=== PATIENT | male | born 1940 | race Caucasian/White ===

== ENCOUNTER 2016-07-09 14:40 | Inpatient (IN) | payer OTHER ==
[~2016-07-09] VITALS: Ht 170.2 cm; Wt 130.0 kg
[~2016-07-09 14:40] MED LIST: ALL300 PO; APR50 PO; ASPI81TA28 PO; CHOL2000 PO; CLX/20 PO; CRG3125 PO; LPT10 PO; NRV/5 PO; PANT20TA PO; SYN50 PO
[2016-07-09] MEDS ORDERED: ASPIRIN 81 MG CHEW PO STA (15:17)
[2016-07-09] MEDS ORDERED: SODIUM CHLORIDE 0.9% 1000ML 1,000 ML IV STA (15:17)
[2016-07-09] MEDS ORDERED: ALBUT/IPRATROP 3MG/0.5MG NEB 3 ML VIAL INH STA (15:17)
--- NOTE | 2016-07-09 15:20 | EMERGENCY ROOM VISIT NOTE ---
History Report prepared by Nelaibdarion: Shelly Aguiar Under the Supervision of: Dr. Dat Curiel D.O. First contact with patient: 15:07 Chief Complaint: COUGH Stated Complaint: COLD, COUGH, CHEST/BACK PAIN, SOB Nursing Triage Summary: Pt presents with nasal congestion, prod cough of yellow sputum, sob, chills, lower back pain. Sx began last Fri. History of Present Illness The patient is a 76 year old male who presents to the Emergency Room with complaints of a worsening cough for the past 5 days. He reports he began experiencing cold symptoms with nasal congestion, chills and a productive cough , but now he is experiencing shortness of breath with the cough and lower back pain. He reports he can normally walk without difficulty, but no he gets short of breath "just walking to the door". The patient admits to a history of pneumonia and reports he received a flu shot this year and the pneumococcal vaccine. He denies any history of GA's. He denies any increased swelling in his legs. His primary care physician is Dr. Stout at [facility]. He states he tried to get an appointment with Dr. Stout today, but could not get in anywhere due to the clinics being busy after the holidays. 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 A total of ten systems were reviewed and were otherwise negative. Past Medical & Surgical Medical Problems: (1) Anemia, unspecified (2) ASCVD (arteriosclerotic cardiovascular disease) (3) BPH without obstruction/lower urinary tract symptoms (4) Carpal tunnel syndrome (5) Diastolic heart failure (6) GERD (gastroesophageal reflux disease) (7) Gout (8) Hypertension (9) Insomnia (10) LEFT BB BLOCK NEC (11) Major depression (12) Obstructive sleep apnea on CPAP (13) Osteoarthrosis (14) Restless leg syndrome (15) SOB (shortness of breath) Surgical Problems: (1) H/O cataract removal with insertion of prosthetic lens (2) H/O sinus surgery (3) History of bilateral knee arthroplasty (4) History of total right hip arthroplasty (5) Hx of cholecystectomy Family History Hypertension Social History Smoking Status: Never Smoker Drug Use: none Marital Status: Housing Status: lives with family Occupation Status: retired Current/Historical Medications Scheduled Allopurinol (Allopurinol), 300 MG PO DAILY Amlodipine Besylate (Amlodipine Besylate), 5 MG PO DAILY Aspirin (Aspirin Ec), 81 MG PO DAILY Atorvastatin (Atorvastatin Calcium), 5 MG PO DAILY Carvedilol (Carvedilol), 3.125 MG PO BID Cholecalciferol (Vitamin D3), 2,000 INTER.UNIT PO DAILY Citalopram (Citalopram Hydrobromide), 20 MG PO DAILY Hydralazine Hcl (Apresoline), 25 MG PO BID Levothyroxine Sodium (Synthroid), 50 MCG PO DAILY Scheduled PRN Meloxicam (Mobic), 15 MG PO DAILY PRN for Pain Allergies Coded Allergies: No Known Allergies (Verified , 07/09/16) Physical Exam Vital Signs Date Time Temp Pulse Resp B/P Pulse Ox O2 Delivery O2 Flow Rate FiO2 07/09/16 18:28 65 22 167/90 91 Room Air 07/09/16 17:55 85 07/09/16 16:40 66 07/09/16 16:12 95 Room Air 07/09/16 15:59 97 07/09/16 14:50 96 Room Air 07/09/16 14:50 37.0 77 24 183/91 96 Room Air Physical Exam GENERAL: Awake, alert, well-appearing, in no acute distress HENT: Normocephalic, atraumatic. Oropharynx unremarkable. Nasal crusting. EYES: Normal conjunctiva. Sclera non-icteric. NECK: Supple. No nuchal rigidity. FROM. No JVD. RESPIRATORY: No respiratory distress. Lung sounds diminished throughout, no rails or rhonchi. CARDIAC: Regular rate, normal rhythm. Extremities warm and well perfused. Pulses equal. ABDOMEN: Soft, non-distended. No tenderness to palpation. No rebound or guarding. No masses. RECTAL: Deferred. MUSCULOSKELETAL: Chest examination reveals no tenderness. The back is symmetrical on inspection without obvious abnormality. There is no CVA tenderness to palpation. No joint edema. LOWER EXTREMITIES: Calves are equal size bilaterally and non-tender. +1 pitting edema. No discoloration. NEURO: Normal sensorium. No sensory or motor deficits noted. SKIN: No rash or jaundice noted. Medical Decision & Procedures ER Provider Diagnostic Interpretation: This X-Ray was reviewed and interpreted by myself and the radiologist. CHEST 2 VIEWS ROUTINE IMPRESSION: Chronic change. No acute process. Electronically signed by: Amadeo Manzo M.D. 07/09/2016 5:05 PM Laboratory Results 07/09/16 15:45 Red Blood Count 4.24, Mean Corpuscular Volume 92.0, Mean Corpuscular Hemoglobin 32.3, Mean Corpuscular Hemoglobin Concent 35.1, Mean Platelet Volume 11.3, Neutrophils (%) (Auto) 70.7, Lymphocytes (%) (Auto) 15.9, Monocytes (%) (Auto) 8.6, Eosinophils (%) (Auto) 4.1, Basophils (%) (Auto) 0.6, Neutrophils # (Auto) 5.04, Lymphocytes # (Auto) 1.13, Monocytes # (Auto) 0.61, Eosinophils # (Auto) 0.29, Basophils # (Auto) 0.04 07/09/16 15:45 Test 07/09/16 15:45 07/09/16 15:59 07/09/16 17:40 White Blood Count 7.12 K/uL (4.8-10.8) Red Blood Count 4.24 M/uL (4.7-6.1) Hemoglobin 13.7 g/dL (14.0-18.0) Hematocrit 39.0 % (42-52) Mean Corpuscular Volume 92.0 fL (80-100) Mean Corpuscular Hemoglobin 32.3 pg (25-34) Mean Corpuscular Hemoglobin Concent 35.1 g/dl (32-36) Platelet Count 146 K/uL (130-400) Mean Platelet Volume 11.3 fL (7.4-10.4) Neutrophils (%) (Auto) 70.7 % Lymphocytes (%) (Auto) 15.9 % Monocytes (%) (Auto) 8.6 % Eosinophils (%) (Auto) 4.1 % Basophils (%) (Auto) 0.6 % Neutrophils # (Auto) 5.04 K/uL (1.4-6.5) Lymphocytes # (Auto) 1.13 K/uL (1.2-3.4) Monocytes # (Auto) 0.61 K/uL (0.11-0.59) Eosinophils # (Auto) 0.29 K/uL (0-0.5) Basophils # (Auto) 0.04 K/uL (0-0.2) RDW Standard Deviation 47.8 fL (36.4-46.3) RDW Coefficient of Variation 14.1 % (11.5-14.5) Immature Granulocyte % (Auto) 0.1 % Immature Granulocyte # (Auto) 0.01 K/uL (0.00-0.02) Anion Gap 9.0 mmol/L (3-11) Est Creatinine Clear Calc Drug Dose 81.7 ml/min Estimated GFR () 84.4 Estimated GFR (Non- 72.8 BUN/Creatinine Ratio 16.7 (10-20) Calcium Level 7.4 mg/dl (8.5-10.1) Total Bilirubin 0.6 mg/dl (0.2-1) Aspartate Amino Transf (AST/SGOT) 20 U/L (15-37) Alanine Aminotransferase (ALT/SGPT) 23 U/L (12-78) Alkaline Phosphatase 63 U/L (45-117) Total Protein 6.4 gm/dl (6.4-8.2) Albumin 3.5 gm/dl (3.4-5.0) Globulin 2.9 gm/dl (2.5-4.0) Albumin/Globulin Ratio 1.2 (0.9-2) Bedside Troponin I 0.020 ng/ml (0-0.045) FG-Zrm-Q-Type Natriuretic Peptide 487 pg/ml (0-1800) Urine Color YELLOW Urine Appearance CLEAR (CLEAR) Urine pH 5.5 (4.5-7.5) Urine Specific [place] 1.023 (1.000-1.030) Urine Protein TRACE (NEG) Urine Glucose (UA) NEG (NEG) Urine Ketones NEG (NEG) Urine Occult Blood NEG (NEG) Urine Nitrite NEG (NEG) Urine Bilirubin NEG (NEG) Urine Urobilinogen NEG (NEG) Urine Leukocyte Esterase NEG (NEG) Urine WBC (Auto) 1-5 /hpf (0-5) Urine RBC (Auto) 0-4 /hpf (0-4) Urine Hyaline Casts (Auto) 1-5 /lpf (0-5) Urine Epithelial Cells (Auto) 20-30 /lpf (0-5) Urine Bacteria (Auto) NEG (NEG) Laboratory results reviewed by me Medications Administered Medications (Trade) Dose Ordered Sig/Nini Route Start Time Stop Time Status Last Admin Dose Admin Albuterol/ Ipratropium (Duoneb) 3 ml NOW STAT INH 07/09/16 15:17 07/09/16 15:20 DC 07/09/16 16:24 3 ML Aspirin 81 mg 81 mg NOW STAT PO 07/09/16 15:17 07/09/16 15:20 DC 07/09/16 16:24 81 MG Sodium Chloride (Nss 1000ml) 1,000 ml @ 150 mls/hr Q6H40M STAT IV 07/09/16 15:17 07/09/16 19:34 DC 07/09/16 15:17 150 MLS/HR ECG Indication: SOB/dyspnea Rate (beats per minute): 66 Rhythm: sinus rhythm Findings: 1st degree AV block, LBBB, other (negative scarbossa criteria, otherwise no acute findings) Comparison ECG Date: no prior available ED Course 1510: The patient was evaluated in room B4. A complete history and physical exam was performed. 1517: NSS 1000 ml @ 150 mls/hr IV, Aspirin 81 mg PO, DuoNeb 3 ml INH. 1655: I reevaluated the patient. He is currently in X-Ray. I will try back later. 1718: I reevaluated the patient. He is feeling a little better and his Oxygen saturation is looking good. Nursing will have him do an ambulation trial shortly. 1750: Nursing informed me the patient was able to ambulate about 10 feet with assistance. 1825: I discussed the patients case with Doreen Lozano PA-C, [facility] Hospitalist. The patient will be further evaluated. Medical Decision Prior records/ancillary studies reviewed. Triage Nursing notes reviewed. Additional history obtained from the family. The patient's history was concerning for respiratory difficulties. Differential diagnosis: Etiologies such as infections, reactive airway disease, pneumonia, pneumothorax , COPD, CHF, cardiac ischemia, pulmonary embolism, musculoskeletal, gastrointestinal, as well as others were entertained. MDM: 76-year-old male comes here with 2 day complaint of progressively worsening dyspnea. He states he's had URI symptoms with nasal congestion and cough that is nonproductive to yellow mucus. The shortness of breath also comes when he lays down and try to get some sleep. He has been unable to get much sleep the last 2 days. He presents to the emergency department with normoxia at rest. However has hypoxia down to less than 86% with minimal movement. Feels better after a neb. Chest x-ray is unrevealing for pneumonia lab work is significant for mild elevation in natruretic peptide and troponin. Cannot rule out CHF or ACS. Discussed with hospitalist for admission. The patient's presentation and history is c/w the impression provided. A partial list of DDx that has been considered is listed above. By the evaluation outlined above other emergent etiologies such as those listed in the differential, as well as others, were deemed relatively unlikely. The patient has been informed about today's findings. All questions were answered to satisfaction and understanding. They are pleased with the care provided. Patient education and return instructions were discussed as per my usual and the patient was discharged in stable condition as agreed upon by the patient. The patient was referred for close follow-up and informed that they will need to call to schedule appointment during the next business hours. The chart was completed utilizing a scribe and [employer] Speech voice recognition software. Utilizing these services results in errors at time as they are imperfect. Grammatical errors, random word insertions, pronoun errors, and incomplete sentences are an occasional consequence of this system due to software limitations, ambient noise, and hardware issues. Any formal questions or concerns about the content, text, or information contained within the body of this dictation should be directly addressed to the physician for clarification. Consults Time Called: 1819 Consulting Physician: [facility]-C, [facility] Returned Call: 1824 I discussed the patients case with [facility]en [facility]-C, [facility]. The patient will be further evaluated. Impression Primary Impression: Respiratory failure with hypoxia Additional Impressions: Bronchitis, probable CHF, probable ACS Scribe Attestation The scribe's documentation has been prepared under my direction and personally reviewed by me in its entirety. I confirm that the note above accurately reflects all work, treatment, procedures, and medical decision making performed by me. Departure Information Dispostion Being Evaluated By Hospitalist Referrals No Doctor, Assigned (PCP) Patient Instructions A Signature Page, My [facility]
[2016-07-09 16:16] LABS: BASO % 0.6 %; BASO ABS # 0.04 K/uL (0-0.2); COMPLETE YES; EOS % 4.1 %; IG% 0.1 %; LYMPH % 15.9 %; LYMPH ABS # 1.13 K/uL (1.2-3.4); MEAN CORPUSCULAR HEMOGLOBIN 32.3 pg (25-34); MEAN CORPUSCULAR HGB CONC 35.1 g/dl (32-36); MEAN PLATELET VOLUME 11.3 fL (7.4-10.4); MONO % 8.6 %; NEUT % 70.7 %; PLATELET COUNT 146 K/uL (130-400); RED BLOOD COUNT 4.24 M/uL (4.7-6.1); WHITE BLOOD COUNT 7.12 K/uL (4.8-10.8)
[2016-07-09 16:19] LABS: POINT OF CARE TROPONIN I 0.02 ng/ml (0-0.045)
[2016-07-09 16:35] LABS: BUN/CREATININE RATIO 16.7 (10-20); CALCIUM 7.4 mg/dl (8.5-10.1)
[2016-07-09 16:38] LABS: ALB/GLOB RATIO 1.2 (0.9-2)
--- NOTE | 2016-07-09 17:07 | DIAGNOSTIC IMAGING REPORT ---
CHEST 2 VIEWS ROUTINE CLINICAL HISTORY: EVALUATE RESPIRATORY DISTRESS. DYSPNEA dyspnea COMPARISON STUDY: 02/04/2016 FINDINGS: Mild stable cardia megaly. Stable tortuosity thoracic aorta. Diaphragms smooth. Lungs are clear. IMPRESSION: Chronic change. No acute process. Electronically signed by: Amadeo Manzo M.D. 07/09/2016 5:05 PM
[2016-07-09] MEDS ORDERED: APR25 PO (17:23)
[2016-07-09 18:15] LABS: URINE APPEARANCE CLEAR (CLEAR); URINE BILIRUBIN NEG (NEG); URINE COLOR YELLOW; URINE EPITHELIAL CELL AUTO 20-30 /lpf (0-5); URINE NITRITE NEG (NEG); URINE PH 5.5 (4.5-7.5); URINE SPECIFIC GRAVITY 1.023 (1.000-1.030); UROBILINOGEN NEG (NEG)
[2016-07-09 18:17] LABS: MANUAL MICROSCOPIC REQUIRED? NO; REVIEW REQ? NO
[2016-07-09] MEDS ORDERED: MELOXICAM 7.5 MG TAB PO PRN (19:00)
[2016-07-09] MEDS ORDERED: OPTIRAY 320 IV PRN (19:00)
[2016-07-09] MEDS ORDERED: NITROGLYCERIN 0.4 MG SL PER TAB CHARGE SL PRN (19:00)
[2016-07-09] MEDS ORDERED: ONDANSETRON INJ 2 MG/ML 2 ML VIAL IV PRN (19:00)
[2016-07-09] MEDS ORDERED: ACETAMINOPHEN 325 MG TAB PO PRN (19:00)
[2016-07-09] MEDS ORDERED: MELO15TA4 PO (19:02)
--- NOTE | 2016-07-09 19:27 | History and Physical ---
History & Physical Date & Time of Service: Jul 09, 2016 at 19:04 Chief Complaint: Cold, Cough, Chest/Back Pain, Sob Primary Care Physician: Musa Stout M.D. History of Present Illness Source: patient This is a 76 y/o male with PMHx of CKD stage 3, Diastolic CHF, NAHEED on CPAP HS, Hypothyroidism, HTN, Dyslipidemia and other problems as outlined below who presents to the ED c/o worsening SOB x 1 day. Pt reports that yesterday he developed SOB that is aggravated with exertion. At baseline he is able to ambulate far distances with no SOB however today he was only able to take 10 steps without stopping to catch his breath. Sxs are assoc with body aches, 4 days of a cough that is productive of thick yellow sputum and nasal congestion. He has been taking an OTC "cold medicine" that has not been offering any relief. Pt has no history of sick contacts. He got his flu shot this year and has no history of tobacco use. No PMHx of asthma or COPD. Pt denies fever/chills , diaphoresis, chest pain, palpitations, wheezing, abd pain, N/V, bowel or bladder issues, LE edema, calf pain, lightheadedness/dizziness. In the ED, pt is hypoxic to 85% on room air with ambulation to bathroom. He is afebrile with no leukocytosis. K+ 3.0. Ca 7.4. BNP WNL. Trop 0.020. CXR negative for acute process. EKG 1* AV block with LAD and LBBB. Pt appears stable and will be admitted for further evaluation and treatment. Past Medical/Surgical History Medical Problems: (1) Anemia, unspecified Status: Chronic (2) ASCVD (arteriosclerotic cardiovascular disease) Status: Chronic (3) BPH without obstruction/lower urinary tract symptoms Status: Chronic (4) Carpal tunnel syndrome Status: Chronic (5) Diastolic heart failure Status: Chronic (6) GERD (gastroesophageal reflux disease) Status: Chronic (7) Gout Status: Chronic (8) Hypertension Status: Chronic (9) Insomnia Status: Chronic (10) LEFT BB BLOCK NEC Status: Chronic (11) Major depression Status: Chronic (12) Obstructive sleep apnea on CPAP Status: Chronic (13) Osteoarthrosis Status: Chronic (14) Restless leg syndrome Status: Chronic Surgical Problems: (1) H/O cataract removal with insertion of prosthetic lens Status: Resolved (2) H/O sinus surgery Status: Resolved (3) History of bilateral knee arthroplasty Status: Resolved (4) History of total right hip arthroplasty Status: Resolved (5) Hx of cholecystectomy Status: Resolved Family History Hypertension Social History Smoking Status: Never Smoker Alcohol Use: none Drug Use: none Marital Status: Housing status: lives with family Occupational Status: retired Immunizations History of Influenza Vaccine: Yes Influenza Vaccine Date: Apr 06, 2012 History of Tetanus Vaccine?: Unknown Tetanus Immunization Date: Jul 10, 2004 History of Pneumococcal: Yes Pneumococcal Date: Jul 10, 2007 History of Hepatitis B Vaccine: Unknown Multi-Drug Resistant Organisms History of MDRO: No Allergies Coded Allergies: No Known Allergies (Verified , 07/09/16) Home Medications Scheduled Allopurinol (Allopurinol), 300 MG PO DAILY Amlodipine Besylate (Amlodipine Besylate), 5 MG PO DAILY Aspirin (Aspirin Ec), 81 MG PO DAILY Atorvastatin (Atorvastatin Calcium), 5 MG PO DAILY Carvedilol (Carvedilol), 3.125 MG PO BID Cholecalciferol (Vitamin D3), 2,000 INTER.UNIT PO DAILY Citalopram (Citalopram Hydrobromide), 20 MG PO DAILY Hydralazine Hcl (Apresoline), 25 MG PO BID Levothyroxine Sodium (Synthroid), 50 MCG PO DAILY Scheduled PRN Meloxicam (Mobic), 15 MG PO DAILY PRN for Pain Review of Systems Constitutional: + fatigue, + problem reported (body aches), No chills, No fever , No sweats, No weakness Eyes: No worsening of vision ENT: + nasal symptoms, No sore throat Respiratory: + cough, + dyspnea on exertion, + shortness of breath, + sputum, No dyspnea at rest, No wheezing Cardiovascular: No chest pain, No claudication, No edema, No palpitations Abdomen: No constipation, No diarrhea, No nausea, No pain, No vomiting Musculoskeletal: No calf pain, No swelling Genitourinary - Male: No dysuria Neurologic: No weakness Psychiatric: No depression symptoms Endocrine: + fatigue Hematologic / Lymphatic: No abnormal bleeding/bruising Integumentary: No new/changing skin lesions Physical Exam Vital Signs Date Time Temp Pulse Resp B/P Pulse Ox O2 Delivery O2 Flow Rate FiO2 07/09/16 18:28 65 22 167/90 91 Room Air 07/09/16 17:55 85 07/09/16 16:40 66 07/09/16 16:12 95 Room Air 07/09/16 15:59 97 07/09/16 14:50 96 Room Air 07/09/16 14:50 37.0 77 24 183/91 96 Room Air General Appearance: WD/WN, no apparent distress, + obese, + pertinent finding ( Pt is sitting in bed in NAD) Head: normocephalic, atraumatic Eyes: normal inspection ENT: hearing grossly normal Neck: supple Respiratory/Chest: chest non-tender, lungs clear, normal breath sounds, no respiratory distress, + pertinent finding (no wheezing or crackles noted ) Cardiovascular: regular rate, rhythm, no murmur Abdomen/GI: normal bowel sounds, non tender, soft Back: normal inspection Extremities/Musculoskelatal: normal inspection, no calf tenderness, + swelling (1+ edema to bilat LE) Neurologic/Psych: alert, normal mood/affect, oriented x 3 Skin: normal color, warm/dry Diagnostics Laboratory Results Results Past 24 Hours Test 07/09/16 15:45 07/09/16 15:59 07/09/16 17:40 Range/Units White Blood Count 7.12 4.8-10.8 K/uL Red Blood Count 4.24 4.7-6.1 M/uL Hemoglobin 13.7 14.0-18.0 g/dL Hematocrit 39.0 42-52 % Mean Corpuscular Volume 92.0 80-100 fL Mean Corpuscular Hemoglobin 32.3 25-34 pg Mean Corpuscular Hemoglobin Concent 35.1 32-36 g/dl Platelet Count 146 130-400 K/uL Mean Platelet Volume 11.3 7.4-10.4 fL Neutrophils (%) (Auto) 70.7 % Lymphocytes (%) (Auto) 15.9 % Monocytes (%) (Auto) 8.6 % Eosinophils (%) (Auto) 4.1 % Basophils (%) (Auto) 0.6 % Neutrophils # (Auto) 5.04 1.4-6.5 K/uL Lymphocytes # (Auto) 1.13 1.2-3.4 K/uL Monocytes # (Auto) 0.61 0.11-0.59 K/uL Eosinophils # (Auto) 0.29 0-0.5 K/uL Basophils # (Auto) 0.04 0-0.2 K/uL RDW Standard Deviation 47.8 36.4-46.3 fL RDW Coefficient of Variation 14.1 11.5-14.5 % Immature Granulocyte % (Auto) 0.1 % Immature Granulocyte # (Auto) 0.01 0.00-0.02 K/uL Sodium Level 145 136-145 mmol/L Potassium Level 3.0 3.5-5.1 mmol/L Chloride Level 107 98-107 mmol/L Carbon Dioxide Level 29 21-32 mmol/L Anion Gap 9.0 3-11 mmol/L Blood Urea Nitrogen 17 7-18 mg/dl Creatinine 1.00 0.60-1.40 mg/dl Est Creatinine Clear Calc Drug Dose 81.7 ml/min Estimated GFR () 84.4 Estimated GFR (Non- 72.8 BUN/Creatinine Ratio 16.7 10-20 Random Glucose 107 70-99 mg/dl Calcium Level 7.4 8.5-10.1 mg/dl Total Bilirubin 0.6 0.2-1 mg/dl Aspartate Amino Transf (AST/SGOT) 20 15-37 U/L Alanine Aminotransferase (ALT/SGPT) 23 12-78 U/L Alkaline Phosphatase 63 45-117 U/L Total Protein 6.4 6.4-8.2 gm/dl Albumin 3.5 3.4-5.0 gm/dl Globulin 2.9 2.5-4.0 gm/dl Albumin/Globulin Ratio 1.2 0.9-2 Bedside Troponin I 0.020 0-0.045 ng/ml EI-Rwz-[id number]-Type Natriuretic Peptide 487 0-1800 pg/ml Urine Color YELLOW Urine Appearance CLEAR CLEAR Urine pH 5.5 4.5-7.5 Urine Specific [place] 1.023 1.000-1.030 Urine Protein TRACE NEG Urine Glucose (UA) NEG NEG Urine Ketones NEG NEG Urine Occult Blood NEG NEG Urine Nitrite NEG NEG Urine Bilirubin NEG NEG Urine Urobilinogen NEG NEG Urine Leukocyte Esterase NEG NEG Urine WBC (Auto) 1-5 0-5 /hpf Urine RBC (Auto) 0-4 0-4 /hpf Urine Hyaline Casts (Auto) 1-5 0-5 /lpf Urine Epithelial Cells (Auto) 20-30 0-5 /lpf Urine Bacteria (Auto) NEG NEG Diagnostic Radiology CXR IMPRESSION: Chronic change. No acute process. EKG EKG: Sinus rhythm with 1* AV block, LAD and LBBB; when compared with EKG from PVCs are no longer present Impression Assessment and Plan WORSENING SOB SECONDARY TO POSSIBLE BRONCHITIS; R/O PE pt presents with body aches, prod cough and worsening SOB -admit to telemetry -hypoxic with exertion on room air; pt is afebrile with no leukocytosis -CXR negative for acute process -obtain CT chest to r/o PE -Initial trop negative; cont to monitor with serial [place] -BNP WNL; obtain echo to evaluate CHF -check flu PCR -start doxy and duonebs -supplemental O2 if needed -monitor HYPOKALEMIA -K+ 3.0; replete -continue to monitor daily HYPOCALCEMIA -Ca+ 7.4 -check vitamin D level -cont vitamin D supplementation -monitor daily CKD STAGE 3 -creatinine is at baseline around 1.0 -continue to monitor with daily prp and avoid nephrotoxic agents when able DIASTOLIC CHF -mild LE edema; BNP WNL -echo 2012 EF 55-60% with mild LVH, mild MR and grade 1 diastolic dysfunction; repeat echo -cont hydralazine and BB -low sodium diet -monitor I&Os and daily weights NAHEED on CPAP -initial setup of CPAP HYPOTHYROIDISM -cont levothyroxine DEPRESSION -stable -cont Celexa HTN -BP stable -cont carvedilol, Norvasc and hydralazine -monitor DYSLIPIDEMIA -cont statin DVT PROPHYLAXIS -subq heparin CODE STATUS -FULL CODE status per discussion with patient upon admission DISPO -Pt seen in collaboration with Dr. Jeffery. Please see his addendum for further details. Thanks! Agree with above H and P. Briefly 76M presents with cough going on for few days and today felt sob on exertion and dizzy and came to ER. in Er was hypoxic in room air. Currently resting comfortably and hemodynamically stable. No chest pain or sob.Afebrile. p/e Ge alert and awake. Moaning CVS s 1 and s2 heard regular no murmurs' Rs cta b/l no wheezing no crackles abd benign ext no edema a/p sob bronchitis? will to ct chest to rule out PE empirically start on abx, nebs NAHEED on cpap VTE Prophylaxis VTE Risk Assessment Done? Y/N: Yes Risk Level: Moderate
[2016-07-09] MEDS ORDERED: POTASSIUM CHLORIDE 10 MEQ TABCR PO SCH (20:00)
[2016-07-09 20:20] VITALS: BP 214/97; PULSE 70; TEMP 37; O2SAT 97; Ht 170.2 cm; Wt 130.0 kg
[2016-07-09] MEDS: ALBUT/IPRATROP 3MG/0.5MG NEB 3 ML VIAL INH SCH (20:30)
--- NOTE | 2016-07-09 22:16 | DIAGNOSTIC IMAGING REPORT ---
CT ANGIOGRAPHY OF THE CHEST, PULMONARY EMBOLUS PROTOCOL CLINICAL HISTORY: Chest pain, shortness of breath and cough. COMPARISON STUDY: Chest CT August 17, 2014. TECHNIQUE: Following IV administration of 119 mL of [id number]-[id number], helical axial images of the chest were obtained utilizing the 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 protocol. Maximal intensity projections and sagittal and coronal reformats were viewed on an independent 3D workstation. IV contrast was administered without complication. CT DOSE: 744.41 mGy.cm FINDINGS: No pulmonary emboli are identified. There is no evidence of thoracic aortic dissection. The heart is moderately enlarged. There is moderate coronary artery calcification. There is no pericardial effusion. No pneumothorax or pleural effusion is present. No enlarged thoracic lymph nodes are present. There are several tree-in-bud nodules within the right upper lobe and a few small ill-defined nodules within the right lower lobe shown on axial image 117 of 296. The central airways are patent. The bony thorax and upper abdomen are unremarkable. The gallbladder is surgically absent. IMPRESSION: 1. No pulmonary emboli identified. 2. Minimal tree-in-bud nodules within the right upper lobe and a few small ill-defined nodules within the right lower lobe. The findings suggest a mild infectious process such as bronchiolitis. A follow-up chest CT in 6 months to ensure resolution is recommended. 3. Moderate cardiomegaly and moderate coronary artery calcification. Electronically signed by: Kyler Lim M.D. 07/09/2016 10:14 PM
[2016-07-09 22:26] LABS: INFLUENZA A PCR Neg for Influ A (NEG); INFLUENZA B PCR Neg for Influ B (NEG)
[2016-07-09] MEDS: DOXYCYCLINE HYCLATE 100 MG CAP PO SCH (22:53)
[2016-07-09] MEDS: POTASSIUM CHLR 10 MEQ / WTR 10 MEQ in PREMIXED WATER 100 ML IV SCH (22:54)
[2016-07-09] MEDS: CARVEDILOL 3.125 MG TAB PO SCH (22:54)
[2016-07-09 23:06] LABS: PROTHROMBIN TIME (PATIENT) 10.5 SECONDS (9.0-12.0)
[2016-07-09 23:08] VITALS: PULSE 84; O2SAT 95
[2016-07-10] VITALS (12 sets, daily range): BP systolic 167–211; BP diastolic 81–101; PULSE 66–94; TEMP 36.4–36.9; O2SAT 92–96
[2016-07-10] MEDS: HEPARIN SOD 5000 UNIT/0.5 ML CARP SQ SCH ×4 (00:22→22:11)
[2016-07-10] MEDS: POTASSIUM CHLR 10 MEQ / WTR 10 MEQ in PREMIXED WATER 100 ML IV SCH ×2 (00:22→01:29)
[2016-07-10 04:15] LABS: HEMATOCRIT 38.2 % (42-52); MEAN CELL VOLUME 90.7 fL (80-100); MEAN CORPUSCULAR HEMOGLOBIN 31.8 pg (25-34); MEAN CORPUSCULAR HGB CONC 35.1 g/dl (32-36); MEAN PLATELET VOLUME 10.7 fL (7.4-10.4); PLATELET COUNT 141 K/uL (130-400); RED BLOOD COUNT 4.21 M/uL (4.7-6.1); WHITE BLOOD COUNT 9.52 K/uL (4.8-10.8)
[2016-07-10 04:33] LABS: BLOOD UREA NITROGEN 12 mg/dl (7-18); BUN/CREATININE RATIO 12.5 (10-20); CALCIUM 7.3 mg/dl (8.5-10.1); CARBON DIOXIDE 29 mmol/L (21-32); CHLORIDE 106 mmol/L (98-107); GLUCOSE 100 mg/dl (70-99); POTASSIUM 3.3 mmol/L (3.5-5.1); SODIUM 145 mmol/L (136-145)
[2016-07-10] MEDS: LEVOTHYROXINE 50 MCG TAB PO SCH (05:54)
[2016-07-10] MEDS ORDERED: POTASSIUM CHLORIDE 20 MEQ TABCR PO STA (07:29)
[2016-07-10] MEDS: DOXYCYCLINE HYCLATE 100 MG CAP PO SCH ×2 (07:34→19:50)
[2016-07-10] MEDS: CHOLECALCIFEROL 1000 INTER.UNIT TAB PO SCH (07:35)
[2016-07-10] MEDS: CITALOPRAM 20 MG TAB PO SCH (07:36)
[2016-07-10] MEDS: ALLOPURINOL 300 MG TAB PO SCH (07:36)
[2016-07-10] MEDS: ASPIRIN 81 MG ECTAB PO SCH (07:36)
[2016-07-10] MEDS: AMLODIPINE BESYLATE 5 MG TAB PO SCH (07:37)
[2016-07-10] MEDS: ATORVASTATIN 10 MG TAB PO SCH (07:40)
[2016-07-10] MEDS: ALBUT/IPRATROP 3MG/0.5MG NEB 3 ML VIAL INH SCH ×4 (07:43→21:27)
[2016-07-10] MEDS: CEFTRIAXONE SOD INJ 1 GM in DEXTROSE 5% ADD-VANTAGE 50ML 50 ML IV SCH (08:15)
[2016-07-10] MEDS: CARVEDILOL 3.125 MG TAB PO SCH ×2 (08:15→19:50)
[2016-07-10] MEDS ORDERED: HydrALAZINE HCL 20 MG/ML VIAL IV. PRN (11:00)
--- NOTE | 2016-07-10 19:54 | Progress Note ---
Internal Med Progress Note Date of Service: Jul 10, 2016. Provider Documentation: SUBJECTIVE: sob improving has some dry cough afebrile no chest pain no nausea OBJECTIVE: Vital Signs-as noted below Exam: General-alert and oriented x 3 ENT-normal hearing Neck-no neck masses Lungs-cta b/l no wheezing or crackles Heart-s1 and s2 heard regular rate and rhythm, no murmurs Abdomen-soft bowel sounds present non tender no distension Extremities-no edema no erythema Neuro-alert and awake moves extremities Lab data as noted below. ASSESSMENT & PLAN: WORSENING SOB SECONDARY TO POSSIBLE BRONCHITIS; R/O PE CTA chest no PE but shows bronchiolitis on rocephin and doxycyline will add low dose steroids nebs close monitor HYPOKALEMIA replaced HYPOCALCEMIA -Ca+ 7.4 vitamin D 25. adequate continue vitamin d supplementation will start on calcium supplements CKD STAGE 3 -creatinine is at baseline around 1.0 will monitor DIASTOLIC CHF -mild LE edema; BNP WNL echo 2012 EF 55-60% with mild LVH, mild MR and grade 1 diastolic dysfunction; will follow repeat echo will cont hydralazine and BB low sodium diet will monitor I&Os and daily weights NAHEED on CPAP initial setup of CPAP HYPOTHYROIDISM on levothyroxine DEPRESSION stable on Celexa HTN will continue home meds iv hydralazine prn DYSLIPIDEMIA on statin DVT PROPHYLAXIS subq heparin CODE STATUS FULL CODE DISPO to be determined Vital Signs: Date Time Temp Pulse Resp B/P Pulse Ox O2 Delivery O2 Flow Rate FiO2 07/10/16 16:16 77 16 95 Room Air 07/10/16 15:43 36.8 81 20 171/93 92 Room Air 07/10/16 15:40 Room Air 07/10/16 12:00 Room Air 07/10/16 11:51 36.5 66 18 167/81 95 Room Air 07/10/16 11:14 72 16 95 Room Air 07/10/16 08:42 67 20 174/94 95 Room Air 73 180/89 07/10/16 08:00 Room Air 07/10/16 07:47 36.9 73 18 194/101 94 Room Air 07/10/16 07:43 70 16 96 Room Air 07/10/16 04:58 36.7 68 18 196/94 93 2.0 195/92 07/10/16 04:00 Room Air 07/10/16 00:29 36.7 70 20 174/86 93 Room Air 07/10/16 00:00 Room Air 07/09/16 23:08 84 18 95 Room Air 07/09/16 20:20 37.0 70 20 214/97 97 Room Air Lab Results: Results Past 24 Hours Test 07/09/16 20:40 07/09/16 21:45 07/09/16 22:07 07/09/16 22:38 Range/Units Influenza Type A (RT-PCR) Neg for Influ A NEG Influenza Type B (RT-PCR) Neg for Influ B NEG Creatine Kinase MB Ratio 0-3.0 Creatine Kinase MB 1.2 0.5-3.6 ng/ml Troponin I 0.029 0-0.045 ng/ml Prothrombin Time 10.5 9.0-12.0 SECONDS Prothromb Time International Ratio 1.0 0.9-1.1 Activated Partial Thromboplast Time 26.2 21.0-31.0 SECONDS Partial Thromboplastin Ratio 1.0 Test 07/10/16 03:45 07/10/16 04:07 Range/Units Creatine Kinase MB Ratio 0-3.0 White Blood Count 9.52 4.8-10.8 K/uL Red Blood Count 4.21 4.7-6.1 M/uL Hemoglobin 13.4 14.0-18.0 g/dL Hematocrit 38.2 42-52 % Mean Corpuscular Volume 90.7 80-100 fL Mean Corpuscular Hemoglobin 31.8 25-34 pg Mean Corpuscular Hemoglobin Concent 35.1 32-36 g/dl RDW Standard Deviation 46.5 36.4-46.3 fL RDW Coefficient of Variation 14.0 11.5-14.5 % Platelet Count 141 130-400 K/uL Mean Platelet Volume 10.7 7.4-10.4 fL Sodium Level 145 136-145 mmol/L Potassium Level 3.3 3.5-5.1 mmol/L Chloride Level 106 98-107 mmol/L Carbon Dioxide Level 29 21-32 mmol/L Anion Gap 10.0 3-11 mmol/L Blood Urea Nitrogen 12 7-18 mg/dl Creatinine 1.00 0.60-1.40 mg/dl Est Creatinine Clear Calc Drug Dose 81.8 ml/min Estimated GFR () 84.4 Estimated GFR (Non- 72.8 BUN/Creatinine Ratio 12.5 10-20 Random Glucose 100 70-99 mg/dl Calcium Level 7.3 8.5-10.1 mg/dl Creatine Kinase MB 1.1 0.5-3.6 ng/ml Troponin I 0.026 0-0.045 ng/ml 25-Hydroxy Vitamin D Total 24.9 30-100 ng/ml
[2016-07-10] MEDS: METHYLPREDNISOLONE IV 20 MG in SYRINGE 0 ML IV SCH (22:10)
[2016-07-11] VITALS (14 sets, daily range): BP systolic 125–205; BP diastolic 74–105; PULSE 76–99; TEMP 36.6–37.2; O2SAT 91–94
[2016-07-11] MEDS ORDERED: LORAZEPAM INJ 0.5 MG in SYRINGE 0.25 ML IV STA (00:13)
[2016-07-11] MEDS ORDERED: AMLODIPINE BESYLATE 5 MG TAB PO ONE (00:15)
[2016-07-11] MEDS: LEVOTHYROXINE 50 MCG TAB PO SCH (06:02)
[2016-07-11] MEDS: HEPARIN SOD 5000 UNIT/0.5 ML CARP SQ SCH ×3 (06:03→21:59)
[2016-07-11] MEDS: ALBUT/IPRATROP 3MG/0.5MG NEB 3 ML VIAL INH SCH ×2 (07:52→11:37)
[2016-07-11] MEDS: CEFTRIAXONE SOD INJ 1 GM in DEXTROSE 5% ADD-VANTAGE 50ML 50 ML IV SCH (08:00)
[2016-07-11] MEDS: DOXYCYCLINE HYCLATE 100 MG CAP PO SCH ×2 (08:01→20:41)
[2016-07-11] MEDS: ALLOPURINOL 300 MG TAB PO SCH (08:01)
[2016-07-11] MEDS: AMLODIPINE BESYLATE 5 MG TAB PO SCH (08:01)
[2016-07-11] MEDS: ASPIRIN 81 MG ECTAB PO SCH (08:01)
[2016-07-11] MEDS: ATORVASTATIN 10 MG TAB PO SCH (08:02)
[2016-07-11] MEDS: CITALOPRAM 20 MG TAB PO SCH (08:02)
[2016-07-11] MEDS: CHOLECALCIFEROL 1000 INTER.UNIT TAB PO SCH (08:03)
[2016-07-11] MEDS: CARVEDILOL 3.125 MG TAB PO SCH (08:03)
[2016-07-11] MEDS: METHYLPREDNISOLONE IV 20 MG in SYRINGE 0 ML IV SCH ×2 (08:13→20:42)
--- NOTE | 2016-07-11 15:05 | ECHOCARDIOGRAM REPORT ---
*NOTICE TO RECEIVING LIBERTARIAN AGENCY This information is strictly Confidential and protected under [place] law. [place] law prohibits you from making any further disclosure of this information unless further disclosure is expressly permitted by the written consent of the person to whom it pertains or is authorized by law. A general authorization for the release of medical or other information is not sufficient for this purpose. Hospital accepts no responsibility if the information is made available to any other person, INCLUDING THE PATIENT. Interpretation Summary * Name: LLOYD CURTIS Study Date: 07/11/2016 01:01 PM BP: 155/90 mmHg * Patient Location: [facility]\S\[id number]\S\2 HR: 91 * : 1940 (M/d/yyy) Gender: Male Height: 67 in * Age: 76 yrs Ethnicity: GA Weight: 283 lb * Ordering Physician: Doreen Eubanks * Referring Physician: Self, Referred * Performed By: Lauren Hernandez RDCS * * Reason For Study: SOB * BSA: 2.3 m2 * History: SOB * -- Conclusions -- * Normal LV chamber size with mild concentric LVH. * Low normal LV systolic function, EF 50-55%. * Septal motion is consistent with conduction abnormality, otherwise, no segmental left ventricular wall motion abnormalities are noted. * Grade I diastolic dysfunction. * No significant valvular pathology. * Mild left atrial enlargement. Procedure Details * A contrast injection of Definity was performed to improve assessment of LV function. * Contrast was injected into an intravenous site in the left arm. * One vial of Definity ultrasound contrast was diluted in normal saline to a total volume of 10 ml. A total of '2' ml of solution was administered during imaging. * Lot # [id number] of Definity utilized for procedure. * Expiration date 1 DEC 21. * The attending nurse who injected the contrast agent was CHRISTINA CATES RN. Left Ventricle * The left ventricle is normal in size. * There is mild concentric left ventricular hypertrophy. * Ejection Fraction = 50-55%. * Left ventricular systolic function is low normal. * No segmental left ventricular wall motion abnormalities are noted. * Septal motion is consistent with conduction abnormality. Right Ventricle * The right ventricle is not well visualized. * The right ventricular systolic function is normal as assessed by tricuspid annular plane systolic excursion (TAPSE) (normal >1.5 cm). Atria * The left atrium is mildly dilated. * Right atrium not well visualized. * There is no evidence of atrial septal defect, but resolution does not allow assessment for a patent foramen ovale. Mitral Valve * The mitral valve is normal in structure and function. Tricuspid Valve * The tricuspid valve is not well visualized. * There is no tricuspid stenosis. * No tricuspid regurgitation. Aortic Valve * The aortic valve is not well visualized. * No hemodynamically significant valvular aortic stenosis. * There is no significant aortic regurgitation. Pulmonic Valve * The pulmonary valve is not well seen, but the Doppler examination is normal without significant regurgitation or stenosis. Great Vessels * The aortic root is normal size. Pericardium/Pleural * There is no pericardial effusion. Left Ventricular Diastolic Function * Grade I diastolic dysfunction, (abnormal relaxation pattern). MMode 2D Measurements and Calculations Ao root diam 3.4 cm Ao root area 9.0 cm\S\2 LA dimension 4.9 cm LA/Ao 1.4 LVAd ap4 42.8 cm\S\2 LVLd ap4 9.8 cm EDV(MOD-sp4) 149.8 ml EDV(sp4-el) 158.8 ml LVAs ap4 27.2 cm\S\2 LVLs ap4 8.6 cm ESV(MOD-sp4) 70.8 ml ESV(sp4-el) 73.2 ml EF(MOD-sp4) 52.8 % EF(sp4-el) 53.9 % LVAd ap2 40.6 cm\S\2 LVLd ap2 9.8 cm EDV(MOD-sp2) 131.2 ml EDV(sp2-el) 142.6 ml LVAs ap2 23.7 cm\S\2 LVLs ap2 8.0 cm ESV(MOD-sp2) 56.3 ml ESV(sp2-el) 59.2 ml EF(MOD-sp2) 57.1 % EF(sp2-el) 58.5 % LVLd %diff 0 % EDV(MOD-bp) 142.7 ml LVLs %diff -6.64 % ESV(MOD-bp) 62.8 ml EF(MOD-bp) 56.0 % SV(MOD-sp4) 79.1 ml SI(MOD-sp4) 33.7 ml/m\S\2 SV(MOD-sp2) 74.9 ml SI(MOD-sp2) 32.0 ml/m\S\2 SV(MOD-bp) 79.9 ml SI(MOD-bp) 34.1 ml/m\S\2 SV(sp4-el) 85.7 ml SI(sp4-el) 36.6 ml/m\S\2 SV(sp2-el) 83.3 ml SI(sp2-el) 35.6 ml/m\S\2 Doppler Measurements and Calculations Ao V2 max 150.7 cm/sec Ao max PG 9.1 mmHg Ao max PG (full) 2.7 mmHg LV V1 max PG 6.4 mmHg LV V1 max 126.7 cm/sec
[2016-07-11] MEDS: IPRATROPIUM BROMIDE/ALBUTEROL respimat INH INH SCH ×2 (17:20→20:41)
--- NOTE | 2016-07-11 19:11 | Progress Note ---
Internal Med Progress Note Date of Service: Jul 11, 2016. Provider Documentation: SUBJECTIVE: sob much improved no chest pain has some dry cough afebrile resting comfortably OBJECTIVE: Vital Signs-as noted below Exam: General-alert and oriented x 3 ENT-normal hearing Neck-no neck masses Lungs-cta b/l no wheezing or crackles Heart-s1 and s2 heard regular rate and rhythm, no murmurs Abdomen-soft bowel sounds present non tender no distension Extremities-no edema no erythema Neuro-alert and awake moves extremities Lab data as noted below. ASSESSMENT & PLAN: WORSENING SOB SECONDARY TO POSSIBLE BRONCHITIS; R/O PE CTA chest no PE but shows bronchiolitis on Rocephin and doxycycline on low dose steroids improving HYPOKALEMIA replaced HYPOCALCEMIA -Ca+ 7.4 vitamin D 25. adequate continue vitamin d supplementation will start on calcium supplements CKD STAGE 3 -creatinine is at baseline around 1.0 will monitor DIASTOLIC CHF -mild LE edema; BNP WNL echo 2012 EF 55-60% with mild LVH, mild MR and grade 1 diastolic dysfunction; will follow repeat echo will cont hydralazine and BB low sodium diet echo unremarkable will monitor I&Os and daily weights NAHEED on CPAP initial setup of CPAP HYPOTHYROIDISM on levothyroxine DEPRESSION stable on Celexa HTN will continue home meds increased coreg to 6.25mg bid iv hydralazine prn DYSLIPIDEMIA on statin DVT PROPHYLAXIS subq heparin CODE STATUS FULL CODE DISPO ambulate in [address] possible d/c in am if stable Vital Signs: Date Time Temp Pulse Resp B/P Pulse Ox O2 Delivery O2 Flow Rate FiO2 07/11/16 16:00 37.2 79 18 174/82 93 Room Air 07/11/16 14:48 76 167/85 07/11/16 12:00 36.7 91 22 125/80 93 Room Air 155/90 07/11/16 12:00 Room Air 07/11/16 11:37 95 14 92 Room Air 07/11/16 08:21 20 177/105 07/11/16 08:07 99 14 91 Room Air 07/11/16 08:00 Room Air 07/11/16 08:00 36.6 96 20 158/104 91 Room Air 07/11/16 04:40 159/74 07/11/16 04:00 Room Air 07/11/16 03:02 36.8 95 21 171/88 91 Nasal Cannula 2.0 07/11/16 02:26 89 177/75 07/11/16 00:09 82 205/97 07/11/16 00:00 Room Air 07/10/16 23:32 36.9 79 23 197/91 92 Room Air 07/10/16 21:29 94 16 93 Room Air 07/10/16 20:00 Room Air 07/10/16 19:35 36.4 74 18 211/83 93 Room Air 208/86
[2016-07-11] MEDS: CARVEDILOL 6.25 MG TAB PO SCH (20:11)
[2016-07-11] MEDS ORDERED: LORAZEPAM INJ 0.5 MG in SYRINGE 0.75 ML IV SCH (20:15)
[2016-07-11] MEDS: CALCIUM CARBONATE 500 MG CHEWABLE PO SCH (20:41)
[2016-07-12] VITALS (8 sets, daily range): BP systolic 164–179; BP diastolic 61–93; PULSE 69–77; TEMP 36.4–37.1; O2SAT 90–95
[2016-07-12] MEDS: HydrALAZINE HCL 20 MG/ML VIAL IV. PRN ×2 (05:57→11:40)
[2016-07-12] MEDS: HEPARIN SOD 5000 UNIT/0.5 ML CARP SQ SCH (05:58)
[2016-07-12] MEDS: LEVOTHYROXINE 50 MCG TAB PO SCH (05:58)
[2016-07-12 07:42] LABS: MEAN CELL VOLUME 91.3 fL (80-100); MEAN CORPUSCULAR HEMOGLOBIN 31.6 pg (25-34); MEAN CORPUSCULAR HGB CONC 34.6 g/dl (32-36); MEAN PLATELET VOLUME 11.9 fL (7.4-10.4); PLATELET COUNT 186 K/uL (130-400); RED BLOOD COUNT 4.49 M/uL (4.7-6.1)
[2016-07-12] MEDS: IPRATROPIUM BROMIDE/ALBUTEROL respimat INH INH SCH ×2 (08:57→13:17)
[2016-07-12] MEDS: CHOLECALCIFEROL 1000 INTER.UNIT TAB PO SCH (08:58)
[2016-07-12] MEDS: DOXYCYCLINE HYCLATE 100 MG CAP PO SCH (08:58)
[2016-07-12] MEDS: CARVEDILOL 6.25 MG TAB PO SCH (08:58)
[2016-07-12] MEDS: ASPIRIN 81 MG ECTAB PO SCH (08:59)
[2016-07-12] MEDS: AMLODIPINE BESYLATE 5 MG TAB PO SCH (08:59)
[2016-07-12] MEDS: ATORVASTATIN 10 MG TAB PO SCH (08:59)
[2016-07-12] MEDS: CALCIUM CARBONATE 500 MG CHEWABLE PO SCH (08:59)
[2016-07-12] MEDS: CITALOPRAM 20 MG TAB PO SCH (08:59)
[2016-07-12] MEDS: ALLOPURINOL 300 MG TAB PO SCH (08:59)
[2016-07-12] MEDS: METHYLPREDNISOLONE IV 20 MG in SYRINGE 0 ML IV SCH (09:00)
[2016-07-12] MEDS: CEFTRIAXONE SOD INJ 1 GM in DEXTROSE 5% ADD-VANTAGE 50ML 50 ML IV SCH (09:00)
[2016-07-12] MEDS ORDERED: AMLO-114 PO (13:45)
[2016-07-12] MEDS ORDERED: PRED10TA PO (13:45)
[2016-07-12] MEDS ORDERED: DXY100 PO (13:45)
[2016-07-12] MEDS ORDERED: IPRA1AER2 INH (13:45)
[2016-07-12] MEDS ORDERED: TUMS PO (13:45)
[2016-07-12] MEDS ORDERED: HYDR-4717 PO (13:45)
[2016-07-12] MEDS ORDERED: CEFU1TAB36 PO (13:45)
[2016-07-12] MEDS ORDERED: CRG625 PO (13:45)
--- NOTE | 2016-07-12 13:51 | Discharge Instructions ---
Discharge Instructions Admission Reason for Admission: SOB Discharge Discharge Diagnosis / Problem: bronchiolitis. Discharge Goals Goal(s): Decrease discomfort, Improve function Activity Recommendations Activity Limitations: resume your previous activity . Instructions / Follow-Up Instructions / Follow-Up FOLLOWUP WITH FAMILY DOCTOR Musa Hussein M.D. ON Jul AT 12:50PM. CLOSE FOLLOWUP OF BLOOD PRESSURE WITH FAMILY DOCTOR. BLOOD PRESSURE MEDICATIONS AT DISCHARGE: AMLODIPINE (NORVASC) 10MG ONCE DAILY HYDRALAZINE 50MG THREE TIMES DAILY COREG 6.25MG TWICE DAILY. REPEAT CT SCAN OF CHEST IN 6 MONTHS WITH FAMILY DOCTOR FOR RESOLUTION OF : Minimal tree-in-bud nodules within the right upper lobe and a few small ill-defined nodules within the right lower lobe. FOLLOW CALCIUM LEVELS ( LOW CALCIUM) IN 1-2 MONTHS WITH FAMILY DOCTOR. Current Hospital Diet Patient's current hospital diet: Low Sodium Diet (2gm Na) Discharge Diet Recommended Diet: AHA Diet (Heart Healthy) Pending Studies Studies pending at discharge: no Medical Emergencies . Who to Call and When: Medical Emergencies: If at any time you feel your situation is an emergency, please call 911 immediately. . Non-Emergent Contact Non-Emergency issues call your: Primary Care Provider . . "Provider Documentation" section prepared by Abimael Jeffery. VTE Core Measure Inpt VTE Proph given/why not?: Unfractionated heparin SQ
--- NOTE | 2016-07-12 19:23 | Progress Note ---
Internal Med Progress Note Date of Service: Jul 12, 2016. Provider Documentation: SUBJECTIVE: sob much improved denies chest pain afebrile cough improved want to go home OBJECTIVE: Vital Signs-as noted below Exam: General-alert and oriented x 3 ENT-normal hearing Neck-no neck masses Lungs-cta b/l no wheezing or crackles Heart-s1 and s2 heard regular rate and rhythm, no murmurs Abdomen-soft bowel sounds present non tender no distension Extremities-no edema no erythema Neuro-alert and awake moves extremities Lab data as noted below. ASSESSMENT & PLAN: WORSENING SOB SECONDARY TO POSSIBLE BRONCHITIS; R/O PE CTA chest no PE but shows bronchiolitis on Rocephin and doxycycline on low dose steroids improved d/jong on doxycycline, cefuroxime, Combivent, steroid taper HYPOKALEMIA replaced HYPOCALCEMIA -Ca+ 7.4 vitamin D 25. adequate continue vitamin d supplementation started on calcium supplements f/u with pcp. CKD STAGE 3 -creatinine is at baseline around 1.0 will monitor DIASTOLIC CHF -mild LE edema; BNP WNL echo 2012 EF 55-60% with mild LVH, mild MR and grade 1 diastolic dysfunction; will follow repeat echo will cont hydralazine and BB low sodium diet echo unremarkable will monitor I&Os and daily weights stable NAHEED on CPAP initial setup of CPAP HYPOTHYROIDISM on levothyroxine DEPRESSION stable on Celexa HTN will continue home meds increased coreg to 6.25mg bid and increased amlodipine to 10mg daily on hydralazine 50mg tid close followup with pcp DYSLIPIDEMIA on statin discharged home Vital Signs: Date Time Temp Pulse Resp B/P Pulse Ox O2 Delivery O2 Flow Rate FiO2 07/12/16 14:01 36.7 69 18 95 Room Air 07/12/16 13:18 36.7 69 18 177/87 95 Room Air 07/12/16 12:00 93 Room Air 07/12/16 08:07 93 Room Air 07/12/16 07:28 36.4 72 19 173/93 93 Room Air 07/12/16 06:27 168/72 07/12/16 05:20 36.9 77 16 179/72 94 Room Air 07/12/16 04:00 Room Air 07/12/16 00:23 37.1 76 16 164/61 90 Room Air 07/12/16 00:00 Room Air 07/11/16 20:02 37.0 92 18 178/82 94 Room Air 07/11/16 20:00 93 Room Air 07/11/16 19:47 37.0 92 18 94 Room Air Lab Results: Results Past 24 Hours Test 07/12/16 07:15 Range/Units White Blood Count 14.80 4.8-10.8 K/uL Red Blood Count 4.49 4.7-6.1 M/uL Hemoglobin 14.2 14.0-18.0 g/dL Hematocrit 41.0 42-52 % Mean Corpuscular Volume 91.3 80-100 fL Mean Corpuscular Hemoglobin 31.6 25-34 pg Mean Corpuscular Hemoglobin Concent 34.6 32-36 g/dl RDW Standard Deviation 46.2 36.4-46.3 fL RDW Coefficient of Variation 13.8 11.5-14.5 % Platelet Count 186 130-400 K/uL Mean Platelet Volume 11.9 7.4-10.4 fL
--- NOTE | 2016-07-12 19:31 | Discharge Summary ---
Discharge Summary Admission Date: Jul 09, 2016 at 18:56 Discharge Date: Jul 12, 2016 Discharge Disposition: Home Principal Diagnosis: SOB BRONCHIOLITIS Secondary Diagnoses/Problems: (1) Anemia, unspecified Status: Chronic (2) ASCVD (arteriosclerotic cardiovascular disease) Status: Chronic (3) BPH without obstruction/lower urinary tract symptoms Status: Chronic (4) Carpal tunnel syndrome Status: Chronic (5) Diastolic heart failure Status: Chronic (6) GERD (gastroesophageal reflux disease) Status: Chronic (7) Gout Status: Chronic (8) Hypertension Status: Chronic (9) Insomnia Status: Chronic (10) LEFT BB BLOCK NEC Status: Chronic (11) Major depression Status: Chronic (12) Obstructive sleep apnea on CPAP Status: Chronic (13) Osteoarthrosis Status: Chronic (14) Restless leg syndrome Status: Chronic Procedures: CTA CHEST: 1. No pulmonary emboli identified. 2. Minimal tree-in-bud nodules within the right upper lobe and a few small ill-defined nodules within the right lower lobe. The findings suggest a mild infectious process such as bronchiolitis. A follow-up chest CT in 6 months to ensure resolution is recommended. 3. Moderate cardiomegaly and moderate coronary artery calcification. ECHO: Normal LV chamber size with mild concentric LVH. * Low normal LV systolic function, EF 50-55%. * Septal motion is consistent with conduction abnormality, otherwise, no segmental left ventricular wall motion abnormalities are noted. * Grade I diastolic dysfunction. * No significant valvular pathology. * Mild left atrial enlargement. Medication Reconciliation New Medications: Amlodipine (Norvasc) 10 Mg Tab 10 MG PO DAILY, #30 TAB 2 Refills Cefuroxime Axetil (Cefuroxime Axetil) 500 Mg Tab 1 TAB PO BID for 7 Days, #14 TAB Hydralazine Hcl (Apresoline) 50 Mg Tab 50 MG PO TID for 30 Days, #90 TAB 2 Refills Prednisone (Prednisone) 10 Mg Tab 20 MG PO UD, #6 TAB PREDNISONE 20MG PO DAILY X 2 DAYS THEN PREDNSIONE 10MG PO DAILY X 2 DAYS AND STOP Calcium Carbonate (Tums) 500 Mg Chew 500 MG PO BID, #60 2 Refills Carvedilol (Carvedilol) 6.25 Mg Tab 6.25 MG PO BID, #60 TAB 2 Refills Doxycycline Hyclate (Doxycycline Hyclate) 100 Mg Cap 100 MG PO BID for 7 Days, #14 CAP Ipratropium-Albuterol (Combivent Respimat) 1 Aer Aer 1 PUFFS INH QID, #1 2 Refills Continued Medications: Allopurinol (Allopurinol) 300 Mg Tab 300 MG PO DAILY Aspirin (Aspirin Ec) 81 Mg Tab 81 MG PO DAILY Atorvastatin (Atorvastatin Calcium) 10 Mg Tab 5 MG PO DAILY Cholecalciferol (Vitamin D3) 2,000 Unit Cap 2000 INTER.UNIT PO DAILY Citalopram (Citalopram Hydrobromide) 20 Mg Tab 20 MG PO DAILY Levothyroxine Sodium (Synthroid) 50 Mcg Tab 50 MCG PO DAILY Meloxicam (Mobic) 15 Mg Tab 15 MG PO DAILY PRN for Pain, TAB Discontinued Medications: Amlodipine Besylate (Amlodipine Besylate) 5 Mg Tab 5 MG PO DAILY Carvedilol (Carvedilol) 3.125 Mg Tab 3.125 MG PO BID Hydralazine Hcl (Apresoline) 25 Mg Tab 25 MG PO BID, TAB Admission Information HPI (per Admitting provider): This is a 76 y/o male with PMHx of CKD stage 3, Diastolic CHF, NAHEED on CPAP HS, Hypothyroidism, HTN, Dyslipidemia and other problems as outlined below who presents to the ED c/o worsening SOB x 1 day. Pt reports that yesterday he developed SOB that is aggravated with exertion. At baseline he is able to ambulate far distances with no SOB however today he was only able to take 10 steps without stopping to catch his breath. Sxs are assoc with body aches, 4 days of a cough that is productive of thick yellow sputum and nasal congestion. He has been taking an OTC "cold medicine" that has not been offering any relief. Pt has no history of sick contacts. He got his flu shot this year and has no history of tobacco use. No PMHx of asthma or COPD. Pt denies fever/chills , diaphoresis, chest pain, palpitations, wheezing, abd pain, N/V, bowel or bladder issues, LE edema, calf pain, lightheadedness/dizziness. In the ED, pt is hypoxic to 85% on room air with ambulation to bathroom. He is afebrile with no leukocytosis. K+ 3.0. Ca 7.4. BNP WNL. Trop 0.020. CXR negative for acute process. EKG 1* AV block with LAD and LBBB. Pt appears stable and will be admitted for further evaluation and treatment. Physical Exam (per Admitting): General Appearance: WD/WN, no apparent distress, + obese, + pertinent finding (Pt is sitting in bed in NAD) Head: normocephalic, atraumatic Eyes: normal inspection ENT: hearing grossly normal Neck: supple Respiratory/Chest: chest non-tender, lungs clear, normal breath sounds, no respiratory distress, + pertinent finding (no wheezing or crackles noted ) Cardiovascular: regular rate, rhythm, no murmur Abdomen/GI: normal bowel sounds, non tender, soft Back: normal inspection Extremities/Musculoskelatal: normal inspection, no calf tenderness, + swelling (1+ edema to bilat LE) Neurologic/Psych: alert, normal mood/affect, oriented x 3 Skin: normal color, warm/dry Physical Exam (per Admitting): General Appearance: WD/WN, no apparent distress, + obese, + pertinent finding ( Pt is sitting in bed in NAD) Head: normocephalic, atraumatic Eyes: normal inspection ENT: hearing grossly normal Neck: supple Respiratory/Chest: chest non-tender, lungs clear, normal breath sounds, no respiratory distress, + pertinent finding (no wheezing or crackles noted ) Cardiovascular: regular rate, rhythm, no murmur Abdomen/GI: normal bowel sounds, non tender, soft Back: normal inspection Extremities/Musculoskelatal: normal inspection, no calf tenderness, + swelling (1+ edema to bilat LE) Neurologic/Psych: alert, normal mood/affect, oriented x 3 Skin: normal color, warm/dry Hospital Course WORSENING SOB SECONDARY TO POSSIBLE BRONCHITIS; R/O PE CTA chest no PE but shows bronchiolitis on Rocephin and doxycycline on low dose steroids improved d/jong on doxycycline, cefuroxime, Combivent, steroid taper HYPOKALEMIA replaced HYPOCALCEMIA -Ca+ 7.4 vitamin D 25. adequate continue vitamin d supplementation started on calcium supplements f/u with pcp. CKD STAGE 3 -creatinine is at baseline around 1.0 will monitor DIASTOLIC CHF -mild LE edema; BNP WNL echo 2013 EF 55-60% with mild LVH, mild MR and grade 1 diastolic dysfunction; will follow repeat echo will cont hydralazine and BB low sodium diet echo unremarkable will monitor I&Os and daily weights stable NAHEED on CPAP initial setup of CPAP HYPOTHYROIDISM on levothyroxine DEPRESSION stable on Celexa HTN will continue home meds increased coreg to 6.25mg bid and increased amlodipine to 10mg daily on hydralazine 50mg tid close followup with pcp DYSLIPIDEMIA on statin discharged home Total time spent on discharge = 35MINUTES This includes examination of the patient, discharge planning, medication reconciliation, and communication with other providers. Discharge Instructions Please take this sheet to every appointment for the next month Discharge Instructions Admission Reason for Admission: SOB Discharge Discharge Diagnosis / Problem: bronchiolitis. Discharge Goals Goal(s): Decrease discomfort, Improve function Activity Recommendations Activity Limitations: resume your previous activity . Instructions / Follow-Up Instructions / Follow-Up FOLLOWUP WITH FAMILY DOCTOR Musa Hussein M.D. ON Jul AT 12:50PM. CLOSE FOLLOWUP OF BLOOD PRESSURE WITH FAMILY DOCTOR. BLOOD PRESSURE MEDICATIONS AT DISCHARGE: AMLODIPINE (NORVASC) 10MG ONCE DAILY HYDRALAZINE 50MG THREE TIMES DAILY COREG 6.25MG TWICE DAILY. REPEAT CT SCAN OF CHEST IN 6 MONTHS WITH FAMILY DOCTOR FOR RESOLUTION OF : Minimal tree-in-bud nodules within the right upper lobe and a few small ill-defined nodules within the right lower lobe. FOLLOW CALCIUM LEVELS ( LOW CALCIUM) IN 1-2 MONTHS WITH FAMILY DOCTOR. Current Hospital Diet Patient's current hospital diet: Low Sodium Diet (2gm Na) Discharge Diet Recommended Diet: AHA Diet (Heart Healthy) Pending Studies Studies pending at discharge: no Medical Emergencies . Who to Call and When: Medical Emergencies: If at any time you feel your situation is an emergency, please call 911 immediately. . Non-Emergent Contact Non-Emergency issues call your: Primary Care Provider . . "Provider Documentation" section prepared by Abimael Jeffery. VTE Core Measure Inpt VTE Proph given/why not?: Unfractionated heparin SQ
== END 2016-07-12 14:40 | disposition home or self-care (01) | DRG 202 ==
LOC: ENRESERVTM → ENRESERVDT → C.EDB 14:42 → C.MED 18:56
PROVIDERS: ADMIT Internal Medicine; ATTEND Internal Medicine
DX: J21.9 Acute bronchiolitis, unspecified (principal); I50.32 Chronic diastolic (congestive) heart failure; D64.9 Anemia, unspecified; I25.10 Atherosclerotic heart disease of native coronary artery without angina pectoris; K21.9 Gastro-esophageal reflux disease without esophagitis; G47.33 Obstructive sleep apnea (adult) (pediatric); N18.3 Chronic kidney disease, stage 3 (moderate); E03.9 Hypothyroidism, unspecified; E78.5 Hyperlipidemia, unspecified; N40.0 Benign prostatic hyperplasia without lower urinary tract symptoms; M10.9 Gout, unspecified; G47.00 Insomnia, unspecified; Z79.82 Long term (current) use of aspirin; I12.9 Hypertensive chronic kidney disease with stage 1 through stage 4 chronic kidney disease, or unspecified chronic kidney disease; E87.6 Hypokalemia; E83.51 Hypocalcemia; M19.90 Unspecified osteoarthritis, unspecified site

== ENCOUNTER → 2016-11-11 | Outpatient (CLI) | payer OTHER ==
[~2016-11-11] MED LIST changes: +AMLO-114 PO; -APR50 PO; -CRG3125 PO; +CRG625 PO; +DXY100 PO; +HYDR-4717 PO; +IPRA1AER2 INH; +MELO15TA4 PO; -NRV/5 PO; -PANT20TA PO; +PRED10TA PO; +TUMS PO
--- NOTE | 2016-11-11 11:07 | DIAGNOSTIC IMAGING REPORT ---
CHEST CT WITHOUT CONTRAST CT DOSE: 694.07 mGycm HISTORY: Pulmonary nodules. Follow-up. TECHNIQUE: Multiaxial CT images of the chest were performed without contrast. COMPARISON: Chest CTA 07/09/2016. FINDINGS: The central airways are patent. Stable 5 mm nodule within the left lung apex on image 45. Mild emphysema. Small patchy airspace opacity within the periphery the right upper lobe which is slightly progressed. This is partially secured by the motion artifact. This appears to represent coalescing of the prior nodular densities at this location. No new pulmonary nodules identified. No suspicious lytic or blastic osseous lesions. No mediastinal or hilar lymphadenopathy. Stable 11 mm hypodense focus within the spleen. The unenhanced liver is unremarkable. Cholecystectomy. Normal adrenal glands. No pleural or pericardial effusions. The heart is normal in size. IMPRESSION: 1. Small patchy airspace opacity at the location of the previously identified tree-in-bud nodular densities. This favors slight progression of the inflammatory/infectious change. An additional [address] follow up is recommended to ensure resolution. 2. Stable 5 mm indeterminate pulmonary nodule within the left lung apex. Electronically signed by: Ang Hurley M.D. 11/11/2016 11:06 AM Dictated Date/Time: 11/11/2016 11:00 AM
== END | disposition home or self-care (01) ==
LOC: C.CTS 10:25
PROVIDERS: ATTEND Family Medicine
DX: R91.8 Other nonspecific abnormal finding of lung field (principal); R91.1 Solitary pulmonary nodule

== ENCOUNTER 2017-06-17 16:49 | Emergency (ER) | payer OTHER ==
[~2017-06-17] VITALS: Ht 170.2 cm; Wt 125.0 kg
[~2017-06-17 16:49] MED LIST changes: -PRED10TA PO
[2017-06-17 16:56] VITALS: TEMP 36.9; Ht 170.2 cm; Wt 125.0 kg
[2017-06-17 17:25] LABS: BASO % 0.4 %; BASO ABS # 0.02 K/uL (0-0.2); COMPLETE YES; EOS % 4.3 %; HEMATOCRIT 37.7 % (42-52); IG% 0.2 %; LYMPH % 17.5 %; LYMPH ABS # 0.98 K/uL (1.2-3.4); MEAN CELL VOLUME 94.3 fL (80-100); MEAN CORPUSCULAR HEMOGLOBIN 32.5 pg (25-34); MEAN CORPUSCULAR HGB CONC 34.5 g/dl (32-36); MEAN PLATELET VOLUME 11.1 fL (7.4-10.4); MONO % 8.7 %; NEUT % 68.9 %; PLATELET COUNT 138 K/uL (130-400); WHITE BLOOD COUNT 5.61 K/uL (4.8-10.8)
[2017-06-17 17:42] LABS: BUN/CREATININE RATIO 13.1 (10-20); CALCIUM 7.6 mg/dl (8.5-10.1); CREATININE 1.32 mg/dl (0.60-1.40); POTASSIUM 3.7 mmol/L (3.5-5.1)
[2017-06-17 17:45] LABS: ALB/GLOB RATIO 1.3 (0.9-2)
--- NOTE | 2017-06-17 17:50 | EMERGENCY ROOM VISIT NOTE ---
History First contact with patient: 17:00 Chief Complaint: ABDOMINAL PAIN Stated Complaint: ABD PAIN FOR MONTH-SENT BY DR De Jesus Triage Summary: pt repors low abdominal pain X 1 month to PCP on Fri and was started on medication for increased swelling on legs . but pain in abdomen cont pt reports pain with urination and decreased urination X 2 weeks and constipation last BM 1 wk ago denies NV History of Present Illness The patient is a 77 year old male who presents to the Emergency Room with complaints of lower abdominal pain Past Medical/Surgical History Medical Problems: (1) Anemia, unspecified (2) ASCVD (arteriosclerotic cardiovascular disease) (3) BPH without obstruction/lower urinary tract symptoms (4) Carpal tunnel syndrome (5) Diastolic heart failure (6) GERD (gastroesophageal reflux disease) (7) Gout (8) Hypertension (9) Insomnia (10) LEFT BB BLOCK NEC (11) Major depression (12) Obstructive sleep apnea on CPAP (13) Osteoarthrosis (14) Restless leg syndrome (15) SOB (shortness of breath) Surgical Problems: (1) H/O cataract removal with insertion of prosthetic lens (2) H/O sinus surgery (3) History of bilateral knee arthroplasty (4) History of total right hip arthroplasty (5) Hx of cholecystectomy Family History Hypertension Social History Smoking Status: Never Smoker Drug Use: none Marital Status: Housing Status: lives with family Occupation Status: retired Current/Historical Medications Scheduled Allopurinol (Allopurinol), 300 MG PO DAILY Amlodipine (Norvasc), 10 MG PO DAILY Aspirin (Aspirin Ec), 81 MG PO DAILY Atorvastatin (Atorvastatin Calcium), 5 MG PO DAILY Calcium Carbonate (Tums), 500 MG PO BID Carvedilol (Carvedilol), 6.25 MG PO BID Cholecalciferol (Vitamin D3), 2,000 INTER.UNIT PO DAILY Citalopram (Citalopram Hydrobromide), 20 MG PO DAILY Hydralazine Hcl (Apresoline), 50 MG PO TID Ipratropium-Albuterol (Combivent Respimat), 1 PUFFS INH QID Levothyroxine Sodium (Synthroid), 50 MCG PO DAILY Scheduled PRN Meloxicam (Mobic), 15 MG PO DAILY PRN for Pain Physical Exam Vital Signs Date Time Temp Pulse Resp B/P (MAP) Pulse Ox O2 Delivery O2 Flow Rate FiO2 12/12/17 18:28 62 20 171/87 94 Room Air 06/17/17 17:28 67 06/17/17 16:56 36.9 74 20 176/79 94 Room Air Medical Decision & Procedures Laboratory Results 06/17/17 17:12 Red Blood Count 4.00, Mean Corpuscular Volume 94.3, Mean Corpuscular Hemoglobin 32.5, Mean Corpuscular Hemoglobin Concent 34.5, Mean Platelet Volume 11.1, Neutrophils (%) (Auto) 68.9, Lymphocytes (%) (Auto) 17.5, Monocytes (%) (Auto) 8.7, Eosinophils (%) (Auto) 4.3, Basophils (%) (Auto) 0.4, Neutrophils # (Auto) 3.87, Lymphocytes # (Auto) 0.98, Monocytes # (Auto) 0.49, Eosinophils # (Auto) 0.24, Basophils # (Auto) 0.02 06/17/17 17:12 Test 06/17/17 00:00 06/17/17 17:12 Urine Color YELLOW Urine Appearance CLEAR (CLEAR) Urine pH 8.5 (4.5-7.5) Urine Specific [place] 1.024 (1.000-1.030) Urine Protein 1+ (NEG) Urine Glucose (UA) NEG (NEG) Urine Ketones NEG (NEG) Urine Occult Blood NEG (NEG) Urine Nitrite NEG (NEG) Urine Bilirubin NEG (NEG) Urine Urobilinogen NEG (NEG) Urine Leukocyte Esterase TRACE (NEG) Urine WBC (Auto) 1-5 /hpf (0-5) Urine RBC (Auto) 0-4 /hpf (0-4) Urine Hyaline Casts (Auto) 1-5 /lpf (0-5) Urine Epithelial Cells (Auto) 20-30 /lpf (0-5) Urine Bacteria (Auto) NEG (NEG) White Blood Count 5.61 K/uL (4.8-10.8) Red Blood Count 4.00 M/uL (4.7-6.1) Hemoglobin 13.0 g/dL (14.0-18.0) Hematocrit 37.7 % (42-52) Mean Corpuscular Volume 94.3 fL (80-100) Mean Corpuscular Hemoglobin 32.5 pg (25-34) Mean Corpuscular Hemoglobin Concent 34.5 g/dl (32-36) Platelet Count 138 K/uL (130-400) Mean Platelet Volume 11.1 fL (7.4-10.4) Neutrophils (%) (Auto) 68.9 % Lymphocytes (%) (Auto) 17.5 % Monocytes (%) (Auto) 8.7 % Eosinophils (%) (Auto) 4.3 % Basophils (%) (Auto) 0.4 % Neutrophils # (Auto) 3.87 K/uL (1.4-6.5) Lymphocytes # (Auto) 0.98 K/uL (1.2-3.4) Monocytes # (Auto) 0.49 K/uL (0.11-0.59) Eosinophils # (Auto) 0.24 K/uL (0-0.5) Basophils # (Auto) 0.02 K/uL (0-0.2) RDW Standard Deviation 46.9 fL (36.4-46.3) RDW Coefficient of Variation 13.6 % (11.5-14.5) Immature Granulocyte % (Auto) 0.2 % Immature Granulocyte # (Auto) 0.01 K/uL (0.00-0.02) Anion Gap 5.0 mmol/L (3-11) Est Creatinine Clear Calc Drug Dose 59.4 ml/min Estimated GFR () 59.9 Estimated GFR (Non- 51.7 BUN/Creatinine Ratio 13.1 (10-20) Calcium Level 7.6 mg/dl (8.5-10.1) Total Bilirubin 0.7 mg/dl (0.2-1) Aspartate Amino Transf (AST/SGOT) 28 U/L (15-37) Alanine Aminotransferase (ALT/SGPT) 31 U/L (12-78) Alkaline Phosphatase 64 U/L (45-117) Total Protein 6.3 gm/dl (6.4-8.2) Albumin 3.5 gm/dl (3.4-5.0) Globulin 2.8 gm/dl (2.5-4.0) Albumin/Globulin Ratio 1.3 (0.9-2) Blood Pressure Screening Patient's blood pressure: Elevated blood pressure Blood pressure disposition: Referred to PCP Need to follow up for elevated BP in 1-2 days with PCP Impression Primary Impression: Constipation Additional Impressions: Abdominal pain, left lower quadrant Hypertension Departure Information Dispostion Home / Self-Care Condition GOOD Prescriptions Docusate Sodium (DOCUSATE SODIUM) 100 Mg Cap 1 CAP PO DAILY for 30 Days, #30 CAP Prov: Tano Trujillo MD 06/17/17 Referrals Musa Stout M.D. (PCP) Patient Instructions My [facility] Additional Instructions ABDOMINAL PAIN INSTRUCTIONS: Start docusate sodium (stool softener) 100mg PO daily for constipation. Discuss starting a medication for benign prostatic hypertrophy symptoms with your PCP. Acetaminophen(Tylenol) may be used for fever or pain. Use 1000mg every eight hours as needed. Avoid using more than 3000mg in a 24 hour period. This is available over the counter. Read all the package inserts or medication information paperwork provided. If you have any questions or concerns call your primary provider, pharmacist or the ER for assistance. Rest and drink plenty of fluids as tolerated. Slow sips of water or sports drinks are recommended instead of large amounts all at once. Continue current medications. Return to the ER immediately for worsening or persistent abdominal pain, vomiting, fevers, chest pains, difficulty breathing, black or bloody stools, worsening of your condition, or as needed. Follow up with your primary physician in 1-2 days for a recheck of your current condition. Resident Tracking Resident Involvement: Resident Care Provided Care Provided: Adult ED Problem Qualifiers Primary Impression: Constipation Constipation type: unspecified constipation type Qualified Codes: K59.00 - Constipation, unspecified
[2017-06-17] MEDS ORDERED: OPTIRAY 320 IV PRN (18:00)
--- NOTE | 2017-06-17 18:30 | DIAGNOSTIC IMAGING REPORT ---
CT OF THE ABDOMEN AND PELVIS WITH CONTRAST CLINICAL HISTORY: Left lower quadrant abdominal pain. Evaluate for diverticulitis. COMPARISON STUDY: CT of the abdomen and pelvis February 04, 2016. TECHNIQUE: Following IV administration of 115 mL of Optiray-320, axial images of the abdomen and pelvis were obtained from the lung bases to the proximal femurs. Images were reviewed in the axial, sagittal, and coronal planes. IV contrast was administered without complication. A dose lowering technique was utilized adhering to the principles of ALARA. CT DOSE: 1622.61 mGy.cm FINDINGS: The liver, adrenal glands, kidneys and pancreas are unremarkable. A hypodense splenic lesion is unchanged since CT of July 16, 2014. This is benign given stability. There is no biliary ductal dilatation status post cholecystectomy. There is no peripancreatic infiltration. No hydronephrosis is present. There is no pneumatosis, free air or portal venous gas. There is no evidence for acute appendicitis. There is hyperdense material within the appendix. Images of the pelvis are degraded by streak artifact from a right hip arthroplasty. There is a moderate amount of stool within the colon and rectum. No pneumatosis, free air or portal venous gas is present. Mild infiltration adjacent to the bladder is unchanged. The prostate is moderately enlarged. No suspicious osseous lesion is present. No lymphadenopathy is present. There is no ascites. IMPRESSION: 1. No acute process within the abdomen or pelvis. 2. Moderate amount of stool within the colon and rectum. No evidence for a bowel obstruction. 3. Moderate enlargement of the prostate. 4. Mild infiltration adjacent to the bladder. This is unchanged from earlier studies and of questionable significance although could be correlated with urinalysis to exclude cystitis. Electronically signed by: Kyler Lim M.D. 06/17/2017 6:29 PM Dictated Date/Time: 06/17/2017 6:19 PM
[2017-06-17 18:41] LABS: URINE APPEARANCE CLEAR (CLEAR); URINE BILIRUBIN NEG (NEG); URINE COLOR YELLOW; URINE EPITHELIAL CELL AUTO 20-30 /lpf (0-5); URINE NITRITE NEG (NEG); URINE PH 8.5 (4.5-7.5); URINE SPECIFIC GRAVITY 1.024 (1.000-1.030); UROBILINOGEN NEG (NEG); ZZUR CULT IF INDIC CLEAN CATCH NO
[2017-06-17 18:46] LABS: MANUAL MICROSCOPIC REQUIRED? NO; REVIEW REQ? NO
--- NOTE | 2017-06-17 18:46 | DIAGNOSTIC IMAGING REPORT ---
CHEST ONE VIEW PORTABLE CLINICAL HISTORY: Increased leg edema. COMPARISON STUDY: Chest CT November 11, 2016. FINDINGS: Lung volumes are normal. No pneumothorax or pleural effusion is present. Mild elevation of the right hemidiaphragm is unchanged. Moderate cardiomegaly is unchanged. There is no consolidation to suggest pneumonia. There is no evidence for pulmonary edema. IMPRESSION: 1. No acute cardiopulmonary findings. 2. Stable moderate cardiomegaly without evidence of pulmonary edema. Electronically signed by: Kyler Lim M.D. 06/17/2017 6:45 PM Dictated Date/Time: 06/17/2017 6:43 PM
[2017-06-17 18:47] LABS: SULFASALICYLIC ACID POS (NEG)
[2017-06-17] MEDS ORDERED: MILK AND MOLASSES ENEMA PR STA (19:04)
[2017-06-17] MEDS ORDERED: SOAP SUDS ENEMA PR STA (19:24)
--- NOTE | 2017-06-17 20:07 | DIAGNOSTIC IMAGING REPORT ---
SCROTAL ULTRASOUND CLINICAL HISTORY: Left testicular pain. Possible epididymitis. COMPARISON STUDY: None. TECHNIQUE: Grayscale and color and duplex Doppler sonography of the scrotum was performed. FINDINGS: The right testis measures 4.1 x 2.3 x 2.2 cm and the left measures 2.9 x 2.1 x 2.6 cm. A few echogenic foci within the right testis may reflect calcification. There is no suspicious testicular mass. There is no evidence for testicular torsion. There are small bilateral varicoceles. There is no evidence for epididymitis. IMPRESSION: 1. No evidence of testicular torsion. 2. No evidence for epididymitis. 3. Small bilateral varicoceles. Electronically signed by: Kyler Lim M.D. 06/17/2017 8:06 PM Dictated Date/Time: 06/17/2017 8:05 PM
--- NOTE | 2017-06-17 20:36 | EMERGENCY ROOM VISIT NOTE ---
History Report prepared by Eduarda: Jasmin Greene Under the Supervision of: Dr. Shakir Love M.D. First contact with patient: 17:00 Chief Complaint: ABDOMINAL PAIN Stated Complaint: ABD PAIN FOR MONTH-SENT BY DR De Jesus Triage Summary: pt repors low abdominal pain X 1 month to PCP on Fri and was started on medication for increased swelling on legs . but pain in abdomen cont pt reports pain with urination and decreased urination X 2 weeks and constipation last BM 1 wk ago denies NV History of Present Illness The patient is a 77 year old male who presents to the Emergency Room with complaints of lower left abdominal pain beginning about a month ago. The patient states that his pain was intermittent until two weeks ago and it then became constant. The patient describes his pain as "cramping" and states it feels like he needs to have a bowel movement. He states his pain is not relieved after he passes a bowel movement. The patient also reports left testicular pain that is worse with urinating. He notes urinary burning and a difficulty starting urinating. The patient states he has had constipation beginning two weeks ago. He reports decreased bowel movement output and states his stool has been occasionally liquid. No melena or hematochezia. He denies any medication changes, fever, or vomiting. The patient has a history of a cholecystectomy . Source of History: patient Onset: a month ago Position: abdomen (LLQ) Quality: cramping Timing: intermittent Associated Symptoms: + abdominal pain, + diarrhea, + urinary symptoms, No fevers, No vomiting Review of Systems See HPI for pertinent positives & negatives. A total of 10 systems reviewed and were otherwise negative. Past Medical & Surgical Medical Problems: (1) Anemia, unspecified (2) ASCVD (arteriosclerotic cardiovascular disease) (3) BPH without obstruction/lower urinary tract symptoms (4) Carpal tunnel syndrome (5) Diastolic heart failure (6) GERD (gastroesophageal reflux disease) (7) Gout (8) Hypertension (9) Insomnia (10) LEFT BB BLOCK NEC (11) Major depression (12) Obstructive sleep apnea on CPAP (13) Osteoarthrosis (14) Restless leg syndrome (15) SOB (shortness of breath) Surgical Problems: (1) H/O cataract removal with insertion of prosthetic lens (2) H/O sinus surgery (3) History of bilateral knee arthroplasty (4) History of total right hip arthroplasty (5) Hx of cholecystectomy Family History Hypertension Social History Smoking Status: Never Smoker Drug Use: none Marital Status: Housing Status: lives with family Occupation Status: retired Current/Historical Medications Scheduled Allopurinol (Allopurinol), 300 MG PO DAILY Amlodipine (Norvasc), 10 MG PO DAILY Aspirin (Aspirin Ec), 81 MG PO DAILY Atorvastatin (Atorvastatin Calcium), 5 MG PO DAILY Calcium Carbonate (Tums), 500 MG PO BID Carvedilol (Carvedilol), 6.25 MG PO BID Cholecalciferol (Vitamin D3), 2,000 INTER.UNIT PO DAILY Citalopram (Citalopram Hydrobromide), 20 MG PO DAILY Hydralazine Hcl (Apresoline), 50 MG PO TID Ipratropium-Albuterol (Combivent Respimat), 1 PUFFS INH QID Levothyroxine Sodium (Synthroid), 50 MCG PO DAILY Scheduled PRN Meloxicam (Mobic), 15 MG PO DAILY PRN for Pain Allergies Coded Allergies: No Known Allergies (Verified , 06/17/17) Physical Exam Vital Signs Date Time Temp Pulse Resp B/P (MAP) Pulse Ox O2 Delivery O2 Flow Rate FiO2 06/17/17 18:28 62 20 171/87 94 Room Air 06/17/17 17:28 67 06/17/17 16:56 36.9 74 20 176/79 94 Room Air Physical Exam Constitutional: Vital signs reviewed. Eyes: Pupils are equal round reactive to light. Conjunctiva are noninjected. ENT: Pharynx is clear without erythema or exudate. Mucous membranes are moist. Neck supple without meningeal signs. Respiratory: Clear to auscultation bilaterally. Breath sounds are equal bilaterally. Cardiovascular: Regular rate and rhythm. No rubs or gallops. GI: Tenderness is left lower quadrant and suprapubic region. Soft, nondistended. Bowel sounds are present. : No significant swelling or redness to testicles. Mild tenderness to palpation. Musculoskeletal: No peripheral edema. No lower extremity tenderness. Integumentary: No cyanosis. Neurological: The patient is awake and alert. No focal deficits. Psychiatric: Normal affect. Medical Decision & Procedures ER Provider Diagnostic Interpretation: Radiology results as stated below per my review and the radiologist's interpretation: CT OF THE ABDOMEN AND PELVIS WITH CONTRAST FINDINGS: The liver, adrenal glands, kidneys and pancreas are unremarkable. A hypodense splenic lesion is unchanged since CT of July 16, 2014. This is benign given stability. There is no biliary ductal dilatation status post cholecystectomy. There is no peripancreatic infiltration. No hydronephrosis is present. There is no pneumatosis, free air or portal venous gas. There is no evidence for acute appendicitis. There is hyperdense material within the appendix. Images of the pelvis are degraded by streak artifact from a right hip arthroplasty. There is a moderate amount of stool within the colon and rectum. No pneumatosis, free air or portal venous gas is present. Mild infiltration adjacent to the bladder is unchanged. The prostate is moderately enlarged. No suspicious osseous lesion is present. No lymphadenopathy is present. There is no ascites. IMPRESSION: 1. No acute process within the abdomen or pelvis. 2. Moderate amount of stool within the colon and rectum. No evidence for a bowel obstruction. 3. Moderate enlargement of the prostate. 4. Mild infiltration adjacent to the bladder. This is unchanged from earlier studies and of questionable significance although could be correlated with urinalysis to exclude cystitis. Electronically signed by: Kyler Lim M.D. CHEST ONE VIEW PORTABLE FINDINGS: Lung volumes are normal. No pneumothorax or pleural effusion is present. Mild elevation of the right hemidiaphragm is unchanged. Moderate cardiomegaly is unchanged. There is no consolidation to suggest pneumonia. There is no evidence for pulmonary edema. IMPRESSION: 1. No acute cardiopulmonary findings. 2. Stable moderate cardiomegaly without evidence of pulmonary edema. Electronically signed by: Kyler Lim M.D. SCROTAL ULTRASOUND FINDINGS: The right testis measures 4.1 x 2.3 x 2.2 cm and the left measures 2.9 x 2.1 x 2.6 cm. A few echogenic foci within the right testis may reflect calcification. There is no suspicious testicular mass. There is no evidence for testicular torsion. There are small bilateral varicoceles. There is no evidence for epididymitis. IMPRESSION: 1. No evidence of testicular torsion. 2. No evidence for epididymitis. 3. Small bilateral varicoceles. Electronically signed by: Kyler Lim M.D. Laboratory Results 06/17/17 17:12 Red Blood Count 4.00, Mean Corpuscular Volume 94.3, Mean Corpuscular Hemoglobin 32.5, Mean Corpuscular Hemoglobin Concent 34.5, Mean Platelet Volume 11.1, Neutrophils (%) (Auto) 68.9, Lymphocytes (%) (Auto) 17.5, Monocytes (%) (Auto) 8.7, Eosinophils (%) (Auto) 4.3, Basophils (%) (Auto) 0.4, Neutrophils # (Auto) 3.87, Lymphocytes # (Auto) 0.98, Monocytes # (Auto) 0.49, Eosinophils # (Auto) 0.24, Basophils # (Auto) 0.02 06/17/17 17:12 Test 06/17/17 00:00 06/17/17 17:12 Urine Color YELLOW Urine Appearance CLEAR (CLEAR) Urine pH 8.5 (4.5-7.5) Urine Specific [place] 1.024 (1.000-1.030) Urine Protein 1+ (NEG) Urine Glucose (UA) NEG (NEG) Urine Ketones NEG (NEG) Urine Occult Blood NEG (NEG) Urine Nitrite NEG (NEG) Urine Bilirubin NEG (NEG) Urine Urobilinogen NEG (NEG) Urine Leukocyte Esterase TRACE (NEG) Urine WBC (Auto) 1-5 /hpf (0-5) Urine RBC (Auto) 0-4 /hpf (0-4) Urine Hyaline Casts (Auto) 1-5 /lpf (0-5) Urine Epithelial Cells (Auto) 20-30 /lpf (0-5) Urine Bacteria (Auto) NEG (NEG) White Blood Count 5.61 K/uL (4.8-10.8) Red Blood Count 4.00 M/uL (4.7-6.1) Hemoglobin 13.0 g/dL (14.0-18.0) Hematocrit 37.7 % (42-52) Mean Corpuscular Volume 94.3 fL (80-100) Mean Corpuscular Hemoglobin 32.5 pg (25-34) Mean Corpuscular Hemoglobin Concent 34.5 g/dl (32-36) Platelet Count 138 K/uL (130-400) Mean Platelet Volume 11.1 fL (7.4-10.4) Neutrophils (%) (Auto) 68.9 % Lymphocytes (%) (Auto) 17.5 % Monocytes (%) (Auto) 8.7 % Eosinophils (%) (Auto) 4.3 % Basophils (%) (Auto) 0.4 % Neutrophils # (Auto) 3.87 K/uL (1.4-6.5) Lymphocytes # (Auto) 0.98 K/uL (1.2-3.4) Monocytes # (Auto) 0.49 K/uL (0.11-0.59) Eosinophils # (Auto) 0.24 K/uL (0-0.5) Basophils # (Auto) 0.02 K/uL (0-0.2) RDW Standard Deviation 46.9 fL (36.4-46.3) RDW Coefficient of Variation 13.6 % (11.5-14.5) Immature Granulocyte % (Auto) 0.2 % Immature Granulocyte # (Auto) 0.01 K/uL (0.00-0.02) Anion Gap 5.0 mmol/L (3-11) Est Creatinine Clear Calc Drug Dose 59.4 ml/min Estimated GFR () 59.9 Estimated GFR (Non- 51.7 BUN/Creatinine Ratio 13.1 (10-20) Calcium Level 7.6 mg/dl (8.5-10.1) Total Bilirubin 0.7 mg/dl (0.2-1) Aspartate Amino Transf (AST/SGOT) 28 U/L (15-37) Alanine Aminotransferase (ALT/SGPT) 31 U/L (12-78) Alkaline Phosphatase 64 U/L (45-117) Total Protein 6.3 gm/dl (6.4-8.2) Albumin 3.5 gm/dl (3.4-5.0) Globulin 2.8 gm/dl (2.5-4.0) Albumin/Globulin Ratio 1.3 (0.9-2) ED Course 174: The patient was evaluated in room B4B. A complete history and physical exam was performed. 1903: Resident ordered Milk and Molasses Enema [address] 1923: Resident ordered soap suds enema [address] 2033: Upon reevaluation, the patient appeared to have improvement of his symptoms. I discussed tonight's findings with him. He verbalized agreement of the treatment plan. The patient was discharged home. Medical Decision This is a 77-year-old male presents with lower abdominal pain. Differential diagnosis includes diverticulitis, abscess, perforation, kidney stone, hernia, UTI, fecal impaction. I did perform a limited focused review of portions of the patient's old chart on the electronic medical record. The patient has had no recent pertinent visits to this hospital. I did evaluate the patient as noted above. IV access was established. I did order and personally review the patient's urinalysis as described above. I did order and review the patient's blood work as noted in the electronic medical record. His white blood cell count is not elevated. I did order a CT of the abdomen and pelvis. I did review the images myself as well as the radiology report as described above. This does not show any acute abnormality. An ultrasound of the scrotum was obtained which was unremarkable. The patient was given an enema and will follow up with his doctor. Resident Physician Supervision Note: I did evaluate and examine this patient myself. I did guide management for the patient. I agree with the resident's Dr. Trujillo assessment as discussed. Please see the resident's dictation for further details. Medication Reconcilliation Current Medication List: was personally reviewed by me Blood Pressure Screening Patient's blood pressure: Elevated blood pressure Blood pressure disposition: Referred to PCP Impression Primary Impression: Abdominal pain, left lower quadrant Additional Impression: Constipation Scribe Attestation The scribe's documentation has been prepared under my direct and personally reviewed by me in its entirety. I confirm that the note above accurately reflects all work, treatment, procedures, and medical decision making performed by me. Departure Information Dispostion Home / Self-Care Referrals Musa Stout M.D. (PCP) Forms Call Back Authorization, HOME CARE DOCUMENTATION FORM, IMPORTANT VISIT INFORMATION Patient Instructions My [facility] Problem Qualifiers Additional Impression: Constipation Constipation type: unspecified constipation type Qualified Codes: K59.00 - Constipation, unspecified
[2017-06-17] MEDS ORDERED: DOCU100C31 PO (20:44)
[2017-06-17 21:14] VITALS: BP 189/102; PULSE 77; O2SAT 96
== END 2017-06-17 21:16 | disposition home or self-care (01) ==
LOC: C.EDB 16:50
DX: R10.32 Left lower quadrant pain (principal); K59.00 Constipation, unspecified; I10 Essential (primary) hypertension; M10.9 Gout, unspecified; Z96.1 Presence of intraocular lens; Z90.49 Acquired absence of other specified parts of digestive tract; Z96.653 Presence of artificial knee joint, bilateral; Z96.641 Presence of right artificial hip joint; Z98.49 Cataract extraction status, unspecified eye; Z82.49 Family history of ischemic heart disease and other diseases of the circulatory system; Z79.82 Long term (current) use of aspirin; Z79.899 Other long term (current) drug therapy

== ENCOUNTER 2017-09-22 15:16 | Observation (INO) | payer OTHER ==
[~2017-09-22] VITALS: Ht 170.2 cm; Wt 123.2 kg
[~2017-09-22 15:16] MED LIST changes: -DXY100 PO; +MELO-84 PO; -MELO15TA4 PO
[2017-09-22] MEDS ORDERED: ASPIRIN 81 MG CHEW PO STA (15:36)
--- NOTE | 2017-09-22 15:58 | DIAGNOSTIC IMAGING REPORT ---
CHEST ONE VIEW PORTABLE CLINICAL HISTORY: Atypical chest pain COMPARISON STUDY: 06/17/2017 FINDINGS: The heart remains enlarged. There is aortic tortuosity/ectasia. There is mild central vascular prominence without evidence of overt failure. There is no focal pulmonary consolidation. There are no pleural effusions.[ IMPRESSION: Stable cardiomegaly. No evidence of focal pulmonary consolidation Electronically signed by: Jason Ghosh M.D. 09/22/2017 3:56 PM Dictated Date/Time: 09/22/2017 3:55 PM
[2017-09-22 16:09] LABS: PTT PATIENT 23.1 SECONDS (21.0-31.0)
[2017-09-22 16:13] LABS: BASO % 0.5 %; BASO ABS # 0.03 K/uL (0-0.2); EOS % 4.1 %; EOS ABS # 0.25 K/uL (0-0.5); HEMATOCRIT 38.4 % (42-52); IG# 0.01 K/uL (0.00-0.02); LYMPH % 16.5 %; LYMPH ABS # 1.01 K/uL (1.2-3.4); MEAN CELL VOLUME 92.8 fL (80-100); MEAN CORPUSCULAR HEMOGLOBIN 31.4 pg (25-34); MEAN CORPUSCULAR HGB CONC 33.9 g/dl (32-36); MEAN PLATELET VOLUME 11.9 fL (7.4-10.4); MONO % 8.5 %; MONO ABS # 0.52 K/uL (0.11-0.59); NEUT % 70.2 %; NEUT ABS # 4.29 K/uL (1.4-6.5); PLATELET COUNT 140 K/uL (130-400); RED CELL DISTRIBUTION WIDTH SD 47.4 fL (36.4-46.3); WHITE BLOOD COUNT 6.11 K/uL (4.8-10.8)
[2017-09-22 16:33] LABS: ALBUMIN 3.6 gm/dl (3.4-5.0); ALT/SGPT 25 U/L (12-78); BLOOD UREA NITROGEN 20 mg/dl (7-18); CALCIUM 7.8 mg/dl (8.5-10.1); CARBON DIOXIDE 30 mmol/L (21-32); CREATININE 1.23 mg/dl (0.60-1.40); GLUCOSE 117 mg/dl (70-99); LIPASE 197 U/L (73-393); POTASSIUM 3.5 mmol/L (3.5-5.1); SODIUM 142 mmol/L (136-145)
[2017-09-22] MEDS ORDERED: CARV3.122 PO (16:37)
[2017-09-22] MEDS ORDERED: APR25 PO (16:37)
[2017-09-22] MEDS ORDERED: AMLO-110 PO (16:37)
[2017-09-22 16:39] LABS: ALKALINE PHOSPHATASE 60 U/L (45-117); AST/SGOT 23 U/L (15-37); CKMB 1.1 ng/ml (0.5-3.6); TOTAL PROTEIN 6.5 gm/dl (6.4-8.2)
--- NOTE | 2017-09-22 17:27 | EMERGENCY ROOM VISIT NOTE ---
History Report prepared by Eduarda: Diogo Quiroz Under the Supervision of: Dr. William Paniagua M.D. First contact with patient: 15:28 Chief Complaint: CHEST PAIN Stated Complaint: TIGHTNESS IN CHEST History of Present Illness The patient is a 77 year old male who presents to the Emergency Room with complaints of worsening chest pain for the past week which is worsened with exertion and improved with resting. The patient additionally notes that he has been short of breath for the past 2-3 weeks which is worse with exertion and has gotten much worse for the past 24 hours. The patient notes that he has been more fatigued recently, and he has been having more leg swelling than usual. He denies any history of heart problems, lung problems, or blood clots. The patient was seen by his heart doctor, and he states that he was told to come to the ED for evaluation. He reports that he takes a baby aspirin daily. Pt denies LOC, headache, fevers, chills, diaphoresis, visual changes, neck pain, nausea, vomiting, abdominal pain, back pain, melena, hematochezia, urinary symptoms, numbness, weakness, lymphadenopathy, rash, or other complaints. Source of History: patient Onset: a week ago Position: chest Timing: worsening Modifying Factors (Worsening): exertion Modifying Factors (Relieving): rest Associated Symptoms: + SOB, + fatigue Note: Associated symptoms: Leg swelling Review of Systems See HPI for pertinent positives and negatives. A total of ten systems were reviewed and were otherwise negative. Past Medical & Surgical Medical Problems: (1) Anemia, unspecified (2) ASCVD (arteriosclerotic cardiovascular disease) (3) BPH without obstruction/lower urinary tract symptoms (4) Carpal tunnel syndrome (5) Chest pain (6) Diastolic heart failure (7) GERD (gastroesophageal reflux disease) (8) Gout (9) Hypertension (10) Insomnia (11) LEFT BB BLOCK NEC (12) Major depression (13) Obstructive sleep apnea on CPAP (14) Osteoarthrosis (15) Restless leg syndrome (16) SOB (shortness of breath) Surgical Problems: (1) H/O cataract removal with insertion of prosthetic lens (2) H/O sinus surgery (3) History of bilateral knee arthroplasty (4) History of total right hip arthroplasty (5) Hx of cholecystectomy Family History Hypertension Social History Smoking Status: Never Smoker Drug Use: none Marital Status: Housing Status: lives with family Occupation Status: retired Current/Historical Medications Scheduled Allopurinol (Allopurinol), 300 MG PO DAILY Amlodipine (Norvasc), 5 MG PO DAILY Aspirin (Aspirin Ec), 81 MG PO DAILY Atorvastatin (Lipitor), 10 MG PO DAILY Calcium Carbonate (Tums), 2 TAB PO DAILY Carvedilol (Coreg), 6.25 MG PO BID Cholecalciferol (Vitamin D3), 2,000 INTER.UNIT PO DAILY Citalopram (Citalopram Hydrobromide), 20 MG PO DAILY Hydralazine HCl (Hydralazine HCl), 1 TAB PO TID Levothyroxine Sodium (Synthroid), 50 MCG PO DAILY Magnesium Oxide (Mg Supplement (Magnesium Oxide), 400 MG PO BID Terazosin (Hytrin), 1 CAP PO HS Scheduled PRN Ranitidine (Zantac), 150 MG PO DAILY PRN for Heartburn Tramadol (Ultram), 50 MG PO Q6 PRN for Pain Allergies Coded Allergies: No Known Allergies (Verified , 09/22/17) Physical Exam Vital Signs Date Time Temp Pulse Resp B/P (MAP) Pulse Ox O2 Delivery O2 Flow Rate FiO2 09/22/17 17:41 61 23 173/80 94 Room Air 09/22/17 16:23 71 09/22/17 15:42 95 Room Air 09/22/17 15:42 77 168/80 95 Room Air 09/22/17 15:42 95 Room Air 09/22/17 15:23 36.8 58 22 162/71 95 Room Air Physical Exam GENERAL: Awake, alert, tired-appearing, in no distress HENT: Normocephalic, atraumatic. Oropharynx unremarkable. EYES: Normal conjunctiva. Sclera non-icteric. NECK: Supple. No nuchal rigidity. FROM. No masses. RESPIRATORY: Clear to auscultation. No wheezes. No rales. Normal respiratory effort. CARDIAC: Normal rate. Normal rhythm. No murmurs. No rubs. Extremities warm and well perfused. Pulses equal. No JVD. GI: Soft, non-distended. No tenderness to palpation. No rebound or guarding. No masses. RECTAL: Deferred. MUSCULOSKELETAL: Atraumatic. Chest examination reveals no tenderness. The back is symmetrical on inspection without obvious abnormality. There is no CVA tenderness to palpation. No joint edema. LOWER EXTREMITIES: 2+ lower extremity edema. Calves are equal size bilaterally and non-tender. No discoloration. NEURO: Normal sensorium. No sensory or motor deficits noted. SKIN: No rash or jaundice noted. Medical Decision & Procedures ER Provider Diagnostic Interpretation: Radiology results as stated below per my review and radiologist interpretation: CHEST ONE VIEW PORTABLE CLINICAL HISTORY: Atypical chest pain COMPARISON STUDY: 06/17/2017 FINDINGS: The heart remains enlarged. There is aortic tortuosity/ectasia. There is mild central vascular prominence without evidence of overt failure. There is no focal pulmonary consolidation. There are no pleural effusions.[ IMPRESSION: Stable cardiomegaly. No evidence of focal pulmonary consolidation Electronically signed by: Jason Ghosh M.D. 09/22/2017 3:56 PM Dictated Date/Time: 09/22/2017 3:55 PM Laboratory Results 09/22/17 15:44 Red Blood Count 4.14, Mean Corpuscular Volume 92.8, Mean Corpuscular Hemoglobin 31.4, Mean Corpuscular Hemoglobin Concent 33.9, Mean Platelet Volume 11.9, Neutrophils (%) (Auto) 70.2, Lymphocytes (%) (Auto) 16.5, Monocytes (%) (Auto) 8.5, Eosinophils (%) (Auto) 4.1, Basophils (%) (Auto) 0.5, Neutrophils # (Auto) 4.29, Lymphocytes # (Auto) 1.01, Monocytes # (Auto) 0.52, Eosinophils # (Auto) 0.25, Basophils # (Auto) 0.03 09/22/17 15:44 Test 09/22/17 15:44 White Blood Count 6.11 K/uL (4.8-10.8) Red Blood Count 4.14 M/uL (4.7-6.1) Hemoglobin 13.0 g/dL (14.0-18.0) Hematocrit 38.4 % (42-52) Mean Corpuscular Volume 92.8 fL (80-100) Mean Corpuscular Hemoglobin 31.4 pg (25-34) Mean Corpuscular Hemoglobin Concent 33.9 g/dl (32-36) Platelet Count 140 K/uL (130-400) Mean Platelet Volume 11.9 fL (7.4-10.4) Neutrophils (%) (Auto) 70.2 % Lymphocytes (%) (Auto) 16.5 % Monocytes (%) (Auto) 8.5 % Eosinophils (%) (Auto) 4.1 % Basophils (%) (Auto) 0.5 % Neutrophils # (Auto) 4.29 K/uL (1.4-6.5) Lymphocytes # (Auto) 1.01 K/uL (1.2-3.4) Monocytes # (Auto) 0.52 K/uL (0.11-0.59) Eosinophils # (Auto) 0.25 K/uL (0-0.5) Basophils # (Auto) 0.03 K/uL (0-0.2) RDW Standard Deviation 47.4 fL (36.4-46.3) RDW Coefficient of Variation 14.0 % (11.5-14.5) Immature Granulocyte % (Auto) 0.2 % Immature Granulocyte # (Auto) 0.01 K/uL (0.00-0.02) Prothrombin Time 10.0 SECONDS (9.0-12.0) Prothromb Time International Ratio 1.0 (0.9-1.1) Activated Partial Thromboplast Time 23.1 SECONDS (21.0-31.0) Partial Thromboplastin Ratio 0.9 Anion Gap 6.0 mmol/L (3-11) Est Creatinine Clear Calc Drug Dose 61.9 ml/min Estimated GFR () 65.2 Estimated GFR (Non- 56.3 BUN/Creatinine Ratio 16.3 (10-20) Calcium Level 7.8 mg/dl (8.5-10.1) Total Bilirubin 0.7 mg/dl (0.2-1) Direct Bilirubin 0.2 mg/dl (0-0.2) Aspartate Amino Transf (AST/SGOT) 23 U/L (15-37) Alanine Aminotransferase (ALT/SGPT) 25 U/L (12-78) Alkaline Phosphatase 60 U/L (45-117) Total Creatine Kinase 137 U/L (39-308) Creatine Kinase MB 1.1 ng/ml (0.5-3.6) Creatine Kinase MB Ratio 0.8 (0-3.0) Pro-B-Type Natriuretic Peptide 305 pg/ml (0-1800) Total Protein 6.5 gm/dl (6.4-8.2) Albumin 3.6 gm/dl (3.4-5.0) Lipase 197 U/L (73-393) Laboratory results reviewed by me Medications Administered Medications (Trade) Dose Ordered Sig/Nini Route Start Time Stop Time Status Last Admin Dose Admin Aspirin (Aspirin Chew) 243 mg NOW STAT PO 09/22/17 15:36 09/22/17 15:40 DC 09/22/17 15:45 243 MG ECG Per My Interpretation Indication: chest pain Rate (beats per minute): 75 Rhythm: sinus rhythm Findings: 1st degree AV block, LBBB, PVC, left axis deviation Comparison ECG Date: 07/11/16 Change: LBBB is old. ED Course 1528: The patient was evaluated in room C12. A complete history and physical exam was performed. 1536: Aspirin 243 mg PO 1715: I reevaluated the patient, and she was stable. 1729: I reassessed her, and she was still stable. 1731: Discussed the patient's case with Shannon Baca. The patient will be evaluated for further treatment and disposition. Medical Decision Prior records/ancillary studies reviewed. Triage Nursing notes reviewed and agree them. Additional history obtained from the family. The patient's history was concerning for chest pain. Differential diagnosis: Etiologies such as cardiac ischemia, aortic dissection, pulmonary embolism, pneumonia, pneumothorax, musculoskeletal, infections, pericarditis, myocarditis , esophageal rupture, gastrointestinal, as well as others were entertained. Physical examination: As above. ER treatment provided: Oral aspirin On reassessment the patient felt better. Diagnostic interpretation by me: The electrocardiogram was negative for pathologic change. The labs revealed an unremarkable CBC and chemistry panel. Cardiac markers negative. Imaging studies: Chest x-ray as above Patient has been having exertional shortness of breath and chest discomfort. He was referred by his primary physician for further management. His initial workup is negative but further testing will be necessary. Consultation: A consultation was placed with the hospitalist. The case was discussed and diagnostics were reviewed. The patient was evaluated in the ER for further treatment. Medication Reconcilliation Current Medication List: was personally reviewed by me Blood Pressure Screening Patient's blood pressure: Elevated blood pressure Monitored by the hospitalist Consults Time Called: 1725 Consulting Physician: Shannon Baca Returned Call: [phone] Discussed the patient's case with Shannon STERLING [facility] Hospitalist. The patient will be evaluated for further treatment and disposition. Impression Primary Impression: Left sided chest pain Additional Impression: SOB (shortness of breath) Scribe Attestation The scribe's documentation has been prepared under my direction and personally reviewed by me in its entirety. I confirm that the note above accurately reflects all work, treatment, procedures, and medical decision making performed by me. Departure Information Dispostion Being Evaluated By Hospitalist Referrals Musa Stout M.D. (PCP) Patient Instructions My [facility] Problem Qualifiers
[2017-09-22] MEDS ORDERED: NITROGLYCERIN 0.4 MG SL PER TAB CHARGE SL PRN (17:45)
--- NOTE | 2017-09-22 18:06 | History and Physical ---
History & Physical Date & Time of Service: Sep 22, 2017 at 18:02 Chief Complaint: Tightness In Chest Primary Care Physician: Musa Stout M.D. History of Present Illness Source: patient, family, clinic records, hospital records 77 yo Male with PMH Anemia, HTN, Dyslipidemia, CKD stage 3, NAHEED, Morbid obesity , Diastolic heart failure present to the ER with chest tightness associated with SOB. Pt was at PCP office today and was sent to the ER for eval of the chest tightness. Pt said that for the last few weeks he has been having SOB on exertion. He said that SOB has been getting worst lately. Pt said that he also develops left side chest tightness with exertion. He said that he also has pain in the right side of his arm whenever he has the chest tightness. He said that symptoms improve with rest. He also complaint of swelling in his LE. Currently patient denies any chest tightness. Denies any diaphoresis, dizziness, fever, nausea, numbness and weakness. Past Medical/Surgical History Medical Problems: (1) Abdominal pain, left lower quadrant (2) Anemia, unspecified (3) ASCVD (arteriosclerotic cardiovascular disease) (4) Bleeding from varicose vein (5) BPH without obstruction/lower urinary tract symptoms (6) Carpal tunnel syndrome (7) Chest pain (8) Constipation (9) Diastolic heart failure (10) GERD (gastroesophageal reflux disease) (11) Gout (12) Hypertension (13) Insomnia (14) LEFT BB BLOCK NEC (15) Major depression (16) Obstructive sleep apnea on CPAP (17) Osteoarthrosis (18) Restless leg syndrome Surgical Problems: (1) H/O cataract removal with insertion of prosthetic lens (2) H/O sinus surgery (3) History of bilateral knee arthroplasty (4) History of total right hip arthroplasty (5) Hx of cholecystectomy Family History Hypertension Social History Smoking Status: Never Smoker Drug Use: none Marital Status: Housing status: lives with family Occupational Status: retired Immunizations History of Influenza Vaccine: Yes Influenza Vaccine Date: Apr 06, 2012 History of Tetanus Vaccine?: Unknown Tetanus Immunization Date: Jul 10, 2004 History of Pneumococcal: Yes Pneumococcal Date: Jul 10, 2007 History of Hepatitis B Vaccine: Unknown Allergies Coded Allergies: No Known Allergies (Verified , 09/22/17) Home Medications Scheduled Allopurinol (Allopurinol), 300 MG PO DAILY Amlodipine (Norvasc), 5 MG PO DAILY Aspirin (Aspirin Ec), 81 MG PO DAILY Atorvastatin (Lipitor), 10 MG PO DAILY Calcium Carbonate (Tums), 2 TAB PO DAILY Carvedilol (Coreg), 6.25 MG PO BID Cholecalciferol (Vitamin D3), 2,000 INTER.UNIT PO DAILY Citalopram (Citalopram Hydrobromide), 20 MG PO DAILY Hydralazine HCl (Hydralazine HCl), 1 TAB PO TID Levothyroxine Sodium (Synthroid), 50 MCG PO DAILY Magnesium Oxide (Mg Supplement (Magnesium Oxide), 400 MG PO BID Terazosin (Hytrin), 1 CAP PO HS Scheduled PRN Ranitidine (Zantac), 150 MG PO DAILY PRN for Heartburn Tramadol (Ultram), 50 MG PO Q6 PRN for Pain Review of Systems Constitutional: + fatigue, No fever, No chills Eyes: No eye pain, No diplopia ENT: No nasal symptoms, No sore throat Respiratory: + dyspnea on exertion, No cough, No wheezing Cardiovascular: + edema, + problem reported (Chest tightness), No claudication Abdomen: No nausea, No vomiting, No diarrhea Genitourinary - Male: No hematuria, No dysuria Neurologic: No paralysis, No numbness/tingling Psychiatric: No substance abuse Endocrine: + fatigue, No excessive thirst Hematologic / Lymphatic: No clotting problems, No night sweats Integumentary: No rash, No itch Physical Exam Vital Signs Date Time Temp Pulse Resp B/P (MAP) Pulse Ox O2 Delivery O2 Flow Rate FiO2 09/22/17 17:41 61 23 173/80 94 Room Air 09/22/17 16:23 71 09/22/17 15:42 95 Room Air 09/22/17 15:42 77 168/80 95 Room Air 09/22/17 15:42 95 Room Air 09/22/17 15:23 36.8 58 22 162/71 95 Room Air General Appearance: WD/WN, no apparent distress Head: normocephalic, atraumatic Eyes: PERRL, EOMI ENT: hearing grossly normal Neck: supple, no JVD, no carotid bruits Respiratory/Chest: chest non-tender, normal breath sounds, no respiratory distress, no accessory muscle use Cardiovascular: regular rate, rhythm, no murmur Abdomen/GI: normal bowel sounds, non tender Back: no CVA tenderness Extremities/Musculoskelatal: no calf tenderness, + pertinent finding (+1 Edema L>R) Neurologic/Psych: no motor/sensory deficits, alert, normal mood/affect Skin: warm/dry, no rash Diagnostics Laboratory Results Results Past 24 Hours Test 09/22/17 15:44 Range/Units White Blood Count 6.11 4.8-10.8 K/uL Red Blood Count 4.14 4.7-6.1 M/uL Hemoglobin 13.0 14.0-18.0 g/dL Hematocrit 38.4 42-52 % Mean Corpuscular Volume 92.8 80-100 fL Mean Corpuscular Hemoglobin 31.4 25-34 pg Mean Corpuscular Hemoglobin Concent 33.9 32-36 g/dl Platelet Count 140 130-400 K/uL Mean Platelet Volume 11.9 7.4-10.4 fL Neutrophils (%) (Auto) 70.2 % Lymphocytes (%) (Auto) 16.5 % Monocytes (%) (Auto) 8.5 % Eosinophils (%) (Auto) 4.1 % Basophils (%) (Auto) 0.5 % Neutrophils # (Auto) 4.29 1.4-6.5 K/uL Lymphocytes # (Auto) 1.01 1.2-3.4 K/uL Monocytes # (Auto) 0.52 0.11-0.59 K/uL Eosinophils # (Auto) 0.25 0-0.5 K/uL Basophils # (Auto) 0.03 0-0.2 K/uL RDW Standard Deviation 47.4 36.4-46.3 fL RDW Coefficient of Variation 14.0 11.5-14.5 % Immature Granulocyte % (Auto) 0.2 % Immature Granulocyte # (Auto) 0.01 0.00-0.02 K/uL Prothrombin Time 10.0 9.0-12.0 SECONDS Prothromb Time International Ratio 1.0 0.9-1.1 Activated Partial Thromboplast Time 23.1 21.0-31.0 SECONDS Partial Thromboplastin Ratio 0.9 Sodium Level 142 136-145 mmol/L Potassium Level 3.5 3.5-5.1 mmol/L Chloride Level 106 98-107 mmol/L Carbon Dioxide Level 30 21-32 mmol/L Anion Gap 6.0 3-11 mmol/L Blood Urea Nitrogen 20 7-18 mg/dl Creatinine 1.23 0.60-1.40 mg/dl Est Creatinine Clear Calc Drug Dose 61.9 ml/min Estimated GFR () 65.2 Estimated GFR (Non- 56.3 BUN/Creatinine Ratio 16.3 10-20 Random Glucose 117 70-99 mg/dl Calcium Level 7.8 8.5-10.1 mg/dl Total Bilirubin 0.7 0.2-1 mg/dl Direct Bilirubin 0.2 0-0.2 mg/dl Aspartate Amino Transf (AST/SGOT) 23 15-37 U/L Alanine Aminotransferase (ALT/SGPT) 25 12-78 U/L Alkaline Phosphatase 60 45-117 U/L Total Creatine Kinase 137 39-308 U/L Creatine Kinase MB 1.1 0.5-3.6 ng/ml Creatine Kinase MB Ratio 0.8 0-3.0 Troponin I < 0.015 0-0.045 ng/ml Pro-B-Type Natriuretic Peptide 305 0-1800 pg/ml Total Protein 6.5 6.4-8.2 gm/dl Albumin 3.6 3.4-5.0 gm/dl Lipase 197 73-393 U/L Diagnostic Radiology [~ rep ct add3]] CHEST ONE VIEW PORTABLE CLINICAL HISTORY: Atypical chest pain COMPARISON STUDY: 06/17/2017 FINDINGS: The heart remains enlarged. There is aortic tortuosity/ectasia. There is mild central vascular prominence without evidence of overt failure. There is no focal pulmonary consolidation. There are no pleural effusions.[ IMPRESSION: Stable cardiomegaly. No evidence of focal pulmonary consolidation Electronically signed by: Jason Ghosh M.D. 09/22/2017 3:56 PM Dictated Date/Time: 09/22/2017 3:55 PM Impression Assessment and Plan Chest tightness and SOB on exertion Need to R/o ACS Last cardiac cath 05/2010 with moderate nonobstructive CAD CXR showed Stable cardiomegaly. No evidence of focal pulmonary consolidation 1st set Troponin negative BNP wnl EKG showed no ischemic changes Will get 2 more set of troponin and check EKG in am Received Nitro subl and aspirin in the ER Cardiology consult Will get resting echo Will continue aspirin, statin and carvedilol Will make NPO except med after Midnight for possible dobutamine stress test Continue monitor in tele Last ECHO 11/20 The examination is limited quality but adequate for evaluation of the referral indication. The LV wall thickness is mildly increased (concentric). The qualitative LV ejection fraction is 50-54% (normal). The right ventricular systolic function is normal as assessed by tricuspid annular plane systolic excursion (TAPSE) (normal >1.7 cm). The left atrium is normal sized (< 35 ml/m^2). The right atrial size is normal. Mild mitral regurgitation is present. There is trace tricuspid regurgitation. HTN BP elevated Possible situational due to hospital setting On Amlodipine and Carvedilol and terazosin Monitor BP Hypothyroidism Continue levothyroxine 50mg Dyslipidemia Continue Statin Check lipid panel in am CKD stage 3 Creatine on admission 1.2 Stable Gout continue Allopurinol Chronic diastolic heart failure ProBNP WNL CXR showed no pulmonary edema Clinically stable ECHO in am NAHEED Continue CPAP HS DVT px On heparin subq CODE STATUS FULL CODE Resuscitation Status VTE Prophylaxis Will order VTE Prophylaxis: Yes
[2017-09-22] MEDS ORDERED: IV FLUIDS COMPLETED PRN (19:00)
[2017-09-22] MEDS ORDERED: CALC500C3 PO (19:16)
[2017-09-22] MEDS ORDERED: TRAM-10 PO (19:16)
[2017-09-22] MEDS ORDERED: TERA5CAP PO (19:16)
[2017-09-22] MEDS ORDERED: MAGN1TAB19 PO (19:16)
[2017-09-22] MEDS ORDERED: APR50 PO (19:16)
[2017-09-22] MEDS ORDERED: RANI150T85 PO (19:16)
[2017-09-22 20:11] VITALS: BP 214/83; PULSE 72; TEMP 37.3; O2SAT 92
[2017-09-22 20:30] VITALS: BP 172/93; PULSE 76
[2017-09-22 21:33] VITALS: BP 177/86; PULSE 73; TEMP 37.2
[2017-09-22] MEDS: CARVEDILOL 6.25 MG TAB PO SCH (21:34)
[2017-09-22] MEDS: HEPARIN SOD 5000 UNIT/0.5 ML CARP SQ SCH (21:38)
[2017-09-22 22:12] VITALS: BP 177/86; PULSE 73; TEMP 37.2; O2SAT 92; Ht 170.2 cm; Wt 123.2 kg
[2017-09-23] VITALS (11 sets, daily range): BP systolic 142–202; BP diastolic 60–97; PULSE 55–76; TEMP 36.6–37.1; O2SAT 92–95
[2017-09-23 03:43] LABS: HEMATOCRIT 36.1 % (42-52); HEMOGLOBIN 12.7 g/dL (14.0-18.0); MEAN CELL VOLUME 92.8 fL (80-100); MEAN CORPUSCULAR HEMOGLOBIN 32.6 pg (25-34); MEAN CORPUSCULAR HGB CONC 35.2 g/dl (32-36); MEAN PLATELET VOLUME 11.3 fL (7.4-10.4); PLATELET COUNT 133 K/uL (130-400); RED CELL DISTRIBUTION WIDTH CV 13.9 % (11.5-14.5); WHITE BLOOD COUNT 5.34 K/uL (4.8-10.8)
[2017-09-23 04:06] LABS: CALCIUM 7.5 mg/dl (8.5-10.1); CREATININE 1.25 mg/dl (0.60-1.40); POTASSIUM 3.4 mmol/L (3.5-5.1)
[2017-09-23] MEDS: LEVOTHYROXINE 50 MCG TAB PO SCH (06:23)
[2017-09-23] MEDS: HEPARIN SOD 5000 UNIT/0.5 ML CARP SQ SCH ×3 (06:29→20:32)
[2017-09-23] MEDS: CARVEDILOL 6.25 MG TAB PO SCH ×2 (08:01→20:28)
[2017-09-23] MEDS: ATORVASTATIN 10 MG TAB PO SCH (08:02)
[2017-09-23] MEDS: ASPIRIN 81 MG ECTAB PO SCH (08:02)
[2017-09-23] MEDS: AMLODIPINE BESYLATE 5 MG TAB PO SCH (08:03)
[2017-09-23] MEDS: ALLOPURINOL 300 MG TAB PO SCH (08:03)
[2017-09-23] MEDS: CITALOPRAM 20 MG TAB PO SCH (08:03)
[2017-09-23] MEDS: PANTOprazole SOD 40 MG TAB PO SCH (08:04)
[2017-09-23] MEDS ORDERED: POTASSIUM CHLORIDE 10 MEQ TABCR PO STA (11:01)
--- NOTE | 2017-09-23 11:08 | Cardiology Consultation ---
Cardiology Consultation Date of Consultation: Sep 23, 2017 Requesting Physician: Dr. June Jones, reason for consultation: Chest pain Attending Vise Hand: Dr. Neal Barlow History of Present Illness Patient is a 77 year old male seen for evaluation of chest discomfort. Patient describes abdominal pain beginning yesterday in the early afternoon after consuming a meal. The pain slowly radiate up into his substernal region associated with shortness of breath. Discomfort lasted more than 1 hour he came to the emergency department for further evaluation. Long-standing history of heartburn treated with both Tagamet and more recently proton pump inhibitor. Notes exertional dyspnea as well as at times exertional chest tightness. Complex cardiovascular history listed below. Daughter present at bedside. Currently the patient is asymptomatic. Denies orthopnea, PND, or palpitations. Telemetry demonstrate sinus rhythm with left bundle branch block. Occasional PVCs noted. Most recent ischemic evaluation includes cardiac catheterization performed 2011 which demonstrated mild nonobstructive coronary disease. Patient offers no other complaints at this time. Past Medical/Surgical History Problem List: Medical Problems: (1) Anemia, unspecified (2) ASCVD (arteriosclerotic cardiovascular disease) (3) BPH without obstruction/lower urinary tract symptoms (4) Carpal tunnel syndrome (5) Chest pain (6) Diastolic heart failure (7) GERD (gastroesophageal reflux disease) (8) Gout (9) Hypertension (10) Insomnia (11) LEFT BB BLOCK NEC (12) Major depression (13) Obstructive sleep apnea on CPAP (14) Osteoarthrosis (15) Restless leg syndrome (16) SOB (shortness of breath) Surgical Problems: (1) H/O cataract removal with insertion of prosthetic lens (2) H/O sinus surgery (3) History of bilateral knee arthroplasty (4) History of total right hip arthroplasty (5) Hx of cholecystectomy (6) cardiac catheterization 2011 demonstrating mild nonobstructive CAD Family History Hypertension Patient with 1 child. Lifelong non-smoker. Denies alcohol use. Social History Smoking Status: Never Smoker Drug Use: none Marital Status: Housing Status: lives with family Occupation: retired Review Of Systems Pertinent positives noted per HPI, otherwise: General: The patient denies weight change, night sweats, fever, chills. Head: The patient denies headache and prior head trauma. Cardiovascular: The patient denies chest pain or chest discomfort, dyspnea on exertion, palpitations, PND, orthopnea, edema, spontaneous shortness of breath, syncope and near syncope. Pulmonary: The patient denies cough, wheeze, pleurisy, hemoptysis, sputum, and excessive snoring. Gastrointestinal: The patient denies nausea, vomiting, diarrhea, constipation, bloating, hematemesis, hematochezia, and abdominal pain. Skin: The patient denies diaphoresis and rash. Musculoskeletal: The patient denies joint pain, joint swelling, myalgia, back pain, neck pain and prior injuries. Neurological: The patient denies prior stroke and seizures Allergies Coded Allergies: No Known Allergies (Verified , 09/22/17) Medications Reported Home Medications Medications Dose Route/Sig Max Daily Dose Days Date Category Dose Instructions Ultram (Tramadol HCl) 50 Mg Tab 50 Mg PO Q6 PRN 09/22/17 Reported Tums (Calcium Carbonate) 500 Mg Chew 2 Tab PO DAILY 09/22/17 Reported Magnesium Oxide (Magnesium Oxide (Mg Supplement) 400 Mg Tab 400 Mg PO BID 09/22/17 Reported Zantac (Ranitidine HCl) 150 Mg Tab 150 Mg PO DAILY PRN 09/22/17 Reported 30 to 60 minutes before eating food or drinking beverages that cause heartburn Hytrin (Terazosin HCl) 5 Mg Cap 1 Cap PO HS 09/22/17 Reported Hydralazine HCl 50 Mg Tab 1 Tab PO TID 09/22/17 Reported Coreg (Carvedilol) 3.125 Mg Tab 6.25 Mg PO BID 09/22/17 Reported Norvasc (Amlodipine Besylate) 5 Mg Tab 5 Mg PO DAILY 09/22/17 Reported Aspirin Ec (Aspirin) 81 Mg Tab 81 Mg PO DAILY 02/04/16 Reported Vitamin D3 (Cholecalciferol) 2,000 Unit Cap 2,000 Inter.unit PO DAILY 02/04/16 Reported Allopurinol 300 Mg Tab 300 Mg PO DAILY 02/04/16 Reported Lipitor (Atorvastatin Calcium) 10 Mg Tab 10 Mg PO DAILY 02/04/16 Reported Synthroid (Levothyroxine Sodium) 50 Mcg Tab 50 Mcg PO DAILY 07/16/14 Reported Citalopram Hydrobromide (Citalopram) 20 Mg Tab 20 Mg PO DAILY 10/27/13 Reported Physical Exam Vital Signs (Last 8hrs): Last 8 Hrs Date Time Temp Pulse Resp B/P (MAP) Pulse Ox O2 Delivery O2 Flow Rate FiO2 09/23/17 08:00 Room Air 09/23/17 07:24 36.6 55 16 158/72 (100) 95 BiPAP 09/23/17 04:09 37.0 60 20 152/81 (104) 94 Room Air 09/23/17 04:00 Room Air 09/23/17 03:53 64 94 21 General Appearance: Alert and Oriented x3. NAD, obese. Head: Normocephalic Atraumatic. Eyes: PERRLA, EOMI, conjunctiva and sclera clear Neck: Supple. No carotid bruits noted. No JVD. No HJD. Respiratory: Breath sounds clear to auscultation bilaterally. No w/r/r. Cardiovascular: Reg rate and rhythm. S1 and S2 noted. No murmurs, rubs, gallops. PMI non displace. Abdomen: Normal bowel sounds, soft nontender. no abdominal bruits. Extremities: No edema, no clubbing or cyanosis. distal pulses 2/4 bilaterally. Neuro: No focal deficits. Psychiatric: Normal affect. Data Last 24 Hours Test 09/22/17 15:44 09/22/17 21:47 09/23/17 03:32 White Blood Count 6.11 K/uL 5.34 K/uL Red Blood Count 4.14 M/uL 3.89 M/uL Hemoglobin 13.0 g/dL 12.7 g/dL Hematocrit 38.4 % 36.1 % Mean Corpuscular Volume 92.8 fL 92.8 fL Mean Corpuscular Hemoglobin 31.4 pg 32.6 pg Mean Corpuscular Hemoglobin Concent 33.9 g/dl 35.2 g/dl Platelet Count 140 K/uL 133 K/uL Mean Platelet Volume 11.9 fL 11.3 fL Neutrophils (%) (Auto) 70.2 % Lymphocytes (%) (Auto) 16.5 % Monocytes (%) (Auto) 8.5 % Eosinophils (%) (Auto) 4.1 % Basophils (%) (Auto) 0.5 % Neutrophils # (Auto) 4.29 K/uL Lymphocytes # (Auto) 1.01 K/uL Monocytes # (Auto) 0.52 K/uL Eosinophils # (Auto) 0.25 K/uL Basophils # (Auto) 0.03 K/uL RDW Standard Deviation 47.4 fL 47.0 fL RDW Coefficient of Variation 14.0 % 13.9 % Immature Granulocyte % (Auto) 0.2 % Immature Granulocyte # (Auto) 0.01 K/uL Prothrombin Time 10.0 SECONDS Prothromb Time International Ratio 1.0 Activated Partial Thromboplast Time 23.1 SECONDS Partial Thromboplastin Ratio 0.9 Sodium Level 142 mmol/L 142 mmol/L Potassium Level 3.5 mmol/L 3.4 mmol/L Chloride Level 106 mmol/L 105 mmol/L Carbon Dioxide Level 30 mmol/L 31 mmol/L Anion Gap 6.0 mmol/L 6.0 mmol/L Blood Urea Nitrogen 20 mg/dl 19 mg/dl Creatinine 1.23 mg/dl 1.25 mg/dl Est Creatinine Clear Calc Drug Dose 61.9 ml/min 30.1 ml/min Estimated GFR () 65.2 64.0 Estimated GFR (Non- 56.3 55.2 BUN/Creatinine Ratio 16.3 15.6 Random Glucose 117 mg/dl 87 mg/dl Calcium Level 7.8 mg/dl 7.5 mg/dl Total Bilirubin 0.7 mg/dl Direct Bilirubin 0.2 mg/dl Aspartate Amino Transf (AST/SGOT) 23 U/L Alanine Aminotransferase (ALT/SGPT) 25 U/L Alkaline Phosphatase 60 U/L Total Creatine Kinase 137 U/L Creatine Kinase MB 1.1 ng/ml Creatine Kinase MB Ratio 0.8 Troponin I < 0.015 ng/ml 0.022 ng/ml 0.025 ng/ml Pro-B-Type Natriuretic Peptide 305 pg/ml Total Protein 6.5 gm/dl Albumin 3.6 gm/dl Lipase 197 U/L Triglycerides Level 82 mg/dl Cholesterol Level 94 mg/dl HDL Cholesterol 57 mg/dl LDL Cholesterol, Calculated 21 mg/dl VLDL Cholesterol, Calculated 16 mg/dl Cholesterol/HDL Ratio 1.6 Thyroid Stimulating Hormone (TSH) 3.770 uIu/ml Imaging: Chest x-ray demonstrates cardiomegaly without congestion EKG: Sinus rhythm with left bundle branch block Telemetry reviewed: Sinus rhythm, left bundle branch block, occasional PVCs Assessment & Plan Final impression: 1. 77-year-old patient presents for atypical epigastric and chest discomfort. Patient also reports exertional shortness of breath and chest tightness which is concerning for exertional angina. Initial evaluation regarding ACS is unremarkable thus far with negative troponin x3. Resting 2D transthoracic echo pending. 2. Nonobstructive coronary disease per cardiac catheterization 2009 3. Chronic left bundle branch block 4. HTN - uncontrolled 5. Frequent asymptomatic PVC's 6. GERD Plan / Recommendations: Lexiscan nuclear stress testing will be performed for further risk stratification and evaluation of chest discomfort. Resting 2D transthoracic echo will be performed today. Patient may resume his normal diet. No caffeine for 24 hours. Continue current medications. Further recommendations pending review of echocardiogram and Lexiscan nuclear stress testing. Will continue to monitor telemetry during hospitalization. I will not titrate antihypertensive medication today. Continue to follow blood pressure closely. Thank you for allowing me to participate in the care of your patient.
--- NOTE | 2017-09-23 12:53 | Progress Note ---
Internal Med Progress Note Date of Service: Sep 23, 2017. Provider Documentation: SUBJECTIVE: The patient was seen and examined Denies any more Chest pain and or tightness Denies any other symptoms OBJECTIVE: Vital Signs-as noted below Exam: General-No distress at rest Eyes-normal ENT-normal Neck-supple Lungs-decreased breath sound bilaterally Heart-Regular,no murmur appreciated Abdomen-Benign,no masses,bowel sound present Extremities-Trace edema bilaterally Neuro-AAOx3 Lab data as noted below. Last ECHO 11/20 The examination is limited quality but adequate for evaluation of the referral indication. The LV wall thickness is mildly increased (concentric). The qualitative LV ejection fraction is 50-54% (normal). The right ventricular systolic function is normal as assessed by tricuspid annular plane systolic excursion (TAPSE) (normal >1.7 cm). The left atrium is normal sized (< 35 ml/m^2). The right atrial size is normal. Mild mitral regurgitation is present. There is trace tricuspid regurgitation. ASSESSMENT & PLAN: Chest tightness and SOB on exertion Last cardiac cath 05/2010 with moderate nonobstructive CAD CXR showed Stable cardiomegaly. No evidence of focal pulmonary consolidation Serial Troponins negative for any ACS EKG showed no ischemic changes Received Nitro subl and aspirin in the ER Cardiology consult-appreciate input Will continue aspirin, statin and carvedilol ECHO -pending Lexiscan Scan tomorrow HTN BP elevated Possible situational due to hospital setting On Amlodipine and Carvedilol and terazosin Monitor BP Hypothyroidism Continue levothyroxine 50mg Dyslipidemia Continue Statin Check lipid panel in am CKD stage 3 Creatine on admission 1.2 Stable Gout continue Allopurinol Chronic diastolic heart failure ProBNP WNL CXR showed no pulmonary edema Clinically stable ECHO to evaluate further management NAHEED Continue CPAP HS DVT px On heparin subq CODE STATUS FULL CODE Vital Signs: Date Time Temp Pulse Resp B/P (MAP) Pulse Ox O2 Delivery O2 Flow Rate FiO2 09/23/17 12:00 Room Air 09/23/17 11:05 37.0 65 16 150/78 (102) 95 Room Air 09/23/17 08:00 Room Air 09/23/17 07:24 36.6 55 16 158/72 (100) 95 BiPAP 09/23/17 04:09 37.0 60 20 152/81 (104) 94 Room Air 09/23/17 04:00 Room Air 09/23/17 03:53 64 94 21 09/23/17 00:00 37.1 62 20 150/60 (90) 93 Room Air 09/23/17 00:00 Room Air 09/22/17 22:12 37.2 73 24 177/86 92 Room Air 09/22/17 21:33 37.2 73 177/86 (116) 09/22/17 20:30 76 172/93 (119) 09/22/17 20:11 37.3 72 24 214/83 (126) 92 Room Air 09/22/17 19:36 75 18 177/93 95 Room Air 09/22/17 17:41 61 23 173/80 94 Room Air 09/22/17 16:23 71 09/22/17 15:42 95 Room Air 09/22/17 15:42 77 168/80 95 Room Air 09/22/17 15:42 95 Room Air 09/22/17 15:23 36.8 58 22 162/71 95 Room Air Lab Results: Results Past 24 Hours Test 09/22/17 15:44 09/22/17 21:47 09/23/17 03:32 Range/Units White Blood Count 6.11 5.34 4.8-10.8 K/uL Red Blood Count 4.14 3.89 4.7-6.1 M/uL Hemoglobin 13.0 12.7 14.0-18.0 g/dL Hematocrit 38.4 36.1 42-52 % Mean Corpuscular Volume 92.8 92.8 80-100 fL Mean Corpuscular Hemoglobin 31.4 32.6 25-34 pg Mean Corpuscular Hemoglobin Concent 33.9 35.2 32-36 g/dl Platelet Count 140 133 130-400 K/uL Mean Platelet Volume 11.9 11.3 7.4-10.4 fL Neutrophils (%) (Auto) 70.2 % Lymphocytes (%) (Auto) 16.5 % Monocytes (%) (Auto) 8.5 % Eosinophils (%) (Auto) 4.1 % Basophils (%) (Auto) 0.5 % Neutrophils # (Auto) 4.29 1.4-6.5 K/uL Lymphocytes # (Auto) 1.01 1.2-3.4 K/uL Monocytes # (Auto) 0.52 0.11-0.59 K/uL Eosinophils # (Auto) 0.25 0-0.5 K/uL Basophils # (Auto) 0.03 0-0.2 K/uL RDW Standard Deviation 47.4 47.0 36.4-46.3 fL RDW Coefficient of Variation 14.0 13.9 11.5-14.5 % Immature Granulocyte % (Auto) 0.2 % Immature Granulocyte # (Auto) 0.01 0.00-0.02 K/uL Prothrombin Time 10.0 9.0-12.0 SECONDS Prothromb Time International Ratio 1.0 0.9-1.1 Activated Partial Thromboplast Time 23.1 21.0-31.0 SECONDS Partial Thromboplastin Ratio 0.9 Sodium Level 142 142 136-145 mmol/L Potassium Level 3.5 3.4 3.5-5.1 mmol/L Chloride Level 106 105 98-107 mmol/L Carbon Dioxide Level 30 31 21-32 mmol/L Anion Gap 6.0 6.0 3-11 mmol/L Blood Urea Nitrogen 20 19 7-18 mg/dl Creatinine 1.23 1.25 0.60-1.40 mg/dl Est Creatinine Clear Calc Drug Dose 61.9 30.1 ml/min Estimated GFR () 65.2 64.0 Estimated GFR (Non- 56.3 55.2 BUN/Creatinine Ratio 16.3 15.6 10-20 Random Glucose 117 87 70-99 mg/dl Calcium Level 7.8 7.5 8.5-10.1 mg/dl Total Bilirubin 0.7 0.2-1 mg/dl Direct Bilirubin 0.2 0-0.2 mg/dl Aspartate Amino Transf (AST/SGOT) 23 15-37 U/L Alanine Aminotransferase (ALT/SGPT) 25 12-78 U/L Alkaline Phosphatase 60 45-117 U/L Total Creatine Kinase 137 39-308 U/L Creatine Kinase MB 1.1 0.5-3.6 ng/ml Creatine Kinase MB Ratio 0.8 0-3.0 Troponin I < 0.015 0.022 0.025 0-0.045 ng/ml Pro-B-Type Natriuretic Peptide 305 0-1800 pg/ml Total Protein 6.5 6.4-8.2 gm/dl Albumin 3.6 3.4-5.0 gm/dl Lipase 197 73-393 U/L Triglycerides Level 82 0-150 mg/dl Cholesterol Level 94 0-200 mg/dl HDL Cholesterol 57 mg/dl LDL Cholesterol, Calculated 21 mg/dl VLDL Cholesterol, Calculated 16 mg/dl Cholesterol/HDL Ratio 1.6 Thyroid Stimulating Hormone (TSH) 3.770 0.300-4.500 uIu/ml
[2017-09-24 03:51] VITALS: BP 151/65; PULSE 62; TEMP 36.6; O2SAT 94
[2017-09-24] MEDS: LEVOTHYROXINE 50 MCG TAB PO SCH (06:03)
[2017-09-24] MEDS: HEPARIN SOD 5000 UNIT/0.5 ML CARP SQ SCH ×2 (06:05→14:14)
[2017-09-24 07:01] VITALS: BP 179/87; PULSE 67; TEMP 36.9; O2SAT 94
[2017-09-24 07:33] LABS: HEMATOCRIT 36.7 % (42-52); HEMOGLOBIN 12.7 g/dL (14.0-18.0); MEAN CELL VOLUME 92.2 fL (80-100); MEAN CORPUSCULAR HEMOGLOBIN 31.9 pg (25-34); MEAN CORPUSCULAR HGB CONC 34.6 g/dl (32-36); MEAN PLATELET VOLUME 11.4 fL (7.4-10.4); PLATELET COUNT 133 K/uL (130-400); RED CELL DISTRIBUTION WIDTH CV 13.7 % (11.5-14.5); RED CELL DISTRIBUTION WIDTH SD 46.1 fL (36.4-46.3); WHITE BLOOD COUNT 5.51 K/uL (4.8-10.8)
[2017-09-24 08:06] LABS: CALCIUM 7.7 mg/dl (8.5-10.1); CREATININE 1.22 mg/dl (0.60-1.40); POTASSIUM 3.5 mmol/L (3.5-5.1)
[2017-09-24] MEDS: ASPIRIN 81 MG ECTAB PO SCH (09:56)
[2017-09-24] MEDS: ALLOPURINOL 300 MG TAB PO SCH (09:56)
[2017-09-24] MEDS: CARVEDILOL 6.25 MG TAB PO SCH (09:56)
[2017-09-24] MEDS: AMLODIPINE BESYLATE 5 MG TAB PO SCH (09:56)
[2017-09-24] MEDS: CITALOPRAM 20 MG TAB PO SCH (09:56)
[2017-09-24] MEDS: ATORVASTATIN 10 MG TAB PO SCH (09:56)
[2017-09-24] MEDS: PANTOprazole SOD 40 MG TAB PO SCH (09:56)
[2017-09-24 11:02] VITALS: BP 171/71; PULSE 75; TEMP 36.7; O2SAT 93
[2017-09-24] MEDS ORDERED: REGADENOSON 0.4 MG/5 ML SYR ONE (12:14)
[2017-09-24 15:12] VITALS: BP 145/80; PULSE 78; TEMP 36.8; O2SAT 94
[2017-09-24] MEDS ORDERED: PERFLUTREN LIPID MICROSPHERE (DEFINITY) IV ONE (15:40)
--- NOTE | 2017-09-24 15:51 | Progress Note ---
Internal Med Progress Note Date of Service: Sep 24, 2017. Provider Documentation: SUBJECTIVE: The patient was seen and examined Denies any more Chest pain and or tightness Denies any other symptoms Lexiscan is negative for any Ischemia OBJECTIVE: Vital Signs-as noted below Exam: General-No distress at rest Eyes-normal ENT-normal Neck-supple Lungs-decreased breath sound bilaterally Heart-Regular,no murmur appreciated Abdomen-Benign,no masses,bowel sound present Extremities-Trace edema bilaterally Neuro-AAOx3 Lab data as noted below. Last ECHO 11/20 The examination is limited quality but adequate for evaluation of the referral indication. The LV wall thickness is mildly increased (concentric). The qualitative LV ejection fraction is 50-54% (normal). The right ventricular systolic function is normal as assessed by tricuspid annular plane systolic excursion (TAPSE) (normal >1.7 cm). The left atrium is normal sized (< 35 ml/m^2). The right atrial size is normal. Mild mitral regurgitation is present. There is trace tricuspid regurgitation. ASSESSMENT & PLAN: Chest tightness and SOB on exertion Last cardiac cath 05/2010 with moderate nonobstructive CAD CXR showed Stable cardiomegaly. No evidence of focal pulmonary consolidation Serial Troponins negative for any ACS EKG showed no ischemic changes Received Nitro subl and aspirin in the ER Cardiology consult-appreciate input Will continue aspirin, statin and carvedilol ECHO -pending Lexiscan Scan tomorrow-Negative Will discharge home today HTN BP elevated Possible situational due to hospital setting On Amlodipine and Carvedilol and terazosin Monitor BP-controlled Hypothyroidism Continue levothyroxine 50mg Dyslipidemia Continue Statin Check lipid panel in am CKD stage 3 Creatine on admission 1.2 Normalized Gout continue Allopurinol Chronic diastolic heart failure ProBNP WNL CXR showed no pulmonary edema Clinically stable Has had a Lexiscan stress test today which is negative for any Ischemia NAHEED Continue CPAP HS DVT px On heparin subq CODE STATUS FULL CODE Discharge home today Vital Signs: Date Time Temp Pulse Resp B/P (MAP) Pulse Ox O2 Delivery O2 Flow Rate FiO2 09/24/17 15:12 36.8 78 18 145/80 (101) 94 09/24/17 12:00 Room Air 09/24/17 11:02 36.7 75 18 171/71 (104) 93 Room Air 09/24/17 08:00 Room Air 09/24/17 07:01 36.9 67 18 179/87 (117) 94 Room Air 09/24/17 04:00 CPAP 09/24/17 03:51 36.6 62 16 151/65 (93) 94 BiPAP 09/24/17 00:00 CPAP 09/23/17 23:29 37.0 68 14 145/70 (95) 94 BiPAP 09/23/17 21:57 76 95 21 09/23/17 21:34 154/68 (96) 09/23/17 20:26 67 196/97 (130) 09/23/17 20:00 Room Air 09/23/17 19:29 36.7 61 16 202/96 (131) 94 Room Air 09/23/17 16:00 Room Air Lab Results: Results Past 24 Hours Test 09/24/17 07:24 Range/Units White Blood Count 5.51 4.8-10.8 K/uL Red Blood Count 3.98 4.7-6.1 M/uL Hemoglobin 12.7 14.0-18.0 g/dL Hematocrit 36.7 42-52 % Mean Corpuscular Volume 92.2 80-100 fL Mean Corpuscular Hemoglobin 31.9 25-34 pg Mean Corpuscular Hemoglobin Concent 34.6 32-36 g/dl RDW Standard Deviation 46.1 36.4-46.3 fL RDW Coefficient of Variation 13.7 11.5-14.5 % Platelet Count 133 130-400 K/uL Mean Platelet Volume 11.4 7.4-10.4 fL Sodium Level 140 136-145 mmol/L Potassium Level 3.5 3.5-5.1 mmol/L Chloride Level 106 98-107 mmol/L Carbon Dioxide Level 28 21-32 mmol/L Anion Gap 6.0 3-11 mmol/L Blood Urea Nitrogen 21 7-18 mg/dl Creatinine 1.22 0.60-1.40 mg/dl Est Creatinine Clear Calc Drug Dose 63.8 ml/min Estimated GFR () 65.9 Estimated GFR (Non- 56.8 BUN/Creatinine Ratio 17.3 10-20 Random Glucose 96 70-99 mg/dl Calcium Level 7.7 8.5-10.1 mg/dl Magnesium Level 2.0 1.8-2.4 mg/dl
--- NOTE | 2017-09-24 16:13 | Discharge Instructions ---
Discharge Instructions Date of Service Sep 24, 2017. Admission Reason for Admission: Chest Pain Discharge Discharge Diagnosis / Problem: Chest pain,Negative Lexiscan stress test Discharge Goals Goal(s): Prevent Disease Progression Activity Recommendations Activity Limitations: resume your previous activity . Instructions / Follow-Up Instructions / Follow-Up Dr Stout on 10/01/17 at 1:05 PM Current Hospital Diet Patient's current hospital diet: AHA Diet (Heart Healthy), Low Sodium Diet (2gm Na) Discharge Diet Recommended Diet: AHA Diet (Heart Healthy), Low Sodium Diet (2gm Na) Pending Studies Studies pending at discharge: no Laboratory Results Lipid Panel Test 09/23/17 03:32 Range/Units Triglycerides Level 82 0-150 mg/dl Cholesterol Level 94 0-200 mg/dl HDL Cholesterol 57 mg/dl Cholesterol/HDL Ratio 1.6 LDL Cholesterol, Calculated 21 mg/dl Medical Emergencies . Who to Call and When: Medical Emergencies: If at any time you feel your situation is an emergency, please call 911 immediately. . Non-Emergent Contact Non-Emergency issues call your: Primary Care Provider . Past History Medical & Surgical History: (1) Left sided chest pain (2) Restless leg syndrome (3) Obstructive sleep apnea on CPAP (4) Major depression (5) Hypertension (6) Diastolic heart failure (7) Gout (8) Osteoarthrosis (9) Carpal tunnel syndrome (10) ASCVD (arteriosclerotic cardiovascular disease) (11) Anemia, unspecified (12) LEFT BB BLOCK NEC (13) GERD (gastroesophageal reflux disease) (14) Hx of cholecystectomy (15) History of bilateral knee arthroplasty (16) H/O sinus surgery (17) H/O cataract removal with insertion of prosthetic lens (18) History of total right hip arthroplasty . "Provider Documentation" section prepared by Erick Parker. .
[2017-09-24 16:23] VITALS: BP 145/80; PULSE 78; TEMP 36.8; O2SAT 94
--- NOTE | 2017-09-24 16:25 | MYOCARDIAL PERFUSION SCAN ---
RESTING ECG: Sinus rhythm with left bundle branch block, occasional PVCs. STRESS ECG: Sinus rhythm, left bundle branch block, frequent PVCs. STRESS ECG CONCLUSION: Nondiagnostic for inducible ischemia due to underlying left bundle branch block. The patient underwent stress test according to a Lexiscan protocol for 3 minutes 17 seconds. Resting heart rate of 67 beats per minute which vania to maximum heart rate of 85 beats per minute. This value represents 59% of the maximal, age predicted heart rate. The resting blood pressure was 178/77 which vania to a maximum blood pressure of 178/77. The recovery blood pressure was 146/70. SYMPTOMS DURING TESTING: Abdominal discomfort, nausea, chest tightness. All symptoms relieved prior to leaving the stress suite. CONCLUSION: Lexiscan ECG nondiagnostic for inducible ischemia due to underlying left bundle branch block. TECHNIQUE: For the stress portion of the study, 32.6 mCi of Technetium 99 m Cardiolite IV was injected at 1305 pm on 09/24/2017. Thirty minutes following the injection, imaging of the heart was performed in multiple projection. For the rest portion of the study, 11.1 mCi of Technetium 99 m Cardiolite was injected IV at 1130 am. One hour following the injection, imaging of the heart was performed in the same projections. RAW DATA: No extraneous uptake of isotopic tracer visualized. RIGHT VENTRICLE: Not well visualized. RESTING STUDY: Small defect of mild intensity involving the base lateral wall, otherwise normal perfusion. STRESS IMAGES: Normal perfusion. GATED STUDY: Left ventricular size is normal at rest. Left ventricular wall motion appears normal; however, limited quality due to underlying conduction abnormality and frequent PVCs. The calculated ejection fraction is 49%, however, qualitatively the ejection fraction appears to be 50-55%. TID was not calculated. CONCLUSION: Lexiscan nuclear stress test negative for inducible ischemia. Limited quality gated SPECT imaging demonstrates normal wall motion with borderline diminished LV function quantitatively however qualitatively the LV systolic function appears normal.
--- NOTE | 2017-09-24 17:41 | ECHOCARDIOGRAM REPORT ---
*NOTICE TO RECEIVING DEMOCRAT AGENCY This information is strictly Confidential and protected under [place] law. [place] law prohibits you from making any further disclosure of this information unless further disclosure is expressly permitted by the written consent of the person to whom it pertains or is authorized by law. A general authorization for the release of medical or other information is not sufficient for this purpose. Hospital accepts no responsibility if the information is made available to any other person, INCLUDING THE PATIENT. Interpretation Summary * Name: LLOYD CURTIS Study Date: 09/24/2017 03:06 PM BP: 158/72 mmHg * Patient Location: [facility]\S\N275\S\2 HR: 55 * : 1940 (M/d/yy) Gender: Male Height: 67 in * Age: 77 yrs Ethnicity: [place] Weight: 261 lb * Ordering Physician: June Jones * Referring Physician: Self, Referred * Performed By: Sylvie Pan RDCS * * Reason For Study: Chest Pain * BSA: 2.3 m2 * The study was technically adequate. * Compared to prior study, there is no significant change. * -- Conclusions -- * Left ventricular systolic function is normal. * Ejection Fraction = 60-65%. * There is mild concentric left ventricular hypertrophy. * Pulse wave TDI of the anterior and posterior mitral annulas demonstrates abnormal LV relaxation * The left atrium is moderately dilated. * No significant valvular pathology. Procedure Details * A contrast injection of Definity was performed to improve assessment of LV function. * Contrast was injected into an intravenous site in the left arm. * One vial of Definity ultrasound contrast was diluted in normal saline to a total volume of 10 ml. A total of '1' ml of solution was administered during imaging. * Lot # [id number] of Definity utilized for procedure. * Expiration date . * The attending nurse who injected the contrast agent was Karla Tay RN. * A complete two-dimensional transthoracic echocardiogram was performed (2D, M-mode, Doppler and color flow Doppler). Left Ventricle * The left ventricle is normal in size. * There is no thrombus. * There is mild concentric left ventricular hypertrophy. * Ejection Fraction = 60-65%. * Left ventricular systolic function is normal. * Septal motion is consistent with conduction abnormality. Right Ventricle * The right ventricle is borderline dilated. * The right ventricular systolic function is normal as assessed by tricuspid annular plane systolic excursion (TAPSE) (normal >1.5 cm). Atria * The left atrium is moderately dilated. * Right atrial size is normal. * There is no evidence of atrial septal defect, but resolution does not allow assessment for a patent foramen ovale. Mitral Valve * The mitral valve is normal. * There is no mitral valve stenosis. * Significant mitral regurgitation is absent. Tricuspid Valve * The tricuspid valve is normal. * There is no tricuspid stenosis. * There is trace tricuspid regurgitation. Aortic Valve * The aortic valve is trileaflet. * Aortic stenosis is absent. * There is no significant aortic regurgitation. Pulmonic Valve * The pulmonary valve is not well seen, but the Doppler examination is normal without significant regurgitation or stenosis. Great Vessels * The aortic root is normal size. Pericardium/Pleural * There is no pericardial effusion. Great Vessels * Normal inferior vena cava diameter and respiratory variation suggests normal central venous pressure. Left Ventricular Diastolic Function * Pulse wave TDI of the anterior and posterior mitral annulas demonstrates abnormal LV relaxation MMode 2D Measurements and Calculations IVSd 1.4 cm IVSs 1.7 cm LVIDd 5.3 cm LVIDs 3.3 cm LVPWd 1.4 cm LVPWs 2.2 cm IVS/LVPW 1.0 FS 37.2 % EDV(Teich) 137.1 ml ESV(Teich) 45.6 ml EF(Teich) 66.7 % EDV(cubed) 151.4 ml ESV(cubed) 37.4 ml EF(cubed) 75.3 % % IVS thick 19.6 % % LVPW thick 54.1 % LV mass(C)d 331.9 grams LV mass(C)dI 146.6 grams/m\S\2 LV mass(C)s 287.5 grams LV mass(C)sI 127.0 grams/m\S\2 SV(Teich) 91.5 ml SI(Teich) 40.4 ml/m\S\2 SV(cubed) 114.0 ml SI(cubed) 50.3 ml/m\S\2 Ao root diam 3.2 cm Ao root area 7.9 cm\S\2 ACS 2.1 cm LA dimension 5.0 cm LA/Ao 1.6 LVAd ap4 30.7 cm\S\2 LVLd ap4 9.0 cm EDV(MOD-sp4) 90.4 ml EDV(sp4-el) 89.2 ml LVAs ap4 19.5 cm\S\2 LVLs ap4 8.2 cm ESV(MOD-sp4) 41.2 ml ESV(sp4-el) 39.4 ml EF(MOD-sp4) 54.4 % EF(sp4-el) 55.8 % LVAd ap2 37.3 cm\S\2 LVLd ap2 10.1 cm EDV(MOD-sp2) 113.5 ml EDV(sp2-el) 116.8 ml LVAs ap2 19.4 cm\S\2 LVLs ap2 7.7 cm ESV(MOD-sp2) 45.5 ml ESV(sp2-el) 41.7 ml EF(MOD-sp2) 59.9 % EF(sp2-el) 64.3 % LVLd %diff 11.3 % EDV(MOD-bp) 106.5 ml LVLs %diff -6.74 % ESV(MOD-bp) 44.1 ml EF(MOD-bp) 58.6 % SV(MOD-sp4) 49.2 ml SI(MOD-sp4) 21.7 ml/m\S\2 SV(MOD-sp2) 68.0 ml SI(MOD-sp2) 30.1 ml/m\S\2 SV(MOD-bp) 62.3 ml SI(MOD-bp) 27.5 ml/m\S\2 SV(sp4-el) 49.8 ml SI(sp4-el) 22.0 ml/m\S\2 SV(sp2-el) 75.1 ml SI(sp2-el) 33.1 ml/m\S\2 Doppler Measurements and Calculations MV E max juan 86.3 cm/sec MV A max juan 96.7 cm/sec MV E/A 0.89 MV dec time 0.17 sec Ao V2 max 162.5 cm/sec Ao max PG 10.6 mmHg Ao max PG (full) 7.1 mmHg LV V1 max PG 3.5 mmHg LV V1 max 93.5 cm/sec PA V2 max 124.2 cm/sec PA max PG 6.2 mmHg TR max juan 227.4 cm/sec
--- NOTE | 2017-09-24 18:09 | Discharge Summary ---
Discharge Summary Date of Service Sep 24, 2017. Discharge Summary Admission Date: Sep 22, 2017 at 17:43 Discharge Date: Sep 24, 2017 Discharge Disposition: Home Principal Diagnosis: Chest pain,Negative Lexiscan stress test Secondary Diagnoses/Problems: Please see H&P and Hospital Progress note Consultations: Cardiology Medication Reconciliation Continued Medications: Allopurinol (Allopurinol) 300 Mg Tab 300 MG PO DAILY Amlodipine (Norvasc) 5 Mg Tab 5 MG PO DAILY, TAB Aspirin (Aspirin Ec) 81 Mg Tab 81 MG PO DAILY Atorvastatin (Lipitor) 10 Mg Tab 10 MG PO DAILY Calcium Carbonate (Tums) 500 Mg Chew 2 TAB PO DAILY, BTL Carvedilol (Coreg) 3.125 Mg Tab 6.25 MG PO BID, TAB Cholecalciferol (Vitamin D3) 2,000 Unit Cap 2000 INTER.UNIT PO DAILY Citalopram (Citalopram Hydrobromide) 20 Mg Tab 20 MG PO DAILY Hydralazine HCl (Hydralazine HCl) 50 Mg Tab 1 TAB PO TID Levothyroxine Sodium (Synthroid) 50 Mcg Tab 50 MCG PO DAILY Magnesium Oxide (Mg Supplement (Magnesium Oxide) 400 Mg Tab 400 MG PO BID, TAB Ranitidine (Zantac) 150 Mg Tab 150 MG PO DAILY PRN for Heartburn, TAB 30 to 60 minutes before eating food or drinking beverages that cause heartburn Terazosin (Hytrin) 5 Mg Cap 1 CAP PO HS, CAP 5 Refills Tramadol (Ultram) 50 Mg Tab 50 MG PO Q6 PRN for Pain, TAB Admission Information HPI (per Admitting provider): 77 yo Male with PMH Anemia, HTN, Dyslipidemia, CKD stage 3, NAHEED, Morbid obesity , Diastolic heart failure present to the ER with chest tightness associated with SOB. Pt was at PCP office today and was sent to the ER for eval of the chest tightness. Pt said that for the last few weeks he has been having SOB on exertion. He said that SOB has been getting worst lately. Pt said that he also develops left side chest tightness with exertion. He said that he also has pain in the right side of his arm whenever he has the chest tightness. He said that symptoms improve with rest. He also complaint of swelling in his LE. Currently patient denies any chest tightness. Denies any diaphoresis, dizziness, fever, nausea, numbness and weakness. Past Medical/Surgical History Medical Problems: (1) Abdominal pain, left lower quadrant (2) Anemia, unspecified (3) ASCVD (arteriosclerotic cardiovascular disease) (4) Bleeding from varicose vein (5) BPH without obstruction/lower urinary tract symptoms (6) Carpal tunnel syndrome (7) Chest pain (8) Constipation (9) Diastolic heart failure (10) GERD (gastroesophageal reflux disease) (11) Gout (12) Hypertension (13) Insomnia (14) LEFT BB BLOCK NEC (15) Major depression (16) Obstructive sleep apnea on CPAP (17) Osteoarthrosis (18) Restless leg syndrome Surgical Problems: (1) H/O cataract removal with insertion of prosthetic lens (2) H/O sinus surgery (3) History of bilateral knee arthroplasty (4) History of total right hip arthroplasty (5) Hx of cholecystectomy Family History Hypertension Social History Smoking Status: Never Smoker Drug Use: none Marital Status: Housing status: lives with family Occupational Status: retired Immunizations History of Influenza Vaccine: Yes Influenza Vaccine Date: Apr 06, 2012 History of Tetanus Vaccine?: Unknown Tetanus Immunization Date: Jul 10, 2004 History of Pneumococcal: Yes Pneumococcal Date: Jul 10, 2007 History of Hepatitis B Vaccine: Unknown Allergies Coded Allergies: No Known Allergies (Verified , 09/22/17) Home Medications Scheduled Allopurinol (Allopurinol), 300 MG PO DAILY Amlodipine (Norvasc), 5 MG PO DAILY Aspirin (Aspirin Ec), 81 MG PO DAILY Atorvastatin (Lipitor), 10 MG PO DAILY Calcium Carbonate (Tums), 2 TAB PO DAILY Carvedilol (Coreg), 6.25 MG PO BID Cholecalciferol (Vitamin D3), 2,000 INTER.UNIT PO DAILY Citalopram (Citalopram Hydrobromide), 20 MG PO DAILY Hydralazine HCl (Hydralazine HCl), 1 TAB PO TID Levothyroxine Sodium (Synthroid), 50 MCG PO DAILY Magnesium Oxide (Mg Supplement (Magnesium Oxide), 400 MG PO BID Terazosin (Hytrin), 1 CAP PO HS Scheduled PRN Ranitidine (Zantac), 150 MG PO DAILY PRN for Heartburn Tramadol (Ultram), 50 MG PO Q6 PRN for Pain Review of Systems Constitutional: + fatigue, No fever, No chills Eyes: No eye pain, No diplopia ENT: No nasal symptoms, No sore throat Respiratory: + dyspnea on exertion, No cough, No wheezing Cardiovascular: + edema, + problem reported (Chest tightness), No claudication Abdomen: No nausea, No vomiting, No diarrhea Genitourinary - Male: No hematuria, No dysuria Neurologic: No paralysis, No numbness/tingling Psychiatric: No substance abuse Endocrine: + fatigue, No excessive thirst Hematologic / Lymphatic: No clotting problems, No night sweats Integumentary: No rash, No itch Physical Exam Vital Signs Date Time Temp Pulse Resp B/P (MAP) Pulse Ox O2 Delivery O2 Flow Rate FiO2 09/22/17 17:41 61 23 173/80 94 Room Air 09/22/17 16:23 71 09/22/17 15:42 95 Room Air 09/22/17 15:42 77 168/80 95 Room Air 09/22/17 15:42 95 Room Air 09/22/17 15:23 36.8 58 22 162/71 95 Room Air General Appearance: WD/WN, no apparent distress Head: normocephalic, atraumatic Eyes: PERRL, EOMI ENT: hearing grossly normal Neck: supple, no JVD, no carotid bruits Respiratory/Chest: chest non-tender, normal breath sounds, no respiratory distress, no accessory muscle use Cardiovascular: regular rate, rhythm, no murmur Abdomen/GI: normal bowel sounds, non tender Back: no CVA tenderness Extremities/Musculoskelatal: no calf tenderness, + pertinent finding (+1 Edema L>R) Neurologic/Psych: no motor/sensory deficits, alert, normal mood/affect Skin: warm/dry, no rash Diagnostics Laboratory Results Results Past 24 Hours Test 09/22/17 15:44 Range/Units White Blood Count 6.11 4.8-10.8 K/uL Red Blood Count 4.14 4.7-6.1 M/uL Hemoglobin 13.0 14.0-18.0 g/dL Hematocrit 38.4 42-52 % Mean Corpuscular Volume 92.8 80-100 fL Mean Corpuscular Hemoglobin 31.4 25-34 pg Mean Corpuscular Hemoglobin Concent 33.9 32-36 g/dl Platelet Count 140 130-400 K/uL Mean Platelet Volume 11.9 7.4-10.4 fL Neutrophils (%) (Auto) 70.2 % Lymphocytes (%) (Auto) 16.5 % Monocytes (%) (Auto) 8.5 % Eosinophils (%) (Auto) 4.1 % Basophils (%) (Auto) 0.5 % Neutrophils # (Auto) 4.29 1.4-6.5 K/uL Lymphocytes # (Auto) 1.01 1.2-3.4 K/uL Monocytes # (Auto) 0.52 0.11-0.59 K/uL Eosinophils # (Auto) 0.25 0-0.5 K/uL Basophils # (Auto) 0.03 0-0.2 K/uL RDW Standard Deviation 47.4 36.4-46.3 fL RDW Coefficient of Variation 14.0 11.5-14.5 % Immature Granulocyte % (Auto) 0.2 % Immature Granulocyte # (Auto) 0.01 0.00-0.02 K/uL Prothrombin Time 10.0 9.0-12.0 SECONDS Prothromb Time International Ratio 1.0 0.9-1.1 Activated Partial Thromboplast Time 23.1 21.0-31.0 SECONDS Partial Thromboplastin Ratio 0.9 Sodium Level 142 136-145 mmol/L Potassium Level 3.5 3.5-5.1 mmol/L Chloride Level 106 98-107 mmol/L Carbon Dioxide Level 30 21-32 mmol/L Anion Gap 6.0 3-11 mmol/L Blood Urea Nitrogen 20 7-18 mg/dl Creatinine 1.23 0.60-1.40 mg/dl Est Creatinine Clear Calc Drug Dose 61.9 ml/min Estimated GFR () 65.2 Estimated GFR (Non- 56.3 BUN/Creatinine Ratio 16.3 10-20 Random Glucose 117 70-99 mg/dl Calcium Level 7.8 8.5-10.1 mg/dl Total Bilirubin 0.7 0.2-1 mg/dl Direct Bilirubin 0.2 0-0.2 mg/dl Aspartate Amino Transf (AST/SGOT) 23 15-37 U/L Alanine Aminotransferase (ALT/SGPT) 25 12-78 U/L Alkaline Phosphatase 60 45-117 U/L Total Creatine Kinase 137 39-308 U/L Creatine Kinase MB 1.1 0.5-3.6 ng/ml Creatine Kinase MB Ratio 0.8 0-3.0 Troponin I < 0.015 0-0.045 ng/ml Pro-B-Type Natriuretic Peptide 305 0-1800 pg/ml Total Protein 6.5 6.4-8.2 gm/dl Albumin 3.6 3.4-5.0 gm/dl Lipase 197 73-393 U/L Diagnostic Radiology ] CHEST ONE VIEW PORTABLE CLINICAL HISTORY: Atypical chest pain COMPARISON STUDY: 06/17/2017 FINDINGS: The heart remains enlarged. There is aortic tortuosity/ectasia. There is mild central vascular prominence without evidence of overt failure. There is no focal pulmonary consolidation. There are no pleural effusions.[ IMPRESSION: Stable cardiomegaly. No evidence of focal pulmonary consolidation Electronically signed by: Jason Ghosh M.D. 09/22/2017 3:56 PM Dictated Date/Time: 09/22/2017 3:55 PM Impression Assessment and Plan Chest tightness and SOB on exertion Need to R/o ACS Last cardiac cath 05/2010 with moderate nonobstructive CAD CXR showed Stable cardiomegaly. No evidence of focal pulmonary consolidation 1st set Troponin negative BNP wnl EKG showed no ischemic changes Will get 2 more set of troponin and check EKG in am Received Nitro subl and aspirin in the ER Cardiology consult Will get resting echo Will continue aspirin, statin and carvedilol Will make NPO except med after Midnight for possible dobutamine stress test Continue monitor in tele Last ECHO 11/20 The examination is limited quality but adequate for evaluation of the referral indication. The LV wall thickness is mildly increased (concentric). The qualitative LV ejection fraction is 50-54% (normal). The right ventricular systolic function is normal as assessed by tricuspid annular plane systolic excursion (TAPSE) (normal >1.7 cm). The left atrium is normal sized (< 35 ml/m^2). The right atrial size is normal. Mild mitral regurgitation is present. There is trace tricuspid regurgitation. HTN BP elevated Possible situational due to hospital setting On Amlodipine and Carvedilol and terazosin Monitor BP Hypothyroidism Continue levothyroxine 50mg Dyslipidemia Continue Statin Check lipid panel in am CKD stage 3 Creatine on admission 1.2 Stable Gout continue Allopurinol Chronic diastolic heart failure ProBNP WNL CXR showed no pulmonary edema Clinically stable ECHO in am NAHEED Continue CPAP HS DVT px On heparin subq CODE STATUS FULL CODE Resuscitation Status VTE Prophylaxis Will order VTE Prophylaxis: Yes <Electronically signed by June Jones M.D.> Signed: 09/24/17 0126 Physical Exam (per Admitting): General Appearance: WD/WN, no apparent distress Head: normocephalic, atraumatic Eyes: PERRL, EOMI ENT: hearing grossly normal Neck: supple, no JVD, no carotid bruits Respiratory/Chest: chest non-tender, normal breath sounds, no respiratory distress, no accessory muscle use Cardiovascular: regular rate, rhythm, no murmur Abdomen/GI: normal bowel sounds, non tender Back: no CVA tenderness Extremities/Musculoskelatal: no calf tenderness, + pertinent finding (+1 Edema L>R) Neurologic/Psych: no motor/sensory deficits, alert, normal mood/affect Skin: warm/dry, no rash Hospital Course Chest tightness and SOB on exertion Last cardiac cath 05/2010 with moderate nonobstructive CAD CXR showed Stable cardiomegaly. No evidence of focal pulmonary consolidation Serial Troponins negative for any ACS EKG showed no ischemic changes Received Nitro subl and aspirin in the ER Cardiology consult-appreciate input Will continue aspirin, statin and carvedilol ECHO -pending Lexiscan Scan tomorrow-Negative Will discharge home today HTN BP elevated Possible situational due to hospital setting On Amlodipine and Carvedilol and terazosin Monitor BP-controlled Hypothyroidism Continue levothyroxine 50mg Dyslipidemia Continue Statin Check lipid panel in am CKD stage 3 Creatine on admission 1.2 Normalized Gout continue Allopurinol Chronic diastolic heart failure ProBNP WNL CXR showed no pulmonary edema Clinically stable Has had a Lexiscan stress test today which is negative for any Ischemia NAHEED Continue CPAP HS DVT px On heparin subq CODE STATUS FULL CODE Discharge home today Total time spent on discharge = 35 minutes This includes examination of the patient, discharge planning, medication reconciliation, and communication with other providers. Discharge Instructions Date of Service Sep 24, 2017. Admission Reason for Admission: Chest Pain Discharge Discharge Diagnosis / Problem: Chest pain,Negative Lexiscan stress test Discharge Goals Goal(s): Prevent Disease Progression Activity Recommendations Activity Limitations: resume your previous activity . Instructions / Follow-Up Instructions / Follow-Up Dr Stout on 10/01/17 at 1:05 PM Current Hospital Diet Patient's current hospital diet: AHA Diet (Heart Healthy), Low Sodium Diet (2gm Na) Discharge Diet Recommended Diet: AHA Diet (Heart Healthy), Low Sodium Diet (2gm Na) Pending Studies Studies pending at discharge: no Laboratory Results Lipid Panel Test 09/23/17 03:32 Range/Units Triglycerides Level 82 0-150 mg/dl Cholesterol Level 94 0-200 mg/dl HDL Cholesterol 57 mg/dl Cholesterol/HDL Ratio 1.6 LDL Cholesterol, Calculated 21 mg/dl Medical Emergencies . Who to Call and When: Medical Emergencies: If at any time you feel your situation is an emergency, please call 911 immediately. . Non-Emergent Contact Non-Emergency issues call your: Primary Care Provider . Past History Medical & Surgical History: (1) Left sided chest pain (2) Restless leg syndrome (3) Obstructive sleep apnea on CPAP (4) Major depression (5) Hypertension (6) Diastolic heart failure (7) Gout (8) Osteoarthrosis (9) Carpal tunnel syndrome (10) ASCVD (arteriosclerotic cardiovascular disease) (11) Anemia, unspecified (12) LEFT BB BLOCK NEC (13) GERD (gastroesophageal reflux disease) (14) Hx of cholecystectomy (15) History of bilateral knee arthroplasty (16) H/O sinus surgery (17) H/O cataract removal with insertion of prosthetic lens (18) History of total right hip arthroplasty . "Provider Documentation" section prepared by Erick Parker. . <Electronically signed by Erick Parker M.D.> Signed: 09/24/17 [id number] Additional Copies To Musa Stout M.D.
== END 2017-09-24 16:40 | disposition home or self-care (01) ==
LOC: C.EDB 15:17 → C.MED 17:43 → ENRESERV 18:28
PROVIDERS: ADMIT Internal Medicine; ATTEND Internal Medicine
DX: R07.9 Chest pain, unspecified (principal); D64.9 Anemia, unspecified; I12.9 Hypertensive chronic kidney disease with stage 1 through stage 4 chronic kidney disease, or unspecified chronic kidney disease; E78.5 Hyperlipidemia, unspecified; N18.3 Chronic kidney disease, stage 3 (moderate); G47.33 Obstructive sleep apnea (adult) (pediatric); I50.30 Unspecified diastolic (congestive) heart failure; I25.10 Atherosclerotic heart disease of native coronary artery without angina pectoris; K21.9 Gastro-esophageal reflux disease without esophagitis; N40.1 Benign prostatic hyperplasia with lower urinary tract symptoms; M19.90 Unspecified osteoarthritis, unspecified site; E66.01 Morbid (severe) obesity due to excess calories; Z79.82 Long term (current) use of aspirin; Z79.899 Other long term (current) drug therapy; Z98.49 Cataract extraction status, unspecified eye; Z90.49 Acquired absence of other specified parts of digestive tract; Z96.653 Presence of artificial knee joint, bilateral; Z96.641 Presence of right artificial hip joint; Z98.890 Other specified postprocedural states; Z82.49 Family history of ischemic heart disease and other diseases of the circulatory system

== ENCOUNTER 2018-10-14 06:06 | Inpatient (IN) ==
--- NOTE | 2018-09-25 11:30 | Anesthesiology Consultation ---
Date of Service September 25, 2018 Assessment & Plan (1) Encounter for pre-operative examination: Chart Review Chart Review: Acceptable Risk for Surgery and Patient seen in Pre Admission Testing Teaching & Discussion Instructed NPO after midnight before surgery, except medications with 15 cc of water. Medication instructions provided according to the PAT guidelines. History Surgery Operation Date: 10/14/18 07:15 Proposed Procedures p Left Total Hip Arthroplasty - Kvng Tamayo MD Operation Date: 10/14/18 12:45 Proposed Procedures p Left Total Hip Replacement - Kvng Tamayo MD Height/Weight Height: 5 ft 8 in Weight: 121.1 kg Allergies Allergy/AdvReac Type Severity Reaction Status Date / Time No Known Allergies Allergy Verified 09/18/18 13:27 Medications Home Medications Medication Instructions Recorded Confirmed Last Taken allopurinol 300 mg PO QAM 04/30/18 09/18/18 05/06/18 aspirin [Aspir-81] 81 mg PO QAM 04/30/18 09/18/18 05/06/18 atorvastatin 5 mg PO HS 04/30/18 09/18/18 07/27/18 cholecalciferol (vitamin D3) 2,000 unit PO QAM 04/30/18 09/18/18 05/06/18 [Vitamin D3] citalopram [Celexa] 20 mg PO QAM 04/30/18 09/18/18 05/06/18 hydralazine 50 mg PO TID 04/30/18 09/18/18 07/28/18 08:00 levothyroxine 100 mcg PO QAM 04/30/18 09/18/18 05/06/18 magnesium oxide 400 mg PO BID 04/30/18 09/18/18 07/28/18 omeprazole 40 mg PO HS 04/30/18 09/18/18 05/06/18 terazosin 5 mg PO HS 04/30/18 09/18/18 07/27/18 amlodipine 5 mg PO QAM 09/18/18 09/18/18 Unknown carvedilol 3.125 mg PO BID 09/18/18 09/18/18 Unknown lisinopril 20 mg PO QAM 09/18/18 09/18/18 Unknown potassium chloride 20 meq PO QAM 09/18/18 09/18/18 Unknown Past Medical History Medical History CKD (chronic kidney disease), stage III (Chronic) Pneumonia (Acute) Hospitalized Jun 2018 after failing OP treatment. SVT in setting of hypokalemia noted during that admission. Admitted again to [facility] 07/28-07/30/18 for pneumonia with hypoxia. No arrhythmia noted. Lungs CTA B/L on exam at PAT 09/25. 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 Nonobstructive atherosclerosis of coronary artery By 05/2010 catheterization Past Family History Family History Father Heart disease Mother Diabetes Hypertension Brother Family hx of colon cancer Past Surgical History Surgical History H/O cataract removal with insertion of prosthetic lens H/O sinus surgery History of bilateral knee arthroplasty History of cataract surgery RT/LEFT History of colonoscopy History of esophagogastroduodenoscopy (EGD) History of tooth extraction History of total right hip arthroplasty Hx of cholecystectomy Past Anesthesia History No Hx of Anesthesia Complications and No Family Hx of Anesthesia Complications History of PONV No Motion Sickness Screening History of Motion Sickness: No Social History Smoking Status: Never smoker Do You Dip or Chew Tobacco: No Hx Alcohol Use: No Hx Substance Use: No substance use type: does not use Exercise / Class Metabolic Activity III < 4 Walking/Shop/Light housework (Denies CP or SOB with stairs but is limited in activity by hip pain. Daughter says she "keeps him moving") Review of Systems Pt denies any recent chest pain, shortness of breath, palpitations, cough, fever or URI. Physical Exam Vital Signs BP: 164/74 (pt follows with cardio and PCP for HTN) P: 65bpm SPO2: 94% RA T: 98.2 F R: 16 Constitutional Euvolemic. ENMT Mouth: + dentures (full upper) and + edentulous Thyromental Distance: < 3.5 Finger Breadths (3? Difficult to assess due to thick neck) Mallampati Class: III Neck + short neck, + thick neck and + limited neck extension Respiratory normal respiratory effort Auscultation: lungs clear to auscultation bilaterally; no crackles, no rhonchi and no wheezes Cardiovascular Rate/Rhythm: regular rate and regular rhythm Heart Sounds: no murmur Vessels: no carotid bruit Testing Electrocardiogram Date: 07/29/18 Findings: + NSR @ (60bpm with 1st degree AV block) Premature atrial complexes. Left axis deviation. Left bundle branch block. Chest X-Ray Date: 09/25/18 1. No acute cardiopulmonary findings. 2. Moderate cardiomegaly. No evidence for pulmonary edema. Echocardiogram Date: 09/22/17 EF: 60-65% LV systolic function is normal. There is mild concentric left ventricular hypertrophy. Pulse wave TDI of the anterior and posterior mitral annulas demonstrates abno rmal LV relaxation. The left atrium is moderately dilated. No significant valvular pathology. Stress Test Date: 09/22/17 Type: nuclear Resting EF: 49% Lexiscan nuclear stress is negative for inducible ischemia. Limited quality gated SPECT imaging demonstrates normal wall motion with borderline diminished LV function qualitatively however qualitatively the LV systolic function appears normal. Laboratory Results 09/25/18 11:39 09/25/18 11:39 Blood Type B Negative 09/25/18 11:39 Antibody Screen NEGATIVE 09/25/18 11:39 PT 10.3 Seconds (9.0-12.0) 09/25/18 11:39 INR 1.0 (0.9-1.1) 09/25/18 11:39 APTT 23.1 Seconds (21.0-31.0) 09/25/18 11:39
--- NOTE | 2018-09-25 11:33 | PAT Medication Instructions ---
Medication Instructions Date of Service September 25, 2018 Home Medications allopurinol 300 mg PO QAM aspirin [Aspir-81] 81 mg PO QAM atorvastatin 5 mg PO HS cholecalciferol (vitamin D3) 2,000 unit PO QAM citalopram [Celexa] 20 mg PO QAM hydralazine 50 mg PO TID levothyroxine 100 mcg PO QAM magnesium oxide 400 mg PO BID omeprazole 40 mg PO HS terazosin 5 mg PO HS amlodipine 5 mg PO QAM carvedilol 3.125 mg PO BID lisinopril 20 mg PO QAM potassium chloride 20 meq PO QAM DO NOT take the morning of surgery allopurinol 300 mg PO QAM cholecalciferol (vitamin D3) 2,000 unit PO QAM magnesium oxide 400 mg PO BID lisinopril 20 mg PO QAM potassium chloride 20 meq PO QAM Take morning of surgery With a small sip of water, OTHERWISE NOTHING TO EAT OR DRINK AFTER MIDNIGHT: aspirin [Aspir-81] 81 mg PO QAM citalopram [Celexa] 20 mg PO QAM hydralazine 50 mg PO TID levothyroxine 100 mcg PO QAM amlodipine 5 mg PO QAM carvedilol 3.125 mg PO BID Take evening before surgery atorvastatin 5 mg PO HS hydralazine 50 mg PO TID magnesium oxide 400 mg PO BID omeprazole 40 mg PO HS terazosin 5 mg PO HS carvedilol 3.125 mg PO BID Other Notes If you have any questions please call us at [phone] or [phone] or [phone] or [phone]
[2018-09-25 12:18] LABS: Basophils # (auto) 0.03 K/uL (0-0.2); Basophils % (auto) 0.4 %; Eosinophils % (auto) 4.3 %; Hematocrit (blood only) 38.6 % (42-52); Hemoglobin 13.2 g/dL (14.0-18.0); Immature Granulocytes # (auto) 0.01 K/uL (0.00-0.02); Immature Granulocytes % (auto) 0.1 %; Lymphocytes % (auto) 15.7 %; Mean Corpuscular Hgb Conc 34.2 g/dL (32-36); Mean Corpuscular Volume 93.9 fL (80-100); Mean Platelet Volume 11.6 fL (7.4-10.4); Monocytes # (auto) 0.52 K/uL (0.11-0.59); Monocytes % (auto) 7.4 %; Neutrophils # (auto) 5.03 K/uL (1.4-6.5); Neutrophils % (auto) 72.1 %; Platelet Count 144 K/uL (130-400); RDW Coefficient of Variation 14.4 % (11.5-14.5); RDW Standard Deviation 49.2 fL (36.4-46.3); Red Blood Count 4.11 M/uL (4.7-6.1); White Blood Count 6.99 K/uL (4.8-10.8)
[2018-09-25 12:28] LABS: Blood Urea Nitrogen 21 mg/dl (7-18); C Reactive Protein < 0.29 mg/dl (0-0.29); Calcium 8.3 mg/dl (8.5-10.1); Carbon Dioxide 30 mmol/L (21-32); Chloride 108 mmol/L (98-107); Creatinine Clr Calc Pharmacy 80.3 ml/min; Est GFR (African American) 87.4; Est GFR (Non-African American) 75.4; Glucose 97 mg/dl (70-99); Potassium 3.9 mmol/L (3.5-5.1); Sodium 144 mmol/L (136-145)
[2018-09-25 12:33] LABS: Partial Thromboplastin Ratio 0.9; Partial Thromboplastin Time 23.1 Seconds (21.0-31.0); Prothrombin Time 10.3 Seconds (9.0-12.0)
--- NOTE | 2018-09-25 13:01 | XRay Report ---
XR chest Pre-admission PA/Lat CLINICAL HISTORY: Preoperative evaluation. COMPARISON STUDY: Chest radiograph July 30, 2018. Chest CT May 06, 2018. FINDINGS: Lung volumes are at the lower limits of normal. There is no consolidation or evidence for p ulmonary edema. Moderate cardiomegaly is noted. Mediastinal contours are otherwise normal. IMPRESSION: 1. No acute cardiopulmonary findings. 2. Moderate cardiomegaly. No evidence for pulmonary edema. Electronically signed by: Kyler Lim M.D. 09/25/2018 12:59 PM
--- NOTE | 2018-10-10 10:23 | History and Physical Report ---
DATE OF ADMISSION: 10/14/2018 CHIEF COMPLAINT: Left hip pain. HISTORY OF PRESENT ILLNESS: A 78-year-old gentleman from [place], who presents for surgical treatment of his left hip. He has got a long history of joint problems and had his right hip replaced by Dr. Boo in the past and bilateral knee replacements done at [facility]. He has about a year history of increasing left hip pain and discomfort. He has been through extensive conservative treatment including shots which provided him temporary relief. He has resorted to using a cane to get around. He describes mostly groin pain, some buttock pain, some thigh pain. He is having difficulty maintaining independent lifestyle due to his decreased ambulatory ability. He would like to proceed with surgical treatment. Of note, the patient does have a history of both knee replacements with multiple complications to his right knee. Apparently, he had an infection and had 5 operations. He is now clear this infection and has not had a surgery in the past 10 years and doing okay from that side. PAST MEDICAL HISTORY: 1. Hypertension. 2. Sleep apnea with CPAP machine. 3. Hypothyroidism. 4. Gastroesophageal reflux disease. 5. Obesity, BMI of 41. 6. BPH. PAST SURGICAL HISTORY: Previous surgeries include: 1. Cholecystectomy. 2. Multiple operations on both knees, right one complicated by infection. 3. Right hip replacement done by Dr. Boo. ALLERGIES: None. CURRENT MEDICINES: Include: 1. Omeprazole. 2. Synthroid. 3. Allopurinol. 4. Hydralazine 5. Amlodipine. 6. Citalopram. 7. Carvedilol. 8. Aspirin. SOCIAL HISTORY: A 78-year-old male. He is . Three children. Does not drink. FAMILY HISTORY: Significant for diabetes. REVIEW OF SYSTEMS: Negative for diabetes. Denies any chest pain or shortness of breath. No history of DVT or PE. Does have a history of infection in the past, but has been cleared for 10 years. PHYSICAL EXAMINATION: GENERAL: Reveals a pleasant 78-year-old male. Looks to be in reasonably good health. HEENT: Benign. NECK: Supple. No lymphadenopathy. LUNGS: Clear to auscultation. HEART: Regular rate and rhythm. ABDOMEN: Soft, nontender, nondistended. EXTREMITIES: Grossly neurovascularly intact except as follows: Examination of left hip reveals the patient walks with the use of a cane. He does limp significant on this side. Leg lengths appear pretty equal. He has pain with any type of hip motion. He can internally rotate, neutral at best. Negative straight leg raise. He is neurologically intact. X-RAYS: X-rays of the left hip were reviewed. Shows advanced left hip DJD. He has got complete loss of the superior joint space. He has got some calcification of his femoral artery. He has got some cystic change on both sides of the joint. ASSESSMENT: A 78-year-old gentleman with a history of multiple joint replacements in the past with his right knee surgery complicated by infection, but free of infection now. He has now become debilitated by his left hip arthritis. He would like to have this fixed. PLAN: We will take him to the operating room and do a left total hip replacement. The risks and benefits of this procedure were explained to the patient include but not limited to DVT, PE, , infection, neurological injury, vascular injury, bleeding problem, pain, limited range of motion, stiffness, failure to relieve the symptoms, dislocation, leg length inequality, nerve palsy, need for blood transfusion, etc. The patient understands and desires to proceed. Informed consent was obtained. We were concerned about this history of infection in the past. I got sed rate and C-reactive protein, which were both normal, which make it unlikely, he has got any residual infection. We did talk to him about taking his carvedilol the morning of surgery and make sure he brings his CPAP machine to the hospital. He is planning to be discharged to home likely with [facility] home health program.
[~2018-10-14 06:06] MED LIST changes: +ACETAMINOPHEN 500 MG TAB PO SCH; -ALL300 PO; -AMLO-114 PO; -ASPI81TA28 PO; +CEFAZOLIN 3000MG 65 ML IV SCH; -CHOL2000 PO; -CLX/20 PO; -CRG625 PO; +FAMOTIDINE 20 MG TAB PO SCH; +GABAPENTIN 300 MG PO SCH; -HYDR-4717 PO; -IPRA1AER2 INH; -LPT10 PO; +LR 500ML BOLUS, THEN 15ML/HR IV SCH; +LR 60ML/HR IV SCH; -MELO-84 PO; +METOCLOPRAMIDE HCL 10 MG TABLET PO SCH; -SYN50 PO; +TRANEXAMIC ACID 1,000 MG **IV Pre-op IV SCH; -TUMS PO
[2018-10-14] MEDS ORDERED: BUPIVACAINE 0.5 % 5 MG/1 ML PF 10ML VIAL ONE (06:30)
[2018-10-14] MEDS ORDERED: BUPIVACAINE/EPINEPHRINE 0.5% MPF 1:200,000 30 ML VIAL ONE (06:51)
[2018-10-14] MEDS ORDERED: BACITRACIN INJ 50,000 UNIT VIAL ONE (06:52)
--- NOTE | 2018-10-14 06:54 | History & Physical Bridge Note ---
Date of Service October 14, 2018 History & Physical Bridge Note I have examined the patient, reviewed the History & Physical and in the interval since the performance of the History & Physical I have noted the following changes of clinical significance: no changes noted
[2018-10-14] MEDS ORDERED: LIDOCAINE HCL 2% 2 ML VIAL/AMP(20MG/ML) INFIL ONE (06:55)
[2018-10-14] MEDS ORDERED: PROPOFOL IV EMULSION 10 MG/ML 20 ML VIAL IV ONE (06:55)
[2018-10-14] MEDS ORDERED: ONDANSETRON INJ 2 MG/ML 2 ML VIAL ONE (06:55)
[2018-10-14] MEDS ORDERED: DEXAMETHASONE SOD INJ 4 MG/ML VIAL ONE (06:55)
[2018-10-14] MEDS ORDERED: fentaNYL citrate 100 MCG/2 ML VIAL ONE (06:56)
[2018-10-14] MEDS ORDERED: MIDAZOLAM HCL 1 MG/ML 2ML VIAL ONE ×2 (06:56→07:49)
[2018-10-14] MEDS ORDERED: MoRPHine SULFATE PF 1 MG/ML 10 ML AMP/VIAL ONE (06:57)
[2018-10-14] MEDS ORDERED: ePHEDrine sulfate 50 MG/ML AMP IV PRN ×2 (08:05→09:28)
[2018-10-14] MEDS ORDERED: ATROPINE SULFATE 0.1 MG/ML 10ML SYR IV PRN (08:05)
--- NOTE | 2018-10-14 08:46 | Post Operative Brief Note ---
Immediate Post Op Note v1 Date of Surgery October 14, 2018 Pre & Post Diagnosis Operation Date: 10/14/18 07:15 Pre-Op Diagnosis: Left Hip Degenerative Joint Disease Post-Op Diagnosis: Left Hip Degenerative Joint Disease Operation Date: 10/14/18 12:45 <No data on this case meets the specified criteria> Procedure Operation Date: 10/14/18 07:15 Actual Procedures p Left Total Hip Arthroplasty(Left) - Kvng Tamayo MD Operation Date: 10/14/18 12:45 <No data on this case meets the specified criteria> Surgeon Kvng Tamayo MD [employer] Program Manager Alex, PAC Estimated Blood Loss 400 Findings Consistent with Post-Op Diagnosis Fluids 800 cc Specimens Left Femoral Head Drains Fowler Catheter (16fr fowler placed by Amanda Johnson PA-C, without difficulty; fowler demonstrates clear yellow urine. Output measured and recorded by anesthesia.) Anesthesia Type Spinal MAC Complications none Disposition Accompanied Patient To Recovery: Yes Disposition: Recovery Room
--- NOTE | 2018-10-14 09:13 | XRay Report ---
XR hip 1V LT w pelvis HISTORY: 78 years-old Male IN PACU - A/P PELVIS and LATERAL HIP left hip total joint arthroplasty. History of degenerative joint disease COMPARISON: Pelvis and hip radiographs 03/27/2015 TECHNIQUE: Portable AP view the pelvis with crosstable lateral view of the left hip FINDINGS: Left hip total joint arthroplasty demonstrates satisfactory alignment. There is no acute fracture or retained foreign body identified. Expected postsurgical soft tissue swelling and deep tissue air with skin suhas. Right hip total joint arthroplasty redemonstrated. Peripheral arterial calcifications noted. IMPRESSION: Left hip total joint arthroplasty demonstrates satisfactory alignment. The above report was generated using voice recognition software. It may contain grammatical, syntax o r spelling errors. Electronically signed by: Dyllan Mortensen M.D. 10/14/2018 9:12 AM
[2018-10-14] MEDS ORDERED: NALOXONE HCL 0.08 MG in SYRINGE 1.8 ML IV PRN (09:28)
[2018-10-14] MEDS ORDERED: ONDANSETRON INJ 2 MG/ML 2 ML VIAL IV PRN (09:28)
[2018-10-14] MEDS ORDERED: NALOXONE HCL 1 MG in SODIUM CHLORIDE 0.9% 1000ML 1,000 ML IV PRN (09:28)
[2018-10-14] MEDS ORDERED: NALBUPHINE HCL INJ 10 MG/ML AMP IV PRN (09:28)
[2018-10-14] MEDS ORDERED: DiphenhydrAMINE HCL 50 MG/ML VIAL IV PRN (09:28)
[2018-10-14] MEDS ORDERED: NALOXONE HCL 0.4 MG/1 ML VIAL/CARP IV PRN (09:28)
[2018-10-14] MEDS ORDERED: MoRPHine SULFATE PF 1 MG/ML 10 ML AMP/VIAL INT SPINAL ONE (09:28)
[2018-10-14] MEDS ORDERED: LACTATED RINGER'S 500 ML IV PRN (09:28)
[2018-10-14] MEDS ORDERED: SODIUM CHLORIDE 0.9% 1000ML 1,000 ML IV SCH (09:30)
[2018-10-14] MEDS ORDERED: DC INTRASPINAL MORPHINE SCH (09:30)
[2018-10-14] MEDS ORDERED: NO NARCOTICS OR SEDATIVES SCH (09:30)
--- NOTE | 2018-10-14 09:30 | Anesthesiology Progress Note ---
Date of Service October 14, 2018 Anesthesia Post Procedure Vital Signs Vital Signs: Temp Pulse Pulse Pulse Resp BP BP 10/14/18 09:06 59 L 16 103/39 L 10/14/18 09:05 73 22 10/14/18 09:01 61 18 102/50 L 10/14/18 09:00 59 L 18 10/14/18 08:56 65 14 90/42 L 10/14/18 08:55 68 13 10/14/18 08:51 67 14 96/44 L 10/14/18 08:50 66 14 10/14/18 08:48 37.2 C 66 60 14 101/46 L 101/46 L 10/14/18 06:51 36.9 C 72 20 157/89 H Pulse Ox 10/14/18 09:06 97 10/14/18 09:05 100 10/14/18 09:01 100 10/14/18 09:00 100 10/14/18 08:56 93 10/14/18 08:55 98 10/14/18 08:51 98 10/14/18 08:50 98 10/14/18 08:48 100 10/14/18 06:51 94 Pain Intensity Left Hip: Pain Intensity: 0 Notes Mental Status: alert / awake / arousable Patient Amnestic to Procedure: Yes Nausea / Vomiting: adequately controlled Pain: adequately controlled Airway Patency, RR, SpO2: stable & adequate BP & HR: stable & adequate Hydration State: stable & adequate Neuraxial Anesthesia: was administered and sensory block is resolving Anesthetic Complications: no major complications apparent
[2018-10-14] MEDS ORDERED: BISACODYL 10 MG SUPP PR PRN (09:49)
[2018-10-14] MEDS ORDERED: MAGNESIUM HYDROXIDE SUSP 30 ML UDC PO PRN (09:49)
[2018-10-14] MEDS ORDERED: METOCLOPRAMIDE HCL INJ 5 MG/ML 2 ML VIAL IV PRN (09:49)
[2018-10-14] MEDS ORDERED: ALUMINUM/MAGNESIUM SUSP 30 ML UDC PO PRN (09:49)
[2018-10-14] MEDS ORDERED: TAMSULOSIN HCL 0.4 MG CAP PO PRN (09:49)
--- NOTE | 2018-10-14 10:02 | Operative Report ---
DATE OF OPERATION: 10/14/2018 SURGEON: Kvng Tamayo MD BASTING PULLER: MIRANDA Mead PREOPERATIVE DIAGNOSIS: Left hip degenerative joint disease. POSTOPERATIVE DIAGNOSIS: Left hip degenerative joint disease. PROCEDURE PERFORMED: Left uncemented ceramic on highly cross-linked polyethylene total hip arthroplasty. COMPLICATIONS: None. ESTIMATED BLOOD LOSS: 400 mL. FLUID REPLACEMENT: 800 mL crystalloid fluid replacement. ANESTHESIA: Spinal. DRAINS: None. SPECIMENS: Left femoral head sent for pathology. OPERATIVE INDICATIONS: The patient is a 78-year-old gentleman who has had a long history of joint problems. He has undergone bilateral knee replacements as well as right hip replacement in the past. He did have a complication of infection from his right knee and this has been cleared off for the past 9 years. We did do an infectious workup which was negative. He continued to be bothered by left hip pain and discomfort. X-rays show advanced left hip DJD. He elected to proceed with surgical treatment. Of note, the patient did have a leg length discrepancy from his previous hip replacement as the hip is subsided some and the left leg was actually a bit longer than the right by at least a centimeter. He was fully aware we were not going to shorten this likely, although we would try if possible. Stability is most important issue. OPERATIVE FINDINGS: Operative findings revealed advanced left hip DJD. He had grade 4 [id number] disease of the femoral head and acetabulum. Moderate size medial osteophyte. Moderate size joint effusion. OPERATIVE IMPLANTS: Operative implants consisted of: 1. A Biomet G7 size 56 mm acetabular shell. 2. An apex hole eliminator. 3. 6.5 cancellous acetabular screws, 1 at 35 mm in length and 1 at 30 mm in length. 4. Highly cross-linked polyethylene liner with 56 mm outer diameter and 36 mm inner diameter. 5. A DePuy Corail size 13 KLA femoral stem. 6. A +5/36 mm ceramic articular ball. OPERATIVE PROCEDURE: The patient was taken to the operating room, identified and placed on the operating table in supine position. All contact areas were appropriately padded. IV antibiotics were provided by anesthesia team. A spinal anesthetic had been implemented in the holding area. Briceno catheter was placed in sterile fashion. The patient was then placed in the right lateral decubitus position. An axillary roll was placed. [facility] hip positioner was used for positioning. The left hip and leg were then prepped and draped in usual sterile fashion. A posterolateral approach to the left hip was then performed through a curvilinear incision centered at the greater trochanter. Sharp dissection was carried through subcutaneous tissues down to the level of the IT band and gluteal fascia. The IT band and gluteal fascia were then incised longitudinally in line with the skin incision. The underlying greater trochanteric bursa was excised. The piriformis and external rotators were tagged and taken off the posterior aspect of the hip joint capsule. A posterior capsulotomy was then performed leaving a large flap for later repair. Hip was internally rotated and dislocated. Femoral neck osteotomy cut was made with the final cut about 10 mm above the lesser trochanter. Femoral head was removed and sent for pathology. The femur was retracted anteriorly. Attention was then drawn to the acetabulum. The acetabulum labrum was excised. The pulvinar fat was excised. Sequential reaming of the acetabulum was then performed beginning with a size 47 and progressing up to 55. A 56 mm Biomet G7 acetabular shell was then placed in about 40 degrees of lateral opening and 20 degrees of anteversion. It was fixed with two 6.5 cancellous acetabular screws. A trial liner was placed. Attention was then drawn to the femur. The proximal femur was entered with a cookie cutter followed by canal finder. I then broached beginning with a size 8 and progressing up to a 13. We got excellent fit at 13. We had good rotational stability. The calcar reamer was used to smoothen off the calcar. I then trialed the hip. With the +5 articular ball, the hip was fully stable in full extension and external rotation and flexion to 90 degrees and internal rotation to over 60 degrees. Soft tissue tension was a little bit lax, but I really did more lengthen him, if anything shortened him a little bit, so we elected to use these implants, although the soft tissue laxity was a little bit loose. His hip seemed extremely stable. We elected to place these implants. All trial implants were removed. An apex hole eliminator was placed. A highly cross-linked polyethylene liner was placed. A Corail size 13 KLA femoral stem was impacted in position. A +5/36 mm articular ball was placed. Hip was located and once again found to be stable. Attention was then drawn toward closing. The wound was irrigated with copious amounts of pulsatile lavage solution. I did inject with 60 mL of 0.5% Marcaine with epinephrine. The posterior capsule and external rotators were then repaired through drill holes in the posterior trochanter with #2 Ti-Cron suture. The IT band and gluteal fascia were then closed in #1 PDS suture in running fashion. The subcutaneous tissue was then closed in 2 layers, the deep layer #1 Vicryl suture and the subcutaneous tissues with 2-0 Dexon suture in buried interrupted fashion. Skin was closed with skin suhas. Leg was then cleaned, dried and a sterile dressing of Xeroform, 4 x 4s, ABD pad and foam tape was applied. The patient was then transferred to the recovery room in stable condition. The patient tolerated the procedure well with no complications. All needle and sponge counts were correct at the end of the operation. I attest to the content of the Intraoperative Record and any orders documented therein. Any exception s are noted below.
[2018-10-14] MEDS: SODIUM CHLORIDE 0.9% 1000ML 1,000 ML IV SCH ×3 (11:07→22:32)
[2018-10-14] MEDS: DOCUSATE SODIUM 100 MG CAP PO SCH ×2 (11:09→21:39)
[2018-10-14] MEDS: ASPIRIN 81 MG ECTAB PO SCH ×2 (11:13→21:39)
[2018-10-14] MEDS: POTASSIUM CHLORIDE 20 MEQ TABCR PO SCH (11:13)
[2018-10-14] MEDS: MAGNESIUM OXIDE 400 MG TAB PO SCH ×2 (11:14→21:40)
[2018-10-14] MEDS: CHOLECALCIFEROL 1,000 UNITS TAB PO SCH (11:14)
[2018-10-14] MEDS: MULTIVITAMIN TAB PO SCH (11:14)
[2018-10-14] MEDS: ALLOPURINOL 300 MG TAB PO SCH (11:15)
[2018-10-14] MEDS: KETOROLAC TROMETHAMINE 15 MG/ML VIAL IV SCH ×2 (13:56→17:56)
[2018-10-14] MEDS: ACETAMINOPHEN 500 MG TAB PO SCH ×2 (13:57→21:41)
[2018-10-14] MEDS: HydrALAZINE TAB 50 MG TAB PO SCH ×2 (14:00→21:39)
[2018-10-14] MEDS: CEFAZOLIN 2000MG 2,000 MG/15 ML SYR IV SCH ×2 (14:29→22:27)
[2018-10-14] MEDS ORDERED: TRANEXAMIC ACID 1,000 MG in 0.9 % SODIUM CHLORIDE 100 ML IV SCH (15:00)
[2018-10-14] MEDS: ASCORBIC ACID 500 MG TAB PO SCH (17:56)
[2018-10-14] MEDS: FERROUS GLUCONATE 324 MG TAB PO SCH (17:59)
[2018-10-14] MEDS: CARVEDILOL 3.125 MG TAB PO SCH (21:39)
[2018-10-14] MEDS: TERAZOSIN HCL 5 MG CAP PO SCH (21:39)
[2018-10-14] MEDS: ATORVASTATIN 10 MG TAB PO SCH (21:40)
[2018-10-14] MEDS: SENNA 8.6 MG TAB PO SCH (21:40)
[2018-10-14] MEDS: PANTOprazole 40 MG TAB PO SCH (21:40)
[2018-10-15] MEDS: KETOROLAC TROMETHAMINE 15 MG/ML VIAL IV SCH ×3 (00:41→12:57)
[2018-10-15] MEDS ORDERED: NALOXONE HCL 0.4 MG/1 ML VIAL/CARP IV PRN (03:29)
[2018-10-15] MEDS ORDERED: HYDROmorphone INJ 0.5 MG/0.5 ML SYR IV PRN (03:29)
[2018-10-15] MEDS ORDERED: ONDANSETRON INJ 2 MG/ML 2 ML VIAL IV PRN (03:29)
[2018-10-15] MEDS: ACETAMINOPHEN 500 MG TAB PO SCH ×3 (05:47→21:41)
[2018-10-15] MEDS: SODIUM CHLORIDE 0.9% 1000ML 1,000 ML IV SCH (05:50)
[2018-10-15] MEDS: LEVOTHYROXINE SODIUM 100 MCG TABLET PO SCH (05:53)
[2018-10-15 06:19] LABS: Basophils # (auto) 0.01 K/uL (0-0.2); Basophils % (auto) 0.1 %; Eosinophils % (auto) 2.2 %; Hematocrit (blood only) 33.1 % (42-52); Hemoglobin 10.9 g/dL (14.0-18.0); Immature Granulocytes # (auto) 0.02 K/uL (0.00-0.02); Immature Granulocytes % (auto) 0.2 %; Lymphocytes # (auto) 0.68 K/uL (1.2-3.4); Lymphocytes % (auto) 7.5 %; Mean Corpuscular Hgb Conc 32.9 g/dL (32-36); Mean Corpuscular Volume 95.4 fL (80-100); Mean Platelet Volume 11.6 fL (7.4-10.4); Monocytes # (auto) 0.71 K/uL (0.11-0.59); Monocytes % (auto) 7.9 %; Neutrophils # (auto) 7.39 K/uL (1.4-6.5); Neutrophils % (auto) 82.1 %; Platelet Count 129 K/uL (130-400); RDW Coefficient of Variation 14.6 % (11.5-14.5); RDW Standard Deviation 50.5 fL (36.4-46.3); Red Blood Count 3.47 M/uL (4.7-6.1); White Blood Count 9.01 K/uL (4.8-10.8)
[2018-10-15 07:01] LABS: BUN Creatinine Ratio 19.2 (10-20); Calcium 6.8 mg/dl (8.5-10.1); Creatinine Clr Calc Pharmacy 47.9 ml/min; Est GFR (African American) 46.8; Est GFR (Non-African American) 40.4; Potassium 4.4 mmol/L (3.5-5.1)
--- NOTE | 2018-10-15 07:23 | Orthopedic Progress Note ---
Date of Service October 15, 2018 Assessment & Plan (1) Status post total hip replacement, left: He was seen and examined by Dr. Tamayo today. PT/OT wbat, total hip precautions dvt prophylaxis with teds, scds, aspirin discharge planning for tomorrow pain is controlled. Subjective POD #1 from Left TELLY Pain is controlled. No chest pain or shortness of breath. Some dizziness yesterday when he stood up but this is resolved. Physical Exam Vital Signs (Past 24 Hours): Last Vital Signs Temp 36.8 C 10/15/18 02:45 Pulse 64 10/15/18 02:45 Resp 18 10/15/18 03:30 BP 125/68 10/15/18 02:45 Pulse Ox 97 10/15/18 03:30 Musculoskeletal: alert and oriented. NAD Sitting on the side of his bed. Hip located. Moving toes appropriately. NVI
--- NOTE | 2018-10-15 08:40 | Anesthesiology Progress Note ---
Date of Service October 15, 2018 Anesthesia Post Procedure Vital Signs Vital Signs: Temp Pulse Pulse Pulse Resp BP BP 10/15/18 07:41 37.2 C 69 18 114/69 10/15/18 03:30 18 10/15/18 02:45 36.8 C 64 18 125/68 10/15/18 01:40 20 10/15/18 00:45 18 10/14/18 23:45 20 10/14/18 22:52 37.0 C 57 L 20 134/76 10/14/18 22:50 16 10/14/18 21:20 63 20 113/68 10/14/18 20:45 16 10/14/18 19:45 18 10/14/18 19:23 37.2 C 64 19 101/53 L 10/14/18 18:45 18 10/14/18 17:45 20 10/14/18 16:45 18 10/14/18 16:17 36.8 C 63 20 111/57 L 10/14/18 15:26 16 10/14/18 14:47 18 10/14/18 13:45 18 10/14/18 13:42 18 10/14/18 12:45 64 16 102/64 10/14/18 11:40 16 10/14/18 11:39 69 16 109/59 L 10/14/18 10:45 36.4 C L 63 14 117/65 10/14/18 10:10 63 18 113/68 10/14/18 09:45 36.5 C 62 16 115/63 10/14/18 09:36 36.9 C 10/14/18 09:31 63 16 108/54 L 10/14/18 09:30 69 16 10/14/18 09:25 80 14 111/57 L 10/14/18 09:20 61 14 107/60 10/14/18 09:15 68 16 109/55 L 10/14/18 09:10 67 14 113/51 L 10/14/18 09:08 72 14 108/56 L 10/14/18 09:07 81 14 10/14/18 09:06 59 L 16 103/39 L 10/14/18 09:05 73 22 10/14/18 09:01 61 18 102/50 L 10/14/18 09:00 59 L 18 10/14/18 08:56 65 14 90/42 L 10/14/18 08:55 68 13 10/14/18 08:51 67 14 96/44 L 10/14/18 08:50 66 14 10/14/18 08:48 37.2 C 66 60 14 101/46 L 101/46 L Pulse Ox 10/15/18 07:41 94 10/15/18 03:30 97 10/15/18 02:45 95 10/15/18 01:40 96 10/15/18 00:45 95 10/14/18 23:45 95 10/14/18 22:52 95 10/14/18 22:50 95 10/14/18 21:20 97 10/14/18 20:45 96 10/14/18 19:45 97 10/14/18 19:23 95 10/14/18 18:45 95 10/14/18 17:45 95 10/14/18 16:45 96 10/14/18 16:17 98 10/14/18 15:26 94 10/14/18 14:47 94 10/14/18 13:45 97 10/14/18 13:42 95 10/14/18 12:45 98 10/14/18 11:40 97 10/14/18 11:39 95 10/14/18 10:45 95 10/14/18 10:10 95 10/14/18 09:45 98 10/14/18 09:36 97 10/14/18 09:31 97 10/14/18 09:30 99 10/14/18 09:25 94 10/14/18 09:20 97 10/14/18 09:15 98 10/14/18 09:10 97 10/14/18 09:08 97 10/14/18 09:07 97 10/14/18 09:06 97 10/14/18 09:05 100 10/14/18 09:01 100 10/14/18 09:00 100 10/14/18 08:56 93 10/14/18 08:55 98 10/14/18 08:51 98 10/14/18 08:50 98 10/14/18 08:48 100 Pain Intensity Left Hip: Pain Intensity: 0 Notes Mental Status: alert / awake / arousable and participated in evaluation Patient Amnestic to Procedure: Yes Nausea / Vomiting: adequately controlled Pain: adequately controlled Airway Patency, RR, SpO2: stable & adequate BP & HR: stable & adequate Hydration State: stable & adequate Neuraxial Anesthesia: was administered and sensory block resolved Anesthetic Complications: no major complications apparent and Pt Satisfied with anesthetic care
[2018-10-15] MEDS: FERROUS GLUCONATE 324 MG TAB PO SCH ×2 (09:25→18:20)
[2018-10-15] MEDS: ASCORBIC ACID 500 MG TAB PO SCH ×2 (09:25→18:21)
[2018-10-15] MEDS: ASPIRIN 81 MG ECTAB PO SCH ×2 (09:26→20:48)
[2018-10-15] MEDS: DOCUSATE SODIUM 100 MG CAP PO SCH ×2 (09:26→20:45)
[2018-10-15] MEDS: MAGNESIUM OXIDE 400 MG TAB PO SCH ×2 (09:27→20:48)
[2018-10-15] MEDS: POTASSIUM CHLORIDE 20 MEQ TABCR PO SCH (09:27)
[2018-10-15] MEDS: CHOLECALCIFEROL 1,000 UNITS TAB PO SCH (09:28)
[2018-10-15] MEDS: CARVEDILOL 3.125 MG TAB PO SCH ×2 (09:32→20:48)
[2018-10-15] MEDS: HydrALAZINE TAB 50 MG TAB PO SCH ×3 (09:33→20:45)
[2018-10-15] MEDS: LISINOPRIL 20 MG TAB PO SCH (09:33)
[2018-10-15] MEDS: AMLODIPINE BESYLATE 5 MG TAB PO SCH (09:33)
[2018-10-15] MEDS: CITALOPRAM 20 MG TAB PO SCH (10:39)
[2018-10-15] MEDS: ALLOPURINOL 300 MG TAB PO SCH (10:39)
[2018-10-15] MEDS: MULTIVITAMIN TAB PO SCH (10:39)
[2018-10-15] MEDS: ATORVASTATIN 10 MG TAB PO SCH (20:46)
[2018-10-15] MEDS: SENNA 8.6 MG TAB PO SCH (20:47)
[2018-10-15] MEDS: PANTOprazole 40 MG TAB PO SCH (20:49)
[2018-10-15] MEDS: TERAZOSIN HCL 5 MG CAP PO SCH (20:49)
[2018-10-15] MEDS: TRAMADOL HCL 50 MG TABLET PO PRN (21:41)
[2018-10-16] MEDS: LEVOTHYROXINE SODIUM 100 MCG TABLET PO SCH (05:51)
[2018-10-16] MEDS: ACETAMINOPHEN 500 MG TAB PO SCH ×2 (05:51→13:58)
[2018-10-16 06:50] LABS: Calcium 7.5 mg/dl (8.5-10.1); Creatinine Clr Calc Pharmacy 50.4 ml/min; Est GFR (African American) 49.7; Est GFR (Non-African American) 42.9; Potassium 4.3 mmol/L (3.5-5.1)
--- NOTE | 2018-10-16 07:45 | Progress Note ---
DATE: 10/16/2018 SUBJECTIVE: A 78-year-old gentleman postop day 2 from a left hip replacement. He is doing pretty well. Pain is controlled. No chest pain or shortness of breath. Not feeling dizzy or lightheaded. OBJECTIVE: VITAL SIGNS: Temperature 37.1. Vital signs stable. GENERAL: Physical examination shows a pleasant, elderly male. He is sitting up in his bedside chair and looks comfortable. EXTREMITIES: Examination of the left hip reveals the leg lengths to be equal. Dressing is clean, dry and intact. Thigh is soft and supple. His hip is located. He is neurologically intact. LABORATORY DATA: Electrolytes, creatinine improved at 1.53. ASSESSMENT: A 78-year-old gentleman postop day 2 from a left hip replacement, doing pretty well. Pain is controlled. Creatinine was a bit elevated, but seems to be coming down. Otherwise, he is medically stable. PLAN: 1. DVT prophylaxis including thigh-high TEDs, SCDs, and aspirin twice a day. 2. PT/OT. Weight bear as tolerated. Left total hip protocol. 3. Pain control, doing well with current pain regimen. 4. Elevated creatinine. Creatinine stable and improving. Likely due to temporary volume depletion. 5. Disposition: Plan to discharge to home with some home health later today.
[2018-10-16] MEDS: CITALOPRAM 20 MG TAB PO SCH (09:18)
[2018-10-16] MEDS: ASCORBIC ACID 500 MG TAB PO SCH (09:18)
[2018-10-16] MEDS: DOCUSATE SODIUM 100 MG CAP PO SCH (09:19)
[2018-10-16] MEDS: POTASSIUM CHLORIDE 20 MEQ TABCR PO SCH (09:19)
[2018-10-16] MEDS: ASPIRIN 81 MG ECTAB PO SCH (09:19)
[2018-10-16] MEDS: MAGNESIUM OXIDE 400 MG TAB PO SCH (09:19)
[2018-10-16] MEDS: MULTIVITAMIN TAB PO SCH (09:20)
[2018-10-16] MEDS: ALLOPURINOL 300 MG TAB PO SCH (09:20)
[2018-10-16] MEDS: CHOLECALCIFEROL 1,000 UNITS TAB PO SCH (09:20)
[2018-10-16] MEDS: HydrALAZINE TAB 50 MG TAB PO SCH ×2 (09:22→14:00)
[2018-10-16] MEDS: CARVEDILOL 3.125 MG TAB PO SCH (09:22)
[2018-10-16] MEDS: LISINOPRIL 20 MG TAB PO SCH (09:23)
[2018-10-16] MEDS: AMLODIPINE BESYLATE 5 MG TAB PO SCH (09:23)
[2018-10-16] MEDS: TRAMADOL HCL 50 MG TABLET PO PRN (09:27)
[2018-10-16] MEDS: FERROUS GLUCONATE 324 MG TAB PO SCH (09:27)
--- NOTE | 2018-10-21 14:51 | Discharge Summary ---
ADMITTING PHYSICIAN AND SURGEON: Dr. Kvng Tamayo. ADMITTING DIAGNOSIS: Left hip degenerative joint disease. SURGERY PERFORMED: Left total hip arthroplasty. SECONDARY DIAGNOSES: Hypertension, sleep apnea, hypothyroidism, gastroesophageal reflux disease, obesity, BPH. CONSULTS: None obtained. HISTORY AND PHYSICAL EXAMINATION: Well documented in the patient's chart. HOSPITAL COURSE: The patient was admitted on 10/13/2018 underwent total hip arthroplasty, tolerated the procedure well. There were no complications. He was transferred to the PACU postoperatively and later to the orthopedic for further care. He was given Ancef for antibiotic prophylaxis, CARLOS stockings, SCDs and aspirin for DVT prophylaxis. Hemoglobin, hematocrit and vital signs were monitored during his hospital stay and remained stable. He did not require any blood transfusions. There were no complications. By postoperative day 2, he was tolerating a regular diet, pain was controlled with oral pain medicine. He was participating in physical therapy. On postop day 2, he was discharged home, set up with home health services, given printed discharge instructions including new prescriptions for strength Tylenol, aspirin and tramadol. Continue his home medications with the exception of his home dose of aspirin which was changed. Continue physical therapy, weightbearing as tolerated, CARLOS stockings, total hip precautions. Followup in approximately 2 weeks postoperatively or sooner if there are any problems or concerns.
== END 2018-10-16 14:51 | disposition home health service (06) | DRG 470 ==
LOC: ASU 06:06 → 3E 08:48

== ENCOUNTER 2019-05-22 13:21 | Inpatient (IN) ==
[2019-05-22] MEDS ORDERED: ONDANSETRON INJ 2 MG/ML 2 ML VIAL IV STA (14:03)
[2019-05-22 14:11] LABS: Basophils # (auto) 0.01 K/uL (0-0.2); Basophils % (auto) 0.1 %; Eosinophils # (auto) 0.05 K/uL (0-0.5); Eosinophils % (auto) 0.5 %; Hemoglobin 12.9 g/dL (14.0-18.0); Immature Granulocytes # (auto) 0.01 K/uL (0.00-0.02); Immature Granulocytes % (auto) 0.1 %; Lymphocytes # (auto) 0.83 K/uL (1.2-3.4); Lymphocytes % (auto) 8.7 %; Mean Corpuscular Hemoglobin 31.6 pg (25-34); Mean Corpuscular Hgb Conc 33.9 g/dL (32-36); Mean Corpuscular Volume 93.1 fL (80-100); Monocytes # (auto) 0.67 K/uL (0.11-0.59); Monocytes % (auto) 7.1 %; Neutrophils # (auto) 7.93 K/uL (1.4-6.5); Neutrophils % (auto) 83.5 %; Platelet Count 132 K/uL (130-400); RDW Coefficient of Variation 14.4 % (11.5-14.5); RDW Standard Deviation 49.1 fL (36.4-46.3); Red Blood Count 4.08 M/uL (4.7-6.1)
[2019-05-22] MEDS ORDERED: MoRPHine SULFATE 4 MG/ML 1 ML CARP\\VIAL ONE (14:22)
[2019-05-22] MEDS ORDERED: MoRPHine SULFATE 4 MG/ML 1 ML CARP\\VIAL IV STA (14:24)
[2019-05-22 14:29] LABS: Albumin Level 3.7 gm/dl (3.4-5.0); BUN Creatinine Ratio 13.9 (10-20); Calcium 8.1 mg/dl (8.5-10.1); Creatinine Clr Calc Pharmacy 55.4 ml/min; Potassium 3.2 mmol/L (3.5-5.1)
[2019-05-22 14:32] LABS: Albumin Globulin Ratio 1.2 (0.9-2); Bilirubin,Total 1.7 mg/dl (0.2-1); Total Protein 6.7 gm/dl (6.4-8.2)
[2019-05-22] MEDS ORDERED: SODIUM CHLORIDE 0.9% 1000ML 1,000 ML IV STA (14:55)
--- NOTE | 2019-05-22 15:30 | CT Scan Report ---
ABDOMEN AND PELVIS CT WITHOUT CONTRAST CT DOSE: 1616.90 mGy.cm HISTORY: Acute generalized abdominal pain with fever diffuse abd pain, fever TECHNIQUE: Multiaxial CT images of the abdomen and pelvis were performed without contrast. A dose lo wering technique was utilized adhering to the principles of ALARA. COMPARISON STUDY: CT abdomen and pelvis 02/14/2019 FINDINGS: Mild right hemidiaphragmatic elevation with subsegmental bibasilar opacities suggestive of atelectasi s. There is no pneumatosis or pneumoperitoneum. Imaged inferior cardiac chambers are mildly enlarged. Coronary arterial calcifications are noted. Trace pericardial effusion. Cholecystectomy. Limited evaluation of the solid abdominal organs without the use of IV contrast. Une nhanced liver is unremarkable. Unchanged 1.2 cm hypodense lesion of the spleen, image 25 series 2. Mi ld generalized pancreatic atrophy. No biliary ductal dilation. Adrenal glands are unremarkable. Mild nonspecific bilateral perinephric stranding. Hyperdense 1.4 cm lesion of the superior pole left kidne y suggests a probable proteinaceous or hemorrhagic cyst. No renal or ureteral calculi or obstructive uropathy. Limited evaluation of the urinary bladder secondary to streak artifact from bilateral hip a rthroplasties. Calcifications of the dependent urinary bladder measure up to 1.2 cm. Mild urinary cristine dder wall thickening with partial distention. Perivesicular stranding is noted with a small left late ral urinary bladder diverticulum. Calcified plaque of the abdominal aorta without aneurysm. Nonspecif ic prominent para-aortic and iliac chain lymph nodes measure up to approximately 8 mm. Small hiatal hernia. Mild wall thickening of the distal esophagus. There is no small bowel obstructio n. Appendix is dilated and fluid-filled, 1.2 cm with a 6 mm appendicolith. There is trace air within the appendiceal lumen with moderate periappendiceal inflammatory stranding and trace adjacent free fl uid. No drainable fluid collection. Diastases recti. Mild generalized body wall edema. Degenerative c hanges of the spine, pelvis and hips. IMPRESSION: 1. Findings compatible with acute uncomplicated appendicitis with appendicolith. No evidence of perfo ration or drainable fluid collection. 2. No bowel obstruction. 3. Urinary bladder calculi. 4. Evidence of chronic bladder outlet obstruction. 5. Cholecystectomy. 6. Additional findings as above. Electronically signed by: Dyllan Mortensen M.D. 05/22/2019 3:28 PM
[2019-05-22] MEDS ORDERED: cefOXitin 2,000 MG/60 ML BAG IV STA (16:00)
--- NOTE | 2019-05-22 17:23 | History & Physical Report ---
Date of Service May 22, 2019 Assessment & Plan (1) Acute appendicitis, uncomplicated: CT scan shows inflammation around appendix c/w acute appendicitis. Unusual in his age group and we discussed possible finding of mass or tumor mimicking appendicitis. Reviewed laparoscopic appendectomy with risks of bleeding, infection, conversion to open, need for larger procedure, postop ileus/ abscess, negative appy. Expected hospital stay and recovery discussed. He is interested with proceeding and consent was signed today. For OR today. Present on Admission?: Yes (2) Obstructive sleep apnea on CPAP: will ask medicine to see and manage other medical issues (3) Hypertension: (4) Diastolic heart failure: History of Present Illness Chief Complaint: abdominal pain Primary Care Provider: Musa Stout MD 79 yr old man with history of abdominal pain frequently over the past few years with most diagnoses c/w pancreatitis presents with 1 day of lower abdominal pain which feels different than prior episodes. Pain is in both lower quadrants, moderate severity, associated with anorexia, nausea. No emesis. Thought he might be constipated but bowels are working now. Does not radiate to back, worse with pressure against it, better if lays still. He has had an appendicolith in the appendix on prior CT scans but never had inflammation surrounding the appendix before [facility]. Only prior abdominal operation is lap cholecystectomy. He has a history of known heart disease with paroxysmal SVT, history of CHF but not requiring hospitalizations for this. No prior [place]. Followed by Amadeo Gomez at [facility] and last stress/ evaluation was in January / Feb 2019 and family states it looked fine. Family states he has multiple myeloma (not on treatment currently) but that all family members are not aware of this diagnosis. Allergies Allergy/AdvReac Type Severity Reaction Status Date / Time No Known Allergies Allergy Verified 05/22/19 14:03 Home Medications Home Medications Medication Instructions Recorded Confirmed Type allopurinol 300 mg PO QAM 04/30/18 05/22/19 History atorvastatin 5 mg PO HS 04/30/18 05/22/19 History cholecalciferol (vitamin D3) 2,000 unit PO QAM 04/30/18 05/22/19 History [Vitamin D3] citalopram [Celexa] 20 mg PO QAM 04/30/18 05/22/19 History hydralazine 50 mg PO TID 04/30/18 05/22/19 History levothyroxine 100 mcg PO QAM 04/30/18 05/22/19 History magnesium oxide 400 mg PO BID 04/30/18 05/22/19 History omeprazole 40 mg PO HS 04/30/18 05/22/19 History terazosin 5 mg PO HS 04/30/18 05/22/19 History amlodipine 5 mg PO QAM 09/18/18 05/22/19 History carvedilol 3.125 mg PO BID 09/18/18 05/22/19 History lisinopril 20 mg PO QAM 09/18/18 05/22/19 History potassium chloride 20 meq PO QAM 09/18/18 05/22/19 History Past Med/Surg History Medical History Acute respiratory failure with hypoxia (Acute) 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) Carpal tunnel syndrome (Chronic) CKD (chronic kidney disease), stage III (Chronic) Diastolic heart failure (Chronic) GERD (gastroesophageal reflux disease) (Chronic) Gout (Chronic) History of cardiac arrhythmia (Resolved) History of paroxysmal supraventricular tachycardia (Resolved) Hyperlipidemia Hypertension (Chronic) Insomnia (Chronic) LBBB (left bundle branch block) (Chronic) Morbid (severe) obesity due to excess calories Neuralgia ON SIDE OF FACE Nonobstructive atherosclerosis of coronary artery By 05/2010 catheterization Obstructive sleep apnea on CPAP (Chronic) Pneumonia (Acute) Pneumonia (Acute) Hospitalized May/Jun 2018 after failing OP treatment. SVT in setting of hypokalemia noted during that admission. Admitted again to [facility] 07/28-07/30/18 for pneumonia with hypoxia. No arrhythmia noted. Lungs CTA B/L on exam at PAT 09/25. Prolonged QT interval (Chronic) Restless leg syndrome (Chronic) Surgical History H/O cataract removal with insertion of prosthetic lens H/O knee surgery H/O sinus surgery History of bilateral knee arthroplasty History of cataract surgery RT/LEFT History of colonoscopy History of esophagogastroduodenoscopy (EGD) History of hip surgery History of tooth extraction History of total right hip arthroplasty Hx of cholecystectomy Status post total hip replacement, left Family History Father Heart disease Mother Diabetes Hypertension Brother Family hx of colon cancer Social History Preferred Language: Ecuadorean Communication Ability: Effective [employer]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 [employer] Required: No Beliefs That Will Affect Care: None marital status: Current Living Situation: Spouse Feels Safe at Home: Yes Smoking Status: Never smoker Second Hand Exposure: No ; Hx Alcohol Use: No Hx Substance Use: No Review of Systems Constitutional: no fever and no chills Eyes: no problem reported Respiratory: + problem reported has sleep apnea for which he uses cpap Cardiovascular: Additional Comments: history of chf but well compensated now Gastrointestinal: as per Subjective / HPI Neurologic: no problem reported Psychiatric: no problem reported Physical Exam Constitutional: WD/WN, vitals as above + obese Eyes: + anicteric sclerae Respiratory: normal respiratory effort, lungs clear to auscultation Cardiovascular: Rate/Rhythm: regular rhythm Heart Sounds: normal S1 and normal S2 Vessels: no JVD Gastrointestinal (Abdomen): Inspection/Auscultation: abdomen normal to inspection; abdomen not distended Percussion/Palpation: + abdomen tender (bilateral lower quadrants) and abdomen soft; no guarding pos for diastasis recti Neurologic: moves all extremities; no focal motor deficits Psychiatric: A+Ox3, euthymic affect Results & Data Vital Signs (Past 12 Hours) Vital Signs Temp Pulse Pulse Resp BP BP Pulse Ox 05/22/19 17:01 71 39 H 96 05/22/19 17:00 76 20 129/63 96 05/22/19 16:31 82 22 95 05/22/19 16:30 80 19 126/70 95 05/22/19 16:01 82 19 96 05/22/19 16:00 81 29 H 156/71 H 97 05/22/19 15:39 86 30 H 167/83 H 88 L 05/22/19 15:38 83 29 H 05/22/19 14:31 67 29 H 98 05/22/19 14:30 70 30 H 133/75 98 05/22/19 14:24 64 17 138/71 98 05/22/19 14:16 66 29 H 134/69 89 L 05/22/19 14:01 68 22 134/69 93 05/22/19 14:00 75 21 95 05/22/19 13:56 69 20 05/22/19 13:32 37.7 C H 70 20 145/77 H 94 Laboratory Results WBC count normal Diagnostic Findings CT abd/ pelvis: FINDINGS: Mild right hemidiaphragmatic elevation with subsegmental bibasilar opacities suggestive of atelectasis. There is no pneumatosis or pneumoperitoneum. Imaged inferior cardiac chambers are mildly enlarged. Coronary arterial calcifications are noted. Trace pericardial effusion. Cholecystectomy. Limited evaluation of the solid abdominal organs without the use of IV contrast. Unenhanced liver is unremarkable. Unchanged 1.2 cm hypodense lesion of the spleen, image 25 series 2. Mild generalized pancreatic atrophy. No biliary ductal dilation. Adrenal glands are unremarkable. Mild nonspecific bilateral perinephric stranding. Hyperdense 1.4 cm lesion of the superior pole left kidney suggests a probable proteinaceous or hemorrhagic cyst. No renal or ureteral calculi or obstructive uropathy. Limited evaluation of the urinary bladder secondary to streak artifact from bilateral hip arthroplasties. Calcifications of the dependent urinary bladder measure up to 1.2 cm. Mild urinary bladder wall thickening with partial distention. Perivesicular stranding is noted with a small left lateral urinary bladder diverticulum. Calcified plaque of the abdominal aorta without aneurysm. Nonspecific prominent para- aortic and iliac chain lymph nodes measure up to approximately 8 mm. Small hiatal hernia. Mild wall thickening of the distal esophagus. There is no small bowel obstruction. Appendix is dilated and fluid-filled, 1.2 cm with a 6 mm appendicolith. There is trace air within the appendiceal lumen with moderate periappendiceal inflammatory stranding and trace adjacent free fluid. No drainable fluid collection. Diastases recti. Mild generalized body wall edema. Degenerative changes of the spine, pelvis and hips. IMPRESSION: 1. Findings compatible with acute uncomplicated appendicitis with appendicolith. No evidence of perforation or drainable fluid collection. 2. No bowel obstruction. 3. Urinary bladder calculi. 4. Evidence of chronic bladder outlet obstruction. 5. Cholecystectomy. 6. Additional findings as above.
[2019-05-22] MEDS ORDERED: PROPOFOL IV EMULSION 10 MG/ML 20 ML VIAL IV ONE (17:53)
[2019-05-22] MEDS ORDERED: ONDANSETRON INJ 2 MG/ML 2 ML VIAL ONE (17:53)
[2019-05-22] MEDS ORDERED: fentaNYL citrate 100 MCG/2 ML VIAL ONE ×2 (17:53→21:48)
[2019-05-22] MEDS ORDERED: CISATRACURIUM BESYLATE IV SOLN 2 MG/ML 10 ML VIAL IV ONE (17:53)
[2019-05-22] MEDS ORDERED: LIDOCAINE HCL 2% 2 ML VIAL/AMP(20MG/ML) INFIL ONE (17:53)
--- NOTE | 2019-05-22 18:22 | Anesthesiology Consultation ---
Date of Service May 22, 2019 Assessment & Plan Chart Review Chart Review: Acceptable Risk for Surgery and Patient NOT seen in Pre Admission Testing Consults Requested none ASA [id number] Proposed Anesthesia Anesthesia Type: General Anesthesia Line Insertion: Arterial line Risk / Benefits Reviewed With: PT / POA / Parent / Guardian, Accepts Plan and Informed Consent Obtained History Surgery Operation Date: 05/22/19 19:00 Proposed Procedures p Laparoscopic Appendectomy - Doris Sanabria MD Height/Weight Height: 5 ft 7 in Weight: 120 kg Allergies Allergy/AdvReac Type Severity Reaction Status Date / Time No Known Allergies Allergy Verified 05/22/19 14:03 Medications Home Medications Medication Instructions Recorded Confirmed Last Taken allopurinol 300 mg PO QAM 04/30/18 05/22/19 10/13/18 06:30 atorvastatin 5 mg PO HS 04/30/18 05/22/19 10/13/18 06:30 cholecalciferol (vitamin D3) 2,000 unit PO QAM 04/30/18 05/22/19 10/12/18 17:00 [Vitamin D3] citalopram [Celexa] 20 mg PO QAM 04/30/18 05/22/19 10/14/18 05:00 hydralazine 50 mg PO TID 04/30/18 05/22/19 10/14/18 05:00 levothyroxine 100 mcg PO QAM 04/30/18 05/22/19 10/14/18 05:00 magnesium oxide 400 mg PO BID 04/30/18 05/22/19 10/13/18 17:00 omeprazole 40 mg PO HS 04/30/18 05/22/19 10/13/18 21:00 terazosin 5 mg PO HS 04/30/18 05/22/19 10/13/18 21:00 amlodipine 5 mg PO QAM 09/18/18 05/22/19 10/14/18 05:00 carvedilol 3.125 mg PO BID 09/18/18 05/22/19 10/14/18 05:00 lisinopril 20 mg PO QAM 09/18/18 05/22/19 10/14/18 05:00 potassium chloride 20 meq PO QAM 09/18/18 05/22/19 10/13/18 21:00 Active Medications Generic Name Dose Route Start Last Admin Trade Name Freq PRN Reason Stop Dose Admin Sodium Chloride 1,000 mls @ 125 mls/hr 05/22/19 14:55 05/22/19 15:39 Nss 1000ml IV 05/22/19 22:54 125 mls/hr .Q8H STA Administration NPO Date Last Intake of Fluids: 05/22/19 Time Last Intake of Fluids: 11:30 Date Last Intake of Solids: 05/22/19 Time Last Intake of Solids: 11:30 Past Medical History Medical History Acute respiratory failure with hypoxia (Acute) 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) Carpal tunnel syndrome (Chronic) CKD (chronic kidney disease), stage III (Chronic) Diastolic heart failure (Chronic) GERD (gastroesophageal reflux disease) (Chronic) Gout (Chronic) History of cardiac arrhythmia (Resolved) History of paroxysmal supraventricular tachycardia (Resolved) Hyperlipidemia Hypertension (Chronic) Insomnia (Chronic) LBBB (left bundle branch block) (Chronic) Morbid (severe) obesity due to excess calories Neuralgia ON SIDE OF FACE Nonobstructive atherosclerosis of coronary artery By 05/2010 catheterization Obstructive sleep apnea on CPAP (Chronic) Pneumonia (Acute) Pneumonia (Acute) Hospitalized May/Jun 2018 after failing OP treatment. SVT in setting of hypokalemia noted during that admission. Admitted again to [facility] 07/28-07/30/18 for pneumonia with hypoxia. No arrhythmia noted. Lungs CTA B/L on exam at PAT 09/25. Prolonged QT interval (Chronic) Restless leg syndrome (Chronic) Exercise / Class Metabolic Activity III < 4 Walking/Shop/Light housework Past Family History Family History Father Heart disease Mother Diabetes Hypertension Brother Family hx of colon cancer Past Surgical History Surgical History H/O cataract removal with insertion of prosthetic lens H/O knee surgery H/O sinus surgery History of bilateral knee arthroplasty History of cataract surgery RT/LEFT History of colonoscopy History of esophagogastroduodenoscopy (EGD) History of hip surgery History of tooth extraction History of total right hip arthroplasty Hx of cholecystectomy Status post total hip replacement, left Past Anesthesia History No Hx of Anesthesia Complications and No Family Hx of Anesthesia Complications History of PONV No Hx of PONV and No Hx of Motion Sickness Social History Smoking Status: Never smoker Hx Alcohol Use: No Hx Substance Use: No substance use type: does not use Physical Exam Vital Signs Last Vital Signs Temp 37.7 C H 05/22/19 13:32 Pulse 71 05/22/19 17:01 Resp 39 H 05/22/19 17:01 BP 129/63 05/22/19 17:00 Pulse Ox 96 05/22/19 17:01 Constitutional + morbidly obese ENMT Mouth: + edentulous Thyromental Distance: > or= 3.5 Finger Breadths Mallampati Class: II Neck normal visual inspection, trachea midline and + facial hair; neck extension not limited Respiratory Auscultation: lungs clear to auscultation bilaterally and + diminished lung sounds pt. splints when taking a deep breath Cardiovascular Rate/Rhythm: regular rate and regular rhythm Heart Sounds: no murmur Vessels: no carotid bruit Musculoskeletal Spine: normal cervical ROM Extremities: + extremities abnormal to inspection (LE 2-3 + pitting edema) Neurologic moves all extremities Motor/Sensory: no sensory deficit Psychiatric Orientation: alert and oriented x 3 Testing Laboratory Results 05/22/19 14:00 05/22/19 14:00 troponin-0.041 Electrocardiogram Date: 05/22/19 Findings: + LBBB SR at 67 w/ 1st degree AV block;PVC's;LAD;LBBB Echocardiogram Date: 01/29/19 EF: 55 LV Function: RV function NL RWMA: + none Other Findings: + atrial enlargement (moderately enlarged LA) and + LVH (moderate) Valvular Disease: + no significant valvular disease Stress Test Date: 09/26/17 Type: nuclear Findings: + WNL and + pertinent finding (no inducible ischemia); no ischemia Cardiac Catheterization Date: 05/12/10 Findings: + RCA (mid 40-50%), + LMA (LMT NL;LAD multiple 30-40% lesions;D1-50% prox.;D2-30% ostial) and + LCX (LI's); no valve disease Intervention: + none
--- NOTE | 2019-05-22 19:12 | XRay Report ---
XR chest 1V portable HISTORY: 79 years-old Male chf acute shortness of breath with congestive heart failure COMPARISON: Chest radiograph 09/25/2018, CT abdomen and pelvis 05/22/2019 TECHNIQUE: Portable AP view of the chest FINDINGS: Moderate cardiomegaly. Unchanged right hemidiaphragmatic elevation. There is no pneumothorax or large pleural effusion. Minimal subsegmental bibasilar opacities are noted along with mild pulmonary vascu lar congestion. No overt pulmonary edema. Degenerative changes of the shoulders and spine. IMPRESSION: 1. Cardiomegaly with mild pulmonary vascular congestion. 2. Mild bibasilar atelectasis. 3. Unchanged right hemidiaphragmatic elevation. The above report was generated using voice recognition software. It may contain grammatical, syntax o r spelling errors. Electronically signed by: Dyllan Mortensen M.D. 05/22/2019 7:10 PM
[2019-05-22] MEDS ORDERED: BUPIVACAINE 0.5 % 5 MG/1 ML MPF 30ML VIAL ONE (19:22)
[2019-05-22] MEDS ORDERED: fentaNYL citrate 100 MCG/2 ML VIAL IV PRN (20:16)
[2019-05-22] MEDS ORDERED: ePHEDrine sulfate 50 MG/ML AMP IV PRN (20:16)
[2019-05-22] MEDS ORDERED: ATROPINE SULFATE 0.1 MG/ML 10ML SYR IV PRN (20:16)
[2019-05-22] MEDS ORDERED: ePHEDrine sulfate 50 MG/ML SYR ONE (20:17)
[2019-05-22] MEDS ORDERED: ETOMIDATE 2 MG/ML 20 ML VIAL IV ONE (20:17)
--- NOTE | 2019-05-22 20:41 | Emergency Department Note ---
Entered by Bernadette Cabral acting as a scribe for ED Provider Note CHIEF COMPLAINT: Lower Abdominal Pain HISTORY OF PRESENT ILLNESS: The patient is a 79 year old male who presents to the Emergency Room with complaints of bilateral lower abdominal pain beginning yesterday. He notes his pain radiates into his back. He rates his pain as a 9/10 in severity. He states he has never had anything like this before. Pt denies history of kidney stones, LOC, headache, fevers, chills, diaphoresis, visual changes, neck pain, chest pain, breathing difficulties, nausea, vomiting, melena, hematochezia, urinary symptoms, numbness, weakness, lymphadenopathy, rash, or other complaints. His PCP is Dr. Ramos, Family Medicine. REVIEW OF SYSTEMS: See HPI for pertinent positives and negatives. A total of ten systems were reviewed and were otherwise negative. PMHx/PSHx: Acute respiratory failure with hypoxia Pneumonia History of cardiac arrhythmia CKD (stage III) HTN Prolonged QT interval LBBB BPH ASCVD GERD SOCIAL HISTORY: Patient lives at home. PHYSICAL EXAM: GENERAL: Awake, alert, well-appearing, in no distress HENT: Normocephalic, atraumatic. Oropharynx unremarkable. EYES: PERRL. Normal conjunctiva. Sclera non-icteric. NECK: Inspection normal. Non-tender. Supple. No nuchal rigidity. FROM. No masses. RESPIRATORY: Clear to auscultation. No wheezes. No rales. Normal respiratory effort. CARDIAC: Normal rate. Normal rhythm. No murmurs. No rubs. Extremities warm and well perfused. Pulses equal. No JVD. GI: Soft, non-distended. Diffuse abdominal tenderness. Rebound and guarding. No masses. RECTAL: Deferred. MUSCULOSKELETAL: Atraumatic. Chest examination reveals no tenderness. The back is symmetrical on inspection without obvious abnormality. There is no CVA tenderness to palpation. No joint edema. LOWER EXTREMITIES: Calves are equal size bilaterally and non-tender. 1+ BLE edema. No discoloration. NEURO: Normal sensorium. No sensory or motor deficits noted. SKIN: No rash or jaundice noted. EMERGENCY DEPARTMENT COURSE: 1449: Past medical records reviewed. The patient was evaluated in room C11, and a complete history and physical examination were performed. 1605: I checked on the patient at this time. He is feeling better. Dr. Sanabria, General Surgery was paged. She is in the OR but will see the patient afterwards. MEDICAL DECISION MAKING: Triage Nursing notes reviewed and agree them. Additional history obtained from family. The patient's history was concerning for abdominal pain. Differential diagnosis: Etiologies such as appendicitis, diverticulitis, PUD, biliary pathology, UTI, pancreatitis, obstruction, mesenteric ischemia, aortic pathology, infections, inflammatory bowel disease, renal colic, as well as others were entertained. Physical examination findings: As above. ER treatment provided: IV morphine IV Zofran Normal saline hydration On reassessment patient felt marginally better. IV Dilaudid On reassessment the patient felt better. IV Mefoxin Diagnostics interpreted by me: ECG: No acute ischemia The labs revealed a mild anemia on CBC. Chemistry panel revealed some mild hypokalemia. Imaging studies: CT scan of the abdomen pelvis was performed and revealed acute appendicitis. Patient will need acute surgical management. Consultation: A consultation was placed with the general surgeon on-call Dr. Sanabria. The patient was evaluated in the ER for further treatment. IMPRESSION: Acute uncomplicated appendicitis Peritonitis PLAN: Being Evaluated by Surgeon The scribe's documentation has been prepared under my direction and personally reviewed by me in its entirety. I confirm that the note above accurately reflects all work, treatment, procedures, and medical decision making performed by me. Impression & Plan Acute appendicitis, uncomplicated, Peritonitis Past Med/Surg History Medical History Acute respiratory failure with hypoxia (Acute) 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) Carpal tunnel syndrome (Chronic) CKD (chronic kidney disease), stage III (Chronic) Diastolic heart failure (Chronic) GERD (gastroesophageal reflux disease) (Chronic) Gout (Chronic) History of cardiac arrhythmia (Resolved) History of paroxysmal supraventricular tachycardia (Resolved) Hyperlipidemia Hypertension (Chronic) Insomnia (Chronic) LBBB (left bundle branch block) (Chronic) Morbid (severe) obesity due to excess calories Neuralgia ON SIDE OF FACE Nonobstructive atherosclerosis of coronary artery By 05/2010 catheterization Obstructive sleep apnea on CPAP (Chronic) Pneumonia (Acute) Pneumonia (Acute) Hospitalized May/Jun 2018 after failing OP treatment. SVT in setting of hypokalemia noted during that admission. Admitted again to [facility] 07/28-07/30/18 for pneumonia with hypoxia. No arrhythmia noted. Lungs CTA B/L on exam at PAT 09/25. Prolonged QT interval (Chronic) Restless leg syndrome (Chronic) Surgical History H/O cataract removal with insertion of prosthetic lens H/O knee surgery H/O sinus surgery History of bilateral knee arthroplasty History of cataract surgery RT/LEFT History of colonoscopy History of esophagogastroduodenoscopy (EGD) History of hip surgery History of tooth extraction History of total right hip arthroplasty Hx of cholecystectomy Status post total hip replacement, left Family History Father Heart disease Mother Diabetes Hypertension Brother Family hx of colon cancer Social History Preferred Language: Hebrew Communication Ability: Effective Stores Assistant Required: No Beliefs That Will Affect Care: None marital status: Current Living Situation: Spouse Feels Safe at Home: Yes Smoking Status: Never smoker Second Hand Exposure: No ; Hx Alcohol Use: No Hx Substance Use: No Results & Data Vital Signs Vital Signs - 24 hr 05/22/19 13:32 05/22/19 13:56 05/22/19 14:00 Temperature 37.7 C H Temperature Source Oral Pulse Rate 70 69 75 Pulse Rate [Apical] Pulse Rate from SpO2 Sensor 68 Pulse Rhythm Regular Pulse Rhythm [Apical] Respiratory Rate 20 20 21 Respiratory Effort / Characteristics Non-Labored Spontaneous Respiratory Depth Normal Respiratory Pattern Regular Blood Pressure 145/77 H Blood Pressure [Right Arm] Blood Pressure Mean 99 Blood Pressure Mean [Right Arm] Blood Pressure Position Sitting Blood Pressure Position [Right Arm] Pulse Oximetry 94 95 Oxygen Delivery Method Room Air Oxygen Flow Rate Sepsis Recent Fever Within 48 Hours No Sepsis New/Unexplained Change in Mental Status No Sepsis Action Taken by Nursing No Action Required 05/22/19 14:01 05/22/19 14:16 05/22/19 14:24 Temperature Temperature Source Pulse Rate 68 64 Pulse Rate [Apical] 66 Pulse Rate from SpO2 Sensor 69 63 Pulse Rhythm Pulse Rhythm [Apical] Regular Respiratory Rate 22 29 H 17 Respiratory Effort / Characteristics Moaning Respiratory Depth Respiratory Pattern Blood Pressure 134/69 138/71 Blood Pressure [Right Arm] 134/69 Blood Pressure Mean 101 94 Blood Pressure Mean [Right Arm] 90 Blood Pressure Position Blood Pressure Position [Right Arm] Lying Pulse Oximetry 93 89 L 98 Oxygen Delivery Method Room Air Oxygen Flow Rate Sepsis Recent Fever Within 48 Hours Sepsis New/Unexplained Change in Mental Status Sepsis Action Taken by Nursing 05/22/19 14:30 05/22/19 14:31 05/22/19 15:38 Temperature Temperature Source Pulse Rate 70 67 83 Pulse Rate [Apical] Pulse Rate from SpO2 Sensor 72 67 Pulse Rhythm Pulse Rhythm [Apical] Respiratory Rate 30 H 29 H 29 H Respiratory Effort / Characteristics Respiratory Depth Respiratory Pattern Blood Pressure 133/75 Blood Pressure [Right Arm] Blood Pressure Mean 102 Blood Pressure Mean [Right Arm] Blood Pressure Position Blood Pressure Position [Right Arm] Pulse Oximetry 98 98 Oxygen Delivery Method Oxygen Flow Rate Sepsis Recent Fever Within 48 Hours Sepsis New/Unexplained Change in Mental Status Sepsis Action Taken by Nursing 05/22/19 15:39 05/22/19 16:00 05/22/19 16:01 Temperature Temperature Source Pulse Rate 86 81 82 Pulse Rate [Apical] Pulse Rate from SpO2 Sensor 88 77 76 Pulse Rhythm Pulse Rhythm [Apical] Respiratory Rate 30 H 29 H 19 Respiratory Effort / Characteristics Respiratory Depth Respiratory Pattern Blood Pressure 167/83 H 156/71 H Blood Pressure [Right Arm] Blood Pressure Mean 112 88 Blood Pressure Mean [Right Arm] Blood Pressure Position Blood Pressure Position [Right Arm] Pulse Oximetry 88 L 97 96 Oxygen Delivery Method Oxygen Flow Rate Sepsis Recent Fever Within 48 Hours Sepsis New/Unexplained Change in Mental Status Sepsis Action Taken by Nursing 05/22/19 16:30 05/22/19 16:31 05/22/19 17:00 Temperature Temperature Source Pulse Rate 80 82 76 Pulse Rate [Apical] Pulse Rate from SpO2 Sensor 77 75 75 Pulse Rhythm Pulse Rhythm [Apical] Respiratory Rate 19 22 20 Respiratory Effort / Characteristics Respiratory Depth Respiratory Pattern Blood Pressure 126/70 129/63 Blood Pressure [Right Arm] Blood Pressure Mean 93 102 Blood Pressure Mean [Right Arm] Blood Pressure Position Blood Pressure Position [Right Arm] Pulse Oximetry 95 95 96 Oxygen Delivery Method Nasal Cannula Oxygen Flow Rate 2 Sepsis Recent Fever Within 48 Hours Sepsis New/Unexplained Change in Mental Status Sepsis Action Taken by Nursing 05/22/19 17:01 05/22/19 17:30 05/22/19 17:31 Temperature Temperature Source Pulse Rate 71 73 75 Pulse Rate [Apical] Pulse Rate from SpO2 Sensor 73 74 74 Pulse Rhythm Pulse Rhythm [Apical] Respiratory Rate 39 H 22 20 Respiratory Effort / Characteristics Respiratory Depth Respiratory Pattern Blood Pressure 141/67 H Blood Pressure [Right Arm] Blood Pressure Mean 96 Blood Pressure Mean [Right Arm] Blood Pressure Position Blood Pressure Position [Right Arm] Pulse Oximetry 96 97 96 Oxygen Delivery Method Oxygen Flow Rate Sepsis Recent Fever Within 48 Hours Sepsis New/Unexplained Change in Mental Status Sepsis Action Taken by Nursing 05/22/19 18:00 05/22/19 18:01 05/22/19 18:30 Temperature Temperature Source Pulse Rate 79 78 77 Pulse Rate [Apical] Pulse Rate from SpO2 Sensor 79 79 78 Pulse Rhythm Pulse Rhythm [Apical] Respiratory Rate 19 18 22 Respiratory Effort / Characteristics Respiratory Depth Respiratory Pattern Blood Pressure 147/73 H 139/65 Blood Pressure [Right Arm] Blood Pressure Mean 89 91 Blood Pressure Mean [Right Arm] Blood Pressure Position Blood Pressure Position [Right Arm] Pulse Oximetry 96 96 96 Oxygen Delivery Method Oxygen Flow Rate Sepsis Recent Fever Within 48 Hours Sepsis New/Unexplained Change in Mental Status Sepsis Action Taken by Nursing 05/22/19 18:31 05/22/19 19:00 05/22/19 19:01 Temperature Temperature Source Pulse Rate 80 88 86 Pulse Rate [Apical] Pulse Rate from SpO2 Sensor 79 89 83 Pulse Rhythm Pulse Rhythm [Apical] Respiratory Rate 17 23 22 Respiratory Effort / Characteristics Respiratory Depth Respiratory Pattern Blood Pressure 143/81 H Blood Pressure [Right Arm] Blood Pressure Mean 110 Blood Pressure Mean [Right Arm] Blood Pressure Position Blood Pressure Position [Right Arm] Pulse Oximetry 96 95 96 Oxygen Delivery Method Oxygen Flow Rate Sepsis Recent Fever Within 48 Hours Sepsis New/Unexplained Change in Mental Status Sepsis Action Taken by [facility] Medications Current Medication List: was personally reviewed by me Laboratory Data Attestation: I reviewed the patient's lab results. Result diagrams: 05/22/19 14:00 05/22/19 14:00 Lab Results 05/22/19 05/22/19 05/22/19 Range/Units 14:00 14:00 14:00 WBC 9.50 (4.8-10.8) K/uL RBC 4.08 L (4.7-6.1) M/uL Hgb 12.9 L (14.0-18.0) g/dL Hct 38.0 L (42-52) % MCV 93.1 (80-100) fL MCH 31.6 (25-34) pg MCHC 33.9 (32-36) g/dL RDW Std Deviation 49.1 H (36.4-46.3) fL RDW Coeff of [place] 14.4 (11.5-14.5) % Plt Count 132 (130-400) K/uL MPV 12.0 H (7.4-10.4) fL Immature Gran % (Auto) 0.1 % Neut % (Auto) 83.5 % Lymph % (Auto) 8.7 % [place] % (Auto) 7.1 % Eos % (Auto) 0.5 % Baso % (Auto) 0.1 % Immature Gran # (Auto) 0.01 (0.00-0.02) K/uL Neut # (Auto) 7.93 H (1.4-6.5) K/uL Lymph # (Auto) 0.83 L (1.2-3.4) K/uL [place] # (Auto) 0.67 H (0.11-0.59) K/uL Eos # (Auto) 0.05 (0-0.5) K/uL Baso # (Auto) 0.01 (0-0.2) K/uL Sodium 140 (136-145) mmol/L Potassium 3.2 L (3.5-5.1) mmol/L Chloride 106 (98-107) mmol/L Carbon Dioxide 28 (21-32) mmol/L Anion Gap 6.0 (3-11) BUN 19 H (7-18) mg/dl Creatinine 1.34 (0.6-1.4) mg/dl Est Cr Clr Drug Dosing 55.4 ml/min Est GFR ( Amer) 58.0 Est GFR (Non-Af Amer) 50.0 BUN/Creatinine Ratio 13.9 (10-20) Glucose 114 H (70-99) mg/dl Calcium 8.1 L (8.5-10.1) mg/dl Total Bilirubin 1.7 H (0.2-1) mg/dl AST 15 (15-37) U/L ALT 16 (12-78) U/L Alkaline Phosphatase 60 (45-117) U/L Troponin I 0.041 (0-0.045) ng/ml Total Protein 6.7 (6.4-8.2) gm/dl Albumin 3.7 (3.4-5.0) gm/dl Globulin 3.0 (2.5-4.0) gm/dl Albumin/Globulin Ratio 1.2 (0.9-2) Lipase 113 (73-393) U/L Administered Medications Sodium Chloride (Nss 1000ml) 1,000 mls @ 125 mls/hr IV .Q8H STA Stop: 05/22/19 22:54 Last Admin: 05/22/19 15:39 Dose: 125 mls/hr Documented by: [id number] Discontinued Medications Cefoxitin Sodium (Mefoxin) 2,000 mg in 60 mls @ 100 mls/hr IV NOW STA Stop: 05/22/19 16:35 Last Infusion: 05/22/19 17:07 Dose: 0 mls/hr Documented by: [id number] Admin: 05/22/19 16:16 Dose: 100 mls/hr Documented by: [id number] Morphine Sulfate (Morphine Sulfate) Confirm Administered Dose 4 mg .ROUTE .STK- MED ONE Stop: 05/22/19 14:23 Last Admin: 05/22/19 14:25 Dose: Not Given Documented by: [id number] Morphine Sulfate (Morphine Sulfate) 4 mg IV NOW STA Stop: 05/22/19 14:25 Last Admin: 05/22/19 14:25 Dose: 4 mg Documented by: [id number] Ondansetron HCl (Zofran) 4 mg IV NOW STA Stop: 05/22/19 14:04 Last Admin: 05/22/19 14:07 Dose: 4 mg Documented by: [id number] Imaging Data Radiologist's Impression: Radiology results as stated below per my review and the radiologist's interpretation: ABDOMEN AND PELVIS CT WITHOUT CONTRAST CT DOSE: 1616.90 mGy.cm HISTORY: Acute generalized abdominal pain with fever diffuse abd pain, fever TECHNIQUE: Multiaxial CT images of the abdomen and pelvis were performed without contrast. A dose lowering technique was utilized adhering to the principles of ALARA. COMPARISON STUDY: CT abdomen and pelvis 02/14/2019 FINDINGS: Mild right hemidiaphragmatic elevation with subsegmental bibasilar opacities suggestive of atelectasis. There is no pneumatosis or pneumoperitoneum. Imaged inferior cardiac chambers are mildly enlarged. Coronary arterial calcifications are noted. Trace pericardial effusion. Cholecystectomy. Limited evaluation of the solid abdominal organs without the use of IV contrast. Unenhanced liver is unremarkable. Unchanged 1.2 cm hypodense lesion of the spleen, image 25 series 2. Mild generalized pancreatic atrophy. No biliary ductal dilation. Adrenal glands are unremarkable. Mild nonspecific bilateral perinephric stranding. Hyperdense 1.4 cm lesion of the superior pole left kidney suggests a probable proteinaceous or hemorrhagic cyst. No renal or ureteral calculi or obstructive uropathy. Limited evaluation of the urinary bladder secondary to streak artifact from bilateral hip arthroplasties. Calcifications of the dependent urinary bladder measure up to 1.2 cm. Mild urinary bladder wall thickening with partial distention. Perivesicular stranding is noted with a small left lateral urinary bladder diverticulum. Calcified pl aque of the abdominal aorta without aneurysm. Nonspecific prominent para-aortic and iliac chain lymph nodes measure up to approximately 8 mm. Small hiatal hernia. Mild wall thickening of the distal esophagus. There is no small bowel obstruction. Appendix is dilated and fluid-filled, 1.2 cm with a 6 mm appendicolith. There is trace air within the appendiceal lumen with moderate periappendiceal inflammatory stranding and trace adjacent free fluid. No drainable fluid collection. Diastases recti. Mild generalized body wall edema. Degenerative changes of the spine, pelvis and hips. IMPRESSION: 1. Findings compatible with acute uncomplicated appendicitis with appendicolith. No evidence of perforation or drainable fluid collection. 2. No bowel obstruction. 3. Urinary bladder calculi. 4. Evidence of chronic bladder outlet obstruction. 5. Cholecystectomy. 6. Additional findings as above. Electronically signed by: Dyllan Mortensen M.D. 05/22/2019 3:28 PM ECG Data Attestation: I personally reviewed and interpreted this ECG as follows: Indication: + abdominal pain Rate (beats per minute): 67 Rhythm: sinus rhythm ECG Intervals/blocks: + First degree AV block, + Left bundle branch block and + Normal QT ECG [place]: + Left axis deviation ECG ST segments: no ST elevation ECG Findings: + PVCs and + Other (premature supraventricular complexes) Blood Pressure Blood Pressure Findings: Elevated blood pressure Additional Comments: being evaluated by surgeon Discharge Plan Visit Data *Final* Discharge Date/Time: 05/22/19 19:25 Chief Complaint: Abdominal Pain Stated Complaint: BAD STOMACH PAIN ED Provider: William Paniagua Discharge Problem: Acute appendicitis, uncomplicated, Peritonitis Patient Disposition: Still a Patient Discharge Instructions Interventions: ED Discharge Assessment Last Done: 11/16/19 19:25 The scribe's documentation has been prepared under my direction and personally reviewed by me in its entirety. I confirm that the note above accurately reflects all work, treatment, procedures, and medical decision making performed by me.
[2019-05-22] MEDS ORDERED: FUROSEMIDE 10 MG/ML 10 ML VIAL IV ONE (20:42)
[2019-05-22] MEDS ORDERED: HYDROmorphone INJ 2 MG/ML SYR/VIAL ONE (21:12)
[2019-05-22] MEDS ORDERED: SODIUM CHLORIDE 0.9% INJ 10 ML VIAL ONE (21:14)
[2019-05-22] MEDS ORDERED: GLYCOPYRROLATE 0.2 MG/ML VIAL ONE (21:37)
[2019-05-22] MEDS ORDERED: ROCURONIUM BROMIDE 10 MG/ML 5 ML VIAL ONE (22:15)
--- NOTE | 2019-05-22 22:44 | Operative Report ---
Post Operative Report Pre & Post Diagnosis Operation Date: 05/22/19 19:00 Pre-Op Diagnosis: BAD STOMACH PAIN Post-Op Diagnosis: Acute perforated appendicitis vs mass I identified the patient and participated in the time-out.: Yes Procedure Operation Date: 05/22/19 19:00 Actual Procedures p Laparoscopic Appendectomy converted to open ileocecectomy- Doris Sanabria MD Surgeon Doris Sanabria MD Finished Cloth Checker none Estimated Blood Loss 20 Findings See Below Specimens perforated appendix vs mass right lower quadrant, pus throughout abdomen, friable bowel Description of Procedure see operative note I attest to the content of the Intraoperative Record and any orders documented therein. Any exceptions are noted below.
--- NOTE | 2019-05-22 22:53 | Anesthesiology Progress Note ---
Date of Service May 22, 2019 Anesthesia Post Procedure Vital Signs Vital Signs: Temp Pulse Pulse Resp BP BP Pulse Ox 05/22/19 19:01 86 22 96 05/22/19 19:00 88 23 143/81 H 95 05/22/19 18:31 80 17 96 05/22/19 18:30 77 22 139/65 96 05/22/19 18:01 78 18 96 05/22/19 18:00 79 19 147/73 H 96 05/22/19 17:31 75 20 96 05/22/19 17:30 73 22 141/67 H 97 05/22/19 17:01 71 39 H 96 05/22/19 17:00 76 20 129/63 96 05/22/19 16:31 82 22 95 05/22/19 16:30 80 19 126/70 95 05/22/19 16:01 82 19 96 05/22/19 16:00 81 29 H 156/71 H 97 05/22/19 15:39 86 30 H 167/83 H 88 L 05/22/19 15:38 83 29 H 05/22/19 14:31 67 29 H 98 05/22/19 14:30 70 30 H 133/75 98 05/22/19 14:24 64 17 138/71 98 05/22/19 14:16 66 29 H 134/69 89 L 05/22/19 14:01 68 22 134/69 93 05/22/19 14:00 75 21 95 05/22/19 13:56 69 20 05/22/19 13:32 37.7 C H 70 20 145/77 H 94 Pain Intensity Bilateral Lower Abdomen: Pain Intensity: 4 Transfer of Care Handoff Completed per policy Notes Mental Status: see notes below (Intubated and sedated) Patient Amnestic to Procedure: Yes Nausea / Vomiting: adequately controlled Pain: adequately controlled Airway Patency, RR, SpO2: see Notes below (Ventilated) BP & HR: stable & adequate Hydration State: stable & adequate Anesthetic Complications: no major complications apparent and Pt Satisfied with anesthetic care
[2019-05-22] MEDS ORDERED: PROPOFOL IV EMULSION 10 MG/ML 100 ML VIAL IV ONE (23:26)
[2019-05-22] MEDS ORDERED: MoRPHine SULFATE 2 MG/ML CARP IV PRN (23:28)
[2019-05-22] MEDS ORDERED: ONDANSETRON INJ 2 MG/ML 2 ML VIAL IV PRN (23:28)
[2019-05-22] MEDS ORDERED: PIPERACILL/TAZOBAC CONSULT ACTIVE PRN (23:28)
--- NOTE | 2019-05-22 23:31 | Critical Care Consultation ---
Date of Consultation May 22, 2019 Assessment & Plan (1) Admitted to intensive care unit: Reason Critically Ill: 79-year-old male status post open appendectomy with perioperative hypoxemia with concerns for pulmonary edema requiring close postoperative management. NEURO - * CAM ICU: Unable to assess currently secondary to level of sedation. * Sedation: Propofol drip * Pain: Fentanyl as needed * h/o Depression: * Hold home Rx at this time. * Restart when clinical picture improves. CARDIAC/VASCULAR - * h/o CAD, HTN, HLD, Non-occlusive CAD, Prolonged QT: * Hold on home Rx currently in the immediate postoperative setting. * Will restart as tolerated. * EKG: SR w/ 1' AV block @ 67bpm. PVCs. LBBB - unchanged. QTc 486ms. * Monitor on telemetry. RESPIRATORY - * Acute hypoxic respiratory failure: * Requiring supplemental O2 prior to procedure. * Remains intubated s/p extensive abdominal procedure. Likely able to extubate tomorrow pending status throughout the night. * Vent settings: 16/450/5/35% * Likely multifactorial including slight pulmonary edema, poor inspiratory effort w/ splinting, NAHEED, etc. * ABG for titration of ventilator settings. GI/NUTRITION - * Appendicitis w/ perforation and peritonitis: * Source control s/p appendectomy --> open ileocecectomy. * Concerns w/ purulent material throughout the abdominal cavity and friable bowel tissue. * Initially received IV Mefoxin preop --> agree w/ broadening to Zosyn w/ surgical findings. * Abdominal incision remains open per report. * Will defer to surgery for further intervention. * Prophylaxis: Famotidine RENAL/LYTES - * CKDIII. * Hypokalemia: * Will replace. * IVF: LR@100mL/hr - * h/o BPH: * Briceno in place - Strict I&Os. ENDO - * No h/o DM. * BSGs per unit protocol. ISS --> gtt per unit policy. * Hypothyroidism: * Hold on PO Levothyroxine for now until we see how he does throughout the night. * Consider starting IV at conversion ration of dose pending PO status s/p extubation. * Gout: * Monitor closely for s/s of gouty arthropathy flare. * Continue Allopurinol when PO status changes. HEME - * Stable H&H s/p surgical intervention. 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 * Unremarkable PET scan and bone marrow biopsies. * No current treatment at this time. ID - * Acute appendicitis w/ spillage into the abdominal cavity. * Agree with broadening abx to Zosyn w/ surgical findings. * Monitor closely for s/s of progression to sepsis syndrome. LINES/IV ACCESS - * PIVs x3 * Endurance catheter to the RIGHT forearm. * RIGHT Radial A-line. Not functioning upon arrival. Unable to salvage. Will d/c. * ET Tube * Briceno DVT PROPHYLAXIS - * Hold on chemoprophylaxis in the immediate postoperative patient. * SCDs I have personally spent 65 minutes of critical care time in the direct management of this patient. This is a life/limb threatening event. This includes time spent evaluating patient, direct bedside care, chart review, placing orders, interpretation of diagnostic studies, discussion with consultants, patient, and family members, as well as other required patient management activities. This time is exclusive of all separately billable procedures, and teaching time and separate from and in addition to any other critical care service time. Thank you for allowing us to participate in the care of this patient. Please refer to my attending physician's documentation for any further recommendations. (2) Acute appendicitis with generalized peritonitis: (3) Acute respiratory failure with hypoxia: (4) Diastolic heart failure: (5) GERD (gastroesophageal reflux disease): (6) Gout: (7) Hypertension: (8) History of paroxysmal supraventricular tachycardia: (9) LBBB (left bundle branch block): (10) Major depression: (11) Obstructive sleep apnea on CPAP: (12) CKD (chronic kidney disease), stage III: History of Present Illness Attending Physician: Doris Sanabria MD History of Present Illness Patient is a 79-year-old male with a significant past medical history of nonobstructive coronary artery disease, hypertension, hyperlipidemia, chronic left bundle branch block, paroxysmal supraventricular tachyarrhythmia, obstructive sleep apnea, CKD 3, and recent diagnosis of multiple myeloma who initially presented to the emergency department with complaints of intense lower abdominal pain. Patient was found to have acute appendicitis requiring emergent surgical intervention. Patient was taken to the OR suite and initially underwent laparoscopic approach, however there was moderate amounts of purulent material in the abdomen with concerns of perforation of the appendix. Patient was converted to an open procedure. Patient's intraoperative course was otherwise uneventful. There was noted concerns for pulmonary edema prior to surgical intervention. The patient remained intubated postoperatively and was subsequently transferred to the ICU for continued management. Allergies Allergy/AdvReac Type Severity Reaction Status Date / Time No Known Allergies Allergy Verified 05/22/19 14:03 Home Medications Home Medications Medication Instructions Recorded Confirmed Type allopurinol 300 mg PO QAM 04/30/18 05/22/19 History atorvastatin 5 mg PO HS 04/30/18 05/22/19 History cholecalciferol (vitamin D3) 2,000 unit PO QAM 04/30/18 05/22/19 History [Vitamin D3] citalopram [Celexa] 20 mg PO QAM 04/30/18 05/22/19 History hydralazine 50 mg PO TID 04/30/18 05/22/19 History magnesium oxide 400 mg PO BID 04/30/18 05/22/19 History omeprazole 40 mg PO HS 04/30/18 05/22/19 History terazosin 5 mg PO HS 04/30/18 05/22/19 History amlodipine 10 mg PO QAM 09/18/18 05/22/19 History carvedilol 3.125 mg PO BID 09/18/18 05/22/19 History lisinopril 20 mg PO QAM 09/18/18 05/22/19 History potassium chloride 20 meq PO QAM 09/18/18 05/22/19 History levothyroxine 112 mcg PO DAILY 05/22/19 05/22/19 History Patient History Medical History Acute respiratory failure with hypoxia (Acute) 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) Carpal tunnel syndrome (Chronic) CKD (chronic kidney disease), stage III (Chronic) Diastolic heart failure (Chronic) GERD (gastroesophageal reflux disease) (Chronic) Gout (Chronic) History of cardiac arrhythmia (Resolved) History of paroxysmal supraventricular tachycardia (Resolved) Hyperlipidemia Hypertension (Chronic) Insomnia (Chronic) LBBB (left bundle branch block) (Chronic) Morbid (severe) obesity due to excess calories Neuralgia ON SIDE OF FACE Nonobstructive atherosclerosis of coronary artery By 05/2010 catheterization Obstructive sleep apnea on CPAP (Chronic) Pneumonia (Acute) Pneumonia (Acute) Hospitalized Jun 2018 after failing OP treatment. SVT in setting of hypokalemia noted during that admission. Admitted again to [facility] 07/28-07/30/18 for pneumonia with hypoxia. No arrhythmia noted. Lungs CTA B/L on exam at [facility] 09/25. Prolonged QT interval (Chronic) Restless leg syndrome (Chronic) Surgical History H/O cataract removal with insertion of prosthetic lens H/O knee surgery H/O sinus surgery History of bilateral knee arthroplasty History of cataract surgery RT/LEFT History of colonoscopy History of esophagogastroduodenoscopy (EGD) History of hip surgery History of tooth extraction History of total right hip arthroplasty Hx of cholecystectomy Status post total hip replacement, left Family History Father Heart disease Mother Diabetes Hypertension Brother Family hx of colon cancer Social History Preferred Language: [place] Communication Ability: Impaired 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 GENERAL - 79-year-old male appearing his stated age who is in no acute distress. Intubated and sedated. SKIN - Postoperative incision site clean, dry, and intact. HEAD - NC/AT. EYES - PERRL with EOMI bilaterally. EARS - No deformities of external structures noted on gross examination bilaterally. NOSE - Midline and without cyanosis. MOUTH/OROPHARYNX - Without perioral cyanosis. ET Tube in place. NECK - Supple to palpation. LUNGS - Chest wall symmetric without accessory muscle use, intercostals retractions, or central cyanosis. Normal vesicular breath sounds CTA B/L. No wheezes, rales, or rhonchi appreciated. CARDIAC - RRR with S1/S2. No murmur, rubs, or gallops appreciated. ABDOMEN - Abdominal contour obese without pulsations or visible masses. Surgical incision site clean, dry, and intact. BS hypoactive all four quadrants. EXTREMITIES - No clubbing or peripheral cyanosis. No pretibial edema present. +3/5 radial and dorsalis pedis pulses palpated throughout. NEUROLOGIC - No focal neurological deficits. Unable to fully assess secondary to mental status. Results & Data Vital Signs (Past 12 Hours) Vital Signs Temp Pulse Pulse Resp BP BP Pulse Ox 05/22/19 22:55 95 H 14 110/51 L 95 05/22/19 22:46 38.2 C H 71 14 129/67 98 05/22/19 19:01 86 22 96 05/22/19 19:00 88 23 143/81 H 95 05/22/19 18:31 80 17 96 05/22/19 18:30 77 22 139/65 96 05/22/19 18:01 78 18 96 05/22/19 18:00 79 19 147/73 H 96 05/22/19 17:31 75 20 96 05/22/19 17:30 73 22 141/67 H 97 05/22/19 17:01 71 39 H 96 05/22/19 17:00 76 20 129/63 96 05/22/19 16:31 82 22 95 05/22/19 16:30 80 19 126/70 95 05/22/19 16:01 82 19 96 05/22/19 16:00 81 29 H 156/71 H 97 05/22/19 15:39 86 30 H 167/83 H 88 L 05/22/19 15:38 83 29 H 05/22/19 14:31 67 29 H 98 05/22/19 14:30 70 30 H 133/75 98 05/22/19 14:24 64 17 138/71 98 05/22/19 14:16 66 29 H 134/69 89 L 05/22/19 14:01 68 22 134/69 93 05/22/19 14:00 75 21 95 05/22/19 13:56 69 20 05/22/19 13:32 37.7 C H 70 20 145/77 H 94 Coding Level of Care Code Critical Care 1st 30-74 mins Diagnoses Admitted to intensive care unit Z78.9 Acute appendicitis with generalized peritonitis K35.20 Acute respiratory failure with hypoxia J96.01 Diastolic heart failure I50.30 GERD (gastroesophageal reflux disease) K21.9 Gout M10.9 Hypertension I10 History of paroxysmal supraventricular tachycardia Z86.79 LBBB (left bundle branch block) I44.7 Major depression F32.9 Obstructive sleep apnea on CPAP G47.33; Z99.89 CKD (chronic kidney disease), stage III N18.3 Time Spent (min) 65
[2019-05-22] MEDS ORDERED: MoRPHine SULFATE 4 MG/ML 1 ML CARP\\VIAL IV PRN (23:32)
[2019-05-22] MEDS ORDERED: METOPROLOL TARTRATE 1 MG/ML VIAL IV PRN (23:33)
[2019-05-22] MEDS ORDERED: ICU PROTOCOL FOR HYPERGLYCEMIA PRN (23:39)
[2019-05-23] MEDS ORDERED: PIPERACILLIN/TAZOBACTAM 4.5 GM in DEXTROSE 5% 100 ML IV SCH
[2019-05-23 00:33] LABS: Basophils # (auto) 0.01 K/uL (0-0.2); Basophils % (auto) 0.1 %; Hematocrit (blood only) 34.9 % (42-52); Hemoglobin 11.9 g/dL (14.0-18.0); Immature Granulocytes # (auto) 0.04 K/uL (0.00-0.02); Immature Granulocytes % (auto) 0.4 %; Lymphocytes # (auto) 0.73 K/uL (1.2-3.4); Lymphocytes % (auto) 7.7 %; Mean Corpuscular Hemoglobin 31.7 pg (25-34); Mean Corpuscular Hgb Conc 34.1 g/dL (32-36); Mean Corpuscular Volume 93.1 fL (80-100); Mean Platelet Volume 11.8 fL (7.4-10.4); Monocytes # (auto) 0.57 K/uL (0.11-0.59); Neutrophils # (auto) 8.13 K/uL (1.4-6.5); Neutrophils % (auto) 85.8 %; Platelet Count 114 K/uL (130-400); RDW Coefficient of Variation 14.5 % (11.5-14.5); RDW Standard Deviation 49.3 fL (36.4-46.3); Red Blood Count 3.75 M/uL (4.7-6.1); White Blood Count 9.48 K/uL (4.8-10.8)
[2019-05-23 00:50] LABS: BUN Creatinine Ratio 12.5 (10-20); Calcium 7.2 mg/dl (8.5-10.1); Creatinine Clr Calc Pharmacy 50.6 ml/min; Magnesium 1.6 mg/dl (1.8-2.4); Potassium 3.1 mmol/L (3.5-5.1)
[2019-05-23 00:55] LABS: Phosphorus 4.2 mg/dl (2.5-4.9)
[2019-05-23] MEDS: LACTATED RINGER'S 1,000 ML IV SCH ×3 (01:37→17:24)
--- NOTE | 2019-05-23 01:41 | Procedure Note ---
Procedure Note Date of Service May 23, 2019 Procedure: Food Service Supervisor Indwelling Peripherally Inserted IV Catheter Placement Attending: Dr. Lemus APC: Paco Maher PA-C Indication: Need for IV Access, Poor Vascular Access Anesthesia: None A time-out was completed verifying correct patient, procedure, site, positioning, and implant(s) or special equipment if applicable. Utilizing bedside ultrasound, vascularity of the RIGHT upper extremity was assessed. Vessel size was noted for appropriate catheter selection and skin was marked with gentle pressure. Patients RIGHT upper extremity was prepped and draped in the usual sterile fashion utilizing chlorhexidine. Ultrasound guidance was used to aid needle placement. A 22 g Endurance Catheter was introduced into the RIGHT forearm vein under direct ultrasound guidance. Guide wire was easily deployed without resistance. Catheter was threaded over the guide wire without resistance and the entire apparatus was removed intact. Good venous blood return was noted in the catheter. The IV catheter was easily flushed with sterile saline flush. Sterile clave was attached to the end of the catheter and good blood return was again noted. Tourniquet was released. StatLock device and sterile dressing were applied. The patient tolerated the procedure well. Blood Loss: Minimal Complications: None Procedural Ultrasound Guidance: Procedure Date: 05/23/2019 Indication: Poor Vascular Access Attending: Dr. Lemus APC: Paco Maher PA-C Artery/Veins Identified: YES Access confirmed in Vein with ultrasound: YES Complications: NONE Patient tolerated procedure: WELL Coding
--- NOTE | 2019-05-23 02:38 | History and Physical Report ---
DATE OF ADMISSION: 05/22/2019 CHIEF COMPLAINT: Appendicitis and peritonitis, status post appendectomy. HISTORY OF PRESENT ILLNESS: This is a 79-year-old male with past medical history significant for hyperlipidemia, hypothyroidism, gout, obstructive sleep apnea, diastolic heart failure, hypertension, obesity, GERD, BPH, generalized osteoarthritis, restless legs syndrome, monoclonal paraproteinemia, major depression, presented with severe abdominal pain, of one day duration and was taken to OR for appendicitis. In the OR, he was found to have acute perforated appendicitis versus mass. Initially started with laparoscopic appendectomy, converted to open ileocecectomy. There was pus throughout the abdomen and friable bowel. The patient was intubated and continued to be intubated and transferred to the ICU. He is hemodynamically stable currently. He is getting antibiotic Zosyn. Could not get any history of present as patient is intubated currently. As per the surgical notes and ER notes, the patient presented with bilateral lower abdominal pain starting yesterday. He has history of pancreatitis in the past. In the ER, CAT scan showed inflammation of the appendix and had a temp spike and and white count was okay and patient was taken to the OR and initially started with laparoscopic appendectomy and converted to open ileocecectomy. ALLERGIES: No known drug allergies. PAST MEDICAL HISTORY: As mentioned above. PAST SURGICAL HISTORY: Arthrocentesis, arthroplasty, total right knee replacement, total left knee replacement, colonoscopies, EGDs, exploration of maxillary sinus, lumbosacral epidural shot, cataract surgery bilateral, cholecystectomy, total knee revision, femur and tibia performed in 2010, bilateral hip replacements. MEDICATIONS: The patient is on Ativan 0.5 mg prior to PET scan, lisinopril 20 mg p.o. daily, levothyroxine 112 mcg daily, omeprazole 40 mg p.o. daily, Coreg 3.125 mg p.o. b.i.d., potassium chloride 20 mEq p.o. daily, allopurinol 300 mg p.o. daily, Lipitor 5 mg p.o. daily, Celexa 20 mg p.o. daily, hydralazine 50 mg p.o. t.i.d., Hytrin 5 mg p.o. at bedtime, amlodipine 10 mg p.o. daily, calcium carbonate 500 mg 2 tablets daily, magnesium oxide 400 mg p.o. b.i.d., vitamin D 2000 units p.o. daily, aspirin 81 mg p.o. daily. FAMILY HISTORY: Significant for brother had colon cancer at age of 70 and another brother had colon cancer. Brother has diabetes. Mother has diabetes. Father has [place]. Mother has hypertension. Brother has hypertension. SOCIAL HISTORY: . No smoking, no alcohol, no drugs. REVIEW OF SYSTEMS: Currently unobtainable as patient is intubated and sedated. GENERAL: The patient is intubated and sedated. VITAL SIGNS: Temperature T-max 38.2, pulse 95, respiratory rate 14, blood pressure 110/51, oxygen 95% on mechanical vent. HEENT: No pallor, no icterus. NECK: No JVD, no neck masses, no carotid bruits. CARDIOVASCULAR: S1, S2 heard. No murmurs. RESPIRATORY SYSTEM: Normal AP diameter. No accessory muscle use. No obvious wheezing or crackles. ABDOMEN: Status post open ileocecectomy. Dressing seen. No drainage seen. No absent bowel sounds. CENTRAL NERVOUS SYSTEM: Intubated and sedated. EXTREMITIES: Trace pedal edema seen. LABORATORY DATA: WBC 9.5, hemoglobin 12.9, hematocrit 38, platelets 132. Sodium 140, potassium 3.2, chloride 106, bicarbonate 28, BUN 19, creatinine 1.3, serum glucose 114, calcium 8.1, total bilirubin 1.7, AST 15, ALT 16, alkaline phosphatase 60, troponin I of 0.04, lipase 113. IMAGING DATA: CT of the abdomen and pelvis shows findings compatible with uncomplicated appendicitis with appendicolith. No evidence of perforation or drainable fluid collection. No bowel obstruction, no evidence of chronic bladder outlet obstruction, upper bladder calculi. Chest x-ray, cardiomegaly with mild pulmonary vascular congestion, mild bibasilar atelectasis, unchanged hemidiaphragmatic elevation. EKG: Sinus rhythm with first-degree AV block with PVCs with a rate of 67, left axis deviation, left bundle branch block. ASSESSMENT AND PLAN: This is a 79-year-old male who presents with abdominal pain of 1-day duration, found to have acute appendicitis on CAT scan. 1. Acute appendicitis, possible peritonitis, started with laparoscopic appendectomy which was converted to open ileocecectomy, found to have pus throughout abdomen and friable bowel. Questionable mass in right lower quadrant, currently intubated, on IV Zosyn. Will Follow up with the pathology. On IV LR@100 mL per hour. Vent management as per critical care. Continue monitoring in the ICU. 2. History of diastolic congestive heart failure, not on diuretics at home, on Coreg and lisinopril which are on hold. Monitor for any volume overload. 3. Hypertension, on lisinopril, Coreg, hydralazine, Hytrin, and amlodipine, which are on hold. Placed on IV Lopressor p.r.n. Monitor the blood pressure. 4. Gastroesophageal reflux disease, on Prilosec at home, we will place on IV Pepcid. 5. Gout, on allopurinol, which is on hold. Restart when able to. 6. Hyperlipidemia, on Lipitor 5 mg, which is on hold. Will restart when able to. 7. History of depression, on Celexa, which is on hold for now. 8. History of obstructive sleep apnea, currently intubated. 9. Recent diagnosis of monoclonal paraproteinemia. s/p Bone marrow biopsy. Recent PET scan unremarkable. Hematology/oncology currently observing. 10. Deep venous thrombosis prophylaxis, sequential compression devices for now. 11. Disposition, closely monitor in ICU. MTDD
[2019-05-23] MEDS: PROPOFOL 1,000 MG/100 ML VIAL IV PRN ×2 (03:13→06:46)
[2019-05-23] MEDS: PIPERACILLIN/TAZOBACTAM 4.5 GM in DEXTROSE 5% 100 ML IV SCH ×3 (06:03→22:50)
[2019-05-23] MEDS: POTASSIUM CHLORIDE / WTR 10 MEQ/100 ML PLCT IV SCH ×4 (06:04→10:11)
[2019-05-23 06:23] LABS: Albumin Level 2.6 gm/dl (3.4-5.0); BUN Creatinine Ratio 14.1 (10-20); Bilirubin Direct 0.6 mg/dl (0-0.2); Creatinine Clr Calc Pharmacy 50.6 ml/min; Est GFR (African American) 51.8; Est GFR (Non-African American) 44.7; Magnesium 1.6 mg/dl (1.8-2.4); Potassium 3.2 mmol/L (3.5-5.1)
[2019-05-23 06:29] LABS: Hematocrit (blood only) 33.5 % (42-52); Hemoglobin 11.3 g/dL (14.0-18.0); Mean Corpuscular Hemoglobin 31.8 pg (25-34); Mean Corpuscular Hgb Conc 33.7 g/dL (32-36); Mean Corpuscular Volume 94.4 fL (80-100); Mean Platelet Volume 12.1 fL (7.4-10.4); Platelet Count 100 K/uL (130-400); RDW Coefficient of Variation 14.7 % (11.5-14.5); RDW Standard Deviation 50.5 fL (36.4-46.3); Red Blood Count 3.55 M/uL (4.7-6.1); White Blood Count 8.02 K/uL (4.8-10.8)
[2019-05-23 06:30] LABS: Basophils # (auto) 0.01 K/uL (0-0.2); Basophils % (auto) 0.1 %; Dohle Bodies 1+; Echinocytes 1+; Immature Granulocytes # (auto) 0.02 K/uL (0.00-0.02); Immature Granulocytes % (auto) 0.2 %; Lymphocytes # (auto) 0.67 K/uL (1.2-3.4); Lymphocytes % (auto) 8.4 %; Monocytes # (auto) 0.63 K/uL (0.11-0.59); Monocytes % (auto) 7.9 %; Neutrophils # (auto) 6.69 K/uL (1.4-6.5); Neutrophils % (auto) 83.4 %; Ovalocytes 1+; Platelet Estimate Decreased (Normal)
[2019-05-23 06:34] LABS: Bilirubin,Total 1.3 mg/dl (0.2-1); Phosphorus 4.3 mg/dl (2.5-4.9); Total Protein 5.1 gm/dl (6.4-8.2); Troponin I 0.027 ng/ml (0-0.045)
[2019-05-23] MEDS ORDERED: ALBUMIN 25% 50 ML IV ONE (06:35)
[2019-05-23] MEDS ORDERED: LACTATED RINGER'S 500 ML IV ONE (06:35)
[2019-05-23] MEDS ORDERED: MAGNESIUM SULFATE / D5W 1 GM/100 ML BAG IV ONE (06:35)
--- NOTE | 2019-05-23 06:50 | XRay Report ---
XR chest 1V portable HISTORY: 79 years-old Male post tube acute respiratory distress COMPARISON: Chest radiograph 05/22/2019 TECHNIQUE: Portable supine AP view of the chest FINDINGS: Endotracheal tube terminates 3.8 cm superior to the heber. Moderate enlargement of the cardiac silho uette. Unchanged mediastinal widening with unchanged right hemidiaphragmatic elevation. No pneumothor ax, large pleural effusion or overt pulmonary edema. Perivascular congestion. Bibasilar opacities sug gest atelectasis. IMPRESSION: Endotracheal tube terminates 3.8 cm superior to the heber. The above report was generated using voice recognition software. It may contain grammatical, syntax o r spelling errors. Electronically signed by: Dyllan Mortensen M.D. 05/23/2019 6:48 AM
--- NOTE | 2019-05-23 07:31 | Hospitalist Progress Note ---
Date of Service May 23, 2019 Assessment & Plan (1) Acute appendicitis with generalized peritonitis: ASSESSMENT AND PLAN: This is a 79-year-old male who presents with abdominal pain of 1-day duration, found to have acute appendicitis on CAT scan. 1. Acute appendicitis, possible peritonitis, started with laparoscopic appendectomy which was converted to open ileocecectomy, found to have pus throughout abdomen and friable bowel. Questionable mass in right lower quadrant, currently intubated, on IV Zosyn. Will Follow up with the pathology. On IV LR@100 mL per hour. Vent management as per critical care. Continue monitoring in the ICU. 2. VDRF/History of diastolic congestive heart failure, not on diuretics at home, on Coreg and lisinopril which are on hold. Monitor for any volume overload. 3. Hypertension, on lisinopril, Coreg, hydralazine, Hytrin, and amlodipine, which are on hold. Placed on IV Lopressor p.r.n. Monitor the blood pressure. 4. Gastroesophageal reflux disease, on Prilosec at home, we will place on IV Pepcid. 5. Gout, on allopurinol, which is on hold. Restart when able to. 6. Hyperlipidemia, on Lipitor 5 mg, which is on hold. Will restart when able to. 7. History of depression, on Celexa, which is on hold for now. 8. History of obstructive sleep apnea, currently intubated. 9. Recent diagnosis of monoclonal paraproteinemia. s/p Bone marrow biopsy. Recent PET scan unremarkable. Hematology/oncology currently observing. 10. Deep venous thrombosis prophylaxis, sequential compression devices for now. 11. Disposition, On vent closely monitor in ICU. Labs Checked ROS-Offers no OS Physical Exam Gen-Vented NAD, febrile, Briceno in place, GT Head-Anicteric Sclera Neck-Supple, No JVD, No Thyromegaly, No Masses, No LAD, No Bruits Lungs-Clear to Auscultation Bilaterally, No Rales, No Rhonchi, No Wheezing, No Crepitus Chest-No S4, +S1, +S2, No S3, No Murmurs, No Rubs, No Gallops, No Ectopy Abdomen-Soft, Bowel Sounds hypo, Tender, Non Distended, Dressing in place, Abd still open, No Hepatomegaly, No Splenomegaly Musculoskeletal-NA Extremities-No Cyanosis, No Clubbing, No Edema, +SCDs Nuero Non Focal Psych-Sedated on Vent Results & Data Vital Signs (Past 12 Hours) Vital Signs Temp Pulse Pulse Resp BP BP BP 05/23/19 06:00 60 117/60 05/23/19 05:00 57 L 131/65 05/23/19 04:00 55 L 139/59 L 05/23/19 03:50 55 L 16 05/23/19 03:30 52 L 05/23/19 03:01 54 L 137/63 05/23/19 03:00 54 L 05/23/19 02:56 53 L 122/72 05/23/19 02:40 53 L 139/64 05/23/19 02:35 53 L 133/65 05/23/19 02:31 53 L 135/60 05/23/19 02:30 53 L 05/23/19 02:20 53 L 132/62 05/23/19 02:15 53 L 131/64 05/23/19 02:10 55 L 131/65 05/23/19 02:05 55 L 127/59 L 05/23/19 02:00 53 L 54 L 20 129/63 132/62 05/23/19 01:55 54 L 130/62 05/23/19 01:50 55 L 131/59 L 05/23/19 01:30 57 L 05/23/19 01:10 55 L 125/58 L 05/23/19 01:05 56 L 121/59 L 05/23/19 01:00 56 L 118/60 05/23/19 00:55 57 L 118/62 05/23/19 00:50 59 L 121/55 L 05/23/19 00:45 57 L 120/59 L 05/23/19 00:40 55 L 131/59 L 05/23/19 00:35 59 L 126/56 L 05/23/19 00:30 58 L 114/56 L 05/23/19 00:25 61 124/57 L 05/23/19 00:22 72 16 05/23/19 00:20 59 L 124/58 L 05/23/19 00:15 60 127/59 L 05/23/19 00:10 63 120/65 05/23/19 00:05 67 124/61 05/23/19 00:00 37.8 C H 61 20 127/59 L 122/37 L 05/22/19 23:55 72 16 05/22/19 23:18 37.8 C H 72 143/68 H 05/22/19 22:55 95 H 14 110/51 L 05/22/19 22:46 38.2 C H 71 14 129/67 Pulse Ox 05/23/19 06:00 96 05/23/19 05:00 96 05/23/19 04:00 96 05/23/19 03:50 96 05/23/19 03:30 96 05/23/19 03:01 96 05/23/19 03:00 05/23/19 02:56 96 05/23/19 02:40 96 05/23/19 02:35 96 05/23/19 02:31 97 05/23/19 02:30 05/23/19 02:20 96 05/23/19 02:15 96 05/23/19 02:10 96 05/23/19 02:05 96 05/23/19 02:00 96 05/23/19 01:55 96 05/23/19 01:50 96 05/23/19 01:30 95 05/23/19 01:10 95 05/23/19 01:05 95 05/23/19 01:00 95 05/23/19 00:55 96 05/23/19 00:50 94 05/23/19 00:45 95 05/23/19 00:40 95 05/23/19 00:35 94 05/23/19 00:30 94 05/23/19 00:25 94 05/23/19 00:22 94 05/23/19 00:20 93 05/23/19 00:15 93 05/23/19 00:10 92 05/23/19 00:05 92 05/23/19 00:00 99 05/22/19 23:55 92 05/22/19 23:18 93 05/22/19 22:55 95 05/22/19 22:46 98
--- NOTE | 2019-05-23 07:56 | Critical Care Progress Note ---
Date of Service May 23, 2019 Assessment & Plan (1) Admitted to intensive care unit: Reason Critically Ill: 79-year-old male status post open appendectomy with perioperative hypoxemia with concerns for pulmonary edema requiring close postoperative management. 24-hour events: Patient remains sedated and on mechanical ventilator due to having an open abdomen. He is off pressors and hemodynamic is stable. Urine output is improving with IV fluids. Cultures remain negative today. NEURO - CAM ICU: Unable to assess currently secondary to level of sedation. Sedation: Propofol drip Pain: Fentanyl drip and IV pushes as needed h/o Depression: Hold home Rx at this time. Restart when clinical picture improves. CARDIAC/VASCULAR - h/o CAD, HTN, HLD, Non-occlusive CAD, Prolonged QT. Last echocardiogram showed LVH with a small loculated anterior pericardial effusion Hold on home Rx currently in the immediate postoperative setting. Will restart as tolerated. EKG: SR w/ 1' AV block @ 67bpm. PVCs. LBBB - unchanged. QTc 486ms. Monitor on telemetry. Hemodynamic stable. Lactate not checked but will hold off given his hemodynamic stability RESPIRATORY - Acute hypoxic respiratory failure: Requiring supplemental O2 prior to procedure. Remains intubated s/p extensive abdominal procedure. Await surgical evaluation to see if the patient needs additional washout procedures performed today and to clarify status of whether or not his abdomen is open. If the abdomen is closed and there are no plans for immediate return to the OR, consideration for SBT and extubation would be appropriate Vent settings: 16/450/5/35% with ABG 7.3/40 5/90. Increased rate 18 and follow Likely multifactorial including slight pulmonary edema, poor inspiratory effort w/ splinting, NAHEED, etc. GI/NUTRITION - Appendicitis w/ perforation and peritonitis: Source control s/p appendectomy --> open ileocecectomy. Await cultures and path Concerns w/ purulent material throughout the abdominal cavity and friable bowel tissue. Day #2 Zosyn. Taper based on culture data and clinical response Abdominal incision remains open per report. Will defer to surgery for further intervention. Prophylaxis: Famotidine RENAL/LYTES - CKDIII. Creatinine slightly bumped today. Suspect prerenal. Continue to follow judicious volume resuscitation Hypokalemia: Will replace. IVF: LR@100mL/hr - h/o BPH: Briceno in place - Strict I&Os. ENDO - No h/o DM. BSGs per unit protocol. ISS --> gtt per unit policy. Hypothyroidism: Hold on PO Levothyroxine for now until we see how he does throughout the night. Consider starting IV at conversion ration of dose pending PO status s/p extubation. Gout: Monitor closely for s/s of gouty arthropathy flare. Continue Allopurinol when PO status changes. HEME - Stable H&H s/p surgical intervention. 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 Unremarkable PET scan and bone marrow biopsies. No current treatment at this time. ID - Day #2 Zosyn for peritonitis. Await cultures. If hemodynamic instability presents low threshold for checking lactate. LINES/IV ACCESS - PIVs x3 Endurance catheter to the RIGHT forearm. RIGHT Radial A-line. Not functioning upon arrival. Unable to salvage. Will d/c. ET Tube Briceno DVT PROPHYLAXIS - Hold on chemoprophylaxis in the immediate postoperative patient. SCDs Patient remains critically ill with significant possibility of clinical deterioration. Will follow closely in the ICU for now. Daughter was updated at the bedside. Discussed with ICU nurse at bedside. (2) Acute appendicitis with generalized peritonitis: (3) Acute respiratory failure with hypoxia: Review of Systems Review of Systems: Unobtainable due to endotracheal tube Physical Exam Constitutional: Intubated and sedated Eyes: PERRL, conjunctivae normal, anicteric sclerae ENMT: Nasogastric tube in place Neck: trachea midline, no thyromegaly Respiratory: Coarse breath sounds bilaterally. No wheezing. Cardiovascular: RRR, no murmur, no edema Gastrointestinal (Abdomen): Midline incision dressed. Clean dry and intact. Bowel sounds are diminished throughout. Skin: no rashes, warm and dry Neurologic: Intubated and sedated Results & Data Vital Signs (Past 12 Hours) Vital Signs Temp Pulse Pulse Resp BP BP BP 05/23/19 06:00 60 117/60 05/23/19 05:00 57 L 131/65 05/23/19 04:00 55 L 139/59 L 05/23/19 03:50 55 L 16 05/23/19 03:30 52 L 05/23/19 03:01 54 L 137/63 05/23/19 03:00 54 L 05/23/19 02:56 53 L 122/72 05/23/19 02:40 53 L 139/64 05/23/19 02:35 53 L 133/65 05/23/19 02:31 53 L 135/60 05/23/19 02:30 53 L 05/23/19 02:20 53 L 132/62 05/23/19 02:15 53 L 131/64 05/23/19 02:10 55 L 131/65 05/23/19 02:05 55 L 127/59 L 05/23/19 02:00 53 L 54 L 20 129/63 132/62 05/23/19 01:55 54 L 130/62 05/23/19 01:50 55 L 131/59 L 05/23/19 01:30 57 L 05/23/19 01:10 55 L 125/58 L 05/23/19 01:05 56 L 121/59 L 05/23/19 01:00 56 L 118/60 05/23/19 00:55 57 L 118/62 05/23/19 00:50 59 L 121/55 L 05/23/19 00:45 57 L 120/59 L 05/23/19 00:40 55 L 131/59 L 05/23/19 00:35 59 L 126/56 L 05/23/19 00:30 58 L 114/56 L 05/23/19 00:25 61 124/57 L 05/23/19 00:22 72 16 05/23/19 00:20 59 L 124/58 L 05/23/19 00:15 60 127/59 L 05/23/19 00:10 63 120/65 05/23/19 00:05 67 124/61 05/23/19 00:00 37.8 C H 61 20 127/59 L 122/37 L 05/22/19 23:55 72 16 05/22/19 23:18 37.8 C H 72 143/68 H 05/22/19 22:55 95 H 14 110/51 L 05/22/19 22:46 38.2 C H 71 14 129/67 Pulse Ox 05/23/19 06:00 96 05/23/19 05:00 96 05/23/19 04:00 96 05/23/19 03:50 96 05/23/19 03:30 96 05/23/19 03:01 96 05/23/19 03:00 05/23/19 02:56 96 05/23/19 02:40 96 05/23/19 02:35 96 05/23/19 02:31 97 05/23/19 02:30 05/23/19 02:20 96 05/23/19 02:15 96 05/23/19 02:10 96 05/23/19 02:05 96 05/23/19 02:00 96 05/23/19 01:55 96 05/23/19 01:50 96 05/23/19 01:30 95 05/23/19 01:10 95 05/23/19 01:05 95 05/23/19 01:00 95 05/23/19 00:55 96 05/23/19 00:50 94 05/23/19 00:45 95 05/23/19 00:40 95 05/23/19 00:35 94 05/23/19 00:30 94 05/23/19 00:25 94 05/23/19 00:22 94 05/23/19 00:20 93 05/23/19 00:15 93 05/23/19 00:10 92 05/23/19 00:05 92 05/23/19 00:00 99 05/22/19 23:55 92 05/22/19 23:18 93 05/22/19 22:55 95 05/22/19 22:46 98 Laboratory Results 05/23/19 05:50 05/23/19 05:50 Microbiology 05/22/19 20:30 Peritoneal Fluid Gram Stain - Final rare GPC's Diagnostic Findings Chest x-ray from today independently reviewed. Endotracheal tube appears to be in good position. Lung volumes are low with basilar atelectasis and vascular crowding. No focal airspace opacities identified Coding Level of Care Code 55364 Subseq Hosp Care Lvl 3 Diagnoses Admitted to intensive care unit Z78.9 Acute appendicitis with generalized peritonitis K35.20 Acute respiratory failure with hypoxia J96.01
[2019-05-23] MEDS ORDERED: CALCIUM GLUCONATE 10% 10 ML VIAL IV STA (07:59)
[2019-05-23] MEDS ORDERED: fentaNYL DRIP 1,250 MCG/250 ML BAG IV SCH (08:00)
[2019-05-23] MEDS ORDERED: CALCIUM GLUCONATE 10% 2,000 MG in SODIUM CHLORIDE 0.9% 50 ML IV ONE (08:30)
--- NOTE | 2019-05-23 09:50 | Operative Report ---
DATE OF OPERATION: 05/22/2019 PREOPERATIVE DIAGNOSIS: Acute appendicitis. POSTOPERATIVE DIAGNOSES: Perforated appendicitis versus perforated mass in cecum. OPERATIVE PROCEDURE: Laparoscopic appendectomy, converted to open ileocecectomy. SURGEON: Doris Sanabria MD. SCHOOL INSPECTOR: None. ANESTHESIA: General endotracheal anesthesia, ASA 4E. ESTIMATED BLOOD LOSS: 20 mL. IV FLUIDS: 1500 mL. SPECIMENS: Terminal ileum, cecum, appendix. INDICATIONS: Mr. Dolan is a 79-year-old man who presented with lower abdominal pain. His imaging was suggestive of acute appendicitis. He was counseled regarding laparoscopic appendectomy. He consented to proceed. DESCRIPTION OF PROCEDURE: The patient received Mefoxin preoperatively. After the induction of general endotracheal anesthesia, he underwent placement of sequential compression devices and a Briceon catheter. He had an arterial line placed given his comorbidities. His abdomen was sterilely prepped and draped. He was positioned with his left arm tucked. He was put into Trendelenburg. A supraumbilical incision was made and a Veress needle was placed into the peritoneal cavity on the first pass. This was tested with the saline drop test. Pneumoperitoneum was established with initial pressure of 2 mmHg being taken up to 15 mmHg. A 12 mm trocar was placed. Two additional trocars were placed under direct vision, a 5 in the left lower quadrant and a 5 in the midline pubic area. There was pus located in the pelvis. Initial inspection revealed significant pus and fibrinous exudate encompassing the entire right side of the abdomen and bilateral lower pelvic areas. There appeared to be a mass around the area of the appendix. The terminal ileum was kind of peeled away from this and necrotic type tissue with evidence of free flowing pus and perforation was noted. At this point, decision was made to convert, trocars were removed. A midline incision was made and carried down into the abdominal cavity. The cecum was then mobilized medially starting at the white line of Toldt. This was carried up to the proximal right colon and the terminal ileum attachments were mobilized. The cecum was divided with a firing of the IRMA 45 stapler. The terminal ileum was divided with a firing of the IRMA 45 stapler. The mesentery was taken both with the LigaSure and ties on larger vessels. The specimen was then sent off the field. The bowel was noted to lie up into the right upper quadrant easily. Initially stay sutures were placed from the small bowel to the right colon. Enterotomies were created and the staple line passed. In the course of doing so, the small bowel was noted to be somewhat friable and the staple had actually punctured about 2 inches more proximal. Thus, an additional 4 inches of small bowel was resected. The anastomosis was again reattempted, this time stay sutures were not used so that the bowel could lie more freely in the right upper quadrant. The IRMA 60 was fired creating a new enterotomy and the enterotomy defect itself was closed with a TA 60 stapler. The anastomotic line was noted to be bleeding. This was oversewn in portions with silk sutures. The mesenteric defect was closed with interrupted silk stitches. The abdomen was irrigated with multiple liters of saline. The omentum was placed over the right sided anastomosis, after it had been checked for leak by dunking it under saline. The NG was then checked into correct position. Again, the abdomen was irrigated and suctioned clear. After the counts were correct, the fascia was closed with a running #1 PDS suture. The skin was loosely closed with suhas and the inferior portion left open over gauze. He was taken intubated and to the intensive care unit, but was stable at the time of leaving the operating room. I attest to the content of the Intraoperative Record and any orders documented therein. Any exception s are noted below.
[2019-05-23] MEDS: LEVOTHYROXINE SODIUM 56 MCG in SYRINGE 0 ML IV SCH (10:22)
[2019-05-23] MEDS: FAMOTIDINE 20 MG in SYRINGE 3 ML IV SCH ×2 (10:22→20:23)
--- NOTE | 2019-05-23 12:58 | Surgery Progress Note ---
Date of Service May 23, 2019 Assessment & Plan (1) Acute appendicitis with generalized peritonitis: s/p open ileocectomy. Pus was throughout abdomen/ friable bowel. Would expect ileus and delayed return of bowel function. Keep npo/ ng tube today. Continue antibiotics. Culture was done on the peritoneal pus - await results. Present on Admission?: Yes (2) Acute respiratory failure with hypoxia: extubated. on bipap as per ICU team (3) CKD (chronic kidney disease), stage III: (4) Diastolic heart failure: Subjective Extubated earlier today. On bipap. No flatus/ bowel movement. Pain controlled. Physical Exam Respiratory: shallow breaths, on bipap machine Cardiovascular: Rate/Rhythm: regular rate and regular rhythm Gastrointestinal (Abdomen): Inspection/Auscultation: + abdomen distended (mild) Percussion/Palpation: abdomen soft quiet bowel tones, incision clean, packing changed at inferior aspect Psychiatric: Orientation: alert Results & Data Vital Signs (Past 12 Hours) Vital Signs Pulse Pulse Resp BP BP Pulse Ox 05/23/19 10:37 69 24 97 05/23/19 10:00 59 L 126/71 95 05/23/19 09:30 57 L 130/62 95 05/23/19 09:00 58 L 130/61 96 05/23/19 08:30 58 L 124/61 95 05/23/19 08:00 58 L 136/62 96 05/23/19 07:45 59 L 18 95 05/23/19 07:30 58 L 96 05/23/19 07:00 59 L 136/63 96 05/23/19 06:47 59 L 129/62 95 05/23/19 06:45 58 L 94 05/23/19 06:00 60 117/60 96 05/23/19 05:00 57 L 131/65 96 05/23/19 04:00 55 L 139/59 L 96 05/23/19 03:50 55 L 16 96 05/23/19 03:30 52 L 96 05/23/19 03:01 54 L 137/63 96 05/23/19 03:00 54 L 05/23/19 02:56 53 L 122/72 96 05/23/19 02:40 53 L 139/64 96 05/23/19 02:35 53 L 133/65 96 05/23/19 02:31 53 L 135/60 97 05/23/19 02:30 53 L 05/23/19 02:20 53 L 132/62 96 05/23/19 02:15 53 L 131/64 96 05/23/19 02:10 55 L 131/65 96 05/23/19 02:05 55 L 127/59 L 96 05/23/19 02:00 53 L 54 L 20 129/63 132/62 96 05/23/19 01:55 54 L 130/62 96 05/23/19 01:50 55 L 131/59 L 96 05/23/19 01:30 57 L 95 05/23/19 01:10 55 L 125/58 L 95 05/23/19 01:05 56 L 121/59 L 95 05/23/19 01:00 56 L 118/60 95 05/23/19 00:55 57 L 118/62 [address] normal BUn/Cr mildly elevated
[2019-05-23] MEDS: fentaNYL citrate 100 MCG/2 ML VIAL IV PRN ×2 (13:38→20:21)
[2019-05-23] MEDS ORDERED: METOPROLOL TARTRATE 1 MG/ML VIAL IV PRN (17:26)
[2019-05-23] MEDS: ACETAMINOPHEN 1,000 MG/100 ML VIAL IV PRN (18:33)
[2019-05-24] MEDS: LACTATED RINGER'S 1,000 ML IV SCH (02:29)
[2019-05-24 03:46] LABS: Hematocrit (blood only) 33.8 % (42-52); Hemoglobin 11.5 g/dL (14.0-18.0); Mean Corpuscular Hemoglobin 31.7 pg (25-34); Mean Corpuscular Volume 93.1 fL (80-100); RDW Coefficient of Variation 14.8 % (11.5-14.5); RDW Standard Deviation 50.8 fL (36.4-46.3); Red Blood Count 3.63 M/uL (4.7-6.1); White Blood Count 8.84 K/uL (4.8-10.8)
[2019-05-24 04:11] LABS: Albumin Level 2.6 gm/dl (3.4-5.0); BUN Creatinine Ratio 15.2 (10-20); Bilirubin Direct 0.4 mg/dl (0-0.2); Calcium 7.6 mg/dl (8.5-10.1); Creatinine Clr Calc Pharmacy 46.5 ml/min; Est GFR (African American) 46.8; Est GFR (Non-African American) 40.4; Magnesium 2.1 mg/dl (1.8-2.4); Potassium 3.6 mmol/L (3.5-5.1)
[2019-05-24 04:14] LABS: Bilirubin,Total 1.1 mg/dl (0.2-1); Phosphorus 3.5 mg/dl (2.5-4.9); Total Protein 5.5 gm/dl (6.4-8.2)
[2019-05-24 04:51] LABS: Basophils # (auto) 0.01 K/uL (0-0.2); Basophils % (auto) 0.1 %; Eosinophils # (auto) 0.07 K/uL (0-0.5); Eosinophils % (auto) 0.8 %; Immature Granulocytes # (auto) 0.02 K/uL (0.00-0.02); Immature Granulocytes % (auto) 0.2 %; Lymphocytes # (auto) 0.67 K/uL (1.2-3.4); Lymphocytes % (auto) 7.6 %; Mean Platelet Volume 11.7 fL (7.4-10.4); Monocytes # (auto) 0.75 K/uL (0.11-0.59); Monocytes % (auto) 8.5 %; Neutrophils # (auto) 7.32 K/uL (1.4-6.5); Neutrophils % (auto) 82.8 %; Platelet Count 87 K/uL (130-400); Platelet Estimate Decreased (Normal)
[2019-05-24] MEDS: PIPERACILLIN/TAZOBACTAM 4.5 GM in DEXTROSE 5% 100 ML IV SCH (06:21)
--- NOTE | 2019-05-24 06:28 | Hospitalist Progress Note ---
Date of Service May 24, 2019 Assessment & Plan (1) Acute appendicitis with generalized peritonitis: ASSESSMENT AND PLAN: This is a 79-year-old male who presents with abdominal pain of 1-day duration, found to have acute appendicitis on CAT scan. 1. Acute appendicitis/peritonitis, started with laparoscopic appendectomy which was converted to open ileocecectomy, found to have pus throughout abdomen and friable bowel. Mass in right lower quadrant, currently on BIPAP, on IV Zosyn. Will Follow up with the pathology. Continue monitoring in the ICU. 2. s/p VDRF on BIPAP now/History of diastolic congestive heart failure, not on diuretics at home, on Coreg and lisinopril which are on hold. Monitor for any volume overload. 3. Hypertension, on lisinopril, Coreg, hydralazine, Hytrin, and amlodipine, which are on hold. Placed on IV Lopressor p.r.n. Monitor the blood pressure. 4. Gastroesophageal reflux disease, on Prilosec at home, we will place on IV Pepcid. 5. Gout, on allopurinol, which is on hold. Restart when able to. 6. Hyperlipidemia, on Lipitor 5 mg, which is on hold. Will restart when able to. 7. History of depression, on Celexa, which is on hold for now. 8. History of obstructive sleep apnea, currently intubated. 9. Recent diagnosis of monoclonal paraproteinemia. s/p Bone marrow biopsy. Recent PET scan unremarkable. Hematology/oncology currently observing. 10. Deep venous thrombosis prophylaxis, sequential compression devices for now. 11. Disposition, Off vent closely monitor in ICU. Labs Checked, Diet per GS ROS-No Headache, No Visual Changes, No Nausea, No Vomiting, No Fever, No Chills, No Neck Pain or Stiffness, No Chest Pain, No Palpitations, No SOB, No FARAH, No Cough, No Sputum, No Wheezing, No Abdominal Pain, No Diarrhea, No Hematemesis, No Hemoptysis, No Unexpected Weight Loss, No Flank pain, No Melena, No Hematochezia, No Frequency, No Urgency, No Burning, No Hematuria, No Rashes, No Diaphoresis. Appetite is Normal Physical Exam Gen-AAO x 3, NAD, Afebrile, on BIPAP, Thirsty and hungry Head-NCAT, EOMI, PERRLA, Anicteric Sclera, No Posterior Pharyngeal Erythema Neck-Supple, No JVD, No Thyromegaly, No Masses, No LAD, No Bruits Lungs-Clear to Auscultation Bilaterally, No Rales, No Rhonchi, No Wheezing, No Crepitus Chest-No S4, +S1, +S2, No S3, No Murmurs, No Rubs, No Gallops, No Ectopy Abdomen-Soft, Bowel Sounds Present, Tender, Non Distended, No Hepatomegaly, No Splenomegaly, No Palpable Masses, No Rebound, No Rigidity, Open and dressed Musculoskeletal-Full Range of Motion Bilaterally, No CVAT Extremities-No Cyanosis, No Clubbing, No Edema Nuero-Cranial Nerves II-XII grossly intact, Motor WNL, DTRs WNL, Strength WNL, Non Focal Psych-Normal Mood Results & Data Vital Signs (Past 12 Hours) Vital Signs Pulse Resp BP Pulse Ox 05/24/19 05:00 68 23 161/111 H 100 05/24/19 04:30 70 17 151/81 H 100 05/24/19 04:00 67 18 149/87 H 99 05/24/19 03:30 66 19 148/80 H 100 05/24/19 03:00 62 17 154/75 H 100 05/24/19 02:30 62 17 149/73 H 99 05/24/19 02:00 64 17 149/70 H 99 05/24/19 01:30 67 19 148/78 H 99 05/24/19 01:00 67 19 149/78 H 99 05/24/19 00:30 63 16 149/82 H 99 05/24/19 00:00 75 19 154/84 H 99 05/23/19 23:30 66 18 139/73 99 05/23/19 23:00 67 17 158/73 H 100 05/23/19 22:30 65 17 142/69 H 97 05/23/19 22:00 67 20 142/76 H 97 05/23/19 21:30 65 19 143/67 H 97 05/23/19 21:19 66 25 H 96 05/23/19 21:00 71 20 145/82 H 97 05/23/19 20:30 70 29 H 139/68 96 05/23/19 20:00 71 30 H 142/74 H 95 05/23/19 19:30 69 14 149/75 H 95 05/23/19 19:00 69 23 170/77 H 96
--- NOTE | 2019-05-24 06:53 | XRay Report ---
XR chest 1V portable CLINICAL HISTORY: f/u dyspnea COMPARISON STUDY: 05/23/2019 FINDINGS: Interval extubation. Mild stable primary megaly. Chronic elevation right hemidiaphragm. Lungs otherwise appear clear. Platelike atelectasis right base. IMPRESSION: Interval extubation. Minimal atelectasis right base. The above report was generated using voice recognition software. It may contain grammatical, syntax or spelling errors. Electronically signed by: Amadeo Manzo M.D. 05/24/2019 6:52 AM
[2019-05-24] MEDS: FAMOTIDINE 20 MG in SYRINGE 3 ML IV SCH ×2 (08:11→21:29)
[2019-05-24] MEDS: fentaNYL citrate 100 MCG/2 ML VIAL IV PRN ×2 (08:20→16:22)
[2019-05-24] MEDS: LEVOTHYROXINE SODIUM 56 MCG in SYRINGE 0 ML IV SCH (08:29)
[2019-05-24 10:25] LABS: iSTAT Arterial Blood Gas HCO3 25 meg/L (19-24); iSTAT Arterial Blood Gas pCO2 43 mmHg (35-46); iSTAT Arterial Blood Gas pH 7.37 (7.35-7.45); iSTAT Arterial Blood Gas pO2 67 mmHg (80-95); iSTAT Carbon Dioxide 27 mEq/l (24-31); iSTAT FiO2 30 %; iSTAT Site Art Line
[2019-05-24 10:25] LABS: iSTAT Allen Test Pass; iSTAT Arterial Blood Gas HCO3 26 meg/L (19-24); iSTAT Arterial Blood Gas pCO2 46 mmHg (35-46); iSTAT Arterial Blood Gas pH 7.36 (7.35-7.45); iSTAT Arterial Blood Gas pO2 75 mmHg (80-95); iSTAT Carbon Dioxide 27 mEq/l (24-31); iSTAT FiO2 40 %; iSTAT Site R Radial
[2019-05-24] MEDS: NORMOSOL-R 1,000 ML IV SCH (11:28)
--- NOTE | 2019-05-24 11:48 | Surgery Progress Note ---
Date of Service pt is stable, pt has no significant abdominal pain, no nausea, no vomiting, not pass flatus yet. May 24, 2019 Assessment & Plan (1) Acute appendicitis with generalized peritonitis: s/p open ileocectomy. Pus was throughout abdomen/ friable bowel. Would expect ileus and delayed return of bowel function. Keep npo/ ng tube today. Continue antibiotics. Culture was done on the peritoneal pus - await results. 05/24/2019, 11:55am, Dr. Healy doing better, waiting pass gas. OOB peritoneal fluid culture- E.Coli, Klebsiella pneumoniae, G- Bacilli consult ID, add on flagyl, continue treatment, will F/U , (2) Acute respiratory failure with hypoxia: extubated. on bipap as per ICU team (3) CKD (chronic kidney disease), stage III: (4) Diastolic heart failure: Review of Systems Respiratory: + problem reported has sleep apnea for which he uses cpap Cardiovascular: Additional Comments: history of chf but well compensated now Gastrointestinal: as per Subjective / HPI Physical Exam Constitutional: WD/WN, vitals as above well developed and well nourished Neck: trachea midline, no thyromegaly Respiratory: normal respiratory effort, lungs clear to auscultation normal respiratory effort Cardiovascular: RRR, no murmur, no edema Rate/Rhythm: regular rate and regular rhythm Gastrointestinal (Abdomen): Percussion/Palpation: abdomen soft no distend, mild tenderness at incision site, BS - Musculoskeletal: no cyanosis or clubbing, extremities motor strength 5/5 Skin: no rashes, warm and dry Neurologic: patellar DTR's 2+ bilat, sensation intact Psychiatric: Orientation: alert and oriented x 3 Results & Data Vital Signs (Past 12 Hours) Vital Signs Temp Pulse Resp BP Pulse Ox 05/24/19 09:30 65 19 150/78 H 96 05/24/19 09:00 65 13 158/77 H 97 05/24/19 08:30 69 15 156/88 H 97 05/24/19 08:00 37.8 C H 66 4 L 168/82 H 98 05/24/19 07:30 65 7 L 165/74 H 98 05/24/19 07:00 69 13 162/77 H 98 05/24/19 05:00 68 23 161/111 H 100 05/24/19 04:30 70 17 151/81 H 100 05/24/19 04:00 67 18 149/87 H 99 05/24/19 03:30 66 19 148/80 H 100 05/24/19 03:00 62 17 154/75 H 100 05/24/19 02:30 62 17 149/73 H 99 05/24/19 02:00 64 17 149/70 H 99 05/24/19 01:30 67 19 148/78 H 99 05/24/19 01:00 67 19 149/78 H 99 05/24/19 00:30 63 16 149/82 H 99 05/24/19 00:00 75 19 154/84 H 99 Laboratory Results Abnormal lab results 05/23/19 05/23/19 05/23/19 Range/Units 00:07 07:34 12:33 RBC (4.7-6.1) M/uL Hgb (14.0-18.0) g/dL Hct (42-52) % RDW Std Deviation (36.4-46.3) fL RDW Coeff of [place] (11.5-14.5) % Plt Count (130-400) K/uL MPV (7.4-10.4) fL Neut # (Auto) (1.4-6.5) K/uL Lymph # (Auto) (1.2-3.4) K/uL [place] # (Auto) (0.11-0.59) K/uL Platelet Estimate (Normal) POC pO2 67 L 75 L (80-95) mmHg POC HCO3 25 H 26 H (19-24) zac/L BUN (7-18) mg/dl Creatinine (0.6-1.4) mg/dl Glucose (70-99) mg/dl POC Glucose 125 H (70-99) Calcium (8.5-10.1) mg/dl Total Bilirubin (0.2-1) mg/dl Direct Bilirubin (0-0.2) mg/dl Total Protein (6.4-8.2) gm/dl Albumin (3.4-5.0) gm/dl 05/24/19 05/24/19 Range/Units 03:35 03:35 RBC 3.63 L (4.7-6.1) M/uL Hgb 11.5 L (14.0-18.0) g/dL Hct 33.8 L (42-52) % RDW Std Deviation 50.8 H (36.4-46.3) fL RDW Coeff of [place] 14.8 H (11.5-14.5) % Plt Count 87 L (130-400) K/uL MPV 11.7 H (7.4-10.4) fL Neut # (Auto) 7.32 H (1.4-6.5) K/uL Lymph # (Auto) 0.67 L (1.2-3.4) K/uL [place] # (Auto) 0.75 H (0.11-0.59) K/uL Platelet Estimate Decreased L (Normal) POC pO2 (80-95) mmHg POC HCO3 (19-24) zac/L BUN 24 H (7-18) mg/dl Creatinine 1.60 H (0.6-1.4) mg/dl Glucose 102 H (70-99) mg/dl POC Glucose (70-99) Calcium 7.6 L (8.5-10.1) mg/dl Total Bilirubin 1.1 H (0.2-1) mg/dl Direct Bilirubin 0.4 H (0-0.2) mg/dl Total Protein 5.5 L (6.4-8.2) gm/dl Albumin 2.6 L (3.4-5.0) gm/dl
[2019-05-24] MEDS: HydrALAZINE HCL 20 MG/ML VIAL IV PRN ×2 (12:22→18:19)
[2019-05-24] MEDS: metroNIDAZOLE 500 MG/100 ML BAG IV SCH ×2 (12:54→19:28)
[2019-05-24] MEDS: HEPARIN SOD 5,000 UNIT/0.5 ML VIAL SQ SCH ×2 (13:45→21:30)
--- NOTE | 2019-05-24 13:58 | Infectious Disease Consult ---
Date of Consultation May 24, 2019 Assessment & Plan (1) Acute appendicitis with generalized peritonitis: Patient with perforated appendix, questionable cecal mass with subsequent diffuse peritonitis with cultures growing E. coli, Klebsiella,. Gram-negative bacilli. Pending final culture results, current combination of ceftriaxone and metronidazole should provide adequate coverage. Likely will need in the range of 5-7 more days of IV antibiotics depending on clinical response. Will follow. (2) Escherichia coli infection: (3) Klebsiella infection: History of Present Illness Reason for Consultation: Status post ileocecectomy Attending Physician: Doris Sanabria MD History of Present Illness 79-year-old male with history of hypertension, hyperlipidemia, coronary artery disease, stage III chronic kidney disease, obstructive sleep apnea, recently diagnosed with multiple myeloma, and intermittent bouts of abdominal pain over the past several years consistent with pancreatitis. He was admitted to the hospital 05/23 with several days of progressively worsening lower quadrant abdominal pain. He was found to have evidence of acute appendicitis, and initially underwent laparoscopic surgery but converted to open appendectomy after finding evidence of perforation with generalized peritonitis. He deve loped hypoxemia postoperatively requiring intubation, but now successfully extubated with stable respiratory status. Operative cultures have grown E. coli, Klebsiella, and third gram-negative bacilli. Currently being treated with ceftriaxone and metronidazole. Did reasonably comfortable, expected postoperative abdominal pain. Currently afebrile and hemodynamically stable. Allergies Allergy/AdvReac Type Severity Reaction Status Date / Time No Known Allergies Allergy Verified 05/22/19 14:03 Home Medications Home Medications Medication Instructions Recorded Confirmed Type allopurinol 300 mg PO QAM 04/30/18 05/22/19 History atorvastatin 5 mg PO HS 04/30/18 05/22/19 History cholecalciferol (vitamin D3) 2,000 unit PO QAM 04/30/18 05/22/19 History [Vitamin D3] citalopram [Celexa] 20 mg PO QAM 04/30/18 05/22/19 History hydralazine 50 mg PO TID 04/30/18 05/22/19 History magnesium oxide 400 mg PO BID 04/30/18 05/22/19 History omeprazole 40 mg PO HS 04/30/18 05/22/19 History terazosin 5 mg PO HS 04/30/18 05/22/19 History amlodipine 10 mg PO QAM 09/18/18 05/22/19 History carvedilol 3.125 mg PO BID 09/18/18 05/22/19 History lisinopril 20 mg PO QAM 09/18/18 05/22/19 History potassium chloride 20 meq PO QAM 09/18/18 05/22/19 History levothyroxine 112 mcg PO DAILY 05/22/19 05/22/19 History Patient History Medical History Acute respiratory failure with hypoxia (Acute) 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) Carpal tunnel syndrome (Chronic) CKD (chronic kidney disease), stage III (Chronic) Diastolic heart failure (Chronic) GERD (gastroesophageal reflux disease) (Chronic) Gout (Chronic) History of cardiac arrhythmia (Resolved) History of paroxysmal supraventricular tachycardia (Resolved) Hyperlipidemia Hypertension (Chronic) Insomnia (Chronic) LBBB (left bundle branch block) (Chronic) Morbid (severe) obesity due to excess calories 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 SVT in setting of hypokalemia noted during that admission. Admitted again to [facility] 07/28-07/30/18 for pneumonia with hypoxia. No arrhythmia noted. Lungs CTA B/L on exam at PAT 09/25. Prolonged QT interval (Chronic) Restless leg syndrome (Chronic) Surgical History H/O cataract removal with insertion of prosthetic lens H/O knee surgery H/O sinus surgery History of bilateral knee arthroplasty History of cataract surgery RT/LEFT History of colonoscopy History of esophagogastroduodenoscopy (EGD) History of hip surgery History of tooth extraction History of total right hip arthroplasty Hx of cholecystectomy Status post total hip replacement, left Family History Father Heart disease Mother Diabetes Hypertension Brother Family hx of colon cancer Social History Preferred Language: Maltese Communication Ability: Effective Line Up Worker Required: No Beliefs That Will Affect Care: None marital status: Current Living Situation: Spouse Other Information That Helps Us Care for You: No Feels Safe at Home: Yes Safety Concerns: Feels Safe At This Time Smoking Status: Never smoker Do You Dip or Chew Tobacco: No ; Second Hand Exposure: No ; Tobacco Cessation Education Requested by Patient: No Hx Alcohol Use: No Hx Substance Use: No Review of Systems Review of Systems: All systems reviewed & are unremarkable except as noted in HPI & below Physical Exam Constitutional: WD/WN, vitals as above comfortable; no acute distress Eyes: PERRL, conjunctivae normal, anicteric sclerae ENMT: external ear and nose normal, oropharynx normal Neck: trachea midline, no thyromegaly neck nontender Respiratory: normal respiratory effort, lungs clear to auscultation no labored breathing and does not use accessory muscles Cardiovascular: Rate/Rhythm: regular rate and regular rhythm Heart Sounds: normal S1 and normal S2; no gallop, no murmur and no cardiac rub Vessels: normal peripheral pulses; no JVD Gastrointestinal (Abdomen): Inspection/Auscultation: + abdomen distended and + abdominal surgical incision (There is intact); + abnormal bowel sounds (No bowel sounds present) Percussion/Palpation: + abdomen tender (Mild diffuse without rebound or guarding); no hepatosplenomegaly Musculoskeletal: no cyanosis or clubbing, extremities motor strength 5/5 Spine: thoracic spine normal to inspection and lumbar spine normal to inspe ction; no cervical spinal tenderness Skin: no rashes, warm and dry normal turgor and + wound (Wound dressing intact) Neurologic: patellar DTR's 2+ bilat, sensation intact no focal motor deficits Psychiatric: A+Ox3, euthymic affect Orientation: cooperative Lymphatic: no cervical or axillary lymphadenopathy no inguinal lymphadenopathy Results & Data Vital Signs (Past 12 Hours) Vital Signs Temp Pulse Resp BP Pulse Ox 05/24/19 09:30 65 19 150/78 H 96 05/24/19 09:00 65 13 158/77 H 97 05/24/19 08:30 69 15 156/88 H 97 05/24/19 08:00 37.8 C H 66 4 L 168/82 H 98 05/24/19 07:30 65 7 L 165/74 H 98 05/24/19 07:00 69 13 162/77 H 98 05/24/19 05:00 68 23 161/111 H 100 05/24/19 04:30 70 17 151/81 H 100 05/24/19 04:00 67 18 149/87 H 99 05/24/19 03:30 66 19 148/80 H 100 05/24/19 03:00 62 17 154/75 H 100 05/24/19 02:30 62 17 149/73 H 99 05/24/19 02:00 64 17 149/70 H 99 Laboratory Results Short CBC 05/24/19 Range/Units 03:35 WBC 8.84 (4.8-10.8) K/uL Hgb 11.5 L (14.0-18.0) g/dL Hct 33.8 L (42-52) % Plt Count 87 L (130-400) K/uL BMP 05/24/19 03:35 Sodium 142 Potassium 3.6 Chloride 107 Carbon Dioxide 28 BUN 24 H Creatinine 1.60 H Glucose 102 H Calcium 7.6 L Liver Function 05/24/19 Range/Units 03:35 Total Bilirubin 1.1 H (0.2-1) mg/dl Direct Bilirubin 0.4 H (0-0.2) mg/dl AST 32 (15-37) U/L ALT 20 (12-78) U/L Alkaline Phosphatase 50 (45-117) U/L Albumin 2.6 L (3.4-5.0) gm/dl Diagnostic Findings Spec: [id number] Collected: 05/22/19 Received: 05/22/[address]: Doris Sanabria MD Source: Peritoneal Fluid OV Order: Ordered: Aer/Daniela Cult/Sm Procedure Result Verified Site Gram Stain Final 05/23/19 Gram Stain Result Many Polys Rare Gram Positive Cocci No Epithelial Cells Aero/Daniela Cult Preliminary 05/24/19 Organism 1 Escherichia coli Quantity Few Sens Sensitivities to Follow Organism 2 Klebsiella pneumoniae Quantity Few Sens Sensitivities to Follow Organism 3 Gram negative bacilli Quantity Few Sens Sensitivities to Follow E coli Kleb pneum RX M.I.C. RX M.I.C. --- --------- --- --------- Amikacin S <=16 S <=16 Ampicillin S <=8 Amp/Sul S <=8/4 S <=8/4 Cefazolin S <=8 I 16 Cefepime S <=4 S <=4 Cefotaxime S <=2 S <=2 Cefoxitin S <=8 S <=8 Ceftriaxone S <=1 S <=1 Cefuroxime S <=4 S 8 Ciprofloxacin S <=1 S <=1 Ertapenem S <=1 S <=1 Gentamicin S <=4 S <=4 Imipenem S <=1 S <=1 Levofloxacin S <=2 S <=2 Tobramycin S <=4 S <=4 Trimeth/Sulfa S <=2/38 S <=2/38 Pip/Tazo S <=16 S <=16 S = SENSITIVE I = INTERMEDIATE R = RESISTANT Name: LLOYD CURTIS : 1940 PAGE 1 Printed: 05/24/19 [id number] END OF REPORT ABDOMEN AND PELVIS CT WITHOUT CONTRAST CT DOSE: 1616.90 mGy.cm HISTORY: Acute generalized abdominal pain with fever diffuse abd pain, fever TECHNIQUE: Multiaxial CT images of the abdomen and pelvis were performed without contrast. A dose lowering technique was utilized adhering to the principles of ALARA. COMPARISON STUDY: CT abdomen and pelvis 02/14/2019 FINDINGS: Mild right hemidiaphragmatic elevation with subsegmental bibasilar opacities suggestive of atelectasis. There is no pneumatosis or pneumoperitoneum. Imaged inferior cardiac chambers are mildly enlarged. Coronary arterial calcifications are noted. Trace pericardial effusion. Cholecystectomy. Limited evaluation of the solid abdominal organs without the use of IV contrast. Unenhanced liver is unremarkable. Unchanged 1.2 cm hypodense lesion of the spleen, image 25 series 2. Mild generalized pancreatic atrophy. No biliary ductal dilation. Adrenal glands are unremarkable. Mild nonspecific bilateral perinephric stranding. Hyperdense 1.4 cm lesion of the superior pole left kidney suggests a probable proteinaceous or hemorrhagic cyst. No renal or ureteral calculi or obstructive uropathy. Limited evaluation of the urinary bladder secondary to streak artifact from bilateral hip arthroplasties. Calcifications of the dependent urinary bladder measure up to 1.2 cm. Mild urinary bladder wall thickening with partial distention. Perivesicular stranding is noted with a small left lateral urinary bladder diverticulum. Calcified tima que of the abdominal aorta without aneurysm. Nonspecific prominent para-aortic and iliac chain lymph nodes measure up to approximately 8 mm. Small hiatal hernia. Mild wall thickening of the distal esophagus. There is no small bowel obstruction. Appendix is dilated and fluid-filled, 1.2 cm with a 6 mm appendicolith. There is trace air within the appendiceal lumen with moderate periappendiceal inflammatory stranding and trace adjacent free fluid. No drainable fluid collection. Diastases recti. Mild generalized body wall edema. Degenerative changes of the spine, pelvis and hips. IMPRESSION: 1. Findings compatible with acute uncomplicated appendicitis with appendicolith. No evidence of perforation or drainable fluid collection. 2. No bowel obstruction. 3. Urinary bladder calculi. 4. Evidence of chronic bladder outlet obstruction. 5. Cholecystectomy. 6. Additional findings as above. Electronically signed by: Dyllan Mortensen M.D. 05/22/2019 3:28 PM PG Care Time/CCT Total # of Minutes Spent Total Time Spent with Patient: Total time spent is greater than 50% in coordination of care (as documented) at patient's floor/unit and/or counseling patient:
[2019-05-24] MEDS ORDERED: cefTRIAXone SODIUM 2,000 MG in DEXTROSE 5% 50 ML IV SCH (14:00)
--- NOTE | 2019-05-24 16:20 | Critical Care Progress Note ---
Date of Service May 24, 2019 Assessment & Plan (1) Acute appendicitis with generalized peritonitis: 79-year-old male was admitted on May 23, 2019 for a perforated appy now s/p open appendectomy and perioperative hypoxemia. Admitted to ICU post-op. E LEARNING SPECIALIST: CAM-ICU negative. Minimal fentanyl and IV Tylenol use. PMH Depression, holding home celexa while NPO. Pulm: Acute hypoxic respiratory failure likely secondary to pulm edema, poor inspiratory effort, PMH NAHEED (uses CPAP at home). Intubated post-surgery, 17Nov extubated, and presently on oxymask. CVS: PMH HTN, HLD, non-occlusive CAD, prolonged QTc (501), pSVT, LBBB, diastolic CHF. January 2019 TTE noted EF 55-59%, small anterior loculated pericardial effusion, moderate concentric LVH. Holding home Lisinopril, coreg, hydralazine, hytrin, amlodipine, atorvastatin (all while NPO). On IV Lopressor prn. ID: Afebrile. WBC 8. 17Nov Zosyn stopped, presently on Levaquin + ceftriaxone + flagyl. 16Nov peritoneal fluid cultures positive for E coli + Klebsiella + G(-) bacilli. 16Nov UCx no growth. ID consulted, noted ceftriaxone and flagyl x 5-7 more days (i.e. stop around 24Nov). Endo: No known DM. BSGs per unit protocol. On ISS. PMH hypothyroidism, holding home levothyroxine. PMH gout, no present evidence of flair, will likely add back allopurinol when taking PO. Renal/Lytes: - PMH CKD stage III, baseline Cr perhaps 1.2. Some acute rise to Cr 1.6, suspect pre-renal. Is on normosol. - Hypokalemia: Lowest K 3.1, replaced/resolved. Home KCl held while NPO. - Hypocalcemia: Lowest Ca 7.0. - PMH BPH and admit CT a/p suggestive of chronic bladder outlet obstruction. Held home terazosin. Briceno cath in place. GI: Presently NPO except ice chips. Presented with perforated appy and peritonitis. 16Nov s/p lap appy converted to open ileocecectomy (POD#2). Presently open abdomen. See surgery notes. Has NGT for ileus, presently clamped. On IV famotidine for GI prophy (and PMH GERD at home on Prilosec). PSH cholecystectomy. Heme: Lowest Hb 11.3 post-op. Thrombocytopenia with lowest platelets 87. PMH recent diagnosis of multiple myeloma (monoclonal paraproteinemia) per daughter, with unremarkable PET scan and bone marrow biopsies, and no active treatment for this. DVT prophy: On heparin and SCDs. Skin: No acute issues. Lines: PIVs x3. 17Nov endurance catheter to the RIGHT forearm. ET Tube. Briceno catheter. Code status: Full code. PT/OT: See notes. Disposition: Admitted to ICU. Critically ill. 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 Cormier was resident physician during care of patient. I separately evaluated patient for miller portions of the history and the exam. I was present during the critical portion of medical decision making, and I discussed the case with the resident. I generally agree with the findings and plan. Patient continuing to improve. Changed antibiotics based on initial sensitivities. Of note patient remains febrile. Clamp NG today, encourage ambulation, PT OT consult out of bed to chair and frequent spirometry. Adding chemical prophylaxis, H&H stable, incision bandages clean without shadowing. Holding p.o. medications giving medications IV at this point. Patient remains critically ill after her diffuse peritonitis secondary to fermín endicitis rupture and concern for sepsis, met SIRS criteria with respiratory rate greater than 20 and temperature greater than 38 on May 22, the obvious source was the peritonitis. I have personally spent 40 minutes of critical care time in the direct management of this patient. This is a life/limb threatening event. This includes time spent evaluating patient, direct bedside care, chart review, placing orders, interpretation of diagnostic studies, discussion with consultants, patient, and/or family members regarding treatment decisions, as well as other required patient management activities. This time is exclusive of all separately billable procedures, and teaching time and separate from and in addition to any other critical care service time. Subjective Met with the patient and family at bedside this afternoon. Presently says that he is overall okay but still has some abdominal discomfort. No noted flatus. Denies pain elsewhere or any other acute concerns. Family would like to know if he can have ice chips. Review of Systems Review of Systems: Per HPI as above. Physical Exam Physical Exam: General Appearance: Awake, alert & oriented, comfortable in general, NAD. CV: +S1S2 RRR, no murmur. Pulm: Clear to auscultation throughout. Abdomen: No appreciable bowel sounds. Soft, appropriately tender to palpation. Midline surgical incision has overlying c/d/i dressing. Extremities: Trace bilateral LE edema. No calf tenderness. Moving all extremities naturally and easily. Neuro: No gross neuro deficits. Results & Data Vital Signs (Past 12 Hours) Vital Signs Temp Pulse Resp BP Pulse Ox 05/24/19 14:00 80 18 153/95 H 95 05/24/19 13:30 80 20 155/77 H 96 05/24/19 13:00 103 H 20 156/97 H 96 05/24/19 12:30 104 H 20 154/92 H 94 05/24/19 12:14 66 27 H 172/95 H 97 05/24/19 12:00 72 15 182/102 H 97 05/24/19 11:30 66 16 152/86 H 97 05/24/19 11:00 68 16 166/92 H 98 05/24/19 10:30 67 22 162/82 H 96 05/24/19 10:00 65 17 150/83 H 96 05/24/19 09:30 65 19 150/78 H 96 05/24/19 09:00 65 13 158/77 H 97 05/24/19 08:30 69 15 156/88 H 97 05/24/19 08:00 37.8 C H 66 4 L 168/82 H 98 05/24/19 07:30 65 7 L 165/74 H 98 05/24/19 07:00 69 13 162/77 H 98 05/24/19 05:00 68 23 161/111 H 100 05/24/19 04:30 70 17 151/81 H 100 Laboratory Results 05/24/19 05/24/19 05/24/19 Range/Units 11:27 06:18 03:35 WBC (4.8-10.8) K/uL RBC (4.7-6.1) M/uL Hgb (14.0-18.0) g/dL Hct (42-52) % MCV (80-100) fL MCH (25-34) pg MCHC (32-36) g/dL RDW Std Deviation (36.4-46.3) fL RDW Coeff of [place] (11.5-14.5) % Plt Count (130-400) K/uL MPV (7.4-10.4) fL Immature Gran % (Auto) % Neut % (Auto) % Lymph % (Auto) % [place] % (Auto) % Eos % (Auto) % Baso % (Auto) % Immature Gran # (Auto) (0.00-0.02) K/uL Neut # (Auto) (1.4-6.5) K/uL Lymph # (Auto) (1.2-3.4) K/uL [place] # (Auto) (0.11-0.59) K/uL Eos # (Auto) (0-0.5) K/uL Baso # (Auto) (0-0.2) K/uL Platelet Estimate (Normal) Sample Site POC pH (7.35-7.45) POC pCO2 (35-46) mmHg POC pO2 (80-95) mmHg POC HCO3 (19-24) zac/L POC Total CO2 (24-31) mEq/l POC Base Excess (-9-1.8) zac/L POC ABG O2 Sat (90-95) % Aristeo Test O2 Delivery Device POC O2 Rate POC FiO2 % Tidal Volume PEEP Sodium 142 (136-145) mmol/L Potassium 3.6 (3.5-5.1) mmol/L Chloride 107 (98-107) mmol/L Carbon Dioxide 28 (21-32) mmol/L Anion Gap 7.0 (3-11) BUN 24 H (7-18) mg/dl Creatinine 1.60 H (0.6-1.4) mg/dl Est Cr Clr Drug Dosing 46.5 ml/min Est GFR ( Amer) 46.8 Est GFR (Non-Af Amer) 40.4 BUN/Creatinine Ratio 15.2 (10-20) Glucose 102 H (70-99) mg/dl POC Glucose 91 90 (70-99) Calcium 7.6 L (8.5-10.1) mg/dl Phosphorus 3.5 (2.5-4.9) mg/dl Magnesium 2.1 (1.8-2.4) mg/dl Total Bilirubin 1.1 H (0.2-1) mg/dl Direct Bilirubin 0.4 H (0-0.2) mg/dl AST 32 (15-37) U/L ALT 20 (12-78) U/L Alkaline Phosphatase 50 (45-117) U/L Total Protein 5.5 L (6.4-8.2) gm/dl Albumin 2.6 L (3.4-5.0) gm/dl 05/24/19 05/23/19 05/23/19 Range/Units 03:35 07:34 00:07 WBC 8.84 (4.8-10.8) K/uL RBC 3.63 L (4.7-6.1) M/uL Hgb 11.5 L (14.0-18.0) g/dL Hct 33.8 L (42-52) % MCV 93.1 (80-100) fL MCH 31.7 (25-34) pg MCHC 34.0 (32-36) g/dL RDW Std Deviation 50.8 H (36.4-46.3) fL RDW Coeff of [place] 14.8 H (11.5-14.5) % Plt Count 87 L (130-400) K/uL MPV 11.7 H (7.4-10.4) fL Immature Gran % (Auto) 0.2 % Neut % (Auto) 82.8 % Lymph % (Auto) 7.6 % [place] % (Auto) 8.5 % Eos % (Auto) 0.8 % Baso % (Auto) 0.1 % Immature Gran # (Auto) 0.02 (0.00-0.02) K/uL Neut # (Auto) 7.32 H (1.4-6.5) K/uL Lymph # (Auto) 0.67 L (1.2-3.4) K/uL [place] # (Auto) 0.75 H (0.11-0.59) K/uL Eos # (Auto) 0.07 (0-0.5) K/uL Baso # (Auto) 0.01 (0-0.2) K/uL Platelet Estimate Decreased L (Normal) Sample Site R Radial Art Line POC pH 7.36 7.37 (7.35-7.45) POC pCO2 46 43 (35-46) mmHg POC pO2 75 L 67 L (80-95) mmHg POC HCO3 26 H 25 H (19-24) zac/L POC Total CO2 27 27 (24-31) mEq/l POC Base Excess 1.0 0.0 (-9-1.8) zac/L POC ABG O2 Sat 94.0 92.0 (90-95) % Aristeo Test Pass NA O2 Delivery Device Ventilator Ventilator POC O2 Rate 16 16 POC FiO2 40 30 % Tidal Volume 450 450 PEEP 6 6 Sodium (136-145) mmol/L Potassium (3.5-5.1) mmol/L Chloride (98-107) mmol/L Carbon Dioxide (21-32) mmol/L Anion Gap (3-11) BUN (7-18) mg/dl Creatinine (0.6-1.4) mg/dl Est Cr Clr Drug Dosing ml/min Est GFR ( Amer) Est GFR (Non-Af Amer) BUN/Creatinine Ratio (10-20) Glucose (70-99) mg/dl POC Glucose (70-99) Calcium (8.5-10.1) mg/dl Phosphorus (2.5-4.9) mg/dl Magnesium (1.8-2.4) mg/dl Total Bilirubin (0.2-1) mg/dl Direct Bilirubin (0-0.2) mg/dl AST (15-37) U/L ALT (12-78) U/L Alkaline Phosphatase (45-117) U/L Total Protein (6.4-8.2) gm/dl Albumin (3.4-5.0) gm/dl Medications Administered Current Inpatient Medications Fentanyl Citrate (Fentanyl Citrate) 25 mcg IV Q2H PRN PRN Reason: Moderate Pain (4,5,6) Stop: 06/05/19 23:38 Last Admin: 05/24/19 08:20 Dose: 25 mcg Documented by: Heparin Sodium (Porcine) (Heparin Sodium (Porcine)) 5,000 units SQ Q8 [facility] Stop: 06/23/19 13:59 Last Admin: 05/24/19 13:45 Dose: 5,000 units Documented by: Hydralazine HCl (Hydralazine Hcl) 10 mg IV Q6H PRN PRN Reason: Hypertension Stop: 06/22/19 19:17 Last Admin: 05/24/19 12:22 Dose: 10 mg Documented by: Levothyroxine Sodium 56 mcg/ (Syringe) 2.8 mls @ 2 mls/min IV DAILY@0900 [facility] Stop: 06/22/19 08:59 Last Admin: 05/24/19 08:29 Dose: 2 mls/min Documented by: Famotidine 20 mg/ Syringe 5 mls @ 2.5 mls/min IV Q12H [facility] Stop: 06/22/19 08:59 Last Admin: 05/24/19 08:11 Dose: 2.5 mls/min Documented by: Acetaminophen (Ofirmev) 1,000 mg in 100 mls @ 400 mls/hr IV Q8H PRN PRN Reason: Fever/Mild Pain (Pain 1,2,3) Stop: 05/25/19 23:38 Last Infusion: 05/23/19 19:08 Dose: Infused Documented by: Parenteral Electrolytes (Normosol-R) 1,000 mls @ 70 mls/hr IV .[id number] [facility] Stop: 06/23/19 09:44 Last Admin: 05/24/19 11:28 Dose: 70 mls/hr Documented by: Ceftriaxone Sodium 2,000 mg/ (Dextrose) 70 mls @ 140 mls/hr IV Q24H [facility] Stop: 06/05/19 23:59 Last Infusion: 05/24/19 15:39 Dose: Infused Documented by: Metronidazole (Flagyl) 500 mg in 100 mls @ 100 mls/hr IV Q8H [facility] Stop: 05/26/19 11:44 Last Infusion: 05/24/19 13:58 Dose: Infused Documented by: Metoprolol Tartrate (Lopressor) 5 mg IV Q4 PRN PRN Reason: Tachycardia Stop: 06/22/19 00:00 Miscellaneous (Icu Protocol For Hyperglycemia) 1 ea N/A PRN PRN; Protocol PRN Reason: Hyperglycemia Protocol Stop: 05/24/19 23:38 Ondansetron HCl (Zofran) 4 mg IV Q4H PRN PRN Reason: Nausea And Vomiting Stop: 06/21/19 23:27 Resident Activity Tracking Resident Involvement: Resident Care Provided Care Provided: Adult Hospital Medicine (ICU care)
[2019-05-24] MEDS: ACETAMINOPHEN 1,000 MG/100 ML VIAL IV PRN (19:27)
[2019-05-25] MEDS: NORMOSOL-R 1,000 ML IV SCH ×2 (01:28→18:16)
[2019-05-25] MEDS: HydrALAZINE HCL 20 MG/ML VIAL IV PRN (01:28)
[2019-05-25] MEDS: metroNIDAZOLE 500 MG/100 ML BAG IV SCH (04:23)
[2019-05-25] MEDS: ACETAMINOPHEN 1,000 MG/100 ML VIAL IV PRN (04:30)
[2019-05-25 05:10] LABS: Basophils # (auto) 0.02 K/uL (0-0.2); Basophils % (auto) 0.2 %; Eosinophils # (auto) 0.07 K/uL (0-0.5); Eosinophils % (auto) 0.6 %; Hematocrit (blood only) 35.8 % (42-52); Immature Granulocytes # (auto) 0.02 K/uL (0.00-0.02); Immature Granulocytes % (auto) 0.2 %; Lymphocytes # (auto) 0.73 K/uL (1.2-3.4); Lymphocytes % (auto) 6.5 %; Mean Corpuscular Hemoglobin 31.7 pg (25-34); Mean Corpuscular Hgb Conc 33.5 g/dL (32-36); Mean Corpuscular Volume 94.5 fL (80-100); Mean Platelet Volume 11.7 fL (7.4-10.4); Monocytes % (auto) 6.2 %; Neutrophils % (auto) 86.3 %; Platelet Count 115 K/uL (130-400); RDW Coefficient of Variation 14.6 % (11.5-14.5); RDW Standard Deviation 50.3 fL (36.4-46.3); Red Blood Count 3.79 M/uL (4.7-6.1); White Blood Count 11.24 K/uL (4.8-10.8)
[2019-05-25 05:38] LABS: Albumin Level 2.4 gm/dl (3.4-5.0); BUN Creatinine Ratio 17.7 (10-20); Bilirubin Direct 0.4 mg/dl (0-0.2); Calcium 7.5 mg/dl (8.5-10.1); Creatinine Clr Calc Pharmacy 53.2 ml/min; Est GFR (Non-African American) 47.5; Magnesium 2.3 mg/dl (1.8-2.4); Potassium 3.6 mmol/L (3.5-5.1)
[2019-05-25 05:41] LABS: Bilirubin,Total 0.8 mg/dl (0.2-1); Phosphorus 2.9 mg/dl (2.5-4.9); Total Protein 5.6 gm/dl (6.4-8.2)
[2019-05-25] MEDS: HEPARIN SOD 5,000 UNIT/0.5 ML VIAL SQ SCH ×3 (06:19→21:08)
--- NOTE | 2019-05-25 06:45 | Hospitalist Progress Note ---
Date of Service May 25, 2019 Assessment & Plan (1) Acute appendicitis with generalized peritonitis: ASSESSMENT AND PLAN: This is a 79-year-old male who presents with abdominal pain of 1-day duration, found to have acute appendicitis on CAT scan. 1. Acute appendicitis/peritonitis, started with laparoscopic appendectomy which was converted to open ileocecectomy, found to have pus throughout abdomen and friable bowel. Mass in right lower quadrant, currently on BIPAP, on IV Zosyn. Will Follow up with the pathology. Continue monitoring in the ICU. 2. s/p VDRF on BIPAP now/History of diastolic congestive heart failure, not on diuretics at home, on Coreg and lisinopril which are on hold. Monitor for any volume overload. 3. Hypertension, on lisinopril, Coreg, hydralazine, Hytrin, and amlodipine, which are on hold. Placed on IV Lopressor p.r.n. Monitor the blood pressure. 4. Gastroesophageal reflux disease, on Prilosec at home, we will place on IV Pepcid. 5. Gout, on allopurinol, which is on hold. Restart when able to. 6. Hyperlipidemia, on Lipitor 5 mg, which is on hold. Will restart when able to. 7. History of depression, on Celexa, which is on hold for now. 8. History of obstructive sleep apnea, currently intubated. 9. Recent diagnosis of monoclonal paraproteinemia. s/p Bone marrow biopsy. Recent PET scan unremarkable. Hematology/oncology currently observing. 10. Deep venous thrombosis prophylaxis, sequential compression devices for now. 11. Disposition, Off vent closely monitor in ICU. Labs Checked, Diet per GS ROS-No Headache, No Visual Changes, No Nausea, No Vomiting, No Fever, No Chills, No Neck Pain or Stiffness, No Chest Pain, No Palpitations, No SOB, No FARAH, No Cough, No Sputum, No Wheezing, No Abdominal Pain, No Diarrhea, No Hematemesis, No Hemoptysis, No Unexpected Weight Loss, No Flank pain, No Melena, No Hematochezia, No Frequency, No Urgency, No Burning, No Hematuria, No Rashes, No Diaphoresis. Appetite is Rosa No Flatus Physical Exam Gen-AAO x 3, NAD, Afebrile, on O2 Mask, Feeling better each day Head-NCAT, EOMI, PERRLA, Anicteric Sclera, No Posterior Pharyngeal Erythema Neck-Supple, No JVD, No Thyromegaly, No Masses, No LAD, No Bruits Lungs-Clear to Auscultation Bilaterally, No Rales, No Rhonchi, No Wheezing, No Crepitus Chest-No S4, +S1, +S2, No S3, No Murmurs, No Rubs, No Gallops, No Ectopy Abdomen-Soft, Bowel Sounds Present, Tender, Non Distended, No Hepatomegaly, No Splenomegaly, No Palpable Masses, No Rebound, No Rigidity, Open and dressed Musculoskeletal-Full Range of Motion Bilaterally, No CVAT Extremities-No Cyanosis, No Clubbing, No Edema Nuero-Cranial Nerves II-XII grossly intact, Motor WNL, DTRs WNL, Strength WNL, Non Focal Psych-Normal Mood Results & Data Vital Signs (Past 12 Hours) Vital Signs Pulse Resp BP Pulse Ox 05/25/19 04:00 58 L 18 160/78 H 91 05/25/19 03:00 69 22 161/74 H 90 05/25/19 02:00 66 20 160/80 H 91 05/25/19 01:00 65 22 162/82 H 89 L 05/25/19 00:00 71 23 137/78 92 05/24/19 23:00 73 22 149/73 H 93 05/24/19 22:00 78 22 158/75 H 97 05/24/19 21:00 77 19 137/69 94 05/24/19 20:00 102 H 24 146/80 H 94 05/24/19 19:52 110 H 22 152/78 H 94 05/24/19 19:51 110 H 152/78 H 05/24/19 19:00 108 H 23 162/101 H 94
--- NOTE | 2019-05-25 06:47 | XRay Report ---
XR chest 1V portable HISTORY: 79 years-old Male f/u . Study in a patient with shortness of breath COMPARISON: Chest radiograph 05/24/2019 TECHNIQUE: Portable AP view of the chest FINDINGS: Cardiac silhouette is enlarged, unchanged. Stable right hemidiaphragmatic elevation. Right greater le ft bibasilar linear opacities. No pneumothorax, large pleural effusion or overt pulmonary edema. Dege nerative changes of the shoulders and spine. Enteric tube distal tip overlies the proximal gastric shahab dy. IMPRESSION: 1. Cardiomegaly without overt pulmonary edema. 2. Unchanged right hemidiaphragmatic elevation with right greater than left bibasilar opacities sugge stive of atelectasis. 3. Unchanged positioning of the enteric tube. The above report was generated using voice recognition software. It may contain grammatical, syntax o r spelling errors. Electronically signed by: Dyllan Mortensen M.D. 05/25/2019 6:46 AM
[2019-05-25] MEDS: FAMOTIDINE 20 MG in SYRINGE 3 ML IV SCH ×2 (07:31→20:51)
[2019-05-25] MEDS ORDERED: ACETAMINOPHEN 325 MG TAB PO PRN (09:10)
[2019-05-25] MEDS ORDERED: OXYCODONE HCL IR 5 MG TAB (IMMEDIATE RELEASE) PO PRN ×2 (09:10)
[2019-05-25] MEDS ORDERED: cefOXitin 2,000 MG in DEXTROSE 5% 50 ML IV SCH (09:15)
--- NOTE | 2019-05-25 09:53 | Infectious Disease Progress Nt ---
Date of Service May 25, 2019 Assessment & Plan (1) Acute appendicitis with generalized peritonitis: Patient with perforated appendix, questionable cecal mass with subsequent diffuse peritonitis with cultures growing E. coli, Klebsiella, and Citrobacter. Given resistance of Citrobacter to ceftriaxone, will change patient to ertapenem 1 g daily. We will continue to follow. (2) Escherichia coli infection: (3) Klebsiella infection: Subjective Patient seen in follow-up for perforated appendix with generalized peritonitis. Complaining of some abdominal pain today, minimally worse than yesterday evening. Otherwise appears comfortable, hemodynamically stable overnight, remains afebrile. No other new complaints. Third gram-negative isolate identified as Citrobacter, resistant to ceftriaxone. Review of Systems Review of Systems: All systems reviewed & are unremarkable except as noted in HPI & below Physical Exam Constitutional: WD/WN, vitals as above comfortable; no acute distress Eyes: PERRL, conjunctivae normal, anicteric sclerae ENMT: external ear and nose normal, oropharynx normal Neck: trachea midline, no thyromegaly neck nontender Respiratory: normal respiratory effort, lungs clear to auscultation no labored breathing and does not use accessory muscles Cardiovascular: Rate/Rhythm: regular rate and regular rhythm Heart Sounds: normal S1 and normal S2; no gallop, no murmur and no cardiac rub Vessels: normal peripheral pulses; no JVD Gastrointestinal (Abdomen): Inspection/Auscultation: + abdomen distended and + abdominal surgical incision (There is intact); + abnormal bowel sounds (No bowel sounds present) Percussion/Palpation: + abdomen tender (Mild diffuse without rebound or guarding); no hepatosplenomegaly Musculoskeletal: no cyanosis or clubbing, extremities motor strength 5/5 Spine: thoracic spine normal to inspection and lumbar spine normal to inspection; no cervical spinal tenderness Skin: no rashes, warm and dry normal turgor and + wound (Wound dressing intact) Neurologic: patellar DTR's 2+ bilat, sensation intact no focal motor deficits Psychiatric: A+Ox3, euthymic affect Orientation: cooperative Lymphatic: no cervical or axillary lymphadenopathy no inguinal lymphadenopathy Results & Data Vital Signs (Past 12 Hours) Vital Signs Pulse Resp BP Pulse Ox 05/25/19 04:00 58 L 18 160/78 H 91 05/25/19 03:00 69 22 161/74 H 90 05/25/19 02:00 66 20 160/80 H 91 05/25/19 01:00 65 22 162/82 H 89 L 05/25/19 00:00 71 23 137/78 92 05/24/19 23:00 73 22 149/73 H 93 05/24/19 22:00 78 22 158/75 H 97 Laboratory Results Short CBC 05/25/19 Range/Units 04:38 WBC 11.24 H (4.8-10.8) K/uL Hgb 12.0 L (14.0-18.0) g/dL Hct 35.8 L (42-52) % Plt Count 115 L (130-400) K/uL BMP 05/25/19 04:38 Sodium 141 Potassium 3.6 Chloride 107 Carbon Dioxide 27 BUN 25 H Creatinine 1.40 Glucose 93 Calcium 7.5 L Liver Function 05/25/19 Range/Units 04:38 Total Bilirubin 0.8 (0.2-1) mg/dl Direct Bilirubin 0.4 H (0-0.2) mg/dl AST 17 (15-37) U/L ALT 17 (12-78) U/L Alkaline Phosphatase 55 (45-117) U/L Albumin 2.4 L (3.4-5.0) gm/dl Diagnostic Findings Microbiology 05/22/19 20:30 Peritoneal Fluid Gram Stain - Final 05/22/19 20:30 Peritoneal Fluid Aerobic and Anaerobic Culture - Preliminary Escherichia coli Klebsiella pneumoniae Citrobacter amalonaticus 05/22/19 20:30 Urine,Indwelling Cath Urine Culture - Final No growth - less than 1,000 colonies/mL. PG Care Time/CCT Total # of Minutes Spent Total Time Spent with Patient: Total time spent is greater than 50% in coordination of care (as documented) at patient's floor/unit and/or counseling patient:
[2019-05-25] MEDS ORDERED: POTASSIUM PHOSPHATE 18 MMOL in SODIUM CHLORIDE 0.9% 500 ML IV ONE (10:00)
[2019-05-25] MEDS: carvediloL 3.125 MG TAB PO SCH ×2 (10:02→20:49)
[2019-05-25] MEDS: AMLODIPINE BESYLATE 5 MG TAB PO SCH (10:02)
[2019-05-25] MEDS: LEVOTHYROXINE SODIUM 56 MCG in SYRINGE 0 ML IV SCH (10:02)
[2019-05-25] MEDS: FLUCONAZOLE 200 MG/5 ML UDP PO SCH (10:06)
--- NOTE | 2019-05-25 11:03 | Billing Data ---
Coding Level of Care Code Critical Care 1st 30-74 mins
--- NOTE | 2019-05-25 11:04 | Billing Data ---
Coding Level of Care Code 04244 Initial Inpt Care Lvl 3
[2019-05-25] MEDS ORDERED: MoRPHine SULFATE 2 MG/ML CARP IV PRN ×2 (11:30)
[2019-05-25] MEDS ORDERED: MoRPHine SULFATE 4 MG/ML 1 ML CARP\\VIAL IV PRN (11:30)
--- NOTE | 2019-05-25 11:30 | Critical Care Progress Note ---
Date of Service May 25, 2019 Assessment & Plan (1) Acute appendicitis with generalized peritonitis: 79-year-old male was admitted on May 23, 2019 for a perforated appy now s/p open appendectomy and perioperative hypoxemia. Admitted to ICU post-op. LAST TRIMMER: CAM-ICU negative. Stopped fentanyl prn. Pain control via Tylenol then oxycodone (though concern for prior addiction) all prn. PMH Depression, had been holding home celexa while NPO. Pulm: Acute hypoxic respiratory failure likely secondary to pulm edema, poor inspiratory effort, PMH NAHEED (uses CPAP at home). Intubated post-surgery, 17Nov extubated, and presently on NC oxygen. CVS: PMH HTN, HLD, non-occlusive CAD, prolonged QTc (501), pSVT, LBBB, diastolic CHF. January 2019 TTE noted EF 55-59%, small anterior loculated pericardial effusion, moderate concentric LVH. - Restarting home coreg and amlodipine. Holding home Lisinopril, hydralazine, terazosin, atorvastatin for now. Has IV Lopressor prn. - Ordered serial EKG to monitor QTc, particularly given med changes. ID: Borderline febrile. WBC 11. 17Nov initial abx started. 16Nov peritoneal fluid cultures positive for E coli + Klebsiella + Citrobacter (poly-resistant). 16Nov UCx no growth final. ID consulted, on 19Nov changed to ertapenem. - Concerned that patient was febrile > 24 hours after starting Zosyn. Will look for fungal source via fungal culture and fungitell 1-3 testing. 19Nov start empiric diflucan (though need to watch QTc). Also checking BCx. Endo: No known DM. BSGs per unit protocol. On ISS. PMH hypothyroidism, holding home levothyroxine. PMH gout, no present evidence of flair, will likely add back allopurinol when taking PO. Renal/Lytes: - PMH CKD stage III, baseline Cr perhaps 1.2. Some acute rise to Cr 1.6 (now improved to 1.4), suspect pre-renal. Is on normosol, but decreased maintenance rate to 50 mL/hr. - Hypokalemia: Lowest K 3.1, replaced/resolved. Home KCl held while NPO. - Hypocalcemia: Lowest Ca 7.0. - PMH BPH and admit CT a/p suggestive of chronic bladder outlet obstruction. H eld home terazosin. D/c fowler cath. GI: Presently NPO except chips and meds. Presented with perforated appy and peritonitis. 16Nov s/p lap appy converted to open ileocecectomy. Presently open abdomen. See surgery notes. Has NGT for ileus, presently clamped. On IV famotidine for GI prophy (and PMH GERD at home on Prilosec). PSH cholecystectomy. Heme: Lowest Hb 11.3 post-op. Thrombocytopenia with lowest platelets 87. PMH recent diagnosis of multiple myeloma (monoclonal paraproteinemia) per daughter, with unremarkable PET scan and bone marrow biopsies, and no active treatment for this. DVT prophy: On heparin and SCDs. Skin: No acute issues. Lines: PIVs x3. 17Nov endurance catheter to the RIGHT forearm. Fowler catheter (d/c planned). NGT. Code status: Full code. PT/OT: See notes. Goal for OOB to chair at least TID. Disposition: Stable for transfer out of ICU to telemetry. 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 Cormier was resident physician during care of patient. I separately evaluated patient for miller portions of the history and the exam. I was present during the critical portion of medical decision making, and I discussed the case with the resident. I generally agree with the findings and plan. Patient was discussed on multidisciplinary rounds, patient continuing to improve. Changed antibiotics to ertapenem. Convert to oral medications, patient is mobilizing and working with PT stable for downgrade out of ICU. Subjective Spoke with patient this morning on rounds. Awake, alert, and states overall he has no discomfort including in his abdomen. Says no flatus yet. Overall has no acute concerns. Review of Systems Review of Systems: Per HPI as above. Physical Exam Physical Exam: General Appearance: Awake, alert & oriented, comfortable in general, NAD. CV: +S1S2 RRR, no murmur. (Some PVCs on monitor). Pulm: Clear to auscultation throughout. Abdomen: Positive bowel sounds. Soft, non-tender to palpation around the dressing. Midline surgical incision has overlying c/d/i dressing. Extremities: Trace bilateral LE edema. No calf tenderness. Moving all extremities naturally and easily. Neuro: No gross neuro deficits. Results & Data Vital Signs (Past 12 Hours) Vital Signs Pulse Resp BP Pulse Ox 05/25/19 04:00 58 L 18 160/78 H 91 05/25/19 03:00 69 22 161/74 H 90 05/25/19 02:00 66 20 160/80 H 91 05/25/19 01:00 65 22 162/82 H 89 L 05/25/19 00:00 71 23 137/78 92 Laboratory Results 05/25/19 05/25/19 05/25/19 Range/Units 09:43 04:38 04:38 WBC 11.24 H (4.8-10.8) K/uL RBC 3.79 L (4.7-6.1) M/uL Hgb 12.0 L (14.0-18.0) g/dL Hct 35.8 L (42-52) % MCV 94.5 (80-100) fL MCH 31.7 (25-34) pg MCHC 33.5 (32-36) g/dL RDW Std Deviation 50.3 H (36.4-46.3) fL RDW Coeff of [place] 14.6 H (11.5-14.5) % Plt Count 115 L (130-400) K/uL MPV 11.7 H (7.4-10.4) fL Immature Gran % (Auto) 0.2 % Neut % (Auto) 86.3 % Lymph % (Auto) 6.5 % [place] % (Auto) 6.2 % Eos % (Auto) 0.6 % Baso % (Auto) 0.2 % Immature Gran # (Auto) 0.02 (0.00-0.02) K/uL Neut # (Auto) 9.70 H (1.4-6.5) K/uL Lymph # (Auto) 0.73 L (1.2-3.4) K/uL [place] # (Auto) 0.70 H (0.11-0.59) K/uL Eos # (Auto) 0.07 (0-0.5) K/uL Baso # (Auto) 0.02 (0-0.2) K/uL Sodium 141 (136-145) mmol/L Potassium 3.6 (3.5-5.1) mmol/L Chloride 107 (98-107) mmol/L Carbon Dioxide 27 (21-32) mmol/L Anion Gap 7.0 (3-11) BUN 25 H (7-18) mg/dl Creatinine 1.40 (0.6-1.4) mg/dl Est Cr Clr Drug Dosing 53.2 ml/min Est GFR ( Amer) 55.0 Est GFR (Non-Af Amer) 47.5 BUN/Creatinine Ratio 17.7 (10-20) Glucose 93 (70-99) mg/dl POC Glucose (70-99) Calcium 7.5 L (8.5-10.1) mg/dl Phosphorus 2.9 (2.5-4.9) mg/dl Magnesium 2.3 (1.8-2.4) mg/dl Total Bilirubin 0.8 (0.2-1) mg/dl Direct Bilirubin 0.4 H (0-0.2) mg/dl AST 17 (15-37) U/L ALT 17 (12-78) U/L Alkaline Phosphatase 55 (45-117) U/L Total Protein 5.6 L (6.4-8.2) gm/dl Albumin 2.4 L (3.4-5.0) gm/dl Beta-(1,3)-D-Glucan Pending B-(1,3)-D-Glucan Intrp Pending 05/24/19 05/24/19 05/24/19 Range/Units 23:42 19:23 11:27 WBC (4.8-10.8) K/uL RBC (4.7-6.1) M/uL Hgb (14.0-18.0) g/dL Hct (42-52) % MCV (80-100) fL MCH (25-34) pg MCHC (32-36) g/dL RDW Std Deviation (36.4-46.3) fL RDW Coeff of [place] (11.5-14.5) % Plt Count (130-400) K/uL MPV (7.4-10.4) fL Immature Gran % (Auto) % Neut % (Auto) % Lymph % (Auto) % [place] % (Auto) % Eos % (Auto) % Baso % (Auto) % Immature Gran # (Auto) (0.00-0.02) K/uL Neut # (Auto) (1.4-6.5) K/uL Lymph # (Auto) (1.2-3.4) K/uL [place] # (Auto) (0.11-0.59) K/uL Eos # (Auto) (0-0.5) K/uL Baso # (Auto) (0-0.2) K/uL Sodium (136-145) mmol/L Potassium (3.5-5.1) mmol/L Chloride (98-107) mmol/L Carbon Dioxide (21-32) mmol/L Anion Gap (3-11) BUN (7-18) mg/dl Creatinine (0.6-1.4) mg/dl Est Cr Clr Drug Dosing ml/min Est GFR ( Amer) Est GFR (Non-Af Amer) BUN/Creatinine Ratio (10-20) Glucose (70-99) mg/dl POC Glucose 87 86 91 (70-99) Calcium (8.5-10.1) mg/dl Phosphorus (2.5-4.9) mg/dl Magnesium (1.8-2.4) mg/dl Total Bilirubin (0.2-1) mg/dl Direct Bilirubin (0-0.2) mg/dl AST (15-37) U/L ALT (12-78) U/L Alkaline Phosphatase (45-117) U/L Total Protein (6.4-8.2) gm/dl Albumin (3.4-5.0) gm/dl Beta-(1,3)-D-Glucan B-(1,3)-D-Glucan Intrp Medications Administered Current Inpatient Medications Acetaminophen (Tylenol) 650 mg PO Q4H PRN PRN Reason: Fever/Mild Pain (Pain 1,2,3) Stop: 06/24/19 09:09 Amlodipine Besylate (Norvasc) 10 mg PO QAM [facility] Stop: 06/24/19 09:29 Last Admin: 05/25/19 10:02 Dose: 10 mg Documented by: Carvedilol (Coreg) 3.125 mg PO BID [facility] Stop: 06/24/19 09:29 Last Admin: 05/25/19 10:02 Dose: 3.125 mg Documented by: Fluconazole (Diflucan) 200 mg PO QAM [facility] Stop: 06/04/19 09:29 Last Admin: 05/25/19 10:06 Dose: 200 mg Documented by: Heparin Sodium (Porcine) (Heparin Sodium (Porcine)) 5,000 units SQ Q8 [facility] Stop: 06/23/19 13:59 Last Admin: 05/25/19 06:19 Dose: 5,000 units Documented by: Hydralazine HCl (Hydralazine Hcl) 10 mg IV Q6H PRN PRN Reason: Hypertension Stop: 06/22/19 19:17 Last Admin: 05/25/19 01:28 Dose: 10 mg Documented by: Levothyroxine Sodium 56 mcg/ (Syringe) 2.8 mls @ 2 mls/min IV DAILY@0900 [facility] Stop: 06/22/19 08:59 Last Admin: 05/25/19 10:02 Dose: 2 mls/min Documented by: Famotidine 20 mg/ Syringe 5 mls @ 2.5 mls/min IV Q12H [facility] Stop: 06/22/19 08:59 Last Admin: 05/25/19 07:31 Dose: 2.5 mls/min Documented by: Parenteral Electrolytes (Normosol-R) 1,000 mls @ 50 mls/hr IV .Q20H [facility] Stop: 06/23/19 09:44 Last Infusion: 05/25/19 09:52 Dose: 50 mls/hr Documented by: Potassium Phosphate 18 mmol/ (Sodium Chloride) 506 mls @ 88 mls/hr IV ONE ONE Stop: 05/25/19 15:44 Last Admin: 05/25/19 10:02 Dose: 88 mls/hr Documented by: Ertapenem 1,000 mg/ Sodium (Chloride) 60 mls @ 100 mls/hr IV Q24H [facility]; Protocol Stop: 06/04/19 09:59 Metoprolol Tartrate (Lopressor) 5 mg IV Q4 PRN PRN Reason: Tachycardia Stop: 06/22/19 00:00 Last Admin: 05/24/19 19:51 Dose: 5 mg Documented by: Ondansetron HCl (Zofran) 4 mg IV Q4H PRN PRN Reason: Nausea And Vomiting Stop: 06/21/19 23:27 Last Admin: 05/25/19 10:31 Dose: 4 mg Documented by: Oxycodone HCl (Roxicodone Immediate Rel) 5 mg PO Q6H PRN PRN Reason: Moderate Pain (4,5,6) Stop: 06/08/19 09:09 Oxycodone HCl (Roxicodone Immediate Rel) 10 mg PO Q6H PRN PRN Reason: Severe Pain (7,8,9,10) Stop: 06/08/19 09:09 Resident Activity Tracking Resident Involvement: Resident Care Provided Care Provided: Adult Hospital Medicine (ICU)
[2019-05-25] MEDS: ERTAPENEM SODIUM 1,000 MG in SODIUM CHLORIDE 0.9% 50 ML IV SCH (11:34)
--- NOTE | 2019-05-25 13:15 | Surgery Progress Note ---
Date of Service May 25, 2019 Assessment & Plan (1) Acute appendicitis with generalized peritonitis: POD # 2 s/p open ileocectomy. Pus was throughout abdomen/ friable bowel. Would expect ileus and delayed return of bowel function. -Afebrile vital signs stable other than hypertensive -Mild leukocytosis of 11,000 today -Abdomen distended NG tube has been clamped since yesterday morning 9 AM -Persistent nausea, no vomiting -Peritoneal fluid culture showing E. coli, Klebsiella pneumoniae, Citrobacter and Bacteroides. Citrobacter resistant to ceftriaxone. Antibiotics switched to ertapenem. Infectious disease following Plan: Patient will be transferred to PCU Continue n.p.o. may have meds with small sip of water and few ice chips with mouth swabs NG tube to low intermittent suction given persistent abdominal distention and persistent nausea. Likely in the setting of postoperative ileus due to amount of purulent peritonitis intraoperatively. He also had ileocecectomy and small bowel resection so will be slow with NG tube removal until there is good return of bowel function. Continue IV fluids We will start IV morphine as needed for pain Continue oral meds per medicine Continue IV ertapenem, appreciate infectious disease recommendations Continue IV Zofran as needed Continue subcu heparin and SCDs for DVT prophylaxis Out of bed to chair and continue PT/OT Repeat a.m. labs including CBC and BMP Dr. Healy has seen and examined patient agrees with above Subjective no abdominal pain feeling nauseated today but no vomiting no flatus or bowel movement still feels bloated Physical Exam Constitutional: + morbidly obese; no acute distress Gastrointestinal (Abdomen): Inspection/Auscultation: + abdomen distended; + abnormal bowel sounds Percussion/Palpation: + abdomen tender (generalized tenderness) and abdomen soft; no guarding and abdomen not rigid Skin: no rashes, warm and dry + incision (Covered with dressing, dry spotting inferior) Psychiatric: Orientation: alert Results & Data Vital Signs (Past 12 Hours) Vital Signs Pulse Resp BP Pulse Ox 05/25/19 12:00 68 21 192/97 H 94 05/25/19 11:34 59 L 20 192/103 H 93 05/25/19 11:09 64 18 190/87 H 94 05/25/19 11:00 75 21 203/95 H 93 05/25/19 10:41 72 13 194/114 H 94 05/25/19 10:01 77 6 L 197/118 H 88 L 05/25/19 09:00 71 3 L 171/103 H 95 05/25/19 08:00 63 2 L 175/78 H 94 05/25/19 07:00 58 L 0 L 160/79 H 94 05/25/19 04:00 58 L 18 160/78 H 91 05/25/19 03:00 69 22 161/74 H 90 05/25/19 02:00 66 20 160/80 H 91 Laboratory Results 05/25/19 05/25/19 05/25/19 Range/Units 09:43 04:38 04:38 WBC 11.24 H (4.8-10.8) K/uL RBC 3.79 L (4.7-6.1) M/uL Hgb 12.0 L (14.0-18.0) g/dL Hct 35.8 L (42-52) % MCV 94.5 (80-100) fL MCH 31.7 (25-34) pg MCHC 33.5 (32-36) g/dL RDW Std Deviation 50.3 H (36.4-46.3) fL RDW Coeff of Nunu 14.6 H (11.5-14.5) % Plt Count 115 L (130-400) K/uL MPV 11.7 H (7.4-10.4) fL Immature Gran % (Auto) 0.2 % Neut % (Auto) 86.3 % Lymph % (Auto) 6.5 % [place] % (Auto) 6.2 % Eos % (Auto) 0.6 % Baso % (Auto) 0.2 % Immature Gran # (Auto) 0.02 (0.00-0.02) K/uL Neut # (Auto) 9.70 H (1.4-6.5) K/uL Lymph # (Auto) 0.73 L (1.2-3.4) K/uL Sum[place] # (Auto) 0.70 H (0.11-0.59) K/uL Eos # (Auto) 0.07 (0-0.5) K/uL Baso # (Auto) 0.02 (0-0.2) K/uL Sodium 141 (136-145) mmol/L Potassium 3.6 (3.5-5.1) mmol/L Chloride 107 (98-107) mmol/L Carbon Dioxide 27 (21-32) mmol/L Anion Gap 7.0 (3-11) BUN 25 H (7-18) mg/dl Creatinine 1.40 (0.6-1.4) mg/dl Est Cr Clr Drug Dosing 53.2 ml/min Est GFR ( Amer) 55.0 Est GFR (Non-Af Amer) 47.5 BUN/Creatinine Ratio 17.7 (10-20) Glucose 93 (70-99) mg/dl POC Glucose (70-99) Calcium 7.5 L (8.5-10.1) mg/dl Phosphorus 2.9 (2.5-4.9) mg/dl Magnesium 2.3 (1.8-2.4) mg/dl Total Bilirubin 0.8 (0.2-1) mg/dl Direct Bilirubin 0.4 H (0-0.2) mg/dl AST 17 (15-37) U/L ALT 17 (12-78) U/L Alkaline Phosphatase 55 (45-117) U/L Total Protein 5.6 L (6.4-8.2) gm/dl Albumin 2.4 L (3.4-5.0) gm/dl Beta-(1,3)-D-Glucan Pending B-(1,3)-D-Glucan Intrp Pending 05/24/19 05/24/19 Range/Units 23:42 19:23 WBC (4.8-10.8) K/uL RBC (4.7-6.1) M/uL Hgb (14.0-18.0) g/dL Hct (42-52) % MCV (80-100) fL MCH (25-34) pg MCHC (32-36) g/dL RDW Std Deviation (36.4-46.3) fL RDW Coeff of Nunu (11.5-14.5) % Plt Count (130-400) K/uL MPV (7.4-10.4) fL Immature Gran % (Auto) % Neut % (Auto) % Lymph % (Auto) % [place] % (Auto) % Eos % (Auto) % Baso % (Auto) % Immature Gran # (Auto) (0.00-0.02) K/uL Neut # (Auto) (1.4-6.5) K/uL Lymph # (Auto) (1.2-3.4) K/uL [place] # (Auto) (0.11-0.59) K/uL Eos # (Auto) (0-0.5) K/uL Baso # (Auto) (0-0.2) K/uL Sodium (136-145) mmol/L Potassium (3.5-5.1) mmol/L Chloride (98-107) mmol/L Carbon Dioxide (21-32) mmol/L Anion Gap (3-11) BUN (7-18) mg/dl Creatinine (0.6-1.4) mg/dl Est Cr Clr Drug Dosing ml/min Est GFR ( Amer) Est GFR (Non-Af Amer) BUN/Creatinine Ratio (10-20) Glucose (70-99) mg/dl POC Glucose 87 86 (70-99) Calcium (8.5-10.1) mg/dl Phosphorus (2.5-4.9) mg/dl Magnesium (1.8-2.4) mg/dl Total Bilirubin (0.2-1) mg/dl Direct Bilirubin (0-0.2) mg/dl AST (15-37) U/L ALT (12-78) U/L Alkaline Phosphatase (45-117) U/L Total Protein (6.4-8.2) gm/dl Albumin (3.4-5.0) gm/dl Beta-(1,3)-D-Glucan B-(1,3)-D-Glucan Intrp Microbiology 05/25/19 09:43 Fungal Smear - Final Blood 05/22/19 20:30 Gram Stain - Final Peritoneal Fluid Aerobic and Anaerobic Culture - Preliminary Escherichia coli Klebsiella pneumoniae Citrobacter amalonaticus Bacteroides fragilis group Diagnostic Findings XR chest 1V portable HISTORY: 79 years-old Male f/u . Study in a patient with shortness of breath COMPARISON: Chest radiograph 05/24/2019 TECHNIQUE: Portable AP view of the chest FINDINGS: Cardiac silhouette is enlarged, unchanged. Stable right hemidiaphragmatic elevation. Right greater left bibasilar linear opacities. No pneumothorax, large pleural effusion or overt pulmonary edema. Degenerative changes of the shoulders and spine. Enteric tube distal tip overlies the proximal gastric body. IMPRESSION: 1. Cardiomegaly without overt pulmonary edema. 2. Unchanged right hemidiaphragmatic elevation with right greater than left bibasilar opacities suggestive of atelectasis. 3. Unchanged positioning of the enteric tube.
[2019-05-25] MEDS: CITALOPRAM 20 MG TAB PO SCH (14:22)
[2019-05-25] MEDS: ONDANSETRON HCL 8 MG in DEXTROSE 5% 50 ML IV PRN (16:04)
[2019-05-25 16:58] LABS: BUN Creatinine Ratio 19.4 (10-20); Calcium 7.6 mg/dl (8.5-10.1); Est GFR (Non-African American) 50.9; Potassium 3.9 mmol/L (3.5-5.1)
[2019-05-25] MEDS: ATORVASTATIN 10 MG TAB PO SCH (20:50)
[2019-05-25] MEDS: TERAZOSIN HCL 5 MG CAP PO SCH (20:51)
[2019-05-26] MEDS: LEVOTHYROXINE SODIUM 112 MCG TABLET PO SCH (06:11)
[2019-05-26] MEDS: HEPARIN SOD 5,000 UNIT/0.5 ML VIAL SQ SCH ×3 (06:11→20:14)
[2019-05-26 06:49] LABS: Basophils # (auto) 0.03 K/uL (0-0.2); Basophils % (auto) 0.3 %; Eosinophils # (auto) 0.25 K/uL (0-0.5); Eosinophils % (auto) 2.5 %; Hematocrit (blood only) 32.9 % (42-52); Hemoglobin 10.9 g/dL (14.0-18.0); Immature Granulocytes # (auto) 0.04 K/uL (0.00-0.02); Immature Granulocytes % (auto) 0.4 %; Lymphocytes # (auto) 0.95 K/uL (1.2-3.4); Lymphocytes % (auto) 9.5 %; Mean Corpuscular Hemoglobin 31.1 pg (25-34); Mean Corpuscular Hgb Conc 33.1 g/dL (32-36); Mean Platelet Volume 12.1 fL (7.4-10.4); Monocytes # (auto) 0.94 K/uL (0.11-0.59); Monocytes % (auto) 9.4 %; Neutrophils # (auto) 7.83 K/uL (1.4-6.5); Neutrophils % (auto) 77.9 %; Platelet Count 148 K/uL (130-400); RDW Coefficient of Variation 14.4 % (11.5-14.5); RDW Standard Deviation 49.6 fL (36.4-46.3); White Blood Count 10.04 K/uL (4.8-10.8)
[2019-05-26 07:22] LABS: BUN Creatinine Ratio 19.1 (10-20); Calcium 7.5 mg/dl (8.5-10.1); Creatinine Clr Calc Pharmacy 57.4 ml/min; Est GFR (Non-African American) 50.9; Potassium 3.5 mmol/L (3.5-5.1)
[2019-05-26] MEDS: CITALOPRAM 20 MG TAB PO SCH (08:19)
[2019-05-26] MEDS: carvediloL 3.125 MG TAB PO SCH ×2 (08:19→20:17)
[2019-05-26] MEDS: CHOLECALCIFEROL 1,000 UNITS TAB PO SCH (08:19)
[2019-05-26] MEDS: FLUCONAZOLE 200 MG/5 ML UDP PO SCH (08:19)
[2019-05-26] MEDS: AMLODIPINE BESYLATE 5 MG TAB PO SCH (08:19)
[2019-05-26] MEDS: ALLOPURINOL 300 MG TAB PO SCH (08:19)
[2019-05-26] MEDS: FAMOTIDINE 20 MG in SYRINGE 3 ML IV SCH ×2 (08:20→20:17)
[2019-05-26] MEDS ORDERED: CITALOPRAM 20 MG TAB PO SCH (09:00)
--- NOTE | 2019-05-26 09:11 | Hospitalist Progress Note ---
Date of Service May 26, 2019 Assessment & Plan (1) Acute appendicitis with generalized peritonitis: ASSESSMENT AND PLAN: This is a 79-year-old male who presents with abdominal pain of 1-day duration, found to have acute appendicitis on CAT scan. 1. Acute appendicitis/peritonitis, started with laparoscopic appendectomy which was converted to open ileocecectomy, found to have pus throughout abdomen and friable bowel. - POD#3 - Peritoneal fluid culture (05/22/2019) + for E. coli, Klebsiella pneumoniae, Citrobacter amalonaticus and Bacteroides fragilis group (Citrobacter resistant to ceftriaxone) - ID consulted,switched from IV Zosyn to Ertapenem - Pathology A. CECUM AND TERMINAL ILEUM, ILEOCECECTOMY: - EXUDATIVE ACUTE APPENDICITIS WITH PERFORATION - BENIGN COLONIC AND ILEAL MUCOSA WITH SUPERFICIAL SEROSITIS - NEGATIVE FOR MALIGNANCY B. SMALL BOWEL, RESECTION: - BENIGN SMALL BOWEL MUCOSA WITH SUPERFICIAL SEROSITIS - SMALL FRAGMENT OF UNREMARKABLE COLONIC MUCOSA - NEGATIVE FOR MALIGNANCY 2. History of diastolic congestive heart failure, not on diuretics at home, - continue Coreg, lisinopril on hold for now, plan to resume upon discharge - Monitor for any volume overload 3. Hypertension - resumed coreg, amlodipine, terazosin - holding lisinopril - hydralazine prn - IV Lopressor p.r.n. - will cont. to monitor the blood pressure 4. Gastroesophageal reflux disease -on Prilosec at home, we will place on IV Pepcid. 5. Gout - cont. home allopurinol 6. Hyperlipidemia - cont. home atorvastatin 7. History of depression - cont. home Celexa 8. History of obstructive sleep apnea, cpap at night 9. Hypothyroidism - cont. home levothyroxine 10. Recent diagnosis of monoclonal paraproteinemia. s/p Bone marrow biopsy. - Recent PET scan unremarkable. - Hematology/oncology currently observing. DVT prophylaxis: heparin subq and SCDs Disposition: downgraded from ICU, likely SNF after d/c from hospital Subjective No acute events overnight. Patient is an elderly obese male, lying in bed in no acute distress NG tube placed and supplemental oxygen provided. Patient denies any fevers, chills, chest pain, shortness of breath, only very mild abdominal pain, says it is much better now after surgery. Patient is n.p.o., passing flatus. Supplemental O2 provided, patient speaks in full sentences, no dyspnea. Review of Systems Review of Systems: All systems reviewed & are unremarkable except as noted in HPI & below Constitutional: no fever and no chills Respiratory: no cough, no dyspnea and no pain on inspiration Cardiovascular: no chest pain, no palpitations and no edema Gastrointestinal: + abdominal pain (Only very mild, which is expected post surg.); no nausea and no vomiting Physical Exam Physical Exam: Elderly obese male, lying in bed, in no acute distress, NG tube placed, supplemental O2 via nasal cannula Constitutional: well developed and well nourished; no acute distress Eyes: PERRL, conjunctivae normal, anicteric sclerae EOM intact bilaterally ENMT: external ear and nose normal, oropharynx normal Neck: normal visual inspection Supple Respiratory: normal respiratory effort, lungs clear to auscultation Auscultation: no wheezes Cardiovascular: RRR, no murmur, no edema Heart Sounds: no gallop Vessels: normal peripheral pulses; no JVD Chest (Breasts): Chest: normal inspection of chest Gastrointestinal (Abdomen): Inspection/Auscultation: abdomen normal to inspection and normal bowel sounds; abdomen not distended Percussion/Palpation: + abdomen tender (Only very mild tenderness to palpation) and abdomen soft; no guarding and abdomen not rigid Except for dressings placed over incision/suhas Musculoskeletal: Head/Neck/Chest: normocephalic, head atraumatic and neck supple Extremities: extremities normal to inspection Moves all 4 extremities spontaneously Skin: no rashes, warm and dry Neurologic: PERRL, EOMI, accommodation nl, no face palsy, no dysarthria moves all extremities Psychiatric: A+Ox3, euthymic affect Genitourinary: Briceno catheter placed, drains yellow urine Lymphatic: no lymphedema Results & Data Vital Signs (Past 12 Hours) Vital Signs Temp Pulse Pulse Resp BP Pulse Ox 05/26/19 07:53 36.6 C 60 19 138/74 96 05/26/19 04:30 37.1 C 60 20 142/69 H 97 05/26/19 00:00 63 05/25/19 23:44 36.9 C 68 20 156/72 H 90 Laboratory Results 05/26/19 05/26/19 05/25/19 Range/Units 05:50 05:50 16:14 WBC 10.04 (4.8-10.8) K/uL RBC 3.50 L (4.7-6.1) M/uL Hgb 10.9 L (14.0-18.0) g/dL Hct 32.9 L (42-52) % MCV 94.0 (80-100) fL MCH 31.1 (25-34) pg MCHC 33.1 (32-36) g/dL RDW Std Deviation 49.6 H (36.4-46.3) fL RDW Coeff of Nunu 14.4 (11.5-14.5) % Plt Count 148 (130-400) K/uL MPV 12.1 H (7.4-10.4) fL Immature Gran % (Auto) 0.4 % Neut % (Auto) 77.9 % Lymph % (Auto) 9.5 % Barry % (Auto) 9.4 % Eos % (Auto) 2.5 % Baso % (Auto) 0.3 % Immature Gran # (Auto) 0.04 H (0.00-0.02) K/uL Neut # (Auto) 7.83 H (1.4-6.5) K/uL Lymph # (Auto) 0.95 L (1.2-3.4) K/uL Barry # (Auto) 0.94 H (0.11-0.59) K/uL Eos # (Auto) 0.25 (0-0.5) K/uL Baso # (Auto) 0.03 (0-0.2) K/uL Sodium 144 143 (136-145) mmol/L Potassium 3.5 3.9 Chloride 109 H 108 H (98-107) mmol/L Carbon Dioxide 27 28 (21-32) mmol/L Anion Gap 7.0 7.0 (3-11) BUN 25 H 26 H (7-18) mg/dl Creatinine 1.32 1.32 (0.6-1.4) mg/dl Est Cr Clr Drug Dosing 57.4 58.0 ml/min Est GFR ( Amer) 59.0 59.0 Est GFR (Non-Af Amer) 50.9 50.9 BUN/Creatinine Ratio 19.1 19.4 (10-20) Glucose 82 96 (70-99) mg/dl Calcium 7.5 L 7.6 L (8.5-10.1) mg/dl Ionized Calcium (1.12-1.32) mmol/L Magnesium (1.8-2.4) mg/dl Beta-(1,3)-D-Glucan B-(1,3)-D-Glucan Intrp 05/25/19 05/25/19 05/25/19 Range/Units 16:14 16:14 09:43 WBC (4.8-10.8) K/uL RBC (4.7-6.1) M/uL Hgb (14.0-18.0) g/dL Hct (42-52) % MCV (80-100) fL MCH (25-34) pg MCHC (32-36) g/dL RDW Std Deviation (36.4-46.3) fL RDW Coeff of Nunu (11.5-14.5) % Plt Count (130-400) K/uL MPV (7.4-10.4) fL Immature Gran % (Auto) % Neut % (Auto) % Lymph % (Auto) % Barry % (Auto) % Eos % (Auto) % Baso % (Auto) % Immature Gran # (Auto) (0.00-0.02) K/uL Neut # (Auto) (1.4-6.5) K/uL Lymph # (Auto) (1.2-3.4) K/uL Barry # (Auto) (0.11-0.59) K/uL Eos # (Auto) (0-0.5) K/uL Baso # (Auto) (0-0.2) K/uL Sodium (136-145) mmol/L Potassium Cancelled Chloride (98-107) mmol/L Carbon Dioxide (21-32) mmol/L Anion Gap (3-11) BUN (7-18) mg/dl Creatinine (0.6-1.4) mg/dl Est Cr Clr Drug Dosing ml/min Est GFR ( Amer) Est GFR (Non-Af Amer) BUN/Creatinine Ratio (10-20) Glucose (70-99) mg/dl Calcium (8.5-10.1) mg/dl Ionized Calcium 0.95 L (1.12-1.32) mmol/L Magnesium 2.3 (1.8-2.4) mg/dl Beta-(1,3)-D-Glucan Pending B-(1,3)-D-Glucan Intrp Pending Medications Administered Current Inpatient Medications Acetaminophen (Tylenol) 650 mg PO Q4H PRN PRN Reason: Fever/Mild Pain (Pain 1,2,3) Stop: 06/24/19 09:09 [facility]: 06/25/19 08:59 Last Admin: 05/26/19 08:19 Dose: 300 mg Documented by: Amlodipine Besylate (Norvasc) [facility] Stop: 06/24/19 09:29 Last Admin: 05/26/19 08:19 Dose: 10 mg Documented by: Atorvastatin Calcium (Lipitor) 5 mg PO [facility] Stop: 06/24/19 20:59 Last Admin: 05/25/19 20:50 Dose: 5 mg Documented by: Carvedilol (Coreg) 3.125 mg PO BID [facility] Stop: 06/24/19 09:29 Last Admin: 05/26/19 08:19 Dose: 3.125 mg Documented by: Citalopram [facility]bromide (Celexa) [facility] Stop: 06/24/19 13:59 Last Admin: 05/26/19 08:19 Dose: 20 mg Documented by: Fluconazole (Diflucan) 200 mg PO [facility] Stop: 06/04/19 09:29 Last Admin: 05/26/19 08:19 Dose: 200 mg Documented by: Heparin Sodium (Porcine) (Heparin Sodium (Porcine)) 5,000 units SQ Q8 [facility] Stop: 06/23/19 13:59 Last Admin: 05/26/19 06:11 Dose: 5,000 units Documented by: Hydralazine HCl (Hydralazine Hcl) 10 mg IV Q6H PRN PRN Reason: Hypertension Stop: 06/22/19 19:17 Last Admin: 05/25/19 01:28 Dose: 10 mg Documented by: Famotidine 20 mg/ Syringe 5 mls @ 2.5 mls/min IV Q12H [facility] Stop: 06/22/19 08:59 Last Admin: 05/26/19 08:20 Dose: 2.5 mls/min Documented by: Parenteral Electrolytes (Normosol-R) 1,000 mls @ 50 mls/hr IV .Q20H [facility] Stop: 06/23/19 09:44 Last Admin: 05/25/19 18:16 Dose: 50 mls/hr Documented by: Ertapenem 1,000 mg/ Sodium (Chloride) 60 mls @ 100 mls/hr IV Q24H [facility]; Protocol Stop: 06/04/19 09:59 Last Infusion: 05/25/19 12:15 Dose: Infused Documented by: Ondansetron HCl 8 mg/ Dextrose 54 mls @ 200 mls/hr IV Q4H PRN PRN Reason: Nausea And Vomiting Stop: 06/24/19 15:10 Last Infusion: 05/25/19 16:30 Dose: Infused Documented by: Levothyroxine S[facility] ([facility]throid) [facility] Stop: 06/25/19 06:29 Last Admin: 05/26/19 06:11 Dose: 112 mcg Documented by: Metoprolol Tartrate (Lopressor) 5 mg IV Q4 PRN PRN Reason: Tachycardia Stop: 06/22/19 00:00 Last Admin: 05/24/19 19:51 Dose: 5 mg Documented by: Morphine Sulfate (Morphine Sulfate) 1 mg IV Q2H PRN PRN Reason: Mild Pain Stop: 06/08/19 11:29 Morphine Sulfate (Morphine Sulfate) 2 mg IV Q2H PRN PRN Reason: Moderate Pain Stop: 06/08/19 11:29 Morphine Sulfate (Morphine Sulfate) 4 mg IV Q2H PRN PRN Reason: Severe Pain Stop: 06/08/19 11:29 Oxycodone HCl (Roxicodone Immediate Rel) 5 mg PO Q6H PRN PRN Reason: Moderate Pain (4,5,6) Stop: 06/08/19 09:09 Oxycodone HCl (Roxicodone Immediate Rel) 10 mg PO Q6H PRN PRN Reason: Severe Pain (7,8,9,10) Stop: 06/08/19 09:09 Terazosin HCl (Hytrin) 5 mg PO HS [facility] Stop: 06/24/19 20:59 Last Admin: 05/25/19 20:51 Dose: 5 mg Documented by: Vitamin D (Vitamin D3) 2,[facility] Stop: 06/25/19 08:59 Last Admin: 05/26/19 08:19 Dose: 2,000 units Documented by:
[2019-05-26] MEDS: ERTAPENEM SODIUM 1,000 MG in SODIUM CHLORIDE 0.9% 50 ML IV SCH (10:01)
--- NOTE | 2019-05-26 11:01 | Surgery Progress Note ---
Date of Service May 26, 2019 Assessment & Plan (1) Acute appendicitis with generalized peritonitis: POD # 3 s/p open ileocectomy. Pus was throughout abdomen/ friable bowel. Would expect ileus and delayed return of bowel function. -Afebrile vital signs stable, afebrile, HTN improved today -Leukocytosis resolved -Abdomen less distended today, soft - NGT with 650 cc output in last 24 hours, 150 cc last shift - Nausea improved - passing flatus -Peritoneal fluid culture showing E. coli, Klebsiella pneumoniae, Citrobacter and Bacteroides. Citrobacter resistant to ceftriaxone. Antibiotics switched to ertapenem. Infectious disease following Plan: Continue n.p.o. may have meds with small sip of water and few ice chips with mouth swabs NG tube to low intermittent suction, hopefully can remove tomorrow if continues to pass flatus Continue IV fluids Consider discontinue Briceno will chris with hospitalist team Continue IV morphine , PO Percocet as needed for pain Continue oral meds per medicine Continue IV ertapenem, appreciate infectious disease recommendations Continue IV Zofran as needed Continue subcu heparin and SCDs for DVT prophylaxis Out of bed to chair and continue PT/OT Repeat a.m. labs including CBC and BMP Dr. Healy was present during my examination and agrees with above Subjective feeling okay today minimal abdominal pain nausea much improved today, no vomiting passed small amount of flatus this morning, no bowel movement still has Briceno catheter would like to get up and move today, believe PT is coming to work with him today Physical Exam Constitutional: WD/WN, vitals as above + obese; no acute distress Respiratory: no respiratory distress and no labored breathing Gastrointestinal (Abdomen): Inspection/Auscultation: abdomen normal to inspection and + abdomen distended (mild distention); + abnormal bowel sounds Percussion/Palpation: abdomen soft; abdomen nontender, no guarding and abdomen not rigid Skin: no rashes, warm and dry + incision (suhas intact) Small opening of inferior aspect of wound with packing present, serous drainage, no induration or erythema Psychiatric: A+Ox3, euthymic affect Results & Data Vital Signs (Past 12 Hours) Vital Signs Temp Pulse Pulse Resp BP Pulse Ox 05/26/19 07:53 36.6 C 60 19 138/74 96 05/26/19 04:30 37.1 C 60 20 142/69 H 97 05/26/19 00:00 63 05/25/19 23:44 36.9 C 68 20 156/72 H 90
--- NOTE | 2019-05-26 12:38 | Billing Data ---
Coding Level of Care Code 73674 Subseq Hosp Care Lvl 3
--- NOTE | 2019-05-26 13:02 | Infectious Disease Progress Nt ---
Date of Service May 26, 2019 Assessment & Plan (1) Acute appendicitis with generalized peritonitis: Patient with perforated appendix, questionable cecal mass with subsequent diffuse peritonitis with cultures growing E. coli, Klebsiella, and Citrobacter. Given resistance of Citrobacter to ceftriaxone, will change patient to ertapenem 1 g daily. We will continue to follow. (2) Escherichia coli infection: (3) Klebsiella infection: Review of Systems Review of Systems: All systems reviewed & are unremarkable except as noted in HPI & below Physical Exam Constitutional: WD/WN, vitals as above comfortable; no acute distress Eyes: PERRL, conjunctivae normal, anicteric sclerae ENMT: external ear and nose normal, oropharynx normal Neck: trachea midline, no thyromegaly neck nontender Respiratory: normal respiratory effort, lungs clear to auscultation no labored breathing and does not use accessory muscles Cardiovascular: Rate/Rhythm: regular rate and regular rhythm Heart Sounds: normal S1 and normal S2; no gallop, no murmur and no cardiac rub Vessels: normal peripheral pulses; no JVD Gastrointestinal (Abdomen): Inspection/Auscultation: + abdomen distended and + abdominal surgical incision (There is intact); + abnormal bowel sounds (No bowel sounds present) Percussion/Palpation: + abdomen tender (Mild diffuse without rebound or guarding); no hepatosplenomegaly Musculoskeletal: no cyanosis or clubbing, extremities motor strength 5/5 Spine: thoracic spine normal to inspection and lumbar spine normal to inspection; no cervical spinal tenderness Skin: no rashes, warm and dry normal turgor and + wound (Wound dressing intact) Neurologic: patellar DTR's 2+ bilat, sensation intact no focal motor deficits Psychiatric: A+Ox3, euthymic affect Orientation: cooperative Lymphatic: no cervical or axillary lymphadenopathy no inguinal lymphadenopathy Results & Data Vital Signs (Past 12 Hours) Vital Signs Temp Pulse Resp BP Pulse Ox 05/26/19 11:40 36.6 C 64 18 166/66 H 95 05/26/19 07:53 36.6 C 60 19 138/74 96 05/26/19 04:30 37.1 C 60 20 142/69 H 97 PG Care Time/CCT Total # of Minutes Spent Total Time Spent with Patient: Total time spent is greater than 50% in coordination of care (as documented) at patient's floor/unit and/or counseling patient:
--- NOTE | 2019-05-26 13:08 | Infectious Disease Progress Nt ---
Date of Service May 26, 2019 Assessment & Plan (1) Acute appendicitis with generalized peritonitis: Patient with perforated appendix, with subsequent diffuse peritonitis status post open with cultures growing E. coli, Klebsiella, and Citrobacter. Given resistance of Citrobacter to ceftriaxone, marr to ertapenem 1 g daily. Likely will require a few more days of IV therapy. We will continue to follow. (2) Escherichia coli infection: (3) Klebsiella infection: Subjective Patient seen in follow-up for perforated appendix with peritonitis. Feeling much better today, much less abdominal pain, no nausea. Remains afebrile. Tolerating ertapenem without apparent difficulty. Review of Systems Review of Systems: All systems reviewed & are unremarkable except as noted in HPI & below Physical Exam Constitutional: WD/WN, vitals as above comfortable; no acute distress Eyes: PERRL, conjunctivae normal, anicteric sclerae ENMT: external ear and nose normal, oropharynx normal Neck: trachea midline, no thyromegaly neck nontender Respiratory: normal respiratory effort, lungs clear to auscultation normal percussion; does not use accessory muscles Cardiovascular: Rate/Rhythm: regular rate and regular rhythm Heart Sounds: normal S1 and normal S2; no gallop, no murmur and no cardiac rub Vessels: normal peripheral pulses; no JVD Gastrointestinal (Abdomen): Inspection/Auscultation: abdomen normal to inspection and + hyperactive bowel sounds Percussion/Palpation: abdomen nontender, no hepatosplenomegaly and no abdominal mass Musculoskeletal: no cyanosis or clubbing, extremities motor strength 5/5 Spine: thoracic spine normal to inspection and lumbar spine normal to inspection; no cervical spinal tenderness Skin: no rashes, warm and dry normal turgor and + wound (Appears to be healing appropriately); no lesions Neurologic: patellar DTR's 2+ bilat, sensation intact no focal motor deficits Psychiatric: A+Ox3, euthymic affect Orientation: cooperative Lymphatic: no cervical or axillary lymphadenopathy no inguinal lymphadenopathy Results & Data Vital Signs (Past 12 Hours) Vital Signs Temp Pulse Resp BP Pulse Ox 05/26/19 11:40 36.6 C 64 18 166/66 H 95 05/26/19 07:53 36.6 C 60 19 138/74 96 05/26/19 04:30 37.1 C 60 20 142/69 H 97 Laboratory Results Short CBC 05/26/19 Range/Units 05:50 WBC 10.04 (4.8-10.8) K/uL Hgb 10.9 L (14.0-18.0) g/dL Hct 32.9 L (42-52) % Plt Count 148 (130-400) K/uL BMP 05/25/19 05/25/19 05/26/19 16:14 16:14 05:50 Sodium 143 144 Potassium Cancelled 3.9 3.5 Chloride 108 H 109 H Carbon Dioxide 28 27 BUN 26 H 25 H Creatinine 1.32 1.32 Glucose 96 82 Calcium 7.6 L 7.5 L Diagnostic Findings Microbiology 05/25/19 09:43 Blood Aerobic Blood Culture - Preliminary No growth in Aerobic bottle after 24 hours. 05/25/19 09:43 Blood Anaerobic Blood Culture - Preliminary No growth in Anaerobic bottle after 24 hours. 05/25/19 09:45 Blood Aerobic Blood Culture - Preliminary No growth in Aerobic bottle after 24 hours. 05/25/19 09:45 Blood Anaerobic Blood Culture - Preliminary No growth in Anaerobic bottle after 24 hours. 05/25/19 09:43 Blood Fungal Smear - Final 05/22/19 20:30 Peritoneal Fluid Gram Stain - Final 05/22/19 20:30 Peritoneal Fluid Aerobic and Anaerobic Culture - Preliminary Escherichia coli Klebsiella pneumoniae Citrobacter amalonaticus Bacteroides fragilis group 05/22/19 20:30 Urine,Indwelling Cath Urine Culture - Final No growth - less than 1,000 colonies/mL. PG Care Time/CCT Total # of Minutes Spent Total Time Spent with Patient: Total time spent is greater than 50% in coordination of care (as documented) at patient's floor/unit and/or counseling patient:
[2019-05-26] MEDS: NORMOSOL-R 1,000 ML IV SCH (15:24)
[2019-05-26] MEDS: ATORVASTATIN 10 MG TAB PO SCH (20:17)
[2019-05-26] MEDS: TERAZOSIN HCL 5 MG CAP PO SCH (20:17)
[2019-05-27 05:46] LABS: Basophils # (auto) 0.02 K/uL (0-0.2); Basophils % (auto) 0.2 %; Eosinophils # (auto) 0.35 K/uL (0-0.5); Hematocrit (blood only) 33.3 % (42-52); Hemoglobin 11.2 g/dL (14.0-18.0); Immature Granulocytes # (auto) 0.02 K/uL (0.00-0.02); Immature Granulocytes % (auto) 0.2 %; Lymphocytes # (auto) 0.94 K/uL (1.2-3.4); Lymphocytes % (auto) 10.8 %; Mean Corpuscular Hemoglobin 31.7 pg (25-34); Mean Corpuscular Hgb Conc 33.6 g/dL (32-36); Mean Corpuscular Volume 94.3 fL (80-100); Mean Platelet Volume 11.7 fL (7.4-10.4); Monocytes # (auto) 0.94 K/uL (0.11-0.59); Monocytes % (auto) 10.8 %; Neutrophils # (auto) 6.43 K/uL (1.4-6.5); Platelet Count 150 K/uL (130-400); RDW Coefficient of Variation 14.1 % (11.5-14.5); RDW Standard Deviation 48.7 fL (36.4-46.3); Red Blood Count 3.53 M/uL (4.7-6.1)
[2019-05-27] MEDS: HEPARIN SOD 5,000 UNIT/0.5 ML VIAL SQ SCH ×3 (05:50→21:06)
[2019-05-27] MEDS: LEVOTHYROXINE SODIUM 112 MCG TABLET PO SCH (05:50)
[2019-05-27 06:21] LABS: BUN Creatinine Ratio 23.8 (10-20); Calcium 7.4 mg/dl (8.5-10.1); Creatinine Clr Calc Pharmacy 66.5 ml/min; Est GFR (African American) 71.3; Est GFR (Non-African American) 61.5; Potassium 3.6 mmol/L (3.5-5.1)
[2019-05-27] MEDS: ALLOPURINOL 300 MG TAB PO SCH (08:09)
[2019-05-27] MEDS: CHOLECALCIFEROL 1,000 UNITS TAB PO SCH (08:09)
[2019-05-27] MEDS: AMLODIPINE BESYLATE 5 MG TAB PO SCH (08:09)
[2019-05-27] MEDS: FAMOTIDINE 20 MG in SYRINGE 3 ML IV SCH (08:09)
[2019-05-27] MEDS: CITALOPRAM 20 MG TAB PO SCH (08:10)
[2019-05-27] MEDS: FLUCONAZOLE 200 MG/5 ML UDP PO SCH (08:11)
[2019-05-27] MEDS: carvediloL 3.125 MG TAB PO SCH ×2 (08:11→21:06)
[2019-05-27] MEDS ORDERED: BISACODYL 10 MG SUPP PR STA (09:16)
--- NOTE | 2019-05-27 09:45 | Surgery Progress Note ---
Date of Service May 27, 2019 Assessment & Plan (1) Acute appendicitis with generalized peritonitis: POD # 4 s/p open ileocectomy. Pus was throughout abdomen/ friable bowel. Would expect ileus and delayed return of bowel function. -Afebrile vital signs stable, afebrile, HTN improved today -Leukocytosis resolved -Abdomen less distended today, soft - passing flatus -Peritoneal fluid culture showing E. coli, Klebsiella pneumoniae, Citrobacter and Bacteroides. Citrobacter resistant to ceftriaxone. Antibiotics switched to ertapenem. Infectious disease following Plan: Clear liquids, advised pt to take slowly Continue IV fluids , change to 1/2 NS + 20 kcl @ 50 mls/hr Discontinue Briceno Dulcolax suppository Continue IV morphine , PO Percocet as needed for pain Continue oral meds per medicine Continue IV ertapenem, appreciate infectious disease recommendations Continue IV Zofran as needed Continue subcu heparin and SCDs for DVT prophylaxis Out of bed to chair and continue PT/OT Repeat a.m. labs including CBC and BMP Dr. Healy was present during my examination and agrees with above Subjective sitting up in chair at bedside when entering room states he is feeling pretty good today some mild abdominal pain but not severe no nausea or vomiting Nursing staff states NGT removed accidentally last night. Has not had any nausea , vomiting, or pain since NGT removed. passing flatus, no bowel movement PT got patient to chair yesterday has not ambulated Physical Exam Constitutional: WD/WN, vitals as above + obese; no acute distress Respiratory: no respiratory distress and no labored breathing Gastrointestinal (Abdomen): Inspection/Auscultation: abdomen normal to inspection and + abdomen distended (very mild); + abnormal bowel sounds Percussion/Palpation: abdomen soft; abdomen nontender, no guarding and abdomen not rigid Skin: no rashes, warm and dry + incision (Covered with dry dressing) Psychiatric: A+Ox3, euthymic affect Results & Data Vital Signs (Past 12 Hours) Vital Signs Temp Pulse Pulse Pulse Resp BP Pulse Ox 05/27/19 07:14 36.8 C 60 20 178/76 H 95 05/27/19 03:50 37.5 C 54 L 18 178/82 H 91 05/27/19 00:52 37.2 C 58 L 21 142/64 H 90 05/27/19 00:00 73 Laboratory Results 05/27/19 05/27/19 Range/Units 05:27 05:27 WBC 8.70 (4.8-10.8) K/uL RBC 3.53 L (4.7-6.1) M/uL Hgb 11.2 L (14.0-18.0) g/dL Hct 33.3 L (42-52) % MCV 94.3 (80-100) fL MCH 31.7 (25-34) pg MCHC 33.6 (32-36) g/dL RDW Std Deviation 48.7 H (36.4-46.3) fL RDW Coeff of [place] 14.1 (11.5-14.5) % Plt Count 150 (130-400) K/uL MPV 11.7 H (7.4-10.4) fL Immature Gran % (Auto) 0.2 % Neut % (Auto) 74.0 % Lymph % (Auto) 10.8 % [place] % (Auto) 10.8 % Eos % (Auto) 4.0 % Baso % (Auto) 0.2 % Immature Gran # (Auto) 0.02 (0.00-0.02) K/uL Neut # (Auto) 6.43 (1.4-6.5) K/uL Lymph # (Auto) 0.94 L (1.2-3.4) K/uL [place] # (Auto) 0.94 H (0.11-0.59) K/uL Eos # (Auto) 0.35 (0-0.5) K/uL Baso # (Auto) 0.02 (0-0.2) K/uL Sodium 144 (136-145) mmol/L Potassium 3.6 (3.5-5.1) mmol/L Chloride 108 H (98-107) mmol/L Carbon Dioxide 28 (21-32) mmol/L Anion Gap 8.0 (3-11) BUN 27 H (7-18) mg/dl Creatinine 1.13 (0.6-1.4) mg/dl Est Cr Clr Drug Dosing 66.5 ml/min Est GFR ( Amer) 71.3 Est GFR (Non-Af Amer) 61.5 BUN/Creatinine Ratio 23.8 H (10-20) Glucose 71 (70-99) mg/dl Calcium 7.4 L (8.5-10.1) mg/dl Diagnostic Findings FINAL DIAGNOSIS A. CECUM AND TERMINAL ILEUM, ILEOCECECTOMY: - EXUDATIVE ACUTE APPENDICITIS WITH PERFORATION - BENIGN COLONIC AND ILEAL MUCOSA WITH SUPERFICIAL SEROSITIS - NEGATIVE FOR MALIGNANCY B. SMALL BOWEL, RESECTION: - BENIGN SMALL BOWEL MUCOSA WITH SUPERFICIAL SEROSITIS - SMALL FRAGMENT OF UNREMARKABLE COLONIC MUCOSA - NEGATIVE FOR MALIGNANCY
[2019-05-27] MEDS: SODIUM CHLOR 0.45% + 20MEQ KCL 20 MEQ/1,000 ML BAG IV SCH (10:16)
[2019-05-27] MEDS: NORMOSOL-R 1,000 ML IV SCH (10:16)
[2019-05-27] MEDS: ERTAPENEM SODIUM 1,000 MG in SODIUM CHLORIDE 0.9% 50 ML IV SCH (10:17)
[2019-05-27 12:40] LABS: Appearance Urine Clear (Clear); Bilirubin Urine Negative (Negative); Blood Urine 3+ (Negative); Color Urine Orange; Epithelial Cell Urine Auto >30 /lpf (0-5); Glucose Urine UA Negative (Negative); Ketones Urine Trace (Negative); Leukocyte Esterase Urine Trace (Negative); Nitrite Urine Negative (Negative); Protein Urine 2+ (Negative); RBC Urine Automated >30 /hpf (0-4); Urobilinogen Urine Negative (Negative)
[2019-05-27 13:21] LABS: Bacteria Urine Automated 1+ (Negative)
--- NOTE | 2019-05-27 18:40 | Hospitalist Progress Note ---
Date of Service May 27, 2019 Assessment & Plan (1) Acute appendicitis with generalized peritonitis: ASSESSMENT AND PLAN: This is a 79-year-old male who presents with abdominal pain of 1-day duration, found to have acute appendicitis on CAT scan. 1. Acute appendicitis/peritonitis, started with laparoscopic appendectomy which was converted to open ileocecectomy, found to have pus throughout abdomen and friable bowel. - POD#4 - Peritoneal fluid culture (05/22/2019) + for E. coli, Klebsiella pneumoniae, Citrobacter amalonaticus and Bacteroides fragilis group (Citrobacter resistant to ceftriaxone) - ID consulted,switched from IV Zosyn to Ertapenem - Pathology A. CECUM AND TERMINAL ILEUM, ILEOCECECTOMY: - EXUDATIVE ACUTE APPENDICITIS WITH PERFORATION - BENIGN COLONIC AND ILEAL MUCOSA WITH SUPERFICIAL SEROSITIS - NEGATIVE FOR MALIGNANCY B. SMALL BOWEL, RESECTION: - BENIGN SMALL BOWEL MUCOSA WITH SUPERFICIAL SEROSITIS - SMALL FRAGMENT OF UNREMARKABLE COLONIC MUCOSA - NEGATIVE FOR MALIGNANCY -Started on clear liquid diet today (05/27), per surgery -Passing flatus, no BM yet, started on dulcolax suppository 2. History of diastolic congestive heart failure, not on diuretics at home, - continue Coreg, lisinopril on hold for now, plan to resume upon discharge - Monitor for any volume overload 3. Hypertension - resumed coreg, amlodipine, terazosin - holding lisinopril - hydralazine prn - IV Lopressor p.r.n. - will cont. to monitor the blood pressure 4. Gastroesophageal reflux disease -on Prilosec at home, we will place on IV Pepcid. 5. Gout - cont. home allopurinol 6. Hyperlipidemia - cont. home atorvastatin 7. History of depression - cont. home Celexa 8. History of obstructive sleep apnea, CPAP at night 9. Hypothyroidism - cont. home levothyroxine 10. Recent diagnosis of monoclonal paraproteinemia. s/p Bone marrow biopsy. - Recent PET scan unremarkable. - Hematology/oncology currently observing. DVT prophylaxis: heparin subq and SCDs Disposition: downgraded from ICU, likely SNF after d/c from hospital Subjective No acute events overnight. Patient is an elderly obese male, lying in bed in no acute distress. Patient denies any fevers, chills, chest pain, shortness of alisson ath, only very mild abdominal pain, says it is much better now after surgery. Supplemental O2 provided, patient speaks in full sentences, no dyspnea. Review of Systems Review of Systems: All systems reviewed & are unremarkable except as noted in HPI & below Constitutional: no fever and no chills Respiratory: no cough, no chest congestion, no dyspnea and no pain on inspiration Cardiovascular: no chest pain, no palpitations and no edema Gastrointestinal: + abdominal pain (Only very mild, which is expected post surg.); no nausea and no vomiting Physical Exam Constitutional: well developed and well nourished; no acute distress Eyes: PERRL, conjunctivae normal, anicteric sclerae EOM intact bilaterally ENMT: external ear and nose normal, oropharynx normal Neck: normal visual inspection Respiratory: normal respiratory effort, lungs clear to auscultation Auscultation: no wheezes Cardiovascular: RRR, no murmur, no edema Heart Sounds: no gallop Vessels: normal peripheral pulses; no JVD Chest (Breasts): Chest: normal inspection of chest Gastrointestinal (Abdomen): Inspection/Auscultation: abdomen normal to inspection and normal bowel sounds; abdomen not distended Percussion/Palpation: + abdomen tender (Only very mild tenderness to palpation) and abdomen soft; no guarding and abdomen not rigid Musculoskeletal: Head/Neck/Chest: normocephalic, head atraumatic and neck supple Extremities: extremities normal to inspection Skin: no rashes, warm and dry Neurologic: PERRL, EOMI, accommodation nl, no face palsy, no dysarthria moves all extremities Psychiatric: A+Ox3, euthymic affect Lymphatic: no lymphedema Results & Data Vital Signs (Past 12 Hours) Vital Signs Temp Pulse Resp BP Pulse Ox 05/27/19 15:01 36.6 C 65 18 167/75 H 90 05/27/19 11:42 36.7 C 65 20 184/66 H 95 05/27/19 07:14 36.8 C 60 20 178/76 H 95 Laboratory Results 05/27/19 05/27/19 05/27/19 Range/Units 12:08 05:27 05:27 WBC 8.70 (4.8-10.8) K/uL RBC 3.53 L (4.7-6.1) M/uL Hgb 11.2 L (14.0-18.0) g/dL Hct 33.3 L (42-52) % MCV 94.3 (80-100) fL MCH 31.7 (25-34) pg MCHC 33.6 (32-36) g/dL RDW Std Deviation 48.7 H (36.4-46.3) fL RDW Coeff of [place] 14.1 (11.5-14.5) % Plt Count 150 (130-400) K/uL MPV 11.7 H (7.4-10.4) fL Immature Gran % (Auto) 0.2 % Neut % (Auto) 74.0 % Lymph % (Auto) 10.8 % [place] % (Auto) 10.8 % Eos % (Auto) 4.0 % Baso % (Auto) 0.2 % Immature Gran # (Auto) 0.02 (0.00-0.02) K/uL Neut # (Auto) 6.43 (1.4-6.5) K/uL Lymph # (Auto) 0.94 L (1.2-3.4) K/uL [place] # (Auto) 0.94 H (0.11-0.59) K/uL Eos # (Auto) 0.35 (0-0.5) K/uL Baso # (Auto) 0.02 (0-0.2) K/uL Sodium 144 (136-145) mmol/L Potassium 3.6 (3.5-5.1) mmol/L Chloride 108 H (98-107) mmol/L Carbon Dioxide 28 (21-32) mmol/L Anion Gap 8.0 (3-11) BUN 27 H (7-18) mg/dl Creatinine 1.13 (0.6-1.4) mg/dl Est Cr Clr Drug Dosing 66.5 ml/min Est GFR ( Amer) 71.3 Est GFR (Non-Af Amer) 61.5 BUN/Creatinine Ratio 23.8 H (10-20) Glucose 71 (70-99) mg/dl Calcium 7.4 L (8.5-10.1) mg/dl Urine Color [place] Urine Appearance Clear (Clear) Urine pH 5.0 (4.5-7.5) Ur Specific [place] 1.030 (1.000-1.030) Urine Protein 2+ H (Negative) Urine Glucose (UA) Negative (Negative) Urine Ketones Trace H (Negative) Urine Blood 3+ H (Negative) Urine Nitrite Negative (Negative) Urine Bilirubin Negative (Negative) Urine Urobilinogen Negative (Negative) Ur Leukocyte Esterase Trace H (Negative) Urine WBC (Auto) 10-30 H (0-5) /hpf Urine RBC (Auto) >30 H (0-4) /hpf U Hyaline Cast (Auto) 1-5 (0-5) /lpf U Epithel Cells (Auto) >30 H (0-5) /lpf Urine Bacteria (Auto) 1+ H (Negative) Ur Renal Epithelial Cell Not Reportable Medications Administered Current Inpatient Medications Acetaminophen (Tylenol) 650 mg PO Q4H PRN PRN Reason: Fever/Mild Pain (Pain 1,2,3) Stop: 06/24/19 09:09 Last Admin: 05/27/19 13:53 Dose: 650 mg Documented by: Allopurinol (Zyloprim) 300 mg PO [facility] Stop: 06/25/19 08:59 Last Admin: 05/27/19 08:09 Dose: 300 mg Documented by: Amlodipine Besylate (Norvasc) 10 mg PO [facility] Stop: 06/24/19 09:29 Last Admin: 05/27/19 08:09 Dose: 10 mg Documented by: Atorvastatin Calcium (Lipitor) 5 mg PO [facility] Stop: 06/24/19 20:59 Last Admin: 05/26/19 20:17 Dose: Not Given Documented by: Carvedilol (Coreg) 3.125 mg PO BID [facility] Stop: 06/24/19 09:29 Last Admin: 05/27/19 08:11 Dose: 3.125 mg Documented by: Citalopram Hydrobromide (Celexa) 20 mg PO [facility] Stop: 06/24/19 13:59 Last Admin: 05/27/19 08:10 Dose: 20 mg Documented by: Famotidine (Pepcid) 20 mg PO BID [facility] Stop: 06/26/19 20:59 Fluconazole (Diflucan) 200 mg PO [facility] Stop: 06/04/19 09:29 Last Admin: 05/27/19 08:11 Dose: 200 mg Documented by: Heparin Sodium (Porcine) (Heparin Sodium (Porcine)) 5,000 units SQ Q8 [facility] Stop: 06/23/19 13:59 Last Admin: 05/27/19 13:54 Dose: 5,000 units Documented by: Hydralazine HCl (Hydralazine Hcl) 10 mg IV Q6H PRN PRN Reason: Hypertension Stop: 06/22/19 19:17 Last Admin: 05/25/19 01:28 Dose: 10 mg Documented by: Ertapenem 1,000 mg/ Sodium (Chloride) 60 mls @ 100 mls/hr IV Q24H [facility]; Protocol Stop: 06/04/19 09:59 Last Infusion: 05/27/19 10:54 Dose: Infused Documented by: Ondansetron HCl 8 mg/ Dextrose 54 mls @ 200 mls/hr IV Q4H PRN PRN Reason: Nausea And Vomiting Stop: 06/24/19 15:10 Last Infusion: 05/25/19 16:30 Dose: Infused Documented by: Potassium Chloride/Sodium Chloride (1/2 Nss + 20meq Kcl 1000ml) 20 meq in 1,000 mls @ 50 mls/hr IV .Q20H [facility] Stop: 06/26/19 09:29 Last Admin: 05/27/19 10:16 Dose: 50 mls/hr Documented by: Levothyroxine Sodium (Synthroid) 112 mcg PO DAILYBB [facility] Stop: 06/25/19 06:29 Last Admin: 05/27/19 05:50 Dose: 112 mcg Documented by: Metoprolol Tartrate (Lopressor) 5 mg IV Q4 PRN PRN Reason: Tachycardia Stop: 06/22/19 00:00 Last Admin: 05/24/19 19:51 Dose: 5 mg Documented by: Morphine Sulfate (Morphine Sulfate) 1 mg IV Q2H PRN PRN Reason: Mild Pain Stop: 06/08/19 11:29 Morphine Sulfate (Morphine Sulfate) 2 mg IV Q2H PRN PRN Reason: Moderate Pain Stop: 06/08/19 11:29 Last Admin: 05/26/19 23:59 Dose: 2 mg Documented by: Morphine Sulfate (Morphine Sulfate) 4 mg IV Q2H PRN PRN Reason: Severe Pain Stop: 06/08/19 11:29 Oxycodone HCl (Roxicodone Immediate Rel) 5 mg PO Q6H PRN PRN Reason: Moderate Pain (4,5,6) Stop: 06/08/19 09:09 Last Admin: 05/27/19 13:54 Dose: 5 mg Documented by: Oxycodone HCl (Roxicodone Immediate Rel) 10 mg PO Q6H PRN PRN Reason: Severe Pain (7,8,9,10) Stop: 06/08/19 09:09 Terazosin HCl (Hytrin) 5 mg PO [facility] Stop: 06/24/19 20:59 Last Admin: 05/26/19 20:17 Dose: Not Given Documented by: Vitamin D (Vitamin D3) 2,000 units PO [facility] Stop: 06/25/19 08:59 Last Admin: 05/27/19 08:09 Dose: 2,000 units Documented by:
[2019-05-27 18:41] LABS: Fungitell (1-3)-B-D-Glucan <31 pg/mL
[2019-05-27] MEDS: FAMOTIDINE 20 MG TAB PO SCH (21:05)
[2019-05-27] MEDS: TERAZOSIN HCL 5 MG CAP PO SCH (21:06)
[2019-05-27] MEDS: ATORVASTATIN 10 MG TAB PO SCH (21:06)
[2019-05-28] MEDS: ONDANSETRON HCL 8 MG in DEXTROSE 5% 50 ML IV PRN ×2 (04:42→12:15)
[2019-05-28 05:44] LABS: Basophils # (auto) 0.02 K/uL (0-0.2); Basophils % (auto) 0.2 %; Eosinophils % (auto) 3.7 %; Hematocrit (blood only) 31.8 % (42-52); Hemoglobin 10.8 g/dL (14.0-18.0); Immature Granulocytes # (auto) 0.04 K/uL (0.00-0.02); Immature Granulocytes % (auto) 0.5 %; Lymphocytes # (auto) 0.72 K/uL (1.2-3.4); Lymphocytes % (auto) 8.8 %; Mean Corpuscular Hemoglobin 31.7 pg (25-34); Mean Corpuscular Volume 93.3 fL (80-100); Mean Platelet Volume 11.3 fL (7.4-10.4); Monocytes # (auto) 0.93 K/uL (0.11-0.59); Monocytes % (auto) 11.4 %; Neutrophils # (auto) 6.14 K/uL (1.4-6.5); Neutrophils % (auto) 75.4 %; Platelet Count 166 K/uL (130-400); RDW Standard Deviation 47.7 fL (36.4-46.3); Red Blood Count 3.41 M/uL (4.7-6.1); White Blood Count 8.15 K/uL (4.8-10.8)
[2019-05-28 06:21] LABS: BUN Creatinine Ratio 19.4 (10-20); Calcium 7.6 mg/dl (8.5-10.1); Creatinine Clr Calc Pharmacy 68.3 ml/min; Est GFR (Non-African American) 62.1; Potassium 3.4 mmol/L (3.5-5.1)
[2019-05-28] MEDS: SODIUM CHLOR 0.45% + 20MEQ KCL 20 MEQ/1,000 ML BAG IV SCH (06:23)
[2019-05-28] MEDS: HEPARIN SOD 5,000 UNIT/0.5 ML VIAL SQ SCH ×3 (06:24→21:15)
[2019-05-28] MEDS: LEVOTHYROXINE SODIUM 112 MCG TABLET PO SCH (06:24)
[2019-05-28] MEDS: ALLOPURINOL 300 MG TAB PO SCH (08:12)
[2019-05-28] MEDS: FLUCONAZOLE 200 MG/5 ML UDP PO SCH (08:12)
[2019-05-28] MEDS: CHOLECALCIFEROL 1,000 UNITS TAB PO SCH (08:12)
[2019-05-28] MEDS: CITALOPRAM 20 MG TAB PO SCH (08:12)
[2019-05-28] MEDS: carvediloL 3.125 MG TAB PO SCH ×2 (08:13→21:17)
[2019-05-28] MEDS: AMLODIPINE BESYLATE 5 MG TAB PO SCH (08:13)
[2019-05-28] MEDS: FAMOTIDINE 20 MG TAB PO SCH ×2 (08:13→21:16)
--- NOTE | 2019-05-28 09:45 | Hospitalist Progress Note ---
Date of Service May 28, 2019 Assessment & Plan (1) Acute appendicitis with generalized peritonitis: ASSESSMENT AND PLAN: This is a 79-year-old male who presents with abdominal pain of 1-day duration, found to have acute appendicitis on CAT scan. 1. Acute appendicitis/peritonitis, started with laparoscopic appendectomy which was converted to open ileocecectomy, found to have pus throughout abdomen and friable bowel. - POD#5 - Peritoneal fluid culture (05/22/2019) + for E. coli, Klebsiella pneumoniae, Citrobacter amalonaticus and Bacteroides fragilis group (Citrobacter resistant to ceftriaxone) - ID consulted,switched from IV Zosyn to Ertapenem - Pathology A. CECUM AND TERMINAL ILEUM, ILEOCECECTOMY: - EXUDATIVE ACUTE APPENDICITIS WITH PERFORATION - BENIGN COLONIC AND ILEAL MUCOSA WITH SUPERFICIAL SEROSITIS - NEGATIVE FOR MALIGNANCY B. SMALL BOWEL, RESECTION: - BENIGN SMALL BOWEL MUCOSA WITH SUPERFICIAL SEROSITIS - SMALL FRAGMENT OF UNREMARKABLE COLONIC MUCOSA - NEGATIVE FOR MALIGNANCY -Started on clear liquid diet today (05/27), per surgery no advancing to full l iquid -Had BM yesterday and this AM, dulcolax suppository prn 2. History of diastolic congestive heart failure, not on diuretics at home, - continue Coreg, lisinopril on hold for now, plan to resume upon discharge - Monitor for any volume overload 3. Hypertension - resumed coreg, amlodipine, terazosin - holding lisinopril - hydralazine prn - IV Lopressor p.r.n. - will cont. to monitor the blood pressure 4. Gastroesophageal reflux disease -on Prilosec at home, we will place on IV Pepcid. 5. Gout - cont. home allopurinol 6. Hyperlipidemia - cont. home atorvastatin 7. History of depression - cont. home Celexa 8. History of obstructive sleep apnea, CPAP at night 9. Hypothyroidism - cont. home levothyroxine 10. Recent diagnosis of monoclonal paraproteinemia. s/p Bone marrow biopsy. - Recent PET scan unremarkable. - Hematology/oncology currently observing. DVT prophylaxis: heparin subq and SCDs Disposition: downgraded from ICU, likely SNF after d/c from hospital Subjective No acute events overnight. Patient is an elderly obese male, lying in bed in no acute distress. Patient denies any fevers, chills, chest pain, shortness of breath, only very mild abdominal pain. Patient had bowel movement yesterday and this morning. He is tolerating p.o. intake, he is going to try to eat ice cream today. [id number] at the bedside, updated on current status. Review of Systems Review of Systems: All systems reviewed & are unremarkable except as noted in HPI & below Constitutional: no fever, no chills and no fatigue Respiratory: no cough, no dyspnea and no pain on inspiration Cardiovascular: no chest pain, no palpitations and no edema Gastrointestinal: + abdominal pain (Only very mild, which is expected post surg.); no nausea and no vomiting Physical Exam Physical Exam: Elderly obese male sitting up in the bed, in no acute distress, appears comfortable Constitutional: well developed and well nourished; no acute distress Eyes: PERRL, conjunctivae normal, anicteric sclerae EOM intact bilaterally ENMT: external ear and nose normal, oropharynx normal Neck: normal visual inspection Respiratory: normal respiratory effort, lungs clear to auscultation Auscultation: no wheezes Cardiovascular: RRR, no murmur, no edema Heart Sounds: no gallop Ves sels: normal peripheral pulses; no JVD Chest (Breasts): Chest: normal inspection of chest Gastrointestinal (Abdomen): Inspection/Auscultation: normal bowel sounds; abdomen not distended Percussion/Palpation: + abdomen tender (Only very mild tenderness to palpation) and abdomen soft; no guarding and abdomen not rigid + post. surg.midline incision with suhas and wound packing Musculoskeletal: Head/Neck/Chest: normocephalic, head atraumatic and neck supple Extremities: extremities normal to inspection Skin: no rashes, warm and dry Neurologic: PERRL, EOMI, accommodation nl, no face palsy, no dysarthria moves all extremities Psychiatric: A+Ox3, euthymic affect Lymphatic: no lymphedema Results & Data Vital Signs (Past 12 Hours) Vital Signs Temp Pulse Resp BP Pulse Ox 05/28/19 07:13 37.0 C 66 20 143/70 H 95 05/28/19 03:51 37.3 C 67 18 165/82 H 95 05/27/19 23:39 37.4 C 66 20 162/76 H 90 Laboratory Results 05/28/19 05/28/19 05/27/19 Range/Units 05:26 05:26 12:08 WBC 8.15 (4.8-10.8) K/uL RBC 3.41 L (4.7-6.1) M/uL Hgb 10.8 L (14.0-18.0) g/dL Hct 31.8 L (42-52) % MCV 93.3 (80-100) fL MCH 31.7 (25-34) pg MCHC 34.0 (32-36) g/dL RDW Std Deviation 47.7 H (36.4-46.3) fL RDW Coeff of Nunu 14.0 (11.5-14.5) % Plt Count 166 (130-400) K/uL MPV 11.3 H (7.4-10.4) fL Immature Gran % (Auto) 0.5 % Neut % (Auto) 75.4 % Lymph % (Auto) 8.8 % Lamb % (Auto) 11.4 % Eos % (Auto) 3.7 % Baso % (Auto) 0.2 % Immature Gran # (Auto) 0.04 H (0.00-0.02) K/uL Neut # (Auto) 6.14 (1.4-6.5) K/uL Lymph # (Auto) 0.72 L (1.2-3.4) K/uL Lamb # (Auto) 0.93 H (0.11-0.59) K/uL Eos # (Auto) 0.30 (0-0.5) K/uL Baso # (Auto) 0.02 (0-0.2) K/uL Sodium 140 (136-145) mmol/L Potassium 3.4 L (3.5-5.1) mmol/L Chloride 105 (98-107) mmol/L Carbon Dioxide 30 (21-32) mmol/L Anion Gap 5.0 (3-11) BUN 22 H (7-18) mg/dl Creatinine 1.12 (0.6-1.4) mg/dl Est Cr Clr Drug Dosing 68.3 ml/min Est GFR ( Amer) 72.0 Est GFR (Non-Af Amer) 62.1 BUN/Creatinine Ratio 19.4 (10-20) Glucose 103 H (70-99) mg/dl Calcium 7.6 L (8.5-10.1) mg/dl Urine Color Amo Urine Appearance Clear (Clear) Urine pH 5.0 (4.5-7.5) Ur Specific [place] 1.030 (1.000-1.030) Urine Protein 2+ H (Negative) Urine Glucose (UA) Negative (Negative) Urine Ketones Trace H (Negative) Urine Blood 3+ H (Negative) Urine Nitrite Negative (Negative) Urine Bilirubin Negative (Negative) Urine Urobilinogen Negative (Negative) Ur Leukocyte Esterase Trace H (Negative) Urine WBC (Auto) 10-30 H (0-5) /hpf Urine RBC (Auto) >30 H (0-4) /hpf U Hyaline Cast (Auto) 1-5 (0-5) /lpf U Epithel Cells (Auto) >30 H (0-5) /lpf Urine Bacteria (Auto) 1+ H (Negative) Ur Renal Epithelial Cell Not Reportable Beta-(1,3)-D-Glucan pg/mL B-(1,3)-D-Glucan Intrp 05/25/19 Range/Units 09:43 WBC (4.8-10.8) K/uL RBC (4.7-6.1) M/uL Hgb (14.0-18.0) g/dL Hct (42-52) % MCV (80-100) fL MCH (25-34) pg MCHC (32-36) g/dL RDW Std Deviation (36.4-46.3) fL RDW Coeff of Nunu (11.5-14.5) % Plt Count (130-400) K/uL MPV (7.4-10.4) fL Immature Gran % (Auto) % Neut % (Auto) % Lymph % (Auto) % Lamb % (Auto) % Eos % (Auto) % Baso % (Auto) % Immature Gran # (Auto) (0.00-0.02) K/uL Neut # (Auto) (1.4-6.5) K/uL Lymph # (Auto) (1.2-3.4) K/uL Lamb # (Auto) (0.11-0.59) K/uL Eos # (Auto) (0-0.5) K/uL Baso # (Auto) (0-0.2) K/uL Sodium (136-145) mmol/L Potassium (3.5-5.1) mmol/L Chloride (98-107) mmol/L Carbon Dioxide (21-32) mmol/L Anion Gap (3-11) BUN (7-18) mg/dl Creatinine (0.6-1.4) mg/dl Est Cr Clr Drug Dosing ml/min Est GFR ( Amer) Est GFR (Non-Af Amer) BUN/Creatinine Ratio (10-20) Glucose (70-99) mg/dl Calcium (8.5-10.1) mg/dl Urine Color Urine Appearance (Clear) Urine pH (4.5-7.5) Ur Specific [place] (1.000-1.030) Urine Protein (Negative) Urine Glucose (UA) (Negative) Urine Ketones (Negative) Urine Blood (Negative) Urine Nitrite (Negative) Urine Bilirubin (Negative) Urine Urobilinogen (Negative) Ur Leukocyte Esterase (Negative) Urine WBC (Auto) (0-5) /hpf Urine RBC (Auto) (0-4) /hpf U Hyaline Cast (Auto) (0-5) /lpf U Epithel Cells (Auto) (0-5) /lpf Urine Bacteria (Auto) (Negative) Ur Renal Epithelial Cell Beta-(1,3)-D-Glucan <31 pg/mL B-(1,3)-D-Glucan Intrp NEGATIVE Medications Administered Current Inpatient Medications Acetaminophen (Tylenol) 650 mg PO Q4H PRN PRN Reason: Fever/Mild Pain (Pain 1,2,3) Stop: 06/24/19 09:09 Last Admin: 05/27/19 13:53 Dose: 650 mg Documented by: [facility] Stop: 06/25/19 08:59 Last Admin: 05/28/19 08:12 Dose: 300 mg Documented by: Amlodipine Besylate (Norvasc) 10 mg PO QAM [facility] Stop: 06/24/19 09:29 Last Admin: 05/28/19 08:13 Dose: 10 mg Documented by: Atorvastatin Calcium (Lipitor) 5 mg PO [facility] Stop: 06/24/19 20:59 Last Admin: 05/27/19 21:06 Dose: 5 mg Documented by: Carvedilol (Coreg) 3.125 mg PO BID [facility] Stop: 06/24/19 09:29 Last Admin: 05/28/19 08:13 Dose: 3.125 mg Documented by: Citalopram Hydrobromide (Celexa) 20 mg PO QAM [facility] Stop: 06/24/19 13:59 Last Admin: 05/28/19 08:12 Dose: 20 mg Documented by: Famotidine (Pepcid) 20 mg PO BID [facility] Stop: 06/26/19 20:59 Last Admin: 05/28/19 08:13 Dose: 20 mg Documented by: Fluconazole (Diflucan) 200 mg PO QAM [facility] Stop: 06/04/19 09:29 Last Admin: 05/28/19 08:12 Dose: 200 mg Documented by: Heparin Sodium (Porcine) (Heparin Sodium (Porcine)) 5,000 units SQ Q8 [facility] Stop: 06/23/19 13:59 Last Admin: 05/28/19 06:24 Dose: 5,000 units Documented by: Hydralazine HCl (Hydralazine Hcl) 10 mg IV Q6H PRN PRN Reason: Hypertension Stop: 06/22/19 19:17 Last Admin: 05/25/19 01:28 Dose: 10 mg Documented by: Ertapenem 1,000 mg/ Sodium (Chloride) 60 mls @ 100 mls/hr IV Q24H [facility]; Protocol Stop: 06/04/19 09:59 Last Infusion: 05/27/19 10:54 Dose: Infused Documented by: Ondansetron HCl 8 mg/ Dextrose 54 mls @ 200 mls/hr IV Q4H PRN PRN Reason: Nausea And Vomiting Stop: 06/24/19 15:10 Last Infusion: 05/28/19 05:00 Dose: Infused Documented by: Potassium Chloride/Sodium Chloride (1/2 Nss + 20meq Kcl 1000ml) 20 meq in 1,000 mls @ 50 mls/hr IV .Q20H [facility] Stop: 06/26/19 09:29 Last Admin: 05/28/19 06:23 Dose: 50 mls/hr Documented by: Levothyroxine Sodium (Synthroid) 112 mcg PO DAILYBB [facility] Stop: 06/25/19 06:29 Last Admin: 05/28/19 06:24 Dose: 112 mcg Documented by: Metoprolol Tartrate (Lopressor) 5 mg IV Q4 PRN PRN Reason: Tachycardia Stop: 06/22/19 00:00 Last Admin: 05/24/19 19:51 Dose: 5 mg Documented by: Morphine Sulfate (Morphine Sulfate) 1 mg IV Q2H PRN PRN Reason: Mild Pain Stop: 06/08/19 11:29 Morphine Sulfate (Morphine Sulfate) 2 mg IV Q2H PRN PRN Reason: Moderate Pain Stop: 06/08/19 11:29 Last Admin: 05/26/19 23:59 Dose: 2 mg Documented by: Morphine Sulfate (Morphine Sulfate) 4 mg IV Q2H PRN PRN Reason: Severe Pain Stop: 06/08/19 11:29 Oxycodone HCl (Roxicodone Immediate Rel) 5 mg PO Q6H PRN PRN Reason: Moderate Pain (4,5,6) Stop: 06/08/19 09:09 Last Admin: 05/27/19 13:54 Dose: 5 mg Documented by: Oxycodone HCl (Roxicodone Immediate Rel) 10 mg PO Q6H PRN PRN Reason: Severe Pain (7,8,9,10) Stop: 06/08/19 09:09 Terazosin HCl (Hytrin) 5 mg PO [facility] Stop: 06/24/19 20:59 Last Admin: 05/27/19 21:06 Dose: 5 mg Documented by: Vitamin D (Vitamin D3) [facility] Stop: 06/25/19 08:59 Last Admin: 05/28/19 08:12 Dose: 2,000 units Documented by:
[2019-05-28] MEDS: ERTAPENEM SODIUM 1,000 MG in SODIUM CHLORIDE 0.9% 50 ML IV SCH (10:13)
[2019-05-28] MEDS ORDERED: POTASSIUM CHLORIDE 20 MEQ TABCR PO ONE (12:00)
--- NOTE | 2019-05-28 13:00 | Surgery Progress Note ---
Date of Service May 28, 2019 Assessment & Plan (1) Acute appendicitis with generalized peritonitis: POD # 5 s/p open ileocectomy. Pus was throughout abdomen/ friable bowel. Would expect ileus and delayed return of bowel function. -Afebrile vital signs stable, afebrile, HTN improved today - Leukocytosis resolved -Abdomen less distended today, soft - passing flatus and now positive bowel movement -Peritoneal fluid culture showing E. coli, Klebsiella pneumoniae, Citrobacter and Bacteroides. Citrobacter resistant to ceftriaxone. Antibiotics switched to ertapenem. Infectious disease following Hypokalemia of 3.4 today Plan: advance to full liquids, advised pt to take slowly Continue IV fluids , change to 1/2 NS + 20 kcl @ 50 mls/hr 40 meq of PO Potassium Continue PO Percocet and Tylenol as needed for pain Continue oral meds per medicine Continue IV ertapenem, appreciate infectious disease recommendations Continue IV Zofran as needed Continue subcu heparin and SCDs for DVT prophylaxis Out of bed to chair and continue PT/OT Pathology reviewed with patient and daughter in law Dr. Healy was present during my examination and agrees with above Subjective feeling tired today having some midsternal discomfort (feels burning like I am going to vomit) no nausea minimal abdominal pain passed flatus and bowel movement this morning (liquid) Physical Exam Constitutional: WD/WN, vitals as above + obese; no acute distress Respiratory: normal respiratory effort; no respiratory distress and no labored breathing Gastrointestinal (Abdomen): Inspection/Auscultation: abdomen normal to inspection; abdomen not distended and + abnormal bowel sounds Percussion/Palpation: abdomen soft; abdomen nontender, no guarding and abdomen not rigid Skin: no rashes, warm and dry + incision (midline incision with suhas present wound with packing present) Psychiatric: Orientation: alert and oriented x 3 sleepy Results & Data Vital Signs (Past 12 Hours) Vital Signs Temp Pulse Pulse Resp BP Pulse Ox 05/28/19 11:05 37.1 C 65 18 163/68 H 94 05/28/19 08:00 71 05/28/19 07:13 37.0 C 66 20 143/70 H 95 05/28/19 03:51 37.3 C 67 18 165/82 H 95 Laboratory Results 05/28/19 05/28/19 05/28/19 Range/Units 05:26 05:26 05:26 WBC 8.15 (4.8-10.8) K/uL RBC 3.41 L (4.7-6.1) M/uL Hgb 10.8 L (14.0-18.0) g/dL Hct 31.8 L (42-52) % MCV 93.3 (80-100) fL MCH 31.7 (25-34) pg MCHC 34.0 (32-36) g/dL RDW Std Deviation 47.7 H (36.4-46.3) fL RDW Coeff of Nunu 14.0 (11.5-14.5) % Plt Count 166 (130-400) K/uL MPV 11.3 H (7.4-10.4) fL Immature Gran % (Auto) 0.5 % Neut % (Auto) 75.4 % Lymph % (Auto) 8.8 % [place] % (Auto) 11.4 % Eos % (Auto) 3.7 % Baso % (Auto) 0.2 % Immature Gran # (Auto) 0.04 H (0.00-0.02) K/uL Neut # (Auto) 6.14 (1.4-6.5) K/uL Lymph # (Auto) 0.72 L (1.2-3.4) K/uL Blanco # (Auto) 0.93 H (0.11-0.59) K/uL Eos # (Auto) 0.30 (0-0.5) K/uL Baso # (Auto) 0.02 (0-0.2) K/uL Sodium 140 (136-145) mmol/L Potassium 3.4 L (3.5-5.1) mmol/L Chloride 105 (98-107) mmol/L Carbon Dioxide 30 (21-32) mmol/L Anion Gap 5.0 (3-11) BUN 22 H (7-18) mg/dl Creatinine 1.12 (0.6-1.4) mg/dl Est Cr Clr Drug Dosing 68.3 ml/min Est GFR ( Amer) 72.0 Est GFR (Non-Af Amer) 62.1 BUN/Creatinine Ratio 19.4 (10-20) Glucose 103 H (70-99) mg/dl Calcium 7.6 L (8.5-10.1) mg/dl Magnesium 2.1 (1.8-2.4) mg/dl Urine WBC (Auto) (0-5) /hpf Urine RBC (Auto) (0-4) /hpf U Hyaline Cast (Auto) (0-5) /lpf U Epithel Cells (Auto) (0-5) /lpf Urine Bacteria (Auto) (Negative) Ur Renal Epithelial Cell Beta-(1,3)-D-Glucan pg/mL B-(1,3)-D-Glucan Intrp 05/27/19 05/25/19 Range/Units 12:08 09:43 WBC (4.8-10.8) K/uL RBC (4.7-6.1) M/uL Hgb (14.0-18.0) g/dL Hct (42-52) % MCV (80-100) fL MCH (25-34) pg MCHC (32-36) g/dL RDW Std Deviation (36.4-46.3) fL RDW Coeff of Nunu (11.5-14.5) % Plt Count (130-400) K/uL MPV (7.4-10.4) fL Immature Gran % (Auto) % Neut % (Auto) % Lymph % (Auto) % Blanco % (Auto) % Eos % (Auto) % Baso % (Auto) % Immature Gran # (Auto) (0.00-0.02) K/uL Neut # (Auto) (1.4-6.5) K/uL Lymph # (Auto) (1.2-3.4) K/uL Blanco # (Auto) (0.11-0.59) K/uL Eos # (Auto) (0-0.5) K/uL Baso # (Auto) (0-0.2) K/uL Sodium (136-145) mmol/L Potassium (3.5-5.1) mmol/L Chloride (98-107) mmol/L Carbon Dioxide (21-32) mmol/L Anion Gap (3-11) BUN (7-18) mg/dl Creatinine (0.6-1.4) mg/dl Est Cr Clr Drug Dosing ml/min Est GFR ( Amer) Est GFR (Non-Af Amer) BUN/Creatinine Ratio (10-20) Glucose (70-99) mg/dl Calcium (8.5-10.1) mg/dl Magnesium (1.8-2.4) mg/dl Urine WBC (Auto) 10-30 H (0-5) /hpf Urine RBC (Auto) >30 H (0-4) /hpf U Hyaline Cast (Auto) 1-5 (0-5) /lpf U Epithel Cells (Auto) >30 H (0-5) /lpf Urine Bacteria (Auto) 1+ H (Negative) Ur Renal Epithelial Cell Not Reportable Beta-(1,3)-D-Glucan <31 pg/mL B-(1,3)-D-Glucan Intrp NEGATIVE
--- NOTE | 2019-05-28 18:05 | Infectious Disease Progress Nt ---
Date of Service May 28, 2019 Assessment & Plan (1) Acute appendicitis with generalized peritonitis: Patient with perforated appendix, with subsequent diffuse peritonitis status post open with cultures growing E. coli, Klebsiella, and Citrobacter. Given resistance of Citrobacter to ceftriaxone, changed to ertapenem 1 g daily. Likely will require a few more days of IV therapy. We will continue to follow. (2) Escherichia coli infection: (3) Klebsiella infection: Subjective Patient seen in follow-up for perforated appendix with peritonitis. With burning type abdominal pain, currently 3 out of 10 in intensity. Otherwise remains afebrile and hemodynamically stable. Tolerating ertapenem without apparent difficulty. Review of Systems Review of Systems: All systems reviewed & are unremarkable except as noted in HPI & below Physical Exam Constitutional: WD/WN, vitals as above comfortable; no acute distress Eyes: PERRL, conjunctivae normal, anicteric sclerae ENMT: external ear and nose normal, oropharynx normal Neck: trachea midline, no thyromegaly neck nontender Respiratory: normal respiratory effort, lungs clear to auscultation normal percussion; does not use accessory muscles Cardiovascular: Rate/Rhythm: regular rate and regular rhythm Heart Sounds: normal S1 and normal S2; no gallop, no murmur and no cardiac rub Vessels: normal peripheral pulses; no JVD Gastrointestinal (Abdomen): Inspection/Auscultation: abdomen normal to inspection and + hyperactive bowel sounds Percussion/Palpation: abdomen nontender, no hepatosplenomegaly and no abdominal mass Musculoskeletal: no cyanosis or clubbing, extremities motor strength 5/5 Sp ine: thoracic spine normal to inspection and lumbar spine normal to inspection; no cervical spinal tenderness Skin: no rashes, warm and dry normal turgor and + wound (Appears to be healing appropriately); no lesions Neurologic: patellar DTR's 2+ bilat, sensation intact no focal motor deficits Psychiatric: A+Ox3, euthymic affect Orientation: cooperative Lymphatic: no cervical or axillary lymphadenopathy no inguinal lymphadenopathy Results & Data Vital Signs (Past 12 Hours) Vital Signs Temp Pulse Pulse Resp BP Pulse Ox 05/28/19 15:29 36.9 C 54 L 18 133/65 92 05/28/19 11:05 37.1 C 65 18 163/68 H 94 05/28/19 08:00 71 05/28/19 07:13 37.0 C 66 20 143/70 H 95 Laboratory Results Short CBC 05/28/19 Range/Units 05:26 WBC 8.15 (4.8-10.8) K/uL Hgb 10.8 L (14.0-18.0) g/dL Hct 31.8 L (42-52) % Plt Count 166 (130-400) K/uL BMP 05/28/19 05:26 Sodium 140 Potassium 3.4 L Chloride 105 Carbon Dioxide 30 BUN 22 H Creatinine 1.12 Glucose 103 H Calcium 7.6 L Diagnostic Findings Microbiology 05/27/19 12:08 Urine,Straight Cath Urine Culture - Preliminary No growth - Less than 1,000 colonies/mL, Final report to follow. 05/25/19 09:43 Blood Aerobic Blood Culture - Preliminary No growth in Aerobic bottle after 48 hours. 05/25/19 09:43 Blood Anaerobic Blood Culture - Preliminary No growth in Anaerobic bottle after 48 hours. 05/25/19 09:45 Blood Aerobic Blood Culture - Preliminary No growth in Aerobic bottle after 48 hours. 05/25/19 09:45 Blood Anaerobic Blood Culture - Preliminary No growth in Anaerobic bottle after 48 hours. 05/22/19 20:30 Peritoneal Fluid Gram Stain - Final 05/22/19 20:30 Peritoneal Fluid Aerobic and Anaerobic Culture - Final Escherichia coli Klebsiella pneumoniae Citrobacter amalonaticus Bacteroides fragilis group 05/25/19 09:43 Blood Fungal Smear - Final 05/22/19 20:30 Urine,Indwelling Cath Urine Culture - Final No growth - less than 1,000 colonies/mL. PG Care Time/CCT Total # of Minutes Spent Total Time Spent with Patient: Total time spent is greater than 50% in coor dination of care (as documented) at patient's floor/unit and/or counseling patient:
[2019-05-28] MEDS: TERAZOSIN HCL 5 MG CAP PO SCH (21:16)
[2019-05-28] MEDS: ATORVASTATIN 10 MG TAB PO SCH (21:17)
[2019-05-29] MEDS: SODIUM CHLOR 0.45% + 20MEQ KCL 20 MEQ/1,000 ML BAG IV SCH ×2 (01:22→21:20)
[2019-05-29] MEDS: HEPARIN SOD 5,000 UNIT/0.5 ML VIAL SQ SCH ×3 (05:34→21:16)
[2019-05-29] MEDS: LEVOTHYROXINE SODIUM 112 MCG TABLET PO SCH (05:34)
[2019-05-29] MEDS: ALLOPURINOL 300 MG TAB PO SCH (07:46)
[2019-05-29] MEDS: AMLODIPINE BESYLATE 5 MG TAB PO SCH (07:46)
[2019-05-29] MEDS: CHOLECALCIFEROL 1,000 UNITS TAB PO SCH (07:47)
[2019-05-29] MEDS: FAMOTIDINE 20 MG TAB PO SCH ×2 (07:47→21:18)
[2019-05-29] MEDS: carvediloL 3.125 MG TAB PO SCH ×2 (07:47→21:18)
[2019-05-29] MEDS: CITALOPRAM 20 MG TAB PO SCH (07:48)
--- NOTE | 2019-05-29 09:17 | Surgery Progress Note ---
Date of Service May 29, 2019 Assessment & Plan (1) Acute appendicitis with generalized peritonitis: making progress advance diet OOB wound looks good Subjective doing well with diet passing flatus and small BMs Review of Systems Constitutional: no fever and no chills Respiratory: no cough and no dyspnea Cardiovascular: no chest pain Gastrointestinal: no abdominal pain, no nausea and no vomiting Genitourinary: no dysuria Physical Exam Constitutional: well developed and well nourished Neck: trachea midline Respiratory: normal respiratory effort, lungs clear to auscultation Cardiovascular: RRR, no murmur, no edema Gastrointestinal (Abdomen): Inspection/Auscultation: abdomen normal to inspection and normal bowel sounds; abdomen not distended Percussion/Palpation: abdomen nontender wound clean and dry; small opening granulating well Musculoskeletal: Head/Neck/Chest: normocephalic and head atraumatic Skin: no rashes, warm and dry Results & Data Vital Signs (Past 12 Hours) Vital Signs Temp Pulse Pulse Resp BP Pulse Ox 05/29/19 08:03 37.0 C 66 18 148/69 H 99 05/29/19 03:43 37.1 C 60 18 149/67 H 97 05/29/19 00:00 66 05/28/19 23:17 37.2 C 68 19 137/69 92
[2019-05-29] MEDS: ERTAPENEM SODIUM 1,000 MG in SODIUM CHLORIDE 0.9% 50 ML IV SCH (09:36)
--- NOTE | 2019-05-29 12:54 | Hospitalist Progress Note ---
Date of Service May 29, 2019 Assessment & Plan (1) Acute appendicitis with generalized peritonitis: ASSESSMENT AND PLAN: This is a 79-year-old male who presents with abdominal pain of 1-day duration, found to have acute appendicitis on CAT scan. 1. Acute appendicitis/peritonitis, started with laparoscopic appendectomy which was converted to open ileocecectomy, found to have pus throughout abdomen and friable bowel. - POD#6 - Peritoneal fluid culture (05/22/2019) + for E. coli, Klebsiella pneumoniae, Citrobacter amalonaticus and Bacteroides fragilis group (Citrobacter resistant to ceftriaxone) - ID consulted,switched from IV Zosyn to Ertapenem (per last ID note, 05/28, pt will require several more days of IV Abx) - Pathology A. CECUM AND TERMINAL ILEUM, ILEOCECECTOMY: - EXUDATIVE ACUTE APPENDICITIS WITH PERFORATION - BENIGN COLONIC AND ILEAL MUCOSA WITH SUPERFICIAL SEROSITIS - NEGATIVE FOR MALIGNANCY B. SMALL BOWEL, RESECTION: - BENIGN SMALL BOWEL MUCOSA WITH SUPERFICIAL SEROSITIS - SMALL FRAGMENT OF UNREMARKABLE COLONIC MUCOSA - NEGATIVE FOR MALIGNANCY -Started on clear liquid diet (05/27), per surgery and continues to advance, so far tolerating well -having BMs, dulcolax suppository prn 2. History of diastolic congestive heart failure, not on diuretics at home, - continue Coreg, lisinopril on hold for now, plan to resume upon discharge - Monitor for any volume overload 3. Hypertension - resumed coreg, amlodipine, terazosin - holding lisinopril - hydralazine prn - IV Lopressor p.r.n. - will cont. to monitor the blood pressure 4. Gastroesophageal reflux disease -on Prilosec at home, we will place on IV Pepcid. 5. Gout - cont. home allopurinol 6. Hyperlipidemia - cont. home atorvastatin 7. History of depression - cont. home Celexa 8. History of obstructive sleep apnea, CPAP at night 9. Hypothyroidism - cont. home levothyroxine 10. Recent diagnosis of monoclonal paraproteinemia. s/p Bone marrow biopsy. - Recent PET scan unremarkable. - Hematology/oncology currently observing. DVT prophylaxis: heparin subq and SCDs Disposition: likely SNF after d/c from hospital Subjective No acute events overnight. Patient is sitting in the chair, comfortable and in no acute distress. Advancing diet, having bowel movements. No fevers, chills, chest pain, shortness of breath, nausea, vomiting, mild abdominal pain. Review of Systems Review of Systems: All systems reviewed & are unremarkable except as noted in HPI & below Constitutional: no fever and no chills Respiratory: no cough and no dyspnea Cardiovascular: no chest pain, no palpitations and no edema Gastrointestinal: + abdominal pain; no nausea and no vomiting Physical Exam Constitutional: well developed and well nourished; no acute distress Eyes: PERRL, conjunctivae normal, anicteric sclerae EOM intact bilaterally ENMT: external ear and nose normal, oropharynx normal Neck: normal visual inspection Respiratory: normal respiratory effort, lungs clear to auscultation Auscultation: no wheezes Cardiovascular: RRR, no murmur, no edema Heart Sounds: no gallop Vessels: normal peripheral pulses; no JVD Chest (Breasts): Chest: normal inspection of chest Gastrointestinal (Abdomen): Inspection/Auscultation: normal bowel sounds; abdomen not distended Percussion/Palpation: + abdomen tender (Only very mild tenderness to palpation) and abdomen soft; no guarding and abdomen not rigid obese Musculoskeletal: Head/Neck/Chest: normocephalic, head atraumatic and neck supple Extremities: extremities normal to inspection Skin: no rashes, warm and dry Neurologic: PERRL, EOMI, accommodation nl, no face palsy, no dysarthria moves all extremities Psychiatric: A+Ox3, euthymic affect Lymphatic: no lymphedema Results & Data Vital Signs (Past 12 Hours) Vital Signs Temp Pulse Resp BP Pulse Ox 05/29/19 11:36 36.5 C 62 16 149/74 H 99 05/29/19 08:03 37.0 C 66 18 148/69 H 99 05/29/19 03:43 37.1 C 60 18 149/67 H 97 Laboratory Results 05/29/19 Range/Units 13:03 Sodium 140 (136-145) mmol/L Potassium 4.2 D (3.5-5.1) mmol/L Chloride 106 (98-107) mmol/L Carbon Dioxide 30 (21-32) mmol/L Anion Gap 4.0 (3-11) BUN 15 (7-18) mg/dl Creatinine 1.10 (0.6-1.4) mg/dl Est Cr Clr Drug Dosing 69.7 ml/min Est GFR ( Amer) 73.6 Est GFR (Non-Af Amer) 63.5 BUN/Creatinine Ratio 13.2 (10-20) Glucose 120 H (70-99) mg/dl Calcium 7.8 L (8.5-10.1) mg/dl Medications Administered Current Inpatient Medications Acetaminophen (Tylenol) 650 mg PO Q4H PRN PRN Reason: Fever/Mild Pain (Pain 1,2,3) Stop: 06/24/19 09:09 Last Admin: 05/27/19 13:53 Dose: 650 mg Documented by: [facility] ([facility]oprim) [facility] [place] Stop: 06/25/19 08:59 Last Admin: 05/29/19 07:46 Dose: 300 mg Documented by: Amlodipine Besylate (Norvasc) 10 mg PO QAM [facility] Stop: 06/24/19 09:29 Last Admin: 05/29/19 07:46 Dose: 10 mg Documented by: Atorvastatin Calcium (Lipitor) 5 mg PO [facility] Stop: 06/24/19 20:59 Last Admin: 05/28/19 21:17 Dose: 5 mg Documented by: Carvedilol (Coreg) 3.125 mg PO BID [facility] Stop: 06/24/19 09:29 Last Admin: 05/29/19 07:47 Dose: 3.125 mg Documented by: Citalopram Hydrobromide (Celexa) 20 mg PO QAM [facility] Stop: 06/24/19 13:59 Last Admin: 05/29/19 07:48 Dose: 20 mg Documented by: Famotidine (Pepcid) 20 mg PO BID [facility] Stop: 06/26/19 20:59 Last Admin: 05/29/19 07:47 Dose: 20 mg Documented by: Heparin Sodium (Porcine) (Heparin Sodium (Porcine)) 5,000 units SQ Q8 [facility] Stop: 06/23/19 13:59 Last Admin: 05/29/19 05:34 Dose: 5,000 units Documented by: Hydralazine HCl (Hydralazine Hcl) 10 mg IV Q6H PRN PRN Reason: Hypertension Stop: 06/22/19 19:17 Last Admin: 05/25/19 01:28 Dose: 10 mg Documented by: Ertapenem 1,000 mg/ Sodium (Chloride) 60 mls @ 100 mls/hr IV Q24H [facility]; Protocol Stop: 06/04/19 09:59 Last Infusion: 05/29/19 10:10 Dose: Infused Documented by: Ondansetron HCl 8 mg/ Dextrose 54 mls @ 200 mls/hr IV Q4H PRN PRN Reason: Nausea And Vomiting Stop: 06/24/19 15:10 Last Infusion: 05/28/19 12:56 Dose: Infused Documented by: Potassium Chloride/Sodium Chloride (1/2 Nss + 20meq Kcl 1000ml) 20 meq in 1,000 mls @ 50 mls/hr IV .Q20H [facility] Stop: 06/26/19 09:29 Last Admin: 05/29/19 01:22 Dose: 50 mls/hr Documented by: Levothyroxine Sodium (Synthroid) [facility] Stop: 06/25/19 06:29 Last Admin: 05/29/19 05:34 Dose: 112 mcg Documented by: Metoprolol Tartrate (Lopressor) 5 mg IV Q4 PRN PRN Reason: Tachycardia Stop: 06/22/19 00:00 Last Admin: 05/24/19 19:51 Dose: 5 mg Documented by: Morphine Sulfate (Morphine Sulfate) 1 mg IV Q2H PRN PRN Reason: Mild Pain Stop: 06/08/19 11:29 Morphine Sulfate (Morphine Sulfate) 2 mg IV Q2H PRN PRN Reason: Moderate Pain Stop: 06/08/19 11:29 Last Admin: 05/26/19 23:59 Dose: 2 mg Documented by: Morphine Sulfate (Morphine Sulfate) 4 mg IV Q2H PRN PRN Reason: Severe Pain Stop: 06/08/19 11:29 Oxycodone HCl (Roxicodone Immediate Rel) 5 mg PO Q6H PRN PRN Reason: Moderate Pain (4,5,6) Stop: 06/08/19 09:09 Last Admin: 05/27/19 13:54 Dose: 5 mg Documented by: Oxycodone HCl (Roxicodone Immediate Rel) 10 mg PO Q6H PRN PRN Reason: Severe Pain (7,8,9,10) Stop: 06/08/19 09:09 Last Admin: 05/28/19 10:12 Dose: 10 mg Documented by: Terazosin HCl (Hytrin) 5 mg PO [facility] Stop: 06/24/19 20:59 Last Admin: 05/28/19 21:16 Dose: 5 mg Documented by: Vitamin D (Vitamin D3) 2,000 units PO [facility] Stop: 06/25/19 08:59 Last Admin: 05/29/19 07:47 Dose: 2,000 units Documented by:
[2019-05-29 13:35] LABS: BUN Creatinine Ratio 13.2 (10-20); Calcium 7.8 mg/dl (8.5-10.1); Creatinine Clr Calc Pharmacy 69.7 ml/min; Est GFR (African American) 73.6; Est GFR (Non-African American) 63.5; Potassium 4.2 mmol/L (3.5-5.1)
[2019-05-29] MEDS: ATORVASTATIN 10 MG TAB PO SCH (21:17)
[2019-05-29] MEDS: TERAZOSIN HCL 5 MG CAP PO SCH (21:17)
[2019-05-29] MEDS: LISINOPRIL 10 MG TAB PO SCH (21:20)
[2019-05-30] MEDS: HEPARIN SOD 5,000 UNIT/0.5 ML VIAL SQ SCH ×3 (06:06→21:11)
[2019-05-30] MEDS: LEVOTHYROXINE SODIUM 112 MCG TABLET PO SCH (06:06)
[2019-05-30 06:51] LABS: Hematocrit (blood only) 34.8 % (42-52); Hemoglobin 11.6 g/dL (14.0-18.0); Mean Corpuscular Hemoglobin 31.3 pg (25-34); Mean Corpuscular Hgb Conc 33.3 g/dL (32-36); Mean Corpuscular Volume 93.8 fL (80-100); Mean Platelet Volume 11.8 fL (7.4-10.4); Platelet Count 226 K/uL (130-400); RDW Coefficient of Variation 13.9 % (11.5-14.5); RDW Standard Deviation 47.6 fL (36.4-46.3); Red Blood Count 3.71 M/uL (4.7-6.1); White Blood Count 9.17 K/uL (4.8-10.8)
[2019-05-30] MEDS: FAMOTIDINE 20 MG TAB PO SCH ×2 (07:49→21:11)
[2019-05-30] MEDS: CHOLECALCIFEROL 1,000 UNITS TAB PO SCH (07:49)
[2019-05-30] MEDS: CITALOPRAM 20 MG TAB PO SCH (07:50)
[2019-05-30] MEDS: AMLODIPINE BESYLATE 5 MG TAB PO SCH (07:50)
[2019-05-30] MEDS: LISINOPRIL 10 MG TAB PO SCH (07:50)
[2019-05-30] MEDS: carvediloL 3.125 MG TAB PO SCH ×2 (07:51→21:09)
[2019-05-30] MEDS: ALLOPURINOL 300 MG TAB PO SCH (07:51)
--- NOTE | 2019-05-30 08:32 | Hospitalist Progress Note ---
Date of Service May 30, 2019 Assessment & Plan (1) Acute appendicitis with generalized peritonitis: ASSESSMENT AND PLAN: This is a 79-year-old male who presents with abdominal pain of 1-day duration, found to have acute appendicitis on CAT scan. 1. Acute appendicitis/peritonitis, started with laparoscopic appendectomy which was converted to open ileocecectomy, found to have pus throughout abdomen and friable bowel. - POD#6 - Peritoneal fluid culture (05/22/2019) + for E. coli, Klebsiella pneumoniae, Citrobacter amalonaticus and Bacteroides fragilis group (Citrobacter resistant to ceftriaxone) - ID consulted,switched from IV Zosyn to Ertapenem (per last ID note, 05/28, pt will require several more days of IV Abx) - Pathology A. CECUM AND TERMINAL ILEUM, ILEOCECECTOMY: - EXUDATIVE ACUTE APPENDICITIS WITH PERFORATION - BENIGN COLONIC AND ILEAL MUCOSA WITH SUPERFICIAL SEROSITIS - NEGATIVE FOR MALIGNANCY B. SMALL BOWEL, RESECTION: - BENIGN SMALL BOWEL MUCOSA WITH SUPERFICIAL SEROSITIS - SMALL FRAGMENT OF UNREMARKABLE COLONIC MUCOSA - NEGATIVE FOR MALIGNANCY -Started on clear liquid diet (05/27), per surgery and continues to advance, so far tolerating well -having BMs, dulcolax suppository prn 2. History of diastolic congestive heart failure, not on diuretics at home, - continue Coreg, lisinopril on hold for now, plan to resume upon discharge - Monitor for any volume overload 3. Hypertension - resumed coreg, amlodipine, terazosin -Blood pressure now more elevated -Resumed lisinopril at half home dose yesterday, will resume full dose tomorrow morning - hydralazine prn, resume home hydralazine - IV Lopressor p.r.n. - will cont. to monitor the blood pressure 4. Gastroesophageal reflux disease -on Prilosec at home, we will place on IV Pepcid. 5. Gout - cont. home allopurinol 6. Hyperlipidemia - cont. home atorvastatin 7. History of depression - cont. home Celexa 8. History of obstructive sleep apnea, CPAP at night 9. Hypothyroidism - cont. home levothyroxine 10. Recent diagnosis of monoclonal paraproteinemia. s/p Bone marrow biopsy. - Recent PET scan unremarkable. - Hematology/oncology currently observing. DVT prophylaxis: heparin subq and SCDs Disposition: likely SNF after d/c from hospital Subjective No acute events overnight. Patient is laying in bed, comfortable and in no acute distress. Advancing diet, having bowel movements. No fevers, chills, chest pain, shortness of breath, nausea, vomiting, mild abdominal pain. Clinically improving, will downgrade to [facility]. Review of Systems Review of Systems: All systems reviewed & are unremarkable except as noted in HPI & below Constitutional: no fever, no chills and no body aches Respiratory: no cough, no dyspnea and no pain on inspiration Cardiovascular: no chest pain, no dyspnea on exertion, no palpitations and no edema Gastrointestinal: + abdominal pain (mild); no nausea and no vomiting Physical Exam Constitutional: well developed and well nourished; no acute distress Eyes: PERRL, conjunctivae normal, anicteric sclerae EOM intact bilaterally ENMT: external ear and nose normal, oropharynx normal Neck: normal visual inspection Respiratory: normal respiratory effort, lungs clear to auscultation Auscultation: no wheezes Cardiovascular: RRR, no murmur, no edema Heart Sounds: no gallop Vessels: normal peripheral pulses; no JVD Chest (Breasts): Chest: normal inspection of chest Gastrointestinal (Abdomen): Inspection/Auscultation: normal bowel sounds; abdomen not distended Percussion/Palpation: + abdomen tender (Only very mild tenderness to palpation) and abdomen soft; no guarding and abdomen not rigid Musculoskeletal: Head/Neck/Chest: normocephalic, head atraumatic and neck supple Extremities: extremities normal to inspection Skin: no rashes, warm and dry Neurologic: PERRL, EOMI, accommodation nl, no face palsy, no dysarthria moves all extremities Psychiatric: A+Ox3, euthymic affect Lymphatic: no lymphedema Results & Data Vital Signs (Past 12 Hours) Vital Signs Temp Pulse Resp BP Pulse Ox 05/30/19 07:01 37.2 C 66 18 156/71 H 98 05/30/19 02:50 37.3 C 72 19 158/87 H 95 05/29/19 23:30 37.6 C H 71 18 130/66 93 Laboratory Results 05/30/19 05/29/19 Range/Units 06:24 13:03 WBC 9.17 (4.8-10.8) K/uL RBC 3.71 L (4.7-6.1) M/uL Hgb 11.6 L (14.0-18.0) g/dL Hct 34.8 L (42-52) % MCV 93.8 (80-100) fL MCH 31.3 (25-34) pg MCHC 33.3 (32-36) g/dL RDW Std Deviation 47.6 H (36.4-46.3) fL RDW Coeff of [place] 13.9 (11.5-14.5) % Plt Count 226 (130-400) K/uL MPV 11.8 H (7.4-10.4) fL Sodium 140 (136-145) mmol/L Potassium 4.2 D (3.5-5.1) mmol/L Chloride 106 (98-107) mmol/L Carbon Dioxide 30 (21-32) mmol/L Anion Gap 4.0 (3-11) BUN 15 (7-18) mg/dl Creatinine 1.10 (0.6-1.4) mg/dl Est Cr Clr Drug Dosing 69.7 ml/min Est GFR ( Amer) 73.6 Est GFR (Non-Af Amer) 63.5 BUN/Creatinine Ratio 13.2 (10-20) Glucose 120 H (70-99) mg/dl Calcium 7.8 L (8.5-10.1) mg/dl Medications Administered Current Inpatient Medications Acetaminophen (Tylenol) 650 mg PO Q4H PRN PRN Reason: Fever/Mild Pain (Pain 1,2,3) Stop: 06/24/19 09:09 Last Admin: 05/27/19 13:53 Dose: 650 mg Documented by: [facility]opurin[facility] (Zyloprim) [facility] [place] Stop: 06/25/19 08:59 Last Admin: 05/30/19 07:51 Dose: 300 mg Documented by: Amlodipine Besylate (Norvasc) 10 mg PO QAM [facility] Stop: 06/24/19 09:29 Last Admin: 05/30/19 07:50 Dose: 10 mg Documented by: Atorvastatin Calcium (Lipitor) 5 mg PO [facility] Stop: 06/24/19 20:59 Last Admin: 05/29/19 21:17 Dose: 5 mg Documented by: Carvedilol (Coreg) 3.125 mg PO BID [facility] Stop: 06/24/19 09:29 Last Admin: 05/30/19 07:51 Dose: 3.125 mg Documented by: Citalopram Hydrobromide (Celexa) 20 mg PO QAM [facility] Stop: 06/24/19 13:59 Last Admin: 05/30/19 07:50 Dose: 20 mg Documented by: Famotidine (Pepcid) 20 mg PO BID [facility] Stop: 06/26/19 20:59 Last Admin: 05/30/19 07:49 Dose: 20 mg Documented by: Heparin Sodium (Porcine) (Heparin Sodium (Porcine)) 5,000 units SQ Q8 [facility] Stop: 06/23/19 13:59 Last Admin: 05/30/19 06:06 Dose: 5,000 units Documented by: Hydralazine HCl (Hydralazine Hcl) 10 mg IV Q6H PRN PRN Reason: Hypertension Stop: 06/22/19 19:17 Last Admin: 05/25/19 01:28 Dose: 10 mg Documented by: Ertapenem 1,000 mg/ Sodium (Chloride) 60 mls @ 100 mls/hr IV Q24H [facility]; Protocol Stop: 06/04/19 09:59 Last Infusion: 05/29/19 10:10 Dose: Infused Documented by: Ondansetron HCl 8 mg/ Dextrose 54 mls @ 200 mls/hr IV Q4H PRN PRN Reason: Nausea And Vomiting Stop: 06/24/19 15:10 Last Infusion: 05/28/19 12:56 Dose: Infused Documented by: Potassium Chloride/Sodium Chloride (1/2 Nss + 20meq Kcl 1000ml) 20 meq in 1,000 mls @ 50 mls/hr IV .Q20H [facility] Stop: 06/26/19 09:29 Last Admin: 05/29/19 21:20 Dose: 50 mls/hr Documented by: Levothyroxine Sodium (Synthroid) 112 mcg PO DAILYBB [facility] Stop: 06/25/19 06:29 Last Admin: 05/30/19 06:06 Dose: 112 mcg Documented by: Lisinopril (Zestril) 10 mg PO QAM [facility] Stop: 06/28/19 19:59 Last Admin: 05/30/19 07:50 Dose: 10 mg Documented by: Metoprolol Tartrate (Lopressor) 5 mg IV Q4 PRN PRN Reason: Tachycardia Stop: 06/22/19 00:00 Last Admin: 05/24/19 19:51 Dose: 5 mg Documented by: Morphine Sulfate (Morphine Sulfate) 1 mg IV Q2H PRN PRN Reason: Mild Pain Stop: 06/08/19 11:29 Morphine Sulfate (Morphine Sulfate) 2 mg IV Q2H PRN PRN Reason: Moderate Pain Stop: 06/08/19 11:29 Last Admin: 05/26/19 23:59 Dose: 2 mg Documented by: Morphine Sulfate (Morphine Sulfate) 4 mg IV Q2H PRN PRN Reason: Severe Pain Stop: 06/08/19 11:29 Oxycodone HCl (Roxicodone Immediate Rel) 5 mg PO Q6H PRN PRN Reason: Moderate Pain (4,5,6) Stop: 06/08/19 09:09 Last Admin: 05/27/19 13:54 Dose: 5 mg Documented by: Oxycodone HCl (Roxicodone Immediate Rel) 10 mg PO Q6H PRN PRN Reason: Severe Pain (7,8,9,10) Stop: 06/08/19 09:09 Last Admin: 05/28/19 10:12 Dose: 10 mg Documented by: Terazosin HCl (Hytrin) 5 mg PO [facility] Stop: 06/24/19 20:59 Last Admin: 05/29/19 21:17 Dose: 5 mg Documented by: Vitamin D (Vitamin D3) 2,000 units [facility] [place] Stop: 06/25/19 08:59 Last Admin: 05/30/19 07:49 Dose: 2,000 units Documented by:
[2019-05-30] MEDS: ERTAPENEM SODIUM 1,000 MG in SODIUM CHLORIDE 0.9% 50 ML IV SCH (09:15)
--- NOTE | 2019-05-30 10:12 | Surgery Progress Note ---
Date of Service May 30, 2019 Assessment & Plan (1) Acute appendicitis with generalized peritonitis: good progress consider discharge early this week con't IV abx Subjective making progress activity improving doing well with diet Review of Systems Constitutional: no fever and no chills Respiratory: no dyspnea Cardiovascular: no chest pain Gastrointestinal: no abdominal pain, no nausea and no vomiting Genitourinary: no dysuria Musculoskeletal: no back pain Physical Exam Constitutional: well developed and well nourished Neck: trachea midline Respiratory: normal respiratory effort, lungs clear to auscultation Cardiovascular: RRR, no murmur, no edema Gastrointestinal (Abdomen): Inspection/Auscultation: normal bowel sounds; abdomen not distended Percussion/Palpation: abdomen nontender and no guarding Musculoskeletal: Head/Neck/Chest: normocephalic and head atraumatic Skin: no rashes, warm and dry Results & Data Vital Signs (Past 12 Hours) Vital Signs Temp Pulse Resp BP Pulse Ox 05/30/19 07:01 37.2 C 66 18 156/71 H 98 05/30/19 02:50 37.3 C 72 19 158/87 H 95 05/29/19 23:30 37.6 C H 71 18 130/66 93
[2019-05-30] MEDS ORDERED: Nursing to Pharmacy Communication ONE (11:14)
[2019-05-30] MEDS: HydrALAZINE HCL 20 MG/ML VIAL IV PRN (15:35)
[2019-05-30] MEDS: HydrALAZINE TAB 50 MG TAB PO SCH (21:09)
[2019-05-30] MEDS: TERAZOSIN HCL 5 MG CAP PO SCH (21:10)
[2019-05-30] MEDS: ATORVASTATIN 10 MG TAB PO SCH (21:10)
[2019-05-31] MEDS: LEVOTHYROXINE SODIUM 112 MCG TABLET PO SCH (05:19)
[2019-05-31] MEDS: HEPARIN SOD 5,000 UNIT/0.5 ML VIAL SQ SCH ×3 (05:19→21:05)
[2019-05-31] MEDS: carvediloL 3.125 MG TAB PO SCH ×2 (09:29→21:02)
[2019-05-31] MEDS: HydrALAZINE TAB 50 MG TAB PO SCH ×3 (09:29→21:02)
[2019-05-31] MEDS: LISINOPRIL 20 MG TAB PO SCH (09:29)
[2019-05-31] MEDS: CHOLECALCIFEROL 1,000 UNITS TAB PO SCH (09:30)
[2019-05-31] MEDS: CITALOPRAM 20 MG TAB PO SCH (09:30)
[2019-05-31] MEDS: ALLOPURINOL 300 MG TAB PO SCH (09:30)
[2019-05-31] MEDS: AMLODIPINE BESYLATE 5 MG TAB PO SCH (09:30)
[2019-05-31] MEDS: FAMOTIDINE 20 MG TAB PO SCH ×2 (11:02→21:08)
[2019-05-31] MEDS: ERTAPENEM SODIUM 1,000 MG in SODIUM CHLORIDE 0.9% 50 ML IV SCH (11:02)
--- NOTE | 2019-05-31 12:06 | Hospitalist Progress Note ---
Date of Service May 31, 2019 Assessment & Plan (1) Acute appendicitis with generalized peritonitis: ASSESSMENT AND PLAN: This is a 79-year-old male who presents with abdominal pain of 1-day duration, found to have acute appendicitis on CAT scan. 1. Acute appendicitis/peritonitis, started with laparoscopic appendectomy which was converted to open ileocecectomy, found to have pus throughout abdomen and friable bowel. - POD#6 - Peritoneal fluid culture (05/22/2019) + for E. coli, Klebsiella pneumoniae, Citrobacter amalonaticus and Bacteroides fragilis group (Citrobacter resistant to ceftriaxone) - ID consulted,switched from IV Zosyn to Ertapenem (per last ID note, 05/28, pt will require several more days of IV Abx, discussed with Dr. Stock this AM, pt will not need any IV Abx on discharge) - Pathology A. CECUM AND TERMINAL ILEUM, ILEOCECECTOMY: - EXUDATIVE ACUTE APPENDICITIS WITH PERFORATION - BENIGN COLONIC AND ILEAL MUCOSA WITH SUPERFICIAL SEROSITIS - NEGATIVE FOR MALIGNANCY B. SMALL BOWEL, RESECTION: - BENIGN SMALL BOWEL MUCOSA WITH SUPERFICIAL SEROSITIS - SMALL FRAGMENT OF UNREMARKABLE COLONIC MUCOSA - NEGATIVE FOR MALIGNANCY -Started on clear liquid diet (05/27), per surgery and continues to advance, so far tolerating well -having BMs, dulcolax suppository prn 2. History of diastolic congestive heart failure, not on diuretics at home, - continue Coreg, lisinopril (resumed) - Monitor for any volume overload 3. Hypertension -More hypertensive, his home medications were all resumed, now BP well controlled - resumed coreg, amlodipine, terazosin -Blood pressure now more elevated -Resumed lisinopril at half home dose yesterday, resumed full dose this morning -resumed home hydralazine - IV Lopressor p.r.n. - will cont. to monitor the blood pressure 4. Gastroesophageal reflux disease -on Prilosec at home, we will place on IV Pepcid. 5. Gout - cont. home allopurinol 6. Hyperlipidemia - cont. home atorvastatin 7. History of depression - cont. home Celexa 8. History of obstructive sleep apnea, CPAP at night 9. Hypothyroidism - cont. home levothyroxine 10. Recent diagnosis of monoclonal paraproteinemia. s/p Bone marrow biopsy. - Recent PET scan unremarkable. - Hematology/oncology currently observing. DVT prophylaxis: heparin subq and SCDs Disposition: likely SNF after d/c from hospital Subjective No acute events overnight. Patient is sitting up in chair, comfortable and in no acute distress. Good po intake, having bowel movements. No fevers, chills, chest pain, shortness of breath, nausea, vomiting, no abdominal pain. Daughter at the bedside. Hypertensive, rest of his BP meds restarted (lisinopril, and hydralazine), now controlled Review of Systems Review of Systems: All systems reviewed & are unremarkable except as noted in HPI & below Constitutional: no fever, no chills and no fatigue Respiratory: no cough, no dyspnea and no pain on inspiration Cardiovascular: no chest pain, no dyspnea on exertion, no palpitations and no edema Gastrointestinal: no abdominal pain, no early satiety, no nausea and no vomiting Physical Exam Constitutional: well developed and well nourished; no acute distress Eyes: PERRL, conjunctivae normal, anicteric sclerae EOM intact bilaterally ENMT: external ear and nose normal, oropharynx normal Neck: normal visual inspection Respiratory: normal respiratory effort, lungs clear to auscultation Auscultation: no wheezes Cardiovascular: RRR, no murmur, no edema Heart Sounds: no gallop Vessels: normal peripheral pulses; no JVD Chest (Breasts): Chest: normal inspection of chest Gastrointestinal (Abdomen): Inspection/Auscultation: normal bowel sounds; abdomen not distended Percussion/Palpation: + abdomen tender (Only very mild tenderness to palpation) and abdomen soft; no guarding and abdomen not rigid Musculoskeletal: Head/Neck/Chest: normocephalic, head atraumatic and neck supple Extremities: extremities normal to inspection Skin: no rashes, warm and dry Neurologic: PERRL, EOMI, accommodation nl, no face palsy, no dysarthria moves all extremities Psychiatric: A+Ox3, euthymic affect Lymphatic: no lymphedema Results & Data Vital Signs (Past 12 Hours) Vital Signs Temp Pulse Resp BP Pulse Ox 05/31/19 07:50 94 05/31/19 07:25 36.8 C 72 16 148/60 H 97 Medications Administered Current Inpatient Medications Acetaminophen (Tylenol) 650 mg PO Q4H PRN PRN Reason: Fever/Mild Pain (Pain 1,2,3) Stop: 06/24/19 09:09 Last Admin: 05/27/19 13:53 Dose: 650 mg Documented by: Allopurinol (Zyloprim) 300 mg PO QAM [facility] Stop: 06/25/19 08:59 Last Admin: 05/31/19 09:30 Dose: 300 mg Documented by: Amlodipine Besylate (Norvasc) 10 mg PO QAM [facility] Stop: 06/24/19 09:29 Last Admin: 05/31/19 09:30 Dose: 10 mg Documented by: Atorvastatin Calcium (Lipitor) 5 mg PO HS [facility] Stop: 06/24/19 20:59 Last Admin: 05/30/19 21:10 Dose: 5 mg Documented by: Carvedilol (Coreg) 3.125 mg PO BID [facility] Stop: 06/24/19 09:29 Last Admin: 05/31/19 09:29 Dose: 3.125 mg Documented by: Citalopram Hydrobromide (Celexa) 20 mg PO QAM [facility] Stop: 06/24/19 13:59 Last Admin: 05/31/19 09:30 Dose: 20 mg Documented by: Famotidine (Pepcid) 20 mg PO BID [facility] Stop: 06/26/19 20:59 Last Admin: 05/31/19 11:02 Dose: 20 mg Documented by: Heparin Sodium (Porcine) (Heparin Sodium (Porcine)) 5,000 units SQ Q8 [facility] Stop: 06/23/19 13:59 Last Admin: 05/31/19 05:19 Dose: 5,000 units Documented by: Hydralazine HCl (Hydralazine Hcl) 10 mg IV Q6H PRN PRN Reason: Hypertension Stop: 06/22/19 19:17 Last Admin: 05/30/19 15:35 Dose: 10 mg Documented by: Hydralazine HCl (Apresoline) 50 mg PO TID [facility] Stop: 06/29/19 20:59 Last Admin: 05/31/19 09:29 Dose: 50 mg Documented by: Ertapenem 1,000 mg/ Sodium (Chloride) 60 mls @ 100 mls/hr IV Q24H [facility]; Protocol Stop: 06/04/19 09:59 Last Infusion: 05/31/19 12:05 Dose: Infused Documented by: Ondansetron HCl 8 mg/ Dextrose 54 mls @ 200 mls/hr IV Q4H PRN PRN Reason: Nausea And Vomiting Stop: 06/24/19 15:10 Last Infusion: 05/28/19 12:56 Dose: Infused Documented by: Levothyroxine Sodium (Synthroid) [facility] Stop: 06/25/19 06:29 Last Admin: 05/31/19 05:19 Dose: 112 mcg Documented by: [facility]) [facility] Stop: 06/30/19 08:59 Last Admin: 05/31/19 09:29 Dose: 20 mg Documented by: Metoprolol Tartrate (Lopressor) 5 mg IV Q4 PRN PRN Reason: Tachycardia Stop: 06/22/19 00:00 Last Admin: 05/24/19 19:51 Dose: 5 mg Documented by: Morphine Sulfate (Morphine Sulfate) 1 mg IV Q2H PRN PRN Reason: Mild Pain Stop: 06/08/19 11:29 Morphine Sulfate (Morphine Sulfate) 2 mg IV Q2H PRN PRN Reason: Moderate Pain Stop: 06/08/19 11:29 Last Admin: 05/26/19 23:59 Dose: 2 mg Documented by: Morphine Sulfate (Morphine Sulfate) 4 mg IV Q2H PRN PRN Reason: Severe Pain Stop: 06/08/19 11:29 Oxycodone HCl (Roxicodone Immediate Rel) 5 mg PO Q6H PRN PRN Reason: Moderate Pain (4,5,6) Stop: 06/08/19 09:09 Last Admin: 05/27/19 13:54 Dose: 5 mg Documented by: Oxycodone HCl (Roxicodone Immediate Rel) 10 mg PO Q6H PRN PRN Reason: Severe Pain (7,8,9,10) Stop: 06/08/19 09:09 Last Admin: 05/28/19 10:12 Dose: 10 mg Documented by: Terazosin HCl (Hytrin) 5 mg PO [facility] Stop: 06/24/19 20:59 Last Admin: 05/30/19 21:10 Dose: 5 mg Documented by: Vitamin D (Vitamin D3) [facility] Stop: 06/25/19 08:59 Last Admin: 05/31/19 09:30 Dose: 2,000 units Documented by:
--- NOTE | 2019-05-31 14:20 | Infectious Disease Progress Nt ---
Date of Service May 31, 2019 Assessment & Plan (1) Acute appendicitis with generalized peritonitis: Patient with perforated appendix, with subsequent diffuse peritonitis status post open with cultures growing E. coli, Klebsiella, and Citrobacter. Appears to be improving with ertapenem, has had 7 days of therapy since surgery with "source control" and this is likely received adequate course of antibiotics. Will discuss with all involved. Will continue to follow. (2) Escherichia coli infection: (3) Klebsiella infection: Subjective Patient seen in follow-up for perforated appendix with peritonitis. Appears comfortable, feeling better, offers no new complaints today. Remains afebrile. Review of Systems Review of Systems: All systems reviewed & are unremarkable except as noted in HPI & below Physical Exam Constitutional: WD/WN, vitals as above comfortable; no acute distress Eyes: PERRL, conjunctivae normal, anicteric sclerae ENMT: external ear and nose normal, oropharynx normal Neck: trachea midline, no thyromegaly neck nontender Respiratory: normal respiratory effort, lungs clear to auscultation normal percussion; does not use accessory muscles Cardiovascular: Rate/Rhythm: regular rate and regular rhythm Heart Sounds: normal S1 and normal S2; no gallop, no murmur and no cardiac rub Vessels: normal peripheral pulses; no JVD Gastrointestinal (Abdomen): Inspection/Auscultation: abdomen normal to inspection and normal bowel sounds Percussion/Palpation: abdomen nontender, no hepatosplenomegaly and no abdominal mass Musculoskeletal: no cyanosis or clubbing, extremities motor strength 5/5 Spine: thoracic spine normal to inspection and lumbar spine normal to inspection; no cervical spinal tenderness Skin: no rashes, warm and dry normal turgor and + wound (Appears to be healing appropriately); no lesions Neurologic: patellar DTR's 2+ bilat, sensation intact no focal motor deficits Psychiatric: A+Ox3, euthymic affect Orientation: cooperative Lymphatic: no cervical or axillary lymphadenopathy no inguinal lymphadenopathy Results & Data Vital Signs (Past 12 Hours) Vital Signs Temp Pulse Resp BP BP Pulse Ox 05/31/19 12:05 36.8 C 78 16 128/64 91 05/31/19 07:50 94 05/31/19 07:25 36.8 C 72 16 148/60 H 97 Laboratory Results Laboratory Results - last 48 hr 05/30/19 06:24 WBC 9.17 RBC 3.71 L Hgb 11.6 L Hct 34.8 L MCV 93.8 MCH 31.3 MCHC 33.3 RDW Std Deviation 47.6 H RDW Coeff of Nunu 13.9 Plt Count 226 MPV 11.8 H Diagnostic Findings Microbiology 05/25/19 09:43 Blood Aerobic Blood Culture - Final No growth in Aerobic bottle after 5 days. 05/25/19 09:43 Blood Anaerobic Blood Culture - Final No growth in Anaerobic bottle after 5 days. 05/25/19 09:45 Blood Aerobic Blood Culture - Final No growth in Aerobic bottle after 5 days. 05/25/19 09:45 Blood Anaerobic Blood Culture - Final No growth in Anaerobic bottle after 5 days. 05/25/19 09:43 Blood Fungal Smear - Final 05/25/19 09:43 Blood Fungal Culture - Preliminary No yeast or fungus isolated - Report 1, Additional Report to Follow. 05/27/19 12:08 Urine,Straight Cath Urine Culture - Final No growth - less than 1,000 colonies/mL. 05/22/19 20:30 Peritoneal Fluid Gram Stain - Final 05/22/19 20:30 Peritoneal Fluid Aerobic and Anaerobic Culture - Final Escherichia coli Klebsiella pneumoniae Citrobacter amalonaticus Bacteroides fragilis group 05/22/19 20:30 Urine,Indwelling Cath Urine Culture - Final No growth - less than 1,000 colonies/mL. PG Care Time/CCT Total # of Minutes Spent Total Time Spent with Patient: Total time spent is greater than 50% in coordination of care (as documented) at patient's floor/unit and/or counseling patient:
--- NOTE | 2019-05-31 15:02 | Surgery Progress Note ---
Date of Service May 31, 2019 Assessment & Plan (1) Acute appendicitis with generalized peritonitis: Postoperative day #8 status post appendectomy for perforated appendicitis Doing well Awaiting placement and can discharge when that has been arranged Subjective Postoperative day #8 status post appendectomy for perforated appendicitis Feeling well Denies nausea and vomiting and tolerating regular diet Bowels are moving Having very little pain Physical Exam Gastrointestinal (Abdomen): Inspection/Auscultation: + abdominal surgical incision (Clean, dry and intact); abdomen not distended Percussion/Palpation: abdomen soft; abdomen nontender Results & Data Vital Signs (Past 12 Hours) Vital Signs Temp Pulse Resp BP BP Pulse Ox 05/31/19 12:05 36.8 C 78 16 128/64 91 05/31/19 07:50 94 05/31/19 07:25 36.8 C 72 16 148/60 H 97
--- NOTE | 2019-05-31 20:19 | Ultrasound Report ---
ULTRASOUND BILATERAL LOWER EXTREMITY VENOUS CLINICAL HISTORY: Lower extremity edema. COMPARISON STUDY: Bilateral lower extremity venous ultrasound dated 12/03/2013. TECHNIQUE: Real-time, grayscale, and color Doppler sonography of the deep veins of the right and left lower extremity was performed from the inguinal crease to the calf. Compression and augmentation wer e utilized. FINDINGS: There is no sonographic evidence of deep venous thrombosis identified in the right or left lower extremity. The common femoral, superficial femoral, and popliteal veins are patent and normally compressible bilaterally. The greater saphenous vein and the profunda femoris vein at the junction w ith the common femoral vein are clear in both legs. The visualized calf veins are patent bilaterally. Soft tissue edema is present in the calves. IMPRESSION: There is no sonographic evidence of deep venous thrombosis identified in the right or lef t lower extremity. Electronically signed by: Shahram Hastings M.D. 05/31/2019 8:18 PM
[2019-05-31] MEDS: TERAZOSIN HCL 5 MG CAP PO SCH (21:03)
[2019-05-31] MEDS: ATORVASTATIN 10 MG TAB PO SCH (21:03)
[2019-06-01] MEDS: HEPARIN SOD 5,000 UNIT/0.5 ML VIAL SQ SCH ×3 (06:00→21:14)
[2019-06-01] MEDS: LEVOTHYROXINE SODIUM 112 MCG TABLET PO SCH (06:00)
[2019-06-01] MEDS: LISINOPRIL 20 MG TAB PO SCH (08:46)
[2019-06-01] MEDS: CHOLECALCIFEROL 1,000 UNITS TAB PO SCH (08:46)
[2019-06-01] MEDS: carvediloL 3.125 MG TAB PO SCH ×2 (08:46→20:32)
[2019-06-01] MEDS: FAMOTIDINE 20 MG TAB PO SCH ×2 (08:46→20:32)
[2019-06-01] MEDS: HydrALAZINE TAB 50 MG TAB PO SCH ×3 (08:46→20:32)
[2019-06-01] MEDS: AMLODIPINE BESYLATE 5 MG TAB PO SCH (08:47)
[2019-06-01] MEDS: CITALOPRAM 20 MG TAB PO SCH (08:47)
[2019-06-01] MEDS: ALLOPURINOL 300 MG TAB PO SCH (08:47)
[2019-06-01 08:56] LABS: BUN Creatinine Ratio 7.5 (10-20); Calcium 8.1 mg/dl (8.5-10.1); Creatinine Clr Calc Pharmacy 62.4 ml/min; Potassium 3.6 mmol/L (3.5-5.1)
[2019-06-01] MEDS: ERTAPENEM SODIUM 1,000 MG in SODIUM CHLORIDE 0.9% 50 ML IV SCH (09:58)
--- NOTE | 2019-06-01 15:17 | Hospitalist Progress Note ---
Date of Service June 01, 2019 Assessment & Plan (1) Acute appendicitis with generalized peritonitis: ASSESSMENT AND PLAN: This is a 79-year-old male who presents with abdominal pain of 1-day duration, found to have acute appendicitis on CAT scan. 1. Acute appendicitis/peritonitis, started with laparoscopic appendectomy which was converted to open ileocecectomy, found to have pus throughout abdomen and friable bowel. - POD#8 - Peritoneal fluid culture (05/22/2019) + for E. coli, Klebsiella pneumoniae, Citrobacter amalonaticus and Bacteroides fragilis group (Citrobacter resistant to ceftriaxone) - ID consulted,switched from IV Zosyn to Ertapenem (per ID, Dr. Stock, pt will no t need any IV Abx on discharge) - Pathology A. CECUM AND TERMINAL ILEUM, ILEOCECECTOMY: - EXUDATIVE ACUTE APPENDICITIS WITH PERFORATION - BENIGN COLONIC AND ILEAL MUCOSA WITH SUPERFICIAL SEROSITIS - NEGATIVE FOR MALIGNANCY B. SMALL BOWEL, RESECTION: - BENIGN SMALL BOWEL MUCOSA WITH SUPERFICIAL SEROSITIS - SMALL FRAGMENT OF UNREMARKABLE COLONIC MUCOSA - NEGATIVE FOR MALIGNANCY -Started on clear liquid diet (05/27), now on a regular diet, and tolerating well -having BMs, dulcolax suppository prn 2. History of diastolic congestive heart failure, not on diuretics at home - continue Coreg, lisinopril (resumed) - Monitor for any volume overload 3. Hypertension -More hypertensive, his home medications were all resumed, now BP well controlled - resumed coreg, amlodipine, terazosin -Blood pressure now more elevated, resumed his home lisinopril and hydralazine as well - IV Lopressor p.r.n. - will cont. to monitor the blood pressure 4. Gastroesophageal reflux disease -on Prilosec at home, we will place on IV Pepcid. 5. Gout - cont. home allopurinol 6. Hyperlipidemia - cont. home atorvastatin 7. History of depression - cont. home Celexa 8. History of obstructive sleep apnea, CPAP at night 9. Hypothyroidism - cont. home levothyroxine 10. Recent diagnosis of monoclonal paraproteinemia. s/p Bone marrow biopsy. - Recent PET scan unremarkable. - Hematology/oncology currently observing. DVT prophylaxis: heparin subq and SCDs Disposition: likely SNF after d/c from hospital Subjective No acute events overnight, patient is sitting in the chair, comfortable. Denies any chest pain, palpitations, shortness of breath, fevers, chills, abdominal pain, nausea, vomiting. He has good p.o. intake and has BMs. Review of Systems Review of Systems: All systems reviewed & are unremarkable except as noted in HPI & below Constitutional: no fever, no chills and no fatigue Respiratory: no cough and no dyspnea Cardiovascular: no chest pain, no dyspnea on exertion and no palpitations Gastrointestinal: no abdominal pain, no nausea and no vomiting Physical Exam Constitutional: well developed and well nourished; no acute distress Eyes: PERRL, conjunctivae normal, anicteric sclerae EOM intact bilaterally ENMT: external ear and nose normal, oropharynx normal Neck: normal visual inspection Respiratory: normal respiratory effort, lungs clear to auscultation Auscultation: no wheezes Cardiovascular: RRR, no murmur, no edema Heart Sounds: no gallop Vessels: normal peripheral pulses; no JVD Chest (Breasts): Chest: normal inspection of chest Gastrointestinal (Abdomen): Inspection/Auscultation: normal bowel sounds; abdomen not distended Percussion/Palpation: + abdomen tender (Only very mild tenderness to palpation) and abdomen soft; no guarding and abdomen not rigid Musculoskeletal: Head/Neck/Chest: normocephalic, head atraumatic and neck supple Extremities: extremities normal to inspection Mild bilateral lower extremity edema Skin: no rashes, warm and dry Neurologic: PERRL, EOMI, accommodation nl, no face palsy, no dysarthria moves all extremities Psychiatric: A+Ox3, euthymic affect Lymphatic: + lymphedema (Mild bilateral lower extremity edema) Results & Data Vital Signs (Past 12 Hours) Vital Signs Temp Pulse Resp BP Pulse Ox 06/01/19 07:20 36.9 C 69 17 155/71 H 96 Laboratory Results 06/01/19 Range/Units 07:59 Sodium 140 (136-145) mmol/L Potassium 3.6 (3.5-5.1) mmol/L Chloride 105 (98-107) mmol/L Carbon Dioxide 28 (21-32) mmol/L Anion Gap 7.0 (3-11) BUN 9 (7-18) mg/dl Creatinine 1.22 (0.6-1.4) mg/dl Est Cr Clr Drug Dosing 62.4 ml/min Est GFR ( Amer) 65.0 Est GFR (Non-Af Amer) 56.0 BUN/Creatinine Ratio 7.5 L (10-20) Glucose 102 H (70-99) mg/dl Calcium 8.1 L (8.5-10.1) mg/dl Medications Administered Current Inpatient Medications Acetaminophen (Tylenol) 650 mg PO Q4H PRN PRN Reason: Fever/Mild Pain (Pain 1,2,3) Stop: 06/24/19 09:09 Last Admin: 05/27/19 13:53 Dose: 650 mg Documented by: [facility] ([facility]) [facility] Stop: 06/25/19 08:59 Last Admin: 06/01/19 08:47 Dose: 300 mg Documented by: Amlodipine Besylate (Norvasc) 10 mg PO QAM [facility] Stop: 06/24/19 09:29 Last Admin: 06/01/19 08:47 Dose: 10 mg Documented by: Atorvastatin Calcium (Lipitor) 5 mg PO HS [facility] Stop: 06/24/19 20:59 Last Admin: 05/31/19 21:03 Dose: 5 mg Documented by: Carvedilol (Coreg) 3.125 mg PO BID [facility] Stop: 06/24/19 09:29 Last Admin: 06/01/19 08:46 Dose: 3.125 mg Documented by: Citalopram Hydrobromide (Celexa) 20 mg PO QAM [facility] Stop: 06/24/19 13:59 Last Admin: 06/01/19 08:47 Dose: 20 mg Documented by: Famotidine (Pepcid) 20 mg PO BID [facility] Stop: 06/26/19 20:59 Last Admin: 06/01/19 08:46 Dose: 20 mg Documented by: Heparin Sodium (Porcine) (Heparin Sodium (Porcine)) 5,000 units SQ Q8 [facility] Stop: 06/23/19 13:59 Last Admin: 06/01/19 13:07 Dose: 5,000 units Documented by: Hydralazine HCl (Hydralazine Hcl) 10 mg IV Q6H PRN PRN Reason: Hypertension Stop: 06/22/19 19:17 Last Admin: 05/30/19 15:35 Dose: 10 mg Documented by: Hydralazine HCl (Apresoline) 50 mg PO TID [facility] Stop: 06/29/19 20:59 Last Admin: 06/01/19 13:08 Dose: 50 mg Documented by: Ertapenem 1,000 mg/ Sodium (Chloride) 60 mls @ 100 mls/hr IV Q24H [facility]; Protocol Stop: 06/04/19 09:59 Last Infusion: 06/01/19 10:34 Dose: Infused Documented by: Ondansetron HCl 8 mg/ Dextrose 54 mls @ 200 mls/hr IV Q4H PRN PRN Reason: Nausea And Vomiting Stop: 06/24/19 15:10 Last Infusion: 05/28/19 12:56 Dose: Infused Documented by: Levothyroxine Sodium (Synthroid) [facility] Stop: 06/25/19 06:29 Last Admin: 06/01/19 06:00 Dose: 112 mcg Documented by: Lisinopril (Zestril) [facility] Stop: 06/30/19 08:59 Last Admin: 06/01/19 08:46 Dose: 20 mg Documented by: Metoprolol Tartrate (Lopressor) 5 mg IV Q4 PRN PRN Reason: Tachycardia Stop: 06/22/19 00:00 Last Admin: 05/24/19 19:51 Dose: 5 mg Documented by: Morphine Sulfate (Morphine Sulfate) 1 mg IV Q2H PRN PRN Reason: Mild Pain Stop: 06/08/19 11:29 Morphine Sulfate (Morphine Sulfate) 2 mg IV Q2H PRN PRN Reason: Moderate Pain Stop: 06/08/19 11:29 Last Admin: 05/26/19 23:59 Dose: 2 mg Documented by: Morphine Sulfate (Morphine Sulfate) 4 mg IV Q2H PRN PRN Reason: Severe Pain Stop: 06/08/19 11:29 Oxycodone HCl (Roxicodone Immediate Rel) 5 mg PO Q6H PRN PRN Reason: Moderate Pain (4,5,6) Stop: 06/08/19 09:09 Last Admin: 05/27/19 13:54 Dose: 5 mg Documented by: Oxycodone HCl (Roxicodone Immediate Rel) 10 mg PO Q6H PRN PRN Reason: Severe Pain (7,8,9,10) Stop: 06/08/19 09:09 Last Admin: 05/28/19 10:12 Dose: 10 mg Documented by: Terazosin HCl (Hytrin) 5 mg PO [facility] Stop: 06/24/19 20:59 Last Admin: 05/31/19 21:03 Dose: 5 mg Documented by: Vitamin D (Vitamin D3) 2,000 units PO [facility] Stop: 06/25/19 08:59 Last Admin: 06/01/19 08:46 Dose: 2,000 units Documented by:
--- NOTE | 2019-06-01 16:02 | Surgery Progress Note ---
Date of Service June 01, 2019 Assessment & Plan (1) Acute appendicitis with generalized peritonitis: Postoperative day 9 status post appendectomy for ruptured appendicitis Doing well Plan for discharge tomorrow with home health care and a hospital bed Can call the office tomorrow for an appointment early next week with Dr. Coronado Deepika can be removed by home nursing on Friday Subjective Postoperative day #9 status post appendectomy for ruptured appendicitis Feels very well Tolerating regular diet Moving bowels No redness or drainage around the incision Appreciate complex case manager help Patient has decided to go home with a hospital bed and home nursing care Physical Exam Gastrointestinal (Abdomen): Inspection/Auscultation: + abdominal surgical incision (Clean, dry and intact); abdomen not distended Percussion/Palpation: abdomen soft; abdomen nontender Results & Data Vital Signs (Past 12 Hours) Vital Signs Temp Pulse Resp BP BP Pulse Ox 06/01/19 15:32 37 C 73 16 135/55 L 91 06/01/19 07:20 36.9 C 69 17 155/71 H 96
[2019-06-01] MEDS: TERAZOSIN HCL 5 MG CAP PO SCH (20:32)
[2019-06-01] MEDS: ATORVASTATIN 10 MG TAB PO SCH (20:32)
[2019-06-02] MEDS: HEPARIN SOD 5,000 UNIT/0.5 ML VIAL SQ SCH (05:20)
[2019-06-02] MEDS: LEVOTHYROXINE SODIUM 112 MCG TABLET PO SCH (05:20)
--- NOTE | 2019-06-02 06:19 | Surgery Progress Note ---
Date of Service June 02, 2019 Assessment & Plan (1) Acute appendicitis with generalized peritonitis: Postoperative day #12 status post appendectomy Doing well Hospital bed arranged at home for today Home nursing arranged Can discharge to home Follow-up next week for staple removal Discussed postoperative activity restrictions Subjective Postoperative day #12 status post appendectomy for ruptured appendicitis Doing well Tolerating diet Not having any pain Passing bowels Physical Exam Gastrointestinal (Abdomen): Inspection/Auscultation: normal bowel sounds and + abdominal surgical incision (Clean, dry and intact); abdomen not distended Percussion/Palpation: abdomen soft; abdomen nontender Results & Data Vital Signs (Past 12 Hours) Vital Signs Temp Pulse Pulse Resp BP Pulse Ox 06/01/19 23:17 37.2 C 74 16 143/67 H 93 06/01/19 20:28 85 161/61 H 97
[2019-06-02 07:05] VITALS: TEMP 98.6; O2SAT 91
[2019-06-02] MEDS: ALLOPURINOL 300 MG TAB PO SCH (07:36)
[2019-06-02] MEDS: carvediloL 3.125 MG TAB PO SCH (07:36)
[2019-06-02] MEDS: AMLODIPINE BESYLATE 5 MG TAB PO SCH (07:36)
[2019-06-02] MEDS: CITALOPRAM 20 MG TAB PO SCH (07:37)
[2019-06-02] MEDS: HydrALAZINE TAB 50 MG TAB PO SCH (07:37)
[2019-06-02] MEDS: CHOLECALCIFEROL 1,000 UNITS TAB PO SCH (07:37)
[2019-06-02] MEDS: LISINOPRIL 20 MG TAB PO SCH (07:37)
[2019-06-02] MEDS: FAMOTIDINE 20 MG TAB PO SCH (07:37)
[2019-06-02] MEDS: ERTAPENEM SODIUM 1,000 MG in SODIUM CHLORIDE 0.9% 50 ML IV SCH (09:02)
[2019-06-02 09:56] VITALS: BP 155/71; PULSE 85
== END 2019-06-02 11:02 | disposition home health service (06) | DRG 329 ==
LOC: ED 13:21 → ASU 19:25 → 1E 21:04 → 2S 05-25 11:38 → 3W 05-30 12:58

== ENCOUNTER 2019-07-11 11:33 | Observation (INO) ==
--- NOTE | 2019-07-11 12:22 | Emergency Department Note ---
History of Present Illness General Chief complaint: Referred by Doctor Stated complaint: CHECK FOR BLOOD CLOT Time Seen by Provider: 07/11/19 11:56 Source: patient and family Mode of arrival: ambulatory Limitations: no limitations History of Present Illness Maximum Pain Intensity: 5 This 79-year-old white male presents with his daughter, for evaluation of shortness of breath. Symptoms have been ongoing for about a week, and are worse with exertion. Patient was seen by his PCP Dr. Stout, yesterday, and had a chest x-ray and lab work obtained. His chest x-ray was reportedly abnormal in the lower lobes, suggesting pneumonia. He was started on Levaquin at that time. Patient states he has had 2 doses. Blood work results were not available yesterday. Patient states he was called this morning and told that his troponin and his d-dimer were abnormal. Because of this, he was sent to the ED for further evaluation. Patient denies any chest pain. No recent travel. He denies any pain in his legs. He has had no cold type symptoms for the last several days. No cough. No fevers or chills. No history of blood clots. He also complains of some left-sided flank pain that has been present for the last 2 or 3 days. It is more annoying and aggravating than anything. 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 He has been doing well since recovering from that surgery. No other treatment. No other complaints. Home Medications Home Medications Medication Instructions Recorded Confirmed Type allopurinol 300 mg PO QAM 04/30/18 07/11/19 History atorvastatin 5 mg PO HS 04/30/18 07/11/19 History cholecalciferol (vitamin D3) 2,000 unit PO QPM 04/30/18 07/11/19 History [Vitamin D3] citalopram [Celexa] 20 mg PO QAM 04/30/18 07/11/19 History hydralazine 50 mg PO TID 04/30/18 07/11/19 History magnesium oxide 400 mg PO QPM 04/30/18 07/11/19 History omeprazole 40 mg PO HS 04/30/18 07/11/19 History terazosin 5 mg PO HS 04/30/18 07/11/19 History carvedilol 3.125 mg PO BID 09/18/18 07/11/19 History levothyroxine 112 mcg PO DAILY 05/22/19 07/11/19 History amlodipine 10 mg PO DAILY 07/11/19 07/11/19 History Allergies Allergy/AdvReac Type Severity Reaction Status Date / Time No Known Allergies Allergy Verified 07/11/19 13:10 Past Med/Surg History Medical History Acute respiratory failure with hypoxia (Acute) 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) Carpal tunnel syndrome (Chronic) CKD (chronic kidney disease), stage III (Chronic) Diastolic heart failure (Chronic) GERD (gastroesophageal reflux disease) (Chronic) Gout (Chronic) History of cardiac arrhythmia (Resolved) History of paroxysmal supraventricular tachycardia (Resolved) Hyperlipidemia Hypertension (Chronic) Insomnia (Chronic) LBBB (left bundle branch block) (Chronic) Monoclonal paraproteinemia Morbid (severe) obesity due to excess calories 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 SVT in setting of hypokalemia noted during that admission. Admitted again to [facility] 07/28-07/30/18 for pneumonia with hypoxia. No arrhythmia noted. Lungs CTA B/L on exam at PAT 09/25. Prolonged QT interval (Chronic) Restless leg syndrome (Chronic) Sepsis Surgical History H/O cataract removal with insertion of prosthetic lens H/O knee surgery H/O sinus surgery History of appendectomy History of bilateral knee arthroplasty History of cataract surgery RT/LEFT History of colonoscopy History of esophagogastroduodenoscopy (EGD) History of hip surgery History of tooth extraction History of total right hip arthroplasty Hx of cholecystectomy Status post total hip replacement, left Family History Father Heart disease Mother Diabetes Hypertension Brother Family hx of colon cancer Social History Preferred Language: Senegalese Communication Ability: Effective Branch Manager Required: No Beliefs That Will Affect Care: None marital status: Current Living Situation: Spouse Feels Safe at Home: Yes Smoking Status: Never smoker Second Hand Exposure: No ; Hx Alcohol Use: No Hx Substance Use: No Review of Systems A total of 10 systems reviewed and were otherwise negative Physical Exam Vital Signs Vital Signs - 24 hr 07/11/19 11:43 07/11/19 12:07 07/11/19 12:08 Temperature 36.5 C Temperature Source Oral Pulse Rate 65 Pulse Rate [Right Finger] 80 Respiratory Rate 20 22 Respiratory Effort / Characteristics Non-Labored Spontaneous Respiratory Depth Normal Respiratory Pattern Regular Blood Pressure 154/74 H Blood Pressure [Right Arm] 155/74 H Blood Pressure Mean 100 Blood Pressure Mean [Right Arm] 101 Pulse Oximetry 95 94 Oxygen Delivery Method Room Air Room Air Room Air Sepsis Recent Fever Within 48 Hours No Sepsis New/Unexplained Change in Mental Status No Sepsis Action Taken by Nursing No Action Required 07/11/19 12:36 Temperature Temperature Source Pulse Rate Pulse Rate [Right Finger] 65 Respiratory Rate 22 Respiratory Effort / Characteristics Respiratory Depth Normal Respiratory Pattern Blood Pressure Blood Pressure [Right Arm] 146/77 H Blood Pressure Mean Blood Pressure Mean [Right Arm] 100 Pulse Oximetry 93 Oxygen Delivery Method Room Air Sepsis Recent Fever Within 48 Hours Sepsis New/Unexplained Change in Mental Status Sepsis Action Taken by Nursing General: Well-developed, well-nourished, elderly white male, in no acute distress. Sitting on the bed. Alert and oriented. Appears mildly ill. Skin: Warm and dry with fair turgor. No rashes or lesions. No ecchymosis or erythema. The patient is not diaphoretic. No abrasions. HEENT: Normocephalic atraumatic. Eyes PERRLA, EOMI. No conjunctiva or scleral injection. Ears TMs intact bilaterally with good light reflexes. No erythema o r bulging. No hemotympanum. Canals are patent. Nares patent bilaterally without turbinate enlargement. No significant drainage. No epistaxis. Oropharynx without erythema or exudate. Uvula midline, oral mucosa moist. No lesions present. Heart: Heart RRR. No MGR. Peripheral pulses are 2+. Lungs: Lungs are clear to auscultation. Diminished breath sounds on the left base. No crackles rhonchi or wheezing. Fair air movement. The patient is able to take a deep breath. Abdomen: Abdomen was inspected, auscultated, and palpated. Obese. Bowel sounds present x 4. Soft, nontender to palpation. No hepato-splenomegaly. No masses noted. No rebound. Mild left CVA tenderness. Musculoskeletal: Gross motor function of the upper and lower extremities is intact and unremarkable. No discomfort with palpation over the anterior chest wall. Neurologic: Gross sensation is intact across the upper and lower extremities by soft touch. Course Administered Medications Discontinued Medications Allopurinol (Zyloprim) 300 mg PO QAM [facility]INCENT Stop: 08/11/19 08:59 Last Admin: 07/13/19 08:17 Dose: 300 mg Documented by: [id number] Admin: 07/12/19 08:46 Dose: 300 mg Documented by: [id number] Amlodipine Besylate (Norvasc) 10 mg PO DAILY VINCENT Stop: 08/11/19 08:59 Last Admin: 07/13/19 08:17 Dose: 10 mg Documented by: [id number] Admin: 07/12/19 08:45 Dose: 10 mg Documented by: [id number] Atorvastatin Calcium (Lipitor) 5 mg PO HS VINCENT Stop: 08/10/19 20:59 Last Admin: 07/12/19 20:18 Dose: 5 mg Documented by: [id number] Admin: 07/11/19 20:21 Dose: 5 mg Documented by: [id number] Carvedilol (Coreg) 3.125 mg PO BID VINCENT Stop: 08/10/19 20:59 Last Admin: 07/13/19 08:16 Dose: 3.125 mg Documented by: [id number] Admin: 07/12/19 20:17 Dose: 3.125 mg Documented by: [id number] Admin: 07/12/19 08:46 Dose: 3.125 mg Documented by: [id number] Admin: 07/11/19 20:23 Dose: 3.125 mg Documented by: [id number] Citalopram Hydrobromide (Celexa) 20 mg PO QAM VINCENT Stop: 08/11/19 08:59 Last Admin: 07/13/19 08:16 Dose: 20 mg Documented by: [id number] Admin: 07/12/19 08:46 Dose: 20 mg Documented by: [id number] Hydralazine HCl (Apresoline) 50 mg PO TID VINCENT Stop: 08/10/19 20:59 Last Admin: 07/13/19 13:40 Dose: 50 mg Documented by: [id number] Admin: 07/13/19 08:16 Dose: 50 mg Documented by: [id number] Admin: 07/12/19 20:17 Dose: 50 mg Documented by: [id number] Admin: 07/12/19 14:16 Dose: 50 mg Documented by: [id number] Admin: 07/12/19 08:46 Dose: 50 mg Documented by: [id number] Admin: 07/11/19 20:20 Dose: 50 mg Documented by: [id number] Magnesium Sulfate/Dextrose (Magnesium Sulfate / D5w) 1 gm in 100 mls @ 100 mls/hr IV ONE ONE Stop: 07/12/19 06:46 Last Infusion: 07/12/19 07:38 Dose: 0 mls/hr Documented by: [id number] Admin: 07/12/19 06:25 Dose: 100 mls/hr Documented by: [id number] Ioversol (Optiray 320 125ml) 119 ml IV ONCE PRN PRN Reason: Interaction Checking Stop: 07/15/19 13:47 Last Admin: 07/11/19 13:49 Dose: 119 ml Documented by: [id number] Levothyroxine Sodium (Synthroid) 112 mcg PO DAILYBB [facility] Stop: 08/11/19 06:29 Last Admin: 07/13/19 05:45 Dose: 112 mcg Documented by: [id number] Admin: 07/12/19 05:06 Dose: 112 mcg Documented by: [id number] Lisinopril (Zestril) 20 mg PO QAM VINCENT Stop: 08/11/19 08:59 Last Admin: 07/13/19 08:17 Dose: 20 mg Documented by: [id number] Admin: 07/12/19 08:46 Dose: 20 mg Documented by: [id number] Magnesium Oxide (Mag-Ox) 400 mg PO QPM VINCENT Stop: 08/10/19 20:59 Last Admin: 07/12/19 20:19 Dose: 400 mg Documented by: [id number] Admin: 07/11/19 20:23 Dose: 400 mg Documented by: [id number] Pantoprazole Sodium (Protonix) 40 mg PO HS VINCENT Stop: 08/10/19 20:59 Last Admin: 07/12/19 20:19 Dose: 40 mg Documented by: [id number] Admin: 07/11/19 20:22 Dose: 40 mg Documented by: [id number] Potassium Chloride (Klor-Con M20) 20 meq PO NOW STA Stop: 07/11/19 15:48 Last Admin: 07/11/19 16:31 Dose: 20 meq Documented by: [id number] Potassium Chloride (Klor-Con M20) 20 meq PO QPM [facility]ENT Stop: 08/10/19 20:59 Last Admin: 07/12/19 20:18 Dose: 20 meq Documented by: [id number] Admin: 07/11/19 20:23 Dose: 20 meq Documented by: [id number] Potassium Chloride (Klor-Con M20) 60 meq PO NOW STA Stop: 07/12/19 05:48 Last Admin: 07/12/19 06:21 Dose: 60 meq Documented by: [id number] Terazosin HCl (Hytrin) 5 mg PO HS VINCENT Stop: 08/10/19 20:59 Last Admin: 07/12/19 20:19 Dose: 5 mg Documented by: [id number] Admin: 07/11/19 20:22 Dose: 5 mg Documented by: [id number] Vitamin D (Vitamin D3) 2,000 units PO QPM VINCENT Stop: 08/10/19 20:59 Last Admin: 07/12/19 20:19 Dose: 2,000 units Documented by: [id number] Admin: 07/11/19 20:22 Dose: 2,000 units Documented by: [id number] Medical Decision Making Differential Diagnosis Pneumonia, PE, COPD exacerbation, pulmonary effusion, bronchitis Medical Records Attestation: I reviewed the patient's medical records. Home Medications Current Medication List: was personally reviewed by me Laboratory Data Attestation: I reviewed the patient's lab results. CBC, INR, chemistry panel, CK/CK-MB, troponin, and lipase were obtained. CBC shows mild anemia with H&H of 10.6 and 32.3. No elevation in white count. Normal platelets. INR normal at 1.1. Essentially normal chemistry panel with no significant abnormalities. Normal CK and CK-MB. Normal troponin at less than 0.015. Normal lipase at 114. Albumin low at 2.9. Result diagrams: 07/12/19 07:14 07/13/19 11:12 Lab Results 07/11/19 07/11/19 07/11/19 Range/Units 12:10 12:10 12:10 WBC 5.82 (4.8-10.8) K/uL RBC 3.44 L (4.7-6.1) M/uL Hgb 10.6 L (14.0-18.0) g/dL Hct 32.3 L (42-52) % MCV 93.9 (80-100) fL MCH 30.8 (25-34) pg MCHC 32.8 (32-36) g/dL RDW Std Deviation 52.1 H (36.4-46.3) fL RDW Coeff of [place] 15.2 H (11.5-14.5) % Plt Count 200 (130-400) K/uL MPV 11.5 H (7.4-10.4) fL Immature Gran % (Auto) 0.2 % Neut % (Auto) 73.8 % Lymph % (Auto) 15.6 % Petroleum % (Auto) 6.0 % Eos % (Auto) 4.1 % Baso % (Auto) 0.3 % Immature Gran # (Auto) 0.01 (0.00-0.02) K/uL Neut # (Auto) 4.29 (1.4-6.5) K/uL Lymph # (Auto) 0.91 L (1.2-3.4) K/uL Petroleum # (Auto) 0.35 (0.11-0.59) K/uL Eos # (Auto) 0.24 (0-0.5) K/uL Baso # (Auto) 0.02 (0-0.2) K/uL PT 11.0 (9.0-12.0) Seconds INR 1.1 (0.9-1.1) Sodium 142 (136-145) mmol/L Potassium 3.4 L (3.5-5.1) mmol/L Chloride 109 H (98-107) mmol/L Carbon Dioxide 28 (21-32) mmol/L Anion Gap 5.0 (3-11) BUN 14 (7-18) mg/dl Creatinine 1.33 (0.6-1.4) mg/dl Est Cr Clr Drug Dosing 53.5 ml/min Est GFR ( Amer) 58.5 Est GFR (Non-Af Amer) 50.5 BUN/Creatinine Ratio 10.8 (10-20) Glucose 117 H (70-99) mg/dl Calcium 7.9 L (8.5-10.1) mg/dl Total Bilirubin 0.6 (0.2-1) mg/dl Direct Bilirubin 0.2 (0-0.2) mg/dl AST 10 L (15-37) U/L ALT 13 (12-78) U/L Alkaline Phosphatase 63 (45-117) U/L Total Creatine Kinase 52 (39-308) U/L CK-MB (CK-2) 1.4 (0.5-3.6) ng/ml CK/CKMB % Calc 2.7 (0-3.0) Troponin I < 0.015 (0-0.045) ng/ml Total Protein 6.1 L (6.4-8.2) gm/dl Albumin 2.9 L (3.4-5.0) gm/dl Globulin 3.2 (2.5-4.0) gm/dl Albumin/Globulin Ratio 0.9 (0.9-2) Lipase 114 (73-393) U/L Imaging Data Radiologist's Impression: CT imaging of the chest with IV contrast was obtained to rule out PE. This was reviewed by me and read by radiology. Study is negative for 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. Moderately large left pleural effusion. Consolidative and/or atelectatic change left base. Moderate mediastinal adenopathy. ECG Data Attestation: I personally reviewed and interpreted this ECG as follows: Additional Comments: EKG obtained today was reviewed with Dr. Hadley. Sinus rhythm with a rate of 67. 1st degree A-V block and left bundle branch block. When compared with ECG from MAY-2019 no significant change Blood Pressure Blood Pressure Findings: Elevated blood pressure MDM Narrative Patient was evaluated today in room A12. Patient was placed on a monitor and remained so during his time in the ED. IV was established. Labs were obtained. EKG was obtained. It is unchanged from May 2019. Renal function is adequate, and CT scan imaging of the chest with IV contrast was obtained to rule out PE. This was negative for emboli. Large pleural effusion was noted. Consolidative changes were also present in the left base. Patient did maintain adequate oxygen saturation on room air. However, because of the large pulmonary effusion and his physical exam findings, recommendation was made for admission. He and his daughter are in agreement. [facility]. Please see that dictation for final management. Patient remained stable while in the ED. Patient was seen in conjunction with Dr. Hadley, who also evaluated the patient and concurred with today's diagnosis and treatment plan. Impression & Plan Pleural effusion, Shortness of breath Discharge Plan Visit Data *Final* Discharge Date/Time: 07/11/19 16:53 Chief Complaint: Referred by Doctor Stated Complaint: CHECK FOR BLOOD CLOT ED Provider: Martinez Hadley ED Midlevel Provider: Meet Lopez Discharge Problem: Pleural effusion, Shortness of breath Patient Disposition: Admitted As Inpatient Discharge Instructions Interventions: ED Discharge Assessment Last Done: 07/11/19 16:53
[2019-07-11 12:33] LABS: Basophils # (auto) 0.02 K/uL (0-0.2); Basophils % (auto) 0.3 %; Eosinophils # (auto) 0.24 K/uL (0-0.5); Eosinophils % (auto) 4.1 %; Hematocrit (blood only) 32.3 % (42-52); Hemoglobin 10.6 g/dL (14.0-18.0); Immature Granulocytes # (auto) 0.01 K/uL (0.00-0.02); Immature Granulocytes % (auto) 0.2 %; Lymphocytes # (auto) 0.91 K/uL (1.2-3.4); Lymphocytes % (auto) 15.6 %; Mean Corpuscular Hemoglobin 30.8 pg (25-34); Mean Corpuscular Hgb Conc 32.8 g/dL (32-36); Mean Corpuscular Volume 93.9 fL (80-100); Mean Platelet Volume 11.5 fL (7.4-10.4); Monocytes # (auto) 0.35 K/uL (0.11-0.59); Neutrophils # (auto) 4.29 K/uL (1.4-6.5); Neutrophils % (auto) 73.8 %; Platelet Count 200 K/uL (130-400); RDW Coefficient of Variation 15.2 % (11.5-14.5); RDW Standard Deviation 52.1 fL (36.4-46.3); Red Blood Count 3.44 M/uL (4.7-6.1); White Blood Count 5.82 K/uL (4.8-10.8)
[2019-07-11 12:43] LABS: Alanine Aminotransferase 13 U/L (12-78); Albumin Level 2.9 gm/dl (3.4-5.0); Aspartate Aminotransferase 10 U/L (15-37); BUN Creatinine Ratio 10.8 (10-20); Bilirubin Direct 0.2 mg/dl (0-0.2); Blood Urea Nitrogen 14 mg/dl (7-18); Calcium 7.9 mg/dl (8.5-10.1); Carbon Dioxide 28 mmol/L (21-32); Chloride 109 mmol/L (98-107); Creatinine Clr Calc Pharmacy 53.5 ml/min; Est GFR (African American) 58.5; Est GFR (Non-African American) 50.5; Glucose 117 mg/dl (70-99); INR 1.1 (0.9-1.1); Potassium 3.4 mmol/L (3.5-5.1); Sodium 142 mmol/L (136-145)
[2019-07-11 12:48] LABS: Albumin Globulin Ratio 0.9 (0.9-2); Alkaline Phosphatase 63 U/L (45-117); Bilirubin,Total 0.6 mg/dl (0.2-1); Creatine Kinase 52 U/L (39-308); Creatine Kinase MB 1.4 ng/ml (0.5-3.6); Globulin 3.2 gm/dl (2.5-4.0); Total Protein 6.1 gm/dl (6.4-8.2); Troponin I < 0.015 ng/ml (0-0.045)
--- NOTE | 2019-07-11 13:14 | Electrocardiogram Report ---
Test Reason : Blood Pressure : / mmHG Vent. Rate : 067 BPM Atrial Rate : 067 BPM P-R Int : 250 ms QRS Dur : 148 ms QT Int : 476 ms P-R-T Axes : 000 -20 108 degrees QTc Int : 502 ms Sinus rhythm with 1st degree A-V block Left bundle branch block Abnormal ECG When compared with ECG of 25-MAY-2019 10:35, No significant change Confirmed by Kvng Cain ([id number]) on 07/11/2019 1:13:53 PM Referred By: Musa Stout Confirmed By:Kvng Cain
[2019-07-11] MEDS ORDERED: OPTIRAY 320 125ml IV PRN (13:48)
--- NOTE | 2019-07-11 14:20 | CT Scan Report ---
CT angio chest PE protocol CT DOSE: 815.72 mGy.cm HISTORY: Chest pain. Dyspnea. r/o PE, abnormal Dimer and CXR TECHNIQUE: Multiaxial CT images of the chest were performed following the intravenous administration of contrast to evaluate the pulmonary arteries. Maximal intensity projection images were also obtaine d. A dose lowering technique was utilized adhering to the principles of ALARA. COMPARISON STUDY: 05/06/2018 FINDINGS: The pulmonary vasculature enhances appropriately. No significant filling defects within the pulmonary arterial structures. Moderate mediastinal and hilar adenopathy similar as compared to the prior study. Interval development or other significant left pleural effusion. Partial atelectasis left lower lobe. IMPRESSION: 1. Study is negative for 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. 2. Moderately large left pleural effusion. 3. Consolidative and/or atelectatic change left base. 4. Moderate mediastinal adenopathy unchanged ACT 112: Negative or not required by law. The above report was generated using voice recognition software. It may contain grammatical, syntax or spelling errors. Electronically signed by: Amadeo Manzo M.D. 07/11/2019 2:18 PM
--- NOTE | 2019-07-11 14:21 | Emergency Department Note ---
ED Visit Note This is a 79-year-old male who presents to the ED with a chief complaint of left low back pain as well as some shortness of breath. The patient had some outpatient studies that revealed an elevated d-dimer and elevated troponin, per the PA. The patient does have some diminished breath sounds on left. I did review the CT scan. I have personally seen and evaluated the patient with the physician multimedia production assistant. I agree with the diagnostic/management decisions and have personally been involved in these decisions and agree with the diagnosis. .
[2019-07-11] MEDS ORDERED: POTASSIUM CHLORIDE 20 MEQ TABCR PO STA (15:47)
--- NOTE | 2019-07-11 15:50 | History & Physical Report ---
Date of Service July 11, 2019 Assessment & Plan (1) Shortness of breath: (2) Pleural effusion: Pt is 79 y/o F with PMH HTN, HLD, diastolic heart failure, hypothyroidism, gout, obesity, NAHEED, GERD, BPH, RLS, depression, CKD III, monoclonal paraproteinemia presented with C/O SOB x1 week, worse with exertion. Patient was seen at PCPs office yesterday for symptoms and had elevated high- sensitivity troponin T at 46 (0-22 range), and elevated d-dimer at 7.6 (<0.5 range) In ER afebrile, P: 6 5, RR: 20, BP: 154/74, 95% on room air No leukocytosis, negative troponin. No cough CTA CHEST: Study is negative for 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. Moderately large left pleural effusion. Consolidative and/or atelectatic change left base. Moderate mediastinal adenopathy unchanged -Supplemental oxygen if patient would require -Thoracic surgery consulted. Pt and pt's daughters preference. Spoke with Dr Jeffries and reports will follow tomorrow and likely thoracentesis -Will hold on antibiotics as pt without cough, leukocytosis or fever (3) Left flank pain: Also reported intermittent LUQ, left flank pain this week. Intermittent dysuria x 1 week R/O UTI, pyelonephritis, kidney stones, mass, pancreatitis -Lipase pending -UA pending -pending CT abd/pelvis (pt had IV contrast earlier today) (4) Monoclonal paraproteinemia: Patient following with Dr. Dodge. Current work-up. Had bone marrow biopsy. PET scan 04/2019: No metabolic active osteolytic lesion Currently following (5) Hypertension: -Continue amlodipine, hydralazine, carvedilol, lisinopril (6) Diastolic heart failure: H/O Echo 01/2019: EF: 55-59%, small anterior loculated pericardial effusion with no change since 12/18/18 -Continue carvedilol, lisinopril (7) Hyperlipidemia: -Continue atorvastatin (8) CKD (chronic kidney disease), stage III: Cr: 1.3. Baseline 1.3-1.4 -Monitor renal functions -Avoid nephrotoxic agents when possible (9) Anemia, unspecified: Hgb: 10.6. Baseline Hgb ~12 -Monitor H&H (10) GERD (gastroesophageal reflux disease): -Continue PPI (11) Gout: -Continue allopurinol (12) Hypothyroidism: -Continue levothyroxine (13) Obstructive sleep apnea on CPAP: -CPAP at bedtime (14) Major depression: -Continue citalopram (15) BPH (benign prostatic hyperplasia): -Continue terazosin DVT Prophylaxis -SCDs for now as probable procedure Full Code as per discussion with pt Follows with Dr Stout for routine care Pt was seen and care coordinated with Dr Jones. See addendum History of Present Illness Chief Complaint: SOB Primary Care Provider: Musa Stout MD Pt is 79 y/o F with PMH HTN, HLD, diastolic heart failure, hypothyroidism, gout, obesity, NAHEED, GERD, BPH, RLS, depression, CKD III, monoclonal paraproteinemia presented to ER with complaint of shortness of breath x1 week. Patient states for past week has been short of breath with exertion and reports some slight shortness of breath at rest. Patient also complains of intermittent left upper quadrant, left flank and left back pain for the last couple of days which she describes as a "agitated" sensation without any aggravating or alleviating factors. Denies chest pain, cough, fever, chills. Patient denies any injuries. He reports intermittent dysuria over the past week. Denies hematuria, urinary frequency, urinary retention. Patient was seen at PCPs office yesterday for symptoms and had elevated high-sensitivity troponin T at 46 (0-22 range), and elevated d-dimer at 7.6 (<0.5 range) and was referred to ER today. He was started on Levaquin for suspected pneumonia. Patient reports has taken 2 doses. Patient with recent hospital admission in 05/2019 for ruptured appendicitis, purulent peritonitis, bowel resection. Patient states his been doing well since that time however he did have some weight loss during that admission reports is been trying to maintain that weight loss. Denies night sweats. Denies fever/chills, N/V/D/C, CUELLAR, dizziness, syncope, vision changes, neck pain, palpitations, hemoptysis, sore throat, choking, otalgia, rhinorrhea, other abdominal pain, paresthesias, weakness, extremity weakness, extremity edema, rashes. Allergies Allergy/AdvReac Type Severity Reaction Status Date / Time No Known Allergies Allergy Verified 07/11/19 13:10 Home Medications Home Medications Medication Instructions Recorded Confirmed Type allopurinol 300 mg PO QAM 04/30/18 07/11/19 History atorvastatin 5 mg PO HS 04/30/18 07/11/19 History cholecalciferol (vitamin D3) 2,000 unit PO QPM 04/30/18 07/11/19 History [Vitamin D3] citalopram [Celexa] 20 mg PO QAM 04/30/18 07/11/19 History hydralazine 50 mg PO TID 04/30/18 07/11/19 History magnesium oxide 400 mg PO QPM 04/30/18 07/11/19 History omeprazole 40 mg PO HS 04/30/18 07/11/19 History terazosin 5 mg PO HS 04/30/18 07/11/19 History carvedilol 3.125 mg PO BID 09/18/18 07/11/19 History lisinopril 20 mg PO QAM 09/18/18 07/11/19 History potassium chloride 20 meq PO QPM 09/18/18 07/11/19 History levothyroxine 112 mcg PO DAILY 05/22/19 07/11/19 History amlodipine 10 mg PO DAILY 07/11/19 07/11/19 History Past Med/Surg History Medical History (Updated 07/11/19 @ 16:44 by Mulu Garcia PA-C) Acute respiratory failure with hypoxia (Acute) 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) Carpal tunnel syndrome (Chronic) CKD (chronic kidney disease), stage III (Chronic) Diastolic heart failure (Chronic) GERD (gastroesophageal reflux disease) (Chronic) Gout (Chronic) History of cardiac arrhythmia (Resolved) History of paroxysmal supraventricular tachycardia (Resolved) Hyperlipidemia Hypertension (Chronic) Insomnia (Chronic) LBBB (left bundle branch block) (Chronic) Monoclonal paraproteinemia Morbid (severe) obesity due to excess calories 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 SVT in setting of hypokalemia noted during that admission. Admitted again to [facility] 07/28-07/30/18 for pneumonia with hypoxia. No arrhythmia noted. Lungs CTA B/L on exam at [facility] 09/25. Prolonged QT interval (Chronic) Restless leg syndrome (Chronic) Sepsis Surgical History H/O cataract removal with insertion of prosthetic lens H/O knee surgery H/O sinus surgery History of appendectomy History of bilateral knee arthroplasty History of cataract surgery RT/LEFT History of colonoscopy History of esophagogastroduodenoscopy (EGD) History of hip surgery History of tooth extraction History of total right hip arthroplasty Hx of cholecystectomy Status post total hip replacement, left Family History Father Heart disease Mother Diabetes Hypertension Brother Family hx of colon cancer Social History Preferred Language: Belarusian Communication Ability: Effective 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 Beliefs That Will Affect Care: None marital status: Current Living Situation: Spouse Other Information That Helps Us Care for You: No Feels Safe at Home: Yes Safety Concerns: Feels Safe At This Time Smoking Status: Never smoker Do You Dip or Chew Tobacco: No ; Second Hand Exposure: No ; Tobacco Cessation Education Requested by Patient: No Hx Alcohol Use: No Hx Substance Use: No Review of Systems Review of Systems: All systems reviewed & are unremarkable except as noted in HPI & below Physical Exam Physical Exam: General: no distress, obese Head: normocephalic, atraumatic Eyes: PERRL, EOM's intact, conjunctiva non-injected, anicteric ENT: normal inspection external ears, nose, mucous membranes moist Neck: supple, trachea midline, non-tender Lungs: no respiratory distress, 93% on room air, +diminished breath sounds mid to lower left lung foster, otherwise no wheezing/rhonchi/rales CV: RRR, no murmur, no pretibial edema Abd: normal BS, soft, +mild tenderness to palpation LUQ without rebound or guarding Back: +tenderness to left flank and CVA Ext: no cyanosis, no calf tenderness Neuro: A&O x 3, no focal deficits noted, normal affect Skin: warm, dry Results & Data Vital Signs (Past 12 Hours) Vital Signs Temp Pulse Pulse Resp BP BP Pulse Ox 07/11/19 15:20 72 26 H 95 07/11/19 15:11 78 22 07/11/19 15:00 67 25 H 175/94 H 95 07/11/19 14:50 73 29 H 93 07/11/19 14:40 69 28 H 92 07/11/19 14:30 76 26 H 166/68 H 92 07/11/19 14:25 76 24 158/79 H 92 07/11/19 14:24 71 36 H 158/79 H 92 07/11/19 14:20 71 28 H 92 07/11/19 14:10 70 24 93 07/11/19 14:00 67 27 H 152/71 H 94 07/11/19 13:50 78 19 07/11/19 13:30 66 24 151/87 H 91 07/11/19 13:20 60 25 H 90 07/11/19 13:10 63 24 93 07/11/19 13:00 59 L 21 152/81 H 91 07/11/19 12:50 64 22 93 07/11/19 12:40 64 18 94 07/11/19 12:36 65 65 25 H 146/77 H 146/77 H 93 07/11/19 12:30 64 23 144/89 H 93 07/11/19 12:20 60 94 07/11/19 12:10 71 17 94 07/11/19 12:08 80 80 22 155/74 H 93 07/11/19 12:04 67 17 155/74 H 94 07/11/19 11:43 36.5 C 65 20 154/74 H 95 Laboratory Results Short CBC 07/11/19 Range/Units 12:10 WBC 5.82 (4.8-10.8) K/uL Hgb 10.6 L (14.0-18.0) g/dL Hct 32.3 L (42-52) % Plt Count 200 (130-400) K/uL BMP 07/11/19 12:10 Sodium 142 Potassium 3.4 L Chloride 109 H Carbon Dioxide 28 BUN 14 Creatinine 1.33 Glucose 117 H Calcium 7.9 L Cardiac Enzymes 07/11/19 Range/Units 12:10 Total Creatine Kinase 52 (39-308) U/L CK-MB (CK-2) 1.4 (0.5-3.6) ng/ml Troponin I < 0.015 (0-0.045) ng/ml Liver Function 07/11/19 Range/Units 12:10 Total Bilirubin 0.6 (0.2-1) mg/dl Direct Bilirubin 0.2 (0-0.2) mg/dl AST 10 L (15-37) U/L ALT 13 (12-78) U/L Alkaline Phosphatase 63 (45-117) U/L Albumin 2.9 L (3.4-5.0) gm/dl Diagnostic Findings CTA CHEST: IMPRESSION: 1. Study is negative for 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. 2. Moderately large left pleural effusion. 3. Consolidative and/or atelectatic change left base. 4. Moderate mediastinal adenopathy unchanged ECG Rate (beats per minute): 67 Rhythm: sinus rhythm Findings: + 1st degree AV block and + LBBB Code Status & VTE Plan VTE Prophylaxis Plan VTE Prophylaxis will be ordered: Yes Supervising Physician Co-Signing Physician Notes Pt was seen and examined. Agreed with Mulu ALICIA exam, assessment and plan. 79 y/o F with PMH HTN, HLD, diastolic heart failure, hypothyroidism, gout, obesity, NAHEED, GERD, BPH, RLS, depression, CKD III, monoclonal paraproteinemia presented to ER with complaint of shortness of breath. Pt said that he has been having SOB with minimal exertion. CTA chest done in the ER showed moderately large left pleural effusion. CT abd/pelvis done since pt was complaint of intermittent left upper quadrant, left flank and left back pain. CT abd/pelvis showed Large left pleural effusion that appears to be creating inferior displacement of the left diaphragm and anterior displacement of the spleen; nonobstructive bowel pattern. Discussed with family about thoracentesis for the pleural effusion. Daughter would like dr. Jeffries to perform it. Thoracic surgery consulted for the moderate large left pleural effusion. Dr. Jeffries was notified. Will hold on abx for now since pt is afebrile and no leukocytosis. Continue monitor closely. MD Robert
[2019-07-11 16:06] LABS: Lipase 114 U/L (73-393)
[2019-07-11 17:04] LABS: Appearance Urine Clear (Clear); Bilirubin Urine Negative (Negative); Blood Urine Negative (Negative); Color Urine Yellow; Glucose Urine UA Negative (Negative); Ketones Urine Negative (Negative); Leukocyte Esterase Urine Negative (Negative); Nitrite Urine Negative (Negative); Protein Urine Negative (Negative); Specific Gravity Urine 1.039 (1.000-1.030); Urobilinogen Urine Negative (Negative)
--- NOTE | 2019-07-11 17:18 | CT Scan Report ---
CT abd pelvis wo con CT DOSE: 1567.35 mGy.cm HISTORY: Flank pain left flank pain TECHNIQUE: Multiaxial CT images of the abdomen and pelvis were performed without contrast. A dose lo wering technique was utilized adhering to the principles of ALARA. COMPARISON STUDY: 05/22/2019 FINDINGS: Interval development of a left pleural effusion with partial left lower lobe atelectatic ch martin. This has been described previously. It is depressing the left hemidiaphragm with secondary disp lacement of the spleen and left kidney in an anterior fashion. Small pericardial effusion. Prior chol ecystectomy. Kidneys enhance uniformly and are negative for hydronephrosis. Vague hyperdensity within the central spleen possibly secondary to a complex cyst versus hemangioma. Nonobstructive bowel pattern. There are findings of a midline lower abdominal incision. Several small adhesions appear to be present but there are no obstructive characteristics. Bladder is midline. There is a small left lateral bladder diverticulum. Postoperative changes consist ent with bilateral hip arthroplasties. IMPRESSION: 1. Large left pleural effusion with associated left lower lobe atelectatic change. 2. This effusion appears to be creating inferior displacement of the left diaphragm and anterior disp lacement of the spleen. 3. Trace pleural fluid right lung base. 4. Partial atelectasis left lower lobe. 5. Small pericardial effusion. 6. Nonobstructive bowel pattern. 7. Postoperative changes including bilateral total hip arthroplasties. 8. Small left lateral bladder diverticulum. ACT 112: Negative or not required by law. The above report was generated using voice recognition software. It may contain grammatical, syntax or spelling errors. Electronically signed by: Amadeo Manzo M.D. 07/11/2019 5:16 PM
[2019-07-11] MEDS ORDERED: ACETAMINOPHEN 325 MG TAB PO PRN (17:22)
[2019-07-11] MEDS: HydrALAZINE TAB 50 MG TAB PO SCH (20:20)
[2019-07-11] MEDS: ATORVASTATIN 10 MG TAB PO SCH (20:21)
[2019-07-11] MEDS: CHOLECALCIFEROL 1,000 UNITS TAB PO SCH (20:22)
[2019-07-11] MEDS: TERAZOSIN HCL 5 MG CAP PO SCH (20:22)
[2019-07-11] MEDS: PANTOprazole 40 MG TAB PO SCH (20:22)
[2019-07-11] MEDS: POTASSIUM CHLORIDE 20 MEQ TABCR PO SCH (20:23)
[2019-07-11] MEDS: MAGNESIUM OXIDE 400 MG TAB PO SCH (20:23)
[2019-07-11] MEDS: carvediloL 3.125 MG TAB PO SCH (20:23)
[2019-07-12] MEDS: LEVOTHYROXINE SODIUM 112 MCG TABLET PO SCH (05:06)
[2019-07-12] MEDS ORDERED: POTASSIUM CHLORIDE 20 MEQ TABCR PO STA (05:47)
[2019-07-12] MEDS ORDERED: MAGNESIUM SULFATE / D5W 1 GM/100 ML BAG IV ONE (05:47)
[2019-07-12 07:34] LABS: Hematocrit (blood only) 31.8 % (42-52); Hemoglobin 10.5 g/dL (14.0-18.0); Mean Corpuscular Hemoglobin 31.1 pg (25-34); Mean Corpuscular Volume 94.1 fL (80-100); Platelet Count 195 K/uL (130-400); RDW Standard Deviation 51.3 fL (36.4-46.3); Red Blood Count 3.38 M/uL (4.7-6.1); White Blood Count 5.61 K/uL (4.8-10.8)
[2019-07-12 08:13] LABS: BUN Creatinine Ratio 8.3 (10-20); Calcium 8.5 mg/dl (8.5-10.1); Creatinine Clr Calc Pharmacy 50.8 ml/min; Est GFR (African American) 54.1; Est GFR (Non-African American) 46.6; Magnesium 2.3 mg/dl (1.8-2.4); Potassium 4.1 mmol/L (3.5-5.1)
--- NOTE | 2019-07-12 08:41 | Surgery Consultation ---
Date of Consultation July 12, 2019 Assessment & Plan (1) Pleural effusion: Mr. Dolan has multiple medical issues which could contribute to his left pleural effusion. First and foremost is diastolic dysfunction, especially in conjunction with his renal insufficiency, can lead to a transudate of pleural effusion. In addition, his history of this monoclonal paraproteinemia could also play a role. I would perform a thoracentesis this morning and we will of course send all the appropriate studies. We had a long discussion about this and is agreeable. Present on Admission?: Yes History of Present Illness Attending Physician: Bere Bernard, DO History of Present Illness This very nice 79-year-old male with multiple medical issues including obesity, gout, obstructive sleep apnea, hypothyroidism, diastolic dysfunction, chronic renal insufficiency, GERD, hypertension, hyperlipidemia, and interestingly enough, a monoclonal paraproteinemia. Patient noted for the last week he has been short of breath. He is a heavy man being almost 80 years of age he has not been very active but states he can climb a flight of stairs without difficulty and walks at home. He also mows his grass. Patient states over the last week he has become more short of breath with exertion. He denies fevers. He said no productive cough. He denies hemoptysis. He denies any weight loss. The patient states this morning he slept well with his CPAP which he has been using for years. He he has no unusual pains. He has had no real edema of his lower extremities except for some chronic left lower edema he has had in the past. One concern is he is had some mild left flank pain with some intermittent dysuria for the last week. I was asked to comment on this large left pleural effusion which was noted on x-ray in CT scan which were performed in the ER yesterday. He had no evidence of pulmonary emboli. Allergies Allergy/AdvReac Type Severity Reaction Status Date / Time No Known Allergies Allergy Verified 07/11/19 13:10 Home Medications Home Medications Medication Instructions Recorded Confirmed Type allopurinol 300 mg PO QAM 04/30/18 07/11/19 History atorvastatin 5 mg PO HS 04/30/18 07/11/19 History cholecalciferol (vitamin D3) 2,000 unit PO QPM 04/30/18 07/11/19 History [Vitamin D3] citalopram [Celexa] 20 mg PO QAM 04/30/18 07/11/19 History hydralazine 50 mg PO TID 04/30/18 07/11/19 History magnesium oxide 400 mg PO QPM 04/30/18 07/11/19 History omeprazole 40 mg PO HS 04/30/18 07/11/19 History terazosin 5 mg PO HS 04/30/18 07/11/19 History carvedilol 3.125 mg PO BID 09/18/18 07/11/19 History lisinopril 20 mg PO QAM 09/18/18 07/11/19 History potassium chloride 20 meq PO QPM 09/18/18 07/11/19 History levothyroxine 112 mcg PO DAILY 05/22/19 07/11/19 History amlodipine 10 mg PO DAILY 07/11/19 07/11/19 History Patient History Medical History (Updated 07/11/19 @ 16:44 by Mulu Garcia PA-C) Acute respiratory failure with hypoxia (Acute) 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) Carpal tunnel syndrome (Chronic) CKD (chronic kidney disease), stage III (Chronic) Diastolic heart failure (Chronic) GERD (gastroesophageal reflux disease) (Chronic) Gout (Chronic) History of cardiac arrhythmia (Resolved) History of paroxysmal supraventricular tachycardia (Resolved) Hyperlipidemia Hypertension (Chronic) Insomnia (Chronic) LBBB (left bundle branch block) (Chronic) Monoclonal paraproteinemia Morbid (severe) obesity due to excess calories 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 SVT in setting of hypokalemia noted during that admission. Admitted again to [facility] 07/28-07/30/18 for pneumonia with hypoxia. No arrhythmia noted. Lungs CTA B/L on exam at [facility] 09/25. Prolonged QT interval (Chronic) Restless leg syndrome (Chronic) Sepsis Surgical History H/O cataract removal with insertion of prosthetic lens H/O knee surgery H/O sinus surgery History of appendectomy History of bilateral knee arthroplasty History of cataract surgery RT/LEFT History of colonoscopy History of esophagogastroduodenoscopy (EGD) History of hip surgery History of tooth extraction History of total right hip arthroplasty Hx of cholecystectomy Status post total hip replacement, left Family History Father Heart disease Mother Diabetes Hypertension Brother Family hx of colon cancer Social History Preferred Language: Cambodian Communication Ability: Effective 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 Dolan denies weight loss except for that for which he noted after surgery 2 months ago. He was admitted 2 months ago for rupture appendix which was treated surgically without difficulty. He did have a peritonitis had a bowel resection but is done quite well. This was performed by Dr. Amadeo Kerns. He denies pharyngeal symptoms. He has had no fevers no chills. He denies any GI symptoms such as nausea vomiting or diarrhea. He denies any joint swelling. He does have some dysuria for the past week. He denies any visual auditory changes. He has had chronic left lower extremity mild edema. The rest of his review of systems was unremarkable. Physical Exam Physical Exam: This is a heavy elderly male who is awake alert oriented and conversive. Extraocular meds are intact. Sclera anicteric. He has no nasolabial flattening. He is edentulous with an upper denture plate but I detect no oral mucosal lesions. His neck is thick but supple he has no carotid bruits. I take no supraclavicular cervical lymphadenopathy. He has no tracheal deviation no neck vein distention. He has decreased breath sounds in his left lung field which are rather marked relative to his right. He has a regular rate and rhythm his heart. His abdomen is obese but soft well-healed lower abdominal incision. He has good femoral pulses. I have difficulty palpating peripheral pulses in his pedal areas but he has good perfusion to his feet which are warm. He has no joint effusions. He has trace edema of the left lower pretibial area. Neurologically is completely intact. He is awake alert oriented with no focal deficits. Results & Data Vital Signs (Past 12 Hours) Vital Signs Temp Pulse Pulse Resp BP BP Pulse Ox 07/12/19 07:49 36.7 C 58 L 17 169/84 H 90 07/12/19 04:53 58 L 16 97 07/12/19 04:09 36.6 C 67 18 141/75 H 94 07/12/19 00:54 65 07/12/19 00:41 63 14 96 07/12/19 00:04 37.2 C 56 L 18 160/73 H 92 07/11/19 21:00 80 18 94 PG Care Time/CCT Total # of Minutes Spent Total Time Spent with Patient: Total time spent is greater than 50% in coordination of care (as documented) at patient's floor/unit and/or counseling patient:
--- NOTE | 2019-07-12 08:44 | XRay Report ---
XR chest 1V portable HISTORY: Status post thoracentesis COMPARISON: Chest CTA 07/11/2019. FINDINGS: A small left pleural effusion has significantly decreased in size status post thoracentesis . No pneumothorax. Left basilar densities are noted. The right lung is clear. The heart is mildly enl arged. There are low lung volumes. No evidence for pulmonary edema. IMPRESSION: Significant decrease in size in the small left pleural effusion status post thoracentesis. No pneumot horax. ACT 112: Negative or not required by law. Electronically signed by: Ang Hurley M.D. 07/12/2019 8:43 AM
[2019-07-12] MEDS: AMLODIPINE BESYLATE 5 MG TAB PO SCH (08:45)
[2019-07-12] MEDS: CITALOPRAM 20 MG TAB PO SCH (08:46)
[2019-07-12] MEDS: carvediloL 3.125 MG TAB PO SCH ×2 (08:46→20:17)
[2019-07-12] MEDS: lisinopriL 20 MG TAB PO SCH (08:46)
[2019-07-12] MEDS: HydrALAZINE TAB 50 MG TAB PO SCH ×3 (08:46→20:17)
[2019-07-12] MEDS: allopurinoL 300 MG TAB PO SCH (08:46)
--- NOTE | 2019-07-12 08:48 | Procedure Note ---
Procedure Note Date of Service July 12, 2019 Note Procedure: With the patient in the upright position his left chest was prepped and draped in usual sterile fashion after an ultrasound of been used to antonio a good window into the left pleural cavity. 25-gauge needle and Xylocaine were used Skin subcutaneous tissues a large bore needle use anesthetize underlying muscle and pleura. Guidewire was inserted the needle needle removed after we aspirated serous fluid. Triple-lumen catheter slid over the guidewire guidewire removed. 2000 cc of a serous rust colored fluid was drained. He had some mild reexpansion coughing. His chest x-ray showed full expansion of his lung after the procedure. He tolerated very well. After the catheter was removed and antimicrobial dressing was placed. Appropriate studies were sent. Coding
[2019-07-12 09:11] LABS: Glucose Pleural Fluid 96 mg/dl
[2019-07-12 09:19] LABS: Amylase Pleural Fluid 28 U/L; LDH Pleural Fluid 153 U/L; Total Protein Pleural Fluid 3.7 g/dl
[2019-07-12 10:02] LABS: Appearance Pleural Fluid CLOUDY; Basophils, Fluid 0 %; Color Pleural Fluid AMBER; Eosinophils, Fluid 0 %; Lymphocytes, Fluid 61 %; Mono,Macrophage,Mesothelial 27 %; Neutrophils, Fluid 12 %; RBC Pleural Fluid (A) 11000 /uL; Source Pleural Fluid LEFT LUNG; WBC Pleural Fluid (A) 1532 /uL
--- NOTE | 2019-07-12 19:13 | Hospitalist Progress Note ---
Date of Service July 12, 2019 Assessment & Plan (1) Shortness of breath: resolved after thoracentesis yesterday. Doing well and not requiring supplemental oxygen. (2) Pleural effusion: s/p 2L off yesterday. Pleural fluid studies are pending but no apparent infection. Pt is asymptomatic. Per thoracics. (3) Left flank pain: resolved after treatment of effusion. (4) Hypertension: -Continue amlodipine, hydralazine, carvedilol, lisinopril per home regimen (5) CKD (chronic kidney disease), stage III: Cr: 1.3. Baseline 1.3-1.4 -Monitor renal functions -Avoid nephrotoxic agents when possible, although notably contrast was given yesterday. (6) Anemia, unspecified: likely related to recent prolonged hospitalization and post op state. Expect to recover in the next few weeks. (7) Hypothyroidism: -Continue levothyroxine per home regimen (8) Obstructive sleep apnea on CPAP: -CPAP at bedtime (9) DVT prophylaxis: SCD Full Dispo-to home in am DO [facility] Hospitalist Subjective Pt doing well Denies pain improvement in SOB and L flank pain has resolved. No supplemental oxygen needed. Review of Systems Review of Systems: All systems reviewed & are unremarkable except as noted in HPI & below Physical Exam Physical Exam: General: no distress, WNWD Head: normocephalic, atraumatic Eyes: conjunctivae non-injected, anicteric ENT: mucous membranes moist Neck: supple, trachea midline, non-tender Lungs: clear to auscultation bilaterally, no wheezing or rhonchi CV: RRR, no murmur Abd: normal BS, soft, +mild tenderness to palpation LUQ without rebound or guarding Back: +tenderness to left flank and CVA Ext: no cyanosis, no calf tenderness Neuro: A&O x 3, no focal deficits noted, normal affect Skin: warm, dry Results & Data Vital Signs (Past 12 Hours) Vital Signs Temp Pulse Pulse Resp BP BP Pulse Ox 07/12/19 16:00 59 L 07/12/19 15:56 36.5 C 65 18 143/67 H 95 07/12/19 14:15 67 18 130/66 95 07/12/19 12:15 94 07/12/19 11:39 36.8 C 64 18 145/72 H 91 07/12/19 08:47 65 07/12/19 08:19 74 07/12/19 07:49 36.7 C 58 L 17 169/84 H 90 Laboratory Results Short CBC 07/12/19 Range/Units 07:14 WBC 5.61 (4.8-10.8) K/uL Hgb 10.5 L (14.0-18.0) g/dL Hct 31.8 L (42-52) % Plt Count 195 (130-400) K/uL BMP 07/12/19 07:14 Sodium 144 Potassium 4.1 D Chloride 109 H Carbon Dioxide 30 BUN 12 Creatinine 1.42 H Glucose 103 H Calcium 8.5 Medications Administered Current Inpatient Medications Acetaminophen (Tylenol) 650 mg PO Q4H PRN PRN Reason: Pain or Fever Stop: 08/10/19 17:21 All[facility] ([facility]oprim) [facility] Stop: 08/11/19 08:59 Last Admin: 07/12/19 08:46 Dose: 300 mg Documented by: Amlodipine Besylate (Norvasc) 10 mg PO DAILY COUNTS INCLUDE 234 BEDS AT THE [facility] Stop: 08/11/19 08:59 Last Admin: 07/12/19 08:45 Dose: 10 mg Documented by: Atorvastatin Calcium (Lipitor) 5 mg PO HS COUNTS INCLUDE 234 BEDS AT THE [facility] Stop: 08/10/19 20:59 Last Admin: 07/11/19 20:21 Dose: 5 mg Documented by: Carvedilol (Coreg) 3.125 mg PO BID [facility] Stop: 08/10/19 20:59 Last Admin: 07/12/19 08:46 Dose: 3.125 mg Documented by: Citalopram Hydrobromide (Celexa) 20 mg PO QAM COUNTS INCLUDE 234 BEDS AT THE [facility] Stop: 08/11/19 08:59 Last Admin: 07/12/19 08:46 Dose: 20 mg Documented by: Hydralazine HCl (Apresoline) 50 mg PO TID COUNTS INCLUDE 234 BEDS AT THE [facility] Stop: 08/10/19 20:59 Last Admin: 07/12/19 14:16 Dose: 50 mg Documented by: Levothyroxine Sodium (Synthroid) 112 mcg PO DAILYBB [facility] Stop: 08/11/19 06:29 Last Admin: 07/12/19 05:06 Dose: 112 mcg Documented by: Lisinopril (Zestril) 20 mg PO QAM COUNTS INCLUDE 234 BEDS AT THE [facility] Stop: 08/11/19 08:59 Last Admin: 07/12/19 08:46 Dose: 20 mg Documented by: Magnesium Oxide (Mag-Ox) 400 mg PO QPM COUNTS INCLUDE 234 BEDS AT THE [facility] Stop: 08/10/19 20:59 Last Admin: 07/11/19 20:23 Dose: 400 mg Documented by: Pantoprazole Sodium (Protonix) 40 mg PO [facility] Stop: 08/10/19 20:59 Last Admin: 07/11/19 20:22 Dose: 40 mg Documented by: Potassium Chloride (Klor-Con M20) 20 meq PO QPM COUNTS INCLUDE 234 BEDS AT THE [facility] Stop: 08/10/19 20:59 Last Admin: 07/11/19 20:23 Dose: 20 meq Documented by: Terazosin HCl (Hytrin) 5 mg PO [facility] Stop: 08/10/19 20:59 Last Admin: 07/11/19 20:22 Dose: 5 mg Documented by: Vitamin D (Vitamin D3) 2,000 units PO QPM COUNTS INCLUDE 234 BEDS AT THE [facility] Stop: 08/10/19 20:59 Last Admin: 07/11/19 20:22 Dose: 2,000 units Documented by:
[2019-07-12] MEDS: ATORVASTATIN 10 MG TAB PO SCH (20:18)
[2019-07-12] MEDS: POTASSIUM CHLORIDE 20 MEQ TABCR PO SCH (20:18)
[2019-07-12] MEDS: CHOLECALCIFEROL 1,000 UNITS TAB PO SCH (20:19)
[2019-07-12] MEDS: PANTOprazole 40 MG TAB PO SCH (20:19)
[2019-07-12] MEDS: MAGNESIUM OXIDE 400 MG TAB PO SCH (20:19)
[2019-07-12] MEDS: TERAZOSIN HCL 5 MG CAP PO SCH (20:19)
[2019-07-13] MEDS: LEVOTHYROXINE SODIUM 112 MCG TABLET PO SCH (05:45)
--- NOTE | 2019-07-13 07:32 | XRay Report ---
XR chest 1V portable HISTORY: Left pleural effusion COMPARISON: Chest 07/12/2019. FINDINGS: The left pleural effusion and left basilar densities have resolved in the interval. The hea rt remains mildly enlarged. There is mild central pulmonary vascular congestion without overt edema. No pneumothorax. Right basilar densities persist. IMPRESSION: 1. Interval resolution of the left basilar densities and left pleural effusion. 2. No pneumothorax. 3. Mild congestive change and right basilar densities persist. ACT 112: Negative or not required by law. Electronically signed by: nAg Hurley M.D. 07/13/2019 7:30 AM
[2019-07-13] MEDS: carvediloL 3.125 MG TAB PO SCH (08:16)
[2019-07-13] MEDS: HydrALAZINE TAB 50 MG TAB PO SCH ×2 (08:16→13:40)
[2019-07-13] MEDS: CITALOPRAM 20 MG TAB PO SCH (08:16)
[2019-07-13] MEDS: lisinopriL 20 MG TAB PO SCH (08:17)
[2019-07-13] MEDS: allopurinoL 300 MG TAB PO SCH (08:17)
[2019-07-13] MEDS: AMLODIPINE BESYLATE 5 MG TAB PO SCH (08:17)
[2019-07-13 11:47] LABS: BUN Creatinine Ratio 10.3 (10-20); Calcium 7.8 mg/dl (8.5-10.1); Creatinine Clr Calc Pharmacy 49.4 ml/min; Est GFR (African American) 52.7; Est GFR (Non-African American) 45.5; Potassium 3.8 mmol/L (3.5-5.1)
--- NOTE | 2019-07-13 13:10 | Discharge Summary ---
Date of Service July 13, 2019 Admission HPI Per Admitting Provider Pt is 79 y/o F with PMH HTN, HLD, diastolic heart failure, hypothyroidism, gout, obesity, NAHEED, GERD, BPH, RLS, depression, CKD III, monoclonal paraproteinemia presented to ER with complaint of shortness of breath x1 week. Patient states for past week has been short of breath with exertion and reports some slight shortness of breath at rest. Patient also complains of intermittent left upper quadrant, left flank and left back pain for the last couple of days which she describes as a "agitated" sensation without any aggravating or alleviating factors. Denies chest pain, cough, fever, chills. Patient denies any injuries. He reports intermittent dysuria over the past week. Denies hematuria, urinary frequency, urinary retention. Patient was seen at PCPs office yesterday for symptoms and had elevated high-sensitivity troponin T at 46 (0-22 range), and elevated d-dimer at 7.6 (<0.5 range) and was referred to ER today. He was started on Levaquin for suspected pneumonia. Patient reports has taken 2 doses. Patient with recent hospital admission in 05/2019 for ruptured appendicitis, purulent peritonitis, bowel resection. Patient states his been doing well since that time however he did have some weight loss during that admission reports is been trying to maintain that weight loss. Denies night sweats. Denies fever/chills, N/V/D/C, CUELLAR, dizziness, syncope, vision changes, neck pain, palpitations, hemoptysis, sore throat, choking, otalgia, rhinorrhea, other abdominal pain, paresthesias, weakness, extremity weakness, extremity edema, rashes. Admission Exam Per Admitting Provider General: no distress, obese Head: normocephalic, atraumatic Eyes: PERRL, EOM's intact, conjunctiva non-injected, anicteric ENT: normal inspection external ears, nose, mucous membranes moist Neck: supple, trachea midline, non-tender Lungs: no respiratory distress, 93% on room air, +diminished breath sounds mid to lower left lung foster, otherwise no wheezing/rhonchi/rales CV: RRR, no murmur, no pretibial edema Abd: normal BS, soft, +mild tenderness to palpation LUQ without rebound or guarding Back: +tenderness to left flank and CVA Ext: no cyanosis, no calf tenderness Neuro: A&O x 3, no focal deficits noted, normal affect Skin: warm, dry Principal Diagnosis Dyspnea-resolved s/p thoracentesis pleural effusion CKD III Anemia Discharge Data Allergies Allergy/AdvReac Type Severity Reaction Status Date / Time No Known Allergies Allergy Verified 07/11/19 13:10 Consultations 07/11/19 14:37 ED Decision to Admit Stat 07/11/19 17:22 Consult Case Management - Discharge Planning Routine 07/12/19 07:55 Consult Thoracic Surgery Routine Ordered Studies 07/11/19 12:57 CT angio chest PE protocol Stat 07/11/19 16:00 CT abd pelvis wo con Urgent Hospital Course (1) Shortness of breath: (2) Pleural effusion: (3) CKD (chronic kidney disease), stage III: (4) Anemia, unspecified: 79 yo F presented with one week of shortness of breath and left flank pain. Workup revealed a pleural effusion on the left. He was admitted to the hospitalist service, and Thoracic surgery was consulted. A thoracentesis the following day with 2L of serous rust colored fluid removed. Testing of the fluid revealed that it was exudative with cytology negative for malignancy, and no evidence of infection. He remained in the hospital for observation another night and remained stable and free of symptoms. He did not require supplemental oxygen and remained hemodynamically stable throughout his stay. At time of discharge he was hemodynamically stable and afebrile and tolerating PO. He was mentating and ambulating at baseline. Repeat CXR post-procedure was within normal limits. He was considered stable for discharge from thoracics standpoint and was discharged in stable condition with close PCP follow-up recommended and follow-up with thoracic surgery in the office in one month or so with a chest xray. Also of note, his creatinine was slightly elevated just prior to discharge. This may have been a result of contrast administered on admission. Lisinopril was held at discharge to be restarted by the PCP after review of a repeat BMP in one week. The patient verbalized understanding with intent to comply. Total Time Total Time Spent Total Time Spent (In Minutes): 60 Total Time Includes: Examination of the Patient, Discharge Planning, Medication Reconciliation and Communication With Other Providers Discharge Plan Discharge Items Patient Disposition: Home - Self-Care Reason For Visit: SOB, PLEURAL EFFUSION Discharge Diagnosis: Dyspnea-resolved s/p thoracentesis pleural effusion Activity: Resume your previous activity Non-emergency contact: Primary Care Provider Call non-emergency contact if: you have any medication questions, your symptoms worsen, your pain is not controlled, your pain is worsening, your pain is unusual for you and you have a fever Follow-up/Referrals: Musa Stout MD [Primary Care Provider] - Diet: Heart Healthy Addtl Attending Provider Instructions: Please take all medications as instructed on discharge list below. You have the following appointment: 07/19/2019 11:00 AM Musa Stout MD [facility] Please stop taking lisinopril until this visit with Dr. Stout. You will likely need some repeat nonfasting bloodwork, which he can order if needed. He will be able to let you know when to restart the lisinopril again, likely in one week. It was a pleasure taking care of you! Please call if you have any questions or problems. You can reach a [facility] hospitalist on duty at [facility] 24 hours a day by calling [phone]. Take care of yourself. Bere Bernard, DO [facility] Hospitalist Pending Studies at Discharge: Yes Studies:: pleural fluid studies Stand-Alone Forms: My [facility] Medications and DC Order Prescriptions: Continued terazosin 5 mg Capsule 5 mg PO HS RF: 0 atorvastatin 10 mg Tablet 5 mg PO HS RF: 0 omeprazole 40 mg Capsule,Delayed Release(Dr/Ec) 40 mg PO HS RF: 0 citalopram [Celexa] 20 mg Tablet 20 mg PO QAM RF: 0 allopurinol 300 mg Tablet 300 mg PO QAM RF: 0 hydralazine 50 mg Tablet 50 mg PO TID RF: 0 cholecalciferol (vitamin D3) [Vitamin D3] 2,000 unit Capsule 2,000 unit PO QPM RF: 0 magnesium oxide 400 mg magnesium Tablet 400 mg PO QPM RF: 0 amlodipine 10 mg Tablet 10 mg PO DAILY RF: 0 carvedilol 3.125 mg Tablet 3.125 mg PO BID RF: 0 levothyroxine 112 mcg Tablet 112 mcg PO DAILY RF: 0 Discontinued potassium chloride 20 mEq tablet extended release 20 meq PO QPM RF: 0 lisinopril 20 mg Tablet 20 mg PO QAM RF: 0 Discharge Orders: Discharge Order (Routine); Ordered 07/13/19 Ordered By: Bere Bernard Admission Data Admit Date/Time: 07/11/19 15:47 Attending Provider: Bere Bernard Admit Provider: June Jones Primary Care Provider: Musa Stout Other Providers: June Jnoes ; Will Jeffries Other Interventions: Discharge Summary Assessment (RN) Last Done: 07/13/19 14:07 DC Date/Time DO NOT enter until pt leaves facility: 07/13/19 14:48
--- NOTE | 2019-07-13 13:43 | Surgery Progress Note ---
Date of Service July 13, 2019 Assessment & Plan (1) Pleural effusion: Patient's chest x-ray looks very good today. This pleural effusion is interesting. It is an exudate with an LDH of 153 and a serum LDH of 183. However, cytology is negative for malignancy. It is not infected. He is stable from discharge from my standpoint I will see him back in a month or so with a chest x-ray. Present on Admission?: Yes Subjective "I am breathing much better. How did my x-ray look? " Physical Exam Physical Exam: He has better aeration in the left base. Thoracentesis site was clean. Results & Data Vital Signs (Past 12 Hours) Vital Signs Temp Pulse Pulse Resp BP Pulse Ox 07/13/19 13:39 131/70 07/13/19 11:51 36.8 C 68 20 113/69 95 07/13/19 07:55 37 C 68 20 140/83 93 07/13/19 07:29 76 07/13/19 05:10 58 L 14 97 07/13/19 03:56 36.8 C 59 L 20 155/65 H 95 PG Care Time/CCT Total # of Minutes Spent Total Time Spent with Patient: Total time spent is greater than 50% in coordination of care (as documented) at patient's floor/unit and/or counseling patient:
== END 2019-07-13 14:48 | disposition home or self-care (01) ==
LOC: ED 11:33 → 2W 11:33 → SUATTDRO 15:47 → 2W 16:53

== ENCOUNTER 2020-05-16 11:06 | Inpatient (IN) ==
[2020-05-16] MEDS ORDERED: SODIUM CHLORIDE 0.9% 500 ML IV ONE (11:45)
--- NOTE | 2020-05-16 12:01 | Electrocardiogram Report ---
Test Reason : Blood Pressure : / mmHG Vent. Rate : 086 BPM Atrial Rate : 086 BPM P-R Int : 246 ms QRS Dur : 154 ms QT Int : 436 ms P-R-T Axes : 054 -31 111 degrees QTc Int : 521 ms Sinus rhythm Premature atrial complexes Premature ventricular complexes Left axis deviation Left bundle branch block Abnormal ECG When compared with ECG of 11-JUL-2019 11:56, Premature atrial complexes and premature ventricular complexes are now present Confirmed by Garcia Burgess ([id number]) on 05/16/2020 12:01:10 PM Referred By: REFERRED SELF Confirmed By:Garcia Burgess
[2020-05-16 12:09] LABS: Troponin I 0.024 ng/ml (0-0.045)
[2020-05-16] MEDS ORDERED: OPTIRAY 320 125ml IV ONE (12:09)
[2020-05-16 12:11] LABS: Magnesium 2.1 mg/dl (1.8-2.4); Phosphorus 2.8 mg/dl (2.5-4.9)
--- NOTE | 2020-05-16 12:29 | CT Scan Report ---
CT ANGIOGRAPHY OF THE CHEST, PULMONARY EMBOLUS PROTOCOL CLINICAL HISTORY: Shortness of breath. Evaluate for 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. COMPARISON STUDY: Chest CT July 11, 2019. Chest radiograph September 24, 2019. TECHNIQUE: Following IV administration of 120 mL of Optiray-320, helical axial images of the chest we re obtained utilizing the 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 protocol. Maximal intensity projections and sagittal and coronal reformats were viewed on an independent 3D workstation. IV contrast was administered withou t complication. Automated exposure control was utilized for the study. A dose lowering technique wa s utilized adhering to the principles of ALARA. CT DOSE: 841.24 mGy.cm FINDINGS: Extensive right-sided pulmonary emboli are noted. Emboli are noted within the distal right pulmonary artery and extends into the lobar and segmental branches of the right lung. A few small le ft lower lobe subsegmental pulmonary emboli are present. Moderate cardiomegaly is noted. There is mil d straightening of the interventricular septum. A small hiatal hernia is present. No pericardial effu ulises. No thoracic aortic dissection is noted. Left-sided gynecomastia is incidentally noted. There is no pulmonary infarct. Lungs are suboptimally assessed given respiratory motion. Visualized portions of the upper abdomen demonstrate a hypodense splenic lesion which was present on prior exams. This is probably benign. Gallbladder is surgically absent. Trace bilateral pleural effusions are present. IMPRESSION: 1. Extensive right-sided pulmonary emboli with a few small subsegmental left lower lobe pulmonary emb krystle. Straightening of the interventricular septum raises the possibility of right heart strain. Findi ngs discussed with Dr. Mahmood at time of dictation. No pulmonary infarct. 2. Moderate cardiomegaly. ACT 112: Negative or not required by law. Electronically signed by: Kyler Lim M.D. 05/16/2020 12:28 PM
--- NOTE | 2020-05-16 12:37 | Emergency Department Note ---
Impression & Plan Pulmonary embolism on right, Multiple myeloma, Dyspnea on minimal exertion, LBBB (left bundle branch block) ED Provider Note NAME: LLOYD CURTIS AGE: 80 SEX: M ARRIVES VIA: Walk-In INFORMANT: Patient, ED PROVIDER(S): Niraj Mahmood MD CHIEF COMPLAINT: Shortness of breath PLAN: Disposition: Admit MEDICAL DECISION MAKING: The patient is a pleasant 80-year-old gentleman with a past medical history of multiple myeloma, NAHEED on home CPAP who presents emerged department evaluation of increasing shortness of breath which was of concern when seen at his oncology appointment today referred to the emergency department. He reports having significant shortness of breath with minimal exertion. His oxygen duration was in the low 90s on room air. Denies any cough, fevers, chills, abdominal pain, nausea, vomiting, diarrhea, urinary symptoms. On arrival the patient is mildly dyspneic, afebrile with O2 saturation 92% on room air and vital signs otherwise stable. He has diminished BS at bases and is otherwise clear. 1+ BLE is improved per patient. Patient did have a full set of lab work this morning at 9 AM which was reviewed and demonstrates WBC within normal limits. Platelets slightly low at 129K. H/H 11.9/35.3 similar to prior values. Chemistry without acidosis. Creatinine is slightly improved from prior baseline of CKD and was 1.35 today. LFTs are unremarkable. We did add a troponin and BNP to this morning's blood work and troponin was 0.024 and BNP was within normal limits. Delta 2 hour Troponin essential unchanged and wnl. CT of the chest does demonstrate extensive right-sided pulmonary embolism with flattening of the ventricular symptom that raises the possibility of right heart strain, however this also could be related to the patient's sleep apnea as well. Findings and plan for admission reviewed with patient and daughter at bedside. They are agreeable. Case was discussed with Sanjay Angulo PAC, with Sanjay Medina hospitalist who will evaluate the patient for admission. They will evaluate patient and determine approach to anticoagulation. Triage Nursing notes reviewed and agree them. Prior medical records reviewed Vital Signs: reviewed and remarkable for no significant abnormalities Differential diagnosis: Reactive airway disease, pneumonia, pneumothorax, COPD, CHF, infections, cardiac ischemia, pulmonary embolism, musculoskeletal, gastrointestinal, as well as other pathologies. ER treatment provided: See below. Diagnostics interpreted by me: ECG: Sinus rhythm, 86 bpm, PACs, PVCs, LBBB, no sgarbossa criteria. Similar to 07/11/2019. Cardiac Monitoring: An order for continuous cardiac monitoring was placed and demonstrated Sinus rhythm, 86 bpm, PACs, PVCs. Laboratory studies: See below Imaging studies: CT ANGIOGRAPHY OF THE CHEST, PULMONARY EMBOLUS PROTOCOL CLINICAL HISTORY: Shortness of breath. Evaluate for 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. COMPARISON STUDY: Chest CT July 11, 2019. Chest radiograph September 24, 2019. TECHNIQUE: Following IV administration of 120 mL of Optiray-320, helical axial images of the chest were obtained utilizing the 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 protocol. Maximal intensity projections and sagittal and coronal reformats were viewed on an independent 3D workstation. IV contrast was administered without complication. Automated exposure control was utilized for the study. A dose lowering technique was utilized adhering to the principles of ALARA. CT DOSE: 841.24 mGy.cm FINDINGS: Extensive right-sided pulmonary emboli are noted. Emboli are noted within the distal right pulmonary artery and extends into the lobar and segmental branches of the right lung. A few small left lower lobe subsegmental pulmonary emboli are present. Moderate cardiomegaly is noted. There is mild straightening of the interventricular septum. A small hiatal hernia is present. No pericardial effusion. No thoracic aortic dissection is noted. Left-sided gynecomastia is incidentally noted. There is no pulmonary infarct. Lungs are s uboptimally assessed given respiratory motion. Visualized portions of the upper abdomen demonstrate a hypodense splenic lesion which was present on prior exams. This is probably benign. Gallbladder is surgically absent. Trace bilateral pleural effusions are present. IMPRESSION: 1. Extensive right-sided pulmonary emboli with a few small subsegmental left lower lobe pulmonary emboli. Straightening of the interventricular septum raises the possibility of right heart strain. Findings discussed with Dr. Mahmood at time of dictation. No pulmonary infarct. 2. Moderate cardiomegaly. Consultation(s): Case was discussed with Tracey Tamayo [facility] PAC, with Dr. Jones, [facility] hospitalist who will evaluate the patient for admission. HPI: The patient is a pleasant 80-year-old gentleman with a past medical history of multiple myeloma, NAHEED on home CPAP who presents emerged department evaluation of increasing shortness of breath which was of concern when seen at his oncology appointment today referred to the emergency department. He reports having significant shortness of breath with minimal exertion. His oxygen duration was in the low 90s on room air. Denies any cough, fevers, chills, abdominal pain, nausea, vomiting, diarrhea, urinary symptoms. ROS: See above HPI for pertinent positives & negatives. A total of 10 systems reviewed and were otherwise negative. PAST MEDICAL HISTORY:See Below PAST SURGICAL HISTORY:See Below FAMILY HISTORY:See Below SOCIAL HISTORY:See Below HOME MEDICATIONS:See Below ALLERGIES:See Below VITALS:See Below PHYSICAL EXAMINATION: GENERAL: Awake, alert, fatigued and mildly dyspneic-appearing, in no distress HENT: Normocephalic, atraumatic. Oropharynx with dry mucous membranes and otherwise unremarkable. EYES: Normal conjunctiva. Sclera non-icteric. NECK: Supple. No nuchal rigidity. FROM. No JVD. RESPIRATORY: Diminished breath sounds at the bases and otherwise clear to auscultation. CARDIAC: Regular rate, normal rhythm. Extremities warm and well perfused. Pulses equal. ABDOMEN: Soft, non-distended. No tenderness to palpation. No rebound or guarding. No masses. RECTAL: Deferred. MUSCULOSKELETAL: Chest examination reveals no tenderness. The back is symmetrical on inspection without obvious abnormality. There is no CVA tenderness to palpation. No joint edema. LOWER EXTREMITIES: Calves are equal size bilaterally and non-tender. 1+ bilateral lower extremity edema. No discoloration. NEURO: Normal sensorium. No sensory or motor deficits noted. SKIN: No rash or jaundice noted. ED COURSE: Critical Care: I have personally spent greater than 45 minutes of critical care time in the direct management of this patient. This includes bedside care, interpretation of diagnostic studies, and testing, discussion with consultants, patient, and family members, and other required patient management activities. This 45 minutes is in excess of all separately billable procedures. Niraj Mahmood MD Past Med/Surg History Medical History (Updated 05/16/20 @ 22:02 by Niraj Mahmood MD) Acute respiratory failure with hypoxia BPH without obstruction/lower urinary tract symptoms Carpal tunnel syndrome CKD (chronic kidney disease), stage III Diastolic heart failure GERD (gastroesophageal reflux disease) Gout History of cardiac arrhythmia History of paroxysmal supraventricular tachycardia Hyperlipidemia Hypertension Insomnia LBBB (left bundle branch block) Monoclonal paraproteinemia Morbid (severe) obesity due to excess calories 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 SVT in setting of hypokalemia noted during that admission. Admitted again to [facility] 07/28-07/30/18 for pneumonia with hypoxia. No arrhythmia noted. Lungs CTA B/L on exam at PAT 09/25. Prolonged QT interval Restless leg syndrome Sepsis Surgical History H/O cataract removal with insertion of prosthetic lens H/O knee surgery H/O sinus surgery History of appendectomy History of bilateral knee arthroplasty History of cataract surgery RT/LEFT History of colonoscopy History of esophagogastroduodenoscopy (EGD) History of hip surgery History of tooth extraction History of total right hip arthroplasty Hx of cholecystectomy Status post total hip replacement, left Family History Father Heart disease Mother Diabetes Hypertension Brother Family hx of colon cancer Social History Smoking Status: Never smoker Second Hand Exposure: No; Do You Dip or Chew Tobacco: No; Tobacco Cessation Education Requested by Patient: No Hx Alcohol Use: No Hx Substance Use: No Preferred Language: Mongolian Communication Ability: Effective Tile Edger Required: No Beliefs That Will Affect Care: None marital status: Current Living Situation: Spouse How many Children do You have: 1 Other Information That Helps Us Care for You: No Feels Safe at Home: Yes Safety Concerns: Feels Safe At This Time Assistive Devices: Cane Allergies Allergies Allergy/AdvReac Type Severity Reaction Status Date / Time No Known Allergies Allergy Verified 05/16/20 13:13 Home Meds Home Medications Medication Instructions Recorded Confirmed allopurinol 300 mg PO QAM 04/30/18 05/16/20 atorvastatin 5 mg PO HS 04/30/18 05/16/20 cholecalciferol (vitamin D3) 2,000 unit PO QPM 04/30/18 05/16/20 [Vitamin D3] citalopram [Celexa] 20 mg PO QAM 04/30/18 05/16/20 hydralazine 50 mg PO TID 04/30/18 05/16/20 magnesium oxide 400 mg PO QPM 04/30/18 05/16/20 omeprazole 40 mg PO HS 04/30/18 05/16/20 terazosin 5 mg PO HS 04/30/18 05/16/20 carvedilol 3.125 mg PO BID 09/18/18 05/16/20 levothyroxine 112 mcg PO QAM 05/22/19 05/16/20 furosemide 20 mg tablet 20 mg PO UD PRN tab 08/16/19 05/16/20 amlodipine 5 mg tablet 2.5 mg PO QAM 03/10/20 05/16/20 aspirin 81 mg tablet,delayed 81 mg PO QAM 03/10/20 05/16/20 release spironolactone 25 mg tablet 25 mg PO QAM 03/10/20 05/16/20 acyclovir 400 mg PO BID 05/16/20 05/16/20 calcium carbonate [Calcium 500] 500 mg PO BID 05/16/20 05/16/20 dexamethasone 4 mg PO UD 05/16/20 05/16/20 Results & Data (ED) Vital Signs Vital Signs - 24 hr 05/16/20 11:11 05/16/20 12:10 05/16/20 12:30 Temperature 36.8 C Temperature Source Oral Pulse Rate 73 83 75 Pulse Rate from SpO2 Sensor 83 75 Respiratory Rate 16 24 18 Respiratory Effort / Characteristics Non-Labored Respiratory Depth Normal Blood Pressure 177/91 H 176/97 H 155/92 H Blood Pressure Mean 119 133 118 Blood Pressure Position Sitting Pulse Oximetry 94 92 95 Oxygen Delivery Method Room Air Sepsis Recent Fever Within 48 Hours No Sepsis New/Unexplained Change in Mental Status N/A Sepsis Action Taken by Nursing No Action Required Laboratory Data Attestation: I reviewed the patient's lab results. Lab Results 05/16/20 05/16/20 05/16/20 Range/Units 09:17 11:25 11:25 PT (9.0-12.0) Seconds INR (0.9-1.1) APTT (21.0-31.0) Seconds PTT Ratio Phosphorus 2.8 (2.5-4.9) mg/dl Magnesium 2.1 (1.8-2.4) mg/dl Troponin I 0.024 0.025 (0-0.045) ng/ml NT-Pro-B Natriuret Pep 358 (0-1800) pg/ml 05/16/20 Range/Units 11:25 PT 10.3 (9.0-12.0) Seconds INR 1.0 (0.9-1.1) APTT 23.8 (21.0-31.0) Seconds PTT Ratio 0.9 Phosphorus (2.5-4.9) mg/dl Magnesium (1.8-2.4) mg/dl Troponin I (0-0.045) ng/ml NT-Pro-B Natriuret Pep (0-1800) pg/ml Administered Medications Acyclovir (Acyclovir 400 Mg Tab) 400 mg PO BID VINCENT Stop: 06/15/20 20:59 Last Admin: 05/16/20 21:34 Dose: 400 mg Documented by: [id number] Atorvastatin Calcium (Atorvastatin 10 Mg Tab) 5 mg PO HS VINCENT Stop: 06/15/20 20:59 Last Admin: 05/16/20 21:33 Dose: 5 mg Documented by: [id number] Calcium Carbonate (Calcium Carbonate 1250mg Tab) 1,250 mg PO BID VINCENT Stop: 06/15/20 20:59 Last Admin: 05/16/20 21:33 Dose: 1,250 mg Documented by: [id number] Carvedilol (Carvedilol 3.125 Mg Tab) 3.125 mg PO BID VINCENT Stop: 06/15/20 20:59 Last Admin: 05/16/20 21:33 Dose: 3.125 mg Documented by: [id number] Enoxaparin Sodium (Enoxaparin 100 Mg/1ml Syr) 90 mg SQ Q12H VINCENT Stop: 06/15/20 13:44 Last Admin: 05/16/20 13:55 Dose: 90 mg Documented by: [id number] Hydralazine HCl (Hydralazine Tab 50 Mg Tab) 50 mg PO TID VINCENT Stop: 06/15/20 20:59 Last Admin: 05/16/20 21:33 Dose: 50 mg Documented by: [id number] Magnesium Oxide (Magnesium Oxide 400 Mg Tab) 400 mg PO QPM VINCENT Stop: 06/15/20 20:59 Last Admin: 05/16/20 21:42 Dose: 400 mg Documented by: [id number] Pantoprazole Sodium (Pantoprazole 40 Mg Tab) 40 mg PO HS VINCENT; Protocol Stop: 06/15/20 20:59 Last Admin: 05/16/20 21:33 Dose: 40 mg Documented by: [id number] Terazosin HCl (Terazosin Hcl 5 Mg Cap) 5 mg PO HS VINCENT Stop: 06/15/20 20:59 Last Admin: 05/16/20 21:33 Dose: 5 mg Documented by: [id number] Vitamin D (Cholecalciferol 1,000 Units 25 Mcg Tab) 2,000 units PO QPM VINCENT Stop: 06/15/20 20:59 Last Admin: 05/16/20 21:32 Dose: 2,000 units Documented by: [id number] Discontinued Medications Hydralazine HCl (Hydralazine Hcl 20 Mg/Ml Vial) 10 mg IV NOW STA Stop: 05/16/20 14:45 Last Admin: 05/16/20 16:48 Dose: Not Given Documented by: [id number] Sodium Chloride (Nss) 500 mls @ 999 mls/hr IV .Q31M ONE Stop: 05/16/20 12:15 Last Infusion: 05/16/20 12:46 Dose: 0 mls/hr Documented by: [id number] Admin: 05/16/20 12:14 Dose: 999 mls/hr Documented by: [id number] Ioversol (Optiray 320 125ml) 120 ml IV ONCE ONE Stop: 05/16/20 12:10 Last Admin: 05/16/20 12:10 Dose: 120 ml Documented by: [id number] Discharge Plan Visit Data Chief Complaint: Illness Stated Complaint: LOW OXYGEN(FROM [facility]) ED Provider: Niraj Mahmood Discharge Problem: Pulmonary embolism on right, Multiple myeloma, Dyspnea on minimal exertion, LBBB (left bundle branch block) Patient Disposition: Admitted As Inpatient Discharge Instructions Interventions: ED Discharge Assessment Last Done: 05/16/20 16:46 Discharge Problem: Multiple myeloma Qualifiers: Multiple myeloma remission status: unspecified Qualified Code(s): C90.00 - Multiple myeloma not having achieved remission
[2020-05-16 12:59] LABS: Partial Thromboplastin Ratio 0.9; Partial Thromboplastin Time 23.8 Seconds (21.0-31.0); Prothrombin Time 10.3 Seconds (9.0-12.0)
[2020-05-16] MEDS ORDERED: ENOXAPARIN 1 MG/KG SQ SCH (13:15)
--- NOTE | 2020-05-16 13:42 | History & Physical Report ---
Date of Service May 16, 2020 Assessment & Plan (1) Pulmonary embolism on right: This is an 80-year-old male who has significant past medical history of multiple myeloma, monoclonal paraproteinemia, chronic diastolic CHF, HTN, HLD, NAHEED on CPAP, CKD stage III baseline creatinine 1.4, hypothyroidism, GERD, BPH, depression who presents to ED secondary to FARAH times several weeks. In ED patient made hemodynamically stable although he was hypertensive. CTA chest Revealed extensive right-sided pulmonary emboli with few small subsegmental left lower lobe pulmonary emboli. Straightening of the interventricular septum raises possibility of right heart strain. Moderate cardiomegaly. Of significance he did undergo echocardiogram 05/10 which revealed EF 35%, mild LVH, mild left atrial margin, grade 1 diastolic dysfunction, pulmonary pressure 39 mmHg. Outpatient lab work reviewed which reviewed H&H 11.9 and 35.3, platelet 129, BUN 23, creatinine 1.35. Admit to tele Lovenox 90mg SQ Q12 monitor cbc, plt level - ok to anticoagulate as long as plt > 50k per heme/onc obtain echocardiogram r/o right heart strain b/l venous duplex covid screen consult case management to determine cost of DOACS vs Coumadin (2) Multiple myeloma: [facility] Saw Shannon Yang PA-C in clinic today currently in remission, as of 05/09. Completes Vercade, Darzalex and decadron Now on single agent Darzalex to start 06/06 Spoke with Shannon regarding above and she agrees (3) Diastolic heart failure: euvolemic continue coreg takes lasix prn daily weights, strict I and O echo 05/10 EF 55%, grade 1 DD repeat echo to eval for right heart strain (4) Hypertension: BP elevated in ED, likely in setting of situation/dyspnea continue coreg, hydralazine, amlodipine (5) Thrombocytopenia: Plt 129, baseline 180s monitor cbc (6) Anemia, unspecified: H/H stable 11.9/35.3 anemia of chronic disease in setting of CKD and malignancy (7) BPH (benign prostatic hyperplasia): continue terazosin (8) Prolonged QT interval: QTC 521ms monitor QTCc (9) Major depression: Continue celexa mood stable (10) Obstructive sleep apnea on CPAP: CPAP at HS (11) DVT prophylaxis: Therapeutic Lovenox Disposition: admit to PCU Follow up: PCP Dr. Stout upon discharge Pt was seen and examined in collaboration with Dr. Jones, please see addendum History of Present Illness Chief Complaint: FARAH x several weeks. Primary Care Provider: Musa Stout MD This is an 80-year-old male who has significant past medical history of multiple myeloma, monoclonal paraproteinemia, chronic diastolic CHF, HTN, HLD, NAHEED on CPAP, CKD stage III baseline creatinine 1.4, hypothyroidism, GERD, BPH, depression who presents to ED secondary to FARAH times several weeks. Of significance patient currently has multiple myeloma and has been undergoing treatment since November 2019. He follows cancer care [facility]. He receives Velcade, Darzalex and Decadron weekly. He was seen and evaluated in cancer care clinic today and was referred to ED secondary to worsened dyspnea on exertion and hypoxia. Daughter is at bedside. Patient elicits over the last several weeks he has been experiencing dyspnea on exertion. It has significantly worsened over the past week. Even little activity including ADLs caused him to be dyspneic. He denies any shortness of breath at rest, cough or hemoptysis. He denies any prior history of PE. He denies fever, chills, sweats, lightheadedness, dizziness, syncope, chest pain, palpitations, nausea, vomiting, abdominal pain, hematemesis, melena, change in bowel or urinary habits. His daughter at bedside takes care of his medications. She states that he did not receive chemo today but did receive his oral Decadron. She has noticed over the last several weeks a decline in regards to breathing status. Last evening at rest she was checking his pulse oximetry which was within normal limits however when he would ambulate it would desaturate to the 80s. In ED patient made hemodynamically stable although he was hypertensive. CTA chest Revealed extensive right-sided pulmonary emboli with few small subsegmental left lower lobe pulmonary emboli. Straightening of the interventricular septum raises possibility of right heart strain. Moderate cardiomegaly. Of significance he did undergo echocardiogram 05/10 which revealed EF 35%, mild LVH, mild left atrial margin, grade 1 diastolic dysfunction, pulmonary pressure 39 mmHg. Outpatient lab work reviewed which reviewed H&H 11.9 and 35.3, platelet 129, BUN 23, creatinine 1.35. Allergies Allergy/AdvReac Type Severity Reaction Status Date / Time No Known Allergies Allergy Verified 05/16/20 13:13 Home Medications Home Medications Medication Instructions Recorded Confirmed Type allopurinol 300 mg PO QAM 04/30/18 05/16/20 History atorvastatin 5 mg PO HS 04/30/18 05/16/20 History cholecalciferol (vitamin D3) 2,000 unit PO QPM 04/30/18 05/16/20 History [Vitamin D3] citalopram [Celexa] 20 mg PO QAM 04/30/18 05/16/20 History hydralazine 50 mg PO TID 04/30/18 05/16/20 History magnesium oxide 400 mg PO QPM 04/30/18 05/16/20 History omeprazole 40 mg PO HS 04/30/18 05/16/20 History terazosin 5 mg PO HS 04/30/18 05/16/20 History carvedilol 3.125 mg PO BID 09/18/18 05/16/20 History levothyroxine 112 mcg PO QAM 05/22/19 05/16/20 History furosemide 20 mg tablet 20 mg PO UD PRN tab 08/16/19 05/16/20 History amlodipine 5 mg tablet 2.5 mg PO QAM 03/10/20 05/16/20 History aspirin 81 mg tablet,delayed 81 mg PO QAM 03/10/20 05/16/20 History release spironolactone 25 mg tablet 25 mg PO QAM 03/10/20 05/16/20 History calcium carbonate [Calcium 500] 500 mg PO BID 05/16/20 05/16/20 History dexamethasone 4 mg PO UD 05/16/20 05/16/20 History Past Med/Surg History Medical History (Updated 05/16/20 @ 14:08 by Milena Quinones PA-C) Acute respiratory failure with hypoxia BPH without obstruction/lower urinary tract symptoms Carpal tunnel syndrome CKD (chronic kidney disease), stage III Diastolic heart failure GERD (gastroesophageal reflux disease) Gout History of cardiac arrhythmia History of paroxysmal supraventricular tachycardia Hyperlipidemia Hypertension Insomnia LBBB (left bundle branch block) Monoclonal paraproteinemia Morbid (severe) obesity due to excess calories 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 SVT in setting of hypokalemia noted during that admission. Admitted again to [facility] 07/28-07/30/18 for pneumonia with hypoxia. No arrhythmia noted. Lungs CTA B/L on exam at [facility] 09/25. Prolonged QT interval Restless leg syndrome Sepsis Surgical History H/O cataract removal with insertion of prosthetic lens H/O knee surgery H/O sinus surgery History of appendectomy History of bilateral knee arthroplasty History of cataract surgery RT/LEFT History of colonoscopy History of esophagogastroduodenoscopy (EGD) History of hip surgery History of tooth extraction History of total right hip arthroplasty Hx of cholecystectomy Status post total hip replacement, left Family History Father Heart disease Mother Diabetes Hypertension Brother Family hx of colon cancer Social History Smoking Status: Never smoker Second Hand Exposure: No; Do You Dip or Chew Tobacco: No; Tobacco Cessation Education Requested by Patient: No Hx Alcohol Use: No Hx Substance Use: No Preferred Language: Luxembourgish Communication Ability: Effective [employer] Examiner Required: No Beliefs That Will Affect Care: None marital status: Current Living Situation: Spouse How many Children do You have: 1 Other Information That Helps Us Care for You: No Feels Safe at Home: Yes Safety Concerns: Feels Safe At This Time Assistive Devices: None Review of Systems Review of Systems: All systems reviewed & are unremarkable except as noted in HPI & below Physical Exam Physical Exam: Constitutional: WD/WN, Elderly, M, Pale, vitals as above, NAD, sitting up in bed, pleasant, dyspneic with conversation Head: Normocephalic, Atraumatic Eyes: PERRL, conjunctivae normal, anicteric sclerae ENMT: external ear and nose normal, oropharynx normal Neck: trachea midline, no thyromegaly normal visual inspection Respiratory: normal respiratory effort, lungs clear to auscultation, no wheeze, rales, rhonchi. Normal insp/exp effort, no accessory muscle use Cardiovascular: RRR, no murmur, trace ankle edema bilaterally Vessels: no JVD or carotid bruit Chest: normal inspection of chest Abdomen: Protuberant abdomen, normal bowel sounds, soft, nontender, no hepatosplenomegaly Musculoskeletal: no cyanosis or clubbing, extremities motor strength 5/5 Skin: no rashes, warm and dry normal turgor Neurologic: PERRL, EOMI, accommodation nl, no face palsy, no dysarthria CN's II-XI intact bilaterally and moves all extremities Psychiatric: A+Ox3, euthymic affect Lymphatic: no cervical or axillary lymphadenopathy : deferred Results & Data Results & Data ([place]) Vital Signs (Past 12 Hours) Vital Signs Temp Pulse Resp BP Pulse Ox 05/16/20 12:30 75 18 155/92 H 95 05/16/20 12:10 83 24 176/97 H 92 05/16/20 11:11 36.8 C 73 16 177/91 H 94 Laboratory Results Cardiac Enzymes 05/16/20 05/16/20 Range/Units 09:17 11:25 Troponin I 0.024 0.025 (0-0.045) ng/ml Outside labs done 05/16/2020 H&H 11.9 and 35.3, platelets 129, WBC 9k, BUN 23, creatinine 1.35, sodium 142, K3.7 Diagnostic Findings CTA Chest: IMPRESSION: 1. Extensive right-sided pulmonary emboli with a few small subsegmental left lower lobe pulmonary emboli. Straightening of the interventricular septum raises the possibility of right heart strain. Findings discussed with Dr. Mahmood at time of dictation. No pulmonary infarct. 2. Moderate cardiomegaly. Medications Administered Discontinued Medications Sodium Chloride (Nss) 500 mls @ 999 mls/hr IV .Q31M ONE Stop: 05/16/20 12:15 Last Infusion: 05/16/20 12:46 Dose: 0 mls/hr Documented by: [id number] Admin: 05/16/20 12:14 Dose: 999 mls/hr Documented by: [id number] Ioversol (Optiray 320 125ml) 120 ml IV ONCE ONE Stop: 05/16/20 12:10 Last Admin: 05/16/20 12:10 Dose: 120 ml Documented by: [id number] ECG Rhythm: normal sinus Findings: + LBBB, + PAC, + PVC and + prolonged QT (qtc 521ms) Code Status & VTE Plan Code Status Full Code VTE Prophylaxis Plan VTE Prophylaxis will be ordered: No Reason for no VTE drug order: Contraindicated Supervising Physician Co-Signing Physician Notes Pt was seen and examined. Agreed with Milena exam, assessment and plan. 80-year-old male who has significant past medical history of multiple myeloma, monoclonal paraproteinemia, chronic diastolic CHF, HTN, HLD, NAHEED on CPAP, CKD stage III baseline creatinine 1.4, hypothyroidism, GERD, BPH, present to the ED after sending from the cancer clinic due to SOB on exertion and hypoxia. Pt said that for the last few weeks he has been having SOB with minimal exertion that seems to worsening. Denies fever, chills, sweats, lightheadedness, dizziness, syncope, chest pain, palpitations, nausea, vomiting, abdominal pain, hematemesis, melena. CTA chest done on admission showed Extensive right-sided pulmonary emboli with a few small subsegmental left lower lobe pulmonary emboli. Straightening of the interventricular septum raises the possibility of right heart strain. No pulmonary infarct. Venous doppler showed acute right popliteal vein DVT. No evidence of left lower extremity DVT. Will start on Lovenox therapeutic dose BID. Anticoagulant risks discussed with patient such as intracranial bleeding, GI bleeding and hematuria. Fall precaution. Continue monitor closely. MD Robert
[2020-05-16] MEDS: ENOXAPARIN 100 MG/1ML SYR SQ SCH (13:55)
[2020-05-16] MEDS ORDERED: hydrALAZINE HCL 20 MG/ML VIAL IV STA (14:44)
--- NOTE | 2020-05-16 17:16 | Ultrasound Report ---
US venous doppler LE BI CLINICAL HISTORY: Acute pulmonary embolism. Evaluate for DVT. COMPARISON STUDY: May 2019 FINDINGS: Grayscale, color-flow, Doppler spectral waveform analysis was performed. Within the left leg, no intraluminal thrombus was visualized. The veins were fully compressible from the groin to the popliteal vein. There is normal augmentation. There is normal color-flow the proxima l trifurcation veins of the left calf. On the right, no thrombus is visualized within the common femoral or superficial femoral veins. There is nonocclusive thrombus within the right popliteal vein. IMPRESSION: 1. Acute right popliteal vein DVT 2. No evidence of left lower extremity DVT ACT 112: Negative or not required by law. Electronically signed by: Jason Ghosh M.D. 05/16/2020 5:14 PM
[2020-05-16] MEDS ORDERED: ACETAMINOPHEN 325 MG TAB PO PRN (17:24)
[2020-05-16] MEDS ORDERED: POLYETHYLENE (MIRALAX) 17 GM PACK PO PRN (17:24)
[2020-05-16] MEDS ORDERED: MAGNESIUM HYDROXIDE SUSP 30 ML UDC PO PRN (17:24)
[2020-05-16] MEDS ORDERED: ALUMINUM/MAGNESIUM SUSP 30 ML UDC PO PRN (17:24)
[2020-05-16] MEDS: CHOLECALCIFEROL 1,000 UNITS 25 MCG TAB PO SCH (21:32)
[2020-05-16] MEDS: CALCIUM CARBONATE 1250MG TAB PO SCH (21:33)
[2020-05-16] MEDS: hydrALAZINE TAB 50 MG TAB PO SCH (21:33)
[2020-05-16] MEDS: PANTOprazole 40 MG TAB PO SCH (21:33)
[2020-05-16] MEDS: TERAZOSIN HCL 5 MG CAP PO SCH (21:33)
[2020-05-16] MEDS: ATORVASTATIN 10 MG TAB PO SCH (21:33)
[2020-05-16] MEDS: carvediloL 3.125 MG TAB PO SCH (21:33)
[2020-05-16] MEDS: ACYCLOVIR 400 MG TAB PO SCH (21:34)
[2020-05-16] MEDS: MAGNESIUM OXIDE 400 MG TAB PO SCH (21:42)
[2020-05-17] MEDS: ENOXAPARIN 100 MG/1ML SYR SQ SCH ×2 (02:55→13:18)
[2020-05-17] MEDS: LEVOTHYROXINE SODIUM 112 MCG TABLET PO SCH (06:25)
[2020-05-17 06:52] LABS: Hematocrit (blood only) 35.1 % (42-52); Mean Corpuscular Hemoglobin 32.8 pg (25-34); Mean Corpuscular Hgb Conc 34.2 g/dL (32-36); Mean Corpuscular Volume 95.9 fL (80-100); Mean Platelet Volume 12.5 fL (7.4-10.4); Platelet Count 156 K/uL (130-400); RDW Coefficient of Variation 13.7 % (11.5-14.5); RDW Standard Deviation 47.6 fL (36.4-46.3); Red Blood Count 3.66 M/uL (4.7-6.1); White Blood Count 13.99 K/uL (4.8-10.8)
[2020-05-17 07:13] LABS: Calcium 8.4 mg/dl (8.5-10.1); Creatinine Clr Calc Pharmacy 51.9 ml/min; Est GFR (African American) 52.3; Est GFR (Non-African American) 45.2; Potassium 3.6 mmol/L (3.5-5.1)
[2020-05-17] MEDS: CALCIUM CARBONATE 1250MG TAB PO SCH ×2 (09:11→20:52)
[2020-05-17] MEDS: ACYCLOVIR 400 MG TAB PO SCH ×2 (09:11→20:55)
[2020-05-17] MEDS: amLODIPine BESYLATE 5 MG TAB PO SCH (09:12)
[2020-05-17] MEDS: hydrALAZINE TAB 50 MG TAB PO SCH ×3 (09:12→20:49)
[2020-05-17] MEDS: allopurinoL 300 MG TAB PO SCH (09:12)
[2020-05-17] MEDS: carvediloL 3.125 MG TAB PO SCH ×2 (09:12→20:51)
[2020-05-17] MEDS: ASPIRIN 81 MG ECTAB PO SCH (09:13)
[2020-05-17] MEDS: SPIRONOLACTONE 25 MG TAB PO SCH (09:13)
[2020-05-17] MEDS: CITALOPRAM 20 MG TAB PO SCH (09:13)
--- NOTE | 2020-05-17 14:53 | Hospitalist Progress Note ---
Date of Service May 17, 2020 Assessment & Plan (1) Pulmonary embolism on right: This is an 80-year-old male who has significant past medical history of multiple myeloma, monoclonal paraproteinemia, chronic diastolic CHF, HTN, HLD, NAHEED on CPAP, CKD stage III baseline creatinine 1.4, hypothyroidism, GERD, BPH, depression who presents to ED secondary to FARAH times several weeks. CTA chest Revealed extensive right-sided pulmonary emboli with few small subsegmental left lower lobe pulmonary emboli. He has been reasonably ambulatory at home and that DVT/pulmonary embolism is seems to be secondary to multiple myeloma Of significance he did undergo echocardiogram 05/10 which revealed EF 35%, mild LVH, mild left atrial margin, grade 1 diastolic dysfunction, pulmonary pressure 39 mmHg. Echo of the heart on 05/17/2020 showed: LV size is normal, LV systolic function is normal with EF 60 to 65%, RV systolic function is normal, both atria are normal. Has been getting Lovenox 90 mg subcu twice daily Will need to determine the anticoagulant choice on discharge-we will discuss with the oncologist (2) Multiple myeloma: [facility] care [facility] Saw Shannon Yang PA-C in clinic today currently in remission, as of 05/09. Completes Vercade, Darzalex and decadron Now on single agent Darzalex to start 06/06 Spoke with Shannon regarding above and she agrees (3) Diastolic heart failure: euvolemic continue coreg takes lasix prn daily weights, strict I and O echo 05/10 EF 55%, grade 1 DD repeat echo to eval for right heart strain-as above (4) Hypertension: BP elevated in ED, likely in setting of situation/dyspnea continue coreg, hydralazine, amlodipine (5) Thrombocytopenia: Plt 129, baseline 180s monitor cbc (6) Anemia, unspecified: H/H stable 11.9/35.3 anemia of chronic disease in setting of CKD and malignancy (7) BPH (benign prostatic hyperplasia): continue terazosin (8) Prolonged QT interval: QTC 521ms monitor QTCc (9) Major depression: Continue celexa mood stable (10) Obstructive sleep apnea on CPAP: CPAP at HS (11) DVT prophylaxis: Therapeutic Lovenox Disposition: admit to PCU Follow up: PCP Dr. Stout upon discharge Pt was seen and examined in collaboration with Dr. Jones, please see addendum Admission and Anticipated Discharge Date Admission Date: May 16, 2020 Subjective The patient was seen and examined in telemetry unit He has been feeling a lot better since admission Denies any chest pain, palpitation, shortness of breath at rest Been ambulating in the room without any problem Review of Systems Review of Systems: All systems reviewed and are unremarkable except as noted below Respiratory: no cough and no dyspnea Cardiovascular: no chest pain and no palpitations Physical Exam Physical Exam: Sitting on a chair without any acute distress Constitutional: well developed, well nourished and + obese; no acute distress Eyes: PERRL, conjunctivae normal, anicteric sclerae ENMT: external ear and nose normal, oropharynx normal Neck: trachea midline, no thyromegaly Respiratory: no respiratory distress Auscultation: lungs clear to auscultation bilaterally Cardiovascular: Rate/Rhythm: regular rate and regular rhythm Heart Sounds: no murmur Extremities: + edema (1+ edema bilaterally) Gastrointestinal (Abdomen): Inspection/Auscultation: normal bowel sounds; abdomen not distended Percussion/Palpation: abdomen soft; abdomen nontender Musculoskeletal: No acute arthritis in any joint Neurologic: Alert, awake and oriented x3. No focal sensory and motor deficit appreciated Psychiatric: A+Ox3, euthymic affect Lymphatic: no cervical or axillary lymphadenopathy Results & Data Results & Data ([facility]) Vital Signs (Past 12 Hours) Vital Signs Temp Pulse Pulse Resp BP Pulse Ox 05/17/20 11:14 37.0 C 77 22 125/70 96 05/17/20 07:50 36.8 C 75 66 19 157/80 H 94 05/17/20 03:59 36.1 C L 63 16 144/75 H 97 05/17/20 03:30 63 18 93 Laboratory Results Short CBC 05/17/20 Range/Units 06:10 WBC 13.99 H (4.8-10.8) K/uL Hgb 12.0 L (14.0-18.0) g/dL Hct 35.1 L (42-52) % Plt Count 156 (130-400) K/uL BMP 05/17/20 06:10 Sodium 142 Potassium 3.6 Chloride 110 H Carbon Dioxide 25 BUN 26 H Creatinine 1.45 H Glucose 174 H Calcium 8.4 L Medications Administered Current Inpatient Medications Acetaminophen (Acetaminophen 325 Mg Tab) 650 mg PO Q4H PRN PRN Reason: Pain or Fever Stop: 06/15/20 17:23 Acyclovir (Acyclovir 400 Mg Tab) 400 mg PO BID [facility] Stop: 06/15/20 20:59 Last Admin: 05/17/20 09:11 Dose: 400 mg Documented by: Al Hydrox/Mg Hydrox/Simethicone (Aluminum/Magnesium Susp 30 Ml Udc) 15 ml PO Q4H PRN PRN Reason: Dyspepsia Stop: 06/15/20 17:23 Allopurinol (Allopurinol 300 Mg Tab) 300 mg PO QAM [facility] Stop: 06/16/20 08:59 Last Admin: 05/17/20 09:12 Dose: 300 mg Documented by: Amlodipine Besylate (Amlodipine Besylate 5 Mg Tab) 2.5 mg PO QAM [facility] Stop: 06/16/20 08:59 Last Admin: 05/17/20 09:12 Dose: 2.5 mg Documented by: Aspirin (Aspirin 81 Mg Ectab) [facility] Stop: 06/16/20 08:59 Last Admin: 05/17/20 09:13 Dose: 81 mg Documented by: Atorvastatin Calcium (Atorvastatin 10 Mg Tab) 5 mg PO HS [facility] Stop: 06/15/20 20:59 Last Admin: 05/16/20 21:33 Dose: 5 mg Documented by: Calcium Carbonate (Calcium Carbonate 1250mg Tab) 1,250 mg PO BID [facility] Stop: 06/15/20 20:59 Last Admin: 05/17/20 09:11 Dose: 1,250 mg Documented by: Carvedilol (Carvedilol 3.125 Mg Tab) 3.125 mg PO BID [facility] Stop: 06/15/20 20:59 Last Admin: 05/17/20 09:12 Dose: 3.125 mg Documented by: Citalopram Hydrobromide (Citalopram 20 Mg Tab) 20 mg PO QAM [facility] Stop: 06/16/20 08:59 Last Admin: 05/17/20 09:13 Dose: 20 mg Documented by: Enoxaparin Sodium (Enoxaparin 100 Mg/1ml Syr) 90 mg SQ Q12H [facility] Stop: 06/15/20 13:44 Last Admin: 05/17/20 13:18 Dose: 90 mg Documented by: Hydralazine HCl (Hydralazine Tab 50 Mg Tab) 50 mg PO TID [facility] Stop: 06/15/20 20:59 Last Admin: 05/17/20 13:19 Dose: 50 mg Documented by: Levothyroxine Sodium (Levothyroxine Sodium 112 Mcg Tablet) 112 mcg PO DAILYBB [facility] Stop: 06/16/20 06:29 Last Admin: 05/17/20 06:25 Dose: 112 mcg Documented by: Magnesium Hydroxide (Magnesium Hydroxide Susp 30 Ml Udc) 30 ml PO Q12H PRN PRN Reason: Constipation Stop: 06/15/20 17:23 Magnesium Oxide (Magnesium Oxide 400 Mg Tab) 400 mg PO QPM [facility] Stop: 06/15/20 20:59 Last Admin: 05/16/20 21:42 Dose: 400 mg Documented by: Pantoprazole Sodium (Pantoprazole 40 Mg Tab) 40 mg PO HS [facility]; Protocol Stop: 06/15/20 20:59 Last Admin: 05/16/20 21:33 Dose: 40 mg Documented by: Polyethylene Glycol (Polyethylene (Miralax) 17 Gm Pack) 17 gm PO DAILY PRN PRN Reason: Constipation Stop: 06/15/20 17:23 Spironolactone (Spironolactone 25 Mg Tab) 25 mg PO QAM [facility] Stop: 06/16/20 08:59 Last Admin: 05/17/20 09:13 Dose: 25 mg Documented by: Terazosin HCl (Terazosin Hcl 5 Mg Cap) 5 mg PO HS [facility] Stop: 06/15/20 20:59 Last Admin: 05/16/20 21:33 Dose: 5 mg Documented by: Vitamin D (Cholecalciferol 1,000 Units 25 Mcg Tab) 2,000 units PO QPM [facility] Stop: 06/15/20 20:59 Last Admin: 05/16/20 21:32 Dose: 2,000 units Documented by: (1) Multiple myeloma Multiple myeloma remission status: unspecified Qualified Code(s): C90.00 - Multiple myeloma not having achieved remission
[2020-05-17] MEDS: TERAZOSIN HCL 5 MG CAP PO SCH (20:48)
[2020-05-17] MEDS: ATORVASTATIN 10 MG TAB PO SCH (20:50)
[2020-05-17] MEDS: PANTOprazole 40 MG TAB PO SCH (20:53)
[2020-05-17] MEDS: CHOLECALCIFEROL 1,000 UNITS 25 MCG TAB PO SCH (20:55)
[2020-05-17] MEDS: MAGNESIUM OXIDE 400 MG TAB PO SCH (20:59)
[2020-05-18] MEDS: ENOXAPARIN 150 MG/ML SYR SQ SCH ×2 (02:57→14:02)
[2020-05-18] MEDS: LEVOTHYROXINE SODIUM 112 MCG TABLET PO SCH (05:56)
[2020-05-18 06:04] LABS: Hematocrit (blood only) 34.5 % (42-52); Hemoglobin 11.6 g/dL (14.0-18.0); Immature Granulocytes # (auto) 0.05 K/uL (0.00-0.02); Immature Granulocytes % (auto) 0.3 %; Lymphocytes # (auto) 0.89 K/uL (1.2-3.4); Lymphocytes % (auto) 5.6 %; Mean Corpuscular Hemoglobin 32.6 pg (25-34); Mean Corpuscular Hgb Conc 33.6 g/dL (32-36); Mean Corpuscular Volume 96.9 fL (80-100); Monocytes # (auto) 1.65 K/uL (0.11-0.59); Monocytes % (auto) 10.3 %; Neutrophils # (auto) 13.41 K/uL (1.4-6.5); Neutrophils % (auto) 83.8 %; Platelet Count 159 K/uL (130-400); RDW Coefficient of Variation 13.9 % (11.5-14.5); RDW Standard Deviation 49.5 fL (36.4-46.3); Red Blood Count 3.56 M/uL (4.7-6.1)
[2020-05-18 06:31] LABS: BUN Creatinine Ratio 23.8 (10-20); Calcium 7.8 mg/dl (8.5-10.1); Creatinine Clr Calc Pharmacy 54.9 ml/min; Est GFR (African American) 56.1; Est GFR (Non-African American) 48.4; Potassium 3.7 mmol/L (3.5-5.1)
[2020-05-18] MEDS: CITALOPRAM 20 MG TAB PO SCH (08:13)
[2020-05-18] MEDS: allopurinoL 300 MG TAB PO SCH (08:13)
[2020-05-18] MEDS: ACYCLOVIR 400 MG TAB PO SCH (08:13)
[2020-05-18] MEDS: SPIRONOLACTONE 25 MG TAB PO SCH (08:13)
[2020-05-18] MEDS: carvediloL 3.125 MG TAB PO SCH (08:13)
[2020-05-18] MEDS: CALCIUM CARBONATE 1250MG TAB PO SCH (08:14)
[2020-05-18] MEDS: hydrALAZINE TAB 50 MG TAB PO SCH ×2 (08:14→14:02)
[2020-05-18] MEDS: amLODIPine BESYLATE 5 MG TAB PO SCH (08:14)
[2020-05-18] MEDS: ASPIRIN 81 MG ECTAB PO SCH (08:14)
--- NOTE | 2020-05-18 08:54 | Electrocardiogram Report ---
Test Reason : Blood Pressure : / mmHG Vent. Rate : 072 BPM Atrial Rate : 072 BPM P-R Int : 252 ms QRS Dur : 158 ms QT Int : 466 ms P-R-T Axes : 071 -56 117 degrees QTc Int : 510 ms Sinus rhythm with 1st degree A-V block with occasional premature complexes which are narrower than th e intrisic but appear ventricular, possibly fascicular Left axis deviation Left bundle branch block Abnormal ECG When compared with ECG of 16-MAY-2020 11:25, Premature beats are now narrow Confirmed by Garcia Burgess ([id number]) on 05/18/2020 8:53:57 AM Referred By: REFERRED SELF Confirmed By:Garcia Burgess
--- NOTE | 2020-05-18 11:03 | Electrocardiogram Report ---
Test Reason : Blood Pressure : / mmHG Vent. Rate : 067 BPM Atrial Rate : 067 BPM P-R Int : 228 ms QRS Dur : 154 ms QT Int : 486 ms P-R-T Axes : 045 -10 111 degrees QTc Int : 513 ms Sinus rhythm with 1st degree A-V block with Premature supraventricular complexes Left bundle branch block Abnormal ECG When compared with ECG of 17-MAY-2020 06:33, (unconfirmed) Premature supraventricular complexes are now Present QRS axis Shifted right Confirmed by Garcia Burgess ([id number]) on 05/18/2020 11:02:31 AM Referred By: REFERRED SELF Confirmed By:Garcia Burgess
--- NOTE | 2020-05-18 12:43 | Hospitalist Progress Note ---
Date of Service May 18, 2020 Assessment & Plan (1) Pulmonary embolism on right: This is an 80-year-old male who has significant past medical history of multiple myeloma, monoclonal paraproteinemia, chronic diastolic CHF, HTN, HLD, NAHEED on CPAP, CKD stage III baseline creatinine 1.4, hypothyroidism, GERD, BPH, depression who presents to ED secondary to FARAH times several weeks. CTA chest Revealed extensive right-sided pulmonary emboli with few small subsegmental left lower lobe pulmonary emboli. He has been reasonably ambulatory at home and that DVT/pulmonary embolism is seems to be secondary to multiple myeloma Of significance he did undergo echocardiogram 05/10 which revealed EF 35%, mild LVH, mild left atrial margin, grade 1 diastolic dysfunction, pulmonary pressure 39 mmHg. Echo of the heart on 05/17/2020 showed: LV size is normal, LV systolic function is normal with EF 60 to 65%, RV systolic function is normal, both atria are normal. Has been getting Lovenox 125 mg subcu twice daily Discussed with oncologist and he will be put on Eliquis from today He passed 2 steps O2 saturation test He has been ambulating in the hallway without any symptoms Discharged home this afternoon (2) Multiple myeloma: [facility] Saw Shannon Yang PA-C in clinic today currently in remission, as of 05/09. Completes Vercade, Darzalex and decadron Now on single agent Darzalex to start 06/06 Spoke with Shannon regarding above and she agrees Cussed with Dr. Dodge the oncologist (3) Diastolic heart failure: euvolemic continue coreg takes lasix prn daily weights, strict I and O echo 05/10 EF 55%, grade 1 DD repeat echo to eval for right heart strain-as above (4) Hypertension: BP elevated in ED, likely in setting of situation/dyspnea continue coreg, hydralazine, amlodipine (5) Thrombocytopenia: Plt 129, baseline 180s monitor cbc (6) Anemia, unspecified: H/H stable 11.9/35.3 anemia of chronic disease in setting of CKD and malignancy (7) BPH (benign prostatic hyperplasia): continue terazosin (8) Prolonged QT interval: QTC 521ms monitor QTCc (9) Major depression: Continue celexa mood stable (10) Obstructive sleep apnea on CPAP: CPAP at HS (11) DVT prophylaxis: Therapeutic Lovenox Disposition: admit to PCU Follow up: PCP Dr. Stout upon discharge Discussed with the patient's daughter and explained side effect and benefit of taking Eliquis The patient and the daughter understood it completely Admission and Anticipated Discharge Date Admission Date: May 16, 2020 Subjective The patient was seen and examined in telemetry unit He has been feeling a lot better since admission Denies any chest pain, palpitation, shortness of breath at rest Been ambulating in the room without any problem 05/18/2020 The patient was seen and examined in the telemetry unit He has been feeling a lot better and denies any symptoms He has been ambulating without any difficulty and he passed 2 steps O2 saturation test Review of Systems Review of Systems: All systems reviewed and are unremarkable except as noted below Physical Exam Physical Exam: Sitting on a chair without any acute distress Constitutional: well developed, well nourished and + obese; no acute distress Eyes: PERRL, conjunctivae normal, anicteric sclerae ENMT: external ear and nose normal, oropharynx normal Neck: trachea midline, no thyromegaly Respiratory: no respiratory distress Auscultation: lungs clear to auscultation bilaterally Cardiovascular: Rate/Rhythm: regular rate and regular rhythm Heart Sounds: no murmur Extremities: + edema (1+ edema bilaterally) Gastrointestinal (Abdomen): Inspection/Auscultation: normal bowel sounds; abdomen not distended Percussion/Palpation: abdomen soft; abdomen nontender Musculoskeletal: No acute arthritis in any joint Neurologic: patellar DTR's 2+ bilat, sensation intact Psychiatric: A+Ox3, euthymic affect Lymphatic: no cervical or axillary lymphadenopathy Results & Data Results & Data ([facility]) Vital Signs (Past 12 Hours) Vital Signs Temp Pulse Pulse Pulse Pulse Pulse Resp 05/18/20 12:19 74 95 H 64 05/18/20 11:46 36.5 C 65 19 05/18/20 09:51 58 L 05/18/20 07:34 37.1 C 63 18 05/18/20 03:31 62 16 Resp Resp Resp BP Pulse Ox Pulse Ox Pulse Ox 05/18/20 12:19 20 20 18 94 93 05/18/20 11:46 142/80 H 99 05/18/20 09:51 05/18/20 07:34 156/63 H 100 05/18/20 03:31 96 Pulse Ox 05/18/20 12:19 97 05/18/20 11:46 05/18/20 09:51 05/18/20 07:34 05/18/20 03:31 Laboratory Results Current Inpatient Medications Acetaminophen (Acetaminophen 325 Mg Tab) 650 mg PO Q4H PRN PRN Reason: Pain or Fever Stop: 06/15/20 17:23 Acyclovir (Acyclovir 400 Mg Tab) 400 mg PO BID [facility] Stop: 06/15/20 20:59 Last Admin: 05/18/20 08:13 Dose: 400 mg Documented by: Al Hydrox/Mg Hydrox/Simethicone (Aluminum/Magnesium Susp 30 Ml Udc) 15 ml PO Q4H PRN PRN Reason: Dyspepsia Stop: 06/15/20 17:23 Allopurinol (Allopurinol 300 Mg Tab) 300 mg PO QAM [facility] Stop: 06/16/20 08:59 Last Admin: 05/18/20 08:13 Dose: 300 mg Documented by: Amlodipine Besylate (Amlodipine Besylate 5 Mg Tab) [facility] Stop: 06/16/20 08:59 Last Admin: 05/18/20 08:14 Dose: 2.5 mg Documented by: Aspirin (Aspirin 81 Mg Ectab) [facility] Stop: 06/16/20 08:59 Last Admin: 05/18/20 08:14 Dose: 81 mg Documented by: Atorvastatin Calcium (Atorvastatin 10 Mg Tab) 5 mg PO HS [facility] Stop: 06/15/20 20:59 Last Admin: 05/17/20 20:50 Dose: 5 mg Documented by: Calcium Carbonate (Calcium Carbonate 1250mg Tab) 1,250 mg PO BID [facility] Stop: 06/15/20 20:59 Last Admin: 05/18/20 08:14 Dose: 1,250 mg Documented by: Carvedilol (Carvedilol 3.125 Mg Tab) 3.125 mg PO BID [facility] Stop: 06/15/20 20:59 Last Admin: 05/18/20 08:13 Dose: 3.125 mg Documented by: Citalopram Hydrobromide (Citalopram 20 Mg Tab) 20 mg PO QAM [facility] Stop: 06/16/20 08:59 Last Admin: 05/18/20 08:13 Dose: 20 mg Documented by: Enoxaparin Sodium (Enoxaparin 150 Mg/Ml Syr) 129 mg SQ Q12H [facility] Stop: 06/17/20 01:59 Last Admin: 05/18/20 14:02 Dose: 129 mg Documented by: Hydralazine HCl (Hydralazine Tab 50 Mg Tab) 50 mg PO TID [facility] Stop: 06/15/20 20:59 Last Admin: 05/18/20 14:02 Dose: 50 mg Documented by: Levothyroxine Sodium (Levothyroxine Sodium 112 Mcg Tablet) 112 mcg PO DAILYBB [facility] Stop: 06/16/20 06:29 Last Admin: 05/18/20 05:56 Dose: 112 mcg Documented by: Magnesium Hydroxide (Magnesium Hydroxide Susp 30 Ml Udc) 30 ml PO Q12H PRN PRN Reason: Constipation Stop: 06/15/20 17:23 Magnesium Oxide (Magnesium Oxide 400 Mg Tab) 400 mg PO QPM [facility] Stop: 06/15/20 20:59 Last Admin: 05/17/20 20:59 Dose: 400 mg Documented by: Pantoprazole Sodium (Pantoprazole 40 Mg Tab) 40 mg PO [facility]; Protocol Stop: 06/15/20 20:59 Last Admin: 05/17/20 20:53 Dose: 40 mg Documented by: Polyethylene Glycol (Polyethylene (Miralax) 17 Gm Pack) 17 gm PO DAILY PRN PRN Reason: Constipation Stop: 06/15/20 17:23 Spironolactone (Spironolactone 25 Mg Tab) 25 mg PO QAM [facility] Stop: 06/16/20 08:59 Last Admin: 05/18/20 08:13 Dose: 25 mg Documented by: Terazosin HCl (Terazosin Hcl 5 Mg Cap) 5 mg PO [facility] Stop: 06/15/20 20:59 Last Admin: 05/17/20 20:48 Dose: 5 mg Documented by: Vitamin D (Cholecalciferol 1,000 Units 25 Mcg Tab) 2,000 units PO QPM [facility] Stop: 06/15/20 20:59 Last Admin: 05/17/20 20:55 Dose: 2,000 units Documented by: Medications Administered Current Inpatient Medications Acetaminophen (Acetaminophen 325 Mg Tab) 650 mg PO Q4H PRN PRN Reason: Pain or Fever Stop: 06/15/20 17:23 Acyclovir (Acyclovir 400 Mg Tab) 400 mg PO BID [facility] Stop: 06/15/20 20:59 Last Admin: 05/18/20 08:13 Dose: 400 mg Documented by: Al Hydrox/Mg Hydrox/Simethicone (Aluminum/Magnesium Susp 30 Ml Udc) 15 ml PO Q4H PRN PRN Reason: Dyspepsia Stop: 06/15/20 17:23 Allopurinol (Allopurinol 300 Mg Tab) 300 mg PO QAM [facility] Stop: 06/16/20 08:59 Last Admin: 05/18/20 08:13 Dose: 300 mg Documented by: Amlodipine Besylate (Amlodipine Besylate 5 Mg Tab) 2.5 mg PO QAM [facility] Stop: 06/16/20 08:59 Last Admin: 05/18/20 08:14 Dose: 2.5 mg Documented by: Aspirin (Aspirin 81 Mg Ectab) 81 mg PO QAM [facility] Stop: 06/16/20 08:59 Last Admin: 05/18/20 08:14 Dose: 81 mg Documented by: Atorvastatin Calcium (Atorvastatin 10 Mg Tab) 5 mg PO HS [facility] Stop: 06/15/20 20:59 Last Admin: 05/17/20 20:50 Dose: 5 mg Documented by: Calcium Carbonate (Calcium Carbonate 1250mg Tab) 1,250 mg PO BID [facility] Stop: 06/15/20 20:59 Last Admin: 05/18/20 08:14 Dose: 1,250 mg Documented by: Carvedilol (Carvedilol 3.125 Mg Tab) 3.125 mg PO BID [facility] Stop: 06/15/20 20:59 Last Admin: 05/18/20 08:13 Dose: 3.125 mg Documented by: Citalopram Hydrobromide (Citalopram 20 Mg Tab) 20 mg PO QAM [facility] Stop: 06/16/20 08:59 Last Admin: 05/18/20 08:13 Dose: 20 mg Documented by: Enoxaparin Sodium (Enoxaparin 150 Mg/Ml Syr) 129 mg SQ Q12H [facility] Stop: 06/17/20 01:59 Last Admin: 05/18/20 14:02 Dose: 129 mg Documented by: Hydralazine HCl (Hydralazine Tab 50 Mg Tab) 50 mg PO TID [facility] Stop: 06/15/20 20:59 Last Admin: 05/18/20 14:02 Dose: 50 mg Documented by: Levothyroxine Sodium (Levothyroxine Sodium 112 Mcg Tablet) 112 mcg PO DAILYBB [facility] Stop: 06/16/20 06:29 Last Admin: 05/18/20 05:56 Dose: 112 mcg Documented by: Magnesium Hydroxide (Magnesium Hydroxide Susp 30 Ml Udc) 30 ml PO Q12H PRN PRN Reason: Constipation Stop: 06/15/20 17:23 Magnesium Oxide (Magnesium Oxide 400 Mg Tab) 400 mg PO QPM [facility] Stop: 06/15/20 20:59 Last Admin: 05/17/20 20:59 Dose: 400 mg Documented by: Pantoprazole Sodium (Pantoprazole 40 Mg Tab) 40 mg PO HS [facility]; Protocol Stop: 06/15/20 20:59 Last Admin: 05/17/20 20:53 Dose: 40 mg Documented by: Polyethylene Glycol (Polyethylene (Miralax) 17 Gm Pack) 17 gm PO DAILY PRN PRN Reason: Constipation Stop: 06/15/20 17:23 Spironolactone (Spironolactone 25 Mg Tab) 25 mg PO QAM [facility] Stop: 06/16/20 08:59 Last Admin: 05/18/20 08:13 Dose: 25 mg Documented by: Terazosin HCl (Terazosin Hcl 5 Mg Cap) 5 mg PO HS [facility] Stop: 06/15/20 20:59 Last Admin: 05/17/20 20:48 Dose: 5 mg Documented by: Vitamin D (Cholecalciferol 1,000 Units 25 Mcg Tab) 2,000 units PO QPM [facility] Stop: 06/15/20 20:59 Last Admin: 05/17/20 20:55 Dose: 2,000 units Documented by: (1) Multiple myeloma Multiple myeloma remission status: unspecified Qualified Code(s): C90.00 - Multiple myeloma not having achieved remission
[2020-05-18] MEDS ORDERED: APIXABAN 5 MG TABLET PO SCH (23:00)
--- NOTE | 2020-05-19 07:46 | Discharge Summary ---
Date of Service May 19, 2020 Admission HPI Per Admitting Provider This is an 80-year-old male who has significant past medical history of multiple myeloma, monoclonal paraproteinemia, chronic diastolic CHF, HTN, HLD, NAHEED on CPAP, CKD stage III baseline creatinine 1.4, hypothyroidism, GERD, BPH, depression who presents to ED secondary to FARAH times several weeks. Of significance patient currently has multiple myeloma and has been undergoing treatment since November 2019. He follows cancer [facility]. He receives Velcade, Darzalex and Decadron weekly. He was seen and evaluated in cancer care clinic today and was referred to ED secondary to worsened dyspnea on exertion and hypoxia. Daughter is at bedside. Patient elicits over the last several weeks he has been experiencing dyspnea on exertion. It has significantly worsened over the past week. Even little activity including ADLs caused him to be dyspneic. He denies any shortness of breath at rest, cough or hemoptysis. He denies any prior history of PE. He denies fever, chills, sweats, lightheadedness, dizziness, syncope, chest pain, palpitations, nausea, vomiting, abdominal pain, hematemesis, melena, change in bowel or urinary habits. His daughter at bedside takes care of his medications. She states that he did not receive chemo today but did receive his oral Decadron. She has noticed over the last several weeks a decline in regards to breathing status. Last evening at rest she was checking his pulse oximetry which was within normal limits however when he would ambulate it would desaturate to the 80s. In ED patient made hemodynamically stable although he was hypertensive. CTA chest Revealed extensive right-sided pulmonary emboli with few small subsegmental left lower lobe pulmonary emboli. Straightening of the interventricular septum raises possibility of right heart strain. Moderate ca rdiomegaly. Of significance he did undergo echocardiogram 05/10 which revealed EF 35%, mild LVH, mild left atrial margin, grade 1 diastolic dysfunction, pulmonary pressure 39 mmHg. Outpatient lab work reviewed which reviewed H&H 11.9 and 35.3, platelet 129, BUN 23, creatinine 1.35. Admission Exam Per Admitting Provider Physical Exam: Constitutional: WD/WN, Elderly, M, Pale, vitals as above, NAD, sitting up in bed, pleasant, dyspneic with conversation Head: Normocephalic, Atraumatic Eyes: PERRL, conjunctivae normal, anicteric sclerae ENMT: external ear and nose normal, oropharynx normal Neck: trachea midline, no thyromegaly normal visual inspection Respiratory: normal respiratory effort, lungs clear to auscultation, no wheeze, rales, rhonchi. Normal insp/exp effort, no accessory muscle use Cardiovascular: RRR, no murmur, trace ankle edema bilaterally Vessels: no JVD or carotid bruit Chest: normal inspection of chest Abdomen: Protuberant abdomen, normal bowel sounds, soft, nontender, no hepatosplenomegaly Musculoskeletal: no cyanosis or clubbing, extremities motor strength 5/5 Skin: no rashes, warm and dry normal turgor Neurologic: PERRL, EOMI, accommodation nl, no face palsy, no dysarthria CN's II-XI intact bilaterally and moves all extremities Psychiatric: A+Ox3, euthymic affect Lymphatic: no cervical or axillary lymphadenopathy : deferred Principal Diagnosis Pulmonary embolism, right popliteal DVT, multiple myeloma Discharge Exam Constitutional well developed, well nourished and + obese; no acute distress Eyes PERRL, conjunctivae normal, anicteric sclerae ENMT external ear and nose normal, oropharynx normal Neck trachea midline, no thyromegaly Respiratory no respiratory distress Auscultation: lungs clear to auscultation bilaterally Cardiovascular Rate/Rhythm: regular rate and regular rhythm Heart Sounds: no murmur Extremities: + edema (1+ edema bilaterally) Gastrointestinal (Abdomen) Inspection/Auscultation: normal bowel sounds; abdomen not distended Percussion/Palpation: abdomen soft; abdomen nontender Neurologic patellar DTR's 2+ bilat, sensation intact Psychiatric A+Ox3, euthymic affect Lymphatic no cervical or axillary lymphadenopathy Discharge Data Allergies Allergy/AdvReac Type Severity Reaction Status Date / Time No Known Allergies Allergy Verified 05/16/20 13:13 Consultations 05/16/20 12:37 ED Decision to Admit Stat 05/16/20 17:24 Consult Case Management - Discharge Planning Routine Ordered Studies 05/16/20 11:45 CT angio chest PE protocol Stat 05/16/20 13:48 US venous doppler LE Stat Hospital Course (1) Pulmonary embolism on right: This is an 80-year-old male who has significant past medical history of multiple myeloma, monoclonal paraproteinemia, chronic diastolic CHF, HTN, HLD, NAHEED on CPAP, CKD stage III baseline creatinine 1.4, hypothyroidism, GERD, BPH, depression who presents to ED secondary to FARAH times several weeks. CTA chest Revealed extensive right-sided pulmonary emboli with few small subsegmental left lower lobe pulmonary emboli. He has been reasonably ambulatory at home and that DVT/pulmonary embolism is seems to be secondary to multiple myeloma Of significance he did undergo echocardiogram 05/10 which revealed EF 35%, mild LVH, mild left atrial margin, grade 1 diastolic dysfunction, pulmonary pressure 39 mmHg. Echo of the heart on 05/17/2020 showed: LV size is normal, LV systolic function is normal with EF 60 to 65%, RV systolic function is normal, both atria are normal. Has been getting Lovenox 125 mg subcu twice daily Discussed with oncologist and he will be put on Eliquis from today He passed 2 steps O2 saturation test He has been ambulating in the hallway without any symptoms Discharged home this afternoon (2) Multiple myeloma: [facility] Saw Shannon Yang PA-C in clinic today currently in remission, as of 05/09. Completes Vercade, Darzalex and decadron Now on single agent Darzalex to start 06/06 Spoke with Shannon regarding above and she agrees Cussed with Dr. Dodge the oncologist (3) Diastolic heart failure: euvolemic continue coreg takes lasix prn daily weights, strict I and O echo 05/10 EF 55%, grade 1 DD repeat echo to eval for right heart strain-as above (4) Hypertension: BP elevated in ED, likely in setting of situation/dyspnea continue coreg, hydralazine, amlodipine (5) Thrombocytopenia: Plt 129, baseline 180s monitor cbc (6) Anemia, unspecified: H/H stable 11.9/35.3 anemia of chronic disease in setting of CKD and malignancy (7) BPH (benign prostatic hyperplasia): continue terazosin (8) Prolonged QT interval: QTC 521ms monitor QTCc (9) Major depression: Continue celexa mood stable (10) Obstructive sleep apnea on CPAP: CPAP at HS (11) DVT prophylaxis: Therapeutic Lovenox Disposition: admit to PCU Follow up: PCP Dr. Stout upon discharge Discussed with the patient's daughter and explained side effect and benefit of taking Eliquis The patient and the daughter understood it completely Total Time Total Time Spent Total Time Spent (In Minutes): 35 minutes Total Time Includes: Examination of the Patient, Discharge Planning, Medication Reconciliation and Communication With Other Providers Discharge Plan Discharge Items Patient Disposition: Home - Self-Care Reason For Visit: R sided Pulmonary embolism Discharge Diagnosis: Pulmonary embolism, right popliteal DVT, multiple myeloma Condition on Discharge: Good Activity: Resume your previous activity Non-emergency contact: Primary Care Provider Call non-emergency contact if: you have any medication questions and your symptoms worsen Follow-up/Referrals: Musa Stout MD [Primary Care Provider] - 05/24/20 11:20 am (Date & Time 05/24/2020 11:20 AM Provider Musa Stout MD [facility] ) Diet: Heart Healthy and Low Sodium (2gm) Addtl Attending Provider Instructions: Do not take any aspirin or ulpa-syn-ihrvquu NSAID's Try to avoid any significant injury Keep appointment with your oncologist Pending Studies at Discharge: No Stand-Alone Forms: My [employer], Smoking Cessation Medications and DC Order Prescriptions: New Eliquis 5 mg tablet 5 mg PO BID Qty: 60 RF: 0 Eliquis 5 mg tablet 10 mg PO BID Qty: 14 RF: 0 Continued furosemide [Lasix] 20 mg tablet 20 mg PO UD PRN (Reason: Fluid Retention) RF: 0 amlodipine 5 mg tablet 2.5 mg PO QAM RF: 0 aspirin 81 mg tablet,delayed release (DR/EC) 81 mg PO QAM RF: 0 spironolactone 25 mg tablet 25 mg PO QAM RF: 0 terazosin 5 mg Capsule 5 mg PO HS RF: 0 atorvastatin 10 mg Tablet 5 mg PO HS RF: 0 omeprazole 40 mg Capsule,Delayed Release(Dr/Ec) 40 mg PO HS RF: 0 citalopram [Celexa] 20 mg Tablet 20 mg PO QAM RF: 0 allopurinol 300 mg Tablet 300 mg PO QAM RF: 0 hydralazine 50 mg Tablet 50 mg PO TID RF: 0 cholecalciferol (vitamin D3) [Vitamin D3] 2,000 unit Capsule 2,000 unit PO QPM RF: 0 magnesium oxide 400 mg magnesium Tablet 400 mg PO QPM RF: 0 carvedilol 3.125 mg Tablet 3.125 mg PO BID RF: 0 levothyroxine 112 mcg Tablet 112 mcg PO QAM RF: 0 calcium carbonate [Calcium 500] 500 mg calcium (1,250 mg) Tablet 500 mg PO BID RF: 0 dexamethasone 4 mg tablet 4 mg PO UD RF: 0 acyclovir 400 mg tablet 400 mg PO BID RF: 0 Discharge Orders: Discharge Order (Routine); Ordered 05/18/20 Ordered By: Erick Parker Admission Data Admit Date/Time: 05/16/20 13:05 Attending Provider: Erick Parker Admit Provider: June Jones Primary Care Provider: Musa Stout Other Providers: June Jones Other Interventions: Discharge Summary Assessment (RN) Last Done: 05/18/20 14:55
== END 2020-05-18 15:34 | disposition home or self-care (01) | DRG 176 ==
LOC: ED 11:06 → SUATTDRO 13:05 → 2E 13:05
DX: E03.9 Hypothyroidism, unspecified; Z79.890 Hormone replacement therapy; Z79.899 Other long term (current) drug therapy; G47.33 Obstructive sleep apnea (adult) (pediatric); I13.0 Hypertensive heart and chronic kidney disease with heart failure and stage 1 through stage 4 chronic kidney disease, or unspecified chronic kidney disease; I50.32 Chronic diastolic (congestive) heart failure; C90.00 Multiple myeloma not having achieved remission; E78.5 Hyperlipidemia, unspecified; K21.9 Gastro-esophageal reflux disease without esophagitis; F32.9 Major depressive disorder, single episode, unspecified; N40.0 Benign prostatic hyperplasia without lower urinary tract symptoms; I26.99 Other pulmonary embolism without acute cor pulmonale; Z79.52 Long term (current) use of systemic steroids; I51.89 Other ill-defined heart diseases; I44.7 Left bundle-branch block, unspecified; D63.1 Anemia in chronic kidney disease; D69.6 Thrombocytopenia, unspecified; Z79.82 Long term (current) use of aspirin; I82.431 Acute embolism and thrombosis of right popliteal vein; N18.30 Chronic kidney disease, stage 3 unspecified; Z20.828 Contact with and (suspected) exposure to other viral communicable diseases

== ENCOUNTER 2020-09-05 17:24 | Observation (INO) ==
[2020-09-05] MEDS ORDERED: methylPREDNISolone 125 MG/2 ML VIAL IV STA (17:45)
[2020-09-05] MEDS ORDERED: FAMOTIDINE 20MG/5ML IV PUSH IV STA (17:45)
--- NOTE | 2020-09-05 19:01 | Emergency Department Note ---
History of Present Illness General Chief complaint: Throat Pain Stated complaint: SINUS INFECTION, THROAT SWELLING Time Seen by Provider: 09/05/20 17:36 Source: patient, family (daughter at bedside), RN notes reviewed and old records reviewed Mode of arrival: ambulatory Limitations: no limitations History of Present Illness Provider complaint: Weakness, "throat closing" Onset (ago): hour(s) 1 Location: neck Severity: moderate Pain Consistency: + intermittent Maximum Pain Intensity: 8 Current Pain Intensity: 8 Relieved By: + none Exacerbated By: + none Associated symptoms: + denies other symptoms Treatments prior to arrival: other (amoxicillin and vancomycin) This is a 89-year-old male who presents emergency department complaining of difficulty swallowing. The patient recently had his Covid vaccine yesterday. His daughter brings him to the emergency department today over concerns that he is having difficulty swallowing and he feels that his throat is closing. He has not taken anything for this. He his daughter took him to see his primary care physician over the weekend who placed him on amoxicillin as well as vancomycin for C. difficile. Home Medications Medication Instructions Recorded Confirmed Type allopurinol 300 mg PO QAM 04/30/18 09/05/20 History atorvastatin 5 mg PO QAM 04/30/18 09/05/20 History cholecalciferol (vitamin D3) 2,000 unit PO QAM 04/30/18 09/05/20 History [Vitamin D3] citalopram [Celexa] 20 mg PO QAM 04/30/18 09/05/20 History hydralazine 50 mg PO TID 04/30/18 09/05/20 History magnesium oxide 400 mg PO .HOLD 04/30/18 09/05/20 History omeprazole 40 mg PO HS 04/30/18 09/05/20 History terazosin 5 mg PO HS 04/30/18 09/05/20 History carvedilol 3.125 mg PO BID 09/18/18 09/05/20 History levothyroxine 112 mcg PO QAM 05/22/19 09/05/20 History furosemide 20 mg tablet 20 mg PO DIRECTED PRN tab 08/16/19 09/05/20 History amlodipine 5 mg tablet 2.5 mg PO QAM 03/10/20 09/05/20 History aspirin 81 mg tablet,delayed 81 mg PO QAM 03/10/20 09/05/20 History release spironolactone 25 mg tablet 25 mg PO QAM 03/10/20 09/05/20 History acyclovir 400 mg PO BID 05/16/20 09/05/20 History calcium carbonate [Calcium 500] 500 mg PO BID 05/16/20 09/05/20 History Eliquis 5 mg PO BID 09/05/20 09/05/20 History vancomycin See Rx Instructions .ROUTE .COMPLEX 09/05/20 09/05/20 History cefdinir 300 mg PO Q12H 10 Days #20 cap 09/06/20 Rx prednisone 10 mg PO DAILY #21 tab 09/06/20 Rx Allergies Allergy/AdvReac Type Severity Reaction Status Date / Time No Known Allergies Allergy Verified 09/05/20 22:09 Past Med/Surg History Medical History (Updated 09/07/20 @ 20:22 by Martinez Gillette MD) Acute respiratory failure with hypoxia BPH without obstruction/lower urinary tract symptoms Carpal tunnel syndrome CKD (chronic kidney disease), stage III Diastolic heart failure GERD (gastroesophageal reflux disease) Gout History of cardiac arrhythmia History of paroxysmal supraventricular tachycardia Hyperlipidemia Hypertension Insomnia LBBB (left bundle branch block) Monoclonal paraproteinemia Morbid (severe) obesity due to excess calories 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 SVT in setting of hypokalemia noted during that admission. Admitted again to [facility] 07/28-07/30/18 for pneumonia with hypoxia. No arrhythmia noted. Lungs CTA B/L on exam at PAT 09/25. Prolonged QT interval Restless leg syndrome Sepsis Surgical History H/O cataract removal with insertion of prosthetic lens H/O knee surgery H/O sinus surgery History of appendectomy History of bilateral knee arthroplasty History of cataract surgery RT/LEFT History of colonoscopy History of esophagogastroduodenoscopy (EGD) History of hip surgery History of tooth extraction History of total right hip arthroplasty Hx of cholecystectomy Status post total hip replacement, left Family History Father Heart disease Mother Diabetes Hypertension Brother Family hx of colon cancer Social History Smoking Status: Never smoker Second Hand Exposure: No; Hx Alcohol Use: No Hx Substance Use: No Preferred Language: Belgian Communication Ability: Effective Management Psychologist Required: No Beliefs That Will Affect Care: None marital status: Current Living Situation: Spouse How many Children do You have: 1 Feels Safe at Home: Yes Safety Concerns: Feels Safe At This Time Assistive Devices: Cane, CPAP, Denture - Upper and Glasses Review of Systems A total of 10 systems reviewed and were otherwise negative Physical Exam Vital Signs Vital Signs - 24 hr 09/05/20 17:26 09/05/20 18:14 09/05/20 18:43 Temperature 36.5 C Temperature Source Temporal Artery Scan Pulse Rate 64 70 Pulse Rate from SpO2 Sensor 46 L Respiratory Rate 18 30 H Blood Pressure 167/85 H Blood Pressure Mean 112 Pulse Oximetry 98 97 Oxygen Delivery Method Room Air Room Air Sepsis Recent Fever Within 48 Hours No Sepsis New/Unexplained Change in Mental Status No Sepsis Action Taken by Nursing No Action Required 09/05/20 18:50 09/05/20 19:00 Temperature Temperature Source Pulse Rate 70 65 Pulse Rate from SpO2 Sensor 39 L 65 Respiratory Rate 26 H 21 Blood Pressure Blood Pressure Mean Pulse Oximetry 96 95 Oxygen Delivery Method Room Air Room Air Sepsis Recent Fever Within 48 Hours Sepsis New/Unexplained Change in Mental Status Sepsis Action Taken by Nursing VITAL SIGNS - Vital signs and nursing notes were reviewed. GENERAL - 80-year-old male appearing stated age who is in no acute distress. Communicates well with provider and answers questions appropriately. SKIN - Without rashes. HEAD - NC/AT. EYES - PERRL with EOMI bilaterally. Sclera anicteric. Palpebral conjunctiva pink and moist with no injection noted. EARS - No deformities of external structures noted on gross examination bilate rally. NOSE - Midline and without cyanosis. No epistaxis or purulent drainage noted. Septum midline without deviation or septal hematoma noted. MOUTH/OROPHARYNX - Without perioral cyanosis. Buccal mucosa pink and moist and without leukoplakia. Tongue midline with equal elevation of palate bilaterally. No tonsillar hypertrophy, erythema, or exudates noted. NECK - Neck with FROM. Supple to palpation. lymphadenopathy noted. No nuchal rigidity. No stridor on exam. LUNGS - Chest wall symmetric without accessory muscle use, intercostals retractions, or central cyanosis. Normal vesicular breath sounds CTA B/L. No wheezes, rales, or rhonchi appreciated. CARDIAC - RRR with S1/S2. No murmur, rubs, or gallops appreciated. ABDOMEN - Abdominal contour without pulsations or visible masses. BS normoactive all four quadrants. No tenderness, palpable masses, hepatosplenomegaly, or ascites noted. EXTREMITIES - No clubbing or peripheral cyanosis. No pretibial edema present. +3/5 radial, posterior tibial, and dorsalis pedis pulses palpated throughout. +5/5 strength noted in UE/LE bilaterally. NEUROLOGIC - Cranial nerves II through XII grossly intact. Sensory intact to light touch throughout. Patellar reflexes +2/4. PSYCH - A&Ox3 and cooperates fully with examiner. Pt is very pleasant and interacts well with examiner. Course Administered Medications Discontinued Medications Acetaminophen (Acetaminophen 500 Mg Tab) 1,000 mg PO NOW [facility] Stop: 09/05/20 19:12 Last Admin: 09/05/20 20:02 Dose: Not Given Documented by: [id number] Acyclovir (Acyclovir 400 Mg Tab) 400 mg PO BID [facility] Stop: 10/06/20 08:59 Last Admin: 09/06/20 08:43 Dose: 400 mg Documented by: [id number] Hydrox/Mg Hydrox/Simethicone (Gi Cocktail Ed Use) 1 dose PO ONE ONE Stop: 09/05/20 20:27 Last Admin: 09/05/20 21:22 Dose: Not Given Documented by: [id number] Allopurinol ([facility]ol 300 Mg Tab) [facility] Stop: 10/06/20 08:59 Last Admin: 09/06/20 08:44 Dose: 300 mg Documented by: [id number] Amlodipine Besylate (Amlodipine Besylate 5 Mg Tab) [facility] [place] Stop: 10/06/20 08:59 Last Admin: 09/06/20 08:44 Dose: 5 mg Documented by: [id number] Aspirin (Aspirin 81 Mg Ectab) [facility] [place] Stop: 10/06/20 08:59 Last Admin: 09/06/20 08:44 Dose: 81 mg Documented by: [id number] Atorvastatin Calcium (Atorvastatin 10 Mg Tab) [facility] [place] Stop: 10/06/20 08:59 Last Admin: 09/06/20 08:44 Dose: 5 mg Documented by: [id number] Carvedilol (Carvedilol 3.125 Mg Tab) 3.125 mg PO NOW ST[facility] Stop: 09/05/20 23:04 Last Admin: 09/05/20 23:22 Dose: 3.125 mg Documented by: [id number] Carvedilol (Carvedilol 3.125 Mg Tab) 3.125 mg PO BID [facility] Stop: 10/06/20 08:59 Last Admin: 09/06/20 08:45 Dose: 3.125 mg Documented by: [id number] Citalopram Hydrobromide (Citalopram 20 Mg Tab) 20 mg PO QAM [facility] Stop: 10/06/20 08:59 Last Admin: 09/06/20 08:45 Dose: 20 mg Documented by: [id number] Dexamethasone (Dexamethasone Sod Inj 10 Mg/Ml Vial) 10 mg IV NOW ONE Stop: 09/05/20 20:59 Last Admin: 09/05/20 21:29 Dose: 10 mg Documented by: [id number] Famotidine (Famotidine 20mg/5ml Iv Push) 20 mg IV ONE STA Stop: 09/05/20 17:46 Last Admin: 09/05/20 19:12 Dose: 20 mg Documented by: [id number] Guaifenesin (Guaifenesin 600 Mg Tabcr) 1,200 mg PO NOW STA Stop: 09/05/20 21:09 Last Admin: 09/05/20 21:22 Dose: Not Given Documented by: [id number] Hydralazine HCl (Hydralazine Tab 50 Mg Tab) 50 mg PO TID [facility] Stop: 10/06/20 02:11 Last Admin: 09/06/20 08:43 Dose: 50 mg Documented by: [id number] Admin: 09/06/20 03:27 Dose: 50 mg Documented by: [id number] Piperacillin Sod/Tazobactam Sod (Zosyn) 4.5 gm in 120 mls @ 240 mls/hr IV NOW ONE Stop: 09/05/20 20:14 Last Infusion: 09/05/20 21:12 Dose: 0 mls/hr Documented by: [id number] Admin: 09/05/20 19:56 Dose: 240 mls/hr Documented by: [id number] Daptomycin 550 mg/ Syringe 11 mls @ 5.5 mls/min IV NOW ONE; Protocol Stop: 09/05/20 21:01 Last Admin: 09/05/20 21:29 Dose: 5.5 mls/min Documented by: [id number] Heparin Sodium/Dextrose (Heparin Sodium/Dextrose) 25,000 units in 500 mls @ 24 mls/hr IV .[id number] [facility]; Protocol Stop: 10/06/20 02:11 Last Titration: 09/06/20 11:13 Dose: 1,200 units/hr, 24 mls/hr Documented by: [id number] Cosigned by: [id number] Titration: 09/06/20 06:55 Dose: 1,000 units/hr, 20 mls/hr Documented by: [id number] Cosigned by: [id number] Admin: 09/06/20 03:27 Dose: 1,000 units/hr, 20 mls/hr Documented by: [id number] Cosigned by: [id number] Methylprednisolone 40 mg/ (Syringe) 0.64 mls @ 1.5 mls/min IV BID [facility] Stop: 10/06/20 08:59 Last Admin: 09/06/20 08:43 Dose: 1.5 mls/min Documented by: [id number] Lactated Ringer's (Lr) 1,000 mls @ 50 mls/hr IV .Q20H ONE Stop: 09/06/20 22:11 Last Admin: 09/06/20 03:27 Dose: 50 mls/hr Documented by: [id number] Ampicillin Sodium/Sulbactam Sodium 3,000 mg/ Sodium Chloride 108 mls @ 216 mls/hr IV Q6H [facility] Stop: 09/16/20 03:59 Last Infusion: 09/06/20 10:38 Dose: 0 mls/hr Documented by: [id number] Admin: 09/06/20 10:08 Dose: 216 mls/hr Documented by: [id number] Infusion: 09/06/20 04:25 Dose: 0 mls/hr Documented by: [id number] Admin: 09/06/20 03:56 Dose: 216 mls/hr Documented by: [id number] Heparin Sodium (Porcine) 4,000 (units/ Syringe) 4 mls @ 10 mls/min IV NOW ONE Stop: 09/06/20 11:46 Last Admin: 09/06/20 12:24 Dose: Not Given Documented by: [id number] Insulin Aspart (Insulin Aspart 100 Units/Ml 3 Ml Pen) 0 units SC ACHS [facility] Stop: 10/06/20 05:34 Last Admin: 09/06/20 12:31 Dose: Not Given Documented by: [id number] Admin: 09/06/20 05:52 Dose: Not Given Documented by: [id number] Insulin Glargine (Insulin Glargine Solostar 100 Units/Ml 3 Ml Pen) 5 units SC DAILY [facility] Stop: 10/06/20 08:59 Last Admin: 09/06/20 10:08 Dose: 5 units Documented by: [id number] Cosigned by: [id number] Levothyroxine Sodium (Levothyroxine Sodium 112 Mcg Tablet) 112 mcg PO DAILYBB [facility] Stop: 10/06/20 06:29 Last Admin: 09/06/20 04:28 Dose: 112 mcg Documented by: [id number] Methylprednisolone (Methylprednisolone 125 Mg/2 Ml Vial) 125 mg IV NOW STA Stop: 09/05/20 17:46 Last Admin: 09/05/20 19:12 Dose: 125 mg Documented by: [id number] Miscellaneous Information (Daptomycin Consult Active) 1 ea N/A UD PRN PRN Reason: Consult Stop: 10/05/20 20:59 Last Admin: 09/05/20 21:29 Dose: 1 ea Documented by: [id number] Raspberry (Raspberry Syrup 5 Ml Udp) 5 ml PO QID [facility]; Taper Stop: 10/14/20 08:59 Last Admin: 09/06/20 12:30 Dose: 5 ml Documented by: [id number] Admin: 09/06/20 08:46 Dose: 5 ml Documented by: [id number] Sodium Chloride (Sodium Chloride 0.65% Na Soln 45 Ml (Galax)) 2 sprays NA NOW ONE Stop: 09/05/20 20:59 Last Admin: 09/05/20 21:29 Dose: 2 sprays Documented by: [id number] Terazosin HCl (Terazosin Hcl 5 Mg Cap) 5 mg PO HS [facility] Stop: 10/06/20 02:11 Last Admin: 09/06/20 03:27 Dose: 5 mg Documented by: [id number] Vancomycin HCl (Vancomycin Hcl 125 Mg/2.5ml Soln) 125 mg PO QID [facility]; Taper Stop: 10/14/20 08:59 Last Admin: 09/06/20 12:30 Dose: 125 mg Documented by: [id number] Admin: 09/06/20 08:46 Dose: 125 mg Documented by: [id number] Medical Decision Making Differential Diagnosis Infection, dehydration, metabolic abnormality, hypo/hyperglycemia, electrolyte disturbance, anemia, hypoxia, cardiac sources, intracerebral event, toxicologic, neurologic, as well as other pathologies. Medical Records Attestation: I reviewed the patient's medical records. Home Medications Current Medication List: was personally reviewed by me Laboratory Data Attestation: I reviewed the patient's lab results. Result diagrams: 09/06/20 06:01 09/05/20 18:45 Lab Results 09/05/20 09/05/20 09/05/20 Range/Units 18:45 18:45 18:45 WBC 7.05 (4.8-10.8) K/uL RBC 3.93 L (4.7-6.1) M/uL Hgb 12.6 L (14.0-18.0) g/dL POC Hgb (14.0-18.0) g/dl Hct 36.7 L (42-52) % POC Hct (42-52) % MCV 93.4 (80-100) fL MCH 32.1 (25-34) pg MCHC 34.3 (32-36) g/dL RDW Std Deviation 49.1 H (36.4-46.3) fL RDW Coeff of Nunu 14.3 (11.5-14.5) % Plt Count 198 (130-400) K/uL MPV 11.4 H (7.4-10.4) fL Immature Gran % (Auto) 0.1 % Neut % (Auto) 72.6 % Lymph % (Auto) 8.9 % Kent % (Auto) 13.8 % Eos % (Auto) 4.0 % Baso % (Auto) 0.6 % Neut # (Auto) 5.12 (1.4-6.5) K/uL Lymph # (Auto) 0.63 L (1.2-3.4) K/uL Kent # (Auto) 0.97 H (0.11-0.59) K/uL Eos # (Auto) 0.28 (0-0.5) K/uL Baso # (Auto) 0.04 (0-0.2) K/uL Immature Gran # (Auto) 0.01 (0.00-0.02) K/uL POC Sodium (135-144) mmol/L Sodium 141 (136-145) mmol/L POC Potassium (3.3-5.0) mmol/L Potassium 4.1 (3.5-5.1) mmol/L POC Chloride (101-112) mmol/L Chloride 109 H (98-107) mmol/L Carbon Dioxide 25 (21-32) mmol/L POC Total CO2 (24-31) mmol/L Anion Gap 7.0 (3-11) POC Anion Gap (16-25) mmol/L POC BUN (7-18) mg/dl BUN 18 (7-18) mg/dl Creatinine 1.30 (0.6-1.4) mg/dl POC Creatinine (0.6-1.3) mg/dl Est Cr Clr Drug Dosing 58.1 ml/min Est GFR ( Amer) 59.7 Est GFR (Non-Af Amer) 51.5 BUN/Creatinine Ratio 13.6 (10-20) Glucose 94 (70-99) mg/dl POC Glucose (other) (70-99) mg/dl Calcium 8.0 L (8.5-10.1) mg/dl POC Ioniz Calcium Frances (1.12-1.32) mmol/l Magnesium 2.1 (1.8-2.4) mg/dl Total Bilirubin 0.5 (0.2-1) mg/dl AST 15 (15-37) U/L ALT 22 (12-78) U/L Alkaline Phosphatase 65 (45-117) U/L Troponin I < 0.015 (0-0.045) ng/ml Total Protein 6.1 L (6.4-8.2) gm/dl Albumin 3.3 L (3.4-5.0) gm/dl Globulin 2.8 (2.5-4.0) gm/dl Albumin/Globulin Ratio 1.2 (0.9-2) Urine Color Urine Appearance (Clear) Urine pH (4.5-7.5) Ur Specific [place] (1.000-1.030) Urine Protein (Negative) Urine Glucose (UA) (Negative) Urine Ketones (Negative) Urine Blood (Negative) Urine Nitrite (Negative) Urine Bilirubin (Negative) Urine Urobilinogen (Negative) Ur Leukocyte Esterase (Negative) COVID-19 Eval Order SARS-CoV-2, RNA, NAAT (NEGATIVE) 09/05/20 09/05/20 09/05/20 Range/Units 18:55 19:59 19:59 WBC (4.8-10.8) K/uL RBC (4.7-6.1) M/uL Hgb (14.0-18.0) g/dL POC Hgb 11.9 L (14.0-18.0) g/dl Hct (42-52) % POC Hct 35 L (42-52) % MCV (80-100) fL MCH (25-34) pg MCHC (32-36) g/dL RDW Std Deviation (36.4-46.3) fL RDW Coeff of Nunu (11.5-14.5) % Plt Count (130-400) K/uL MPV (7.4-10.4) fL Immature Gran % (Auto) % Neut % (Auto) % Lymph % (Auto) % Kent % (Auto) % Eos % (Auto) % Baso % (Auto) % Neut # (Auto) (1.4-6.5) K/uL Lymph # (Auto) (1.2-3.4) K/uL Kent # (Auto) (0.11-0.59) K/uL Eos # (Auto) (0-0.5) K/uL Baso # (Auto) (0-0.2) K/uL Immature Gran # (Auto) (0.00-0.02) K/uL POC Sodium 140 (135-144) mmol/L Sodium (136-145) mmol/L POC Potassium 4.0 (3.3-5.0) mmol/L Potassium (3.5-5.1) mmol/L POC Chloride 103 (101-112) mmol/L Chloride (98-107) mmol/L Carbon Dioxide (21-32) mmol/L POC Total CO2 27 (24-31) mmol/L Anion Gap (3-11) POC Anion Gap 15.0 L (16-25) mmol/L POC BUN 18 (7-18) mg/dl BUN (7-18) mg/dl Creatinine (0.6-1.4) mg/dl POC Creatinine 1.3 (0.6-1.3) mg/dl Est Cr Clr Drug Dosing ml/min Est GFR ( Amer) Est GFR (Non-Af Amer) BUN/Creatinine Ratio (10-20) Glucose (70-99) mg/dl POC Glucose (other) 95 (70-99) mg/dl Calcium (8.5-10.1) mg/dl POC Ioniz Calcium Frances 1.09 L (1.12-1.32) mmol/l Magnesium (1.8-2.4) mg/dl Total Bilirubin (0.2-1) mg/dl AST (15-37) U/L ALT (12-78) U/L Alkaline Phosphatase (45-117) U/L Troponin I (0-0.045) ng/ml Total Protein (6.4-8.2) gm/dl Albumin (3.4-5.0) gm/dl Globulin (2.5-4.0) gm/dl Albumin/Globulin Ratio (0.9-2) Urine Color Urine Appearance (Clear) Urine pH (4.5-7.5) Ur Specific [place] (1.000-1.030) Urine Protein (Negative) Urine Glucose (UA) (Negative) Urine Ketones (Negative) Urine Blood (Negative) Urine Nitrite (Negative) Urine Bilirubin (Negative) Urine Urobilinogen (Negative) Ur Leukocyte Esterase (Negative) COVID-19 Eval Order Covid19 IDNow [facility] SARS-CoV-2, RNA, NAAT NEGATIVE (NEGATIVE) 09/05/20 Range/Units 22:30 WBC (4.8-10.8) K/uL RBC (4.7-6.1) M/uL Hgb (14.0-18.0) g/dL POC Hgb (14.0-18.0) g/dl Hct (42-52) % POC Hct (42-52) % MCV (80-100) fL MCH (25-34) pg MCHC (32-36) g/dL RDW Std Deviation (36.4-46.3) fL RDW Coeff of Nunu (11.5-14.5) % Plt Count (130-400) K/uL MPV (7.4-10.4) fL Immature Gran % (Auto) % Neut % (Auto) % Lymph % (Auto) % Kent % (Auto) % Eos % (Auto) % Baso % (Auto) % Neut # (Auto) (1.4-6.5) K/uL Lymph # (Auto) (1.2-3.4) K/uL [place] # (Auto) (0.11-0.59) K/uL Eos # (Auto) (0-0.5) K/uL Baso # (Auto) (0-0.2) K/uL Immature Gran # (Auto) (0.00-0.02) K/uL POC Sodium (135-144) mmol/L Sodium (136-145) mmol/L POC Potassium (3.3-5.0) mmol/L Potassium (3.5-5.1) mmol/L POC Chloride (101-112) mmol/L Chloride (98-107) mmol/L Carbon Dioxide (21-32) mmol/L POC Total CO2 (24-31) mmol/L Anion Gap (3-11) POC Anion Gap (16-25) mmol/L POC BUN (7-18) mg/dl BUN (7-18) mg/dl Creatinine (0.6-1.4) mg/dl POC Creatinine (0.6-1.3) mg/dl Est Cr Clr Drug Dosing ml/min Est GFR ( Amer) Est GFR (Non-Af Amer) BUN/Creatinine Ratio (10-20) Glucose (70-99) mg/dl POC Glucose (other) (70-99) mg/dl Calcium (8.5-10.1) mg/dl POC Ioniz Calcium Frances (1.12-1.32) mmol/l Magnesium (1.8-2.4) mg/dl Total Bilirubin (0.2-1) mg/dl AST (15-37) U/L ALT (12-78) U/L Alkaline Phosphatase (45-117) U/L Troponin I (0-0.045) ng/ml Total Protein (6.4-8.2) gm/dl Albumin (3.4-5.0) gm/dl Globulin (2.5-4.0) gm/dl Albumin/Globulin Ratio (0.9-2) Urine Color Yellow Urine Appearance Clear (Clear) Urine pH 5.0 (4.5-7.5) Ur Specific [place] > 1.045 H (1.000-1.030) Urine Protein Negative (Negative) Urine Glucose (UA) Negative (Negative) Urine Ketones Negative (Negative) Urine Blood Negative (Negative) Urine Nitrite Negative (Negative) Urine Bilirubin Negative (Negative) Urine Urobilinogen Negative (Negative) Ur Leukocyte Esterase Negative (Negative) COVID-19 Eval Order SARS-CoV-2, RNA, NAAT (NEGATIVE) Imaging Data Radiologist's Impression: [place], [place] [phone] CT Scan Report Patient: LLOYD CURTIS Admit Date: 09/05/20 MR#: [id number] Address1: [address] Acct ID:[id number] Address2: Date: [address] [facility] [facility] Zip: [place] [address] Age: 80 Location: ED Sex: M Room/Bed: Att Phy: Diagnosis: SINUS INFECTION, THROAT SWELLING Rae Phy: Musa Stout MD Service Date: 09/05/20 Fam Phy: Interpreting Phy: Luis M Mortensen Admit Phy: Ordering Phy: Martinez Gillette MD cc: ~ CT head/brain wo con CLINICAL HISTORY: 80 years-old Male with Stroke Like Symptoms. Acute strokelike symptoms TECHNIQUE: Multiple axial CT images of the head were obtained without contrast. A dose lowering technique was utilized adhering to the principles of ALARA. COMPARISON: CTA head and neck of same day, PET CT 11/03/2019 FINDINGS: No acute intracranial hemorrhage, midline shift, intracranial mass, hydrocephalus, territorial ischemia or abnormal extra-axial collection. Age- related involutional changes with mild white matter hypodensities suggestive of chronic microvascular ischemic disease. Cerebral vascular calcifications. 9 mm hypodense focus within the periventricular left parietal lobe on image 18. Senescent calcifications of the basal ganglia. The calvarium is intact. Mastoid air cells are clear. Prior right-sided maxillary antrostomy with moderate to severe mucoperiosteal thickening. Resection of the right middle nasal turbinate. Soft tissues are unremarkable. Prior bilateral lens replacement. IMPRESSION: 1. No acute intracranial abnormality. 2. Age-related involutional changes with chronic microvascular ischemic disease. 3. Subcentimeter hypodense focus of the periventricular left parietal lobe is suggestive of a chronic lacunar infarct. ACT 112: Negative or not required by law. The above report was generated using voice recognition software. It may contain grammatical, syntax or spelling errors. Electronically signed by: Dyllan Mortensen M.D. 09/05/2020 8:27 PM Dictated: 09/05/202022 Transcribed: 09/05/202022 [place], [place] [phone] CT Scan Report Patient: LLOYD CURTIS Admit Date: 09/05/20 MR#: [id number] Address1: [address] Acct ID:[id number] Address2: Date: [address] [facility] Zip: [place] [address] Age: 80 Location: ED Sex: M Room/Bed: Att Phy: Diagnosis: SINUS INFECTION, THROAT SWELLING Rae Phy: Musa Stout MD Service Date: 09/05/20 Fam Phy: Interpreting Phy: Luis M Mortensen Admit Phy: Ordering Phy: Martinez Gillette MD cc: ~ CT angio neck with con, CT angio head w con CLINICAL HISTORY: 80 years-old Male with Pt c/o inability to swallow. Acute strokelike symptoms COMPARISON STUDY: Head CT of same day, PET CT 11/03/2019 TECHNIQUE: Following the IV administration of 117 mL of Optiray 320, CT angiogram of the head and neck was performed from the aortic arch to the skull apex. Images are reviewed in the axial, sagittal, and coronal planes. 3-D MIPS images are created and assessed. IV contrast was administered without complication. All measurements were calculated based on NASCET criteria. A dose lowering technique was utilized adhering to the principles of ALARA. CT DOSE: 2295.48 mGy.cm FINDINGS: Calcified plaque of the thoracic aortic arch. Patency of the innominate and imaged subclavian arteries. Common carotid arteries are patent bilaterally. Mild to moderate mixed plaque of the carotid bulbs and proximal cervical segments of the internal carotid arteries results in less than 50% stenosis bilaterally. There is tortuosity of the distal cervical segments of the internal carotid arteries. Calcified plaque of the cavernous and supraclinoid segments. No aneurysm, dissection, high-grade stenosis or proximal branch occlusion. Hypoplastic right A1 segment is likely developmental. Codominant and patent vertebral arteries. The basilar and posterior cerebral arteries are patent. There is moderate narrowing within the proximal P1 segment of the left posterior cerebral artery with additional moderate narrowing noted within the P2 segment. No aneurysm, dissection, high-grade stenosis or proximal branch occlusion. The cerebral venous sinuses are patent. There is no abnormal intracranial enhancement. Defect of the right occipital bone with chronic fluid collection measuring 4.9 x 2.0 cm is unchanged. No pneumothorax. Unremarkable soft tissues. Chronic postoperative changes of the paranasal sinuses with secretions noted within the nasopharynx and airway. There is moderate circumferential soft tissue prominence with mucosal hyperemia involving the oral pharynx which results in at least moderate narrowing of the airway. There is also prominence with soft tissue thickening of the uvula and soft palate. The epiglottis is unremarkable. Mild medial deviation of the right true vocal fold. Subglottic airway is unremarkable. No pneumothorax. IMPRESSION: 1. Atherosclerotic vascular disease with areas of moderate likely chronic intrac ranial narrowing as described above. 2. Atherosclerotic plaque of the carotid bulbs resulting in less than 50% stenosis bilaterally. 3. No aneurysm, dissection, high-grade stenosis or proximal branch occlusion. 4. Moderate circumferential soft tissue prominence of the oral pharynx with mucosal hyperemia resulting in at least moderate narrowing of the airway. An infectious or inflammatory process is favored. Correlation with direct visualization is recommended to exclude underlying lesion. 5. Additional findings as above. ACT 112: Negative or not required by law. The above report was generated using voice recognition software. It may contain grammatical, syntax or spelling errors. Electronically signed by: Dyllan Mortensen M.D. 09/05/2020 8:43 PM Dictated: 09/05/202028 Transcribed: 09/05/202028 [place], [place] [phone] XRay Report Patient: LLOYD CURTIS Admit Date: 09/05/20 MR#: [id number] Address1: [address] Acct ID:[id number] Address2: Date: [address] [facility] Zip: [place] [address] Age: 80 Location: ED Sex: M Room/Bed: Att Phy: Diagnosis: SINUS INFECTION, THROAT SWELLING Rae Phy: Musa Stout MD Service Date: 09/05/20 [facility] Phy: Interpreting Phy: Luis M Mortensen Admit Phy: Ordering Phy: Martinez Gillette MD cc: ~ XR chest 1V portable HISTORY: 80 years-old Male weakness acute weakness COMPARISON: Chest radiograph 09/24/2019, PET CT 11/03/2019 TECHNIQUE: Portable AP view of the chest FINDINGS: Cardiac silhouette is moderately enlarged, unchanged. Chronic right hemidiaphragmatic elevation. Mild bibasilar opacities. Trace pleural effusions. No pneumothorax or overt pulmonary edema. Degenerative changes of the shoulders and spine. IMPRESSION: 1. Mild bibasilar opacities suggest atelectasis versus pneumonitis. 2. Suggested trace pleural effusions. ACT 112: Negative or not required by law. The above report was generated using voice recognition software. It may contain grammatical, syntax or spelling errors. Electronically signed by: Dyllan Mortensen M.D. 09/05/2020 7:00 PM Dictated: 09/05/201858 Transcribed: 09/05/201858 ECG Data Attestation: I personally reviewed and interpreted this ECG as follows: Rate (beats per minute): 65 Rhythm: + sinus rhythm ECG Intervals/blocks: + First degree AV block and + Left bundle branch block ECG [place]: + Left axis deviation ECG ST segments: no ST depression and no ST elevation ECG Findings: + PACs and + PVCs Comparison ECG Date: from (05/18/2020) Change: the following changes noted (PVCs noted) MDM Narrative This is an 80-year-old male who presents emergency department over concerns he feels like he has a large amount of mucus in the back of his throat. The patient was just placed on amoxicillin as well as oral vancomycin for sinus infection as well as C. difficile infection. He reports this all started a pproximately 10 days ago however became worse today. The patient reports that it feels like he has a large amount of mucus that he cannot swallow. He has no stridor on physical examination. He does not have an elevation his white blood cell count however is being treated for multiple myeloma with chemotherapy. Using shared medical decision making with the patient and family decision was made to send the patient for CAT scan of the head as well as neck. CAT scan of the head is concerning for a stroke that is happened sometime since 2018. The CAT scan of the neck does not show any evidence of abscess. I did review the CAT scan of the neck with the ear nose and throat surgeon on-call. I reviewed my physical examination with the surgeon. We are going to try and place the patient on IV antibiotics as well as IV Decadron. I am also going to place the patient on Mucinex along with humidified oxygen and Galax spray. Were going to place the patient in the hospital for observation. Patient and family are in agreement with treatment plan. Patient was seen and evaluated as above in room C5. Review was performed of nursing notes and vital signs. I did review pertinent previous visits and patient history. After obtaining a thorough history and physical examination the above work up was performed. An order was placed for continuous cardiac monitoring. The monitor shows a rate of 65 with Normal SInus rhythm. The patient was evaluated during a period of high volume and high acuity while the hospital was at overcapacity during the global COVID-19 pandemic, and that diagnosis was suspected/considered upon their initial presentation. Their evaluation, treatment and testing was consistent with current guidelines for patients who present with complaints or symptoms that may be related to COVID- 19. Impression & Plan Chronic sinusitis, Multiple myeloma Discharge Plan Visit Data Chief Complaint: Throat Pain Stated Complaint: SINUS INFECTION, THROAT SWELLING ED Provider: Martinez Gillette Discharge Problem: Chronic sinusitis, Multiple myeloma Patient Disposition: Admitted As Inpatient Condition: Good Discharge Instructions Interventions: ED Discharge Assessment Last Done: 09/06/20 01:29 Discharge Problem: Chronic sinusitis Qualifiers: Sinusitis location: unspecified location Qualified Code(s): J32.9 - Chronic sinusitis, unspecified Multiple myeloma Qualifiers: Multiple myeloma remission status: unspecified Qualified Code(s): C90.00 - Multiple myeloma not having achieved remission
[2020-09-05 19:02] LABS: Basophils # (auto) 0.04 K/uL (0-0.2); Basophils % (auto) 0.6 %; Eosinophils # (auto) 0.28 K/uL (0-0.5); Hematocrit (blood only) 36.7 % (42-52); Hemoglobin 12.6 g/dL (14.0-18.0); Immature Granulocytes # (auto) 0.01 K/uL (0.00-0.02); Immature Granulocytes % (auto) 0.1 %; Lymphocytes # (auto) 0.63 K/uL (1.2-3.4); Lymphocytes % (auto) 8.9 %; Mean Corpuscular Hemoglobin 32.1 pg (25-34); Mean Corpuscular Hgb Conc 34.3 g/dL (32-36); Mean Corpuscular Volume 93.4 fL (80-100); Mean Platelet Volume 11.4 fL (7.4-10.4); Monocytes # (auto) 0.97 K/uL (0.11-0.59); Monocytes % (auto) 13.8 %; Neutrophils # (auto) 5.12 K/uL (1.4-6.5); Neutrophils % (auto) 72.6 %; Platelet Count 198 K/uL (130-400); RDW Coefficient of Variation 14.3 % (11.5-14.5); RDW Standard Deviation 49.1 fL (36.4-46.3); Red Blood Count 3.93 M/uL (4.7-6.1); White Blood Count 7.05 K/uL (4.8-10.8)
[2020-09-05 19:07] LABS: iSTAT Creatinine 1.3 mg/dl (0.6-1.3); iSTAT Hemoglobin 11.9 g/dl (14.0-18.0); iSTAT Ionized Calcium 1.09 mmol/l (1.12-1.32)
[2020-09-05 19:19] LABS: Alanine Aminotransferase 22 U/L (12-78); Albumin Level 3.3 gm/dl (3.4-5.0); Aspartate Aminotransferase 15 U/L (15-37); BUN Creatinine Ratio 13.6 (10-20); Blood Urea Nitrogen 18 mg/dl (7-18); Carbon Dioxide 25 mmol/L (21-32); Chloride 109 mmol/L (98-107); Creatinine Clr Calc Pharmacy 58.1 ml/min; Est GFR (African American) 59.7; Est GFR (Non-African American) 51.5; Glucose 94 mg/dl (70-99); Potassium 4.1 mmol/L (3.5-5.1); Sodium 141 mmol/L (136-145)
[2020-09-05 19:25] LABS: Albumin Globulin Ratio 1.2 (0.9-2); Alkaline Phosphatase 65 U/L (45-117); Bilirubin,Total 0.5 mg/dl (0.2-1); Globulin 2.8 gm/dl (2.5-4.0); Total Protein 6.1 gm/dl (6.4-8.2); Troponin I < 0.015 ng/ml (0-0.045)
[2020-09-05] MEDS ORDERED: PIPERACILLIN/TAZOBACTAM 4.5 GM/120 ML BAG IV ONE (19:45)
[2020-09-05] MEDS ORDERED: PIPERACILL/TAZOBAC CONSULT ACTIVE PRN (19:45)
[2020-09-05] MEDS: ACETAMINOPHEN 500 MG TAB PO STA ×2 (19:56→20:02)
[2020-09-05] MEDS ORDERED: GI COCKTAIL ED USE PO ONE (20:26)
--- NOTE | 2020-09-05 20:28 | CT Scan Report ---
CT head/brain wo con CLINICAL HISTORY: 80 years-old Male with Stroke Like Symptoms. Acute strokelike symptoms TECHNIQUE: Multiple axial CT images of the head were obtained without contrast. A dose lowering tech nique was utilized adhering to the principles of ALARA. COMPARISON: CTA head and neck of same day, PET CT 11/03/2019 FINDINGS: No acute intracranial hemorrhage, midline shift, intracranial mass, hydrocephalus, territorial ischem ia or abnormal extra-axial collection. Age-related involutional changes with mild white matter hypode nsities suggestive of chronic microvascular ischemic disease. Cerebral vascular calcifications. 9 mm hypodense focus within the periventricular left parietal lobe on image 18. Senescent calcifications o f the basal ganglia. The calvarium is intact. Mastoid air cells are clear. Prior right-sided maxillary antrostomy with mo derate to severe mucoperiosteal thickening. Resection of the right middle nasal turbinate. Soft tissu es are unremarkable. Prior bilateral lens replacement. IMPRESSION: 1. No acute intracranial abnormality. 2. Age-related involutional changes with chronic microvascular ischemic disease. 3. Subcentimeter hypodense focus of the periventricular left parietal lobe is suggestive of a chronic lacunar infarct. ACT 112: Negative or not required by law. The above report was generated using voice recognition software. It may contain grammatical, syntax o r spelling errors. Electronically signed by: Dyllan Mortensen M.D. 09/05/2020 8:27 PM
--- NOTE | 2020-09-05 20:44 | CT Scan Report ---
CT angio neck with con, CT angio head w con CLINICAL HISTORY: 80 years-old Male with Pt c/o inability to swallow. Acute strokelike symptoms COMPARISON STUDY: Head CT of same day, PET CT 11/03/2019 TECHNIQUE: Following the IV administration of 117 mL of Optiray 320, CT angiogram of the head and nec k was performed from the aortic arch to the skull apex. Images are reviewed in the axial, sagittal, a nd coronal planes. 3-D MIPS images are created and assessed. IV contrast was administered without com plication. All measurements were calculated based on NASCET criteria. A dose lowering technique was utilized adhering to the principles of ALARA. CT DOSE: 2295.48 mGy.cm FINDINGS: Calcified plaque of the thoracic aortic arch. Patency of the innominate and imaged subclavian arterie s. Common carotid arteries are patent bilaterally. Mild to moderate mixed plaque of the carotid bulbs and proximal cervical segments of the internal carotid arteries results in less than 50% stenosis bi laterally. There is tortuosity of the distal cervical segments of the internal carotid arteries. Calc ified plaque of the cavernous and supraclinoid segments. No aneurysm, dissection, high-grade stenosis or proximal branch occlusion. Hypoplastic right A1 segment is likely developmental. Codominant and p atent vertebral arteries. The basilar and posterior cerebral arteries are patent. There is moderate n arrowing within the proximal P1 segment of the left posterior cerebral artery with additional moderat e narrowing noted within the P2 segment. No aneurysm, dissection, high-grade stenosis or proximal bra nch occlusion. The cerebral venous sinuses are patent. There is no abnormal intracranial enhancement. Defect of the right occipital bone with chronic fluid collection measuring 4.9 x 2.0 cm is unchanged . No pneumothorax. Unremarkable soft tissues. Chronic postoperative changes of the paranasal sinuses wi th secretions noted within the nasopharynx and airway. There is moderate circumferential soft tissue prominence with mucosal hyperemia involving the oral pharynx which results in at least moderate narro wing of the airway. There is also prominence with soft tissue thickening of the uvula and soft palate . The epiglottis is unremarkable. Mild medial deviation of the right true vocal fold. Subglottic airw ay is unremarkable. No pneumothorax. IMPRESSION: 1. Atherosclerotic vascular disease with areas of moderate likely chronic intracranial narrowing as d escribed above. 2. Atherosclerotic plaque of the carotid bulbs resulting in less than 50% stenosis bilaterally. 3. No aneurysm, dissection, high-grade stenosis or proximal branch occlusion. 4. Moderate circumferential soft tissue prominence of the oral pharynx with mucosal hyperemia resulti ng in at least moderate narrowing of the airway. An infectious or inflammatory process is favored. Co rrelation with direct visualization is recommended to exclude underlying lesion. 5. Additional findings as above. ACT 112: Negative or not required by law. The above report was generated using voice recognition software. It may contain grammatical, syntax o r spelling errors. Electronically signed by: Dyllan Mortensen M.D. 09/05/2020 8:43 PM
[2020-09-05] MEDS ORDERED: DEXAMETHASONE SOD INJ 10 MG/ML VIAL IV ONE (20:58)
[2020-09-05] MEDS ORDERED: SODIUM CHLORIDE 0.65% NA SOLN 45 ML (OCEAN) ONE (20:58)
[2020-09-05] MEDS ORDERED: DAPTOmycin 550 MG in SYRINGE 0 ML IV ONE (21:00)
[2020-09-05] MEDS ORDERED: guaiFENesin 600 MG TABCR PO STA (21:08)
[2020-09-05 22:38] LABS: Appearance Urine Clear (Clear); Bilirubin Urine Negative (Negative); Blood Urine Negative (Negative); Color Urine Yellow; Glucose Urine UA Negative (Negative); Ketones Urine Negative (Negative); Leukocyte Esterase Urine Negative (Negative); Nitrite Urine Negative (Negative); Protein Urine Negative (Negative); Specific Gravity Urine > 1.045 (1.000-1.030); Urobilinogen Urine Negative (Negative)
--- NOTE | 2020-09-05 23:02 | History & Physical Report ---
Date of Service September 05, 2020 Assessment & Plan (1) Encephalopathy: Transient symptoms Patient currently mentating well. 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 Fernandez antibiotic and steroid Rx for now.) Zosyn for pharyngitis causing airway obstruction on CT Appropriate to hold Eliquis given potential worsening off airway obstruction IV heparin interim Update hemoglobin A1c, ISS BG goal [id number], may need basal insulin Will need DM education if updated hemoglobin A1c confirms DM diagnosis. PT OT eval DVT prophylaxis. IV heparin Full code Patient's daughter requesting updates for providers. Ms. Kate Mead, contact #[phone]. Text document was generated using [employer] voice recognition software. It may contain grammatical or spelling errors. Kindly contact undersigned for clarification of any documentation item in question. History of Present Illness Chief Complaint: Dysphagia, shortness of breath Primary Care Provider: Musa Stout MD History obtained from patient, family, and records. 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 Last confinement May 2020 for pulmonary embolism. Patient discharged on Eliquis course. Patient chemotherapy for paraproteinemia held since June 2020 with recurrent C. difficile illness. Patient started on a vancomycin pulse taper course. 1 week history of sinus congestion with note of greenish drainage with sore throat symptoms. Outpatient COVID-19 test was negative. Patient prescribed amoxicillin course which patient complied with the next few days without issues. Today patient noted to be somewhat confused by family. Sleeping a lot. Patient later on completely complained of worsening sore throat symptoms, painful swallowing. Darby like his throat was closing. No chest pain. No pruritus. No hives noted by family. Some shortness of breath as per patient. No noisy breathing noted by family. Patient brought to the ER. SBP at the ER 180s at one point. Zosyn and Decadron given at the ER for possible airway obstruction. Patient currently feeling comfortable. 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, lives with Allergies Allergy/AdvReac Type Severity Reaction Status Date / Time No Known Allergies Allergy Verified 09/05/20 22:09 Home Medications Medication Instructions Recorded Confirmed Type allopurinol 300 mg PO QAM 04/30/18 09/05/20 History atorvastatin 5 mg PO QAM 04/30/18 09/05/20 History cholecalciferol (vitamin D3) 2,000 unit PO QAM 04/30/18 09/05/20 History [Vitamin D3] citalopram [Celexa] 20 mg PO QAM 04/30/18 09/05/20 History hydralazine 50 mg PO TID 04/30/18 09/05/20 History magnesium oxide 400 mg PO .HOLD 04/30/18 09/05/20 History omeprazole 40 mg PO HS 04/30/18 09/05/20 History terazosin 5 mg PO HS 04/30/18 09/05/20 History carvedilol 3.125 mg PO BID 09/18/18 09/05/20 History levothyroxine 112 mcg PO QAM 05/22/19 09/05/20 History furosemide 20 mg tablet 20 mg PO DIRECTED PRN tab 08/16/19 09/05/20 History amlodipine 5 mg tablet 2.5 mg PO QAM 03/10/20 09/05/20 History aspirin 81 mg tablet,delayed 81 mg PO QAM 03/10/20 09/05/20 History release spironolactone 25 mg tablet 25 mg PO QAM 03/10/20 09/05/20 History acyclovir 400 mg PO BID 05/16/20 09/05/20 History calcium carbonate [Calcium 500] 500 mg PO BID 05/16/20 09/05/20 History amoxicillin 875 mg PO BID 09/05/20 09/05/20 History apixaban [Eliquis] 5 mg PO BID 09/05/20 09/05/20 History vancomycin See Rx Instructions .ROUTE .COMPLEX 09/05/20 09/05/20 History Past Med/Surg History Medical History (Updated 09/06/20 @ 08:07 by Sheila Fernandez MD) Acute respiratory failure with hypoxia BPH without obstruction/lower urinary tract symptoms Carpal tunnel syndrome CKD (chronic kidney disease), stage III Diastolic heart failure GERD (gastroesophageal reflux disease) Gout History of cardiac arrhythmia History of paroxysmal supraventricular tachycardia Hyperlipidemia Hypertension Insomnia LBBB (left bundle branch block) Monoclonal paraproteinemia Morbid (severe) obesity due to excess calories 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 SVT in setting of hypokalemia noted during that admission. Admitted again to [facility] 07/28-07/30/18 for pneumonia with hypoxia. No arrhythmia noted. Lungs CTA B/L on exam at PAT 09/25. Prolonged QT interval Restless leg syndrome Sepsis Surgical History H/O cataract removal with insertion of prosthetic lens H/O knee surgery H/O sinus surgery History of appendectomy History of bilateral knee arthroplasty History of cataract surgery RT/LEFT History of colonoscopy History of esophagogastroduodenoscopy (EGD) History of hip surgery History of tooth extraction History of total right hip arthroplasty Hx of cholecystectomy Status post total hip replacement, left Family History Father Heart disease Mother Diabetes Hypertension Brother Family hx of colon cancer Social History Smoking Status: Never smoker Second Hand Exposure: No; Hx Alcohol Use: No Hx Substance Use: No Preferred Language: Maldivian Communication Ability: Effective Loom Starter Required: No Beliefs That Will Affect Care: None marital status: Current Living Situation: Spouse How many Children do You have: 1 Feels Safe at Home: Yes Safety Concerns: Feels Safe At This Time Assistive Devices: Cane, CPAP, Denture - Upper and Glasses Review of Systems Review of Systems: As per HPI, all 10 systems reviewed, all other ROS negative Physical Exam Physical Exam: GENERAL: Comfortable, pleasant, morbidly obese, no respiratory distress, no stridor SKIN: Pallor, warm HEENT: Alopecia, pale palpebral conjunctivae, no ptosis, dry buccal mucosa, minimal posterior pharyngeal wall congestion NECK : Supple, short neck, no tenderness CHEST : CTA, no tenderness HEART : RRR, no obvious murmurs ABDOMEN: Some distention, nontender EXTREMITIES : Minimal LE swelling, no LE tenderness, no other conspicuous deformities noted NEUROLOGIC : Coherent, no facial asymmetry, no other gross focality Results & Data Results & Data ([facility]) Vital Signs (Past 12 Hours) Vital Signs Temp Pulse Resp BP Pulse Ox 09/05/20 22:40 63 98 09/05/20 22:31 67 99 09/05/20 22:30 72 186/79 H 99 09/05/20 22:28 67 21 99 09/05/20 21:37 63 15 09/05/20 21:36 68 18 175/85 H 96 09/05/20 20:01 181/79 H 95 09/05/20 20:00 83 31 H 96 09/05/20 19:58 99 H 22 97 09/05/20 19:40 64 21 96 09/05/20 19:31 65 22 175/83 H 94 09/05/20 19:30 66 24 94 09/05/20 19:20 65 25 H 96 09/05/20 19:17 65 27 H 158/82 H 93 09/05/20 19:10 69 22 95 09/05/20 19:00 65 21 95 09/05/20 18:50 70 26 H 96 09/05/20 18:43 70 30 H 97 09/05/20 17:26 36.5 C 64 18 167/85 H 98 Laboratory Results Laboratory Results WBC 7.05 K/uL (4.8-10.8) 09/05/20 18:45 RBC 3.93 M/uL (4.7-6.1) L 09/05/20 18:45 Hgb 12.6 g/dL (14.0-18.0) L 09/05/20 18:45 POC Hgb 11.9 g/dl (14.0-18.0) L 09/05/20 18:55 Hct 36.7 % (42-52) L 09/05/20 18:45 POC Hct 35 % (42-52) L 09/05/20 18:55 MCV 93.4 fL (80-100) 09/05/20 18:45 MCH 32.1 pg (25-34) 09/05/20 18:45 MCHC 34.3 g/dL (32-36) 09/05/20 18:45 RDW Std Deviation 49.1 fL (36.4-46.3) H 09/05/20 18:45 RDW Coeff of Nunu 14.3 % (11.5-14.5) 09/05/20 18:45 Plt Count 198 K/uL (130-400) 09/05/20 18:45 MPV 11.4 fL (7.4-10.4) H 09/05/20 18:45 Immature Gran % (Auto) 0.1 % 09/05/20 18:45 Neut % (Auto) 72.6 % 09/05/20 18:45 Lymph % (Auto) 8.9 % 09/05/20 18:45 Scott % (Auto) 13.8 % 09/05/20 18:45 Eos % (Auto) 4.0 % 09/05/20 18:45 Baso % (Auto) 0.6 % 09/05/20 18:45 Neut # (Auto) 5.12 K/uL (1.4-6.5) 09/05/20 18:45 Lymph # (Auto) 0.63 K/uL (1.2-3.4) L 09/05/20 18:45 Scott # (Auto) 0.97 K/uL (0.11-0.59) H 09/05/20 18:45 Eos # (Auto) 0.28 K/uL (0-0.5) 09/05/20 18:45 Baso # (Auto) 0.04 K/uL (0-0.2) 09/05/20 18:45 Immature Gran # (Auto) 0.01 K/uL (0.00-0.02) 09/05/20 18:45 POC Sodium 140 mmol/L (135-144) 09/05/20 18:55 Sodium 141 mmol/L (136-145) 09/05/20 18:45 POC Potassium 4.0 mmol/L (3.3-5.0) 09/05/20 18:55 Potassium 4.1 mmol/L (3.5-5.1) 09/05/20 18:45 POC Chloride 103 mmol/L (101-112) 09/05/20 18:55 Chloride 109 mmol/L (98-107) H 09/05/20 18:45 Carbon Dioxide 25 mmol/L (21-32) 09/05/20 18:45 POC Total CO2 27 mmol/L (24-31) 09/05/20 18:55 Anion Gap 7.0 (3-11) 09/05/20 18:45 POC Anion Gap 15.0 mmol/L (16-25) L 09/05/20 18:55 POC BUN 18 mg/dl (7-18) 09/05/20 18:55 BUN 18 mg/dl (7-18) 09/05/20 18:45 Creatinine 1.30 mg/dl (0.6-1.4) 09/05/20 18:45 POC Creatinine 1.3 mg/dl (0.6-1.3) 09/05/20 18:55 Est Cr Clr Drug Dosing 58.1 ml/min 09/05/20 18:45 Est GFR ( Amer) 59.7 09/05/20 18:45 Est GFR (Non-Af Amer) 51.5 09/05/20 18:45 BUN/Creatinine Ratio 13.6 (10-20) 09/05/20 18:45 Glucose 94 mg/dl (70-99) 09/05/20 18:45 POC Glucose (other) 95 mg/dl (70-99) 09/05/20 18:55 Calcium 8.0 mg/dl (8.5-10.1) L 09/05/20 18:45 POC Ioniz Calcium Frances 1.09 mmol/l (1.12-1.32) L 09/05/20 18:55 Magnesium 2.1 mg/dl (1.8-2.4) 09/05/20 18:45 Total Bilirubin 0.5 mg/dl (0.2-1) 09/05/20 18:45 AST 15 U/L (15-37) 09/05/20 18:45 ALT 22 U/L (12-78) 09/05/20 18:45 Alkaline Phosphatase 65 U/L (45-117) 09/05/20 18:45 Troponin I < 0.015 ng/ml (0-0.045) 09/05/20 18:45 Total Protein 6.1 gm/dl (6.4-8.2) L 09/05/20 18:45 Albumin 3.3 gm/dl (3.4-5.0) L 09/05/20 18:45 Globulin 2.8 gm/dl (2.5-4.0) 09/05/20 18:45 Albumin/Globulin Ratio 1.2 (0.9-2) 09/05/20 18:45 Urine Color Yellow 09/05/20 22:30 Urine Appearance Clear (Clear) 09/05/20 22:30 Urine pH 5.0 (4.5-7.5) 09/05/20 22:30 Ur Specific [place] > 1.045 (1.000-1.030) H 09/05/20 22:30 Urine Protein Negative (Negative) 09/05/20 22:30 Urine Glucose (UA) Negative (Negative) 09/05/20 22:30 Urine Ketones Negative (Negative) 09/05/20 22:30 Urine Blood Negative (Negative) 09/05/20 22:30 Urine Nitrite Negative (Negative) 09/05/20 22:30 Urine Bilirubin Negative (Negative) 09/05/20 22:30 Urine Urobilinogen Negative (Negative) 09/05/20 22:30 Ur Leukocyte Esterase Negative (Negative) 09/05/20 22:30 COVID-19 Eval Order Covid19 IDNow [facility] 09/05/20 19:59 SARS-CoV-2, RNA, NAAT NEGATIVE (NEGATIVE) 09/05/20 19:[address] head: 1. No acute intracranial abnormality. 2. Age-related involutional changes with chronic microvascular ischemic disease. 3. Subcentimeter hypodense focus of the periventricular left parietal lobe is suggestive of a chronic lacunar infarct. CT angio head and neck: 1. Atherosclerotic vascular disease with areas of moderate likely chronic intracranial narrowing as described above. 2. Atherosclerotic plaque of the carotid bulbs resulting in less than 50% stenosis bilaterally. 3. No aneurysm, dissection, high-grade stenosis or proximal branch occlusion. 4. Moderate circumferential soft tissue prominence of the oral pharynx with mucosal hyperemia resulting in at least moderate narrowing of the airway. An infectious or inflammatory process is favored. Correlation with direct visualization is recommended to exclude underlying lesion. Chest x-ray : 1. Mild bibasilar opacities suggest atelectasis versus pneumonitis. 2. Suggested trace pleural effusions. EKG as per my interpretation : Rate 65, NSR, LAD, LAFB, 1 AVB, LBBB
[2020-09-05] MEDS ORDERED: carvediloL 3.125 MG TAB PO STA (23:03)
[2020-09-06] MEDS ORDERED: LACTATED RINGER'S 1,000 ML IV ONE (02:12)
[2020-09-06] MEDS ORDERED: traMADol HCL 50 MG TABLET PO PRN (02:12)
[2020-09-06] MEDS ORDERED: TERAZOSIN HCL 5 MG CAP PO SCH (02:12)
[2020-09-06] MEDS ORDERED: HEPARIN SODIUM/DEXTROSE 25,000 UNITS/500 ML BAG IV SCH (02:12)
[2020-09-06] MEDS ORDERED: Heparin IV Adult Wt-Based Low-Dose *NO* Bolus Protocol IV ONE (02:12)
[2020-09-06] MEDS ORDERED: PROMETHAZINE HCL 12.5 MG in SODIUM CHLORIDE 0.9% 50 ML IV PRN (02:12)
[2020-09-06] MEDS ORDERED: AMPICILLIN/SULBACTAM CONSULT ACTIVE PRN (02:18)
[2020-09-06 02:39] LABS: Basophils # (auto) 0.01 K/uL (0-0.2); Basophils % (auto) 0.2 %; Hematocrit (blood only) 37.7 % (42-52); Hemoglobin 13.1 g/dL (14.0-18.0); Immature Granulocytes # (auto) 0.01 K/uL (0.00-0.02); Immature Granulocytes % (auto) 0.2 %; Lymphocytes # (auto) 0.24 K/uL (1.2-3.4); Mean Corpuscular Hemoglobin 32.3 pg (25-34); Mean Corpuscular Volume 92.9 fL (80-100); Mean Platelet Volume 11.3 fL (7.4-10.4); Monocytes # (auto) 0.07 K/uL (0.11-0.59); Monocytes % (auto) 1.2 %; Neutrophils # (auto) 5.68 K/uL (1.4-6.5); Neutrophils % (auto) 94.4 %; Platelet Count 212 K/uL (130-400); RDW Standard Deviation 47.7 fL (36.4-46.3); Red Blood Count 4.06 M/uL (4.7-6.1); White Blood Count 6.01 K/uL (4.8-10.8)
[2020-09-06 02:40] LABS: Mean Corpuscular Hgb Conc 34.7 g/dL (32-36)
[2020-09-06 02:52] LABS: Partial Thromboplastin Time 25.9 Seconds (21.0-31.0)
[2020-09-06] MEDS: hydrALAZINE TAB 50 MG TAB PO SCH ×2 (03:27→08:43)
[2020-09-06] MEDS: AMPICILLIN/SULBACTAM SOD 3,000 MG in 0.9 % SODIUM CHLORIDE 100 ML IV SCH ×2 (03:56→10:08)
[2020-09-06] MEDS ORDERED: DEXTROSE 50% 50 ML SYRINGE IV PRN (05:31)
[2020-09-06] MEDS ORDERED: GLUCOSE 40% GEL 15 GM TUBE PO PRN (05:31)
[2020-09-06] MEDS ORDERED: GLUCAGON FOR INJ 1 MG VIAL SQ PRN (05:31)
[2020-09-06] MEDS ORDERED: CARBOHYDRATES FOR HYPOGLYCEMIA PO PRN (05:31)
[2020-09-06] MEDS ORDERED: GLUCOSE 10 TABS/TUBE PO PRN (05:31)
[2020-09-06] MEDS: INSULIN ASPART 100 UNITS/ML 3 ML PEN SC SCH ×2 (05:52→12:31)
[2020-09-06 06:21] LABS: Basophils # (auto) 0.01 K/uL (0-0.2); Basophils % (auto) 0.1 %; Hematocrit (blood only) 38.5 % (42-52); Hemoglobin 13.2 g/dL (14.0-18.0); Immature Granulocytes # (auto) 0.01 K/uL (0.00-0.02); Immature Granulocytes % (auto) 0.1 %; Lymphocytes # (auto) 0.36 K/uL (1.2-3.4); Lymphocytes % (auto) 5.2 %; Mean Corpuscular Hemoglobin 31.9 pg (25-34); Mean Corpuscular Hgb Conc 34.3 g/dL (32-36); Mean Platelet Volume 11.2 fL (7.4-10.4); Monocytes # (auto) 0.05 K/uL (0.11-0.59); Monocytes % (auto) 0.7 %; Neutrophils # (auto) 6.51 K/uL (1.4-6.5); Neutrophils % (auto) 93.9 %; Platelet Count 203 K/uL (130-400); RDW Standard Deviation 47.6 fL (36.4-46.3); Red Blood Count 4.14 M/uL (4.7-6.1); White Blood Count 6.94 K/uL (4.8-10.8)
[2020-09-06 06:29] LABS: Partial Thromboplastin Ratio 1.2; Partial Thromboplastin Time 31.7 Seconds (21.0-31.0)
[2020-09-06] MEDS ORDERED: LEVOTHYROXINE SODIUM 112 MCG TABLET PO SCH (06:30)
[2020-09-06 07:05] LABS: Estimated Average Glucose 117 mg/dl; Hemoglobin A1C 5.7 % (4.5-5.6)
--- NOTE | 2020-09-06 08:09 | ENT Consultation ---
Date of Consultation September 06, 2020 Assessment & Plan (1) Chronic sinusitis: This 80-year-old gentleman complains of thick phlegm coating the back of his throat draining from the right side of his nose. CT basically showed large wide right maxillary antrostomy with turbinate resection with circumferential mucosal thickening or mucin in the right maxillary sinus with involvement of the ethmoid sinuses. Otherwise there is no sign of abscess. He has responded well this morning with minimal sore throat after being treated with IV antibiotics and Solu-Medrol. Can be converted to p.o. meds. I would be happy to see him in follow-up in the office in 2 weeks. (2) Multiple myeloma: History of Present Illness Reason for Consultation: This 80-year-old gentleman was admitted via the emergency room because of sore throat and swelling. His main complaint is thick phlegm, slime, draining down the right side of his throat from his nose. He does not remember when he had previous sinus surgery. He does not remember who did the surgery. He denies having neck pain or swelling. He does not have trouble opening his mouth. Attending Physician: Hayden Nolan DO Allergies Allergy/AdvReac Type Severity Reaction Status Date / Time No Known Allergies Allergy Verified 09/05/20 22:09 Home Medications Medication Instructions Recorded Confirmed Type allopurinol 300 mg PO QAM 04/30/18 09/05/20 History atorvastatin 5 mg PO QAM 04/30/18 09/05/20 History cholecalciferol (vitamin D3) 2,000 unit PO QAM 04/30/18 09/05/20 History [Vitamin D3] citalopram [Celexa] 20 mg PO QAM 04/30/18 09/05/20 History hydralazine 50 mg PO TID 04/30/18 09/05/20 History magnesium oxide 400 mg PO .HOLD 04/30/18 09/05/20 History omeprazole 40 mg PO HS 04/30/18 09/05/20 History terazosin 5 mg PO HS 04/30/18 09/05/20 History carvedilol 3.125 mg PO BID 09/18/18 09/05/20 History levothyroxine 112 mcg PO QAM 05/22/19 09/05/20 History furosemide 20 mg tablet 20 mg PO DIRECTED PRN tab 08/16/19 09/05/20 History amlodipine 5 mg tablet 2.5 mg PO QAM 03/10/20 09/05/20 History aspirin 81 mg tablet,delayed 81 mg PO QAM 03/10/20 09/05/20 History release spironolactone 25 mg tablet 25 mg PO QAM 03/10/20 09/05/20 History acyclovir 400 mg PO BID 05/16/20 09/05/20 History calcium carbonate [Calcium 500] 500 mg PO BID 05/16/20 09/05/20 History amoxicillin 875 mg PO BID 09/05/20 09/05/20 History apixaban [Eliquis] 5 mg PO BID 09/05/20 09/05/20 History vancomycin See Rx Instructions .ROUTE .COMPLEX 09/05/20 09/05/20 History Patient History Medical History (Updated 09/06/20 @ 08:07 by Sheila Fernandez MD) Acute respiratory failure with hypoxia BPH without obstruction/lower urinary tract symptoms Carpal tunnel syndrome CKD (chronic kidney disease), stage III Diastolic heart failure GERD (gastroesophageal reflux disease) Gout History of cardiac arrhythmia History of paroxysmal supraventricular tachycardia Hyperlipidemia Hypertension Insomnia LBBB (left bundle branch block) Monoclonal paraproteinemia Morbid (severe) obesity due to excess calories 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 SVT in setting of hypokalemia noted during that admission. Admitted again to [facility] 07/28-07/30/18 for pneumonia with hypoxia. No arrhythmia noted. Lungs CTA B/L on exam at PAT 09/25. Prolonged QT interval Restless leg syndrome Sepsis Surgical History H/O cataract removal with insertion of prosthetic lens H/O knee surgery H/O sinus surgery History of appendectomy History of bilateral knee arthroplasty History of cataract surgery RT/LEFT History of colonoscopy History of esophagogastroduodenoscopy (EGD) History of hip surgery History of tooth extraction History of total right hip arthroplasty Hx of cholecystectomy Status post total hip replacement, left Family History Father Heart disease Mother Diabetes Hypertension Brother Family hx of colon cancer Social History Smoking Status: Never smoker Second Hand Exposure: No; Hx Alcohol Use: No Hx Substance Use: No Preferred Language: Czech Communication Ability: Effective Services Delivery Driver Required: No Beliefs That Will Affect Care: None marital status: Current Living Situation: Spouse How many Children do You have: 1 Feels Safe at Home: Yes Safety Concerns: Feels Safe At This Time Assistive Devices: Cane, CPAP, Denture - Upper and Glasses Physical Exam Constitutional: + obese Eyes: PERRL, conjunctivae normal, anicteric sclerae ENMT: Nose: + turbinate abnormality (Post turbinate resection right side), + nasal mucous membrane abnormality (Irritated mucosa), + nasal discharge (Aguilar to brownish thick mucin coating right nasal cavity.) and + dry nasal mucous membranes Mouth: + oropharynx abnormality (Uvula in midline, mild swelling, no sign of abscess) Neck: trachea midline, no thyromegaly (Specifically there is no trismus and no sign of abscess) Respiratory: normal respiratory effort Results & Data ([facility]) Vital Signs (Past 12 Hours) Vital Signs Temp Pulse Pulse Resp BP BP Pulse Ox 09/06/20 07:37 57 L 09/06/20 07:29 36.8 C 68 18 135/64 96 09/06/20 03:33 36.9 C 68 16 150/90 H 97 09/06/20 01:29 67 22 172/105 H 98 09/06/20 00:31 68 21 177/91 H 98 09/06/20 00:01 72 22 151/69 H 99 09/05/20 23:30 63 20 177/95 H 99 09/05/20 23:00 62 22 188/103 H 99 09/05/20 22:40 63 98 09/05/20 22:31 67 99 09/05/20 22:30 72 186/79 H 99 09/05/20 22:28 67 21 99 09/05/20 21:37 63 15 09/05/20 21:36 68 18 175/85 H 96 (1) Multiple myeloma Multiple myeloma remission status: unspecified Qualified Code(s): C90.00 - Multiple myeloma not having achieved remission
[2020-09-06] MEDS: RASPBERRY SYRUP 5 ML UDP PO SCH ×2 (08:46→12:30)
[2020-09-06] MEDS: VANCOMYCIN HCL 125 MG/2.5ML SOLN PO SCH ×2 (08:46→12:30)
[2020-09-06] MEDS ORDERED: ACYCLOVIR 400 MG TAB PO SCH (09:00)
[2020-09-06] MEDS ORDERED: allopurinoL 300 MG TAB PO SCH (09:00)
[2020-09-06] MEDS ORDERED: ASPIRIN 81 MG ECTAB PO SCH (09:00)
[2020-09-06] MEDS ORDERED: INSULIN GLARGINE SOLOSTAR 100 UNITS/ML 3 ML PEN SC SCH (09:00)
[2020-09-06] MEDS ORDERED: carvediloL 3.125 MG TAB PO SCH (09:00)
[2020-09-06] MEDS ORDERED: amLODIPine BESYLATE 5 MG TAB PO SCH (09:00)
[2020-09-06] MEDS ORDERED: methylPREDNISolone 40 MG in SYRINGE 0 ML IV SCH (09:00)
[2020-09-06] MEDS ORDERED: ATORVASTATIN 10 MG TAB PO SCH (09:00)
[2020-09-06] MEDS ORDERED: CITALOPRAM 20 MG TAB PO SCH (09:00)
[2020-09-06 10:22] LABS: Partial Thromboplastin Ratio 1.2; Partial Thromboplastin Time 31.6 Seconds (21.0-31.0)
--- NOTE | 2020-09-06 10:38 | Discharge Summary ---
Date of Service September 06, 2020 Admission HPI Per Admitting Provider History obtained from patient, family, and records. 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 Last confinement May 2020 for pulmonary embolism. Patient discharged on Eliquis course. Patient chemotherapy for paraproteinemia held since June 2020 with recurrent C. difficile illness. Patient started on a vancomycin pulse taper course. 1 week history of sinus congestion with note of greenish drainage with sore throat symptoms. Outpatient COVID-19 test was negative. Patient prescribed amoxicillin course which patient complied with the next few days without issues. Today patient noted to be somewhat confused by family. Sleeping a lot. Patient later on completely complained of worsening sore throat symptoms, painful swallowing. [place] like his throat was closing. No chest pain. No pruritus. No hives noted by family. Some shortness of breath as per patient. No noisy breathing noted by family. Patient brought to the ER. SBP at the ER 180s at one point. Zosyn and Decadron given at the ER for possible airway obstruction. Patient currently feeling comfortable. 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, lives with Admission Exam Per Admitting Provider GENERAL: Comfortable, pleasant, morbidly obese, no respiratory distress, no stridor SKIN: Pallor, warm HEENT: Alopecia, pale palpebral conjunctivae, no ptosis, dry buccal mucosa, minimal posterior pharyngeal wall congestion NECK : Supple, short neck, no tenderness CHEST : CTA, no tenderness HEART : RRR, no obvious murmurs ABDOMEN: Some distention, nontender EXTREMITIES : Minimal LE swelling, no LE tenderness, no other conspicuous deformities noted NEUROLOGIC : Coherent, no facial asymmetry, no other gross focality Principal Diagnosis Encephalopathy: Hypertension URTI Old CVA Chronic diastolic heart failure (EF 60 to 65% TTE 2019) CAD Chronic LBBB Pulmonary embolism NAHEED chronic anemia monoclonal paraproteinemia Recurrent C. difficile Discharge Exam ROS-No Headache, No Visual Changes, No Nausea, No Vomiting, No Fever, No Chills, No Neck Pain or Stiffness, No Chest Pain, No Palpitations, No SOB, No FARAH, No Cough, No Sputum, No Wheezing, No Abdominal Pain, No Diarrhea, No Hematemesis, No Hemoptysis, No Unexpected Weight Loss, No Flank pain, No Melena, No Hematochezia, No Frequency, No Urgency, No Burning, No Hematuria, No Rashes, No Diaphoresis. Appetite is Normal Physical Exam Gen-AAO x 3, NAD, Afebrile, obese Head-NCAT, EOMI, PERRLA, Anicteric Sclera, No Posterior Pharyngeal Erythema Neck-Supple, No JVD, No Thyromegaly, No Masses, No LAD, No Bruits Lungs-Clear to Auscultation Bilaterally, No Rales, No Rhonchi, No Wheezing, No Crepitus Chest-No S4, +S1, +S2, No S3, No Murmurs, No Rubs, No Gallops, No Ectopy Abdomen-Soft, Bowel Sounds Present, Non Tender, Non Distended, No Hepatomegaly, No Splenomegaly, No Palpable Masses, No Rebound, No Rigidity, No Guarding Musculoskeletal-Full Range of Motion Bilaterally, No CVAT Extremities-No Cyanosis, No Clubbing, No Edema Nuero-Cranial Nerves II-XII grossly intact, Motor WNL, DTRs WNL, Strength WNL, Non Focal Psych-Normal Mood Discharge Data Allergies Allergy/AdvReac Type Severity Reaction Status Date / Time No Known Allergies Allergy Verified 09/05/20 22:09 Consultations 09/05/20 21:09 ED Decision to Admit Stat 09/06/20 02:12 Consult Otolaryngology (Head and Neck) Routine Ordered Studies 09/05/20 19:45 CT angio head w con Stat CT head/brain wo con Stat 09/05/20 19:58 CT angio neck with con Stat Current Diagnoses Multiple myeloma not having achieved remission (09/05/20) Encephalopathy, unspecified (09/05/20) Chronic sinusitis, unspecified (09/05/20) Allergies No Known Allergies Allergy (Verified 09/05/20 22:09) Height/Weight/Isolation Height 5 ft 7 in Weight 122 kg Isolation Type Contact Precautions Chemistry 09/05/20 18:45 Sodium 141 Potassium 4.1 Chloride 109 H Carbon Dioxide 25 Anion Gap 7.0 BUN 18 Creatinine 1.30 Glucose 94 Urinalysis 09/05/20 22:30 Urine Color Yellow Urine Appearance Clear Urine pH 5.0 Ur Specific [place] > 1.045 H Urine Protein Negative Urine Glucose (UA) Negative Urine Ketones Negative Urine Blood Negative Urine Nitrite Negative Urine Bilirubin Negative Hospital Course (1) Encephalopathy: Transient symptoms Patient currently mentating well. Multifactorial : Uncontrolled hypertension URTI resulting in some airway obstruction on CT, failed outpatient treatment, no sepsis for now, no stridor on clinical exam He was seen by ENT recommend f/u in the office in 1 week, DC on Prednisone and Abx Old CVA on CAT scan chronic diastolic heart failure (EF 60 to 65% TTE 2019), euvolemic to dry nonobstructive CAD as per records chronic LBBB pulmonary embolism on Eliquis NAHEED on CPAP chronic anemia, hemoglobin at baseline monoclonal paraproteinemia as per records, chemotherapy currently on hold due to recurrent C. difficile ongoing oral vancomycin taper Elevated hemoglobin A1c of 11.15 May 2020 ENT on case-Dr. Fernandez antibiotic and steroid Rx for now, f/u in office Cefdinir for pharyngitis Resume Eliquis on DC DC IV heparin DC home Full code Patient's daughter updated. She will let me know if he relapses. Ms. Kate Mead, contact #[phone]. Total Time Total Time Spent Total Time Spent (In Minutes): 45 mins Total Time Includes: Examination of the Patient, Discharge Planning, Medication Reconciliation and Communication With Other Providers Discharge Plan Discharge Items Patient Disposition: Home - Self-Care Reason For Visit: HTN URG, AIRWAY OBS Discharge Diagnosis: Encephalopathy: Hypertension URI Old CVA Chronic diastolic heart failure (EF 60 to 65% TTE 2019) CAD Chronic LBBB Pulmonary embolism NAHEED chronic anemia monoclonal paraproteinemia Recurrent C. difficile Condition on Discharge: Good Health Concerns: Worsening of symptoms Activity: Resume your previous activity Lifting: Gradually increase as tolerated Bathing: No limitations Exercise/Sports: Gradually increase as tolerated Driving/Machine Use: No limitations Weightbearing: Full weightbearing Non-emergency contact: Primary Care Provider and Surgeon Call non-emergency contact if: you have any medication questions Follow-up/Referrals: Sheila Fernandez MD [Physician] - (Follow up in 2 weeks in the office, Call for Appt) Musa Stout MD [Primary Care Provider] - (Date & Time 09/13/2020 11:20 AM Provider Musa Stout MD [facility] ) Diet: Heart Healthy Addtl Attending Provider Instructions: Return to the ER if symptoms come back Pending Studies at Discharge: No Stand-Alone Forms: My [facility] [employer], Smoking Cessation Medications and DC Order Prescriptions: New cefdinir 300 mg capsule 300 mg PO Q12H 10 Days Qty: 20 RF: 0 prednisone 10 mg tablet 10 mg PO DAILY Qty: 21 RF: 0 Continued furosemide [Lasix] 20 mg tablet 20 mg PO DIRECTED PRN (Reason: Fluid Retention) RF: 0 amlodipine 5 mg tablet 2.5 mg PO QAM RF: 0 aspirin 81 mg tablet,delayed release (DR/EC) 81 mg PO QAM RF: 0 spironolactone 25 mg tablet 25 mg PO QAM RF: 0 terazosin 5 mg Capsule 5 mg PO HS RF: 0 atorvastatin 10 mg Tablet 5 mg PO QAM RF: 0 omeprazole 40 mg Capsule,Delayed Release(Dr/Ec) 40 mg PO HS RF: 0 citalopram [Celexa] 20 mg Tablet 20 mg PO QAM RF: 0 allopurinol 300 mg Tablet 300 mg PO QAM RF: 0 hydralazine 50 mg Tablet 50 mg PO TID RF: 0 cholecalciferol (vitamin D3) [Vitamin D3] 2,000 unit Capsule 2,000 unit PO QAM RF: 0 magnesium oxide 400 mg magnesium Tablet 400 mg PO .HOLD RF: 0 vancomycin 125 mg capsule See Rx Instructions .ROUTE .COMPLEX RF: 0 Eliquis 5 mg tablet 5 mg PO BID RF: 0 carvedilol 3.125 mg Tablet 3.125 mg PO BID RF: 0 levothyroxine 112 mcg Tablet 112 mcg PO QAM RF: 0 calcium carbonate [Calcium 500] 500 mg calcium (1,250 mg) Tablet 500 mg PO BID RF: 0 acyclovir 400 mg tablet 400 mg PO BID RF: 0 Discontinued amoxicillin 875 mg tablet 875 mg PO BID RF: 0 Discharge Orders: Discharge Order (Routine); Ordered 09/06/20 Ordered By: Hayden Nolan Admission Data Admit Date/Time: 09/05/20 23:11 Attending Provider: Hayden Nolan Admit Provider: Will Pineda Primary Care Provider: Musa Stout Other Providers: Will Pineda ; Sheila Fernandez
[2020-09-06] MEDS ORDERED: HEPARIN SOD (PORCINE) 1000 UNIT/ML IV ONE ×2 (11:16)
[2020-09-06] MEDS ORDERED: HEPARIN IV BOLUS 4,000 UNITS in SYRINGE 0 ML IV ONE (11:45)
--- NOTE | 2020-09-06 15:14 | Electrocardiogram Report ---
Test Reason : Blood Pressure : / mmHG Vent. Rate : 065 BPM Atrial Rate : 065 BPM P-R Int : 216 ms QRS Dur : 146 ms QT Int : 476 ms P-R-T Axes : 060 -43 120 degrees QTc Int : 495 ms Poor data quality, interpretation may be adversely affected Sinus rhythm with 1st degree A-V block with frequent Premature ventricular complexes and Premature at rial complexes Left axis deviation Left bundle branch block Abnormal ECG When compared with ECG of 18-MAY-2020 07:20, Premature ventricular complexes are now Present QRS axis Shifted left T wave inversion now evident in Inferior leads Confirmed by Kvng Cain ([id number]) on 09/06/2020 3:14:13 PM Referred By: REFERRED SELF Confirmed By:Kvng Cain
[2020-09-06] MEDS ORDERED: PANTOprazole 40 MG TAB PO SCH (21:00)
== END 2020-09-06 13:01 | disposition home or self-care (01) | DRG 153 ==
LOC: ED 17:24 → INTOOBSV 23:11 → 2W 09-06

== ENCOUNTER 2021-05-07 09:25 | Inpatient (IN) ==
[2021-05-07] MEDS ORDERED: SODIUM CHLORIDE 0.9% 1000ML 500 ML IV ONE (09:54)
--- NOTE | 2021-05-07 09:54 | Emergency Department Note ---
Impression & Plan Atrial fibrillation with rapid ventricular response Admission ED Provider Note HPI: The patient is a 81-year-old gentleman with history of multiple myeloma, presents emergency department with a chief complaint of palpitations. Patient was in to have echocardiogram done this morning as an outpatient, this apparently showed atrial fibrillation and he was referred to the ED as he had some transient tachycardia with blood pressures in the 90s systolic. On arrival here to the ED the patient has a blood pressure 132/82, his heart rate is within normal limits initially. On my initial assessment the patient is in no acute distress, resting comfortably, he is saturating well on room air, on the monitor on my evaluation the patient's heart rate is in the 110s, atrial fibrillation on the monitor. ROS: -Cardio: Palpitations *10 point review systems was conducted and is otherwise negative unless stated above *Outpatient medications and allergy history reviewed PE: General: Alert, NAD HEENT: Normocephalic, atraumatic, trachea midline Eyes: Extraocular eye movement is intact, no scleral erythema Pulmonary: Clear to auscultation bilaterally, no wheezing Cardio: Regular rate and irregular rhythm GI: Abdomen is soft, nontender : No suprapubic tenderness MSK: No evidence of trauma or malformation of the extremities, no edema Skin: No evidence of rash Neuro: Alert, no focal deficits Psychiatric: Cooperative hospital monitor: Order placed, patient is in atrial fibrillation on the monitor EKG: Atrial fibrillation with a rate of 130 ST changes: No ST elevation Intervals: QRS 120 ms, QTC 523 ms Time: 0948 Medical Decision Making: Patient appears well here in the ED, he did have some runs of tachycardia consistent with atrial fibrillation with RVR, this is apparently new onset and he was sent in after an echocardiogram showed atrial fibrillation and he was borderline hypotensive. Patient has not been hypotensive here in the ED, his troponin is negative, EKG does show atrial fibrillation with a rate of 130. Chest x-ray does not show any acute process, COVID-19 testing is negative, patient remained with blood pressures greater than 100 systolic while he was here in the ED, he did not have any chest pain. Case was discussed with the on-call [facility] pipe fitter welding who was familiar with the patient already, Dr. Galindo, recommended admission to the hospitalist service and patient will be taken for cardioversion under anesthesia by the cardiology service prior to admission. Discussed with the patient and his family member at the bedside and they are in agreement to the above plan. Patient's tachycardia did resolve in the ED without intervention, he was ordered diltiazem however before this was given his heart rate had already down trended into the 80s without issue. Therefore this was held. Patient was in agreement for admission he was admitted to the [facility] service in stable condition. * Diagnosis: New onset atrial fibrillation with RVR * Disposition: Admission * CRITICAL CARE TIME: Stabilization of tachyarrhythmia/atrial fibrillation with RVR requiring IV fluid resuscitation, discussion with specialty services/cardiology, time spent at the bedside, interpretation of diagnostic studies Amadeo Moreno DO Emergency Medicine Past Med/Surg History Medical History (Updated 05/07/21 @ 17:05 by Amadeo Moreno DO) BPH without obstruction/lower urinary tract symptoms Carpal tunnel syndrome Chronic diastolic CHF (congestive heart failure) Chronic sinusitis CKD (chronic kidney disease), stage III Escherichia coli infection GERD (gastroesophageal reflux disease) Gout History of paroxysmal supraventricular tachycardia History of pulmonary embolism Hyperlipidemia Hypertension Insomnia Klebsiella infection Lambda light chain myeloma LBBB (left bundle branch block) Monoclonal B-cell lymphocytosis Morbid (severe) obesity due to excess calories Neuralgia ON SIDE OF FACE Nonobstructive atherosclerosis of coronary artery By 05/2010 catheterization Obstructive sleep apnea on CPAP Pericardial effusion Pleural effusion, left Prolonged QT interval Recurrent Clostridioides difficile infection Restless leg syndrome Surgical History H/O cataract removal with insertion of prosthetic lens H/O knee surgery H/O sinus surgery History of appendectomy History of bilateral knee arthroplasty History of cataract surgery RT/LEFT History of colonoscopy History of esophagogastroduodenoscopy (EGD) History of hip surgery History of tooth extraction History of total right hip arthroplasty Hx of cholecystectomy Status post total hip replacement, left Family History Father Heart disease Mother Diabetes Hypertension Brother Family hx of colon cancer Social History Smoking Status: Never smoker Second Hand Exposure: No; Hx Alcohol Use: No Hx Substance Use: No Preferred Language: [place] African Communication Ability: Effective 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 Beliefs That Will Affect Care: None marital status: Current Living Situation: Spouse How many Children do You have: 1 Feels Safe at Home: Yes Assistive Devices: Cane, CPAP, Denture - Upper and Glasses Allergies Allergies Allergy/AdvReac Type Severity Reaction Status Date / Time No Known Allergies Allergy Verified 05/07/21 10:03 Home Meds Home Medications Medication Instructions Recorded Confirmed allopurinol 300 mg tablet 300 mg PO QAM 04/30/18 05/07/21 atorvastatin 10 mg tablet 5 mg PO QAM 04/30/18 05/07/21 cholecalciferol (vitamin D3) 50 2,000 unit PO QAM 04/30/18 05/07/21 mcg (2,000 unit) capsule (Vitamin D3) citalopram 20 mg tablet (Celexa) 20 mg PO QAM 04/30/18 05/07/21 hydralazine 50 mg tablet 25 mg PO TID 04/30/18 05/07/21 omeprazole 40 mg capsule,delayed 40 mg PO HS 04/30/18 05/07/21 release terazosin 5 mg capsule 5 mg PO HS 04/30/18 05/07/21 levothyroxine 112 mcg tablet 112 mcg PO QAM 05/22/19 05/07/21 furosemide 20 mg tablet (Lasix) 20 mg PO DAILY tab 08/16/19 05/07/21 aspirin 81 mg tablet,delayed 81 mg PO QAM 03/10/20 05/07/21 release spironolactone 25 mg tablet 25 mg PO QAM 03/10/20 05/07/21 acyclovir 400 mg tablet 400 mg PO BID 05/16/20 05/07/21 calcium carbonate 500 mg calcium 500 mg PO BID 05/16/20 05/07/21 (1,250 mg) tablet (Calcium 500) apixaban 5 mg tablet (Eliquis) 5 mg PO BID 09/05/20 05/07/21 metoprolol succinate 25 mg 25 mg PO DAILY 05/07/21 05/07/21 tablet,extended release 24 hr montelukast 10 mg tablet 10 mg PO DAILY 05/07/21 05/07/21 Results & Data (ED) Vital Signs Vital Signs - 24 hr 05/07/21 09:31 05/07/21 09:46 05/07/21 09:50 Temperature 36.9 C Temperature Source Skin Pulse Rate 82 137 H 131 H Pulse Rate [Apical] Pulse Rate from SpO2 Sensor Pulse Rhythm Pulse Rhythm [Apical] Respiratory Rate 18 24 30 H Respiratory Effort / Characteristics Respiratory Depth Respiratory Pattern Blood Pressure 132/82 Blood Pressure [Right Arm] Blood Pressure Mean 98 Blood Pressure Mean [Right Arm] Blood Pressure Position [Right Arm] Pulse Oximetry 97 Oxygen Delivery Method Room Air Oxygen Flow Rate Sepsis Recent Fever Within 48 Hours No Sepsis New/Unexplained Change in Mental Status No Sepsis Action Taken by Nursing No Action Required 05/07/21 10:00 05/07/21 10:02 05/07/21 10:10 Temperature Temperature Source Pulse Rate 129 H 133 H 123 H Pulse Rate [Apical] 124 H Pulse Rate from SpO2 Sensor 117 H Pulse Rhythm Irregular Pulse Rhythm [Apical] Irregular Respiratory Rate 29 H 24 26 H Respiratory Effort / Characteristics Non-Labored Spontaneous Respiratory Depth Normal Respiratory Pattern Regular Blood Pressure Blood Pressure [Right Arm] 110/83 Blood Pressure Mean Blood Pressure Mean [Right Arm] 92 Blood Pressure Position [Right Arm] Pulse Oximetry 96 96 Oxygen Delivery Method Room Air Oxygen Flow Rate 0 Sepsis Recent Fever Within 48 Hours Sepsis New/Unexplained Change in Mental Status Sepsis Action Taken by Nursing 05/07/21 10:20 05/07/21 10:30 05/07/21 10:40 Temperature Temperature Source Pulse Rate 157 H 124 H 120 H Pulse Rate [Apical] Pulse Rate from SpO2 Sensor 137 H 103 H 115 H Pulse Rhythm Pulse Rhythm [Apical] Respiratory Rate 26 H 28 H 21 Respiratory Effort / Characteristics Respiratory Depth Respiratory Pattern Blood Pressure Blood Pressure [Right Arm] Blood Pressure Mean Blood Pressure Mean [Right Arm] Blood Pressure Position [Right Arm] Pulse Oximetry 95 97 96 Oxygen Delivery Method Oxygen Flow Rate Sepsis Recent Fever Within 48 Hours Sepsis New/Unexplained Change in Mental Status Sepsis Action Taken by Nursing 05/07/21 10:50 05/07/21 11:00 05/07/21 11:10 Temperature Temperature Source Pulse Rate 125 H 126 H 92 H Pulse Rate [Apical] Pulse Rate from SpO2 Sensor 116 H 119 H 102 H Pulse Rhythm Pulse Rhythm [Apical] Respiratory Rate 20 16 28 H Respiratory Effort / Characteristics Respiratory Depth Respiratory Pattern Blood Pressure Blood Pressure [Right Arm] Blood Pressure Mean Blood Pressure Mean [Right Arm] Blood Pressure Position [Right Arm] Pulse Oximetry 96 98 97 Oxygen Delivery Method Oxygen Flow Rate Sepsis Recent Fever Within 48 Hours Sepsis New/Unexplained Change in Mental Status Sepsis Action Taken by Nursing 05/07/21 11:30 05/07/21 11:40 05/07/21 11:50 Temperature Temperature Source Pulse Rate 96 H 93 H 85 Pulse Rate [Apical] Pulse Rate from SpO2 Sensor 91 H 102 H 89 Pulse Rhythm Pulse Rhythm [Apical] Respiratory Rate Respiratory Effort / Characteristics Respiratory Depth Respiratory Pattern Blood Pressure Blood Pressure [Right Arm] Blood Pressure Mean Blood Pressure Mean [Right Arm] Blood Pressure Position [Right Arm] Pulse Oximetry 97 97 97 Oxygen Delivery Method Oxygen Flow Rate Sepsis Recent Fever Within 48 Hours Sepsis New/Unexplained Change in Mental Status Sepsis Action Taken by Nursing 05/07/21 12:00 05/07/21 12:10 05/07/21 12:20 Temperature Temperature Source Pulse Rate 87 84 104 H Pulse Rate [Apical] Pulse Rate from SpO2 Sensor 90 90 93 H Pulse Rhythm Pulse Rhythm [Apical] Respiratory Rate 22 Respiratory Effort / Characteristics Respiratory Depth Respiratory Pattern Blood Pressure Blood Pressure [Right Arm] Blood Pressure Mean Blood Pressure Mean [Right Arm] Blood Pressure Position [Right Arm] Pulse Oximetry 96 96 91 Oxygen Delivery Method Oxygen Flow Rate Sepsis Recent Fever Within 48 Hours Sepsis New/Unexplained Change in Mental Status Sepsis Action Taken by Nursing 05/07/21 12:30 05/07/21 12:40 05/07/21 12:50 Temperature Temperature Source Pulse Rate 175 H 95 H 98 H Pulse Rate [Apical] Pulse Rate from SpO2 Sensor 103 H 95 H 96 H Pulse Rhythm Pulse Rhythm [Apical] Respiratory Rate 29 H 23 24 Respiratory Effort / Characteristics Respiratory Depth Respiratory Pattern Blood Pressure Blood Pressure [Right Arm] Blood Pressure Mean Blood Pressure Mean [Right Arm] Blood Pressure Position [Right Arm] Pulse Oximetry 97 97 98 Oxygen Delivery Method Oxygen Flow Rate Sepsis Recent Fever Within 48 Hours Sepsis New/Unexplained Change in Mental Status Sepsis Action Taken by Nursing 05/07/21 13:00 05/07/21 13:15 Temperature 36.7 C Temperature Source Oral Pulse Rate 100 H 89 Pulse Rate [Apical] 83 Pulse Rate from SpO2 Sensor 100 H Pulse Rhythm Pulse Rhythm [Apical] Irregular Respiratory Rate 29 H 20 Respiratory Effort / Characteristics Non-Labored Spontaneous Respiratory Depth Normal Respiratory Pattern Blood Pressure 134/72 Blood Pressure [Right Arm] 175/106 H Blood Pressure Mean Blood Pressure Mean [Right Arm] 129 Blood Pressure Position [Right Arm] Lying Pulse Oximetry 96 96 Oxygen Delivery Method Room Air Oxygen Flow Rate Sepsis Recent Fever Within 48 Hours Sepsis New/Unexplained Change in Mental Status Sepsis Action Taken by Nursing Laboratory Data Result diagrams: 05/07/21 10:05/07/21 10: Lab Results 05/07/21 05/07/21 05/07/21 Range/Units 10: 10: 10: WBC 9.18 (4.8-10.8) K/uL RBC 3.82 L (4.7-6.1) M/uL Hgb 11.9 L (14.0-18.0) g/dL Hct 36.2 L (42-52) % MCV 94.8 (80-100) fL MCH 31.2 (25-34) pg MCHC 32.9 (32-36) g/dL RDW Std Deviation 54.3 H (36.4-46.3) fL RDW Coeff of [place] 15.5 H (11.5-14.5) % Plt Count 164 (130-400) K/uL MPV 11.8 H (7.4-10.4) fL Immature Gran % (Auto) 0.1 % Neut % (Auto) 79.8 % Lymph % (Auto) 9.3 % [place] % (Auto) 8.9 % Eos % (Auto) 1.6 % Baso % (Auto) 0.3 % Neut # (Auto) 7.32 H (1.4-6.5) K/uL Lymph # (Auto) 0.85 L (1.2-3.4) K/uL [place] # (Auto) 0.82 H (0.11-0.59) K/uL Eos # (Auto) 0.15 (0-0.5) K/uL Baso # (Auto) 0.03 (0-0.2) K/uL Immature Gran # (Auto) 0.01 (0.00-0.02) K/uL PT 10.5 (9.0-12.0) Seconds INR 1.0 (0.9-1.1) APTT 24.5 (21.0-31.0) Seconds PTT Ratio 0.9 Sodium 144 (136-145) mmol/L Potassium 3.2 L (3.5-5.1) mmol/L Chloride 111 H (98-107) mmol/L Carbon Dioxide 23 (21-32) mmol/L Anion Gap 10.0 (3-11) BUN 15 (7-18) mg/dl Creatinine 1.31 (0.6-1.4) mg/dl Est Cr Clr Drug Dosing 54.8 ml/min Est GFR ( Amer) 58.8 ml/min Est GFR (Non-Af Amer) 50.7 ml/min BUN/Creatinine Ratio 11.4 (10-20) Glucose 104 H (70-99) mg/dl Calcium 7.8 L (8.5-10.1) mg/dl Total Bilirubin 0.8 (0.2-1) mg/dl AST 14 L (15-37) U/L ALT 18 (12-78) U/L Alkaline Phosphatase 64 (45-117) U/L Troponin I 0.018 (0-0.045) ng/ml Total Protein 5.6 L (6.4-8.2) gm/dl Albumin 3.0 L (3.4-5.0) gm/dl Globulin 2.6 (2.5-4.0) gm/dl Albumin/Globulin Ratio 1.2 (0.9-2) Lipase 156 (73-393) U/L COVID-19 Eval Order SARS-CoV-2 (PCR) (Negative) 05/07/21 05/07/21 Range/Units 12:25 12:25 WBC (4.8-10.8) K/uL RBC (4.7-6.1) M/uL Hgb (14.0-18.0) g/dL Hct (42-52) % MCV (80-100) fL MCH (25-34) pg MCHC (32-36) g/dL RDW Std Deviation (36.4-46.3) fL RDW Coeff of [place] (11.5-14.5) % Plt Count (130-400) K/uL MPV (7.4-10.4) fL Immature Gran % (Auto) % Neut % (Auto) % Lymph % (Auto) % [place]he % (Auto) % Eos % (Auto) % Baso % (Auto) % Neut # (Auto) (1.4-6.5) K/uL Lymph # (Auto) (1.2-3.4) K/uL [place]he # (Auto) (0.11-0.59) K/uL Eos # (Auto) (0-0.5) K/uL Baso # (Auto) (0-0.2) K/uL Immature Gran # (Auto) (0.00-0.02) K/uL PT (9.0-12.0) Seconds INR (0.9-1.1) APTT (21.0-31.0) Seconds PTT Ratio Sodium (136-145) mmol/L Potassium (3.5-5.1) mmol/L Chloride (98-107) mmol/L Carbon Dioxide (21-32) mmol/L Anion Gap (3-11) BUN (7-18) mg/dl Creatinine (0.6-1.4) mg/dl Est Cr Clr Drug Dosing ml/min Est GFR ( Amer) ml/min Est GFR (Non-Af Amer) ml/min BUN/Creatinine Ratio (10-20) Glucose (70-99) mg/dl Calcium (8.5-10.1) mg/dl Total Bilirubin (0.2-1) mg/dl AST (15-37) U/L ALT (12-78) U/L Alkaline Phosphatase (45-117) U/L Troponin I (0-0.045) ng/ml Total Protein (6.4-8.2) gm/dl Albumin (3.4-5.0) gm/dl Globulin (2.5-4.0) gm/dl Albumin/Globulin Ratio (0.9-2) Lipase (73-393) U/L COVID-19 Eval Order Covid19 at [facility] SARS-CoV-2 (PCR) NEGATIVE (Negative) Administered Medications Discontinued Medications Diltiazem HCl (Diltiazem Hcl 5 Mg/Ml 5 Ml Vial) 10 mg IV NOW STA Stop: 05/07/21 10:22 Last Admin: 05/07/21 15:15 Dose: Not Given Documented by: [id number] Sodium Chloride (Nss 1000ml) 500 mls @ 999 mls/hr IV .Q31M ONE Stop: 05/07/21 10:24 Last Admin: 05/07/21 10:08 Dose: 999 mls/hr Documented by: [id number] Potassium Chloride (K [place] / Wtr) 10 meq in 100 mls @ 100 mls/hr IV ONE ONE Stop: 05/07/21 14:29 Last Admin: 05/07/21 15:15 Dose: Not Given Documented by: [id number] Metoprolol Tartrate (Metoprolol Tartrate 1 Mg/Ml Vial) Confirm Administered Dose 5 mg IV .STK-MED ONE Stop: 05/07/21 13:51 Last Admin: 05/07/21 14:02 Dose: Not Given Documented by: [id number] Metoprolol Tartrate (Metoprolol Tartrate 1 Mg/Ml Vial) 2.5 mg IV NOW STA Stop: 05/07/21 13:58 Last Admin: 05/07/21 14:02 Dose: 2.5 mg Documented by: [id number] Potassium Chloride (Potassium Chloride Crtab 20 Meq Tabcr) 40 meq PO NOW STA Stop: 05/07/21 13:20 Last Admin: 05/07/21 15:59 Dose: 40 meq Documented by: [id number] Potassium Chloride (Potassium Chloride 10 Meq / 100ml Wtr) Confirm Administered Dose 10 meq IV .STK-MED ONE Stop: 05/07/21 13:17 Last Admin: 05/07/21 14:02 Dose: 10 meq Documented by: [id number] Imaging Data Radiologist's Impression: Chest X-Ray 05/07/21 09:45 XR chest 1V portable CLINICAL HISTORY: Atypical chest pain. COMPARISON STUDY: Chest CT May 16, 2020. Chest radiograph September 05, 2020. FINDINGS: Cardiomegaly is unchanged. There is mild elevation of the right hemidiaphragm, unchanged. No pneumothorax or pleural effusion is noted. No consolidation is identified. There is no evidence for overt pulmonary edema. IMPRESSION: No acute cardiopulmonary findings. ACT 112: Negative or not required by law. Electronically signed by: Kyler Lim M.D. 05/07/2021 10:27 AM Discharge Plan Visit Data Chief Complaint: Arrhythmia/Palpitations Stated Complaint: HIGH HEART RATE,REF BY DOC ED Provider: Amadeo Moreno Discharge Problem: Atrial fibrillation with rapid ventricular response Patient Disposition: Admitted As Inpatient Discharge Instructions Interventions: ED Discharge Assessment Last Done: 05/07/21 13:15
--- NOTE | 2021-05-07 10:10 | Anesthesiology Consultation ---
Date of Service May 07, 2021 Assessment & Plan (1) Encounter for pre-operative examination: Chart Review Chart Review: Acceptable Risk for Surgery History Height/Weight Height: 5 ft 7 in Weight: 119.7 kg Allergies Allergy/AdvReac Type Severity Reaction Status Date / Time No Known Allergies Allergy Verified 05/07/21 10:03 Medications Home Medications Medication Instructions Recorded Confirmed Last Taken allopurinol 300 mg tablet 300 mg PO QAM 04/30/18 05/07/21 05/07/21 atorvastatin 10 mg tablet 5 mg PO QAM 04/30/18 05/07/21 05/07/21 cholecalciferol (vitamin D3) 50 2,000 unit PO QAM 04/30/18 05/07/21 05/06/21 mcg (2,000 unit) capsule (Vitamin D3) citalopram 20 mg tablet (Celexa) 20 mg PO QAM 04/30/18 05/07/21 05/07/21 hydralazine 50 mg tablet 25 mg PO TID 04/30/18 05/07/21 05/07/21 omeprazole 40 mg capsule,delayed 40 mg PO HS 04/30/18 05/07/21 05/06/21 release terazosin 5 mg capsule 5 mg PO HS 04/30/18 05/07/21 05/06/21 carvedilol 3.125 mg tablet 3.125 mg PO BID 09/18/18 05/07/21 05/07/21 levothyroxine 112 mcg tablet 112 mcg PO QAM 05/22/19 05/07/21 05/07/21 furosemide 20 mg tablet (Lasix) 20 mg PO DAILY PRN tab 08/16/19 05/07/21 Unknown aspirin 81 mg tablet,delayed 81 mg PO QAM 03/10/20 05/07/21 05/07/21 release spironolactone 25 mg tablet 25 mg PO QAM 03/10/20 05/07/21 05/07/21 acyclovir 400 mg tablet 400 mg PO BID 05/16/20 05/07/21 05/07/21 calcium carbonate 500 mg calcium 500 mg PO BID 05/16/20 05/07/21 05/06/21 (1,250 mg) tablet (Calcium 500) apixaban 5 mg tablet (Eliquis) 5 mg PO BID 03/08/2705/07/21 05/07/21 vancomycin 125 mg capsule 125 mg PO TID 09/05/20 05/07/21 05/07/21 Past Medical History Medical History BPH without obstruction/lower urinary tract symptoms Carpal tunnel syndrome CKD (chronic kidney disease), stage III Diastolic heart failure GERD (gastroesophageal reflux disease) Gout History of cardiac arrhythmia History of paroxysmal supraventricular tachycardia Hyperlipidemia Hypertension Insomnia LBBB (left bundle branch block) Monoclonal paraproteinemia Morbid (severe) obesity due to excess calories Neuralgia ON SIDE OF FACE Nonobstructive atherosclerosis of coronary artery By 05/2010 catheterization Obstructive sleep apnea on CPAP Paroxysmal SVT (supraventricular tachycardia) Pneumonia Hospitalized Jun 2018 after failing OP treatment. SVT in setting of hypokalemia noted during that admission. Admitted again to [facility] 07/28-07/30/18 for pneumonia with hypoxia. No arrhythmia noted. Lungs CTA B/L on exam at PAT 09/25. Prolonged QT interval Restless leg syndrome Sepsis Past Family History Family History Father Heart disease Mother Diabetes Hypertension Brother Family hx of colon cancer Past Surgical History Surgical History H/O cataract removal with insertion of prosthetic lens H/O knee surgery H/O sinus surgery History of appendectomy History of bilateral knee arthroplasty History of cataract surgery RT/LEFT History of colonoscopy History of esophagogastroduodenoscopy (EGD) History of hip surgery History of tooth extraction History of total right hip arthroplasty Hx of cholecystectomy Status post total hip replacement, left Social History Smoking Status: Never smoker Hx Alcohol Use: No Hx Substance Use: No substance use type: does not use Physical Exam Vital Signs Last Vital Signs Temp 36.9 C 05/07/21 09:31 Pulse 124 H 05/07/21 10:02 Resp 24 05/07/21 10:02 BP 110/83 05/07/21 10:02 Pulse Ox 96 05/07/21 10:02 Testing Electrocardiogram Date: 05/07/21 Findings: + AFIB @ intraventricular conduction delay Echocardiogram Date: 05/17/20 EF: 60-65% LV Function: normal Valvular Disease: + no significant valvular disease
[2021-05-07 10:14] LABS: Basophils # (auto) 0.03 K/uL (0-0.2); Basophils % (auto) 0.3 %; Eosinophils # (auto) 0.15 K/uL (0-0.5); Eosinophils % (auto) 1.6 %; Hematocrit (blood only) 36.2 % (42-52); Hemoglobin 11.9 g/dL (14.0-18.0); Immature Granulocytes # (auto) 0.01 K/uL (0.00-0.02); Immature Granulocytes % (auto) 0.1 %; Lymphocytes # (auto) 0.85 K/uL (1.2-3.4); Lymphocytes % (auto) 9.3 %; Mean Corpuscular Hemoglobin 31.2 pg (25-34); Mean Corpuscular Hgb Conc 32.9 g/dL (32-36); Mean Corpuscular Volume 94.8 fL (80-100); Mean Platelet Volume 11.8 fL (7.4-10.4); Monocytes # (auto) 0.82 K/uL (0.11-0.59); Monocytes % (auto) 8.9 %; Neutrophils # (auto) 7.32 K/uL (1.4-6.5); Neutrophils % (auto) 79.8 %; Platelet Count 164 K/uL (130-400); RDW Coefficient of Variation 15.5 % (11.5-14.5); RDW Standard Deviation 54.3 fL (36.4-46.3); Red Blood Count 3.82 M/uL (4.7-6.1); White Blood Count 9.18 K/uL (4.8-10.8)
[2021-05-07] MEDS ORDERED: dilTIAZem HCl 5 MG/ML 5 ML VIAL IV STA (10:21)
[2021-05-07 10:25] LABS: Partial Thromboplastin Ratio 0.9; Partial Thromboplastin Time 24.5 Seconds (21.0-31.0); Prothrombin Time 10.5 Seconds (9.0-12.0)
--- NOTE | 2021-05-07 10:28 | XRay Report ---
XR chest 1V portable CLINICAL HISTORY: Atypical chest pain. COMPARISON STUDY: Chest CT May 16, 2020. Chest radiograph September 05, 2020. FINDINGS: Cardiomegaly is unchanged. There is mild elevation of the right hemidiaphragm, unchanged. N o pneumothorax or pleural effusion is noted. No consolidation is identified. There is no evidence for overt pulmonary edema. IMPRESSION: No acute cardiopulmonary findings. ACT 112: Negative or not required by law. Electronically signed by: Kyler Lim M.D. 05/07/2021 10:27 AM
[2021-05-07 10:33] LABS: BUN Creatinine Ratio 11.4 (10-20); Calcium 7.8 mg/dl (8.5-10.1); Creatinine Clr Calc Pharmacy 54.8 ml/min; Est GFR (African American) 58.8 ml/min; Est GFR (Non-African American) 50.7 ml/min; Potassium 3.2 mmol/L (3.5-5.1)
[2021-05-07 10:38] LABS: Albumin Globulin Ratio 1.2 (0.9-2); Bilirubin,Total 0.8 mg/dl (0.2-1); Globulin 2.6 gm/dl (2.5-4.0); Total Protein 5.6 gm/dl (6.4-8.2); Troponin I 0.018 ng/ml (0-0.045)
--- NOTE | 2021-05-07 13:06 | Cardiology Consultation ---
Date of Consultation May 07, 2021 Assessment & Plan (1) Atrial fibrillation: (2) LBBB (left bundle branch block): (3) Diastolic heart failure: (4) Hypokalemia: CXR without any acute abnormalities. Patient with newly recognized atrial fibrillation, of unknown duration. He is already on chronic anticoagulation given his history of pulmonary embolism, and has not missed any recent doses. Recommend replacement of his potassium, I have ordered a dose of potassium chloride 40 mEq p.o. x1. Await Covid-19 screen, if negative, will proceed with direct-current cardioversion. Anticipate need for admission for further observation of his heart rate and rhythm given his history of left bundle branch block, and consideration of need of possible diuretic therapy. Case discussed with Dr Reardon, Dr Moreno, and ASHER Wynne to coodianate care. Plan discussed with patient's nurse. History of Present Illness History of Present Illness Corwin Dolan is an 81 year old male seen in cardiology consultation in the ED per the request of Dr Reardon and Dr Moreno for the evaluation of symptomatic atrial fibrillation with rapid ventricular response. The patient is seen in room A12B . He is accompanied by his daughter. For several days he has had progressive fatigue and shortness of breath with minimal exertion. He had therefore been seen today as an outpatient for an echocardiogram. He was found to have severe left atrial enlargement and low normal LVEF. The septal wall motion was abnormal consistent with the patient's history of chronic left bundle branch block, with normal wall motion noted otherwise, the calculated left ventricular ejection fraction was 54%. He was found to be in atrial fibrillation with rapid ventricular response, approximate 130 bpm. He was referred to the emergency department. On arrival, a wide-complex tachycardia with an irregular R to R interval was noted in the 130s, and per my personal interpretation believe this is consistent with atrial fibrillation rather than a ventricular arrhythmia, with underlying left bundle branch block. The patient's ventricular rate has settled down to the 80s to 90s at present, he is in no acute distress. He is chronically anticoagulated with Eliquis given his history of pulmonary embolism and has not missed any recent doses. His most recent dose was taken this morning. He has been n.p.o. for over 12 hours. 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 5.Asymptomatic ventricular ectopy 6.Mild bilateral internal carotid artery disease. 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 11.History of left pleural effusion related to heart failure versus other. Status post left PleurX catheter placement with removal on July 27, 2019 12.NAHEED treated with CPAP 13.Hypothyroidism 14.Hospitalization in May 2020 with right lower extremity DVT and extensive PEs. Course complicated by C difficile infection. Allergies Allergy/AdvReac Type Severity Reaction Status Date / Time No Known Allergies Allergy Verified 05/07/21 10:03 Home Medications Medication Instructions Recorded Confirmed Type allopurinol 300 mg tablet 300 mg PO QAM 04/30/18 05/07/21 History atorvastatin 10 mg tablet 5 mg PO QAM 04/30/18 05/07/21 History cholecalciferol (vitamin D3) 50 2,000 unit PO QAM 04/30/18 05/07/21 History mcg (2,000 unit) capsule (Vitamin D3) citalopram 20 mg tablet (Celexa) 20 mg PO QAM 04/30/18 05/07/21 History hydralazine 50 mg tablet 25 mg PO TID 04/30/18 05/07/21 History omeprazole 40 mg capsule,delayed 40 mg PO HS 04/30/18 05/07/21 History release terazosin 5 mg capsule 5 mg PO HS 04/30/18 05/07/21 History carvedilol 3.125 mg tablet 3.125 mg PO BID 09/18/18 05/07/21 History levothyroxine 112 mcg tablet 112 mcg PO QAM 05/22/19 05/07/21 History furosemide 20 mg tablet (Lasix) 20 mg PO DAILY PRN tab 08/16/19 05/07/21 History aspirin 81 mg tablet,delayed 81 mg PO QAM 03/10/20 05/07/21 History release spironolactone 25 mg tablet 25 mg PO QAM 03/10/20 05/07/21 History acyclovir 400 mg tablet 400 mg PO BID 05/16/20 05/07/21 History calcium carbonate 500 mg calcium 500 mg PO BID 05/16/20 05/07/21 History (1,250 mg) tablet (Calcium 500) apixaban 5 mg tablet (Eliquis) 5 mg PO BID 09/05/20 05/07/21 History vancomycin 125 mg capsule 125 mg PO TID 09/05/20 05/07/21 History Patient History Medical History BPH without obstruction/lower urinary tract symptoms Carpal tunnel syndrome CKD (chronic kidney disease), stage III Diastolic heart failure GERD (gastroesophageal reflux disease) Gout History of cardiac arrhythmia History of paroxysmal supraventricular tachycardia Hyperlipidemia Hypertension Insomnia LBBB (left bundle branch block) Monoclonal paraproteinemia Morbid (severe) obesity due to excess calories Neuralgia ON SIDE OF FACE Nonobstructive atherosclerosis of coronary artery By 05/2010 catheterization Obstructive sleep apnea on CPAP Paroxysmal SVT (supraventricular tachycardia) Pneumonia Hospitalized Jun 2018 after failing OP treatment. SVT in setting of hypokalemia noted during that admission. Admitted again to [facility] 07/28-07/30/18 for pneumonia with hypoxia. No arrhythmia noted. Lungs CTA B/L on exam at PAT 09/25. Prolonged QT interval Restless leg syndrome Sepsis Surgical History H/O cataract removal with insertion of prosthetic lens H/O knee surgery H/O sinus surgery History of appendectomy History of bilateral knee arthroplasty History of cataract surgery RT/LEFT History of colonoscopy History of esophagogastroduodenoscopy (EGD) History of hip surgery History of tooth extraction History of total right hip arthroplasty Hx of cholecystectomy Status post total hip replacement, left Family History Father Heart disease Mother Diabetes Hypertension Brother Family hx of colon cancer Social History Smoking Status: Never smoker Second Hand Exposure: No; Hx Alcohol Use: No Hx Substance Use: No Preferred Language: Mohawk Communication Ability: Effective Metal Mixer Required: No Beliefs That Will Affect Care: None marital status: Current Living Situation: Spouse How many Children do You have: 1 Feels Safe at Home: Yes Assistive Devices: Cane, CPAP, Denture - Upper and Glasses Review of Systems Review of Systems: All systems reviewed & are unremarkable except as noted in HPI & below Physical Exam Physical Exam: Temp Pulse Resp BP Pulse Ox 36.9 C 92 H 28 H 110/83 97 05/07/21 09:31 05/07/21 11:10 05/07/21 11:10 05/07/21 10:02 05/07/21 11:10 Constitutional: + obese; no acute distress Respiratory: mildly decreased BS at the bases Cardiovascular: Rate/Rhythm: + tachycardic and + irregularly irregular Heart Sounds: no murmur Extremities: + edema (trace to 1+ bilateral LE edema ) Neurologic: PERRL, EOMI, accommodation nl, no face palsy, no dysarthria Results & Data ([facility]) Vital Signs (Past 12 Hours) Vital Signs Temp Pulse Pulse Resp BP BP Pulse Ox 05/07/21 11:10 92 H 28 H 97 05/07/21 11:00 126 H 16 98 05/07/21 10:50 125 H 20 96 05/07/21 10:40 120 H 21 96 05/07/21 10:30 124 H 28 H 97 05/07/21 10:20 157 H 26 H 95 05/07/21 10:10 123 H 26 H 96 05/07/21 10:02 133 H 124 H 24 110/83 96 05/07/21 10:00 129 H 29 H 05/07/21 09:50 131 H 30 H 05/07/21 09:46 137 H 24 05/07/21 09:31 36.9 C 82 18 132/82 97 Laboratory Results Cardiac Enzymes 05/07/21 Range/Units 10:01 AST 14 L (15-37) U/L Troponin I 0.018 (0-0.045) ng/ml Coagulation 05/07/21 Range/Units 10:01 PT 10.5 (9.0-12.0) Seconds APTT 24.5 (21.0-31.0) Seconds CBC 05/07/21 Range/Units 10:01 WBC 9.18 (4.8-10.8) K/uL RBC 3.82 L (4.7-6.1) M/uL Hgb 11.9 L (14.0-18.0) g/dL Hct 36.2 L (42-52) % Plt Count 164 (130-400) K/uL Neut # (Auto) 7.32 H (1.4-6.5) K/uL Lymph # (Auto) 0.85 L (1.2-3.4) K/uL [place] # (Auto) 0.82 H (0.11-0.59) K/uL Eos # (Auto) 0.15 (0-0.5) K/uL Baso # (Auto) 0.03 (0-0.2) K/uL Comprehensive Metabolic Panel 05/07/21 Range/Units 10:01 Sodium 144 (136-145) mmol/L Potassium 3.2 L (3.5-5.1) mmol/L Chloride 111 H (98-107) mmol/L Carbon Dioxide 23 (21-32) mmol/L BUN 15 (7-18) mg/dl Creatinine 1.31 (0.6-1.4) mg/dl Glucose 104 H (70-99) mg/dl Calcium 7.8 L (8.5-10.1) mg/dl AST 14 L (15-37) U/L ALT 18 (12-78) U/L Alkaline Phosphatase 64 (45-117) U/L Total Protein 5.6 L (6.4-8.2) gm/dl Albumin 3.0 L (3.4-5.0) gm/dl Intake and Output 05/06/21 05/07/21 05/07/21 22:59 06:59 14:59 Other: Weight 119.7 kg Weight Measurement Method Built in [facility] Patient Weight 05/08/21 06:59 Weight 119.7 kg Diagnostic Findings Summary of outpatient echocardiogram performed today 05/07/2021: Normal LV chamber size with moderate concentric LVH. Abnormal septal wall motion consistent with left bundle branch block pattern, otherwise, normal wall motion. Calculated LV ejection Fraction = 54% (bi-plane method of discs). Mild mitral regurgitation. Severe left atrial enlargement. A small anterior loculated pericardial effusion is present.
[2021-05-07] MEDS ORDERED: POTASSIUM CHLORIDE 10 MEQ / 100ML WTR IV ONE (13:16)
[2021-05-07] MEDS ORDERED: POTASSIUM CHLORIDE CRTAB 20 MEQ TABCR PO STA (13:19)
[2021-05-07] MEDS ORDERED: PROPOFOL IV EMULSION 10 MG/ML 20 ML VIAL IV ONE (13:29)
[2021-05-07] MEDS ORDERED: POTASSIUM CHLORIDE / WTR 10 MEQ/100 ML PLCT IV ONE (13:30)
[2021-05-07] MEDS ORDERED: METOPROLOL TARTRATE 1 MG/ML VIAL IV ONE (13:50)
[2021-05-07] MEDS ORDERED: METOPROLOL TARTRATE 1 MG/ML VIAL IV STA (13:57)
--- NOTE | 2021-05-07 13:59 | Anesthesiology Progress Note ---
Date of Service May 07, 2021 Anesthesia Post Procedure Vital Signs Vital Signs: Temp Pulse Pulse Resp BP BP Pulse Ox 05/07/21 13:15 36.7 C 89 83 20 134/72 175/106 H 96 05/07/21 13:00 100 H 29 H 96 05/07/21 12:50 98 H 24 98 05/07/21 12:40 95 H 23 97 05/07/21 12:30 175 H 29 H 97 05/07/21 12:20 104 H 22 91 05/07/21 12:10 84 96 05/07/21 12:00 87 96 05/07/21 11:50 85 97 05/07/21 11:40 93 H 97 05/07/21 11:30 96 H 97 05/07/21 11:10 92 H 28 H 97 05/07/21 11:00 126 H 16 98 05/07/21 10:50 125 H 20 96 05/07/21 10:40 120 H 21 96 05/07/21 10:30 124 H 28 H 97 05/07/21 10:20 157 H 26 H 95 05/07/21 10:10 123 H 26 H 96 05/07/21 10:02 133 H 124 H 24 110/83 96 05/07/21 10:00 129 H 29 H 05/07/21 09:50 131 H 30 H 05/07/21 09:46 137 H 24 05/07/21 09:31 36.9 C 82 18 132/82 97 Transfer of Care Handoff Completed per policy Notes Mental Status: alert / awake / arousable and participated in evaluation Patient Amnestic to Procedure: Yes Nausea / Vomiting: adequately controlled Pain: adequately controlled Airway Patency, RR, SpO2: stable & adequate BP & HR: stable & adequate Hydration State: stable & adequate Anesthetic Complications: no major complications apparent and Pt Satisfied with anesthetic care
--- NOTE | 2021-05-07 14:02 | Cardioversion ---
Date of Service May 07, 2021 Electrical Cardioversion Rpt Electrical Cardioversion Report Preprocedure diagnosis: symptomatic atrial fibrillation left bundle branch block Post procedure diagnosis: Successful conversion to sinus rhythm. Procedure note, direct-current cardioversion: After informed consent was obtained and a timeout was performed the patient was sedated with the assistance of the anesthesia service receiving a total of 50 mg of IV propofol. The patient's vital signs and pulse oximetry were monitored via the standard fashion. Patient underwent direct-current cardioversion receiving a single dose of 200 J of synchronized biphasic energy with successful conversion from atrial fibrillation in the range of 80 to 90 bpm to sinus rhythm at 67 bpm with frequent supraventricular and ventricular ectopic beats. Assistants: None Blood loss: None Disposition: Patient is to be admitted to the bed is available for ongoing care. Case was discussed with the [facility] service.
--- NOTE | 2021-05-07 14:14 | Post Operative Brief Note ---
Cardiology Brief Post Op Date of Surgery May 07, 2021 Pre & Post Diagnosis Preprocedure diagnosis: Symptomatic atrial fibrillation, left bundle branch block Post procedure diagnosis: Successful conversion to sinus rhythm with frequent supraventricular and ventricular ectopic beats Operation Date: 05/07/21 13:00 Procedure Direct-current cardioversion: After informed consent was obtained and timeout was performed the patient was sedated with the assistance of the anesthesia service receiving a total of 50 mg of IV propofol. The patient vital signs and pulse oximetry were monitored via the standard fashion. The patient received a single dose of 200 J of synchronized biphasic energy with successful conversion to sinus rhythm. EKG post procedure revealed sinus rhythm with first-degree AV block, left bundle branch block, and frequent premature ventricular contractions versus premature atrial contractions with aberrant conduction. Home Administrator Kvng Galindo DO Horse Buyer none Estimated Blood Loss 0 Findings Consistent with Post-Op Diagnosis as noted above Anesthesia Type MAC Complications none
--- NOTE | 2021-05-07 14:35 | History & Physical Report ---
Date of Service May 07, 2021 Assessment & Plan (1) Atrial fibrillation with rapid ventricular response: Plan: -Admit to telemetry -Patient presenting by referral of outpatient performance test architect after echocardiogram demonstrated A. fib with RVR and borderline hypotension -Patient reports fatigue, worsening exertional shortness of breath, and lower extremity edema x 2 weeks -Given the patient is anticoagulated on Eliquis for prior history of pulmonary embolism and has been compliant with doses, patient was taken for BENJIE guided cardioversion today with successful conversion to NSR -EF 54% on outpatient echo today -Case discussed with Dr. Galindo -Change metoprolol succinate 25 mg daily to metoprolol tartrate 25 mg twice daily, making adjustments as needed -Continue Eliquis (2) Acute on chronic diastolic CHF (congestive heart failure): Plan: -Likely due to A. 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: Plan: -[facility] -Currently receiving monthly daratumumab (7) CKD (chronic kidney disease), stage III: Plan: -Baseline creatinine runs in the low to mid 1's -Creat 1.3 today -Monitor renal functions (8) Obstructive sleep apnea on CPAP: Plan: -CPAP as per home settings (9) DVT prophylaxis: Plan: -On Eliquis History of Present Illness Chief Complaint: Atrial fibrillation Primary Care Provider: Musa Stout MD 81-year-old male with PMH hypothyroidism, nonobstructive CAD per cardiac cath 05/2020, history of pericardial effusion, chronic diastolic CHF, LBBB, HTN, CKD stage III, history of left pleural effusion, GERD, BPH, history of recurrent C. difficile infection, NAHEED on CPAP, lambda light chain multiple myeloma and monoclonal B lymphocytosis, history of pulmonary embolism anticoagulated on Eliquis, and other problems listed below who presents to the ED by referral of outpatient performance test architect for evaluation of A. fib with RVR and hypotension. Patient notes that for the past 2 weeks, he has had worsening exertional shortness of breath and fatigue. Also noted increased lower extremity edema. Patient was referred for outpatient echo today and was found to be in A. fib with RVR with borderline low BPs. Patient was referred to the ED for further evaluation. Patient denies chest pain and palpitations. No lightheadedness, di zziness, diaphoresis, syncopal events. Denies any other recent illnesses, fevers, chills. No abdominal pain, nausea, vomiting, diarrhea. Denies urinary symptoms. Patient was taken to the cardiac Petrol Tanker Driver directly from the ED for BENJIE guided cardioversion. Patient was seen and examined post procedure in the cardiac Petrol Tanker Driver recovery area. He reports he is feeling well and offers no complaints. Labs obtained in the ED were essentially unremarkable with the exception of mild hypokalemia with potassium 3.2. Allergies Allergy/AdvReac Type Severity Reaction Status Date / Time No Known Allergies Allergy Verified 05/07/21 10:03 Home Medications Medication Instructions Recorded Confirmed Type allopurinol 300 mg tablet 300 mg PO QAM 04/30/18 05/07/21 History atorvastatin 10 mg tablet 5 mg PO QAM 04/30/18 05/07/21 History cholecalciferol (vitamin D3) 50 2,000 unit PO QAM 04/30/18 05/07/21 History mcg (2,000 unit) capsule (Vitamin D3) citalopram 20 mg tablet (Celexa) 20 mg PO QAM 04/30/18 05/07/21 History hydralazine 50 mg tablet 25 mg PO TID 04/30/18 05/07/21 History omeprazole 40 mg capsule,delayed 40 mg PO HS 04/30/18 05/07/21 History release terazosin 5 mg capsule 5 mg PO HS 04/30/18 05/07/21 History levothyroxine 112 mcg tablet 112 mcg PO QAM 05/22/19 05/07/21 History furosemide 20 mg tablet (Lasix) 20 mg PO DAILY tab 08/16/19 05/07/21 History aspirin 81 mg tablet,delayed 81 mg PO QAM 03/10/20 05/07/21 History release spironolactone 25 mg tablet 25 mg PO QAM 03/10/20 05/07/21 History acyclovir 400 mg tablet 400 mg PO BID 05/16/20 05/07/21 History calcium carbonate 500 mg calcium 500 mg PO BID 05/16/20 05/07/21 History (1,250 mg) tablet (Calcium 500) apixaban 5 mg tablet (Eliquis) 5 mg PO BID 09/05/20 05/07/21 History metoprolol succinate 25 mg 25 mg PO DAILY 05/07/21 05/07/21 History tablet,extended release 24 hr montelukast 10 mg tablet 10 mg PO DAILY 05/07/21 05/07/21 History Past Med/Surg History Medical History BPH without obstruction/lower urinary tract symptoms Carpal tunnel syndrome Chronic diastolic CHF (congestive heart failure) Chronic sinusitis CKD (chronic kidney disease), stage III Escherichia coli infection GERD (gastroesophageal reflux disease) Gout History of paroxysmal supraventricular tachycardia History of pulmonary embolism Hyperlipidemia Hypertension Insomnia Klebsiella infection Lambda light chain myeloma LBBB (left bundle branch block) Monoclonal B-cell lymphocytosis Morbid (severe) obesity due to excess calories Neuralgia ON SIDE OF FACE Nonobstructive atherosclerosis of coronary artery By 05/2010 catheterization Obstructive sleep apnea on CPAP Pericardial effusion Pleural effusion, left Prolonged QT interval Recurrent Clostridioides difficile infection Restless leg syndrome Surgical History H/O cataract removal with insertion of prosthetic lens H/O knee surgery H/O sinus surgery History of appendectomy History of bilateral knee arthroplasty History of cataract surgery RT/LEFT History of colonoscopy History of esophagogastroduodenoscopy (EGD) History of hip surgery History of tooth extraction History of total right hip arthroplasty Hx of cholecystectomy Status post total hip replacement, left Family History Father Heart disease Mother Diabetes Hypertension Brother Family hx of colon cancer Social History Smoking Status: Never smoker Second Hand Exposure: No; Hx Alcohol Use: No Hx Substance Use: No Preferred Language: Lithuanian Communication Ability: Effective Rehabilitation Liaison Required: No Beliefs That Will Affect Care: None marital status: Current Living Situation: Spouse How many Children do You have: 1 Other Information That Helps Us Care for You: No Feels Safe at Home: Yes Safety Concerns: Feels Safe At This Time Assistive Devices: Cane, CPAP, Denture - Upper and Glasses Review of Systems Review of Systems: ROS per HPI, all other systems reviewed and negative Physical Exam Constitutional: WD/WN, vitals as above Eyes: PERRL, conjunctivae normal, anicteric sclerae ENMT: external ear and nose normal, oropharynx normal Respiratory: normal respiratory effort, lungs clear to auscultation Cardiovascular: Rate/Rhythm: regular rate and regular rhythm Vessels: normal peripheral pulses Extremities: + edema (+1-2 pitting edema BLE) Gastrointestinal (Abdomen): normal bowel sounds, soft, nontender, no hepatosplenomegaly Musculoskeletal: no cyanosis or clubbing, extremities motor strength 5/5 Skin: no rashes, warm and dry Neurologic: PERRL, EOMI, accommodation nl, no face palsy, no dysarthria Psychiatric: A+Ox3, euthymic affect Results & Data Results & Data ([facility]) Vital Signs (Past 12 Hours) Vital Signs Temp Pulse Pulse Resp BP BP Pulse Ox 05/07/21 14:15 72 20 135/88 93 05/07/21 14:02 80 143/67 H 05/07/21 13:55 85 20 149/80 H 100 05/07/21 13:15 36.7 C 89 83 20 134/72 175/106 H 96 05/07/21 13:00 100 H 29 H 96 05/07/21 12:50 98 H 24 98 05/07/21 12:40 95 H 23 97 05/07/21 12:30 175 H 29 H 97 05/07/21 12:20 104 H 22 91 05/07/21 12:10 84 96 05/07/21 12:00 87 96 05/07/21 11:50 85 97 05/07/21 11:40 93 H 97 05/07/21 11:30 96 H 97 05/07/21 11:10 92 H 28 H 97 05/07/21 11:00 126 H 16 98 05/07/21 10:50 125 H 20 96 05/07/21 10:40 120 H 21 96 05/07/21 10:30 124 H 28 H 97 05/07/21 10:20 157 H 26 H 95 05/07/21 10:10 123 H 26 H 96 05/07/21 10:02 133 H 124 H 24 110/83 96 05/07/21 10:00 129 H 29 H 05/07/21 09:50 131 H 30 H 05/07/21 09:46 137 H 24 05/07/21 09:31 36.9 C 82 18 132/82 97 Laboratory Results Short CBC 05/07/21 Range/Units 10:01 WBC 9.18 (4.8-10.8) K/uL Hgb 11.9 L (14.0-18.0) g/dL Hct 36.2 L (42-52) % Plt Count 164 (130-400) K/uL BMP 05/07/21 10:01 Sodium 144 Potassium 3.2 L Chloride 111 H Carbon Dioxide 23 BUN 15 Creatinine 1.31 Glucose 104 H Calcium 7.8 L Cardiac Enzymes 05/07/21 Range/Units 10:01 Troponin I 0.018 (0-0.045) ng/ml Liver Function 05/07/21 Range/Units 10:01 Total Bilirubin 0.8 (0.2-1) mg/dl AST 14 L (15-37) U/L ALT 18 (12-78) U/L Alkaline Phosphatase 64 (45-117) U/L Albumin 3.0 L (3.4-5.0) gm/dl Diagnostic Findings Chest X-Ray 05/07/21 09:45 XR chest 1V portable CLINICAL HISTORY: Atypical chest pain. COMPARISON STUDY: Chest CT May 16, 2020. Chest radiograph September 05, 2020. FINDINGS: Cardiomegaly is unchanged. There is mild elevation of the right hemidiaphragm, unchanged. No pneumothorax or pleural effusion is noted. No consolidation is identified. There is no evidence for overt pulmonary edema. IMPRESSION: No acute cardiopulmonary findings. ACT 112: Negative or not required by law. Electronically signed by: Kyler Lim M.D. 05/07/2021 10:27 AM Code Status & VTE Plan Code Status Patient is a full code as per my discussion with him. VTE Prophylaxis Plan VTE Prophylaxis will be ordered: Yes Supervising Physician Co-Signing Physician Notes Attending addendum: The patient was seen and examined in telemetry unit He came in with symptomatic atrial fibrillation with RVR and is a status post cardioversion Has been feeling much better and denies any more palpitation and/or chest pain On examination Sitting at the edge of the bed without any acute distress Hemodynamically stable with blood pressure on the upper side at 163/92 Chest-decreased breath sound at the bases Heart-S1-S2 regular Abdomen-distended, soft, bowel sound present [id number] edema bilaterally His admission labs, EKG and imaging studies reviewed AAline black with RVR status post cardioversion to sinus rhythm Ongoing anticoagulation Agree with assessment and plan as outlined above by Shannon Parker
[2021-05-07] MEDS ORDERED: ACETAMINOPHEN 325 MG TAB PO PRN (17:35)
[2021-05-07] MEDS ORDERED: FUROSEMIDE 40 MG/4 ML VIAL IV ONE (17:51)
[2021-05-07] MEDS ORDERED: FUROSEMIDE INJ 20 MG/2 ML VIAL IV ONE (18:30)
[2021-05-07] MEDS: CALCIUM CARBONATE 1250MG TAB PO SCH (20:48)
[2021-05-07] MEDS: hydrALAZINE HCL 25 MG TAB PO SCH (20:48)
[2021-05-07] MEDS: APIXABAN 5 MG TABLET PO SCH (20:49)
[2021-05-07] MEDS: ACYCLOVIR 400 MG TAB PO SCH (20:49)
[2021-05-07] MEDS: METOPROLOL TARTRATE 25 MG TAB PO SCH (20:50)
[2021-05-07] MEDS ORDERED: TERAZOSIN HCL 5 MG CAP PO SCH (21:00)
[2021-05-07] MEDS ORDERED: PANTOprazole 40 MG TAB PO SCH (21:00)
[2021-05-07] MEDS ORDERED: LOPERAMIDE HCL 2 MG CAP PO STA (21:25)
[2021-05-08] MEDS ORDERED: LEVOTHYROXINE SODIUM 112 MCG TABLET PO SCH (06:30)
[2021-05-08 07:08] LABS: Basophils # (auto) 0.05 K/uL (0-0.2); Basophils % (auto) 0.8 %; Eosinophils # (auto) 0.19 K/uL (0-0.5); Eosinophils % (auto) 2.9 %; Hematocrit (blood only) 34.8 % (42-52); Hemoglobin 11.4 g/dL (14.0-18.0); Immature Granulocytes # (auto) 0.02 K/uL (0.00-0.02); Immature Granulocytes % (auto) 0.3 %; Lymphocytes # (auto) 0.87 K/uL (1.2-3.4); Lymphocytes % (auto) 13.1 %; Mean Corpuscular Hemoglobin 31.2 pg (25-34); Mean Corpuscular Hgb Conc 32.8 g/dL (32-36); Mean Corpuscular Volume 95.3 fL (80-100); Mean Platelet Volume 12.9 fL (7.4-10.4); Monocytes # (auto) 0.67 K/uL (0.11-0.59); Monocytes % (auto) 10.1 %; Neutrophils # (auto) 4.83 K/uL (1.4-6.5); Neutrophils % (auto) 72.8 %; Platelet Count 171 K/uL (130-400); RDW Coefficient of Variation 15.6 % (11.5-14.5); RDW Standard Deviation 54.5 fL (36.4-46.3); Red Blood Count 3.65 M/uL (4.7-6.1); White Blood Count 6.63 K/uL (4.8-10.8)
[2021-05-08 08:59] LABS: BUN Creatinine Ratio 11.5 (10-20); Calcium 8.2 mg/dl (8.5-10.1); Est GFR (African American) 55.7 ml/min
[2021-05-08] MEDS: hydrALAZINE HCL 25 MG TAB PO SCH ×2 (09:00→14:41)
[2021-05-08] MEDS ORDERED: ATORVASTATIN 10 MG TAB PO SCH (09:00)
[2021-05-08] MEDS ORDERED: allopurinoL 300 MG TAB PO SCH (09:00)
[2021-05-08] MEDS ORDERED: ASPIRIN 81 MG ECTAB PO SCH (09:00)
[2021-05-08] MEDS ORDERED: CITALOPRAM 20 MG TAB PO SCH (09:00)
[2021-05-08] MEDS ORDERED: SPIRONOLACTONE 25 MG TAB PO SCH (09:00)
[2021-05-08] MEDS ORDERED: MONTELUKAST SODIUM 10 MG TABLET PO SCH (09:00)
--- NOTE | 2021-05-08 09:06 | Electrocardiogram Report ---
Test Reason : Blood Pressure : / mmHG Vent. Rate : 070 BPM Atrial Rate : 070 BPM P-R Int : 272 ms QRS Dur : 146 ms QT Int : 498 ms P-R-T Axes : 074 -24 122 degrees QTc Int : 537 ms Sinus rhythm with 1st degree A-V block with Premature atrial complexes Left bundle branch block Abnormal ECG When compared with ECG of 07-MAY-2021 13:53, Previous ECG has undetermined rhythm, needs review Confirmed by Wade London ([id number]) on 05/08/2021 9:06:38 AM Referred By: Raul Reardon Confirmed By:Peter London
[2021-05-08] MEDS: METOPROLOL TARTRATE 25 MG TAB PO SCH (09:09)
[2021-05-08] MEDS: ACYCLOVIR 400 MG TAB PO SCH (09:09)
[2021-05-08] MEDS: APIXABAN 5 MG TABLET PO SCH (09:10)
[2021-05-08] MEDS: CALCIUM CARBONATE 1250MG TAB PO SCH (09:11)
[2021-05-08 10:30] LABS: Magnesium 1.9 mg/dl (1.8-2.4); Potassium 3.7 mmol/L (3.5-5.1)
--- NOTE | 2021-05-08 11:47 | Cardiology Progress Note ---
Date of Service May 08, 2021 Assessment & Plan (1) Atrial fibrillation: (2) LBBB (left bundle branch block): (3) Diastolic heart failure: (4) Hypokalemia: Plan: Patient feels clinically improved status post direct-current cardioversion. He does however have a severe left atrial margin, and ultimately I am not convinced that we are going to be successful with a rhythm control strategy in the long-term. He has underlying conduction system disease with long first- degree AV block, left bundle branch block and also has frequent supraventricular and ventricular ectopy. On telemetry last night he has maintained sinus rhythm, he has had occasional accelerated junctional rhythm in the range of 70 bpm but no profound bradycardia. At present, I recommend transitioning patient from prior to hospital treatment with metoprolol succinate 25 mg daily, to metoprolol tartrate 25 mg twice daily. This formulation will be easier to adjust. He was already on chronic anticoagulation with Eliquis due to his history of past pulmonary embolism. This will be continued. I am concerned in the future, the best approach may be pacemaker implantation for heart rate support, which would allow more aggressive AV kareem blockade and perhaps even antiarrhythmic therapy amiodarone. I would however prefer to avoid stopping his anticoagulation shortly after cardioversion and effort to minimize risk of strokes. Think the best approach may be outpatient follow-up and consideration of outpatient EP consultation. The patient's potassium is chronically low, it is acceptable at 3.7 today having been 3.2 on presentation yesterday. Continue spironolactone 25 mg daily, add potassium chloride 20 mEq daily. Discharge on prior to hospital dose of furosemide 20 mg. The patient's blood pressure at 710 am had been 179/90, this is recently been rechecked at 1145 after receiving his morning medications including his hydralazine, and is improved to 148/77 mm Hg. Based on his outpatient BP regimen , it appears high BP has been a chronic issues and 148/77 mm Hg appears to be a reasonable reading for him. Summary: stable for DC on metoprolol tartrate 25 mg BID. Outpatient follow up . 1-3 weeks. Admission and Anticipated Discharge Date Admission Date: May 07, 2021 Subjective Patient seen in cardiology follow-up. He notes feeling well. When I had reassessed him yesterday post cardioversion he was already feeling better. His lower extremity edema is markedly improved today. EKG performed this morning 05/08/2021 reveals sinus rhythm at 70 bpm with first- degree AV block, WI interval 270 ms, left bundle branch block, QRS duration 146 ms. Review of Systems Review of Systems: All systems reviewed & are unremarkable except as noted in HPI & below Physical Exam Physical Exam: Temp Pulse Resp BP Pulse Ox 36.7 C 66 21 178/90 H 95 05/08/21 07:10 05/08/21 07:10 05/08/21 07:10 05/08/21 07:10 05/08/21 07:10 Constitutional: WD/WN, vitals as above Respiratory: normal respiratory effort, lungs clear to auscultation Cardiovascular: RRR, no murmur, no edema Neurologic: PERRL, EOMI, accommodation nl, no face palsy, no dysarthria Results & Data ([facility]) Vital Signs (Past 12 Hours) Vital Signs Temp Pulse Pulse Resp BP BP Pulse Ox 05/08/21 07:10 36.7 C 66 21 178/90 H 95 05/08/21 06:00 60 05/08/21 05:35 36.8 C 75 16 169/79 H 93 05/08/21 00:52 63 Laboratory Results CBC 05/08/21 Range/Units 06:40 WBC 6.63 (4.8-10.8) K/uL RBC 3.65 L (4.7-6.1) M/uL Hgb 11.4 L (14.0-18.0) g/dL Hct 34.8 L (42-52) % Plt Count 171 (130-400) K/uL Neut # (Auto) 4.83 (1.4-6.5) K/uL Lymph # (Auto) 0.87 L (1.2-3.4) K/uL Bartholomew # (Auto) 0.67 H (0.11-0.59) K/uL Eos # (Auto) 0.19 (0-0.5) K/uL Baso # (Auto) 0.05 (0-0.2) K/uL Comprehensive Metabolic Panel 05/08/21 05/08/21 Range/Units 06:40 09:11 Sodium 144 (136-145) mmol/L Potassium 3.7 D (3.5-5.1) mmol/L Chloride 112 H (98-107) mmol/L Carbon Dioxide 24 (21-32) mmol/L BUN 16 (7-18) mg/dl Creatinine 1.37 (0.6-1.4) mg/dl Glucose 89 (70-99) mg/dl Calcium 8.2 L (8.5-10.1) mg/dl Intake and Output 05/07/21 05/08/21 05/08/21 22:59 06:59 14:59 Intake Total 500 / 900 400 / 900 Output Total 500 / 501 Balance 499 / 399 -100 / 399 Intake: IV 500 / 500 Sodium Chloride 0.9% 1000ML 500 500 / 500 ml @ 999 mls/hr IV .Q31M ONE Rx#:[id number] Oral 400 / 400 Output: Urine 500 / 500 # Bowel Movements Other: # Unmeasured Voids 1 Weight 119.7 kg 126.6 kg Weight Measurement Method Built in [facility] Built in [facility]
[2021-05-08] MEDS ORDERED: FUROSEMIDE 20 MG TAB PO SCH (12:00)
[2021-05-08] MEDS ORDERED: POTASSIUM CHLORIDE CRTAB 20 MEQ TABCR PO SCH (12:00)
--- NOTE | 2021-05-08 13:03 | Hospitalist Progress Note ---
Date of Service May 08, 2021 Assessment & Plan (1) Atrial fibrillation with rapid ventricular response: Plan: -Admit to telemetry -Patient presenting by referral of outpatient wing mailer machine operator after echocardiogram demonstrated A. fib with RVR and borderline hypotension -Patient reports fatigue, worsening exertional shortness of breath, and lower extremity edema x 2 weeks -Given the patient is anticoagulated on Eliquis for prior history of pulmonary embolism and has been compliant with doses, patient was taken for BENJIE guided cardioversion today with successful conversion to NSR -EF 54% on outpatient echo today -Case discussed with Dr. Galindo -Change metoprolol succinate 25 mg daily to metoprolol tartrate 25 mg twice daily, making adjustments as needed -Continue Eliquis -Status post cardioversion and remained in sinus rhythm -Denies any symptoms and will be discharged home this afternoon -We will adjust medications as per wing mailer machine operator (2) Acute on chronic diastolic CHF (congestive heart failure): Plan: -Likely due to A. 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: Plan: -[facility] -Currently receiving monthly daratumumab (7) CKD (chronic kidney disease), stage III: Plan: -Baseline creatinine runs in the low to mid 1's -Creat 1.3 today -Monitor renal functions (8) Obstructive sleep apnea on CPAP: Plan: -CPAP as per home settings (9) DVT prophylaxis: Plan: -On Eliquis Admission and Anticipated Discharge Date Admission Date: May 07, 2021 Subjective 05/08/2021 The patient was seen and examined in telemetry unit He has been feeling much better and denies any palpitation and/or shortness of breath He remains in sinus rhythm and the rate is controlled Review of Systems Review of Systems: All systems reviewed and are unremarkable except as noted below Cardiovascular: no chest pain and no palpitations Physical Exam Physical Exam: Sitting at the edge of the bed without any acute distress Constitutional: well developed, well nourished and + obese; not ill appearing Eyes: PERRL, conjunctivae normal, anicteric sclerae ENMT: external ear and nose normal, oropharynx normal Neck: trachea midline, no thyromegaly Respiratory: no respiratory distress and no cough Auscultation: + diminished lung sounds and + crackles (Minimal bibasilar crackles) Cardiovascular: Rate/Rhythm: regular rate and regular rhythm; not tachycardic Heart Sounds: normal S1 and normal S2; no murmur Extremities: + edema (Trace to 1+ edema bilaterally) Gastrointestinal (Abdomen): Inspection/Auscultation: + abdomen distended and normal bowel sounds Percussion/Palpation: abdomen soft; abdomen nontender Musculoskeletal: No acute arthritis in any joint Neurologic: Alert, awake and oriented x3, no focal sensory no motor deficit appreciated Psychiatric: A+Ox3, euthymic affect Lymphatic: no cervical or axillary lymphadenopathy Results & Data Results & Data ([facility]) Vital Signs (Past 12 Hours) Vital Signs Temp Pulse Pulse Resp BP BP Pulse Ox 05/08/21 11:45 36.7 C 59 L 16 148/77 H 94 05/08/21 07:10 36.7 C 66 21 178/90 H 95 05/08/21 06:00 60 05/08/21 05:35 36.8 C 75 16 169/79 H 93 Laboratory Results Short CBC 05/08/21 Range/Units 06:40 WBC 6.63 (4.8-10.8) K/uL Hgb 11.4 L (14.0-18.0) g/dL Hct 34.8 L (42-52) % Plt Count 171 (130-400) K/uL BMP 05/08/21 05/08/21 06:40 09:11 Sodium 144 Potassium 3.7 D Chloride 112 H Carbon Dioxide 24 BUN 16 Creatinine 1.37 Glucose 89 Calcium 8.2 L Medications Administered Current Inpatient Medications Acetaminophen (Acetaminophen 325 Mg Tab) 650 mg PO Q4H PRN PRN Reason: Pain or Fever Stop: 06/06/21 17:34 Acyclovir (Acyclovir 400 Mg Tab) 400 mg PO BID [facility]INCENT Stop: 06/06/21 20:59 Last Admin: 05/08/21 09:09 Dose: 400 mg Documented by: Allopurinol (Allopurinol 300 Mg Tab) 300 mg PO QAM [facility] Stop: 06/07/21 08:59 Last Admin: 05/08/21 09:10 Dose: 300 mg Documented by: Apixaban (Apixaban 5 Mg Tablet) 5 mg PO BID [facility] Stop: 06/06/21 20:59 Last Admin: 05/08/21 09:10 Dose: 5 mg Documented by: Aspirin (Aspirin 81 Mg Ectab) [facility] Stop: 06/07/21 08:59 Last Admin: 05/08/21 09:10 Dose: 81 mg Documented by: Atorvastatin Calcium (Atorvastatin 10 Mg Tab) [facility] [place] Stop: 06/07/21 08:59 Last Admin: 05/08/21 09:10 Dose: 5 mg Documented by: Calcium Carbonate (Calcium Carbonate 1250mg Tab) 1,250 mg PO BID [facility] Stop: 06/06/21 20:59 Last Admin: 05/08/21 09:11 Dose: 1,250 mg Documented by: Citalopram Hydrobromide (Citalopram 20 Mg Tab) 20 mg PO [facility] Stop: 06/07/21 08:59 Last Admin: 05/08/21 09:11 Dose: 20 mg Documented by: Furosemide (Furosemide 20 Mg Tab) 20 mg PO [facility] Stop: 06/07/21 11:59 Last Admin: 05/08/21 12:47 Dose: 20 mg Documented by: Hydralazine HCl (Hydralazine Hcl 25 Mg Tab) 25 mg PO TID [facility] Stop: 06/06/21 20:59 Last Admin: 05/08/21 09:00 Dose: 25 mg Documented by: Levothyroxine Sodium (Levothyroxine Sodium 112 Mcg Tablet) [facility] Stop: 06/07/21 06:29 Last Admin: 05/08/21 05:35 Dose: 112 mcg Documented by: Metoprolol Tartrate (Metoprolol Tartrate 25 Mg Tab) 25 mg PO BID [facility] Stop: 06/06/21 20:59 Last Admin: 05/08/21 09:09 Dose: 25 mg Documented by: Montelukast Sodium (Montelukast Sodium 10 Mg Tablet) 10 mg PO DAILY [facility] Stop: 06/07/21 08:59 Last Admin: 05/08/21 09:07 Dose: 10 mg Documented by: Pantoprazole Sodium (Pantoprazole 40 Mg Tab) 40 mg PO [facility]; Protocol Stop: 06/06/21 20:59 Last Admin: 05/07/21 20:48 Dose: 40 mg Documented by: Potassium Chloride (Potassium Chloride Crtab 20 Meq Tabcr) 20 meq PO [facility] Stop: 06/07/21 11:59 Last Admin: 05/08/21 12:47 Dose: 20 meq Documented by: Spironolactone (Spironolactone 25 Mg Tab) 25 mg PO [facility] Stop: 06/07/21 08:59 Last Admin: 05/08/21 09:07 Dose: 25 mg Documented by: Terazosin HCl (Terazosin Hcl 5 Mg Cap) 5 mg PO [facility] Stop: 06/06/21 20:59 Last Admin: 05/07/21 20:50 Dose: 5 mg Documented by:
--- NOTE | 2021-05-09 09:25 | Discharge Summary ---
Date of Service May 09, 2021 Admission HPI Per Admitting Provider 81-year-old male with PMH hypothyroidism, nonobstructive CAD per cardiac cath 05/2020, history of pericardial effusion, chronic diastolic CHF, LBBB, HTN, CKD stage III, history of left pleural effusion, GERD, BPH, history of recurrent C. difficile infection, NAHEED on CPAP, lambda light chain multiple myeloma and monoclonal B lymphocytosis, history of pulmonary embolism anticoagulated on Eliquis, and other problems listed below who presents to the ED by referral of outpatient [employer] intelligence officer for evaluation of A. fib with RVR and hypotension. Patient notes that for the past 2 weeks, he has had worsening exertional s hortness of breath and fatigue. Also noted increased lower extremity edema. Patient was referred for outpatient echo today and was found to be in A. fib with RVR with borderline low BPs. Patient was referred to the ED for further evaluation. Patient denies chest pain and palpitations. No lightheadedness, dizziness, diaphoresis, syncopal events. Denies any other recent illnesses, fevers, chills. No abdominal pain, nausea, vomiting, diarrhea. Denies urinary symptoms. Patient was taken to the cardiac Senior Sales Assistant directly from the ED for BENJIE guided cardioversion. Patient was seen and examined post procedure in the cardiac Senior Sales Assistant recovery area. He reports he is feeling well and offers no complaints. Labs obtained in the ED were essentially unremarkable with the exception of mild hypokalemia with potassium 3.2. Admission Exam Per Admitting Provider Constitutional: WD/WN, vitals as above Eyes: PERRL, conjunctivae normal, anicteric sclerae ENMT: external ear and nose normal, oropharynx normal Respiratory: normal respiratory effort, lungs clear to auscultation Cardiovascular: Rate/Rhythm: regular rate and regular rhythm Vessels: normal peripheral pulses Extremities: + edema (+1-2 pitting edema BLE) Gastrointestinal (Abdomen): normal bowel sounds, soft, nontender, no hepatosplenomegaly Musculoskeletal: no cyanosis or clubbing, extremities motor strength 5/5 Skin: no rashes, warm and dry Neurologic: PERRL, EOMI, accommodation nl, no face palsy, no dysarthria Psychiatric: A+Ox3, euthymic affect Principal Diagnosis Atrial fibrillation status post cardioversion to normal sinus rhythm, diastolic heart failure, history of pulmonary embolism, monoclonal B-cell lymphocytosis Discharge Exam Sitting at the edge of the bed without any acute distress Constitutional well developed, well nourished and + obese; not ill appearing Eyes PERRL, conjunctivae normal, anicteric sclerae ENMT external ear and nose normal, oropharynx normal Neck trachea midline, no thyromegaly Respiratory no respiratory distress and no cough Auscultation: + diminished lung sounds and + crackles (Minimal bibasilar crackles) Cardiovascular Rate/Rhythm: regular rate and regular rhythm; not tachycardic Heart Sounds: normal S1 and normal S2; no murmur Extremities: + edema (Trace to 1+ edema bilaterally) Gastrointestinal (Abdomen) Inspection/Auscultation: + abdomen distended and normal bowel sounds Percussion/Palpation: abdomen soft; abdomen nontender Psychiatric A+Ox3, euthymic affect Lymphatic no cervical or axillary lymphadenopathy Discharge Data Allergies Allergy/AdvReac Type Severity Reaction Status Date / Time No Known Allergies Allergy Verified 05/07/21 10:03 Consultations 05/07/21 10:31 Consult Anesthesiology Routine 05/07/21 12:53 ED Decision to Admit Stat 05/07/21 17:35 Consult Cardiology Routine Procedures Performed Operation Date: 05/07/21 13:00 Actual Procedures p Cardioversion - Kvng Galindo, DO Hospital Course (1) Atrial fibrillation with rapid ventricular response: -Admit to telemetry -Patient presenting by referral of outpatient [employer] intelligence officer after echocardiogram demonstrated A. fib with RVR and borderline hypotension -Patient reports fatigue, worsening exertional shortness of breath, and lower extremity edema x 2 weeks -Given the patient is anticoagulated on Eliquis for prior history of pulmonary embolism and has been compliant with doses, patient was taken for BENJIE guided car dioversion today with successful conversion to NSR -EF 54% on outpatient echo today -Case discussed with Dr. Galindo -Change metoprolol succinate 25 mg daily to metoprolol tartrate 25 mg twice daily, making adjustments as needed -Continue Eliquis -Status post cardioversion and remained in sinus rhythm -Denies any symptoms and will be discharged home this afternoon -We will adjust medications as per [employer] intelligence officer (2) Acute on chronic diastolic CHF (congestive heart failure): -Likely due to A. 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: -Follows with Shannon Yang PA-C at [facility] -Currently receiving monthly daratumumab (7) CKD (chronic kidney disease), stage III: -Baseline creatinine runs in the low to mid 1's -Creat 1.3 today -Monitor renal functions (8) Obstructive sleep apnea on CPAP: -CPAP as per home settings (9) DVT prophylaxis: -On Eliquis Total Time Total Time Spent Total Time Spent (In Minutes): 35 minutes Discharge Plan Discharge Items Patient Disposition: Home - Self-Care Reason For Visit: ATRIAL FIBRILLATION Discharge Diagnosis: Atrial fibrillation status post cardioversion to normal sinus rhythm, diastolic heart failure, history of pulmonary embolism, monoclonal B-cell lymphocytosis Condition on Discharge: Fair Activity: Resume your previous activity Non-emergency contact: Primary Care Provider Call non-emergency contact if: you have any medication questions and your symptoms worsen Follow-up/Referrals: Amadeo Gomez [Physician Professor Of Law] - Musa Stout MD [Primary Care Provider] - (Date & Time 05/14/2021 9:40 AM Provider Musa Stout MD [facility] ) Diet: Heart Healthy Addtl Attending Provider Instructions: Please take precautions to avoid fall Please take your medications as advised Keep follow-up appointments with your healthcare providers Pending Studies at Discharge: No Stand-Alone Forms: My [facility], Smoking Cessation Medications and DC Order Prescriptions: New potassium chloride 20 mEq Tablet,Er Particles/Crystals 20 meq PO QAM 30 Days Qty: 30 RF: 0 metoprolol tartrate 25 mg Tablet 25 mg PO BID 30 Days Qty: 60 RF: 0 Continued furosemide [Lasix] 20 mg tablet 20 mg PO DAILY RF: 0 aspirin 81 mg tablet,delayed release (DR/EC) 81 mg PO QAM RF: 0 spironolactone 25 mg tablet 25 mg PO QAM RF: 0 terazosin 5 mg Capsule 5 mg PO HS RF: 0 atorvastatin 10 mg Tablet 5 mg PO QAM RF: 0 omeprazole 40 mg Capsule,Delayed Release(Dr/Ec) 40 mg PO HS RF: 0 citalopram [Celexa] 20 mg Tablet 20 mg PO QAM RF: 0 allopurinol 300 mg Tablet 300 mg PO QAM RF: 0 hydralazine 50 mg Tablet 25 mg PO TID RF: 0 cholecalciferol (vitamin D3) [Vitamin D3] 2,000 unit Capsule 2,000 unit PO QAM RF: 0 Eliquis 5 mg tablet 5 mg PO BID RF: 0 levothyroxine 112 mcg Tablet 112 mcg PO QAM RF: 0 calcium carbonate [Calcium 500] 500 mg calcium (1,250 mg) Tablet 500 mg PO BID RF: 0 acyclovir 400 mg tablet 400 mg PO BID RF: 0 montelukast 10 mg tablet 10 mg PO DAILY RF: 0 Discontinued metoprolol succinate 25 mg tablet extended release 24 hr 25 mg PO DAILY RF: 0 Discharge Orders: Discharge Order (Routine); Ordered 05/08/21 Ordered By: Erick Parker Admission Data Admit Date/Time: 05/07/21 13:55 Attending Provider: Erick Parker Admit Provider: Kvng Galindo Primary Care Provider: Musa Stout Other Providers: Octavio Alberts ; Erick Parker ; Kvng Galindo Other Interventions: Discharge Summary Assessment (RN) Last Done: 05/08/21 15:05
--- NOTE | 2021-05-09 15:04 | Electrocardiogram Report ---
Test Reason : Blood Pressure : / mmHG Vent. Rate : 124 BPM Atrial Rate : 090 BPM P-R Int : 000 ms QRS Dur : 142 ms QT Int : 370 ms P-R-T Axes : 076 -42 124 degrees QTc Int : 531 ms Poor data quality, interpretation may be adversely affected Atrial fibrillation with rapid ventricular rate and aberrancy Left axis deviation Left bundle branch block Abnormal ECG When compared with ECG of 05-SEP-2020 18:14, Atrial fibrillation has replaced sinus rhythm Confirmed by Wade London ([id number] on 05/09/2021 3:04:15 PM Referred By: SELF Confirmed By:Peter London
== END 2021-05-08 15:00 | disposition home or self-care (01) | DRG 308 ==
LOC: ED 09:25 → CC 13:13 → 2S 13:15

== ENCOUNTER 2021-07-09 14:31 | Inpatient (IN) ==
--- NOTE | 2021-07-09 14:48 | Emergency Department Note ---
Impression & Plan 2019 novel coronavirus-infected pneumonia (NCIP), Hypoxia, Elevated troponin I level, Thrombocytopenia ED Provider Note NAME: LLOYD CURTIS AGE: 81 SEX: M : 1940 ARRIVES VIA: Ambulance INFORMANT: Patient, EMS ED PROVIDER(S): Kvng Jenkins DO CHIEF COMPLAINT: Shortness of breath HPI: The patient is an 81-year-old male who presented to emergency department for evaluation of shortness of breath. The patient's been experiencing shortness of breath over the course the last week. He took a home test and was positive for COVID-19. He is not seen a provider. Symptoms started to worsen today. He started noticing tightness in the chest and coughing. He states he has a productive cough for a whitish sputum. He denies having any lower extremity swelling. He does have a history of CHF. He is not been seen by his provider for these symptoms currently. He is only partially vaccinated against COVID-19 as he had a reaction to the initial vaccine. The patient denies having any trauma. He denies having any fever. He denies having any hemoptysis. He denies having any abdominal pain. He was treated with DuoNeb treatment prior to arrival and states that the symptoms are significantly improved. ROS: See above HPI for pertinent positives & negatives. A total of 10 systems reviewed and were otherwise negative. PAST MEDICAL HISTORY: See Below PAST SURGICAL HISTORY: See Below FAMILY HISTORY: See Below SOCIAL HISTORY: See Below HOME MEDICATIONS: See Below ALLERGIES: See Below VITALS: See Below PHYSICAL EXAMINATION: GENERAL: Patient is awake alert in no acute distress patient is resting comfortably and showing no signs of anxiety EYES: The conjunctivae are clear. The pupils are round and reactive. EARS, NOSE, MOUTH AND THROAT: The nose is without any evidence of any deformity. Mucous membranes are moist. Tongue is midline. NECK: The neck is nontender and supple. RESPIRATORY: Diminished breath sounds are noted in the left lung field. There was mild conversational dyspnea. CARDIOVASCULAR: Regular rate and rhythm noted there no murmurs rubs or gallops normal S1 normal S2. GASTROINTESTINAL: The abdomen is soft. Abdomen is nontender. MUSCULOSKELETAL/EXTREMITIES: There is no evidence of gross deformity full range of motion is noted in the hips and shoulders. SKIN: Mild pedal edema was noted bilaterally. NEUROLOGIC: Patient is awake alert and oriented x3 MEDICAL DECISION MAKING: The patient is an 81-year-old male who presented to emergency department for an evaluation of shortness of breath. The patient was diagnosed with COVID-19 with a home test recently. 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 He was found to have tachycardia as well as hypoxia especially with exertion. I discussed the patient's laboratory and radiographic studies with him. He was treated with Decadron. Because of his findings I also discussed his case with the on-call [facility]. They have agreed to evaluate the patient in the emergency department for further management and disposition. Triage Nursing notes reviewed. Prior medical records reviewed Vital Signs: reviewed and remarkable for tachycardia and hypoxia. Differential diagnosis: Reactive airway disease, pneumonia, pneumothorax, COPD, CHF, infections, card iac ischemia, pulmonary embolism, musculoskeletal, gastrointestinal, as well as other pathologies. ER treatment provided: See below Diagnostics interpreted by me: ECG: EKG was obtained in the emergency department. My interpretation is atrial fibrillation at 102 bpm. PVCs were noted. Left bundle-branch block pattern was noted. This was compared to a tracing from May 082020. No changes were noted. Cardiac Monitoring: An order was placed for continuous cardiac monitoring. The monitor shows a rate of 127 bpm with sinus tachycardia. Laboratory studies: As stated above and show below. Imaging studies: See below Consultation(s): I discussed this case with Dr. Bernard who is on-call for the [facility] group. Past Med/Surg History Medical History BPH without obstruction/lower urinary tract symptoms Carpal tunnel syndrome Chronic diastolic CHF (congestive heart failure) Chronic sinusitis CKD (chronic kidney disease), stage III Escherichia coli infection GERD (gastroesophageal reflux disease) Gout History of paroxysmal supraventricular tachycardia History of pulmonary embolism Hyperlipidemia Hypertension Insomnia Klebsiella infection Lambda light chain myeloma LBBB (left bundle branch block) Monoclonal B-cell lymphocytosis Morbid (severe) obesity due to excess calories Neuralgia ON SIDE OF FACE Nonobstructive atherosclerosis of coronary artery By 05/2010 catheterization Obstructive sleep apnea on CPAP Pericardial effusion Pleural effusion, left Prolonged QT interval Recurrent Clostridioides difficile infection Restless leg syndrome Surgical History H/O cataract removal with insertion of prosthetic lens H/O knee surgery H/O sinus surgery History of appendectomy History of bilateral knee arthroplasty History of cataract surgery RT/LEFT History of colonoscopy History of esophagogastroduodenoscopy (EGD) History of hip surgery History of tooth extraction History of total right hip arthroplasty Hx of cholecystectomy Status post total hip replacement, left Family History Father Heart disease Mother Diabetes Hypertension Brother Family hx of colon cancer Social History Smoking Status: Never smoker Second Hand Exposure: No; Hx Alcohol Use: No Hx Substance Use: No Preferred Language: Slovenian Communication Ability: Effective 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 Needle 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 Required: No Beliefs That Will Affect Care: None marital status: Current Living Situation: Spouse How many Children do You have: 3 Feels Safe at Home: Yes Assistive Devices: Cane Allergies Allergies Allergy/AdvReac Type Severity Reaction Status Date / Time No Known Allergies Allergy Verified 07/09/21 15:12 Home Meds Home Medications Medication Instructions Recorded Confirmed allopurinol 300 mg tablet 300 mg PO QAM 04/30/18 07/09/21 atorvastatin 10 mg tablet 5 mg PO QAM 04/30/18 07/09/21 cholecalciferol (vitamin D3) 50 2,000 unit PO QAM 04/30/18 07/09/21 mcg (2,000 unit) capsule (Vitamin D3) citalopram 20 mg tablet (Celexa) 20 mg PO QAM 04/30/18 07/09/21 hydralazine 50 mg tablet 25 mg PO TID 04/30/18 07/09/21 omeprazole 40 mg capsule,delayed 40 mg PO HS 04/30/18 07/09/21 release terazosin 5 mg capsule 5 mg PO HS 04/30/18 07/09/21 levothyroxine 112 mcg tablet 112 mcg PO QAM 05/22/19 07/09/21 furosemide 20 mg tablet (Lasix) 20 mg PO DAILY tab 08/16/19 07/09/21 aspirin 81 mg tablet,delayed 81 mg PO QAM 03/10/20 07/09/21 release spironolactone 25 mg tablet 25 mg PO QAM 03/10/20 07/09/21 acyclovir 400 mg tablet 400 mg PO BID 05/16/20 07/09/21 calcium carbonate 500 mg calcium 500 mg PO BID 05/16/20 07/09/21 (1,250 mg) tablet (Calcium 500) apixaban 5 mg tablet (Eliquis) 5 mg PO BID 09/05/20 07/09/21 montelukast 10 mg tablet 10 mg PO DAILY 05/07/21 07/09/21 Results & Data (ED) Vital Signs Vital Signs - 24 hr 07/09/21 14:45 07/09/21 16:00 07/09/21 19:00 Temperature 38.1 C H Temperature Source Oral Pulse Rate 100 H Pulse Rate [Right Finger] 106 H 127 H Pulse Rhythm [Right Finger] Irregular Irregular Pulse Strength Normal Pulse Strength [Right Finger] Normal Normal Respiratory Rate 26 H 18 18 Respiratory Effort / Characteristics Non-Labored Non-Labored Non-Labored Respiratory Depth Normal Normal Normal Respiratory Pattern Regular Tachypnea Regular Blood Pressure 157/99 H Blood Pressure [Left Arm] 165/96 H 128/93 Blood Pressure Mean 118 Blood Pressure Mean [Left Arm] 119 104 Blood Pressure Position Lying Blood Pressure Position [Left Arm] Lying Lying Pulse Oximetry 95 95 97 Oxygen Delivery Method Room Air Room Air Nasal Cannula Oxygen Flow Rate 2 Sepsis Recent Fever Within 48 Hours Yes Sepsis New/Unexplained Change in Mental Status No Sepsis Action Taken by Nursing MD Previously Notified Home Medications Current Medication List: was personally reviewed by me Laboratory Data Attestation: I reviewed the patient's lab results. Result diagrams: 07/09/21 15:20 07/09/21 15:20 Lab Results 07/09/21 07/09/21 07/09/21 Range/Units 15:20 15:20 15:20 WBC 5.93 (4.8-10.8) K/uL RBC 3.79 L (4.7-6.1) M/uL Hgb 11.7 L (14.0-18.0) g/dL Hct 36.0 L (42-52) % MCV 95.0 (80-100) fL MCH 30.9 (25-34) pg MCHC 32.5 (32-36) g/dL RDW Std Deviation 54.5 H (36.4-46.3) fL RDW Coeff of [place] 15.7 H (11.5-14.5) % Plt Count 126 L (130-400) K/uL MPV 11.3 H (7.4-10.4) fL Immature Gran % (Auto) 0.2 % Neut % (Auto) 77.1 % Lymph % (Auto) 10.5 % [place] % (Auto) 12.0 % Eos % (Auto) 0.0 % Baso % (Auto) 0.2 % Neut # (Auto) 4.58 (1.4-6.5) K/uL Lymph # (Auto) 0.62 L (1.2-3.4) K/uL [place] # (Auto) 0.71 H (0.11-0.59) K/uL Eos # (Auto) 0.00 (0-0.5) K/uL Baso # (Auto) 0.01 (0-0.2) K/uL Immature Gran # (Auto) 0.01 (0.00-0.02) K/uL PT 10.4 (9.0-12.0) Seconds INR 1.0 (0.9-1.1) APTT 34.6 H (21.0-31.0) Seconds PTT Ratio 1.3 Sodium 137 (136-145) mmol/L Potassium 3.8 (3.5-5.1) mmol/L Chloride 104 (98-107) mmol/L Carbon Dioxide 25 (21-32) mmol/L Anion Gap 8.0 (3-11) BUN 21 H (7-18) mg/dl Creatinine 1.54 H (0.6-1.4) mg/dl Est Cr Clr Drug Dosing 48.5 ml/min Est GFR ( Amer) 48.3 ml/min Est GFR (Non-Af Amer) 41.7 ml/min BUN/Creatinine Ratio 13.4 (10-20) Glucose 94 (70-99) mg/dl Calcium 7.5 L (8.5-10.1) mg/dl Total Bilirubin 0.5 (0.2-1) mg/dl AST 25 (15-37) U/L ALT 24 (12-78) Alkaline Phosphatase 66 (45-117) U/L Troponin I 0.022 (0-0.045) ng/ml NT-Pro-B Natriuret Pep 1396 (0-1800) pg/ml Total Protein 5.9 L (6.4-8.2) gm/dl Albumin 3.1 L (3.4-5.0) gm/dl Globulin 2.8 (2.5-4.0) gm/dl Albumin/Globulin Ratio 1.1 (0.9-2) Urine Color Urine Appearance (Clear) Urine pH (4.5-7.5) Ur Specific [place] (1.000-1.030) Urine Protein (Negative) Urine Glucose (UA) (Negative) Urine Ketones (Negative) Urine Blood (Negative) Urine Nitrite (Negative) Urine Bilirubin (Negative) Urine Urobilinogen (Negative) Ur Leukocyte Esterase (Negative) Urine WBC (Auto) (0-5) /hpf Urine RBC (Auto) (0-4) /hpf U Hyaline Cast (Auto) (0-5) /lpf U Epithel Cells (Auto) (0-5) /lpf Urine Bacteria (Auto) (Negative) Urine Yeast SARS-CoV-2 (PCR) (Negative) Influenza Type A (PCR) (Neg) Influenza Type B (PCR) (Neg) RSV (RT-PCR) (Neg) 07/09/21 07/09/21 Range/Units 16:35 16:35 WBC (4.8-10.8) K/uL RBC (4.7-6.1) M/uL Hgb (14.0-18.0) g/dL Hct (42-52) % MCV (80-100) fL MCH (25-34) pg MCHC (32-36) g/dL RDW Std Deviation (36.4-46.3) fL RDW Coeff of [place] (11.5-14.5) % Plt Count (130-400) K/uL MPV (7.4-10.4) fL Immature Gran % (Auto) % Neut % (Auto) % Lymph % (Auto) % [place] % (Auto) % Eos % (Auto) % Baso % (Auto) % Neut # (Auto) (1.4-6.5) K/uL Lymph # (Auto) (1.2-3.4) K/uL [place] # (Auto) (0.11-0.59) K/uL Eos # (Auto) (0-0.5) K/uL Baso # (Auto) (0-0.2) K/uL Immature Gran # (Auto) (0.00-0.02) K/uL PT (9.0-12.0) Seconds INR (0.9-1.1) APTT (21.0-31.0) Seconds PTT Ratio Sodium (136-145) mmol/L Potassium (3.5-5.1) mmol/L Chloride (98-107) mmol/L Carbon Dioxide (21-32) mmol/L Anion Gap (3-11) BUN (7-18) mg/dl Creatinine (0.6-1.4) mg/dl Est Cr Clr Drug Dosing ml/min Est GFR ( Amer) ml/min Est GFR (Non-Af Amer) ml/min BUN/Creatinine Ratio (10-20) Glucose (70-99) mg/dl Calcium (8.5-10.1) mg/dl Total Bilirubin (0.2-1) mg/dl AST (15-37) U/L ALT (12-78) Alkaline Phosphatase (45-117) U/L Troponin I (0-0.045) ng/ml NT-Pro-B Natriuret Pep (0-1800) pg/ml Total Protein (6.4-8.2) gm/dl Albumin (3.4-5.0) gm/dl Globulin (2.5-4.0) gm/dl Albumin/Globulin Ratio (0.9-2) Urine Color Yellow Urine Appearance Cloudy A (Clear) Urine pH 5.0 (4.5-7.5) Ur Specific [place] 1.024 (1.000-1.030) Urine Protein 2+ H (Negative) Urine Glucose (UA) Negative (Negative) Urine Ketones Negative (Negative) Urine Blood Negative (Negative) Urine Nitrite Negative (Negative) Urine Bilirubin Negative (Negative) Urine Urobilinogen Negative (Negative) Ur Leukocyte Esterase Negative (Negative) Urine WBC (Auto) 1-5 (0-5) /hpf Urine RBC (Auto) 0-4 (0-4) /hpf U Hyaline Cast (Auto) 1-5 (0-5) /lpf U Epithel Cells (Auto) >30 H (0-5) /lpf Urine Bacteria (Auto) Negative (Negative) Urine Yeast Not Reportable SARS-CoV-2 (PCR) POSITIVE A* (Negative) Influenza Type A (PCR) Negative (Neg) Influenza Type B (PCR) Negative (Neg) RSV (RT-PCR) Negative (Neg) Administered Medications Discontinued Medications Acetaminophen (Acetaminophen 500 Mg Tab) 1,000 mg PO NOW STA Stop: 07/09/21 16:56 Last Admin: 07/09/21 17:39 Dose: 1,000 mg Documented by: [id number] Dexamethasone Sodium Phosphate (DexamethasonePf 10 Mg/Ml Vial) 10 mg IV NOW ONE Stop: 07/09/21 16:53 Last Admin: 07/09/21 17:39 Dose: 10 mg Documented by: [id number] Imaging Data Radiologist's Impression: Chest X-Ray 07/09/21 14:45 XR chest 1V portable HISTORY: Dyspnea COMPARISON: Chest 05/07/2021. FINDINGS: No pneumothorax. No pleural effusions. The cardiac silhouette remains mildly enlarged. There is a left-sided chamber pacemaker. A few small peripheral hazy airspace opacities seen within the mid to lower lung zones. There is also mild central pulmonary vascular congestion without overt edema. IMPRESSION: 1. A few small peripheral hazy airspace opacities within the mid to lower lung zones. This favors a viral pneumonia. 2. There is mild central pulmonary vascular congestion without overt edema. ACT 112: Negative or not required by law. Electronically signed by: Ang Hurley M.D. 07/09/2021 4:09 PM Discharge Plan Visit Data Chief Complaint: Shortness of Breath/Dyspnea ED Provider: Kvng Jenkins Discharge Problem: 2019 novel coronavirus-infected pneumonia (NCIP), Hypoxia, Elevated troponin I level, Thrombocytopenia Patient Disposition: Being Evaluated by Hospitalist Forms Stand Alone Forms: My [facility] Prescriptions Prescriptions: No Action furosemide [Lasix] 20 mg tablet 20 mg PO DAILY RF: 0 aspirin 81 mg tablet,delayed release (DR/EC) 81 mg PO QAM RF: 0 spironolactone 25 mg tablet 25 mg PO QAM RF: 0 terazosin 5 mg Capsule 5 mg PO HS RF: 0 atorvastatin 10 mg Tablet 5 mg PO QAM RF: 0 omeprazole 40 mg Capsule,Delayed Release(Dr/Ec) 40 mg PO HS RF: 0 citalopram [Celexa] 20 mg Tablet 20 mg PO QAM RF: 0 allopurinol 300 mg Tablet 300 mg PO QAM RF: 0 hydralazine 50 mg Tablet 25 mg PO TID RF: 0 cholecalciferol (vitamin D3) [Vitamin D3] 2,000 unit Capsule 2,000 unit PO QAM RF: 0 Eliquis 5 mg tablet 5 mg PO BID RF: 0 levothyroxine 112 mcg Tablet 112 mcg PO QAM RF: 0 calcium carbonate [Calcium 500] 500 mg calcium (1,250 mg) Tablet 500 mg PO BID RF: 0 acyclovir 400 mg tablet 400 mg PO BID RF: 0 montelukast 10 mg tablet 10 mg PO DAILY RF: 0 Referrals Referrals: Musa Stout MD [Primary Care Provider] -
[2021-07-09 15:31] LABS: Basophils # (auto) 0.01 K/uL (0-0.2); Basophils % (auto) 0.2 %; Hemoglobin 11.7 g/dL (14.0-18.0); Immature Granulocytes # (auto) 0.01 K/uL (0.00-0.02); Immature Granulocytes % (auto) 0.2 %; Lymphocytes # (auto) 0.62 K/uL (1.2-3.4); Lymphocytes % (auto) 10.5 %; Mean Corpuscular Hemoglobin 30.9 pg (25-34); Mean Corpuscular Hgb Conc 32.5 g/dL (32-36); Mean Platelet Volume 11.3 fL (7.4-10.4); Monocytes # (auto) 0.71 K/uL (0.11-0.59); Neutrophils # (auto) 4.58 K/uL (1.4-6.5); Neutrophils % (auto) 77.1 %; Platelet Count 126 K/uL (130-400); RDW Coefficient of Variation 15.7 % (11.5-14.5); RDW Standard Deviation 54.5 fL (36.4-46.3); Red Blood Count 3.79 M/uL (4.7-6.1); White Blood Count 5.93 K/uL (4.8-10.8)
[2021-07-09 15:42] LABS: Partial Thromboplastin Ratio 1.3; Partial Thromboplastin Time 34.6 Seconds (21.0-31.0); Prothrombin Time 10.4 Seconds (9.0-12.0)
[2021-07-09 15:53] LABS: Albumin Level 3.1 gm/dl (3.4-5.0); BUN Creatinine Ratio 13.4 (10-20); Calcium 7.5 mg/dl (8.5-10.1); Creatinine Clr Calc Pharmacy 48.5 ml/min; Est GFR (African American) 48.3 ml/min; Est GFR (Non-African American) 41.7 ml/min; Potassium 3.8 mmol/L (3.5-5.1)
[2021-07-09 15:58] LABS: Albumin Globulin Ratio 1.1 (0.9-2); Bilirubin,Total 0.5 mg/dl (0.2-1); Globulin 2.8 gm/dl (2.5-4.0); Total Protein 5.9 gm/dl (6.4-8.2); Troponin I 0.022 ng/ml (0-0.045)
--- NOTE | 2021-07-09 16:10 | XRay Report ---
XR chest 1V portable HISTORY: Dyspnea COMPARISON: Chest 05/07/2021. FINDINGS: No pneumothorax. No pleural effusions. The cardiac silhouette remains mildly enlarged. Ther e is a left-sided chamber pacemaker. A few small peripheral hazy airspace opacities seen within the m id to lower lung zones. There is also mild central pulmonary vascular congestion without overt edema. IMPRESSION: 1. A few small peripheral hazy airspace opacities within the mid to lower lung zones. This favors a v iral pneumonia. 2. There is mild central pulmonary vascular congestion without overt edema. ACT 112: Negative or not required by law. Electronically signed by: Ang Hurley M.D. 07/09/2021 4:09 PM
[2021-07-09 16:49] LABS: Appearance Urine Cloudy (Clear); Bacteria Urine Automated Negative (Negative); Bilirubin Urine Negative (Negative); Blood Urine Negative (Negative); Color Urine Yellow; Epithelial Cell Urine Auto >30 /lpf (0-5); Glucose Urine UA Negative (Negative); Ketones Urine Negative (Negative); Leukocyte Esterase Urine Negative (Negative); Nitrite Urine Negative (Negative); Protein Urine 2+ (Negative); RBC Urine Automated 0-4 /hpf (0-4); Specific Gravity Urine 1.024 (1.000-1.030); Urobilinogen Urine Negative (Negative)
[2021-07-09] MEDS ORDERED: dexAMETHasone**PF** 10 MG/ML VIAL IV ONE (16:52)
[2021-07-09] MEDS ORDERED: ACETAMINOPHEN 500 MG TAB PO STA (16:55)
[2021-07-09 17:21] LABS: Influenza A virus by PCR Negative (Neg); Influenza B virus by PCR Negative (Neg); RSV by PCR Negative (Neg)
[2021-07-09 17:39] LABS: SARS CoV2 RNA(COVID-19) InHosp POSITIVE (Negative)
--- NOTE | 2021-07-09 18:42 | History & Physical Report ---
Date of Service July 09, 2021 Assessment & Plan (1) Pneumonia due to COVID-19 virus: Plan: As seen on imaging, mild hypoxia present and Decadron started. Continue this daily. Length of symptoms precludes benefit from remdesivir at this time. No other Covid therapies are recommended. Trend CRP in a.m. Monitor fever curve and treat with antipyretics as needed. Antiemetics ordered as needed and guaifenesin scheduled. Prone patient has tolerated (2) Hypoxia: Plan: Secondary to pneumonia, plan as above. (3) Atrial fibrillation with rapid ventricular response: Plan: Atrial fibrillation with rapid ventricular response in setting of acute pulmonary illness and fever. Continue rate control with metoprolol. Continue apixaban for long-term anticoagulation and stroke prophylaxis. (4) CAD (coronary artery disease): Plan: Chronic, stable, continue home medical therapy including baby aspirin, atorvastatin, metoprolol. (5) Hypothyroidism: Plan: Chronic, stable, continue levothyroxine per home regimen. (6) CKD (chronic kidney disease), stage III: Plan: Creatinine is around his baseline 1.4-1.5. Continue to avoid nephrotoxic substances and renally dose meds as needed. (7) Obstructive sleep apnea on CPAP: Plan: Declines to use CPAP in the hospital. Typically does use CPAP at home. (8) Hypertension: Plan: Chronic, controlled, continue hydralazine per home regimen. (9) Chronic diastolic CHF (congestive heart failure): Plan: Complex cardiac history. Patient is compensated. Dyspnea is presumed solely from Covid pneumonia. (10) DVT prophylaxis: Plan: Apixaban Full code Disposition-to home when feeling improved and off oxygen consistently Bere Bernard DO [facility] Hospitalist History of Present Illness Chief Complaint: dyspnea, covid symptoms Primary Care Provider: Musa Stout MD 81 yo M who developed covid like symptoms over the last 2 weeks. Lives with his and daughter who are well. Reports poor appetite but has been compliant with medications. chest pain, no swelling, no weight gain. 2 pillow orthopnea chronically. No diarrhea, no acute urinary symptoms. Denies pain. Overall though doesn't really "know (his) symptoms". Although he uses CPAP regularly at home he declines it here. Complicated cardiac history that appears compensated at this time. Recently with fevers. Allergies Allergy/AdvReac Type Severity Reaction Status Date / Time No Known Allergies Allergy Verified 07/09/21 15:12 Home Medications Medication Instructions Recorded Confirmed Type allopurinol 300 mg tablet 300 mg PO QAM 04/30/18 07/09/21 History atorvastatin 10 mg tablet 5 mg PO QAM 04/30/18 07/09/21 History cholecalciferol (vitamin D3) 50 2,000 unit PO QAM 04/30/18 07/09/21 History mcg (2,000 unit) capsule (Vitamin D3) citalopram 20 mg tablet (Celexa) 20 mg PO QAM 04/30/18 07/09/21 History hydralazine 50 mg tablet 25 mg PO TID 04/30/18 07/09/21 History omeprazole 40 mg capsule,delayed 40 mg PO HS 04/30/18 07/09/21 History release terazosin 5 mg capsule 5 mg PO HS 04/30/18 07/09/21 History levothyroxine 112 mcg tablet 112 mcg PO QAM 05/22/19 07/09/21 History furosemide 20 mg tablet (Lasix) 20 mg PO DAILY tab 08/16/19 07/09/21 History aspirin 81 mg tablet,delayed 81 mg PO QAM 03/10/20 07/09/21 History release spironolactone 25 mg tablet 25 mg PO QAM 03/10/20 07/09/21 History acyclovir 400 mg tablet 400 mg PO BID 05/16/20 07/09/21 History calcium carbonate 500 mg calcium 500 mg PO BID 05/16/20 07/09/21 History (1,250 mg) tablet (Calcium 500) apixaban 5 mg tablet (Eliquis) 5 mg PO BID 09/05/20 07/09/21 History montelukast 10 mg tablet 10 mg PO DAILY 05/07/21 07/09/21 History metoprolol tartrate 25 mg tablet 25 mg PO BID 07/09/21 07/09/21 History Past Med/Surg History Medical History BPH without obstruction/lower urinary tract symptoms Carpal tunnel syndrome Chronic diastolic CHF (congestive heart failure) Chronic sinusitis CKD (chronic kidney disease), stage III Escherichia coli infection GERD (gastroesophageal reflux disease) Gout History of paroxysmal supraventricular tachycardia History of pulmonary embolism Hyperlipidemia Hypertension Insomnia Klebsiella infection Lambda light chain myeloma LBBB (left bundle branch block) Monoclonal B-cell lymphocytosis Morbid (severe) obesity due to excess calories Neuralgia ON SIDE OF FACE Nonobstructive atherosclerosis of coronary artery By 05/2010 catheterization Obstructive sleep apnea on CPAP Pericardial effusion Pleural effusion, left Prolonged QT interval Recurrent Clostridioides difficile infection Restless leg syndrome Surgical History H/O cataract removal with insertion of prosthetic lens H/O knee surgery H/O sinus surgery History of appendectomy History of bilateral knee arthroplasty History of cataract surgery RT/LEFT History of colonoscopy History of esophagogastroduodenoscopy (EGD) History of hip surgery History of tooth extraction History of total right hip arthroplasty Hx of cholecystectomy Status post total hip replacement, left Family History Father Heart disease Mother Diabetes Hypertension Brother Family hx of colon cancer Social History Smoking Status: Never smoker Second Hand Exposure: No; Hx Alcohol Use: No Hx Substance Use: No Preferred Language: [place] Communication Ability: Effective Aml Analyst Required: No Beliefs That Will Affect Care: None marital status: Current Living Situation: Spouse How many Children do You have: 3 Feels Safe at Home: Yes Assistive Devices: Cane Review of Systems Review of Systems: All systems reviewed and negative except as indicated above. Physical Exam Physical Exam: CONSTITUTIONAL: WNWD, vitals as above, generally ill- appearing, NAD, no tachypnea. EYES: normal conjunctivae, no scleral icterus ENT: external ear and nose normal, MMM NECK: trachea midline, RESPIRATORY: clear to auscultation bilaterally, no crackles, rales or wheezes, normal respiratory effort CARDIOVASCULAR: regular rate and rhythm, S1 and 2 heard without murmurs, gallops or rubs, no JVD, no peripheral edema, GASTROINTESTINAL: soft, nontender, ND, no guarding MUSCULOSKELETAL: strength 5/5 throughout, head is normocephalic and atraumatic SKIN: warm and dry NEUROLOGIC: CN 2-12 grossly intact, no sensory deficit, normal cognition, normal speech, no tremor, no gross focal deficits PSYCHIATRIC: alert cooperative and oriented to person, place and time. Results & Data Results & Data ([facility]) Vital Signs (Past 12 Hours) Vital Signs Temp Pulse Pulse Resp BP BP Pulse Ox 07/09/21 16:00 106 H 18 165/96 H 95 07/09/21 14:45 38.1 C H 100 H 26 H 157/99 H 95 Laboratory Results Short CBC 07/09/21 Range/Units 15:20 WBC 5.93 (4.8-10.8) K/uL Hgb 11.7 L (14.0-18.0) g/dL Hct 36.0 L (42-52) % Plt Count 126 L (130-400) K/uL BMP 07/09/21 15:20 Sodium 137 Potassium 3.8 Chloride 104 Carbon Dioxide 25 BUN 21 H Creatinine 1.54 H Glucose 94 Calcium 7.5 L Cardiac Enzymes 07/09/21 Range/Units 15:20 Troponin I 0.022 (0-0.045) ng/ml Liver Function 07/09/21 Range/Units 15:20 Total Bilirubin 0.5 (0.2-1) mg/dl AST 25 (15-37) U/L ALT 24 (12-78) Alkaline Phosphatase 66 (45-117) U/L Albumin 3.1 L (3.4-5.0) gm/dl Urine 07/09/21 Range/Units 16:35 Urine Color Yellow Urine Appearance Cloudy A (Clear) Urine pH 5.0 (4.5-7.5) Ur Specific [place] 1.024 (1.000-1.030) Urine Protein 2+ H (Negative) Urine Glucose (UA) Negative (Negative) Diagnostic Findings Chest X-Ray 07/09/21 14:45 XR chest 1V portable HISTORY: Dyspnea COMPARISON: Chest 05/07/2021. FINDINGS: No pneumothorax. No pleural effusions. The cardiac silhouette remains mildly enlarged. There is a left-sided chamber pacemaker. A few small peripheral hazy airspace opacities seen within the mid to lower lung zones. There is also mild central pulmonary vascular congestion without overt edema. IMPRESSION: 1. A few small peripheral hazy airspace opacities within the mid to lower lung zones. This favors a viral pneumonia. 2. There is mild central pulmonary vascular congestion without overt edema. ACT 112: Negative or not required by law. Electronically signed by: Ang Hurley M.D. 07/09/2021 4:09 PM Code Status & VTE Plan VTE Prophylaxis Plan VTE Prophylaxis will be ordered: Yes
[2021-07-09] MEDS ORDERED: ENOXAPARIN INJ 40 MG/0.4 ML SYR SQ SCH (21:15)
[2021-07-09] MEDS ORDERED: POLYETHYLENE (MIRALAX) 17 GM PACK PO PRN (21:15)
[2021-07-09] MEDS: guaiFENesin 600 MG TABCR PO SCH (22:08)
[2021-07-09] MEDS: PANTOprazole 40 MG TAB PO SCH (23:21)
[2021-07-09] MEDS: ACYCLOVIR 400 MG TAB PO SCH (23:21)
[2021-07-09] MEDS: METOPROLOL TARTRATE 25 MG TAB PO SCH (23:21)
[2021-07-09] MEDS: TERAZOSIN HCL 5 MG CAP PO SCH (23:21)
[2021-07-10 03:09] LABS: Hematocrit (blood only) 37.7 % (42-52); Hemoglobin 12.4 g/dL (14.0-18.0); Mean Corpuscular Hgb Conc 32.9 g/dL (32-36); Mean Corpuscular Volume 94.3 fL (80-100); Mean Platelet Volume 11.7 fL (7.4-10.4); Platelet Count 140 K/uL (130-400); RDW Coefficient of Variation 15.4 % (11.5-14.5); RDW Standard Deviation 54.4 fL (36.4-46.3); White Blood Count 5.65 K/uL (4.8-10.8)
[2021-07-10 03:30] LABS: BUN Creatinine Ratio 14.6 (10-20); Calcium 7.4 mg/dl (8.5-10.1); Creatinine Clr Calc Pharmacy 46.4 ml/min; Est GFR (African American) 45.8 ml/min; Est GFR (Non-African American) 39.5 ml/min; Potassium 4.1 mmol/L (3.5-5.1)
[2021-07-10 03:35] LABS: C Reactive Protein 11.2 mg/dl (0-0.29); Troponin I 0.023 ng/ml (0-0.045)
[2021-07-10] MEDS: LEVOTHYROXINE SODIUM 112 MCG TABLET PO SCH (06:33)
[2021-07-10] MEDS: guaiFENesin 600 MG TABCR PO SCH ×2 (08:36→20:17)
[2021-07-10] MEDS: SPIRONOLACTONE 25 MG TAB PO SCH (08:36)
[2021-07-10] MEDS: APIXABAN 2.5 MG TAB PO SCH ×2 (08:36→20:19)
[2021-07-10] MEDS: hydrALAZINE HCL 25 MG TAB PO SCH ×3 (08:37→20:17)
[2021-07-10] MEDS: allopurinoL 300 MG TAB PO SCH (08:37)
[2021-07-10] MEDS: ATORVASTATIN 10 MG TAB PO SCH (08:38)
[2021-07-10] MEDS: ASPIRIN 81 MG ECTAB PO SCH (08:38)
[2021-07-10] MEDS: CHOLECALCIFEROL 1,000 UNITS 25 MCG TAB PO SCH (08:39)
[2021-07-10] MEDS: METOPROLOL TARTRATE 25 MG TAB PO SCH ×2 (08:40→20:18)
[2021-07-10] MEDS: CITALOPRAM 20 MG TAB PO SCH (08:40)
[2021-07-10] MEDS: ACYCLOVIR 400 MG TAB PO SCH ×2 (08:40→20:16)
[2021-07-10] MEDS ORDERED: FUROSEMIDE 20 MG TAB PO SCH (09:00)
[2021-07-10] MEDS ORDERED: CALCIUM GLUCONATE 10% 1,000 MG in SODIUM CHLORIDE 0.9% 50 ML IV ONE (09:00)
[2021-07-10] MEDS: FUROSEMIDE INJ 20 MG/2 ML VIAL IV SCH (11:00)
--- NOTE | 2021-07-10 11:38 | Electrocardiogram Report ---
Test Reason : Blood Pressure : / mmHG Vent. Rate : 102 BPM Atrial Rate : 108 BPM P-R Int : 000 ms QRS Dur : 146 ms QT Int : 356 ms P-R-T Axes : 000 -26 116 degrees QTc Int : 463 ms Poor data quality, interpretation may be adversely affected Probable Sinus rhythm with frequent Premature atrial complexes Premature ventricular complexes Left bundle branch block Abnormal ECG When compared with ECG of 08-MAY-2021 05:31, QT has shortened Confirmed by Kvng Cain ([id number]) on 07/10/2021 11:37:56 AM Referred By: REFERRED SELF Confirmed By:Kvng Cain
--- NOTE | 2021-07-10 12:02 | Electrocardiogram Report ---
Test Reason : Blood Pressure : / mmHG Vent. Rate : 093 BPM Atrial Rate : 104 BPM P-R Int : 000 ms QRS Dur : 144 ms QT Int : 438 ms P-R-T Axes : 000 -23 116 degrees QTc Int : 544 ms Probable Atrial fibrillation Left bundle branch block Abnormal ECG When compared with ECG of 09-JUL-2021 14:52, (unconfirmed) Atrial fibrillation now present Confirmed by Kvng Cain ([id number]) on 07/10/2021 12:01:55 PM Referred By: REFERRED SELF Confirmed By:Kvng Cain
[2021-07-10] MEDS: dexAMETHasone 6 MG in SYRINGE 0 ML IV SCH (14:39)
[2021-07-10] MEDS ORDERED: REMDESIVIR 200 MG in SODIUM CHLORIDE 0.9% 210 ML IV STA (15:38)
--- NOTE | 2021-07-10 15:40 | Hospitalist Progress Note ---
Date of Service July 10, 2021 Assessment & Plan (1) Pneumonia due to COVID-19 virus: Plan: As seen on imaging, mild hypoxia present and Decadron started. Continue this daily. Length of symptoms precludes benefit from remdesivir at this time. No other Covid therapies are recommended. Trend CRP in a.m. Monitor fever curve and treat with antipyretics as needed. Antiemetics ordered as needed and guaifenesin scheduled. Prone patient has tolerated (2) Hypoxia: Plan: Secondary to pneumonia, plan as above. (3) Atrial fibrillation with rapid ventricular response: Plan: Atrial fibrillation with rapid ventricular response in setting of acute pulmonary illness and fever. Continue rate control with metoprolol. Continue apixaban for long-term anticoagulation and stroke prophylaxis. (4) CAD (coronary artery disease): Plan: Chronic, stable, continue home medical therapy including baby aspirin, atorvastatin, metoprolol. (5) Hypothyroidism: Plan: Chronic, stable, continue levothyroxine per home regimen. (6) CKD (chronic kidney disease), stage III: Plan: Creatinine is around his baseline 1.4-1.5. Continue to avoid nephrotoxic substances and renally dose meds as needed. (7) Obstructive sleep apnea on CPAP: Plan: Declines to use CPAP in the hospital. Typically does use CPAP at home. (8) Hypertension: Plan: Chronic, controlled, continue hydralazine per home regimen. (9) Chronic diastolic CHF (congestive heart failure): Plan: Complex cardiac history. Patient is compensated. Dyspnea is presumed solely from Covid pneumonia. (10) DVT prophylaxis: Plan: Apixaban Full code Disposition-to home when feeling improved and off oxygen consistently. We spoke together with his daughter Eloise who is in favor of him staying in the hospital and getting the treatments here. I discussed that things can get worse regarding his oxygen needs while at home at this point. Patient is ok with staying for now but would like to go home by Friday. I agreed that if his oxygen requirements were reasonable this would be fine. Bere Bernard DO [facility] Hospitalist Admission and Anticipated Discharge Date Admission Date: July 09, 2021 Subjective 81 yo M presented with covid pneumonia. He states he is feeling better today Denies SOB and chest pain Denies nausea or vomiting, tolerating PO Review of Systems Review of Systems: All systems were reviewed and negative except as indicated above. Physical Exam Physical Exam: CONSTITUTIONAL: WNWD, vitals as above, generally ill- appearing, NAD, no tachypnea. EYES: normal conjunctivae, no scleral icterus ENT: external ear and nose normal, MMM NECK: trachea midline, RESPIRATORY: clear to auscultation bilaterally, no crackles, rales or wheezes, normal respiratory effort CARDIOVASCULAR: regular rate and rhythm, S1 and 2 heard without murmurs, gallops or rubs, no JVD, no peripheral edema, GASTROINTESTINAL: soft, nontender, ND, no guarding MUSCULOSKELETAL: strength 5/5 throughout, head is normocephalic and atraumatic SKIN: warm and dry NEUROLOGIC: CN 2-12 grossly intact, no sensory deficit, normal cognition, normal speech, no tremor, no gross focal deficits PSYCHIATRIC: alert cooperative and oriented to person, place and time. Results & Data Results & Data ([facility]) Vital Signs (Past 12 Hours) Vital Signs Temp Pulse Resp BP Pulse Ox 07/10/21 11:00 79 28 H 143/78 H 98 07/10/21 09:30 85 20 143/85 H 95 07/10/21 08:26 37.3 C 93 H 22 138/85 98 07/10/21 06:00 70 16 122/63 96 Laboratory Results Short CBC 07/10/21 Range/Units 02:59 WBC 5.65 (4.8-10.8) K/uL Hgb 12.4 L (14.0-18.0) g/dL Hct 37.7 L (42-52) % Plt Count 140 (130-400) K/uL BMP 07/09/21 07/10/21 15:20 02:59 Sodium 137 136 Potassium 3.8 4.1 Chloride 104 106 Carbon Dioxide 25 24 BUN 21 H 24 H Creatinine 1.54 H 1.61 H Glucose 94 174 H Calcium 7.5 L 7.4 L Cardiac Enzymes 07/09/21 07/09/21 07/10/21 Range/Units 15:20 21:21 02:59 Troponin I 0.022 0.022 0.023 (0-0.045) ng/ml Liver Function 07/09/21 Range/Units 15:20 Total Bilirubin 0.5 (0.2-1) mg/dl AST 25 (15-37) U/L ALT 24 (12-78) Alkaline Phosphatase 66 (45-117) U/L Albumin 3.1 L (3.4-5.0) gm/dl Urine 07/09/21 Range/Units 16:35 Urine Color Yellow Urine Appearance Cloudy A (Clear) Urine pH 5.0 (4.5-7.5) Ur Specific [place] 1.024 (1.000-1.030) Urine Protein 2+ H (Negative) Urine Glucose (UA) Negative (Negative) Medications Administered Current Inpatient Medications Acetaminophen (Acetaminophen 325 Mg Tab) 650 mg PO Q4H PRN PRN Reason: Pain or Fever Stop: 08/08/21 21:14 Acyclovir (Acyclovir 400 Mg Tab) 400 mg PO BID [facility] Stop: 08/08/21 22:29 Last Admin: 07/10/21 08:40 Dose: 400 mg Documented by: Allopurinol (Allopurinol 300 Mg Tab) 300 mg PO [facility] Stop: 08/09/21 08:59 Last Admin: 07/10/21 08:37 Dose: 300 mg Documented by: Apixaban (Apixaban 2.5 Mg Tab) 2.5 mg PO BID [facility] Stop: 08/09/21 08:59 Last Admin: 07/10/21 08:36 Dose: 2.5 mg Documented by: Aspirin (Aspirin 81 Mg Ectab) 81 mg PO [facility] Stop: 08/09/21 08:59 Last Admin: 07/10/21 08:38 Dose: 81 mg Documented by: Atorvastatin Calcium (Atorvastatin 10 Mg Tab) 5 mg PO [facility] Stop: 08/09/21 08:59 Last Admin: 07/10/21 08:38 Dose: 5 mg Documented by: Citalopram Hydrobromide (Citalopram 20 Mg Tab) 20 mg PO [facility] Stop: 08/09/21 08:59 Last Admin: 07/10/21 08:40 Dose: 20 mg Documented by: Furosemide (Furosemide Inj 20 Mg/2 Ml Vial) 20 mg IV [facility] Stop: 08/09/21 08:59 Last Admin: 07/10/21 11:00 Dose: 20 mg Documented by: Guaifenesin (Guaifenesin 600 Mg Tabcr) 600 mg PO Q12 [facility] Stop: 08/08/21 21:14 Last Admin: 07/10/21 08:36 Dose: 600 mg Documented by: Guaifenesin/Codeine Phosphate (Guaifenesin/Codeine 200mg/20mg 10ml Udc) 10 ml PO Q6H PRN PRN Reason: Cough Stop: 08/08/21 21:14 Hydralazine HCl (Hydralazine Hcl 25 Mg Tab) 25 mg PO TID [facility] Stop: 08/09/21 08:59 Last Admin: 07/10/21 14:35 Dose: 25 mg Documented by: Dexamethasone 6 mg/ Syringe 1.5 mls @ 1 mls/min IV Q24H [facility] Stop: 07/18/21 12:02 Last Admin: 07/10/21 14:39 Dose: 1 mls/min Documented by: Remdesivir 200 mg/ Sodium (Chloride) 250 mls @ 125 mls/hr IV [facility]; Protocol Stop: 07/10/21 17:37 Remdesivir 100 mg/ Sodium (Chloride) 250 mls @ 250 mls/hr IV Q24H [facility]; Protocol Stop: 07/14/21 16:44 Levothyroxine Sodium (Levothyroxine Sodium 112 Mcg Tablet) 112 mcg PO DAILYBB [facility] Stop: 08/09/21 06:29 Last Admin: 07/10/21 06:33 Dose: 112 mcg Documented by: Metoprolol Tartrate (Metoprolol Tartrate 25 Mg Tab) 25 mg PO BID [facility] Stop: 08/08/21 22:29 Last Admin: 07/10/21 08:40 Dose: 25 mg Documented by: Montelukast Sodium (Montelukast Sodium 10 Mg Tablet) 10 mg PO [facility] Stop: 08/09/21 20:59 Pantoprazole Sodium (Pantoprazole 40 Mg Tab) 40 mg PO [facility] Stop: 08/08/21 22:24 Last Admin: 07/09/21 23:21 Dose: 40 mg Documented by: Polyethylene Glycol (Polyethylene (Miralax) 17 Gm Pack) 17 gm PO DAILY PRN PRN Reason: Constipation Stop: 08/08/21 21:14 Sodium Chloride (Sodium Chloride 0.9% 10ml Flush) 30 ml IV Q24H [facility] Stop: 07/14/21 15:46 Spironolactone (Spironolactone 25 Mg Tab) 25 mg PO QAM [facility] Stop: 08/09/21 08:59 Last Admin: 07/10/21 08:36 Dose: 25 mg Documented by: Terazosin HCl (Terazosin Hcl 5 Mg Cap) 5 mg PO [facility] Stop: 08/08/21 22:24 Last Admin: 07/09/21 23:21 Dose: 5 mg Documented by: Vitamin D (Cholecalciferol 1,000 Units 25 Mcg Tab) 2,000 units PO [facility] Stop: 08/09/21 08:59 Last Admin: 07/10/21 08:39 Dose: 2,000 units Documented by:
[2021-07-10] MEDS ORDERED: PROMETHAZINE HCL 25 MG/20 ML UDP PO PRN (17:47)
[2021-07-10] MEDS ORDERED: SODIUM CHLORIDE 0.9% 10ML FLUSH IV SCH (18:00)
[2021-07-10] MEDS: TERAZOSIN HCL 5 MG CAP PO SCH (20:16)
[2021-07-10] MEDS: MONTELUKAST SODIUM 10 MG TABLET PO SCH (20:19)
[2021-07-10] MEDS: PANTOprazole 40 MG TAB PO SCH (20:19)
[2021-07-10] MEDS: ACETAMINOPHEN 325 MG TAB PO PRN (23:25)
[2021-07-11] MEDS: LEVOTHYROXINE SODIUM 112 MCG TABLET PO SCH (06:09)
[2021-07-11 07:58] LABS: Hematocrit (blood only) 38.3 % (42-52); Hemoglobin 12.8 g/dL (14.0-18.0); Mean Corpuscular Hemoglobin 31.2 pg (25-34); Mean Corpuscular Hgb Conc 33.4 g/dL (32-36); Mean Corpuscular Volume 93.4 fL (80-100); Platelet Count 167 K/uL (130-400); RDW Coefficient of Variation 15.6 % (11.5-14.5); RDW Standard Deviation 53.4 fL (36.4-46.3)
[2021-07-11] MEDS: CHOLECALCIFEROL 1,000 UNITS 25 MCG TAB PO SCH (08:16)
[2021-07-11] MEDS: guaiFENesin 600 MG TABCR PO SCH ×2 (08:16→20:06)
[2021-07-11] MEDS: APIXABAN 2.5 MG TAB PO SCH ×2 (08:16→20:08)
[2021-07-11] MEDS: FUROSEMIDE INJ 20 MG/2 ML VIAL IV SCH (08:17)
[2021-07-11] MEDS: METOPROLOL TARTRATE 25 MG TAB PO SCH (08:17)
[2021-07-11] MEDS: CITALOPRAM 20 MG TAB PO SCH (08:18)
[2021-07-11] MEDS: ATORVASTATIN 10 MG TAB PO SCH (08:18)
[2021-07-11] MEDS: SPIRONOLACTONE 25 MG TAB PO SCH (08:19)
[2021-07-11] MEDS: ASPIRIN 81 MG ECTAB PO SCH (08:19)
[2021-07-11] MEDS: allopurinoL 300 MG TAB PO SCH (08:19)
[2021-07-11] MEDS: ACYCLOVIR 400 MG TAB PO SCH ×2 (08:20→20:07)
[2021-07-11] MEDS: hydrALAZINE HCL 25 MG TAB PO SCH ×3 (08:20→20:10)
[2021-07-11 08:33] LABS: BUN Creatinine Ratio 20.7 (10-20); C Reactive Protein 8.75 mg/dl (0-0.29); Calcium 7.5 mg/dl (8.5-10.1); Creatinine Clr Calc Pharmacy 39.4 ml/min; Est GFR (African American) 38.2 ml/min; Potassium 4.1 mmol/L (3.5-5.1)
[2021-07-11] MEDS ORDERED: METOPROLOL TARTRATE 25 MG TAB PO ONE (09:15)
[2021-07-11] MEDS: dexAMETHasone 6 MG in SYRINGE 0 ML IV SCH (11:02)
[2021-07-11] MEDS: ACETAMINOPHEN 325 MG TAB PO PRN (12:00)
--- NOTE | 2021-07-11 12:56 | Electrocardiogram Report ---
Test Reason : Blood Pressure : / mmHG Vent. Rate : 089 BPM Atrial Rate : 073 BPM P-R Int : 000 ms QRS Dur : 144 ms QT Int : 418 ms P-R-T Axes : 000 -40 125 degrees QTc Int : 508 ms Poor data quality, interpretation may be adversely affected Atrial fibrillation with premature ventricular or aberrantly conducted complexes Left axis deviation Left bundle branch block Abnormal ECG When compared with ECG of 10-JUL-2021 09:00, No significant change was found Confirmed by Kvng Cain ([id number]) on 07/11/2021 12:56:27 PM Referred By: REFERRED SELF Confirmed By:Kvng Cain
--- NOTE | 2021-07-11 13:00 | Electrocardiogram Report ---
Test Reason : Blood Pressure : / mmHG Vent. Rate : 109 BPM Atrial Rate : 109 BPM P-R Int : 000 ms QRS Dur : 140 ms QT Int : 346 ms P-R-T Axes : 000 -66 102 degrees QTc Int : 465 ms Atrial fibrillation with rapid ventricular response Left axis deviation Left bundle branch block Abnormal ECG When compared with ECG of 11-JUL-2021 05:36, (unconfirmed) No significant change Confirmed by Kvng Cain ([id number]) on 07/11/2021 1:00:16 PM Referred By: REFERRED SELF Confirmed By:Kvng Cain
--- NOTE | 2021-07-11 13:23 | Hospitalist Progress Note ---
Date of Service July 11, 2021 Assessment & Plan (1) Pneumonia due to COVID-19 virus: Plan: As seen on imaging, mild hypoxia present and Decadron started. Continue this daily. Length of symptoms precludes benefit from remdesivir at this time. No other Covid therapies are recommended. Trend CRP in a.m. Monitor fever curve and treat with antipyretics as needed. Antiemetics ordered as needed and guaifenesin scheduled. Prone patient has tolerated (2) Hypoxia: Plan: Secondary to pneumonia, plan as above. (3) Atrial fibrillation with rapid ventricular response: Plan: Atrial fibrillation with rapid ventricular response in setting of acute pulmonary illness and fever. Continue rate control with metoprolol. Continue apixaban for long-term anticoagulation and stroke prophylaxis. Notably heart rate has gone up overnight to max of 150. This morning he is in the 1 teens. Suspect secondary to pulmonary illness, however, also now with urinary tract infection and fever. Increased metoprolol to 50 mg p.o. twice daily. Rate is more controlled with additional 25 mg this morning. Continue monitoring to on telemetry (4) CAD (coronary artery disease): Plan: Chronic, stable, continue home medical therapy including baby aspirin, atorvastatin, metoprolol. (5) Acute UTI: Plan: Secondary to Proteus. Will give 1 dose of Rocephin now and continue on p.o. antibiotic course. Suspect this is the etiology of his persistent fevers and possibly his increased heart rate. (6) Hypothyroidism: Plan: Chronic, stable, continue levothyroxine per home regimen. (7) CKD (chronic kidney disease), stage III: Plan: Creatinine is around his baseline 1.4-1.5. Continue to avoid nephrotoxic substances and renally dose meds as needed. (8) Obstructive sleep apnea on CPAP: Plan: Declines to use CPAP in the hospital. Typically does use CPAP at home. (9) Hypertension: Plan: Chronic, controlled, continue hydralazine per home regimen. (10) Chronic diastolic CHF (congestive heart failure): Plan: Complex cardiac history. Patient is compensated. Dyspnea is presumed solely from Covid pneumonia. (11) DVT prophylaxis: Plan: Apixaban Full code Disposition-to home when feeling improved and off oxygen consistently. I again updated Eloise by phone today regarding urinary tract infection and his overall plan. All questions were answered to her satisfaction. Bere Bernard DO [facility] Hospitalist Admission and Anticipated Discharge Date Admission Date: July 09, 2021 Subjective 81 yo M presented with covid pneumonia. He states he is feeling better today Denies SOB and chest pain Denies nausea or vomiting, tolerating PO UCx returned positive after I saw him, starting abx Contacted daughter by phone and updated her. Review of Systems Review of Systems: All systems were reviewed and negative except as indicated above. Physical Exam Physical Exam: CONSTITUTIONAL: WNWD, vitals as above, generally ill- appearing, NAD, no tachypnea. EYES: normal conjunctivae, no scleral icterus ENT: external ear and nose normal, MMM NECK: trachea midline, RESPIRATORY: clear to auscultation bilaterally, no crackles, rales or wheezes, normal respiratory effort CARDIOVASCULAR: regular rate and rhythm, S1 and 2 heard without murmurs, gallops or rubs, no JVD, no peripheral edema, GASTROINTESTINAL: soft, nontender, ND, no guarding MUSCULOSKELETAL: strength 5/5 throughout, head is normocephalic and atraumatic SKIN: warm and dry NEUROLOGIC: CN 2-12 grossly intact, no sensory deficit, normal cognition, normal speech, no tremor, no gross focal deficits PSYCHIATRIC: alert cooperative and oriented to person, place and time. Results & Data Results & Data ([facility]) Vital Signs (Past 12 Hours) Vital Signs Temp Pulse Resp BP BP Pulse Ox Pulse Ox 07/11/21 12:02 92 07/11/21 10:59 38.8 C H 83 22 120/70 97 07/11/21 07:14 37.0 C 96 H 24 152/90 H 97 07/11/21 03:27 37.0 C 98 H 23 127/68 97 Laboratory Results Short CBC 07/11/21 Range/Units 07:22 WBC 11.10 H (4.8-10.8) K/uL Hgb 12.8 L (14.0-18.0) g/dL Hct 38.3 L (42-52) % Plt Count 167 (130-400) K/uL BMP 07/11/21 07:22 Sodium 135 L Potassium 4.1 Chloride 105 Carbon Dioxide 22 BUN 39 H D Creatinine 1.87 H Glucose 99 Calcium 7.5 L Medications Administered Current Inpatient Medications Acetaminophen (Acetaminophen 325 Mg Tab) 650 mg PO Q4H PRN PRN Reason: Pain or Fever Stop: 08/08/21 21:14 Last Admin: 07/11/21 12:00 Dose: 650 mg Documented by: Acyclovir (Acyclovir 400 Mg Tab) 400 mg PO BID [facility] Stop: 08/08/21 22:29 Last Admin: 07/11/21 08:20 Dose: 400 mg Documented by: Allopurinol ([facility]ol 300 Mg Tab) [facility]: 08/09/21 08:59 Last Admin: 07/11/21 08:19 Dose: 300 mg Documented by: Apixaban (Apixaban 2.5 Mg Tab) 2.5 mg PO BID [facility] Stop: 08/09/21 08:59 Last Admin: 07/11/21 08:16 Dose: 2.5 mg Documented by: Aspirin (Aspirin 81 Mg Ectab) [facility] Stop: 08/09/21 08:59 Last Admin: 07/11/21 08:19 Dose: 81 mg Documented by: Atorvastatin Calcium (Atorvastatin 10 Mg Tab) 5 mg PO [facility] Stop: 08/09/21 08:59 Last Admin: 07/11/21 08:18 Dose: 5 mg Documented by: Citalopram Hydrobromide (Citalopram 20 Mg Tab) 20 mg PO [facility] Stop: 08/09/21 08:59 Last Admin: 07/11/21 08:18 Dose: 20 mg Documented by: Furosemide (Furosemide Inj 20 Mg/2 Ml Vial) 20 [facility] Stop: 08/09/21 08:59 Last Admin: 07/11/21 08:17 Dose: 20 mg Documented by: Guaifenesin (Guaifenesin 600 Mg Tabcr) 600 mg PO Q12 [facility] Stop: 08/08/21 21:14 Last Admin: 07/11/21 08:16 Dose: 600 mg Documented by: Guaifenesin/Codeine Phosphate (Guaifenesin/Codeine 200mg/20mg 10ml Udc) 10 ml PO Q6H PRN PRN Reason: Cough Stop: 08/08/21 21:14 Hydralazine HCl (Hydralazine Hcl 25 Mg Tab) 25 mg PO TID [facility] Stop: 08/09/21 08:59 Last Admin: 07/11/21 08:20 Dose: 25 mg Documented by: Dexamethasone 6 mg/ Syringe 1.5 mls @ 1 mls/min IV Q24H [facility] Stop: 07/18/21 12:02 Last Admin: 07/11/21 11:02 Dose: 1 mls/min Documented by: Remdesivir 100 mg/ Sodium (Chloride) 250 mls @ 250 mls/hr IV Q24H [facility]; Protocol Stop: 07/14/21 20:59 Ceftriaxone Sodium 2,000 mg/ (Dextrose) 70 mls @ 100 mls/hr IV ONE [facility]; Protocol Stop: 07/16/21 13:14 Levothyroxine Sodium (Levothyroxine Sodium 112 Mcg Tablet) [facility]: 08/09/21 06:29 Last Admin: 07/11/21 06:09 Dose: 112 mcg Documented by: Metoprolol Tartrate (Metoprolol Tartrate 50 Mg Tab) 50 mg PO BID [facility] Stop: 08/10/21 20:59 Montelukast Sodium (Montelukast Sodium 10 Mg Tablet) 10 mg PO [facility] Stop: 08/09/21 20:59 Last Admin: 07/10/21 20:19 Dose: 10 mg Documented by: Pantoprazole Sodium (Pantoprazole 40 Mg Tab) 40 mg PO [facility] Stop: 08/08/21 22:24 Last Admin: 07/10/21 20:19 Dose: 40 mg Documented by: Polyethylene Glycol (Polyethylene (Miralax) 17 Gm Pack) 17 gm PO DAILY PRN PRN Reason: Constipation Stop: 08/08/21 21:14 Promethazine HCl (Promethazine Hcl 25 Mg/20 Ml Udp) 25 mg PO Q6H PRN PRN Reason: Nausea And Vomiting Stop: 08/09/21 17:46 Sodium Chloride (Sodium Chloride 0.9% 10ml Flush) 30 ml IV Q24H [facility] Stop: 07/14/21 21:01 Spironolactone (Spironolactone 25 Mg Tab) [facility] Stop: 08/09/21 08:59 Last Admin: 07/11/21 08:19 Dose: 25 mg Documented by: Terazosin HCl (Terazosin Hcl 5 Mg Cap) 5 mg PO [facility] Stop: 08/08/21 22:24 Last Admin: 07/10/21 20:16 Dose: 5 mg Documented by: Vitamin D (Cholecalciferol 1,000 Units 25 Mcg Tab) 2,000 units [facility] Stop: 08/09/21 08:59 Last Admin: 07/11/21 08:16 Dose: 2,000 units Documented by:
[2021-07-11] MEDS ORDERED: cefTRIAXone SODIUM 2,000 MG in DEXTROSE 5% 50 ML IV ONE (13:30)
[2021-07-11] MEDS: PANTOprazole 40 MG TAB PO SCH (20:07)
[2021-07-11] MEDS: AMOXICILLIN/CLAVULANATE 875 MG TAB PO SCH (20:07)
[2021-07-11] MEDS: MONTELUKAST SODIUM 10 MG TABLET PO SCH (20:10)
[2021-07-11] MEDS: TERAZOSIN HCL 5 MG CAP PO SCH (20:10)
[2021-07-11] MEDS: METOPROLOL TARTRATE 50 MG TAB PO SCH (20:11)
[2021-07-11] MEDS: REMDESIVIR 100 MG in SODIUM CHLORIDE 0.9% 230 ML IV SCH (20:20)
[2021-07-11] MEDS: SODIUM CHLORIDE 0.9% 10ML FLUSH IV SCH (21:36)
[2021-07-12] MEDS: LEVOTHYROXINE SODIUM 112 MCG TABLET PO SCH (05:46)
[2021-07-12 07:56] LABS: Creatinine Clr Calc Pharmacy 41.7 ml/min; Est GFR (African American) 41.1 ml/min; Est GFR (Non-African American) 35.5 ml/min
[2021-07-12] MEDS: AMOXICILLIN/CLAVULANATE 875 MG TAB PO SCH ×2 (09:14→16:50)
[2021-07-12] MEDS: ACYCLOVIR 400 MG TAB PO SCH ×2 (09:15→19:27)
[2021-07-12] MEDS: guaiFENesin 600 MG TABCR PO SCH ×2 (09:15→19:26)
[2021-07-12] MEDS: ATORVASTATIN 10 MG TAB PO SCH (09:15)
[2021-07-12] MEDS: SPIRONOLACTONE 25 MG TAB PO SCH (09:16)
[2021-07-12] MEDS: hydrALAZINE HCL 25 MG TAB PO SCH ×3 (09:16→19:29)
[2021-07-12] MEDS: CHOLECALCIFEROL 1,000 UNITS 25 MCG TAB PO SCH (09:16)
[2021-07-12] MEDS: CITALOPRAM 20 MG TAB PO SCH (09:17)
[2021-07-12] MEDS: allopurinoL 300 MG TAB PO SCH (09:17)
[2021-07-12] MEDS: ASPIRIN 81 MG ECTAB PO SCH (09:17)
[2021-07-12] MEDS: APIXABAN 2.5 MG TAB PO SCH ×2 (09:17→19:27)
[2021-07-12] MEDS: METOPROLOL TARTRATE 50 MG TAB PO SCH ×2 (09:18→19:28)
[2021-07-12] MEDS: FUROSEMIDE INJ 20 MG/2 ML VIAL IV SCH (09:27)
[2021-07-12] MEDS: dexAMETHasone 6 MG in SYRINGE 0 ML IV SCH (11:51)
[2021-07-12 17:09] LABS: Adenovirus F 40/41 PCR Not Detected (NotDetected); Astrovirus PCR Not Detected (NotDetected); Campylobacter PCR Not Detected (NotDetected); Clostridium diff Toxin A/B PCR Not Detected (NotDetected); Cryptosporidium PCR Not Detected (NotDetected); Cyclospora cayetanensis PCR Not Detected (NotDetected); Entamoeba histolytica PCR Not Detected (NotDetected); Enteroaggregative E.coli(EAEC) Not Detected (NotDetected); Enteropathogenic E.coli (EPEC) Not Detected (NotDetected); Enterotoxigenic E.coli (ETEC) Not Detected (NotDetected); Giardia lamblia PCR Not Detected (NotDetected); Norovirus GI/GII PCR Not Detected (NotDetected); Plesiomonas shigelloides PCR Not Detected (NotDetected); Rotavirus A PCR Not Detected (NotDetected); Salmonella PCR Not Detected (NotDetected); Sapovirus PCR Not Detected (NotDetected); Shiga-like Toxin E.coli (STEC) Not Detected (NotDetected); Vibrio cholerae PCR Not Detected (NotDetected); Vibrio species PCR Not Detected (NotDetected); Yersinia enterocolitica PCR Not Detected (NotDetected)
[2021-07-12 17:15] LABS: Shigella/Enteroinvasive E.coli DETECTED (NotDetected)
--- NOTE | 2021-07-12 18:50 | Hospitalist Progress Note ---
Date of Service July 12, 2021 Assessment & Plan (1) Pneumonia due to COVID-19 virus: Plan: Remdesivir given after discussion with daughter and he is doing well on this and steroids. Feels his breathing is improved and he is clinically improved. Remains afebrile. 2 step in am as hypoxia not present at rest. (2) Hypoxia: Plan: Secondary to pneumonia, plan as above. (3) Acute UTI: Plan: Secondary to Proteus. Augmentin given but shifting plan per below in setting of infectious diarrhea result. (4) Diarrhea: Plan: Acute infectious diarrhea, may also have been contributing to fever and illness overall. Cefdinir was started (stopped augmentin)-should cover both UTI and this. Uncertain if Shigella or EIEC. Will need to clarify with microbiology. (5) Atrial fibrillation with rapid ventricular response: Plan: Atrial fibrillation with rapid ventricular response in setting of acute pulmonary illness and fever. Continue rate control with metoprolol. Continue apixaban for long-term anticoagulation and stroke prophylaxis. Notably heart rate increased this admission so metoprolol was increased, also. HR better controlled on higher dose. (6) CAD (coronary artery disease): Plan: Chronic, stable, continue home medical therapy including baby aspirin, atorvastatin, metoprolol. (7) Hypothyroidism: Plan: Chronic, stable, continue levothyroxine per home regimen. (8) CKD (chronic kidney disease), stage III: Plan: Creatinine is around his baseline 1.4-1.5. Continue to avoid nephrotoxic substances and renally dose meds as needed. (9) Obstructive sleep apnea on CPAP: Plan: Declines to use CPAP in the hospital. Typically does use CPAP at home. (10) Hypertension: Plan: Chronic, controlled, continue hydralazine per home regimen. (11) Chronic diastolic CHF (congestive heart failure): Plan: Complex cardiac history. Patient is compensated. Dyspnea is presumed solely from Covid pneumonia. (12) DVT prophylaxis: Plan: Apixaban Full code Disposition-to home when feeling improved and off oxygen consistently. Poss dc in am DO Sanjay Florian Hospitalist Admission and Anticipated Discharge Date Admission Date: July 09, 2021 Subjective 81 yo M presented with covid pneumonia. He states he is feeling better today Denies SOB and chest pain Denies nausea or vomiting, tolerating PO Diarrhea persists but he reports this happening only two times on average and tends to come and go. Review of Systems Review of Systems: All systems were reviewed and negative except as indicated above. Physical Exam Physical Exam: CONSTITUTIONAL: WNWD, vitals as above, generally ill-ap pearing, NAD, no tachypnea. EYES: normal conjunctivae, no scleral icterus ENT: external ear and nose normal, MMM NECK: trachea midline, RESPIRATORY: clear to auscultation bilaterally, no crackles, rales or wheezes, normal respiratory effort CARDIOVASCULAR: regular rate and rhythm, S1 and 2 heard without murmurs, gallops or rubs, no JVD, no peripheral edema, GASTROINTESTINAL: soft, nontender, ND, no guarding MUSCULOSKELETAL: strength 5/5 throughout, head is normocephalic and atraumatic SKIN: warm and dry NEUROLOGIC: CN 2-12 grossly intact, no sensory deficit, normal cognition, normal speech, no tremor, no gross focal deficits PSYCHIATRIC: alert cooperative and oriented to person, place and time. Results & Data Results & Data ([facility]) Vital Signs (Past 12 Hours) Vital Signs Temp Pulse Pulse Resp BP Pulse Ox Pulse Ox 07/12/21 16:05 36.6 C 76 23 130/84 91 07/12/21 16:00 83 07/12/21 14:02 78 147/87 H 07/12/21 12:00 92 07/12/21 11:11 36.6 C 73 24 154/71 H 92 07/12/21 07:23 37.1 C 92 H 22 136/79 96 Laboratory Results BMP 07/12/21 06:37 Creatinine 1.76 H Liver Function 07/12/21 Range/Units 06:37 AST 62 H (15-37) U/L ALT 34 (12-78) Medications Administered Current Inpatient Medications Acetaminophen (Acetaminophen 325 Mg Tab) 650 mg PO Q4H PRN PRN Reason: Pain or Fever Stop: 08/08/21 21:14 Last Admin: 07/11/21 12:00 Dose: 650 mg Documented by: Acyclovir (Acyclovir 400 Mg Tab) 400 mg PO BID [facility] Stop: 08/08/21 22:29 Last Admin: 07/12/21 09:15 Dose: 400 mg Documented by: Allopurinol (Allopurinol 300 Mg Tab) 300 mg PO QAM [facility] Stop: 08/09/21 08:59 Last Admin: 07/12/21 09:17 Dose: 300 mg Documented by: Apixaban (Apixaban 2.5 Mg Tab) 2.5 mg PO BID [facility] Stop: 08/09/21 08:59 Last Admin: 07/12/21 09:17 Dose: 2.5 mg Documented by: Aspirin (Aspirin 81 Mg Ectab) [facility] [place]: 08/09/21 08:59 Last Admin: 07/12/21 09:17 Dose: 81 mg Documented by: Atorvastatin Calcium (Atorvastatin 10 Mg Tab) [facility] [place] Stop: 08/09/21 08:59 Last Admin: 07/12/21 09:15 Dose: 5 mg Documented by: Cefdinir (Cefdinir 300 Mg Cap) 300 mg PO Q12 [facility] Stop: 07/22/21 20:59 Citalopram Hydrobromide (Citalopram 20 Mg Tab) [facility] [place] Stop: 08/09/21 08:59 Last Admin: 07/12/21 09:17 Dose: 20 mg Documented by: Furosemide (Furosemide Inj 20 Mg/2 Ml Vial) 20 mg IV QAM [facility] Stop: 08/09/21 08:59 Last Admin: 07/12/21 09:27 Dose: 20 mg Documented by: Guaifenesin (Guaifenesin 600 Mg Tabcr) 600 mg PO Q12 [facility] Stop: 08/08/21 21:14 Last Admin: 07/12/21 09:15 Dose: 600 mg Documented by: Guaifenesin/Codeine Phosphate (Guaifenesin/Codeine 200mg/20mg 10ml Udc) 10 ml PO Q6H PRN PRN Reason: Cough Stop: 08/08/21 21:14 Hydralazine HCl (Hydralazine Hcl 25 Mg Tab) 25 mg PO TID [facility] Stop: 08/09/21 08:59 Last Admin: 07/12/21 14:02 Dose: 25 mg Documented by: Dexamethasone 6 mg/ Syringe 1.5 mls @ 1 mls/min IV Q24H [facility] Stop: 07/18/21 12:02 Last Admin: 07/12/21 11:51 Dose: 1 mls/min Documented by: Remdesivir 100 mg/ Sodium (Chloride) 250 mls @ 250 mls/hr IV Q24H [facility]; Protocol Stop: 07/14/21 20:59 Last Infusion: 07/11/21 21:43 Dose: Infused Documented by: Levothyroxine Sodium (Levothyroxine Sodium 112 Mcg Tablet) [facility] Stop: 08/09/21 06:29 Last Admin: 07/12/21 05:46 Dose: 112 mcg Documented by: Metoprolol Tartrate (Metoprolol Tartrate 50 Mg Tab) 50 mg PO BID [facility] Stop: 08/10/21 20:59 Last Admin: 07/12/21 09:18 Dose: 50 mg Documented by: Montelukast Sodium (Montelukast Sodium 10 Mg Tablet) 10 mg PO [facility] Stop: 08/09/21 20:59 Last Admin: 07/11/21 20:10 Dose: 10 mg Documented by: Pantoprazole Sodium (Pantoprazole 40 Mg Tab) 40 mg PO [facility] Stop: 08/08/21 22:24 Last Admin: 07/11/21 20:07 Dose: 40 mg Documented by: Polyethylene Glycol (Polyethylene (Miralax) 17 Gm Pack) 17 gm PO DAILY PRN PRN Reason: Constipation Stop: 08/08/21 21:14 Promethazine HCl (Promethazine Hcl 25 Mg/20 Ml Udp) 25 mg PO Q6H PRN PRN Reason: Nausea And Vomiting Stop: 08/09/21 17:46 Sodium Chloride (Sodium Chloride 0.9% 10ml Flush) 30 ml IV Q24H [facility] Stop: 07/14/21 21:01 Last Admin: 07/11/21 21:36 Dose: 30 ml Documented by: Spironolactone (Spironolactone 25 Mg Tab) 25 mg PO [facility] Stop: 08/09/21 08:59 Last Admin: 07/12/21 09:16 Dose: 25 mg Documented by: Terazosin HCl (Terazosin Hcl 5 Mg Cap) 5 mg PO [facility] Stop: 08/08/21 22:24 Last Admin: 07/11/21 20:10 Dose: 5 mg Documented by: Vitamin D (Cholecalciferol 1,000 Units 25 Mcg Tab) 2,000 units PO [facility] Stop: 08/09/21 08:59 Last Admin: 07/12/21 09:16 Dose: 2,000 units Documented by:
[2021-07-12] MEDS: CEFDINIR 300 MG CAP PO SCH (19:25)
[2021-07-12] MEDS: REMDESIVIR 100 MG in SODIUM CHLORIDE 0.9% 230 ML IV SCH (19:25)
[2021-07-12] MEDS: TERAZOSIN HCL 5 MG CAP PO SCH (19:26)
[2021-07-12] MEDS: PANTOprazole 40 MG TAB PO SCH (19:28)
[2021-07-12] MEDS: MONTELUKAST SODIUM 10 MG TABLET PO SCH (19:29)
[2021-07-12] MEDS: SODIUM CHLORIDE 0.9% 10ML FLUSH IV SCH (20:51)
[2021-07-13] MEDS: LEVOTHYROXINE SODIUM 112 MCG TABLET PO SCH (06:05)
[2021-07-13] MEDS: ATORVASTATIN 10 MG TAB PO SCH (08:24)
[2021-07-13] MEDS: guaiFENesin 600 MG TABCR PO SCH (08:24)
[2021-07-13] MEDS: SPIRONOLACTONE 25 MG TAB PO SCH (08:24)
[2021-07-13] MEDS: CHOLECALCIFEROL 1,000 UNITS 25 MCG TAB PO SCH (08:25)
[2021-07-13] MEDS: ASPIRIN 81 MG ECTAB PO SCH (08:25)
[2021-07-13] MEDS: allopurinoL 300 MG TAB PO SCH (08:25)
[2021-07-13] MEDS: APIXABAN 2.5 MG TAB PO SCH (08:25)
[2021-07-13] MEDS: CITALOPRAM 20 MG TAB PO SCH (08:25)
[2021-07-13] MEDS: METOPROLOL TARTRATE 50 MG TAB PO SCH (08:25)
[2021-07-13] MEDS: hydrALAZINE HCL 25 MG TAB PO SCH ×2 (08:26→13:59)
[2021-07-13] MEDS: ACYCLOVIR 400 MG TAB PO SCH (08:26)
[2021-07-13] MEDS: CEFDINIR 300 MG CAP PO SCH (08:26)
[2021-07-13 08:46] LABS: Creatinine Clr Calc Pharmacy 40.8 ml/min; Est GFR (Non-African American) 34.5 ml/min
[2021-07-13] MEDS ORDERED: AZITHROMYCIN 250 MG TAB PO SCH (10:15)
--- NOTE | 2021-07-13 10:56 | Discharge Summary ---
Date of Service July 13, 2021 Admission HPI Per Admitting Provider 81 yo M who developed covid like symptoms over the last 2 weeks. Lives with his and daughter who are well. Reports poor appetite but has been compliant with medications. chest pain, no swelling, no weight gain. 2 pillow orthopnea chronically. No diarrhea, no acute urinary symptoms. Denies pain. Overall though doesn't really "know (his) symptoms". Although he uses CPAP regularly at home he declines it here. Complicated cardiac history that appears compensated at this time. Recently with fevers. Admission Exam Per Admitting Provider CONSTITUTIONAL: WNWD, vitals as above, generally ill-appearing, NAD, no tachypnea. EYES: normal conjunctivae, no scleral icterus ENT: external ear and nose normal, MMM NECK: trachea midline, RESPIRATORY: clear to auscultation bilaterally, no crackles, rales or wheezes, normal respiratory effort CARDIOVASCULAR: regular rate and rhythm, S1 and 2 heard without murmurs, gallops or rubs, no JVD, no peripheral edema, GASTROINTESTINAL: soft, nontender, ND, no guarding MUSCULOSKELETAL: strength 5/5 throughout, head is normocephalic and atraumatic SKIN: warm and dry NEUROLOGIC: CN 2-12 grossly intact, no sensory deficit, normal cognition, normal speech, no tremor, no gross focal deficits PSYCHIATRIC: alert cooperative and oriented to person, place and time. Principal Diagnosis covid pneumonia infectious diarrhea 2/2 shigella vs E coli Acute UTI Discharge Exam CONSTITUTIONAL: WNWD, vitals as above, generally ill-appearing, NAD, no tachypnea. EYES: normal conjunctivae, no scleral icterus ENT: external ear and nose normal, MMM NECK: trachea midline, RESPIRATORY: clear to auscultation bilaterally, no crackles, rales or wheezes, normal respiratory effort CARDIOVASCULAR: regular rate and rhythm, S1 and 2 heard without murmurs, gallops or rubs, no JVD, no peripheral edema, GASTROINTESTINAL: soft, nontender, ND, no guarding MUSCULOSKELETAL: strength 5/5 throughout, head is normocephalic and atraumatic SKIN: warm and dry NEUROLOGIC: CN 2-12 grossly intact, no sensory deficit, normal cognition, normal speech, no tremor, no gross focal deficits PSYCHIATRIC: alert cooperative and oriented to person, place and time. Discharge Data Allergies Allergy/AdvReac Type Severity Reaction Status Date / Time No Known Allergies Allergy Verified 07/15/21 14:35 Consultations 07/09/21 18:25 ED Decision to Admit Stat Ordered Studies Laboratory Results WBC 11.10 K/uL (4.8-10.8) H 07/11/21 07: RBC 4.10 M/uL (4.7-6.1) L 07/11/21 07:22 Hgb 12.8 g/dL (14.0-18.0) L 07/11/21 07: Hct 38.3 % (42-52) L 07/11/21 07: MCV 93.4 fL (80-100) 07/11/21 07: MCH 31.2 pg (25-34) 07/11/21 07: MCHC 33.4 g/dL (32-36) 07/11/21 07: RDW Std Deviation 53.4 fL (36.4-46.3) H 07/11/21 07: RDW Coeff of [place] 15.6 % (11.5-14.5) H 07/11/21 07: Plt Count 167 K/uL (130-400) 07/11/21 07: MPV 12.0 fL (7.4-10.4) H 07/11/21 07: Immature Gran % (Auto) 0.2 % 07/09/21 15:20 Neut % (Auto) 77.1 % 07/09/21 15:20 Lymph % (Auto) 10.5 % 07/09/21 15:20 [place] % (Auto) 12.0 % 07/09/21 15:20 Eos % (Auto) 0.0 % 07/09/21 15:20 Baso % (Auto) 0.2 % 07/09/21 15:20 Neut # (Auto) 4.58 K/uL (1.4-6.5) 07/09/21 15:20 Lymph # (Auto) 0.62 K/uL (1.2-3.4) L 07/09/21 15:20 [place] # (Auto) 0.71 K/uL (0.11-0.59) H 07/09/21 15:20 Eos # (Auto) 0.00 K/uL (0-0.5) 07/09/21 15:20 Baso # (Auto) 0.01 K/uL (0-0.2) 07/09/21 15:20 Immature Gran # (Auto) 0.01 K/uL (0.00-0.02) 07/09/21 15:20 PT 10.4 Seconds (9.0-12.0) 07/09/21 15:20 INR 1.0 (0.9-1.1) 07/09/21 15:20 APTT 34.6 Seconds (21.0-31.0) H 07/09/21 15:20 PTT Ratio 1.3 07/09/21 15:20 Sodium 135 mmol/L (136-145) L 07/11/21 07:22 Potassium 4.1 mmol/L (3.5-5.1) 07/11/21 07:22 Chloride 105 mmol/L (98-107) 07/11/21 07:22 Carbon Dioxide 22 mmol/L (21-32) 07/11/21 07:22 Anion Gap 8.0 (3-11) 07/11/21 07:22 BUN 39 mg/dl (7-18) H D 07/11/21 07:22 Creatinine 1.80 mg/dl (0.6-1.4) H 07/13/21 07:49 Est Cr Clr Drug Dosing 40.8 ml/min 07/13/21 07:49 Est GFR ( Amer) 40.0 ml/min 07/13/21 07:49 Est GFR (Non-Af Amer) 34.5 ml/min 07/13/21 07:49 BUN/Creatinine Ratio 20.7 (10-20) H 07/11/21 07:22 Glucose 99 mg/dl (70-99) 07/11/21 07:22 Calcium 7.5 mg/dl (8.5-10.1) L 07/11/21 07:22 Magnesium 2.0 mg/dl (1.8-2.4) 07/10/21 02:59 Total Bilirubin 0.5 mg/dl (0.2-1) 07/09/21 15:20 AST 49 U/L (15-37) H 07/13/21 07:49 ALT 42 (12-78) 07/13/21 07:49 Alkaline Phosphatase 66 U/L (45-117) 07/09/21 15:20 Troponin I 0.023 ng/ml (0-0.045) 07/10/21 02:59 C-Reactive Protein 8.75 mg/dl (0-0.29) H 07/11/21 07:22 NT-Pro-B Natriuret Pep 2627 pg/ml (0-1800) H 07/10/21 02:59 Total Protein 5.9 gm/dl (6.4-8.2) L 07/09/21 15:20 Albumin 3.1 gm/dl (3.4-5.0) L 07/09/21 15:20 Globulin 2.8 gm/dl (2.5-4.0) 07/09/21 15:20 Albumin/Globulin Ratio 1.1 (0.9-2) 07/09/21 15:20 Procalcitonin 0.22 ng/ml (0-0.5) 07/10/21 02:59 Urine Color Yellow 07/09/21 16:35 Urine Appearance Cloudy (Clear) A 07/09/21 16:35 Urine pH 5.0 (4.5-7.5) 07/09/21 16:35 Ur Specific [place] 1.024 (1.000-1.030) 07/09/21 16:35 Urine Protein 2+ (Negative) H 07/09/21 16:35 Urine Glucose (UA) Negative (Negative) 07/09/21 16:35 Urine Ketones Negative (Negative) 07/09/21 16:35 Urine Blood Negative (Negative) 07/09/21 16:35 Urine Nitrite Negative (Negative) 07/09/21 16:35 Urine Bilirubin Negative (Negative) 07/09/21 16:35 Urine Urobilinogen Negative (Negative) 07/09/21 16:35 Ur Leukocyte Esterase Negative (Negative) 07/09/21 16:35 Urine WBC (Auto) 1-5 /hpf (0-5) 07/09/21 16:35 Urine RBC (Auto) 0-4 /hpf (0-4) 07/09/21 16:35 U Hyaline Cast (Auto) 1-5 /lpf (0-5) 07/09/21 16:35 U Epithel Cells (Auto) >30 /lpf (0-5) H 07/09/21 16:35 Urine Bacteria (Auto) Negative (Negative) 07/09/21 16:35 Urine Yeast Not Reportable 07/09/21 16:35 Stl C. cayetanensis PCR Not Detected (NotDetected) 07/12/21 15:30 Stool Rotavirus A PCR Not Detected (NotDetected) 07/12/21 15:30 Stl Adenov F 40/41 PCR Not Detected (NotDetected) 07/12/21 15:30 Stool Astrovirus (PCR) Not Detected (NotDetected) 07/12/21 15:30 Stool Campylobacter PCR Not Detected (NotDetected) 07/12/21 15:30 Stl C. diff Tox B Gene Negative Cdiff Gene (Neg) 07/12/21 15:30 Stl C. diff Tox A/B PCR Not Detected (NotDetected) 07/12/21 15:30 Stool Cryptosporidium PCR Not Detected (NotDetected) 07/12/21 15:30 Stl E.coli Shiga Tox PCR Not Detected (NotDetected) 07/12/21 15:30 Stl Enterotoxigenic E PCR Not Detected (NotDetected) 07/12/21 15:30 Stool EPEC (PCR) Not Detected (NotDetected) 07/12/21 15:30 Stool EAEC (PCR) Not Detected (NotDetected) 07/12/21 15:30 Stl E. histolytica PCR Not Detected (NotDetected) 07/12/21 15:30 Stool Giardia Lamblia PCR Not Detected (NotDetected) 07/12/21 15:30 Stool Salmonella PCR Not Detected (NotDetected) 07/12/21 15:30 Stool Sapovirus (PCR) Not Detected (NotDetected) 07/12/21 15:30 Stl P. shigelloides PCR Not Detected (NotDetected) 07/12/21 15:30 Stl Shigella/EIEC PCR DETECTED (NotDetected) A* 07/12/21 15:30 St Y.enterocolitica PCR Not Detected (NotDetected) 07/12/21 15:30 Stool Vibrio (PCR) Not Detected (NotDetected) 07/12/21 15:30 Stl Vibrio cholerae PCR Not Detected (NotDetected) 07/12/21 15:30 Stl Norovirus GI/GII PCR Not Detected (NotDetected) 07/12/21 15:30 SARS-CoV-2 (PCR) POSITIVE (Negative) A* 07/09/21 16:35 Influenza Type A (PCR) Negative (Neg) 07/09/21 16:35 Influenza Type B (PCR) Negative (Neg) 07/09/21 16:35 RSV (RT-PCR) Negative (Neg) 07/09/21 16:35 Impressions Chest X-Ray 07/09/21 14:45 XR chest 1V portable HISTORY: Dyspnea COMPARISON: Chest 05/07/2021. FINDINGS: No pneumothorax. No pleural effusions. The cardiac silhouette remains mildly enlarged. There is a left-sided chamber pacemaker. A few small peripheral hazy airspace opacities seen within the mid to lower lung zones. There is also mild central pulmonary vascular congestion without overt edema. IMPRESSION: 1. A few small peripheral hazy airspace opacities within the mid to lower lung zones. This favors a viral pneumonia. 2. There is mild central pulmonary vascular congestion without overt edema. ACT 112: Negative or not required by law. Electronically signed by: Ang Hurley M.D. 07/09/2021 4:09 PM Hospital Course (1) Pneumonia due to COVID-19 virus: Given remdesivir and steroids daily with improvement. Fe danya indicated additional infections and he was found to have a UTI and infectious diarrhea. Fever resolved and he improved clinically.Two step rest revealed need for oxygen supplementation with ambulation but not at rest. (2) Hypoxia: Secondary to pneumonia, plan as above. (3) Acute UTI: Secondary to Proteus. Augmentin given but shifting plan per below in setting of infectious diarrhea result. (4) Diarrhea: Acute infectious diarrhea, may also have been contributing to fever and illness overall. Cefdinir was started (stopped Augmentin)-should cover both UTI and this. Uncertain if Shigella or EIEC, further clarification pending on discharge to reference lab. (5) Atrial fibrillation with rapid ventricular response: Atrial fibrillation with rapid ventricular response in setting of acute pulmonary illness and fever. Continue rate control with metoprolol. Continue apixaban for long-term anticoagulation and stroke prophylaxis. Notably heart rate increased this admission so metoprolol was increased, also. HR better controlled on higher dose. (6) CAD (coronary artery disease): Chronic, stable, continue home medical therapy including baby aspirin, atorvastatin, metoprolol. (7) Hypothyroidism: Chronic, stable, continue levothyroxine per home regimen. (8) CKD (chronic kidney disease), stage III: Creatinine is around his baseline 1.4-1.5. Continue to avoid nephrotoxic substances and renally dose meds as needed. (9) Obstructive sleep apnea on CPAP: Declines to use CPAP in the hospital. Typically does use CPAP at home. (10) Hypertension: Chronic, controlled, continue hydralazine per home regimen. (11) Chronic diastolic CHF (congestive heart failure): Complex cardiac history. Patient is compensated. Dyspnea is presumed solely from Covid pneumonia. Total Time Total Time Spent Total Time Spent (In Minutes): 60 Discharge Plan Discharge Items Patient Disposition: Home - Home Health Services Reason For Visit: COVID PNEUMONIA, DYSPNEA Discharge Diagnosis: covid pneumonia infectious diarrhea 2/2 shigella vs E coli Acute UTI Condition on Discharge: Good Activity: Resume your previous activity Non-emergency contact: Primary Care Provider Call non-emergency contact if: you have any medication questions, your symptoms worsen and your pain is not controlled Follow-up/Referrals: Musa Stout MD [Primary Care Provider] - (Date & Time 07/17/2021 11:00 AM Provider Musa Stout MD [facility] PLEASE NOTE THAT THIS IS A TELEHEALTH VIDEO APPOINTMENT. PLEASE FOLLOW THE INSTRUCTIONS PROVIDED IN YOUR EMAIL. IF YOU HAVE ANY QUESTIONS REGARDING THIS APPOINTMENT, OR IF YOU WISH TO CHANGE THE APPOINTMENT, PLEASE CALL [phone]) Diet: Low Sodium (2gm) Addtl Attending Provider Instructions: Please take all medications as instructed on discharge list below. You were found to have covid pneumonia, and a repeat chest xray is recommended in the next 4 to 6 weeks. This can be ordered by your primary care provider. You were also found to have a urinary tract infection. Please complete the antibiotics as given. You were also found to have an infectious diarrhea. It was not clear from the study if this was secondary to Shigella or enteroinvasive E. coli. You have been given antibiotics to help treat this. Please stay hydrated and during fluids with electrolytes in them, such as Gatorade or Powerade. This is until the diarrhea resolves. Please avoid all milk products as this may make the diarrhea worse. Your heart rate increased during your stay and, as a result, your metoprolol was increased. Your apixaban was decreased by 50% which is the more appropriate dosage for you per pharmacy criteria. It is recommended that you follow-up with your primary care doctor within 1 to 2 weeks of hospital stay. This will be to check on your progress with antibiotics and ensure you are still doing well with your breathing. You have been given supplemental oxygen to use with any ambulation. The need for this will likely decrease over time as you improve. Continue to check your pulse oximeter via your finger home monitor and ensure your oxygen saturation is greater than 88% at all times. It was a pleasure taking care of you! Please call if you have any questions or problems. You can reach a [facility] hospitalist on duty at [facility] 24 hours a day by calling [phone]. Take care of yourself. Bere Bernard, DO [facility] Pending Studies at Discharge: Yes Studies:: definitive stool culture results. Stand-Alone Forms: [facility] Medications and DC Order Prescriptions: New Eliquis 2.5 mg Tablet 2.5 mg PO BID Qty: 60 RF: 0 metoprolol tartrate 50 mg Tablet 50 mg PO BID Qty: 60 RF: 0 (DME) Oxygen Home Liters Per Minute See Rx Instructions .Route Qty: 1 RF: 0 Continued aspirin 81 mg tablet,delayed release (DR/EC) 81 mg PO QAM RF: 0 spironolactone 25 mg tablet 25 mg PO QAM RF: 0 terazosin 5 mg Capsule 5 mg PO HS RF: 0 atorvastatin 10 mg Tablet 5 mg PO QAM RF: 0 omeprazole 40 mg Capsule,Delayed Release(Dr/Ec) 40 mg PO HS RF: 0 citalopram [Celexa] 20 mg Tablet 20 mg PO QAM RF: 0 allopurinol 300 mg Tablet 300 mg PO QAM RF: 0 hydralazine 50 mg Tablet 25 mg PO TID RF: 0 cholecalciferol (vitamin D3) [Vitamin D3] 2,000 unit Capsule 2,000 unit PO QAM RF: 0 levothyroxine 112 mcg Tablet 112 mcg PO QAM RF: 0 acyclovir 400 mg tablet 400 mg PO BID RF: 0 montelukast 10 mg tablet 10 mg PO DAILY RF: 0 Discontinued furosemide [Lasix] 20 mg tablet 20 mg PO DAILY RF: 0 Eliquis 5 mg tablet 5 mg PO BID RF: 0 metoprolol tartrate 25 mg tablet 25 mg PO BID RF: 0 No Action calcium carbonate 500 mg calcium (1,250 mg) Tablet 500 mg PO BID RF: 0 Discharge Orders: Discharge Order (Routine); Ordered 07/13/21 Ordered By: Bere Bernard Admission Data Admit Date/Time: 07/09/21 18:38 Attending Provider: Bere Bernard Admit Provider: Bere Bernard Primary Care Provider: Musa Stout Other Providers: Bere Bernard ; [facility] Other Interventions: Discharge Summary Assessment (RN) Last Done: 07/13/21 15:38
[2021-07-13] MEDS: dexAMETHasone 6 MG in SYRINGE 0 ML IV SCH (11:20)
== END 2021-07-13 17:07 | disposition home health service (06) | DRG 177 ==
LOC: ED 14:31 → EDINP 18:38 → 2S 07-10 19:37

== ENCOUNTER 2021-07-15 14:21 | Inpatient (IN) ==
--- NOTE | 2021-07-15 14:48 | Emergency Department Note ---
Impression & Plan Pneumonia due to COVID-19 virus, Hypoxia, Anemia ED Provider Note NAME: LLOYD CURTIS AGE: 81 SEX: M : 1940 ARRIVES VIA: Ambulance INFORMANT: Patient ED PROVIDER(S): Saúl Sanchez DO CHIEF COMPLAINT: shortness of breath HPI: Patient is an 81-year-old male with a past medical history of Covid, PE, B- cell leukocytosis, CHF, CAD, CKD, left bundle branch block with an ICD that presents to the ER for shortness of breath. He was admitted to the hospital for Covid and discharged about a week ago. He was discharged on 2 L. He became significantly short of breath this morning. They increased him to 3 eventually to 6 L as he was hypoxic in the low 80s. He denies any chest pain. No belly pain, nausea, vomiting, or diarrhea. No dysuria, urgency, or frequency. He notes that shortness of breath is worse with lying flat and improves with sitting up. No other exacerbating or remitting factors. ROS: See above HPI for pertinent positives & negatives. A total of 10 systems reviewed and were otherwise negative. PAST MEDICAL HISTORY:See Below PAST SURGICAL HISTORY:See Below FAMILY HISTORY:See Below SOCIAL HISTORY:See Below HOME MEDICATIONS:See Below ALLERGIES:See Below VITALS:See Below PHYSICAL EXAMINATION: GENERAL: Sitting up in bed, alert, disheveled, chronically ill-appearing, on 6 L nasal cannula EYE EXAM: normal conjunctiva. PERRL and EOM's grossly intact. OROPHARYNX: no exudate, no erythema, lips, buccal mucosa, and tongue normal and mucous membranes are moist NECK: supple, no nuchal rigidity, no adenopathy, non-tender LUNGS: Diminished bilaterally. Normal chest wall mechanics HEART: no murmurs, S1 normal and S2 normal ABDOMEN: abdomen soft, non-tender, normo-active bowel sounds, no masses, no rebound or guarding. UPPER EXTREMITIES: upper extremities are grossly normal. LOWER EXTREMITIES: No pitting edema. NEURO EXAM: Normal sensorium, cranial nerves II-XII grossly intact, normal speech, no gross weakness of arms, no gross weakness of legs. MEDICAL DECISION MAKING: Patient is an 81-year-old male who presents ER for worsening shortness of breath. He was found to be having increased hypoxia at home. He was previously Covid positive discharged on 2 L nasal cannula. He was titrated up to 6 L and was about 94 to 95%. IV was established blood was obtained. Labs show no significant leukocytosis but a mild anemia 11.9. BMP was fairly unremarkable. LFTs bilirubin was unremarkable as well. proBNP was up at 4500. Covid was still positive. Chest x-ray with worsening infiltrates and some cephalization questioning some CHF especially as symptoms are worse with lying flat. He was g iven some IV Lasix. Consider PE but on NOAC fever very unlikely. He was updated bedside discussed with hospitalist admitted for further work-up. EKG did show rate controlled A. fib. Triage Nursing notes reviewed. Limited review of prior medical records performed Vital Signs: reviewed and remarkable for no significant abnormalities Differential diagnosis: Differential diagnoses includes but is not limited to pneumonia, bronchitis, COPD/Asthma exacerbation, pneumothorax, pulmonary embolism, congestive heart failure, acute coronary syndrome ER treatment provided: See below Diagnostics interpreted by me: ECG: A. fib rate 89 PVCs present QTC 511 Left axis Intermittently paced Cardiac Monitoring: An order was placed for continuous cardiac monitoring. The monitor shows a rate of 82 with sinus rhythm. Laboratory studies: As stated above and show below. Imaging studies: Chest x-ray with worsening infiltrates bilaterally Consultation(s): Discussed with hospitalist for further evaluation Procedures: none Critical Care: I have personally spent 31 minutes of critical care time in the direct management of this patient. This includes bedside care, interpretation of diagnostic studies, and testing, discussion with consultants, patient, and family members, and other required patient management activities. This 31 minutes is in excess of all separately billable procedures. Past Med/Surg History Medical History BPH without obstruction/lower urinary tract symptoms Carpal tunnel syndrome Chronic diastolic CHF (congestive heart failure) Chronic sinusitis CKD (chronic kidney disease), stage III Escherichia coli infection GERD (gastroesophageal reflux disease) Gout History of paroxysmal supraventricular tachycardia History of pulmonary embolism Hyperlipidemia Hypertension Insomnia Klebsiella infection Lambda light chain myeloma LBBB (left bundle branch block) Monoclonal B-cell lymphocytosis Morbid (severe) obesity due to excess calories Neuralgia ON SIDE OF FACE Nonobstructive atherosclerosis of coronary artery By 05/2010 catheterization Obstructive sleep apnea on CPAP Pericardial effusion Pleural effusion, left Prolonged QT interval Recurrent Clostridioides difficile infection Restless leg syndrome Surgical History H/O cataract removal with insertion of prosthetic lens H/O knee surgery H/O sinus surgery History of appendectomy History of bilateral knee arthroplasty History of cataract surgery RT/LEFT History of colonoscopy History of esophagogastroduodenoscopy (EGD) History of hip surgery History of tooth extraction History of total right hip arthroplasty Hx of cholecystectomy Status post total hip replacement, left Family History Father Heart disease Mother Diabetes Hypertension Brother Family hx of colon cancer Social History Smoking Status: Never smoker Second Hand Exposure: No; Hx Alcohol Use: No Hx Substance Use: No Preferred Language: Citizen Of [place] Communication Ability: Effective Inside B2[employer] Sales Required: No Beliefs That Will Affect Care: None marital status: Current Living Situation: Family How many Children do You have: 2 Feels Safe at Home: Yes Assistive Devices: Cane Allergies Allergies Allergy/AdvReac Type Severity Reaction Status Date / Time No Known Allergies Allergy Verified 07/15/21 14:35 Home Meds Home Medications Medication Instructions Recorded Confirmed allopurinol 300 mg tablet 300 mg PO QAM 04/30/18 07/15/21 atorvastatin 10 mg tablet 5 mg PO QAM 04/30/18 07/15/21 cholecalciferol (vitamin D3) 50 2,000 unit PO QAM 04/30/18 07/15/21 mcg (2,000 unit) capsule (Vitamin D3) citalopram 20 mg tablet (Celexa) 20 mg PO QAM 04/30/18 07/15/21 hydralazine 50 mg tablet 25 mg PO TID 04/30/18 07/15/21 omeprazole 40 mg capsule,delayed 40 mg PO HS 04/30/18 07/15/21 release terazosin 5 mg capsule 5 mg PO HS 04/30/18 07/15/21 levothyroxine 112 mcg tablet 112 mcg PO QAM 05/22/19 07/15/21 aspirin 81 mg tablet,delayed 81 mg PO QAM 03/10/20 07/15/21 release spironolactone 25 mg tablet 25 mg PO QAM 03/10/20 07/15/21 acyclovir 400 mg tablet 400 mg PO BID 05/16/20 07/15/21 montelukast 10 mg tablet 10 mg PO DAILY 05/07/21 07/15/21 calcium carbonate 500 mg calcium 500 mg PO BID 07/15/21 07/15/21 (1,250 mg) tablet Previous Rx's Medication Instructions Recorded Oxygen Home #1 ea 07/13/21 apixaban 2.5 mg tablet (Eliquis) 2.5 mg PO BID #60 tab 07/13/21 cefdinir 300 mg capsule 300 mg PO Q12 #12 cap 07/13/21 metoprolol tartrate 50 mg tablet 50 mg PO BID #60 tab 07/13/21 Results & Data (ED) Vital Signs Vital Signs - 24 hr 07/15/21 14:50 07/15/21 14:55 Temperature 37.2 C Temperature Source Oral Pulse Rate 81 Pulse Rhythm Irregular Respiratory Rate 33 H Respiratory Effort / Characteristics Spontaneous SOB on Exertion Respiratory Pattern Tachypnea Blood Pressure 135/95 Blood Pressure Mean 108 Pulse Oximetry 97 87 L Oxygen Delivery Method Nasal Cannula Nasal Cannula Oxygen Flow Rate 6 0 Sepsis Recent Fever Within 48 Hours Yes Sepsis New/Unexplained Change in Mental Status No Sepsis Action Taken by Nursing No Action Required Oxygen Flow Rate - Titration 6 Pulse Oximetry Post Tiitration 97 Laboratory Data Result diagrams: 07/15/21 14:50 07/15/21 14:50 Lab Results 07/15/21 07/15/21 07/15/21 Range/Units 14:50 14:50 14:50 WBC 10.06 (4.8-10.8) K/uL RBC 3.92 L (4.7-6.1) M/uL Hgb 11.9 L (14.0-18.0) g/dL Hct 36.4 L (42-52) % MCV 92.9 (80-100) fL MCH 30.4 (25-34) pg MCHC 32.7 (32-36) g/dL RDW Std Deviation 51.8 H (36.4-46.3) fL RDW Coeff of [place] 15.4 H (11.5-14.5) % Plt Count 201 (130-400) K/uL MPV 12.4 H (7.4-10.4) fL Immature Gran % (Auto) 0.2 % Neut % (Auto) 87.0 % Lymph % (Auto) 4.3 % [place] % (Auto) 8.5 % Eos % (Auto) 0.0 % Baso % (Auto) 0.0 % Neut # (Auto) 8.75 H (1.4-6.5) K/uL Lymph # (Auto) 0.43 L (1.2-3.4) K/uL [place] # (Auto) 0.86 H (0.11-0.59) K/uL Eos # (Auto) 0.00 (0-0.5) K/uL Baso # (Auto) 0.00 (0-0.2) K/uL Immature Gran # (Auto) 0.02 (0.00-0.02) K/uL ESR (0-20) mm/hr Sodium 140 (136-145) mmol/L Potassium 3.6 (3.5-5.1) mmol/L Chloride 105 (98-107) mmol/L Carbon Dioxide 28 (21-32) mmol/L Anion Gap 7.0 (3-11) BUN 28 H (7-18) mg/dl Creatinine 1.33 (0.6-1.4) mg/dl Est Cr Clr Drug Dosing 55.2 ml/min Est GFR ( Amer) 57.7 ml/min Est GFR (Non-Af Amer) 49.8 ml/min BUN/Creatinine Ratio 21.2 H (10-20) Glucose 133 H (70-99) mg/dl Calcium 7.4 L (8.5-10.1) mg/dl Total Bilirubin 0.9 (0.2-1) mg/dl AST 32 (15-37) U/L ALT 51 (12-78) Alkaline Phosphatase 53 (45-117) U/L Troponin I 0.015 (0-0.045) ng/ml C-Reactive Protein (0-0.29) mg/dl NT-Pro-B Natriuret Pep 4511 H (0-1800) pg/ml Total Protein 5.4 L (6.4-8.2) gm/dl Albumin 2.8 L (3.4-5.0) gm/dl Globulin 2.6 (2.5-4.0) gm/dl Albumin/Globulin Ratio 1.1 (0.9-2) Lipase 303 (73-393) U/L Procalcitonin (0-0.5) ng/ml SARS-CoV-2 (PCR) POSITIVE A* (Negative) Influenza Type A (PCR) Negative (Neg) Influenza Type B (PCR) Negative (Neg) RSV (RT-PCR) Negative (Neg) 07/15/21 07/15/21 07/15/21 Range/Units 14:50 14:50 14:50 WBC (4.8-10.8) K/uL RBC (4.7-6.1) M/uL Hgb (14.0-18.0) g/dL Hct (42-52) % MCV (80-100) fL MCH (25-34) pg MCHC (32-36) g/dL RDW Std Deviation (36.4-46.3) fL RDW Coeff of [place] (11.5-14.5) % Plt Count (130-400) K/uL MPV (7.4-10.4) fL Immature Gran % (Auto) % Neut % (Auto) % Lymph % (Auto) % [place] % (Auto) % Eos % (Auto) % Baso % (Auto) % Neut # (Auto) (1.4-6.5) K/uL Lymph # (Auto) (1.2-3.4) K/uL [place] # (Auto) (0.11-0.59) K/uL Eos # (Auto) (0-0.5) K/uL Baso # (Auto) (0-0.2) K/uL Immature Gran # (Auto) (0.00-0.02) K/uL ESR 7 (0-20) mm/hr Sodium (136-145) mmol/L Potassium (3.5-5.1) mmol/L Chloride (98-107) mmol/L Carbon Dioxide (21-32) mmol/L Anion Gap (3-11) BUN (7-18) mg/dl Creatinine (0.6-1.4) mg/dl Est Cr Clr Drug Dosing ml/min Est GFR ( Amer) ml/min Est GFR (Non-Af Amer) ml/min BUN/Creatinine Ratio (10-20) Glucose (70-99) mg/dl Calcium (8.5-10.1) mg/dl Total Bilirubin (0.2-1) mg/dl AST (15-37) U/L ALT (12-78) Alkaline Phosphatase (45-117) U/L Troponin I (0-0.045) ng/ml C-Reactive Protein 6.91 H (0-0.29) mg/dl NT-Pro-B Natriuret Pep (0-1800) pg/ml Total Protein (6.4-8.2) gm/dl Albumin (3.4-5.0) gm/dl Globulin (2.5-4.0) gm/dl Albumin/Globulin Ratio (0.9-2) Lipase (73-393) U/L Procalcitonin 0.21 (0-0.5) ng/ml SARS-CoV-2 (PCR) (Negative) Influenza Type A (PCR) (Neg) Influenza Type B (PCR) (Neg) RSV (RT-PCR) (Neg) Administered Medications Hydralazine HCl (Hydralazine Hcl 25 Mg Tab) 25 mg PO TID VINCENT Stop: 08/14/21 18:59 Last Admin: 07/15/21 19:31 Dose: 25 mg Documented by: [id number] Discontinued Medications Dexamethasone Sodium Phosphate (DexamethasonePf 10 Mg/Ml Vial) 6 mg IV NOW ONE Stop: 07/15/21 16:24 Last Admin: 07/15/21 17:55 Dose: 6 mg Documented by: [id number] Furosemide (Furosemide Inj 20 Mg/2 Ml Vial) 20 mg IV NOW STA Stop: 07/15/21 16:24 Last Admin: 07/15/21 17:56 Dose: 20 mg Documented by: [id number] Furosemide (Furosemide 40 Mg/4 Ml Vial) 40 mg IV ONE ONE Stop: 07/15/21 17:05 Last Admin: 07/15/21 17:55 Dose: 40 mg Documented by: [id number] Imaging Data Radiologist's Impression: Chest X-Ray 07/15/21 14:47 XR chest 1V portable HISTORY: Shortness of breath. Atypical chest pain. COMPARISON: Chest 07/09/2021. FINDINGS: No pneumothorax. No pleural effusion. The heart remains mildly enlarged. There is a left-sided dual-chamber pacemaker. Patchy multifocal bilateral airspace opacities have slightly progressed. There is mild central pulmonary vascular congestion without overt edema. IMPRESSION: 1. Interval progression of the patchy multifocal bilateral airspace opacities consistent with a viral pneumonia. 2. Cardiomegaly with mild central pulmonary vascular congestion. ACT 112: Negative or not required by law. Electronically signed by: Ang Hurley M.D. 07/15/2021 3:35 PM Discharge Plan Visit Data Chief Complaint: Shortness of Breath/Dyspnea Stated Complaint: SOB ED Provider: Saúl Sanchez Discharge Problem: Pneumonia due to COVID-19 virus, Hypoxia, Anemia Discharge Problem: Anemia Qualifiers: Anemia type: unspecified type Qualified Code(s): D64.9 - Anemia, unspecified
[2021-07-15 15:15] LABS: Hematocrit (blood only) 36.4 % (42-52); Hemoglobin 11.9 g/dL (14.0-18.0); Immature Granulocytes # (auto) 0.02 K/uL (0.00-0.02); Immature Granulocytes % (auto) 0.2 %; Lymphocytes # (auto) 0.43 K/uL (1.2-3.4); Lymphocytes % (auto) 4.3 %; Mean Corpuscular Hemoglobin 30.4 pg (25-34); Mean Corpuscular Hgb Conc 32.7 g/dL (32-36); Mean Corpuscular Volume 92.9 fL (80-100); Mean Platelet Volume 12.4 fL (7.4-10.4); Monocytes # (auto) 0.86 K/uL (0.11-0.59); Monocytes % (auto) 8.5 %; Neutrophils # (auto) 8.75 K/uL (1.4-6.5); Platelet Count 201 K/uL (130-400); RDW Coefficient of Variation 15.4 % (11.5-14.5); RDW Standard Deviation 51.8 fL (36.4-46.3); Red Blood Count 3.92 M/uL (4.7-6.1); White Blood Count 10.06 K/uL (4.8-10.8)
[2021-07-15 15:31] LABS: Albumin Level 2.8 gm/dl (3.4-5.0); BUN Creatinine Ratio 21.2 (10-20); Calcium 7.4 mg/dl (8.5-10.1); Creatinine Clr Calc Pharmacy 55.2 ml/min; Est GFR (African American) 57.7 ml/min; Est GFR (Non-African American) 49.8 ml/min; Potassium 3.6 mmol/L (3.5-5.1)
[2021-07-15 15:36] LABS: Albumin Globulin Ratio 1.1 (0.9-2); Bilirubin,Total 0.9 mg/dl (0.2-1); Globulin 2.6 gm/dl (2.5-4.0); Total Protein 5.4 gm/dl (6.4-8.2); Troponin I 0.015 ng/ml (0-0.045)
--- NOTE | 2021-07-15 15:36 | XRay Report ---
XR chest 1V portable HISTORY: Shortness of breath. Atypical chest pain. COMPARISON: Chest 07/09/2021. FINDINGS: No pneumothorax. No pleural effusion. The heart remains mildly enlarged. There is a left-si ded dual-chamber pacemaker. Patchy multifocal bilateral airspace opacities have slightly progressed. There is mild central pulmonary vascular congestion without overt edema. IMPRESSION: 1. Interval progression of the patchy multifocal bilateral airspace opacities consistent with a viral pneumonia. 2. Cardiomegaly with mild central pulmonary vascular congestion. ACT 112: Negative or not required by law. Electronically signed by: Ang Hurley M.D. 07/15/2021 3:35 PM
[2021-07-15 15:55] LABS: Influenza A virus by PCR Negative (Neg); Influenza B virus by PCR Negative (Neg); RSV by PCR Negative (Neg)
[2021-07-15] MEDS ORDERED: dexAMETHasone**PF** 10 MG/ML VIAL IV ONE (16:23)
[2021-07-15] MEDS ORDERED: FUROSEMIDE INJ 20 MG/2 ML VIAL IV STA (16:23)
[2021-07-15 16:27] LABS: SARS CoV2 RNA(COVID-19) InHosp POSITIVE (Negative)
--- NOTE | 2021-07-15 16:38 | History & Physical Report ---
Date of Service July 15, 2021 Assessment & Plan (1) Respiratory failure with hypoxia: (2) Pneumonia due to COVID-19 virus: (3) Acute on chronic diastolic CHF (congestive heart failure): (4) CAD (coronary artery disease): (5) UTI (urinary tract infection): (6) CKD (chronic kidney disease), stage III: (7) Diarrhea: (8) LBBB (left bundle branch block): (9) Hypertension: (10) Major depression: (11) Obstructive sleep apnea on CPAP: Plan: This is an 81yo M with a PMH of Covid, PE, B-cell leukocytosis, chronic diastolic heart failure, CAD, CKD III, left bundle branch block and history of tachy deborah syndrome with an ICD that presents the ER for worsening shortness of breath. Covid pneumonia Acute respiratory failure with hypoxia Was recently admitted from 07/09-07/13 for covid pneumonia. Discharged home on 2L NC O2 Increasing oxygen requirement since discharge 07/13/21 CXR: worsening BL pneumonia Possible ARDS,component of diastolic CHF exacerbation Dexamethasone IV, already completed Remdesivir Incentive spirometry, flutter valve, proning Checking CRP, ESR, Ferritin Procal negative, will hold off on IV antibiotics for now Routine pulm consult Acute on chronic diastolic HF CXR with Cardiomegaly with mild central pulmonary vascular congestion Given additional Lasix IV 40mg in ED for total of 60mg Strict I&Os, daily weights Proteus UTI Continue cefdinir course started on previous admission (due to complete course 07/18) Infectious diarrhea Shigella on stool culture from last week Continue cefdinir course started on previous admission (due to complete course 07/18) Atrial fibrillation Metoprolol dose increased during previous admission due to A fib with RVR- continue Apixiban for anticoagulation CAD (coronary artery disease) Chronic, stable, continue home medical therapy including baby aspirin, atorvastatin, metoprolol Hypothyroidism Continue levothyroxine CKD (chronic kidney disease), stage III Creatinine is around his baseline at 1.33 (mid 1s). Continue to avoid nephrotoxic substances and renally dose meds as needed Hypertension Continue hydralazine, metoprolol Obstructive sleep apnea on CPAP Has previously declined to use CPAP in the hospital. Typically does use CPAP at home DVT Ppx: Apixaban Code status: FULL PCP: Girish Dispo: Admitted to PCU Patient seen in collaboration with Dr. Maldonado. Please see addendum. History of Present Illness Primary Care Provider: Musa Stout MD This is an 81yo M with a PMH of Covid, PE, B-cell leukocytosis, chronic diastolic heart failure, CAD, CKD III, left bundle branch block, NAHEED on CPAP and history of tachy deborah syndrome with an ICD that presents the ER for worsening s hortness of breath.Was recently admitted from 07/09-07/13 for covid pneumonia. Discharged home on 2L NC O2. Also found to have proteus UTI and infectious diarrhea and was discharged on cefdinir. [place] okay initially but has become significantly more short of breath in past 2 days despite increasing oxygen eventually to 6L NC. Endorses ongoing dry cough, dyspnea on exertion and orthopnea. Poor appetite. No fever, chills, lightheadedness, CP, palpitations, nausea, vomiting, dysuria or diarrhea. No weight gain or lower extremity swelling. Daughter manages medication but no changes since discharge home on 07/23 that he knows of. Uses CPAP HS. Allergies Allergy/AdvReac Type Severity Reaction Status Date / Time No Known Allergies Allergy Verified 07/15/21 14:35 Home Medications Medication Instructions Recorded Confirmed Type allopurinol 300 mg tablet 300 mg PO QAM 04/30/18 07/15/21 History atorvastatin 10 mg tablet 5 mg PO QAM 04/30/18 07/15/21 History cholecalciferol (vitamin D3) 50 2,000 unit PO QAM 04/30/18 07/15/21 History mcg (2,000 unit) capsule (Vitamin D3) citalopram 20 mg tablet (Celexa) 20 mg PO QAM 04/30/18 07/15/21 History hydralazine 50 mg tablet 25 mg PO TID 04/30/18 07/15/21 History omeprazole 40 mg capsule,delayed 40 mg PO HS 04/30/18 07/15/21 History release terazosin 5 mg capsule 5 mg PO HS 04/30/18 07/15/21 History levothyroxine 112 mcg tablet 112 mcg PO QAM 05/22/19 07/15/21 History aspirin 81 mg tablet,delayed 81 mg PO QAM 03/10/20 07/15/21 History release spironolactone 25 mg tablet 25 mg PO QAM 03/10/20 07/15/21 History acyclovir 400 mg tablet 400 mg PO BID 05/16/20 07/15/21 History montelukast 10 mg tablet 10 mg PO DAILY 05/07/21 07/15/21 History Oxygen Home #1 ea 07/13/21 07/15/21 Rx apixaban 2.5 mg tablet (Eliquis) 2.5 mg PO BID #60 tab 07/13/21 07/15/21 Rx cefdinir 300 mg capsule 300 mg PO Q12 #12 cap 07/13/21 07/15/21 Rx metoprolol tartrate 50 mg tablet 50 mg PO BID #60 tab 07/13/21 07/15/21 Rx calcium carbonate 500 mg calcium 500 mg PO BID 07/15/21 07/15/21 History (1,250 mg) tablet Past Med/Surg History Medical History BPH without obstruction/lower urinary tract symptoms Carpal tunnel syndrome Chronic diastolic CHF (congestive heart failure) Chronic sinusitis CKD (chronic kidney disease), stage III Escherichia coli infection GERD (gastroesophageal reflux disease) Gout History of paroxysmal supraventricular tachycardia History of pulmonary embolism Hyperlipidemia Hypertension Insomnia Klebsiella infection Lambda light chain myeloma LBBB (left bundle branch block) Monoclonal B-cell lymphocytosis Morbid (severe) obesity due to excess calories Neuralgia ON SIDE OF FACE Nonobstructive atherosclerosis of coronary artery By 05/2010 catheterization Obstructive sleep apnea on CPAP Pericardial effusion Pleural effusion, left Prolonged QT interval Recurrent Clostridioides difficile infection Restless leg syndrome Surgical History (Updated 07/16/21 @ 17:11 by Shahram Nicole PA-C) H/O cataract removal with insertion of prosthetic lens H/O knee surgery H/O sinus surgery History of appendectomy History of bilateral knee arthroplasty History of cataract surgery RT/LEFT History of colonoscopy History of esophagogastroduodenoscopy (EGD) History of hip surgery History of thoracentesis July [address] Jeffries. No bacterial growth or malignancy Pleurx catheter placed July 2019. Removed September 2019 History of tooth extraction History of total right hip arthroplasty Hx of cholecystectomy Status post total hip replacement, left Family History Father Heart disease Mother Diabetes Hypertension Brother Family hx of colon cancer Social History Smoking Status: Never smoker Second Hand Exposure: No; Hx Alcohol Use: No Hx Substance Use: No Preferred Language: Bengali Communication Ability: Effective Communication Ability Comment: Pt is exhausted at this time and not up to answering a lot of questions. Stenotype Operator Required: No Beliefs That Will Affect Care: None marital status: Current Living Situation: Personal Care Facility How many Children do You have: 2 Feels Safe at Home: Yes Safety Concerns: Feels Safe At This Time Assistive Devices: Cane and Walker Assistive Devices Comment: cane with pt. Upper denture taken out and cleaned. no lower dent. Review of Systems Review of Systems: At least ten systems reviewed and negative except as noted in the HPI. Physical Exam Physical Exam: Please see Dr. Maldonado's addendum for physical exam. Results & Data Results & Data ([facility]) Vital Signs (Past 12 Hours) Vital Signs Temp Pulse Resp BP Pulse Ox 07/15/21 14:55 87 L 07/15/21 14:50 37.2 C 81 33 H 135/95 97 Laboratory Results Short CBC 07/15/21 Range/Units 14:50 WBC 10.06 (4.8-10.8) K/uL Hgb 11.9 L (14.0-18.0) g/dL Hct 36.4 L (42-52) % Plt Count 201 (130-400) K/uL BMP 07/15/21 14:50 Sodium 140 Potassium 3.6 Chloride 105 Carbon Dioxide 28 BUN 28 H Creatinine 1.33 Glucose 133 H Calcium 7.4 L Cardiac Enzymes 07/15/21 Range/Units 14:50 Troponin I 0.015 (0-0.045) ng/ml Liver Function 07/15/21 Range/Units 14:50 Total Bilirubin 0.9 (0.2-1) mg/dl AST 32 (15-37) U/L ALT 51 (12-78) Alkaline Phosphatase 53 (45-117) U/L Albumin 2.8 L (3.4-5.0) gm/dl Diagnostic Findings Chest X-Ray 07/15/21 14:47 XR chest 1V portable HISTORY: Shortness of breath. Atypical chest pain. COMPARISON: Chest 07/09/2021. FINDINGS: No pneumothorax. No pleural effusion. The heart remains mildly enlarged. There is a left-sided dual-chamber pacemaker. Patchy multifocal bilateral airspace opacities have slightly progressed. There is mild central pulmonary vascular congestion without overt edema. IMPRESSION: 1. Interval progression of the patchy multifocal bilateral airspace opacities consistent with a viral pneumonia. 2. Cardiomegaly with mild central pulmonary vascular congestion. ACT 112: Negative or not required by law. Electronically signed by: Ang Hurley M.D. 07/15/2021 3:35 PM
[2021-07-15] MEDS ORDERED: FUROSEMIDE 40 MG/4 ML VIAL IV ONE (17:04)
--- NOTE | 2021-07-15 18:14 | Communication Note ---
Date of Service: July 15, 2021 Attending Addendum: care coordinated with AHMET Tamayo please refer to her notes for full details, I agree with her notes patient seen and examined, records reviewed by myself as well on exam, patient seen resting in bed, not in distress on 6 L Nasal cannula conversant, no accessory muscle use reports breathing is about the same as admission has dry cough no chest pain no headache, dizziness, palpitations no other symptoms VS noted and reviewed oriented x 3, not in distress, speaks in sentences with no effort nor accessory muscle use normal rate, regular rhythm, no murmurs mild rales at the bases non distended, soft, nontender no bipedal edema, erythema, warmth no neuro deficits WBC 10.0 Hg 11.9 Crea 1.3 ASSESSMENT AND PLAN> ACUTE HYPOXIC RESPIRATORY FAILURE COVID 19 PNEUMONIA increasing oxygen requirement since discharge 07/13/21 CXR: worsening BL pneumonia possible ARDS, secondary Bacterial Infection, component of CHF exacerbation, Diastolic - Dexamethasone IV already completed Remdesivir Incentive spirometry, flutter valve, proning - check Procal, CRP, ESR, Ferritin if procal increased, start IV antibiotics - additional Lasix IV 40mg - monitor closely other diagnoses and plan of care as per AHMET Tamayo's notes Stanley Maldonado MD
[2021-07-15] MEDS: hydrALAZINE HCL 25 MG TAB PO SCH ×2 (19:31→23:32)
[2021-07-15] MEDS ORDERED: POLYETHYLENE (MIRALAX) 17 GM PACK PO PRN (22:13)
[2021-07-15] MEDS ORDERED: ONDANSETRON INJ 2 MG/ML 2 ML VIAL IV PRN (22:13)
[2021-07-15] MEDS ORDERED: ACETAMINOPHEN 325 MG TAB PO PRN (22:13)
[2021-07-15] MEDS: CALCIUM CARBONATE 1250MG TAB PO SCH (23:31)
[2021-07-15] MEDS: TERAZOSIN HCL 5 MG CAP PO SCH (23:31)
[2021-07-15] MEDS: CEFDINIR 300 MG CAP PO SCH (23:31)
[2021-07-15] MEDS: APIXABAN 2.5 MG TAB PO SCH (23:32)
[2021-07-15] MEDS: PANTOprazole 40 MG TAB PO SCH (23:32)
[2021-07-15] MEDS: ACYCLOVIR 400 MG TAB PO SCH (23:33)
[2021-07-15] MEDS: METOPROLOL TARTRATE 50 MG TAB PO SCH (23:33)
[2021-07-16] MEDS: ALBUTEROL HFA 8 GM INHALER INH SCH ×3 (00:30→08:22)
[2021-07-16] MEDS: LEVOTHYROXINE SODIUM 112 MCG TABLET PO SCH (05:58)
--- NOTE | 2021-07-16 06:30 | Electrocardiogram Report ---
Test Reason : Blood Pressure : / mmHG Vent. Rate : 089 BPM Atrial Rate : 015 BPM P-R Int : 000 ms QRS Dur : 096 ms QT Int : 420 ms P-R-T Axes : 000 -25 142 degrees QTc Int : 511 ms Atrial fibrillation with premature ventricular or aberrantly conducted complexes with occasional vent ricular-paced complexes Low voltage QRS Left bundle branch block Abnormal ECG When compared with ECG of 11-JUL-2021 07:54, Ventricular paced complex is now present Confirmed by Raphael Feliciano ([id number]) on 07/16/2021 6:29:54 AM Referred By: Confirmed By:Raphael Feliciano
[2021-07-16 08:23] LABS: Hematocrit (blood only) 39.1 % (42-52); Hemoglobin 13.1 g/dL (14.0-18.0); Mean Corpuscular Hemoglobin 31.1 pg (25-34); Mean Corpuscular Hgb Conc 33.5 g/dL (32-36); Mean Corpuscular Volume 92.9 fL (80-100); Mean Platelet Volume 12.8 fL (7.4-10.4); Platelet Count 205 K/uL (130-400); RDW Coefficient of Variation 15.2 % (11.5-14.5); RDW Standard Deviation 51.6 fL (36.4-46.3); Red Blood Count 4.21 M/uL (4.7-6.1); White Blood Count 10.35 K/uL (4.8-10.8)
[2021-07-16] MEDS ORDERED: ALBUTEROL HFA 8 GM INHALER INH PRN (08:37)
[2021-07-16] MEDS: dexAMETHasone 6 MG in SYRINGE 0 ML IV SCH (08:41)
[2021-07-16] MEDS: hydrALAZINE HCL 25 MG TAB PO SCH ×3 (08:42→20:12)
[2021-07-16] MEDS: METOPROLOL TARTRATE 50 MG TAB PO SCH ×2 (08:42→20:13)
[2021-07-16] MEDS: ATORVASTATIN 10 MG TAB PO SCH (08:43)
[2021-07-16] MEDS: ASPIRIN 81 MG ECTAB PO SCH (08:43)
[2021-07-16] MEDS: CITALOPRAM 20 MG TAB PO SCH (08:43)
[2021-07-16] MEDS: allopurinoL 300 MG TAB PO SCH (08:44)
[2021-07-16] MEDS: ACYCLOVIR 400 MG TAB PO SCH ×2 (08:44→20:10)
[2021-07-16] MEDS: CHOLECALCIFEROL 1,000 UNITS 25 MCG TAB PO SCH (08:44)
[2021-07-16] MEDS: APIXABAN 2.5 MG TAB PO SCH ×2 (08:44→20:11)
[2021-07-16] MEDS: SPIRONOLACTONE 25 MG TAB PO SCH (08:44)
[2021-07-16] MEDS: CEFDINIR 300 MG CAP PO SCH ×2 (08:44→20:12)
[2021-07-16 08:51] LABS: BUN Creatinine Ratio 21.4 (10-20); Calcium 7.6 mg/dl (8.5-10.1); Creatinine Clr Calc Pharmacy 55.1 ml/min; Est GFR (African American) 58.2 ml/min; Est GFR (Non-African American) 50.2 ml/min; Potassium 3.9 mmol/L (3.5-5.1)
[2021-07-16] MEDS: CALCIUM CARBONATE 1250MG TAB PO SCH ×2 (10:12→20:11)
[2021-07-16] MEDS ORDERED: FUROSEMIDE 40 MG/4 ML VIAL IV ONE (15:48)
--- NOTE | 2021-07-16 17:01 | Pulmonary Consultation ---
Date of Consultation July 16, 2021 Assessment & Plan (1) Respiratory failure with hypoxia: (2) Pneumonia due to COVID-19 virus: (3) Acute on chronic diastolic CHF (congestive heart failure): (4) History of pulmonary embolism: (5) DVT prophylaxis: Attending: Dr. Lemus Impression: 81-year-old male with past medical history as listed above. Presents for readmission for COVID 19 pneumonia. Increased oxygen requirements of 5 L/min by nasal cannula. No respiratory distress. No conversational dyspnea. Breathing comfortably through the nose with his mouth closed and maintaining saturations of 97%. Previous history of pleural fluid with thoracentesis and Pleurx catheter in July 2019 with no recurrence. Lifelong non-smoker. No significant pulmonary disease in the past. No pulmonary function testing. Recommendations: 1. Hypoxemic respiratory failure: * Most likely multifactorial to COVID-19 and to congestive heart failure * proBNP is elevated. Continue diuresis * Continue supplemental oxygen to maintain SaO2 greater than 90% * Can titrate supplemental oxygen now as patient is saturating at 97% * Originally admitted for COVID-19 on 07/09/2021. No longer a candidate for any additional monoclonal therapy * Procalcitonin is negative. Probably does not need antibiotics but certainly would limit to 5 days at this point. * CRP is 6.91. Not a candidate for baricitinib or tocilizumab * Continue to diurese with furosemide and spironolactone * Continue supportive care 2. History of pulmonary emboli: * Currently anticoagulated chronically with apixaban 2.5 mg p.o. twice daily for atrial fibrillation * No pleuritic pain, no tachycardia, no hemoptysis. * Continue supportive care and chronic anticoagulation 3. History of pleural effusion: * No intervention since September 2019 * Most likely secondary to congestive heart failure Thank you for including us in the care of this patient. Please refer to Dr. Lemus's addendum for further recommendations. At this time the pulmonary service will sign off. Please feel free to reconsult or call with further questions. Supervising Physician Co-Signing Physician Notes Patient seen and examined. EMR reviewed. Discussed with AHMET. Agree with as sessment and plan as noted. Appears to be suffering from fluid overload. Recommend continued diuresis. Given his advanced age, underlying malignancy, and comorbid medical conditions, would strongly recommend discussing CODE STATUS. Should the patient's COVID progressed to needing mechanical vent ilation, his prognosis would be poor. Will sign off. Feel free to contact us if we can be of additional assistance History of Present Illness Reason for Consultation: Acute hypoxemic respiratory failure secondary to COVID-19 infection Requesting Physician: Dr. Maldonado Attending Physician: Stanley Maldonado MD History of Present Illness Attending: Dr. Lemus This is an 81-year-old male with a past medical history including CAD, prolonged QT interval, left bundle branch block, obstructive sleep apnea on CPAP, hypertension, BPH, ASCVD, GERD, osteoarthritis, gout, depression, restless leg syndrome, paroxysmal supraventricular tachycardia, hyperlipidemia, hypo thyroidism, CHF, monoclonal B-cell lymphocytosis, lambda light chain myeloma, history of pulmonary embolism, morbid obesity with a BMI of 42.3 kg/m. Patient was admitted to [facility] from 07/09 to 07/13/2021 secondary to COVID. He was discharged on 07 13 on 2 L/min via nasal cannula. During that admission he received remdesivir. After discharge the patient became more short of breath. He presented on 07/15/2021 for further evaluation. He was found to be hypoxic on 2 L/min by nasal cannula and was admitted to the COVID unit with increased supplemental oxygen at 5 L/min via nasal cannula. The patient continues to maintain SaO2 of 97%. He has no tachycardia. He has no distress. On admission, patient was found to have CRP of 6.91, proBNP of 4511, procalcitonin of 0.21, BUN to 28, creatinine of 1.32, QTC of 511 ms Review of records shows the patient did have a pleural effusion in July 2019. A thoracentesis was performed and appeared to be transudate of. Patient had recurrence of fluid and patient received Pleurx catheter placed by Dr. Jeffries 07/27/2019. This Pleurx catheter was then removed 09/21/[address] Jeffries. I do not see any evidence of subsequent pleural effusion or thoracentesis since that time. Pleural fluid analysis that time was negative for bacteria, fungal, malignancy. Patient received 1 dose of Pfizer COVID vaccination 09/04/2020 Influenza vaccination 04/27/2021 Pneumococcal vaccination 11/04/2012 and 11/20/2015 Patient is a lifelong non-smoker Allergies Allergy/AdvReac Type Severity Reaction Status Date / Time No Known Allergies Allergy Verified 07/15/21 14:35 Home Medications Medication Instructions Recorded Confirmed Type allopurinol 300 mg tablet 300 mg PO QAM 04/30/18 07/15/21 History atorvastatin 10 mg tablet 5 mg PO QAM 04/30/18 07/15/21 History cholecalciferol (vitamin D3) 50 2,000 unit PO QAM 04/30/18 07/15/21 History mcg (2,000 unit) capsule (Vitamin D3) citalopram 20 mg tablet (Celexa) 20 mg PO QAM 04/30/18 07/15/21 History hydralazine 50 mg tablet 25 mg PO TID 04/30/18 07/15/21 History omeprazole 40 mg capsule,delayed 40 mg PO HS 04/30/18 07/15/21 History release terazosin 5 mg capsule 5 mg PO HS 04/30/18 07/15/21 History levothyroxine 112 mcg tablet 112 mcg PO QAM 05/22/19 07/15/21 History aspirin 81 mg tablet,delayed 81 mg PO QAM 03/10/20 07/15/21 History release spironolactone 25 mg tablet 25 mg PO QAM 03/10/20 07/15/21 History acyclovir 400 mg tablet 400 mg PO BID 05/16/20 07/15/21 History montelukast 10 mg tablet 10 mg PO DAILY 05/07/21 07/15/21 History Oxygen Home #1 ea 07/13/21 07/15/21 Rx apixaban 2.5 mg tablet (Eliquis) 2.5 mg PO BID #60 tab 07/13/21 07/15/21 Rx cefdinir 300 mg capsule 300 mg PO Q12 #12 cap 07/13/21 07/15/21 Rx metoprolol tartrate 50 mg tablet 50 mg PO BID #60 tab 07/13/21 07/15/21 Rx calcium carbonate 500 mg calcium 500 mg PO BID 07/15/21 07/15/21 History (1,250 mg) tablet Patient History Medical History BPH without obstruction/lower urinary tract symptoms Carpal tunnel syndrome Chronic diastolic CHF (congestive heart failure) Chronic sinusitis CKD (chronic kidney disease), stage III Escherichia coli infection GERD (gastroesophageal reflux disease) Gout History of paroxysmal supraventricular tachycardia History of pulmonary embolism Hyperlipidemia Hypertension Insomnia Klebsiella infection Lambda light chain myeloma LBBB (left bundle branch block) Monoclonal B-cell lymphocytosis Morbid (severe) obesity due to excess calories Neuralgia ON SIDE OF FACE Nonobstructive atherosclerosis of coronary artery By 05/2010 catheterization Obstructive sleep apnea on CPAP Pericardial effusion Pleural effusion, left Prolonged QT interval Recurrent Clostridioides difficile infection Restless leg syndrome Surgical History (Updated 07/16/21 @ 17:11 by Shahrma Nicole PA-C) H/O cataract removal with insertion of prosthetic lens H/O knee surgery H/O sinus surgery History of appendectomy History of bilateral knee arthroplasty History of cataract surgery RT/LEFT History of colonoscopy History of esophagogastroduodenoscopy (EGD) History of hip surgery History of thoracentesis July [address] Jeffries. No bacterial growth or malignancy Pleurx catheter placed July 2019. Removed September 2019 History of tooth extraction History of total right hip arthroplasty Hx of cholecystectomy Status post total hip replacement, left Family History Father Heart disease Mother Diabetes Hypertension Brother Family hx of colon cancer Social History Smoking Status: Never smoker Second Hand Exposure: No; Hx Alcohol Use: No Hx Substance Use: No Preferred Language: Honduran Communication Ability: Effective Communication Ability Comment: Pt is exhausted at this time and not up to answering a lot of questions. Head Holder Required: No Beliefs That Will Affect Care: None marital status: Current Living Situation: Personal Care Facility How many Children do You have: 2 Feels Safe at Home: Yes Safety Concerns: Feels Safe At This Time Assistive Devices: Cane and Walker Assistive Devices Comment: cane with pt. Upper denture taken out and cleaned. no lower dent. Review of Systems Review of Systems: All systems reviewed & are unremarkable except as noted in Subjective Physical Exam Physical Exam: GENERAL : No acute distress. Breathing comfortably through the nose with mouth closed. No use of accessory muscles. EYES: No icterus, gaze conjugate NOSE: No evidence of epistaxis MOUTH: No lesions or candidiasis NECK: Supple LUNGS: Posterior wheezes appreciated. Bibasilar rales appreciated. HEART: Regular, rate controlled ABDOMEN: Soft, NT, ND, BS Present EXTREMITIES: No LE edema, pedal pulses intact NEURO: A&OX3 Results & Data Results & Data ([facility]) Vital Signs (Past 12 Hours) Vital Signs Temp Pulse Pulse Resp BP Pulse Ox 07/16/21 15:15 37.1 C 72 16 137/81 97 07/16/21 11:55 36.5 C 76 20 140/80 96 07/16/21 08:23 87 18 96 07/16/21 07:56 37.0 C 78 18 135/75 96 07/16/21 07:00 75 07/16/21 06:20 37.0 C 77 24 135/74 97 Laboratory Results 07/16/21 07:02 07/16/21 07:02 Diagnostic Findings XR chest 1V portable HISTORY: Shortness of breath. Atypical chest pain. COMPARISON: Chest 07/09/2021. FINDINGS: No pneumothorax. No pleural effusion. The heart remains mildly enlarged. There is a left-sided dual-chamber pacemaker. Patchy multifocal bilateral airspace opacities have slightly progressed. There is mild central pulmonary vascular congestion without overt edema. IMPRESSION: 1. Interval progression of the patchy multifocal bilateral airspace opacities consistent with a viral pneumonia. 2. Cardiomegaly with mild central pulmonary vascular congestion. ACT 112: Negative or not required by law. Electronically signed by: Ang Hurley M.D. 07/15/2021 3:35 PM PG Care Time/CCT Total # of Minutes Spent Total Time Spent with Patient: Total time spent is greater than 50% in coordination of care (as documented) at patient's floor/unit and/or counseling patient: Coding Level of Care Code 15283 Initial Inpt Care Lvl 3 Diagnoses Respiratory failure with hypoxia J96.91 Pneumonia due to COVID-19 virus U07.1; J12.82 Acute on chronic diastolic CHF (congestive heart failure) I50.33 History of pulmonary embolism Z86.711 DVT prophylaxis Z29.9 Time Spent (min) 50
--- NOTE | 2021-07-16 17:23 | Hospitalist Progress Note ---
Date of Service July 16, 2021 Assessment & Plan (1) Respiratory failure with hypoxia: (2) Pneumonia due to COVID-19 virus: (3) Acute on chronic diastolic CHF (congestive heart failure): (4) CAD (coronary artery disease): (5) UTI (urinary tract infection): (6) CKD (chronic kidney disease), stage III: (7) Diarrhea: (8) LBBB (left bundle branch block): (9) Hypertension: (10) Major depression: (11) Obstructive sleep apnea on CPAP: Plan: per AHMET Milena Bobby's notes with addendum: This is an 81yo M with a PMH of Covid, PE, B-cell leukocytosis, chronic diastolic heart failure, CAD, CKD III, left bundle branch block and history of tachy deborah syndrome with an ICD that presents the ER for worsening shortness of breath. Covid pneumonia Acute respiratory failure with hypoxia Was recently admitted from 07/09-07/13 for covid pneumonia. Discharged home on 2L NC O2 Increasing oxygen requirement since discharge 07/13/21 CXR: worsening BL pneumonia Possible ARDS,component of diastolic CHF exacerbation Dexamethasone IV, already completed Remdesivir Incentive spirometry, flutter valve, proning Checking CRP, ESR, Ferritin Procal negative, will hold off on IV antibiotics for now Routine pulm consult 07/16/21 on 5 L today from 6 yesterday appears more comfortable continue Decadron additional Lasix 40mg IV today continue Incentive spirometry, flutter valve, proning Acute on chronic diastolic HF CXR with Cardiomegaly with mild central pulmonary vascular congestion additional Lasix 40mg IV today Proteus UTI Continue cefdinir course started on previous admission (due to complete course 07/18) -- no urinary symptoms today Infectious diarrhea Shigella on stool culture from last week Continue cefdinir course started on previous admission (due to complete course 07/18) -- no diarrhea today Atrial fibrillation continue Metoprolol, Apixaban CAD (coronary artery disease) no cardiac symptoms baby aspirin, atorvastatin, metoprolol Hypothyroidism Continue levothyroxine CKD (chronic kidney disease), stage III Creatinine is around his baseline at 1.33 (mid 1s) Hypertension Continue hydralazine, metoprolol Obstructive sleep apnea on CPAP Has previously declined to use CPAP in the hospital. Typically does use CPAP at home DVT Ppx: Apixaban Code status: FULL PCP: Girish Dispo:pending Admission and Anticipated Discharge Date Admission Date: July 15, 2021 Subjective ff up for covid 19 pneumonia, hypoxic respiratory failure, etc seen sitting up in bed, comfortable states he feels improved today less dyspnea on L NC less cough no chills, chest pain, leg pain, dizziness, headache, abdominal pain no other symptoms Review of Systems Review of Systems: all noted and negative except for above Physical Exam Physical Exam: General- oriented x 2, not in distress, speaks in sentences with no effort or accessory muscle use Eyes- anicteric Neck- no JVD Lungs-diminished bS, mild rales at the bases no wheezing Heart- normal rate, regular rhythm; no murmurs Abdomen- normal bowel sounds, nondistended, soft, nontender Extremities- no pretibial edema, no calf tenderness Neuro- alert, oriented x 2; no gross focal neurologic deficits Skin- warm & dry Results & Data Results & Data ([facility]) Vital Signs (Past 12 Hours) Vital Signs Temp Pulse Pulse Resp BP Pulse Ox 07/16/21 15:15 37.1 C 72 16 137/81 97 07/16/21 15:00 79 07/16/21 11:55 36.5 C 76 20 140/80 96 07/16/21 08:23 87 18 96 07/16/21 07:56 37.0 C 78 18 135/75 96 07/16/21 07:00 75 07/16/21 06:20 37.0 C 77 24 135/74 97 all noted and reviewed including below
[2021-07-16] MEDS: MONTELUKAST SODIUM 10 MG TABLET PO SCH (20:14)
[2021-07-16] MEDS: PANTOprazole 40 MG TAB PO SCH (20:14)
[2021-07-16] MEDS: TERAZOSIN HCL 5 MG CAP PO SCH (20:15)
[2021-07-17] MEDS: LEVOTHYROXINE SODIUM 112 MCG TABLET PO SCH (05:40)
[2021-07-17 07:54] LABS: Hematocrit (blood only) 38.5 % (42-52); Hemoglobin 12.8 g/dL (14.0-18.0); Mean Corpuscular Hemoglobin 30.9 pg (25-34); Mean Corpuscular Hgb Conc 33.2 g/dL (32-36); Mean Platelet Volume 12.5 fL (7.4-10.4); Platelet Count 268 K/uL (130-400); RDW Standard Deviation 50.7 fL (36.4-46.3); Red Blood Count 4.14 M/uL (4.7-6.1); White Blood Count 19.73 K/uL (4.8-10.8)
[2021-07-17 08:56] LABS: BUN Creatinine Ratio 26.4 (10-20); Calcium 7.8 mg/dl (8.5-10.1); Creatinine Clr Calc Pharmacy 53.1 ml/min; Est GFR (African American) 55.7 ml/min
[2021-07-17] MEDS: dexAMETHasone 6 MG in SYRINGE 0 ML IV SCH (09:25)
[2021-07-17] MEDS: CEFDINIR 300 MG CAP PO SCH ×2 (09:25→19:53)
[2021-07-17] MEDS: ASPIRIN 81 MG ECTAB PO SCH (09:25)
[2021-07-17] MEDS: SPIRONOLACTONE 25 MG TAB PO SCH (09:25)
[2021-07-17] MEDS: CITALOPRAM 20 MG TAB PO SCH (09:25)
[2021-07-17] MEDS: ATORVASTATIN 10 MG TAB PO SCH (09:26)
[2021-07-17] MEDS: CHOLECALCIFEROL 1,000 UNITS 25 MCG TAB PO SCH (09:26)
[2021-07-17] MEDS: CALCIUM CARBONATE 1250MG TAB PO SCH ×2 (09:27→19:52)
[2021-07-17] MEDS: APIXABAN 2.5 MG TAB PO SCH ×2 (09:27→19:52)
[2021-07-17] MEDS: hydrALAZINE HCL 25 MG TAB PO SCH ×3 (09:27→19:51)
[2021-07-17] MEDS: allopurinoL 300 MG TAB PO SCH (09:27)
[2021-07-17] MEDS: ACYCLOVIR 400 MG TAB PO SCH ×2 (09:27→19:51)
[2021-07-17] MEDS: METOPROLOL TARTRATE 50 MG TAB PO SCH ×2 (09:27→19:55)
[2021-07-17] MEDS ORDERED: FUROSEMIDE INJ 20 MG/2 ML VIAL IV ONE (17:24)
--- NOTE | 2021-07-17 17:32 | Hospitalist Progress Note ---
Date of Service July 17, 2021 Assessment & Plan (1) Respiratory failure with hypoxia: (2) Pneumonia due to COVID-19 virus: (3) Acute on chronic diastolic CHF (congestive heart failure): (4) CAD (coronary artery disease): (5) UTI (urinary tract infection): (6) CKD (chronic kidney disease), stage III: (7) Diarrhea: (8) LBBB (left bundle branch block): (9) Hypertension: (10) Major depression: (11) Obstructive sleep apnea on CPAP: Plan: per AHMET Milena Bobby'juliet notes with addendum: This is an 81yo M with a PMH of Covid, PE, B-cell leukocytosis, chronic diastolic heart failure, CAD, CKD III, left bundle branch block and history of tachy deborah syndrome with an ICD that presents the ER for worsening shortness of breath. Covid pneumonia Acute respiratory failure with hypoxia Was recently admitted from 07/09-07/13 for covid pneumonia. Discharged home on 2L NC O2 Increasing oxygen requirement since discharge 07/13/21 CXR: worsening BL pneumonia Possible ARDS,component of diastolic CHF exacerbation Dexamethasone IV, already completed Remdesivir Incentive spirometry, flutter valve, proning Checking CRP, ESR, Ferritin Procal negative, will hold off on IV antibiotics for now Routine pulm consult 07/17/21 O2 supplement being weaned off, started with 6 L, now at 4 L appears more comfortable than admission Lung sounds improving continue Decadron day #3 (received total of 5 days of Decadron during last admission) additional Lasix 20mg IV today, continue usual spironolactone continue Incentive spirometry, flutter valve Already on apixaban for chronic A. fib Dysphagia Mild Minced and moist diet, crush all medications Speech therapy evaluation Aspiration precautions Acute on chronic diastolic HF CXR with Cardiomegaly with mild central pulmonary vascular congestion additional Lasix 20mg IV today Proteus UTI Continue cefdinir course started on previous admission (due to complete course 07/18) -- no urinary symptoms today Infectious diarrhea Shigella on stool culture from last week Continue cefdinir course started on previous admission (due to complete course 07/18) -- no diarrhea today Atrial fibrillation continue Metoprolol, Apixaban CAD (coronary artery disease) no cardiac symptoms baby aspirin, atorvastatin, metoprolol Hypothyroidism Continue levothyroxine CKD (chronic kidney disease), stage III Creatinine is around his baseline at 1.33 (mid 1s) Hypertension Continue hydralazine, metoprolol Obstructive sleep apnea on CPAP Has previously declined to use CPAP in the hospital. Typically does use CPAP at home DVT Ppx: Apixaban Code status: FULL PCP: Girish Dispo:pending Admission and Anticipated Discharge Date Admission Date: July 15, 2021 Subjective Follow-up for acute hypoxic respiratory failure, COVID-19 pneumonia, etc. Seen resting in bedside chair, on 4 L of oxygen via nasal cannula Comfortable, not in distress Appears more relaxed States he feels improved today compared to yesterday Breathing seems to be improved as well Has occasional cough with white sputum No chest pain, dizziness, palpitations, abdominal pain, nausea vomiting Does report mild dysphagia with solids No coughing or choking episodes when eating No other symptoms Review of Systems Review of Systems: all noted and negative except for above Physical Exam Physical Exam: General- oriented x 3, not in distress, speaks in sentences with no effort or accessory muscle use Eyes- anicteric Neck- no JVD Lungs-diminished breath sounds bilaterally but improved air entry compared to yesterday No wheezing Heart- normal rate, regular rhythm; no murmurs Abdomen- normal bowel sounds, nondistended, soft, nontender Extremities- no pretibial edema, no calf tenderness Neuro- alert, oriented x 3; no gross focal neurologic deficits Skin- warm & dry Results & Data Results & Data ([facility]) Vital Signs (Past 12 Hours) Vital Signs Temp Pulse Resp BP Pulse Ox 07/17/21 15:44 37.0 C 81 20 148/89 H 94 07/17/21 11:44 37.1 C 71 18 138/82 93 07/17/21 07:51 37.0 C 78 20 135/68 90 all noted and reviewed including below
[2021-07-17] MEDS: TERAZOSIN HCL 5 MG CAP PO SCH (19:54)
[2021-07-17] MEDS: MONTELUKAST SODIUM 10 MG TABLET PO SCH (19:55)
[2021-07-17] MEDS: PANTOprazole 40 MG TAB PO SCH (19:55)
[2021-07-18] MEDS: LEVOTHYROXINE SODIUM 112 MCG TABLET PO SCH (05:49)
[2021-07-18] MEDS: dexAMETHasone 6 MG in SYRINGE 0 ML IV SCH (09:00)
[2021-07-18] MEDS: CEFDINIR 300 MG CAP PO SCH ×2 (09:02→19:26)
[2021-07-18] MEDS: SPIRONOLACTONE 25 MG TAB PO SCH (09:02)
[2021-07-18] MEDS: METOPROLOL TARTRATE 50 MG TAB PO SCH ×2 (09:02→19:29)
[2021-07-18] MEDS: ASPIRIN 81 MG ECTAB PO SCH (09:02)
[2021-07-18] MEDS: allopurinoL 300 MG TAB PO SCH (09:03)
[2021-07-18] MEDS: CITALOPRAM 20 MG TAB PO SCH (09:03)
[2021-07-18] MEDS: CHOLECALCIFEROL 1,000 UNITS 25 MCG TAB PO SCH (09:03)
[2021-07-18] MEDS: CALCIUM CARBONATE 1250MG TAB PO SCH ×2 (09:04→19:28)
[2021-07-18] MEDS: ATORVASTATIN 10 MG TAB PO SCH (09:04)
[2021-07-18] MEDS: APIXABAN 2.5 MG TAB PO SCH ×2 (09:05→19:27)
[2021-07-18] MEDS: hydrALAZINE HCL 25 MG TAB PO SCH ×3 (09:06→19:29)
[2021-07-18] MEDS: ACYCLOVIR 400 MG TAB PO SCH ×2 (09:06→19:28)
[2021-07-18 09:13] LABS: Calcium 7.4 mg/dl (8.5-10.1)
[2021-07-18 09:46] LABS: Creatinine Clr Calc Pharmacy 52.3 ml/min; Est GFR (African American) 55.2 ml/min; Est GFR (Non-African American) 47.6 ml/min
--- NOTE | 2021-07-18 13:58 | Hospitalist Progress Note ---
Date of Service July 18, 2021 Assessment & Plan (1) Respiratory failure with hypoxia: Plan: Secondary to COVID-pneumonia. He was discharged home on 2 L nasal cannula with ambulation and is now requiring 4 L/min via nasal cannula at rest. Chest x-ray on admission revealed worsening bilateral pneumonia. It is difficult to exclude a component of fluid overload. Patient already completed remdesivir last week and continues on dexamethasone IV. Continues on incentive spirometry, flutter valve, prone as able. (2) Pneumonia due to COVID-19 virus: Plan: Plan as above. (3) Acute on chronic diastolic CHF (congestive heart failure): Plan: He is not on diuretic therapy as outpatient. He was given Lasix IV daily since admission on the . Overall output is negative. Daily standing weights recommended daily continues on a low-sodium diet. (4) Dysphagia: Plan: Mild Minced and moist diet, crush all medications Speech therapy evaluation Aspiration precautions (5) CAD (coronary artery disease): Plan: Chronic, stable, continue home medical therapy including baby aspirin, atorvastatin, metoprolol. (6) UTI (urinary tract infection): Plan: Completing antibiotic therapy with cefdinir. Last dose on 07/19. (7) Diarrhea: Plan: recent diagnosis of infectious diarrhea, Improved. He completes cefdinir on 07/19. (8) CKD (chronic kidney disease), stage III: Plan: Creatinine is around his baseline 1.4-1.5. Continue to avoid nephrotoxic substances and renally dose meds as needed (9) Hypertension: Plan: Chronic, controlled, continue hydralazine per home regimen. (10) Obstructive sleep apnea on CPAP: Plan: Declines to use CPAP in the hospital. Typically does use CPAP at home (11) Atrial fibrillation: Plan: Continue rate control with metoprolol. Continue apixaban for long-term anticoagulation and stroke prophylaxis. (12) DVT prophylaxis: Plan: DVT Ppx: Apixaban Code status: FULL Dispo-cont hospitalization pending complete resolution of hypoxia. [facility] Admission and Anticipated Discharge Date Admission Date: July 15, 2021 Subjective 81-year-old man with recent hospital admission for pneumonia due to COVID-19 virus presented after returning home with worsening shortness of breath. Patient reports breathing is fine today Denies any additional symptoms such as cough, fevers, chills Tolerating p.o. Not moving around much Oxygen saturation appears stable on 4 L/min via nasal cannula Per patient and primary nurse, stools are loose but there is no tiny watery or bloody diarrhea Denies any belly pain. Review of Systems Review of Systems: All systems were reviewed and negative except as indicated above. Physical Exam Physical Exam: CONSTITUTIONAL: WNWD, vitals as above, generally ill- appearing, NAD, no tachypnea. EYES: normal conjunctivae, no scleral icterus ENT: external ear and nose normal, MMM NECK: trachea midline, RESPIRATORY: clear to auscultation bilaterally, no crackles, rales or wheezes, normal respiratory effort CARDIOVASCULAR: regular rate and rhythm, S1 and 2 heard without murmurs, gallops or rubs, no JVD, no peripheral edema, GASTROINTESTINAL: soft, nontender, ND, no guarding MUSCULOSKELETAL: strength 5/5 throughout, head is normocephalic and atraumatic SKIN: warm and dry NEUROLOGIC: CN 2-12 grossly intact, no sensory deficit, normal cognition, normal speech, no tremor, no gross focal deficits PSYCHIATRIC: alert cooperative and oriented to person, place and time. Results & Data Results & Data ([facility]) Vital Signs (Past 12 Hours) Vital Signs Temp Pulse Resp BP BP Pulse Ox 07/18/21 12:37 36.3 C L 78 20 132/78 93 07/18/21 07:51 36.7 C 87 20 125/92 89 L 07/18/21 04:33 36.9 C 88 18 134/79 90 Laboratory Results [facility] 07/18/21 07:39 Sodium 138 Potassium 4.0 Chloride 101 Carbon Dioxide 26 BUN 40 H Creatinine 1.38 Glucose 122 H Calcium 7.4 L Medications Administered Current Inpatient Medications Acetaminophen (Acetaminophen 325 Mg Tab) 650 mg PO Q4H PRN PRN Reason: Pain or Fever Stop: 08/14/21 22:12 Last Admin: 07/16/21 14:14 Dose: 650 mg Documented by: Acyclovir (Acyclovir 400 Mg Tab) 400 mg PO BID [facility] Stop: 08/14/21 22:12 Last Admin: 07/18/21 09:06 Dose: 400 mg Documented by: Albuterol (Albuterol Hfa 8 Gm Inhaler) 2 puffs INH Q6H PRN PRN Reason: Shortness Of Breath Or Wheezing Stop: 08/14/21 22:12 Allopurinol (Allopurinol 300 Mg Tab) 300 mg PO [facility]AWW [facility] Stop: 08/15/21 08:59 Last Admin: 07/18/21 09:03 Dose: 300 mg Documented by: Apixaban (Apixaban 2.5 Mg Tab) 2.5 mg PO BID [facility] Stop: 08/14/21 22:12 Last Admin: 07/18/21 09:05 Dose: 2.5 mg Documented by: Aspirin (Aspirin 81 Mg Ectab) 81 mg PO QAWW [facility] Stop: 08/15/21 08:59 Last Admin: 07/18/21 09:02 Dose: 81 mg Documented by: Atorvastatin Calcium (Atorvastatin 10 Mg Tab) 5 mg PO QAWW [facility] Stop: 08/15/21 08:59 Last Admin: 07/18/21 09:04 Dose: 5 mg Documented by: Calcium Carbonate (Calcium Carbonate 1250mg Tab) 1,250 mg PO BID [facility] Stop: 08/14/21 22:12 Last Admin: 07/18/21 09:04 Dose: 1,250 mg Documented by: Cefdinir (Cefdinir 300 Mg Cap) 300 mg PO BID [facility] Stop: 07/25/21 21:47 Last Admin: 07/18/21 09:02 Dose: 300 mg Documented by: Citalopram Hydrobromide (Citalopram 20 Mg Tab) 20 mg PO QAM [facility] Stop: 08/15/21 08:59 Last Admin: 07/18/21 09:03 Dose: 20 mg Documented by: Hydralazine HCl (Hydralazine Hcl 25 Mg Tab) 25 mg PO TID [facility] Stop: 08/14/21 18:59 Last Admin: 07/18/21 09:06 Dose: 25 mg Documented by: Dexamethasone 6 mg/ Syringe 1.5 mls @ 1 mls/min IV Q24H [facility] Stop: 08/15/21 08:59 Last Admin: 07/18/21 09:00 Dose: 1 mls/min Documented by: Levothyroxine Sodium (Levothyroxine Sodium 112 Mcg Tablet) 112 mcg PO DAILYBB [facility] Stop: 08/15/21 06:29 Last Admin: 07/18/21 05:49 Dose: 112 mcg Documented by: Metoprolol Tartrate (Metoprolol Tartrate 50 Mg Tab) 50 mg PO BID [facility] Stop: 08/14/21 20:59 Last Admin: 07/18/21 09:02 Dose: 50 mg Documented by: Montelukast Sodium (Montelukast Sodium 10 Mg Tablet) 10 mg PO PM [facility] Stop: 08/15/21 20:59 Last Admin: 07/17/21 19:55 Dose: 10 mg Documented by: Ondansetron HCl (Ondansetron Inj 2 Mg/Ml 2 Ml Vial) 4 mg IV Q6H PRN PRN Reason: Nausea Stop: 08/14/21 22:12 Pantoprazole Sodium (Pantoprazole 40 Mg Tab) 40 mg PO HS [facility] Stop: 08/14/21 22:12 Last Admin: 07/17/21 19:55 Dose: 40 mg Documented by: Polyethylene Glycol (Polyethylene (Miralax) 17 Gm Pack) 17 gm PO DAILY PRN PRN Reason: Constipation Stop: 08/14/21 22:12 Spironolactone (Spironolactone 25 Mg Tab) 25 mg PO QAM [facility] Stop: 08/15/21 08:59 Last Admin: 07/18/21 09:02 Dose: 25 mg Documented by: Terazosin HCl (Terazosin Hcl 5 Mg Cap) 5 mg PO HS [facility] Stop: 08/14/21 20:59 Last Admin: 07/17/21 19:54 Dose: 5 mg Documented by: Vitamin D (Cholecalciferol 1,000 Units 25 Mcg Tab) 2,000 units PO QAM [facility] Stop: 08/15/21 08:59 Last Admin: 07/18/21 09:03 Dose: 2,000 units Documented by: (1) Respiratory failure with hypoxia Chronicity: acute Qualified Code(s): J96.01 - Acute respiratory failure with hypoxia
[2021-07-18] MEDS: MONTELUKAST SODIUM 10 MG TABLET PO SCH (19:30)
[2021-07-18] MEDS: PANTOprazole 40 MG TAB PO SCH (19:30)
[2021-07-18] MEDS: TERAZOSIN HCL 5 MG CAP PO SCH (19:31)
[2021-07-19] MEDS: LEVOTHYROXINE SODIUM 112 MCG TABLET PO SCH (05:29)
[2021-07-19 08:51] LABS: Hematocrit (blood only) 40.2 % (42-52); Hemoglobin 13.2 g/dL (14.0-18.0); Mean Corpuscular Hemoglobin 30.5 pg (25-34); Mean Corpuscular Hgb Conc 32.8 g/dL (32-36); Mean Corpuscular Volume 92.8 fL (80-100); Mean Platelet Volume 12.2 fL (7.4-10.4); Platelet Count 239 K/uL (130-400); RDW Coefficient of Variation 15.1 % (11.5-14.5); RDW Standard Deviation 51.4 fL (36.4-46.3); Red Blood Count 4.33 M/uL (4.7-6.1); White Blood Count 15.05 K/uL (4.8-10.8)
[2021-07-19 09:38] LABS: BUN Creatinine Ratio 28.9 (10-20); Calcium 7.2 mg/dl (8.5-10.1); Creatinine Clr Calc Pharmacy 59.4 ml/min; Est GFR (African American) 64.7 ml/min; Est GFR (Non-African American) 55.8 ml/min; Magnesium 1.7 mg/dl (1.7-2.4); Phosphorus 3.1 mg/dl (2.5-4.9); Potassium 3.9 mmol/L (3.5-5.1)
[2021-07-19] MEDS: dexAMETHasone 6 MG in SYRINGE 0 ML IV SCH (09:48)
[2021-07-19] MEDS: SPIRONOLACTONE 25 MG TAB PO SCH (09:49)
[2021-07-19] MEDS: CHOLECALCIFEROL 1,000 UNITS 25 MCG TAB PO SCH (09:49)
[2021-07-19] MEDS: CITALOPRAM 20 MG TAB PO SCH (09:49)
[2021-07-19] MEDS: ASPIRIN 81 MG ECTAB PO SCH (09:50)
[2021-07-19] MEDS: allopurinoL 300 MG TAB PO SCH (09:50)
[2021-07-19] MEDS: ATORVASTATIN 10 MG TAB PO SCH (09:50)
[2021-07-19] MEDS: hydrALAZINE HCL 25 MG TAB PO SCH ×3 (09:51→20:42)
[2021-07-19] MEDS: CALCIUM CARBONATE 1250MG TAB PO SCH ×2 (09:52→20:40)
[2021-07-19] MEDS: APIXABAN 2.5 MG TAB PO SCH ×2 (09:52→20:41)
[2021-07-19] MEDS: ACYCLOVIR 400 MG TAB PO SCH ×2 (09:52→20:42)
[2021-07-19] MEDS: CEFDINIR 300 MG CAP PO SCH ×2 (09:52→20:40)
[2021-07-19] MEDS: METOPROLOL TARTRATE 50 MG TAB PO SCH ×2 (09:53→20:41)
[2021-07-19] MEDS ORDERED: FUROSEMIDE INJ 20 MG/2 ML VIAL IV ONE (14:35)
--- NOTE | 2021-07-19 14:43 | Hospitalist Progress Note ---
Date of Service July 19, 2021 Assessment & Plan (1) Respiratory failure with hypoxia: Plan: Secondary to COVID-pneumonia. He was discharged home on 2 L nasal cannula with ambulation and is now requiring 4 L/min via nasal cannula at rest. Remains on 4LPM at this time and is clinicallly stable without worsening symptoms. Chest x-ray on admission revealed worsening bilateral pneumonia. It is difficult to exclude a component of fluid overload. Patient already completed remdesivir last week and continues on dexamethasone IV. Continues on incentive spirometry, flutter valve, prone as able. (2) Pneumonia due to COVID-19 virus: Plan: Plan as above. (3) Acute on chronic diastolic CHF (congestive heart failure): Plan: He is not on diuretic therapy as outpatient. He was given Lasix IV daily since admission on the . Overall output is negative and he is down 5 kg since admission. Will give additional Lasix IV today and daily and track daily BMP. Daily standing weights recommended daily continues on a low-sodium diet. (4) Dysphagia: Plan: Mild Minced and moist diet, crush all medications Aspiration precautions (5) CAD (coronary artery disease): Plan: Chronic, stable, continue home medical therapy including baby aspirin, atorvastatin, metoprolol. (6) UTI (urinary tract infection): Plan: Completing antibiotic therapy with cefdinir. Last dose on 07/19. (7) Diarrhea: Plan: recent diagnosis of infectious diarrhea, Improved. He completes cefdinir on 07/19. (8) CKD (chronic kidney disease), stage III: Plan: Creatinine is around his baseline 1.4-1.5. Continue to avoid nephrotoxic substances and renally dose meds as needed (9) Hypertension: Plan: Chronic, controlled, continue hydralazine per home regimen. (10) Obstructive sleep apnea on CPAP: Plan: Declines to use CPAP in the hospital. Typically does use CPAP at home (11) Atrial fibrillation: Plan: Continue rate control with metoprolol. Continue apixaban for long-term anticoagulation and stroke prophylaxis. (12) DVT prophylaxis: Plan: DVT Ppx: Apixaban Code status: FULL Dispo-cont hospitalization pending complete resolution of hypoxia. I spoke with his daughter, Eloise, and updated her on the plan. She was asking for a possible dc date/goals and we reviewed this. He should preferably be needing min to no oxygen going home for the second time. [facility] Admission and Anticipated Discharge Date Admission Date: July 15, 2021 Subjective 81-year-old man with recent hospital admission for pneumonia due to COVID-19 virus presented after returning home with worsening shortness of breath. Patient reports breathing is fine today Denies any additional symptoms such as cough, fevers, chills Tolerating p.o. Not moving around much Oxygen saturation appears stable on 4 L/min via nasal cannula No diarrhea. Denies any belly pain. Review of Systems Review of Systems: All systems were reviewed and negative except as indicated above. Physical Exam Physical Exam: CONSTITUTIONAL: WNWD, vitals as above, NAD, no tachypnea. EYES: normal conjunctivae, no scleral icterus ENT: external ear and nose normal, MMM NECK: trachea midline RESPIRATORY: clear to auscultation bilaterally, no crackles, rales or wheezes, normal respiratory effort CARDIOVASCULAR: regular rate and rhythm, S1 and 2 heard without murmurs, gallops or rubs, no JVD, no peripheral edema, GASTROINTESTINAL: soft, nontender, ND, no guarding MUSCULOSKELETAL: strength 5/5 throughout, head is normocephalic and atraumatic SKIN: warm and dry NEUROLOGIC: CN 2-12 grossly intact, no sensory deficit, normal cognition, normal speech, no tremor, no gross focal deficits PSYCHIATRIC: alert cooperative and oriented to person, place and time. Results & Data Results & Data ([facility]) Vital Signs (Past 12 Hours) Vital Signs Temp Pulse Pulse Resp BP BP Pulse Ox 07/19/21 13:30 07/19/21 11:56 36.8 C 81 20 144/73 H 95 07/19/21 07:23 36.8 C 80 20 105/70 91 07/19/21 04:42 75 07/19/21 04:31 36.6 C 81 22 126/67 87 L Pulse Ox Pulse Ox 07/19/21 13:30 93 89 L 07/19/21 11:56 07/19/21 07:23 07/19/21 04:42 07/19/21 04:31 Laboratory Results Short CBC 07/19/21 Range/Units 08:31 WBC 15.05 H (4.8-10.8) K/uL Hgb 13.2 L (14.0-18.0) g/dL Hct 40.2 L (42-52) % Plt Count 239 (130-400) K/uL BMP 07/19/21 08:31 Sodium 137 Potassium 3.9 Chloride 103 Carbon Dioxide 25 BUN 35 H Creatinine 1.21 Glucose 170 H Calcium 7.2 L Medications Administered Current Inpatient Medications Acetaminophen (Acetaminophen 325 Mg Tab) 650 mg PO Q4H PRN PRN Reason: Pain or Fever Stop: 08/14/21 22:12 Last Admin: 07/16/21 14:14 Dose: 650 mg Documented by: Acyclovir (Acyclovir 400 Mg Tab) 400 mg PO BID [facility] Stop: 08/14/21 22:12 Last Admin: 07/19/21 09:52 Dose: 400 mg Documented by: Albuterol (Albuterol Hfa 8 Gm Inhaler) 2 puffs INH Q6H PRN PRN Reason: Shortness Of Breath Or Wheezing Stop: 08/14/21 22:12 Allopurinol ([facility]ol 300 Mg Tab) [facility] [place] Stop: 08/15/21 08:59 Last Admin: 07/19/21 09:50 Dose: 300 mg Documented by: Apixaban (Apixaban 2.5 Mg Tab) 2.5 mg PO BID [facility] Stop: 08/14/21 22:12 Last Admin: 07/19/21 09:52 Dose: 2.5 mg Documented by: Aspirin (Aspirin 81 Mg Ectab) 81 [facility] [place] Stop: 08/15/21 08:59 Last Admin: 07/19/21 09:50 Dose: 81 mg Documented by: Atorvastatin Calcium (Atorvastatin 10 Mg Tab) 5 [facility] [place] Stop: 08/15/21 08:59 Last Admin: 07/19/21 09:50 Dose: 5 mg Documented by: Calcium Carbonate (Calcium Carbonate 1250mg Tab) 1,250 mg PO BID [facility] Stop: 08/14/21 22:12 Last Admin: 07/19/21 09:52 Dose: 1,250 mg Documented by: Cefdinir (Cefdinir 300 Mg Cap) 300 mg PO BID [facility] Stop: 07/25/21 21:47 Last Admin: 07/19/21 09:52 Dose: 300 mg Documented by: Citalopram Hydrobromide (Citalopram 20 Mg Tab) 20 mg PO [facility] Stop: 08/15/21 08:59 Last Admin: 07/19/21 09:49 Dose: 20 mg Documented by: Hydralazine HCl (Hydralazine Hcl 25 Mg Tab) 25 mg PO TID [facility] Stop: 08/14/21 18:59 Last Admin: 07/19/21 13:33 Dose: 25 mg Documented by: Dexamethasone 6 mg/ Syringe 1.5 mls @ 1 mls/min IV Q24H [facility] Stop: 08/15/21 08:59 Last Admin: 07/19/21 09:48 Dose: 1 mls/min Documented by: Levothyroxine Sodium (Levothyroxine Sodium 112 Mcg Tablet) 112 mcg PO DAILYBB [facility] Stop: 08/15/21 06:29 Last Admin: 07/19/21 05:29 Dose: 112 mcg Documented by: Metoprolol Tartrate (Metoprolol Tartrate 50 Mg Tab) 50 mg PO BID [facility] Stop: 08/14/21 20:59 Last Admin: 07/19/21 09:53 Dose: 50 mg Documented by: Montelukast Sodium (Montelukast Sodium 10 Mg Tablet) 10 mg PO PM [facility] Stop: 08/15/21 20:59 Last Admin: 07/18/21 19:30 Dose: 10 mg Documented by: Ondansetron HCl (Ondansetron Inj 2 Mg/Ml 2 Ml Vial) 4 mg IV Q6H PRN PRN Reason: Nausea Stop: 08/14/21 22:12 Pantoprazole Sodium (Pantoprazole 40 Mg Tab) 40 mg PO [facility] Stop: 08/14/21 22:12 Last Admin: 07/18/21 19:30 Dose: 40 mg Documented by: Polyethylene Glycol (Polyethylene (Miralax) 17 Gm Pack) 17 gm PO DAILY PRN PRN Reason: Constipation Stop: 08/14/21 22:12 Spironolactone (Spironolactone 25 Mg Tab) 25 mg PO QAM [facility] Stop: 08/15/21 08:59 Last Admin: 07/19/21 09:49 Dose: 25 mg Documented by: Terazosin HCl (Terazosin Hcl 5 Mg Cap) 5 mg PO [facility] Stop: 08/14/21 20:59 Last Admin: 07/18/21 19:31 Dose: 5 mg Documented by: Vitamin D (Cholecalciferol 1,000 Units 25 Mcg Tab) 2,000 units PO QAM [facility] Stop: 08/15/21 08:59 Last Admin: 07/19/21 09:49 Dose: 2,000 units Documented by: (1) Respiratory failure with hypoxia Chronicity: acute Qualified Code(s): J96.01 - Acute respiratory failure with hypoxia
[2021-07-19] MEDS: TERAZOSIN HCL 5 MG CAP PO SCH (20:41)
[2021-07-19] MEDS: MONTELUKAST SODIUM 10 MG TABLET PO SCH (20:41)
[2021-07-19] MEDS: PANTOprazole 40 MG TAB PO SCH (20:41)
[2021-07-20] MEDS: LEVOTHYROXINE SODIUM 112 MCG TABLET PO SCH (05:44)
[2021-07-20 06:36] LABS: Hematocrit (blood only) 37.6 % (42-52); Hemoglobin 12.8 g/dL (14.0-18.0); Mean Corpuscular Hemoglobin 31.5 pg (25-34); Mean Corpuscular Volume 92.6 fL (80-100); Mean Platelet Volume 11.7 fL (7.4-10.4); Platelet Count 217 K/uL (130-400); RDW Standard Deviation 51.1 fL (36.4-46.3); Red Blood Count 4.06 M/uL (4.7-6.1); White Blood Count 14.74 K/uL (4.8-10.8)
[2021-07-20 06:45] LABS: Albumin Globulin Ratio 1.6 (0.9-2); Albumin Level 3.1 gm/dl (3.4-5.0); BUN Creatinine Ratio 28.9 (10-20); Bilirubin,Total 1.1 mg/dl (0.2-1.0); Calcium 7.3 mg/dl (8.5-10.1); Creatinine Clr Calc Pharmacy 58.5 ml/min; Est GFR (African American) 64.7 ml/min; Est GFR (Non-African American) 55.8 ml/min; Potassium 4.1 mmol/L (3.5-5.1); Total Protein 5.1 gm/dl (6.0-8.3)
[2021-07-20] MEDS: dexAMETHasone 6 MG in SYRINGE 0 ML IV SCH (08:25)
[2021-07-20] MEDS: ATORVASTATIN 10 MG TAB PO SCH (08:26)
[2021-07-20] MEDS: SPIRONOLACTONE 25 MG TAB PO SCH (08:27)
[2021-07-20] MEDS: ACYCLOVIR 400 MG TAB PO SCH ×2 (08:27→19:39)
[2021-07-20] MEDS: CITALOPRAM 20 MG TAB PO SCH (08:27)
[2021-07-20] MEDS: hydrALAZINE HCL 25 MG TAB PO SCH ×3 (08:27→19:37)
[2021-07-20] MEDS: CHOLECALCIFEROL 1,000 UNITS 25 MCG TAB PO SCH (08:28)
[2021-07-20] MEDS: CEFDINIR 300 MG CAP PO SCH (08:28)
[2021-07-20] MEDS: CALCIUM CARBONATE 1250MG TAB PO SCH ×2 (08:28→19:38)
[2021-07-20] MEDS: allopurinoL 300 MG TAB PO SCH (08:28)
[2021-07-20] MEDS: METOPROLOL TARTRATE 50 MG TAB PO SCH ×2 (08:28→19:38)
[2021-07-20] MEDS: APIXABAN 2.5 MG TAB PO SCH ×2 (08:28→19:39)
[2021-07-20] MEDS: ASPIRIN 81 MG ECTAB PO SCH (08:28)
[2021-07-20] MEDS ORDERED: FUROSEMIDE INJ 20 MG/2 ML VIAL IV SCH (09:00)
[2021-07-20] MEDS ORDERED: CALCIUM GLUCONATE 10% 1,000 MG in DEXTROSE 5% 50 ML IV ONE (09:45)
--- NOTE | 2021-07-20 16:37 | Hospitalist Progress Note ---
Date of Service July 20, 2021 Assessment & Plan (1) Respiratory failure with hypoxia: Plan: Secondary to COVID-pneumonia. Patient already completed remdesivir last week and continues on dexamethasone IV. Improved oxygen needs overnight. Cont to ambulate as tolerated. Continues on incentive spirometry, flutter valve, prone as able. Daily lasix given yesterday and today. Not significant output. Will hold for now as he is improved. Trend BMP in am. (2) Pneumonia due to COVID-19 virus: Plan: Plan as above. (3) Acute on chronic diastolic CHF (congestive heart failure): Plan: He is not on diuretic therapy as outpatient. He was given Lasix IV daily since admission on the . Overall output is negative and he is down 5 kg since admission. Daily Lasix was held after morning dose today. Daily standing weights recommended daily continues on a low-sodium diet. (4) Dysphagia: Plan: chronic, Mild Minced and moist diet, crush all medications Aspiration precautions (5) CAD (coronary artery disease): Plan: Chronic, stable, continue home medical therapy including baby aspirin, atorvastatin, metoprolol. (6) UTI (urinary tract infection): Plan: Completing antibiotic therapy with cefdinir. Last dose on 07/19. (7) Diarrhea: Plan: recent diagnosis of infectious diarrhea, Improved. He completes cefdinir on 07/19. (8) CKD (chronic kidney disease), stage III: Plan: Creatinine is around his baseline 1.4-1.5. Continue to avoid nephrotoxic substances and renally dose meds as needed (9) Hypertension: Plan: Chronic, controlled, continue hydralazine per home regimen. (10) Obstructive sleep apnea on CPAP: Plan: Declines to use CPAP in the hospital. Typically does use CPAP at home (11) Atrial fibrillation: Plan: Continue rate control with metoprolol. Continue apixaban for long-term anticoagulation and stroke prophylaxis. (12) DVT prophylaxis: Plan: DVT Ppx: Apixaban Code status: FULL Dispo-cont hospitalization pending complete resolution of hypoxia. He is close, may be able to go home tomorrow. Would prefer updated PT/OT evaluation to ensure safe to go home. Will dc telemetry at this time. Bere Bernard DO [facility] and Anticipated Discharge Date Admission Date: July 15, 2021 Subjective 81-year-old man with recent hospital admission for pneumonia due to COVID-19 virus presented after returning home with worsening shortness of breath. Patient reports breathing is fine today Denies any additional symptoms such as cough, fevers, chills Tolerating p.o. Oxygen needs improved overnight from 4LPM to 1 LPM reports feeling better today. Denies diarrhea Review of Systems Review of Systems: All systems were reviewed and negative except as indicated above. Physical Exam Physical Exam: CONSTITUTIONAL: WNWD, vitals as above, NAD EYES: normal conjunctivae, no scleral icterus ENT: external ear and nose normal, MMM NECK: trachea midline RESPIRATORY: clear to auscultation bilaterally, no crackles, rales or wheezes, normal respiratory effort CARDIOVASCULAR: regular rate and rhythm, S1 and 2 heard without murmurs, gallops or rubs, no JVD, no peripheral edema, GASTROINTESTINAL: soft, nontender, ND, no guarding MUSCULOSKELETAL: strength 5/5 throughout, head is normocephalic and atraumatic SKIN: warm and dry NEUROLOGIC: CN 2-12 grossly intact, no sensory deficit, normal cognition, normal speech, no tremor, no gross focal deficits PSYCHIATRIC: alert cooperative and oriented to person, place and time. Results & Data Results & Data ([facility]) Vital Signs (Past 12 Hours) Vital Signs Temp Pulse Resp BP Pulse Ox 07/20/21 15:24 37.0 C 65 20 140/86 97 07/20/21 11:27 36.9 C 60 20 142/82 H 96 07/20/21 10:49 68 17 89/56 L 96 07/20/21 07:39 36.9 C 71 20 131/73 94 Laboratory Results Short CBC 07/20/21 Range/Units 06:05 WBC 14.74 H (4.8-10.8) K/uL Hgb 12.8 L (14.0-18.0) g/dL Hct 37.6 L (42-52) % Plt Count 217 (130-400) K/uL BMP 07/20/21 06:05 Sodium 136 Potassium 4.1 Chloride 101 Carbon Dioxide 28 BUN 35 H Creatinine 1.21 Glucose 123 H Calcium 7.3 L Liver Function 07/20/21 Range/Units 06:05 Total Bilirubin 1.1 H (0.2-1.0) mg/dl AST 13 (13-39) U/L ALT 19 (7-52) U/L Alkaline Phosphatase 46 (34-104) U/L Albumin 3.1 L (3.4-5.0) gm/dl Medications Administered Current Inpatient Medications Acetaminophen (Acetaminophen 325 Mg Tab) 650 mg PO Q4H PRN PRN Reason: Pain or Fever Stop: 08/14/21 22:12 Last Admin: 07/16/21 14:14 Dose: 650 mg Documented by: Acyclovir (Acyclovir 400 Mg Tab) 400 mg PO BID [facility] Stop: 08/14/21 22:12 Last Admin: 07/20/21 08:27 Dose: 400 mg Documented by: Albuterol (Albuterol Hfa 8 Gm Inhaler) 2 puffs INH Q6H PRN PRN Reason: Shortness Of Breath Or Wheezing Stop: 08/14/21 22:12 Allopurinol ([facility]ol 300 Mg Tab) [facility] [place]: 08/15/21 08:59 Last Admin: 07/20/21 08:28 Dose: 300 mg Documented by: Apixaban (Apixaban 2.5 Mg Tab) 2.5 mg PO BID [facility] Stop: 08/14/21 22:12 Last Admin: 07/20/21 08:28 Dose: 2.5 mg Documented by: Aspirin (Aspirin 81 Mg Ectab) 81 mg PO QAM [facility] Stop: 08/15/21 08:59 Last Admin: 07/20/21 08:28 Dose: 81 mg Documented by: Atorvastatin Calcium (Atorvastatin 10 Mg Tab) 5 mg PO QAM [facility] Stop: 08/15/21 08:59 Last Admin: 07/20/21 08:26 Dose: 5 mg Documented by: Calcium Carbonate (Calcium Carbonate 1250mg Tab) 1,250 mg PO BID [facility] Stop: 08/14/21 22:12 Last Admin: 07/20/21 08:28 Dose: 1,250 mg Documented by: Cefdinir (Cefdinir 300 Mg Cap) 300 mg PO BID [facility] Stop: 07/25/21 21:47 Last Admin: 07/20/21 08:28 Dose: 300 mg Documented by: Citalopram Hydrobromide (Citalopram 20 Mg Tab) [facility] [place]: 08/15/21 08:59 Last Admin: 07/20/21 08:27 Dose: 20 mg Documented by: Furosemide (Furosemide Inj 20 Mg/2 Ml Vial) 20 mg IV DAILY [facility] Stop: 08/19/21 08:59 Last Admin: 07/20/21 08:33 Dose: 20 mg Documented by: Hydralazine HCl (Hydralazine Hcl 25 Mg Tab) 25 mg PO TID [facility] Stop: 08/14/21 18:59 Last Admin: 07/20/21 15:25 Dose: 25 mg Documented by: Dexamethasone 6 mg/ Syringe 1.5 mls @ 1 mls/min IV Q24H [facility] Stop: 08/15/21 08:59 Last Admin: 07/20/21 08:25 Dose: 1 mls/min Documented by: Levothyroxine Sodium (Levothyroxine Sodium 112 Mcg Tablet) 112 mcg PO DAILYBB [facility] Stop: 08/15/21 06:29 Last Admin: 07/20/21 05:44 Dose: 112 mcg Documented by: Metoprolol Tartrate (Metoprolol Tartrate 50 Mg Tab) 50 mg PO BID [facility] Stop: 08/14/21 20:59 Last Admin: 07/20/21 08:28 Dose: 50 mg Documented by: Montelukast Sodium (Montelukast Sodium 10 Mg Tablet) 10 mg PO PM [facility] Stop: 08/15/21 20:59 Last Admin: 07/19/21 20:41 Dose: 10 mg Documented by: Ondansetron HCl (Ondansetron Inj 2 Mg/Ml 2 Ml Vial) 4 mg IV Q6H PRN PRN Reason: Nausea Stop: 08/14/21 22:12 Pantoprazole Sodium (Pantoprazole 40 Mg Tab) 40 mg PO HS [facility] Stop: 08/14/21 22:12 Last Admin: 07/19/21 20:41 Dose: 40 mg Documented by: Polyethylene Glycol (Polyethylene (Miralax) 17 Gm Pack) 17 gm PO DAILY PRN PRN Reason: Constipation Stop: 08/14/21 22:12 Spironolactone (Spironolactone 25 Mg Tab) 25 mg PO QAM [facility] Stop: 08/15/21 08:59 Last Admin: 07/20/21 08:27 Dose: 25 mg Documented by: Terazosin HCl (Terazosin Hcl 5 Mg Cap) 5 mg PO HS [facility] Stop: 08/14/21 20:59 Last Admin: 07/19/21 20:41 Dose: 5 mg Documented by: Vitamin D (Cholecalciferol 1,000 Units 25 Mcg Tab) 2,000 units PO [facility] Stop: 08/15/21 08:59 Last Admin: 07/20/21 08:28 Dose: 2,000 units Documented by: (1) Respiratory failure with hypoxia Chronicity: acute Qualified Code(s): J96.01 - Acute respiratory failure with hypoxia
[2021-07-20] MEDS: PANTOprazole 40 MG TAB PO SCH (19:36)
[2021-07-20] MEDS: TERAZOSIN HCL 5 MG CAP PO SCH (19:37)
[2021-07-20] MEDS: MONTELUKAST SODIUM 10 MG TABLET PO SCH (19:38)
[2021-07-21] MEDS: LEVOTHYROXINE SODIUM 112 MCG TABLET PO SCH (05:30)
[2021-07-21 06:45] LABS: BUN Creatinine Ratio 28.6 (10-20); Calcium 7.2 mg/dl (8.5-10.1); Creatinine Clr Calc Pharmacy 59.5 ml/min; Est GFR (Non-African American) 56.9 ml/min; Potassium 4.1 mmol/L (3.5-5.1)
[2021-07-21] MEDS: ACYCLOVIR 400 MG TAB PO SCH ×2 (08:07→19:35)
[2021-07-21] MEDS: dexAMETHasone 6 MG in SYRINGE 0 ML IV SCH (08:07)
[2021-07-21] MEDS: APIXABAN 2.5 MG TAB PO SCH ×2 (08:07→19:36)
[2021-07-21] MEDS: hydrALAZINE HCL 25 MG TAB PO SCH ×3 (08:08→19:36)
[2021-07-21] MEDS: CALCIUM CARBONATE 1250MG TAB PO SCH ×2 (08:08→19:36)
[2021-07-21] MEDS: ASPIRIN 81 MG ECTAB PO SCH (08:08)
[2021-07-21] MEDS: METOPROLOL TARTRATE 50 MG TAB PO SCH ×2 (08:08→19:36)
[2021-07-21] MEDS: ATORVASTATIN 10 MG TAB PO SCH (08:09)
[2021-07-21] MEDS: CHOLECALCIFEROL 1,000 UNITS 25 MCG TAB PO SCH (08:09)
[2021-07-21] MEDS: allopurinoL 300 MG TAB PO SCH (08:09)
[2021-07-21] MEDS: SPIRONOLACTONE 25 MG TAB PO SCH (08:09)
[2021-07-21] MEDS: CITALOPRAM 20 MG TAB PO SCH (08:09)
[2021-07-21] MEDS: CALCIUM 600MG + VIT D 400 IU TAB PO SCH ×2 (11:38→19:36)
--- NOTE | 2021-07-21 12:54 | XRay Report ---
XR chest 1V portable CLINICAL HISTORY: covid pneumonia w hypoxia COMPARISON STUDY: Chest radiograph July 15, 2021. FINDINGS: Left subclavian biventricular pacer is in place. Cardiomegaly is unchanged. No pneumothorax or pleural effusion is present. Mild elevation of the right hemidiaphragm is unchanged. Multifocal b ilateral airspace opacities are noted. Slight improvement is noted since prior exam. IMPRESSION: Slight improvement in multifocal bilateral airspace opacities consistent with viral pneu monia. ACT 112: Negative or not required by law. Electronically signed by: Kyler Lim M.D. 07/21/2021 12:52 PM
[2021-07-21] MEDS: MONTELUKAST SODIUM 10 MG TABLET PO SCH (19:36)
[2021-07-21] MEDS: PANTOprazole 40 MG TAB PO SCH (19:36)
[2021-07-21] MEDS: TERAZOSIN HCL 5 MG CAP PO SCH (19:36)
[2021-07-22] MEDS: LEVOTHYROXINE SODIUM 112 MCG TABLET PO SCH (06:08)
--- NOTE | 2021-07-22 07:14 | Hospitalist Progress Note ---
Date of Service July 21, 2021 Assessment & Plan (1) Respiratory failure with hypoxia: Plan: Secondary to COVID-pneumonia. Patient already completed remdesivir last week (previous admission) and continues on dexamethasone IV. Improved oxygen needs overnight. Cont to ambulate as tolerated. Continues on incentive spirometry, flutter valve, prone as able. Hold lasix. (2) Pneumonia due to COVID-19 virus: Plan: Plan as above. (3) Acute on chronic diastolic CHF (congestive heart failure): Plan: He is not on diuretic therapy as outpatient. He was given Lasix IV daily since admission on the , which has been held. Now off oxygen. Overall output is negative and he is down in weight >5kg since admission. Daily standing weights recommended daily continues on a low-sodium diet. (4) Dysphagia: Plan: chronic, Mild Minced and moist diet, crush all medications Aspiration precautions (5) CAD (coronary artery disease): Plan: Chronic, stable, continue home medical therapy including baby aspirin, atorvastatin, metoprolol. (6) UTI (urinary tract infection): Plan: Completed antibiotic therapy with cefdinir. (7) Diarrhea: Plan: recent diagnosis of infectious diarrhea 2/2 EIEC (diagnosed last admission, poss 2/2 packaged salad?)-resolved after treatment with cefdinir. (8) CKD (chronic kidney disease), stage III: Plan: Creatinine is around his baseline 1.4-1.5. Continue to avoid nephrotoxic substances and renally dose meds as needed (9) Hypertension: Plan: Chronic, controlled, continue hydralazine per home regimen. (10) Obstructive sleep apnea on CPAP: Plan: Declines to use CPAP in the hospital. Typically does use CPAP at home (11) Atrial fibrillation: Plan: Continue rate control with metoprolol. Continue apixaban for long-term anticoagulation and stroke prophylaxis. (12) DVT prophylaxis: Plan: DVT Ppx: Apixaban Code status: FULL Dispo-PT/OT cleared him to return home. Still weak when ambulating with walker. I ordered a wheelchair from case management who touched base with daughter regarding logistics of how to obtain this-difficult to do over the weekend. Discussed with daughter upcoming winter storm and pros/cons of discharge at that time. Patient is eager to go home and will be weak and deconditioned from recent infections and prolonged hospitalizations. She has son to her them at home who is 32. He is outfitting the bathroom as handicap accessible at this time. Although now patient doesn't need oxygen, he is already set up for it at home in case the need arises. Would feel comfortable with discharge to home with ongoing home health for PT, OT and nursing care in am. Bere Bernard DO [facility] Hospitalist Admission and Anticipated Discharge Date Admission Date: July 15, 2021 Subjective 81-year-old man with recent hospital admission for pneumonia due to COVID-19 virus presented after returning home with worsening shortness of breath. Patient reports breathing is fine today Denies any additional symptoms such as cough, fevers, chills Tolerating p.o. He is now off oxygen and eager to return home. Nurse walked him around room and still weak 2 step-no oxygen needs Discussed with daughter--likely better to return home in am, will retest strength and endurance at that time given he has just come off oxygen this am. Review of Systems Review of Systems: All systems were reviewed and negative except as indicated above. Physical Exam Physical Exam: CONSTITUTIONAL: WNWD, vitals as above, NAD EYES: normal conjunctivae, no scleral icterus ENT: external ear and nose normal, MMM NECK: trachea midline RESPIRATORY: clear to auscultation bilaterally, no crackles, rales or wheezes, normal respiratory effort CARDIOVASCULAR: regular rate and rhythm, S1 and 2 heard without murmurs, gallops or rubs, no JVD, no peripheral edema, GASTROINTESTINAL: soft, nontender, ND, no guarding MUSCULOSKELETAL: strength 5/5 throughout, head is normocephalic and atraumatic SKIN: warm and dry NEUROLOGIC: CN 2-12 grossly intact, no sensory deficit, normal cognition, normal speech, no tremor, no gross focal deficits PSYCHIATRIC: alert cooperative and oriented to person, place and time. Results & Data Results & Data ([facility]) Vital Signs (Past 12 Hours) Vital Signs Temp Pulse Resp BP BP Pulse Ox 07/21/21 23:00 36.4 C L 76 20 122/75 90 07/21/21 19:33 80 129/75 (1) Respiratory failure with hypoxia Chronicity: acute Qualified Code(s): J96.01 - Acute respiratory failure with hypoxia
[2021-07-22] MEDS: CALCIUM 600MG + VIT D 400 IU TAB PO SCH (08:20)
[2021-07-22] MEDS: CALCIUM CARBONATE 1250MG TAB PO SCH (08:20)
[2021-07-22] MEDS: dexAMETHasone 6 MG in SYRINGE 0 ML IV SCH (08:20)
[2021-07-22] MEDS: ACYCLOVIR 400 MG TAB PO SCH (08:20)
[2021-07-22] MEDS: METOPROLOL TARTRATE 50 MG TAB PO SCH (08:20)
[2021-07-22] MEDS: hydrALAZINE HCL 25 MG TAB PO SCH (08:20)
[2021-07-22] MEDS: APIXABAN 2.5 MG TAB PO SCH (08:21)
[2021-07-22] MEDS: ATORVASTATIN 10 MG TAB PO SCH (08:21)
[2021-07-22] MEDS: ASPIRIN 81 MG ECTAB PO SCH (08:22)
[2021-07-22] MEDS: allopurinoL 300 MG TAB PO SCH (08:22)
[2021-07-22] MEDS: CHOLECALCIFEROL 1,000 UNITS 25 MCG TAB PO SCH (08:22)
[2021-07-22] MEDS: CITALOPRAM 20 MG TAB PO SCH (08:23)
[2021-07-22] MEDS: SPIRONOLACTONE 25 MG TAB PO SCH (08:23)
[2021-07-22 09:37] LABS: Calcium 7.2 mg/dl (8.5-10.1); Creatinine Clr Calc Pharmacy 68.7 ml/min; Est GFR (African American) 78.6 ml/min; Est GFR (Non-African American) 67.8 ml/min; Potassium 4.1 mmol/L (3.5-5.1)
--- NOTE | 2021-07-22 09:53 | Discharge Summary ---
Date of Service July 22, 2021 Admission HPI Per Admitting Provider This is an 81yo M with a PMH of Covid, PE, B-cell leukocytosis, chronic diastolic heart failure, CAD, CKD III, left bundle branch block, NAHEED on CPAP and history of tachy deborah syndrome with an ICD that presents the ER for worsening shortness of breath.Was recently admitted from 07/09-07/13 for covid pneumonia. Discharged home on 2L [place] O2. Also found to have proteus UTI and infectious diarrhea and was discharged on cefdinir. [place] okay initially but has become significantly more short of breath in past 2 days despite increasing oxygen eventually to 6L [place]. Endorses ongoing dry cough, dyspnea on exertion and orthopnea. Poor appetite. No fever, chills, lightheadedness, CP, palpitations, nausea, vomiting, dysuria or diarrhea. No weight gain or lower extremity swelling. Daughter manages medication but no changes since discharge home on 07/23 that he knows of. Uses CPAP HS. Admission Exam Per Admitting Provider VS noted and reviewed oriented x 3, not in distress, speaks in sentences with no effort nor accessory muscle use normal rate, regular rhythm, no murmurs mild rales at the bases non distended, soft, nontender no bipedal edema, erythema, warmth no neuro deficits Principal Diagnosis Acute respiratory failure 2/2 covid pneumonia Acute on chronic diastolic heart failure Discharge Exam CONSTITUTIONAL: WNWD, vitals stable, NAD EYES: normal conjunctivae, no scleral icterus ENT: external ear and nose normal, MMM NECK: trachea midline RESPIRATORY: clear to auscultation bilaterally, no crackles, rales or wheezes, normal respiratory effort CARDIOVASCULAR: regular rate and rhythm, S1 and 2 heard without murmurs, gallops or rubs, no JVD, no peripheral edema, GASTROINTESTINAL: soft, nontender, ND, no guarding MUSCULOSKELETAL: strength 5/5 throughout, head is normocephalic and atraumatic SKIN: warm and dry NEUROLOGIC: CN 2-12 grossly intact, no sensory deficit, normal cognition, normal speech, no tremor, no gross focal deficits PSYCHIATRIC: alert cooperative and oriented to person, place and time. Discharge Data Allergies Allergy/AdvReac Type Severity Reaction Status Date / Time No Known Allergies Allergy Verified 07/15/21 14:35 Consultations 07/15/21 16:20 ED Decision to Admit Stat 07/16/21 08:00 Consult Pulmonology Routine Ordered Studies Laboratory Results WBC 14.74 K/uL (4.8-10.8) H 07/20/21 06:05 RBC 4.06 M/uL (4.7-6.1) L 07/20/21 06:05 Hgb 12.8 g/dL (14.0-18.0) L 07/20/21 06:05 Hct 37.6 % (42-52) L 07/20/21 06:05 MCV 92.6 fL (80-100) 07/20/21 06:05 MCH 31.5 pg (25-34) 07/20/21 06:05 MCHC 34.0 g/dL (32-36) 07/20/21 06:05 RDW Std Deviation 51.1 fL (36.4-46.3) H 07/20/21 06:05 RDW Coeff of [place] 15.0 % (11.5-14.5) H 07/20/21 06:05 Plt Count 217 K/uL (130-400) 07/20/21 06:05 MPV 11.7 fL (7.4-10.4) H 07/20/21 06:05 Immature Gran % (Auto) 0.2 % 07/15/21 14:50 Neut % (Auto) 87.0 % 07/15/21 14:50 Lymph % (Auto) 4.3 % 07/15/21 14:50 [place] % (Auto) 8.5 % 07/15/21 14:50 Eos % (Auto) 0.0 % 07/15/21 14:50 Baso % (Auto) 0.0 % 07/15/21 14:50 Neut # (Auto) 8.75 K/uL (1.4-6.5) H 07/15/21 14:50 Lymph # (Auto) 0.43 K/uL (1.2-3.4) L 07/15/21 14:50 [place] # (Auto) 0.86 K/uL (0.11-0.59) H 07/15/21 14:50 Eos # (Auto) 0.00 K/uL (0-0.5) 07/15/21 14:50 Baso # (Auto) 0.00 K/uL (0-0.2) 07/15/21 14:50 Immature Gran # (Auto) 0.02 K/uL (0.00-0.02) 07/15/21 14:50 ESR 7 mm/hr (0-20) 07/15/21 14:50 Sodium 134 mmol/L (136-145) L 07/22/21 08:28 Potassium 4.1 mmol/L (3.5-5.1) 07/22/21 08:28 Chloride 100 mmol/L (98-107) 07/22/21 08:28 Carbon Dioxide 28 mmol/L (21-32) 07/22/21 08:28 Anion Gap 6 (3-11) 07/22/21 08:28 BUN 34 mg/dl (6-23) H 07/22/21 08:28 Creatinine 1.03 mg/dl (0.6-1.4) 07/22/21 08:28 Est Cr Clr Drug Dosing 68.7 ml/min 07/22/21 08:28 Est GFR ( Amer) 78.6 ml/min 07/22/21 08:28 Est GFR (Non-Af Amer) 67.8 ml/min 07/22/21 08:28 BUN/Creatinine Ratio 33.0 (10-20) H 07/22/21 08:28 Glucose 152 mg/dl (70-99) H 07/22/21 08:28 Calcium 7.2 mg/dl (8.5-10.1) L 07/22/21 08:28 Ionized Calcium 0.96 mmol/L (1.12-1.32) L 07/20/21 06:05 Phosphorus 3.1 mg/dl (2.5-4.9) 07/19/21 08:31 Magnesium 1.7 mg/dl (1.7-2.4) 07/19/21 08:31 Total Bilirubin 1.1 mg/dl (0.2-1.0) H 07/20/21 06:05 AST 13 U/L (13-39) 07/20/21 06:05 ALT 19 U/L (7-52) 07/20/21 06:05 Alkaline Phosphatase 46 U/L (34-104) 07/20/21 06:05 Troponin I 0.015 ng/ml (0-0.045) 07/15/21 14:50 C-Reactive Protein 2.38 mg/dl (0-5.00) 07/20/21 06:05 B-Natriuretic Peptide 143 pg/ml (0-100) H 07/19/21 08:31 NT-Pro-B Natriuret Pep 4511 pg/ml (0-1800) H 07/15/21 14:50 Total Protein 5.1 gm/dl (6.0-8.3) L 07/20/21 06:05 Albumin 3.1 gm/dl (3.4-5.0) L 07/20/21 06:05 Globulin 2.0 gm/dl (2.5-4.0) L 07/20/21 06:05 Albumin/Globulin Ratio 1.6 (0.9-2) 07/20/21 06:05 Lipase 303 U/L (73-393) 07/15/21 14:50 Procalcitonin 0.21 ng/ml (0-0.5) 07/15/21 14:50 SARS-CoV-2 (PCR) POSITIVE (Negative) A* 07/15/21 14:50 Influenza Type A (PCR) Negative (Neg) 07/15/21 14:50 Influenza Type B (PCR) Negative (Neg) 07/15/21 14:50 RSV (RT-PCR) Negative (Neg) 07/15/21 14:50 Impressions Chest X-Ray 07/21/21 12:33 XR chest 1V portable CLINICAL HISTORY: covid pneumonia w hypoxia COMPARISON STUDY: Chest radiograph July 15, 2021. FINDINGS: Left subclavian biventricular pacer is in place. Cardiomegaly is unchanged. No pneumothorax or pleural effusion is present. Mild elevation of the right hemidiaphragm is unchanged. Multifocal bilateral airspace opacities are noted. Slight improvement is noted since prior exam. IMPRESSION: Slight improvement in multifocal bilateral airspace opacities consistent with viral pneumonia. ACT 112: Negative or not required by law. Electronically signed by: Kyler Lim M.D. 07/21/2021 12:52 PM Hospital Course (1) Respiratory failure with hypoxia: Secondary to COVID-pneumonia. Patient already completed remdesivir last week (previous admission) and continues on dexamethasone IV. Improved oxygen needs overnight. Cont to ambulate as tolerated. Continues on incentive spirometry, flutter valve, prone as able. Hold lasix. (2) Pneumonia due to COVID-19 virus: Plan as above. (3) Acute on chronic diastolic CHF (congestive heart failure): He is not on diuretic therapy as outpatient. He was given Lasix IV daily since admission on the , which has been held. Now off oxygen. Overall output is negative and he is down in weight >5kg since admission. Daily standing weights recommended daily continues on a low-sodium diet. (4) Dysphagia: chronic, Mild Minced and moist diet, crush all medications Aspiration precautions (5) CAD (coronary artery disease): Chronic, stable, continue home medical therapy including baby aspirin, atorvastatin, metoprolol. (6) UTI (urinary tract infection): Completed antibiotic therapy with cefdinir. (7) Diarrhea: recent diagnosis of infectious diarrhea 2/2 EIEC (diagnosed last admission, poss 2/2 packaged salad?)-resolved after treatment with cefdinir. (8) CKD (chronic kidney disease), stage III: Creatinine is around his baseline 1.4-1.5. Continue to avoid nephrotoxic substances and renally dose meds as needed (9) Hypertension: Chronic, controlled, continue hydralazine per home regimen. (10) Obstructive sleep apnea on CPAP: Declines to use CPAP in the hospital. Typically does use CPAP at home (11) Atrial fibrillation: Continue rate control with metoprolol. Continue apixaban for long-term anticoagulation and stroke prophylaxis. Total Time Total Time Spent Total Time Spent (In Minutes): 60 Discharge Plan Discharge Items Patient Disposition: Home - Home Health Services Reason For Visit: WORSENING HYPOXIA, COVID, CHF Discharge Diagnosis: Acute respiratory failure 2/2 covid pneumonia Acute on chronic diastolic heart failure Condition on Discharge: Good Activity: Resume your previous activity Non-emergency contact: Primary Care Provider Call non-emergency contact if: you have any medication questions and your symptoms worsen Follow-up/Referrals: Musa Stout MD [Primary Care Provider] - Diet: Low Sodium (2gm) Diet Texture: Easy to Chew Addtl Attending Provider Instructions: Please take all medications as instructed on discharge list below. You were retested and found to not require oxygen, however, please use your home oxygen as needed for shortness of breath. Home Health services are ordered for continued physical and occupational therapy to help you with ongoing strength training efforts. Please avoid driving until you have followed up with your primary care physician on follow-up. It is recommended that you follow-up with your primary care physician within one week of hospital discharge to ensure you are still doing well after returning home. Please stay on home isolation until you are 10 days post-symptom onset and have no fever or worsening symptoms. Please wear a mask in public to protect others and around those you know to have a weakened immune system or who may not be vaccinated. It was a pleasure taking care of you! Please call if you have any questions or problems. You can reach a [facility] hospitalist on duty at [facility] 24 hours a day by calling [phone]. Take care of yourself. Bere Bernard, [facility] Hospitalist Pending Studies at Discharge: No Stand-Alone Forms: [facility] Medications and DC Order Prescriptions: Continued aspirin 81 mg tablet,delayed release (DR/EC) 81 mg PO QAM RF: 0 spironolactone 25 mg tablet 25 mg PO QAM RF: 0 terazosin 5 mg Capsule 5 mg PO HS RF: 0 atorvastatin 10 mg Tablet 5 mg PO QAM RF: 0 omeprazole 40 mg Capsule,Delayed Release(Dr/Ec) 40 mg PO HS RF: 0 citalopram [Celexa] 20 mg Tablet 20 mg PO QAM RF: 0 allopurinol 300 mg Tablet 300 mg PO QAM RF: 0 hydralazine 50 mg Tablet 25 mg PO TID RF: 0 cholecalciferol (vitamin D3) [Vitamin D3] 2,000 unit Capsule 2,000 unit PO QAM RF: 0 levothyroxine 112 mcg Tablet 112 mcg PO QAM RF: 0 acyclovir 400 mg tablet 400 mg PO BID RF: 0 montelukast 10 mg tablet 10 mg PO DAILY RF: 0 Eliquis 2.5 mg Tablet 2.5 mg PO BID Qty: 60 RF: 0 metoprolol tartrate 50 mg Tablet 50 mg PO BID Qty: 60 RF: 0 (DME) Oxygen Home Liters Per Minute See Rx Instructions .Route Qty: 1 RF: 0 calcium carbonate 500 mg calcium (1,250 mg) Tablet 500 mg PO BID RF: 0 Discontinued cefdinir 300 mg Capsule 300 mg PO Q12 Qty: 12 RF: 0 Discharge Orders: Discharge Order (Routine); Ordered 07/22/21 Ordered By: Bere Bernard Admission Data Admit Date/Time: 07/15/21 16:57 Attending Provider: Bere Bernard Admit Provider: Stanley Maldonado Primary Care Provider: Musa Stout Other Providers: [facility],Home Healthcare ; Stanley Maldonado ; Camila Nelson Other Interventions: Discharge Summary Assessment (RN) Last Done: 07/22/21 10:05
[2021-07-23 11:38] LABS: C Reactive Protein 2.9 mg/dl (0-0.5)
[2021-07-23 12:09] LABS: C Reactive Protein 2.38 mg/dl (0-0.5)
== END 2021-07-22 11:00 | disposition home health service (06) | DRG 177 ==
LOC: ED 14:21 → EDINP 16:57 → SUATTDRO 16:57 → 2S 21:16 → 2W 07-19 15:54
DX: J91.8 Pleural effusion in other conditions classified elsewhere; R13.10 Dysphagia, unspecified; I50.33 Acute on chronic diastolic (congestive) heart failure; Z95.810 Presence of automatic (implantable) cardiac defibrillator; U07.1 COVID-19; B96.4 Proteus (mirabilis) (morganii) as the cause of diseases classified elsewhere; D72.829 Elevated white blood cell count, unspecified; N40.0 Benign prostatic hyperplasia without lower urinary tract symptoms; I48.91 Unspecified atrial fibrillation; A04.4 Other intestinal Escherichia coli infections; F32.9 Major depressive disorder, single episode, unspecified; Z83.3 Family history of diabetes mellitus; J12.82 Pneumonia due to coronavirus disease 2019; Z99.81 Dependence on supplemental oxygen; Z86.711 Personal history of pulmonary embolism; G47.33 Obstructive sleep apnea (adult) (pediatric); I13.0 Hypertensive heart and chronic kidney disease with heart failure and stage 1 through stage 4 chronic kidney disease, or unspecified chronic kidney disease; I25.10 Atherosclerotic heart disease of native coronary artery without angina pectoris; N39.0 Urinary tract infection, site not specified; Z96.642 Presence of left artificial hip joint; E66.01 Morbid (severe) obesity due to excess calories; Z79.82 Long term (current) use of aspirin; E03.9 Hypothyroidism, unspecified; J96.01 Acute respiratory failure with hypoxia; N18.30 Chronic kidney disease, stage 3 unspecified; Z68.41 Body mass index [BMI] 40.0-44.9, adult

== ENCOUNTER 2022-11-29 09:38 | Inpatient (IN) ==
[2022-11-29] MEDS ORDERED: SODIUM CHLORIDE 0.9% 500 ML IV STA (09:49)
--- NOTE | 2022-11-29 09:57 | Emergency Department Note ---
Impression & Plan Atrial fibrillation with rapid ventricular response ADMIT ED Provider Note HPI: The patient is an 83-year-old gentleman with history of atrial fibrillation, currently on anticoagulation, status post pacemaker, history of PE, history of multiple myeloma not currently undergoing any treatment, who presents emergency department with a chief complaint of generalized weakness for the past 7 days. Patient presents with family member at the bedside, states that they were to see his PCP today and advised to come to the emergency department for the patient to be assessed. On arrival here to the ED the patient does have tachycardia in the 120s consistent with atrial fibrillation with underlying left bundle branch block, patient denies any chest pain just states that he has had very low energy levels over about the past week. Denies any fever or chills, denies any recent cough or congestion, denies any nausea or vomiting. On arrival patient's blood pressure is 101/72, heart rate is in the 120s, patient is saturating well on room air, he is afebrile on arrival. ROS: - Per HPI *Outpatient medications and allergy history reviewed. *Pertinent external medical records reviewed. 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 Medical Decision Making: Patient presented to the emergency department with generalized weakness, daughter later states he has had some severe dyspnea on exertion around the house over the past week as well. He has not had any chest pain. Patient was noted to be in atrial fibrillation with RVR on arrival, he was given some IV fluid as well as 5 of IV metoprolol with good response. EKG shows atrial fibrillation with RVR, underlying left bundle branch block, no acute ischemic changes are noted. Patient denies chest pain. Low suspicion for ACS. Lab work otherwise obtained shows no leukocytosis, hemoglobin is normal at 14.2, platelet count also within normal limits, CMP does not show any critical electrolyte abnormalities, magnesium and calcium slightly low which were ordered for IV repletion. TSH mildly elevated but free T4 is normal. BNP is within normal limits. Chest x-ray does show mild pulmonary edema. Patient got up to ambulate to the restroom several times while here and had severe dyspnea with t achypnea into the high 30s. He denied any chest pain with these episodes. Curiously BNP is within normal limits but given his symptoms I do feel that he would benefit from admission. Patient was evaluated by [facility] cardiology while here in the ED, will plan for admission and echocardiogram. Case was then discussed with the on-call midlevel provider at [facility] and the patient was admitted to the hospitalist service in stable condition. Consultants: -Cardiology, Dr. Galindo -Hospitalist, Dr. Bernard Disposition discussion held by myself with: -Patient and daughter at the bedside * CRITICAL CARE TIME: ( 45 ) minutes -Stabilization of atrial fibrillation with RVR requiring IV rate control medications, time spent at the bedside, interpretation of diagnostic studies including EKG, discussion with family, discussion with subspecialty serv ices/cardiology in regards to management, discussion with hospitalist service for arrangement of admission Diagnosis: 1. Atrial fibrillation with RVR 2. Dyspnea on exertion 3. Pulmonary edema, mild Disposition: Admission Amadeo Moreno DO Emergency Medicine Past Med/Surg History Medical History 2018 novel coronavirus-infected pneumonia (NCIP) ? HX Anxiety and depression Atrial fibrillation with rapid ventricular response hx cardioversion...unsuccessful pacemaker placed jun 2021 BPH without obstruction/lower urinary tract symptoms Carpal tunnel syndrome Chronic diarrhea WORSENING...REASON FOR UPCOMING PROCEDURES Chronic sinusitis CKD (chronic kidney disease), stage III Elevated troponin I level Escherichia coli infection HX GERD (gastroesophageal reflux disease) Gout hx History of DVT (deep vein thrombosis) History of paroxysmal supraventricular tachycardia ? HX History of pulmonary embolism Hyperlipidemia Hypertension Hypoxia Klebsiella infection HX Lambda light chain myeloma LBBB (left bundle branch block) ? HX Multiple myeloma dx 4 yr ago...current chemo tx monthly Neuralgia ON SIDE OF FACE Nonobstructive atherosclerosis of coronary artery By 05/2010 catheterization Obesity Obstructive sleep apnea on CPAP Prolonged QT interval ? HX Recurrent Clostridioides difficile infection Restless leg syndrome SOB (shortness of breath) SOB ON EXERTION...CT scan done 1-1.5 mon ago [facility]...form of blood clot and fluid ? extent , some kind of scarring - f/u with lung specialist - appointment not yet made Thrombocytopenia Thyroid disease Surgical History H/O sinus surgery unknown History of appendectomy History of bilateral knee arthroplasty History of cardiac cath ? 2009 - unable to verify - no known hx stent(s) History of cataract surgery RT/LEFT History of colonoscopy History of esophagogastroduodenoscopy (EGD) History of pacemaker jun 2021/? type/recent check unknown details History of revision of total knee arthroplasty ? side...d/t infection History of thoracentesis July [address] Jeffries. No bacterial growth or malignancy Pleurx catheter placed July 2019. Removed September 2019 History of tooth extraction History of total right hip arthroplasty Hx of cholecystectomy Status post total hip replacement, left Family History Father Heart disease Mother Diabetes Hypertension Brother Family hx of colon cancer Brother Family hx of colon cancer Social History Smoking Status: Unknown if ever smoked Second Hand Exposure: No; Do You Dip or Chew Tobacco: No; Hx Alcohol Use: No Hx Substance Use: No Preferred Language: Sinhala Communication Ability: Effective Communication Ability Comment: PT DAUGHTER SHADY DAY, SIGNS CONSENTS (PT LIMITED COMPREHENSION) Donor Services Team Leader Required: No Beliefs That Will Affect Care: None marital status: Current Living Situation: Spouse and Family Current Living Situation Comment: AND DAUGHTER How many Children do You have: 2 Feels Safe at Home: Yes Assistive Devices: CPAP, Denture - Upper, Denture - Lower, Walker and Wh eelchair Allergies Allergies Allergy/AdvReac Type Severity Reaction Status Date / Time covid 19 vaccine, pfizer AdvReac Unknown probable Uncoded 07/18/22 14:29 reaction too: throat swelling Home Meds Home Medications Medication Instructions Recorded Confirmed allopurinol 300 mg tablet 300 mg PO QAM 04/30/18 07/18/22 atorvastatin 10 mg tablet 5 mg PO QAM 04/30/18 07/18/22 cholecalciferol (vitamin D3) 50 2,000 unit PO QAM 04/30/18 07/18/22 mcg (2,000 unit) capsule (Vitamin D3) citalopram 20 mg tablet (Celexa) 40 mg PO QAM 04/30/18 07/18/22 hydralazine 50 mg tablet 25 mg PO TID 04/30/18 07/18/22 omeprazole 40 mg capsule,delayed 40 mg PO HS 04/30/18 07/18/22 release terazosin 5 mg capsule 5 mg PO HS 04/30/18 07/18/22 levothyroxine 112 mcg tablet 112 mcg PO QAM 05/22/19 07/18/22 aspirin 81 mg tablet,delayed 81 mg PO QAM 03/10/20 07/18/22 release spironolactone 25 mg tablet 25 mg PO QAM 03/10/20 07/18/22 acyclovir 400 mg tablet 400 mg PO BID 05/16/20 07/18/22 montelukast 10 mg tablet 10 mg PO QAM 05/07/21 07/18/22 calcium carbonate 500 mg calcium 500 mg PO BID 07/15/21 07/18/22 (1,250 mg) tablet diphenoxylate-atropine 2.5 1 tab PO QID PRN Diarrhea 07/10/22 07/18/22 mg-0.025 mg tablet Previous Rx's Medication Instructions Recorded Oxygen Home #1 ea 07/13/21 apixaban 2.5 mg tablet (Eliquis) 2.5 mg PO BID #60 tabs 07/13/21 metoprolol tartrate 50 mg tablet 50 mg PO BID #60 tabs 07/13/21 Results & Data (ED) Vital Signs Vital Signs - 24 hr 11/29/22 09:44 11/29/22 10:03 11/29/22 10:38 Temperature 36.4 C L Temperature Source Temporal Artery Scan Pulse Rate 129 H 123 H 110 H Pulse Rate from SpO2 Sensor Respiratory Rate 22 Respiratory Effort / Characteristics Non-Labored Respiratory Depth Normal Blood Pressure 101/72 143/111 H Blood Pressure Mean 81 Pulse Oximetry 96 Oxygen Delivery Method Room Air Sepsis Recent Fever Within 48 Hours No Sepsis New/Unexplained Change in Mental Status N/A Sepsis Action Taken by Nursing No Action Required 11/29/22 10:04 11/29/22 10:30 11/29/22 10:30 Temperature Temperature Source Pulse Rate 123 H 83 Pulse Rate from SpO2 Sensor Respiratory Rate 26 H 24 Respiratory Effort / Characteristics Respiratory Depth Blood Pressure 143/111 H Blood Pressure Mean 117 Pulse Oximetry Oxygen Delivery Method Sepsis Recent Fever Within 48 Hours Sepsis New/Unexplained Change in Mental Status Sepsis Action Taken by Nursing 11/29/22 11:00 11/29/22 11:00 11/29/22 11:34 Temperature Temperature Source Pulse Rate 65 Pulse Rate from SpO2 Sensor Respiratory Rate 29 H Respiratory Effort / Characteristics Respiratory Depth Blood Pressure 127/98 117/82 Blood Pressure Mean 105 98 Pulse Oximetry Oxygen Delivery Method Sepsis Recent Fever Within 48 Hours Sepsis New/Unexplained Change in Mental Status Sepsis Action Taken by Nursing 11/29/22 11:34 Temperature Temperature Source Pulse Rate Pulse Rate from SpO2 Sensor 109 H Respiratory Rate 39 H Respiratory Effort / Characteristics Respiratory Depth Blood Pressure Blood Pressure Mean Pulse Oximetry 93 Oxygen Delivery Method Sepsis Recent Fever Within 48 Hours Sepsis New/Unexplained Change in Mental Status Sepsis Action Taken by Nursing Laboratory Data 11/29/22 10:00 11/29/22 10:00 Lab Results 11/29/22 11/29/22 11/29/22 Range/Units 10:00 10:00 10:00 WBC 8.06 (4.8-10.8) K/ul RBC 4.21 L (4.70-6.10) M/uL Hgb 14.2 (14.0-18.0) g/dl Hct 41.5 L (42.0-52.0) % MCV 98.6 (80.0-100.0) fL MCH 33.7 (25.0-34.0) pg MCHC 34.2 (32.0-36.0) g/dL RDW Std Deviation 52.7 H (36.4-46.3) fL RDW Coeff of [place] 14.6 H (11.5-14.5) % Plt Count 165 (130-400) K/uL MPV 11.3 (9.4-12.4) fL Immature Gran % (Auto) 0.5 % Neut % (Auto) 68.3 % Lymph % (Auto) 16.0 % [place] % (Auto) 10.9 % Eos % (Auto) 3.6 % Baso % (Auto) 0.7 % Neut # (Auto) 5.50 (1.40-6.50) K/uL Lymph # (Auto) 1.29 (1.2-3.4) K/uL [place] # (Auto) 0.88 H (0.11-0.59) K/uL Eos # (Auto) 0.29 (0-0.50) K/uL Baso # (Auto) 0.06 (0-0.2) K/uL Immature Gran # (Auto) 0.04 (0.01-0.20) K/uL PT Cancelled INR Cancelled Sodium 140 (136-145) mmol/L Potassium 4.2 (3.5-5.1) mmol/L Chloride 106 (98-107) mmol/L Carbon Dioxide 27 (21-32) mmol/L Anion Gap 7 (3-11) BUN 15 (6-23) mg/dl Creatinine 1.37 (0.6-1.4) mg/dl Est Cr Clr Drug Dosing Not Reportable Est GFR ( Amer) 55.3 ml/min Est GFR (Non-Af Amer) 47.7 ml/min BUN/Creatinine Ratio 10.9 (10-20) Glucose 96 (70-99(Fasting)) mg/dl Calcium 8.2 L (8.6-10.3) mg/dl Magnesium 1.6 L (1.7-2.4) mg/dl Total Bilirubin 1.2 H (0.2-1.0) mg/dl AST 21 (13-39) U/L ALT 17 (7-52) U/L Alkaline Phosphatase 55 (34-104) U/L Troponin I High Sens 12.4 (0-20) pg/ml B-Natriuretic Peptide (0-100) pg/ml Total Protein 5.7 L (6.0-8.3) gm/dl Albumin 4.0 (3.4-5.0) gm/dl Globulin 1.7 L (2.5-4.0) gm/dl Albumin/Globulin Ratio 2.4 H (0.9-2) TSH (0.300-4.500) uIu/ml Free T4 (0.61-1.60) ng/dl SARS-CoV-2, RNA, NAAT (NEGATIVE) 11/29/22 11/29/22 11/29/22 Range/Units 10:00 10:00 11:53 WBC (4.8-10.8) K/ul RBC (4.70-6.10) M/uL Hgb (14.0-18.0) g/dl Hct (42.0-52.0) % MCV (80.0-100.0) fL MCH (25.0-34.0) pg MCHC (32.0-36.0) g/dL RDW Std Deviation (36.4-46.3) fL RDW Coeff of [place] (11.5-14.5) % Plt Count (130-400) K/uL MPV (9.4-12.4) fL Immature Gran % (Auto) % Neut % (Auto) % Lymph % (Auto) % [place] % (Auto) % Eos % (Auto) % Baso % (Auto) % Neut # (Auto) (1.40-6.50) K/uL Lymph # (Auto) (1.2-3.4) K/uL [place] # (Auto) (0.11-0.59) K/uL Eos # (Auto) (0-0.50) K/uL Baso # (Auto) (0-0.2) K/uL Immature Gran # (Auto) (0.01-0.20) K/uL PT INR Sodium (136-145) mmol/L Potassium (3.5-5.1) mmol/L Chloride (98-107) mmol/L Carbon Dioxide (21-32) mmol/L Anion Gap (3-11) BUN (6-23) mg/dl Creatinine (0.6-1.4) mg/dl Est Cr Clr Drug Dosing Est GFR ( Amer) ml/min Est GFR (Non-Af Amer) ml/min BUN/Creatinine Ratio (10-20) Glucose (70-99(Fasting)) mg/dl Calcium (8.6-10.3) mg/dl Magnesium (1.7-2.4) mg/dl Total Bilirubin (0.2-1.0) mg/dl AST (13-39) U/L ALT (7-52) U/L Alkaline Phosphatase (34-104) U/L Troponin I High Sens 11.6 (0-20) pg/ml B-Natriuretic Peptide (0-100) pg/ml Total Protein (6.0-8.3) gm/dl Albumin (3.4-5.0) gm/dl Globulin (2.5-4.0) gm/dl Albumin/Globulin Ratio (0.9-2) TSH 5.687 H (0.300-4.500) uIu/ml Free T4 1.07 (0.61-1.60) ng/dl SARS-CoV-2, RNA, NAAT NEGATIVE (NEGATIVE) 11/29/22 Range/Units 11:53 WBC (4.8-10.8) K/ul RBC (4.70-6.10) M/uL Hgb (14.0-18.0) g/dl Hct (42.0-52.0) % MCV (80.0-100.0) fL MCH (25.0-34.0) pg MCHC (32.0-36.0) g/dL RDW Std Deviation (36.4-46.3) fL RDW Coeff of [place]u (11.5-14.5) % Plt Count (130-400) K/uL MPV (9.4-12.4) fL Immature Gran % (Auto) % Neut % (Auto) % Lymph % (Auto) % [place] % (Auto) % Eos % (Auto) % Baso % (Auto) % Neut # (Auto) (1.40-6.50) K/uL Lymph # (Auto) (1.2-3.4) K/uL [place] # (Auto) (0.11-0.59) K/uL Eos # (Auto) (0-0.50) K/uL Baso # (Auto) (0-0.2) K/uL Immature Gran # (Auto) (0.01-0.20) K/uL PT INR Sodium (136-145) mmol/L Potassium (3.5-5.1) mmol/L Chloride (98-107) mmol/L Carbon Dioxide (21-32) mmol/L Anion Gap (3-11) BUN (6-23) mg/dl Creatinine (0.6-1.4) mg/dl Est Cr Clr Drug Dosing Est GFR ( Amer) ml/min Est GFR (Non-Af Amer) ml/min BUN/Creatinine Ratio (10-20) Glucose (70-99(Fasting)) mg/dl Calcium (8.6-10.3) mg/dl Magnesium (1.7-2.4) mg/dl Total Bilirubin (0.2-1.0) mg/dl AST (13-39) U/L ALT (7-52) U/L Alkaline Phosphatase (34-104) U/L Troponin I High Sens (0-20) pg/ml B-Natriuretic Peptide 91 (0-100) pg/ml Total Protein (6.0-8.3) gm/dl Albumin (3.4-5.0) gm/dl Globulin (2.5-4.0) gm/dl Albumin/Globulin Ratio (0.9-2) TSH (0.300-4.500) uIu/ml Free T4 (0.61-1.60) ng/dl SARS-CoV-2, RNA, NAAT (NEGATIVE) Administered Medications Discontinued Medications Sodium Chloride (Nss) 500 mls @ 999 mls/hr IV .Q31M STA Stop: 11/29/22 10:19 Last Infusion: 11/29/22 10:34 Dose: 0 mls/hr Documented By: Admin: 11/29/22 10:03 Dose: 999 mls/hr Documented By: OL Metoprolol Tartrate (Metoprolol Tartrate 1 Mg/Ml Vial) 5 mg IV NOW STA Stop: 11/29/22 10:22 Last Admin: 11/29/22 10:38 Dose: 5 mg Documented By: OL Imaging Data Radiologist's Impression: Chest X-Ray 11/29/22 09:50 XR chest 1V portable HISTORY: Dysrhythmia COMPARISON: Chest CTA 05/14/2022. FINDINGS: No pneumothorax. No pleural effusions. There are low lung volumes, unchanged. The heart remains mildly enlarged. The left-sided dual-chamber pacemaker. There is mild central pulmonary vascular congestion without overt edema. No new focal lung consolidations to suggest a pneumonia. IMPRESSION: Cardiomegaly with mild central pulmonary vascular congestion without overt edema. ACT 112: Negative or not required by law. Electronically signed by: Ang Hurley M.D. 11/29/2022 10:22 AM Discharge Plan Visit Data Chief Complaint: Cardiac Assessment Stated Complaint: SENT BY DOC, SOMETHING GOING ON WITH HEART ED Provider: Amadeo Moreno Discharge Problem: Atrial fibrillation with rapid ventricular response Forms Stand Alone Forms: [facility] Prescriptions Prescriptions: No Action aspirin 81 mg tablet,delayed release (DR/EC) 81 mg PO QAM spironolactone 25 mg tablet 25 mg PO QAM terazosin 5 mg Capsule 5 mg PO HS atorvastatin 10 mg Tablet 5 mg PO QAM Rx Instructions: TAKE HALF A TABLET DAILY omeprazole 40 mg Capsule,Delayed Release(Dr/Ec) 40 mg PO HS citalopram [Celexa] 20 mg Tablet 40 mg PO QAM allopurinol 300 mg Tablet 300 mg PO QAM hydralazine 50 mg Tablet 25 mg PO TID cholecalciferol (vitamin D3) [Vitamin D3] 2,000 unit Capsule 2,000 unit PO QAM levothyroxine 112 mcg Tablet 112 mcg PO QAM acyclovir 400 mg tablet 400 mg PO BID montelukast 10 mg tablet 10 mg PO QAM Eliquis 2.5 mg Tablet 2.5 mg PO BID Qty: 60 0RF metoprolol tartrate 50 mg Tablet 50 mg PO BID Qty: 60 0RF (DME) Oxygen Home Liters Per Minute See Rx Instructions .Route Qty: 1 0RF Rx Instructions: 2 LPM with ambulation calcium carbonate 500 mg calcium (1,250 mg) Tablet 500 mg PO BID diphenoxylate-atropine 2.5-0.025 mg Tablet 1 tab PO QID PRN (Reason: Diarrhea) Referrals Referrals: Telma Jacobs CRNP [Primary Care Provider] -
[2022-11-29 10:17] LABS: Basophils # (auto) 0.06 K/uL (0-0.2); Basophils % (auto) 0.7 %; Eosinophils # (auto) 0.29 K/uL (0-0.50); Eosinophils % (auto) 3.6 %; Hematocrit (blood only) 41.5 % (42.0-52.0); Hemoglobin 14.2 g/dl (14.0-18.0); Immature Granulocytes # (auto) 0.04 K/uL (0.01-0.20); Immature Granulocytes % (auto) 0.5 %; Lymphocytes # (auto) 1.29 K/uL (1.2-3.4); Mean Corpuscular Hemoglobin 33.7 pg (25.0-34.0); Mean Corpuscular Hgb Conc 34.2 g/dL (32.0-36.0); Mean Corpuscular Volume 98.6 fL (80.0-100.0); Mean Platelet Volume 11.3 fL (9.4-12.4); Monocytes # (auto) 0.88 K/uL (0.11-0.59); Monocytes % (auto) 10.9 %; Neutrophils % (auto) 68.3 %; Platelet Count 165 K/uL (130-400); RDW Coefficient of Variation 14.6 % (11.5-14.5); RDW Standard Deviation 52.7 fL (36.4-46.3); Red Blood Count 4.21 M/uL (4.70-6.10); White Blood Count 8.06 K/ul (4.8-10.8)
[2022-11-29] MEDS ORDERED: METOPROLOL TARTRATE 1 MG/ML VIAL IV STA (10:21)
--- NOTE | 2022-11-29 10:23 | XRay Report ---
XR chest 1V portable HISTORY: Dysrhythmia COMPARISON: Chest CTA 05/14/2022. FINDINGS: No pneumothorax. No pleural effusions. There are low lung volumes, unchanged. The heart rem ains mildly enlarged. The left-sided dual-chamber pacemaker. There is mild central pulmonary vascular congestion without overt edema. No new focal lung consolidations to suggest a pneumonia. IMPRESSION: Cardiomegaly with mild central pulmonary vascular congestion without overt edema. ACT 112: Negative or not required by law. Electronically signed by: Ang Hurley M.D. 11/29/2022 10:22 AM
[2022-11-29 10:32] LABS: Alanine Aminotransferase 17 U/L (7-52); Albumin Globulin Ratio 2.4 (0.9-2); Alkaline Phosphatase 55 U/L (34-104); Anion Gap 7 (3-11); Aspartate Aminotransferase 21 U/L (13-39); BUN Creatinine Ratio 10.9 (10-20); Bilirubin,Total 1.2 mg/dl (0.2-1.0); Blood Urea Nitrogen 15 mg/dl (6-23); Calcium 8.2 mg/dl (8.6-10.3); Carbon Dioxide 27 mmol/L (21-32); Chloride 106 mmol/L (98-107); Est GFR (African American) 55.3 ml/min; Est GFR (Non-African American) 47.7 ml/min; Globulin 1.7 gm/dl (2.5-4.0); Glucose 96 mg/dl (70-99(Fasting)); Magnesium 1.6 mg/dl (1.7-2.4); Potassium 4.2 mmol/L (3.5-5.1); Sodium 140 mmol/L (136-145); Total Protein 5.7 gm/dl (6.0-8.3)
[2022-11-29 10:38] LABS: Troponin I High Sensitivity 12.4 pg/ml (0-20)
[2022-11-29 10:47] LABS: Thyroid Stimulating Hormone 5.687 uIu/ml (0.300-4.500)
[2022-11-29 11:19] LABS: T4 Free Thyroxine 1.07 ng/dl (0.61-1.60)
[2022-11-29] MEDS ORDERED: FUROSEMIDE 40 MG/4 ML VIAL IV ONE (11:49)
--- NOTE | 2022-11-29 12:41 | History & Physical Report ---
Date of Service November 29, 2022 Assessment & Plan (1) Exertional shortness of breath: (2) Acute on chronic diastolic CHF (congestive heart failure): Plan: Patient is 82 y/o M with PMH PAF anticoagulated on Eliquis, chronic diastolic CHF, CAD, chronic LBBB, HTN, CKD III, BPH, depression, hypothyroidism, NAHEED presented to ER with c/o increased exertional SOB x 1 week. In ER tachypneic, no hypoxia. In rapid atrial fibrillation as below BNP: 91 CXR: Cardiomegaly with mild central pulmonary vascular congestion without overt edema. In ER given 500ml NSS, Lasix 40mg IV Monitor I's & O's, daily weights Hold home oral Lasix Lasix 40mg IV daily Continue spironolactone Echo pending BMP in am (3) Atrial fibrillation with rapid ventricular response: Plan: History paroxysmal atrial fibrillation. Anticoagulated on Eliquis Today in ER HR 120's-130's HS troponin: 12-->11.6 In ER given 5mg metoprolol tartrate with improvement of pulse down to 60's. Still dyspneic with exertion Pacer interrogation pending Continue oral metoprolol tartrate 25mg BID Continue Eliquis (4) Hypomagnesemia: Plan: magnesium: 1.6 In ER given magnesium sulfate 1GM (5) ASCVD (arteriosclerotic cardiovascular disease): Plan: Continue aspirin, metoprolol tartrate, atorvastatin (6) Hypertension: Plan: Continue hydralazine, metoprolol tartrate (7) CKD (chronic kidney disease), stage III: Plan: Cr: 1.37. Baseline: Cr: 1.4-1.5 Monitor renal functions, avoid nephrotoxic agents (8) Monoclonal paraproteinemia: Plan: [facility] (9) Obstructive sleep apnea on CPAP: Plan: On CPAP HS (10) Hypothyroidism: Plan: Continue levothyroxine (11) LBBB (left bundle branch block): Plan: Chronic LBBB (12) BPH (benign prostatic hyperplasia): Plan: Continue terazosin DVT Prophylaxis On Eliquis Full Code as per discussion with pt Follows with [facility] for routine care Pt was seen and care coordinated with Dr Bernard. See addendum I spent a total of 78 minutes reviewing notes, outpatient records, labs, medication, coordinating, documenting and providing care for this patient excluding time spent in the performance of separately billed services. History of Present Illness Chief Complaint: SOB Primary Care Provider: ASHER Eddy Patient is 82 y/o M with PMH PAF anticoagulated on Eliquis, chronic diastolic CHF, CAD, chronic LBBB, HTN, CKD III, BPH, depression, hypothyroidism, NAHEED presented to ER with c/o increased exertional SOB x 1 week. Patient was seen at PCPs office today for symptoms and noted to be tachypneic and tachycardic and was referred to ER for further evaluation. Patient states over the past several months has had a 5 pound weight gain that has been gradual. He reports weighing himself daily. States has had intermittent edema of BLE however feels no significant increase of edema recently. Sleeps with 1 pillow. Uses CPAP at bedtime. Has chronic loose stools and uses Lomotil daily. Denies chest pain or palpitations. Denies fever/chills, diaphoresis, N/V/C, CUELLAR, dizziness, syncope, vision changes, neck pain, CP, SOB, palpitations, cough, sore throat, rhinorrhea, abdominal pain, paresthesias, weakness, rashes, urinary symptoms. Allergies Allergy/AdvReac Type Severity Reaction Status Date / Time covid 19 vaccine, pfizer AdvReac Unknown probable Uncoded 07/18/22 14:29 reaction too: throat swelling Home Medications Medication Instructions Recorded Confirmed Type allopurinol 300 mg tablet 300 mg PO QAM 04/30/18 11/29/22 History atorvastatin 10 mg tablet 5 mg PO QAM 04/30/18 11/29/22 History cholecalciferol (vitamin D3) 50 2,000 unit PO QAM 04/30/18 11/29/22 History mcg (2,000 unit) capsule (Vitamin D3) citalopram 20 mg tablet (Celexa) 40 mg PO QAM 04/30/18 11/29/22 History hydralazine 50 mg tablet 25 mg PO TID 04/30/18 11/29/22 History omeprazole 40 mg capsule,delayed 40 mg PO DAILY 04/30/18 11/29/22 History release terazosin 5 mg capsule 5 mg PO HS 04/30/18 11/29/22 History aspirin 81 mg tablet,delayed 81 mg PO QAM 03/10/20 11/29/22 History release spironolactone 25 mg tablet 25 mg PO QAM 03/10/20 11/29/22 History acyclovir 400 mg tablet 400 mg PO BID 05/16/20 11/29/22 History montelukast 10 mg tablet 10 mg PO QAM 05/07/21 11/29/22 History apixaban 2.5 mg tablet (Eliquis) 2.5 mg PO BID #60 tabs 07/13/21 11/29/22 Rx diphenoxylate-atropine 2.5 1 tab PO QID PRN Diarrhea 07/10/22 11/29/22 History mg-0.025 mg tablet levothyroxine 50 mcg tablet 50 mcg PO DAILY 11/29/22 11/29/22 History metoprolol tartrate 25 mg tablet 25 mg PO BID 11/29/22 11/29/22 History potassium chloride 20 mEq 20 meq PO DAILY 11/29/22 11/29/22 History tablet,extended release Past Med/Surg History Medical History (Updated 11/29/22 @ 15:22 by Meri Portillo PA-C) 2019 novel coronavirus-infected pneumonia (NCIP) ? HX Anxiety and depression Atrial fibrillation with rapid ventricular response hx cardioversion...unsuccessful pacemaker placed jun 2021 BPH without obstruction/lower urinary tract symptoms CAD (coronary artery disease) Nonobstructive per cardiac cath 05/2010 Carpal tunnel syndrome Chronic diarrhea WORSENING...REASON FOR UPCOMING PROCEDURES Chronic diastolic CHF (congestive heart failure) Chronic sinusitis CKD (chronic kidney disease), stage III Diarrhea DVT prophylaxis Elevated troponin I level Escherichia coli infection HX GERD (gastroesophageal reflux disease) Gout hx History of DVT (deep vein thrombosis) History of paroxysmal supraventricular tachycardia ? HX History of pulmonary embolism Hyperlipidemia Hypertension Hypothyroidism Hypoxia Hypoxia Klebsiella infection HX Lambda light chain myeloma LBBB (left bundle branch block) ? HX Multiple myeloma dx 4 yr ago...current chemo tx monthly Neuralgia ON SIDE OF FACE Nonobstructive atherosclerosis of coronary artery By 05/2010 catheterization Obesity Obstructive sleep apnea on CPAP Pneumonia due to COVID-19 virus Prolonged QT interval ? HX Recurrent Clostridioides difficile infection Restless leg syndrome SOB (shortness of breath) SOB ON EXERTION...CT scan done 1-1.5 mon ago [facility]...form of blood clot and fluid ? extent , some kind of scarring - f/u with lung specialist - appointment not yet made Thrombocytopenia Thyroid disease Surgical History H/O sinus surgery unknown History of appendectomy History of bilateral knee arthroplasty History of cardiac cath ? 2009 - unable to verify - no known hx stent(s) History of cataract surgery RT/LEFT History of colonoscopy History of esophagogastroduodenoscopy (EGD) History of pacemaker jun 2021/? type/recent check unknown details History of revision of total knee arthroplasty ? side...d/t infection History of thoracentesis July [address] Jeffries. No bacterial growth or malignancy Pleurx catheter placed July 2019. Removed September 2019 History of tooth extraction History of total right hip arthroplasty Hx of cholecystectomy Status post total hip replacement, left Family History Father Heart disease Mother Diabetes Hypertension Brother Family hx of colon cancer Brother Family hx of colon cancer Social History Smoking Status: Never smoker Second Hand Exposure: No; Do You Dip or Chew Tobacco: No; Tobacco Cessation Education Requested by Patient: No Hx Alcohol Use: No Hx Substance Use: No Preferred Language: Tamazight Communication Ability: Effective Communication Ability Comment: PT DAUGHTER FLO HE CONSENTS (PT LIMITED COMPREHENSION) 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 Beliefs That Will Affect Care: None marital status: Current Living Situation: Spouse Current Living Situation Comment: AND DAUGHTER How many Children do You have: 2 Other Information That Helps Us Care for You: No Feels Safe at Home: Yes Safety Concerns: Feels Safe At This Time Assistive Devices: Cane and Walker Review of Systems Review of Systems: All systems reviewed & are unremarkable except as noted in HPI & below Physical Exam Physical Exam: General: +tachypneic with any exertion otherwise no distress, obese Head: normocephalic, atraumatic Eyes: conjunctiva non-injected, anicteric ENT: normal inspection external ears, nose, mucous membranes moist Neck: supple, trachea midline Lungs: +tachypneic with minimal exertion, no hypoxia, +scattered wheezing, no rales CV: RRR, distant heart sounds, no murmur noted, 1+ pretibial edema Abd: normal BS, soft, non-tender Ext: no cyanosis, no calf tenderness Neuro: A&O x 3, no focal deficits noted, normal affect Skin: warm, dry Results & Data Results & Data Vital Signs (Past 12 Hours) Vital Signs Temp Pulse Resp BP Pulse Ox O2 Del Method 11/29/22 11:34 39 H 93 11/29/22 11:34 117/82 11/29/22 11:00 65 29 H 11/29/22 11:00 127/98 11/29/22 10:30 83 24 11/29/22 10:30 143/111 H 11/29/22 10:04 123 H 26 H 11/29/22 10:38 110 H 143/111 H 11/29/22 10:03 123 H 11/29/22 09:44 36.4 C L 129 H 22 101/72 96 Room Air Laboratory Results Short CBC 11/29/22 Range/Units 10:00 WBC 8.06 (4.8-10.8) K/ul Hgb 14.2 (14.0-18.0) g/dl Hct 41.5 L (42.0-52.0) % Plt Count 165 (130-400) K/uL BMP 11/29/22 10:00 Sodium 140 Potassium 4.2 Chloride 106 Carbon Dioxide 27 BUN 15 Creatinine 1.37 Glucose 96 Calcium 8.2 L Liver Function 11/29/22 Range/Units 10:00 Total Bilirubin 1.2 H (0.2-1.0) mg/dl AST 21 (13-39) U/L ALT 17 (7-52) U/L Alkaline Phosphatase 55 (34-104) U/L Albumin 4.0 (3.4-5.0) gm/dl Diagnostic Findings Chest X-Ray 11/29/22 09:50 XR chest 1V portable HISTORY: Dysrhythmia COMPARISON: Chest CTA 05/14/2022. FINDINGS: No pneumothorax. No pleural effusions. There are low lung volumes, unchanged. The heart remains mildly enlarged. The left-sided dual-chamber pacemaker. There is mild central pulmonary vascular congestion without overt edema. No new focal lung consolidations to suggest a pneumonia. IMPRESSION: Cardiomegaly with mild central pulmonary vascular congestion without overt edema. ACT 112: Negative or not required by law. Electronically signed by: Ang Hurley M.D. 11/29/2022 10:22 AM Supervising Physician Co-Signing Physician Notes 82-year-old man with a history of paroxysmal A-fib on Eliquis and chronic diastolic heart failure presents with shortness of breath with exertion for the last week. He reports being able to typically go down his road by his home without any issues a couple weeks ago. However now he only walks a couple of steps and is winded. He presented with atrial fibrillation with rapid ventricular response with a heart rate in the 120s to 130s and was successfully slowed down with a small amount of IV fluids and Lopressor IV. Although his heart rate feels better he still feels quite winded. Lungs are clear to auscultation bilaterally. Heart sounds are muffled and very distant. Irregular rhythm auscultated with S1-S2 heard and it was too difficult to determine if a murmur was present. He has no peripheral edema and appears euvolemic. No gross neuromuscular deficits. Vital signs are stable and he is oxygenating well on room air. There is no evidence of increased respiratory effort. He is obese. Work-up includes a BNP of 91, which is normal. A CBC is within normal limits. A CHEM panel was also within normal limits with a creatinine at baseline, 1.4. Magnesium was low at 1.6. Highly sensitive troponin ruled out [place] with a trend of 12.4 followed by 11.6. 1. Acute on chronic diastolic heart failure 2. Atrial fibrillation with rapid ventricular response 3. Hypomagnesemia 82 yo M presenting with a clear progressed heart failure syndrome including reduced exercise tolerance and shortness of breath. Fleeting intermittent chest pain present. He has no evidence of peripheral edema or JVD but is visibly winded on exam with pulmonary congestion on CXR. Consult cardiology, IV Lasix now, admit to PCU for monitoring, salt/fluid restriction. Daily weights and strict I/Os. Uncontrolled afib is likely a result of heart failure and rate is now improved after ER treatment with intravenous Lopressor. Continues on apixaban. DO Marco Antonio
[2022-11-29 12:48] LABS: Prothrombin Time 10.9 Seconds (9.0-12.0)
[2022-11-29] MEDS ORDERED: CALCIUM GLUCONATE 1,000 MG/60 ML BAG IV STA (12:51)
[2022-11-29] MEDS ORDERED: MAGNESIUM SULFATE / D5W 1 GM/100 ML BAG IV STA (12:52)
[2022-11-29] MEDS ORDERED: ACETAMINOPHEN 325 MG TAB PO PRN (14:19)
[2022-11-29] MEDS ORDERED: POLYETHYLENE (MIRALAX) 17 GM PACK PO PRN (14:19)
[2022-11-29] MEDS ORDERED: DIPHENOXYLATE/ATROPINE 2.5/0.025MG TAB PO PRN (14:19)
--- NOTE | 2022-11-29 14:54 | Electrocardiogram Report ---
Test Reason : Blood Pressure : / mmHG Vent. Rate : 127 BPM Atrial Rate : 125 BPM P-R Int : 000 ms QRS Dur : 138 ms QT Int : 356 ms P-R-T Axes : 000 -46 122 degrees QTc Int : 517 ms Atrial fibrillation with rapid ventricular response Left axis deviation Left bundle branch block Abnormal ECG When compared with ECG of 15-JUL-2021 14:41, No significant change Confirmed by Kvng Cain ([id number]) on 11/29/2022 2:54:29 PM Referred By: Confirmed By:Kvng Cain
--- NOTE | 2022-11-29 14:58 | Electrocardiogram Report ---
Test Reason : Blood Pressure : / mmHG Vent. Rate : 069 BPM Atrial Rate : 064 BPM P-R Int : 288 ms QRS Dur : 148 ms QT Int : 460 ms P-R-T Axes : 000 -40 118 degrees QTc Int : 492 ms Sinus rhythm with 1st degree A-V block with occasional Premature ventricular complexes atrial-paced complexes Left axis deviation Non-specific intra-ventricular conduction block Minimal voltage criteria for LVH, may be normal variant Lateral infarct (cited on or before 29-NOV-2022) Inferior infarct (cited on or before 29-NOV-2022) Abnormal ECG When compared with ECG of 29-NOV-2022 09:52, (unconfirmed) Significant changes have occurred Confirmed by Kvng Cain ([id number]) on 11/29/2022 2:58:21 PM Referred By: Telma Jacobs Confirmed By:Kvng Cain
[2022-11-29] MEDS ORDERED: MAGNESIUM SULFATE / D5W 1 GM/100 ML BAG IV ONE (15:00)
--- NOTE | 2022-11-29 15:02 | Cardiology Consultation ---
Date of Consultation November 29, 2022 Assessment & Plan (1) Atrial fibrillation with rapid ventricular response: (2) LBBB (left bundle branch block): (3) Acute on chronic diastolic heart failure with preserved ejection fraction: (4) Hypomagnesemia: Plan Patient admitted for complaints of worsening SOB x2 weeks and found to have afib RVR and signs/symptoms of acute decompensated CHF Update echo Per review of past device interrogations and notes, patient has history of PAF vs persistent afib. Last interrogation was 1 year ago. He also has a history of chronic LBBB, so this is unchnaged. Device interrogation requested to assess burden of afib over the last few months. If he is PAF, consider amiodarone initiation to maintain NSR. If he is persistent afib, continue metoprolol for rate control. Continue Eliquis for stroke prophylaxis. He is on low dose due to age > 80 and history of CKD (last outpatient creatinine was 1.5). Recommend IV furosemide to aid with volume status. He just received first dose in ER. replace electrolytes. Daily weight Monitor I+O's. Monitor renal function. Further recommendations pending review of pacemaker interrogation and echocardiogram. Case discussed with Dr. Galindo I spent a total of 60 minutes on the date of service in preparation, delivery, and documentation of the care provided to this patient, excluding any time spent in the performance of separately billed services. Meri Portillo PA-C Department of Cardiology, [facility] This chart was completed in part utilizing Speech Voice Recognition Software. Grammatical errors, random word insertions, pronoun errors, and incomplete sentences are an occasional consequence of this system due to software limitations, ambient noise, and hardware issues. Any formal questions or concerns about the content, text, or information contained within the body of this dictation should be directly addressed to the provider for clarification. Supervising Physician Co-Signing Physician Notes Supervising Physician Attestation: I have personally performed a history and physical examination on the patient. I agree with the physician pharmacy affairs assistant's findings and plan as documented with the following additions. Subjective: Patient presents with recent shortness of breath. Initially atrial fibrillation with rapid ventricular response noted on telemetry, with rates having already improved to the 60s 80 bpm range after receiving dose of IV metoprolol. Exam: Cardiovascular irregular rhythm, no murmurs, 1-2+ bilateral lower extremity edema Data: Echocardiogram with findings of normal ventricular wall motion, LVEF 55 to 60%, borderline aortic root dilatation, with diameter 3.8 cm, findings do not suggest pulmonary hypertension. Remote Device check today, 11/29/22: underlying rhythm is atrial fibrillation, generator longevity 13 years, lead impedance is normal, unsuccessful ATP evens on 11/28/22 at 8:52 am. Assessment and Plan: -Patient states he has felt worse x 1 week. -his AF burden remains unclear, however, remote interrogation suggest paroxysmal AF with 8 hour episode today, and Atrial pacing 74% , andV pacing 0.6 % Proceed with FIELD ADMINISTRATIVE ASSISTANT Eliquis, metoprolol, and IV furosemide. Depending on how pt feels after diuresis, can revisit if he feels better in SR. Starting amiodarone for rhythm control may be a consideration. Kvng Galindo, DO History of Present Illness Reason for Consultation: SOB; Tachycardic Requesting Physician: Dr. Bernard Attending Physician: Dr. Galindo History of Present Illness Patient is a 82 year old male known to [facility] with complex history. His last clinic evaluation was approx 1 year ago and he has not had any recent pacemaker interrogations. History includes: 1.Moderate nonobstructive CAD, per cardiac catheterization 05/2010 2.Chronic left bundle-branch block 3.Chronic diastolic CHF felt to be secondary to hypertension/hypertensive heart disease 4.History of pericardial effusion 5.Asymptomatic ventricular ectopy 6.Mild bilateral internal carotid artery disease 7.Dyslipidemia 8.CKD stage 3 9.Anemia 10.Lambda light chain multiple myeloma treated with Velcade, Darzalex, and Decadron starting on November 23, 2019, completing 8 cycles, now on Darzalex as of 06/06/2020. 11.History of left pleural effusion related to heart failure versus other. Status post left PleurX catheter placement with removal on July 27, 2019 12.NAHEED, on CPAP 13.Hypothyroidism 14.Hypoalbuminemia 15.GERD 16.Obesity 17.Depression 18.Gout 19.RLS 20.DJD 21.Osteoarthritis 22.BPH, elevated PSA, follows with Dr. Healy 23.History of pancreatitis 24.Hospitalization 05/2020 with right lower extremity DVT and extensive PEs- course complicated by C diff infection 25.Paroxysmal atrial fibrillation, dx 05/07/2021 s/p BENJIE guided DCCV on 05/08/2021 at [facility]. [id number] score of 5 (age 2, CHF, hypertension, CAD)- on Eliquis. 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 John Patient went to see PCP office earlier today with complaints of worsening SOB with activities over the last few weeks and generalized weakness. he was found to be hypertensive and tachycardic and sent to the ER for evaluation. EKG on arrival demonstrates likely atrial fib with RVR and underlying LBBB. He received IV metoprolol with improved HR's. His chest xray revealed mild pulm vascular congestion and he received IV lasix. HS troponin negative on arrival as well. He denied chest pain. He admits compliance with meds, confirmed with daughter at bedside. He does not weigh himself at home. He was surprised to see he weighed about 5-10 lbs more today at visit then prior visits. At time of consult, patient just received IV lasix. HR's trending down. Pacemaker interrogation completed but not yet available to review. He is comfortable at rest. SOB only with activity. NO fever, cough, chills. Mild edema noted.No chest pain. No orthopnea, PND. He denies dizziness or lightheadedness. Unaware of palpitations or tachypalpitations. Allergies Allergy/AdvReac Type Severity Reaction Status Date / Time covid 19 vaccine, pfizer AdvReac Unknown probable Uncoded 07/18/22 14:29 reaction too: throat swelling Home Medications Medication Instructions Recorded Confirmed Type allopurinol 300 mg tablet 300 mg PO QAM 04/30/18 11/29/22 History atorvastatin 10 mg tablet 5 mg PO QAM 04/30/18 11/29/22 History cholecalciferol (vitamin D3) 50 2,000 unit PO QAM 04/30/18 11/29/22 History mcg (2,000 unit) capsule (Vitamin D3) citalopram 20 mg tablet (Celexa) 40 mg PO QAM 04/30/18 11/29/22 History hydralazine 50 mg tablet 25 mg PO TID 04/30/18 11/29/22 History omeprazole 40 mg capsule,delayed 40 mg PO DAILY 04/30/18 11/29/22 History release terazosin 5 mg capsule 5 mg PO HS 04/30/18 11/29/22 History aspirin 81 mg tablet,delayed 81 mg PO QAM 03/10/20 11/29/22 History release spironolactone 25 mg tablet 25 mg PO QAM 03/10/20 11/29/22 History acyclovir 400 mg tablet 400 mg PO BID 05/16/20 11/29/22 History montelukast 10 mg tablet 10 mg PO QAM 05/07/21 11/29/22 History apixaban 2.5 mg tablet (Eliquis) 2.5 mg PO BID #60 tabs 07/13/21 11/29/22 Rx diphenoxylate-atropine 2.5 1 tab PO QID PRN Diarrhea 07/10/22 11/29/22 History mg-0.025 mg tablet levothyroxine 50 mcg tablet 50 mcg PO DAILY 11/29/22 11/29/22 History metoprolol tartrate 25 mg tablet 25 mg PO BID 11/29/22 11/29/22 History potassium chloride 20 mEq 20 meq PO DAILY 11/29/22 11/29/22 History tablet,extended release Patient History Medical History (Updated 11/29/22 @ 15:22 by Meri Portillo PA-C) 2019 novel coronavirus-infected pneumonia (NCIP) ? HX Anxiety and depression Atrial fibrillation with rapid ventricular response hx cardioversion...unsuccessful pacemaker placed jun 2021 BPH without obstruction/lower urinary tract symptoms CAD (coronary artery disease) Nonobstructive per cardiac cath 05/2010 Carpal tunnel syndrome Chronic diarrhea WORSENING...REASON FOR UPCOMING PROCEDURES Chronic diastolic CHF (congestive heart failure) Chronic sinusitis CKD (chronic kidney disease), stage III Diarrhea DVT prophylaxis Elevated troponin I level Escherichia coli infection HX GERD (gastroesophageal reflux disease) Gout hx History of DVT (deep vein thrombosis) History of paroxysmal supraventricular tachycardia ? HX History of pulmonary embolism Hyperlipidemia Hypertension Hypothyroidism Hypoxia Hypoxia Klebsiella infection HX Lambda light chain myeloma LBBB (left bundle branch block) ? HX Multiple myeloma dx 4 yr ago...current chemo tx monthly Neuralgia ON SIDE OF FACE Nonobstructive atherosclerosis of coronary artery By 05/2010 catheterization Obesity Obstructive sleep apnea on CPAP Pneumonia due to COVID-19 virus Prolonged QT interval ? HX Recurrent Clostridioides difficile infection Restless leg syndrome SOB (shortness of breath) SOB ON EXERTION...CT scan done 1-1.5 mon ago [facility]...form of blood clot and fluid ? extent , some kind of scarring - f/u with lung specialist - appointment not yet made Thrombocytopenia Thyroid disease Surgical History H/O sinus surgery unknown History of appendectomy History of bilateral knee arthroplasty History of cardiac cath ? 2009 - unable to verify - no known hx stent(s) History of cataract surgery RT/LEFT History of colonoscopy History of esophagogastroduodenoscopy (EGD) History of pacemaker jun 2021/? type/recent check unknown details History of revision of total knee arthroplasty ? side...d/t infection History of thoracentesis July [address] Jeffries. No bacterial growth or malignancy Pleurx catheter placed July 2019. Removed September 2019 History of tooth extraction History of total right hip arthroplasty Hx of cholecystectomy Status post total hip replacement, left Family History Father Heart disease Mother Diabetes Hypertension Brother Family hx of colon cancer Brother Family hx of colon cancer Social History Smoking Status: Never smoker Second Hand Exposure: No; Do You Dip or Chew Tobacco: No; Tobacco Cessation Education Requested by Patient: No Hx Alcohol Use: No Hx Substance Use: No Preferred Language: Pashto Communication Ability: Effective Communication Ability Comment: PT DAUGHTER SHADY DAY, SIGNS CONSENTS (PT LIMITED COMPREHENSION) Grounds/Maintenance Specialist Required: No Beliefs That Will Affect Care: None marital status: Current Living Situation: Spouse Current Living Situation Comment: AND DAUGHTER How many Children do You have: 2 Other Information That Helps Us Care for You: No Feels Safe at Home: Yes Safety Concerns: Feels Safe At This Time Assistive Devices: Cane and Walker Review of Systems Review of Systems: All systems reviewed & are unremarkable except as noted in HPI & below Physical Exam Constitutional: WD/WN, vitals as above + obese; no acute distress Neck: + thick neck Respiratory: no respiratory distress and no labored breathing Auscultation: + crackles (bases b/l ) Cardiovascular: Rate/Rhythm: + irregularly irregular Heart Sounds: no murmur Vessels: no JVD Extremities: + edema (1-2+ pretibial edema) Gastrointestinal (Abdomen): normal bowel sounds, soft, nontender, no hepatosplenomegaly Neurologic: PERRL, EOMI, accommodation nl, no face palsy, no dysarthria Results & Data Vital Signs (Past 12 Hours) Vital Signs Temp Pulse Pulse Resp BP BP Pulse Ox 11/29/22 14:19 11/29/22 14:19 37 C 94 H 20 122/71 97 11/29/22 14:19 11/29/22 11:34 39 H 93 11/29/22 11:34 117/82 11/29/22 11:00 65 29 H 11/29/22 11:00 127/98 11/29/22 10:30 83 24 11/29/22 10:30 143/111 H 11/29/22 10:04 123 H 26 H 11/29/22 10:38 110 H 143/111 H 11/29/22 10:03 123 H 11/29/22 09:44 36.4 C L 129 H 22 101/72 96 Pulse Ox O2 Del Method O2 Del Method 11/29/22 14:19 Room Air 11/29/22 14:19 Room Air 11/29/22 14:19 97 Room Air 11/29/22 11:34 11/29/22 11:34 11/29/22 11:00 11/29/22 11:00 11/29/22 10:30 11/29/22 10:30 11/29/22 10:04 11/29/22 10:38 11/29/22 10:03 11/29/22 09:44 Room Air Laboratory Results Cardiac Enzymes 11/29/22 11/29/22 11/29/22 Range/Units 10:00 11:53 11:53 AST 21 (13-39) U/L Troponin I High Sens 12.4 11.6 (0-20) pg/ml B-Natriuretic Peptide 91 (0-100) pg/ml Coagulation 11/29/22 11/29/22 11/29/22 Range/Units 10:00 11:53 12:05 PT Cancelled 10.9 B-Natriuretic Peptide 91 (0-100) pg/ml CBC 11/29/22 Range/Units 10:00 WBC 8.06 (4.8-10.8) K/ul RBC 4.21 L (4.70-6.10) M/uL Hgb 14.2 (14.0-18.0) g/dl Hct 41.5 L (42.0-52.0) % Plt Count 165 (130-400) K/uL Neut # (Auto) 5.50 (1.40-6.50) K/uL Lymph # (Auto) 1.29 (1.2-3.4) K/uL [place] # (Auto) 0.88 H (0.11-0.59) K/uL Eos # (Auto) 0.29 (0-0.50) K/uL Baso # (Auto) 0.06 (0-0.2) K/uL Comprehensive Metabolic Panel 11/29/22 Range/Units 10:00 Sodium 140 (136-145) mmol/L Potassium 4.2 (3.5-5.1) mmol/L Chloride 106 (98-107) mmol/L Carbon Dioxide 27 (21-32) mmol/L BUN 15 (6-23) mg/dl Creatinine 1.37 (0.6-1.4) mg/dl Glucose 96 (70-99(Fasting)) mg/dl Calcium 8.2 L (8.6-10.3) mg/dl AST 21 (13-39) U/L ALT 17 (7-52) U/L Alkaline Phosphatase 55 (34-104) U/L Total Protein 5.7 L (6.0-8.3) gm/dl Albumin 4.0 (3.4-5.0) gm/dl Intake and Output 11/29/22 11/29/22 11/29/22 06:59 14:59 22:59 Intake Total 500 / 500 Balance 500 / 500 Intake: IV 500 / 500 Sodium Chloride 0.9% 500 ml @ 500 / 500 999 mls/hr IV .Q31M STA Rx#: [id number] Other: Weight 131.587 kg Weight Measurement Method Standing Scale Patient Weight 11/30/22 06:59 Weight 131.587 kg Diagnostic Findings EKG on arrival: Atrial fibrillation with rapid ventricular response Left bundle branch block Abnormal ECG When compared with ECG of 15-JUL-2021 14:41, No significant change Repeat EKG: Atrial paced, ventricular sensed complexes. LBBB noted Device interrogation sent - awaiting review Chest X-Ray 11/29/22 09:50 XR chest 1V portable HISTORY: Dysrhythmia COMPARISON: Chest CTA 05/14/2022. FINDINGS: No pneumothorax. No pleural effusions. There are low lung volumes, unchanged. The heart remains mildly enlarged. The left-sided dual-chamber pacemaker. There is mild central pulmonary vascular congestion without overt edema. No new focal lung consolidations to suggest a pneumonia. IMPRESSION: Cardiomegaly with mild central pulmonary vascular congestion without overt edema. ACT 112: Negative or not required by law. Electronically signed by: Ang Hurley M.D. 11/29/2022 10:22 AM
[2022-11-29] MEDS ORDERED: CALCIUM GLUCONATE 10% 1,000 MG in DEXTROSE 5% 50 ML IV ONE (15:15)
[2022-11-29] MEDS: hydrALAZINE HCL 25 MG TAB PO SCH ×2 (16:42→21:00)
[2022-11-29] MEDS: METOPROLOL TARTRATE 25 MG TAB PO SCH (20:37)
[2022-11-29] MEDS: APIXABAN 2.5 MG TAB PO SCH (20:38)
[2022-11-29] MEDS: TERAZOSIN HCL 5 MG CAP PO SCH (20:38)
[2022-11-29] MEDS: ACYCLOVIR 400 MG TAB PO SCH (20:38)
[2022-11-30 05:20] LABS: Basophils # (auto) 0.05 K/uL (0-0.2); Basophils % (auto) 0.7 %; Eosinophils # (auto) 0.29 K/uL (0-0.50); Hematocrit (blood only) 37.3 % (42.0-52.0); Hemoglobin 12.9 g/dl (14.0-18.0); Immature Granulocytes # (auto) 0.01 K/uL (0.01-0.20); Immature Granulocytes % (auto) 0.1 %; Lymphocytes # (auto) 1.13 K/uL (1.2-3.4); Lymphocytes % (auto) 15.7 %; Mean Corpuscular Hemoglobin 33.3 pg (25.0-34.0); Mean Corpuscular Hgb Conc 34.6 g/dL (32.0-36.0); Mean Corpuscular Volume 96.4 fL (80.0-100.0); Mean Platelet Volume 11.4 fL (9.4-12.4); Monocytes # (auto) 0.83 K/uL (0.11-0.59); Monocytes % (auto) 11.5 %; Neutrophils # (auto) 4.91 K/uL (1.40-6.50); Platelet Count 157 K/uL (130-400); RDW Coefficient of Variation 14.4 % (11.5-14.5); RDW Standard Deviation 51.1 fL (36.4-46.3); Red Blood Count 3.87 M/uL (4.70-6.10); White Blood Count 7.22 K/ul (4.8-10.8)
[2022-11-30 05:38] LABS: Calcium 7.8 mg/dl (8.6-10.3); Magnesium 1.7 mg/dl (1.7-2.4); Potassium 3.9 mmol/L (3.5-5.1)
[2022-11-30 05:44] LABS: BUN Creatinine Ratio 11.9 (10-20); Creatinine Clr Calc Pharmacy 46.6 ml/min; Est GFR (African American) 46.2 ml/min; Est GFR (Non-African American) 39.8 ml/min
[2022-11-30] MEDS: LEVOTHYROXINE SODIUM 50 MCG TABLET PO SCH (08:30)
[2022-11-30] MEDS: METOPROLOL TARTRATE 25 MG TAB PO SCH ×2 (08:30→21:17)
[2022-11-30] MEDS: APIXABAN 2.5 MG TAB PO SCH ×2 (08:30→21:17)
[2022-11-30] MEDS: hydrALAZINE HCL 25 MG TAB PO SCH ×3 (08:30→21:17)
[2022-11-30] MEDS: ACYCLOVIR 400 MG TAB PO SCH ×2 (08:30→21:17)
[2022-11-30] MEDS: SPIRONOLACTONE 25 MG TAB PO SCH (08:31)
[2022-11-30] MEDS: ASPIRIN 81 MG ECTAB PO SCH (08:31)
[2022-11-30] MEDS: CHOLECALCIFEROL 1,000 UNITS 25 MCG TAB PO SCH (08:31)
[2022-11-30] MEDS: PANTOprazole 40 MG TAB PO SCH (08:31)
[2022-11-30] MEDS: POTASSIUM CHLORIDE CRTAB 20 MEQ TABCR PO SCH (08:31)
[2022-11-30] MEDS: ATORVASTATIN 10 MG TAB PO SCH (08:31)
[2022-11-30] MEDS: MONTELUKAST SODIUM 10 MG TABLET PO SCH (08:31)
[2022-11-30] MEDS: allopurinoL 300 MG TAB PO SCH (08:31)
[2022-11-30] MEDS: CITALOPRAM 40 MG TAB PO SCH (08:31)
[2022-11-30] MEDS ORDERED: FUROSEMIDE 40 MG/4 ML VIAL IV ONE (09:00)
--- NOTE | 2022-11-30 10:45 | Electrocardiogram Report ---
Test Reason : Blood Pressure : / mmHG Vent. Rate : 114 BPM Atrial Rate : 087 BPM P-R Int : 000 ms QRS Dur : 134 ms QT Int : 392 ms P-R-T Axes : 000 -41 122 degrees QTc Int : 540 ms Poor data quality, interpretation may be adversely affected afib with RVR Left axis deviation Non-specific intra-ventricular conduction block Inferior infarct , age undetermined Anterolateral infarct , age undetermined Abnormal ECG When compared with ECG of 29-NOV-2022 12:59, Afib has replaced Electronic atrial pacemaker Vent. rate has increased BY 45 BPM Confirmed by Xavier Patel ([id number]) on 11/30/2022 10:45:35 AM Referred By: Telma Jacobs Confirmed By:Xavier Patel
--- NOTE | 2022-11-30 12:03 | Cardiology Progress Note ---
Date of Service November 30, 2022 Assessment & Plan (1) Atrial fibrillation with rapid ventricular response: (2) LBBB (left bundle branch block): (3) Acute on chronic diastolic heart failure with preserved ejection fraction: (4) Hypomagnesemia: Plan The patient is clinically stable. He is in a rate controlled atrial fibrillation. I would recommend that we continue Lasix orally along with Aldactone. Admission and Anticipated Discharge Date Admission Date: November 29, 2022 Subjective The patient is sitting in the chair comfortably with no complaints. Review of Systems Review of Systems: Review of Systems: See HPI for pertinent positives. All other 10 point review of systems are negative. Physical Exam Physical Exam: General: no acute distress and stated age Head: normocephalic, no masses, lesions, tenderness or abnormalities Eyes: conjunctiva are pink and non-injected, sclera clear Neck: supple, no adenopathy, no bruits, normal jugular venous pulse, no he patojugular reflux Chest: normal shape and normal respiratory effort Lungs: clear to auscultation and percussion Cardiac Exam: - regular rate & rhythm, no murmurs gallops or rubs - normal S1, normal S2 Pulses: 2(+) throughout Abdomen: abdomen soft, non-tender, no abnormal masses and no hepatosplenomegaly Musculoskeletal: no gait disturbance, no joint inflammation, no deforming arthritis Extremities: no edema and no cyanosis Neuro: grossly normal exam Results & Data Vital Signs (Past 12 Hours) Vital Signs Temp Pulse Pulse Resp BP Pulse Ox O2 Del Method 11/30/22 08:32 36.6 C 67 18 154/73 H 96 Room Air 11/30/22 07:00 97 H 11/30/22 03:40 36.8 C 72 18 118/76 97 Nasal Cannula O2 Flow Rate 11/30/22 08:32 11/30/22 07:00 11/30/22 03:40 2 Laboratory Results Laboratory Results - last 24 hr 11/29/22 11/29/22 11/29/22 11:53 11:53 12:05 WBC RBC Hgb Hct MCV MCH MCHC RDW Std Deviation RDW Coeff of [place] Plt Count MPV Immature Gran % (Auto) Neut % (Auto) Lymph % (Auto) [place] % (Auto) Eos % (Auto) Baso % (Auto) Neut # (Auto) Lymph # (Auto) [place] # (Auto) Eos # (Auto) Baso # (Auto) Immature Gran # (Auto) PT 10.9 INR 1.0 Sodium Potassium Chloride Carbon Dioxide Anion Gap BUN Creatinine Est Cr Clr Drug Dosing Est GFR ( Amer) Est GFR (Non-Af Amer) BUN/Creatinine Ratio Glucose Calcium Magnesium Troponin I High Sens 11.6 B-Natriuretic Peptide 91 11/30/22 11/30/22 04:29 04:29 WBC 7.22 RBC 3.87 L Hgb 12.9 L Hct 37.3 L MCV 96.4 MCH 33.3 MCHC 34.6 RDW Std Deviation 51.1 H RDW Coeff of [place] 14.4 Plt Count 157 MPV 11.4 Immature Gran % (Auto) 0.1 Neut % (Auto) 68.0 Lymph % (Auto) 15.7 [place] % (Auto) 11.5 Eos % (Auto) 4.0 Baso % (Auto) 0.7 Neut # (Auto) 4.91 Lymph # (Auto) 1.13 L [place] # (Auto) 0.83 H Eos # (Auto) 0.29 Baso # (Auto) 0.05 Immature Gran # (Auto) 0.01 PT INR Sodium 140 Potassium 3.9 Chloride 106 Carbon Dioxide 28 Anion Gap 6 BUN 19 Creatinine 1.59 H Est Cr Clr Drug Dosing 46.6 Est GFR ( Amer) 46.2 Est GFR (Non-Af Amer) 39.8 BUN/Creatinine Ratio 11.9 Glucose 86 Calcium 7.8 L Magnesium 1.7 Troponin I High Sens B-Natriuretic Peptide Medications Administered Current Inpatient Medications Acetaminophen (Acetaminophen 325 Mg Tab) 650 mg PO Q4H PRN PRN Reason: Pain or Fever Stop: 12/29/22 14:18 Acyclovir (Acyclovir 400 Mg Tab) 400 mg PO BID [facility] Stop: 12/29/22 20:59 Last Admin: 11/30/22 08:30 Dose: 400 mg Allopurinol (Allopurinol 300 Mg Tab) 300 mg PO QAM [facility] Stop: 12/30/22 08:59 Last Admin: 11/30/22 08:31 Dose: 300 mg Apixaban (Apixaban 2.5 Mg Tab) 2.5 mg PO BID [facility] Stop: 12/29/22 20:59 Last Admin: 11/30/22 08:30 Dose: 2.5 mg Aspirin (Aspirin 81 Mg Ectab) 81 mg PO QAM [facility] Stop: 12/30/22 08:59 Last Admin: 11/30/22 08:31 Dose: 81 mg Atorvastatin Calcium (Atorvastatin 10 Mg Tab) 5 mg PO QAM [facility] Stop: 12/30/22 08:59 Last Admin: 11/30/22 08:31 Dose: 5 mg Citalopram Hydrobromide (Citalopram 40 Mg Tab) 40 mg PO QAM [facility] Stop: 12/30/22 08:59 Last Admin: 11/30/22 08:31 Dose: 40 mg Diphenoxylate HCl/Atropine (Diphenoxylate/Atropine 2.5/0.025mg Tab) 1 tab PO QID PRN PRN Reason: Diarrhea Stop: 12/29/22 14:18 Furosemide (Furosemide 40 Mg Tab) 40 mg PO QAM [facility] Stop: 12/31/22 08:59 Hydralazine HCl (Hydralazine Hcl 25 Mg Tab) 25 mg PO TID [facility] Stop: 12/29/22 14:59 Last Admin: 11/30/22 08:30 Dose: 25 mg Levothyroxine Sodium (Levothyroxine Sodium 50 Mcg Tablet) 50 mcg PO DAILY [facility] Stop: 12/30/22 08:59 Last Admin: 11/30/22 08:30 Dose: 50 mcg Metoprolol Tartrate (Metoprolol Tartrate 25 Mg Tab) 25 mg PO BID [facility] Stop: 12/29/22 20:59 Last Admin: 11/30/22 08:30 Dose: 25 mg Montelukast Sodium (Montelukast Sodium 10 Mg Tablet) [facility] Stop: 12/30/22 08:59 Last Admin: 11/30/22 08:31 Dose: 10 mg Pantoprazole Sodium (Pantoprazole 40 Mg Tab) 40 mg PO DAILY [facility] Stop: 12/30/22 08:59 Last Admin: 11/30/22 08:31 Dose: 40 mg Polyethylene Glycol (Polyethylene (Miralax) 17 Gm Pack) 17 gm PO DAILY PRN PRN Reason: Constipation Stop: 12/29/22 14:18 Potassium Chloride (Potassium Chloride Crtab 20 Meq Tabcr) 20 meq PO DAILY [facility] Stop: 12/30/22 08:59 Last Admin: 11/30/22 08:31 Dose: 20 meq Spironolactone (Spironolactone 25 Mg Tab) [facility] Stop: 12/30/22 08:59 Last Admin: 11/30/22 08:31 Dose: 25 mg Terazosin HCl (Terazosin Hcl 5 Mg Cap) 5 mg PO [facility] Stop: 12/29/22 20:59 Last Admin: 11/29/22 20:38 Dose: 5 mg Vitamin D (Cholecalciferol 1,000 Units 25 Mcg Tab) 2,000 units PO [facility] Stop: 12/30/22 08:59 Last Admin: 11/30/22 08:31 Dose: 2,000 units
--- NOTE | 2022-11-30 15:20 | Hospitalist Progress Note ---
Date of Service November 30, 2022 Assessment & Plan (1) Exertional shortness of breath: (2) Acute on chronic diastolic CHF (congestive heart failure): Plan: Patient is 82 y/o M with PMH PAF anticoagulated on Eliquis, chronic diastolic CHF, CAD, chronic LBBB, HTN, CKD III, BPH, depression, hypothyroidism, NAHEED presented to ER with c/o increased exertional SOB x 1 week. In the ED, respiratory rate greater than 22 and using accessory muscle for breathing. SPO2 within normal limits. BNP: 91 Chest x-ray personally reviewed; cardiomegaly with mild central pulmonary vascular congestion without overt edema. EKG from admission personally reviewed; A-fib with RVR with ventricular rate of 127. Echocardiogram reviewed; EF of 55 to 60%. Diuresed with IV Lasix. Strict input and output monitoring Daily weights Telemetry monitoring. (3) Atrial fibrillation with rapid ventricular response: Plan: History paroxysmal atrial fibrillation. Anticoagulated on Eliquis Today in ER HR 120's-130's HS troponin: 12-->11.6 In ER given 5mg metoprolol tartrate with improvement of pulse down to 60's. Still dyspneic with exertion Remote Device check today, 11/29/22: underlying rhythm is atrial fibrillation, generator longevity 13 years, lead impedance is normal, unsuccessful ATP evens on 11/28/22 at 8:52 am. Continue oral metoprolol tartrate 25mg BID Continue Eliquis (4) Hypomagnesemia: Plan: magnesium: 1.6 In ER given magnesium sulfate 1GM Continue to monitor. (5) ASCVD (arteriosclerotic cardiovascular disease): Plan: Continue aspirin, metoprolol tartrate, atorvastatin (6) Hypertension: Plan: Continue hydralazine, metoprolol tartrate (7) CKD (chronic kidney disease), stage III: Plan: Cr: 1.37. Baseline: Cr: 1.4-1.5 Monitor renal functions, avoid nephrotoxic agents (8) Monoclonal paraproteinemia: Plan: [facility] (9) Obstructive sleep apnea on CPAP: Plan: On CPAP HS (10) Hypothyroidism: Plan: Continue levothyroxine (11) LBBB (left bundle branch block): Plan: Chronic LBBB (12) BPH (benign prostatic hyperplasia): Plan: Continue terazosin DVT Prophylaxis On Eliquis Full Code as per discussion with pt Follows with Telma STERLING for routine care Time spent evaluating patient, direct bedside care, chart review, placing orders, interpretation of diagnostic studies, discussion with consultants, patient, and family members, as well as other required patient management activities is 60 minutes. Please note the above document was generated using voice recognition software. It may contain grammatical, syntax or spelling errors. Any formal questions or concerns about the content, text or information contained within the body of this dictation should be directly addressed to the provider for clarification Admission and Anticipated Discharge Date Admission Date: November 29, 2022 Subjective Patient comfortable; not in any distress. Reports that shortness of breath has improved compared to yesterday. Review of Systems Review of Systems: All systems reviewed & are unremarkable except as noted in Subjective Physical Exam Physical Exam: General: Comfortable; not in distress. Head: normocephalic, atraumatic Eyes: conjunctiva non-injected, anicteric ENT: normal inspection external ears, nose, mucous membranes moist Neck: supple, trachea midline Lungs: Basal crackles present. CV: RRR, distant heart sounds, no murmur noted, 1+ pretibial edema Abd: normal BS, soft, non-tender Ext: no cyanosis, no calf tenderness Neuro: A&O x 3, no focal deficits noted, normal affect Skin: warm, dry Results & Data Results & Data Vital Signs (Past 12 Hours) Vital Signs Temp Pulse Pulse Resp BP Pulse Ox O2 Del Method 11/30/22 12:09 36.6 C 59 L 20 132/72 97 Room Air 11/30/22 08:32 36.6 C 67 18 154/73 H 96 Room Air 11/30/22 07:00 97 H 11/30/22 03:40 36.8 C 72 18 118/76 97 Nasal Cannula O2 Flow Rate 11/30/22 12:09 11/30/22 08:32 11/30/22 07:00 11/30/22 03:40 2 Laboratory Results Laboratory Results WBC 7.22 K/ul (4.8-10.8) 11/30/22 04:29 RBC 3.87 M/uL (4.70-6.10) L 11/30/22 04:29 Hgb 12.9 g/dl (14.0-18.0) L 11/30/22 04:29 Hct 37.3 % (42.0-52.0) L 11/30/22 04: MCV 96.4 fL (80.0-100.0) 11/30/22 04: MCH 33.3 pg (25.0-34.0) 11/30/22 04: MCHC 34.6 g/dL (32.0-36.0) 11/30/22 04: RDW Std Deviation 51.1 fL (36.4-46.3) H 11/30/22 04: RDW Coeff of [place] 14.4 % (11.5-14.5) 11/30/22 04: Plt Count 157 K/uL (130-400) 11/30/22 04: MPV 11.4 fL (9.4-12.4) 11/30/22 04: Immature Gran % (Auto) 0.1 % 11/30/22 04: Neut % (Auto) 68.0 % 11/30/22 04: Lymph % (Auto) 15.7 % 11/30/22 04:29 [place] % (Auto) 11.5 % 11/30/22 04: Eos % (Auto) 4.0 % 11/30/22 04: Baso % (Auto) 0.7 % 11/30/22 04: Neut # (Auto) 4.91 K/uL (1.40-6.50) 11/30/22 04: Lymph # (Auto) 1.13 K/uL (1.2-3.4) L 11/30/22 04: [place] # (Auto) 0.83 K/uL (0.11-0.59) H 11/30/22 04:29 Eos # (Auto) 0.29 K/uL (0-0.50) 11/30/22 04: Baso # (Auto) 0.05 K/uL (0-0.2) 11/30/22 04: Immature Gran # (Auto) 0.01 K/uL (0.01-0.20) 11/30/22 04: PT 10.9 Seconds (9.0-12.0) 11/29/22 12:05 INR 1.0 (0.9-1.1) 11/29/22 12:05 Sodium 140 mmol/L (136-145) 11/30/22 04:29 Potassium 3.9 mmol/L (3.5-5.1) 11/30/22 04:29 Chloride 106 mmol/L (98-107) 11/30/22 04:29 Carbon Dioxide 28 mmol/L (21-32) 11/30/22 04:29 Anion Gap 6 (3-11) 11/30/22 04:29 BUN 19 mg/dl (6-23) 11/30/22 04:29 Creatinine 1.59 mg/dl (0.6-1.4) H 11/30/22 04:29 Est Cr Clr Drug Dosing 46.6 ml/min 11/30/22 04:29 Est GFR ( Amer) 46.2 ml/min 11/30/22 04:29 Est GFR (Non-Af Amer) 39.8 ml/min 11/30/22 04:29 BUN/Creatinine Ratio 11.9 (10-20) 11/30/22 04:29 Glucose 86 mg/dl (70-99(Fasting)) 11/30/22 04:29 Calcium 7.8 mg/dl (8.6-10.3) L 11/30/22 04:29 Magnesium 1.7 mg/dl (1.7-2.4) 11/30/22 04:29 Total Bilirubin 1.2 mg/dl (0.2-1.0) H 11/29/22 10:00 AST 21 U/L (13-39) 11/29/22 10:00 ALT 17 U/L (7-52) 11/29/22 10:00 Alkaline Phosphatase 55 U/L (34-104) 11/29/22 10:00 Troponin I High Sens 11.6 pg/ml (0-20) 11/29/22 11:53 B-Natriuretic Peptide 91 pg/ml (0-100) 11/29/22 11:53 Total Protein 5.7 gm/dl (6.0-8.3) L 11/29/22 10:00 Albumin 4.0 gm/dl (3.4-5.0) 11/29/22 10:00 Globulin 1.7 gm/dl (2.5-4.0) L 11/29/22 10:00 Albumin/Globulin Ratio 2.4 (0.9-2) H 11/29/22 10:00 TSH 5.687 uIu/ml (0.300-4.500) H 11/29/22 10:00 Free T4 1.07 ng/dl (0.61-1.60) 11/29/22 10:00 SARS-CoV-2, RNA, NAAT NEGATIVE (NEGATIVE) 11/29/22 10:00 Impressions Chest X-Ray 11/29/22 09:50 XR chest 1V portable HISTORY: Dysrhythmia COMPARISON: Chest CTA 05/14/2022. FINDINGS: No pneumothorax. No pleural effusions. There are low lung volumes, unchanged. The heart remains mildly enlarged. The left-sided dual-chamber pacemaker. There is mild central pulmonary vascular congestion without overt edema. No new focal lung consolidations to suggest a pneumonia. IMPRESSION: Cardiomegaly with mild central pulmonary vascular congestion without overt edema. ACT 112: Negative or not required by law. Electronically signed by: Ang Hurley M.D. 11/29/2022 10:22 AM
[2022-11-30] MEDS: TERAZOSIN HCL 5 MG CAP PO SCH (21:17)
[2022-12-01 05:30] LABS: BUN Creatinine Ratio 17.5 (10-20); Calcium 8.4 mg/dl (8.6-10.3); Creatinine Clr Calc Pharmacy 41.8 ml/min; Est GFR (African American) 40.6 ml/min; Magnesium 1.6 mg/dl (1.7-2.4); Potassium 4.1 mmol/L (3.5-5.1)
[2022-12-01 06:01] LABS: Basophils # (auto) 0.05 K/uL (0-0.2); Basophils % (auto) 0.6 %; Eosinophils % (auto) 3.8 %; Hematocrit (blood only) 37.3 % (42.0-52.0); Hemoglobin 12.7 g/dl (14.0-18.0); Immature Granulocytes # (auto) 0.03 K/uL (0.01-0.20); Immature Granulocytes % (auto) 0.4 %; Lymphocytes # (auto) 1.21 K/uL (1.2-3.4); Lymphocytes % (auto) 15.3 %; Mean Corpuscular Hemoglobin 33.6 pg (25.0-34.0); Mean Corpuscular Volume 98.7 fL (80.0-100.0); Mean Platelet Volume 11.6 fL (9.4-12.4); Monocytes # (auto) 1.05 K/uL (0.11-0.59); Monocytes % (auto) 13.3 %; Neutrophils # (auto) 5.27 K/uL (1.40-6.50); Neutrophils % (auto) 66.6 %; Platelet Count 153 K/uL (130-400); RDW Coefficient of Variation 14.4 % (11.5-14.5); RDW Standard Deviation 51.8 fL (36.4-46.3); Red Blood Count 3.78 M/uL (4.70-6.10); White Blood Count 7.91 K/ul (4.8-10.8)
[2022-12-01] MEDS ORDERED: FUROSEMIDE 40 MG TAB PO SCH (09:00)
[2022-12-01] MEDS: APIXABAN 2.5 MG TAB PO SCH (09:54)
[2022-12-01] MEDS: ACYCLOVIR 400 MG TAB PO SCH (09:54)
[2022-12-01] MEDS: METOPROLOL TARTRATE 25 MG TAB PO SCH (09:54)
[2022-12-01] MEDS: hydrALAZINE HCL 25 MG TAB PO SCH (09:54)
[2022-12-01] MEDS: PANTOprazole 40 MG TAB PO SCH (09:55)
[2022-12-01] MEDS: ASPIRIN 81 MG ECTAB PO SCH (09:55)
[2022-12-01] MEDS: ATORVASTATIN 10 MG TAB PO SCH (09:55)
[2022-12-01] MEDS: CHOLECALCIFEROL 1,000 UNITS 25 MCG TAB PO SCH (09:55)
[2022-12-01] MEDS: CITALOPRAM 40 MG TAB PO SCH (09:55)
[2022-12-01] MEDS: allopurinoL 300 MG TAB PO SCH (09:55)
[2022-12-01] MEDS: MONTELUKAST SODIUM 10 MG TABLET PO SCH (09:55)
[2022-12-01] MEDS: SPIRONOLACTONE 25 MG TAB PO SCH (09:55)
[2022-12-01] MEDS: LEVOTHYROXINE SODIUM 50 MCG TABLET PO SCH (09:56)
[2022-12-01] MEDS: POTASSIUM CHLORIDE CRTAB 20 MEQ TABCR PO SCH (09:58)
--- NOTE | 2022-12-01 17:02 | Discharge Summary ---
Date of Service December 01, 2022 Admission HPI Per Admitting Provider Patient is 82 y/o M with PMH PAF anticoagulated on Eliquis, chronic diastolic CHF, CAD, chronic LBBB, HTN, CKD III, BPH, depression, hypothyroidism, NAHEED presented to ER with c/o increased exertional SOB x 1 week. Patient was seen at PCPs office today for symptoms and noted to be tachypneic and tachycardic and was referred to ER for further evaluation. Patient states over the past several months has had a 5 pound weight gain that has been gradual. He reports weighing himself daily. States has had intermittent edema of BLE however feels no significant increase of edema recently. Sleeps with 1 pillow. Uses CPAP at bedtime. Has chronic loose stools and uses Lomotil daily. Denies chest pain or palpitations. Denies fever/chills, diaphoresis, N/V/C, CUELLAR, dizziness, syncope, vision changes, neck pain, CP, SOB, palpitations, cough, sore throat, rhinorrhea, abdominal pain, paresthesias, weakness, rashes, urinary symptoms. Admission Exam Per Admitting Provider General: +tachypneic with any exertion otherwise no distress, obese Head: normocephalic, atraumatic Eyes: conjunctiva non-injected, anicteric ENT: normal inspection external ears, nose, mucous membranes moist Neck: supple, trachea midline Lungs: +tachypneic with minimal exertion, no hypoxia, +scattered wheezing, no rales CV: RRR, distant heart sounds, no murmur noted, 1+ pretibial edema Abd: normal BS, soft, non-tender Ext: no cyanosis, no calf tenderness Neuro: A&O x 3, no focal deficits noted, normal affect Skin: warm, dry Principal Diagnosis Acute on chronic diastolic CHF (congestive heart failure): Discharge Exam General: Comfortable; not in distress. Head: normocephalic, atraumatic Eyes: conjunctiva non-injected, anicteric ENT: normal inspection external ears, nose, mucous membranes moist Neck: supple, trachea midline Lungs: Basal crackles present. CV: RRR, distant heart sounds, no murmur noted, 1+ pretibial edema Abd: normal BS, soft, non-tender Ext: no cyanosis, no calf tenderness Neuro: A&O x 3, no focal deficits noted, normal affect Skin: warm, dry Discharge Data Allergies Allergy/AdvReac Type Severity Reaction Status Date / Time covid 19 vaccine, pfizer AdvReac Unknown probable Uncoded 07/18/22 14:29 reaction too: throat swelling Consultations 11/29/22 12:05 ED Decision to Admit Stat 11/29/22 14:19 Consult Cardiology Routine Hospital Course (1) Exertional shortness of breath: (2) Acute on chronic diastolic CHF (congestive heart failure): (3) Atrial fibrillation with rapid ventricular response: (4) Hypomagnesemia: (5) ASCVD (arteriosclerotic cardiovascular disease): (6) Hypertension: (7) CKD (chronic kidney disease), stage III: (8) Monoclonal paraproteinemia: (9) Obstructive sleep apnea on CPAP: (10) Hypothyroidism: (11) LBBB (left bundle branch block): (12) BPH (benign prostatic hyperplasia): Plan Patient is 82 y/o M with PMH PAF anticoagulated on Eliquis, chronic diastolic CHF, CAD, chronic LBBB, HTN, CKD III, BPH, depression, hypothyroidism, NAHEED presented to ER with c/o increased exertional SOB x 1 week. In the ED, respiratory rate greater than 22 and using accessory muscle for breathing. SPO2 within normal limits. Chest x-ray personally reviewed; cardiomegaly with mild central pulmonary vascular congestion without overt edema. EKG from admission personally reviewed; A-fib with RVR with ventricular rate of 127. Patient was admitted to telemetry floor. He was started with IV diuretics. Cardiology was consulted. Patient reported improvement in shortness of breath over the course of the hospitalization. Cardiology recommended patient to be started on Lasix 40 mg daily and Aldactone. Patient was discharged home with instruction to follow-up with his PCP. Please note the above document was generated using voice recognition software. It may contain grammatical, syntax or spelling errors. Any formal questions or concerns about the content, text or information contained within the body of this dictation should be directly addressed to the provider for clarification Total Time Total Time Spent Total Time Spent (In Minutes): 40 Total Time Includes: Examination of the Patient, Discharge Planning, Medication Reconciliation, Communication With Other Providers and Other Discharge Plan Discharge Items Patient Disposition: Home - Self-Care Reason For Visit: CHF, AFIB Discharge Diagnosis: (1) Exertional shortness of breath: (2) Acute on chronic diastolic CHF (congestive heart failure): Activity: Resume your previous activity Non-emergency contact: Primary Care Provider Call non-emergency contact if: you have any medication questions and your symptoms worsen Follow-up/Referrals: Telma Jacobs CRNP [Primary Care Provider] - Diet: Regular Addtl Attending Provider Instructions: You were admitted to the hospital with shortness of breath. The cause for it is volume overload due to heart failure. You are prescribed Lasix 40 mg to be taken once daily in the morning. You were also prescribed magnesium to be taken twice daily. We will schedule a follow-up with your primary care doctor for sometime next week. Pending Studies at Discharge: No Stand-Alone Forms: [facility], Smoking Cessation Medications and DC Order Prescriptions: New furosemide 40 mg Tablet 40 mg PO QAM Qty: 30 0RF magnesium oxide 400 mg magnesium capsule 400 mg PO BID Qty: 60 0RF Continued aspirin 81 mg tablet,delayed release (DR/EC) 81 mg PO QAM spironolactone 25 mg tablet 25 mg PO QAM terazosin 5 mg Capsule 5 mg PO HS atorvastatin 10 mg Tablet 5 mg PO QAM Rx Instructions: TAKE HALF A TABLET DAILY omeprazole 40 mg Capsule,Delayed Release(Dr/Ec) 40 mg PO DAILY citalopram [Celexa] 20 mg Tablet 40 mg PO QAM allopurinol 300 mg Tablet 300 mg PO QAM hydralazine 50 mg Tablet 25 mg PO TID cholecalciferol (vitamin D3) [Vitamin D3] 2,000 unit Capsule 2,000 unit PO QAM acyclovir 400 mg tablet 400 mg PO BID levothyroxine 50 mcg tablet 50 mcg PO DAILY metoprolol tartrate 25 mg tablet 25 mg PO BID potassium chloride 20 mEq tablet extended release 20 meq PO DAILY montelukast 10 mg tablet 10 mg PO QAM Eliquis 2.5 mg Tablet 2.5 mg PO BID Qty: 60 0RF diphenoxylate-atropine 2.5-0.025 mg Tablet 1 tab PO QID PRN (Reason: Diarrhea) Discharge Orders: Discharge Order (Routine); Ordered 12/01/22 Ordered By: Ricardo Bynum Admission Data Admit Date/Time: 11/29/22 12:57 Attending Provider: Devkota,Ricardo Admit Provider: Bere Bernard Primary Care Provider: Telma Jacobs Other Providers: Bere Bernard ; Kvng Galindo Other Interventions: Discharge Summary Assessment (RN) Last Done: 12/01/22 11:33
== END 2022-12-01 13:59 | disposition home or self-care (01) | DRG 291 ==
LOC: ED 09:38 → SUATTDRO 12:57 → 4W 12:57
DX: N18.30 Chronic kidney disease, stage 3 unspecified; Z95.0 Presence of cardiac pacemaker; Z86.711 Personal history of pulmonary embolism; I25.10 Atherosclerotic heart disease of native coronary artery without angina pectoris; Z79.01 Long term (current) use of anticoagulants; N40.0 Benign prostatic hyperplasia without lower urinary tract symptoms; I44.7 Left bundle-branch block, unspecified; C90.00 Multiple myeloma not having achieved remission; K21.9 Gastro-esophageal reflux disease without esophagitis; D47.2 Monoclonal gammopathy; I48.91 Unspecified atrial fibrillation; G47.33 Obstructive sleep apnea (adult) (pediatric); E03.9 Hypothyroidism, unspecified; I13.0 Hypertensive heart and chronic kidney disease with heart failure and stage 1 through stage 4 chronic kidney disease, or unspecified chronic kidney disease; Z79.890 Hormone replacement therapy; Z88.7 Allergy status to serum and vaccine; I50.33 Acute on chronic diastolic (congestive) heart failure; E83.42 Hypomagnesemia

== ENCOUNTER 2023-01-23 12:06 | Inpatient (IN) ==
--- NOTE | 2023-01-23 13:13 | Emergency Department Note ---
Impression & Plan Hypoxia ADMIT ED Provider Note HPI: The patient is an 82-year-old gentleman with history of atrial fibrillation, status post pacemaker currently on anticoagulation, presents emergency department with a chief complaint of dyspnea and generalized weakness. Patient's daughter is at the bedside and is serving as the primary historian, she states that she was contacted today when she was at work by her father who was mentioning that he had some nausea and upper abdominal discomfort as well as shortness of breath and generalized weakness. On arrival here to the ED the patient was noted to be hypoxic at 85%, he does not wear baseline nasal cannula oxygen, he was placed on nasal cannula oxygen with good improvement. He denies any chest pain but states he does have some pain in his upper abdomen on arrival. Patient is otherwise in no acute distress on my initial evaluation, he is now saturating well on 5 L nasal cannula oxygen without increased work of breathing, blood pressure is 125/72, heart rate is within normal limits and paced on the monitor. ROS: - Per HPI Differential Diagnosis: CHF exacerbation/pulmonary edema, viral upper respiratory infection with dyspnea, acute coronary syndrome, pulmonary embolism, small bowel obstruction, acute cholecystitis, viral gastroenteritis, acute gastritis, amongst other potential pathologies. *Outpatient medications and allergy history reviewed. *Pertinent external medical records reviewed. PE: General: Alert HEENT: Normocephalic, trachea midline Eyes: Extraocular eye movement is intact, no scleral erythema Pulmonary: Diminished bilateral breath sounds without wheezing Cardio: Regular rate and rhythm GI: Abdomen is soft to palpation : No suprapubic tenderness MSK: No evidence of trauma or malformation of the extremities, no edema Skin: No evidence of rash Neuro: Alert, no focal deficits Psychiatric: Cooperative monitoring engineer: (As interpreted by myself): - An order was placed for continuous cardiac monitoring - Patient was noted to be in paced rhythm with a rate of 60 EKG: (As interpreted by myself): Rate: 77 Rhythm: Atrial paced rhythm Intervals: LA interval 330 ms, QRS 146 ms, QTc [address] changes: No ST elevation Time: 1210 Interventions provided in ED: -IV Lasix Medical Decision Making: Patient presented to the emergency department with hypoxia. Shortly after the patient arrived nasal cannula oxygen was placed with good improvement. IV was established and lab work obtained. Patient was maintained on monitor and storage bin tender. Lab work shows no leukocytosis, hemoglobin is stable at 12.8, platelet count is within normal limits, venous blood gas shows near normal pH at 7.35, mild elevation in PCO2 of 56, CMP does not show any critical findings, BNP is mildly elevated at 118, troponin is negative. Patient denies any chest pain. Low suspicion for ACS given lack of chest pain, low suspicion for PE as the patient is on anticoagulation already. CT imaging of the abdomen pelvis was obtained as the patient complained of some upper abdominal pain, this does not show any evidence of any emergent pathology. Patient was given IV Lasix as chest x-ray does show evidence of pulmonary edema, I suspect this is the source of his hypoxia. Given his hypoxia I did discuss case with the on-call hospitalist for [facility], Dr. Bernard, and the patient was placed for admission in stable condition. Consultants: Hospitalist, Dr. Bernard Disposition discussion held by myself with: Patient and daughter at bedside * CRITICAL CARE TIME: ( 35 ) minutes -Time spent independent of any procedures and management of hypoxia with oxygen saturation less than 90% on room air requiring supplemental oxygen for correction, time spent at the bedside, interpretation of EKG and diagnostic studies, discussion with other physicians and arrangement of admission Diagnosis: 1. Hypoxia, acute 2. Pulmonary edema, acute 3. Elevated BNP 4. Upper abdominal pain, acute Disposition: Admission Amadeo Moreno DO Emergency Medicine Past Med/Surg History Medical History 2019 novel coronavirus-infected pneumonia (NCIP) Acute on chronic diastolic heart failure with preserved ejection fraction Anxiety and depression Atrial fibrillation with rapid ventricular response BPH without obstruction/lower urinary tract symptoms CAD (coronary artery disease) Carpal tunnel syndrome Chronic diarrhea Chronic diastolic CHF (congestive heart failure) Chronic sinusitis CKD (chronic kidney disease), stage III Diarrhea DVT prophylaxis Elevated troponin I level Escherichia coli infection GERD (gastroesophageal reflux disease) Gout History of DVT (deep vein thrombosis) History of paroxysmal supraventricular tachycardia History of pulmonary embolism Hyperlipidemia Hypertension Hypothyroidism Hypoxia Hypoxia Klebsiella infection Lambda light chain myeloma LBBB (left bundle branch block) Multiple myeloma Neuralgia Nonobstructive atherosclerosis of coronary artery Obesity Obstructive sleep apnea on CPAP Pneumonia due to COVID-19 virus Prolonged QT interval Recurrent Clostridioides difficile infection Restless leg syndrome SOB (shortness of breath) Thrombocytopenia Thyroid disease Surgical History H/O sinus surgery History of appendectomy History of bilateral knee arthroplasty History of cardiac cath History of cataract surgery History of colonoscopy History of esophagogastroduodenoscopy (EGD) History of pacemaker History of revision of total knee arthroplasty History of thoracentesis History of tooth extraction History of total right hip arthroplasty Hx of cholecystectomy Status post total hip replacement, left Family History Father Heart disease Mother Diabetes Hypertension Brother Family hx of colon cancer Brother Family hx of colon cancer Social History Smoking Status: Never smoker Second Hand Exposure: No; Do You Dip or Chew Tobacco: No; Hx Alcohol Use: No Hx Substance Use: No Preferred Language: Frisian Communication Ability: Effective Communication Ability Comment: PT DAUGHTER SHADY DAY, SIGNS CONSENTS (PT LIMITED COMPREHENSION) Supplier Development Manager Required: No Beliefs That Will Affect Care: None marital status: Current Living Situation: Spouse Current Living Situation Comment: AND DAUGHTER How many Children do You have: 2 Feels Safe at Home: Yes Assistive Devices: Cane and Walker Allergies Allergies Allergy/AdvReac Type Severity Reaction Status Date / Time covid 19 vaccine, pfizer AdvReac Unknown probable Uncoded 12/26/22 15:20 reaction too: throat swelling Home Meds Home Medications Medication Instructions Recorded Confirmed allopurinol 300 mg tablet 300 mg PO QAM 04/30/18 12/26/22 atorvastatin 10 mg tablet 5 mg PO QAM 04/30/18 12/26/22 cholecalciferol (vitamin D3) 50 2,000 unit PO QAM 04/30/18 12/26/22 mcg (2,000 unit) capsule (Vitamin D3) citalopram 20 mg tablet (Celexa) 40 mg PO QAM 04/30/18 12/26/22 hydralazine 50 mg tablet 25 mg PO TID 04/30/18 12/26/22 omeprazole 40 mg capsule,delayed 40 mg PO DAILY 04/30/18 12/26/22 release terazosin 5 mg capsule 5 mg PO HS 04/30/18 12/26/22 aspirin 81 mg tablet,delayed 81 mg PO QAM 03/10/20 12/26/22 release acyclovir 400 mg tablet 400 mg PO BID 05/16/20 12/26/22 montelukast 10 mg tablet 10 mg PO QAM 05/07/21 12/26/22 diphenoxylate-atropine 2.5 1 tab PO QID PRN Diarrhea 07/10/22 12/26/22 mg-0.025 mg tablet levothyroxine 50 mcg tablet 50 mcg PO DAILY 11/29/22 12/26/22 metoprolol tartrate 25 mg tablet 25 mg PO BID 11/29/22 12/26/22 potassium chloride 20 mEq 20 meq PO DAILY 11/29/22 12/26/22 tablet,extended release Previous Rx's Medication Instructions Recorded apixaban 2.5 mg tablet (Eliquis) 2.5 mg PO BID #60 tabs 07/13/21 furosemide 40 mg tablet 40 mg PO QAM #30 tabs 12/01/22 magnesium oxide 400 mg PO BID #60 caps 12/01/22 Results & Data (ED) Vital Signs Vital Signs - 24 hr 01/23/23 12:11 01/23/23 12:16 01/23/23 12:21 Temperature 36.9 C Temperature Source Oral Pulse Rate 74 75 Pulse Rate [Right Finger] Pulse Rate from SpO2 Sensor Pulse Rhythm [Right Finger] Pulse Strength [Right Finger] Respiratory Rate 18 Respiratory Effort / Characteristics Non-Labored Spontaneous Respiratory Depth Normal Respiratory Pattern Regular Blood Pressure 125/72 Blood Pressure [Right Arm] Blood Pressure Mean 89 Blood Pressure Mean [Right Arm] Blood Pressure Position Sitting Pulse Oximetry 85 L 85 L Oxygen Delivery Method Room Air Nasal Cannula Oxygen Flow Rate 0 Sepsis Recent Fever Within 48 Hours No Sepsis New/Unexplained Change in Mental Status N/A Sepsis Action Taken by Nursing No Action Required Oxygen Flow Rate - Titration 4 Pulse Oximetry Post Tiitration 97 01/23/23 13:04 01/23/23 12:12 01/23/23 12:12 Temperature Temperature Source Pulse Rate 76 Pulse Rate [Right Finger] Pulse Rate from SpO2 Sensor Pulse Rhythm [Right Finger] Pulse Strength [Right Finger] Respiratory Rate 29 H Respiratory Effort / Characteristics Respiratory Depth Respiratory Pattern Blood Pressure 125/72 Blood Pressure [Right Arm] Blood Pressure Mean 89 Blood Pressure Mean [Right Arm] Blood Pressure Position Pulse Oximetry Oxygen Delivery Method Room Air Oxygen Flow Rate Sepsis Recent Fever Within 48 Hours Sepsis New/Unexplained Change in Mental Status Sepsis Action Taken by Nursing Oxygen Flow Rate - Titration Pulse Oximetry Post Tiitration 01/23/23 12:30 01/23/23 12:30 01/23/23 13:00 Temperature Temperature Source Pulse Rate 60 Pulse Rate [Right Finger] Pulse Rate from SpO2 Sensor 60 Pulse Rhythm [Right Finger] Pulse Strength [Right Finger] Respiratory Rate 24 Respiratory Effort / Characteristics Respiratory Depth Respiratory Pattern Blood Pressure 121/71 131/81 Blood Pressure [Right Arm] Blood Pressure Mean 90 98 Blood Pressure Mean [Right Arm] Blood Pressure Position Pulse Oximetry 97 Oxygen Delivery Method Oxygen Flow Rate 6 Sepsis Recent Fever Within 48 Hours Sepsis New/Unexplained Change in Mental Status Sepsis Action Taken by Nursing Oxygen Flow Rate - Titration Pulse Oximetry Post Tiitration 01/23/23 13:00 01/23/23 13:30 01/23/23 13:30 Temperature Temperature Source Pulse Rate 61 64 Pulse Rate [Right Finger] Pulse Rate from SpO2 Sensor 61 53 L Pulse Rhythm [Right Finger] Pulse Strength [Right Finger] Respiratory Rate 21 18 Respiratory Effort / Characteristics Respiratory Depth Respiratory Pattern Blood Pressure 102/69 Blood Pressure [Right Arm] Blood Pressure Mean 80 Blood Pressure Mean [Right Arm] Blood Pressure Position Pulse Oximetry 98 99 Oxygen Delivery Method Oxygen Flow Rate 6 4 Sepsis Recent Fever Within 48 Hours Sepsis New/Unexplained Change in Mental Status Sepsis Action Taken by Nursing Oxygen Flow Rate - Titration Pulse Oximetry Post Tiitration 01/23/23 14:58 Temperature Temperature Source Pulse Rate Pulse Rate [Right Finger] 60 Pulse Rate from SpO2 Sensor Pulse Rhythm [Right Finger] Regular Pulse Strength [Right Finger] Normal Respiratory Rate 20 Respiratory Effort / Characteristics Non-Labored Respiratory Depth Normal Respiratory Pattern Regular Blood Pressure Blood Pressure [Right Arm] 130/98 Blood Pressure Mean Blood Pressure Mean [Right Arm] 108 Blood Pressure Position Pulse Oximetry 98 Oxygen Delivery Method Nasal Cannula Oxygen Flow Rate 4 Sepsis Recent Fever Within 48 Hours Sepsis New/Unexplained Change in Mental Status Sepsis Action Taken by Nursing Oxygen Flow Rate - Titration Pulse Oximetry Post Tiitration Laboratory Data 01/23/23 12:15 01/23/23 12:15 Lab Results 01/23/23 01/23/23 01/23/23 Range/Units 12:15 12:15 12:15 WBC 7.51 (4.8-10.8) K/ul RBC 3.77 L (4.70-6.10) M/uL Hgb 12.8 L (14.0-18.0) g/dl Hct 37.8 L (42.0-52.0) % MCV 100.3 H (80.0-100.0) fL MCH 34.0 (25.0-34.0) pg MCHC 33.9 (32.0-36.0) g/dL RDW Std Deviation 53.4 H (36.4-46.3) fL RDW Coeff of [place] 14.4 (11.5-14.5) % Plt Count 164 (130-400) K/uL MPV 12.4 (9.4-12.4) fL Immature Gran % (Auto) 0.3 % Neut % (Auto) 70.5 % Lymph % (Auto) 14.1 % Real % (Auto) 11.9 % Eos % (Auto) 2.7 % Baso % (Auto) 0.5 % Neut # (Auto) 5.30 (1.40-6.50) K/uL Lymph # (Auto) 1.06 L (1.2-3.4) K/uL Real # (Auto) 0.89 H (0.11-0.59) K/uL Eos # (Auto) 0.20 (0-0.50) K/uL Baso # (Auto) 0.04 (0-0.2) K/uL Immature Gran # (Auto) 0.02 (0.01-0.20) K/uL PT Cancelled INR Cancelled VBG pH (7.36-7.41) VBG pCO2 (38-50) mmHg VBG pO2 mmHg VBG HCO3 mmol/L VBG O2 Saturation % VBG Base Excess mEq/L Sodium 142 (136-145) mmol/L Potassium 3.5 (3.5-5.1) mmol/L Chloride 104 (98-107) mmol/L Carbon Dioxide 32 (21-32) mmol/L Anion Gap 6 (3-11) BUN 15 (6-23) mg/dl Creatinine 1.28 (0.6-1.4) mg/dl Est Cr Clr Drug Dosing 57.8 ml/min Est GFR ( Amer) 60.0 ml/min Est GFR (Non-Af Amer) 51.8 ml/min BUN/Creatinine Ratio 11.7 (10-20) Glucose 104 H (70-99(Fasting)) mg/dl Calcium 7.9 L (8.6-10.3) mg/dl Total Bilirubin 1.0 (0.2-1.0) mg/dl AST 17 (13-39) U/L ALT 14 (7-52) U/L Alkaline Phosphatase 55 (34-104) U/L Troponin I High Sens 11.7 (0-20) pg/ml B-Natriuretic Peptide (0-100) pg/ml Total Protein 5.5 L (6.0-8.3) gm/dl Albumin 3.9 (3.4-5.0) gm/dl Globulin 1.6 L (2.5-4.0) gm/dl Albumin/Globulin Ratio 2.4 H (0.9-2) Urine Color Urine Appearance (Clear) Urine pH (4.5-7.5) Ur Specific [place] (1.000-1.030) Urine Protein (Negative) Urine Glucose (UA) (Negative) Urine Ketones (Negative) Urine Blood (Negative) Urine Nitrite (Negative) Urine Bilirubin (Negative) Urine Urobilinogen (Negative) Ur Leukocyte Esterase (Negative) 01/23/23 01/23/23 01/23/23 Range/Units 12:15 14:01 14:23 WBC (4.8-10.8) K/ul RBC (4.70-6.10) M/uL Hgb (14.0-18.0) g/dl Hct (42.0-52.0) % MCV (80.0-100.0) fL MCH (25.0-34.0) pg MCHC (32.0-36.0) g/dL RDW Std Deviation (36.4-46.3) fL RDW Coeff of [place] (11.5-14.5) % Plt Count (130-400) K/uL MPV (9.4-12.4) fL Immature Gran % (Auto) % Neut % (Auto) % Lymph % (Auto) % Real % (Auto) % Eos % (Auto) % Baso % (Auto) % Neut # (Auto) (1.40-6.50) K/uL Lymph # (Auto) (1.2-3.4) K/uL Real # (Auto) (0.11-0.59) K/uL Eos # (Auto) (0-0.50) K/uL Baso # (Auto) (0-0.2) K/uL Immature Gran # (Auto) (0.01-0.20) K/uL PT INR VBG pH 7.35 L (7.36-7.41) VBG pCO2 56 H (38-50) mmHg VBG pO2 54 mmHg VBG HCO3 31 mmol/L VBG O2 Saturation 83.5 % VBG Base Excess 3.8 mEq/L Sodium (136-145) mmol/L Potassium (3.5-5.1) mmol/L Chloride (98-107) mmol/L Carbon Dioxide (21-32) mmol/L Anion Gap (3-11) BUN (6-23) mg/dl Creatinine (0.6-1.4) mg/dl Est Cr Clr Drug Dosing ml/min Est GFR ( Amer) ml/min Est GFR (Non-Af Amer) ml/min BUN/Creatinine Ratio (10-20) Glucose (70-99(Fasting)) mg/dl Calcium (8.6-10.3) mg/dl Total Bilirubin (0.2-1.0) mg/dl AST (13-39) U/L ALT (7-52) U/L Alkaline Phosphatase (34-104) U/L Troponin I High Sens (0-20) pg/ml B-Natriuretic Peptide 118 H (0-100) pg/ml Total Protein (6.0-8.3) gm/dl Albumin (3.4-5.0) gm/dl Globulin (2.5-4.0) gm/dl Albumin/Globulin Ratio (0.9-2) Urine Color Yellow Urine Appearance Clear (Clear) Urine pH 5.0 (4.5-7.5) Ur Specific [place] 1.011 (1.000-1.030) Urine Protein Negative (Negative) Urine Glucose (UA) Negative (Negative) Urine Ketones Negative (Negative) Urine Blood Negative (Negative) Urine Nitrite Negative (Negative) Urine Bilirubin Negative (Negative) Urine Urobilinogen Negative (Negative) Ur Leukocyte Esterase Negative (Negative) Administered Medications Discontinued Medications Furosemide (Furosemide 40 Mg/4 Ml Vial) 40 mg IV ONE ONE Stop: 01/23/23 15:00 Last Admin: 01/23/23 15:04 Dose: 40 mg Documented By: PHILLY Ioversol (Optiray 320 100ml) 92 ml IV ONCE ONE Stop: 01/23/23 14:39 Last Admin: 01/23/23 14:38 Dose: 92 ml Documented By: [facility] Imaging Data Radiologist's Impression: Chest X-Ray 01/23/23 13:04 SINGLE VIEW CHEST CLINICAL HISTORY: Dyspnea FINDINGS: An AP, portable, upright chest radiograph is compared to study dated 11/29/2022. The examination is degraded by portable technique and apical lordotic positioning. A 2-lead cardiac pacemaker is unchanged in position. The heart is enlarged. There is pulmonary vascular congestion and mild interstitial edema. There is mild elevation of the right hemidiaphragm with bibasilar atelectasis. No large pleural effusion or pneumothorax is seen. The skeletal structures are osteopenic. The bony thorax is grossly intact. IMPRESSION: Cardiomegaly and cardiac pacemaker with evidence of congestive failure and mild pulmonary edema. Radiographic follow-up to resolution is recommended. ACT 112: Negative or not required by law. Electronically signed by: Shahram Hastings M.D. 01/23/2023 1:34 PM Abdomen/Pelvis CT 01/23/23 13:17 CT SCAN OF THE ABDOMEN AND PELVIS WITH IV CONTRAST CLINICAL HISTORY: Upper abdominal pain. COMPARISON STUDY: Abdominal CT dated 10/29/2020. TECHNIQUE: Following the IV administration of 92 cc of Optiray 320, CT scan of the abdomen and pelvis is performed from the lung bases to the proximal femora. Images are reviewed in the axial, sagittal, and coronal planes. IV contrast was administered without complication. A dose lowering technique was utilized adhering to the principles of ALARA. CT DOSE: 1507.39 mGy.cm FINDINGS: Lung bases: The heart is enlarged and without pericardial effusion. The coronary arteries are densely calcified. Pacemaker leads are in place. There is bibasilar scarring/atelectasis. There is no airspace consolidation. Trace pleural effusions are noted. There are punctate calcified granulomas. Calcification containing mediastinal lymph nodes are partially imaged. Gynecomastia is noted. Liver: The contrast-enhanced liver is normal in size, contour, and attenuation. There is no intrahepatic biliary ductal dilatation. The hepatic veins and portal veins are patent. Gallbladder: Surgically absent noting clips in the gallbladder fossa. Spleen: Normal in size and attenuation. Pancreas: Mildly atrophic and grossly unremarkable. Adrenal glands: Unremarkable. Kidneys: The contrast enhanced kidneys are atrophic and without hydronephrosis. The kidneys enhance symmetrically. An 18 mm complex cyst is again seen in the left upper pole. Abdominal vasculature: The abdominal aorta is normal in course and caliber noting moderate atherosclerotic calcification. Bowel: Postsurgical change is seen involving the right colon with ileocolic anastomosis. No bowel obstruction is identified. The appendix is not identified and reported surgically absent. Peritoneum: There is no intraperitoneal free air or abdominal ascites. Lymphadenopathy: There are mildly enlarged right iliac chain lymph nodes. The largest measures 1.8 cm in short axis. These are similar to the 2021 examination and of indeterminate significance. No additional pathologically enlarged lymph nodes are seen in the abdomen or pelvis. Pelvic viscera: Evaluation of the pelvis is significantly degraded by streak artifact from bilateral hip arthroplasties. The prostate gland is enlarged and heterogeneous noting median lobe hypertrophy. The bladder wall is thic kened/trabeculated indicating chronic outlet obstruction. A 14 mm bladder diverticulum seen on the left. There is an 11 mm calculus within the bladder lumen. There are small bilateral fat-containing groin hernias. Skeletal structures: The skeletal structures are osteopenic. There is moderate to advanced lumbosacral spondylosis. No lytic or blastic lesions are seen. Bilat eral hip arthroplasties are in place. Degenerative change is noted in the sacroiliac joints. IMPRESSION: 1. No acute infectious or inflammatory findings are identified in the abdomen or pelvis. 2. Prostatomegaly with evidence of chronic bladder outlet obstruction. 3. There is a large calculus in the bladder lumen. 4. Mildly enlarged right iliac chain nodes are pathologically indeterminant and unchanged from 202. 5. Cardiomegaly and trace pleural effusions. 6. Additional findings as above. ACT 112: Negative or not required by law. Electronically signed by: Shahram Hastings M.D. 01/23/2023 3:02 PM Discharge Plan Visit Data Chief Complaint: Weakness Stated Complaint: diaphoretic ED Provider: Amadeo Moreno Discharge Problem: Hypoxia Forms Stand Alone Forms: My [facility] Prescriptions Prescriptions: No Action aspirin 81 mg tablet,delayed release (DR/EC) 81 mg PO QAM terazosin 5 mg Capsule 5 mg PO HS atorvastatin 10 mg Tablet 5 mg PO QAM Rx Instructions: TAKE HALF A TABLET DAILY omeprazole 40 mg Capsule,Delayed Release(Dr/Ec) 40 mg PO DAILY citalopram [Celexa] 20 mg Tablet 40 mg PO QAM allopurinol 300 mg Tablet 300 mg PO QAM hydralazine 50 mg Tablet 25 mg PO TID cholecalciferol (vitamin D3) [Vitamin D3] 2,000 unit Capsule 2,000 unit PO QAM acyclovir 400 mg tablet 400 mg PO BID levothyroxine 50 mcg tablet 50 mcg PO DAILY metoprolol tartrate 25 mg tablet 25 mg PO BID potassium chloride 20 mEq tablet extended release 20 meq PO DAILY furosemide 40 mg Tablet 40 mg PO QAM Qty: 30 0RF magnesium oxide 400 mg magnesium capsule 400 mg PO BID Qty: 60 0RF montelukast 10 mg tablet 10 mg PO QAM Eliquis 2.5 mg Tablet 2.5 mg PO BID Qty: 60 0RF diphenoxylate-atropine 2.5-0.025 mg Tablet 1 tab PO QID PRN (Reason: Diarrhea) Referrals Referrals: Telma Jacobs CRNP [Primary Care Provider] -
--- NOTE | 2023-01-23 13:36 | XRay Report ---
SINGLE VIEW CHEST CLINICAL HISTORY: Dyspnea FINDINGS: An AP, portable, upright chest radiograph is compared to study dated 11/29/2022. The examina tion is degraded by portable technique and apical lordotic positioning. A 2-lead cardiac pacemaker is unchanged in position. The heart is enlarged. There is pulmonary vascular congestion and mild inters titial edema. There is mild elevation of the right hemidiaphragm with bibasilar atelectasis. No large pleural effusion or pneumothorax is seen. The skeletal structures are osteopenic. The bony thorax is grossly intact. IMPRESSION: Cardiomegaly and cardiac pacemaker with evidence of congestive failure and mild pulmonary edema. Radiographic follow-up to resolution is recommended. ACT 112: Negative or not required by law. Electronically signed by: Shahram Hastings M.D. 01/23/2023 1:34 PM
[2023-01-23 13:53] LABS: Basophils # (auto) 0.04 K/uL (0-0.2); Basophils % (auto) 0.5 %; Eosinophils % (auto) 2.7 %; Hematocrit (blood only) 37.8 % (42.0-52.0); Hemoglobin 12.8 g/dl (14.0-18.0); Immature Granulocytes # (auto) 0.02 K/uL (0.01-0.20); Immature Granulocytes % (auto) 0.3 %; Lymphocytes # (auto) 1.06 K/uL (1.2-3.4); Lymphocytes % (auto) 14.1 %; Mean Corpuscular Hgb Conc 33.9 g/dL (32.0-36.0); Mean Corpuscular Volume 100.3 fL (80.0-100.0); Mean Platelet Volume 12.4 fL (9.4-12.4); Monocytes # (auto) 0.89 K/uL (0.11-0.59); Monocytes % (auto) 11.9 %; Neutrophils % (auto) 70.5 %; Platelet Count 164 K/uL (130-400); RDW Coefficient of Variation 14.4 % (11.5-14.5); RDW Standard Deviation 53.4 fL (36.4-46.3); Red Blood Count 3.77 M/uL (4.70-6.10); White Blood Count 7.51 K/ul (4.8-10.8)
[2023-01-23 14:03] LABS: Albumin Globulin Ratio 2.4 (0.9-2); Albumin Level 3.9 gm/dl (3.4-5.0); BUN Creatinine Ratio 11.7 (10-20); Calcium 7.9 mg/dl (8.6-10.3); Creatinine Clr Calc Pharmacy 57.8 ml/min; Est GFR (Non-African American) 51.8 ml/min; Globulin 1.6 gm/dl (2.5-4.0); Potassium 3.5 mmol/L (3.5-5.1); Total Protein 5.5 gm/dl (6.0-8.3)
[2023-01-23 14:09] LABS: Troponin I High Sensitivity 11.7 pg/ml (0-20)
[2023-01-23 14:15] LABS: Base Excess VBG 3.8 mEq/L; HCO3 VBG 31 mmol/L; Oxygen Saturation VBG 83.5 %; PCO2 VBG 56 mmHg (38-50); PO2 VBG 54 mmHg; pH VBG 7.35 (7.36-7.41)
[2023-01-23] MEDS ORDERED: OPTIRAY 320 100ml IV ONE (14:38)
[2023-01-23] MEDS ORDERED: FUROSEMIDE 40 MG/4 ML VIAL IV ONE (14:59)
--- NOTE | 2023-01-23 15:04 | CT Scan Report ---
CT SCAN OF THE ABDOMEN AND PELVIS WITH IV CONTRAST CLINICAL HISTORY: Upper abdominal pain. COMPARISON STUDY: Abdominal CT dated 10/29/2020. TECHNIQUE: Following the IV administration of 92 cc of Optiray 320, CT scan of the abdomen and pelvi s is performed from the lung bases to the proximal femora. Images are reviewed in the axial, sagittal , and coronal planes. IV contrast was administered without complication. A dose lowering technique wa s utilized adhering to the principles of ALARA. CT DOSE: 1507.39 mGy.cm FINDINGS: Lung bases: The heart is enlarged and without pericardial effusion. The coronary arteries are densely calcified. Pacemaker leads are in place. There is bibasilar scarring/atelectasis. There is no airspa ce consolidation. Trace pleural effusions are noted. There are punctate calcified granulomas. Calcifi cation containing mediastinal lymph nodes are partially imaged. Gynecomastia is noted. Liver: The contrast-enhanced liver is normal in size, contour, and attenuation. There is no intrahepa tic biliary ductal dilatation. The hepatic veins and portal veins are patent. Gallbladder: Surgically absent noting clips in the gallbladder fossa. Spleen: Normal in size and attenuation. Pancreas: Mildly atrophic and grossly unremarkable. Adrenal glands: Unremarkable. Kidneys: The contrast enhanced kidneys are atrophic and without hydronephrosis. The kidneys enhance s ymmetrically. An 18 mm complex cyst is again seen in the left upper pole. Abdominal vasculature: The abdominal aorta is normal in course and caliber noting moderate atheroscle rotic calcification. Bowel: Postsurgical change is seen involving the right colon with ileocolic anastomosis. No bowel obs truction is identified. The appendix is not identified and reported surgically absent. Peritoneum: There is no intraperitoneal free air or abdominal ascites. Lymphadenopathy: There are mildly enlarged right iliac chain lymph nodes. The largest measures 1.8 cm in short axis. These are similar to the 2020 examination and of indeterminate significance. No addit ional pathologically enlarged lymph nodes are seen in the abdomen or pelvis. Pelvic viscera: Evaluation of the pelvis is significantly degraded by streak artifact from bilateral hip arthroplasties. The prostate gland is enlarged and heterogeneous noting median lobe hypertrophy. The bladder wall is thickened/trabeculated indicating chronic outlet obstruction. A 14 mm bladder div erticulum seen on the left. There is an 11 mm calculus within the bladder lumen. There are small bila teral fat-containing groin hernias. Skeletal structures: The skeletal structures are osteopenic. There is moderate to advanced lumbosacra l spondylosis. No lytic or blastic lesions are seen. Bilateral hip arthroplasties are in place. Degen erative change is noted in the sacroiliac joints. IMPRESSION: 1. No acute infectious or inflammatory findings are identified in the abdomen or pelvis. 2. Prostatomegaly with evidence of chronic bladder outlet obstruction. 3. There is a large calculus in the bladder lumen. 4. Mildly enlarged right iliac chain nodes are pathologically indeterminant and unchanged from 2020. 5. Cardiomegaly and trace pleural effusions. 6. Additional findings as above. ACT 112: Negative or not required by law. Electronically signed by: Shahram Hastings M.D. 01/23/2023 3:02 PM
[2023-01-23 15:09] LABS: Appearance Urine Clear (Clear); Bilirubin Urine Negative (Negative); Blood Urine Negative (Negative); Color Urine Yellow; Glucose Urine UA Negative (Negative); Ketones Urine Negative (Negative); Leukocyte Esterase Urine Negative (Negative); Nitrite Urine Negative (Negative); Protein Urine Negative (Negative); Specific Gravity Urine 1.011 (1.000-1.030); Urobilinogen Urine Negative (Negative)
--- NOTE | 2023-01-23 15:41 | History & Physical Report ---
Date of Service January 23, 2023 Assessment & Plan (1) Acute on chronic diastolic heart failure with preserved ejection fraction: Plan: progressive dyspnea over the past 2 weeks refractory to Lasix 40mg PO, new epleronone and new Toprol 37.5mg. Patient denies any change in weight and the record supports this. Pt denies chest pain. HS trop is negative and EKG with no evidence of acute ischemia. ACS less likely responsible for presentation. Good diet reported that is low in salt and processed foods. CXR with fluid overload. Given Lasix 40mg IV in the ER. Cont Lasix IV daily and adjust per cardiology recommendations. Strict i/os and patient prefers to avoid fowler catheter at this time. Low salt diet. Daily standing weights. Defer repeat echo to cardiology if they feel this is needed. Last was in November 2022. Monitor on telemetry. Jardiance may be considered this admission with heart failure as an indication. (2) Hypoxia: Plan: 2/2 fluid overload. Cont Lasix as noted above. (3) Obstructive sleep apnea on CPAP: Plan: chronic, home CPAP (4) ASCVD (arteriosclerotic cardiovascular disease): Plan: chronic, stable. Cont medical management with aspirin, lipitor, Toprol XL. Not on ACEI/ARB possibly related to kidney disease (5) Atrial fibrillation: Plan: chronic, rate controlled with Toprol and takes eliquis. Cont both (6) CKD (chronic kidney disease), stage III: Plan: chronic, at baseline with creat 1.3 . Renally dose medications as needed and avoid contrast or other nephrotoxic substances. (7) Monoclonal paraproteinemia: Plan: chronic, cont per outpatient physician (8) Anemia: Plan: chronic, mild. Around his baseline. (9) Major depression: Plan: chronic, stable. Cont citalopram per home regimen. Lives with daughter. (10) BPH (benign prostatic hyperplasia): Plan: chronic, seen on imaging today also wtih a bladder calculous. Cont terazosin per outpatient regimen. Declined fowler. Ordered scheduled bladder scans to ensure he is effectively diuresing without evidence of urinary retention. (11) Morbid (severe) obesity due to excess calories: Plan: weight loss recommended. May need to consider additional weight loss medications as outpatient. Would discuss further with his PCP. Apixaban Full Code as confirmed with he and his daughter on admission. Dispo- to [facility]. DO Sanjay Florian Hospitalist History of Present Illness Chief Complaint: Weakness Primary Care Provider: ASHER Eddy 82-year-old man recently admitted in November 2022 for acute on chronic heart failure presents again today with shortness of breath. He has a history of symptomatic atrial fibrillation with rapid ventricular response as well as nonobstructive CAD by May 2010 catheterization [facility] chronic left bundle branch block, chronic diastolic congestive heart failure secondary to hypertension, history of pericardial effusion, asymptomatic ventricular ectopy, paroxysmal A-fib diagnosed May 2021 status post BENJIE guided DC cardioversion at [facility], tachybradycardia syndrome status post dual chamber left bundle pacer placed June 2021, bilateral internal carotid artery disease, dyslipidemia, stage III CKD, lambda light chain multiple myeloma, NAHEED treated with CPAP, obesity, depression. After last hospitalization spironolactone was stopped by [facility] nephrology due to gynecomastia. Lasix was started at that discharge. He recently followed up with cardiology 3 days ago in the office reporting increased shortness of breath over the last 2 weeks with dizziness/lightheadedness. Furosemide 40 mg daily was continued, eplerenone 12.5 mg daily was started and metoprolol tartrate 25 mg twice daily was adjusted to metoprolol succinate at 37.5 mg twice daily. Today he presents with increased shortness of breath and lightheadedness. He has been taking his new medications above. He denies any weight gain and is oxygenating 98% on 4LPM via nasal canula without respiratory distress at rest. CXR with pulmonary edema and lungs are clear to auscultation on exam. No peripheral edema. Patient reports taking his weight every day without seeing much change 280-283lbs at baseline. Daughter is with him and states she cooks fresh food for him and he has cut out junk food. Low salt diet. He reports that he did feel better since last hospital discharge and has been compliant with taking Lasix diuretic. DEnies chest pain, cough or other symptoms today. At baseline he can walk 30ft without stopping and can walk up a flight of stairs, a requirement for him every night to get to his bedroom. Allergies Allergy/AdvReac Type Severity Reaction Status Date / Time covid 19 vaccine, pfizer AdvReac Unknown probable Uncoded 12/26/22 15:20 reaction too: throat swelling Home Medications Medication Instructions Recorded Confirmed Type allopurinol 300 mg tablet 300 mg PO QAM 04/30/18 01/23/23 History atorvastatin 10 mg tablet 5 mg PO QAM 04/30/18 01/23/23 History cholecalciferol (vitamin D3) 50 2,000 unit PO QAM 04/30/18 01/23/23 History mcg (2,000 unit) capsule (Vitamin D3) citalopram 20 mg tablet (Celexa) 40 mg PO QAM 04/30/18 01/23/23 History hydralazine 50 mg tablet 25 mg PO TID 04/30/18 01/23/23 History omeprazole 40 mg capsule,delayed 40 mg PO DAILY 04/30/18 01/23/23 History release terazosin 5 mg capsule 5 mg PO HS 04/30/18 01/23/23 History aspirin 81 mg tablet,delayed 81 mg PO QAM 03/10/20 01/23/23 History release montelukast 10 mg tablet 10 mg PO QAM 05/07/21 01/23/23 History apixaban 2.5 mg tablet (Eliquis) 2.5 mg PO BID #60 tabs 07/13/21 01/23/23 Rx diphenoxylate-atropine 2.5 1 tab PO QID PRN Diarrhea 07/10/22 01/23/23 History mg-0.025 mg tablet potassium chloride 20 mEq 20 meq PO DAILY 11/29/22 01/23/23 History tablet,extended release furosemide 40 mg tablet 40 mg PO QAM #30 tabs 12/01/22 01/23/23 Rx magnesium oxide 400 mg PO BID #60 caps 12/01/22 01/23/23 Rx calcium carbonate 600 mg calcium 1,500 mg PO BID 01/23/23 01/23/23 History (1,500 mg) tablet cyanocobalamin (vitamin B-12) 1,000 mcg PO DAILY 01/23/23 01/23/23 History 1,000 mcg tablet eplerenone 25 mg tablet 12.5 mg PO DAILY 01/23/23 01/23/23 History hydrocortisone acetate 25 mg 25 mg ND HS PRN Hemorrhoids 01/23/23 01/23/23 History rectal suppository levothyroxine 50 mcg tablet 50 mcg PO DAILYBB 01/23/23 01/23/23 History metoprolol succinate 25 mg 37.5 mg PO DAILY 01/23/23 01/23/23 History tablet,extended release 24 hr (Toprol XL) triamcinolone acetonide 0.1 % 1 applic topical BID 01/23/23 01/23/23 History topical cream Past Med/Surg History Medical History 2019 novel coronavirus-infected pneumonia (NCIP) ? HX Acute on chronic diastolic heart failure with preserved ejection fraction Anxiety and depression Atrial fibrillation with rapid ventricular response hx cardioversion...unsuccessful pacemaker placed jun 2021 BPH without obstruction/lower urinary tract symptoms CAD (coronary artery disease) Nonobstructive per cardiac cath 05/2010 Carpal tunnel syndrome Chronic diarrhea WORSENING...REASON FOR UPCOMING PROCEDURES Chronic diastolic CHF (congestive heart failure) Chronic sinusitis CKD (chronic kidney disease), stage III Diarrhea DVT prophylaxis Elevated troponin I level Escherichia coli infection HX GERD (gastroesophageal reflux disease) Gout hx History of DVT (deep vein thrombosis) History of paroxysmal supraventricular tachycardia ? HX History of pulmonary embolism Hyperlipidemia Hypertension Hypothyroidism Hypoxia Hypoxia Klebsiella infection HX Lambda light chain myeloma LBBB (left bundle branch block) ? HX Multiple myeloma dx 4 yr ago...current chemo tx monthly Neuralgia ON SIDE OF FACE Nonobstructive atherosclerosis of coronary artery By 05/2010 catheterization Obesity Obstructive sleep apnea on CPAP Pneumonia due to COVID-19 virus Prolonged QT interval ? HX Recurrent Clostridioides difficile infection Restless leg syndrome SOB (shortness of breath) SOB ON EXERTION...CT scan done 1-1.5 mon ago [facility]...form of blood clot and fluid ? extent , some kind of scarring - f/u with lung specialist - appointment not yet made Thrombocytopenia Thyroid disease Surgical History H/O sinus surgery unknown History of appendectomy History of bilateral knee arthroplasty History of cardiac cath ? 2009 - unable to verify - no known hx stent(s) History of cataract surgery RT/LEFT History of colonoscopy History of esophagogastroduodenoscopy (EGD) History of pacemaker jun 2021/? type/recent check unknown details History of revision of total knee arthroplasty ? side...d/t infection History of thoracentesis July [address] Jeffries. No bacterial growth or malignancy Pleurx catheter placed July 2019. Removed September 2019 History of tooth extraction History of total right hip arthroplasty Hx of cholecystectomy Status post total hip replacement, left Family History Father Heart disease Mother Diabetes Hypertension Brother Family hx of colon cancer Brother Family hx of colon cancer Social History Smoking Status: Never smoker Second Hand Exposure: No; Do You Dip or Chew Tobacco: No; Hx Alcohol Use: No Hx Substance Use: No Preferred Language: Vietnamese Communication Ability: Effective Communication Ability Comment: PT DAUGHTER SHADY DAY, SIGNS CONSENTS (PT LIMITED COMPREHENSION) Stitch Welder Required: No Beliefs That Will Affect Care: None marital status: Current Living Situation: Spouse Current Living Situation Comment: AND DAUGHTER How many Children do You have: 2 Feels Safe at Home: Yes Assistive Devices: Cane and Walker Review of Systems Review of Systems: All systems were reviewed and negative except as indicated on HPI above. Physical Exam Physical Exam: CONSTITUTIONAL: morbidly obese, vitals as above, generally well-appearing, NAD EYES: EOMI bilaterally, PERRL, normal conjunctivae, no scleral icterus ENT: external ear and nose normal, MMM NECK: trachea midline RESPIRATORY: clear to auscultation bilaterally, no crackles, rales or wheezes, normal respiratory effort, 4LPM in place. CARDIOVASCULAR: heart sounds are distant and muffled, regular rate and rhythm, S1 and 2 heard without murmurs, gallops or rubs, no JVD, no peripheral edema CHEST: inspection of chest was normal GASTROINTESTINAL: soft, nontender, ND, no guarding MUSCULOSKELETAL: strength 5/5 throughout, head is normocephalic and atraumatic SKIN: warm and dry NEUROLOGIC: CN 2-12 grossly intact, no sensory deficit, normal cognition, normal speech, no tremor PSYCHIATRIC: alert cooperative and oriented to person, place and time. Euthymic mood, makes good eye contact, language grossly intact, recent and remote memory grossly intact. Results & Data Results & Data Vital Signs (Past 12 Hours) Vital Signs Temp Pulse Pulse Resp BP BP Pulse Ox 01/23/23 14:58 60 20 130/98 98 01/23/23 13:30 64 18 99 01/23/23 13:30 102/69 01/23/23 13:00 61 21 98 01/23/23 13:00 131/81 01/23/23 12:30 60 24 97 01/23/23 12:30 121/71 01/23/23 12:12 76 29 H 01/23/23 12:12 125/72 01/23/23 13:04 01/23/23 12:21 75 01/23/23 12:16 85 L 01/23/23 12:11 36.9 C 74 18 125/72 85 L O2 Del Method O2 Flow Rate 01/23/23 14:58 Nasal Cannula 4 01/23/23 13:30 4 01/23/23 13:30 01/23/23 13:00 6 01/23/23 13:00 01/23/23 12:30 6 01/23/23 12:30 01/23/23 12:12 01/23/23 12:12 01/23/23 13:04 Room Air 01/23/23 12:21 01/23/23 12:16 Nasal Cannula 0 01/23/23 12:11 Room Air Laboratory Results Short CBC 01/23/23 Range/Units 12:15 WBC 7.51 (4.8-10.8) K/ul Hgb 12.8 L (14.0-18.0) g/dl Hct 37.8 L (42.0-52.0) % Plt Count 164 (130-400) K/uL BMP 01/23/23 12:15 Sodium 142 Potassium 3.5 Chloride 104 Carbon Dioxide 32 BUN 15 Creatinine 1.28 Glucose 104 H Calcium 7.9 L Liver Function 01/23/23 Range/Units 12:15 Total Bilirubin 1.0 (0.2-1.0) mg/dl AST 17 (13-39) U/L ALT 14 (7-52) U/L Alkaline Phosphatase 55 (34-104) U/L Albumin 3.9 (3.4-5.0) gm/dl Urine 01/23/23 Range/Units 14:23 Urine Color Yellow Urine Appearance Clear (Clear) Urine pH 5.0 (4.5-7.5) Ur Specific [place] 1.011 (1.000-1.030) Urine Protein Negative (Negative) Urine Glucose (UA) Negative (Negative) Diagnostic Findings Chest X-Ray 01/23/23 13:04 SINGLE VIEW CHEST CLINICAL HISTORY: Dyspnea FINDINGS: An AP, portable, upright chest radiograph is compared to study dated 11/29/2022. The examination is degraded by portable technique and apical lordotic positioning. A 2-lead cardiac pacemaker is unchanged in position. The heart is enlarged. There is pulmonary vascular congestion and mild interstitial edema. There is mild elevation of the right hemidiaphragm with bibasilar atelectasis. No large pleural effusion or pneumothorax is seen. The skeletal structures are osteopenic. The bony thorax is grossly intact. IMPRESSION: Cardiomegaly and cardiac pacemaker with evidence of congestive failure and mild pulmonary edema. Radiographic follow-up to resolution is recommended. ACT 112: Negative or not required by law. Electronically signed by: Shahram Hastings M.D. 01/23/2023 1:34 PM Abdomen/Pelvis CT 01/23/23 13:17 CT SCAN OF THE ABDOMEN AND PELVIS WITH IV CONTRAST CLINICAL HISTORY: Upper abdominal pain. COMPARISON STUDY: Abdominal CT dated 10/29/2020. TECHNIQUE: Following the IV administration of 92 cc of Optiray 320, CT scan of the abdomen and pelvis is performed from the lung bases to the proximal femora. Images are reviewed in the axial, sagittal, and coronal planes. IV contrast was administered without complication. A dose lowering technique was utilized adhering to the principles of ALARA. CT DOSE: 1507.39 mGy.cm FINDINGS: Lung bases: The heart is enlarged and without pericardial effusion. The coronary arteries are densely calcified. Pacemaker leads are in place. There is bibasilar scarring/atelectasis. There is no airspace consolidation. Trace pleural effusions are noted. There are punctate calcified granulomas. Calcification containing mediastinal lymph nodes are partially imaged. Gynecomastia is noted. Liver: The contrast-enhanced liver is normal in size, contour, and attenuation. There is no intrahepatic biliary ductal dilatation. The hepatic veins and portal veins are patent. Gallbladder: Surgically absent noting clips in the gallbladder fossa. Spleen: Normal in size and attenuation. Pancreas: Mildly atrophic and grossly unremarkable. Adrenal glands: Unremarkable. Kidneys: The contrast enhanced kidneys are atrophic and without hydronephrosis. The kidneys enhance symmetrically. An 18 mm complex cyst is again seen in the left upper pole. Abdominal vasculature: The abdominal aorta is normal in course and caliber noting moderate atherosclerotic calcification. Bowel: Postsurgical change is seen involving the right colon with ileocolic anastomosis. No bowel obstruction is identified. The appendix is not identified and reported surgically absent. Peritoneum: There is no intraperitoneal free air or abdominal ascites. Lymphadenopathy: There are mildly enlarged right iliac chain lymph nodes. The largest measures 1.8 cm in short axis. These are similar to the 2021 examination and of indeterminate significance. No additional pathologically enlarged lymph nodes are seen in the abdomen or pelvis. Pelvic viscera: Evaluation of the pelvis is significantly degraded by streak artifact from bilateral hip arthroplasties. The prostate gland is enlarged and heterogeneous noting median lobe hypertrophy. The bladder wall is thickened/trabeculated indicating chronic outlet obstruction. A 14 mm bladder diverticulum seen on the left. There is an 11 mm calculus within the bladder lumen. There are small bilateral fat-containing groin hernias. Skeletal structures: The skeletal structures are osteopenic. There is moderate to advanced lumbosacral spondylosis. No lytic or blastic lesions are seen. Bilateral hip arthroplasties are in place. Degenerative change is noted in the sacroiliac joints. IMPRESSION: 1. No acute infectious or inflammatory findings are identified in the abdomen or pelvis. 2. Prostatomegaly with evidence of chronic bladder outlet obstruction. 3. There is a large calculus in the bladder lumen. 4. Mildly enlarged right iliac chain nodes are pathologically indeterminant and unchanged from 202. 5. Cardiomegaly and trace pleural effusions. 6. Additional findings as above. ACT 112: Negative or not required by law. Electronically signed by: Shahram Hastings M.D. 01/23/2023 3:02 PM
[2023-01-23 15:48] LABS: Prothrombin Time 11.1 Seconds (9.0-12.0)
[2023-01-23 15:49] LABS: Adenovirus PCR Not Detected (NotDetected); Bordetella parapertussis PCR Not Detected (NotDetected); Bordetella pertussis PCR Not Detected (NotDetected); Chlamydia pneumoniae PCR Not Detected (NotDetected); Coronavirus 229E PCR Not Detected (NotDetected); Coronavirus CoV-2 (COVID19)PCR Not Detected (NotDetected); Coronavirus HKU1 PCR Not Detected (NotDetected); Coronavirus NL63 PCR Not Detected (NotDetected); Coronavirus OC43PCR Not Detected (NotDetected); Human Metapneumovirus PCR Not Detected (NotDetected); Influenza A PCR Not Detected (NotDetected); Influenza B PCR Not Detected (NotDetected); Mycoplasma pneumoniae PCR Not Detected (NotDetected); Parainfluenza Virus 1 PCR Not Detected (NotDetected); Parainfluenza Virus 2 PCR Not Detected (NotDetected); Parainfluenza Virus 3 PCR Not Detected (NotDetected); Parainfluenza Virus 4 PCR Not Detected (NotDetected); Respiratory Syncytial VirusPCR Not Detected (NotDetected); Rhinovirus/Enterovirus PCR Not Detected (NotDetected)
--- NOTE | 2023-01-23 16:15 | Electrocardiogram Report ---
Test Reason : Blood Pressure : / mmHG Vent. Rate : 077 BPM Atrial Rate : 077 BPM P-R Int : 330 ms QRS Dur : 146 ms QT Int : 460 ms P-R-T Axes : 084 -41 118 degrees QTc Int : 520 ms Atrial-paced rhythm with prolonged AV conduction and PVCs Left axis deviation Left bundle branch block Abnormal ECG When compared with ECG of 30-NOV-2022 06:14, Previous ECG has undetermined rhythm, needs review Confirmed by Wade London ([id number]) on 01/23/2023 4:15:22 PM Referred By: Confirmed By:Peter London
[2023-01-23] MEDS ORDERED: ACETAMINOPHEN 325 MG TAB PO PRN (18:23)
[2023-01-23] MEDS ORDERED: POLYETHYLENE (MIRALAX) 17 GM PACK PO PRN (18:23)
[2023-01-23] MEDS: TERAZOSIN HCL 5 MG CAP PO SCH (20:43)
[2023-01-23] MEDS: APIXABAN 2.5 MG TAB PO SCH (20:44)
[2023-01-23] MEDS: MAGNESIUM OXIDE 400 MG TAB PO SCH (20:44)
[2023-01-24] MEDS: LEVOTHYROXINE SODIUM 50 MCG TABLET PO SCH (05:48)
[2023-01-24 07:27] LABS: BUN Creatinine Ratio 10.7 (10-20); Calcium 7.8 mg/dl (8.6-10.3); Creatinine Clr Calc Pharmacy 45.8 ml/min; Est GFR (African American) 46.2 ml/min; Est GFR (Non-African American) 39.8 ml/min; Magnesium 1.7 mg/dl (1.7-2.4); Potassium 3.5 mmol/L (3.5-5.1)
[2023-01-24 07:31] LABS: Hematocrit (blood only) 36.5 % (42.0-52.0); Hemoglobin 12.6 g/dl (14.0-18.0); Mean Corpuscular Hemoglobin 34.8 pg (25.0-34.0); Mean Corpuscular Hgb Conc 34.5 g/dL (32.0-36.0); Mean Corpuscular Volume 100.8 fL (80.0-100.0); Mean Platelet Volume 11.7 fL (9.4-12.4); Platelet Count 152 K/uL (130-400); RDW Coefficient of Variation 14.5 % (11.5-14.5); RDW Standard Deviation 53.1 fL (36.4-46.3); Red Blood Count 3.62 M/uL (4.70-6.10); White Blood Count 6.83 K/ul (4.8-10.8)
[2023-01-24] MEDS: APIXABAN 2.5 MG TAB PO SCH ×2 (08:20→20:53)
[2023-01-24] MEDS: MAGNESIUM OXIDE 400 MG TAB PO SCH ×2 (08:20→20:53)
[2023-01-24] MEDS: allopurinoL 300 MG TAB PO SCH (08:20)
[2023-01-24] MEDS: CITALOPRAM 40 MG TAB PO SCH (08:20)
[2023-01-24] MEDS: ATORVASTATIN 10 MG TAB PO SCH (08:20)
[2023-01-24] MEDS: ASPIRIN 81 MG ECTAB PO SCH (08:21)
[2023-01-24] MEDS: FUROSEMIDE 40 MG/4 ML VIAL IV SCH ×2 (08:21→16:18)
[2023-01-24] MEDS: PANTOprazole 40 MG TAB PO SCH (08:21)
[2023-01-24] MEDS ORDERED: METOPROLOL SUCC 25MG EXT REL TAB PO SCH (09:00)
--- NOTE | 2023-01-24 12:06 | Electrocardiogram Report ---
Test Reason : Blood Pressure : / mmHG Vent. Rate : 069 BPM Atrial Rate : 062 BPM P-R Int : 318 ms QRS Dur : 150 ms QT Int : 480 ms P-R-T Axes : 000 -39 125 degrees QTc Int : 514 ms Atrial-paced rhythm with prolonged AV conduction with frequent Premature ventricular complexes Left bundle branch block Abnormal ECG When compared with ECG of 23-JAN-2023 12:10, No significant change was found Confirmed by Akash Freire ([id number]) on 01/24/2023 12:06:11 PM Referred By: REFERRED SELF Confirmed By:Akash Freire
--- NOTE | 2023-01-24 14:51 | Cardiology Progress Note ---
Date of Service January 24, 2023 Assessment & Plan (1) Acute on chronic diastolic heart failure with preserved ejection fraction: (2) Confusion: (3) LBBB (left bundle branch block): Admission and Anticipated Discharge Date Admission Date: January 23, 2023 Supervising Physician Co-Signing Physician Notes Patient somewhat improved today though still confused when awakening from sleep. Suspect nocturnal hypoxia, hypoventilation contributing Continue IV furosemide additional dose this evening then hold Continue eplerenone if received Outpatient medications noted recent increase metoprolol succinate to 37.5 mg twice per day we will reduce back to 25 mg twice per day for time no arrhythmias on telemetry Recommend nocturnal oximetry suspect oxygen requirements present Subjective Patient was seen and examined, chart, medications, telemetry reviewed Feels somewhat improved today though sleeping "lots" No chest pain or worsening shortness of breath no edema. No fevers or chills Physical Exam Constitutional: + morbidly obese; no acute distress Eyes: PERRL, conjunctivae normal, anicteric sclerae ENMT: external ear and nose normal, oropharynx normal Neck: trachea midline, no thyromegaly + thick neck Respiratory: Auscultation: + diminished lung sounds Cardiovascular: Rate/Rhythm: regular rate and regular rhythm (Paced) Results & Data Vital Signs (Past 12 Hours) Vital Signs Temp Pulse Resp BP Pulse Ox O2 Del Method O2 Flow Rate 01/24/23 11:05 36.8 C 54 L 18 126/74 126 H Nasal Cannula 3 01/24/23 08:00 Room Air 01/24/23 07:22 36.9 C 57 L 18 119/55 L 95 Nasal Cannula 3 01/24/23 03:15 Nasal Cannula 3 01/24/23 02:55 37 C 65 20 132/58 L 95 Nasal Cannula 3 Laboratory Results Laboratory Results - last 24 hr 01/23/23 01/23/23 01/23/23 14:23 14:44 14:58 WBC RBC Hgb Hct MCV MCH MCHC RDW Std Deviation RDW Coeff of [place] Plt Count MPV PT 11.1 INR 1.0 Sodium Potassium Chloride Carbon Dioxide Anion Gap BUN Creatinine Est Cr Clr Drug Dosing Est GFR ( Amer) Est GFR (Non-Af Amer) BUN/Creatinine Ratio Glucose POC Glucose Calcium Magnesium Urine Color Yellow Urine Appearance Clear Urine pH 5.0 Ur Specific [place] 1.011 Urine Protein Negative Urine Glucose (UA) Negative Urine Ketones Negative Urine Blood Negative Urine Nitrite Negative Urine Bilirubin Negative Urine Urobilinogen Negative Ur Leukocyte Esterase Negative Adenovirus (PCR) Not Detected B. pertussis DNA (PCR) Not Detected B.parapertussis DNA PCR Not Detected C. pneumoniae DNA (PCR) Not Detected Coronavirus OC43 (PCR) Not Detected Coronavirus HKU1 (PCR) Not Detected Coronavirus 229E (PCR) Not Detected SARS-CoV-2 (PCR) Not Detected Coronavirus NL63 (PCR) Not Detected Human Metapneumovir PCR Not Detected Influenza Type A (PCR) Not Detected Influenza Type B (PCR) Not Detected M. pneumoniae (PCR) Not Detected Parainfluenza 1 (PCR) Not Detected Parainfluenza 2 (PCR) Not Detected Parainfluenza 3 (PCR) Not Detected Parainfluenza 4 (PCR) Not Detected RSV (PCR) Not Detected Entero/Rhino (PCR) Not Detected 01/24/23 01/24/23 01/24/23 06:44 06:44 07:20 WBC 6.83 RBC 3.62 L Hgb 12.6 L Hct 36.5 L MCV 100.8 H MCH 34.8 H MCHC 34.5 RDW Std Deviation 53.1 H RDW Coeff of [place] 14.5 Plt Count 152 MPV 11.7 PT INR Sodium 143 Potassium 3.5 Chloride 103 Carbon Dioxide 33 H Anion Gap 7 BUN 17 Creatinine 1.59 H D Est Cr Clr Drug Dosing 45.8 Est GFR ( Amer) 46.2 Est GFR (Non-Af Amer) 39.8 BUN/Creatinine Ratio 10.7 Glucose 90 POC Glucose 102 H Calcium 7.8 L Magnesium 1.7 Urine Color Urine Appearance Urine pH Ur Specific [place] Urine Protein Urine Glucose (UA) Urine Ketones Urine Blood Urine Nitrite Urine Bilirubin Urine Urobilinogen Ur Leukocyte Esterase Adenovirus (PCR) B. pertussis DNA (PCR) B.parapertussis DNA PCR C. pneumoniae DNA (PCR) Coronavirus OC43 (PCR) Coronavirus HKU1 (PCR) Coronavirus 229E (PCR) SARS-CoV-2 (PCR) Coronavirus NL63 (PCR) Human Metapneumovir PCR Influenza Type A (PCR) Influenza Type B (PCR) M. pneumoniae (PCR) Parainfluenza 1 (PCR) Parainfluenza 2 (PCR) Parainfluenza 3 (PCR) Parainfluenza 4 (PCR) RSV (PCR) Entero/Rhino (PCR)
--- NOTE | 2023-01-24 17:13 | Hospitalist Progress Note ---
Date of Service January 24, 2023 Assessment & Plan (1) Acute on chronic diastolic heart failure with preserved ejection fraction: Plan: Progressive dyspnea over the past 2 weeks refractory to Lasix 40mg PO, new epleronone and new Toprol 37.5mg. Patient denies any change in weight and the record supports this. Pt denies chest pain. HS trop is negative and EKG with no evidence of acute ischemia. ACS less likely responsible for presentation. Good diet reported that is low in salt and processed foods. CXR with fluid overload. Given Lasix 40mg IV in the ER. Strict i/os and patient prefers to avoid fowler catheter at this time. Jardiance may be considered this admission with heart failure as an indication. Appreciate cardiology input and recommendation Beta-shannon doses have been reduced to 25 mg twice daily as before We will continue with intravenous Lasix today and hold off from tomorrow We will check PRP as creatinine has been going up (2) Hypoxia: Plan: 2/2 fluid overload. Cont Lasix as noted above. Has been requiring 3 L to maintain saturation (3) Obstructive sleep apnea on CPAP: Plan: Complicating fluid overload Chronic, home CPAP (4) ASCVD (arteriosclerotic cardiovascular disease): Plan: Chronic, stable. Cont medical management with aspirin, lipitor, Toprol XL. Not on ACEI/ARB possibly related to kidney disease (5) Atrial fibrillation: Plan: Chronic, rate controlled with Toprol and takes eliquis. Cont both (6) CKD (chronic kidney disease), stage III: Plan: chronic, at baseline with creat 1.3 . Renally dose medications as needed and avoid contrast or other nephrotoxic substances. Creatinine has gone up to 1.59 from 1.28 on admission We will recheck PRP tomorrow (7) Monoclonal paraproteinemia: Plan: chronic, cont per outpatient physician If kidney functions get worse will get electrophoresis (8) Anemia: Plan: Chronic, mild. Around his baseline. (9) Major depression: Plan: Chronic, stable. Cont citalopram per home regimen. Lives with daughter. (10) BPH (benign prostatic hyperplasia): Plan: chronic, seen on imaging today also wtih a bladder calculous. Cont terazosin per outpatient regimen. Declined fowler. Ordered scheduled bladder scans to ensure he is effectively diuresing without evidence of urinary retention. (11) Morbid (severe) obesity due to excess calories: Plan: weight loss recommended. May need to consider additional weight loss medications as outpatient. Would discuss further with his PCP. Apixaban Full Code as confirmed with he and his daughter on admission. Dispo- to PCU. Admission and Anticipated Discharge Date Admission Date: January 23, 2023 Subjective 01/24/2023 The patient was seen and examined in telemetry unit He has been feeling much better with the administration of Lasix and profuse diuresis Denies any shortness of breath at rest No chest pain and her palpitation Review of Systems Review of Systems: All systems reviewed and are unremarkable except as noted below Physical Exam Physical Exam: Sitting on a chair without any acute distress Constitutional: well developed, well nourished and + obese; not ill appearing Eyes: PERRL, conjunctivae normal, anicteric sclerae ENMT: external ear and nose normal, oropharynx normal Neck: trachea midline, no thyromegaly Respiratory: no respiratory distress Auscultation: + diminished lung sounds and + crackles (Minimal crackles at the bases) Cardiovascular: Rate/Rhythm: regular rate, regular rhythm, + bradycardic and + tachycardic Heart Sounds: normal S1 and normal S2; no murmur Extremities: + edema (Trace edema bilaterally) Gastrointestinal (Abdomen): Inspection/Auscultation: + abdomen distended and normal bowel sounds Percussion/Palpation: abdomen soft; abdomen nontender Musculoskeletal: No acute arthritis involving any joint Neurologic: normal touch/pain/proprioception and moves all extremities; no focal motor deficits Psychiatric: A+Ox3, euthymic affect Lymphatic: no cervical or axillary lymphadenopathy Results & Data Results & Data Vital Signs (Past 12 Hours) Vital Signs Temp Pulse Resp BP Pulse Ox O2 Del Method O2 Flow Rate 01/24/23 11:05 36.8 C 54 L 18 126/74 96 Nasal Cannula 3 01/24/23 08:00 Room Air 01/24/23 07:22 36.9 C 57 L 18 119/55 L 95 Nasal Cannula 3 Laboratory Results Short CBC 01/24/23 Range/Units 06:44 WBC 6.83 (4.8-10.8) K/ul Hgb 12.6 L (14.0-18.0) g/dl Hct 36.5 L (42.0-52.0) % Plt Count 152 (130-400) K/uL BMP 07/21/23 06:44 Sodium 143 Potassium 3.5 Chloride 103 Carbon Dioxide 33 H BUN 17 Creatinine 1.59 H D Glucose 90 Calcium 7.8 L Medications Administered Current Inpatient Medications Acetaminophen (Acetaminophen 325 Mg Tab) 650 mg PO Q4H PRN PRN Reason: Pain or Fever Stop: 02/22/23 18:22 Allopurinol (Allopurinol 300 Mg Tab) 300 mg PO QAM [facility] Stop: 02/23/23 08:59 Last Admin: 01/24/23 08:20 Dose: 300 mg Apixaban (Apixaban 2.5 Mg Tab) 2.5 mg PO BID [facility] Stop: 02/22/23 20:59 Last Admin: 01/24/23 08:20 Dose: 2.5 mg Aspirin (Aspirin 81 Mg Ectab) 81 mg PO QAM [facility] Stop: 02/23/23 08:59 Last Admin: 01/24/23 08:21 Dose: 81 mg Atorvastatin Calcium (Atorvastatin 10 Mg Tab) [facility] [place] Stop: 02/23/23 08:59 Last Admin: 01/24/23 08:20 Dose: 5 mg Citalopram Hydrobromide (Citalopram 40 Mg Tab) 40 [facility] [place] Stop: 02/23/23 08:59 Last Admin: 01/24/23 08:20 Dose: 40 mg Eplerenone (Eplerenone) 0.5 each PO QAM [facility] Stop: 02/24/23 08:59 Furosemide (Furosemide 40 Mg/4 Ml Vial) 40 mg IV [id number] [facility] Stop: 02/23/23 08:59 Last Admin: 01/24/23 16:18 Dose: 40 mg Levothyroxine Sodium (Levothyroxine Sodium 50 Mcg Tablet) 50 mcg PO DAILYBB [facility] Stop: 02/23/23 06:29 Last Admin: 01/24/23 05:48 Dose: 50 mcg Magnesium Oxide (Magnesium Oxide 400 Mg Tab) 400 mg PO BID [facility] Stop: 02/22/23 20:59 Last Admin: 01/24/23 08:20 Dose: 400 mg Metoprolol Succinate (Metoprolol Succ 25mg Ext Rel Tab) 25 mg PO BID [facility] Stop: 02/23/23 20:59 Montelukast Sodium (Montelukast Sodium 10 Mg Tablet) 10 mg PO HS [facility] Stop: 02/23/23 20:59 Pantoprazole Sodium (Pantoprazole 40 Mg Tab) 40 mg PO DAILY [facility]; Protocol Stop: 02/23/23 08:59 Last Admin: 01/24/23 08:21 Dose: 40 mg Polyethylene Glycol (Polyethylene (Miralax) 17 Gm Pack) 17 gm PO DAILY PRN PRN Reason: Constipation Stop: 02/22/23 18:22 Terazosin HCl (Terazosin Hcl 5 Mg Cap) 5 mg PO HS [facility] Stop: 02/22/23 20:59 Last Admin: 01/23/23 20:43 Dose: 5 mg
[2023-01-24] MEDS: MONTELUKAST SODIUM 10 MG TABLET PO SCH (20:54)
[2023-01-24] MEDS: METOPROLOL SUCC 25MG EXT REL TAB PO SCH (20:54)
[2023-01-24] MEDS: TERAZOSIN HCL 5 MG CAP PO SCH (20:55)
[2023-01-25] MEDS: LEVOTHYROXINE SODIUM 50 MCG TABLET PO SCH (05:48)
[2023-01-25 07:36] LABS: Basophils # (auto) 0.05 K/uL (0-0.2); Basophils % (auto) 0.7 %; Eosinophils # (auto) 0.27 K/uL (0-0.50); Eosinophils % (auto) 3.6 %; Hematocrit (blood only) 36.8 % (42.0-52.0); Hemoglobin 12.3 g/dl (14.0-18.0); Immature Granulocytes # (auto) 0.02 K/uL (0.01-0.20); Immature Granulocytes % (auto) 0.3 %; Lymphocytes # (auto) 1.19 K/uL (1.2-3.4); Lymphocytes % (auto) 15.9 %; Mean Corpuscular Hgb Conc 33.4 g/dL (32.0-36.0); Mean Corpuscular Volume 101.7 fL (80.0-100.0); Monocytes # (auto) 0.78 K/uL (0.11-0.59); Monocytes % (auto) 10.4 %; Neutrophils # (auto) 5.19 K/uL (1.40-6.50); Neutrophils % (auto) 69.1 %; Platelet Count 160 K/uL (130-400); RDW Coefficient of Variation 14.3 % (11.5-14.5); RDW Standard Deviation 53.1 fL (36.4-46.3); Red Blood Count 3.62 M/uL (4.70-6.10)
--- NOTE | 2023-01-25 08:52 | Electrocardiogram Report ---
Test Reason : Blood Pressure : / mmHG Vent. Rate : 060 BPM Atrial Rate : 060 BPM P-R Int : 342 ms QRS Dur : 160 ms QT Int : 526 ms P-R-T Axes : 000 219 060 degrees QTc Int : 526 ms Atrial-paced rhythm with prolonged AV conduction Left bundle branch block Abnormal ECG When compared with ECG of 24-JAN-2023 05:43, Premature ventricular complexes are no longer Present Confirmed by Akash Freire [id number] on 01/25/2023 8:52:06 AM Referred By: REFERRED SELF Confirmed By:Akash Freire
[2023-01-25] MEDS: allopurinoL 300 MG TAB PO SCH (09:05)
[2023-01-25] MEDS: ASPIRIN 81 MG ECTAB PO SCH (09:05)
[2023-01-25] MEDS: APIXABAN 2.5 MG TAB PO SCH ×2 (09:05→21:14)
[2023-01-25] MEDS: ATORVASTATIN 10 MG TAB PO SCH (09:06)
[2023-01-25] MEDS: MAGNESIUM OXIDE 400 MG TAB PO SCH ×2 (09:06→21:15)
[2023-01-25] MEDS: CITALOPRAM 40 MG TAB PO SCH (09:06)
[2023-01-25] MEDS: PANTOprazole 40 MG TAB PO SCH (09:06)
[2023-01-25] MEDS: METOPROLOL SUCC 25MG EXT REL TAB PO SCH ×2 (09:07→21:16)
[2023-01-25] MEDS: EPLERENONE PO SCH (09:07)
[2023-01-25 09:10] LABS: BUN Creatinine Ratio 13.9 (10-20); Calcium 7.6 mg/dl (8.6-10.3); Creatinine Clr Calc Pharmacy 42.2 ml/min; Est GFR (African American) 41.7 ml/min; Magnesium 1.7 mg/dl (1.7-2.4); Potassium 3.4 mmol/L (3.5-5.1)
[2023-01-25] MEDS ORDERED: POTASSIUM CHLORIDE CRTAB 20 MEQ TABCR PO STA (13:46)
--- NOTE | 2023-01-25 13:47 | Cardiology Progress Note ---
Date of Service January 25, 2023 Assessment & Plan (1) Acute on chronic diastolic heart failure with preserved ejection fraction: (2) Confusion: (3) LBBB (left bundle branch block): Plan -Supplement potassium, 20 mill equivalents p.o. x1. Received furosemide 40 mg x 2 doses on 01/24/2023, currently on hold with creatinine trending up from 1.59-1.73 Continue eplerenone. Continue Eliquis 2.5 mg twice daily. Continue metoprolol succinate 25 mg twice daily. Admission and Anticipated Discharge Date Admission Date: January 23, 2023 Subjective Patient seen in cardiology follow-up. Notes presenting symptom of shortness of breath which has improved. Telemetry reveals sinus rhythm with ventricular pacing in the 60s. Physical Exam Constitutional: + morbidly obese; no acute distress Eyes: PERRL, conjunctivae normal, anicteric sclerae ENMT: external ear and nose normal, oropharynx normal Neck: trachea midline, no thyromegaly + thick neck Respiratory: Auscultation: + diminished lung sounds Cardiovascular: Rate/Rhythm: regular rate and regular rhythm (Paced) Results & Data Vital Signs (Past 12 Hours) Vital Signs Temp Pulse Pulse Resp BP Pulse Ox O2 Del Method 01/25/23 10:57 37.0 C 50 L 18 143/72 H 99 Nasal Cannula 01/25/23 11:17 Nasal Cannula 01/25/23 09:47 66 01/25/23 08:25 36.8 C 82 18 147/84 H 97 Nasal Cannula 01/25/23 03:37 36.9 C 52 L 21 108/66 97 Nasal Cannula O2 Flow Rate 01/25/23 10:57 3 01/25/23 11:17 3 01/25/23 09:47 01/25/23 08:25 01/25/23 03:37 3 Laboratory Results CBC 01/25/23 Range/Units 06:56 WBC 7.50 (4.8-10.8) K/ul RBC 3.62 L (4.70-6.10) M/uL Hgb 12.3 L (14.0-18.0) g/dl Hct 36.8 L (42.0-52.0) % Plt Count 160 (130-400) K/uL Neut # (Auto) 5.19 (1.40-6.50) K/uL Lymph # (Auto) 1.19 L (1.2-3.4) K/uL [place] # (Auto) 0.78 H (0.11-0.59) K/uL Eos # (Auto) 0.27 (0-0.50) K/uL Baso # (Auto) 0.05 (0-0.2) K/uL Comprehensive Metabolic Panel 01/25/23 Range/Units 06:56 Sodium 144 (136-145) mmol/L Potassium 3.4 L (3.5-5.1) mmol/L Chloride 101 (98-107) mmol/L Carbon Dioxide 35 H (21-32) mmol/L BUN 24 H (6-23) mg/dl Creatinine 1.73 H (0.6-1.4) mg/dl Glucose 93 (70-99(Fasting)) mg/dl Calcium 7.6 L (8.6-10.3) mg/dl Intake and Output 01/24/23 01/25/23 01/25/23 22:59 06:59 14:59 Intake Total 565 / 565 Output Total 801 / 1301 500 / 1301 50 / 50 Balance -236 / -736 -500 / -736 -50 / -50 Intake: Oral 565 / 565 Output: Urine 801 / 1301 500 / 1301 50 / 50 Other: # Unmeasured Voids 1 Weight 127.4 kg Weight Measurement Method Standing Scale
--- NOTE | 2023-01-25 15:04 | Hospitalist Progress Note ---
Date of Service January 25, 2023 Assessment & Plan (1) Acute on chronic diastolic heart failure with preserved ejection fraction: Plan: Progressive dyspnea over the past 2 weeks refractory to Lasix 40mg PO, new epleronone and new Toprol 37.5mg. Patient denies any change in weight and the record supports this. Pt denies chest pain. HS trop is negative and EKG with no evidence of acute ischemia. ACS less likely responsible for presentation. Good diet reported that is low in salt and processed foods. CXR with fluid overload. Given Lasix 40mg IV in the ER. Strict i/os and patient prefers to avoid fowler catheter at this time. Jardiance may be considered this admission with heart failure as an indication. Appreciate cardiology input and recommendation Beta-shannon doses have been reduced to 25 mg twice daily as before We will continue with intravenous Lasix today and hold off from tomorrow We will check PRP as creatinine has been going up Patient has been feeling a lot better but the creatinine is up Intravenous Lasix is on hold Monitor PRP and if creatinine is improving he will be discharged home (2) Hypoxia: Plan: 2/2 fluid overload. Cont Lasix as noted above. Has been requiring 3 L to maintain saturation (3) Obstructive sleep apnea on CPAP: Plan: Complicating fluid overload Chronic, home CPAP (4) ASCVD (arteriosclerotic cardiovascular disease): Plan: Chronic, stable. Cont medical management with aspirin, lipitor, Toprol XL. Not on ACEI/ARB possibly related to kidney disease (5) Atrial fibrillation: Plan: Chronic, rate controlled with Toprol and takes eliquis. Cont both Rate is controlled and will keep bradycardic at 50/min (6) CKD (chronic kidney disease), stage III: Plan: chronic, at baseline with creat 1.3 . Renally dose medications as needed and avoid contrast or other nephrotoxic substances. Creatinine has gone up to 1.59 from 1.28 on admission Creatinine is up at 1.73-Lasix is on hold Monitor PRP (7) Monoclonal paraproteinemia: Plan: chronic, cont per outpatient physician If kidney functions get worse will get electrophoresis (8) Anemia: Plan: Chronic, mild. Around his baseline. (9) Major depression: Plan: Chronic, stable. Cont citalopram per home regimen. Lives with daughter. (10) BPH (benign prostatic hyperplasia): Plan: chronic, seen on imaging today also wtih a bladder calculous. Cont terazosin per outpatient regimen. Declined fowler. Ordered scheduled bladder scans to ensure he is effectively diuresing without evidence of urinary retention. (11) Morbid (severe) obesity due to excess calories: Plan: weight loss recommended. May need to consider additional weight loss medications as outpatient. Would discuss further with his PCP. Apixaban Full Code as confirmed with he and his daughter on admission. Dispo- to PCU. Admission and Anticipated Discharge Date Admission Date: January 23, 2023 Subjective 01/24/2023 The patient was seen and examined in telemetry unit He has been feeling much better with the administration of Lasix and profuse diuresis Denies any shortness of breath at rest No chest pain and her palpitation 01/25/2023 The patient was seen and examined in telemetry unit He has been feeling a lot better and denies any symptoms of palpitation, chest pain or shortness of breath Review of Systems Review of Systems: All systems reviewed and are unremarkable except as noted below Physical Exam Physical Exam: Sitting on a chair without any acute distress Constitutional: well developed, well nourished and + obese; not ill appearing Eyes: PERRL, conjunctivae normal, anicteric sclerae ENMT: external ear and nose normal, oropharynx normal Neck: trachea midline, no thyromegaly Respiratory: no respiratory distress Auscultation: + diminished lung sounds and + crackles (Minimal crackles at the bases) Cardiovascular: Rate/Rhythm: regular rate, regular rhythm, + bradycardic and + tachycardic Heart Sounds: normal S1 and normal S2; no murmur Extremities: + edema (Trace edema bilaterally) Gastrointestinal (Abdomen): Inspection/Auscultation: + abdomen distended and normal bowel sounds Percussion/Palpation: abdomen soft; abdomen nontender Neurologic: normal touch/pain/proprioception and moves all extremities; no focal motor deficits Psychiatric: A+Ox3, euthymic affect Lymphatic: no cervical or axillary lymphadenopathy Results & Data Results & Data Vital Signs (Past 12 Hours) Vital Signs Temp Pulse Pulse Resp BP Pulse Ox O2 Del Method 01/25/23 10:57 37.0 C 50 L 18 143/72 H 99 Nasal Cannula 01/25/23 11:17 Nasal Cannula 01/25/23 09:47 66 01/25/23 08:25 36.8 C 82 18 147/84 H 97 Nasal Cannula 01/25/23 03:37 36.9 C 52 L 21 108/66 97 Nasal Cannula O2 Flow Rate 01/25/23 10:57 3 01/25/23 11:17 3 01/25/23 09:47 01/25/23 08:25 01/25/23 03:37 3 Laboratory Results Short CBC 01/25/23 Range/Units 06:56 WBC 7.50 (4.8-10.8) K/ul Hgb 12.3 L (14.0-18.0) g/dl Hct 36.8 L (42.0-52.0) % Plt Count 160 (130-400) K/uL BMP 01/25/23 06:56 Sodium 144 Potassium 3.4 L Chloride 101 Carbon Dioxide 35 H BUN 24 H Creatinine 1.73 H Glucose 93 Calcium 7.6 L Medications Administered Current Inpatient Medications Acetaminophen (Acetaminophen 325 Mg Tab) 650 mg PO Q4H PRN PRN Reason: Pain or Fever Stop: 02/22/23 18:22 Allopurinol ([facility] 300 Mg Tab) [facility] [place] Stop: 02/23/23 08:59 Last Admin: 01/25/23 09:05 Dose: 300 mg Apixaban (Apixaban 2.5 Mg Tab) 2.5 mg PO BID [facility] Stop: 02/22/23 20:59 Last Admin: 01/25/23 09:05 Dose: 2.5 mg Aspirin (Aspirin 81 Mg Ectab) 81 mg PO [facility] Stop: 02/23/23 08:59 Last Admin: 01/25/23 09:05 Dose: 81 mg Atorvastatin Calcium (Atorvastatin 10 Mg Tab) [facility] [place] Stop: 02/23/23 08:59 Last Admin: 01/25/23 09:06 Dose: 5 mg Citalopram Hydrobromide (Citalopram 40 Mg Tab) 40 mg PO [facility] Stop: 02/23/23 08:59 Last Admin: 01/25/23 09:06 Dose: 40 mg Eplerenone (Eplerenone) 0.5 [facility] [place] Stop: 02/24/23 08:59 Last Admin: 01/25/23 09:07 Dose: 0.5 each Furosemide (Furosemide 40 Mg/4 Ml Vial) [facility]: 02/23/23 08:59 Last Admin: 01/24/23 16:18 Dose: 40 mg Levothyroxine Sodium (Levothyroxine Sodium 50 Mcg Tablet) 50 mcg PO DAILYBB [facility] Stop: 02/23/23 06:29 Last Admin: 01/25/23 05:48 Dose: 50 mcg Magnesium Oxide (Magnesium Oxide 400 Mg Tab) 400 mg PO BID [facility] Stop: 02/22/23 20:59 Last Admin: 01/25/23 09:06 Dose: 400 mg Metoprolol Succinate (Metoprolol Succ 25mg Ext Rel Tab) 25 mg PO BID [facility] Stop: 02/23/23 20:59 Last Admin: 01/25/23 09:07 Dose: 25 mg Montelukast Sodium (Montelukast Sodium 10 Mg Tablet) 10 mg PO HS [facility] Stop: 02/23/23 20:59 Last Admin: 01/24/23 20:54 Dose: 10 mg Pantoprazole Sodium (Pantoprazole 40 Mg Tab) 40 mg PO DAILY [facility]; Protocol Stop: 02/23/23 08:59 Last Admin: 01/25/23 09:06 Dose: 40 mg Polyethylene Glycol (Polyethylene (Miralax) 17 Gm Pack) 17 gm PO DAILY PRN PRN Reason: Constipation Stop: 02/22/23 18:22 Terazosin HCl (Terazosin Hcl 5 Mg Cap) 5 mg PO HS [facility] Stop: 02/22/23 20:59 Last Admin: 01/24/23 20:55 Dose: 5 mg
[2023-01-25] MEDS: MONTELUKAST SODIUM 10 MG TABLET PO SCH (21:15)
[2023-01-25] MEDS: TERAZOSIN HCL 5 MG CAP PO SCH (21:17)
[2023-01-26] MEDS: LEVOTHYROXINE SODIUM 50 MCG TABLET PO SCH (05:56)
[2023-01-26] MEDS: APIXABAN 2.5 MG TAB PO SCH (08:45)
[2023-01-26] MEDS: ATORVASTATIN 10 MG TAB PO SCH (08:45)
[2023-01-26] MEDS: CITALOPRAM 40 MG TAB PO SCH (08:46)
[2023-01-26] MEDS: allopurinoL 300 MG TAB PO SCH (08:46)
[2023-01-26] MEDS: METOPROLOL SUCC 25MG EXT REL TAB PO SCH (08:46)
[2023-01-26] MEDS: EPLERENONE PO SCH (08:46)
[2023-01-26] MEDS: PANTOprazole 40 MG TAB PO SCH (08:46)
[2023-01-26] MEDS: MAGNESIUM OXIDE 400 MG TAB PO SCH (08:46)
[2023-01-26] MEDS: ASPIRIN 81 MG ECTAB PO SCH (08:47)
[2023-01-26 09:03] LABS: BUN Creatinine Ratio 16.8 (10-20); Calcium 7.7 mg/dl (8.6-10.3); Creatinine Clr Calc Pharmacy 49.1 ml/min; Est GFR (African American) 49.9 ml/min; Est GFR (Non-African American) 43.1 ml/min; Magnesium 1.8 mg/dl (1.7-2.4); Potassium 4.3 mmol/L (3.5-5.1)
--- NOTE | 2023-01-26 13:12 | Hospitalist Progress Note ---
Date of Service January 26, 2023 Assessment & Plan (1) Acute on chronic diastolic heart failure with preserved ejection fraction: Plan: Progressive dyspnea over the past 2 weeks refractory to Lasix 40mg PO, new epleronone and new Toprol 37.5mg. Patient denies any change in weight and the record supports this. Pt denies chest pain. HS trop is negative and EKG with no evidence of acute ischemia. ACS less likely responsible for presentation. Good diet reported that is low in salt and processed foods. CXR with fluid overload. Given Lasix 40mg IV in the ER. Strict i/os and patient prefers to avoid fowler catheter at this time. Jardiance may be considered this admission with heart failure as an indication. Appreciate cardiology input and recommendation Beta-shannon doses have been reduced to 25 mg twice daily as before We will continue with intravenous Lasix today and hold off from tomorrow We will check PRP as creatinine has been going up Patient has been feeling a lot better but the creatinine is up Intravenous Lasix is on hold Creatinine has improved a lot which is 1.49 as of 01/26/2023 and at his baseline Will have diuretics doses as per recommendation from [facility] (2) Hypoxia: Plan: 2/2 fluid overload. Cont Lasix as noted above. Has been requiring 3 L to maintain saturation Has been saturating normally on room air We will get it to a 2 step O2 saturation test prior to discharge this afternoon (3) Obstructive sleep apnea on CPAP: Plan: Complicating fluid overload Chronic, home CPAP (4) ASCVD (arteriosclerotic cardiovascular disease): Plan: Chronic, stable. Cont medical management with aspirin, lipitor, Toprol XL. Not on ACEI/ARB possibly related to kidney disease (5) Atrial fibrillation: Plan: Chronic, rate controlled with Toprol and takes eliquis. Cont both Rate is controlled and will keep bradycardic at 50/min Rate is controlled (6) CKD (chronic kidney disease), stage III: Plan: chronic, at baseline with creat 1.3 . Renally dose medications as needed and avoid contrast or other nephrotoxic substances. Creatinine has gone up to 1.59 from 1.28 on admission Creatinine is up at 1.73-Lasix is on hold Monitor PRP-creatinine 1.49 (7) Monoclonal paraproteinemia: Plan: chronic, cont per outpatient physician If kidney functions get worse will get electrophoresis Will have outpatient follow-up as usual (8) Anemia: Plan: Chronic, mild. Around his baseline. (9) Major depression: Plan: Chronic, stable. Cont citalopram per home regimen. Lives with daughter. (10) BPH (benign prostatic hyperplasia): Plan: chronic, seen on imaging today also wtih a bladder calculous. Cont terazosin per outpatient regimen. Declined fowler. Ordered scheduled bladder scans to ensure he is effectively diuresing without evidence of urinary retention. (11) Morbid (severe) obesity due to excess calories: Plan: weight loss recommended. May need to consider additional weight loss medications as outpatient. Would discuss further with his PCP. Apixaban Full Code as confirmed with he and his daughter on admission. Dispo- to PCU. Admission and Anticipated Discharge Date Admission Date: January 23, 2023 Subjective 01/24/2023 The patient was seen and examined in telemetry unit He has been feeling much better with the administration of Lasix and profuse diuresis Denies any shortness of breath at rest No chest pain and her palpitation 01/25/2023 The patient was seen and examined in telemetry unit He has been feeling a lot better and denies any symptoms of palpitation, chest pain or shortness of breath 01/26/2023 The patient was seen and examined in telemetry unit He has been feeling a lot better and the creatinine has improved Denies any shortness of breath at rest but with minimal ambulation He wants to go home today and has been saturating normally on room air Review of Systems Review of Systems: All systems reviewed and are unremarkable except as noted below Physical Exam Physical Exam: Sitting on a chair without any acute distress Constitutional: well developed, well nourished and + obese; not ill appearing Eyes: PERRL, conjunctivae normal, anicteric sclerae ENMT: external ear and nose normal, oropharynx normal Neck: trachea midline, no thyromegaly Respiratory: no respiratory distress Auscultation: + diminished lung sounds; no crackles (Minimal crackles at the bases) Cardiovascular: Rate/Rhythm: regular rate, regular rhythm, + bradycardic and + tachycardic Heart Sounds: normal S1 and normal S2; no murmur Extremities: + edema (Trace edema bilaterally) Gastrointestinal (Abdomen): Inspection/Auscultation: + abdomen distended and normal bowel sounds Percussion/Palpation: abdomen soft; abdomen nontender Neurologic: normal touch/pain/proprioception and moves all extremities; no focal motor deficits Psychiatric: A+Ox3, euthymic affect Lymphatic: no cervical or axillary lymphadenopathy Results & Data Results & Data Vital Signs (Past 12 Hours) Vital Signs Temp Pulse Pulse Resp BP BP Pulse Ox 01/26/23 10:55 36.6 C 59 L 16 160/93 H 96 01/26/23 09:38 01/26/23 09:18 83 01/26/23 08:20 36.5 C 58 L 18 127/79 99 01/26/23 04:33 36.7 C 65 23 107/56 L 97 O2 Del Method O2 Flow Rate 01/26/23 10:55 Room Air 01/26/23 09:38 Nasal Cannula 2 01/26/23 09:18 01/26/23 08:20 Nasal Cannula 3 01/26/23 04:33 Nasal Cannula 3 Laboratory Results BMP 01/26/23 08:26 Sodium 143 Potassium 4.3 D Chloride 103 Carbon Dioxide 37 H BUN 25 H Creatinine 1.49 H Glucose 171 H Calcium 7.7 L Medications Administered Current Inpatient Medications Acetaminophen (Acetaminophen 325 Mg Tab) 650 mg PO Q4H PRN PRN Reason: Pain or Fever Stop: 02/22/23 18:22 Allopurinol (Allopurinol 300 Mg Tab) 300 mg PO [facility] Stop: 02/23/23 08:59 Last Admin: 01/26/23 08:46 Dose: 300 mg Apixaban (Apixaban 2.5 Mg Tab) 2.5 mg PO BID [facility] Stop: 02/22/23 20:59 Last Admin: 01/26/23 08:45 Dose: 2.5 mg Aspirin (Aspirin 81 Mg Ectab) [facility] Stop: 02/23/23 08:59 Last Admin: 01/26/23 08:47 Dose: 81 mg Atorvastatin Calcium (Atorvastatin 10 Mg Tab) 5 [facility] Stop: 02/23/23 08:59 Last Admin: 01/26/23 08:45 Dose: 5 mg Citalopram Hydrobromide (Citalopram 40 Mg Tab) 40 mg PO [facility] Stop: 02/23/23 08:59 Last Admin: 01/26/23 08:46 Dose: 40 mg Eplerenone (Eplerenone) 0.5 each PO QAM [facility] Stop: 02/24/23 08:59 Last Admin: 01/26/23 08:46 Dose: 0.5 each Furosemide (Furosemide 40 Mg/4 Ml Vial) 40 mg IV [id number] [facility] Stop: 02/23/23 08:59 Last Admin: 01/24/23 16:18 Dose: 40 mg Levothyroxine Sodium (Levothyroxine Sodium 50 Mcg Tablet) 50 mcg PO DAILYBB [facility] Stop: 02/23/23 06:29 Last Admin: 01/26/23 05:56 Dose: 50 mcg Magnesium Oxide (Magnesium Oxide 400 Mg Tab) 400 mg PO BID [facility] Stop: 02/22/23 20:59 Last Admin: 01/26/23 08:46 Dose: 400 mg Metoprolol Succinate (Metoprolol Succ 25mg Ext Rel Tab) 25 mg PO BID [facility] Stop: 02/23/23 20:59 Last Admin: 01/26/23 08:46 Dose: 25 mg Montelukast Sodium (Montelukast Sodium 10 Mg Tablet) 10 mg PO HS [facility] Stop: 02/23/23 20:59 Last Admin: 01/25/23 21:15 Dose: 10 mg Pantoprazole Sodium (Pantoprazole 40 Mg Tab) 40 mg PO DAILY [facility]; Protocol Stop: 02/23/23 08:59 Last Admin: 01/26/23 08:46 Dose: 40 mg Polyethylene Glycol (Polyethylene (Miralax) 17 Gm Pack) 17 gm PO DAILY PRN PRN Reason: Constipation Stop: 02/22/23 18:22 Terazosin HCl (Terazosin Hcl 5 Mg Cap) 5 mg PO HS [facility] Stop: 02/22/23 20:59 Last Admin: 01/25/23 21:17 Dose: 5 mg
--- NOTE | 2023-01-26 16:04 | Cardiology Progress Note ---
Date of Service January 26, 2023 Assessment & Plan (1) Acute on chronic diastolic heart failure with preserved ejection fraction: (2) Confusion: (3) LBBB (left bundle branch block): Plan -Supplement potassium, 20 mill equivalents p.o. x1. Received furosemide 40 mg x 2 doses on 01/24/2023, with creatinine having trended from 1.59-->1.73 on 01/25/2023 and therefore furosemide was held yesterday. Creatinine is now improved to 1.49 which is his recent baseline. Continue Eliquis 2.5 mg twice daily. Continue metoprolol succinate 25 mg twice daily. Stable for discharge on prior to hospital treatment with furosemide 40 mg daily, Eplerenone 12.5 mg daily recently added as outpatient. This was chosen as he has had gynecomastia with spironolactone. Admission and Anticipated Discharge Date Admission Date: January 23, 2023 Subjective Patient seen in follow-up. Walked in the hallway earlier today using a wheelchair for support and did well. Telemetry reveals sinus rhythm with ventricular pacing in the 60s.Subjectively patient states he feels improved from a respiratory standpoint. Physical Exam Constitutional: + morbidly obese; no acute distress Eyes: PERRL, conjunctivae normal, anicteric sclerae ENMT: external ear and nose normal, oropharynx normal Neck: trachea midline, no thyromegaly + thick neck Respiratory: Auscultation: + diminished lung sounds Cardiovascular: Rate/Rhythm: regular rate and regular rhythm (Paced) Results & Data Vital Signs (Past 12 Hours) Vital Signs Temp Pulse Pulse Pulse Pulse Resp Resp 01/26/23 13:23 81 65 22 01/26/23 10:55 36.6 C 59 L 16 01/26/23 09:38 01/26/23 09:18 83 01/26/23 08:20 36.5 C 58 L 18 01/26/23 04:33 36.7 C 65 23 Resp BP BP Pulse Ox Pulse Ox Pulse Ox O2 Del Method 01/26/23 13:23 18 94 96 01/26/23 10:55 160/93 H 96 Room Air 01/26/23 09:38 Nasal Cannula 01/26/23 09:18 01/26/23 08:20 127/79 99 Nasal Cannula 01/26/23 04:33 107/56 L 97 Nasal Cannula O2 Flow Rate 01/26/23 13:23 01/26/23 10:55 01/26/23 09:38 2 01/26/23 09:18 01/26/23 08:20 3 01/26/23 04:33 3
--- NOTE | 2023-02-06 15:33 | Coding Query ---
TREATMENT RENDERED WITHOUT A DIAGNOSIS There is no need to put hypokalemia of 3.4 and and potassium supplement for that. To promote full compliance with coding requirements relating to patient care, physician participation is requested in all cases of auditing coder uncertainty. Please assist us with the question(s) below: Coding Question: The patient was treated with potassium supplements on 01/25/23 and his potassium level was 3.4 on that date. Please document the diagnosis that is being addressed by the medication/treatment. Provider Response: Thank you for your time, JOANNE Ruiz, [facility]
--- NOTE | 2023-02-12 13:29 | Discharge Summary ---
Date of Service February 12, 2023 Late documentation for 01/26/2023 Admission HPI Per Admitting Provider 82-year-old man recently admitted in November 2022 for acute on chronic heart failure presents again today with shortness of breath. He has a history of symptomatic atrial fibrillation with rapid ventricular response as well as nonobstructive CAD by May 2010 catheterization [facility] chronic left bundle branch block, chronic diastolic congestive heart failure secondary to hypertension, history of pericardial effusion, asymptomatic ventricular ectopy, paroxysmal A-fib diagnosed May 2021 status post BENJIE guided DC cardioversion at [facility], tachybradycardia syndrome status post dual chamber left bundle pacer placed June 2021, bilateral internal carotid artery disease, dyslipidemia, stage III CKD, lambda light chain multiple myeloma, NAHEED treated with CPAP, obesity, depression. After last hospitalization spironolactone was stopped by [facility] nephrology due to gynecomastia. Lasix was started at that discharge. He recently followed up with cardiology 3 days ago in the office reporting increased shortness of breath over the last 2 weeks with dizziness/lightheadedness. Furosemide 40 mg daily was continued, eplerenone 12.5 mg daily was started and metoprolol tartrate 25 mg twice daily was adjusted to metoprolol succinate at 37.5 mg twice daily. Today he presents with increased shortness of breath and lightheadedness. He has been taking his new medications above. He denies any weight gain and is oxygenating 98% on 4LPM via nasal canula without respiratory distress at rest. CXR with pulmonary edema and lungs are clear to auscultation on exam. No peripheral edema. Patient reports taking his weight every day without seeing much change 280-283lbs at baseline. Daughter is with him and states she cooks fresh food for him and he has cut out junk food. Low salt diet. He reports that he did feel better since last hospital discharge and has been compliant with taking Lasix diuretic. DEnies chest pain, cough or other symptoms today. At baseline he can walk 30ft without stopping and can walk up a flight of stairs, a requirement for him every night to get to his bedroom. Admission Exam Per Admitting Provider Physical Exam: CONSTITUTIONAL: morbidly obese, vitals as above, generally well-appearing, NAD EYES: EOMI bilaterally, PERRL, normal conjunctivae, no scleral icterus ENT: external ear and nose normal, MMM NECK: trachea midline RESPIRATORY: clear to auscultation bilaterally, no crackles, rales or wheezes, normal respiratory effort, 4LPM in place. CARDIOVASCULAR: heart sounds are distant and muffled, regular rate and rhythm, S1 and 2 heard without murmurs, gallops or rubs, no JVD, no peripheral edema CHEST: inspection of chest was normal GASTROINTESTINAL: soft, nontender, ND, no guarding MUSCULOSKELETAL: strength 5/5 throughout, head is normocephalic and atraumatic SKIN: warm and dry NEUROLOGIC: CN 2-12 grossly intact, no sensory deficit, normal cognition, normal speech, no tremor PSYCHIATRIC: alert cooperative and oriented to person, place and time. Euthymic mood, makes good eye contact, language grossly intact, recent and remote memory grossly intact. Principal Diagnosis Acute on chronic diastolic heart failure with preserved EF, hypoxia-does not req uire any oxygen, atrial fibrillation Discharge Exam Sitting on a chair without any acute distress Constitutional well developed, well nourished and + obese; not ill appearing Eyes PERRL, conjunctivae normal, anicteric sclerae ENMT external ear and nose normal, oropharynx normal Neck trachea midline, no thyromegaly Respiratory no respiratory distress Auscultation: + diminished lung sounds; no crackles (Minimal crackles at the bases) Cardiovascular Rate/Rhythm: regular rate, regular rhythm, + bradycardic and + tachycardic Heart Sounds: normal S1 and normal S2; no murmur Extremities: + edema (Trace edema bilaterally) Gastrointestinal (Abdomen) Inspection/Auscultation: + abdomen distended and normal bowel sounds Percussion/Palpation: abdomen soft; abdomen nontender Neurologic normal touch/pain/proprioception and moves all extremities; no focal motor deficits Psychiatric A+Ox3, euthymic affect Lymphatic no cervical or axillary lymphadenopathy Discharge Data Allergies Allergy/AdvReac Type Severity Reaction Status Date / Time COVID-19 vaccine, mRNA, AdvReac Unknown probable Verified 01/24/23 15:06 [id number], L reaction: [From Comirnaty (PF)] throat swelling Consultations 01/23/23 15:33 ED Decision to Admit Stat 01/23/23 18:23 Consult Cardiology Routine Ordered Studies 01/23/23 13:17 CT Abd and Pelvis [CT abd pelvis IV con only] Stat Hospital Course (1) Acute on chronic diastolic heart failure with preserved ejection fraction: Progressive dyspnea over the past 2 weeks refractory to Lasix 40mg PO, new epleronone and new Toprol 37.5mg. Patient denies any change in weight and the record supports this. Pt denies chest pain. HS trop is negative and EKG with no evidence of acute ischemia. ACS less likely responsible for presentation. Good diet reported that is low in salt and processed foods. CXR with fluid overload. Given Lasix 40mg IV in the ER. Strict i/os and patient prefers to avoid fowler catheter at this time. Jardiance may be considered this admission with heart failure as an indication. Appreciate cardiology input and recommendation Beta-shannon doses have been reduced to 25 mg twice daily as before We will continue with intravenous Lasix today and hold off from tomorrow We will check PRP as creatinine has been going up Patient has been feeling a lot better but the creatinine is up Intravenous Lasix is on hold Creatinine has improved a lot which is 1.49 as of 01/26/2023 and at his baseline Will have diuretics doses as per recommendation from flying teacher (2) Hypoxia: 2/2 fluid overload. Cont Lasix as noted above. Has been requiring 3 L to maintain saturation Has been saturating normally on room air We will get it to a 2 step O2 saturation test prior to discharge this afternoon (3) Obstructive sleep apnea on CPAP: Complicating fluid overload Chronic, home CPAP (4) ASCVD (arteriosclerotic cardiovascular disease): Chronic, stable. Cont medical management with aspirin, lipitor, Toprol XL. Not on ACEI/ARB possibly related to kidney disease (5) Atrial fibrillation: Chronic, rate controlled with Toprol and takes eliquis. Cont both Rate is controlled and will keep bradycardic at 50/min Rate is controlled (6) CKD (chronic kidney disease), stage III: chronic, at baseline with creat 1.3 . Renally dose medications as needed and avoid contrast or other nephrotoxic substances. Creatinine has gone up to 1.59 from 1.28 on admission Creatinine is up at 1.73-Lasix is on hold Monitor PRP-creatinine 1.49 (7) Monoclonal paraproteinemia: chronic, cont per outpatient physician If kidney functions get worse will get electrophoresis Will have outpatient follow-up as usual (8) Anemia: Chronic, mild. Around his baseline. (9) Major depression: Chronic, stable. Cont citalopram per home regimen. Lives with daughter. (10) BPH (benign prostatic hyperplasia): chronic, seen on imaging today also wtih a bladder calculous. Cont terazosin per outpatient regimen. Declined fowler. Ordered scheduled bladder scans to ensure he is effectively diuresing without evidence of urinary retention. (11) Morbid (severe) obesity due to excess calories: weight loss recommended. May need to consider additional weight loss medications as outpatient. Would discuss further with his PCP. Apixaban Full Code as confirmed with he and his daughter on admission. Dispo- to PCU. Total Time Total Time Spent Total Time Spent (In Minutes): 35 minutes Discharge Plan Discharge Items Patient Disposition: Home - Home Health Services Reason For Visit: ACUTE CHF Discharge Diagnosis: Acute on chronic diastolic heart failure with preserved EF, hypoxia-does not require any oxygen, atrial fibrillation Condition on Discharge: Good Activity: Resume your previous activity Non-emergency contact: Primary Care Provider Call non-emergency contact if: you have any medication questions and your symptoms worsen Follow-up/Referrals: Telma Jacobs CRNP [Primary Care Provider] - (Your doctor's office will give you a call with an appointment within 7 days) Diet: Heart Healthy and Low Sodium (2gm) Addtl Attending Provider Instructions: Please take precautions to avoid fall Take your medications as advised Please give appointment with your healthcare provider Pending Studies at Discharge: No Stand-Alone Forms: My [employer], Smoking Cessation Medications and DC Order Prescriptions: Continued aspirin 81 mg tablet,delayed release (DR/EC) 81 mg PO QAM terazosin 5 mg Capsule 5 mg PO HS atorvastatin 10 mg Tablet 5 mg PO QAM Rx Instructions: TAKE HALF A TABLET DAILY omeprazole 40 mg Capsule,Delayed Release(Dr/Ec) 40 mg PO DAILY citalopram [Celexa] 20 mg Tablet 40 mg PO QAM allopurinol 300 mg Tablet 300 mg PO QAM hydralazine 50 mg Tablet 25 mg PO TID cholecalciferol (vitamin D3) [Vitamin D3] 2,000 unit Capsule 2,000 unit PO QAM potassium chloride 20 mEq tablet extended release 20 meq PO DAILY magnesium oxide 400 mg magnesium capsule 400 mg PO BID Qty: 60 0RF cyanocobalamin (vitamin B-12) 1,000 mcg Tablet 1,000 mcg PO DAILY triamcinolone acetonide 0.1 % cream 1 applic TOPICAL BID hydrocortisone acetate 25 mg suppository 25 mg LA HS PRN (Reason: Hemorrhoids) calcium carbonate 600 mg calcium (1,500 mg) tablet 1,500 mg PO BID levothyroxine 50 mcg tablet 50 mcg PO DAILYBB eplerenone 25 mg Tablet 12.5 mg PO DAILY montelukast 10 mg tablet 10 mg PO QAM Eliquis 2.5 mg Tablet 2.5 mg PO BID Qty: 60 0RF diphenoxylate-atropine 2.5-0.025 mg Tablet 1 tab PO QID PRN (Reason: Diarrhea) Discontinued metoprolol succinate [Toprol XL] 25 mg Tablet Extended Release 24 Hr 37.5 mg PO DAILY No Action torsemide 10 mg Tablet 40 mg PO QAM 30 Days Qty: 120 2RF metoprolol succinate 25 mg Tablet Extended Release 24 Hr 37.5 mg PO BID 30 Days Qty: 60 0RF Discharge Orders: Discharge Order (Routine); Ordered 01/26/23 Ordered By: Erick Parker Discharge Order- CHF (Routine); Ordered 01/26/23 Ordered By: Erick Parker Admission Data Admit Date/Time: 01/23/23 15:57 Attending Provider: Erick Parker Admit Provider: Bere Bernard Primary Care Provider: Telma Jacobs Other Providers: Bere Bernard ; Dago Forrest ; [facility] Other Interventions: Discharge Summary Assessment (RN) Last Done: 01/26/23 16:36
== END 2023-01-26 17:36 | disposition home health service (06) | DRG 291 ==
LOC: ED 12:06 → SUATTDRO 15:57 → EDINP 15:57 → 2S 19:22

== ENCOUNTER 2023-01-28 16:44 | Inpatient (IN) ==
[2023-01-28] MEDS ORDERED: ONDANSETRON INJ 2 MG/ML 2 ML VIAL IV STA (16:55)
--- NOTE | 2023-01-28 17:06 | Emergency Department Note ---
Impression & Plan Breathlessness, Abdominal pain, Nausea ED Provider Note Provider: Ruben Vera MD DATE OF SERVICE: 01/28/2023 CHIEF COMPLAINT: Shortness of breath, abdominal pain, nausea HISTORY OF PRESENT ILLNESS: Patient is a 82-year-old gentleman history of heart failure, A-fib, CKD, and UTI presenting here today via ambulance from his home. Reports that recently hospitalized over the weekend for excess fluid. States he has not started swelling more but is feeling more short of breath and today has been having some mid abdominal discomfort that has worsened this afternoon. Reports he had some nausea as well. Maybe a bit of loose stool. Denies trauma or falls. Denies significant chest pain. No sick contacts reported. Reports he did have some basic blood work and appointments earlier today. No genital/testicular discomfort reported. Daughter later arrives and states things are fairly well this morning but had sudden onset of weakness and shakiness and shortness of breath with nausea abdominal pain this afternoon. Similar episode evidently last Friday prior to admission. PAST MEDICAL HISTORY: As noted above MEDICATIONS: Reviewed home medications and states compliance with home medications including his blood thinner and diuretic SOCIAL HISTORY: Lives at home with and daughter PHYSICAL EXAM: GENERAL: alert and oriented in no acute distress on stretcher Head: normocephalic and atraumatic EYES: No injection, discharge or icterus. NECK: Trachea midline. ENT: Mucous membranes pink and moist. LUNGS: Airway patent. No retractions. Breath sounds with diminished bases HEART: Regular rate and rhythm. No chest wall tenderness ABDOMEN: Soft with some mild tenderness of the mid periumbilical abdomen without guarding or peritoneal signs. SKIN: Acyanotic, warm, dry, without rashes EXTREMITIES: Patient without significant tenderness with 1+ edema of the lower extremities. NEUROLOGICAL: No focal deficits. No aphasia. No facial droop or slurred speech. Normal strength and tone in the extremities. Sensation to gross touch normal. Ambulatory but quickly becomes tachypneic and desaturates with ambulation. EK bpm what appears to be A-fib with PACs with a left axis interventricular conduction delay with some artifact noted in lead V1. CONTINUOUS CARDIAC MONITORING: was ordered and showed a heart rate of 60s-70s bpm in A-fib versus PACs with a interventricular conduction delay. Patient's laboratory studies and imaging reviewed. Differential includes Appendicitis, testicular torsion, infections, diverticulitis, UTI, obstruction, mesenteric ischemia, aortic pathology, inflammatory bowel disease, renal colic, PUD, pancreatitis, biliary pathology, hernia, volvulus, constipation, as well as other pathologies. IMPRESSION/MEDICAL DECISION MAKING: Patient was admitted for some heart failure issues little bit of shortness of breath now but denies significant increase in swelling. States compliance of medication including diuretic and blood thinner. Doubt VTE given anticoagulation status. No trauma reported. Denies significant chest pain. EKG obtained. Some pain and mild tenderness of the mid abdomen and will complete CT scan here. Chest x-ray to be obtained. COVID test and basic blood work ordered. Urinalysis without signs of infection. CBC with slight anemia not far off baseline. No significant leukocytosis. While attempting to ambulate to the bathroom became quite tachypneic and desaturated into the high 80s. Stable CKD. No significant lecture light abnormalities. No evidence of hepatitis pancreatitis based on labs. No troponin elevation. Negative COVID testing. CT abdomen pelvis obtained and radiology report shows prior cholecystectomy without evidence of diverticulitis, free air, or bowel obstruction. Discussed with patient findings. Given his tachypnea as well as findings we will give additional dose of diuretic with Lasix to see if this help with his symptoms. BNP only modestly elevated at 141. Will bring in for further care here as he is not really able to ambulate any significant distance due to his symptoms. Daughter is in agreement this plan and wishes for us to do what we need to get things figured things out. Patient in agreement. DIAGNOSIS: Nausea, shortness of breath, abdominal pain DISPOSITION: Hospitalist will evaluate Patient was agreeable with this plan. Past Med/Surg History Medical History 2019 novel coronavirus-infected pneumonia (NCIP) ? HX Acute on chronic diastolic heart failure with preserved ejection fraction Anxiety and depression Atrial fibrillation with rapid ventricular response hx cardioversion...unsuccessful pacemaker placed jun 2021 BPH without obstruction/lower urinary tract symptoms CAD (coronary artery disease) Nonobstructive per cardiac cath 05/2010 Carpal tunnel syndrome Chronic diarrhea WORSENING...REASON FOR UPCOMING PROCEDURES Chronic diastolic CHF (congestive heart failure) Chronic sinusitis CKD (chronic kidney disease), stage III Diarrhea DVT prophylaxis Elevated troponin I level Escherichia coli infection HX GERD (gastroesophageal reflux disease) Gout hx History of DVT (deep vein thrombosis) History of paroxysmal supraventricular tachycardia ? HX History of pulmonary embolism Hyperlipidemia Hypertension Hypothyroidism Hypoxia Hypoxia Klebsiella infection HX Lambda light chain myeloma LBBB (left bundle branch block) ? HX Multiple myeloma dx 4 yr ago...current chemo tx monthly Neuralgia ON SIDE OF FACE Nonobstructive atherosclerosis of coronary artery By 05/2010 catheterization Obesity Obstructive sleep apnea on CPAP Pneumonia due to COVID-19 virus Prolonged QT interval ? HX Recurrent Clostridioides difficile infection Restless leg syndrome SOB (shortness of breath) SOB ON EXERTION...CT scan done 1-1.5 mon ago [facility]...form of blood clot and fluid ? extent , some kind of scarring - f/u with lung specialist - appointment not yet made Thrombocytopenia Thyroid disease Surgical History H/O sinus surgery unknown History of appendectomy History of bilateral knee arthroplasty History of cardiac cath ? 2009 - unable to verify - no known hx stent(s) History of cataract surgery RT/LEFT History of colonoscopy History of esophagogastroduodenoscopy (EGD) History of pacemaker jun 2021/? type/recent check unknown details History of revision of total knee arthroplasty ? side...d/t infection History of thoracentesis July [address] Jeffries. No bacterial growth or malignancy Pleurx catheter placed July 2019. Removed September 2019 History of tooth extraction History of total right hip arthroplasty Hx of cholecystectomy Status post total hip replacement, left Family History Father Heart disease Mother Diabetes Hypertension Brother Family hx of colon cancer Brother Family hx of colon cancer Social History Smoking Status: Never smoker Second Hand Exposure: No; Do You Dip or Chew Tobacco: No; Hx Alcohol Use: No Hx Substance Use: No Preferred Language: Jamaican Communication Ability: Effective Communication Ability Comment: PT DAUGHTER SHADY DAY, SIGNS CONSENTS (PT LIMITED COMPREHENSION) Vitreo Retinal Surgeon Required: No Beliefs That Will Affect Care: None marital status: Current Living Situation: Family Current Living Situation Comment: AND DAUGHTER How many Children do You have: 2 Feels Safe at Home: Yes Assistive Devices: Walker Allergies Allergies Allergy/AdvReac Type Severity Reaction Status Date / Time COVID-19 vaccine, mRNA, AdvReac Unknown probable Verified 01/24/23 15:06 [id number], L reaction: [From [place] ()] throat swelling Home Meds Home Medications Medication Instructions Recorded Confirmed allopurinol 300 mg tablet 300 mg PO QAM 04/30/18 01/23/23 atorvastatin 10 mg tablet 5 mg PO QAM 04/30/18 01/23/23 cholecalciferol (vitamin D3) 50 2,000 unit PO QAM 04/30/18 01/23/23 mcg (2,000 unit) capsule (Vitamin D3) citalopram 20 mg tablet (Celexa) 40 mg PO QAM 04/30/18 01/23/23 hydralazine 50 mg tablet 25 mg PO TID 04/30/18 01/23/23 omeprazole 40 mg capsule,delayed 40 mg PO DAILY 04/30/18 01/23/23 release terazosin 5 mg capsule 5 mg PO HS 04/30/18 01/23/23 aspirin 81 mg tablet,delayed 81 mg PO QAM 03/10/20 01/23/23 release montelukast 10 mg tablet 10 mg PO QAM 05/07/21 01/23/23 diphenoxylate-atropine 2.5 1 tab PO QID PRN Diarrhea 07/10/22 01/23/23 mg-0.025 mg tablet potassium chloride 20 mEq 20 meq PO DAILY 11/29/22 01/23/23 tablet,extended release calcium carbonate 600 mg calcium 1,500 mg PO BID 01/23/23 01/23/23 (1,500 mg) tablet cyanocobalamin (vitamin B-12) 1,000 mcg PO DAILY 01/23/23 01/23/23 1,000 mcg tablet eplerenone 25 mg tablet 12.5 mg PO DAILY 01/23/23 01/23/23 hydrocortisone acetate 25 mg 25 mg ID HS PRN Hemorrhoids 01/23/23 01/23/23 rectal suppository levothyroxine 50 mcg tablet 50 mcg PO DAILYBB 01/23/23 01/23/23 triamcinolone acetonide 0.1 % 1 applic topical BID 01/23/23 01/23/23 topical cream Previous Rx's Medication Instructions Recorded apixaban 2.5 mg tablet (Eliquis) 2.5 mg PO BID #60 tabs 07/13/21 furosemide 40 mg tablet 40 mg PO QAM #30 tabs 12/01/22 magnesium oxide 400 mg PO BID #60 caps 12/01/22 metoprolol succinate 25 mg 25 mg PO BID 30 days #60 tabs 01/26/23 tablet,extended release 24 hr Results & Data (ED) Vital Signs Vital Signs - 24 hr 01/28/23 16:49 01/28/23 16:54 01/28/23 17:51 Temperature 36.8 C Temperature Source Oral Pulse Rate 83 62 Pulse Rate [Apical] Pulse Rhythm Regular Respiratory Rate 20 22 Respiratory Effort / Characteristics Non-Labored Spontaneous Non-Labored Respiratory Depth Normal Normal Respiratory Pattern Regular Blood Pressure 153/85 H Blood Pressure [Right Arm] 161/104 H Blood Pressure Mean 107 Blood Pressure Mean [Right Arm] 123 Blood Pressure Position Semi-fowlers Blood Pressure Position [Right Arm] Sitting Pulse Oximetry 96 93 Oxygen Delivery Method Room Air Room Air Oxygen Flow Rate Sepsis Recent Fever Within 48 Hours No Sepsis New/Unexplained Change in Mental Status No Sepsis Action Taken by Nursing No Action Required 01/28/23 17:51 01/28/23 19:02 01/28/23 18:45 Temperature Temperature Source Pulse Rate 66 Pulse Rate [Apical] 70 Pulse Rhythm Regular Respiratory Rate 22 22 Respiratory Effort / Characteristics Respiratory Depth Respiratory Pattern Blood Pressure Blood Pressure [Right Arm] 164/83 H Blood Pressure Mean Blood Pressure Mean [Right Arm] 110 Blood Pressure Position Blood Pressure Position [Right Arm] Semi-fowlers Pulse Oximetry 93 86 L Oxygen Delivery Method Room Air Nasal Cannula Room Air Oxygen Flow Rate 1 Sepsis Recent Fever Within 48 Hours Sepsis New/Unexplained Change in Mental Status Sepsis Action Taken by Nursing 01/28/23 20:21 Temperature Temperature Source Pulse Rate Pulse Rate [Apical] 66 Pulse Rhythm Respiratory Rate 26 H Respiratory Effort / Characteristics Respiratory Depth Respiratory Pattern Blood Pressure Blood Pressure [Right Arm] 162/90 H Blood Pressure Mean Blood Pressure Mean [Right Arm] 114 Blood Pressure Position Blood Pressure Position [Right Arm] Semi-fowlers Pulse Oximetry 96 Oxygen Delivery Method Nasal Cannula Oxygen Flow Rate 1 Sepsis Recent Fever Within 48 Hours Sepsis New/Unexplained Change in Mental Status Sepsis Action Taken by Nursing Laboratory Data 01/28/23 17:05 01/28/23 17:05 Lab Results 01/28/23 01/28/23 01/28/23 Range/Units 17:00 17:05 17:05 WBC 7.33 (4.8-10.8) K/ul RBC 3.72 L (4.70-6.10) M/uL Hgb 12.8 L (14.0-18.0) g/dl Hct 36.8 L (42.0-52.0) % MCV 98.9 (80.0-100.0) fL MCH 34.4 H (25.0-34.0) pg MCHC 34.8 (32.0-36.0) g/dL RDW Std Deviation 51.1 H (36.4-46.3) fL RDW Coeff of [place] 14.1 (11.5-14.5) % Plt Count 178 (130-400) K/uL MPV 12.4 (9.4-12.4) fL Immature Gran % (Auto) 0.3 % Neut % (Auto) 70.5 % Lymph % (Auto) 14.2 % Shannon % (Auto) 11.2 % Eos % (Auto) 3.0 % Baso % (Auto) 0.8 % Neut # (Auto) 5.17 (1.40-6.50) K/uL Lymph # (Auto) 1.04 L (1.2-3.4) K/uL Shannon # (Auto) 0.82 H (0.11-0.59) K/uL Eos # (Auto) 0.22 (0-0.50) K/uL Baso # (Auto) 0.06 (0-0.2) K/uL Immature Gran # (Auto) 0.02 (0.01-0.20) K/uL Sodium 141 (136-145) mmol/L Potassium 3.9 (3.5-5.1) mmol/L Chloride 103 (98-107) mmol/L Carbon Dioxide 32 (21-32) mmol/L Anion Gap 6 (3-11) BUN 22 (6-23) mg/dl Creatinine 1.41 H (0.6-1.4) mg/dl Est Cr Clr Drug Dosing 51.8 ml/min Est GFR ( Amer) 53.4 ml/min Est GFR (Non-Af Amer) 46.1 ml/min BUN/Creatinine Ratio 15.6 (10-20) Glucose 102 H (70-99(Fasting)) mg/dl Calcium 8.3 L (8.6-10.3) mg/dl Total Bilirubin 0.9 (0.2-1.0) mg/dl AST 22 (13-39) U/L ALT 14 (7-52) U/L Alkaline Phosphatase 55 (34-104) U/L Troponin I High Sens 11.0 (0-20) pg/ml B-Natriuretic Peptide (0-100) pg/ml Total Protein 5.7 L (6.0-8.3) gm/dl Albumin 4.0 (3.4-5.0) gm/dl Globulin 1.7 L (2.5-4.0) gm/dl Albumin/Globulin Ratio 2.4 H (0.9-2) Lipase 36 (11-82) U/L Urine Color Yellow Urine Appearance Clear (Clear) Urine pH 5.0 (4.5-7.5) Ur Specific [place] 1.010 (1.000-1.030) Urine Protein Negative (Negative) Urine Glucose (UA) Negative (Negative) Urine Ketones Negative (Negative) Urine Blood Negative (Negative) Urine Nitrite Negative (Negative) Urine Bilirubin Negative (Negative) Urine Urobilinogen Negative (Negative) Ur Leukocyte Esterase Negative (Negative) SARS-CoV-2, RNA, NAAT (NEGATIVE) 01/28/23 01/28/23 Range/Units 17:48 20:16 WBC (4.8-10.8) K/ul RBC (4.70-6.10) M/uL Hgb (14.0-18.0) g/dl Hct (42.0-52.0) % MCV (80.0-100.0) fL MCH (25.0-34.0) pg MCHC (32.0-36.0) g/dL RDW Std Deviation (36.4-46.3) fL RDW Coeff of Nnu[place] (11.5-14.5) % Plt Count (130-400) K/uL MPV (9.4-12.4) fL Immature Gran % (Auto) % Neut % (Auto) % Lymph % (Auto) % Shannon % (Auto) % Eos % (Auto) % Baso % (Auto) % Neut # (Auto) (1.40-6.50) K/uL Lymph # (Auto) (1.2-3.4) K/uL Shannon # (Auto) (0.11-0.59) K/uL Eos # (Auto) (0-0.50) K/uL Baso # (Auto) (0-0.2) K/uL Immature Gran # (Auto) (0.01-0.20) K/uL Sodium (136-145) mmol/L Potassium (3.5-5.1) mmol/L Chloride (98-107) mmol/L Carbon Dioxide (21-32) mmol/L Anion Gap (3-11) BUN (6-23) mg/dl Creatinine (0.6-1.4) mg/dl Est Cr Clr Drug Dosing ml/min Est GFR ( Amer) ml/min Est GFR (Non-Af Amer) ml/min BUN/Creatinine Ratio (10-20) Glucose (70-99(Fasting)) mg/dl Calcium (8.6-10.3) mg/dl Total Bilirubin (0.2-1.0) mg/dl AST (13-39) U/L ALT (7-52) U/L Alkaline Phosphatase (34-104) U/L Troponin I High Sens (0-20) pg/ml B-Natriuretic Peptide 141 H (0-100) pg/ml Total Protein (6.0-8.3) gm/dl Albumin (3.4-5.0) gm/dl Globulin (2.5-4.0) gm/dl Albumin/Globulin Ratio (0.9-2) Lipase (11-82) U/L Urine Color Urine Appearance (Clear) Urine pH (4.5-7.5) Ur Specific [place] (1.000-1.030) Urine Protein (Negative) Urine Glucose (UA) (Negative) Urine Ketones (Negative) Urine Blood (Negative) Urine Nitrite (Negative) Urine Bilirubin (Negative) Urine Urobilinogen (Negative) Ur Leukocyte Esterase (Negative) SARS-CoV-2, RNA, NAAT NEGATIVE (NEGATIVE) Administered Medications Discontinued Medications Furosemide (Furosemide 40 Mg/4 Ml Vial) 40 mg IV ONE ONE Stop: 01/28/23 20:07 Last Admin: 01/28/23 20:23 Dose: 40 mg Documented By: AB Ioversol (Optiray 320 100ml) 93 ml IV ONCE ONE Stop: 01/28/23 19:26 Last Admin: 01/28/23 19:25 Dose: 93 ml Documented By: MINA Ondansetron HCl (Ondansetron Inj 2 Mg/Ml 2 Ml Vial) 4 mg IV NOW STA Stop: 01/28/23 16:56 Last Admin: 01/28/23 18:04 Dose: 4 mg Documented By: MARIA DE JESUS Imaging Data Radiologist's Impression: Abdomen/Pelvis CT 01/28/23 16:52 Exam(s): CT ABDOMEN + PELVIS With Contrast IV Amt: 93 ml optriay 320 EXAM: CT Abdomen and Pelvis With Intravenous Contrast CLINICAL HISTORY: Reason for exam: abd pain, nausea. TECHNIQUE: Axial computed tomography images of the abdomen and pelvis with intravenous contrast. CTDI is 28.14 mGy and DLP is 1527.97 mGy-cm. Automated exposure control was utilized for the study. A dose lowering technique was utilized adhering to the principles of ALARA. CONTRAST: Patient received 93 ml optriay 320 of IV contrast COMPARISON: No relevant prior studies available. FINDINGS: Lung bases: Unremarkable. No mass. No consolidation. ABDOMEN: Liver: Unremarkable. No focal hepatic lesion. Gallbladder and bile ducts: Cholecystectomy. No ductal dilation. Pancreas: Unremarkable. No mass. No ductal dilation. Spleen: Unremarkable. No splenomegaly. Adrenals: Unremarkable. No mass. Kidneys and ureters: No hydronephrosis or delayed nephrogram. Stone in the urinary bladder measures 1 cm. Stomach and bowel: Anastomotic sutures in the RIGHT colon, correlate for partial colectomy. Diverticulosis, without acute diverticulitis. No small bowel obstruction. No free intraperitoneal air. PELVIS: Appendix: See above. Bladder: Small LEFT bladder diverticulum measures 1.1 x 1.3 cm. Reproductive: Unremarkable as visualized. ABDOMEN and PELVIS: Intraperitoneal space: Unremarkable. No free air. No significant fluid collection. Bones/joints: Bilateral hip arthroplasties. Degenerative changes of the spine. No acute fracture. No dislocation. Soft tissues: Bilateral gynecomastia. Vasculature: Atherosclerotic changes of the aorta. No abdominal aortic aneurysm. Lymph nodes: Unremarkable. No enlarged lymph nodes. Tubes, lines and devices: Pacemaker leads. IMPRESSION: 1. Cholecystectomy. 2. No hydronephrosis or delayed nephrogram. Stone in the urinary bladder measures 1 cm. 3. Small LEFT bladder diverticulum measures 1.1 x 1.3 cm. 4. Anastomotic sutures in the RIGHT colon, correlate for partial colectomy. 5. Bilateral hip arthroplasties. 6. Diverticulosis, without acute diverticulitis. No small bowel obstruction. No free intraperitoneal air. Electronically signed by: Ivan Treviño MD 01/28/23 19:52 PM Chest X-Ray 01/28/23 16:53 XR chest 1V portable HISTORY: 82 years-old Male sob acute shortness of breath COMPARISON: 01/23/2023 TECHNIQUE: AP view the chest FINDINGS: Cardiac silhouette is enlarged. Unchanged mild right hemidiaphragmatic elevation. Pulmonary vascular congestion with interstitial coarsening. No pneumothorax or large pleural effusion. Left subclavian pacer. Bones appear grossly intact. IMPRESSION: Cardiomegaly with mild pulmonary edema. ACT 112: Negative or not required by law. The above report was generated using voice recognition software. It may contain grammatical, syntax or spelling errors. Electronically signed by: Luis M Mortensen M.D. 01/28/2023 5:28 PM Discharge Plan Visit Data Chief Complaint: Abdominal Pain Stated Complaint: abdominal pain ED Provider: Ruben Vera Discharge Problem: Breathlessness, Abdominal pain, Nausea Patient Disposition: Being Evaluated by Hospitalist Forms Stand Alone Forms: My [facility] [place] [employer] Prescriptions Prescriptions: No Action aspirin 81 mg tablet,delayed release (DR/EC) 81 mg PO QAM terazosin 5 mg Capsule 5 mg PO HS atorvastatin 10 mg Tablet 5 mg PO QAM Rx Instructions: TAKE HALF A TABLET DAILY omeprazole 40 mg Capsule,Delayed Release(Dr/Ec) 40 mg PO DAILY citalopram [Celexa] 20 mg Tablet 40 mg PO QAM allopurinol 300 mg Tablet 300 mg PO QAM hydralazine 50 mg Tablet 25 mg PO TID cholecalciferol (vitamin D3) [Vitamin D3] 2,000 unit Capsule 2,000 unit PO QAM potassium chloride 20 mEq tablet extended release 20 meq PO DAILY furosemide 40 mg Tablet 40 mg PO QAM Qty: 30 0RF magnesium oxide 400 mg magnesium capsule 400 mg PO BID Qty: 60 0RF cyanocobalamin (vitamin B-12) 1,000 mcg Tablet 1,000 mcg PO DAILY triamcinolone acetonide 0.1 % cream 1 applic TOPICAL BID hydrocortisone acetate 25 mg suppository 25 mg ID HS PRN (Reason: Hemorrhoids) calcium carbonate 600 mg calcium (1,500 mg) tablet 1,500 mg PO BID levothyroxine 50 mcg tablet 50 mcg PO DAILYBB eplerenone 25 mg Tablet 12.5 mg PO DAILY metoprolol succinate 25 mg Tablet Extended Release 24 Hr 25 mg PO BID 30 Days Qty: 60 0RF montelukast 10 mg tablet 10 mg PO QAM Eliquis 2.5 mg Tablet 2.5 mg PO BID Qty: 60 0RF diphenoxylate-atropine 2.5-0.025 mg Tablet 1 tab PO QID PRN (Reason: Diarrhea) Referrals Referrals: Telma Jacobs CRNP [Primary Care Provider] - 01/30/23 10:00 am (You are scheduled to see Telma Jacobs on 01/30/23 at 10:00am. If you have any questions or are unable to keep the appointment, please contact her office directly.)
--- NOTE | 2023-01-28 17:29 | XRay Report ---
XR chest 1V portable HISTORY: 82 years-old Male sob acute shortness of breath COMPARISON: 01/23/2023 TECHNIQUE: AP view the chest FINDINGS: Cardiac silhouette is enlarged. Unchanged mild right hemidiaphragmatic elevation. Pulmonary vascular congestion with interstitial coarsening. No pneumothorax or large pleural effusion. Left subclavian p acer. Bones appear grossly intact. IMPRESSION: Cardiomegaly with mild pulmonary edema. ACT 112: Negative or not required by law. The above report was generated using voice recognition software. It may contain grammatical, syntax o r spelling errors. Electronically signed by: Luis M Mortensen M.D. 01/28/2023 5:28 PM
[2023-01-28 17:30] LABS: Appearance Urine Clear (Clear); Bilirubin Urine Negative (Negative); Blood Urine Negative (Negative); Color Urine Yellow; Glucose Urine UA Negative (Negative); Ketones Urine Negative (Negative); Leukocyte Esterase Urine Negative (Negative); Nitrite Urine Negative (Negative); Protein Urine Negative (Negative); Urobilinogen Urine Negative (Negative)
[2023-01-28 17:58] LABS: Basophils # (auto) 0.06 K/uL (0-0.2); Basophils % (auto) 0.8 %; Eosinophils # (auto) 0.22 K/uL (0-0.50); Hematocrit (blood only) 36.8 % (42.0-52.0); Hemoglobin 12.8 g/dl (14.0-18.0); Immature Granulocytes # (auto) 0.02 K/uL (0.01-0.20); Immature Granulocytes % (auto) 0.3 %; Lymphocytes # (auto) 1.04 K/uL (1.2-3.4); Lymphocytes % (auto) 14.2 %; Mean Corpuscular Hemoglobin 34.4 pg (25.0-34.0); Mean Corpuscular Hgb Conc 34.8 g/dL (32.0-36.0); Mean Corpuscular Volume 98.9 fL (80.0-100.0); Mean Platelet Volume 12.4 fL (9.4-12.4); Monocytes # (auto) 0.82 K/uL (0.11-0.59); Monocytes % (auto) 11.2 %; Neutrophils # (auto) 5.17 K/uL (1.40-6.50); Neutrophils % (auto) 70.5 %; Platelet Count 178 K/uL (130-400); RDW Coefficient of Variation 14.1 % (11.5-14.5); RDW Standard Deviation 51.1 fL (36.4-46.3); Red Blood Count 3.72 M/uL (4.70-6.10); White Blood Count 7.33 K/ul (4.8-10.8)
[2023-01-28 18:14] LABS: Albumin Globulin Ratio 2.4 (0.9-2); BUN Creatinine Ratio 15.6 (10-20); Bilirubin,Total 0.9 mg/dl (0.2-1.0); Calcium 8.3 mg/dl (8.6-10.3); Creatinine Clr Calc Pharmacy 51.8 ml/min; Est GFR (African American) 53.4 ml/min; Est GFR (Non-African American) 46.1 ml/min; Globulin 1.7 gm/dl (2.5-4.0); Potassium 3.9 mmol/L (3.5-5.1); Total Protein 5.7 gm/dl (6.0-8.3)
[2023-01-28] MEDS ORDERED: OPTIRAY 320 100ml IV ONE (19:25)
--- NOTE | 2023-01-28 19:52 | CT Scan Report ---
Exam(s): CT ABDOMEN + PELVIS With Contrast IV Amt: 93 ml optriay 320 EXAM: CT Abdomen and Pelvis With Intravenous Contrast CLINICAL HISTORY: Reason for exam: abd pain, nausea. TECHNIQUE: Axial computed tomography images of the abdomen and pelvis with intravenous contrast. CTDI is 28.14 mGy and DLP is 1527.97 mGy-cm. Automated exposure control was utilized for the study. A dose lowering technique was utilized adhering to the principles of ALARA. CONTRAST: Patient received 93 ml optriay 320 of IV contrast COMPARISON: No relevant prior studies available. FINDINGS: Lung bases: Unremarkable. No mass. No consolidation. ABDOMEN: Liver: Unremarkable. No focal hepatic lesion. Gallbladder and bile ducts: Cholecystectomy. No ductal dilation. Pancreas: Unremarkable. No mass. No ductal dilation. Spleen: Unremarkable. No splenomegaly. Adrenals: Unremarkable. No mass. Kidneys and ureters: No hydronephrosis or delayed nephrogram. Stone in the urinary bladder measures 1 cm. Stomach and bowel: Anastomotic sutures in the RIGHT colon, correlate for partial colectomy. Diverticulosis, without acute diverticulitis. No small bowel obstruction. No free intraperitoneal air. PELVIS: Appendix: See above. Bladder: Small LEFT bladder diverticulum measures 1.1 x 1.3 cm. Reproductive: Unremarkable as visualized. ABDOMEN and PELVIS: Intraperitoneal space: Unremarkable. No free air. No significant fluid collection. Bones/joints: Bilateral hip arthroplasties. Degenerative changes of the spine. No acute fracture. No dislocation. Soft tissues: Bilateral gynecomastia. Vasculature: Atherosclerotic changes of the aorta. No abdominal aortic aneurysm. Lymph nodes: Unremarkable. No enlarged lymph nodes. Tubes, lines and devices: Pacemaker leads. IMPRESSION: 1. Cholecystectomy. 2. No hydronephrosis or delayed nephrogram. Stone in the urinary bladder measures 1 cm. 3. Small LEFT bladder diverticulum measures 1.1 x 1.3 cm. 4. Anastomotic sutures in the RIGHT colon, correlate for partial colectomy. 5. Bilateral hip arthroplasties. 6. Diverticulosis, without acute diverticulitis. No small bowel obstruction. No free intraperitoneal air. Electronically signed by: Ivan Treviño MD 01/28/23 19:52 PM
[2023-01-28] MEDS ORDERED: FUROSEMIDE 40 MG/4 ML VIAL IV ONE (20:06)
--- NOTE | 2023-01-28 23:26 | History & Physical Report ---
Date of Service January 28, 2023 Assessment & Plan (1) Acute on chronic diastolic heart failure with preserved ejection fraction: Plan: 82-year-old male with past medical significant for hyperlipidemia, hypothyroidism, gout, obstructive sleep apnea on CPAP nightly, chronic diastolic CHF, PAF, tachybradycardia syndrome, s/p pacemaker, history of 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, hypertension, chronic kidney disease stage III, history of CAD, left bundle branch block, morbid obesity, GERD, vitamin B12 deficiency, BPH, osteoarthritis, restless leg syndrome, history of poison annabelle dermatitis, history of monoclonal paraproteinemia, history of angioedema, history of C. difficile, h istory of depression recently in the hospital for acute diastolic CHF treated with IV Lasix and discharged back on his home Lasix and Meprolone and Toprol on January 26 presents again today with shortness of breath says going on for last 2 days and also abdominal discomfort. Acute on chronic diastolic CHF Received IV Lasix 40 mg in the ER We will continue with IV Lasix 40 mg twice daily Continue home epelerone and Toprol Monitoring telemetry Daily weights and I's and O's Consult cardiology in a.m. for further recommendations Abdominal discomfort CT abdomen okay Clear liquids for now and monitor Obstructive sleep apnea CPAP nightly A-fib On Toprol and Eliquis Chronic kidney stage III Creatinine 1.4 we will follow the labs Gout Allopurinol Hyperlipidemia On statin Hypertension On diuretics, Toprol, hydralazine and terazosin We will monitor the blood pressure Hypothyroidism on Synthyroid BPH on terazosin Tachybradycardia syndrome s/p pacemaker GERD on omeprazole DVT prophylaxis on Eliquis Disposition telemetry Full code (2) Abdominal pain: History of Present Illness Chief Complaint: Shortness of breath and abdominal pain Primary Care Provider: ASHER Eddy 82-year-old male with past medical significant for hyperlipidemia, hypothyroidism, gout, obstructive sleep apnea on CPAP nightly, chronic diastolic CHF, PAF, tachybradycardia syndrome, s/p pacemaker, history of 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, hypertension, chronic kidney disease stage III, history of CAD, left bundle branch block, morbid obesity, GERD, vitamin B12 deficiency, BPH, osteoarthritis, restless leg syndrome, history of poison annabelle dermatitis, history of monoclonal paraproteinemia, history of angioedema, history of C. difficile, history of depression recently in the hospital for acute diastolic CHF treated with IV Lasix and discharged back on his home Lasix and Meprolone and Toprol on January 26 presents again today with shortness of breath says going on for last 2 days and also abdominal discomfort. Received IV Lasix in the ER. States that shortness of breath improved. Has mild abdominal discomfort. Denies any diarrhea or constipation or blood or black stools. Denies any chest pain. No headache or dizziness. No blurred vision seen. No earache or runny nose or sore throat or cough. No difficulty swallowing. Normal bladder movements. Allergies Allergy/AdvReac Type Severity Reaction Status Date / Time COVID-19 vaccine, mRNA, AdvReac Unknown probable Verified 01/24/23 15:06 [id number], L reaction: [From [place] ([facility])] throat swelling Home Medications Medication Instructions Recorded Confirmed Type allopurinol 300 mg tablet 300 mg PO QAM 04/30/18 01/23/23 History atorvastatin 10 mg tablet 5 mg PO QAM 04/30/18 01/23/23 History cholecalciferol (vitamin D3) 50 2,000 unit PO QAM 04/30/18 01/23/23 History mcg (2,000 unit) capsule (Vitamin D3) citalopram 20 mg tablet (Celexa) 40 mg PO QAM 04/30/18 01/23/23 History hydralazine 50 mg tablet 25 mg PO TID 04/30/18 01/23/23 History omeprazole 40 mg capsule,delayed 40 mg PO DAILY 04/30/18 01/23/23 History release terazosin 5 mg capsule 5 mg PO HS 04/30/18 01/23/23 History aspirin 81 mg tablet,delayed 81 mg PO QAM 03/10/20 01/23/23 History release montelukast 10 mg tablet 10 mg PO QAM 05/07/21 01/23/23 History apixaban 2.5 mg tablet (Eliquis) 2.5 mg PO BID #60 tabs 07/13/21 01/23/23 Rx diphenoxylate-atropine 2.5 1 tab PO QID PRN Diarrhea 07/10/22 01/23/23 History mg-0.025 mg tablet potassium chloride 20 mEq 20 meq PO DAILY 11/29/22 01/23/23 History tablet,extended release furosemide 40 mg tablet 40 mg PO QAM #30 tabs 12/01/22 01/23/23 Rx magnesium oxide 400 mg PO BID #60 caps 12/01/22 01/23/23 Rx calcium carbonate 600 mg calcium 1,500 mg PO BID 01/23/23 01/23/23 History (1,500 mg) tablet cyanocobalamin (vitamin B-12) 1,000 mcg PO DAILY 01/23/23 01/23/23 History 1,000 mcg tablet eplerenone 25 mg tablet 12.5 mg PO DAILY 01/23/23 01/23/23 History hydrocortisone acetate 25 mg 25 mg MD HS PRN Hemorrhoids 01/23/23 01/23/23 History rectal suppository levothyroxine 50 mcg tablet 50 mcg PO DAILYBB 01/23/23 01/23/23 History triamcinolone acetonide 0.1 % 1 applic topical BID 01/23/23 01/23/23 History topical cream metoprolol succinate 25 mg 25 mg PO BID 30 days #60 tabs 01/26/23 Rx tablet,extended release 24 hr Past Med/Surg History Medical History 2019 novel coronavirus-infected pneumonia (NCIP) ? HX Acute on chronic diastolic heart failure with preserved ejection fraction Anxiety and depression Atrial fibrillation with rapid ventricular response hx cardioversion...unsuccessful pacemaker placed jun 2021 BPH without obstruction/lower urinary tract symptoms CAD (coronary artery disease) Nonobstructive per cardiac cath 05/2010 Carpal tunnel syndrome Chronic diarrhea WORSENING...REASON FOR UPCOMING PROCEDURES Chronic diastolic CHF (congestive heart failure) Chronic sinusitis CKD (chronic kidney disease), stage III Diarrhea DVT prophylaxis Elevated troponin I level Escherichia coli infection HX GERD (gastroesophageal reflux disease) Gout hx History of DVT (deep vein thrombosis) History of paroxysmal supraventricular tachycardia ? HX History of pulmonary embolism Hyperlipidemia Hypertension Hypothyroidism Hypoxia Hypoxia Klebsiella infection HX Lambda light chain myeloma LBBB (left bundle branch block) ? HX Multiple myeloma dx 4 yr ago...current chemo tx monthly Neuralgia ON SIDE OF FACE Nonobstructive atherosclerosis of coronary artery By 05/2010 catheterization Obesity Obstructive sleep apnea on CPAP Pneumonia due to COVID-19 virus Prolonged QT interval ? HX Recurrent Clostridioides difficile infection Restless leg syndrome SOB (shortness of breath) SOB ON EXERTION...CT scan done 1-1.5 mon ago [facility]...form of blood clot and fluid ? extent , some kind of scarring - f/u with lung specialist - appointment not yet made Thrombocytopenia Thyroid disease Surgical History H/O sinus surgery unknown History of appendectomy History of bilateral knee arthroplasty History of cardiac cath ? 2009 - unable to verify - no known hx stent(s) History of cataract surgery RT/LEFT History of colonoscopy History of esophagogastroduodenoscopy (EGD) History of pacemaker jun 2021/? type/recent check unknown details History of revision of total knee arthroplasty ? side...d/t infection History of thoracentesis July [address] Jeffries. No bacterial growth or malignancy Pleurx catheter placed July 2019. Removed September 2019 History of tooth extraction History of total right hip arthroplasty Hx of cholecystectomy Status post total hip replacement, left Family History Father Heart disease Mother Diabetes Hypertension Brother Family hx of colon cancer Brother Family hx of colon cancer Social History Smoking Status: Never smoker Second Hand Exposure: No; Do You Dip or Chew Tobacco: No; Hx Alcohol Use: No Hx Substance Use: No Preferred Language: Mexican Communication Ability: Effective Communication Ability Comment: PT DAUGHTER SHADY DAY, SIGNS CONSENTS (PT LIMITED COMPREHENSION) Patients Transporter Required: No Beliefs That Will Affect Care: None marital status: Current Living Situation: Family Current Living Situation Comment: AND DAUGHTER How many Children do You have: 2 Feels Safe at Home: Yes Assistive Devices: Walker Review of Systems Review of Systems: All systems reviewed & are unremarkable except as noted in Subjective Physical Exam Physical Exam: General- Not in distress Head- atraumatic Eyes- PERRLA. ENT- oropharynx clear Neck- supple, no JVD Lungs- clear to auscultation and percussion Heart- regular rhythm; no murmur, no gallop, Abdomen- normal bowel sounds, soft, mild generalized discomfort, no distension Extremities- mild pedeal edema, no erythema . Neuro- alert, oriented x 3; PERRL, EOMI; no facial palsy; no dysarthria Non focal. Skin- warm & dry Results & Data Results & Data Vital Signs (Past 12 Hours) Vital Signs Temp Pulse Pulse Resp BP BP Pulse Ox 01/28/23 22:34 72 17 122/77 95 01/28/23 20:21 66 26 H 162/90 H 96 01/28/23 18:45 86 L 01/28/23 19:02 70 22 164/83 H 93 01/28/23 17:51 66 22 01/28/23 17:51 22 161/104 H 93 01/28/23 16:54 62 01/28/23 16:49 36.8 C 83 20 153/85 H 96 O2 Del Method O2 Flow Rate 01/28/23 22:34 Nasal Cannula 1 01/28/23 20:21 Nasal Cannula 1 01/28/23 18:45 Room Air 01/28/23 19:02 Nasal Cannula 1 01/28/23 17:51 Room Air 01/28/23 17:51 Room Air 01/28/23 16:54 01/28/23 16:49 Room Air Diagnostic Findings Laboratory Results WBC 7.33 K/ul (4.8-10.8) 01/28/23 17:05 RBC 3.72 M/uL (4.70-6.10) L 01/28/23 17:05 Hgb 12.8 g/dl (14.0-18.0) L 01/28/23 17:05 Hct 36.8 % (42.0-52.0) L 01/28/23 17:05 MCV 98.9 fL (80.0-100.0) 01/28/23 17:05 MCH 34.4 pg (25.0-34.0) H 01/28/23 17:05 MCHC 34.8 g/dL (32.0-36.0) 01/28/23 17:05 RDW Std Deviation 51.1 fL (36.4-46.3) H 01/28/23 17:05 RDW Coeff of [place] 14.1 % (11.5-14.5) 01/28/23 17:05 Plt Count 178 K/uL (130-400) 01/28/23 17:05 MPV 12.4 fL (9.4-12.4) 01/28/23 17:05 Immature Gran % (Auto) 0.3 % 01/28/23 17:05 Neut % (Auto) 70.5 % 01/28/23 17:05 Lymph % (Auto) 14.2 % 01/28/23 17:05 [place] % (Auto) 11.2 % 01/28/23 17:05 Eos % (Auto) 3.0 % 01/28/23 17:05 Baso % (Auto) 0.8 % 01/28/23 17:05 Neut # (Auto) 5.17 K/uL (1.40-6.50) 01/28/23 17:05 Lymph # (Auto) 1.04 K/uL (1.2-3.4) L 01/28/23 17:05 [place] # (Auto) 0.82 K/uL (0.11-0.59) H 01/28/23 17:05 Eos # (Auto) 0.22 K/uL (0-0.50) 01/28/23 17:05 Baso # (Auto) 0.06 K/uL (0-0.2) 01/28/23 17:05 Immature Gran # (Auto) 0.02 K/uL (0.01-0.20) 01/28/23 17:05 Sodium 141 mmol/L (136-145) 01/28/23 17:05 Potassium 3.9 mmol/L (3.5-5.1) 01/28/23 17:05 Chloride 103 mmol/L (98-107) 01/28/23 17:05 Carbon Dioxide 32 mmol/L (21-32) 01/28/23 17:05 Anion Gap 6 (3-11) 01/28/23 17:05 BUN 22 mg/dl (6-23) 01/28/23 17:05 Creatinine 1.41 mg/dl (0.6-1.4) H 01/28/23 17:05 Est Cr Clr Drug Dosing 51.8 ml/min 01/28/23 17:05 Est GFR ( Amer) 53.4 ml/min 01/28/23 17:05 Est GFR (Non-Af Amer) 46.1 ml/min 01/28/23 17:05 BUN/Creatinine Ratio 15.6 (10-20) 01/28/23 17:05 Glucose 102 mg/dl (70-99(Fasting)) H 01/28/23 17:05 Calcium 8.3 mg/dl (8.6-10.3) L 01/28/23 17:05 Total Bilirubin 0.9 mg/dl (0.2-1.0) 01/28/23 17:05 AST 22 U/L (13-39) 01/28/23 17:05 ALT 14 U/L (7-52) 01/28/23 17:05 Alkaline Phosphatase 55 U/L (34-104) 01/28/23 17:05 Troponin I High Sens 11.0 pg/ml (0-20) 01/28/23 17:05 B-Natriuretic Peptide 141 pg/ml (0-100) H 01/28/23 20:16 Total Protein 5.7 gm/dl (6.0-8.3) L 01/28/23 17:05 Albumin 4.0 gm/dl (3.4-5.0) 01/28/23 17:05 Globulin 1.7 gm/dl (2.5-4.0) L 01/28/23 17:05 Albumin/Globulin Ratio 2.4 (0.9-2) H 01/28/23 17:05 Lipase 36 U/L (11-82) 01/28/23 17:05 Urine Color Yellow 01/28/23 17:00 Urine Appearance Clear (Clear) 01/28/23 17:00 Urine pH 5.0 (4.5-7.5) 01/28/23 17:00 Ur Specific [place] 1.010 (1.000-1.030) 01/28/23 17:00 Urine Protein Negative (Negative) 01/28/23 17:00 Urine Glucose (UA) Negative (Negative) 01/28/23 17:00 Urine Ketones Negative (Negative) 01/28/23 17:00 Urine Blood Negative (Negative) 01/28/23 17:00 Urine Nitrite Negative (Negative) 01/28/23 17:00 Urine Bilirubin Negative (Negative) 01/28/23 17:00 Urine Urobilinogen Negative (Negative) 01/28/23 17:00 Ur Leukocyte Esterase Negative (Negative) 01/28/23 17:00 SARS-CoV-2, RNA, NAAT NEGATIVE (NEGATIVE) 01/28/23 17:48 Impressions Abdomen/Pelvis CT 01/28/23 16:52 Exam(s): CT ABDOMEN + PELVIS With Contrast IV Amt: 93 ml optriay 320 EXAM: CT Abdomen and Pelvis With Intravenous Contrast CLINICAL HISTORY: Reason for exam: abd pain, nausea. TECHNIQUE: Axial computed tomography images of the abdomen and pelvis with intravenous contrast. CTDI is 28.14 mGy and DLP is 1527.97 mGy-cm. Automated exposure control was utilized for the study. A dose lowering technique was utilized adhering to the principles of ALARA. CONTRAST: Patient received 93 ml optriay 320 of IV contrast COMPARISON: No relevant prior studies available. FINDINGS: Lung bases: Unremarkable. No mass. No consolidation. ABDOMEN: Liver: Unremarkable. No focal hepatic lesion. Gallbladder and bile ducts: Cholecystectomy. No ductal dilation. Pancreas: Unremarkable. No mass. No ductal dilation. Spleen: Unremarkable. No splenomegaly. Adrenals: Unremarkable. No mass. Kidneys and ureters: No hydronephrosis or delayed nephrogram. Stone in the urinary bladder measures 1 cm. Stomach and bowel: Anastomotic sutures in the RIGHT colon, correlate for partial colectomy. Diverticulosis, without acute diverticulitis. No small bowel obstruction. No free intraperitoneal air. PELVIS: Appendix: See above. Bladder: Small LEFT bladder diverticulum measures 1.1 x 1.3 cm. Reproductive: Unremarkable as visualized. ABDOMEN and PELVIS: Intraperitoneal space: Unremarkable. No free air. No significant fluid collection. Bones/joints: Bilateral hip arthroplasties. Degenerative changes of the spine. No acute fracture. No dislocation. Soft tissues: Bilateral gynecomastia. Vasculature: Atherosclerotic changes of the aorta. No abdominal aortic aneurysm. Lymph nodes: Unremarkable. No enlarged lymph nodes. Tubes, lines and devices: Pacemaker leads. IMPRESSION: 1. Cholecystectomy. 2. No hydronephrosis or delayed nephrogram. Stone in the urinary bladder measures 1 cm. 3. Small LEFT bladder diverticulum measures 1.1 x 1.3 cm. 4. Anastomotic sutures in the RIGHT colon, correlate for partial colectomy. 5. Bilateral hip arthroplasties. 6. Diverticulosis, without acute diverticulitis. No small bowel obstruction. No free intraperitoneal air. Electronically signed by: Ivan Treviño MD 01/28/23 19:52 PM Chest X-Ray 01/28/23 16:53 XR chest 1V portable HISTORY: 82 years-old Male sob acute shortness of breath COMPARISON: 01/23/2023 TECHNIQUE: AP view the chest FINDINGS: Cardiac silhouette is enlarged. Unchanged mild right hemidiaphragmatic elevation. Pulmonary vascular congestion with interstitial coarsening. No pneumothorax or large pleural effusion. Left subclavian pacer. Bones appear grossly intact. IMPRESSION: Cardiomegaly with mild pulmonary edema. ACT 112: Negative or not required by law. The above report was generated using voice recognition software. It may contain grammatical, syntax or spelling errors. Electronically signed by: Luis M Mortensen M.D. 01/28/2023 5:28 PM ECG Additional Comments: ECG A-fib with PVCs rate of [address] changes seen Code Status & VTE Plan VTE Prophylaxis Plan VTE Prophylaxis will be ordered: Yes
[2023-01-29] MEDS ORDERED: NITROGLYCERIN SL 0.4 MG/TAB TAB SL PRN (01:09)
[2023-01-29] MEDS ORDERED: ACETAMINOPHEN 325 MG TAB PO PRN (01:09)
[2023-01-29] MEDS: METOPROLOL SUCC 25MG EXT REL TAB PO SCH ×3 (02:15→20:36)
[2023-01-29 06:16] LABS: Basophils # (auto) 0.07 K/uL (0-0.2); Eosinophils # (auto) 0.24 K/uL (0-0.50); Eosinophils % (auto) 3.4 %; Immature Granulocytes # (auto) 0.02 K/uL (0.01-0.20); Immature Granulocytes % (auto) 0.3 %; Lymphocytes # (auto) 1.27 K/uL (1.2-3.4); Mean Corpuscular Hemoglobin 33.8 pg (25.0-34.0); Mean Corpuscular Hgb Conc 34.3 g/dL (32.0-36.0); Mean Corpuscular Volume 98.6 fL (80.0-100.0); Mean Platelet Volume 12.2 fL (9.4-12.4); Monocytes # (auto) 0.91 K/uL (0.11-0.59); Monocytes % (auto) 12.9 %; Neutrophils # (auto) 4.54 K/uL (1.40-6.50); Neutrophils % (auto) 64.4 %; Platelet Count 162 K/uL (130-400); RDW Coefficient of Variation 13.9 % (11.5-14.5); RDW Standard Deviation 51.1 fL (36.4-46.3); Red Blood Count 3.55 M/uL (4.70-6.10); White Blood Count 7.05 K/ul (4.8-10.8)
[2023-01-29] MEDS ORDERED: LEVOTHYROXINE SODIUM 50 MCG TABLET PO SCH (06:30)
[2023-01-29 06:31] LABS: BUN Creatinine Ratio 13.7 (10-20); Calcium 8.2 mg/dl (8.6-10.3); Creatinine Clr Calc Pharmacy 49.8 ml/min; Est GFR (African American) 51.2 ml/min; Est GFR (Non-African American) 44.2 ml/min; Magnesium 1.7 mg/dl (1.7-2.4); Potassium 3.4 mmol/L (3.5-5.1)
[2023-01-29] MEDS: hydrALAZINE HCL 25 MG TAB PO SCH ×3 (08:07→20:35)
[2023-01-29] MEDS: CHOLECALCIFEROL 1,000 UNITS 25 MCG TAB PO SCH (08:07)
[2023-01-29] MEDS: APIXABAN 2.5 MG TAB PO SCH ×2 (08:08→20:34)
[2023-01-29] MEDS: MAGNESIUM OXIDE 400 MG TAB PO SCH ×2 (08:08→20:34)
[2023-01-29] MEDS: POTASSIUM CHLORIDE CRTAB 20 MEQ TABCR PO SCH (08:08)
[2023-01-29] MEDS: PANTOprazole 40 MG TAB PO SCH (08:08)
[2023-01-29] MEDS: ATORVASTATIN 10 MG TAB PO SCH (08:08)
[2023-01-29] MEDS: allopurinoL 300 MG TAB PO SCH (08:08)
[2023-01-29] MEDS: CITALOPRAM 40 MG TAB PO SCH (08:08)
[2023-01-29] MEDS: CYANOCOBALAMIN (B-12) 500 MCG TABLET PO SCH (08:08)
[2023-01-29] MEDS: ASPIRIN 81 MG ECTAB PO SCH (08:08)
[2023-01-29] MEDS: MONTELUKAST SODIUM 10 MG TABLET PO SCH (08:09)
[2023-01-29] MEDS ORDERED: FUROSEMIDE 40 MG/4 ML VIAL IV SCH (09:00)
--- NOTE | 2023-01-29 11:10 | Electrocardiogram Report ---
Test Reason : Blood Pressure : / mmHG Vent. Rate : 065 BPM Atrial Rate : 000 BPM P-R Int : 000 ms QRS Dur : 154 ms QT Int : 470 ms P-R-T Axes : 000 -37 116 degrees QTc Int : 488 ms Poor data quality, interpretation may be adversely affected Atrial fibrillation with premature ventricular or aberrantly conducted complexes Left bundle branch block Abnormal ECG When compared with ECG of 25-JAN-2023 06:09, Atrial fibrillation has replaced Electronic atrial pacemaker Confirmed by Akash Freire ([id number]) on 01/29/2023 11:10:00 AM Referred By: REFERRED SELF Confirmed By:Akash Freire
[2023-01-29] MEDS ORDERED: POTASSIUM CHLORIDE CRTAB 20 MEQ TABCR PO ONE (12:29)
--- NOTE | 2023-01-29 12:43 | Hospitalist Progress Note ---
Date of Service January 29, 2023 Assessment & Plan (1) Acute on chronic diastolic heart failure with preserved ejection fraction: Plan: per Dr. Jeffery's notes with addendum: 82-year-old male with past medical significant for hyperlipidemia, hypothyroidism, gout, obstructive sleep apnea on CPAP nightly, chronic diastolic CHF, PAF, tachybradycardia syndrome, s/p pacemaker, history of 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, hypertension, chronic kidney disease stage III, history of CAD, left bundle branch block, morbid obesity, GERD, vitamin B12 deficiency, BPH, osteoarthritis, restless leg syndrome, history of poison annabelle dermatitis, history of monoclonal paraproteinemia, history of angioedema, history of C. difficile, history of depression recently in the hospital for acute diastolic CHF treated with IV Lasix and discharged back on his home Lasix and Meprolone and Toprol on January 26 presents again today with shortness of breath says going on for last 2 days and also abdominal discomfort. Acute on chronic diastolic CHF given IV Lasix in the ER on admission and this morning -835ml so far Cardiology SVC consulted wean off oxygen Abdominal discomfort CT abdomen okay Clear liquids for now and monitor Obstructive sleep apnea CPAP nightly A-fib On Toprol and Eliquis Chronic kidney stage III Creatinine 1.4 we will follow the labs Gout Allopurinol Hyperlipidemia On statin Hypertension On diuretics, Toprol, hydralazine and terazosin We will monitor the blood pressure Hypothyroidism on Synthyroid BPH on terazosin Tachybradycardia syndrome s/p pacemaker GERD on omeprazole DVT prophylaxis on Eliquis Disposition telemetry Full code (2) Abdominal pain: Admission and Anticipated Discharge Date Admission Date: January 28, 2023 Subjective ff up for acute diastolic CHF, etc seen resting in bed, comfortable on 2 L NC states he feels improved compared to yesterday breathing is improving no fever/chills, cough, sputum production no chest pain, palpitations, dizziness no other symptoms Review of Systems Review of Systems: all noted and negative except for above Physical Exam Physical Exam: General- oriented x 3, not in distress, speaks in sentences with no effort or accessory muscle use Head- atraumatic Eyes- PERRL, EOMI, anicteric ENT- oropharynx clear Neck- supple, no JVD, no adenopathy, no thyromegaly; carotids +2/2, no bruits appreciated Lungs- clear to auscultation bilaterally, no rales/wheezes Heart- normal rate, regular rhythm; no murmur, no gallop, no rub appreciated Abdomen- normal bowel sounds, nondistended, soft, nontender, no masses or hepatosplenomegaly Extremities- mild lower leg edema, no calf tenderness; peripheral pulses intact Neuro- alert, oriented x 3; CN 2-12 grossly intact; motor 5/5 bilaterally;sensa tion 100% on all extremities; no other gross focal neurologic deficits Skin- warm & dry Results & Data Results & Data Vital Signs (Past 12 Hours) Vital Signs Temp Pulse Pulse Resp BP Pulse Ox O2 Del Method 01/29/23 11:09 36.7 C 84 20 146/81 H 100 Room Air 01/29/23 10:05 60 01/29/23 07:23 36.8 C 58 L 20 162/78 H 95 Nasal Cannula 01/29/23 01:10 72 01/29/23 02:50 36.9 C 64 20 155/83 H 94 Nasal Cannula 01/29/23 01:00 Nasal Cannula 01/29/23 01:14 36.9 C 69 18 153/87 H 94 Nasal Cannula O2 Flow Rate 01/29/23 11:09 01/29/23 10:05 01/29/23 07:23 2 01/29/23 01:10 01/29/23 02:50 2 01/29/23 01:00 1 01/29/23 01:14 1 all noted and reviewed including below
--- NOTE | 2023-01-29 14:51 | Cardiology Consultation ---
Date of Consultation January 29, 2023 Assessment & Plan (1) Acute on chronic diastolic CHF (congestive heart failure): (2) Atrial fibrillation: (3) LBBB (left bundle branch block): (4) Cardiac pacemaker in situ: Plan Patient admitted for recurrent SOB/hypoxia, pulm edema on chest xray consistent with acute on chronic HFpEF. Recommend furosemide 40 mg IV BID today. Supplemental potassium ordered. Continue low dose Eplerenone. Hold AM dose until evaluated and labs reviewed. Monitor I+O's. Daily weight with standing scale. Fluid restriction of 1500 ml. It appears patient has recurrent afib upon admission. He was atrial paced last admission on EKG. Its possible his PAF is contributing to his sudden onset symptoms at home as he describes "shakiness/panicky". Continue Eliquis. Increase metoprolol to 37.5 mg BID. Request Medtronic device interrogation to review arrhythmias and Afib episodes. Continue all other home cardiac medications including ASA and statin. Case discussed with Dr. Galindo I spent a total of 65 minutes on the date of service in preparation, delivery, and documentation of the care provided to this patient, excluding any time spent in the performance of separately billed services. Meri Portillo PA-C Department of Cardiology, [facility] This chart was completed in part utilizing Speech Voice Recognition Software. Grammatical errors, random word insertions, pronoun errors, and incomplete sentences are an occasional consequence of this system due to software limitations, ambient noise, and hardware issues. Any formal questions or concerns about the content, text, or information contained within the body of this dictation should be directly addressed to the provider for clarification. Supervising Physician Co-Signing Physician Notes Supervising Physician Attestation: I have personally performed a history and physical examination on the patient. I agree with the physician assistant coach's findings and plan as documented with the following additions. Subjective: SOB subjectively improved since arrival to the hospital. Exam: CV: regular rhythm ( V paced on telemetry), no edema, lungs clar Assessment and Plan: Acute on chronic HFpEF PAF Ventricular pacing -IV furosemide -cautiously increase metoprolol -pacer interrogation re: AF burden. DVT prophylaxis: on Eliquis I spent a total of 20 minutes on the date of service in preparation, delivery, and documentation of the care provided to this patient, excluding any time spent in the performance of separately billed services. Kvng Galindo, History of Present Illness Reason for Consultation: CHF; SOB; Hypoxia Requesting Physician: Dr. Jeffery Attending Physician: Dr. Galindo History of Present Illness Patient is an 82-year-old male known to [facility] Cardiology, following with Maria Teresa Gomez PA-C/Dr. Forrest. History includes, as outlined in recent outpatient note of 01/20/2023 (Amadeo Gomez) and updated today 1. Moderate nonobstructive CAD by May 2010 catheterization 2. Chronic left bundle branch block 3. Diastolic congestive heart failure felt to be secondary to hypertension, hypertensive heart disease 4. History of pericardial effusion. 5. Asymptomatic ventricular ectopy 6. Paroxysmal atrial fibrillation diagnosed in May 2021, s/p BENJIE guided DCCV on 05/08/2021 at [facility]. 7. [id number] score of 5 (age 2, CHF, hypertension, CAD)- on Eliquis 8. 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 John. 1. Pulse generator: Medtronic Cutler XT DMR SureScan WN001, serial number [id number]. 2. Tyrex pouch reference: [id number], lot number [id number]. 3. Right atrial lead: Medtronic 5076-52 cm, serial number [id number]. 4. Left bundle lead: Medtronic 3830-69 seconds, serial number [id number]. 9. Bilateral internal carotid artery disease. 10. Dyslipidemia 11. Stage III CKD 12. Anemia 13. Lambda light chain multiple myeloma 14. History of left pleural effusion related to heart failure versus other. Status post left PleurX catheter placement with removal on July 27, 2019 15. NAHEED treated with CPAP 16. Hypothyroidism 17. Hypoalbuminemia 18. GERD 19. Obesity Admission for diastolic HF in November 2022, January 2023 with symptoms of SOB, "shakiness/panicky" Diuresed with furosemide. Eplerenone had been recently started when spironolactone causing gynecomastia. Patient recent discharged from [facility] on 01/23 after admission for acute on chronic HFpEF. He was treated with several doses of IV Lasix and symptoms improved. He was discharged on furosemide 40 mg daily and eplerenone at 12.5 mg daily. He admits to taking medications as prescribed and following low sodium diet. He weighs himself daily without significant change. Unfortunately upon returning home, patient reported worsening symptoms within 12-24 hours. He noted SOB at night with orthopnea, difficulty sleeping and "shakiness". He returned to the ER. Chest xray revealed pulm edema. HS troponin unremarkable. Stable renal function with creatinine of 1.4. Started on furosemide 40 mg IV BID Patient already received several doses of IV Lasix. Additional furosemide to be given this afternoon. He reports improved symptoms. SOB improving. Not as "shaky". No chest pain. No dizziness. No edema. Oxygen saturations improving. EKG demonstrates possible atrial fib with intermittent ventricular pacing. Allergies Allergy/AdvReac Type Severity Reaction Status Date / Time COVID-19 vaccine, mRNA, AdvReac Unknown probable Verified 01/24/23 15:06 [id number], L reaction: [From [place] ()] throat swelling Home Medications Medication Instructions Recorded Confirmed Type allopurinol 300 mg tablet 300 mg PO QAM 04/30/18 01/23/23 History atorvastatin 10 mg tablet 5 mg PO QAM 04/30/18 01/23/23 History cholecalciferol (vitamin D3) 50 2,000 unit PO QAM 04/30/18 01/23/23 History mcg (2,000 unit) capsule (Vitamin D3) citalopram 20 mg tablet (Celexa) 40 mg PO QAM 04/30/18 01/23/23 History hydralazine 50 mg tablet 25 mg PO TID 04/30/18 01/23/23 History omeprazole 40 mg capsule,delayed 40 mg PO DAILY 04/30/18 01/23/23 History release terazosin 5 mg capsule 5 mg PO HS 04/30/18 01/23/23 History aspirin 81 mg tablet,delayed 81 mg PO QAM 03/10/20 01/23/23 History release montelukast 10 mg tablet 10 mg PO QAM 05/07/21 01/23/23 History apixaban 2.5 mg tablet (Eliquis) 2.5 mg PO BID #60 tabs 07/13/21 01/23/23 Rx diphenoxylate-atropine 2.5 1 tab PO QID PRN Diarrhea 07/10/22 01/23/23 History mg-0.025 mg tablet potassium chloride 20 mEq 20 meq PO DAILY 11/29/22 01/23/23 History tablet,extended release furosemide 40 mg tablet 40 mg PO QAM #30 tabs 12/01/22 01/23/23 Rx magnesium oxide 400 mg PO BID #60 caps 12/01/22 01/23/23 Rx calcium carbonate 600 mg calcium 1,500 mg PO BID 01/23/23 01/23/23 History (1,500 mg) tablet cyanocobalamin (vitamin B-12) 1,000 mcg PO DAILY 01/23/23 01/23/23 History 1,000 mcg tablet eplerenone 25 mg tablet 12.5 mg PO DAILY 01/23/23 01/23/23 History hydrocortisone acetate 25 mg 25 mg MS HS PRN Hemorrhoids 01/23/23 01/23/23 History rectal suppository levothyroxine 50 mcg tablet 50 mcg PO DAILYBB 01/23/23 01/23/23 History triamcinolone acetonide 0.1 % 1 applic topical BID 01/23/23 01/23/23 History topical cream metoprolol succinate 25 mg 25 mg PO BID 30 days #60 tabs 01/26/23 Rx tablet,extended release 24 hr Patient History Medical History 2019 novel coronavirus-infected pneumonia (NCIP) ? HX Acute on chronic diastolic heart failure with preserved ejection fraction Anxiety and depression Atrial fibrillation with rapid ventricular response hx cardioversion...unsuccessful pacemaker placed jun 2021 BPH without obstruction/lower urinary tract symptoms CAD (coronary artery disease) Nonobstructive per cardiac cath 05/2010 Carpal tunnel syndrome Chronic diarrhea WORSENING...REASON FOR UPCOMING PROCEDURES Chronic diastolic CHF (congestive heart failure) Chronic sinusitis CKD (chronic kidney disease), stage III Diarrhea DVT prophylaxis Elevated troponin I level Escherichia coli infection HX GERD (gastroesophageal reflux disease) Gout hx History of DVT (deep vein thrombosis) History of paroxysmal supraventricular tachycardia ? HX History of pulmonary embolism Hyperlipidemia Hypertension Hypothyroidism Hypoxia Hypoxia Klebsiella infection HX Lambda light chain myeloma LBBB (left bundle branch block) ? HX Multiple myeloma dx 4 yr ago...current chemo tx monthly Neuralgia ON SIDE OF FACE Nonobstructive atherosclerosis of coronary artery By 05/2010 catheterization Obesity Obstructive sleep apnea on CPAP Pneumonia due to COVID-19 virus Prolonged QT interval ? HX Recurrent Clostridioides difficile infection Restless leg syndrome SOB (shortness of breath) SOB ON EXERTION...CT scan done 1-1.5 mon ago [facility]...form of blood clot and fluid ? extent , some kind of scarring - f/u with lung specialist - appointment not yet made Thrombocytopenia Thyroid disease Surgical History H/O sinus surgery unknown History of appendectomy History of bilateral knee arthroplasty History of cardiac cath ? 2009 - unable to verify - no known hx stent(s) History of cataract surgery RT/LEFT History of colonoscopy History of esophagogastroduodenoscopy (EGD) History of pacemaker jun 2021/? type/recent check unknown details History of revision of total knee arthroplasty ? side...d/t infection History of thoracentesis July [address] Jeffries. No bacterial growth or malignancy Pleurx catheter placed July 2019. Removed September 2019 History of tooth extraction History of total right hip arthroplasty Hx of cholecystectomy Status post total hip replacement, left Family History Father Heart disease Mother Diabetes Hypertension Brother Family hx of colon cancer Brother Family hx of colon cancer Social History Smoking Status: Never smoker Second Hand Exposure: No; Do You Dip or Chew Tobacco: No; Tobacco Cessation Education Requested by Patient: No Hx Alcohol Use: No Hx Substance Use: No Preferred Language: Guyanese Communication Ability: Effective Communication Ability Comment: PT DAUGHTER SHADY DAY, SIGNS CONSENTS (PT LIMITED COMPREHENSION) Or Rn Required: No Beliefs That Will Affect Care: None marital status: Current Living Situation: Spouse and Family Current Living Situation Comment: AND DAUGHTER How many Children do You have: 2 Other Information That Helps Us Care for You: No Feels Safe at Home: Yes Safety Concerns: Feels Safe At This Time Assistive Devices: Cane, CPAP and Walker Review of Systems Review of Systems: All systems reviewed & are unremarkable except as noted in HPI & below Physical Exam Constitutional: WD/WN, vitals as above + obese; no acute distress Neck: + thick neck Respiratory: no labored breathing Auscultation: + diminished lung sounds and + rales (faint bibasilar rales ) Cardiovascular: Rate/Rhythm: + irregularly irregular Heart Sounds: no murmur Vessels: no JVD Extremities: no edema Gastrointestinal (Abdomen): normal bowel sounds, soft, nontender, no hepatosp lenomegaly Skin: no rashes, warm and dry Results & Data Vital Signs (Past 12 Hours) Vital Signs Temp Pulse Pulse Resp BP Pulse Ox O2 Del Method 01/29/23 11:09 36.7 C 84 20 146/81 H 100 Room Air 01/29/23 10:05 60 01/29/23 07:23 36.8 C 58 L 20 162/78 H 95 Nasal Cannula 01/29/23 01:10 72 01/29/23 02:50 36.9 C 64 20 155/83 H 94 Nasal Cannula 01/29/23 01:00 Nasal Cannula 01/29/23 01:14 36.9 C 69 18 153/87 H 94 Nasal Cannula O2 Flow Rate 01/29/23 11:09 01/29/23 10:05 01/29/23 07:23 2 01/29/23 01:10 01/29/23 02:50 2 01/29/23 01:00 1 01/29/23 01:14 1 Laboratory Results Cardiac Enzymes 01/28/23 01/28/23 Range/Units 17:05 20:16 AST 22 (13-39) U/L Troponin I High Sens 11.0 (0-20) pg/ml B-Natriuretic Peptide 141 H (0-100) pg/ml Coagulation 01/28/23 Range/Units 20:16 B-Natriuretic Peptide 141 H (0-100) pg/ml CBC 01/28/23 01/29/23 Range/Units 17:05 05:31 WBC 7.33 7.05 (4.8-10.8) K/ul RBC 3.72 L 3.55 L (4.70-6.10) M/uL Hgb 12.8 L 12.0 L (14.0-18.0) g/dl Hct 36.8 L 35.0 L (42.0-52.0) % Plt Count 178 162 (130-400) K/uL Neut # (Auto) 5.17 4.54 (1.40-6.50) K/uL Lymph # (Auto) 1.04 L 1.27 (1.2-3.4) K/uL [place] # (Auto) 0.82 H 0.91 H (0.11-0.59) K/uL Eos # (Auto) 0.22 0.24 (0-0.50) K/uL Baso # (Auto) 0.06 0.07 (0-0.2) K/uL Comprehensive Metabolic Panel 01/28/23 01/29/23 Range/Units 17:05 05:31 Sodium 141 142 (136-145) mmol/L Potassium 3.9 3.4 L (3.5-5.1) mmol/L Chloride 103 102 (98-107) mmol/L Carbon Dioxide 32 34 H (21-32) mmol/L BUN 22 20 (6-23) mg/dl Creatinine 1.41 H 1.46 H (0.6-1.4) mg/dl Glucose 102 H 92 (70-99(Fasting)) mg/dl Calcium 8.3 L 8.2 L (8.6-10.3) mg/dl AST 22 (13-39) U/L ALT 14 (7-52) U/L Alkaline Phosphatase 55 (34-104) U/L Total Protein 5.7 L (6.0-8.3) gm/dl Albumin 4.0 (3.4-5.0) gm/dl Intake and Output 01/28/23 01/29/23 01/29/23 22:59 06:59 14:59 Intake Total 460 / 460 Output Total 1050 / 1050 125 / 125 Balance -1050 / -1050 335 / 335 Intake: Oral 460 / 460 Output: Urine 1050 / 1050 125 / 125 Other: Other Intake Source clears Weight 127.4 kg 126.5 kg Weight Measurement Method Built in [facility] Built in [facility] Diagnostic Findings Telemetry reviewed: possible atrial fibrillation with variable ventricular rates. EKG on admission: possible atrial fib with intermittent ventricular pacing. Chest X-Ray 01/28/23 16:53 XR chest 1V portable HISTORY: 82 years-old Male sob acute shortness of breath COMPARISON: 01/23/2023 TECHNIQUE: AP view the chest FINDINGS: Cardiac silhouette is enlarged. Unchanged mild right hemidiaphragmatic e levation. Pulmonary vascular congestion with interstitial coarsening. No pneumothorax or large pleural effusion. Left subclavian pacer. Bones appear grossly intact. IMPRESSION: Cardiomegaly with mild pulmonary edema. ACT 112: Negative or not required by law. The above report was generated using voice recognition software. It may contain grammatical, syntax or spelling errors. Electronically signed by: Luis M Mortensen M.D. 01/28/2023 5:28 PM Medications Administered Current Inpatient Medications Acetaminophen (Acetaminophen 325 Mg Tab) 650 mg PO Q4H PRN PRN Reason: Pain or Fever Stop: 02/28/23 01:08 Allopurinol (Allopurinol 300 Mg Tab) 300 mg PO QAM [facility] Stop: 02/28/23 08:59 Last Admin: 01/29/23 08:08 Dose: 300 mg Apixaban (Apixaban 2.5 Mg Tab) 2.5 mg PO BID [facility] Stop: 02/28/23 08:59 Last Admin: 01/29/23 08:08 Dose: 2.5 mg Aspirin (Aspirin 81 Mg Ectab) 81 mg PO QAM [facility] Stop: 02/28/23 08:59 Last Admin: 01/29/23 08:08 Dose: 81 mg Atorvastatin Calcium (Atorvastatin 10 Mg Tab) 5 mg PO QAM [facility] Stop: 02/28/23 08:59 Last Admin: 01/29/23 08:08 Dose: 5 mg Citalopram Hydrobromide (Citalopram 40 Mg Tab) 40 mg PO QAM [facility] Stop: 02/28/23 08:59 Last Admin: 01/29/23 08:08 Dose: 40 mg Cyanocobalamin (Cyanocobalamin (B-12) 500 Mcg Tablet) 1,000 mcg PO DAILY [facility] Stop: 02/28/23 08:59 Last Admin: 01/29/23 08:08 Dose: 1,000 mcg Hydralazine HCl (Hydralazine Hcl 25 Mg Tab) 25 mg PO TID [facility] Stop: 02/28/23 08:59 Last Admin: 01/29/23 13:12 Dose: 25 mg Levothyroxine Sodium (Levothyroxine Sodium 50 Mcg Tablet) 50 mcg PO DAILYBB [facility] Stop: 02/28/23 06:29 Last Admin: 01/29/23 05:52 Dose: 50 mcg Magnesium Oxide (Magnesium Oxide 400 Mg Tab) 400 mg PO BID [facility] Stop: 02/28/23 08:59 Last Admin: 01/29/23 08:08 Dose: 400 mg Metoprolol Succinate (Metoprolol Succ 25mg Ext Rel Tab) 25 mg PO BID [facility] Stop: 02/28/23 01:08 Last Admin: 01/29/23 08:07 Dose: 25 mg Miscellaneous (Eplerenone~Order Awaiting Action) 1 each N/A QS [facility] Stop: 02/28/23 01:29 Last Admin: 01/29/23 08:33 Dose: Not Given Montelukast Sodium (Montelukast Sodium 10 Mg Tablet) 10 mg PO QAM [facility] Stop: 02/28/23 08:59 Last Admin: 01/29/23 08:09 Dose: 10 mg Nitroglycerin (Nitroglycerin Sl 0.4 Mg/Tab Tab) 0.4 mg SL Q5M PRN PRN Reason: Chest Pain Stop: 02/28/23 01:08 Pantoprazole Sodium (Pantoprazole 40 Mg Tab) 40 mg PO DAILY [facility] Stop: 02/28/23 08:59 Last Admin: 01/29/23 08:08 Dose: 40 mg Potassium Chloride (Potassium Chloride Crtab 20 Meq Tabcr) 20 meq PO DAILY [facility] Stop: 02/28/23 08:59 Last Admin: 01/29/23 08:08 Dose: 20 meq Terazosin HCl (Terazosin Hcl 5 Mg Cap) 5 mg PO HS [facility] Stop: 02/28/23 20:59 Vitamin D (Cholecalciferol 1,000 Units 25 Mcg Tab) 2,000 units PO QAM [facility] Stop: 02/28/23 08:59 Last Admin: 01/29/23 08:07 Dose: 2,000 units
[2023-01-29] MEDS ORDERED: FUROSEMIDE 40 MG/4 ML VIAL IV ONE (15:19)
[2023-01-29] MEDS: TERAZOSIN HCL 5 MG CAP PO SCH (20:38)
[2023-01-30] MEDS: LEVOTHYROXINE SODIUM 75 MCG TABLET PO SCH (06:05)
--- NOTE | 2023-01-30 07:35 | Electrocardiogram Report ---
Test Reason : Blood Pressure : / mmHG Vent. Rate : 064 BPM Atrial Rate : 065 BPM P-R Int : 324 ms QRS Dur : 146 ms QT Int : 468 ms P-R-T Axes : 000 -40 130 degrees QTc Int : 482 ms Atrial-paced rhythm with prolonged AV conduction with occasional Premature ventricular complexes Left bundle branch block Abnormal ECG When compared with ECG of 28-JAN-2023 16:51, Electronic atrial pacemaker has replaced Atrial fibrillation Confirmed by Akash Freire ([id number]) on 01/30/2023 7:35:17 AM Referred By: REFERRED SELF Confirmed By:Akash Freire
[2023-01-30] MEDS: METOPROLOL SUCC 25MG EXT REL TAB PO SCH ×2 (08:06→20:53)
[2023-01-30] MEDS: ASPIRIN 81 MG ECTAB PO SCH (08:06)
[2023-01-30] MEDS: CYANOCOBALAMIN (B-12) 500 MCG TABLET PO SCH (08:07)
[2023-01-30] MEDS: POTASSIUM CHLORIDE CRTAB 20 MEQ TABCR PO SCH (08:07)
[2023-01-30] MEDS: APIXABAN 2.5 MG TAB PO SCH ×2 (08:07→20:54)
[2023-01-30] MEDS: hydrALAZINE HCL 25 MG TAB PO SCH ×3 (08:07→20:53)
[2023-01-30] MEDS: MAGNESIUM OXIDE 400 MG TAB PO SCH ×2 (08:07→20:53)
[2023-01-30] MEDS: PANTOprazole 40 MG TAB PO SCH (08:08)
[2023-01-30] MEDS: CHOLECALCIFEROL 1,000 UNITS 25 MCG TAB PO SCH (08:08)
[2023-01-30] MEDS: allopurinoL 300 MG TAB PO SCH (08:08)
[2023-01-30] MEDS: CITALOPRAM 40 MG TAB PO SCH (08:08)
[2023-01-30] MEDS: EPLERENONE 25 MG PO SCH (08:08)
[2023-01-30] MEDS: MONTELUKAST SODIUM 10 MG TABLET PO SCH (08:08)
[2023-01-30] MEDS: ATORVASTATIN 10 MG TAB PO SCH (08:08)
[2023-01-30 12:07] LABS: BUN Creatinine Ratio 16.4 (10-20); Calcium 7.9 mg/dl (8.6-10.3); Creatinine Clr Calc Pharmacy 42.5 ml/min; Est GFR (African American) 42.3 ml/min; Est GFR (Non-African American) 36.5 ml/min; Magnesium 1.7 mg/dl (1.7-2.4); Potassium 3.4 mmol/L (3.5-5.1)
--- NOTE | 2023-01-30 13:09 | Cardiology Progress Note ---
Date of Service January 30, 2023 Assessment & Plan (1) Acute on chronic diastolic CHF (congestive heart failure): (2) Atrial fibrillation: (3) LBBB (left bundle branch block): (4) Cardiac pacemaker in situ: Plan Patient admitted for recurrent SOB/hypoxia, pulm edema on chest xray consistent with acute on chronic HFpEF. Treated with several doses of IV furosemide. Good outputs and symptoms improved. Labs were pending at time of evaluation. Results now reviewed and creatinine with slight increase from 1.5 to 1.7. Will hold off on further IV diuretics today Transition back to oral furosemide 40 mg daily with eplerenone Additional Supplemental potassium ordered. Daily weight with standing scale. Fluid restriction of 1500 ml. Patient admits he was not using CPAP at home prior to admission. he will resume. If BP remains low, consider dose reduction in hydralazine. History of PAF noted with increasing burden on device interrogations. Metoprolol increased to 37.5 mg BID. Afib resolved this morning Continue Eliquis Continue all other home cardiac medications including ASA and statin. Case discussed with Dr. Galindo I spent a total of 65 minutes on the date of service in preparation, delivery, and documentation of the care provided to this patient, excluding any time spent in the performance of separately billed services. Meri Portillo PA-C Department of Cardiology, [facility] This chart was completed in part utilizing Speech Voice Recognition Software. Grammatical errors, random word insertions, pronoun errors, and incomplete sentences are an occasional consequence of this system due to software limitations, ambient noise, and hardware issues. Any formal questions or concerns about the content, text, or information contained within the body of this dictation should be directly addressed to the provider for clarification. Admission and Anticipated Discharge Date Admission Date: January 28, 2023 Supervising Physician Co-Signing Physician Notes Supervising Physician Attestation: I have personally performed a history and physical examination on the patient. I agree with the physician bookkeeping assistant's findings and plan as documented with the following additions. Subjective: SOB subjectively improved since arrival to the hospital. Exam: CV: regular rhythm ( V paced on telemetry), no edema, lungs clar Data: Device check reviewed with [employer], normal pacemaker function Telemetry today reveals underlying sinus rhythm with ventricular pacing Creatinine increased to 1.7, potassium 3.4 Assessment and Plan: Acute on chronic HFpEF PAF Ventricular pacing -IV furosemide -cautiously increase metoprolol -Proceed with extra dose of potassium supplementation, received a dose this morning. Continue oral magnesium. DVT prophylaxis: on Brigette I spent a total of 20 minutes on the date of service in preparation, delivery, and documentation of the care provided to this patient, excluding any time spent in the performance of separately billed services. Kvng Galindo, DO Subjective Patient resting in chair. Feeling well. reports he slept well last night. Denies chest pain. Reports SOB improved. Wearing supplemental O2. No edema. No orthopnea. No fever, cough, chills. Review of Systems Review of Systems: All systems reviewed & are unremarkable except as noted in HPI & below Physical Exam Constitutional: WD/WN, vitals as above + obese; no acute distress Neck: + thick neck Respiratory: no labored breathing Auscultation: + diminished lung sounds and + rales (faint bibasilar rales ) Cardiovascular: Rate/Rhythm: regular rate, regular rhythm and + irregularly irregular Heart Sounds: no murmur Vessels: no JVD Extremities: no edema Gastrointestinal (Abdomen): normal bowel sounds, soft, nontender, no hepatosplenomegaly Skin: no rashes, warm and dry Results & Data Vital Signs (Past 12 Hours) Vital Signs Temp Pulse Resp BP Pulse Ox O2 Del Method 01/30/23 11:55 36.8 C 34 L 16 115/57 L 97 Room Air 01/30/23 08:13 36.7 C 42 L 16 113/71 97 01/30/23 03:00 36.5 C 50 L 18 101/63 96 Nasal Cannula Laboratory Results Comprehensive Metabolic Panel 01/30/23 Range/Units 11:33 Sodium 140 (136-145) mmol/L Potassium 3.4 L (3.5-5.1) mmol/L Chloride 102 (98-107) mmol/L Carbon Dioxide 32 (21-32) mmol/L BUN 28 H (6-23) mg/dl Creatinine 1.71 H (0.6-1.4) mg/dl Glucose 135 H (70-99(Fasting)) mg/dl Calcium 7.9 L (8.6-10.3) mg/dl Intake and Output 01/29/23 01/30/23 01/30/23 22:59 06:59 14:59 Intake Total 400 / 1110 250 / 1110 Output Total 200 / 875 550 / 875 500 / 500 Balance 200 / 235 -300 / 235 -500 / -500 Intake: Oral 400 / 1110 250 / 1110 Output: Urine 200 / 875 550 / 875 500 / 500 Other: Weight 126.5 kg Weight Measurement Method Built in [facility] Diagnostic Findings Telemetry: Current appears [place] sensed, ventricular paced. Regular rhythm.
[2023-01-30] MEDS ORDERED: POTASSIUM CHLORIDE CRTAB 20 MEQ TABCR PO STA (15:12)
--- NOTE | 2023-01-30 15:36 | Hospitalist Progress Note ---
Date of Service January 30, 2023 Assessment & Plan (1) Acute on chronic diastolic heart failure with preserved ejection fraction: Plan: per Dr. Jeffery's notes with addendum: 82-year-old male with past medical significant for hyperlipidemia, hypothyroidism, gout, obstructive sleep apnea on CPAP nightly, chronic diastolic CHF, PAF, tachybradycardia syndrome, s/p pacemaker, history of 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, hypertension, chronic kidney disease stage III, history of CAD, left bundle branch block, morbid obesity, GERD, vitamin B12 deficiency, BPH, osteoarthritis, restless leg syndrome, history of poison annabelle dermatitis, history of monoclonal paraproteinemia, history of angioedema, history of C. difficile, history of depression recently in the hospital for acute diastolic CHF treated with IV Lasix and discharged back on his home Lasix and Meprolone and Toprol on January 26 presents again today with shortness of breath says going on for last 2 days and also abdominal discomfort. ACUTE ON CHRONIC DIASTOLIC CHF EXACERBATION given IV Lasix in the ER on admission and this morning Patient seem to be responding to diuresis No crackles auscultated today, leg edema also improving Blood pressure on the lower side, creatinine bumped up to 1.7 Like to resume oral Lasix tomorrow pending blood pressure and renal function Appreciate cardiology's recommendations ABDOMINAL DISCOMFORT CT abdomen okay Tolerating heart healthy diet well Obstructive sleep apnea CPAP nightly A-fib Metoprolol increased Continue Eliquis Chronic kidney stage III Creatinine from 1.4, now 1.7 Monitor closely Gout Allopurinol Hyperlipidemia On statin Hypertension on Toprol, hydralazine and terazosin Hypothyroidism on Synthroid BPH on terazosin Tachybradycardia syndrome s/p pacemaker GERD on omeprazole DVT prophylaxis on Eliquis Disposition Pending Anticipate discharge to home medically stable Full code (2) Abdominal pain: Admission and Anticipated Discharge Date Admission Date: January 28, 2023 Subjective Follow-up for acute CHF exacerbation, etc. Seen sitting up in bed side chair, comfortable, on 2 L of oxygen States he feels somewhat better compared to yesterday Breathing seems to be improving No fevers or chills, cough, sputum production Leg swelling improving No other new symptoms Review of Systems Review of Systems: all noted and negative except for above Physical Exam Physical Exam: General- oriented x 3, not in distress, speaks in sentences with no effort or accessory muscle use Eyes- anicteric Neck- no JVD Lungs- clear breath sounds bilaterally, no crackles noted, no wheezing Heart- normal rate, regular rhythm; no murmurs Abdomen- normal bowel sounds, nondistended, soft, nontender Extremities-trace pretibial edema, no calf tenderness Neuro- alert, oriented x 3; no gross focal neurologic deficits Skin- warm & dry Results & Data Results & Data Vital Signs (Past 12 Hours) Vital Signs Temp Resp BP Pulse Ox O2 Del Method 01/30/23 11:55 36.8 C 16 115/57 L 97 Room Air 01/30/23 08:13 36.7 C 16 113/71 97 all noted and reviewed including below
[2023-01-30] MEDS: TERAZOSIN HCL 5 MG CAP PO SCH (20:54)
[2023-01-31] MEDS: LEVOTHYROXINE SODIUM 75 MCG TABLET PO SCH (05:51)
[2023-01-31 07:09] LABS: Anion Gap 4 (3-11); BUN Creatinine Ratio 19.4 (10-20); Blood Urea Nitrogen 32 mg/dl (6-23); Calcium 7.9 mg/dl (8.6-10.3); Carbon Dioxide 35 mmol/L (21-32); Chloride 104 mmol/L (98-107); Creatinine Clr Calc Pharmacy 44.1 ml/min; Est GFR (African American) 44.1 ml/min; Est GFR (Non-African American) 38.1 ml/min; Glucose 99 mg/dl (70-99(Fasting)); Magnesium 1.9 mg/dl (1.7-2.4); Sodium 143 mmol/L (136-145)
[2023-01-31] MEDS: POTASSIUM CHLORIDE CRTAB 20 MEQ TABCR PO SCH (08:00)
[2023-01-31] MEDS: allopurinoL 300 MG TAB PO SCH (08:00)
[2023-01-31] MEDS: CHOLECALCIFEROL 1,000 UNITS 25 MCG TAB PO SCH (08:00)
[2023-01-31] MEDS: CYANOCOBALAMIN (B-12) 500 MCG TABLET PO SCH (08:00)
[2023-01-31] MEDS: CITALOPRAM 40 MG TAB PO SCH (08:00)
[2023-01-31] MEDS: ATORVASTATIN 10 MG TAB PO SCH (08:00)
[2023-01-31] MEDS: hydrALAZINE HCL 25 MG TAB PO SCH ×3 (08:01→20:27)
[2023-01-31] MEDS: MAGNESIUM OXIDE 400 MG TAB PO SCH ×2 (08:01→20:28)
[2023-01-31] MEDS: APIXABAN 2.5 MG TAB PO SCH ×2 (08:01→20:29)
[2023-01-31] MEDS: ASPIRIN 81 MG ECTAB PO SCH (08:01)
[2023-01-31] MEDS: MONTELUKAST SODIUM 10 MG TABLET PO SCH (08:01)
[2023-01-31] MEDS: METOPROLOL SUCC 25MG EXT REL TAB PO SCH ×2 (08:01→20:26)
[2023-01-31] MEDS: EPLERENONE 25 MG PO SCH (08:01)
[2023-01-31] MEDS: PANTOprazole 40 MG TAB PO SCH (08:01)
[2023-01-31] MEDS: TORSEMIDE 10 MG TAB PO SCH (09:26)
--- NOTE | 2023-01-31 10:26 | Cardiology Progress Note ---
Date of Service January 31, 2023 Assessment & Plan (1) Acute on chronic diastolic CHF (congestive heart failure): (2) Atrial fibrillation: (3) LBBB (left bundle branch block): (4) Cardiac pacemaker in situ: Plan Patient admitted for recurrent SOB/hypoxia, pulm edema on chest xray consistent with acute on chronic HFpEF. Treated with several doses of IV furosemide. Good outputs and symptoms improved. Transition to oral torsemide 40 mg daily this morning Continue eplerenone and potassium supplement. Daily weight with standing scale. Fluid restriction of 1500 ml. Patient admits he was not using CPAP at home prior to admission. He will resume. History of PAF noted with increasing burden on device interrogations. Metoprolol increased to 37.5 mg BID. Afib episodes improve. Continue Eliquis If BP trends lower, could reduce hydralazine dose. Continue all other home cardiac medications including ASA and statin. Still requiring supplemental O2 intermittently. Recommend 2 step prior to discharge. Likely stable for discharge today, after 2 step to see if oxygen is needed. Continue meds with changes as noted above Will sign off. Please contact baton twirler bunch breaker machine operator with additional questions or concerns. Case discussed with Dr. Galindo I spent a total of 65 minutes on the date of service in preparation, delivery, and documentation of the care provided to this patient, excluding any time spent in the performance of separately billed services. Meri Portillo PA-C Department of Cardiology, [facility] This chart was completed in part utilizing Speech Voice Recognition Software. Grammatical errors, random word insertions, pronoun errors, and incomplete sentences are an occasional consequence of this system due to software limitations, ambient noise, and hardware issues. Any formal questions or concerns about the content, text, or information contained within the body of this dictation should be directly addressed to the provider for clarification. Admission and Anticipated Discharge Date Admission Date: January 28, 2023 Supervising Physician Co-Signing Physician Notes Supervising Physician Attestation: I have personally performed a history and physical examination on the patient. I agree with the physician assistant floor covering printer's findings and plan as documented with the following additions. Subjective: SOB subjectively improved since arrival to the hospital. Exam: CV: regular rhythm ( V paced on telemetry), no edema, lungs clar Data: Device check reviewed with [employer], normal pacemaker function Telemetry today reveals underlying sinus rhythm with ventricular pacing Creatinine increased to 1.7, potassium 3.4 Assessment and Plan: Acute on chronic HFpEF PAF Ventricular pacing Data: BUN 32, creatinine 1.65, potassium 4 Metoprolol succinate 37.5 mg twice daily, eplerenone 12.5 mg daily, torsemide 40 mg p.o. Agree with two-step to assess for home oxygen candidacy. Possible discharge today, 04/03/2023. DVT prophylaxis: on Brigette I spent a total of 20 minutes on the date of service in preparation, delivery, and documentation of the care provided to this patient, excluding any time spent in the performance of separately billed services. Kvng Galindo, DO Subjective Patient feeling well this morning. SOB improved. No orthopnea, PND or edema. No cough. No chest pain. "shakiness" improved. Review of Systems Review of Systems: All systems reviewed & are unremarkable except as noted in HPI & below Physical Exam Constitutional: WD/WN, vitals as above + obese; no acute distress Neck: + thick neck Respiratory: no labored breathing Auscultation: + diminished lung sounds (otherwise clear) Cardiovascular: Rate/Rhythm: regular rate, regular rhythm and + irregularly irregular Heart Sounds: no murmur Vessels: no JVD Extremities: no edema Gastrointestinal (Abdomen): normal bowel sounds, soft, nontender, no hepatosplenomegaly Skin: no rashes, warm and dry Results & Data Vital Signs (Past 12 Hours) Vital Signs Temp Pulse Pulse Pulse Pulse Resp Resp 01/31/23 09:59 91 H 64 22 01/31/23 08:09 36.9 C 73 18 01/31/23 05:06 01/31/23 05:05 67 01/31/23 03:22 36.6 C 70 20 01/31/23 00:00 67 01/30/23 23:00 36.6 C 73 17 Resp BP Pulse Ox Pulse Ox Pulse Ox O2 Del Method O2 Flow Rate 01/31/23 09:59 16 90 94 01/31/23 08:09 107/68 97 Nasal Cannula 2 01/31/23 05:06 Nasal Cannula 2 01/31/23 05:05 01/31/23 03:22 116/62 97 Nasal Cannula 01/31/23 00:00 01/30/23 23:00 115/66 96 Nasal Cannula Laboratory Results Comprehensive Metabolic Panel 0701/31/23 01/31/23 Range/Units 11:33 05:49 07:25 Sodium 140 143 (136-145) mmol/L Potassium 3.4 L TNP 4.0 (3.5-5.1) mmol/L Chloride 102 104 (98-107) mmol/L Carbon Dioxide 32 35 H (21-32) mmol/L BUN 28 H 32 H (6-23) mg/dl Creatinine 1.71 H 1.65 H (0.6-1.4) mg/dl Glucose 135 H 99 (70-99(Fasting)) mg/dl Calcium 7.9 L 7.9 L (8.6-10.3) mg/dl Intake and Output 01/30/23 01/31/23 01/31/23 22:59 06:59 14:59 Intake Total 830 / 1280 Output Total 300 / 800 Balance 830 / 480 -300 / 480 Intake: Oral 830 / 1280 Output: Urine 300 / 800 Other: Weight 126.7 kg Weight Measurement Method Built in [facility] Diagnostic Findings Telemetry reviewed: sinus with ventricular pacing. Medications Administered Current Inpatient Medications Acetaminophen (Acetaminophen 325 Mg Tab) 650 mg PO Q4H PRN PRN Reason: Pain or Fever Stop: 02/28/23 01:08 Allopurinol (Allopurinol 300 Mg Tab) 300 mg PO [facility] Stop: 02/28/23 08:59 Last Admin: 01/31/23 08:00 Dose: 300 mg Apixaban (Apixaban 2.5 Mg Tab) 2.5 mg PO BID [facility] Stop: 02/28/23 08:59 Last Admin: 01/31/23 08:01 Dose: 2.5 mg Aspirin ([facility] 81 Mg [facility]ab) [facility] Stop: 02/28/23 08:59 Last Admin: 01/31/23 08:01 Dose: 81 mg Atorvastatin Calcium ([facility]vastatin 10 Mg Tab) [facility] Stop: 02/28/23 08:59 Last Admin: 01/31/23 08:00 Dose: 5 mg Citalopram Hydrobromide (Citalopram 40 Mg Tab) [facility] Stop: 02/28/23 08:59 Last Admin: 01/31/23 08:00 Dose: 40 mg Cyanocobalamin (Cyanocobalamin (B-12) 500 Mcg Tablet) 1,000 mcg PO DAILY [facility] Stop: 02/28/23 08:59 Last Admin: 01/31/23 08:00 Dose: 1,000 mcg Eplerenone (Eplerenone 25mg Tablets) 0.5 each PO DAILY [facility] Stop: 03/01/23 08:59 Last Admin: 01/31/23 08:01 Dose: 0.5 each Hydralazine HCl (Hydralazine Hcl 25 Mg Tab) 25 mg PO TID [facility] Stop: 02/28/23 08:59 Last Admin: 01/31/23 08:01 Dose: 25 mg Levothyroxine Sodium (Levothyroxine Sodium 75 Mcg Tablet) 75 mcg PO DAILYBB [facility] Stop: 03/01/23 06:29 Last Admin: 01/31/23 05:51 Dose: 75 mcg Magnesium Oxide (Magnesium Oxide 400 Mg Tab) 400 mg PO BID [facility] Stop: 02/28/23 08:59 Last Admin: 01/31/23 08:01 Dose: 400 mg Metoprolol Succinate (Metoprolol Succ 25mg Ext Rel Tab) 37.5 mg PO BID [facility] Stop: 02/28/23 20:59 Last Admin: 01/31/23 08:01 Dose: 37.5 mg Montelukast Sodium (Montelukast Sodium 10 Mg Tablet) 10 mg PO QAM [facility] Stop: 02/28/23 08:59 Last Admin: 01/31/23 08:01 Dose: 10 mg Nitroglycerin (Nitroglycerin Sl 0.4 Mg/Tab Tab) 0.4 mg SL Q5M PRN PRN Reason: Chest Pain Stop: 02/28/23 01:08 Pantoprazole Sodium (Pantoprazole 40 Mg Tab) 40 mg PO DAILY [facility] Stop: 02/28/23 08:59 Last Admin: 01/31/23 08:01 Dose: 40 mg Potassium Chloride (Potassium Chloride Crtab 20 Meq Tabcr) 20 meq PO DAILY [facility] Stop: 02/28/23 08:59 Last Admin: 01/31/23 08:00 Dose: 20 meq Terazosin HCl (Terazosin Hcl 5 Mg Cap) 5 mg PO HS [facility] Stop: 02/28/23 20:59 Last Admin: 01/30/23 20:54 Dose: 5 mg Torsemide (Torsemide 10 Mg Tab) 40 mg PO QAM [facility] Stop: 03/02/23 08:59 Last Admin: 01/31/23 09:26 Dose: 40 mg Vitamin D (Cholecalciferol 1,000 Units 25 Mcg Tab) 2,000 units PO [facility] Stop: 02/28/23 08:59 Last Admin: 01/31/23 08:00 Dose: 2,000 units
--- NOTE | 2023-01-31 16:46 | Hospitalist Progress Note ---
Date of Service January 31, 2023 Assessment & Plan (1) Acute on chronic diastolic heart failure with preserved ejection fraction: Plan: per Dr. Jeffery's notes with addendum: 82-year-old male with past medical significant for hyperlipidemia, hypothyroidism, gout, obstructive sleep apnea on CPAP nightly, chronic diastolic CHF, PAF, tachybradycardia syndrome, s/p pacemaker, history of 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, hypertension, chronic kidney disease stage III, history of CAD, left bundle branch block, morbid obesity, GERD, vitamin B12 deficiency, BPH, osteoarthritis, restless leg syndrome, history of poison annabelle dermatitis, history of monoclonal paraproteinemia, history of angioedema, history of C. difficile, history of depression recently in the hospital for acute diastolic CHF treated with IV Lasix and discharged back on his home Lasix and Meprolone and Toprol on January 26 presents again today with shortness of breath says going on for last 2 days and also abdominal discomfort. ACUTE ON CHRONIC DIASTOLIC CHF EXACERBATION given IV Lasix in the ER on admission and this morning Patient seem to be responding to diuresis Transition to torsemide 40 mg p.o. daily Weaned off oxygen supplement Continue to monitor ABDOMINAL DISCOMFORT CT abdomen okay Tolerating heart healthy diet well Obstructive sleep apnea CPAP nightly A-fib Metoprolol increased Continue Eliquis Chronic kidney stage III Creatinine from 1.4, now 1.7 Monitor closely Gout Allopurinol Hyperlipidemia On statin Hypertension on Toprol, hydralazine and terazosin Hypothyroidism on Synthroid BPH on terazosin Tachybradycardia syndrome s/p pacemaker GERD on omeprazole DVT prophylaxis on Eliquis Disposition Pending Anticipate discharge to home medically stable Full code (2) Abdominal pain: Admission and Anticipated Discharge Date Admission Date: January 28, 2023 Subjective Follow-up for acute CHF, etc. Seen resting in chair, comfortable, not distressed States he feels fine overall Breathing is better, ambulating better No other new symptoms Review of Systems Review of Systems: all noted and negative except for above Physical Exam Physical Exam: General- oriented x 3, not in distress, speaks in sentences with no effort or accessory muscle use Eyes- anicteric Neck- no JVD Lungs- clear breath sounds bilaterally Heart- normal rate, regular rhythm; no murmurs Abdomen- normal bowel sounds, nondistended, soft, nontender Extremities- no pretibial edema, no calf tenderness Neuro- alert, oriented x 3; no gross focal neurologic deficits Skin- warm & dry Results & Data Results & Data Vital Signs (Past 12 Hours) Vital Signs Temp Pulse Pulse Pulse Pulse Resp Resp 01/31/23 16:17 36.8 C 59 L 18 01/31/23 15:27 62 01/31/23 11:55 37.2 C 57 L 20 01/31/23 08:00 01/31/23 09:59 91 H 64 22 01/31/23 08:09 36.9 C 73 18 01/31/23 05:06 01/31/23 05:05 67 Resp BP Pulse Ox Pulse Ox Pulse Ox O2 Del Method O2 Flow Rate 01/31/23 16:17 126/70 93 Room Air 01/31/23 15:27 01/31/23 11:55 131/70 92 Room Air 01/31/23 08:00 Nasal Cannula 3 01/31/23 09:59 16 90 94 01/31/23 08:09 107/68 97 Nasal Cannula 2 01/31/23 05:06 Nasal Cannula 2 01/31/23 05:05 all noted and reviewed including below
[2023-01-31] MEDS: TERAZOSIN HCL 5 MG CAP PO SCH (20:28)
[2023-02-01] MEDS: LEVOTHYROXINE SODIUM 75 MCG TABLET PO SCH (05:35)
[2023-02-01 06:39] LABS: BUN Creatinine Ratio 20.4 (10-20); Est GFR (African American) 35.9 ml/min; Est GFR (Non-African American) 30.9 ml/min; Magnesium 1.7 mg/dl (1.7-2.4); Potassium 3.8 mmol/L (3.5-5.1)
[2023-02-01] MEDS: TORSEMIDE 10 MG TAB PO SCH (08:04)
[2023-02-01] MEDS: POTASSIUM CHLORIDE CRTAB 20 MEQ TABCR PO SCH (08:04)
[2023-02-01] MEDS: PANTOprazole 40 MG TAB PO SCH (08:04)
[2023-02-01] MEDS: APIXABAN 2.5 MG TAB PO SCH ×2 (08:04→21:43)
[2023-02-01] MEDS: allopurinoL 300 MG TAB PO SCH (08:04)
[2023-02-01] MEDS: MONTELUKAST SODIUM 10 MG TABLET PO SCH (08:04)
[2023-02-01] MEDS: MAGNESIUM OXIDE 400 MG TAB PO SCH ×2 (08:04→21:42)
[2023-02-01] MEDS: CHOLECALCIFEROL 1,000 UNITS 25 MCG TAB PO SCH (08:04)
[2023-02-01] MEDS: EPLERENONE 25 MG PO SCH (08:05)
[2023-02-01] MEDS: CYANOCOBALAMIN (B-12) 500 MCG TABLET PO SCH (08:05)
[2023-02-01] MEDS: CITALOPRAM 40 MG TAB PO SCH (08:05)
[2023-02-01] MEDS: ASPIRIN 81 MG ECTAB PO SCH (08:06)
[2023-02-01] MEDS: hydrALAZINE HCL 25 MG TAB PO SCH ×3 (08:06→21:45)
[2023-02-01] MEDS: METOPROLOL SUCC 25MG EXT REL TAB PO SCH ×2 (08:06→21:43)
[2023-02-01] MEDS: ATORVASTATIN 10 MG TAB PO SCH (08:06)
--- NOTE | 2023-02-01 21:30 | Hospitalist Progress Note ---
Date of Service February 01, 2023 Assessment & Plan (1) Acute on chronic diastolic heart failure with preserved ejection fraction: Plan: per Dr. Jeffery's notes with addendum: 82-year-old male with past medical significant for hyperlipidemia, hypothyroidism, gout, obstructive sleep apnea on CPAP nightly, chronic diastolic CHF, PAF, tachybradycardia syndrome, s/p pacemaker, history of 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, hypertension, chronic kidney disease stage III, history of CAD, left bundle branch block, morbid obesity, GERD, vitamin B12 deficiency, BPH, osteoarthritis, restless leg syndrome, history of poison annabelle dermatitis, history of monoclonal paraproteinemia, history of angioedema, history of C. difficile, history of depression recently in the hospital for acute diastolic CHF treated with IV Lasix and discharged back on his home Lasix and Meprolone and Toprol on January 26 presents again today with shortness of breath says going on for last 2 days and also abdominal discomfort. ACUTE ON CHRONIC DIASTOLIC CHF EXACERBATION given IV Lasix Diuresed well Transition from IV Lasix to p.o. torsemide 40 mg daily Remained stable Weaned off of oxygen Creatinine increased from baseline of 1.5, now 1.9 Monitor renal function closely while on torsemide 40 mg daily Repeat BMP on follow-up with primary care physician this coming week ABDOMINAL DISCOMFORT CT abdomen okay Tolerating heart healthy diet well Obstructive sleep apnea CPAP nightly A-fib Metoprolol increased Continue Eliquis Chronic kidney stage III Creatinine from 1.4, 1.9-2.0 Monitor closely while on torsemide 40 mg p.o. daily Repeat BMP and follow-up with PCP this week Gout Allopurinol Hyperlipidemia On statin Hypertension on Toprol, hydralazine and terazosin Hypothyroidism on Synthroid BPH on terazosin Tachybradycardia syndrome s/p pacemaker GERD on omeprazole DVT prophylaxis on Eliquis Disposition Discharged home Follow-up with PCP in 1 week Follow-up with cardiology in 3 to 4 weeks plan of care discussed with patient and his daughter over the phone in detail and at length all questions answered They are understanding, agreeable, comfortable with the plan of care Full code (2) Abdominal pain: Admission and Anticipated Discharge Date Admission Date: January 28, 2023 Subjective Follow-up for acute CHF, etc. Seen resting in bed, comfortable, not in distress States he feels fine overall No shortness of breath, palpitations, dizziness Ambulating with no problems No other new symptoms States he is ready for discharge Review of Systems Review of Systems: all noted and negative except for above Physical Exam Physical Exam: General- oriented x 3, not in distress, speaks in sentences with no effort or accessory muscle use Eyes- anicteric Neck- no JVD Lungs- clear breath sounds BL Heart- normal rate, regular rhythm; no murmurs Abdomen- normal bowel sounds, nondistended, soft, nontender Extremities- mild pedal edema, no calf tenderness Neuro- alert, oriented x 3; no gross focal neurologic deficits Skin- warm & dry Results & Data Results & Data Vital Signs (Past 12 Hours) Vital Signs Temp Pulse Pulse Pulse Resp BP BP 02/01/23 20:24 37.1 C 61 18 142/79 H 02/01/23 15:34 87 02/01/23 15:21 36.9 C 74 20 148/89 H 02/01/23 12:00 37.1 C 59 L 18 125/70 Pulse Ox O2 Del Method 02/01/23 20:24 94 Room Air 02/01/23 15:34 02/01/23 15:21 9 L Room Air 02/01/23 12:00 95 Room Air all noted and reviewed including below
[2023-02-01] MEDS: TERAZOSIN HCL 5 MG CAP PO SCH (21:45)
[2023-02-02] MEDS: LEVOTHYROXINE SODIUM 75 MCG TABLET PO SCH (05:34)
[2023-02-02 06:26] LABS: BUN Creatinine Ratio 22.5 (10-20); Calcium 8.2 mg/dl (8.6-10.3); Creatinine Clr Calc Pharmacy 35.6 ml/min; Est GFR (African American) 34.2 ml/min; Est GFR (Non-African American) 29.5 ml/min; Magnesium 1.7 mg/dl (1.7-2.4); Potassium 3.6 mmol/L (3.5-5.1)
[2023-02-02] MEDS: hydrALAZINE HCL 25 MG TAB PO SCH (07:56)
[2023-02-02] MEDS: MONTELUKAST SODIUM 10 MG TABLET PO SCH (07:57)
[2023-02-02] MEDS: ASPIRIN 81 MG ECTAB PO SCH (07:57)
[2023-02-02] MEDS: ATORVASTATIN 10 MG TAB PO SCH (07:57)
[2023-02-02] MEDS: METOPROLOL SUCC 25MG EXT REL TAB PO SCH (07:58)
[2023-02-02] MEDS: APIXABAN 2.5 MG TAB PO SCH (07:58)
[2023-02-02] MEDS: CHOLECALCIFEROL 1,000 UNITS 25 MCG TAB PO SCH (07:58)
[2023-02-02] MEDS: CITALOPRAM 40 MG TAB PO SCH (07:58)
[2023-02-02] MEDS: PANTOprazole 40 MG TAB PO SCH (07:58)
[2023-02-02] MEDS: CYANOCOBALAMIN (B-12) 500 MCG TABLET PO SCH (07:58)
[2023-02-02] MEDS: EPLERENONE 25 MG PO SCH (07:59)
[2023-02-02] MEDS: MAGNESIUM OXIDE 400 MG TAB PO SCH (07:59)
[2023-02-02] MEDS: POTASSIUM CHLORIDE CRTAB 20 MEQ TABCR PO SCH (07:59)
[2023-02-02] MEDS: allopurinoL 300 MG TAB PO SCH (09:18)
[2023-02-02] MEDS: TORSEMIDE 10 MG TAB PO SCH (10:05)
--- NOTE | 2023-02-02 14:19 | Discharge Summary ---
Discharge Summary Date of Service February 02, 2023 Notes For Next Care Provider Medication Changes From Visit Furosemide discontinued. Torsemide 40 mg daily started Admission HPI Per Admitting Provider 82-year-old male with past medical significant for hyperlipidemia, hypothyroidism, gout, obstructive sleep apnea on CPAP nightly, chronic diastolic CHF, PAF, tachybradycardia syndrome, s/p pacemaker, history of 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, hypertension, chronic kidney disease stage III, history of CAD, left bundle branch block, morbid obesity, GERD, vitamin B12 deficiency, BPH, osteoarthritis, restless leg syndrome, history of poison annabelle dermatitis, history of monoclonal paraproteinemia, history of angioedema, history of C. difficile, history of depression recently in the hospital for acute diastolic CHF treated with IV Lasix and discharged back on his home Lasix and Meprolone and Toprol on January 26 presents again today with shortness of breath says going on for last 2 days and also abdominal discomfort. Received IV Lasix in the ER. States that shortness of breath improved. Has mild abdominal discomfort. Denies any diarrhea or constipation or blood or black stools. Denies any chest pain. No headache or dizziness. No blurred vision seen. No earache or runny nose or sore throat or cough. No difficulty swallowing. Normal bladder movements. Admission Exam Per Admitting Provider General- Not in distress Head- atraumatic Eyes- PERRLA. ENT- oropharynx clear Neck- supple, no JVD Lungs- clear to auscultation and percussion Heart- regular rhythm; no murmur, no gallop, Abdomen- normal bowel sounds, soft, mild generalized discomfort, no distension Extremities- mild pedeal edema, no erythema . Neuro- alert, oriented x 3; PERRL, EOMI; no facial palsy; no dysarthria Non focal. Skin- warm & dry Principal Dx & Hospital Course #1 = Principal Diagnosis (1) Acute on chronic diastolic heart failure with preserved ejection fraction: per Dr. Jeffery's notes with addendum: 82-year-old male with past medical significant for hyperlipidemia, hypothyroidism, gout, obstructive sleep apnea on CPAP nightly, chronic diastolic CHF, PAF, tachybradycardia syndrome, s/p pacemaker, history of 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, hypertension, chronic kidney disease stage III, history of CAD, left bundle branch block, morbid obesity, GERD, vitamin B12 deficiency, BPH, osteoarthritis, restless leg syndrome, history of poison annabelle dermatitis, history of monoclonal paraproteinemia, history of angioedema, history of C. difficile, history of depression recently in the hospital for acute diastolic CHF treated with IV Lasix and discharged back on his home Lasix and Meprolone and Toprol on January 26 presents again today with shortness of breath says going on for last 2 days and also abdominal discomfort. ACUTE ON CHRONIC DIASTOLIC CHF EXACERBATION given IV Lasix Diuresed well Transition from IV Lasix to p.o. torsemide 40 mg daily Remained stable Weaned off of oxygen Creatinine increased from baseline of 1.5, now 1.9 Monitor renal function closely while on torsemide 40 mg daily Repeat BMP on follow-up with primary care physician this coming week ABDOMINAL DISCOMFORT CT abdomen okay Tolerating heart healthy diet well Obstructive sleep apnea CPAP nightly A-fib Metoprolol increased Continue Eliquis Chronic kidney stage III Creatinine from 1.4, 1.9-2.0 Monitor closely while on torsemide 40 mg p.o. daily Repeat BMP and follow-up with PCP this week Gout Allopurinol Hyperlipidemia On statin Hypertension on Toprol, hydralazine and terazosin Hypothyroidism on Synthroid BPH on terazosin Tachybradycardia syndrome s/p pacemaker GERD on omeprazole DVT prophylaxis on Eliquis Disposition Discharged home Follow-up with PCP in 1 week Follow-up with cardiology in 3 to 4 weeks plan of care discussed with patient and his daughter over the phone in detail and at length all questions answered They are understanding, agreeable, comfortable with the plan of care Full code (2) Abdominal pain: Discharge Exam General- oriented x 3, not in distress, speaks in sentences with no effort or accessory muscle use Eyes- anicteric Neck- no JVD Lungs- clear breath sounds bilaterally, no rales/wheezes Heart- normal rate, regular rhythm; no murmurs Abdomen- normal bowel sounds, nondistended, soft, nontender Extremities- mild pedal edema, no calf tenderness Neuro- alert, oriented x 3; no gross focal neurologic deficits Skin- warm & dry Updated Medication List Medication Instructions Recorded Confirmed Type allopurinol 300 mg tablet 300 mg PO QAM 04/30/18 01/23/23 History atorvastatin 10 mg tablet 5 mg PO QAM 04/30/18 01/23/23 History cholecalciferol (vitamin D3) 50 2,000 unit PO QAM 04/30/18 01/23/23 History mcg (2,000 unit) capsule (Vitamin D3) citalopram 20 mg tablet (Celexa) 40 mg PO QAM 04/30/18 01/23/23 History hydralazine 50 mg tablet 25 mg PO TID 04/30/18 01/23/23 History omeprazole 40 mg capsule,delayed 40 mg PO DAILY 04/30/18 01/23/23 History release terazosin 5 mg capsule 5 mg PO HS 04/30/18 01/23/23 History aspirin 81 mg tablet,delayed 81 mg PO QAM 03/10/20 01/23/23 History release montelukast 10 mg tablet 10 mg PO QAM 05/07/21 01/23/23 History apixaban 2.5 mg tablet (Eliquis) 2.5 mg PO BID #60 tabs 07/13/21 01/23/23 Rx diphenoxylate-atropine 2.5 1 tab PO QID PRN Diarrhea 07/10/22 01/23/23 History mg-0.025 mg tablet potassium chloride 20 mEq 20 meq PO DAILY 11/29/22 01/23/23 History tablet,extended release magnesium oxide 400 mg PO BID #60 caps 12/01/22 01/23/23 Rx calcium carbonate 600 mg calcium 1,500 mg PO BID 01/23/23 01/23/23 History (1,500 mg) tablet cyanocobalamin (vitamin B-12) 1,000 mcg PO DAILY 01/23/23 01/23/23 History 1,000 mcg tablet eplerenone 25 mg tablet 12.5 mg PO DAILY 01/23/23 01/23/23 History hydrocortisone acetate 25 mg 25 mg TN HS PRN Hemorrhoids 01/23/23 01/23/23 History rectal suppository levothyroxine 50 mcg tablet 50 mcg PO DAILYBB 01/23/23 01/23/23 History triamcinolone acetonide 0.1 % 1 applic topical BID 01/23/23 01/23/23 History topical cream metoprolol succinate 25 mg 25 mg PO BID 30 days #60 tabs 01/26/23 Rx tablet,extended release 24 hr torsemide 10 mg tablet 40 mg PO QAM 30 days #120 tabs 02/02/23 Rx Hospital Stay Data Consultations 01/28/23 20:16 ED Decision to Admit Stat 01/29/23 08:00 Consult Cardiology Routine Diagnostic Imagining Performed Laboratory Results WBC 7.05 K/ul (4.8-10.8) 01/29/23 05:31 RBC 3.55 M/uL (4.70-6.10) L 01/29/23 05:31 Hgb 12.0 g/dl (14.0-18.0) L 01/29/23 05:31 Hct 35.0 % (42.0-52.0) L 01/29/23 05:31 MCV 98.6 fL (80.0-100.0) 01/29/23 05:31 MCH 33.8 pg (25.0-34.0) 01/29/23 05:31 MCHC 34.3 g/dL (32.0-36.0) 01/29/23 05:31 RDW Std Deviation 51.1 fL (36.4-46.3) H 01/29/23 05:31 RDW Coeff of [place] 13.9 % (11.5-14.5) 01/29/23 05:31 Plt Count 162 K/uL (130-400) 01/29/23 05:31 MPV 12.2 fL (9.4-12.4) 01/29/23 05:31 Immature Gran % (Auto) 0.3 % 01/29/23 05:31 Neut % (Auto) 64.4 % 01/29/23 05:31 Lymph % (Auto) 18.0 % 01/29/23 05:31 [place] % (Auto) 12.9 % 01/29/23 05:31 Eos % (Auto) 3.4 % 01/29/23 05:31 Baso % (Auto) 1.0 % 01/29/23 05:31 Neut # (Auto) 4.54 K/uL (1.40-6.50) 01/29/23 05:31 Lymph # (Auto) 1.27 K/uL (1.2-3.4) 01/29/23 05:31 [place] # (Auto) 0.91 K/uL (0.11-0.59) H 01/29/23 05:31 Eos # (Auto) 0.24 K/uL (0-0.50) 01/29/23 05:31 Baso # (Auto) 0.07 K/uL (0-0.2) 01/29/23 05:31 Immature Gran # (Auto) 0.02 K/uL (0.01-0.20) 01/29/23 05:31 Sodium 141 mmol/L (136-145) 02/02/23 05:31 Potassium 3.6 mmol/L (3.5-5.1) 02/02/23 05:31 Chloride 100 mmol/L (98-107) 02/02/23 05:31 Carbon Dioxide 32 mmol/L (21-32) 02/02/23 05:31 Anion Gap 9 (3-11) 02/02/23 05:31 BUN 46 mg/dl (6-23) H 02/02/23 05:31 Creatinine 2.04 mg/dl (0.6-1.4) H 02/02/23 05:31 Est Cr Clr Drug Dosing 35.6 ml/min 02/02/23 05:31 Est GFR ( Amer) 34.2 ml/min 02/02/23 05:31 Est GFR (Non-Af Amer) 29.5 ml/min 02/02/23 05:31 BUN/Creatinine Ratio 22.5 (10-20) H 02/02/23 05:31 Glucose 99 mg/dl (70-99(Fasting)) 02/02/23 05:31 Calcium 8.2 mg/dl (8.6-10.3) L 02/02/23 05:31 Magnesium 1.7 mg/dl (1.7-2.4) 02/02/23 05:31 Total Bilirubin 0.9 mg/dl (0.2-1.0) 01/28/23 17:05 AST 22 U/L (13-39) 01/28/23 17:05 ALT 14 U/L (7-52) 01/28/23 17:05 Alkaline Phosphatase 55 U/L (34-104) 01/28/23 17:05 Troponin I High Sens 11.0 pg/ml (0-20) 01/28/23 17:05 B-Natriuretic Peptide 141 pg/ml (0-100) H 01/28/23 20:16 Total Protein 5.7 gm/dl (6.0-8.3) L 01/28/23 17:05 Albumin 4.0 gm/dl (3.4-5.0) 01/28/23 17:05 Globulin 1.7 gm/dl (2.5-4.0) L 01/28/23 17:05 Albumin/Globulin Ratio 2.4 (0.9-2) H 01/28/23 17:05 Lipase 36 U/L (11-82) 01/28/23 17:05 Urine Color Yellow 01/28/23 17:00 Urine Appearance Clear (Clear) 01/28/23 17:00 Urine pH 5.0 (4.5-7.5) 01/28/23 17:00 Ur Specific [place] 1.010 (1.000-1.030) 01/28/23 17:00 Urine Protein Negative (Negative) 01/28/23 17:00 Urine Glucose (UA) Negative (Negative) 01/28/23 17:00 Urine Ketones Negative (Negative) 01/28/23 17:00 Urine Blood Negative (Negative) 01/28/23 17:00 Urine Nitrite Negative (Negative) 01/28/23 17:00 Urine Bilirubin Negative (Negative) 01/28/23 17:00 Urine Urobilinogen Negative (Negative) 01/28/23 17:00 Ur Leukocyte Esterase Negative (Negative) 01/28/23 17:00 SARS-CoV-2, RNA, NAAT NEGATIVE (NEGATIVE) 01/28/23 17:48 Impressions Abdomen/Pelvis CT 01/28/23 16:52 Exam(s): CT ABDOMEN + PELVIS With Contrast IV Amt: 93 ml optriay 320 EXAM: CT Abdomen and Pelvis With Intravenous Contrast CLINICAL HISTORY: Reason for exam: abd pain, nausea. TECHNIQUE: Axial computed tomography images of the abdomen and pelvis with intravenous contrast. CTDI is 28.14 mGy and DLP is 1527.97 mGy-cm. Automated exposure control was utilized for the study. A dose lowering technique was utilized adhering to the principles of ALARA. CONTRAST: Patient received 93 ml optriay 320 of IV contrast COMPARISON: No relevant prior studies available. FINDINGS: Lung bases: Unremarkable. No mass. No consolidation. ABDOMEN: Liver: Unremarkable. No focal hepatic lesion. Gallbladder and bile ducts: Cholecystectomy. No ductal dilation. Pancreas: Unremarkable. No mass. No ductal dilation. Spleen: Unremarkable. No splenomegaly. Adrenals: Unremarkable. No mass. Kidneys and ureters: No hydronephrosis or delayed nephrogram. Stone in the urinary bladder measures 1 cm. Stomach and bowel: Anastomotic sutures in the RIGHT colon, correlate for partial colectomy. Diverticulosis, without acute diverticulitis. No small bowel obstruction. No free intraperitoneal air. PELVIS: Appendix: See above. Bladder: Small LEFT bladder diverticulum measures 1.1 x 1.3 cm. Reproductive: Unremarkable as visualized. ABDOMEN and PELVIS: Intraperitoneal space: Unremarkable. No free air. No significant fluid collection. Bones/joints: Bilateral hip arthroplasties. Degenerative changes of the spine. No acute fracture. No dislocation. Soft tissues: Bilateral gynecomastia. Vasculature: Atherosclerotic changes of the aorta. No abdominal aortic aneurysm. Lymph nodes: Unremarkable. No enlarged lymph nodes. Tubes, lines and devices: Pacemaker leads. IMPRESSION: 1. Cholecystectomy. 2. No hydronephrosis or delayed nephrogram. Stone in the urinary bladder measures 1 cm. 3. Small LEFT bladder diverticulum measures 1.1 x 1.3 cm. 4. Anastomotic sutures in the RIGHT colon, correlate for partial colectomy. 5. Bilateral hip arthroplasties. 6. Diverticulosis, without acute diverticulitis. No small bowel obstruction. No free intraperitoneal air. Electronically signed by: Ivan Treviño MD 01/28/23 19:52 PM Chest X-Ray 01/28/23 16:53 XR chest 1V portable HISTORY: 82 years-old Male sob acute shortness of breath COMPARISON: 01/23/2023 TECHNIQUE: AP view the chest FINDINGS: Cardiac silhouette is enlarged. Unchanged mild right hemidiaphragmatic elevation. Pulmonary vascular congestion with interstitial coarsening. No pneumothorax or large pleural effusion. Left subclavian pacer. Bones appear grossly intact. IMPRESSION: Cardiomegaly with mild pulmonary edema. ACT 112: Negative or not required by law. The above report was generated using voice recognition software. It may contain grammatical, syntax or spelling errors. Electronically signed by: Luis M Mortensen M.D. 01/28/2023 5:28 PM Pending Results Patient Have Any Pending Studies at Discharge: Yes (REPEAT BL) Discharge Instructions Given to Patient (Per Discharging Provider) PLEASE REFER TO YOUR NEW MEDICATION LIST AND FOLLOW INSTRUCTIONS CAREFULLY. YOUR NEW MEDICATION INCLUDE: STOP FUROSEMIDE (LASIX). START TORSEMIDE 40MG PO DAILY. PLEASE CALL YOUR PRIMARY CARE PHYSICIAN OR RETURN TO THE ER IF WITH WORSENING OF SYMPTOMS, INCLUDING SHORTNESS OF BREATH, LEG SWELLING, CHEST PAIN, DIZZINESS, ETC FOLLOW UP WITH PRIMARY CARE PHYSICIAN OUTLINED ABOVE. Call your Primary Care doctor if any of the following symptoms or problems start or get worse: Shortness of breath or difficulty breathing Wake up at night short of breath Chest pain Cough Swelling of your hands, feet, or legs More fatigued or tired with your normal activity Palpitations - sudden fast heart beats WEIGHT Weigh yourself every morning after using the bathroom. Use the same scale. Wear the same amount of clothing. Write your weight down on a chart. Call your Primary Care doctor if you gain more than 2-3 pounds in 1-2 days. MEDICATIONS Use this discharge instruction sheet for medication instructions. Take your medications at the time your doctor ordered. Do not skip a dose of your medicines. If you miss a dose of medicine, take it as soon as possible, but DO NOT DOUBLE A DOSE. Read your medicine information when you get home. Know all of the side effects of your medicine. If in doubt, ask your pharmacist Call your Primary Care doctor's office if you have any side effects. Be sure all of your doctors know what medicine and herbs you take (including cold, flu, and herbal medicine). Take the following with you to your follow-up doctor appointments: Weight Chart Medication List List of questions Do not drink excessive alcohol, beer or wine. . Who to Call and When: Call 911 or go to the Emergency Room if: If at any time you feel your situation is an emergency You have tightness or pain in your chest that does not go away with rest or Nitroglycerin You are very short of breath even with rest . Total Time Total Time Spent Total Time Spent (In Minutes): > 30 minutes
== END 2023-02-02 11:45 | disposition home or self-care (01) | DRG 291 ==
LOC: ED 16:44 → 4W 23:18 → SUATTDRO 23:18 → 4W 01-29 00:38

== ENCOUNTER 2023-12-12 13:05 | Inpatient (IN) ==
[2023-12-12 13:51] LABS: Basophils # (auto) 0.07 K/uL (0.00-0.20); Basophils % (auto) 0.9 %; Eosinophils # (auto) 0.28 K/uL (0.00-0.50); Eosinophils % (auto) 3.5 %; Hemoglobin 14.9 g/dl (14.0-18.0); Immature Granulocytes # (auto) 0.03 K/uL (0.01-0.20); Immature Granulocytes % (auto) 0.4 %; Lymphocytes # (auto) 1.45 K/uL (1.20-3.40); Lymphocytes % (auto) 18.4 %; Mean Corpuscular Hemoglobin 33.1 pg (25.0-34.0); Mean Corpuscular Hgb Conc 33.9 g/dL (32.0-36.0); Mean Corpuscular Volume 97.8 fL (80.0-100.0); Mean Platelet Volume 11.5 fL (9.4-12.4); Monocytes # (auto) 0.68 K/uL (0.11-0.59); Monocytes % (auto) 8.6 %; Neutrophils # (auto) 5.39 K/uL (1.40-6.50); Neutrophils % (auto) 68.2 %; Platelet Count 178 K/uL (130-400); RDW Coefficient of Variation 14.5 % (11.5-14.5); RDW Standard Deviation 52.1 fL (36.4-46.3)
[2023-12-12 14:06] LABS: Alanine Aminotransferase 13 U/L (7-52); Albumin Globulin Ratio 1.7 (0.9-2); Alkaline Phosphatase 65 U/L (34-104); Anion Gap 7 (3-11); Aspartate Aminotransferase 21 U/L (13-39); BUN Creatinine Ratio 14.1 (10-20); Bilirubin,Total 1.2 mg/dl (0.2-1.0); Blood Urea Nitrogen 28 mg/dl (6-23); Calcium 8.5 mg/dl (8.6-10.3); Carbon Dioxide 31 mmol/L (21-32); Chloride 101 mmol/L (98-107); Est GFR (Non-African American) 30.2 ml/min; Globulin 2.4 gm/dl (2.5-4.0); Glucose 123 mg/dl (70-99(Fasting)); Lactate Dehydrogenase 206 U/L (86-244); Lipase 34 U/L (11-82); Potassium 3.8 mmol/L (3.5-5.1); Sodium 139 mmol/L (136-145); Total Protein 6.4 gm/dl (6.0-8.3)
--- NOTE | 2023-12-12 14:45 | CT Scan Report ---
CT head/brain wo con CLINICAL HISTORY: 83 years-old Male with AMS. Acutely altered mental status TECHNIQUE: Multiple axial CT images of the head were obtained without contrast. A dose lowering tech nique was utilized adhering to the principles of ALARA. CT DOSE: 711.65 mGy.cm COMPARISON: Brain MRI 01/23/2022 FINDINGS: No acute intracranial hemorrhage, midline shift, intracranial mass, hydrocephalus, territorial ischem ia or abnormal extra-axial collection. Involutional changes with chronic microvascular ischemic disea se. Cerebral vascular calcifications. Right suboccipital craniectomy. Postoperative changes of the paranasal sinuses. Prior bilateral lens repair. IMPRESSION: No acute intracranial abnormality. ACT 112: Negative or not required by law. The above report was generated using voice recognition software. It may contain grammatical, syntax o r spelling errors. Electronically signed by: Luis M Mortensen M.D. 12/12/2023 2:43 PM
--- NOTE | 2023-12-12 17:15 | Emergency Department Note ---
Impression & Plan Confusion, Lower abdominal pain, Bladder calculi, Multiple myeloma ED Provider Note NAME: VANESSA CURTIS AGE: 83 SEX: M : 1940 ARRIVES VIA: Walk-In INFORMANT: [Patient][daughter] ED PROVIDER(S): [Shahram Nova MD] CHIEF COMPLAINT: Abdominal pain, confusion HISTORY OF PRESENT ILLNESS: The patient is an 83-year-old male who presents to the ER with continued complaints of lower abdominal pain that seems intermittent and colicky. In addition, today at his appointment with his doctor, he was confused and has not been acting himself. His daughter was concerned about his mentation. They were referred to the ER, hospitalization and further workup was recommended. The patient has not had fever, no respiratory complaints. No cough or congestion. He does not have urinary burning. He does not have diarrhea, there has been no vomiting. The patient was seen in our ED on the third, 4 days ago. He was found to have a bladder stone but no concerning pathology on CT imaging was reported. His urinalysis showed no infection. PMHx/PSHx/Social Hx: See Below PHYSICAL EXAM: GENERAL: Patient is in no acute distress. HEENT: No acute trauma, normocephalic atraumatic, mucous membranes moist, no nasal congestion. NECK: No stridor, no adenopathy, no meningismus, trachea is midline. LUNGS: Clear to auscultation bilaterally, no wheeze, no rhonchi, breath sounds equal. HEART: Without murmurs gallops or rubs, regular rate and rhythm. ABDOMEN: Soft, mildly tender in the lower abdomen bilaterally, no rebound or peritonitis. EXTREMITIES: No cyanosis, full range of motion of all the joints without pain or difficulty. NEUROLOGIC: Awake and alert, no acute motor or sensory deficits, no focal weakness. SKIN: No jaundice, no diaphoresis. DIFFERENTIAL DIAGNOSIS: Dehydration, anemia, electrolyte imbalance, UTI, medication reaction, bladder stone, among others. EMERGENCY DEPARTMENT PROCEDURES: MEDICAL DECISION MAKING: There is no leukocytosis or concerning anemia. There is a normal platelet count. Patient does have some renal insufficiency but this appears baseline looking back at previous testing. No electrolyte abnormality in need of emergent correction. No concerning liver enzyme elevation. BNP is not elevated making CHF unlikely. No evidence for pancreatitis. The patient appeared to be in a euthyroid state. Chest film does not show pneumonia or pneumothorax. There was no concerning CHF. Urinalysis does not show findings of infection. CT imaging from a few days ago did show a bladder stone but no other concerning pathology. A brain CT was done because of the acute confusion described, there was no acute bleed or mass effect. Patient presents with some confusion. He has been complaining of some lower abdominal pain. This is second visit in a few days. The patient's daughter was concerned about how things have gone the last several days, she is worried about taking him home. He is concerned because no one seems to be able to give them an answer for his complaints. The patient will be hospitalized for a further workup. At this point, the cause for his presentation is not completely clear. I did speak with case management, the on-call hospitalist was consulted. Prior/Outside records/notes reviewed: Today's notes from his doctors office describing his mental status change and the need for a ER evaluation. ECG per my interpretation: Indication was change in mental status. The ECG shows atrial fibrillation with a rate of 76. There is a left bundle branch block. There is no acute ST elevation, no PVCs. The QTc was 477. Imaging/x-ray results per my interpretation: Chest x-ray shows some chronic change, there is no pneumonia or pneumothorax. No worrisome CHF. Chronic Medical/Social conditions affecting care: Advanced age Care/Management discussed with: Case management, the on-call hospitalist. Level of care consideration(s): After review of the information above and other included data: --I believe the patient requires escalation of care to admission DISPOSITION: Admission Past Med/Surg History Problem List (Updated 12/12/23 @ 21:02 by Shahram Nova MD) Multiple myeloma (Acute) Bladder calculi (Acute) Lower abdominal pain (Acute) Confusion (Acute) Low serum chloride (Acute) CKD (chronic kidney disease) (Acute) Abdominal pain (Acute) Cardiac pacemaker in situ Breathlessness (Acute) Abdominal pain (Acute) Nausea (Acute) Confusion Acute on chronic diastolic heart failure with preserved ejection fraction Hypoxia (Acute) LBBB (left bundle branch block) ? HX Obstructive sleep apnea on CPAP Monoclonal paraproteinemia CKD (chronic kidney disease), stage III Hypertension Hypomagnesemia Exertional shortness of breath Atrial fibrillation with rapid ventricular response (Acute) Anemia Encounter for pre-operative examination Insomnia (Chronic) Major depression (Chronic) Osteoarthrosis (Chronic) ASCVD (arteriosclerotic cardiovascular disease) (Chronic) cardiac cath 2009 - non obstructive disease H/O knee surgery History of hip surgery BPH (benign prostatic hyperplasia) Atrial fibrillation Monoclonal B-cell lymphocytosis Pericardial effusion Pleural effusion, left History of pulmonary embolism Acute on chronic diastolic CHF (congestive heart failure) Anemia (Acute) UTI (urinary tract infection) Pneumonia due to COVID-19 virus Respiratory failure with hypoxia Dysphagia DVT prophylaxis Morbid (severe) obesity due to excess calories Medical History Obesity Chronic diarrhea WORSENING...REASON FOR UPCOMING PROCEDURES Thyroid disease Anxiety and depression Multiple myeloma dx 4 yr ago...current chemo tx monthly SOB (shortness of breath) SOB ON EXERTION...CT scan done 1-1.5 mon ago [facility]...form of blood clot and fluid ? extent , some kind of scarring - f/u with lung specialist - appointment not yet made History of pulmonary embolism History of DVT (deep vein thrombosis) Diarrhea Thrombocytopenia Elevated troponin I level Hypoxia 2019 novel coronavirus-infected pneumonia (NCIP) ? 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 HX Prolonged QT interval ? HX GERD (gastroesophageal reflux disease) BPH without obstruction/lower urinary tract symptoms Carpal tunnel syndrome Gout hx Restless leg syndrome Surgical History H/O sinus surgery History of appendectomy History of bilateral knee arthroplasty History of cardiac cath History of cataract surgery History of colonoscopy History of esophagogastroduodenoscopy (EGD) History of pacemaker History of revision of total knee arthroplasty History of thoracentesis History of tooth extraction History of total right hip arthroplasty Hx of cholecystectomy Status post total hip replacement, left Family History Father Heart disease Mother Diabetes Hypertension Brother Family hx of colon cancer Brother Family hx of colon cancer Social History Smoking Status: Never smoker Second Hand Exposure: No; Do You Dip or Chew Tobacco: No; Hx Alcohol Use: No Hx Substance Use: No Preferred Language: Mongolian Communication Ability: Effective Communication Ability Comment: PT DAUGHTER SHADY LANGFORDA, SIGNS CONSENTS (PT LIMITED COMPREHENSION) 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 Beliefs That Will Affect Care: None marital status: Current Living Situation: Spouse and Family Current Living Situation Comment: AND DAUGHTER How many Children do You have: 2 Feels Safe at Home: Yes Assistive Devices: Cane, CPAP and Walker Allergies Allergies Allergy/AdvReac Type Severity Reaction Status Date / Time COVID-19 vaccine, mRNA, AdvReac Unknown probable Verified 12/12/23 17:20 [id number], L reaction: [From [place] (PF)] throat swelling Home Meds Home Medications Medication Instructions Recorded Confirmed allopurinol 300 mg tablet 300 mg PO QAM 04/30/18 12/12/23 atorvastatin 10 mg tablet 5 mg PO QAM 04/30/18 12/12/23 cholecalciferol (vitamin D3) 50 2,000 unit PO QAM 04/30/18 12/12/23 mcg (2,000 unit) capsule (Vitamin D3) omeprazole 40 mg capsule,delayed 40 mg PO DAILY 04/30/18 12/12/23 release terazosin 5 mg capsule 5 mg PO HS 04/30/18 12/12/23 montelukast 10 mg tablet 10 mg PO QAM 05/07/21 12/12/23 diphenoxylate-atropine 2.5 1 tab PO QID PRN Diarrhea 07/10/22 12/12/23 mg-0.025 mg tablet calcium carbonate 1,500 mg PO BID 01/23/23 12/12/23 cyanocobalamin (vitamin B-12) 1,000 mcg PO DAILY 01/23/23 12/12/23 1,000 mcg tablet eplerenone 25 mg tablet 12.5 mg PO DAILY 01/23/23 12/12/23 triamcinolone acetonide 0.1 % 1 applic topical BID PRN flare up 01/23/23 12/12/23 topical cream acyclovir 400 mg tablet 400 mg PO BID 03/28/23 12/12/23 albuterol sulfate 90 mcg/actuation 2 puff inhalation QID PRN 03/28/23 12/12/23 aerosol inhaler Shortness Of Breath Or Wheezing potassium chloride 20 mEq 20 meq PO DAILY 10/10/23 12/12/23 tablet,extended release hydralazine 25 mg tablet 25 mg PO TID 12/08/23 12/12/23 levothyroxine 75 mcg tablet 75 mcg PO QAM 12/08/23 12/12/23 metoprolol succinate 50 mg 50 mg PO BID 12/08/23 12/12/23 tablet,extended release 24 hr torsemide 20 mg tablet 40 mg PO QAM 12/08/23 12/12/23 Previous Rx's Medication Instructions Recorded apixaban 2.5 mg tablet (Eliquis) 2.5 mg PO BID #60 tabs 07/13/21 magnesium oxide 400 mg PO BID #60 caps 12/01/22 Results & Data (ED) Vital Signs Vital Signs - 24 hr 12/12/23 13:11 12/12/23 15:45 12/12/23 17:03 Temperature 36.6 C Temperature Source Temporal Artery Scan Pulse Rate 77 77 Pulse Rate [Finger] 77 Pulse Rhythm [Finger] Pulse Strength [Finger] Respiratory Rate 14 18 Respiratory Effort / Characteristics Respiratory Depth Respiratory Pattern Blood Pressure 154/97 H Blood Pressure [Left Arm] 127/87 Blood Pressure Mean 116 Blood Pressure Mean [Left Arm] 100 Blood Pressure Position [Left Arm] Pulse Oximetry 94 97 Oxygen Delivery Method Room Air Sepsis New/Unexplained Change in Mental Status No Sepsis Action Taken by Nursing No Action Required 12/12/23 19:50 Temperature 36.8 C Temperature Source Oral Pulse Rate Pulse Rate [Finger] 82 Pulse Rhythm [Finger] Regular Pulse Strength [Finger] Normal Respiratory Rate 16 Respiratory Effort / Characteristics Non-Labored Spontaneous Respiratory Depth Normal Respiratory Pattern Regular Blood Pressure Blood Pressure [Left Arm] 138/80 Blood Pressure Mean Blood Pressure Mean [Left Arm] 99 Blood Pressure Position [Left Arm] Semi-fowlers Pulse Oximetry 94 Oxygen Delivery Method Room Air Sepsis New/Unexplained Change in Mental Status Sepsis Action Taken by Retirement Medications Current Medication List: was personally reviewed by me Laboratory Data Attestation: I reviewed the patient's lab results. 12/12/23 13:32 12/12/23 13:32 Lab Results 12/12/23 12/12/23 12/12/23 Range/Units 13:32 17:40 18:15 WBC 7.90 (4.8-10.8) K/ul RBC 4.50 L (4.70-6.10) M/uL Hgb 14.9 (14.0-18.0) g/dl Hct 44.0 (42.0-52.0) % MCV 97.8 (80.0-100.0) fL MCH 33.1 (25.0-34.0) pg MCHC 33.9 (32.0-36.0) g/dL RDW Std Deviation 52.1 H (36.4-46.3) fL RDW Coeff of [place] 14.5 (11.5-14.5) % Plt Count 178 (130-400) K/uL MPV 11.5 (9.4-12.4) fL Immature Gran % (Auto) 0.4 % Neut % (Auto) 68.2 % Lymph % (Auto) 18.4 % [place] % (Auto) 8.6 % Eos % (Auto) 3.5 % Baso % (Auto) 0.9 % Neut # (Auto) 5.39 (1.40-6.50) K/uL Lymph # (Auto) 1.45 (1.20-3.40) K/uL [place] # (Auto) 0.68 H (0.11-0.59) K/uL Eos # (Auto) 0.28 (0.00-0.50) K/uL Baso # (Auto) 0.07 (0.00-0.20) K/uL Immature Gran # (Auto) 0.03 (0.01-0.20) K/uL Sodium 139 (136-145) mmol/L Potassium 3.8 (3.5-5.1) mmol/L Chloride 101 (98-107) mmol/L Carbon Dioxide 31 (21-32) mmol/L Anion Gap 7 (3-11) BUN 28 H (6-23) mg/dl Creatinine 1.99 H (0.6-1.4) mg/dl Est Cr Clr Drug Dosing Not Reportable Est GFR ( Amer) 35.0 ml/min Est GFR (Non-Af Amer) 30.2 ml/min BUN/Creatinine Ratio 14.1 (10-20) Glucose 123 H (70-99(Fasting)) mg/dl Calcium 8.5 L (8.6-10.3) mg/dl Total Bilirubin 1.2 H (0.2-1.0) mg/dl AST 21 (13-39) U/L ALT 13 (7-52) U/L Alkaline Phosphatase 65 (34-104) U/L Lactate Dehydrogenase 206 (86-244) U/L B-Natriuretic Peptide 95 (0-100) pg/ml Total Protein 6.4 (6.0-8.3) gm/dl Albumin 4.0 (3.4-5.0) gm/dl Globulin 2.4 L (2.5-4.0) gm/dl Albumin/Globulin Ratio 1.7 (0.9-2) Lipase 34 (11-82) U/L Procalcitonin 0.04 (0-0.5) ng/ml TSH 3.406 (0.300-4.500) uIu/ml Urine Color Yellow Urine Appearance Clear (Clear) Urine pH 5.5 (4.5-7.5) Ur Specific [place] 1.021 (1.000-1.030) Urine Protein Trace H (Negative) Urine Glucose (UA) Negative (Negative) Urine Ketones Negative (Negative) Urine Blood Negative (Negative) Urine Nitrite Negative (Negative) Urine Bilirubin Negative (Negative) Urine Urobilinogen Negative (Negative) Ur Leukocyte Esterase Negative (Negative) Urine WBC (Auto) 0-5 (0-5) /hpf Urine RBC (Auto) 0-2 (0-2) /hpf U Hyaline Cast (Auto) 0-2 (0-2) /lpf U Epithel Cells (Auto) 0-2 (0-2) /hpf Urine Bacteria (Auto) None Seen (None Seen) Administered Medications Discontinued Medications Sodium Chloride (Nss) 1,000 mls @ 999 mls/hr IV .Q1H1M ONE Stop: 12/12/23 17:57 Last Infusion: 12/12/23 20:23 Dose: Infused Documented By: Admin: 12/12/23 18:22 Dose: 999 mls/hr Documented By: JOSH Torsemide (Torsemide 20 Mg Tab) 20 mg PO ONE ONE Stop: 12/12/23 18:41 Last Admin: 12/12/23 20:11 Dose: 20 mg Documented By: JOSH Imaging Data Radiologist's Impression: Head CT 12/12/23 13:16 CT head/brain wo con CLINICAL HISTORY: 83 years-old Male with AMS. Acutely altered mental status TECHNIQUE: Multiple axial CT images of the head were obtained without contrast. A dose lowering technique was utilized adhering to the principles of ALARA. CT DOSE: 711.65 mGy.cm COMPARISON: Brain MRI 01/23/2022 FINDINGS: No acute intracranial hemorrhage, midline shift, intracranial mass, hydrocephalus, territorial ischemia or abnormal extra-axial collection. Involutional changes with chronic microvascular ischemic disease. Cerebral vascular calcifications. Right suboccipital craniectomy. Postoperative changes of the paranasal sinuses. Prior bilateral lens repair. IMPRESSION: No acute intracranial abnormality. ACT 112: Negative or not required by law. The above report was generated using voice recognition software. It may contain grammatical, syntax or spelling errors. Electronically signed by: Luis M Mortensen M.D. 12/12/2023 2:43 PM Chest X-Ray 12/12/23 17:25 XR chest 1V portable HISTORY: Generalized abdominal pain. COMPARISON: Chest 01/28/2023. FINDINGS: There are low lung volumes. No pneumothorax. No pleural effusions. The cardiac silhouette remains mildly enlarged. There is a left-sided dual-chamber pacemaker. No focal lung consolidations to suggest a pneumonia. Degenerative changes within the shoulders. No acute fractures. There is mild central pulmonary vascular congestion without overt edema. This has improved. IMPRESSION: Cardiomegaly and mild congestive change. This has improved in the interval. ACT 112: Negative or not required by law. Electronically signed by: Ang Hurley M.D. 12/12/2023 5:58 PM Discharge Plan Visit Data Chief Complaint: Abdominal Pain Stated Complaint: ABD PAIN, REF BY CANCER CARE ED Provider: Shahram Nova Discharge Problem: Confusion, Lower abdominal pain, Bladder calculi, Multiple myeloma Patient Disposition: Admitted As Inpatient Condition: Fair Forms Stand Alone Forms: [employer] Prescriptions Prescriptions: No Action albuterol sulfate 90 mcg/actuation HFA aerosol inhaler 2 puff inhalation QID PRN (Reason: Shortness Of Breath Or Wheezing) Rx Instructions: Unable to verify medication at this date/time acyclovir 400 mg tablet 400 mg PO BID terazosin 5 mg Capsule 5 mg PO HS atorvastatin 10 mg Tablet 5 mg PO QAM Rx Instructions: TAKE HALF A TABLET DAILY omeprazole 40 mg Capsule,Delayed Release(Dr/Ec) 40 mg PO DAILY allopurinol 300 mg Tablet 300 mg PO QAM cholecalciferol (vitamin D3) [Vitamin D3] 2,000 unit Capsule 2,000 unit PO QAM Rx Instructions: Unable to verify OTC meds at this date/time. magnesium oxide 400 mg magnesium capsule 400 mg PO BID Qty: 60 0RF Rx Instructions: Unable to verify OTC meds at this date/time. potassium chloride 20 mEq tablet extended release 20 meq PO DAILY cyanocobalamin (vitamin B-12) 1,000 mcg Tablet 1,000 mcg PO DAILY Rx Instructions: Unable to verify OTC meds at this date/time. triamcinolone acetonide 0.1 % cream 1 applic TOPICAL BID PRN (Reason: flare up) calcium carbonate 600 mg calcium (1,500 mg) tablet 1,500 mg PO BID Rx Instructions: Unable to verify OTC meds at this date/time. eplerenone 25 mg Tablet 12.5 mg PO DAILY montelukast 10 mg tablet 10 mg PO QAM Eliquis 2.5 mg Tablet 2.5 mg PO BID Qty: 60 0RF diphenoxylate-atropine 2.5-0.025 mg Tablet 1 tab PO QID PRN (Reason: Diarrhea) torsemide 20 mg tablet 40 mg PO QAM metoprolol succinate 50 mg tablet extended release 24 hr 50 mg PO BID hydralazine 25 mg tablet 25 mg PO TID levothyroxine 75 mcg tablet 75 mcg PO QAM Referrals Referrals: Telma Jacobs CRNP [Primary Care Provider] - Discharge Problem: Multiple myeloma Qualifiers: Multiple myeloma remission status: unspecified Qualified Code(s): C90.00 - Multiple myeloma not having achieved remission
--- NOTE | 2023-12-12 17:38 | History & Physical Report ---
Date of Service December 12, 2023 Assessment & Plan (1) Confusion: (2) Abdominal pain: Plan: - unclear cause of pt's mental status change - CT head negative - mental status now much improved - received IVF in the ED ? infectious etiology - pt afebrile, and WBC not elevated - will obtain UA, CXR, blood cultx, procalcitonin Abdominla pain CT abd./pelvis obtained on 12/07 c/w bladder stone, UA negative at that time - continues to have pain in lower abd. quadrants/suprapubic - per daughter, pt seen by Dr. Burnette in the past for prostate issues, not aware of any renal stones - will obtain renal US - UA pending - will further consult w/ urology - received IVF in the ED - pain control w/ tylenol and oxycodone prn - npo after mn (3) Atrial fibrillation: Plan: also hx of deborah-tachy syndrome s/p pacer - follows w/ [facility] cardiology - cont. eliquis and metoprolol - monitor on tele Hx of diastolic CHF - seems euvolemic - some mild vasc. congestion CXR - breathing comfortably on RA - will check pro-BNP - cont. torsemide hx of CAD - cont. home cardiac meds (4) CKD (chronic kidney disease), stage III: Plan: - baseline Cr lately 1.7-2.3 - current 1.9 - cont. to monitor - try to avoid nephrotoxic agents Hypothyroidism - cont. home levothyroxine - will check TSH MM - follows w/ cancer center (5) Obstructive sleep apnea on CPAP: Plan: - CPAP HS History of Present Illness Chief Complaint: AMS, abdominal pain Primary Care Provider: ASHER Eddy 83 M w/ hx of Afib, diastolic CHF, NAHEED, CAD, CKD stage 3, multiple myeloma, hypothyroidism who presents with abdominal discomfort and altered mental status. Pt presented in ED few days ago, 12/08/23 with abdominal pain, CT abd. pelvis was obtained and c/w bladder stone, UA was negative and pt was eventually discharged home. He followed up with PCP on 12/09. Today he was sent from cancer center where he's been seen for MM, as he was not acting himself. CT head was obtained in the ED and negative for any acute changes. lab work unremarkable. Discussed with ED physician - and will repeat UA, obtain CXR, blood cultx, procalcitonin, as it's not clear what caused pt's mental status worsening. Pt's mental status seems much improved now, he is answering me appropriately. daughter also present at the bedside and provides history. Currently pt is laying in bed comfortably. Denies any fevers chills chest pain palpitations, shortness of breath. Says he only gets short of breath when he has abdominal pain. Per daughter and the patient, abdominal pain was much better yesterday, however today became worse again. Patient reports lower abdominal pain only. He is still able to eat and he is having bowel movements. Reports having loose stools, which has been chronic for him, no blood in the stool. He is not quite sure if the pain is associated with food or not, however this morning when he woke up he did did not seem to have a pain, and pain comes later possibly after food. Daughter is very concerned about managing his pain, as Tylenol was not controlling it, and patient was in tears occasionally because of the pain. Allergies Allergy/AdvReac Type Severity Reaction Status Date / Time COVID-19 vaccine, mRNA, AdvReac Unknown probable Verified 12/12/23 17:20 [id number], L reaction: [From [place] ([facility])] throat swelling Home Medications Medication Instructions Recorded Confirmed Type allopurinol 300 mg tablet 300 mg PO QAM 04/30/18 12/12/23 History atorvastatin 10 mg tablet 5 mg PO QAM 04/30/18 12/12/23 History cholecalciferol (vitamin D3) 50 2,000 unit PO QAM 04/30/18 12/12/23 History mcg (2,000 unit) capsule (Vitamin D3) omeprazole 40 mg capsule,delayed 40 mg PO DAILY 04/30/18 12/12/23 History release terazosin 5 mg capsule 5 mg PO HS 04/30/18 12/12/23 History montelukast 10 mg tablet 10 mg PO QAM 05/07/21 12/12/23 History apixaban 2.5 mg tablet (Eliquis) 2.5 mg PO BID #60 tabs 07/13/21 12/12/23 Rx diphenoxylate-atropine 2.5 1 tab PO QID PRN Diarrhea 07/10/22 12/12/23 History mg-0.025 mg tablet magnesium oxide 400 mg PO BID #60 caps 12/01/22 12/12/23 Rx calcium carbonate 1,500 mg PO BID 01/23/23 12/12/23 History cyanocobalamin (vitamin B-12) 1,000 mcg PO DAILY 01/23/23 12/12/23 History 1,000 mcg tablet eplerenone 25 mg tablet 12.5 mg PO DAILY 01/23/23 12/12/23 History triamcinolone acetonide 0.1 % 1 applic topical BID PRN flare up 01/23/23 12/12/23 History topical cream acyclovir 400 mg tablet 400 mg PO BID 03/28/23 12/12/23 History albuterol sulfate 90 mcg/actuation 2 puff inhalation QID PRN 03/28/23 12/12/23 History aerosol inhaler Shortness Of Breath Or Wheezing potassium chloride 20 mEq 20 meq PO DAILY 10/10/23 12/12/23 History tablet,extended release hydralazine 25 mg tablet 25 mg PO TID 12/08/23 12/12/23 History levothyroxine 75 mcg tablet 75 mcg PO QAM 12/08/23 12/12/23 History metoprolol succinate 50 mg 50 mg PO BID 12/08/23 12/12/23 History tablet,extended release 24 hr torsemide 20 mg tablet 40 mg PO QAM 12/08/23 12/12/23 History Past Med/Surg History Problem List (Updated 12/08/23 @ 13:31 by Saúl Sanchez DO) Low serum chloride (Acute) CKD (chronic kidney disease) (Acute) Abdominal pain (Acute) Cardiac pacemaker in situ Breathlessness (Acute) Abdominal pain (Acute) Nausea (Acute) Confusion Acute on chronic diastolic heart failure with preserved ejection fraction Hypoxia (Acute) LBBB (left bundle branch block) ? HX Obstructive sleep apnea on CPAP Monoclonal paraproteinemia CKD (chronic kidney disease), stage III Hypertension Hypomagnesemia Exertional shortness of breath Atrial fibrillation with rapid ventricular response (Acute) Anemia Encounter for pre-operative examination Insomnia (Chronic) Major depression (Chronic) Osteoarthrosis (Chronic) ASCVD (arteriosclerotic cardiovascular disease) (Chronic) cardiac cath 2009 - non obstructive disease H/O knee surgery History of hip surgery BPH (benign prostatic hyperplasia) Atrial fibrillation Monoclonal B-cell lymphocytosis Pericardial effusion Pleural effusion, left History of pulmonary embolism Acute on chronic diastolic CHF (congestive heart failure) Anemia (Acute) UTI (urinary tract infection) Pneumonia due to COVID-19 virus Respiratory failure with hypoxia Dysphagia DVT prophylaxis Morbid (severe) obesity due to excess calories Medical History 2019 novel coronavirus-infected pneumonia (NCIP) Acute on chronic diastolic heart failure with preserved ejection fraction Anxiety and depression Atrial fibrillation with rapid ventricular response BPH without obstruction/lower urinary tract symptoms CAD (coronary artery disease) Carpal tunnel syndrome Chronic diarrhea Chronic diastolic CHF (congestive heart failure) Chronic sinusitis CKD (chronic kidney disease), stage III Diarrhea DVT prophylaxis Elevated troponin I level Escherichia coli infection GERD (gastroesophageal reflux disease) Gout History of DVT (deep vein thrombosis) History of paroxysmal supraventricular tachycardia History of pulmonary embolism Hyperlipidemia Hypertension Hypothyroidism Hypoxia Hypoxia Klebsiella infection Lambda light chain myeloma LBBB (left bundle branch block) Multiple myeloma Neuralgia Nonobstructive atherosclerosis of coronary artery Obesity Obstructive sleep apnea on CPAP Pneumonia due to COVID-19 virus Prolonged QT interval Recurrent Clostridioides difficile infection Restless leg syndrome SOB (shortness of breath) Thrombocytopenia Thyroid disease Surgical History H/O sinus surgery History of appendectomy History of bilateral knee arthroplasty History of cardiac cath History of cataract surgery History of colonoscopy History of esophagogastroduodenoscopy (EGD) History of pacemaker History of revision of total knee arthroplasty History of thoracentesis History of tooth extraction History of total right hip arthroplasty Hx of cholecystectomy Status post total hip replacement, left Family History Father Heart disease Mother Diabetes Hypertension Brother Family hx of colon cancer Brother Family hx of colon cancer Social History Smoking Status: Never smoker Second Hand Exposure: No; Do You Dip or Chew Tobacco: No; Hx Alcohol Use: No Hx Substance Use: No Preferred Language: [place] Communication Ability: Effective Communication Ability Comment: PT DAUGHTER SHADY DAY, SIGNS CONSENTS (PT L IMITED COMPREHENSION) Anthropology Department Chair Required: No Beliefs That Will Affect Care: None marital status: Current Living Situation: Spouse and Family Current Living Situation Comment: AND DAUGHTER How many Children do You have: 2 Feels Safe at Home: Yes Assistive Devices: Cane, CPAP and Walker Review of Systems Review of Systems: All systems reviewed & are unremarkable except as noted in Subjective Physical Exam Constitutional: WD/WN, vitals as above Eyes: PERRL, conjunctivae normal, anicteric sclerae ENMT: external ear and nose normal, oropharynx normal Neck: + short neck (supple) Respiratory: normal respiratory effort, lungs clear to auscultation Cardiovascular: RRR, no murmur, no edema Chest (Breasts): Chest: normal inspection of chest Gastrointestinal (Abdomen): Inspection/Auscultation: abdomen normal to inspection (tender to palp. lower abd. quadrants/suprapubic) and normal bowel sounds Musculoskeletal: no cyanosis or clubbing, extremities motor strength 5/5 Skin: no rashes, warm and dry Neurologic: PERRL, EOMI, accommodation nl, no face palsy, no dysarthria Psychiatric: A+Ox3, euthymic affect Lymphatic: no lymphedema Results & Data Results & Data Vital Signs (Past 12 Hours) Vital Signs Temp Pulse Pulse Resp BP BP Pulse Ox 12/12/23 17:03 77 12/12/23 15:45 77 18 127/87 97 12/12/23 13:11 36.6 C 77 14 154/97 H 94 O2 Del Method 12/12/23 17:03 12/12/23 15:45 12/12/23 13:11 Room Air Laboratory Results 12/12/23 Range/Units 13:32 WBC 7.90 (4.8-10.8) K/ul RBC 4.50 L (4.70-6.10) M/uL Hgb 14.9 (14.0-18.0) g/dl Hct 44.0 (42.0-52.0) % MCV 97.8 (80.0-100.0) fL MCH 33.1 (25.0-34.0) pg MCHC 33.9 (32.0-36.0) g/dL RDW Std Deviation 52.1 H (36.4-46.3) fL RDW Coeff of [place] 14.5 (11.5-14.5) % Plt Count 178 (130-400) K/uL MPV 11.5 (9.4-12.4) fL Immature Gran % (Auto) 0.4 % Neut % (Auto) 68.2 % Lymph % (Auto) 18.4 % [place] % (Auto) 8.6 % Eos % (Auto) 3.5 % Baso % (Auto) 0.9 % Neut # (Auto) 5.39 (1.40-6.50) K/uL Lymph # (Auto) 1.45 (1.20-3.40) K/uL [place] # (Auto) 0.68 H (0.11-0.59) K/uL Eos # (Auto) 0.28 (0.00-0.50) K/uL Baso # (Auto) 0.07 (0.00-0.20) K/uL Immature Gran # (Auto) 0.03 (0.01-0.20) K/uL Sodium 139 (136-145) mmol/L Potassium 3.8 (3.5-5.1) mmol/L Chloride 101 (98-107) mmol/L Carbon Dioxide 31 (21-32) mmol/L Anion Gap 7 (3-11) BUN 28 H (6-23) mg/dl Creatinine 1.99 H (0.6-1.4) mg/dl Est Cr Clr Drug Dosing Not Reportable Est GFR ( Amer) 35.0 ml/min Est GFR (Non-Af Amer) 30.2 ml/min BUN/Creatinine Ratio 14.1 (10-20) Glucose 123 H (70-99(Fasting)) mg/dl Calcium 8.5 L (8.6-10.3) mg/dl Total Bilirubin 1.2 H (0.2-1.0) mg/dl AST 21 (13-39) U/L ALT 13 (7-52) U/L Alkaline Phosphatase 65 (34-104) U/L Lactate Dehydrogenase 206 (86-244) U/L Total Protein 6.4 (6.0-8.3) gm/dl Albumin 4.0 (3.4-5.0) gm/dl Globulin 2.4 L (2.5-4.0) gm/dl Albumin/Globulin Ratio 1.7 (0.9-2) Lipase 34 (11-82) U/L Procalcitonin Pending Diagnostic Findings CT abd./pelvis 12/08/2023 FINDINGS: Lower chest: No acute abnormality. Liver: Unremarkable. No focal lesions are seen. Gallbladder and biliary tree: Patient is status post cholecystectomy. No intra- or extrahepatic biliary ductal dilation. Pancreas: Unremarkable, no focal lesions. Spleen: Unremarkable. Adrenals: Unremarkable. Kidneys and ureters: Left exophytic hyperdense cyst is seen. Bladder: Right bladder stone is seen. A few bladder diverticula are seen. Reproductive organs: Prostatomegaly is seen. Bowel: Patient is status post appendectomy. A small hiatal hernia is seen. Lymph nodes Retroperitoneal: Unremarkable. Pelvic: Subcentimeter lymph nodes are noted. Mesenteric: Unremarkable. Peritoneum: Normal. Vessels: Atherosclerotic calcifications are seen. Abdominal wall: Unremarkable. Intramuscular lipoma is seen in the right iliacus muscle. Bones: Bilateral total hip arthroplasties are seen. Degenerative changes are seen in the visualized spine. IMPRESSION: 1. No acute abnormality is seen. 2. A stone is again noted in the bladder, however there is no evidence of hydronephrosis or hydroureter. 3. Bladder wall trabeculation compatible with chronic outlet obstruction due to prostatomegaly. 4. Small hiatal hernia. CT head FINDINGS: No acute intracranial hemorrhage, midline shift, intracranial mass, hydrocephalus, territorial ischemia or abnormal extra-axial collection. Involutional changes with chronic microvascular ischemic disease. Cerebral vascular calcifications. Right suboccipital craniectomy. Postoperative changes of the paranasal sinuses. Prior bilateral lens repair. IMPRESSION: No acute intracranial abnormality.
[2023-12-12] MEDS ORDERED: ACETAMINOPHEN 325 MG TAB PO PRN (17:52)
--- NOTE | 2023-12-12 17:59 | XRay Report ---
XR chest 1V portable HISTORY: Generalized abdominal pain. COMPARISON: Chest 01/28/2023. FINDINGS: There are low lung volumes. No pneumothorax. No pleural effusions. The cardiac silhouette r emains mildly enlarged. There is a left-sided dual-chamber pacemaker. No focal lung consolidations to suggest a pneumonia. Degenerative changes within the shoulders. No acute fractures. There is mild ce ntral pulmonary vascular congestion without overt edema. This has improved. IMPRESSION: Cardiomegaly and mild congestive change. This has improved in the interval. ACT 112: Negative or not required by law. Electronically signed by: Ang Hurley M.D. 12/12/2023 5:58 PM
[2023-12-12 18:07] LABS: Appearance Urine Clear (Clear); Bacteria Urine Automated None Seen (None Seen); Bilirubin Urine Negative (Negative); Blood Urine Negative (Negative); Cast Urine Automated 0-2 /lpf (0-2); Color Urine Yellow; Epithelial Cell Urine Auto 0-2 /hpf (0-2); Glucose Urine UA Negative (Negative); Ketones Urine Negative (Negative); Leukocyte Esterase Urine Negative (Negative); Nitrite Urine Negative (Negative); Protein Urine Trace (Negative); RBC Urine Automated 0-2 /hpf (0-2); Specific Gravity Urine 1.021 (1.000-1.030); Urobilinogen Urine Negative (Negative); WBC Urine Automated 0-5 /hpf (0-5); pH Urine 5.5 (4.5-7.5)
[2023-12-12] MEDS: SODIUM CHLORIDE 0.9% 1,000 ML IV ONE (18:22)
[2023-12-12] MEDS: TORSEMIDE 20 MG TAB PO ONE (20:11)
--- NOTE | 2023-12-12 22:28 | Ultrasound Report ---
ULTRASOUND KIDNEYS AND BLADDER CLINICAL HISTORY: Bladder calculus. COMPARISON STUDY: Abdominal CT dated 12/08/2023. TECHNIQUE: Real-time, grayscale, and color flow sonography of the kidneys and bladder is performed. I mages are reviewed in the transverse and longitudinal planes. FINDINGS: Kidneys: The kidneys demonstrate mild cortical atrophy. Echotexture is normal. The right kidney measu res 10.3 cm in length and the left kidney measures 11.2 cm in length. There is no hydronephrosis. No shadowing renal calculi are identified. There is no sonographic evidence of contour deforming renal mass lesion. No perinephric fluid is identified. Bladder: The bladder is largely decompressed and grossly unremarkable. There is a 12 mm bladder calcu salvador. Ureteral jets were not seen. IMPRESSION: 1. The kidneys demonstrate mild cortical atrophy and are without hydronephrosis 2. The bladder is decompressed and grossly unremarkable. 3. A 12 mm bladder calculus is noted. ACT 112: Negative or not required by law. Electronically signed by: Shahram Hastings M.D. 12/12/2023 10:26 PM
--- NOTE | 2023-12-12 22:56 | Electrocardiogram Report ---
Test Reason : Blood Pressure : / mmHG Vent. Rate : 076 BPM Atrial Rate : 000 BPM P-R Int : 000 ms QRS Dur : 146 ms QT Int : 424 ms P-R-T Axes : 000 -38 131 degrees QTc Int : 477 ms Atrial fibrillation Left axis deviation Left bundle branch block Abnormal ECG When compared with ECG of 08-DEC-2023 09:40, No significant change Confirmed by Raphael Feliciano ([id number]) on 12/12/2023 10:55:50 PM Referred By: Confirmed By:Raphael Feliciano
[2023-12-12] MEDS ORDERED: ALBUTEROL HFA 8 GM INHALER INH PRN (23:37)
[2023-12-13] MEDS: APIXABAN 2.5 MG TAB PO SCH (00:33)
[2023-12-13] MEDS: METOPROLOL SUCC 50MG EXT REL TAB PO SCH (00:33)
[2023-12-13] MEDS: LEVOTHYROXINE SODIUM 75 MCG TABLET PO SCH (05:41)
[2023-12-13 06:26] LABS: Hemoglobin 14.3 g/dl (14.0-18.0); Mean Corpuscular Hemoglobin 33.2 pg (25.0-34.0); Mean Corpuscular Hgb Conc 34.9 g/dL (32.0-36.0); Mean Corpuscular Volume 95.1 fL (80.0-100.0); Mean Platelet Volume 11.9 fL (9.4-12.4); Platelet Count 175 K/uL (130-400); RDW Coefficient of Variation 14.1 % (11.5-14.5); RDW Standard Deviation 49.3 fL (36.4-46.3); Red Blood Count 4.31 M/uL (4.70-6.10); White Blood Count 7.75 K/ul (4.8-10.8)
[2023-12-13 06:54] LABS: Alanine Aminotransferase 12 U/L (7-52); Albumin Globulin Ratio 1.4 (0.9-2); Albumin Level 3.6 gm/dl (3.4-5.0); Alkaline Phosphatase 51 U/L (34-104); Anion Gap 10 (3-11); BUN Creatinine Ratio 15.5 (10-20); Bilirubin,Total 1.2 mg/dl (0.2-1.0); Blood Urea Nitrogen 28 mg/dl (6-23); Calcium 8.3 mg/dl (8.6-10.3); Carbon Dioxide 30 mmol/L (21-32); Chloride 101 mmol/L (98-107); Creatinine Clr Calc Pharmacy 38.7 ml/min; Est GFR (African American) 39.2 ml/min; Est GFR (Non-African American) 33.8 ml/min; Globulin 2.6 gm/dl (2.5-4.0); Glucose 100 mg/dl (70-99(Fasting)); Sodium 141 mmol/L (136-145); Total Protein 6.2 gm/dl (6.0-8.3)
--- NOTE | 2023-12-13 07:45 | Urology Consultation ---
Date of Consultation December 13, 2023 Assessment & Plan (1) Bladder calculi: (2) Lower abdominal pain: (3) Chronic retention of urine: (4) Acute on chronic diastolic heart failure with preserved ejection fraction: (5) CKD (chronic kidney disease): (6) Atrial fibrillation with rapid ventricular response: (7) Acute on chronic diastolic CHF (congestive heart failure): Plan Patient presenting to ER with increasing abdominal pain and discomfort had been seen in the ER few days prior and had undergone CT examination found to have signs of chronic outlet obstruction and incomplete emptying chronic retention issues and bladder stones. Imaging was somewhat limited due to orthopedic implants. Patient's imaging have been reviewed interpreted by myself. Patient does clearly have stones within the bladder. No major signs of hydronephrosis. Patient did have repeat imaging with renal ultrasound. Bladder appeared to be compressed but did have a loop approximately 1.2 cm likely stone within the base of the bladder. No signs of developing hydronephrosis. This imaging had also been reviewed interpreted by myself. Patient's vitals and labs were all reviewed. Hemoglobin was 14.3. Creatinine 1.81. White count 7.75. All other labs and values were reviewed. Pertinent v alues in the HPI and plan section. Imaging was reviewed interpreted by myself. Agree with read. Vitals were reviewed. Discussed findings extensively with patient. Patient's complicated medical and surgical history was reviewed and summarized above. Patient's surgical, medical, social, and family history were all reviewed with pertinent values as above. Discussed patient's current diagnosis as well as concerns and issues. Reviewed different options moving forward. Yesterday evening into this morning patient was having some mild improvement in renal ultrasound yesterday had shown no major signs of obstruction however this morning patient started to get increasing abdominal pain and discomfort and is now experiencing more significant pain and discomfort on examination is having tenderness and was having some mild guarding. Did not have specific rebound however did describe that during the ultrasound on deeper palpation he was having some increasing abdominal pain. This had improved slightly but now worsening again. Also is now having increasing trouble with voiding is still able to void but is only getting out small amounts. Patient still having persistent abdominal pain and discomfort. Did extensively review possible causes possible issues. Discussed possibility of developing infection. Cultures are currently pending. Patient also has complicated medical history with multiple comorbidities. Did discuss possibility of other concurrent issues such as bowel or other lower abdominal issue going on concurrently. Most recent imaging with renal ultrasound did not show severe retention or significant incomplete emptying. Bladder did appear to be largely decompressed. Has not been rechecked since yesterday. Did review possible need for intervention especially with the large stone. Discussed possible obstructive issues. Discussed possible issues related to infection bleeding and other concerns Discussed potential risks and benefits as well as possible options and concerns. Reviewed options to destroy or extract stone. Discussed options for timing of procedure. Patient continues to have significant abdominal pain with no major signs of obstruction. Does not appear to need emergent or urgent intervention. Did discuss possible need if patient develops significant fevers chills major signs of obstruction or severe bleeding Reviewed potential surgical options and interventions. Specifically discussed risk related to treatment and extraction of bladder stone. Discussed potential issues and concerns related to intervention. Risk and benefits were discussed extensively with patient and any available family. Discussed potential risks related to anesthesia. Discussed risks of bleeding infection and injury. Will contact hospitalist team and update them on findings. Will plan to order repeat CT scan since the last 1 was from earlier last week. Patient experiencing increasing tenderness and discomfort and increasing trouble with vo iding. Will plan to reassess abdomen will plan to continue with supportive care and monitoring. History of Present Illness Attending Physician: Hans Sherman MD History of Present Illness Consult for abdominal pain. Patient had presented to the ER twice first few day s ago and then yesterday with increasing abdominal pain issues. On the initial visit to the ER had undergone CT examination which had found signs of significant chronic retention with bladder stones visible. Imaging was somewhat limited due to orthopedic implants however the patient did have clearly defined calcification within the bladder without hydronephrosis. Patient had increasing lower urinary tract issues. Has been dealing with more significant pelvic and abdominal pain coming in waves. Baseline urinary issues. Urinary issues with incomplete emptying and possible retention. Patient has mild to moderate discomfort in pelvis and groin going to back and side in waves. Has been deconditioned from this. Has decreased mobility significantly with acute issues. Patient has been worsening since this morning. Has increasing abdominal pain issues and now having increasing trouble with voiding. Feels need to go but has been unable to go. Bilateral pain in the groin going down into the deep pelvis in waves. Feeling that he is having increasing distention as well. Denies significant bleeding. No severe nausea or vomiting. Currently no fevers. Discussed with patient multifactorial nature of urinary issues, retention, and incomplete bladder emptying. Issues likely chronic with signs of diverticulum and trabeculation throughout the bladder with bladder wall thickening. Also significant stone development. Had previously seen urology due to possible hemorrhagic cyst. Last seen in 2020. Discussed concerns and issues. Discussed decreased mobility and trouble v oiding. Discussed issues related to deconditioning and weakened state. Discussed possibility that patient had more moderate to severe issues and with the acute illness and deconditioning these issues became more prevalent and obvious. Discussed bowel function and possible issues related to decrease in function and its relation to other pelvic organs and systems. Discussed different medications, will use during hospitalization and their effect on ability to empty. Allergies Allergy/AdvReac Type Severity Reaction Status Date / Time COVID-19 vaccine, mRNA, AdvReac Unknown probable Verified 12/12/23 17:20 [id number], L reaction: [From [facility] ()] throat swelling Home Medications Medication Instructions Recorded Confirmed Type allopurinol 300 mg tablet 300 mg PO QAM 04/30/18 12/12/23 History atorvastatin 10 mg tablet 5 mg PO QAM 04/30/18 12/12/23 History cholecalciferol (vitamin D3) 50 2,000 unit PO QAM 04/30/18 12/12/23 History mcg (2,000 unit) capsule (Vitamin D3) omeprazole 40 mg capsule,delayed 40 mg PO DAILY 04/30/18 12/12/23 History release terazosin 5 mg capsule 5 mg PO HS 04/30/18 12/12/23 History montelukast 10 mg tablet 10 mg PO QAM 05/07/21 12/12/23 History apixaban 2.5 mg tablet (Eliquis) 2.5 mg PO BID #60 tabs 07/13/21 12/12/23 Rx diphenoxylate-atropine 2.5 1 tab PO QID PRN Diarrhea 07/10/22 12/12/23 History mg-0.025 mg tablet magnesium oxide 400 mg PO BID #60 caps 12/01/22 12/12/23 Rx calcium carbonate 1,500 mg PO BID 01/23/23 12/12/23 History cyanocobalamin (vitamin B-12) 1,000 mcg PO DAILY 01/23/23 12/12/23 History 1,000 mcg tablet eplerenone 25 mg tablet 12.5 mg PO DAILY 01/23/23 12/12/23 History triamcinolone acetonide 0.1 % 1 applic topical BID PRN flare up 01/23/23 12/12/23 History topical cream acyclovir 400 mg tablet 400 mg PO BID 03/28/23 12/12/23 History albuterol sulfate 90 mcg/actuation 2 puff inhalation QID PRN 03/28/23 12/12/23 History aerosol inhaler Shortness Of Breath Or Wheezing potassium chloride 20 mEq 20 meq PO DAILY 10/10/23 12/12/23 History tablet,extended release hydralazine 25 mg tablet 25 mg PO TID 12/08/23 12/12/23 History levothyroxine 75 mcg tablet 75 mcg PO QAM 12/08/23 12/12/23 History metoprolol succinate 50 mg 50 mg PO BID 12/08/23 12/12/23 History tablet,extended release 24 hr torsemide 20 mg tablet 40 mg PO QAM 12/08/23 12/12/23 History Patient History Medical History Obesity Chronic diarrhea WORSENING...REASON FOR UPCOMING PROCEDURES Thyroid disease Anxiety and depression Multiple myeloma dx 4 yr ago...current chemo tx monthly SOB (shortness of breath) SOB ON EXERTION...CT scan done 1-1.5 mon ago [facility]...form of blood clot and fluid ? extent , some kind of scarring - f/u with lung specialist - appointment not yet made History of pulmonary embolism History of DVT (deep vein thrombosis) Diarrhea Thrombocytopenia Elevated troponin I level Hypoxia 2019 novel coronavirus-infected pneumonia (NCIP) ? 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 HX Prolonged QT interval ? HX GERD (gastroesophageal reflux disease) BPH without obstruction/lower urinary tract symptoms Carpal tunnel syndrome Gout hx Restless leg syndrome Surgical History History of cardiac cath ? 2009 - unable to verify - no known hx stent(s) History of revision of total knee arthroplasty ? side...d/t infection History of pacemaker jun 2021/? type/recent check unknown details History of thoracentesis July [address] Jeffries. No bacterial growth or malignancy Pleurx catheter placed July 2019. Removed September 2019 History of appendectomy Status post total hip replacement, left History of esophagogastroduodenoscopy (EGD) History of colonoscopy History of tooth extraction History of cataract surgery RT/LEFT History of total right hip arthroplasty H/O sinus surgery unknown History of bilateral knee arthroplasty Hx of cholecystectomy Family History Father Heart disease Mother Diabetes Hypertension Brother Family hx of colon cancer Brother Family hx of colon cancer Social History Smoking Status: Never smoker Second Hand Exposure: No; Do You Dip or Chew Tobacco: No; Hx Alcohol Use: No Hx Substance Use: No Preferred Language: Khmer Communication Ability: Effective Communication Ability Comment: PT DAUGHTER SHADY DAY, SIGNS CONSENTS (PT LIMITED COMPREHENSION) Manager Field Investigations Required: No Beliefs That Will Affect Care: None marital status: Current Living Situation: Spouse and Family Current Living Situation Comment: lives with and daughter How many Children do You have: 2 Feels Safe at Home: Yes Safety Concerns: Feels Safe At This Time Assistive Devices: Cane, CPAP, Denture - Upper, Glasses and Walker Review of Systems Review of Systems: All systems reviewed & are unremarkable except as noted in HPI & below Physical Exam Physical Exam: General: Alert and oriented x 3 in no acute distress. Obese HEENT: Normocephalic Atraumatic. Inspection normal. Cranial Nerves 2-12 Grossly intact. Nares are clear. Neck is supple. Normal inspection of face. Normal inspection of neck. Neurologic: No deficits on inspection. Baseline for motor function and sensory. Psychologic: Normal affect. Respiratory: Nonlabored. No use of accessory muscles. No tachypnea or dyspnea. Cardiovascular: No tachycardia Skin: [place] and Dry. No rashes or visible lesions. Extremities: Moving without issues. No motor deficits on inspection Lymphatics: Moderate edema Abdomen: Obese. Moderate distended. No rebound however some mild guarding due to increasing abdominal pain. Tenderness Results & Data Vital Signs (Past 12 Hours) Vital Signs Temp Pulse Pulse Resp BP BP BP 12/13/23 04:05 36.6 C 70 20 122/63 12/12/23 23:55 101 H 28 H 12/12/23 23:52 12/12/23 23:37 36.8 C 73 22 141/88 H 12/12/23 22:00 93 H 19 148/71 H 12/12/23 22:00 82 12/12/23 20:09 78 18 144/98 H 12/12/23 19:50 36.8 C 82 16 138/80 Pulse Ox O2 Del Method FiO2 12/13/23 04:05 98 Room Air 12/12/23 23:55 98 21 12/12/23 23:52 Room Air, CPAP 12/12/23 23:37 95 Room Air 12/12/23 22:00 97 Room Air 12/12/23 22:00 12/12/23 20:09 12/12/23 19:50 94 Room Air PG Care Time/CCT Total # of Minutes Spent Total Time Spent with Patient: Total time spent is greater than 50% in coordination of care (as documented) at patient's floor/unit and/or counseling patient: Coding Level of Care Code 80785 INT INP/OBS CARE 3/75MIN Diagnoses Bladder calculi N21.0 Lower abdominal pain R10.30 Chronic retention of urine R33.9 Acute on chronic diastolic heart failure with preserved ejection fraction I50.33 CKD (chronic kidney disease) N18.9 Chronic kidney disease stage: unspecified stage Atrial fibrillation with rapid ventricular response I48.91 Acute on chronic diastolic CHF (congestive heart failure) I50.33 (5) CKD (chronic kidney disease) Chronic kidney disease stage: unspecified stage Qualified Code(s): N18.9 - Chronic kidney disease, unspecified
[2023-12-13] MEDS: oxyCODONE HCL IR 5 MG TAB (IMMEDIATE RELEASE) PO PRN (09:09)
--- NOTE | 2023-12-13 09:21 | Hospitalist Progress Note ---
Date of Service December 13, 2023 Assessment & Plan (1) Confusion: (2) Abdominal pain: Plan: - unclear cause of pt's mental status change - CT head negative - mental status now much improved/ seems back to baseline - received IVF in the ED ? infectious etiology - pt afebrile, and WBC not elevated - UA- negative, CXR- mild congestive change, no sign of pna, blood cultx - pending, procalcitonin- negative Abdominla pain CT abd./pelvis obtained on 12/07 c/w bladder stone, UA negative at that time - continues to have pain in lower abd. quadrants/suprapubic - per daughter, pt seen by [facility] urology- Dr. Burnette in the past, but not aware of any renal stones - current UA negative - obtained renal US - 1. The kidneys demonstrate mild cortical atrophy and are without hydronephrosis 2. The bladder is decompressed and grossly unremarkable. 3. A 12 mm bladder calculus is noted. - Urology consulted - appreciate their input - cont. pain control w/ tylenol and oxycodone prn - for now npo until seen by urology (3) Atrial fibrillation: Plan: also hx of deborah-tachy syndrome s/p pacer - follows w/ [facility] cardiology - cont. eliquis and metoprolol - monitor on tele Hx of diastolic CHF - seems euvolemic - some mild vasc. congestion CXR - breathing comfortably on RA - pro-BNP wnl - cont. torsemide hx of CAD - cont. home cardiac meds (4) CKD (chronic kidney disease), stage III: Plan: - baseline Cr lately 1.7-2.3 - current 1.8 - cont. to monitor - try to avoid nephrotoxic agents Hypothyroidism - cont. home levothyroxine - current TSH 3.4 wnl MM - follows w/ a local cancer center (5) Obstructive sleep apnea on CPAP: Plan: - CPAP HS Admission and Anticipated Discharge Date Admission Date: December 12, 2023 Subjective Pt seen in follow up of AMS, abd. pain, bladder stone Currently sitting up in a chair, in no acute distress, however says that he agai n has lower abdominal pain bilaterally. Patient has been n.p.o. after midnight, he only took medications this morning. When he woke up he did not have any significant abdominal pain, and he feels that last evening it was also manageable. Now unfortunately uncomfortable again due to pain. Mental status seems to be back to baseline, he is able to answer questions appropriately. No fevers chills chest pain shortness of breath. Voiding seems difficult. Urology was consulted, awaiting recommendations. Review of Systems Review of Systems: All systems reviewed & are unremarkable except as noted in Subjective Physical Exam Physical Exam: Constitutional: Obese elderly M in NAD Eyes: PERRL, EOMI, conju nctivae normal, an icteric sclerae ENMT: external ear and n ose normal, oropha rynx normal Neck: + short neck (sup ple) Respiratory: normal respiratory effort, lungs rachel ar to auscultation Cardiovascular: RRR, no murmur, no edema Chest (Breasts): Chest: normal insp ection of chest Gastrointestinal ( Abdomen): soft, obese, tende r to palp. lower a bd. quadrants b/l, + bowel sounds Musculoskeletal: movese extremities Skin: no rashes, warm an d dry Neurologic: PERRL, EOMI, no fa ce palsy, no dysar thria, moves extre mities Psychiatric: A+Ox3, euthymic af fect Lymphatic: no lymphedema Results & Data Results & Data Vital Signs (Past 12 Hours) Vital Signs Temp Pulse Pulse Resp BP BP BP 12/13/23 07:48 71 12/13/23 07:44 36.6 C 81 18 150/87 H 12/13/23 04:05 36.6 C 70 20 122/63 12/12/23 23:55 101 H 28 H 12/12/23 23:52 12/12/23 23:37 36.8 C 73 22 141/88 H 12/12/23 22:00 93 H 19 148/71 H 12/12/23 22:00 82 Pulse Ox O2 Del Method FiO2 12/13/23 07:48 12/13/23 07:44 95 Room Air 12/13/23 04:05 98 Room Air 12/12/23 23:55 98 21 12/12/23 23:52 Room Air, CPAP 12/12/23 23:37 95 Room Air 12/12/23 22:00 97 Room Air 12/12/23 22:00 Laboratory Results 12/13/23 12/13/23 12/12/23 Range/Units 08:31 05:39 18:15 WBC 7.75 (4.8-10.8) K/ul RBC 4.31 L (4.70-6.10) M/uL Hgb 14.3 (14.0-18.0) g/dl Hct 41.0 L (42.0-52.0) % MCV 95.1 (80.0-100.0) fL MCH 33.2 (25.0-34.0) pg MCHC 34.9 (32.0-36.0) g/dL RDW Std Deviation 49.3 H (36.4-46.3) fL RDW Coeff of [place] 14.1 (11.5-14.5) % Plt Count 175 (130-400) K/uL MPV 11.9 (9.4-12.4) fL Immature Gran % (Auto) % Neut % (Auto) % Lymph % (Auto) % [place] % (Auto) % Eos % (Auto) % Baso % (Auto) % Neut # (Auto) (1.40-6.50) K/uL Lymph # (Auto) (1.20-3.40) K/uL [place] # (Auto) (0.11-0.59) K/uL Eos # (Auto) (0.00-0.50) K/uL Baso # (Auto) (0.00-0.20) K/uL Immature Gran # (Auto) (0.01-0.20) K/uL Sodium 141 (136-145) mmol/L Potassium 4.0 TNP (3.5-5.1) mmol/L Chloride 101 (98-107) mmol/L Carbon Dioxide 30 (21-32) mmol/L Anion Gap 10 (3-11) BUN 28 H (6-23) mg/dl Creatinine 1.81 H (0.6-1.4) mg/dl Est Cr Clr Drug Dosing 38.7 Est GFR ( Amer) 39.2 ml/min Est GFR (Non-Af Amer) 33.8 ml/min BUN/Creatinine Ratio 15.5 (10-20) Glucose 100 H (70-99(Fasting)) mg/dl Calcium 8.3 L (8.6-10.3) mg/dl Phosphorus 5.0 H (2.5-4.9) mg/dl Magnesium 2.0 (1.7-2.4) mg/dl Total Bilirubin 1.2 H (0.2-1.0) mg/dl AST 22 TNP (13-39) U/L ALT 12 (7-52) U/L Alkaline Phosphatase 51 (34-104) U/L Lactate Dehydrogenase (86-244) U/L B-Natriuretic Peptide 95 (0-100) pg/ml Total Protein 6.2 (6.0-8.3) gm/dl Albumin 3.6 (3.4-5.0) gm/dl Globulin 2.6 (2.5-4.0) gm/dl Albumin/Globulin Ratio 1.4 (0.9-2) Lipase (11-82) U/L Procalcitonin (0-0.5) ng/ml TSH 3.406 (0.300-4.500) uIu/ml Urine Color Urine Appearance (Clear) Urine pH (4.5-7.5) Ur Specific [place] (1.000-1.030) Urine Protein (Negative) Urine Glucose (UA) (Negative) Urine Ketones (Negative) Urine Blood (Negative) Urine Nitrite (Negative) Urine Bilirubin (Negative) Urine Urobilinogen (Negative) Ur Leukocyte Esterase (Negative) Urine WBC (Auto) (0-5) /hpf Urine RBC (Auto) (0-2) /hpf U Hyaline Cast (Auto) (0-2) /lpf U Epithel Cells (Auto) (0-2) /hpf Urine Bacteria (Auto) (None Seen) 12/12/23 12/12/23 Range/Units 17:40 13:32 WBC 7.90 (4.8-10.8) K/ul RBC 4.50 L (4.70-6.10) M/uL Hgb 14.9 (14.0-18.0) g/dl Hct 44.0 (42.0-52.0) % MCV 97.8 (80.0-100.0) fL MCH 33.1 (25.0-34.0) pg MCHC 33.9 (32.0-36.0) g/dL RDW Std Deviation 52.1 H (36.4-46.3) fL RDW Coeff of [place] 14.5 (11.5-14.5) % Plt Count 178 (130-400) K/uL MPV 11.5 (9.4-12.4) fL Immature Gran % (Auto) 0.4 % Neut % (Auto) 68.2 % Lymph % (Auto) 18.4 % [place] % (Auto) 8.6 % Eos % (Auto) 3.5 % Baso % (Auto) 0.9 % Neut # (Auto) 5.39 (1.40-6.50) K/uL Lymph # (Auto) 1.45 (1.20-3.40) K/uL [place] # (Auto) 0.68 H (0.11-0.59) K/uL Eos # (Auto) 0.28 (0.00-0.50) K/uL Baso # (Auto) 0.07 (0.00-0.20) K/uL Immature Gran # (Auto) 0.03 (0.01-0.20) K/uL Sodium 139 (136-145) mmol/L Potassium 3.8 (3.5-5.1) mmol/L Chloride 101 (98-107) mmol/L Carbon Dioxide 31 (21-32) mmol/L Anion Gap 7 (3-11) BUN 28 H (6-23) mg/dl Creatinine 1.99 H (0.6-1.4) mg/dl Est Cr Clr Drug Dosing Not Reportable Est GFR ( Amer) 35.0 ml/min Est GFR (Non-Af Amer) 30.2 ml/min BUN/Creatinine Ratio 14.1 (10-20) Glucose 123 H (70-99(Fasting)) mg/dl Calcium 8.5 L (8.6-10.3) mg/dl Phosphorus (2.5-4.9) mg/dl Magnesium (1.7-2.4) mg/dl Total Bilirubin 1.2 H (0.2-1.0) mg/dl AST 21 (13-39) U/L ALT 13 (7-52) U/L Alkaline Phosphatase 65 (34-104) U/L Lactate Dehydrogenase 206 (86-244) U/L B-Natriuretic Peptide (0-100) pg/ml Total Protein 6.4 (6.0-8.3) gm/dl Albumin 4.0 (3.4-5.0) gm/dl Globulin 2.4 L (2.5-4.0) gm/dl Albumin/Globulin Ratio 1.7 (0.9-2) Lipase 34 (11-82) U/L Procalcitonin 0.04 (0-0.5) ng/ml TSH (0.300-4.500) uIu/ml Urine Color Yellow Urine Appearance Clear (Clear) Urine pH 5.5 (4.5-7.5) Ur Specific [place] 1.021 (1.000-1.030) Urine Protein Trace H (Negative) Urine Glucose (UA) Negative (Negative) Urine Ketones Negative (Negative) Urine Blood Negative (Negative) Urine Nitrite Negative (Negative) Urine Bilirubin Negative (Negative) Urine Urobilinogen Negative (Negative) Ur Leukocyte Esterase Negative (Negative) Urine WBC (Auto) 0-5 (0-5) /hpf Urine RBC (Auto) 0-2 (0-2) /hpf U Hyaline Cast (Auto) 0-2 (0-2) /lpf U Epithel Cells (Auto) 0-2 (0-2) /hpf Urine Bacteria (Auto) None Seen (None Seen) Medications Administered Current Inpatient Medications Acetaminophen (Acetaminophen 325 Mg Tab) 650 mg PO Q4H PRN PRN Reason: Pain or Fever Stop: 01/11/24 17:51 Albuterol (Albuterol Hfa 8 Gm Inhaler) 2 puffs INH QID PRN PRN Reason: Shortness Of Breath Or Wheezin Stop: 01/11/24 23:36 Apixaban (Apixaban 2.5 Mg Tab) 2.5 mg PO BID [facility] Stop: 01/11/24 23:36 Last Admin: 12/13/23 08:15 Dose: 2.5 mg Acetaminophen (Ofirmev) 1,000 mg in 100 mls @ 400 mls/hr IV NOW STA Stop: 12/13/23 09:26 Levothyroxine Sodium (Levothyroxine Sodium 75 Mcg Tablet) 75 mcg PO DAILYBB [facility] Stop: 01/12/24 06:29 Last Admin: 12/13/23 05:41 Dose: 75 mcg Metoprolol Succinate (Metoprolol Succ 50mg Ext Rel Tab) 50 mg PO BID [facility] Stop: 01/11/24 23:36 Last Admin: 12/13/23 08:15 Dose: 50 mg Oxycodone HCl (Oxycodone Hcl Ir 5 Mg Tab (Immediate Release)) 5 mg PO Q6H PRN PRN Reason: Pain Stop: 12/26/23 18:37 Last Admin: 12/13/23 09:09 Dose: 5 mg
[2023-12-13] MEDS: ACETAMINOPHEN 1,000 MG/100 ML VIAL IV STA (09:25)
--- OUTSIDE RECORDS SUMMARY | 2023-12-13 09:57 | External Medical Summary | Summary of Care ---
Author Name Unknown Organization [facility] Address [address] [facility] [place] [address] Phone [phone] Care Team Providers Care Training Mgr Name Role Phone Telma Jacobs Primary Care Provider Reason for Visit * Reason Onset Date Comments Appointment 12/12/2023 [facility] appointment Encounter Details Date Type Department Care Team (Late st Contact Info) Description 12/12/2023 Telephone Cardiology, [facility] [address] [facility] [place] [address] [facility] [address] [facility] [address] Appointment ([facility] appointment ) Allergies No known active allergiesdocumented as of this encounter (statuses as of 12/12/2023) Medications Medication Sig Dispensed Refills Start Date End Date Status acyclovir (ZOVIRAX) 400 MG Tablet Take 1 Tablet by mouth in the morning and 1 Tablet before bedtime. Active Meclizine HCl 12.5 MG Oral Tablet (ANTIVERT)Indications :Dizziness Take 1 Tab by mouth 3 times a day as needed for Dizziness. 30 Tab 04/12/2020 Active hydrOXYzine Pamoate 25 MG Oral Capsule (Vistaril) Take 1 Cap by mouth 3 times a day as needed for Itching. 30 Cap 02/03/2021 Active Hydrocortisone 2.5 % External Cream Apply topically to affected area 2 times a day. To affected area. 30 g 02/03/2021 Active Apixaban 2.5 MG Oral Tablet (Eliquis) Take 1 Tablet by mouth 2 times a day. 180 Tablet 3 07/27/2021 Active home oxygen/equipment IN GAS CPAP 07/13/2021 Active Calcium Carbonate 1500 (600 Ca) MG Oral Tablet Take 2 Tablets by mouth in the morning and 2 Tablets before bedtime. 11/25/2022 Active Albuterol Sulfate HFA 108 (90 Base) MCG/ACT Inhalation Aerosol Solution INHALE 2 PUFFS BY MOUTH EVERY 4 HOURS NEEDED FOR COUGH FOR SHORTNESS OF BREATH OR WHEEZE 18 g 1 03/20/2023 Active hydrALAZINE HCl 25 MG Oral Tablet (Apresoline)Indicatio ns:HTN, goal below 140/90 TAKE 1 TABLET BY MOUTH IN THE MORNING AND 1 TABLET AT AT NOON AND 1 TABLET AT BEDTIME 270 Tablet 3 03/19/2023 Active Allopurinol 300 MG Oral Tablet (Zyloprim) TAKE 1 TABLET BY MOUTH EVERY DAY 90 Tablet 1 03/20/2023 Active Levothyroxine Sodium 75 MCG Oral Tablet (Levoxyl) Take 1 Tablet by mouth in the morning. (at least 30 min prior to breakfast or other meds). 30 Tablet 11 05/06/2023 Active Torsemide 40 MG Oral Tablet Take 40 mg by mouth in the morning. 90 Tablet 3 05/08/2023 Active Diphenoxylate-Atropin e 2.5-0.025 MG Oral Tablet (Lomotil) Take 1 Tablet by mouth 4 times a day as needed for Diarrhea. 120 Tablet 1 08/13/2023 Active Terazosin HCl 5 MG Oral Capsule (Hytrin) TAKE 1 CAPSULE BY MOUTH EVERYDAY AT BEDTIME 90 Capsule 3 08/20/2023 Active B-12 1000 MCG Oral Capsule TAKE 1 TABLET ORALLY EVERY 48 HOURS. 30 Capsule 5 08/26/2023 Active DULoxetine HCl 30 MG Oral Capsule Delayed Release Particles (Cymbalta) Take 1 Capsule by mouth in the morning. Do not cut, crush or chew. 30 Capsule 3 10/08/2023 Active Magnesium Oxide -Mg Supplement 400 (240 Mg) MG Oral Tablet (Mag-Ox) Take 1 Tablet by mouth in the morning and 1 Tablet before bedtime. 180 Tablet 3 10/08/2023 Active Potassium Chloride ER 20 MEQ Oral Tablet Extended Release Take 30 MEQ by mouth daily. 10/09/2023 Active D3 Super Strength 50 MCG (1999 UT) Oral Capsule (Cholecalciferol)Shawna cations:Hypocalcemia TAKE 1 CAPSULE BY MOUTH EVERY DAY IN THE MORNING 90 Capsule 1 11/06/2023 Active Atorvastatin Calcium 10 MG Oral Tablet (Lipitor)Indications: ASCVD (arteriosclerotic cardiovascular disease),Dyslipidemia , goal LDL below 70 TAKE 1/2 TABLET BY MOUTH DAILY 45 Tablet 3 11/06/2023 Active Montelukast Sodium 10 MG Oral Tablet (Singulair)Indication s:Acute sinusitis, recurrence not specified, unspecified location Take 1 Tablet by mouth in the morning. 90 Tablet 1 11/09/2023 Active Omeprazole 40 MG Oral Capsule Delayed Release (PriLOSEC)Indications :Hypothyroidism, unspecified type TAKE 1 CAPSULE BY MOUTH EVERY DAY 1 HOUR BEFORE THE FIRST MEAL OF THE DAY 90 Capsule 1 11/13/2023 Active Metoprolol Succinate ER 50 MG Oral Tablet Extended Release 24 Hour (toPROL XL)Indications:PAF (paroxysmal atrial fibrillation) ([facility]) Take 1 Tablet by mouth 2 times a day. 60 Tablet 5 11/19/2023 Active Eplerenone 25 MG Oral Tablet (Inspra)Indications:C hronic diastolic CHF (congestive heart failure), NYHA class 3 ([facility]) Take 0.5 Tablets by mouth in the morning. 45 Tablet 3 12/05/2023 Active Ondansetron HCl 8 MG Oral Tablet (Zofran) Take 1 Tablet by mouth every 8 hours as needed for Nausea. 120 Tablet 12/10/2023 01/09/2024 Active Sucralfate 1 GM Oral Tablet (Carafate) Take 1 Tablet by mouth in the morning and 1 Tablet before bedtime. 120 Tablet 1 12/10/2023 Active Hospital, Clinic, or Other Facility Administered Medication Ordered Dose Route Frequency Start Date End Date Status albuterol sulfate (PROVENTIL) (2.5 MG/3ML) 0.083% inhalation solution 2.5 mgIndications:SOB (shortness of breath) 2.5 mg NEBULIZER Q4H PRN 10/27/2017 Act leonela Albuterol Sulfate (Proventil) (2.5 MG/3ML) 0.083% inhalation solution 2.5 mgIndications:FARAH (dyspnea on exertion) 2.5 mg NEBULIZER ONCE PRN 01/15/2023 01/15/2024 Act leonela documented as of this encounter (statuses as of 12/12/2023) Active Problems Problem Noted Date Diagnosed Date Abdominal pain, generalized 12/10/2023 Nausea without vomiting 12/10/2023 Bladder stone 12/10/2023 Left foot pain 10/22/2023 Memory changes 10/08/2023 Adjustment disorder with mix ed disturbance of emotions and conduct 10/08/2023 Abrasion 10/08/2023 Chronic pulmonary embolism 01/15/2023 Hospital discharge follow-up 12/05/2022 Persistent atrial fibrillation 12/05/2022 Hypomagnesemia 12/05/2022 Pulmonary embolus 07/04/2022 Scarring of lung 07/04/2022 Vitamin D deficiency 05/07/2022 B12 deficiency 05/07/2022 Nostril infection 02/12/2022 Tachy-deborah syndrome 05/27/2021 LBBB (left bundle branch block) 05/27/2021 PAF (paroxysmal atrial fibrillation) 05/27/2021 Coronary artery disease invo lving galena coronary artery of galena heart without angina pectoris 05/27/2021 Chronic heart failure with preserved ejection fr action 05/27/2021 Poison annabelle dermatitis 02/03/2021 Major depressive disorder, recurrent episode, mo derate 01/03/2021 Class 2 severe obesity due t o excess calories with serious comorbidity and body mass index (BMI) of 38.0 to 38.9 in adult 11/06/2020 Angio-edema 10/25/2020 History of 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 (PE) 10/22/2020 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 0 10/22/2020 History of Clostridium difficile infection 10/22 Stage 3b chronic kidney disease 10/22/2020 Body mass index (BMI) of 40.0 to 44.9 in adult 1 Overview: Per Obesity protocol Hypoalbuminemia 04/12/2020 Acute decompensated heart failure 04/12/2020 Multiple myeloma not having achieved remission 0 07/22/2019 Gastroesophageal reflux disease without esophagi tis 07/22/2019 Selective deficiency of immunoglobulin m (igm) 0 07/22/2019 Selective deficiency of immunoglobulin a (iga) 0 07/22/2019 Hypertensive heart and kidne y disease with chronic diastolic congestive heart failure and stage 3 chronic kidney disease 06/10/2019 Monoclonal paraproteinemia 03/17/2019 Chronic diastolic CHF (conge stive heart failure), NYHA class 3 03/04/2018 Gastroesophageal reflux disease 03/04/2018 Gout 12/10/2016 Dyslipidemia, goal LDL below 70 11/20/2015 Elevated prostate specific antigen (PSA) 015 HTN, goal below 140/90 09/13/2014 NAHEED (obstructive sleep apnea) 12/09/2013 Overview: on bipap ASCVD (arteriosclerotic cardiovascular disease) 10/22/2012 Restless legs syndrome 04/10/2010 Generalized osteoarthritis 11/06/2009 BPH without obstruction/lower urinary tract symp toms 11/06/2009 Hypothyroidism (acquired) documented as of this encounter (statuses as of 12/12/2023) Resolved Problems Problem Noted Date Diagnosed Date Resolved Date Tachy-deborah syndrome 06/25/2021 022 Major depressive disorder, r ecurrent episode, moderate 11/06/2020 11/06/2020 Class 2 severe obesity due t o excess calories with serious comorbidity and body mass index (BMI) of 38.0 to 38.9 in adult 07/22/2019 0 Overview: Per Obesity protocol Hypertensive heart disease w ith diastolic heart failure and stage 3 chronic kidney disease 03/04/2018 11/10/2018 Hyperparathyroidism 07/17/2016 11/11/19 19 Kidney disease, chronic, sta ge III (GFR 30-59 ml/min) 02/19/2016 11/10/2018 Overview: Per CKD protocol #[address] scan 10/03/2014 12/06/2016 Overview: Seems to be gone and therefore, possibly related to an infection or other benign process. Obesity, morbid (more than 1 00 lbs over ideal weight or BMI > 40) 12/09/2013 07/22/2019 Overview: bmi= 43.05 12/09/13 S/P total hip arthroplasty 12/09/2013 0 12/06/2016 Left upper lobe pneumonia 09/23/2012 CARPAL TUNNEL SYNDROME S/P CTR 03/1705/06/2011 12/06/2016 Pain in limb 01/28/2011 12/06/2016 RIGHT KNEE JOINT REPLACEMENT STATUS 12/25/2010 12/06/2016 Heart failure, diastolic, due to HTN 12/25/2010 07/21/2019 Overview: duplicate Persistent insomnia 12/25/2010 11/11/19 19 Venous thrombosis 11/01/2010 09/09/2011 VENOUS THROMBOSIS PROPHYLAXIS 10/10/2010 10/25/2010 nursing home current use of ant icoagulant therapy 10/10/2010 12/25/2010 Overview: ICD-10 update of inactive term Anticoagulation management encounter 10/10/2010 09/09/2011 Joint effusion, knee 08/15/2010 017 Obstructive sleep apnea 12/19/200908/2016 MORBID OBESITY 12/19/2009 12/25/2010 MORBID OBESITY, BMI= 41.82 11/06/09 11/06/2009 12/06/2016 Loss of height 11/06/2009 12/25/2010 Screening for prostate cancer 11/06/2009 12/25/2010 Anticoagulation management encounter 07/27/2009 11/06/2009 Venous thrombosis 07/27/2009 11/06/2009 Swelling, mass, or lump in head and neck 10/14/2008 11/06/2009 ADVANCE DIRECTIVE INFORMATION 12/19/2004 03/04/2018 Overview: No, Advance Directive brochure given to patient at prior appointment. HTN, goal below 140/90 11/05/200012/19 Gout 12/10/2016 Organic sleep disorder 11/10 Anemia 03/04/2018 Benign neoplasm of colon 08/2016 Overview: colonoscopy 2003 Kidney disease, chronic, sta ge III (GFR 30-59 ml/min) 03/03/2013 HTN, goal below 130/80 12/09 HTN, goal below 140/80 09/13 documented as of this encounter (statuses as of 12/12/2023) Immunizations Name Administration Dates Next Due COVID-19 mRNA, LNP-s, No Pre serve, 2-Dose Series (Pfizer) 09/04/2020 H1N1 2009 Influenza, IM 08/11/2009 Pneumococcal Conjugate Vacc, 13 Valent (Prevnar) 11/20/2015 Pneumococcal Polysaccharide PPV23 (Pneumovax) 11/04/2012,01/16/2006 RSV Vac., Bivalent, Perfusio n F, Pf,0.5 Ml (Abrysvo) 08/13/2023 Seasonal Influenza Virus Vac cine, Unspecified Formulation 04/27/2021,03/27/2020,03/17/2019,03/2018,05/22/2017,04/03/2016,04/28/20 15,04/14/2014,03/24/2013,03/11/2012,1 ,05/11/2010,05/01/2009,05/11,04/17/2006,05/03/2003 Seasonal Influenza, PF, 6 M & above, IM , (FluLaval or Fluzone) 03/27/2020,03/17/2019,05/15/2018,05/0705/22/2018 Seasonal Influenza, Quadriva lent Hd (Fluzone Hd) 03/15/2022,04/27/2021 Seasonal Influenza, Quadriva lent Hd, 65+ Yrs 04/01/2023 Seasonal Influenza, Quadriva lent, No Preserve, IM 04/03/2016,04/28/2015 Seasonal Influenza, Split, I IV3, With Preserve, Inj 04/14/2014,03/24/2013,03/11/2012,04/08,05/11/2010,05/01/2009,05/11/20 07,04/17/2006 TD, Preservative Free 06/23/2007 TDAP (age 10 and older)(Boostrix) 10/08/2023 Varicella Zoster Vaccine (Adult) 07/24/2013,03/09 documented as of this encounter Social History Tobacco Use Types Packs/Day Years Used Date Smoking Tobacco: Never Smokeless Tobacco: Never Comments:No passive smoke ex posures Alcohol Use Standard Drinks/Week Comments No 0 (1 standard drink = 0.6 oz pur e alcohol) none PHQ-2 Answer Date Recorded PHQ Adult Total Score 0 05/14/2021 Hunger Vital Sign Answer Date Recorded Worried About Running Out of Food in the Last Ye ar Never true 06/10/2019 Ran Out of Food in the Last Year Never true 06/10/2019 Sex and Gender Information Value Date Recorded Sex Assigned at Male 02/22/2019 10:01 AM EDT Gender Identity Male 02/22/2019 10:01 AM EDT Sexual Orientation Not on file Job Start Date Occupation Industry Not on file Not on file Not on file documented as of this encounter Miscellaneous Notes * Telephone Encounter - Nicole Miguel LPN - 12/12/2023 10:01 AM EDT MyG message sent to patient regarding cancellation of [facility] appointment 01/07/2024. Patient is monitored remotely. IOC not indicated at this time. documented in this encounter Plan of Treatment Upcoming Encounters Date Type Department Care Team (Late st Contact Info) Description 01/07/2024 9:30 AM EDT Cardiac Studies Cardiology, [facility] [address] [facility] [place] [address] [facility] [address] [facility] [place] [address] 01/13/2024 2:30 PM EDT Office Visit Urology, [facility] [id number] [place] [address] Kvng Hart MD [facility] [address] [place] [address] 02/19/2024 8:30 AM EDT Office Visit Cardiology, [facility] [address] [facility] [place] [address] Amadeo Gomez PA-C [address] [facility] [place] [address] Health Maintenance Due Date Last Done Comments Zoster Vaccines (1 of 2) 09/18/2013 07/24/2013, 03/09 COVID-19 Vaccine (2 - Pfizer risk series) 09/25/2020 09/04/2020 Albumin/Creatinine Ratio 01/11/2022 021, 01/28/2011, 11/20/2009, Additional history exists CKD PHOS USE SMARTSET 81335 05/02/202304/07, 12/20/2020, 10/29/2020, Additional history exists GFR 05/21/2024 11/19/2023, 10/05, 10/10/2023, Additional history exists CKD HGB USE SMARTSET 12633 11/18/202411/18, 10/10/2023, 07/24/2023, Additional history exists TSH 11/18/2024 11/19/2023, 07/07, 04/15/2023, Additional history exists DTaP,Tdap,and Td Vaccines (2 - Td or Tdap) 10/07/2033 10/08/2023, 06/23/2007 Pneumococcal Vaccine: 65+ Years Completed 11/20/2015, 11/04/2012, 01/16/2006 Influenza Vaccine (FLU shot) Completed , 03/15/2022, 04/27/2021, Additional history exists GARDASIL-HPV IMMUNIZATION SERIES Aged Out No longer eligible based on patient's age to complete this topic Hepatitis B Aged Out No longer eligi ble based on patient's age to complete this topic MENINGOCOCCAL (MENACTRA/MENVEO) Aged Out No longer eligible based on patient's age to complete this topic documented as of this encounter Medical Devices Implanted Type Area Vision Impaired Teacher Device Identifier Shelf Expiration Date Model / Serial / Lot Cement Antibiotic Bone - [id number] Implanted:Qty: 5 on 10/10/2010 at OR [facility] Right: Knee [employer] 03/06/2012 6197-9-01 0 / / [id number] Surface Articular - [id number] Implanted:Qty: 1 on 10/10/2010 at OR [facility] Right: Knee [employer] 10/04/2018 00-5994-0 32-14 / / [id number] Augment Blk Dist Fem F 10mm - [id number] Implanted:Qty: 2 on 10/10/2010 at OR [facility] Right: Knee [employer] 09/03/2015-5490-0 36-20 / / [id number] Augment Blk Post Fem F 10mm - [id number] Implanted:Qty: 1 on 10/10/2010 at OR [facility] Right: Knee [employer] 06/05/2015-5490-0 36-02 / / [id number] Patella Poly Nexgen - [id number] Implanted:Qty: 1 on 10/10/2010 at OR [facility] Right: Knee [employer] 07/06/2018-5972-0 65-32 / / [id number] Cement Antibiotic Bone - [id number] Implanted:Qty: 1 on 10/10/2010 at OR [facility] [employer] : [employer] 6197-9-01 0 / / Plug 20/24mm Insert - [id number] Implanted:Qty: 1 on 10/10/2010 at OR [facility] Right: Knee [employer] -8011-0 20- / / [id number] Stem Extension 5988-04-18 - [id number] Implanted:Qty: 1 on 10/10/2010 at OR [facility] Right: Knee [employer] 09/03/2020-5988-0 10- / / [id number] Femur Porous Lcck - [id number] Implanted:Qty: 1 on 10/10/2010 at OR [facility] Right: Knee [employer] 12/04/2019 00-5994-0 16-92 / / [id number] Augment Blk Trab Knee Tib 10mm - [id number] Implanted:Qty: 1 on 10/10/2010 at OR [facility] Right: Knee [employer] 05/06/2015-5448-0 03- / [id number] Augment Blk Dist Fem F 10mm - [id number] Implanted:Qty: 1 on 10/10/2010 at OR [facility] Right: Knee [employer] 09/03/2015 00-5490-0 36-20 / / [id number] Augment Blk Post Fem F 5mm - [id number] Implanted:Qty: 1 on 10/10/2010 at OR [facility] Right: Knee [employer] 09/03/2015 00-5490-0 36- / / [id number] Plate Tibial Nexgen - [id number] Implanted:Qty: 1 on 10/10/2010 at OR [facility] Right: Knee [employer] 09/03/2020-5980-0 37- / [id number] Stem Extension 5988-04-18 - [id number] Implanted:Qty: 1 on 10/10/2010 at OR [facility] Right: Knee [employer] 06/05/2020-5988-0 04-18 / [id number] Lead Pace Selectsecure 3830-69 - [id number] - [id number] Implanted:Qty: 1 on 06/25/2021 by Gilma John DO at OR [facility] Left: Heart [employer] : [facility] 05/16/2023 [id number] / [id number] / Description: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 - [id number] - [id number] Implanted:Qty: 1 on 06/25/2021 by Gilma John DO at OR [facility] Left: Heart [employer] : [facility] 04/12/2023 5076-52 / [id number] / Description:Right Atrial Jayleen d Pacemaker Sylvia Xt Dr Smith ls - [id number] - [id number] Implanted:Qty: 1 on 06/25/2021 by Gilma John DO at OR [facility] Left: Chest [employer] 12/01/2022 [id number] / [id number] / Envelope Antibacterial Tyrx - [id number] Implanted:Qty: 1 on 06/25/2021 by Gilma John DO at OR [facility] Left: Chest [employer] : [facility] [id number] 02/16/2022 [id number] / / [id number] documented as of this encounter Advance Directives * Full Code (Latest Code Status on File) Date Activated Date Inactivated Comments 10/10/2010 10:23 AM 10/12/2010 3:38 PM This order re flects the patients wishes and were consensually agreed upon. Care Teams Training Mgr Relationship Specialty Start Date End Date Telma Jacobs CRNP [address] [place] [id number] PCP - General Nurse Practitioner 02/12/22 documented as of this encounter
--- OUTSIDE RECORDS SUMMARY | 2023-12-13 09:58 | External Medical Summary | Summary of Care ---
Author Name Unknown Organization [facility] Address [address] [facility] [place] [address] Phone [phone] Care Team Providers Care Tube Machine Operator Helper Name Role Phone Telma Jacobs Primary Care Provider Reason for Visit * Reason Onset Date Comments Medication Question 12/10/2023 Encounter Details Date Type Department Care Team (Late st Contact Info) Description 12/10/[address] [facility] [address] [place] [address] Telma Jacobs CRNP [address] [place] [address] Medication Question Allergies No known active allergiesdocumented as of this encounter (statuses as of 12/10/2023) Medications Medication Sig Dispensed Refills Start Date End Date Status acyclovir (ZOVIRAX) 400 MG Tablet Take 1 Tablet by mouth in the morning and 1 Tablet before bedtime. Active Meclizine HCl 12.5 MG Oral Tablet (ANTIVERT)Indicati ons:Dizziness Take 1 Tab by mouth 3 times a day as needed for Dizziness. 30 Tab 0 Active hydrOXYzine Pamoate 25 MG Oral Capsule (Vistaril) Take 1 Cap by mouth 3 times a day as needed for Itching. 30 Cap 1 Active Hydrocortisone 2.5 % External Cream Apply topically to affected area 2 times a day. To affected area. 30 g 1 Active Apixaban 2.5 MG Oral Tablet (Eliquis) Take 1 Tablet by mouth 2 times a day. 180 Tablet 3 2 Active home oxygen/equipment IN GAS CPAP 2 Active Calcium Carbonate 1500 (600 Ca) MG Oral Tablet Take 2 Tablets by mouth in the morning and 2 Tablets before bedtime. 3 Active Albuterol Sulfate HFA 108 (90 Base) MCG/ACT Inhalation Aerosol Solution INHALE 2 PUFFS BY MOUTH EVERY 4 HOURS NEEDED FOR COUGH FOR SHORTNESS OF BREATH OR WHEEZE 18 g 1 3 Active hydrALAZINE HCl 25 MG Oral Tablet (Apresoline)Indica tions:HTN, goal below 140/90 TAKE 1 TABLET BY MOUTH IN THE MORNING AND 1 TABLET AT AT NOON AND 1 TABLET AT BEDTIME 270 Tablet 3 3 Active Allopurinol 300 MG Oral Tablet (Zyloprim) TAKE 1 TABLET BY MOUTH EVERY DAY 90 Tablet 1 3 Active Levothyroxine Sodium 75 MCG Oral Tablet (Levoxyl) Take 1 Tablet by mouth in the morning. (at least 30 min prior to breakfast or other meds). 30 Tablet 11 3 Active Torsemide 40 MG Oral Tablet Take 40 mg by mouth in the morning. 90 Tablet 3 3 Active Diphenoxylate-Atro pine 2.5-0.025 MG Oral Tablet (Lomotil) Take 1 Tablet by mouth 4 times a day as needed for Diarrhea. 120 Tablet 1 4 Active Terazosin HCl 5 MG Oral Capsule (Hytrin) TAKE 1 CAPSULE BY MOUTH EVERYDAY AT BEDTIME 90 Capsule 3 4 Active B-12 1000 MCG Oral Capsule TAKE 1 TABLET ORALLY EVERY 48 HOURS. 30 Capsule 5 4 Active DULoxetine HCl 30 MG Oral Capsule Delayed Release Particles (Cymbalta) Take 1 Capsule by mouth in the morning. Do not cut, crush or chew. 30 Capsule 3 4 Active Magnesium Oxide -Mg Supplement 400 (240 Mg) MG Oral Tablet (Mag-Ox) Take 1 Tablet by mouth in the morning and 1 Tablet before bedtime. 180 Tablet 3 4 Active Potassium Chloride ER 20 MEQ Oral Tablet Extended Release Take 30 MEQ by mouth daily. 4 Active D3 Super Strength 50 MCG (1999 UT) Oral Capsule (Cholecalciferol)I ndications:Hypocal cemia TAKE 1 CAPSULE BY MOUTH EVERY DAY IN THE MORNING 90 Capsule 1 4 Active Atorvastatin Calcium 10 MG Oral Tablet (Lipitor)Indicatio ns:ASCVD (arteriosclerotic cardiovascular disease),Dyslipide cherrie, goal LDL below 70 TAKE 1/2 TABLET BY MOUTH DAILY 45 Tablet 3 4 Active Montelukast Sodium 10 MG Oral Tablet (Singulair)Indicat ions:Acute sinusitis, recurrence not specified, unspecified location Take 1 Tablet by mouth in the morning. 90 Tablet 1 4 Active Omeprazole 40 MG Oral Capsule Delayed Release (PriLOSEC)Indicati ons:Hypothyroidism , unspecified type TAKE 1 CAPSULE BY MOUTH EVERY DAY 1 HOUR BEFORE THE FIRST MEAL OF THE DAY 90 Capsule 1 4 Active Metoprolol Succinate ER 50 MG Oral Tablet Extended Release 24 Hour (toPROL XL)Indications:PAF (paroxysmal atrial fibrillation) ([facility]) Take 1 Tablet by mouth 2 times a day. 60 Tablet 5 4 Active Eplerenone 25 MG Oral Tablet (Inspra)Indication s:Chronic diastolic CHF (congestive heart failure), NYHA class 3 ([facility]) Take 0.5 Tablets by mouth in the morning. 45 Tablet 3 4 Active Ondansetron HCl 8 MG Oral Tablet (Zofran) Take 1 Tablet by mouth every 8 hours as needed for Nausea. 120 Tablet 4 01/09/20 24 Active Sucralfate 1 GM Oral Tablet (Carafate) Take 1 Tablet by mouth in the morning and 1 Tablet before bedtime. 120 Tablet 1 4 Active Sucralfate 1 GM Oral Tablet (Carafate) Take 1 Tablet by mouth in the morning and 1 Tablet before bedtime. half an hour before meals and at bedtime. 120 Tablet 1 4 12/10/19 24 Discontinued(Ref ill) Sucralfate 1 GM Oral Tablet (Carafate) Take 1 Tablet by mouth in the morning and 1 Tablet before bedtime. 120 Tablet 1 4 12/10/19 24 Discontinued Hospital, Clinic, or Other Facility Administered Medication [...] as of this encounter (statuses as of 12/10/2023) Active Problems Problem Noted Date Diagnosed Date [...] fibrillation) 05/27/2021 Coronary artery disease invo lving [place] coronary artery of [place] heart without angina pectoris 05/27/2021 Chronic heart failure with preserved ejection fr action 05/27/2021 Poison annabelle dermatitis 02/03/2021 Major depressive disorder, recurrent episode, mo derate 01/03/2021 Class 2 severe obesity due t o excess calories with serious comorbidity and body mass index (BMI) of 38.0 to 38.9 in adult 11/06/2020 Angio-edema 10/25/2020 History of 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 (PE) 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 0 10/22/2020 [...] as of this encounter (statuses as of 12/10/2023) Resolved Problems Problem Noted Date Diagnosed Date [...] 11/01/2010 09/09/2011 VENOUS THROMBOSIS PROPHYLAXIS 10/10/2010 10/25/2010 termite control technician current use of ant icoagulant therapy 10/10/2010 [...] Benign neoplasm of colon 08/2016 Overview: colonoscopy 2002 Kidney disease, chronic, sta ge III (GFR 30-59 ml/min) 03/03/2013 HTN, goal below 130/80 12/09 HTN, goal below 140/80 09/13 documented as of this encounter (statuses as of 12/10/2023) Immunizations Name Administration Dates Next Due COVID-19 [...] Split, I IV3, With Preserve, Inj 04/14/2014,03/24/2013,03/11/2012,04/08,05/11/2010,05/01/2009,05/11/20 07,04/17/2006,05/03/2003 TD, Preservative Free 06/23/2007 TDAP (age 10 [...] as of this encounter Miscellaneous Notes * Addendum Note - Telma Jacobs CRNP - 12/10/2023 4:21 PM EDTAddended by: TELMA JACOBS on: 12/10/2023 04:21 PM Modules accepted: Orders * Telephone Encounter - Shannon Vasques [facility] - 12/10/2023 4:18 PM EDT Updated prescription to include appropriate directions for carafate. Noted in todays OV to add Carafate twice daily. Verified with [facility] pharmacist. Thank you, Shannon Vasques, PharmD Clinical Pharmacist [facility] ([facility]) 12/10/23 4:18 PM [phone] * Telephone Encounter - Celestine Juarez CPhT - 12/10/2023 4:04 PM EDT Pharmacy is calling and requesting high priority because pt's prescription for Sucralfate was sent with unclear directions stating "Take 1 Tablet by mouth in the morning and 1 Tablet before bedtime. half an hour before meals and at bedtime". Pharmacy unsure whether pt is to take 2 or 4 times a day,please clarify the directions for this medication and send a new prescription to [id number] [address] [place] [address]. Thank you, Celestine Juarez Dental Scheduler [facility] ([facility]) 12/10/2023,4:04 PM documented in this encounter Plan of Treatment Upcoming Encounters Date Type Department Care Team (Late st Contact Info) Description 01/07/2024 9:30 AM EDT Cardiac Studies Cardiology, [facility] [address] [place] [address] [facility] [address] [place] [address] 01/19/2024 8:00 AM EDT Office Visit Urology Rubina Rader [address] [place] [address] Merly Leal PA-C [address] [place] [address] 02/19/2024 8:30 AM EDT Office Visit Cardiology, [facility] [address] [place] [address] Amadeo Gomez PA-C [address] [place] [address] Health Maintenance Due Date Last Done Comments Zoster Vaccines (1 of 2) 09/18/2013 07/24/2013, 03/09 COVID-19 Vaccine (2 - Pfizer risk series) 09/25/2020 09/04/2020 Albumin/Creatinine Ratio 01/11/2022 021, 01/28/2011, 11/20/2009, Additional history exists CKD PHOS USE SMARTSET 46433 05/02/202304/07, 12/20/2020, 10/29/2020, Additional history exists GFR 05/21/2024 11/19/2023, 10/05, 10/10/2023, Additional history exists CKD HGB USE SMARTSET 30071 11/18/202411/18, 10/10/2023, 07/24/2023, Additional history exists TSH [...] this encounter Medical Devices Implanted Type Area Oil Well Directional Surveyor Device Identifier Shelf Expiration Date Model / Serial / Lot Cement Antibiotic Bone - [id number] Implanted:Qty: 5 on 10/10/2010 at OR [facility] [place] Right: Knee [employer] : ORTHOPAEDICS 03/06/2012 6197-9-01 0 / / [id number] Surface Articular - [id number] Implanted:Qty: 1 on 10/10/2010 at OR [facility] [place] Right: Knee [employer] 10/04/2018 00-5994-0 32-14 / / [id number] Augment Blk Dist Fem F 10mm - [id number] Implanted:Qty: 2 on 10/10/2010 at OR [facility] [place] Right: Knee [employer] 09/03/2015 00-5490-0 36-20 / / [id number] Augment Blk Post Fem F 10mm - [id number] Implanted:Qty: 1 on 10/10/2010 at OR [facility] [place] Right: Knee [employer] 06/05/2015-5490-0 36-02 / / [id number] Patella Poly Nexgen - [id number] Implanted:Qty: 1 on 10/10/2010 at OR [facility] [place] Right: Knee [employer] 07/06/2018 00-5972-0 65-32 / / [id number] Cement Antibiotic Bone - [id number] Implanted:Qty: 1 on 10/10/2010 at OR [facility] [place] [employer] : ORTHOPAEDICS 6197-9-01 0 / / Plug 20/24mm Insert - [id number] Implanted:Qty: 1 on 10/10/2010 at OR [facility] [place] Right: Knee [employer] 00-8011-0 20- / / [id number] Stem Extension 5988-04-18 - [id number] Implanted:Qty: 1 on 10/10/2010 at OR [facility] [place] Right: Knee [employer] 09/03/2020-5988-0 10- / / [id number] Femur Porous Lcck - [id number] Implanted:Qty: 1 on 10/10/2010 at OR [facility] [place] Right: Knee [employer] 12/04/2019-5994-0 16-92 / / [id number] Augment Blk Trab Knee Tib 10mm - [id number] Implanted:Qty: 1 on 10/10/2010 at OR [facility] [place] Right: Knee [employer] 05/06/2015 00-5448-0 03- / [id number] Augment Blk Dist Fem F 10mm - [id number] Implanted:Qty: 1 on 10/10/2010 at OR [facility] [place] Right: Knee [employer] 09/03/2015-5490-0 36-20 / / [id number] Augment Blk Post Fem F 5mm - [id number] Implanted:Qty: 1 on 10/10/2010 at OR [facility] [place] Right: Knee [employer] 09/03/2015-5490-0 36- / / [id number] Plate Tibial Nexgen - [id number] Implanted:Qty: 1 on 10/10/2010 at OR [facility] [place] Right: Knee [employer] 09/03/2020 00-5980-0 37- / [id number] Stem Extension 5988-04-18 - [id number] Implanted:Qty: 1 on 10/10/2010 at OR [facility] [place] Right: Knee [employer] 06/05/2020-5988-0 04-18 [id number] Lead Pace Selectsecure 3830-69 - [id number] - [id number] Implanted:Qty: 1 on 06/25/2021 by Gilma John DO at OR [facility] Left: Heart [employer] : [facility] 05/16/2023 [id number] / [id number] / Description: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 - [id number] - [id number] Implanted:Qty: 1 on 06/25/2021 by Gilma John DO at OR [facility] Left: Heart [employer] : [facility] 04/12/2023 5076-52 / [id number] / Description:Right Atrial Jayleen d Pacemaker Sylvia Xt Dr Smith [facility] - [id number] - [id number] Implanted:Qty: 1 on 06/25/2021 by Gilma John DO at OR [facility] Left: Chest [employer] 12/01/2022 W1DR01 / [id number] / Envelope Antibacterial Tyrx - [id number] Implanted:Qty: 1 on 06/25/2021 by Gilma John DO at OR [facility] Left: Chest [employer] : [facility] [id number] 02/16/2022 [id number] / / [id number] documented as of this encounter Advance Directives * Full Code (Latest Code Status on File) Date Activated Date Inactivated Comments 10/10/2010 10:23 AM 10/12/2010 3:38 PM This order re flects the patients wishes and were consensually agreed upon. Care Teams Tube Machine Operator Helper Relationship Specialty Start Date End Date Telma Jacobs CRNP [address] [place] [address] PCP - General Nurse Practitioner 02/12/22 documented as of this encounter
--- OUTSIDE RECORDS SUMMARY | 2023-12-13 09:58 | External Medical Summary | Summary of Care ---
Author Name Unknown Organization [facility] Address [address] [facility] [place] [address] Phone [phone] Care Team Providers Care Hot Knife Foxing Cutter Name Role Phone Telma Jacobs Primary Care Provider Reason for Visit * Reason Onset Date Comments Medication Question 12/10/2023 Encounter Details Date Type Department Care Team (Late st Contact Info) Description 12/10/2023 Telephone Family Practice [facility] [address] [place] [address] Telma Jacobs CRNP [address] [place] [address] Medication Question Allergies No known active allergiesdocumented [...] 24 Hour (toPROL XL)Indications:PAF (paroxysmal atrial fibrillation) ([facility]) Take 1 Tablet by mouth 2 times a day. 60 Tablet 5 4 Active Eplerenone 25 MG Oral Tablet (Inspra)Indication s:Chronic diastolic CHF (congestive heart failure), NYHA class 3 ([facility]) Take 0.5 Tablets by mouth in the [...] fibrillation) 05/27/2021 Coronary artery disease invo lving [place] coronary artery of [place] heart without angina pectoris 05/27/2021 Chronic heart failure with preserved ejection fr action 05/27/2021 Poison annabelle dermatitis 02/03/2021 Major depressive disorder, recurrent episode, mo derate 01/03/2021 Class 2 severe obesity due t o excess calories with serious comorbidity and body mass index (BMI) of 38.0 to 38.9 in adult 11/06/2020 Angio-edema 10/25/2020 History of 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 (PE) 10/22/2020 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 Noted in todays OV to add Carafate twice daily. Verified with [facility] pharmacist. Thank you, Shannon Vasques, PharmD Clinical Pharmacist [facility] ([facility]) 12/10/23 4:18 PM [phone] * Telephone Encounter - Celestine Juarez CPhT [...] and send a new prescription to [id number] [address] [place] [address]. Thank you, Celestine Juarez Personal Support Worker [facility] ([facility]) 12/10/2023,4:04 PM documented in this encounter Plan of Treatment Upcoming Encounters Date Type Department Care Team (Late st Contact Info) Description 01/07/2024 9:30 AM EDT Cardiac Studies Cardiology, [facility] [address] [place] [address] [facility] [address] [place] [address] 01/19/2024 8:00 AM EDT Office Visit Urology Rubina Rader [address] [place] [address] Merly Leal PA-C [address] [place] [address] 02/19/2024 8:30 AM EDT Office Visit Cardiology, [facility] [address] [place] [address] Amadeo Gomez PA-C [address] [place] [address] Health Maintenance Due Date Last Done Comments Zoster Vaccines (1 of 2) 09/18/2013 07/24/2013, 03/09 COVID-19 Vaccine (2 - Pfizer risk series) 09/25/2020 09/04/2020 Albumin/Creatinine Ratio 01/11/2022 021, 01/28/2011, 11/20/2009, Additional history exists CKD PHOS USE SMARTSET 84729 05/02/202304/07, 12/20/2020, 10/29/2020, Additional history exists GFR 05/21/2024 11/19/2023, 10/05, 10/10/2023, Additional history exists CKD HGB USE SMARTSET 35619 11/18/202411/18, 10/10/2023, 07/24/2023, Additional history exists TSH [...] this encounter Medical Devices Implanted Type Area Manager Automotive Device Identifier Shelf Expiration Date Model / Serial / Lot Cement Antibiotic Bone - [id number] Implanted:Qty: 5 on 10/10/2010 at OR [facility] [place] Right: Knee [employer] : ORTHOPAEDICS 03/06/2012 6197-9-01 0 / / [id number] Surface Articular - [id number] Implanted:Qty: 1 on 10/10/2010 at OR [facility] [place] Right: Knee [employer] 10/04/2018 00-5994-0 32-14 / / [id number] Augment Blk Dist Fem F 10mm - [id number] Implanted:Qty: 2 on 10/10/2010 at OR [facility] Right: Knee [employer] 09/03/2015 00-5490-0 36-20 / / [id number] Augment Blk Post Fem F 10mm - [id number] Implanted:Qty: 1 on 10/10/2010 at OR [facility] [place] Right: Knee [employer] 06/05/2015-5490-0 36-02 / / [id number] Patella Poly Nexgen - [id number] Implanted:Qty: 1 on 10/10/2010 at OR [facility] Right: Knee [employer] 07/06/2018 00-5972-0 65-32 / / [id number] Cement Antibiotic Bone - [id number] Implanted:Qty: 1 on 10/10/2010 at OR [facility] [employer] : ORTHOPAEDICS 6197-9-01 0 / / Plug 20/24mm Insert - [id number] Implanted:Qty: 1 on 10/10/2010 at OR [facility] Right: Knee [employer] 00-8011-0 20- / / [id number] Stem Extension 5988-04-18 - [id number] Implanted:Qty: 1 on 10/10/2010 at OR [facility] Right: Knee [employer] 09/03/2020-5988-0 10- / / [id number] Femur Porous Lcck - [id number] Implanted:Qty: 1 on 10/10/2010 at OR [facility] Right: Knee [employer] 12/04/2019-5994-0 16-92 / / [id number] Augment Blk Trab Knee Tib 10mm - [id number] Implanted:Qty: 1 on 10/10/2010 at OR [facility] Right: Knee [employer] 05/06/2015 00-5448-0 03- / [id number] Augment Blk Dist Fem F 10mm - [id number] Implanted:Qty: 1 on 10/10/2010 at OR [facility] Right: Knee [employer] 09/03/2015-5490-0 36-20 / / [id number] Augment Blk Post Fem F 5mm - [id number] Implanted:Qty: 1 on 10/10/2010 at OR [facility] Right: Knee [employer] 09/03/2015-5490-0 36- / / [id number] Plate Tibial Nexgen - [id number] Implanted:Qty: 1 on 10/10/2010 at OR [facility] Right: Knee [employer] 09/03/2020 00-5980-0 37- / [id number] Stem Extension 5988-04-18 - [id number] Implanted:Qty: 1 on 10/10/2010 at OR [facility] Right: Knee [employer] 06/05/2020-5988-0 04-18 [id number] Lead Pace Selectsecure 3830-69 - [id number] - [id number] Implanted:Qty: 1 on 06/25/2021 by Gilma John DO at OR [facility] Left: Heart [employer] : [facility] 05/16/2023 [id number] / [id number] / Description: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 - [id number] - [id number] Implanted:Qty: 1 on 06/25/2021 by Gilma John DO at OR [facility] Left: Heart [employer] : [facility] 04/12/2023 5076-52 / [id number] / Description:Right Atrial Jayleen d Pacemaker Sylvia Xt Dr Smith [facility] - [id number] - [id number] Implanted:Qty: 1 on 06/25/2021 by Gilma John DO at OR [facility] Left: Chest [employer] 12/01/2022 W1DR01 / [id number] / Envelope Antibacterial Tyrx - [id number] Implanted:Qty: 1 on 06/25/2021 by Gilma John DO at OR [facility] Left: Chest [employer] : [facility] [id number] 02/16/2022 [id number] / / [id number] documented as of this encounter Advance Directives * Full Code (Latest Code Status on File) Date Activated Date Inactivated Comments 10/10/2010 10:23 AM 10/12/2010 3:38 PM This order re flects the patients wishes and were consensually agreed upon. Care Teams Hot Knife Foxing Cutter Relationship Specialty Start Date End Date Telma Jacobs CRNP [address] [address] PCP - General Nurse Practitioner 02/12/22 documented as of this encounter
--- OUTSIDE RECORDS SUMMARY | 2023-12-13 09:58 | External Medical Summary | Summary of Care ---
Author Name Unknown Organization [facility] Address [address] [facility] [place] [address] Phone [phone] Care Team Providers Care Bobtailer Name Role Phone Telma Jacobs Primary Care Provider Reason for Visit * Reason Onset Date Comments Medication Question 12/10/2023 Encounter Details Date Type Department Care Team (Late st Contact Info) Description 12/10/2023 Telephone Family Practice [facility] [address] [place] [address] Telma Jacobs CRNP [address] [place] [address] Medication Question Allergies No known active allergiesdocumented [...] Hour (toPROL XL)Indications:PAF (paroxysmal atrial fibrillation) ([facility]) Take 1 Tablet by mouth 2 times a day. 60 Tablet 5 4 Active Eplerenone 25 MG Oral Tablet (Inspra)Indication s:Chronic diastolic CHF (congestive heart failure), NYHA class 3 ([facility]) Take 0.5 Tablets by mouth in the [...] fibrillation) 05/27/2021 Coronary artery disease invo lving [place] coronary artery of [place] heart without angina pectoris 05/27/2021 Chronic heart failure with preserved ejection fr action 05/27/2021 Poison annabelle dermatitis 02/03/2021 Major depressive disorder, recurrent episode, mo derate 01/03/2021 Class 2 severe obesity due t o excess calories with serious comorbidity and body mass index (BMI) of 38.0 to 38.9 in adult 11/06/2020 Angio-edema 10/25/2020 History of 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 (PE) 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 Noted in todays OV to add Carafate twice daily. Verified with [facility] pharmacist. Thank you, Shannon Vasques, PharmD Clinical Pharmacist [facility] 12/10/23 4:18 PM [phone] * Telephone Encounter - Celestine Juarez CPhT [...] and send a new prescription to [id number] [address] [place] [address]. Thank you, Celestine Juarez Jack Prizer [facility] 12/10/2023,4:04 PM documented in this encounter Plan of Treatment Upcoming Encounters Date Type Department Care Team (Late st Contact Info) Description 01/07/2024 9:30 AM EDT Cardiac Studies Cardiology, [facility] [address] [place] [address] [facility] [address] [place] [address] 01/19/2024 8:00 AM EDT Office Visit Urology Rubina Rader [address] [place] [address] Merly Leal PA-C [address] [place] [address] 02/19/2024 8:30 AM EDT Office Visit Cardiology, [facility] [address] [place] [address] Amadeo Gomez PA-C [address] [place] [address] Health Maintenance Due Date Last Done Comments Zoster Vaccines (1 of 2) 09/18/2013 07/24/2013, 03/09 COVID-19 Vaccine (2 - Pfizer risk series) 09/25/2020 09/04/2020 Albumin/Creatinine Ratio 01/11/2022 021, 01/28/2011, 11/20/2009, Additional history exists CKD PHOS USE SMARTSET 39081 05/02/202304/07, 12/20/2020, 10/29/2020, Additional history exists GFR 05/21/2024 11/19/2023, 10/05, 10/10/2023, Additional history exists CKD HGB USE SMARTSET 89876 11/18/202411/18, 10/10/2023, 07/24/2023, Additional history exists TSH [...] this encounter Medical Devices Implanted Type Area Conveyor Technician Device Identifier Shelf Expiration Date Model / Serial / Lot Cement Antibiotic Bone - [id number] Implanted:Qty: 5 on 10/10/2010 at [place] [facility] Right: Knee [employer] 03/06/2012 6197-9-01 0 / / [id number] Surface Articular - [id number] Implanted:Qty: 1 on 10/10/2010 at [place] [facility] Right: Knee [employer] 10/04/2018 00-5994-0 32-14 / / [id number] Augment Blk Dist Fem F 10mm - [id number] Implanted:Qty: 2 on 10/10/2010 at [place] [facility] Right: Knee [employer] 09/03/2015 00-5490-0 36-20 / / [id number] Augment Blk Post Fem F 10mm - [id number] Implanted:Qty: 1 on 10/10/2010 at [place] [facility] Right: Knee [employer] 06/05/2015-5490-0 36-02 / / [id number] Patella Poly Nexgen - [id number] Implanted:Qty: 1 on 10/10/2010 at [place] [facility] Right: Knee [employer] 07/06/2018 00-5972-0 65-32 / / [id number] Cement Antibiotic Bone - [id number] Implanted:Qty: 1 on 10/10/2010 at [place] [facility] [employer] 6197-9-01 0 / / Plug 20/24mm Insert - [id number] Implanted:Qty: 1 on 10/10/2010 at [place] [facility] Right: Knee [employer] 00-8011-0 20- / / [id number] Stem Extension 5988-04-18 - [id number] Implanted:Qty: 1 on 10/10/2010 at [place] [facility] Right: Knee [employer] 09/03/2020-5988-0 10- / / [id number] Femur Porous Lcck - [id number] Implanted:Qty: 1 on 10/10/2010 at [place] [facility] Right: Knee [employer] 12/04/2019-5994-0 16-92 / / [id number] Augment Blk Trab Knee Tib 10mm - [id number] Implanted:Qty: 1 on 10/10/2010 at [place] [facility] Right: Knee [employer] 05/06/2015 00-5448-0 03- / [id number] Augment Blk Dist Fem F 10mm - [id number] Implanted:Qty: 1 on 10/10/2010 at [place] [facility] Right: Knee [employer] 09/03/2015-5490-0 36-20 / / [id number] Augment Blk Post Fem F 5mm - [id number] Implanted:Qty: 1 on 10/10/2010 at [place] [facility] Right: Knee [employer] 09/03/2015-5490-0 36- / / [id number] Plate Tibial Nexgen - [id number] Implanted:Qty: 1 on 10/10/2010 at [place] [facility] Right: Knee [employer] 09/03/2020 00-5980-0 37- / [id number] Stem Extension 5988-04-18 - [id number] Implanted:Qty: 1 on 10/10/2010 at [place] [facility] Right: Knee [employer] 06/05/2020-5988-0 04-18 [id number] Lead Pace [employer] 3830-69 - [id number] - [id number] Implanted:Qty: 1 on 06/25/2021 by Gilma John DO at OR [facility] Left: Heart [employer] : [facility] 05/16/2023 [id number] / [id number] / Description: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 - [id number] - [id number] Implanted:Qty: 1 on 06/25/2021 by Gilma John DO at OR [facility] Left: Heart [employer] : [facility] 04/12/2023 5076-52 / [id number] / Description:Right Atrial Jayleen d Pacemaker Sylvia Xt [facility] - [id number] - [id number] Implanted:Qty: 1 on 06/25/2021 by Gilma John DO at OR [facility] Left: Chest [employer] 12/01/2022 W1DR01 / [id number] / Envelope Antibacterial Tyrx - [id number] Implanted:Qty: 1 on 06/25/2021 by Gilma John DO at OR [facility] Left: Chest [employer] : [facility] [id number] 02/16/2022 [id number] / / [id number] documented as of this encounter Advance Directives * Full Code (Latest Code Status on File) Date Activated Date Inactivated Comments 10/10/2010 10:23 AM 10/12/2010 3:38 PM This order re flects the patients wishes and were consensually agreed upon. Care Teams Bobtailer Relationship Specialty Start Date End Date Telma Jacobs CRNP [address] [place] [address] PCP - General Nurse Practitioner 02/12/22 documented as of this encounter
--- OUTSIDE RECORDS SUMMARY | 2023-12-13 09:58 | External Medical Summary | Summary of Care ---
Author Name Unknown Organization [facility] Address [address] [address] Phone [phone] Care Team Providers Care Remanufacturing Technician Name Role Phone Telma Jacobs Primary Care Provider Reason for Referral * Evaluate & Treat - Unlimited Visits (Within 30 days (routine)) - Pending Review Specialty Diagnoses / Procedures Referred By Gunjan brooks Referred To Contact Urology Diagnoses Bladder stone Telma Jacobs CRNP [address] [place] [address] Referral ID Status Reason Start Date Expiration Date Visits Requested Visits Authorized [id number] Pending Review Specialty Services Required 12/10/[phone] Question Answer Referral Priority Within 30 days (routine) Where should this appointment be scheduled? [facility] What is the patient being referred for? Urinary Concerns Comments Bladder stone Reason for Visit * Reason Comments Follow Up Patient presents in office today for an 8 week follow-up visit. Encounter Details Date Type Department Care Team (Late st Contact Info) Description 12/10/2023 10:00 AM EDT Office Visit Family Practice [facility] [address] [place] [address] Telma Jacobs CRNP [address] [place] [address] Abdominal pain, generalized*; Nausea without vomiting; Bladder stone; Chronic heart failure with preserved ejection fraction (HCC) Allergies No known active allergiesdocumented as of this encounter (statuses as of 12/10/2023) Medications Medication Sig Dispensed Refills Start Date End Date Status acyclovir (ZOVIRAX) 400 MG Tablet Take 1 Tablet by mouth in the morning and 1 Tablet before bedtime. Active Meclizine HCl 12.5 MG Oral Tablet (ANTIVERT)Indication s:Dizziness Take 1 Tab by mouth 3 times [...] Active hydrALAZINE HCl 25 MG Oral Tablet (Apresoline)Indicati ons:HTN, goal below 140/90 TAKE 1 TABLET BY [...] the morning. 90 Tablet 3 05/08/2023 Active Diphenoxylate-Atropi ne 2.5-0.025 MG Oral Tablet (Lomotil) Take 1 [...] 10/09/2023 Active D3 Super Strength 50 MCG (2000 UT) Oral Capsule (Cholecalciferol)Ind ications:Hypocalcemi a TAKE 1 CAPSULE BY MOUTH EVERY DAY IN THE MORNING 90 Capsule 1 11/06/2023 Active Atorvastatin Calcium 10 MG Oral Tablet (Lipitor)Indications :ASCVD (arteriosclerotic cardiovascular disease),Dyslipidemi a, goal LDL below 70 TAKE 1/2 TABLET BY MOUTH DAILY 45 Tablet 3 11/06/2023 Active Montelukast Sodium 10 MG Oral Tablet (Singulair)Indicatio ns:Acute sinusitis, recurrence not specified, unspecified location Take 1 Tablet by mouth in the morning. 90 Tablet 1 11/09/2023 Active Omeprazole 40 MG Oral Capsule Delayed Release (PriLOSEC)Indication s:Hypothyroidism, unspecified type TAKE 1 CAPSULE BY MOUTH EVERY DAY 1 HOUR BEFORE THE FIRST MEAL OF THE DAY 90 Capsule 1 11/13/2023 Active Metoprolol Succinate ER 50 MG Oral Tablet Extended Release 24 Hour (toPROL XL)Indications:PAF (paroxysmal atrial fibrillation) ([facility]) Take 1 Tablet by mouth 2 times a day. 60 Tablet 5 11/19/2023 Active Eplerenone 25 MG Oral Tablet (Inspra)Indications: Chronic diastolic CHF (congestive heart failure), NYHA class 3 ([facility]) Take 0.5 Tablets by mouth in the morning. 45 Tablet 3 12/05/2023 Active Sucralfate 1 GM Oral Tablet (Carafate) Take 1 Tablet by mouth in the morning and 1 Tablet before bedtime. half an hour before meals and at bedtime. 120 Tablet 1 12/10/2023 Active Ondansetron HCl 8 MG Oral Tablet (Zofran) Take 1 Tablet by mouth every 8 hours as needed for Nausea. 120 Tablet 12/10/2023 Active ondansetron (ZOFRAN) 8 MG Tablet Take by mouth every 8 hours as needed for Nausea. Discontinue d(Refill) Hospital, Clinic, or Other Facility Administered Medication [...] fibrillation) 05/27/2021 Coronary artery disease invo lving [place] coronary artery of [place] heart without angina pectoris 05/27/2021 Chronic heart failure with preserved ejection fr action 05/27/2021 Poison annabelle dermatitis 02/03/2021 Major depressive disorder, recurrent episode, mo derate 01/03/2021 Class 2 severe obesity due t o excess calories with serious comorbidity and body mass index (BMI) of 38.0 to 38.9 in adult 11/06/2020 Angio-edema 10/25/2020 History of 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 (PE) 10/22/2020 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 0 10/22/2020 [...] VENOUS THROMBOSIS PROPHYLAXIS 10/10/2010 10/25/2010 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 current use of ant icoagulant therapy 10/10/2010 12/25/2010 Overview: ICD-10 update of inactive term Anticoagulation management encounter 10/10/2010 09/09/2011 Joint effusion, knee 08/15/2010 017 Obstructive sleep apnea 12/19/2009 0608/2016 MORBID OBESITY 12/19/2009 12/25/2010 MORBID OBESITY, BMI= [...] on file documented as of this encounter Last Filed Vital Signs Vital Sign Reading Time Taken Comments Blood Pressure 122/74 12/10/2023 10:05 AM EDT Pulse 75 12/10/2023 10:05 AM EDT Temperature - - Respiratory Rate 16 12/10/2023 10:0 5 AM EDT Oxygen Saturation 96% 12/10/2023 10: 05 AM EDT Inhaled Oxygen Concentration - - Weight 124.1 kg (273 lb 9.6 oz) 024 10:05 AM EDT Height 170.2 cm (5' 7") 12/10/2023 10:0 5 AM EDT Body Mass Index 42.85 12/10/2023 10:05 AM EDT documented in this encounter Progress Notes * Telma JacobsASHER - 12/10/2023 10:19 AM EDT Follow up Family Medicine Visit CC: Chief Complaint Patient presents with Follow Up Patient presents in office today for an 8 week follow-up visit. History of Present Illness: Corwin Dolan is a 83 year old male presenting for ER follow up. He is accompanied by his daughter. He was seen in the ED on 12/08/2023 for abdominal pain. Labs reassuring.CT showing bladder stone, small hiatal hernia. Small renal cyst. Since ER visit. Seems worse in the am. Last time is occurred. Feels like a dull ache. Caused him tocry in pain. He has been feeling nauseated randomly. Denies heartburn. 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 education: 10 service: no hobbies/interests: Bowling, hunting transfusions: At least 2 pints 2009 exercise: no diet: no scientology/adventism: caodaism marital status: 1977 children: 1/2 gc: 9 ggc: + pets: 2 dogs- poddles exposure to violence/threats/abuse: no things to improve: Lose weight Retired Social Determinants of Health Financial Resource Strain: Not on file Food Insecurity: No Food Insecurity (06/10/2019) Hunger Vital Sign Worried About Running Out of Food in the Last Year: Never true Ran Out of Food in the Last Year: Never true Transportation Needs: Not on file Physical Activity: Not on file Stress: Not on file Social Connections: Not on file Intimate Partner Violence: Not on file Housing Stability: Not on file PMH: Past Medical History: Diagnosis Date Anemia ASCVD (arteriosclerotic cardiovascular disease) 10/22/2012 Benign neoplasm of colon colonoscopy 2002 Body mass index (BMI) of 40.0 to 44.9 in adult ([facility]) 04/17/2020 Per Obesity protocol BPH without obstruction/lower urinary tract symptoms 11/06/2009 Chronic diastolic congestive heart failure ([facility]) 03/04/2018 Diastolic heart failure ([facility]) Diplopia 4.15.02 Dyslipidemia, goal LDL below 70 11/20/2015 Gastroesophageal reflux disease 03/04/2018 Generalized osteoarthritis 11/06/2009 Gout History of Clostridium difficile infection 10/22/2020 History of 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 (PE) 10/22/2020 HTN, goal below 140/80 Hyperparathyroidism ([facility]) 07/17/2016 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 ([facility]) 06/10/2019 Hypoalbuminemia 04/12/2020 Hypothyroidism (acquired) Kidney disease, chronic, stage III (GFR 30-59 ml/min) ([facility]) [facility] current use of anticoagulant therapy 10/22/2020 Major depressive disorder, recurrent episode, moderate ([facility]) Monoclonal paraproteinemia 03/17/2019 Multiple myeloma not having achieved remission ([facility]) 07/22/2019 Organic sleep disorder NAHEED (obstructive sleep apnea) 12/09/2013 on bipap Restless legs syndrome 04/10/2010 Selective deficiency of immunoglobulin a (iga) ([facility]) 07/22/2019 Selective deficiency of immunoglobulin m (igm) ([facility]) 07/22/2019 Past Surgical History: Procedure Laterality Date ARTHROCENT ASP &/OR INJ MAJOR JX/BURSA W/O US 06/11/2018 ARTHROCENTESIS OR INJECTION MAJOR JOINT performed by Chilango Mckeon, at OR [facility] ARTHROPLASTY KNEE TOTAL 09/14/2009 Knee replacement - right- Dr duran (4 times since june) ARTHROPLASTY KNEE TOTAL 12/15/2008 Knee replacement - left- Dr duran COLONOSCOPY, DIAGNOSTIC (RECTUM) 04/08/2012 COLONOSCOPY FLEXIBLE PROXIMAL DIAGNOSTIC performed by Kvng Jeffers MD at ENDOSCOPY [facility] COLONOSCOPY, DIAGNOSTIC (RECTUM) 07/23/2017 adenomatous polyp/COLONOSCOPY FLEXIBLE PROXIMAL DIAGNOSTIC performed by Kvng Jeffers MD at ENDOSCOPY [facility] COLORECTAL CANCER SCREEN; COLON 05/19/2002 free of residual or metachronous neoplasia. repeat in 3 years COLORECTAL CANCER SCREEN; NOT AT RISK 03/2007 repeat 5 yrs, normal DEXA SCAN/BONE MINERAL AXIAL 11/2009 repeat only if symptomatic EGD, FLEXIBLE, DIAGNOSTIC 02/13/2015 mild-mod inflammation, erosive gastropathy, repeat 6 mo/ESOPHAGOGASTRODUODENOSCOPY (EGD), FLEXIBLE,TRANSORAL, DIAGNOSTIC performed by Coy Hugo MD at ENDOSCOPY [facility] EGD, FLEXIBLE, DIAGNOSTIC 08/16/2015 mild-mod inflammation, Schatzki ring/ESOPHAGOGASTRODUODENOSCOPY (EGD), FLEXIBLE, TRANSORAL, DIAGNOSTIC performed by Coy Hugo MD at ENDOSCOPY [facility] EXPLORATION OF MAXILLARY SINUS 03/02/1999 right endoscopic bx, and right endoscopic maxillary sinus bx by dr. suero INFORMATION 1979 right facial numbness post nerve cut for tic dolloreux INFORMATION 05/2019 appendix INSERT/REPLACE PACEMAKER,ATRIAL/VENTRICULAR Left 06/25/2021 NEW DDD PACEMAKER IMPLANT performed by Gilma John DO at OR [facility] LUMBAR / SACRAL EPIDURAL, SINGLE LEVEL 04/02/2018 INJECTION TRANSFORAMINAL EPIDURAL LUMBAR OR SACRAL performed by Chilango Mckeon DO at OR [facility] REMOVE CATARACT, INSERT LENS PROSTH 05/2015, 07/2015 Bilateral REMOVE GALLBLADDER 1993 Cholecystectomy REVISE KNEE JOINT REPLACEMENT 10/10/2010 TOTAL KNEE REVISION FEMUR AND TIBIA performed by LASHAE BRONSON at [place] [facility] TOTAL HIP REPLACEMENT & PROSTHESIS Right 11/11/2013 Hip Replacement TOTAL HIP REPLACEMENT & PROSTHESIS Left 10/2018 Dr Tamayo Current Outpatient Medications Medication Sig Dispense Refill Eplerenone 25 MG Oral Tablet (Inspra) Take 0.5 Tablets by mouth in the morning. 45 Tablet 3 Metoprolol Succinate ER 50 MG Oral Tablet Extended Release 24 Hour (toPROL XL) Take 1 Tablet by mouth 2 times a day. 60 Tablet 5 Omeprazole 40 MG Oral Capsule Delayed Release (PriLOSEC) TAKE 1 CAPSULE BY MOUTH EVERY DAY 1 HOUR BEFORE THE FIRST MEAL OF THE DAY 90 Capsule 1 Montelukast Sodium 10 MG Oral Tablet (Singulair) Take 1 Tablet by mouth in the morning. 90 Tablet 1 Atorvastatin Calcium 10 MG Oral Tablet (Lipitor) TAKE 1/2 TABLET BY MOUTH DAILY 45 Tablet 3 D3 Super Strength 50 MCG (2000 UT) Oral Capsule (Cholecalciferol) TAKE 1 CAPSULE BY MOUTH EVERY DAYIN THE MORNING 90 Capsule 1 Potassium Chloride ER 20 MEQ Oral Tablet Extended Release Take 30 MEQ by mouth daily. DULoxetine HCl 30 MG Oral Capsule Delayed Release Particles (Cymbalta) Take 1 Capsule by mouth in the morning. Do not cut, crush or chew. 30 Capsule 3 Magnesium Oxide -Mg Supplement 400 (240 Mg) MG Oral Tablet (Mag-Ox) Take 1 Tablet by mouth in the morning and 1 Tablet before bedtime. 180 Tablet 3 B-12 1000 MCG Oral Capsule TAKE 1 TABLET ORALLY EVERY 48 HOURS. 30 Capsule 5 Terazosin HCl 5 MG Oral Capsule (Hytrin) TAKE 1 CAPSULE BY MOUTH EVERYDAY AT BEDTIME 90 Capsule 3 Diphenoxylate-Atropine 2.5-0.025 MG Oral Tablet (Lomotil) Take 1 Tablet by mouth 4 times a day as needed for Diarrhea. 120 Tablet 1 Torsemide 40 MG Oral Tablet Take 40 mg by mouth in the morning. 90 Tablet 3 Levothyroxine Sodium 75 MCG Oral Tablet (Levoxyl) Take 1 Tablet by mouth in the morning. (at least 30 min prior to breakfast or other meds). 30 Tablet 11 Albuterol Sulfate HFA 108 (90 Base) MCG/ACT Inhalation Aerosol Solution INHALE 2 PUFFS BY MOUTH EVERY 4 HOURS NEEDED FOR COUGH FOR SHORTNESS OF BREATH OR WHEEZE 18 g 1 Allopurinol 300 MG Oral Tablet (Zyloprim) TAKE 1 TABLET BY MOUTH EVERY DAY 90 Tablet 1 hydrALAZINE HCl 25 MG Oral Tablet (Apresoline) TAKE 1 TABLET BY MOUTH IN THE MORNING AND 1 TABLET AT AT NOON AND 1 TABLET AT BEDTIME 270 Tablet 3 Calcium Carbonate 1500 (600 Ca) MG Oral Tablet Take 2 Tablets by mouth in the morning and 2 Tabletsbefore bedtime. home oxygen/equipment IN GAS CPAP Apixaban 2.5 MG Oral Tablet (Eliquis) Take 1 Tablet by mouth 2 times a day. 180 Tablet 3 Hydrocortisone 2.5 % External Cream Apply topically to affected area 2 times a day. To affected area. 30 g 0 hydrOXYzine Pamoate 25 MG Oral Capsule (Vistaril) Take 1 Cap by mouth 3 times a day as needed for Itching. 30 Cap 0 Meclizine HCl 12.5 MG Oral Tablet (ANTIVERT) Take 1 Tab by mouth 3 times a day as needed for Dizziness. 30 Tab 0 acyclovir (ZOVIRAX) 400 MG Tablet Take 1 Tablet by mouth in the morning and 1 Tablet before bedtime. ondansetron (ZOFRAN) 8 MG Tablet Take by mouth every 8 hours as needed for Nausea. Abrysvo 120 MCG/0.5ML Intramuscular Solution Reconstituted (RSV Pre-Fusion F A&B Vac Rcmb) Inject into a large muscle. (Patient not taking: Reported on 11/19/2023) 1 Each 0 Current Facility-Administered Medications Medication Dose Route Frequency Provider Last Rate Last Admin Albuterol Sulfate (Proventil) (2.5 MG/3ML) 0.083% inhalation solution 2.5 mg 2.5 mg Nebulizer Once PRN Telma Jacobs CRNP albuterol sulfate (PROVENTIL) (2.5 MG/3ML) 0.083% inhalation solution 2.5 mg 2.5 mg Nebulizer Q4H PRN Musa Stout MD 2.5 mg at 11/14/17 1006 Review of patient's allergies indicates: No Known Allergies Most Recent Immunizations Administered Date(s) Administered COVID-19 mRNA, LNP-s, No Preserve, 2-Dose Series (Monesbat) 09/04/2020 H1N1 2009 Influenza, IM 08/11/2009 Pneumococcal Conjugate Vacc, 13 Valent (Prevnar) 11/20/2015 Pneumococcal Polysaccharide PPV23 (Pneumovax) 11/04/2012 RSV Vac., Bivalent, Perfusion F, Pf,0.5 Ml (Abrysvo) 08/13/2023 Seasonal Influenza Virus Vaccine, Unspecified Formulation 04/27/2021 Seasonal Influenza, PF, 6 M & above, IM , (FluLaval or Fluzone) 03/27/2020 Seasonal Influenza, Quadrivalent Hd (Fluzone Hd) 03/15/2022 Seasonal Influenza, Quadrivalent Hd, 65+ Yrs 04/01/2023 Seasonal Influenza, Quadrivalent, No Preserve, IM 04/03/2016 Seasonal Influenza, Split, IIV3, With Preserve, Inj 04/14/2014 TD, Preservative Free 06/23/2007 TDAP (age 10 and older)(Boostrix) 10/08/2023 Varicella Zoster Vaccine (Adult) 07/24/2013 Vitamin B12 Injection 10/11/2010 Review of Systems: Review of Systems Constitutional: Negative for chills, diaphoresis, fatigue and fever. Respiratory: Negative for shortness of breath. Cardiovascular: Negative for chest pain, palpitations and leg swelling. Gastrointestinal: Positive for abdominal pain and nausea. Negative for blood in stool, constipation, diarrhea and vomiting. Neurological: Negative for dizziness and syncope. Physical Exam: BP 122/74 | Pulse 75 | Resp 16 | Ht 1.702 m (5' 7") | Wt 124.1 kg (273 lb 9.6 oz) | SpO2 96% | BMI 42.85 kg/m | BSA 2.42 m Physical Exam HENT: Head: Normocephalic. Cardiovascular: Rate and Rhythm: Normal rate and regular rhythm. Pulmonary: Effort: Pulmonary effort is normal. Breath sounds: Normal breath sounds. Abdominal: General: Bowel sounds are normal. Palpations: Abdomen is soft. There is no mass. Tenderness: There is generalized abdominal tenderness and tenderness in the suprapubic area. Musculoskeletal: Cervical back: Normal range of motion. Neurological: General: No focal deficit present. Mental Status: He is alert and oriented to person, place, and time. Psychiatric: Mood and Affect: Mood normal. Behavior: Behavior normal. Thought Content: Thought content normal. Judgment: Judgment normal. Assessment and Plan: 1. Abdominal pain, generalized Unclear etiology for pain Ct scan and labs reassuring in ed ? Related to recent IVIGG infusion in which he states he is not premedicated for. 2. Nausea without vomiting With abdominal pain Continue omeprazole Add carafate twice daily Consider EGD if not improved ? Related to IFF infusion he recently received 3. Bladder stone Note on CT scan Unclear if contributing to pain - ADULT/PEDS UROLOGY REFERRAL OP 4. Chronic heart failure with preserved ejection fraction (HCC) Stable Managed by cardiology Rate is controlled Weight is down I have advised the patient to call our office incase of any worsening or new symptoms. I spent a total of 40-54 minutes (exact time 40 mins) on the date of service in preparation, delivery, and documentation of the care provided to Corwin Dolan excluding any time spent in the performance of separately billed services. Isael, SIDNEY, ASHER [facility] documented in this encounter Nursing Notes * Dominique Gaitan MED ASSIST - 12/10/2023 10:04 AM EDT The patient has been properly identified by confirmation of name and date of . Chief Complaint Patient presents with Follow Up Patient presents in office today for an 8 week follow-up visit. documented in this encounter Plan of Treatment Upcoming Encounters Date Type Department Care Team (Late st Contact Info) Description 01/07/2024 9:30 AM EDT Cardiac Studies Cardiology, [facility] [address] [place] [address] [facility] [address] [place] [address] 02/19/2024 8:30 AM EDT Office Visit Cardiology, [facility] [address] [place] [address] Amadeo Gomez PA-C [address] [place] [address] Scheduled Referrals Name Type Priority Associated Diagnoses Orde r Schedule ADULT/PEDS UROLOGY REFERRAL OP Referral Within 30 days (routine) Bladder stone Ordered: 12/10/2023 Health Maintenance Due Date Last Done Comments Zoster Vaccines (1 of 2) 09/18/2013 07/24/2013, 03/09 COVID-19 Vaccine (2 - Pfizer risk series) 09/25/2020 09/04/2020 Albumin/Creatinine Ratio 01/11/2022 021, 01/28/2011, 11/20/2009, Additional history exists CKD PHOS USE SMARTSET 35464 05/02/202304/07, 12/20/2020, 10/29/2020, Additional history exists GFR 05/21/2024 11/19/2023, 10/05, 10/10/2023, Additional history exists CKD HGB USE SMARTSET 68417 11/18/202411/18, 10/10/2023, 07/24/2023, Additional history exists TSH [...] this encounter Medical Devices Implanted Type Area Electrical Power Engineer Device Identifier Shelf Expiration Date Model / Serial / Lot Cement Antibiotic Bone - [id number] Implanted:Qty: 5 on 10/10/2010 at [place] [facility] Right: Knee [employer] : OR[employer] 03/06/2012 6197-9-01 0 / / [id number] Surface Articular - [id number] Implanted:Qty: 1 on 10/10/2010 at [place] [facility] Right: Knee [employer] 10/04/2018 00-5994-0 32-14 / / [id number] Augment Blk Dist Fem F 10mm - [id number] Implanted:Qty: 2 on 10/10/2010 at [place] [facility] Right: Knee [employer] 09/03/2015 00-5490-0 36-20 / / [id number] Augment Blk Post Fem F 10mm - [id number] Implanted:Qty: 1 on 10/10/2010 at [place] [facility] Right: Knee [employer] 06/05/2015 00-5490-0 36-02 / / [id number] Patella Poly Nexgen - [id number] Implanted:Qty: 1 on 10/10/2010 at [place] [facility] Right: Knee [employer] 07/06/2018 00-5972-0 65-32 / / [id number] Cement Antibiotic Bone - [id number] Implanted:Qty: 1 on 10/10/2010 at [place] [facility] [employer] : ORTHOPA[employer] 6197-9-01 0 / / Plug 20/24mm Insert - [id number] Implanted:Qty: 1 on 10/10/2010 at [place] [facility] Right: Knee [employer] 00-8011-0 20- / [id number] Stem Extension 5988-04-18 - [id number] Implanted:Qty: 1 on 10/10/2010 at [place] [facility] Right: Knee [employer] 09/03/2020-5988-0 10- / [id number] Femur Porous Lcck - [id number] Implanted:Qty: 1 on 10/10/2010 at [place] [facility] Right: Knee [employer] 12/04/2019 00-5994-0 16- / / [id number] Augment Blk Trab Knee Tib 10mm - [id number] Implanted:Qty: 1 on 10/10/2010 at [place] [facility] Right: Knee [employer] 05/06/2015 00-5448-0 03- / [id number] Augment Blk Dist Fem F 10mm - [id number] Implanted:Qty: 1 on 10/10/2010 at [place] [facility] Right: Knee [employer] 09/03/2015-5490-0 36- / [id number] Augment Blk Post Fem F 5mm - [id number] Implanted:Qty: 1 on 10/10/2010 at [place] [facility] Right: Knee [employer] 09/03/2015-5490-0 36- / [id number] Plate Tibial Nexgen - [id number] Implanted:Qty: 1 on 10/10/2010 at [place] [facility] Right: Knee [employer] 09/03/2020-5980-0 37- / [id number] Stem Extension 5988-04-18 - [id number] Implanted:Qty: 1 on 10/10/2010 at [place] [facility] Right: Knee [employer] 06/05/2020-5988-0 04-18 / [id number] Lead Pace Selectsecure 3830-69 - [id number] - [id number] Implanted:Qty: 1 on 06/25/2021 by Gilma John DO at OR [facility] Left: Heart [employer] : ARAVIND 05/16/2023 [id number] / [id number] / Description: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 - [id number] - [id number] Implanted:Qty: 1 on 06/25/2021 by Gilma John, DO at OR [facility] Left: Heart [employer] : CRM 04/12/2023 5076-52 / [id number] / Description:Right Atrial Jayleen d Pacemaker [place] Xt Dr Sarah Wrls - [id number] - [id number] Implanted:Qty: 1 on 06/25/2021 by Gilma John, DO at OR [facility] Left: Chest [employer] 12/01/2022 [id number] / [id number] / Envelope Antibacterial Tyrx - [id number] Implanted:Qty: 1 on 06/25/2021 by Gilma John, DO at OR [facility] Left: Chest [employer] : CRM [id number] 02/16/2022 [id number] / / [id number] documented as of this encounter Visit Diagnoses Diagnosis Abdominal pain, generalized- Primary Nausea without vomiting Bladder stone Other calculus in bladder Chronic heart failure with preserved ejection fraction (HCC) documented in this encounter Advance Directives * Full Code (Latest Code Status on File) Date Activated Date Inactivated Comments 10/10/2010 10:23 AM 10/12/2010 3:38 PM This order re flects the patients wishes and were consensually agreed upon. Care Teams Remanufacturing Technician Relationship Specialty Start Date End Date Telma Jacobs CRNP [facility] [place] [id number] PCP - General Nurse Practitioner 02/12/22 documented as of this encounter
[2023-12-13] MEDS: MoRPHine SULFATE 2 MG/ML CARP IV STA (12:18)
--- NOTE | 2023-12-13 15:15 | CT Scan Report ---
CT SCAN OF THE ABDOMEN AND PELVIS WITHOUT IV CONTRAST CLINICAL HISTORY: Generalized abdominal pain. Bladder stone. COMPARISON STUDY: Prior abdominal CT scans, most recently dated 12/08/2023. TECHNIQUE: CT scan of the abdomen and pelvis is performed from the lung bases to the proximal femora. Images are reviewed in the axial, sagittal, and coronal planes. IV contrast was not administered for this examination. A dose lowering technique was utilized adhering to the principles of ALARA. CT DOSE: 1505.55 mGy.cm FINDINGS: Lung bases: The heart is mildly enlarged noting trace pericardial effusion. The coronary arteries are densely calcified. Pacemaker leads are in place. There is bibasilar scarring/atelectasis. Scattered calcified granulomas are observed. No airspace consolidation or pleural effusion is identified. There is a small hiatal hernia. Gynecomastia is noted. Liver: The unenhanced liver is normal in size, contour, and attenuation. There is no intrahepatic tj iary ductal dilatation. Gallbladder: Surgically absent and clips in the gallbladder fossa. Spleen: Normal in size and attenuation. Pancreas: The unenhanced pancreas is moderately atrophic and grossly unremarkable. Adrenal glands: Unremarkable. Kidneys: The unenhanced kidneys are atrophic and without hydronephrosis. No renal calculi are identif ied and there is no ureteral stone. An 18 mm complex/hyperdense cyst is again seen in the left upper pole. Abdominal vasculature: The abdominal aorta is normal in course and caliber noting moderate atheroscle rotic calcification. Bowel: There is no bowel obstruction. Postoperative changes seen at the ileocecal junction. The appen nelly is not identified and reported surgically absent. Peritoneum: There is no intraperitoneal free air or abdominal ascites. Lymphadenopathy: Mildly enlarged iliac chain nodes are unchanged from prior studies. A right iliac ch ain on image #265 measures 14 mm in short axis. Pelvic viscera: Evaluation of the pelvis is significantly degraded by streak artifact from bilateral hip arthroplasties. The prostate gland is enlarged and heterogeneous. The bladder wall is thickened/t rabeculated indicating chronic outlet obstruction. A 15 mm diverticulum is seen on the left. A 13 old or bladder calculus is again noted. Skeletal structures: The skeletal structures are osteopenic. There is moderate lumbosacral spondylosi s. Sclerotic change is seen in the sacroiliac joints. No lytic or blastic lesions are seen. Bilateral hip arthroplasties are in place. IMPRESSION: 1. No acute infectious or inflammatory findings are identified in the abdomen or pelvis. 2. Prostatomegaly with evidence of chronic bladder outlet obstruction. 3. A bladder calculus is again noted. This stone is mobile, as is located on the opposite side of the bladder from the 12/08/2023 examination. 4. Cardiomegaly. 5. Additional findings as above. ACT 112: Negative or not required by law. Electronically signed by: Shahram Hastings M.D. 12/13/2023 3:13 PM
[2023-12-13] MEDS: hydrOXYzine HCl 25 MG TAB PO ONE (15:36)
[2023-12-13] MEDS ORDERED: PHENAZOPYRIDINE HCL 200 MG TAB PO SCH (16:20)
--- OUTSIDE RECORDS SUMMARY | 2023-12-13 16:21 | External Medical Summary | Summary of Care ---
Author Name Unknown Organization [facility] Address [address] [facility] [place] [address] Phone [phone] Care Team Providers Care Grid Inspector Name Role Phone Telma Jacobs Primary Care Provider Encounter Details Date Type Department Care Team (Late st Contact Info) Description 12/12/2023 Orders Only Family [facility] [address] [place] [address] Telma Jacobs CRNP [address] [place] [id number] Allergies No known active allergiesdocumented as of [...] 24 Hour (toPROL XL)Indications:PAF (paroxysmal atrial fibrillation) ([facility]) Take 1 Tablet by mouth 2 times a day. 60 Tablet 5 11/19/2023 Active Eplerenone 25 MG Oral Tablet (Inspra)Indications:C hronic diastolic CHF (congestive heart failure), NYHA class 3 ([facility]) Take 0.5 Tablets by mouth [...] fibrillation) 05/27/2021 Coronary artery disease invo lving [place] coronary artery of [place] heart without angina pectoris 05/27/2021 Chronic heart failure with preserved ejection fr action 05/27/2021 Poison annabelle dermatitis 02/03/2021 Major depressive disorder, recurrent episode, mo derate 01/03/2021 Class 2 severe obesity due t o excess calories with serious comorbidity and body mass index (BMI) of 38.0 to 38.9 in adult 11/06/2020 Angio-edema 10/25/2020 History of 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 (PE) 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 0 10/22/2020 [...] pneumonia 09/23/2012 CARPAL TUNNEL SYNDROME S/P CTR /05/06/2011 12/06/2016 Pain in limb 01/28/2011 12/06/2016 RIGHT KNEE JOINT REPLACEMENT STATUS 12/25/2010 12/06/2016 Heart failure, diastolic, due to HTN 12/25/2010 07/21/2019 Overview: duplicate Persistent insomnia 12/25/2010 11/11/19 19 Venous thrombosis 11/01/2010 09/09/2011 VENOUS THROMBOSIS PROPHYLAXIS 10/10/2010 10/25/2010 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 [place] [address] [place], [facility] [address] [facility] [place] [address] 01/13/2024 2:30 PM EDT Office Visit Urology, [facility] [address] [address] Kvng Hart MD [address] [place] [address] 02/19/2024 8:30 AM EDT Office Visit Cardiology, [facility] [address] [facility] [place] [address] Amadeo Gomez PA-C [address] [facility] [place] [address] Pending Results Name Type Priority Associated Diagnoses Date /Time CHEMISTRY-OUTSIDE Lab Routine 024 Health Maintenance Due Date Last Done Comments Zoster Vaccines (1 of 2) 09/18/2013 07/24/2013, 03/09 COVID-19 Vaccine (2 - Pfizer risk series) 09/25/2020 09/04/2020 Albumin/Creatinine Ratio 01/11/2022 021, 01/28/2011, 11/20/2009, Additional history exists CKD PHOS USE SMARTSET 10093 05/02/202304/07, 12/20/2020, 10/29/2020, Additional history exists GFR 05/21/2024 11/19/2023, 10/05, 10/10/2023, Additional history exists CKD HGB USE SMARTSET 30450 11/18/202411/18, 10/10/2023, 07/24/2023, Additional history exists TSH [...] this encounter Medical Devices Implanted Type Area Swatch Maker Device Identifier Shelf Expiration Date Model / Serial / Lot Cement Antibiotic Bone - [id number] Implanted:Qty: 5 on 10/10/2010 [place] [facility] [place] Knee [employer] : [employer] 03/06/2012 6197-9-01 0 / / [id number] Surface Articular - [id number] Implanted:Qty: 1 on 10/10/2010 at [place] [facility] [place] Right: Knee [employer] 10/04/2018-5994-0 32-14 / / [id number] Augment Blk Dist Fem F 10mm - [id number] Implanted:Qty: 2 on 10/10/2010 at [place] [facility] [place] Right: Knee [employer] 09/03/2015 00-5490-0 36-20 / / [id number] Augment Blk Post Fem F 10mm - [id number] Implanted:Qty: 1 on 10/10/2010 at [place] [facility] [place] Right: Knee [employer] 06/05/2015 00-5490-0 36-02 / / [id number] Patella Poly Nexgen - [id number] Implanted:Qty: 1 on 10/10/2010 at [place] [facility] [place] Right: Knee [employer] 07/06/2018 00-5972-0 65-32 / / [id number] Cement Antibiotic Bone - [id number] Implanted:Qty: 1 on 10/10/2010 at [place] [facility] [place] [employer] : [employer] 6197-9-01 0 / / Plug 20/24mm Insert - [id number] Implanted:Qty: 1 on 10/10/2010 at [place] [facility] [place] Right: Knee [employer] 00-8011-0 20- / / [id number] Stem Extension 5988-04-18 - [id number] Implanted:Qty: 1 on 10/10/2010 at [place] [facility] [place] Right: Knee [employer] 09/03/2020 00-5988-0 10-13 / / [id number] Femur Porous Lcck - [id number] Implanted:Qty: 1 on 10/10/2010 at [place] [facility] [place] Right: Knee [employer] 12/04/2019 00-5994-0 16-92 / / [id number] Augment Blk Trab Knee Tib 10mm - [id number] Implanted:Qty: 1 on 10/10/2010 at [place] [facility] [place] Right: Knee [employer] 05/06/2015 00-5448-0 03-10 / / [id number] Augment Blk Dist Fem F 10mm - [id number] Implanted:Qty: 1 on 10/10/2010 at [place] [facility] [place] Right: Knee [employer] 09/03/2015-5490-0 36-20 / / [id number] Augment Blk Post Fem F 5mm - [id number] Implanted:Qty: 1 on 10/10/2010 at [place] [facility] [place] Right: Knee [employer] 09/03/2015 00-5490-0 36- / / [id number] Plate Tibial Nexgen - [id number] Implanted:Qty: 1 on 10/10/2010 at [place] [facility] [place] Right: Knee [employer] 09/03/2020 00-5980-0 37- / / [id number] Stem Extension 5988-04-18 - [id number] Implanted:Qty: 1 on 10/10/2010 at [place] [facility] [place] Right: Knee [employer] 06/05/2020 00-5988-0 04-18 [id number] Lead Pace Selectsecure 3830-69 - [id number] - [id number] Implanted:Qty: 1 on 06/25/2021 by Gilma John DO at OR [facility] Left: Heart [employer] : [facility] 05/16/2023 [id number] / [id number] / Description: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 - [id number] - [id number] Implanted:Qty: 1 on 06/25/2021 by Gilma John DO at OR [facility] Left: Heart [employer] : [facility] 04/12/2023 5076-52 / [id number] / Description:Right Atrial Jayleen d Pacemaker Sylvia Xt Dr Smith ls - [id number] - [id number] Implanted:Qty: 1 on 06/25/2021 by Gilma John DO at OR [facility] Left: Chest [employer] 12/01/2022 [id number] / [id number] / Envelope Antibacterial Tyrx - [id number] Implanted:Qty: 1 on 06/25/2021 by Gilma John DO at OR [facility] Left: Chest [employer] : [facility] [id number] 02/16/2022 [id number] / / [id number] documented as of this encounter Advance Directives * Full Code (Latest Code Status on File) Date Activated Date Inactivated Comments 10/10/2010 10:23 AM 10/12/2010 3:38 PM This order re flects the patients wishes and were consensually agreed upon. Care Teams Grid Inspector Relationship Specialty Start Date End Date Telma Jacobs CRNP [address] [place] [address] PCP - General Nurse Practitioner 02/12/22 documented as of this encounter
[2023-12-14 06:26] LABS: Hematocrit (blood only) 40.1 % (42.0-52.0); Hemoglobin 13.7 g/dl (14.0-18.0); Mean Corpuscular Hemoglobin 33.3 pg (25.0-34.0); Mean Corpuscular Hgb Conc 34.2 g/dL (32.0-36.0); Mean Corpuscular Volume 97.3 fL (80.0-100.0); Mean Platelet Volume 11.7 fL (9.4-12.4); Platelet Count 178 K/uL (130-400); RDW Coefficient of Variation 14.4 % (11.5-14.5); RDW Standard Deviation 51.8 fL (36.4-46.3); Red Blood Count 4.12 M/uL (4.70-6.10); White Blood Count 8.28 K/ul (4.8-10.8)
[2023-12-14 06:36] LABS: BUN Creatinine Ratio 16.7 (10-20); Calcium 8.3 mg/dl (8.6-10.3); Creatinine Clr Calc Pharmacy 40.3 ml/min; Est GFR (African American) 41.1 ml/min; Est GFR (Non-African American) 35.5 ml/min; Phosphorus 4.7 mg/dl (2.5-4.9); Potassium 3.5 mmol/L (3.5-5.1)
--- NOTE | 2023-12-14 07:37 | Urology Progress Note ---
Date of Service December 14, 2023 Assessment & Plan (1) Bladder calculi: (2) Lower abdominal pain: (3) Chronic retention of urine: (4) Acute on chronic diastolic heart failure with preserved ejection fraction: (5) CKD (chronic kidney disease): (6) Atrial fibrillation with rapid ventricular response: (7) Acute on chronic diastolic CHF (congestive heart failure): Plan Extensive conversation about options. Patient with large bladder stone ongoing pelvic and lower abdominal pain with increasing issues. Issues appear to come in waves. Have been severe at times. Has been an ongoing concern. Patient is very anxious about ongoing issues with pain. Has decreased oral intake and tried multiple efforts in order to manage issues. Repeat CT examination was reviewed extensively with patient and family. Was reviewed interpreted by myself. Please see above for the full breakdown of findings. Reviewed extensively both yesterday and today the findings as well as the patient's presentation. Unsure if the stone is causing the majority of problems or if it is more of a minor component or if it is causing any problems at all at this point however due to the large size and mobility of the stone did discuss concerns related to possible obstruction possible intermittent obstruction that may be explaining the waves of pain and the intermittency of issues as well as different options moving forward. Limited options for symptom control due to patient's renal function and some other possible interactions. Patient has not had considerable relief maintaining his current dose of alpha- shannon. Lab work is monitored. Most recent lab work from this morning came back at 8.28 white count creatinine has slightly improved again down to 1.74. Hemoglobin was 13.7. Patient's vitals have remained stable while patient has remained afebrile. All vitals as well as all lab work urine analysis and other assessment were reviewed. Patient's previous CT imaging over the last few years was extensively reviewed. Extensive conversation with hospitalist team coordinating different options moving forward. Reviewed extensively options moving forward with patient and patient's family. Discussed risk and benefits of possible intervention. Discussed possibility bleeding infection retention incomplete emptying and injury. Reviewed extensively options for management of stone versus other assessment of the lower urinary tract system. Multiple questions answered. Reviewed advantage of removing stone including the possible issues that the stone may be causing. Did discuss that this may not completely manage his pain. May need further workup especially from GI sensitive pain does persist. Did discuss possible need for catheter after procedure. Risks and benefits discussed at length for procedure. These include bleeding, infection, injury to surrounding tissues or organs, and risks associated with anesthesia. Patient states understanding and agrees to proceed. Will sign consent and proceed. Plan for cystolitholapaxy Admission and Anticipated Discharge Date Admission Date: December 12, 2023 Subjective Patient admitted with persistent abdominal pain and lower urinary tract symptoms of bother. Patient has a well-known history of bladder stones with diverticulum in the bladder. I presented to the ER earlier in the week and been evaluated and found to have increasing issues. Was having extremely poor appetite. Yesterday patient was evaluated and found to have slightly improved in the morning but developed more significant issues in the later morning. Extensive conversation with patient yesterday as well as conversation with patient's daughter yesterday afternoon. Had undergone repeat CT imaging due to persistent and worsening pain and discomfort. Has known history of stone and discomfort. Patient is afebrile. Has been undergoing supportive care with oral medications, IV medications, IV fluids, and oral intake. Patient has been losing weight has been decreasing oral intake due to ongoing episodes of abdominal pain. Has not developed severe vomiting or other issues. Has not experienced fever or chills. H has been tolerating fluids. Has noticed some frequency and urgency. Had limitations on options for symptom control. Has not had severe pain in the back and flank. Majority of pain is infraumbilical and along the groin and pelvis with some suprapubic discomfort. Does have occasional burning and irritation. Repeat CT examination was reviewed interpreted by myself. Patient does have a diverticulum on the left lateral wall that seems to be stable. Did have some mild retention of urine. Prostate visualization was extremely limited secondary to artifact from orthopedic hardware. Patient does have a large bladder stone still persistent in the bladder. Appears to be mobile all with the more recent imaging showing stone sitting in the left base of the bladder where previously it has been in the midline and right. Persistent pain episodes today extensive conversation with patient and phone call with patient's daughter this morning to discuss different options moving forward. Review of Systems Review of Systems: All systems reviewed & are unremarkable except as noted in HPI & below Physical Exam Physical Exam: General: Alert in no acute distress. Anxious about ongoing pain HEENT: Normocephalic Atraumatic. Inspection normal. Cranial Nerves 2-12 Grossly intact. Normal inspection of face. Normal inspection of neck. Psychologic: Normal affect. Baseline for memory issues. Respiratory: Nonlabored. No use of accessory muscles. No tachypnea or dyspnea. Cardiovascular: No tachycardia Skin: [place] and Dry. No rashes or visible lesions. Extremities/Lymphatics: No edema Abdomen: Persistent tenderness. Moderate distended. Mild guarding. No rebound Results & Data Vital Signs (Past 12 Hours) Vital Signs Temp Pulse Pulse Resp BP Pulse Ox O2 Del Method 12/14/23 07:13 65 12/14/23 03:10 36.7 C 70 18 136/76 94 Room Air 12/14/23 00:09 71 12/13/23 20:17 37.1 C 82 22 138/87 95 Room Air PG Care Time/CCT Total # of Minutes Spent Total Time Spent with Patient: Total time spent is greater than 50% in coordination of care (as documented) at patient's floor/unit and/or counseling patient: Coding Level of Care Code 38649 SUB INP/OBS CARE 3/50MIN Diagnoses Bladder calculi N21.0 Lower abdominal pain R10.30 Chronic retention of urine R33.9 Acute on chronic diastolic heart failure with preserved ejection fraction I50.33 CKD (chronic kidney disease) N18.9 Chronic kidney disease stage: unspecified stage Atrial fibrillation with rapid ventricular response I48.91 Acute on chronic diastolic CHF (congestive heart failure) I50.33 (5) CKD (chronic kidney disease) Chronic kidney disease stage: unspecified stage Qualified Code(s): N18.9 - Chronic kidney disease, unspecified
[2023-12-14] MEDS ORDERED: fentaNYL citrate PF 100 MCG/2 ML VIAL ONE (08:08)
[2023-12-14] MEDS ORDERED: PROPOFOL IV EMULSION 10 MG/ML 20 ML VIAL IV ONE (08:08)
[2023-12-14] MEDS ORDERED: LIDOCAINE 2% 2 ML VIAL/AMP(20MG/ML) INFIL ONE (08:08)
[2023-12-14] MEDS ORDERED: ONDANSETRON INJ 2 MG/ML 2 ML VIAL ONE (08:08)
[2023-12-14] MEDS: POTASSIUM CHLORIDE CRTAB 20 MEQ TABCR PO STA (08:45)
--- NOTE | 2023-12-14 09:08 | Anesthesiology Consultation ---
Date of Service December 14, 2023 Assessment & Plan Chart Review Chart Review: Acceptable Risk for Surgery and Patient NOT seen in Pre Admission Testing Consults Requested none History Surgery Operation Date: 12/14/23 09:15 Proposed Procedures p Cystolithopaxy - Jorge Kate DO Height/Weight Height: 5 ft 7 in Weight: 122.4 kg Allergies Allergy/AdvReac Type Severity Reaction Status Date / Time COVID-19 vaccine, mRNA, AdvReac Unknown probable Verified 12/12/23 17:20 [id number], L reaction: [From [place] (PF)] throat swelling Medications Home Medications Medication Instructions Recorded Confirmed Last Taken allopurinol 300 mg tablet 300 mg PO QAM 04/30/18 12/12/23 12/08/23 atorvastatin 10 mg tablet 5 mg PO QAM 04/30/18 12/12/23 12/08/23 cholecalciferol (vitamin D3) 50 2,000 unit PO QAM 04/30/18 12/12/23 11/29/22 mcg (2,000 unit) capsule (Vitamin D3) omeprazole 40 mg capsule,delayed 40 mg PO DAILY 04/30/18 12/12/23 12/08/23 release terazosin 5 mg capsule 5 mg PO HS 04/30/18 12/12/23 12/07/23 montelukast 10 mg tablet 10 mg PO QAM 05/07/21 12/12/23 12/08/23 apixaban 2.5 mg tablet (Eliquis) 2.5 mg PO BID #60 tabs 07/13/21 12/12/23 12/12/23 09:00 diphenoxylate-atropine 2.5 1 tab PO QID PRN Diarrhea 07/10/22 12/12/23 Unknown mg-0.025 mg tablet magnesium oxide 400 mg PO BID #60 caps 12/01/22 12/12/23 Unknown calcium carbonate 1,500 mg PO BID 01/23/23 12/12/23 Unknown cyanocobalamin (vitamin B-12) 1,000 mcg PO DAILY 01/23/23 12/12/23 Unknown 1,000 mcg tablet eplerenone 25 mg tablet 12.5 mg PO DAILY 01/23/23 12/12/23 12/08/23 triamcinolone acetonide 0.1 % 1 applic topical BID PRN flare up 01/23/23 12/12/23 Unknown topical cream acyclovir 400 mg tablet 400 mg PO BID 03/28/23 12/12/23 12/08/23 albuterol sulfate 90 mcg/actuation 2 puff inhalation QID PRN 03/28/23 12/12/23 Unknown aerosol inhaler Shortness Of Breath Or Wheezing potassium chloride 20 mEq 20 meq PO DAILY 10/10/23 12/12/23 12/08/23 tablet,extended release hydralazine 25 mg tablet 25 mg PO TID 12/08/23 12/12/23 12/08/23 levothyroxine 75 mcg tablet 75 mcg PO QAM 12/08/23 12/12/23 12/08/23 metoprolol succinate 50 mg 50 mg PO BID 12/08/23 12/12/23 12/08/23 tablet,extended release 24 hr torsemide 20 mg tablet 40 mg PO QAM 12/08/23 12/12/23 12/08/23 Active Medications Generic Name Dose Route Start Last Admin Trade Name Lzibeth PRN Reason Stop Dose Admin Apixaban 2.5 mg 12/12/23 23:37 12/14/23 08:45 Apixaban 2.5 Mg Tab PO 01/11/24 23:36 2.5 mg BID VINCENT Administration Levothyroxine Sodium 75 mcg 12/13/23 06:30 12/14/23 05:37 Levothyroxine Sodium 75 Mcg Tablet PO 01/12/24 06:29 75 mcg DAILYBB VINCENT Administration Metoprolol Succinate 50 mg 12/12/23 23:37 12/14/23 08:45 Metoprolol Succ 50mg Ext Rel Tab PO 01/11/24 23:36 50 mg BID IVNCENT Administration Oxycodone HCl 5 mg 12/12/23 18:38 12/13/23 09:09 Oxycodone Hcl Ir 5 Mg Tab (Immediate Release) PO 12/26/23 18:37 5 mg Q6H PRN Administration Pain Past Medical History Medical History Obesity Chronic diarrhea WORSENING...REASON FOR UPCOMING PROCEDURES Thyroid disease Anxiety and depression Multiple myeloma dx 4 yr ago...current chemo tx monthly SOB (shortness of breath) SOB ON EXERTION...CT scan done 1-1.5 mon ago [facility]...form of blood clot and fluid ? extent , some kind of scarring - f/u with lung specialist - appointment not yet made History of pulmonary embolism History of DVT (deep vein thrombosis) Diarrhea Thrombocytopenia Elevated troponin I level Hypoxia 2018 novel coronavirus-infected pneumonia (NCIP) ? 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 HX Prolonged QT interval ? HX GERD (gastroesophageal reflux disease) BPH without obstruction/lower urinary tract symptoms Carpal tunnel syndrome Gout hx Restless leg syndrome Past Family History Family History Father Heart disease Mother Diabetes Hypertension Brother Family hx of colon cancer Brother Family hx of colon cancer Past Surgical History Surgical History History of cardiac cath ? 2009 - unable to verify - no known hx stent(s) History of revision of total knee arthroplasty ? side...d/t infection History of pacemaker jun 2021/? type/recent check unknown details History of thoracentesis July [address] Jeffries. No bacterial growth or malignancy Pleurx catheter placed July 2019. Removed September 2019 History of appendectomy Status post total hip replacement, left History of esophagogastroduodenoscopy (EGD) History of colonoscopy History of tooth extraction History of cataract surgery RT/LEFT History of total right hip arthroplasty H/O sinus surgery unknown History of bilateral knee arthroplasty Hx of cholecystectomy Social History Smoking Status: Never smoker Do You Dip or Chew Tobacco: No Hx Alcohol Use: No Hx Substance Use: No substance use type: does not use Physical Exam Vital Signs Last Vital Signs Temp 36.9 C 12/14/23 07:45 Pulse 70 12/14/23 07:45 Resp 16 12/14/23 07:45 BP 136/68 12/14/23 07:45 Pulse Ox 94 12/14/23 07:45 O2 Del Method Room Air 12/14/23 07:45 FiO2 21 12/12/23 23:55 Constitutional WD/WN, vitals as above Eyes PERRL, conjunctivae normal, anicteric sclerae ENMT external ear and nose normal, oropharynx normal Neck + short neck (supple) Respiratory normal respiratory effort, lungs clear to auscultation Cardiovascular RRR, no murmur, no edema Chest (Breasts) Chest: normal inspection of chest Gastrointestinal (Abdomen) Inspection/Auscultation: abdomen normal to inspection (tender to palp. lower abd. quadrants/suprapubic) and normal bowel sounds Musculoskeletal no cyanosis or clubbing, extremities motor strength 5/5 Skin no rashes, warm and dry Neurologic PERRL, EOMI, accommodation nl, no face palsy, no dysarthria Psychiatric A+Ox3, euthymic affect Lymphatic no lymphedema Testing Laboratory Results 12/14/23 05:27 12/14/23 05:27 Urine Color Yellow 12/12/23 17:40 Urine Appearance Clear (Clear) 12/12/23 17:40 Urine pH 5.5 (4.5-7.5) 12/12/23 17:40 Ur Specific [place] 1.021 (1.000-1.030) 12/12/23 17:40 Urine Protein Trace (Negative) H 12/12/23 17:40 Urine Glucose (UA) Negative (Negative) 12/12/23 17:40 Urine Ketones Negative (Negative) 12/12/23 17:40 Urine Nitrite Negative (Negative) 12/12/23 17:40 Ur Leukocyte Esterase Negative (Negative) 12/12/23 17:40 Urine WBC (Auto) 0-5 /hpf (0-5) 12/12/23 17:40 Urine RBC (Auto) 0-2 /hpf (0-2) 12/12/23 17:40 U Hyaline Cast (Auto) 0-2 /lpf (0-2) 12/12/23 17:40 U Epithel Cells (Auto) 0-2 /hpf (0-2) 12/12/23 17:40 Urine Bacteria (Auto) None Seen (None Seen) 12/12/23 17:40 12/12/23 13:32 Aerobic Blood Culture - Preliminary Blood No growth in Aerobic bottle after 24 hours. Anaerobic Blood Culture - Preliminary No growth in Anaerobic bottle after 24 hours. 12/12/23 13:35 Aerobic Blood Culture - Preliminary Blood No growth in Aerobic bottle after 24 hours. Anaerobic Blood Culture - Preliminary No growth in Anaerobic bottle after 24 hours.
[2023-12-14] MEDS ORDERED: ceFAZolin 2000MG 2,000 MG/15 ML SYR IV ONE (09:23)
--- NOTE | 2023-12-14 09:29 | Hospitalist Progress Note ---
Date of Service December 14, 2023 Assessment & Plan (1) Confusion: (2) Abdominal pain: Plan: - unclear cause of pt's mental status change - CT head negative - mental status now much improved/ seems back to baseline - received IVF in the ED ? infectious etiology - pt afebrile, and WBC not elevated - UA- negative, CXR- mild congestive change, no sign of pna, blood cultx - pending, procalcitonin- negative Abdominla pain CT abd./pelvis obtained on 12/07 c/w bladder stone, UA negative at that time - continues to have pain in lower abd. quadrants/suprapubic - per daughter, pt seen by [facility] urology- Dr. Burnette in the past, but not aware of any renal stones - current UA negative - obtained renal US - 1. The kidneys demonstrate mild cortical atrophy and are without hydronephrosis 2. The bladder is decompressed and grossly unremarkable. 3. A 12 mm bladder calculus is noted. - Urology consulted 12/12 Pt cont. w/ abd. pain - discussed w/ urology and CT abd. pelvis repeated - 1. No acute infectious or inflammatory findings are identified in the abdomen or pelvis. 2. Prostatomegaly with evidence of chronic bladder outlet obstruction. 3. A bladder calculus is again noted. This stone is mobile, as is located on the opposite side of the bladder from the 12/08/2023 examination. - cont. pain control w/ tylenol and oxycodone prn 12/13 + severe suprapubic pain overnight (4AM) - discussed w/ urology - likely plan to remove the bladder stone, to see if this will eliminate the pain. (3) Atrial fibrillation: Plan: also hx of deborah-tachy syndrome s/p pacer - follows w/ [facility] cardiology - cont. eliquis and metoprolol - monitor on tele Hx of diastolic CHF - seems euvolemic - some mild vasc. congestion CXR - breathing comfortably on RA - pro-BNP wnl - gave one dose of torsemide, hold now as pt has been npo hx of CAD - cont. home cardiac meds (4) CKD (chronic kidney disease), stage III: Plan: - baseline Cr lately 1.7-2.3 - current 1.7 - cont. to monitor - try to avoid nephrotoxic agents Hypothyroidism - cont. home levothyroxine - current TSH 3.4 wnl MM - follows w/ a local cancer center (5) Obstructive sleep apnea on CPAP: Plan: - CPAP HS Admission and Anticipated Discharge Date Admission Date: December 12, 2023 Subjective Pt seen in follow up of AMS, abd. pain, bladder stone Currently laying in bed, in no acute distress, however overnight he developed severe suprapubic pain. Patient says that last evening was okay however he woke up at 4 AM, and pain was severe and suprapubic. Yesterday he described pain in the lower abdominal quadrants bilaterally. At that time discussed with urology, and we repeated the CT abdomen pelvis. Mental status seems to be back to baseline, he is able to answer questions appropriately. No fevers chills chest pain shortness of breath. Discussed with urology, and plan is likely to remove the bladder stone, to see if this will eliminate the pain. Review of Systems Review of Systems: All systems reviewed & are unremarkable except as noted in Subjective Physical Exam Physical Exam: Constitutional: Obese elderly M in NAD Eyes: PERRL, EOMI, conju nctivae normal, an icteric sclerae ENMT: external ear and n ose normal, oropha rynx normal Neck: + short neck (sup ple) Respiratory: normal respiratory effort, lungs rachel ar to auscultation Cardiovascular: RRR, no murmur, no edema Chest (Breasts): Chest: normal insp ection of chest Gastrointestinal ( Abdomen): soft, obese, tende r to palp. in supr apubic region (and some lower abd. q uadrants b/l), + bowel sounds Musculoskeletal: movese extremities Skin: no rashes, warm an d dry Neurologic: PERRL, EOMI, no fa ce palsy, no dysar thria, moves extre mities Psychiatric: A+Ox3, euthymic af fect Lymphatic: no lymphedema Results & Data Results & Data Vital Signs (Past 12 Hours) Vital Signs Temp Pulse Pulse Resp BP Pulse Ox O2 Del Method 12/14/23 07:45 36.9 C 70 16 136/68 94 Room Air 12/14/23 07:13 65 12/14/23 03:10 36.7 C 70 18 136/76 94 Room Air 12/14/23 00:09 71 Laboratory Results 12/14/23 12/13/23 Range/Units 05:27 13:25 WBC 8.28 (4.8-10.8) K/ul RBC 4.12 L (4.70-6.10) M/uL Hgb 13.7 L (14.0-18.0) g/dl Hct 40.1 L (42.0-52.0) % MCV 97.3 (80.0-100.0) fL MCH 33.3 (25.0-34.0) pg MCHC 34.2 (32.0-36.0) g/dL RDW Std Deviation 51.8 H (36.4-46.3) fL RDW Coeff of [place] 14.4 (11.5-14.5) % Plt Count 178 (130-400) K/uL MPV 11.7 (9.4-12.4) fL Sodium 141 (136-145) mmol/L Potassium 3.5 (3.5-5.1) mmol/L Chloride 103 (98-107) mmol/L Carbon Dioxide 29 (21-32) mmol/L Anion Gap 9 (3-11) BUN 29 H (6-23) mg/dl Creatinine 1.74 H (0.6-1.4) mg/dl Est Cr Clr Drug Dosing 40.3 ml/min Est GFR ( Amer) 41.1 ml/min Est GFR (Non-Af Amer) 35.5 ml/min BUN/Creatinine Ratio 16.7 (10-20) Glucose 96 (70-99(Fasting)) mg/dl Lactate 2.0 (0.4-2.0) mmol/L Calcium 8.3 L (8.6-10.3) mg/dl Phosphorus 4.7 (2.5-4.9) mg/dl Magnesium 2.0 (1.7-2.4) mg/dl Medications Administered Current Inpatient Medications Acetaminophen (Acetaminophen 325 Mg Tab) 650 mg PO Q4H PRN PRN Reason: Pain or Fever Stop: 01/11/24 17:51 Albuterol (Albuterol Hfa 8 Gm Inhaler) 2 puffs INH QID PRN PRN Reason: Shortness Of Breath Or Wheezin Stop: 01/11/24 23:36 Apixaban (Apixaban 2.5 Mg Tab) 2.5 mg PO BID VINCENT Stop: 01/11/24 23:36 Last Admin: 12/14/23 08:45 Dose: 2.5 mg Cefazolin Sodium (Ancef 3000mg) 3,000 mg in 72.5 mls @ 130 mls/hr IV PREOP [facility]; Protocol Stop: 12/15/23 05:59 Levothyroxine Sodium (Levothyroxine Sodium 75 Mcg Tablet) 75 mcg PO DAILYBB [facility] Stop: 01/12/24 06:29 Last Admin: 12/14/23 05:37 Dose: 75 mcg Metoprolol Succinate (Metoprolol Succ 50mg Ext Rel Tab) 50 mg PO BID [facility] Stop: 01/11/24 23:36 Last Admin: 12/14/23 08:45 Dose: 50 mg Oxycodone HCl (Oxycodone Hcl Ir 5 Mg Tab (Immediate Release)) 5 mg PO Q6H PRN PRN Reason: Pain Stop: 12/26/23 18:37 Last Admin: 12/13/23 09:09 Dose: 5 mg
[2023-12-14] MEDS: ceFAZolin 3000MG 3,000 MG/72.5 ML BAG IV SCH (09:49)
[2023-12-14] MEDS ORDERED: ceFAZolin 330 MG/ML 1 GM VIAL ONE (09:51)
--- NOTE | 2023-12-14 10:34 | Operative Report ---
PG Post Operative Report Pre & Post Diagnosis Operation Date: 12/14/23 09:15 Pre-Op Diagnosis: Bladder calculi Post-Op Diagnosis: Bladder calculi I identified the patient and participated in the time-out.: Yes Procedure Operation Date: 12/14/23 09:15 Actual Procedures p Cystolithopaxy and Fulguration of Prostate(Not Applicable) - Jorge Kate DO Surgeon Jorge Kate, II, DO Emergency Medcl Emt None Estimated Blood Loss 5 Findings Consistent with Post-Op Diagnosis Severely enlarged Prostate with obstruction. Large diverticulum of the left posterior wall. No masses or tumors. Approx 2.2 cm stone with multiple spines/projections off the stone adding to the overall size. Stone located within the base of bladder with stone in between the prosterior wall and the median lobe and bladder neck. Significant bleeding varicosity throughout prostate and bladder neck. Significant inflammation of the base and posterior wall and bladder neck. Specimens Bladder Stone Drains 22Fr coud catheter Anesthesia Type General Complications none Disposition Disposition: Recovery Room Indications Patient with obstruction due to prostate enlargement with large bladder stone and increasing pain. Risks and benefits discussed at length. Description of Procedure Patient was consented and brought back to the operating room. Patient was placed under anesthesia in the supine position and moved to the dorsal lithotomy position. Patient was prepped and draped in the regular sterile fashion. A time out was completed. A 30degree Cystoscope was placed into the bladder and the entire bladder was examined. The UO's were identified as well as the bladder neck, trigone, dome, and the other important landmarks. The prostatic urethra and large lobes/adenoma was assessed and the veru and bladder neck identified and area/size was assessed. The prostate was found to be severely enlarged with very large lateral lobes and a very high bladder neck. There was extremely large prostatic varicosities throughout the prostate with areas of bleeding that were noted upon the first placement of the scope. There was severe inflammation around the bladder neck and in the base as well as some inflammation on the posterior wall. Patient had a large diverticulum along the posterior wall on the left. The extremely large stone was found to be in the base of the bladder. Looked hard and had multiple projections coming off of the stone. Images were captured. A laser fiber was selected and a 5 [place] open-ended catheter was used to stabilize the fiber. The stone was then assessed. On the bladder stone settings the stone was able to be dusted. There was some fracturing of the stone towards the end. Care was taken to monitor the trigone and posterior wall during the stone destruction. Extensive lasering was needed to dust the stone and break it up into the manageable fragments. The stone was found to be very hard. After extensive lasering in order to destroyed the stone the bladder stone pieces were able to be collected and irrigated clear. Throughout the obstruction of the stone there was some areas of varicosities along the bladder neck that had a very slow bleed likely due to the inflammation. The posterior wall and base were found to be severely inflamed likely from the irritation from the stone. The laser was used on soft tissue settings and the hemostasis setting was used to fulgurate/ablate the bleeding varicosities along the bladder neck. 5 different individual large varicosities were able to be fulgurated in this manner. The stone specimen was removed and sent for analysis. Additional areas of inflammation along the bladder neck were fulgurated/cauterized and the entire area inspected. All bleeding was controlled. The bladder was inspected a final time. No major injuries or areas of concern there was some significant inflammation where the stone had been located but no signs of any major issues masses tumors or other areas concern. The bladder was emptied and irrigated. All specimen and debris was removed. The scope was removed with the bladder partially full. Patient did have a very large prostate and will likely need further intervention. A 22 [place] coud catheter was placed and balloon elevated. This was easily irrigated. The patient was cleaned, aroused from anesthesia, and transferred to the pacu in stable condition having tolerated the procedure well with no complications. I was present and participated in all aspects of the procedure. The patient will be monitored in the PACU until transferred. Will plan to monitor the catheter for drainage. Will await the stone analysis. Patient has extremely large prostate and may need to consider different options for management especially if continued ongoing issues with bladder related problems, stone Development, and pelvic pain. Will plan to maintain catheter for the next 3 to 5 days with removal. Will plan follow-up in approximately 1 month after hospitalization I attest to the content of the Intraoperative Record and any orders documented therein. Any exceptions are noted below.
--- NOTE | 2023-12-14 12:01 | Anesthesiology Progress Note ---
Date of Service December 14, 2023 Anesthesia Post Procedure Vital Signs Vital Signs: Temp Pulse Pulse Pulse Resp BP Pulse Ox 12/14/23 11:25 66 17 140/84 97 12/14/23 11:15 36.3 C L 63 18 150/89 H 96 12/14/23 11:05 66 16 145/81 H 97 12/14/23 10:55 66 20 139/79 98 12/14/23 10:45 71 14 147/81 H 98 12/14/23 10:35 63 18 163/97 H 100 12/14/23 10:26 36.3 C L 69 12 165/107 H 100 12/14/23 07:45 36.9 C 70 16 136/68 94 12/14/23 07:13 65 12/14/23 03:10 36.7 C 70 18 136/76 94 12/14/23 00:09 71 12/13/23 20:17 37.1 C 82 22 138/87 95 12/13/23 15:00 36.7 C 70 16 128/82 95 12/13/23 14:55 69 O2 Del Method O2 Flow Rate 12/14/23 11:25 Nasal Cannula 2 12/14/23 11:15 Nasal Cannula 2 12/14/23 11:05 Nasal Cannula 2 12/14/23 10:55 Oxymask 3 12/14/23 10:45 Oxymask 4 12/14/23 10:35 Oxymask 6 12/14/23 10:26 Oxymask 6 12/14/23 07:45 Room Air 12/14/23 07:13 12/14/23 03:10 Room Air 12/14/23 00:09 12/13/23 20:17 Room Air 12/13/23 15:00 Room Air 12/13/23 14:55 Pain Intensity Abdomen: Pain Intensity: 6 Transfer of Care Handoff Completed per policy Notes Mental Status: alert / awake / arousable Patient Amnestic to Procedure: Yes Nausea / Vomiting: adequately controlled Pain: adequately controlled Airway Patency, RR, SpO2: stable & adequate BP & HR: stable & adequate Hydration State: stable & adequate Anesthetic Complications: no major complications apparent and Pt Satisfied with anesthetic care
[2023-12-14 20:55] LABS: Hematocrit (blood only) 40.3 % (42.0-52.0); Hemoglobin 13.9 g/dl (14.0-18.0)
[2023-12-15 06:56] LABS: Hematocrit (blood only) 38.9 % (42.0-52.0); Hemoglobin 13.3 g/dl (14.0-18.0); Mean Corpuscular Hemoglobin 33.2 pg (25.0-34.0); Mean Corpuscular Hgb Conc 34.2 g/dL (32.0-36.0); Mean Platelet Volume 11.8 fL (9.4-12.4); Platelet Count 164 K/uL (130-400); RDW Coefficient of Variation 14.3 % (11.5-14.5); RDW Standard Deviation 51.2 fL (36.4-46.3); Red Blood Count 4.01 M/uL (4.70-6.10); White Blood Count 11.75 K/ul (4.8-10.8)
[2023-12-15 07:37] LABS: Anion Gap 7 (3-11); BUN Creatinine Ratio 15.8 (10-20); Blood Urea Nitrogen 27 mg/dl (6-23); Carbon Dioxide 29 mmol/L (21-32); Chloride 103 mmol/L (98-107); Est GFR (Non-African American) 36.2 ml/min; Glucose 112 mg/dl (70-99(Fasting)); Phosphorus 4.4 mg/dl (2.5-4.9); Sodium 139 mmol/L (136-145)
--- NOTE | 2023-12-15 08:20 | Hospitalist Progress Note ---
Date of Service December 15, 2023 Assessment & Plan (1) Confusion: (2) Abdominal pain: Plan: - unclear cause of pt's mental status change - CT head negative - mental status now much improved/ seems back to baseline - received IVF in the ED ? infectious etiology - pt afebrile, and WBC not elevated - UA- negative, CXR- mild congestive change, no sign of pna, blood cultx - pending, procalcitonin- negative Abdominla pain CT abd./pelvis obtained on 12/07 c/w bladder stone, UA negative at that time - continues to have pain in lower abd. quadrants/suprapubic - per daughter, pt seen by [facility] urology- Dr. Burnette in the past, but not aware of any renal stones - current UA negative - obtained renal US - 1. The kidneys demonstrate mild cortical atrophy and are without hydronephrosis 2. The bladder is decompressed and grossly unremarkable. 3. A 12 mm bladder calculus is noted. - Urology consulted 12/12 Pt cont. w/ abd. pain - discussed w/ urology and CT abd. pelvis repeated - 1. No acute infectious or inflammatory findings are identified in the abdomen or pelvis. 2. Prostatomegaly with evidence of chronic bladder outlet obstruction. 3. A bladder calculus is again noted. This stone is mobile, as is located on the opposite side of the bladder from the 12/08/2023 examination. - cont. pain control w/ tylenol and oxycodone prn 12/13 + severe suprapubic pain overnight (4AM) - discussed w/ urology - likely plan to remove the bladder stone, to see if this will eliminate the pain. 12/14 pt is s/p p Cystolithopaxy and Fulguration of Prostate(Not Applicable) - Jorge Kate, DO (12/14/23) Abdominal pain seems to be resolved. Pt has Briceno placed w/ blood tinged urine, reports some burning/ dysuria. Discussed w/ urology - will start oxybutinin and emp. abx (3) Atrial fibrillation: Plan: also hx of deborah-tachy syndrome s/p pacer - follows w/ [facility] - on eliquis and metoprolol, resume eliquis - monitor on tele Hx of diastolic CHF - seems euvolemic - some mild vasc. congestion CXR - breathing comfortably on RA - pro-BNP wnl - gave one dose of torsemide, hold for now hx of CAD - cont. home cardiac meds (4) CKD (chronic kidney disease), stage III: Plan: - baseline Cr lately 1.7-2.3 - current 1.7 - cont. to monitor - try to avoid nephrotoxic agents Hypothyroidism - cont. home levothyroxine - current TSH 3.4 wnl MM - follows w/ a local cancer center (5) Obstructive sleep apnea on CPAP: Plan: - CPAP HS Admission and Anticipated Discharge Date Admission Date: December 12, 2023 Subjective Pt seen in follow up of AMS, abd. pain, bladder stone Currently laying in bed, in no acute distress, but complains of some burning/dysuria. Underwent urologic procedure yesterday with Dr. Kate, Briceno placed, draining blood-tinged urine. Abdominal pain that he used to have, seems to be resolved at this time. Mental status back to baseline, he is able to answer questions appropriately. No fevers chills chest pain shortness of breath. Discussed with urology, will place on oxybutynin, will also start empiric antibiotic Review of Systems Review of Systems: All systems reviewed & are unremarkable except as noted in Subjective Physical Exam Physical Exam: Constitutional: Obese elderly M in NAD Eyes: PERRL, EOMI, conju nctivae normal, an icteric sclerae ENMT: external ear and n ose normal, oropha rynx normal Neck: + short neck (sup ple) Respiratory: normal respiratory effort, lungs rachel ar to auscultation Cardiovascular: RRR, no murmur, no edema Chest (Breasts): Chest: normal insp ection of chest Gastrointestinal ( Abdomen): soft, obese, nonte nder, + bowel renetta nds; Briceno placed drains blood tinge d urine Musculoskeletal: movese extremities Skin: no rashes, warm an d dry Neurologic: PERRL, EOMI, no fa ce palsy, no dysar thria, moves extre mities Psychiatric: A+Ox3, euthymic af fect Lymphatic: no lymphedema Results & Data Results & Data Vital Signs (Past 12 Hours) Vital Signs Temp Pulse Pulse Resp BP Pulse Ox O2 Del Method 12/15/23 07:34 37.6 C H 61 16 137/77 93 BiPAP 06/10/24 04:08 37.2 C 75 20 106/67 94 Room Air 12/15/23 03:27 68 26 H 94 12/14/23 23:42 37.2 C 63 22 112/61 92 CPAP 12/14/23 22:18 66 25 H 92 12/14/23 22:02 69 FiO2 12/15/23 07:34 12/15/23 04:08 12/15/23 03:27 21 12/14/23 23:42 12/14/23 22:18 21 12/14/23 22:02 Laboratory Results 12/15/23 12/15/23 12/14/23 Range/Units 07:40 06:27 20:41 WBC 11.75 H (4.8-10.8) K/ul RBC 4.01 L (4.70-6.10) M/uL Hgb 13.3 L 13.9 L Hct 38.9 L 40.3 L MCV 97.0 (80.0-100.0) fL MCH 33.2 (25.0-34.0) pg MCHC 34.2 (32.0-36.0) g/dL RDW Std Deviation 51.2 H (36.4-46.3) fL RDW Coeff of Nunu 14.3 (11.5-14.5) % Plt Count 164 (130-400) K/uL MPV 11.8 (9.4-12.4) fL Sodium 139 (136-145) mmol/L Potassium 3.7 TNP Chloride 103 (98-107) mmol/L Carbon Dioxide 29 (21-32) mmol/L Anion Gap 7 (3-11) BUN 27 H (6-23) mg/dl Creatinine 1.71 H (0.6-1.4) mg/dl Est Cr Clr Drug Dosing 41.0 ml/min Est GFR ( Amer) 42.0 ml/min Est GFR (Non-Af Amer) 36.2 ml/min BUN/Creatinine Ratio 15.8 (10-20) Glucose 112 H (70-99(Fasting)) mg/dl Calcium 8.0 L (8.6-10.3) mg/dl Phosphorus 4.4 (2.5-4.9) mg/dl Magnesium 2.0 (1.7-2.4) mg/dl 06/09/24 Range/Units 18:57 WBC (4.8-10.8) K/ul RBC (4.70-6.10) M/uL Hgb Cancelled Hct Cancelled MCV (80.0-100.0) fL MCH (25.0-34.0) pg MCHC (32.0-36.0) g/dL RDW Std Deviation (36.4-46.3) fL RDW Coeff of Nunu (11.5-14.5) % Plt Count (130-400) K/uL MPV (9.4-12.4) fL Sodium (136-145) mmol/L Potassium Chloride (98-107) mmol/L Carbon Dioxide (21-32) mmol/L Anion Gap (3-11) BUN (6-23) mg/dl Creatinine (0.6-1.4) mg/dl Est Cr Clr Drug Dosing ml/min Est GFR ( Amer) ml/min Est GFR (Non-Af Amer) ml/min BUN/Creatinine Ratio (10-20) Glucose (70-99(Fasting)) mg/dl Calcium (8.6-10.3) mg/dl Phosphorus (2.5-4.9) mg/dl Magnesium (1.7-2.4) mg/dl Medications Administered Current Inpatient Medications Acetaminophen (Acetaminophen 325 Mg Tab) 650 mg PO Q4H PRN PRN Reason: Pain or Fever Stop: 01/11/24 17:51 Albuterol (Albuterol Hfa 8 Gm Inhaler) 2 puffs INH QID PRN PRN Reason: Shortness Of Breath Or Wheezin Stop: 01/11/24 23:36 Apixaban (Apixaban 2.5 Mg Tab) 2.5 mg PO BID [facility] Stop: 01/11/24 23:36 Last Admin: 12/14/23 08:45 Dose: 2.5 mg Levothyroxine Sodium (Levothyroxine Sodium 75 Mcg Tablet) 75 mcg PO DAILYBB [facility] Stop: 01/12/24 06:29 Last Admin: 12/15/23 05:31 Dose: 75 mcg Metoprolol Succinate (Metoprolol Succ 50mg Ext Rel Tab) 50 mg PO BID [facility] Stop: 01/11/24 23:36 Last Admin: 06/09/24 20:14 Dose: 50 mg Oxycodone HCl (Oxycodone Hcl Ir 5 Mg Tab (Immediate Release)) 5 mg PO Q6H PRN PRN Reason: Pain Stop: 12/26/23 18:37 Last Admin: 12/13/23 09:09 Dose: 5 mg
[2023-12-15] MEDS: PANTOprazole 40 MG TAB PO SCH (08:59)
--- NOTE | 2023-12-15 10:02 | Urology Progress Note ---
Date of Service December 15, 2023 Assessment & Plan (1) Bladder calculi: (2) Chronic retention of urine: Plan - POD #1 s/p Cystolitholapaxy and Fulguration of Prostate with Dr. Kate - Afebrile (Tmax 37.6C). Hemodynamically stable. - Labs reviewed - WBC 11.75, Hemoglobin 13.3, Creatinine 1.71 - Blood cultures 6/7 prelim no growth x 48 hours. - Briceno intact and draining appropriately - urine is pink tinged. - No further intervention warranted. - Plan to maintain Briceno catheter for approximately 1 week. Will arrange catheter removal in the urology clinic. - Continue supportive care and pain management. - Can consider Oxybutynin PRN bladder spasms and Pyridium PRN for bladder pain/dysuria - Discussed with hospital team abx coverage given recent procedure/catheter - Discussed with patients daughter Kate. - Urology will follow. Admission and Anticipated Discharge Date Admission Date: December 12, 2023 Subjective Pt seen at bedside this AM. Awake, resting in bed on arrival. No acute distress. Denies f/c/n/v. Briceno draining pink tinged urine. Reports some dysuria. Review of Systems Constitutional: as per Subjective / HPI Gastrointestinal: as per Subjective / HPI Genitourinary: + as per Subjective / HPI Physical Exam Constitutional: no acute distress Respiratory: no respiratory distress and no labored breathing Neurologic: moves all extremities and awake Psychiatric: A+Ox3, euthymic affect Genitourinary: Briceno catheter intact Results & Data Vital Signs (Past 12 Hours) Vital Signs Temp Pulse Pulse Resp BP Pulse Ox O2 Del Method 12/15/23 07:34 37.6 C H 61 16 137/77 93 BiPAP 12/15/23 04:08 37.2 C 75 20 106/67 94 Room Air 12/15/23 03:27 68 26 H 94 12/14/23 23:42 37.2 C 63 22 112/61 92 CPAP 12/14/23 22:18 66 25 H 92 FiO2 12/15/23 07:34 12/15/23 04:08 12/15/23 03:27 21 12/14/23 23:42 12/14/23 22:18 21 PG Care Time/CCT Total # of Minutes Spent Total Time Spent with Patient: Total time spent is greater than 50% in coordination of care (as documented) at patient's floor/unit and/or counseling patient: Coding Level of Care Code 87419 SUB INP/OBS CARE MIN Diagnoses Bladder calculi N21.0 Chronic retention of urine R33.9
[2023-12-15] MEDS ORDERED: cefTRIAXone SODIUM 1,000 MG/50 ML BAG IV SCH (15:15)
--- NOTE | 2023-12-15 15:29 | Oncology Consultation ---
Date of Consultation December 15, 2023 Assessment & Plan (1) Multiple myeloma: at this point no hematological intervention is warranted as there is no evidence of relapse of myeloma. My recommendation would be to continued outpatient evaluation, follow-up and treatment. the rest of the medical management per our hospital internal medicine colleagues Plan . Hematology will continue to follow the patient make appropriate recommendations. Thank you for this interesting hematological consult. History of Present Illness Reason for Consultation: multiple myeloma Attending Physician: Hans Sherman MD History of Present Illness Diagnoses: 1. 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 Transitioned to monthly Daratumumab in . Prior Treatments: 1. He initially came to attention in February 2019 with an SPEP revealing an M- spike of 0.27 g/dL. Subsequent free light analysis revealed free lambda light chains of 1675 and a ratio of 0.01. 2. Bone marrow biopsy 03/26/19 revealed a hypercellular marrow with 5-10% lambda restricted plasma cells and a small population of CD5-positive B lymphocytes (1% of total lymphs by flow). Cytogenetics and FISH for myeloma markers were both normal. A stain for amyloid was negative but the specimen was suboptimal. 3. PET/CT 04/28/19 revealed no metabolically active bone lesions. 4. Repeat free light chains in July 2019 were ~2500 mg/L. Repeat bone marrow biopsy 10/11/19 revealed a mildly hypercellular marrow with 20% clonal plasma cells and a small CD5 positive monoclonal B cell population. FISH revealed duplication of 1q, 13q deletion, and monosomy 14. Repeat PET/CT 11/03/19 was again negative for FDG-avid disease. 5. He had adequate response following 8 cycles of DVd; transitioned to single agent Darzalex monthly in . 6. Pt. developed severe diarrhea, held Darzalex infusions starting in the patient is a very pleasant 83-year-old man who is being followed by my colleague Kristi Rae, for multiple myeloma has been admitted to [facility] with burning/dysuria, abdominal pain. Based on my last review of records from the cancer center the patient is still in remission from a myeloma standpoint. he was last evaluated in the oncology clinic in October 2017. He is being evaluated by urology colleagues while the patient is inpatient. Reports no fever or chill. No other active oncological issues Allergies Allergy/AdvReac Type Severity Reaction Status Date / Time COVID-19 vaccine, mRNA, AdvReac Unknown probable Verified 12/12/23 17:20 [id number], L reaction: [From [place] (PF)] throat swelling Home Medications Medication Instructions Recorded Confirmed Type allopurinol 300 mg tablet 300 mg PO QAM 04/30/18 12/12/23 History atorvastatin 10 mg tablet 5 mg PO QAM 04/30/18 12/12/23 History cholecalciferol (vitamin D3) 50 2,000 unit PO QAM 04/30/18 12/12/23 History mcg (2,000 unit) capsule (Vitamin D3) omeprazole 40 mg capsule,delayed 40 mg PO DAILY 04/30/18 12/12/23 History release terazosin 5 mg capsule 5 mg PO HS 04/30/18 12/12/23 History montelukast 10 mg tablet 10 mg PO QAM 05/07/21 12/12/23 History apixaban 2.5 mg tablet (Eliquis) 2.5 mg PO BID #60 tabs 07/13/21 12/12/23 Rx diphenoxylate-atropine 2.5 1 tab PO QID PRN Diarrhea 07/10/22 12/12/23 History mg-0.025 mg tablet magnesium oxide 400 mg PO BID #60 caps 12/01/22 12/12/23 Rx calcium carbonate 1,500 mg PO BID 01/23/23 12/12/23 History cyanocobalamin (vitamin B-12) 1,000 mcg PO DAILY 01/23/23 12/12/23 History 1,000 mcg tablet eplerenone 25 mg tablet 12.5 mg PO DAILY 01/23/23 12/12/23 History triamcinolone acetonide 0.1 % 1 applic topical BID PRN flare up 01/23/23 12/12/23 History topical cream acyclovir 400 mg tablet 400 mg PO BID 03/28/23 12/12/23 History albuterol sulfate 90 mcg/actuation 2 puff inhalation QID PRN 03/28/23 12/12/23 History aerosol inhaler Shortness Of Breath Or Wheezing potassium chloride 20 mEq 20 meq PO DAILY 10/10/23 12/12/23 History tablet,extended release hydralazine 25 mg tablet 25 mg PO TID 12/08/23 12/12/23 History levothyroxine 75 mcg tablet 75 mcg PO QAM 12/08/23 12/12/23 History metoprolol succinate 50 mg 50 mg PO BID 12/08/23 12/12/23 History tablet,extended release 24 hr torsemide 20 mg tablet 40 mg PO QAM 12/08/23 12/12/23 History Patient History Medical History Obesity Chronic diarrhea WORSENING...REASON FOR UPCOMING PROCEDURES Thyroid disease Anxiety and depression Multiple myeloma dx 4 yr ago...current chemo tx monthly SOB (shortness of breath) SOB ON EXERTION...CT scan done 1-1.5 mon ago [facility]...form of blood clot and fluid ? extent , some kind of scarring - f/u with lung specialist - appointment not yet made History of pulmonary embolism History of DVT (deep vein thrombosis) Diarrhea Thrombocytopenia Elevated troponin I level Hypoxia 2019 novel coronavirus-infected pneumonia (NCIP) ? 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 HX Prolonged QT interval ? HX GERD (gastroesophageal reflux disease) BPH without obstruction/lower urinary tract symptoms Carpal tunnel syndrome Gout hx Restless leg syndrome Surgical History History of cardiac cath ? 2009 - unable to verify - no known hx stent(s) History of revision of total knee arthroplasty ? side...d/t infection History of pacemaker jun 2021/? type/recent check unknown details History of thoracentesis July [address] Jeffries. No bacterial growth or malignancy Pleurx catheter placed July 2019. Removed September 2019 History of appendectomy Status post total hip replacement, left History of esophagogastroduodenoscopy (EGD) History of colonoscopy History of tooth extraction History of cataract surgery RT/LEFT History of total right hip arthroplasty H/O sinus surgery unknown History of bilateral knee arthroplasty Hx of cholecystectomy Family History Father Heart disease Mother Diabetes Hypertension Brother Family hx of colon cancer Brother Family hx of colon cancer Social History Smoking Status: Never smoker Second Hand Exposure: No; Do You Dip or Chew Tobacco: No; Hx Alcohol Use: No Hx Substance Use: No Preferred Language: Syriac Communication Ability: Effective Communication Ability Comment: PT DAUGHTER SHADY DAY, SIGNS CONSENTS (PT LIMITED COMPREHENSION) State Federal Relations Deputy Director Required: No Beliefs That Will Affect Care: None marital status: Current Living Situation: Spouse and Family Current Living Situation Comment: lives with and daughter How many Children do You have: 2 Feels Safe at Home: Yes Assistive Devices: Cane and CPAP Review of Systems Review of Systems: All systems reviewed & are unremarkable except as noted in HPI & below Constitutional: as per Subjective / HPI Eyes: as per Subjective / HPI Ear, Nose, Mouth, Throat: as per Subjective / HPI Respiratory: as per Subjective / HPI Cardiovascular: as per Subjective / HPI Gastrointestinal: as per Subjective / HPI Genitourinary: + as per Subjective / HPI Musculoskeletal: as per Subjective / HPI Integumentary: as per Subjective / HPI Neurologic: as per Subjective / HPI Psychiatric: as per Subjective / HPI Physical Exam Constitutional: WD/WN, vitals as above Eyes: PERRL, conjunctivae normal, anicteric sclerae ENMT: external ear and nose normal, oropharynx normal Neck: trachea midline, no thyromegaly Respiratory: normal respiratory effort, lungs clear to auscultation Cardiovascular: RRR, no murmur, no edema Gastrointestinal (Abdomen): normal bowel sounds, soft, nontender, no hepatosplenomegaly Musculoskeletal: no cyanosis or clubbing, extremities motor strength 5/5 Skin: no rashes, warm and dry Neurologic: patellar DTR's 2+ bilat, sensation intact Results & Data Vital Signs (Past 12 Hours) Vital Signs Temp Pulse Resp BP Pulse Ox O2 Del Method 12/15/23 12:06 37.2 C 74 16 122/75 90 Room Air 12/15/23 07:34 37.6 C H 61 16 137/77 93 BiPAP 12/15/23 04:08 37.2 C 75 20 106/67 94 Room Air (1) Multiple myeloma Multiple myeloma remission status: unspecified Qualified Code(s): C90.00 - Multiple myeloma not having achieved remission
[2023-12-15] MEDS: cefTRIAXone SODIUM 2,000 MG/50 ML BAG IV SCH (16:14)
[2023-12-15] MEDS: TERAZOSIN HCL 5 MG CAP PO SCH (20:28)
[2023-12-16] MEDS: oxyBUTYnin chloride 5 MG TAB PO PRN (05:08)
[2023-12-16 06:39] LABS: Hemoglobin 13.2 g/dl (14.0-18.0); Mean Corpuscular Hemoglobin 33.2 pg (25.0-34.0); Mean Corpuscular Hgb Conc 33.8 g/dL (32.0-36.0); Mean Corpuscular Volume 98.2 fL (80.0-100.0); Mean Platelet Volume 11.6 fL (9.4-12.4); Platelet Count 150 K/uL (130-400); RDW Coefficient of Variation 14.4 % (11.5-14.5); Red Blood Count 3.97 M/uL (4.70-6.10); White Blood Count 10.26 K/ul (4.8-10.8)
[2023-12-16 07:02] LABS: BUN Creatinine Ratio 17.1 (10-20); Calcium 8.1 mg/dl (8.6-10.3); Creatinine Clr Calc Pharmacy 36.4 ml/min; Est GFR (African American) 36.3 ml/min; Est GFR (Non-African American) 31.3 ml/min; Magnesium 1.9 mg/dl (1.7-2.4); Phosphorus 3.8 mg/dl (2.5-4.9); Potassium 3.7 mmol/L (3.5-5.1)
--- NOTE | 2023-12-16 13:16 | Urology Progress Note ---
Date of Service December 16, 2023 Assessment & Plan (1) Bladder calculi: (2) Chronic retention of urine: Plan - POD #2 s/p Cystolitholapaxy and Fulguration of Prostate with Dr. Kate - Afebrile and hemodynamically stable. - Labs reviewed - WBC 10.26, Hemoglobin 13.2, Creatinine 1.93. - Blood cultures 6/7 prelim no growth x 48 hours. On Ceftriaxone. - Briceno intact and draining appropriately. - No further intervention warranted. - Plan to maintain Briceno catheter for approximately 1 week. Will arrange catheter removal in the urology clinic. - Continue supportive care and pain management as needed. - Continue Oxybutynin PRN bladder spasms/pain - OK for discharge from standpoint when medically stable. - Would recommend d/c with short course of antibiotics. - Will arrange outpatient follow-up with our service. - Urology will follow peripherally. Please call with any further questions/concerns. Admission and Anticipated Discharge Date Admission Date: December 12, 2023 Subjective Pt seen at bedside today Awake, sitting in bedside chair on arrival No acute distress Briceno draining clear yellow urine He reports improvement in bladder spasms/dysuria Denies f/c/n/v Review of Systems Constitutional: as per Subjective / HPI Gastrointestinal: as per Subjective / HPI Genitourinary: + as per Subjective / HPI Physical Exam Constitutional: no acute distress Respiratory: no respiratory distress and no labored breathing Neurologic: moves all extremities and awake Psychiatric: A+Ox3, euthymic affect Genitourinary: Briceno intact Results & Data Vital Signs (Past 12 Hours) Vital Signs Temp Pulse Pulse Resp BP Pulse Ox O2 Del Method 12/16/23 11:33 36.7 C 81 18 114/67 94 Room Air 12/16/23 08:00 Room Air 12/16/23 07:34 36.8 C 63 18 116/66 93 Room Air 12/16/23 07:00 63 12/16/23 04:20 37.3 C 67 18 98/58 L 94 CPAP PG Care Time/CCT Total # of Minutes Spent Total Time Spent with Patient: Total time spent is greater than 50% in coordination of care (as documented) at patient's floor/unit and/or counseling patient: Coding Level of Care Code 55962 SUB INP/OBS CARE 2/35MIN Diagnoses Bladder calculi N21.0 Chronic retention of urine R33.9
[2023-12-16] MEDS: cefTRIAXone SODIUM 2,000 MG/50 ML BAG IV SCH (14:25)
--- NOTE | 2023-12-16 14:31 | Discharge Summary ---
Date of Service December 16, 2023 Admission HPI Per Admitting Provider 83 M w/ hx of Afib, diastolic CHF, NAHEED, CAD, CKD stage 3, multiple myeloma, hypothyroidism who presents with abdominal discomfort and altered mental status. Pt presented in ED few days ago, 12/08/23 with abdominal pain, CT abd. pelvis was obtained and c/w bladder stone, UA was negative and pt was eventually discharged home. He followed up with PCP on 12/09. Today he was sent from cancer center where he's been seen for MM, as he was not acting himself. CT head was obtained in the ED and negative for any acute changes. lab work unremarkable. Discussed with ED physician - and will repeat UA, obtain CXR, blood cultx, procalcitonin, as it's not clear what caused pt's mental status worsening. Pt's mental status seems much improved now, he is answering me appropriately. daughter also present at the bedside and provides history. Currently pt is laying in bed comfortably. Denies any fevers chills chest pain palpitations, shortness of breath. Says he only gets short of breath when he has abdominal pain. Per daughter and the patient, abdominal pain was much better yesterday, however today became worse again. Patient reports lower abdominal pain only. He is still able to eat and he is having bowel movements. Reports having loose stools, which has been chronic for him, no blood in the stool. He is not quite sure if the pain is associated with food or not, however this morning when he woke up he did did not seem to have a pain, and pain comes later possibly after food. Daughter is very concerned about managing his pain, as Tylenol was not controlling it, and patient was in tears occasionally because of the pain. Admission Exam Per Admitting Provider Constitutional: WD/WN, vitals as above Eyes: PERRL, conjunctivae normal, anicteric sclerae ENMT: external ear and nose normal, oropharynx normal Neck: + short neck (supple) Respiratory: normal respiratory effort, lungs clear to auscultation Cardiovascular: RRR, no murmur, no edema Chest (Breasts): Chest: normal inspection of chest Gastrointestinal (Abdomen): Inspection/Auscultation: abdomen normal to inspection (tender to palp. lower abd. quadrants/suprapubic) and normal bowel sounds Musculoskeletal: no cyanosis or clubbing, extremities motor strength 5/5 Skin: no rashes, warm and dry Neurologic: PERRL, EOMI, accommodation nl, no face palsy, no dysarthria Psychiatric: A+Ox3, euthymic affect Lymphatic: no lymphedema Principal Diagnosis Bladder stone, abd. pain, now s/p Cystolitholapaxy and Fulguration of Prostate Discharge Exam Constitutional: Obese elderly M in NAD Eyes: PERRL, EOMI, conjunctivae normal, anicteric sclerae ENMT: external ear and nose normal, oropharynx normal Neck: + short neck (supple) Respiratory: normal respiratory effort, lungs clear to auscultation Cardiovascular: RRR, no murmur, no edema Chest (Breasts): Chest: normal inspection of chest Gastrointestinal (Abdomen): soft, obese, nontender, + bowel sounds; Briceno placed drains blood tinged urine Musculoskeletal: movese extremities Skin: no rashes, warm and dry Neurologic: PERRL, EOMI, no face palsy, no dysarthria, moves extremities Psychiatric: A+Ox3, euthymic affect Lymphatic: no lymphedema Discharge Data Allergies Allergy/AdvReac Type Severity Reaction Status Date / Time COVID-19 vaccine, mRNA, AdvReac Unknown probable Verified 12/12/23 17:20 [id number], L reaction: [From Comirnaty (PF)] throat swelling Consultations 12/12/23 17:29 ED Decision to Admit Stat 12/12/23 17:52 Consult Urology Routine Procedures Performed Operation Date: 12/14/23 09:15 Actual Procedures p Cystolithopaxy and Fulguration of Prostate(Not Applicable) - Jorge Kate DO Ordered Studies 12/12/23 13:16 CT head/brain wo con Stat FINDINGS: No acute intracranial hemorrhage, midline shift, intracranial mass, hydrocephalus, territorial ischemia or abnormal extra-axial collection. Involutional changes with chronic microvascular ischemic disease. Cerebral vascular calcifications. Right suboccipital craniectomy. Postoperative changes of the paranasal sinuses. Prior bilateral lens repair. IMPRESSION: No acute intracranial abnormality. 12/12/23 17:38 US Renal Bladder [US renal/blad retro comp] Routine FINDINGS: Kidneys: The kidneys demonstrate mild cortical atrophy. Echotexture is normal. The right kidney measures 10.3 cm in length and the left kidney measures 11.2 cm in length. There is no hydronephrosis. No shadowing renal calculi are identified. There is no sonographic evidence of contour deforming renal mass lesion. No perinephric fluid is identified. Bladder: The bladder is largely decompressed and grossly unremarkable. There is a 12 mm bladder calculus. Ureteral jets were not seen. IMPRESSION: 1. The kidneys demonstrate mild cortical atrophy and are without hydronephrosis 2. The bladder is decompressed and grossly unremarkable. 3. A 12 mm bladder calculus is noted. 12/13/23 09:27 CT Abd and Pelvis [CT abd pelvis wo con] Urgent FINDINGS: Lung bases: The heart is mildly enlarged noting trace pericardial effusion. The coronary arteries are densely calcified. Pacemaker leads are in place. There is bibasilar scarring/atelectasis. Scattered calcified granulomas are observed. No airspace consolidation or pleural effusion is identified. There is a small hiatal hernia. Gynecomastia is noted. Liver: The unenhanced liver is normal in size, contour, and attenuation. There is no intrahepatic biliary ductal dilatation. Gallbladder: Surgically absent and clips in the gallbladder fossa. Spleen: Normal in size and attenuation. Pancreas: The unenhanced pancreas is moderately atrophic and grossly unremarkable. Adrenal glands: Unremarkable. Kidneys: The unenhanced kidneys are atrophic and without hydronephrosis. No renal calculi are identified and there is no ureteral stone. An 18 mm complex/hyperdense cyst is again seen in the left upper pole. Abdominal vasculature: The abdominal aorta is normal in course and caliber noting moderate atherosclerotic calcification. Bowel: There is no bowel obstruction. Postoperative changes seen at the ileocecal junction. The appendix is not identified and reported surgically absent. Peritoneum: There is no intraperitoneal free air or abdominal ascites. Lymphadenopathy: Mildly enlarged iliac chain nodes are unchanged from prior st udies. A right iliac chain on image #265 measures 14 mm in short axis. Pelvic viscera: Evaluation of the pelvis is significantly degraded by streak artifact from bilateral hip arthroplasties. The prostate gland is enlarged and heterogeneous. The bladder wall is thickened/trabeculated indicating chronic outlet obstruction. A 15 mm diverticulum is seen on the left. A 13 old or bladder calculus is again noted. Skeletal structures: The skeletal structures are osteopenic. There is moderate lumbosacral spondylosis. Sclerotic change is seen in the sacroiliac joints. No lytic or blastic lesions are seen. Bilateral hip arthroplasties are in place. IMPRESSION: 1. No acute infectious or inflammatory findings are identified in the abdomen or pelvis. 2. Prostatomegaly with evidence of chronic bladder outlet obstruction. 3. A bladder calculus is again noted. This stone is mobile, as is located on the opposite side of the bladder from the 12/08/2023 examination. 4. Cardiomegaly. 5. Additional findings as above. Hospital Course (1) Confusion: (2) Abdominal pain: - unclear cause of pt's mental status change - CT head negative - mental status now much improved/ seems back to baseline - received IVF in the ED ? infectious etiology - pt afebrile, and WBC not elevated - UA- negative, CXR- mild congestive change, no sign of pna, blood cultx - pending, procalcitonin- negative Abdominla pain CT abd./pelvis obtained on 12/07 c/w bladder stone, UA negative at that time - continues to have pain in lower abd. quadrants/suprapubic - per daughter, [place] [facility] [place]. Burnette in the past, but not aware of any renal stones - current UA negative - obtained renal US - 1. The kidneys demonstrate mild cortical atrophy and are without hydronephrosis 2. The bladder is decompressed and grossly unremarkable. 3. A 12 mm bladder calculus is noted. - Urology consulted 12/12 Pt cont. w/ abd. pain - discussed w/ urology and CT abd. pelvis repeated - 1. No acute infectious or inflammatory findings are identified in the abdomen or pelvis. 2. Prostatomegaly with evidence of chronic bladder outlet obstruction. 3. A bladder calculus is again noted. This stone is mobile, as is located on the opposite side of the bladder from the 12/08/2023 examination. - cont. pain control w/ tylenol and oxycodone prn 12/13 + severe suprapubic pain overnight (4AM) - discussed w/ urology - likely plan to remove the bladder stone, to see if this will eliminate the pain. 12/14 pt is s/p p Cystolithopaxy and Fulguration of Prostate(Not Applicable) - Jorge Kate, (12/14/23) Abdominal pain seems to be resolved. Pt has Briceno placed w/ blood tinged urine, reports some burning/ dysuria. Discussed w/ urology - will start oxybutinin and emp. abx 12/15 urine in Briceno clearing up and symptoms controlled - plan to DC with urology follow up within 1 week. plan to DC on oxybutinin and emp. abx. Also updated pt's daughter over the phone. (3) Atrial fibrillation: also hx of deborah-tachy syndrome s/p pacer - [facility] - on eliquis and metoprolol, resume eliquis - monitor on tele Hx of diastolic CHF - seems euvolemic - some mild vasc. congestion CXR - breathing comfortably on RA - pro-BNP wnl - gave one dose of torsemide, then on hold - can resume on DC hx of CAD - cont. home cardiac meds (4) CKD (chronic kidney disease), stage III: - baseline Cr lately 1.7-2.3 - current 1.9 - cont. to monitor - try to avoid nephrotoxic agents Hypothyroidism - cont. home levothyroxine - current TSH 3.4 wnl MM - follows w/ a local cancer center (5) Obstructive sleep apnea on CPAP: - CPAP HS Total Time Total Time Spent Total Time Spent (In Minutes): 40 Discharge Plan Discharge Items Patient Disposition: Home - Self-Care Reason For Visit: AMS, ABD PAIN Discharge Diagnosis: Bladder stone, abd. pain, now s/p Cystolitholapaxy and Fulguration of Prostate with Dr. Kate Condition on Discharge: Fair Activity: Per Instructions section Non-emergency contact: Primary Care Provider and Urologist Call non-emergency contact if: you have any medication questions and your symptoms worsen Follow-up/Referrals: Jorge Kate DO [Physician] - 01/14/24 3:45 pm () Telma Jacobs CRNP [Primary Care Provider] - (Date & Time 12/19/2023 2:20 PM Provider Telma Jacobs CRNP Department [facility] ) [facility],Nurse [FAKE FOR SCHEDULES] - 12/22/23 9:00 am Diet: Heart Healthy and Low Fiber Addtl Attending Provider Instructions: Follow up with primary care physician and urologist. Finish antibiotic treatment as prescribed. Take oxybutynin for bladder spasms. Plan to maintain Briceno until seen by urology (about 1 week). For pain, you can take tylenol 1,000 mg up to 3 times a day and for more severe pain you can take oxycodone, as needed as prescribed. Addtl Unit Control Clerk Provider Instructions: Please call the urology office at [phone] with any questions, concerns or need to reschedule appointments for any reason. We are happy to assist you You are scheduled in the urology office for catheter removal on 12/22/2023 at 9:00AM. You are scheduled for follow-up with Dr. Kate on 01/14/2024 at 3:45 PM. Briceno Catheter care: Keep the catheter well secured with either a leg back or leg strap with large bag. Empty your bag when it's about half full. You may notice some blood in the bag. This is normal after surgery and while the catheter is in place. Use mild soap (such as Dove or Dial) and water to wash the catheter and the head of your penis daily, or more frequently if needed. You may shower as normal. Please avoid tub baths or soaking until catheter removed. Call [facility] at [phone] if you have any of the following: Heavy bleeding, clots, or bright red blood from the catheter Catheter that falls out or stops draining Foul-smelling discharge from your catheter Severe pain not controlled with medication Pending Studies at Discharge: Yes Studies:: final blood cultx results Stand-Alone Forms: My [facility] [employer] Takeoff, Smoking Cessation Medications and DC Order Prescriptions: New oxybutynin chloride 5 mg Tablet 5 mg PO BID PRN (Reason: bladder spasms) Qty: 20 0RF ciprofloxacin HCl 500 mg tablet 500 mg PO BID 3 Days Qty: 6 0RF oxycodone 5 mg Tablet 5 mg PO Q6H PRN (Reason: pain) Qty: 5 0RF Continued albuterol sulfate 90 mcg/actuation HFA aerosol inhaler 2 puff inhalation QID PRN (Reason: Shortness Of Breath Or Wheezing) Rx Instructions: Unable to verify medication at this date/time acyclovir 400 mg tablet 400 mg PO BID terazosin 5 mg Capsule 5 mg PO HS atorvastatin 10 mg Tablet 5 mg PO QAM Rx Instructions: TAKE HALF A TABLET DAILY omeprazole 40 mg Capsule,Delayed Release(Dr/Ec) 40 mg PO DAILY allopurinol 300 mg Tablet 300 mg PO QAM cholecalciferol (vitamin D3) [Vitamin D3] 2,000 unit Capsule 2,000 unit PO QAM Rx Instructions: Unable to verify OTC meds at this date/time. magnesium oxide 400 mg magnesium capsule 400 mg PO BID Qty: 60 0RF Rx Instructions: Unable to verify OTC meds at this date/time. potassium chloride 20 mEq tablet extended release 20 meq PO DAILY cyanocobalamin (vitamin B-12) 1,000 mcg Tablet 1,000 mcg PO DAILY Rx Instructions: Unable to verify OTC meds at this date/time. triamcinolone acetonide 0.1 % cream 1 applic TOPICAL BID PRN (Reason: flare up) calcium carbonate 600 mg calcium (1,500 mg) tablet 1,500 mg PO BID Rx Instructions: Unable to verify OTC meds at this date/time. montelukast 10 mg tablet 10 mg PO QAM Eliquis 2.5 mg Tablet 2.5 mg PO BID Qty: 60 0RF diphenoxylate-atropine 2.5-0.025 mg Tablet 1 tab PO QID PRN (Reason: Diarrhea) torsemide 20 mg tablet 40 mg PO QAM metoprolol succinate 50 mg tablet extended release 24 hr 50 mg PO BID levothyroxine 75 mcg tablet 75 mcg PO QAM Held eplerenone 25 mg Tablet 12.5 mg PO DAILY Hold Instructions: Resume on 12/19/23. hydralazine 25 mg tablet 25 mg PO TID Hold Instructions: Resume on 12/19/23. Discharge Orders: Discharge Order (Routine); Ordered 12/16/23 Ordered By: Hans Sherman Admission Data Admit Date/Time: 12/12/23 17:52 Attending Provider: Hans Sherman Admit Provider: Hans Sherman Primary Care Provider: Telma Jacobs Other Providers: Hans Sherman; Garcia Dent; Yoan Barreto Christopher T.; Shannon Augustine; Jorge Kate; Martha Childers; Suzie Drake; Saman Mayberry; Kelly Leiva; Shakir Fernández; Abel Dueñas; Jason Magaña.
== END 2023-12-16 16:14 | disposition home or self-care (01) | DRG 665 ==
LOC: ED 13:05 → 2N 17:52
DX: R41.82 Altered mental status, unspecified; N21.0 Calculus in bladder; Z88.7 Allergy status to serum and vaccine; Z86.16 Personal history of COVID-19; I25.10 Atherosclerotic heart disease of native coronary artery without angina pectoris; Z86.711 Personal history of pulmonary embolism; I50.33 Acute on chronic diastolic (congestive) heart failure; I13.0 Hypertensive heart and chronic kidney disease with heart failure and stage 1 through stage 4 chronic kidney disease, or unspecified chronic kidney disease; R33.8 Other retention of urine; C90.01 Multiple myeloma in remission; I48.91 Unspecified atrial fibrillation; I49.5 Sick sinus syndrome; Z95.0 Presence of cardiac pacemaker; N18.30 Chronic kidney disease, stage 3 unspecified; N32.3 Diverticulum of bladder; E03.9 Hypothyroidism, unspecified; G47.33 Obstructive sleep apnea (adult) (pediatric); Z79.890 Hormone replacement therapy; N40.1 Benign prostatic hyperplasia with lower urinary tract symptoms; Z83.3 Family history of diabetes mellitus; Z86.718 Personal history of other venous thrombosis and embolism

== ENCOUNTER 2023-12-29 10:05 | Inpatient (IN) ==
[2023-12-29 11:12] LABS: Alanine Aminotransferase 7 U/L (7-52); Albumin Level 3.8 gm/dl (3.4-5.0); Alkaline Phosphatase 66 U/L (34-104); Anion Gap 7 (3-11); Aspartate Aminotransferase 17 U/L (13-39); BUN Creatinine Ratio 9.9 (10-20); Bilirubin,Total 0.9 mg/dl (0.2-1.0); Blood Urea Nitrogen 16 mg/dl (6-23); Calcium 8.3 mg/dl (8.6-10.3); Carbon Dioxide 30 mmol/L (21-32); Chloride 103 mmol/L (98-107); Est GFR (African American) 44.8 ml/min; Est GFR (Non-African American) 38.7 ml/min; Glucose 126 mg/dl (70-99(Fasting)); Magnesium 1.9 mg/dl (1.7-2.4); Potassium 4.1 mmol/L (3.5-5.1); Sodium 140 mmol/L (136-145)
[2023-12-29 11:17] LABS: Troponin I High Sensitivity 9.7 pg/ml (0-20)
[2023-12-29 11:21] LABS: Partial Thromboplastin Time 26 Seconds (21-31); Prothrombin Time 10.8 Seconds (9.0-12.0)
[2023-12-29 11:24] LABS: Albumin Globulin Ratio 1.6 (0.9-2); Globulin 2.4 gm/dl (2.5-4.0); Total Protein 6.2 gm/dl (6.0-8.3)
[2023-12-29 11:26] LABS: Thyroid Stimulating Hormone 6.849 uIu/ml (0.300-4.500)
[2023-12-29 11:27] LABS: Appearance Urine Clear (Clear); Bacteria Urine Automated None Seen (None Seen); Bilirubin Urine Negative (Negative); Blood Urine 1+ (Negative); Cast Urine Automated 0-2 /lpf (0-2); Color Urine Yellow; Epithelial Cell Urine Auto 0-2 /hpf (0-2); Glucose Urine UA Negative (Negative); Ketones Urine Negative (Negative); Leukocyte Esterase Urine 3+ (Negative); Nitrite Urine Negative (Negative); Protein Urine Negative (Negative); Specific Gravity Urine 1.007 (1.000-1.030); Urobilinogen Urine Negative (Negative); WBC Urine Automated 21-50 /hpf (0-5)
--- NOTE | 2023-12-29 11:35 | XRay Report ---
XR chest 1V portable CLINICAL HISTORY: Weakness COMPARISON STUDY: Chest CT May 14, 2022. Chest radiograph December 12, 2023. FINDINGS: Left subclavian pacer is in place. Elevation of the right hemidiaphragm is unchanged. Cardi omegaly is unchanged. There is no evidence for pulmonary edema. There is no pneumothorax or pleural e ffusion. There is no consolidation to suggest pneumonia. IMPRESSION: No acute cardiopulmonary findings. ACT 112: Negative or not required by law. Electronically signed by: Kyler Lim M.D. 12/29/2023 11:33 AM
[2023-12-29 11:40] LABS: Hematocrit (blood only) 40.5 % (42.0-52.0); Hemoglobin 13.9 g/dl (14.0-18.0); Mean Corpuscular Hemoglobin 32.9 pg (25.0-34.0); Mean Corpuscular Hgb Conc 34.3 g/dL (32.0-36.0); Mean Platelet Volume 11.1 fL (9.4-12.4); Platelet Count 204 K/uL (130-400); RDW Coefficient of Variation 14.2 % (11.5-14.5); RDW Standard Deviation 50.1 fL (36.4-46.3); Red Blood Count 4.22 M/uL (4.70-6.10); White Blood Count 10.91 K/ul (4.8-10.8)
--- NOTE | 2023-12-29 12:16 | Emergency Department Note ---
Impression & Plan UTI (urinary tract infection), Acute delirium ED Provider Note NAME: VANESSA CURTIS AGE: 83 SEX: M : 1940 ARRIVES VIA: Ambulance INFORMANT: Patient, ED PROVIDER(S): Levon Dodge MD CHIEF COMPLAINT: Confusion HPI: This is an 83-year-old male presenting for confusion. Patient has had a recent visit to the emergency department. He had recent bladder stones, proceeded to break his bladder. And a catheter was placed. He was able to void and then required a catheter the next day. His family states that otherwise this morning he was completely normal and around 5 in the morning. Then at 740 he was also acting normal upon a call and then later on in the day around 8:40 AM patient was acting confused, stating he was sick, phone call and hung up the phone. His then checked on him and cooperated that he was fairly confused and not his usual baseline. His daughter and son are with him at bedside who state that he is not acting himself. Currently he complains of a dry throat but otherwise no significant abnormalities. He mention earlier that he had some pain in his abdomen but does not have any pain at this time. ROS: See above HPI for pertinent positives & negatives. A total of 10 systems reviewed and were otherwise negative. PHYSICAL EXAMINATION: General: resting comfortably in no acute distress Head: Normocephalic and atraumatic Eyes: Normal inspection, extraocular muscles intact Ear, nose, throat: Normal external exam Neck: Normal range of motion Respiratory: lungs clear to auscultation bilaterally Cardiovascular: Regular rate/rhythm, no murmur GI: soft, nontender, no guarding or rebound Extremities: nontender, moves all extremities Neuro: The patient awake and alert, appropriately conversive, no focal deficits, symmetric faces Skin: Warm, dry, and intact MEDICAL DECISION MAKING: This is an 83-year-old male senting for confusion. Patient is somewhat slow to respond but does appropriately respond to my questioning. Sounds like patient is having some underlying delirium on top of dementia. Consider UTI, infection, pneumonia, intracranial process. Patient is now Briceno dependent making more likely for UTI. -Patient blood work is reviewed showing WBC count of 10.91, hemoglobin 13.9. Electrolytes within normal limits. Creatinine 1.62. Urinalysis does show signs of new UTI with 3+ leuk esterase plus WBC -Due to this, likely explains his symptoms with UTI. Will give ceftriaxone and admit for encephalopathy secondary to UTI -[facility] Differential diagnosis: See above ER treatment provided: See below Diagnostics interpreted by me: ECG: ECG independently interpreted by me with ventricular paced rhythm, rate of 109, intraventricular conduction delay, prolonged QTc, no ST segment elevations consistent with STEMI criteria Cardiac Monitoring: An order was placed for continuous cardiac monitoring. The monitor shows a rate of 78 with ventricularly paced rhythm. Laboratory studies: As stated above and show below. Imaging studies: See below. Past Med/Surg History Problem List (Updated 12/29/23 @ 18:51 by Levon Dodge MD) Acute delirium (Acute) Altered mental status Briceno catheter in place (Acute) Abdominal pain, lower (Acute) Acute urinary retention (Acute) Chronic retention of urine Multiple myeloma (Acute) Bladder calculi (Acute) Lower abdominal pain (Acute) Confusion (Acute) Cardiac pacemaker in situ Breathlessness (Acute) Abdominal pain (Acute) Nausea (Acute) Confusion Acute on chronic diastolic heart failure with preserved ejection fraction Hypoxia (Acute) LBBB (left bundle branch block) ? HX Obstructive sleep apnea on CPAP Monoclonal paraproteinemia CKD (chronic kidney disease), stage III Hypertension Hypomagnesemia Exertional shortness of breath Atrial fibrillation with rapid ventricular response (Acute) Anemia Encounter for pre-operative examination Insomnia (Chronic) Major depression (Chronic) Osteoarthrosis (Chronic) ASCVD (arteriosclerotic cardiovascular disease) (Chronic) cardiac cath 2009 - non obstructive disease H/O knee surgery History of hip surgery BPH (benign prostatic hyperplasia) Atrial fibrillation Monoclonal B-cell lymphocytosis Pericardial effusion Pleural effusion, left History of pulmonary embolism Acute on chronic diastolic CHF (congestive heart failure) Anemia (Acute) UTI (urinary tract infection) (Acute) Pneumonia due to COVID-19 virus Respiratory failure with hypoxia Dysphagia DVT prophylaxis Morbid (severe) obesity due to excess calories Medical History Obesity Chronic diarrhea WORSENING...REASON FOR UPCOMING PROCEDURES Thyroid disease Anxiety and depression Multiple myeloma dx 4 yr ago...current chemo tx monthly SOB (shortness of breath) SOB ON EXERTION...CT scan done 1-1.5 mon ago [facility]...form of blood clot and fluid ? extent , some kind of scarring - f/u with lung specialist - appointment not yet made History of pulmonary embolism History of DVT (deep vein thrombosis) Diarrhea Thrombocytopenia Elevated troponin I level Hypoxia 2018 novel coronavirus-infected pneumonia (NCIP) ? 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 HX Prolonged QT interval ? HX GERD (gastroesophageal reflux disease) BPH without obstruction/lower urinary tract symptoms Carpal tunnel syndrome Gout hx Restless leg syndrome Surgical History History of cardiac cath ? 2009 - unable to verify - no known hx stent(s) History of revision of total knee arthroplasty ? side...d/t infection History of pacemaker jun 2021/? type/recent check unknown details History of thoracentesis July [address] Jeffries. No bacterial growth or malignancy Pleurx catheter placed July 2019. Removed September 2019 History of appendectomy Status post total hip replacement, left History of esophagogastroduodenoscopy (EGD) History of colonoscopy History of tooth extraction History of cataract surgery RT/LEFT History of total right hip arthroplasty H/O sinus surgery unknown History of bilateral knee arthroplasty Hx of cholecystectomy Family History Father Heart disease Mother Diabetes Hypertension Brother Family hx of colon cancer Brother Family hx of colon cancer Social History Smoking Status: Unknown if ever smoked Second Hand Exposure: No; Do You Dip or Chew Tobacco: No; Hx Alcohol Use: No Hx Substance Use: No Preferred Language: [place] Communication Ability: Effective Communication Ability Comment: PT DAUGHTER SHADY DAY, SIGNS CONSENTS (PT LIMITED COMPREHENSION) Route Deliverer Required: No Beliefs That Will Affect Care: None marital status: Current Living Situation: Spouse and Family Current Living Situation Comment: lives with and daughter How many Children do You have: 2 Feels Safe at Home: Yes Assistive Devices: Cane and CPAP Allergies Allergies Allergy/AdvReac Type Severity Reaction Status Date / Time COVID-19 vaccine, mRNA, AdvReac Unknown probable Verified 12/27/23 20:42 [id number], L reaction: [From [facility] ([facility])] throat swelling Home Meds Home Medications Medication Instructions Recorded Confirmed allopurinol 300 mg tablet 300 mg PO QAM 04/30/18 12/29/23 atorvastatin 10 mg tablet 5 mg PO QAM 04/30/18 12/29/23 cholecalciferol (vitamin D3) 50 2,000 unit PO QAM 04/30/18 12/29/23 mcg (2,000 unit) capsule (Vitamin D3) omeprazole 40 mg capsule,delayed 40 mg PO DAILY 04/30/18 12/29/23 release terazosin 5 mg capsule 5 mg PO HS 04/30/18 12/29/23 montelukast 10 mg tablet 10 mg PO QAM 05/07/21 12/29/23 diphenoxylate-atropine 2.5 1 tab PO QID PRN Diarrhea 07/10/22 12/29/23 mg-0.025 mg tablet calcium carbonate 1,500 mg PO BID 01/23/23 12/29/23 cyanocobalamin (vitamin B-12) 1,000 mcg PO DAILY 01/23/23 12/29/23 1,000 mcg tablet eplerenone 25 mg tablet 12.5 mg PO .HOLD 01/23/23 12/29/23 triamcinolone acetonide 0.1 % 1 applic topical BID PRN flare up 01/23/23 12/29/23 topical cream acyclovir 400 mg tablet 400 mg PO BID 03/28/23 12/29/23 albuterol sulfate 90 mcg/actuation 2 puff inhalation QID PRN 03/28/23 12/29/23 aerosol inhaler Shortness Of Breath Or Wheezing potassium chloride 20 mEq 20 meq PO DAILY 10/10/23 12/29/23 tablet,extended release hydralazine 25 mg tablet 25 mg PO .HOLD 12/08/23 12/29/23 levothyroxine 75 mcg tablet 75 mcg PO QAM 12/08/23 12/29/23 metoprolol succinate 50 mg 50 mg PO BID 12/08/23 12/29/23 tablet,extended release 24 hr torsemide 20 mg tablet 40 mg PO QAM 12/08/23 12/29/23 nystatin 100,000 unit/mL oral 5 ml PO QID 12/29/23 12/29/23 suspension Previous Rx's Medication Instructions Recorded apixaban 2.5 mg tablet (Eliquis) 2.5 mg PO BID #60 tabs 07/13/21 magnesium oxide 400 mg PO BID #60 caps 12/01/22 oxybutynin chloride 5 mg tablet 5 mg PO BID PRN bladder spasms #20 12/16/23 tabs Results & Data (ED) Vital Signs Vital Signs - 24 hr 12/29/23 10:15 12/29/23 10:31 12/29/23 12:01 Temperature 36.6 C Temperature Source Rectal Pulse Rate 108 H 69 Pulse Rate [Apical] 74 Pulse Rhythm Regular Pulse Strength Normal Respiratory Rate 12 20 Respiratory Effort / Characteristics Non-Labored Spontaneous Respiratory Depth Normal Respiratory Pattern Regular Blood Pressure 134/83 Blood Pressure [Right Arm] 146/83 H Blood Pressure Mean 100 Blood Pressure Mean [Right Arm] 104 Blood Pressure Position Lying Pulse Oximetry 95 95 Oxygen Delivery Method Room Air Room Air Sepsis Recent Fever Within 48 Hours No Sepsis New/Unexplained Change in Mental Status No Sepsis Action Taken by Nursing No Action Required 12/29/23 12:44 12/29/23 12:44 Temperature Temperature Source Pulse Rate 78 Pulse Rate [Apical] Pulse Rhythm Regular Pulse Strength Respiratory Rate 18 Respiratory Effort / Characteristics Respiratory Depth Respiratory Pattern Blood Pressure Blood Pressure [Right Arm] Blood Pressure Mean Blood Pressure Mean [Right Arm] Blood Pressure Position Pulse Oximetry 94 94 Oxygen Delivery Method Room Air Room Air Sepsis Recent Fever Within 48 Hours Sepsis New/Unexplained Change in Mental Status Sepsis Action Taken by Nursing Laboratory Data 12/29/23 10:33 12/29/23 10:33 Lab Results 12/29/23 12/29/23 12/29/23 Range/Units 10:20 10:33 12:50 WBC 10.91 H (4.8-10.8) K/ul RBC 4.22 L (4.70-6.10) M/uL Hgb 13.9 L (14.0-18.0) g/dl Hct 40.5 L (42.0-52.0) % MCV 96.0 (80.0-100.0) fL MCH 32.9 (25.0-34.0) pg MCHC 34.3 (32.0-36.0) g/dL RDW Std Deviation 50.1 H (36.4-46.3) fL RDW Coeff of [place] 14.2 (11.5-14.5) % Plt Count 204 (130-400) K/uL MPV 11.1 (9.4-12.4) fL Immature Gran % (Auto) 0.4 % Neut % (Auto) 74.7 % Lymph % (Auto) 12.1 % [place] % (Auto) 7.4 % Eos % (Auto) 4.9 % Baso % (Auto) 0.5 % Neut # (Auto) 8.13 H (1.40-6.50) K/uL Lymph # (Auto) 1.32 (1.20-3.40) K/uL [place] # (Auto) 0.80 H (0.11-0.59) K/uL Eos # (Auto) 0.53 H (0.00-0.50) K/uL Baso # (Auto) 0.05 (0.00-0.20) K/uL Immature Gran # (Auto) 0.04 (0.01-0.20) K/uL PT 10.8 (9.0-12.0) Seconds INR 1.0 (0.9-1.1) APTT 26 (21-31) Seconds PTT Ratio 1.0 Sodium 140 (136-145) mmol/L Potassium 4.1 (3.5-5.1) mmol/L Chloride 103 (98-107) mmol/L Carbon Dioxide 30 (21-32) mmol/L Anion Gap 7 (3-11) BUN 16 (6-23) mg/dl Creatinine 1.62 H (0.6-1.4) mg/dl Est Cr Clr Drug Dosing Not Reportable Est GFR ( Amer) 44.8 ml/min Est GFR (Non-Af Amer) 38.7 ml/min BUN/Creatinine Ratio 9.9 L (10-20) Glucose 126 H (70-99(Fasting)) mg/dl POC Glucose 112 H (70-99) mg/dl Calcium 8.3 L (8.6-10.3) mg/dl Magnesium 1.9 (1.7-2.4) mg/dl Total Bilirubin 0.9 (0.2-1.0) mg/dl AST 17 (13-39) U/L ALT 7 (7-52) U/L Alkaline Phosphatase 66 (34-104) U/L Troponin I High Sens 9.7 (0-20) pg/ml Total Protein 6.2 (6.0-8.3) gm/dl Albumin 3.8 (3.4-5.0) gm/dl Globulin 2.4 L (2.5-4.0) gm/dl Albumin/Globulin Ratio 1.6 (0.9-2) TSH 6.849 H (0.300-4.500) uIu/ml Free T4 1.18 (0.61-1.60) ng/dl Urine Color Yellow Urine Appearance Clear (Clear) Urine pH 5.0 (4.5-7.5) Ur Specific [place] 1.007 (1.000-1.030) Urine Protein Negative (Negative) Urine Glucose (UA) Negative (Negative) Urine Ketones Negative (Negative) Urine Blood 1+ H (Negative) Urine Nitrite Negative (Negative) Urine Bilirubin Negative (Negative) Urine Urobilinogen Negative (Negative) Ur Leukocyte Esterase 3+ H (Negative) Urine WBC (Auto) 21-50 H (0-5) /hpf Urine RBC (Auto) 3-5 H (0-2) /hpf U Hyaline Cast (Auto) 0-2 (0-2) /lpf U Epithel Cells (Auto) 0-2 (0-2) /hpf Urine Bacteria (Auto) None Seen (None Seen) Administered Medications Discontinued Medications Ceftriaxone Sodium (Rocephin) 2,000 mg in 50 mls @ 100 mls/hr IV NOW STA Stop: 12/29/23 12:40 Last Infusion: 12/29/23 13:39 Dose: Infused Documented By: Admin: 12/29/23 12:46 Dose: 100 mls/hr Documented By: TESSA Imaging Data Radiologist's Impression: Chest X-Ray 12/29/23 10:31 XR chest 1V portable CLINICAL HISTORY: Weakness COMPARISON STUDY: Chest CT May 14, 2022. Chest radiograph December 12, 2023. FINDINGS: Left subclavian pacer is in place. Elevation of the right hemidiaphragm is unchanged. Cardiomegaly is unchanged. There is no evidence for pulmonary edema. There is no pneumothorax or pleural effusion. There is no consolidation to suggest pneumonia. IMPRESSION: No acute cardiopulmonary findings. ACT 112: Negative or not required by law. Electronically signed by: Kyler Lim M.D. 12/29/2023 11:33 AM Discharge Plan Visit Data Chief Complaint: Altered Mental Status ED Provider: Levon Dodge Discharge Problem: UTI (urinary tract infection), Acute delirium
[2023-12-29] MEDS: cefTRIAXone SODIUM 2,000 MG/50 ML BAG IV STA (12:46)
[2023-12-29 13:01] LABS: Basophils # (auto) 0.05 K/uL (0.00-0.20); Basophils % (auto) 0.5 %; Eosinophils # (auto) 0.53 K/uL (0.00-0.50); Eosinophils % (auto) 4.9 %; Immature Granulocytes # (auto) 0.04 K/uL (0.01-0.20); Immature Granulocytes % (auto) 0.4 %; Lymphocytes # (auto) 1.32 K/uL (1.20-3.40); Lymphocytes % (auto) 12.1 %; Monocytes % (auto) 7.4 %; Neutrophils # (auto) 8.13 K/uL (1.40-6.50); Neutrophils % (auto) 74.7 %
--- NOTE | 2023-12-29 13:01 | History & Physical Report ---
Date of Service December 29, 2023 Assessment & Plan (1) Altered mental status: (2) Chronic retention of urine: (3) UTI (urinary tract infection): (4) Fowler catheter in place: (5) CKD (chronic kidney disease), stage III: (6) Obstructive sleep apnea on CPAP: (7) Chronic diastolic CHF (congestive heart failure): (8) CAD (coronary artery disease): (9) Prolonged QT interval: (10) Atrial fibrillation: Plan This is an 83 y/o M with PMH PAF anticoagulated on Eliquis, chronic diastolic CHF, CAD, chronic LBBB, TBS s/p PPM, hx of PE, Hx of multiple myeloma, HTN, CKD III, BPH, depression, hypothyroidism, NAHEED, hx of PE, presented to ER 2/2 altered mental status. Altered Mental Status ? if in setting of CAUTI vs delirium in setting of poor sleep habits on dementia CA - Complicated UTI Fowler in place/Chronic retention Admit to med tele He is s/p Cystolithopaxy and fulguration of prostate on 12/[address] Kate Fowler cath placed, removed 12/21, reinserted 12/26 due to retention mild leukocytosis, UA with leukocytes mental status appears to be transient, as he appears improved on my eval will treat for possible UTI, obtain blood cultures and await urine culture Obtain CT head, US of carotids and tele monitor to eval for TIA pt reports poor sleep/lack there of the night before ? if delirium in setting of dementia pt will need close urology follow up CAD hx of Diastolic CHF HTN HLD chronic, stable euvolemic, daily weights, strict I and O continue torsemide, eplernone, metoprolol, statin, hydralazine last echo 2020 EF 54% PAF hx of TBS s/p PPM Prolonged QTC - avoid qTC prolonging meds continue metoprolol and eliquis CKD-3 chronic, stable baseline cr 1.7-1.8 bun/cr stable, avoid nephrotoxic agents follows [facility] neph[facility] Thrush dx as outpt, improving complete course of nystatin Hypothyroidism chronic, stable TSH elevate at 6.84, will repeat tsh will obtain t4 continue levothyroxine NAHEED CPAP at HS MM follows w/ local cancer center DVT ppx: Eliquis FULL CODE PCP: Telma Jacobs Dispo: admit to med tele, IV antibiotics, await culture, PT/OT consults Pt was seen and examined in collaboration with Dr. Samson, please see addendum A total of 76 minutes was spent coordinating, documenting, and providing care for this patient excluding time spent in the performance of separately billed services. This included personally viewing all current laboratories and imaging studies, medication reconciliation, outpatient chart review, and discussion with specialists. History of Present Illness Chief Complaint: he felt confused and sick in the stomach for 1.5 days. Primary Care Provider: ASHER Eddy This is an 83 y/o M with PMH PAF anticoagulated on Eliquis, chronic diastolic CHF, CAD, chronic LBBB, TBS s/p PPM, hx of PE, Hx of multiple myeloma, HTN, CKD III, BPH, depression, hypothyroidism, NAHEED, hx of PE, & Dementia presented to ER 2/2 altered mental status. Of significance patient was recently hospitalized on 12/11 to 12/15 secondary to altered mental status and abdominal pain. CT scan of abdomen pelvis revealed a bladder stone resulting in a cystolitholopaxy with fulguration of prostate. He was discharged with a Fowler catheter in place and started on oxybutynin and completed a course of ciprofloxacin. There is no clear source of patient's altered mental status although it did eventually resolve. He was discharged home. His outpatient records were reviewed. He was seen in clinic on 12/18 for hospital follow-up. He was seen again on 12/25 secondary to sore throat. This was felt to be secondary to thrush and he was started on nystatin. His strep screen was negative. Family reported symptoms of, "zoning out." His hydroxyzine was stopped. He had a urine culture obtained which resulted in no significant growth. 12/22/23 and had his Fowler removed. He initially did well but then was having difficulty urinating. He states he did not get any sleep last night. This morning he felt, " in another world." When he woke up he had pain in his stomach and he had dizziness. "I just didn't feel well." The abd pain started yesterday. He denies flank pain. He was in ED a few days ago due to abdominal pain. He had a CT scan that showed his fowler cath and large bladder stone was removed. There was no acute abnormalities. He denies any f/c/s, chest pain, sob, cough, uri sx, n/v. He had 2 episodes of loose stool yesterday. He has not had anything to eat yet today. His appetite has been normal. He took his morning medications. Son is at bedside who also helps elicit history. Pt lives with his daughter. He was fine this morning before she went to work. He called 30 minutes after she got to work stating he didn't feel good and daughter felt he was confused. Pt states similar sx in past associated with infection. His daughter helps him with his medications. He walks with a walker and denies fall. Allergies Allergy/AdvReac Type Severity Reaction Status Date / Time COVID-19 vaccine, mRNA, AdvReac Unknown probable Verified 12/27/23 20:42 [id number], L reaction: [From [place] ()] throat swelling Home Medications Medication Instructions Recorded Confirmed Type allopurinol 300 mg tablet 300 mg PO QAM 04/30/18 12/29/23 History atorvastatin 10 mg tablet 5 mg PO QAM 04/30/18 12/29/23 History cholecalciferol (vitamin D3) 50 2,000 unit PO QAM 04/30/18 12/29/23 History mcg (2,000 unit) capsule (Vitamin D3) omeprazole 40 mg capsule,delayed 40 mg PO DAILY 04/30/18 12/29/23 History release terazosin 5 mg capsule 5 mg PO HS 04/30/18 12/29/23 History montelukast 10 mg tablet 10 mg PO QAM 05/07/21 12/29/23 History apixaban 2.5 mg tablet (Eliquis) 2.5 mg PO BID #60 tabs 07/13/21 12/29/23 Rx diphenoxylate-atropine 2.5 1 tab PO QID PRN Diarrhea 07/10/22 12/29/23 History mg-0.025 mg tablet magnesium oxide 400 mg PO BID #60 caps 12/01/22 12/29/23 Rx calcium carbonate 1,500 mg PO BID 01/23/23 12/29/23 History cyanocobalamin (vitamin B-12) 1,000 mcg PO DAILY 01/23/23 12/29/23 History 1,000 mcg tablet eplerenone 25 mg tablet 12.5 mg PO .HOLD 01/23/23 12/29/23 History triamcinolone acetonide 0.1 % 1 applic topical BID PRN flare up 01/23/23 12/29/23 History topical cream acyclovir 400 mg tablet 400 mg PO BID 03/28/23 12/29/23 History albuterol sulfate 90 mcg/actuation 2 puff inhalation QID PRN 03/28/23 12/29/23 History aerosol inhaler Shortness Of Breath Or Wheezing potassium chloride 20 mEq 20 meq PO DAILY 10/10/23 12/29/23 History tablet,extended release hydralazine 25 mg tablet 25 mg PO .HOLD 12/08/23 12/29/23 History levothyroxine 75 mcg tablet 75 mcg PO QAM 12/08/23 12/29/23 History metoprolol succinate 50 mg 50 mg PO BID 12/08/23 12/29/23 History tablet,extended release 24 hr torsemide 20 mg tablet 40 mg PO QAM 12/08/23 12/29/23 History oxybutynin chloride 5 mg tablet 5 mg PO BID PRN bladder spasms #20 12/16/23 12/29/23 Rx tabs nystatin 100,000 unit/mL oral 5 ml PO QID 12/29/23 12/29/23 History suspension Past Med/Surg History Problem List (Updated 12/29/23 @ 13:51 by Milena Jones PA-C) Altered mental status Fowler catheter in place (Acute) Abdominal pain, lower (Acute) Acute urinary retention (Acute) Chronic retention of urine Multiple myeloma (Acute) Bladder calculi (Acute) Lower abdominal pain (Acute) Confusion (Acute) Cardiac pacemaker in situ Breathlessness (Acute) Abdominal pain (Acute) Nausea (Acute) Confusion Acute on chronic diastolic heart failure with preserved ejection fraction Hypoxia (Acute) LBBB (left bundle branch block) ? HX Obstructive sleep apnea on CPAP Monoclonal paraproteinemia CKD (chronic kidney disease), stage III Hypertension Hypomagnesemia Exertional shortness of breath Atrial fibrillation with rapid ventricular response (Acute) Anemia Encounter for pre-operative examination Insomnia (Chronic) Major depression (Chronic) Osteoarthrosis (Chronic) ASCVD (arteriosclerotic cardiovascular disease) (Chronic) cardiac cath 2009 - non obstructive disease H/O knee surgery History of hip surgery BPH (benign prostatic hyperplasia) Atrial fibrillation Monoclonal B-cell lymphocytosis Pericardial effusion Pleural effusion, left History of pulmonary embolism Acute on chronic diastolic CHF (congestive heart failure) Anemia (Acute) UTI (urinary tract infection) Pneumonia due to COVID-19 virus Respiratory failure with hypoxia Dysphagia DVT prophylaxis Morbid (severe) obesity due to excess calories Medical History Obesity Chronic diarrhea WORSENING...REASON FOR UPCOMING PROCEDURES Thyroid disease Anxiety and depression Multiple myeloma dx 4 yr ago...current chemo tx monthly SOB (shortness of breath) SOB ON EXERTION...CT scan done 1-1.[address] [facility]...form of blood clot and fluid ? extent , some kind of scarring - f/u with lung specialist - appointment not yet made History of pulmonary embolism History of DVT (deep vein thrombosis) Diarrhea Thrombocytopenia Elevated troponin I level Hypoxia 2018 novel coronavirus-infected pneumonia (NCIP) ? 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 HX Prolonged QT interval ? HX GERD (gastroesophageal reflux disease) BPH without obstruction/lower urinary tract symptoms Carpal tunnel syndrome Gout hx Restless leg syndrome Surgical History History of cardiac cath ? 2009 - unable to verify - no known hx stent(s) History of revision of total knee arthroplasty ? side...d/t infection History of pacemaker jun 2021/? type/recent check unknown details History of thoracentesis July [address] Jeffries. No bacterial growth or malignancy Pleurx catheter placed July 2019. Removed September 2019 History of appendectomy Status post total hip replacement, left History of esophagogastroduodenoscopy (EGD) History of colonoscopy History of tooth extraction History of cataract surgery RT/LEFT History of total right hip arthroplasty H/O sinus surgery unknown History of bilateral knee arthroplasty Hx of cholecystectomy Family History Father Heart disease Mother Diabetes Hypertension Brother Family hx of colon cancer Brother Family hx of colon cancer Social History Smoking Status: Unknown if ever smoked Second Hand Exposure: No; Do You Dip or Chew Tobacco: No; Hx Alcohol Use: No Hx Substance Use: No Preferred Language: Iranian Communication Ability: Effective Communication Ability Comment: PT DAUGHTER SHADY DAY, SIGNS CONSENTS (PT LIMITED COMPREHENSION) Sports Betting Manager Required: No Beliefs That Will Affect Care: None marital status: Current Living Situation: Spouse and Family Current Living Situation Comment: lives with and daughter How many Children do You have: 2 Feels Safe at Home: Yes Assistive Devices: Cane and CPAP Review of Systems Review of Systems: All systems reviewed & are unremarkable except as noted in HPI & below Physical Exam Physical Exam: Constitutional: WD/WN, elderly, M, vitals as above, NAD, sitting up in bed, pleasant, conversing easily Head: Normocephalic, Atraumatic Eyes: PERRL, conjunctivae normal, anicteric sclerae ENMT: external ear and nose normal, oropharynx normal Neck: trachea midline, no thyromegaly normal visual inspection Respiratory: normal respiratory effort, lungs clear to auscultation, no wheeze, rales, rhonchi. Normal insp/exp effort, no accessory muscle use Cardiovascular: no s1/s2, no murmur, subtle venous stasis change Vessels: no JVD or carotid bruit Chest: normal inspection of chest Abdomen: obese, protuberant abd, normal bowel sounds, soft, nontender, no hepatosplenomegaly Musculoskeletal: no cyanosis or clubbing, AROM x 4 Skin: no rashes, warm and dry normal turgor Neurologic: PERRL, EOMI, accommodation nl, no face palsy, no dysarthria CN's II-XI intact bilaterally and moves all extremities Psychiatric: A+Ox3 to basics only, euthymic affect Lymphatic: no cervical or axillary lymphadenopathy : deferred Results & Data Results & Data Vital Signs (Past 12 Hours) Vital Signs Temp Pulse Pulse Resp BP BP Pulse Ox 12/29/23 12:44 78 18 94 12/29/23 12:44 94 06/24/24 12:01 74 20 146/83 H 95 12/29/23 10:31 69 12/29/23 10:15 36.6 C 108 H 12 134/83 95 O2 Del Method 12/29/23 12:44 Room Air 12/29/23 12:44 Room Air 12/29/23 12:01 Room Air 12/29/23 10:31 12/29/23 10:15 Room Air Diagnostic Findings Chest X-Ray 12/29/23 10:31 XR chest 1V portable CLINICAL HISTORY: Weakness COMPARISON STUDY: Chest CT May 14, 2022. Chest radiograph December 12, 2023. FINDINGS: Left subclavian pacer is in place. Elevation of the right hemidiaphragm is unchanged. Cardiomegaly is unchanged. There is no evidence for pulmonary edema. There is no pneumothorax or pleural effusion. There is no consolidation to suggest pneumonia. IMPRESSION: No acute cardiopulmonary findings. ACT 112: Negative or not required by law. Electronically signed by: Kyler Lim M.D. 12/29/2023 11:33 AM Medications Administered Medication List Discontinued Medications Ceftriaxone Sodium (Rocephin) 2,000 mg in 50 mls @ 100 mls/hr IV NOW STA Stop: 12/29/23 12:40 Last Admin: 12/29/23 12:46 Dose: 100 mls/hr Documented By: TESSA ECG Additional Comments: I have independently reviewed and interpreted patient's admitting EKG which revealed: 109 vpaced rhythm, qtc 562ms Code Status & VTE Plan Code Status FULL CODE VTE Prophylaxis Plan VTE Prophylaxis will be ordered: No Supervising Physician Co-Signing Physician Notes Patient was seen and examined with Milena ALCIIA at bedside. Chart reviewed. Case discussed with Milena and agree with the documentation above. In summary, this is a 83 year old male with multiple medical comorbidities as above who presented to the ED from home with confusion and suprapubic pressure for couple days. He is AAOx3 during my encounter and conversing appropriately. He has h/o bladder calculi s/p cystolitholapaxy and fulguration of prostate 12/13 by urology and was discharged on fowler which was removed 12/21 but had to be placed back in ED on 12/26 for acute urinary retention and was discharged home. He had lower abdominal pain which did not improve even after discharge and was confused today, prompting emergency visit. States he feels dizzy and being in the other world. Similar episode happened in past during setting of infection. He was feeling better during our encounter. Confusion has resolved and abd pain is resolved. Son was at bedside. Vitals, labs and imaging reviewed. Concern for UTI with metabolic encephalopathy- started on ceftriaxone in ED, which we will continue. Recent CT A/P 12/26 without infectious process but punctate bladder stones/fragments. Consult urology. Delirium precautions. Follow up culture results and CT head. Rest as per the note above. On exam- General: Lying comfortably in bed, not in distress, on room air HEENT: EOMI, EM, MMM Chest: Clear breath sounds bilaterally, no wheezes or crackles CVS: Regular rate and rhythm, normal heart sounds, no murmur Abdomen: Soft, non tender, not distended, normal bowel sounds Neuro: Awake, alert, orientedx3, conversing well, non focal Extremities: No cyanosis, clubbing or edema : Fowler with clear urine
--- NOTE | 2023-12-29 14:28 | CT Scan Report ---
CT SCAN OF THE BRAIN WITHOUT IV CONTRAST CLINICAL HISTORY: Change in mental status. COMPARISON STUDY: CT of the brain dated 12/12/2023. TECHNIQUE: Unenhanced axial CT scan of the brain is performed from the vertex to the skull base. A do se lowering technique was utilized adhering to the principles of ALARA. CT DOSE: 625.8 mGy.cm FINDINGS: Brain parenchyma: Right cerebellar encephalomalacia is consistent with a remote insult. There is age- related involutional change noting mild subcortical and periventricular microangiopathic disease. The re is no hemorrhage, mass effect, or evidence of acute territorial ischemia by CT criteria. Middleton-whit e matter differentiation is preserved. No extra-axial fluid collection is seen. Mineralization is not ed in the basal ganglia. Ventricles, sulci, cisterns: Prominent secondary to involutional change. Intracranial vasculature: There is atherosclerotic calcification of the cavernous carotid and vertebr al arteries. Calvarium: There is postsurgical change from right occipital craniectomy. No destructive calvarial le ulises is seen. Sinuses and mastoids: There is evidence of previous paranasal sinus surgery. There is mild mucosal th ickening in the right maxillary antrum. Thickening and sclerosis of the sinus wall indicates chronici ty. The remaining paranasal sinuses are clear. The mastoid air cells are well pneumatized. Orbits: The bony orbits are grossly intact. There are bilateral ocular lens implants. IMPRESSION: There is no hemorrhage, mass effect, or evidence of acute territorial ischemia by CT patricia buitrago. ACT 112: Negative or not required by law. Electronically signed by: Shahram Hastings M.D. 12/29/2023 2:27 PM
[2023-12-29 15:17] LABS: T4 Free Thyroxine 1.18 ng/dl (0.61-1.60)
--- NOTE | 2023-12-29 15:24 | Urology Consultation ---
<Statement entered by Saman Mayberry MD - 12/29/23 19:11> I have discussed Mr. Dolan's case with ASHER Ashford and agree with the above documentation. Bladder is decompressed with Fowler catheter in place. Agree with obtaining urine culture, treating with broad-spectrum antibiotics and narrowing as culture data becomes available. -Saman Mayberry MD. Date of Consultation December 29, 2023 Assessment & Plan (1) Altered mental status: (2) Fowler catheter in place: (3) UTI (urinary tract infection): (4) Acute urinary retention: Plan 83yo/M who is s/p Cystolitholapaxy and Fulguration of Prostate 12/14/23 admitted with altered mental status and possible UTI. - Pt afebrile, hemodynamically stable. - Labs show a wbc of 10.91 and creatinine 1.62 (baseline cr 1.7-1.8). - Urine culture pending. Blood cultures to be collected. - Fowler intact and draining clear yellow urine with sediment. - CT A/P 12/27/23 reviewed - No stones or hydronephrosis, Bladder decompressed with a Fowler catheter, previous large bladder stone no longer identified, few small punctate bladder stone/fragments noted, and prostatomegaly. - No acute intervention warranted - Maintain Fowlre catheter. - Continue antibiotics and tailor as culture data becomes available. - Continue Terazosin. Can consider addition of Finasteride for dual therapy for the prostate. - Patient/family are interested in possible outlet procedure. Will arrange outpatient follow-up with our service for cystoscopy, possible void trial, and further discussion of options. - Urology will follow peripherally. Please call with any questions or concerns. History of Present Illness History of Present Illness 83 year old male with multiple medical issues who presented to ED today due to altered mental status. He was recently hospitalized 12/11 -12/15 secondary to altered mental status and abdominal pain. CT scan of abdomen pelvis revealed a bladder stone and he underwent cystolitholopaxy with fulguration of prostate on 12/14/[address] Kate. He was discharged home with a Fowler catheter in place on 12/16/23. On 12/22/23 he had the fowler catheter removed in the urology clinic. He initially did well but developed difficulty urinating and presented to the ED 12/26 and had the catheter replaced. CT abd pelvis at that time showing the bladder decompressed with a Fowler catheter, previous large bladder stone no longer identified, few small punctate bladder stone/fragments noted, and prostatomegaly. CT abd pelvis 12/27/23- 1. No acute infectious or inflammatory findings are identified in the abdomen or pelvis. 2. The bladder is decompressed around a Fowler catheter and not well assessed. Prostatomegaly is again noted. 3. The large bladder calculus seen previously is no longer identified. There are punctate bladder stones/fragments on today's examination. 4. Cardiomegaly. On arrival today he was afebrile and hemodynamically stable. Labs show a WBC of 10.91, hemoglobin 13.9, creatinine 1.62. Urinalysis with 1+ blood, negative nitrite, 3+ LE, negative bacteria. Urine and blood culture pending. Patient given IV ceftriaxone. Pt seen at bedside today. Awake, resting in bed on arrival. No acute distress. Family at bedside. Fowler draining yellow urine with sediment. No complaints of pain at present. Denies f/c/n/v. He is on Terazosin. Allergies Allergy/AdvReac Type Severity Reaction Status Date / Time COVID-19 vaccine, mRNA, AdvReac Unknown probable Verified 12/27/23 20:42 [id number], L reaction: [From [facility] ([facility])] throat swelling Home Medications Medication Instructions Recorded Confirmed Type allopurinol 300 mg tablet 300 mg PO QAM 04/30/18 12/29/23 History atorvastatin 10 mg tablet 5 mg PO QAM 04/30/18 12/29/23 History cholecalciferol (vitamin D3) 50 2,000 unit PO QAM 04/30/18 12/29/23 History mcg (2,000 unit) capsule (Vitamin D3) omeprazole 40 mg capsule,delayed 40 mg PO DAILY 04/30/18 12/29/23 History release terazosin 5 mg capsule 5 mg PO HS 04/30/18 12/29/23 History montelukast 10 mg tablet 10 mg PO QAM 05/07/21 12/29/23 History apixaban 2.5 mg tablet (Eliquis) 2.5 mg PO BID #60 tabs 07/13/21 12/29/23 Rx diphenoxylate-atropine 2.5 1 tab PO QID PRN Diarrhea 07/10/22 12/29/23 History mg-0.025 mg tablet magnesium oxide 400 mg PO BID #60 caps 12/01/22 12/29/23 Rx calcium carbonate 1,500 mg PO BID 01/23/23 12/29/23 History cyanocobalamin (vitamin B-12) 1,000 mcg PO DAILY 01/23/23 12/29/23 History 1,000 mcg tablet eplerenone 25 mg tablet 12.5 mg PO .HOLD 01/23/23 12/29/23 History triamcinolone acetonide 0.1 % 1 applic topical BID PRN flare up 01/23/2312/28 History topical cream acyclovir 400 mg tablet 400 mg PO BID 03/28/23 12/29/23 History albuterol sulfate 90 mcg/actuation 2 puff inhalation QID PRN 03/28/23 12/29/23 History aerosol inhaler Shortness Of Breath Or Wheezing potassium chloride 20 mEq 20 meq PO DAILY 10/10/23 12/29/23 History tablet,extended release hydralazine 25 mg tablet 25 mg PO .HOLD 12/08/23 12/29/23 History levothyroxine 75 mcg tablet 75 mcg PO QAM 12/08/23 12/29/23 History metoprolol succinate 50 mg 50 mg PO BID 12/08/23 12/29/23 History tablet,extended release 24 hr torsemide 20 mg tablet 40 mg PO QAM 12/08/23 12/29/23 History oxybutynin chloride 5 mg tablet 5 mg PO BID PRN bladder spasms #20 12/16/23 12/29/23 Rx tabs nystatin 100,000 unit/mL oral 5 ml PO QID 12/29/23 12/29/23 History suspension Patient History Medical History Obesity Chronic diarrhea WORSENING...REASON FOR UPCOMING PROCEDURES Thyroid disease Anxiety and depression Multiple myeloma dx 4 yr ago...current chemo tx monthly SOB (shortness of breath) SOB ON EXERTION...CT scan done 1-1.5 mon ago [facility]...form of blood clot and fluid ? extent , some kind of scarring - f/u with lung specialist - appointment not yet made History of pulmonary embolism History of DVT (deep vein thrombosis) Diarrhea Thrombocytopenia Elevated troponin I level Hypoxia 2019 novel coronavirus-infected pneumonia (NCIP) ? 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 HX Prolonged QT interval ? HX GERD (gastroesophageal reflux disease) BPH without obstruction/lower urinary tract symptoms Carpal tunnel syndrome Gout hx Restless leg syndrome Surgical History History of cardiac cath ? 2009 - unable to verify - no known hx stent(s) History of revision of total knee arthroplasty ? side...d/t infection History of pacemaker jun 2021/? type/recent check unknown details History of thoracentesis July [address] Jeffries. No bacterial growth or malignancy Pleurx catheter placed July 2019. Removed September 2019 History of appendectomy Status post total hip replacement, left History of esophagogastroduodenoscopy (EGD) History of colonoscopy History of tooth extraction History of cataract surgery RT/LEFT History of total right hip arthroplasty H/O sinus surgery unknown History of bilateral knee arthroplasty Hx of cholecystectomy Family History Father Heart disease Mother Diabetes Hypertension Brother Family hx of colon cancer Brother Family hx of colon cancer Social History Smoking Status: Unknown if ever smoked Second Hand Exposure: No; Do You Dip or Chew Tobacco: No; Hx Alcohol Use: No Hx Substance Use: No Preferred Language: Tristanian Communication Ability: Effective Communication Ability Comment: PT DAUGHTER SHADY DAY, SIGNS CONSENTS (PT LIMITED COMPREHENSION) Anime Designer Required: No Beliefs That Will Affect Care: None marital status: Current Living Situation: Spouse and Family Current Living Situation Comment: lives with and daughter How many Children do You have: 2 Feels Safe at Home: Yes Assistive Devices: Cane and CPAP Review of Systems Review of Systems: All systems reviewed & are unremarkable except as noted in HPI & below Physical Exam Constitutional: no acute distress Neck: normal visual inspection Respiratory: no respiratory distress and no labored breathing Musculoskeletal: Head/Neck/Chest: normocephalic Skin: Warm and dry Neurologic: moves all extremities and awake Psychiatric: A+Ox3, euthymic affect Genitourinary: Fowler intact Results & Data Vital Signs (Past 12 Hours) Vital Signs Temp Pulse Pulse Resp BP BP Pulse Ox 12/29/23 14:41 74 16 111/73 94 12/29/23 12:44 78 18 94 12/29/23 12:44 94 12/29/23 12:01 74 20 146/83 H 95 12/29/23 10:31 69 12/29/23 10:15 36.6 C 108 H 12 134/83 95 O2 Del Method 12/29/23 14:41 Room Air 12/29/23 12:44 Room Air 12/29/23 12:44 Room Air 12/29/23 12:01 Room Air 12/29/23 10:31 12/29/23 10:15 Room Air PG Care Time/CCT Total # of Minutes Spent Total Time Spent with Patient: Total time spent is greater than 50% in coordination of care (as documented) at patient's floor/unit and/or counseling patient: Coding Level of Care Code 39230 INT INP/OBS CARE 2/55MIN Diagnoses Altered mental status R41.[address] Z97.8 UTI (urinary tract infection) N39.0 Acute urinary retention R33.8
--- NOTE | 2023-12-29 16:42 | Ultrasound Report ---
ULTRASOUND OF THE CAROTID ARTERIES CLINICAL HISTORY: Transient ischemic attack. COMPARISON STUDY: No priors. TECHNIQUE: Real-time, grayscale, and color Doppler sonography of the carotid arteries is performed. I mages are reviewed in the transverse and longitudinal planes. FINDINGS: The carotid arteries are patent bilaterally and demonstrate antegrade flow. There is mild atheroscler otic plaque seen in the left carotid bulb. Normal doppler arterial waveforms are seen throughout. Lino ocity measurements are listed below. Common carotid peak systolic velocity (cm/sec): RIGHT: 75 LEFT: 93 ICA proximal peak systolic velocity (cm/sec): RIGHT: 66 LEFT: 62 ICA mid peak systolic velocity (cm/sec): RIGHT: 74 LEFT: 52 ICA distal peak systolic velocity (cm/sec): RIGHT: 43 LEFT: 51 ICA/CC peak systolic ratio: RIGHT: 1.0 LEFT: 0.7 Antegrade flow was shown in the vertebral arteries. The external carotid arteries are patent. IMPRESSION: 1. There is no sonographic evidence of hemodynamically significant stenosis in the right or left goncalves tid arterial system. 2. Antegrade flow is shown in the vertebral arteries. ACT 112: Negative or not required by law. Electronically signed by: Shahram Hastings M.D. 12/29/2023 4:41 PM
--- NOTE | 2023-12-29 18:36 | Electrocardiogram Report ---
Test Reason : Blood Pressure : / mmHG Vent. Rate : 109 BPM Atrial Rate : 057 BPM P-R Int : 000 ms QRS Dur : 158 ms QT Int : 418 ms P-R-T Axes : 000 -12 -69 degrees QTc Int : 562 ms Ventricular-paced rhythm Abnormal ECG When compared with ECG of 27-DEC-2023 17:26, Electronic ventricular pacemaker has replaced Sinus rhythm Confirmed by Akash Freire ([id number]) on 12/29/2023 6:36:34 PM Referred By: REFERRED SELF Confirmed By:Akash Freire
[2023-12-29] MEDS ORDERED: FAMOTIDINE 20 MG TAB PO PRN (19:06)
[2023-12-29] MEDS ORDERED: ALUMINUM/MAGNESIUM SUSP 30 ML UDC PO PRN (19:06)
[2023-12-29] MEDS ORDERED: oxyBUTYnin chloride 5 MG TAB PO PRN (19:06)
[2023-12-29] MEDS ORDERED: PROMETHAZINE HCL 12.5 MG in SODIUM CHLORIDE 0.9% 50 ML IV PRN (19:06)
[2023-12-29] MEDS: NYSTATIN SUSP 500,000 U/5 ML UDC PO SCH (19:40)
[2023-12-29] MEDS: hydrALAZINE HCL 25 MG TAB PO SCH (19:40)
[2023-12-29] MEDS ORDERED: MELATONIN 3 MG TAB PO PRN (21:00)
[2023-12-29] MEDS: METOPROLOL SUCC 50MG EXT REL TAB PO SCH (21:39)
[2023-12-29] MEDS: ACYCLOVIR 400 MG TAB PO SCH (21:39)
[2023-12-29] MEDS: APIXABAN 2.5 MG TAB PO SCH (21:40)
[2023-12-29] MEDS: TERAZOSIN HCL 5 MG CAP PO SCH (21:41)
[2023-12-29] MEDS: MAGNESIUM OXIDE 400 MG TAB PO SCH (21:41)
[2023-12-29] MEDS: CALCIUM CARBONATE 1250MG TAB PO SCH (21:42)
[2023-12-29] MEDS: SODIUM CHLORIDE 0.9% 500 ML IV SCH (23:28)
[2023-12-30 03:47] LABS: Basophils # (auto) 0.06 K/uL (0.00-0.20); Basophils % (auto) 0.5 %; Eosinophils # (auto) 0.52 K/uL (0.00-0.50); Eosinophils % (auto) 4.7 %; Hematocrit (blood only) 40.4 % (42.0-52.0); Hemoglobin 13.6 g/dl (14.0-18.0); Immature Granulocytes # (auto) 0.03 K/uL (0.01-0.20); Immature Granulocytes % (auto) 0.3 %; Lymphocytes # (auto) 1.05 K/uL (1.20-3.40); Lymphocytes % (auto) 9.5 %; Mean Corpuscular Hemoglobin 32.3 pg (25.0-34.0); Mean Corpuscular Hgb Conc 33.7 g/dL (32.0-36.0); Mean Platelet Volume 10.6 fL (9.4-12.4); Monocytes # (auto) 0.82 K/uL (0.11-0.59); Monocytes % (auto) 7.4 %; Neutrophils # (auto) 8.55 K/uL (1.40-6.50); Neutrophils % (auto) 77.6 %; Platelet Count 221 K/uL (130-400); RDW Coefficient of Variation 14.1 % (11.5-14.5); RDW Standard Deviation 49.1 fL (36.4-46.3); Red Blood Count 4.21 M/uL (4.70-6.10); White Blood Count 11.03 K/ul (4.8-10.8)
[2023-12-30 04:04] LABS: Albumin Globulin Ratio 1.7 (0.9-2); Albumin Level 3.5 gm/dl (3.4-5.0); BUN Creatinine Ratio 9.8 (10-20); Calcium 7.8 mg/dl (8.6-10.3); Creatinine Clr Calc Pharmacy 40.3 ml/min; Est GFR (African American) 41.1 ml/min; Est GFR (Non-African American) 35.5 ml/min; Globulin 2.1 gm/dl (2.5-4.0); Magnesium 1.7 mg/dl (1.7-2.4); Total Protein 5.6 gm/dl (6.0-8.3)
[2023-12-30] MEDS: LEVOTHYROXINE SODIUM 75 MCG TABLET PO SCH (05:57)
[2023-12-30] MEDS: PANTOprazole 40 MG TAB PO SCH (08:06)
[2023-12-30] MEDS: MONTELUKAST SODIUM 10 MG TABLET PO SCH (08:06)
[2023-12-30] MEDS: POTASSIUM CHLORIDE CRTAB 20 MEQ TABCR PO SCH (08:06)
[2023-12-30] MEDS: TORSEMIDE 20 MG TAB PO SCH (08:06)
[2023-12-30] MEDS: CHOLECALCIFEROL 25 MCG (1000 UNITS) TAB PO SCH (08:07)
[2023-12-30] MEDS: ATORVASTATIN 10 MG TAB PO SCH (08:07)
[2023-12-30] MEDS: allopurinoL 300 MG TAB PO SCH (08:08)
[2023-12-30] MEDS: CYANOCOBALAMIN (B-12) 500 MCG TABLET PO SCH (08:12)
[2023-12-30 08:40] LABS: Estimated Average Glucose 126 mg/dl
--- NOTE | 2023-12-30 10:53 | Urology Progress Note ---
Date of Service December 30, 2023 Assessment & Plan (1) Altered mental status: (2) Briceno catheter in place: (3) UTI (urinary tract infection): (4) Acute urinary retention: Plan 83yo/M who is s/p Cystolitholapaxy and Fulguration of Prostate 12/14/23 admitted with altered mental status and possible UTI. - Pt afebrile, hemodynamically stable. - Labs show a wbc of 11.03 and creatinine 1.74 (baseline cr 1.7-1.8). - Urine and blood cultures pending. - Briceno intact and draining clear yellow urine. - CT A/P 12/27/23 reviewed - No stones or hydronephrosis, Bladder decompressed with a Briceno catheter, previous large bladder stone no longer identified, few small punctate bladder stone/fragments noted, and prostatomegaly. - No acute intervention warranted - Maintain Briceno catheter. - Continue antibiotics and tailor as culture data becomes available. - Continue Terazosin. Can consider addition of Finasteride for dual therapy for the prostate. - Patient/family are interested in possible outlet procedure. Will arrange outpatient follow-up with our service for cystoscopy, possible void trial, and further discussion of options. - Urology will follow peripherally. Please call with any questions or concerns. Admission and Anticipated Discharge Date Admission Date: December 29, 2023 Subjective Pt seen at bedside this AM Awake, resting in bed on arrival No acute distress Briceno draining yellow urine He reports some abd pain with BM this morning. Denies f/c/n/v Review of Systems Constitutional: as per Subjective / HPI Genitourinary: + as per Subjective / HPI Physical Exam Constitutional: no acute distress Neck: normal visual inspection Respiratory: no respiratory distress and no labored breathing Neurologic: awake Psychiatric: A+Ox3, euthymic affect Genitourinary: Briceno intact Results & Data Vital Signs (Past 12 Hours) Vital Signs Pulse Pulse Resp BP BP Pulse Ox O2 Del Method 12/30/23 09:48 83 12/30/23 09:46 78 20 136/77 95 Room Air 12/30/23 08:00 73 18 119/75 12/30/23 07:00 76 22 96/75 L 91 12/30/23 06:00 71 20 129/85 95 Room Air 12/30/23 05:00 62 14 111/66 96 Room Air 12/30/23 04:54 70 13 95 12/30/23 04:45 83 22 95 12/30/23 04:31 108/70 12/30/23 04:31 108/70 12/30/23 04:31 108/70 12/30/23 04:31 108/70 12/30/23 04:31 108/70 12/30/23 04:31 108/70 12/30/23 04:31 108/70 12/30/23 04:31 108/70 12/30/23 04:31 108/70 12/30/23 04:27 65 2 L 96 12/30/23 04:21 63 1 L 96 12/30/23 04:06 CPAP 12/30/23 04:06 75 18 98/76 L 98 CPAP 12/30/23 03:10 66 19 98 12/29/23 23:35 75 12/29/23 23:03 83 23 84/56 L 96 CPAP O2 Flow Rate 12/30/23 09:48 12/30/23 09:46 12/30/23 08:00 12/30/23 07:00 12/30/23 06:00 12/30/23 05:00 12/30/23 04:54 12/30/23 04:45 12/30/23 04:31 12/30/23 04:31 12/30/23 04:31 12/30/23 04:31 12/30/23 04:31 12/30/23 04:31 12/30/23 04:31 12/30/23 04:31 12/30/23 04:31 12/30/23 04:27 12/30/23 04:21 12/30/23 04:06 12/30/23 04:06 12/30/23 03:10 3 12/29/23 23:35 12/29/23 23:03 PG Care Time/CCT Total # of Minutes Spent Total Time Spent with Patient: Total time spent is greater than 50% in coordination of care (as documented) at patient's floor/unit and/or counseling patient: Coding Level of Care Code 11713 SUB INP/OBS CARE 2/35MIN Diagnoses Altered mental status R41.[address] Z97.8 UTI (urinary tract infection) N39.0 Acute urinary retention R33.8
[2023-12-30] MEDS: cefTRIAXone SODIUM 2,000 MG/50 ML BAG IV SCH (11:01)
[2023-12-30] MEDS: ACETAMINOPHEN 325 MG TAB PO PRN (12:11)
--- NOTE | 2023-12-30 12:54 | Hospitalist Progress Note ---
Date of Service December 30, 2023 Assessment & Plan (1) Altered mental status: (2) Chronic retention of urine: (3) UTI (urinary tract infection): (4) Briceno catheter in place: (5) CKD (chronic kidney disease), stage III: (6) Obstructive sleep apnea on CPAP: (7) Chronic diastolic CHF (congestive heart failure): (8) CAD (coronary artery disease): (9) Prolonged QT interval: (10) Atrial fibrillation: Plan This is an 83 y/o M with PMH PAF anticoagulated on Eliquis, chronic diastolic CHF, CAD, chronic LBBB, TBS s/p PPM, hx of PE, Hx of multiple myeloma, HTN, CKD III, BPH, depression, hypothyroidism, NAHEED, hx of PE, presented to ER 2/2 altered mental status. Altered Mental Status ? if in setting of CAUTI vs delirium in setting of poor sleep habits on dementia CA - Complicated UTI Briceno in place/Chronic retention Admitted to [facility] tele He is s/p Cystolithopaxy and fulguration of prostate on 12/[address] Kate Briceno cath placed, removed 12/21, reinserted 12/26 due to retention mild leukocytosis, UA with leukocytes mental status appears to be transient, as he appears improved on admission eval and also currently able to answer appropriately CT head - There is no hemorrhage, mass effect, or evidence of acute territorial ischemia by CT criteria. Carotid US - 1. There is no sonographic evidence of hemodynamically significant stenosis in the right or left carotid arterial system. 2. Antegrade flow is shown in the vertebral arteries. Will treat for possible UTI, blood cultures pending Pt reports poor sleep/lack there of the night before ? if delirium in setting of dementia pt will need close urology follow up Urology consulted - - No acute intervention warranted - Maintain Briceno catheter. - Continue antibiotics and tailor as culture data becomes available. - Continue Terazosin. Can consider addition of Finasteride for dual therapy for the prostate. - Patient/family are interested in possible outlet procedure. Will arrange outpatient follow-up with our service for cystoscopy, possible void trial, and further discussion of options. CAD hx of Diastolic CHF HTN HLD chronic, stable euvolemic, daily weights, strict I and O continue torsemide, eplernone, metoprolol, statin, hydralazine last echo 2020 EF 54% PAF hx of TBS s/p PPM Prolonged QTC - avoid qTC prolonging meds continue metoprolol and eliquis CKD-3 chronic, stable baseline cr 1.7-1.8 bun/cr stable, avoid nephrotoxic agents follows [facility] nephro Thrush dx as outpt, improving complete course of nystatin Hypothyroidism chronic, stable TSH elevate at 6.84, will repeat tsh will obtain t4 continue levothyroxine NAHEED CPAP at HS MM follows w/ local cancer center DVT ppx: Eliquis FULL CODE PCP: Telma Jacobs Dispo: med tele, IV antibiotics, await culture, PT/OT consults Admission and Anticipated Discharge Date Admission Date: December 29, 2023 Subjective Pt seen in follow up of AMS, concern for UTI w/ Briceno, recent urologic procedure Currently laying in bed in NAD no fever, chills, chest pain, shortness of breath abd pain comes and goes, currently has none but overall reports not feeling well chemists present at the bedside pt still in the ED room Review of Systems Review of Systems: All systems reviewed & are unremarkable except as noted in Subjective Physical Exam Physical Exam: Constitutional: WD/WN in NAD Head: Normocephalic, Atraumatic Eyes: PERRL, anicteric sclerae ENMT: external ear and nose normal Neck: normal visual inspection Respiratory: normal respiratory effort, lungs clear to auscultation, no wheeze, rales, rhonchi Cardiovascular: no s1/s2, no murmur Chest: normal inspection of chest Abdomen: obese, protuberant abd, normal bowel sounds, soft, nontender : Briceno cath placed, yellow urine w/ some blood (previously noted by RN - catheter repositioned as was pulling) Musculoskeletal: moves extremities Skin: no rashes, warm and dry normal turgor Neurologic: PERRL, EOMI, no face palsy, no dysarthria, moves all extremities Psychiatric: A+Ox3, euthymic affect Results & Data Results & Data Vital Signs (Past 12 Hours) Vital Signs Pulse Pulse Resp BP BP Pulse Ox O2 Del Method 12/30/23 09:48 83 12/30/23 09:46 78 20 136/77 95 Room Air 12/30/23 08:00 73 18 119/75 12/30/23 07:00 76 22 96/75 L 91 12/30/23 06:00 71 20 129/85 95 Room Air 12/30/23 05:00 62 14 111/66 96 Room Air 12/30/23 04:54 70 13 95 12/30/23 04:45 83 22 95 12/30/23 04:31 108/70 12/30/23 04:31 108/70 12/30/23 04:31 108/70 12/30/23 04:31 108/70 12/30/23 04:31 108/70 12/30/23 04:31 108/70 12/30/23 04:31 108/70 12/30/23 04:31 108/70 12/30/23 04:31 108/70 12/30/23 04:27 65 2 L 96 12/30/23 04:21 63 1 L 96 12/30/23 04:06 CPAP 12/30/23 04:06 75 18 98/76 L 98 CPAP 12/30/23 03:10 66 19 98 O2 Flow Rate 12/30/23 09:48 12/30/23 09:46 12/30/23 08:00 12/30/23 07:00 12/30/23 06:00 12/30/23 05:00 12/30/23 04:54 12/30/23 04:45 12/30/23 04:31 12/30/23 04:31 12/30/23 04:31 12/30/23 04:31 12/30/23 04:31 12/30/23 04:31 12/30/23 04:31 12/30/23 04:31 12/30/23 04:31 12/30/23 04:27 12/30/23 04:21 12/30/23 04:06 12/30/23 04:06 12/30/23 03:10 3 Laboratory Results 12/30/23 12/29/23 12/29/23 Range/Units 03:26 12:50 10:33 WBC 11.03 H 10.91 H (4.8-10.8) K/ul RBC 4.21 L 4.22 L (4.70-6.10) M/uL Hgb 13.6 L 13.9 L (14.0-18.0) g/dl Hct 40.4 L 40.5 L (42.0-52.0) % MCV 96.0 96.0 (80.0-100.0) fL MCH 32.3 32.9 (25.0-34.0) pg MCHC 33.7 34.3 (32.0-36.0) g/dL RDW Std Deviation 49.1 H 50.1 H (36.4-46.3) fL RDW Coeff of Nunu 14.1 14.2 (11.5-14.5) % Plt Count 221 204 (130-400) K/uL MPV 10.6 11.1 (9.4-12.4) fL Immature Gran % (Auto) 0.3 0.4 % Neut % (Auto) 77.6 74.7 % Lymph % (Auto) 9.5 12.1 % Long % (Auto) 7.4 7.4 % Eos % (Auto) 4.7 4.9 % Baso % (Auto) 0.5 0.5 % Neut # (Auto) 8.55 H 8.13 H (1.40-6.50) K/uL Lymph # (Auto) 1.05 L 1.32 (1.20-3.40) K/uL Long # (Auto) 0.82 H 0.80 H (0.11-0.59) K/uL Eos # (Auto) 0.52 H 0.53 H (0.00-0.50) K/uL Baso # (Auto) 0.06 0.05 (0.00-0.20) K/uL Immature Gran # (Auto) 0.03 0.04 (0.01-0.20) K/uL Sodium 139 (136-145) mmol/L Potassium 4.0 (3.5-5.1) mmol/L Chloride 101 (98-107) mmol/L Carbon Dioxide 30 (21-32) mmol/L Anion Gap 8 (3-11) BUN 17 (6-23) mg/dl Creatinine 1.74 H (0.6-1.4) mg/dl Est Cr Clr Drug Dosing 40.3 ml/min Est GFR ( Amer) 41.1 ml/min Est GFR (Non-Af Amer) 35.5 ml/min BUN/Creatinine Ratio 9.8 L (10-20) Glucose 123 H (70-99(Fasting)) mg/dl POC Glucose 112 H (70-99) mg/dl Estimat Average Glucose 126 mg/dl Hemoglobin A1c 6.0 H (4.5-5.6) % Calcium 7.8 L (8.6-10.3) mg/dl Magnesium 1.7 (1.7-2.4) mg/dl Total Bilirubin 1.0 (0.2-1.0) mg/dl AST 15 (13-39) U/L ALT 7 (7-52) U/L Alkaline Phosphatase 60 (34-104) U/L Total Protein 5.6 L (6.0-8.3) gm/dl Albumin 3.5 (3.4-5.0) gm/dl Globulin 2.1 L (2.5-4.0) gm/dl Albumin/Globulin Ratio 1.7 (0.9-2) Triglycerides 80 (0-150) mg/dl Cholesterol 84 (0-200) mg/dl LDL Cholesterol, Calc 26 mg/dl VLDL Cholesterol, Calc 16 (0-30) mg/dl HDL Cholesterol 42 mg/dl Cholesterol/HDL Ratio 2.0 (0-5) Free T4 1.18 (0.61-1.60) ng/dl Medications Administered Current Inpatient Medications Acetaminophen (Acetaminophen 325 Mg Tab) 650 mg PO Q4H PRN PRN Reason: Pain or Fever Stop: 01/28/24 19:05 Last Admin: 12/30/23 12:11 Dose: 650 mg Acyclovir (Acyclovir 400 Mg Tab) 400 mg PO BID [facility] Stop: 01/28/24 20:59 Last Admin: 12/30/23 08:08 Dose: 400 mg Al Hydrox/Mg Hydrox/Simethicone (Aluminum/Magnesium Susp 30 Ml Udc) 15 ml PO Q4H PRN PRN Reason: Dyspepsia Stop: 01/28/24 19:05 Allopurinol (Allopurinol 300 Mg Tab) 300 mg PO QAM [facility] Stop: 01/29/24 08:59 Last Admin: 12/30/23 08:08 Dose: 300 mg Apixaban (Apixaban 2.5 Mg Tab) 2.5 mg PO BID [facility] Stop: 01/28/24 20:59 Last Admin: 12/30/23 08:08 Dose: 2.5 mg Atorvastatin Calcium (Atorvastatin 10 Mg Tab) 5 mg PO QAM [facility] Stop: 01/29/24 08:59 Last Admin: 12/30/23 08:07 Dose: 5 mg Calcium Carbonate (Calcium Carbonate 1250mg Tab) 1 tab PO BID [facility] Stop: 01/28/24 20:59 Last Admin: 12/30/23 08:07 Dose: 1 tab Cyanocobalamin (Cyanocobalamin (B-12) 500 Mcg Tablet) 1,000 mcg PO DAILY [facility] Stop: 01/29/24 08:59 Last Admin: 12/30/23 08:12 Dose: 1,000 mcg Famotidine (Famotidine 20 Mg Tab) 20 mg PO DAILY PRN PRN Reason: Heartburn Stop: 01/28/24 19:05 Hydralazine HCl (Hydralazine Hcl 25 Mg Tab) 25 mg PO TID [facility] Stop: 01/28/24 19:05 Last Admin: 12/30/23 08:12 Dose: Not Given Ceftriaxone Sodium (Rocephin) 2,000 mg in 50 mls @ 100 mls/hr IV Q24H [facility] Stop: 01/09/24 11:59 Last Infusion: 12/30/23 11:34 Dose: Infused Promethazine HCl 12.5 mg/ (Sodium Chloride) 50.5 mls @ 202 mls/hr IV Q6H PRN PRN Reason: Nausea And Vomiting Stop: 01/28/24 19:05 Levothyroxine Sodium (Levothyroxine Sodium 75 Mcg Tablet) 75 mcg PO DAILYBB [facility] Stop: 01/29/24 06:29 Last Admin: 12/30/23 05:57 Dose: 75 mcg Magnesium Hydroxide (Magnesium Hydroxide Susp 30 Ml Udc) 30 ml PO Q12H PRN PRN Reason: Constipation Stop: 01/28/24 19:05 Magnesium Oxide (Magnesium Oxide 400 Mg Tab) 400 mg PO BID [facility] Stop: 01/28/24 20:59 Last Admin: 12/30/23 08:07 Dose: 400 mg Melatonin (Melatonin 3 Mg Tab) 6 mg PO HS PRN PRN Reason: Sleep Stop: 01/28/24 20:59 Metoprolol Succinate (Metoprolol Succ 50mg Ext Rel Tab) 50 mg PO BID [facility] Stop: 01/28/24 20:59 Last Admin: 12/30/23 08:06 Dose: 50 mg Miscellaneous (Eplerenone ~ Order Awaiting Action) 1 each N/A QS [facility] Stop: 01/29/24 00:00 Last Admin: 12/30/23 06:59 Dose: Not Given Montelukast Sodium (Montelukast Sodium 10 Mg Tablet) 10 mg PO QAM [facility] Stop: 01/29/24 08:59 Last Admin: 12/30/23 08:06 Dose: 10 mg Nystatin (Nystatin Susp 500,000 U/5 Ml Udc) 5 ml PO QID [facility] Stop: 01/05/24 08:00 Last Admin: 12/30/23 12:20 Dose: 5 ml Oxybutynin Chloride (Oxybutynin Chloride 5 Mg Tab) 5 mg PO BID PRN PRN Reason: bladder spasms Stop: 01/28/24 19:05 Pantoprazole Sodium (Pantoprazole 40 Mg Tab) 40 mg PO DAILY [facility]; Protocol Stop: 01/29/24 08:59 Last Admin: 12/30/23 08:06 Dose: 40 mg Potassium Chloride (Potassium Chloride Crtab 20 Meq Tabcr) 20 meq PO DAILY [facility] Stop: 01/29/24 08:59 Last Admin: 12/30/23 08:06 Dose: 20 meq Terazosin HCl (Terazosin Hcl 5 Mg Cap) 5 mg PO HS [facility] Stop: 01/28/24 20:59 Last Admin: 12/29/23 21:41 Dose: 5 mg Torsemide (Torsemide 20 Mg Tab) 40 mg PO QAM [facility] Stop: 01/29/24 08:59 Last Admin: 12/30/23 08:06 Dose: 40 mg Vitamin D (Cholecalciferol 25 Mcg (1000 Units) Tab) 50 mcg PO QAM [facility] Stop: 01/29/24 08:59 Last Admin: 12/30/23 08:07 Dose: 50 mcg
[2023-12-31] MEDS: oxyCODONE HCL IR 5 MG TAB (IMMEDIATE RELEASE) PO STA (04:38)
[2023-12-31] MEDS: MAGNESIUM HYDROXIDE SUSP 30 ML UDC PO PRN (04:39)
[2023-12-31 07:14] LABS: Hematocrit (blood only) 39.9 % (42.0-52.0); Hemoglobin 13.5 g/dl (14.0-18.0); Mean Corpuscular Hemoglobin 32.1 pg (25.0-34.0); Mean Corpuscular Hgb Conc 33.8 g/dL (32.0-36.0); Mean Corpuscular Volume 94.8 fL (80.0-100.0); Mean Platelet Volume 11.1 fL (9.4-12.4); Platelet Count 238 K/uL (130-400); Red Blood Count 4.21 M/uL (4.70-6.10)
[2023-12-31 07:24] LABS: BUN Creatinine Ratio 10.9 (10-20); Calcium 8.1 mg/dl (8.6-10.3); Creatinine Clr Calc Pharmacy 37.9 ml/min; Est GFR (African American) 38.7 ml/min; Est GFR (Non-African American) 33.4 ml/min; Magnesium 1.7 mg/dl (1.7-2.4); Phosphorus 4.2 mg/dl (2.5-4.9); Potassium 3.5 mmol/L (3.5-5.1)
--- NOTE | 2023-12-31 09:40 | Urology Progress Note ---
Date of Service December 31, 2023 Assessment & Plan (1) Altered mental status: (2) Fowler catheter in place: (3) UTI (urinary tract infection): (4) Acute urinary retention: Plan 83yo/M who is s/p Cystolitholapaxy and Fulguration of Prostate 12/14/23 admitted with altered mental status and possible UTI. - Pt afebrile, hemodynamically stable. - Labs show a wbc of 10.30 and creatinine 1.83 (baseline cr 1.7-1.8). - Urine and blood cultures prelim no growth - Fowler cath exchanged overnight by nursing staff due to obstruction. Currently intact and draining rell urine. - CT A/P 12/27/23 reviewed - No stones or hydronephrosis, Bladder decompressed with a Fowler catheter, previous large bladder stone no longer identified, few small punctate bladder stone/fragments noted, and prostatomegaly. - No acute intervention warranted - Maintain Fowler catheter. Ok to hand irrigate as needed for clots, retention, suprapubic pain. - Continue antibiotics and tailor as culture data becomes available. - Continue Terazosin. Can consider addition of Finasteride for dual therapy for the prostate. - Can use oxybutynin PRN bladder spasms. - Patient/family are interested in possible outlet procedure. Will arrange outpatient follow-up with our service for cystoscopy, possible void trial, and further discussion of options. - Urology will follow peripherally. Please call with any questions or concerns. - Was asked to reassess patient this afternoon by nursing staff due to reports o f minimal urine output and suprapubic pain. Nursing had attempted to irrigate without success. - On arrival, there was minimal bloody urine output. Due to concern that the catheter was displaced in the prostate, I deflated the balloon and advanced the existing catheter. - After repositioning the catheter, there was immediate drainage of approx 1L of clear yellow urine. - Pt tolerated procedure well and reported resolution of suprapubic pain. - Maintain catheter and continue to monitor. OK to hand irrigate as needed. - Urology will follow. Please call with any questions or concerns. Admission and Anticipated Discharge Date Admission Date: December 29, 2023 Subjective Pt seen at bedside this AM Awake, resting in bed on arrival No acute distress Pt had lower abd pain overnight and fowler catheter was found to be obstructed. Nursing staff exchanged catheter with immediate 1L output which resolved symptoms per notes Fowler draining rell urine at present He denies any pain or discomfort at present Denies hematuria or dysuria Denies f/c/n/v Review of Systems Constitutional: as per Subjective / HPI Gastrointestinal: as per Subjective / HPI Genitourinary: + as per Subjective / HPI Physical Exam Constitutional: no acute distress Respiratory: no respiratory distress and no labored breathing Gastrointestinal (Abdomen): Percussion/Palpation: abdomen soft; abdomen nontender Neurologic: moves all extremities and awake Psychiatric: A+Ox3, euthymic affect Genitourinary: Fowler intact Results & Data Vital Signs (Past 12 Hours) Vital Signs Temp Pulse Pulse Resp BP BP Pulse Ox 12/31/23 07:44 36.9 C 84 16 123/59 L 92 12/31/23 07:34 73 12/31/23 03:41 36.8 C 80 18 115/67 96 12/30/23 22:21 36.7 C 88 16 101/56 L 96 12/30/23 21:58 63 O2 Del Method 12/31/23 07:44 Room Air 12/31/23 07:34 12/31/23 03:41 Room Air 12/30/23 22:21 Room Air 12/30/23 21:58 PG Care Time/CCT Total # of Minutes Spent Total Time Spent with Patient: Total time spent is greater than 50% in coordination of care (as documented) at patient's floor/unit and/or counseling patient: Coding Level of Care Code 75073 SUB INP/OBS CARE 2/35MIN Diagnoses Altered mental status R41.[address] Z97.8 UTI (urinary tract infection) N39.0 Acute urinary retention R33.8
--- NOTE | 2023-12-31 16:07 | Hospitalist Progress Note ---
Date of Service December 31, 2023 Assessment & Plan (1) Altered mental status: (2) Chronic retention of urine: (3) UTI (urinary tract infection): (4) Briceno catheter in place: (5) CKD (chronic kidney disease), stage III: (6) Obstructive sleep apnea on CPAP: (7) Chronic diastolic CHF (congestive heart failure): (8) CAD (coronary artery disease): (9) Prolonged QT interval: (10) Atrial fibrillation: Plan This is an 83 y/o M with PMH PAF anticoagulated on Eliquis, chronic diastolic CHF, CAD, chronic LBBB, TBS s/p PPM, hx of PE, Hx of multiple myeloma, HTN, CKD III, BPH, depression, hypothyroidism, NAHEED, hx of PE, presented to ER 2/2 altered mental status. Acute metabolic encephalopathy in setting of CAUTI vs delirium in setting of poor sleep habits on dementia CA - Complicated UTI Briceno in place/Chronic retention Admitted to [facility] tele He is s/p Cystolithopaxy and fulguration of prostate on 12/[address] Kate Briceno cath placed, removed 12/21, reinserted 12/26 due to retention mild leukocytosis, UA with leukocytes mental status appears to be transient, as he appears improved on admission eval and also currently able to answer appropriately CT head - There is no hemorrhage, mass effect, or evidence of acute territorial ischemia by CT criteria. Carotid US - 1. There is no sonographic evidence of hemodynamically significant stenosis in the right or left carotid arterial system. 2. Antegrade flow is shown in the vertebral arteries. Will treat for possible UTI, blood cultures pending Pt reports poor sleep/lack there of the night before ? if delirium in setting of dementia pt will need close urology follow up Urology consulted - - No acute intervention warranted - Maintain Briceno catheter. - Continue antibiotics and tailor as culture data becomes available. - Continue Terazosin. Can consider addition of Finasteride for dual therapy for the prostate. - Patient/family are interested in possible outlet procedure. Will arrange outpatient follow-up with our service for cystoscopy, possible void trial, and further discussion of options. 12/30 Blood culture, urine culture: Negative so far Back to baseline mental status Briceno catheter replaced Neurology service on board CAD hx of Diastolic CHF HTN HLD chronic, stable euvolemic, daily weights, strict I and O continue torsemide, eplernone, metoprolol, statin, hydralazine last echo 2020 EF 54% PAF hx of TBS s/p PPM Prolonged QTC - avoid qTC prolonging meds continue metoprolol and eliquis CKD-3 chronic, stable baseline cr 1.7-1.8 bun/cr stable, avoid nephrotoxic agents follows [facility] nephro Thrush dx as outpt, improving complete course of nystatin Hypothyroidism chronic, stable TSH elevate at 6.84, will repeat tsh will obtain t4 continue levothyroxine NAHEED CPAP at HS MM follows w/ local cancer center DVT ppx: Eliquis FULL CODE PCP: Telma Jacobs Dispo: PT recommending home with home health services upon discharge Admission and Anticipated Discharge Date Admission Date: December 29, 2023 Subjective Follow-up for acute metabolic encephalopathy, etc. Seen resting in bed, comfortable, not in distress In good spirits Oriented x 3, answering all questions appropriately States he feels fine overall Was having urinary retention overnight, leading to Briceno catheter placement No problems with Briceno catheter as of this morning, no abdominal pain, nausea vomiting, fevers or chills No other new symptoms Review of Systems Review of Systems: all noted and negative except for above Physical Exam Physical Exam: General- oriented x 3, not in distress, speaks in sentences with no effort or accessory muscle use Eyes- anicteric Neck- no JVD Lungs- clear breath sounds bilaterally, no rales/wheezes Heart- normal rate, regular rhythm; no murmurs Abdomen- normal bowel sounds, nondistended, soft, nontender Briceno catheter in place: Draining yellow urine Extremities- no pretibial edema, no calf tenderness Neuro- alert, oriented x 3; no gross focal neurologic deficits Skin- warm & dry Results & Data Results & Data Vital Signs (Past 12 Hours) Vital Signs Temp Pulse Pulse Resp BP Pulse Ox Pulse Ox 12/31/23 15:07 95 12/31/23 13:42 121/74 12/31/23 07:44 36.9 C 84 16 123/59 L 92 12/31/23 07:34 73 O2 Del Method O2 Flow Rate 12/31/23 15:07 0 12/31/23 13:42 12/31/23 07:44 Room Air 12/31/23 07:34 all noted and reviewed including below
[2023-12-31] MEDS: LORazepam 0.5 MG TAB PO STA (20:38)
[2023-12-31 23:23] LABS: A calco-baum cmplx NotReported Not Detected (NotDetected); Bact fragilis Not Reported Not Detected (NotDetected); Blood Culture Id Panel See PCR Comment (NotDetected); C auris Not Reported Not Detected (NotDetected); Calbicans Not Reported Not Detected (NotDetected); Candida glabrata Not Reported Not Detected (NotDetected); Candida krusei Not Reported Not Detected (NotDetected); Cneoformans/gatti Not Reported Not Detected (NotDetected); Cparapsilosis Not Reported Not Detected (NotDetected); E cloacae compx Not Reported Not Detected (NotDetected); Efaecalis Not Reported Not Detected (NotDetected); Efaecium Not Reported Not Detected (NotDetected); Enterobacterales Not Reported Not Detected (NotDetected); Escherichia coli Not Reported Not Detected (NotDetected); H influenzae Not Reported Not Detected (NotDetected); K aerogenes Not Reported Not Detected (NotDetected); Koxytoca Not Reported Not Detected (NotDetected); Kpneumoniae grp Not Reported Not Detected (NotDetected); Lmonocyt Not Reported Not Detected (NotDetected); N meningitidis Not Reported Not Detected (NotDetected); P aeruginosa Not Reported Not Detected (NotDetected); Proteus spp Not Reported Not Detected (NotDetected); Salmonella spp Not Reported Not Detected (NotDetected); Staph lugdunensis Not Reported Not Detected (NotDetected); Staph spp. Not Reported DETECTED (NotDetected); Staphaureus Not Reported Not Detected (NotDetected); Staphepi Not Reported DETECTED (NotDetected); Staphylococcus spp. DETECTED (NotDetected); Stenmaltophilia Not Reported Not Detected (NotDetected); Strep agal(GrpB) Not Reported Not Detected (NotDetected); Strep pneum Not Reported Not Detected (NotDetected); Strep pyog (GrpA) Not Reported Not Detected (NotDetected); Strep spp Not Reported Not Detected (NotDetected); mecAC Resistant Gene DETECTED (NotDetected)
[2024-01-01 00:17] LABS: Staphylococcus epidermidis DETECTED (NotDetected)
[2024-01-01] MEDS ORDERED: VANCOMYCIN CONSULT ACTIVE PRN (00:22)
[2024-01-01] MEDS: VANCOMYCIN HCL 2,500 MG in SODIUM CHLORIDE 0.9% 500 ML IV ONE (01:28)
[2024-01-01] MEDS: EPLERENONE 25MG TABLET PO SCH (08:00)
--- NOTE | 2024-01-01 08:55 | Urology Progress Note ---
Date of Service January 01, 2024 Assessment & Plan (1) Altered mental status: (2) Briceno catheter in place: (3) UTI (urinary tract infection): (4) Acute urinary retention: Plan 83yo/M who is s/p Cystolitholapaxy and Fulguration of Prostate 12/14/23 admitted with altered mental status and possible UTI. - Pt afebrile, hemodynamically stable. - Labs show a wbc of 8.97 and creatinine 1.79 (baseline cr 1.7-1.8). - Urine culture 12/28 negative. Blood cultures 07/10 gram positive cocci clusters, repeat pending. - Briceno cath repositioned yesterday and currently draining clear yellow urine. - No acute intervention warranted - Maintain Briceno catheter. Ok to hand irrigate as needed for clots, retention, suprapubic pain. - Continue antibiotics and tailor as culture data becomes available. - Continue Terazosin. Can consider addition of Finasteride for dual therapy for the prostate. - Can use oxybutynin PRN bladder spasms. - Will arrange outpatient follow-up with our service for cystoscopy, possible void trial, and further discussion of options. - Urology will follow peripherally. Please call with any questions or concerns. Admission and Anticipated Discharge Date Admission Date: December 29, 2023 Subjective Pt seen at bedside this AM Awake, sitting in bedside chair on arrival No acute distress Briceno draining clear yellow urine at present He denies any pain or discomfort at present Denies hematuria or dysuria Denies f/c/n/v Review of Systems Constitutional: as per Subjective / HPI Gastrointestinal: as per Subjective / HPI Genitourinary: + as per Subjective / HPI Physical Exam Constitutional: no acute distress Respiratory: no respiratory distress and no labored breathing Neurologic: moves all extremities and awake Psychiatric: A+Ox3, euthymic affect Genitourinary: Briceno intact Results & Data Vital Signs (Past 12 Hours) Vital Signs Temp Pulse Pulse Resp BP BP Pulse Ox 01/01/24 06:46 36.8 C 83 18 117/75 94 01/01/24 03:02 36.9 C 74 16 105/57 L 95 01/01/24 01:10 12/31/23 22:27 37.1 C 86 18 121/62 92 12/31/23 22:00 85 O2 Del Method 01/01/24 06:46 Room Air 01/01/24 03:02 Room Air 01/01/24 01:10 Room Air 12/31/23 22:27 Room Air 12/31/23 22:00 PG Care Time/CCT Total # of Minutes Spent Total Time Spent with Patient: Total time spent is greater than 50% in coordination of care (as documented) at patient's floor/unit and/or counseling patient: Coding Level of Care Code 86954 SUB INP/OBS CARE 2/35MIN Diagnoses Altered mental status R41.[address] Z97.8 UTI (urinary tract infection) N39.0 Acute urinary retention R33.8
[2024-01-01 09:16] LABS: BUN Creatinine Ratio 11.7 (10-20); Calcium 8.1 mg/dl (8.6-10.3); Est GFR (African American) 39.7 ml/min; Est GFR (Non-African American) 34.3 ml/min
[2024-01-01 09:26] LABS: Basophils # (auto) 0.06 K/uL (0.00-0.20); Basophils % (auto) 0.7 %; Echinocytes 1+; Eosinophils # (auto) 0.59 K/uL (0.00-0.50); Eosinophils % (auto) 6.6 %; Hemoglobin 13.5 g/dl (14.0-18.0); Immature Granulocytes # (auto) 0.04 K/uL (0.01-0.20); Immature Granulocytes % (auto) 0.4 %; Lymphocytes # (auto) 1.44 K/uL (1.20-3.40); Lymphocytes % (auto) 16.1 %; Mean Corpuscular Hemoglobin 32.2 pg (25.0-34.0); Mean Corpuscular Hgb Conc 33.8 g/dL (32.0-36.0); Mean Corpuscular Volume 95.5 fL (80.0-100.0); Mean Platelet Volume 11.2 fL (9.4-12.4); Monocytes # (auto) 0.84 K/uL (0.11-0.59); Monocytes % (auto) 9.4 %; Neutrophils % (auto) 66.8 %; Ovalocytes 1+; Platelet Count 221 K/uL (130-400); RDW Coefficient of Variation 14.2 % (11.5-14.5); RDW Standard Deviation 49.7 fL (36.4-46.3); Red Blood Count 4.19 M/uL (4.70-6.10); White Blood Count 8.97 K/ul (4.8-10.8)
[2024-01-01] MEDS: PERFLUTREN LIPID MICROSPHERE (DEFINITY) IV ONE (13:47)
--- NOTE | 2024-01-01 18:54 | Discharge Summary ---
Discharge Summary Date of Service January 01, 2024 Principal Dx & Hospital Course #1 = Principal Diagnosis (1) Altered mental status: (2) Chronic retention of urine: (3) UTI (urinary tract infection): (4) Fowler catheter in place: (5) CKD (chronic kidney disease), stage III: (6) Obstructive sleep apnea on CPAP: (7) Chronic diastolic CHF (congestive heart failure): (8) CAD (coronary artery disease): (9) Prolonged QT interval: (10) Atrial fibrillation: Plan This is an 83 y/o M with PMH PAF anticoagulated on Eliquis, chronic diastolic CHF, CAD, chronic LBBB, TBS s/p PPM, hx of PE, Hx of multiple myeloma, HTN, CKD III, BPH, depression, hypothyroidism, NAHEED, hx of PE, presented to ER 2/2 altered mental status. Acute metabolic encephalopathy in setting of CAUTI vs delirium in setting of poor sleep habits on dementia CA - Complicated UTI Fowler in place/Chronic retention Admitted to [facility] tele He is s/p Cystolithopaxy and fulguration of prostate on 12/[address] Kate Fowler cath placed, removed 12/21, reinserted 12/26 due to retention mild leukocytosis, UA with leukocytes mental status appears to be transient, as he appears improved on admission eval and also currently able to answer appropriately CT head - There is no hemorrhage, mass effect, or evidence of acute territorial ischemia by CT criteria. Carotid US - 1. There is no sonographic evidence of hemodynamically significant stenosis in the right or left carotid arterial system. 2. Antegrade flow is shown in the vertebral arteries. Will treat for possible UTI, blood cultures pending Pt reports poor sleep/lack there of the night before ? if delirium in setting of dementia pt will need close urology follow up Urology consulted - - No acute intervention warranted - Maintain Fowler catheter. - Continue antibiotics and tailor as culture data becomes available. - Continue Terazosin. Can consider addition of Finasteride for dual therapy for the prostate. - Patient/family are interested in possible outlet procedure. Will arrange outpatient follow-up with our service for cystoscopy, possible void trial, and further discussion of options. 12/30 Blood culture, urine culture: Negative so far Back to baseline mental status Fowler catheter replaced Neurology service on board CAD hx of Diastolic CHF HTN HLD chronic, stable euvolemic, daily weights, strict I and O continue torsemide, eplernone, metoprolol, statin, hydralazine last echo 2020 EF 54% PAF hx of TBS s/p PPM Prolonged QTC - avoid qTC prolonging meds continue metoprolol and eliquis CKD-3 chronic, stable baseline cr 1.7-1.8 bun/cr stable, avoid nephrotoxic agents follows [facility] nephro Thrush dx as outpt, improving complete course of nystatin Hypothyroidism chronic, stable TSH elevate at 6.84, will repeat tsh will obtain t4 continue levothyroxine NAHEED CPAP at HS MM follows w/ local cancer center DVT ppx: Eliquis FULL CODE PCP: Telma Jacobs Dispo: PT recommending home with home health services upon discharge Admission HPI Per Admitting Provider This is an 83 y/o M with PMH PAF anticoagulated on Eliquis, chronic diastolic CHF, CAD, chronic LBBB, TBS s/p PPM, hx of PE, Hx of multiple myeloma, HTN, CKD III, BPH, depression, hypothyroidism, NAHEED, hx of PE, & Dementia presented to ER 2/2 altered mental status. Of significance patient was recently hospitalized on 12/11 to 12/15 secondary to altered mental status and abdominal pain. CT scan of abdomen pelvis revealed a bladder stone resulting in a cystolitholopaxy with fulguration of prostate. He was discharged with a Fowler catheter in place and started on oxybutynin and completed a course of ciprofloxacin. There is no clear source of patient's altered mental status although it did eventually resolve. He was discharged home. His outpatient records were reviewed. He was seen in clinic on 12/18 for hospital follow-up. He was seen again on 12/25 sec ondary to sore throat. This was felt to be secondary to thrush and he was started on nystatin. His strep screen was negative. Family reported symptoms of, "zoning out." His hydroxyzine was stopped. He had a urine culture obtained which resulted in no significant growth. 12/22/23 and had his Fowler removed. He initially did well but then was having difficulty urinating. He states he did not get any sleep last night. This morning he felt, " in another world." When he woke up he had pain in his stomach and he had dizziness. "I just didn't feel well." The abd pain started yesterday. He denies flank pain. He was in ED a few days ago due to abdominal pain. He had a CT scan that showed his fowler cath and large bladder stone was removed. There was no acute abnormalities. He denies any f/c/s, chest pain, sob, cough, uri sx, n/v. He had 2 episodes of loose stool yesterday. He has not had anything to eat yet today. His appetite has been normal. He took his morning medications. Son is at bedside who also helps elicit history. Pt lives with his daughter. He was fine this morning before she went to work. He called 30 minutes after she got to work stating he didn't feel good and daughter felt he was confused. Pt states similar sx in past associated with infection. His daughter helps him with his medications. He walks with a walker and denies fall. Updated Medication List Medication Instructions Recorded Confirmed Type allopurinol 300 mg tablet 300 mg PO QAM 04/30/18 12/29/23 History atorvastatin 10 mg tablet 5 mg PO QAM 04/30/18 12/29/23 History cholecalciferol (vitamin D3) 50 2,000 unit PO QAM 04/30/18 12/29/23 History mcg (2,000 unit) capsule (Vitamin D3) omeprazole 40 mg capsule,delayed 40 mg PO DAILY 04/30/18 12/29/23 History release terazosin 5 mg capsule 5 mg PO HS 04/30/18 12/29/23 History montelukast 10 mg tablet 10 mg PO QAM 05/07/21 12/29/23 History apixaban 2.5 mg tablet (Eliquis) 2.5 mg PO BID #60 tabs 07/13/21 12/29/23 Rx diphenoxylate-atropine 2.5 1 tab PO QID PRN Diarrhea 07/10/22 12/29/23 History mg-0.025 mg tablet magnesium oxide 400 mg PO BID #60 caps 12/01/22 12/29/23 Rx calcium carbonate 1,500 mg PO BID 01/23/23 12/29/23 History cyanocobalamin (vitamin B-12) 1,000 mcg PO DAILY 01/23/23 12/29/23 History 1,000 mcg tablet eplerenone 25 mg tablet 12.5 mg PO .HOLD 01/23/23 12/29/23 History triamcinolone acetonide 0.1 % 1 applic topical BID PRN flare up 01/23/23 12/29/23 History topical cream acyclovir 400 mg tablet 400 mg PO BID 03/28/23 12/29/23 History albuterol sulfate 90 mcg/actuation 2 puff inhalation QID PRN 03/28/23 12/29/23 History aerosol inhaler Shortness Of Breath Or Wheezing potassium chloride 20 mEq 20 meq PO DAILY 10/10/23 12/29/23 History tablet,extended release hydralazine 25 mg tablet 25 mg PO .HOLD 12/08/23 12/29/23 History levothyroxine 75 mcg tablet 75 mcg PO QAM 12/08/23 12/29/23 History metoprolol succinate 50 mg 50 mg PO BID 12/08/23 12/29/23 History tablet,extended release 24 hr torsemide 20 mg tablet 40 mg PO QAM 12/08/23 12/29/23 History oxybutynin chloride 5 mg tablet 5 mg PO BID PRN bladder spasms #20 12/16/23 12/29/23 Rx tabs nystatin 100,000 unit/mL oral 5 ml PO QID 12/29/23 12/29/23 History suspension lorazepam 0.5 mg tablet (Ativan) 0.25 mg (1/2 x 0.5 mg) PO DAILY 01/01/24 Rx PRN anxiety #10 tabs Hospital Stay Data Consultations 12/29/23 13:17 ED Decision to Admit Stat 12/29/23 14:45 Consult Urology Routine Diagnostic Imagining Performed 12/29/23 13:41 CT head/brain wo con Stat 12/29/23 13:49 Carotid duplex [US carotid doppler BI] Stat Pending Results Patient Have Any Pending Studies at Discharge: No Discharge Instructions Given to Patient (Per Discharging Provider) PLEASE REFER TO YOUR NEW MEDICATION LIST AND FOLLOW INSTRUCTIONS CAREFULLY. YOUR NEW MEDICATIONS INCLUDE: Ativan- as needed for severe anxiety - always supervise patient while taking this medication - do not take with other sedating medications including benadryl, etc. PLEASE CALL YOUR PRIMARY CARE PHYSICIAN OR RETURN TO THE ER IF WITH WORSENING OF SYMPTOMS, INCLUDING change in mental status, fever/chills, abdominal pain, weakness, nausea/vomiting, chest pain, shortness of breath, palpitations, dizziness, etc FOLLOW UP WITH PRIMARY CARE PHYSICIAN IN 1 WEEK. FOLLOW UP WITH UROLOGIST SCHEDULED.
== END 2024-01-01 17:38 | disposition home health service (06) | DRG 699 ==
LOC: ED 10:05 → SUATTDRO 12:54 → EDINP 12:54 → 2N 12-30 16:15

== ENCOUNTER 2024-03-11 16:44 | Inpatient (IN) ==
--- NOTE | 2024-03-11 17:17 | Emergency Department Note ---
Impression & Plan Acute dyspnea, Acute hypoxemic respiratory failure, Acute exacerbation of CHF (congestive heart failure), Pulmonary edema, Elevated brain natriuretic peptide (BNP) level, Acute respiratory acidosis ED Provider Note HISTORY OF PRESENT ILLNESS: Patient is an 83-year-old male presenting with shortness of breath. Patient reports that since waking up today he has been profoundly short of breath. He took his pulse ox at home and found to saturations to be in the 80s. He does not wear any supplemental oxygen at baseline. Reports his shortness of breath is worse with any sort of movement. He states he walks with a walker and can take about 10 steps but then has to stop before he becomes very winded. He denies any lightheadedness or dizziness. Denies any chest pain. He has a history of A-fib and is on Eliquis. Denies any missed doses. Denies any DVT or PE history. Denies any history of cardiac stents. He denies any lower extremity edema. He reports that earlier today he was having some lower abdominal pain that seem to "take the wind out of me." Denies any dysuria or hematuria. ROS: as above PHYSICAL EXAM: Constitutional: Patient appears in no acute distress. HENT: Head: Normocephalic and atraumatic. Eyes: EOMI, PERRL Mouth/Throat: Mucous membranes moist. Neck: Trachea midline. Neck supple. Cardiovascular: Irregular rhythm. No murmurs, rubs or gallops. Intact distal pulses. Pulmonary/Chest: No respiratory distress. Breath sounds clear and equal bilaterally. No wheezes or rales. Patient is tachypneic. Abdominal: Abdomen soft, no tenderness, rebound or guarding. Musculoskeletal: No edema, tenderness or deformity noted. Skin: Warm and dry. No rash, erythema, pallor or cyanosis Psychiatric: Appropriate mood and affect for situation. Neurological: Alert and keenly responsive. CN II-XII grossly intact, moving all extremities equally and fully. MDM: - Vitals signs showed hypoxic on room air. Patient placed on 3 L nasal cannula with saturations above 93%. - History obtained via patient. History as above. - Chronic conditions affecting care: multiple myeloma; CHF; Afib; hx of PE; CKD; LBBB; HTN - Differential diagnoses include, but are not limited to: Congestive heart failure; acute coronary syndrome; COPD/asthma exacerbation; pulmonary edema; pulmonary embolism; pneumonia; pneumothorax; viral syndrome - Order placed for continuous cardiac monitoring. At this time, monitor showed rate of 77 bpm with irregular rhythm, per my interpretation. - External medical records reviewed. Echocardiogram dated 01/01/2024 was reviewed. Patient had an EF of 55 to 60%. - EKG interpreted by myself showed atrial fibrillation. Rate 75 bpm. QTc 434. No acute ischemic changes. - Laboratory workup interpreted by myself showed normal WBC; stable electrolytes other than slight hypocalcemia (Ca 7.4); CKD; normal troponin; elevated BNP (110) - Viral respiratory panel negative - VBG shows respiratory acidosis (pH 7.31; pCO2 76) - CXR showed pulmonary edema, per my interpretation. - Patient given 40 mg IV lasix in ER. - Patient's oxygen saturation remained stable on 3 L nasal cannula. - Discussion was had with case assembler about patient's case and need for admission - Hospitalist, Dr. Pineda, consulted for admission - Patient admitted to [facility] service for further evaluation and management. I have personally spent 62 minutes of critical care time in the direct management of this patient. This includes bedside care, interpretation of diagnostic studies, and testing, discussion with consultants, patient, and family members, and other required patient management activities. This 62 minutes is in excess of all separately billable procedures. ASSESSMENT AND PLAN: Diagnosis: acute dyspnea; acute hypoxemic respiratory failure; acute CHF exacerbation; pulmonary edema; elevated BNP; acute respiratory acidosis Plan: admit Past Med/Surg History Problem List (Updated 03/11/24 @ 20:08 by Dedra Le MD) Acute respiratory acidosis (Acute) Elevated brain natriuretic peptide (BNP) level (Acute) Pulmonary edema (Acute) Acute exacerbation of CHF (congestive heart failure) (Acute) Acute hypoxemic respiratory failure (Acute) Acute dyspnea (Acute) Acute delirium (Acute) 12/29/23 Altered mental status 12/29/23 Chronic retention of urine (Chronic) Multiple myeloma (Acute) Bladder calculi (Acute) Lower abdominal pain (Acute) 12/12/23 Confusion (Acute) 12/12/23 Cardiac pacemaker in situ Nausea (Acute) 01/28/23 Abdominal pain (Acute) 01/28/23 Breathlessness (Acute) 01/28/23 Confusion 01/23/23 Hypoxia (Acute) 01/23/23 Acute on chronic diastolic heart failure with preserved ejection fraction 01/23/23 Monoclonal paraproteinemia Hypomagnesemia Exertional shortness of breath 11/29/22 Atrial fibrillation with rapid ventricular response (Acute) Anemia duplicate Encounter for pre-operative examination DVT prophylaxis Dysphagia Respiratory failure with hypoxia 07/15/21 Pneumonia due to COVID-19 virus 07/15/21 UTI (urinary tract infection) (Acute) 07/15/21 Anemia (Acute) Acute on chronic diastolic CHF (congestive heart failure) 05/07/21 History of pulmonary embolism Pleural effusion, left 05/07/21 Pericardial effusion 05/07/21 Monoclonal B-cell lymphocytosis Atrial fibrillation BPH (benign prostatic hyperplasia) History of hip surgery H/O knee surgery Morbid (severe) obesity due to excess calories CKD (chronic kidney disease), stage III LBBB (left bundle branch block) ? 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 Bladder calculi History of anemia Hx of gout Sleep apnea Confusion Chronic diarrhea Anxiety and depression Multiple myeloma (2018) SOB (shortness of breath) History of pulmonary embolism History of DVT (deep vein thrombosis) Thrombocytopenia Pneumonia due to COVID-19 virus Atrial fibrillation with rapid ventricular response (05/2021) 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 Chronic diastolic CHF (congestive heart failure) Chronic sinusitis Hypothyroidism CAD (coronary artery disease) Klebsiella infection Escherichia coli infection Nonobstructive atherosclerosis of coronary artery (05/2010) Neuralgia Hyperlipidemia History of paroxysmal supraventricular tachycardia Prolonged QT interval GERD (gastroesophageal reflux disease) BPH without obstruction/lower urinary tract symptoms Carpal tunnel syndrome Restless leg syndrome Surgical History History of cystoscopy (12/14/23) History of surgery (07/2019) History of cardiac cath (2009) History of revision of total knee arthroplasty History of pacemaker (06/2021) History of thoracentesis (07/2019) History of appendectomy (05/2019) History of esophagogastroduodenoscopy (EGD) (07/2022) History of colonoscopy (07/2022) History of tooth extraction History of cataract surgery History of total right hip arthroplasty H/O sinus surgery History of bilateral knee arthroplasty Hx of cholecystectomy Family History Father Heart disease Mother Diabetes Hypertension Brother Family hx of colon cancer Brother Family hx of colon cancer Social History Smoking Status: Never smoker Second Hand Exposure: Yes ( smoked); Do You Dip or Chew Tobacco: No; Hx Alcohol Use: No Hx Substance Use: No Preferred Language: Azeri Communication Ability: Effective Communication Ability Comment: PT DAUGHTER SHADY DAY, SIGNS CONSENTS (PT LIMITED COMPREHENSION) Table Tender Sludge Required: No Beliefs That Will Affect Care: None marital status: Current Living Situation: Family Current Living Situation Comment: lives with and daughter How many Children do You have: 2 Feels Safe at Home: Yes Assistive Devices: Cane, CPAP, Denture - Upper, Denture - Lower, Nebulizer and Walker Allergies Allergies Allergy/AdvReac Type Severity Reaction Status Date / Time COVID-19 vaccine, mRNA, AdvReac Unknown probable Verified 03/11/24 20:00 [id number], L reaction: [From [place] ()] throat swelling Home Meds Home Medications Medication Instructions Recorded Confirmed allopurinol 300 mg tablet 300 mg PO QAM 04/30/18 01/29/24 atorvastatin 10 mg tablet 5 mg PO QAM 04/30/18 01/29/24 cholecalciferol (vitamin D3) 50 2,000 unit PO QAM 04/30/18 01/29/24 mcg (2,000 unit) capsule (Vitamin D3) omeprazole 40 mg capsule,delayed 40 mg PO QAM 04/30/18 01/29/24 release terazosin 5 mg capsule 5 mg PO HS 04/30/18 01/29/24 montelukast 10 mg tablet 10 mg PO QAM 05/07/21 01/29/24 diphenoxylate-atropine 2.5 1 tab PO QID PRN Diarrhea 01/04/23 07/25/24 mg-0.025 mg tablet (Lomotil) cyanocobalamin (vitamin B-12) 1,000 mcg PO Q2D 01/23/23 01/29/24 1,000 mcg tablet triamcinolone acetonide 0.1 % 1 applic topical BID PRN flare up 01/23/23 01/29/24 topical cream acyclovir 400 mg tablet 400 mg PO BID 03/28/23 01/29/24 albuterol sulfate 90 mcg/actuation 2 puff inhalation QID PRN 03/28/23 01/29/24 aerosol inhaler Shortness Of Breath Or Wheezing potassium chloride 20 mEq 20 meq PO QAM 10/10/23 01/29/24 tablet,extended release levothyroxine 75 mcg tablet 75 mcg PO QAM 12/08/23 01/29/24 metoprolol succinate 50 mg 50 mg PO BID 12/08/23 01/29/24 tablet,extended release 24 hr torsemide 20 mg tablet 40 mg PO QAM 12/08/23 01/29/24 Previous Rx's Medication Instructions Recorded apixaban 2.5 mg tablet (Eliquis) 2.5 mg PO BID #60 tabs 07/13/21 magnesium oxide 400 mg PO BID #60 caps 12/01/22 lorazepam 0.5 mg tablet (Ativan) 0.25 mg (1/2 x 0.5 mg) PO DAILY 01/01/24 PRN anxiety #10 tabs ciprofloxacin HCl 500 mg tablet 500 mg PO Q12H #14 tabs 01/29/24 (Cipro) Results & Data (ED) Vital Signs Vital Signs - 24 hr 03/11/24 16:48 03/11/24 16:48 03/11/24 17:00 Temperature 36.8 C Temperature Source Oral Pulse Rate 77 77 Pulse Rate [Apical] Pulse Rate from SpO2 Sensor Pulse Rhythm Regular Regular Pulse Rhythm [Apical] Pulse Strength Normal Pulse Strength [Apical] Respiratory Rate 28 H 28 H Respiratory Effort / Characteristics Labored Respiratory Depth Shallow Respiratory Pattern Tachypnea Blood Pressure 121/81 123/69 Blood Pressure [Right Arm] Blood Pressure Mean 94 94 Blood Pressure Mean [Right Arm] Blood Pressure Position Lying Blood Pressure Position [Right Arm] Pulse Oximetry 88 L 88 L Oxygen Delivery Method Room Air Room Air Oxygen Flow Rate Sepsis Recent Fever Within 48 Hours No Sepsis New/Unexplained Change in Mental Status No Sepsis Action Taken by Nursing No Action Required 03/11/24 17:02 03/11/24 17:02 03/11/24 17:02 Temperature Temperature Source Pulse Rate Pulse Rate [Apical] 77 Pulse Rate from SpO2 Sensor Pulse Rhythm Pulse Rhythm [Apical] Regular Pulse Strength Pulse Strength [Apical] Normal Respiratory Rate 28 H Respiratory Effort / Characteristics Labored Labored Respiratory Depth Shallow Shallow Respiratory Pattern Tachypnea Tachypnea Blood Pressure Blood Pressure [Right Arm] 121/81 Blood Pressure Mean Blood Pressure Mean [Right Arm] 94 Blood Pressure Position Blood Pressure Position [Right Arm] Lying Pulse Oximetry 96 Oxygen Delivery Method Nasal Cannula Nasal Cannula Nasal Cannula Oxygen Flow Rate 4 4 4 Sepsis Recent Fever Within 48 Hours Sepsis New/Unexplained Change in Mental Status Sepsis Action Taken by Nursing 03/11/24 17:03 03/11/24 17:06 03/11/24 17:30 Temperature Temperature Source Pulse Rate 70 74 64 Pulse Rate [Apical] Pulse Rate from SpO2 Sensor 72 69 Pulse Rhythm Pulse Rhythm [Apical] Pulse Strength Pulse Strength [Apical] Respiratory Rate 18 24 Respiratory Effort / Characteristics Respiratory Depth Respiratory Pattern Blood Pressure Blood Pressure [Right Arm] Blood Pressure Mean Blood Pressure Mean [Right Arm] Blood Pressure Position Blood Pressure Position [Right Arm] Pulse Oximetry 99 99 Oxygen Delivery Method Nasal Cannula Nasal Cannula Oxygen Flow Rate 3 3 Sepsis Recent Fever Within 48 Hours Sepsis New/Unexplained Change in Mental Status Sepsis Action Taken by Nursing 03/11/24 18:21 03/11/24 18:36 03/11/24 19:00 Temperature Temperature Source Pulse Rate 75 68 Pulse Rate [Apical] Pulse Rate from SpO2 Sensor 70 69 Pulse Rhythm Pulse Rhythm [Apical] Pulse Strength Pulse Strength [Apical] Respiratory Rate 17 20 Respiratory Effort / Characteristics Respiratory Depth Respiratory Pattern Blood Pressure 118/93 Blood Pressure [Right Arm] Blood Pressure Mean 97 Blood Pressure Mean [Right Arm] Blood Pressure Position Blood Pressure Position [Right Arm] Pulse Oximetry 98 98 Oxygen Delivery Method Nasal Cannula Nasal Cannula Oxygen Flow Rate 3 3 Sepsis Recent Fever Within 48 Hours Sepsis New/Unexplained Change in Mental Status Sepsis Action Taken by Nursing 03/11/24 19:06 03/11/24 19:33 Temperature Temperature Source Pulse Rate 76 77 Pulse Rate [Apical] Pulse Rate from SpO2 Sensor 77 78 Pulse Rhythm Pulse Rhythm [Apical] Pulse Strength Pulse Strength [Apical] Respiratory Rate 21 24 Respiratory Effort / Characteristics Respiratory Depth Respiratory Pattern Blood Pressure Blood Pressure [Right Arm] Blood Pressure Mean Blood Pressure Mean [Right Arm] Blood Pressure Position Blood Pressure Position [Right Arm] Pulse Oximetry 98 99 Oxygen Delivery Method Nasal Cannula Nasal Cannula Oxygen Flow Rate 3 3 Sepsis Recent Fever Within 48 Hours Sepsis New/Unexplained Change in Mental Status Sepsis Action Taken by Nursing Laboratory Data 03/11/24 15:35 03/11/24 15:35 Lab Results 03/11/24 03/11/24 Range/Units 15:35 17:13 WBC 5.54 (4.8-10.8) K/ul RBC 4.05 L (4.70-6.10) M/uL Hgb 12.9 L (14.0-18.0) g/dl Hct 38.3 L (42.0-52.0) % MCV 94.6 (80.0-100.0) fL MCH 31.9 (25.0-34.0) pg MCHC 33.7 (32.0-36.0) g/dL RDW Std Deviation 51.8 H (36.4-46.3) fL RDW Coeff of [place] 14.8 H (11.5-14.5) % Plt Count 168 (130-400) K/uL MPV 11.6 (9.4-12.4) fL Immature Gran % (Auto) 0.2 % Neut % (Auto) 55.2 % Lymph % (Auto) 24.7 % [place] % (Auto) 11.6 % Eos % (Auto) 7.2 % Baso % (Auto) 1.1 % Neut # (Auto) 3.06 (1.40-6.50) K/uL Lymph # (Auto) 1.37 (1.20-3.40) K/uL [place] # (Auto) 0.64 H (0.11-0.59) K/uL Eos # (Auto) 0.40 (0.00-0.50) K/uL Baso # (Auto) 0.06 (0.00-0.20) K/uL Immature Gran # (Auto) 0.01 (0.01-0.20) K/uL PT 10.2 (9.0-12.0) Seconds INR 0.9 (0.9-1.1) VBG pH 7.31 L (7.36-7.41) VBG pCO2 76 H (38-50) mmHg VBG pO2 27 mmHg VBG HCO3 38 mmol/L VBG O2 Saturation < 60.0 % VBG Base Excess 9.0 mEq/L Sodium 144 (136-145) mmol/L Potassium 4.2 (3.5-5.1) mmol/L Chloride 101 (98-107) mmol/L Carbon Dioxide 36 H (21-32) mmol/L Anion Gap 7 (3-11) BUN 23 (6-23) mg/dl Creatinine 1.72 H (0.6-1.4) mg/dl Est Cr Clr Drug Dosing 41.8 ml/min Est GFR ( Amer) 41.7 ml/min Est GFR (Non-Af Amer) 36.0 ml/min BUN/Creatinine Ratio 13.4 (10-20) Glucose 126 H (70-99(Fasting)) mg/dl Calcium 7.4 L (8.6-10.3) mg/dl Magnesium 1.9 (1.7-2.4) mg/dl Total Bilirubin 0.6 (0.2-1.0) mg/dl AST 20 (13-39) U/L ALT 11 (7-52) U/L Alkaline Phosphatase 71 (34-104) U/L Troponin I High Sens 9.4 (0-20) pg/ml B-Natriuretic Peptide 110 H (0-100) pg/ml Total Protein 6.2 (6.0-8.3) gm/dl Albumin 3.8 (3.4-5.0) gm/dl Globulin 2.4 L (2.5-4.0) gm/dl Albumin/Globulin Ratio 1.6 (0.9-2) Adenovirus (PCR) Not Detected (NotDetected) B. pertussis DNA (PCR) Not Detected (NotDetected) B.parapertussis DNA PCR Not Detected (NotDetected) C. pneumoniae DNA (PCR) Not Detected (NotDetected) Coronavirus OC43 (PCR) Not Detected (NotDetected) Coronavirus HKU1 (PCR) Not Detected (NotDetected) Coronavirus 229E (PCR) Not Detected (NotDetected) SARS-CoV-2 (PCR) Not Detected (NotDetected) Coronavirus NL63 (PCR) Not Detected (NotDetected) Human Metapneumovir PCR Not Detected (NotDetected) Influenza Type A (PCR) Not Detected (NotDetected) Influenza Type B (PCR) Not Detected (NotDetected) M. pneumoniae (PCR) Not Detected (NotDetected) Parainfluenza 1 (PCR) Not Detected (NotDetected) Parainfluenza 2 (PCR) Not Detected (NotDetected) Parainfluenza 3 (PCR) Not Detected (NotDetected) Parainfluenza 4 (PCR) Not Detected (NotDetected) RSV (PCR) Not Detected (NotDetected) Entero/Rhino (PCR) Not Detected (NotDetected) Administered Medications Discontinued Medications Furosemide (Furosemide 40 Mg/4 Ml Vial) 40 mg IV ONE ONE Stop: 03/11/24 18:59 Last Admin: 03/11/24 19:26 Dose: 40 mg Documented By: BELKYS Imaging Data Radiologist's Impression: Chest X-Ray 03/11/24 16:48 XR chest 1V portable HISTORY: 83 years-old Male Dyspnea acute shortness of breath COMPARISON: 12/29/2023 TECHNIQUE: AP view the chest FINDINGS: Cardiac silhouette is enlarged. Dual-lead left subclavian pacer. Mild right hemidiaphragmatic elevation. Pulmonary vascular congestion with interstitial coarsening and hypoinflation. Bones appear grossly intact. IMPRESSION: Cardiomegaly with pulmonary vascular congestion and possible mild pulmonary edema. ACT 112: Negative or not required by law. The above report was generated using voice recognition software. It may contain grammatical, syntax or spelling errors. Electronically signed by: Luis M Mortensen M.D. 03/11/2024 5:17 PM Discharge Plan Visit Data Chief Complaint: Shortness of Breath/Dyspnea Stated Complaint: SOB ED Provider: Dedra Le Discharge Problem: Acute dyspnea, Acute hypoxemic respiratory failure, Acute exacerbation of CHF (congestive heart failure), Pulmonary edema, Elevated brain natriuretic peptide (BNP) level, Acute respiratory acidosis Forms Stand Alone Forms: [facility] Management Prescriptions Prescriptions: No Action albuterol sulfate 90 mcg/actuation HFA aerosol inhaler 2 puff inhalation QID PRN (Reason: Shortness Of Breath Or Wheezing) Rx Instructions: Unable to verify medication at this date/time acyclovir 400 mg tablet 400 mg PO BID terazosin 5 mg Capsule 5 mg PO HS atorvastatin 10 mg Tablet 5 mg PO QAM Rx Instructions: TAKE HALF A TABLET DAILY omeprazole 40 mg Capsule,Delayed Release(Dr/Ec) 40 mg PO QAM allopurinol 300 mg Tablet 300 mg PO QAM cholecalciferol (vitamin D3) [Vitamin D3] 2,000 unit Capsule 2,000 unit PO QAM Rx Instructions: Unable to verify OTC meds at this date/time. magnesium oxide 400 mg magnesium capsule 400 mg PO BID Qty: 60 0RF Rx Instructions: Unable to verify OTC meds at this date/time. potassium chloride 20 mEq tablet extended release 20 meq PO QAM cyanocobalamin (vitamin B-12) 1,000 mcg Tablet 1,000 mcg PO Q2D Rx Instructions: Unable to verify OTC meds at this date/time. triamcinolone acetonide 0.1 % cream 1 applic TOPICAL BID PRN (Reason: flare up) montelukast 10 mg tablet 10 mg PO QAM Eliquis 2.5 mg Tablet 2.5 mg PO BID Qty: 60 0RF diphenoxylate-atropine [Lomotil] 2.5-0.025 mg Tablet 1 tab PO QID PRN (Reason: Diarrhea) torsemide 20 mg tablet 40 mg PO QAM metoprolol succinate 50 mg tablet extended release 24 hr 50 mg PO BID levothyroxine 75 mcg tablet 75 mcg PO QAM lorazepam [Ativan] 0.5 mg tablet 0.25 mg PO DAILY PRN (Reason: anxiety) Qty: 10 0RF ciprofloxacin HCl [Cipro] 500 mg tablet 500 mg PO Q12H Qty: 14 0RF Referrals Referrals: Telma Jacobs CRNP [Primary Care Provider] -
--- NOTE | 2024-03-11 17:18 | XRay Report ---
XR chest 1V portable HISTORY: 83 years-old Male Dyspnea acute shortness of breath COMPARISON: 12/29/2023 TECHNIQUE: AP view the chest FINDINGS: Cardiac silhouette is enlarged. Dual-lead left subclavian pacer. Mild right hemidiaphragmatic elevati on. Pulmonary vascular congestion with interstitial coarsening and hypoinflation. Bones appear grossl y intact. IMPRESSION: Cardiomegaly with pulmonary vascular congestion and possible mild pulmonary edema. ACT 112: Negative or not required by law. The above report was generated using voice recognition software. It may contain grammatical, syntax o r spelling errors. Electronically signed by: Luis M Mortensen M.D. 03/11/2024 5:17 PM
[2024-03-11 17:56] LABS: HCO3 VBG 38 mmol/L; Oxygen Saturation VBG < 60.0 %; PCO2 VBG 76 mmHg (38-50); PO2 VBG 27 mmHg; pH VBG 7.31 (7.36-7.41)
[2024-03-11 18:04] LABS: Basophils # (auto) 0.06 K/uL (0.00-0.20); Basophils % (auto) 1.1 %; Eosinophils % (auto) 7.2 %; Hematocrit (blood only) 38.3 % (42.0-52.0); Hemoglobin 12.9 g/dl (14.0-18.0); Immature Granulocytes # (auto) 0.01 K/uL (0.01-0.20); Immature Granulocytes % (auto) 0.2 %; Lymphocytes # (auto) 1.37 K/uL (1.20-3.40); Lymphocytes % (auto) 24.7 %; Mean Corpuscular Hemoglobin 31.9 pg (25.0-34.0); Mean Corpuscular Hgb Conc 33.7 g/dL (32.0-36.0); Mean Corpuscular Volume 94.6 fL (80.0-100.0); Mean Platelet Volume 11.6 fL (9.4-12.4); Monocytes # (auto) 0.64 K/uL (0.11-0.59); Monocytes % (auto) 11.6 %; Neutrophils # (auto) 3.06 K/uL (1.40-6.50); Neutrophils % (auto) 55.2 %; Platelet Count 168 K/uL (130-400); RDW Coefficient of Variation 14.8 % (11.5-14.5); RDW Standard Deviation 51.8 fL (36.4-46.3); Red Blood Count 4.05 M/uL (4.70-6.10); White Blood Count 5.54 K/ul (4.8-10.8)
[2024-03-11 18:13] LABS: Adenovirus PCR Not Detected (NotDetected); Bordetella parapertussis PCR Not Detected (NotDetected); Bordetella pertussis PCR Not Detected (NotDetected); Chlamydia pneumoniae PCR Not Detected (NotDetected); Coronavirus 229E PCR Not Detected (NotDetected); Coronavirus CoV-2 (COVID19)PCR Not Detected (NotDetected); Coronavirus HKU1 PCR Not Detected (NotDetected); Coronavirus NL63 PCR Not Detected (NotDetected); Coronavirus OC43PCR Not Detected (NotDetected); Human Metapneumovirus PCR Not Detected (NotDetected); Influenza A PCR Not Detected (NotDetected); Influenza B PCR Not Detected (NotDetected); Mycoplasma pneumoniae PCR Not Detected (NotDetected); Parainfluenza Virus 1 PCR Not Detected (NotDetected); Parainfluenza Virus 2 PCR Not Detected (NotDetected); Parainfluenza Virus 3 PCR Not Detected (NotDetected); Parainfluenza Virus 4 PCR Not Detected (NotDetected); Respiratory Syncytial VirusPCR Not Detected (NotDetected); Rhinovirus/Enterovirus PCR Not Detected (NotDetected)
[2024-03-11 18:21] LABS: Albumin Globulin Ratio 1.6 (0.9-2); Albumin Level 3.8 gm/dl (3.4-5.0); BUN Creatinine Ratio 13.4 (10-20); Bilirubin,Total 0.6 mg/dl (0.2-1.0); Calcium 7.4 mg/dl (8.6-10.3); Creatinine Clr Calc Pharmacy 41.8 ml/min; Est GFR (African American) 41.7 ml/min; Globulin 2.4 gm/dl (2.5-4.0); Magnesium 1.9 mg/dl (1.7-2.4); Potassium 4.2 mmol/L (3.5-5.1); Total Protein 6.2 gm/dl (6.0-8.3)
[2024-03-11 18:27] LABS: Troponin I High Sensitivity 9.4 pg/ml (0-20)
[2024-03-11 18:29] LABS: INR 0.9 (0.9-1.1); Prothrombin Time 10.2 Seconds (9.0-12.0)
[2024-03-11] MEDS: FUROSEMIDE 40 MG/4 ML VIAL IV ONE (19:26)
[2024-03-11] MEDS: MAGNESIUM SULFATE / D5W 1 GM/100 ML BAG IV ONE (20:26)
[2024-03-11] MEDS: ALBUT/IPRATROP 3MG/0.5MG NEB 3 ML VIAL NEB STA (20:26)
[2024-03-11] MEDS: FUROSEMIDE INJ 20 MG/2 ML VIAL IV ONE (20:26)
[2024-03-11 21:11] LABS: iSTAT Arterial Blood Gas HCO3 33 meg/L (19-24); iSTAT Arterial Blood Gas pCO2 56 mmHg (35-46); iSTAT Arterial Blood Gas pH 7.38 (7.35-7.45); iSTAT Arterial Blood Gas pO2 90 mmHg (80-95); iSTAT Carbon Dioxide 35 mmol/L (24-31); iSTAT Hematocrit 38 % (42-52); iSTAT Hemoglobin 12.9 g/dl (14.0-18.0); iSTAT Potassium 3.4 mmol/L (3.3-5.0); iSTAT Sodium 142 mmol/L (135-144)
[2024-03-11 21:31] LABS: Base Excess ABG 4.5 mEq/L (-9-1.8); HCO3 ABG 31 mmol/L (19-24); Oxygen Saturation ABG 97.9 % (90-95); PCO2 ABG 54 mmHg (35-46); PO2 ABG 98 mmHg (80-95); pH ABG 7.37 (7.35-7.45)
--- NOTE | 2024-03-11 21:38 | History & Physical Report ---
Date of Service March 11, 2024 Assessment & Plan (1) Acute hypoxemic respiratory failure: Plan: Hypoxemic, hypercapnic respiratory failure Secondary to decompensated heart failure History diastolic dysfunction ? Possibly from CPAP noncompliance hx nonobstructive CAD as per records chronic LBBB hypertension, stable hyperlipidemia recurrent AF/SSS status post PPM/pulmonary embolism on Eliquis CRI, creatinine at baseline chronic anemia, hemoglobin at baseline multiple myeloma status post Rx, in remission as per recent [facility] oncology note hypothyroidism, TSH slightly elevated with normal free T4 prediabetes, hemoglobin A1c of 6.06 December 2023 PCU Supplemental O2 Recheck blood gas given respiratory acidosis from initial draw BiPAP if with worsening respiratory acidosis Additional diuretic Rx dose for renal function Strict I/Os, daily weights, CHF education, fluid restriction Patient counseled regarding need for CPAP compliance. Needs follow-up with sleep medicine on discharge. Last visit was in 2018. Cardiology consult re: decompensated heart failure DVT prophylaxis. Eliquis Full code Patient's daughter requesting updates for providers. Ms. Kate Mead, contact #[phone]. Text document was generated using [employer] voice recognition software. It may contain grammatical or spelling errors. Kindly contact undersigned for clarification of any documentation item in question. History of Present Illness Chief Complaint: Shortness of breath, low oxygen Primary Care Provider: ASHER Eddy History obtained from patient and records. Medical history significant for chronic diastolic heart failure (EF 60 to 60% TTE 2023), nonobstructive CAD as per records, chronic LBBB, hypertension, hyperlipidemia, recurrent AF, SSS status post PPM, pulmonary embolism on Eliquis, NAHEED (currently CPAP noncompliant), CRI (baseline creatinine 1.7), c hronic anemia (baseline hemoglobin 12-13), multiple myeloma status post Rx, hypothyroidism, prediabetes, immunoglobulin deficiency, GERD, RLS, mood disorder, history recurrent C. difficile. 2 admissions in December 2023. Recent confinement last week of December for encephalopathy in the setting of complicated UTI, following prostate surgery. 1 week history of intermittent shortness of breath somewhat worse on exertion. No chest pain, no cough. Compliant with home meds. Not sure about weight gain or fluid retention at home. Denies headache or abdominal pain. Not compliant with CPAP the last 6 months. Home pulse ox 60s to 70s. Patient seen at PCP's office today. Pulse ox noted to be 70s at the office. EMS called to PCPs office. IV Lasix administered at the ER. 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 Allergies Allergy/AdvReac Type Severity Reaction Status Date / Time COVID-19 vaccine, mRNA, AdvReac Unknown probable Verified 03/11/24 20:00 [id number], L reaction: [From [place] ()] throat swelling Home Medications Medication Instructions Recorded Confirmed Type allopurinol 300 mg tablet 300 mg PO QAM 04/30/18 03/11/24 History atorvastatin 10 mg tablet 5 mg PO QAM 04/30/18 03/11/24 History cholecalciferol (vitamin D3) 50 2,000 unit PO QAM 04/30/18 03/11/24 History mcg (2,000 unit) capsule (Vitamin D3) omeprazole 40 mg capsule,delayed 40 mg PO HS 04/30/18 03/11/24 History release terazosin 5 mg capsule 5 mg PO HS 04/30/18 03/11/24 History montelukast 10 mg tablet 10 mg PO QAM 05/07/21 03/11/24 History apixaban 2.5 mg tablet (Eliquis) 2.5 mg PO BID #60 tabs 07/13/21 03/11/24 Rx diphenoxylate-atropine 2.5 1 tab PO QID PRN Diarrhea 07/10/22 03/11/24 History mg-0.025 mg tablet (Lomotil) magnesium oxide 400 mg PO BID #60 caps 12/01/22 03/11/24 Rx cyanocobalamin (vitamin B-12) 1,000 mcg PO Q2D 01/23/23 03/11/24 History 1,000 mcg tablet triamcinolone acetonide 0.1 % 1 applic topical BID PRN flare up 01/23/23 03/11/24 History topical cream acyclovir 400 mg tablet 400 mg PO BID 03/28/23 03/11/24 History albuterol sulfate 90 mcg/actuation 2 puff inhalation QID PRN 03/28/23 03/11/24 History aerosol inhaler Shortness Of Breath Or Wheezing potassium chloride 20 mEq 20 meq PO QAM 10/10/23 03/11/24 History tablet,extended release levothyroxine 75 mcg tablet 75 mcg PO QAM 12/08/23 03/11/24 History metoprolol succinate 50 mg 50 mg PO BID 12/08/23 03/11/24 History tablet,extended release 24 hr torsemide 20 mg tablet 40 mg PO QAM 12/08/23 03/11/24 History lorazepam 0.5 mg tablet (Ativan) 0.25 mg (1/2 x 0.5 mg) PO DAILY 01/01/24 03/11/24 Rx PRN anxiety #10 tabs duloxetine 60 mg capsule,delayed 60 mg PO QAM 03/11/24 03/11/24 History release trazodone 100 mg tablet 100 mg PO HS 03/11/24 03/11/24 History Past Med/Surg History Problem List (Updated 03/11/24 @ 20:08 by Dedra Le MD) Acute respiratory acidosis (Acute) Elevated brain natriuretic peptide (BNP) level (Acute) Pulmonary edema (Acute) Acute exacerbation of CHF (congestive heart failure) (Acute) Acute hypoxemic respiratory failure (Acute) Acute dyspnea (Acute) Acute delirium (Acute) 12/29/23 Altered mental status 12/29/23 Chronic retention of urine (Chronic) Multiple myeloma (Acute) Bladder calculi (Acute) Lower abdominal pain (Acute) 12/12/23 Confusion (Acute) 12/12/23 Cardiac pacemaker in situ Nausea (Acute) 01/28/23 Abdominal pain (Acute) 01/28/23 Breathlessness (Acute) 01/28/23 Confusion 01/23/23 Hypoxia (Acute) 01/23/23 Acute on chronic diastolic heart failure with preserved ejection fraction 01/23/23 Monoclonal paraproteinemia Hypomagnesemia Exertional shortness of breath 11/29/22 Atrial fibrillation with rapid ventricular response (Acute) Anemia duplicate Encounter for pre-operative examination DVT prophylaxis Dysphagia Respiratory failure with hypoxia 07/15/21 Pneumonia due to COVID-19 virus 07/15/21 UTI (urinary tract infection) (Acute) 07/15/21 Anemia (Acute) Acute on chronic diastolic CHF (congestive heart failure) 05/07/21 History of pulmonary embolism Pleural effusion, left 05/07/21 Pericardial effusion 05/07/21 Monoclonal B-cell lymphocytosis Atrial fibrillation BPH (benign prostatic hyperplasia) History of hip surgery H/O knee surgery Morbid (severe) obesity due to excess calories CKD (chronic kidney disease), stage III LBBB (left bundle branch block) ? 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 Bladder calculi History of anemia Hx of gout Sleep apnea Confusion Chronic diarrhea Anxiety and depression Multiple myeloma (2018) SOB (shortness of breath) History of pulmonary embolism History of DVT (deep vein thrombosis) Thrombocytopenia Pneumonia due to COVID-19 virus Atrial fibrillation with rapid ventricular response (05/2021) 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 Chronic diastolic CHF (congestive heart failure) Chronic sinusitis Hypothyroidism CAD (coronary artery disease) Klebsiella infection Escherichia coli infection Nonobstructive atherosclerosis of coronary artery (05/2010) Neuralgia Hyperlipidemia History of paroxysmal supraventricular tachycardia Prolonged QT interval GERD (gastroesophageal reflux disease) BPH without obstruction/lower urinary tract symptoms Carpal tunnel syndrome Restless leg syndrome Surgical History History of cystoscopy (12/14/23) History of surgery (07/2019) History of cardiac cath (2009) History of revision of total knee arthroplasty History of pacemaker (06/2021) History of thoracentesis (07/2019) History of appendectomy (05/2019) History of esophagogastroduodenoscopy (EGD) (07/2022) History of colonoscopy (07/2022) History of tooth extraction History of cataract surgery History of total right hip arthroplasty H/O sinus surgery History of bilateral knee arthroplasty Hx of cholecystectomy Family History Father Heart disease Mother Diabetes Hypertension Brother Family hx of colon cancer Brother Family hx of colon cancer Social History Smoking Status: Never smoker Second Hand Exposure: No; Do You Dip or Chew Tobacco: No; Tobacco Cessation Education Requested by Patient: No Hx Alcohol Use: No Hx Substance Use: No Preferred Language: Tamazight Communication Ability: Effective Communication Ability Comment: PT DAUGHTER SHADY DAY, SIGNS CONSENTS (PT LIMITED COMPREHENSION) Senior Enlisted Advisor Required: No Beliefs That Will Affect Care: None marital status: Current Living Situation: Spouse and Family Current Living Situation Comment: pt lives with and daughter How many Children do You have: 2 Other Information That Helps Us Care for You: No Feels Safe at Home: Yes Safety Concerns: Feels Safe At This Time Assistive Devices: CPAP, Denture - Upper and Walker Review of Systems Review of Systems: As per HPI, all other systems reviewed and negative Physical Exam Physical Exam: GENERAL: Comfortable, pleasant, morbidly obese, no respiratory distress SKIN: Pallor, warm HEENT: Alopecia, pale palpebral conjunctivae, no ptosis, moist buccal mucosa, nasal cannula in place NECK : Supple, short neck, no tenderness CHEST : Decreased breath sounds, no tenderness HEART : Irregular, systolic murmur ABDOMEN: Some distention, nontender EXTREMITIES : Minimal LE swelling, no LE tenderness, no other conspicuous deformities noted NEUROLOGIC : Coherent, no facial asymmetry, no other gross focality Results & Data Results & Data Vital Signs (Past 12 Hours) Vital Signs Temp Pulse Pulse Resp BP BP Pulse Ox 03/11/24 19:33 77 24 99 03/11/24 19:06 76 21 98 03/11/24 19:00 118/93 03/11/24 18:36 68 20 98 03/11/24 18:21 75 17 98 03/11/24 17:30 64 24 99 03/11/24 17:06 74 03/11/24 17:03 70 18 99 03/11/24 17:02 77 28 H 121/81 96 03/11/24 17:02 03/11/24 17:02 03/11/24 17:00 123/69 03/11/24 16:48 77 28 H 88 L 03/11/24 16:48 36.8 C 77 28 H 121/81 88 L O2 Del Method O2 Flow Rate 03/11/24 19:33 Nasal Cannula 3 03/11/24 19:06 Nasal Cannula 3 03/11/24 19:00 03/11/24 18:36 Nasal Cannula 3 03/11/24 18:21 Nasal Cannula 3 03/11/24 17:30 Nasal Cannula 3 03/11/24 17:06 03/11/24 17:03 Nasal Cannula 3 03/11/24 17:02 Nasal Cannula 4 03/11/24 17:02 Nasal Cannula 4 03/11/24 17:02 Nasal Cannula 4 03/11/24 17:00 03/11/24 16:48 Room Air 03/11/24 16:48 Room Air Laboratory Results Laboratory Results WBC 5.54 K/ul (4.8-10.8) 03/11/24 15:35 RBC 4.05 M/uL (4.70-6.10) L 03/11/24 15:35 Hgb 12.9 g/dl (14.0-18.0) L 03/11/24 15:35 POC Hgb 12.9 g/dl (14.0-18.0) L 03/11/24 20:57 Hct 38.3 % (42.0-52.0) L 03/11/24 15:35 POC Hct 38 % (42-52) L 03/11/24 20:57 MCV 94.6 fL (80.0-100.0) 03/11/24 15:35 MCH 31.9 pg (25.0-34.0) 03/11/24 15:35 MCHC 33.7 g/dL (32.0-36.0) 03/11/24 15:35 RDW Std Deviation 51.8 fL (36.4-46.3) H 03/11/24 15:35 RDW Coeff of [place] 14.8 % (11.5-14.5) H 03/11/24 15:35 Plt Count 168 K/uL (130-400) 03/11/24 15:35 MPV 11.6 fL (9.4-12.4) 03/11/24 15:35 Immature Gran % (Auto) 0.2 % 03/11/24 15:35 Neut % (Auto) 55.2 % 03/11/24 15:35 Lymph % (Auto) 24.7 % 03/11/24 15:35 [place] % (Auto) 11.6 % 03/11/24 15:35 Eos % (Auto) 7.2 % 03/11/24 15:35 Baso % (Auto) 1.1 % 03/11/24 15:35 Neut # (Auto) 3.06 K/uL (1.40-6.50) 03/11/24 15:35 Lymph # (Auto) 1.37 K/uL (1.20-3.40) 03/11/24 15:35 [place] # (Auto) 0.64 K/uL (0.11-0.59) H 03/11/24 15:35 Eos # (Auto) 0.40 K/uL (0.00-0.50) 03/11/24 15:35 Baso # (Auto) 0.06 K/uL (0.00-0.20) 03/11/24 15:35 Immature Gran # (Auto) 0.01 K/uL (0.01-0.20) 03/11/24 15:35 PT 10.2 Seconds (9.0-12.0) 03/11/24 15:35 INR 0.9 (0.9-1.1) 03/11/24 15:35 POC pH 7.38 (7.35-7.45) 03/11/24 20:57 POC pCO2 56 mmHg (35-46) H 03/11/24 20:57 POC pO2 90 mmHg (80-95) 03/11/24 20:57 POC HCO3 33 zac/L (19-24) H 03/11/24 20:57 POC Total CO2 35 mmol/L (24-31) H 03/11/24 20:57 POC Base Excess 8.0 zac/L (-9-1.8) H 03/11/24 20:57 ABG pH 7.37 (7.35-7.45) 03/11/24 20:58 ABG pCO2 54 mmHg (35-46) H 03/11/24 20:58 ABG pO2 98 mmHg (80-95) H 03/11/24 20:58 ABG HCO3 31 mmol/L (19-24) H 03/11/24 20:58 POC ABG O2 Sat 96.0 % (90-95) H 03/11/24 20:57 ABG O2 Saturation 97.9 % (90-95) H 03/11/24 20:58 ABG Base Excess 4.5 mEq/L (-9-1.8) H 03/11/24 20:58 VBG pH 7.31 (7.36-7.41) L 03/11/24 15:35 VBG pCO2 76 mmHg (38-50) H 03/11/24 15:35 VBG pO2 27 mmHg 03/11/24 15:35 VBG HCO3 38 mmol/L 03/11/24 15:35 VBG O2 Saturation < 60.0 % 03/11/24 15:35 VBG Base Excess 9.0 mEq/L 03/11/24 15:35 POC Sodium 142 mmol/L (135-144) 03/11/24 20:57 Sodium 144 mmol/L (136-145) 03/11/24 15:35 POC Potassium 3.4 mmol/L (3.3-5.0) 03/11/24 20:57 Potassium 4.2 mmol/L (3.5-5.1) 03/11/24 15:35 Chloride 101 mmol/L (98-107) 03/11/24 15:35 Carbon Dioxide 36 mmol/L (21-32) H 03/11/24 15:35 Anion Gap 7 (3-11) 03/11/24 15:35 BUN 23 mg/dl (6-23) 03/11/24 15:35 Creatinine 1.72 mg/dl (0.6-1.4) H 03/11/24 15:35 Est Cr Clr Drug Dosing 41.8 ml/min 03/11/24 15:35 Est GFR ( Amer) 41.7 ml/min 03/11/24 15:35 Est GFR (Non-Af Amer) 36.0 ml/min 03/11/24 15:35 BUN/Creatinine Ratio 13.4 (10-20) 03/11/24 15:35 Glucose 126 mg/dl (70-99(Fasting)) H 03/11/24 15:35 Calcium 7.4 mg/dl (8.6-10.3) L 03/11/24 15:35 Magnesium 1.9 mg/dl (1.7-2.4) 03/11/24 15:35 Total Bilirubin 0.6 mg/dl (0.2-1.0) 03/11/24 15:35 AST 20 U/L (13-39) 03/11/24 15:35 ALT 11 U/L (7-52) 03/11/24 15:35 Alkaline Phosphatase 71 U/L (34-104) 03/11/24 15:35 Troponin I High Sens 9.4 pg/ml (0-20) 03/11/24 15:35 B-Natriuretic Peptide 110 pg/ml (0-100) H 03/11/24 15:35 Total Protein 6.2 gm/dl (6.0-8.3) 03/11/24 15:35 Albumin 3.8 gm/dl (3.4-5.0) 03/11/24 15:35 Globulin 2.4 gm/dl (2.5-4.0) L 03/11/24 15:35 Albumin/Globulin Ratio 1.6 (0.9-2) 03/11/24 15:35 Adenovirus (PCR) Not Detected (NotDetected) 03/11/24 17:13 B. pertussis DNA (PCR) Not Detected (NotDetected) 03/11/24 17:13 B.parapertussis DNA PCR Not Detected (NotDetected) 03/11/24 17:13 C. pneumoniae DNA (PCR) Not Detected (NotDetected) 03/11/24 17:13 Coronavirus OC43 (PCR) Not Detected (NotDetected) 03/11/24 17:13 Coronavirus HKU1 (PCR) Not Detected (NotDetected) 03/11/24 17:13 Coronavirus 229E (PCR) Not Detected (NotDetected) 03/11/24 17:13 SARS-CoV-2 (PCR) Not Detected (NotDetected) 03/11/24 17:13 Coronavirus NL63 (PCR) Not Detected (NotDetected) 03/11/24 17:13 Human Metapneumovir PCR Not Detected (NotDetected) 03/11/24 17:13 Influenza Type A (PCR) Not Detected (NotDetected) 03/11/24 17:13 Influenza Type B (PCR) Not Detected (NotDetected) 03/11/24 17:13 M. pneumoniae (PCR) Not Detected (NotDetected) 03/11/24 17:13 Parainfluenza 1 (PCR) Not Detected (NotDetected) 03/11/24 17:13 Parainfluenza 2 (PCR) Not Detected (NotDetected) 03/11/24 17:13 Parainfluenza 3 (PCR) Not Detected (NotDetected) 03/11/24 17:13 Parainfluenza 4 (PCR) Not Detected (NotDetected) 03/11/24 17:13 RSV (PCR) Not Detected (NotDetected) 03/11/24 17:13 Entero/Rhino (PCR) Not Detected (NotDetected) 03/11/24 17:13 Impressions Chest X-Ray 03/11/24 16:48 XR chest 1V portable HISTORY: 83 years-old Male Dyspnea acute shortness of breath COMPARISON: 12/29/2023 TECHNIQUE: AP view the chest FINDINGS: Cardiac silhouette is enlarged. Dual-lead left subclavian pacer. Mild right hemidiaphragmatic elevation. Pulmonary vascular congestion with interstitial coarsening and hypoinflation. Bones appear grossly intact. IMPRESSION: Cardiomegaly with pulmonary vascular congestion and possible mild pulmonary edema. ACT 112: Negative or not required by law. The above report was generated using voice recognition software. It may contain grammatical, syntax or spelling errors. Electronically signed by: Luis M Mortensen M.D. 03/11/2024 5:17 PM Diagnostic Findings EKG as per my interpretation :Rate 75, A-fib, LAD, LAFB, LBBB
[2024-03-11 22:14] LABS: Allen Test Pos (Pos)
[2024-03-11] MEDS ORDERED: LORazepam 0.5 MG TAB PO PRN (22:55)
[2024-03-11] MEDS ORDERED: TRIAMCINOLONE ACET 0.1% CR 15 GM TUBE TOP PRN (22:55)
[2024-03-11] MEDS ORDERED: ACETAMINOPHEN 325 MG TAB PO PRN (22:55)
[2024-03-12 00:01] LABS: Appearance Urine Clear (Clear); Bacteria Urine Automated None Seen (None Seen); Bilirubin Urine Negative (Negative); Blood Urine Trace (Negative); Cast Urine Automated 0-2 /lpf (0-2); Color Urine Yellow; Epithelial Cell Urine Auto 0-2 /hpf (0-2); Glucose Urine UA Negative (Negative); Ketones Urine Negative (Negative); Leukocyte Esterase Urine Trace (Negative); Nitrite Urine Negative (Negative); Protein Urine Negative (Negative); RBC Urine Automated 0-2 /hpf (0-2); Specific Gravity Urine 1.008 (1.000-1.030); Urobilinogen Urine Negative (Negative); WBC Urine Automated 0-5 /hpf (0-5)
[2024-03-12] MEDS: APIXABAN 2.5 MG TAB PO SCH (00:01)
[2024-03-12] MEDS: METOPROLOL SUCC 50MG EXT REL TAB PO SCH (00:01)
[2024-03-12] MEDS: LEVOTHYROXINE SODIUM 75 MCG TABLET PO SCH (06:12)
[2024-03-12 07:11] LABS: Basophils # (auto) 0.06 K/uL (0.00-0.20); Basophils % (auto) 0.9 %; Eosinophils # (auto) 0.38 K/uL (0.00-0.50); Eosinophils % (auto) 5.9 %; Hematocrit (blood only) 40.2 % (42.0-52.0); Hemoglobin 12.9 g/dl (14.0-18.0); Immature Granulocytes # (auto) 0.02 K/uL (0.01-0.20); Immature Granulocytes % (auto) 0.3 %; Lymphocytes # (auto) 1.32 K/uL (1.20-3.40); Lymphocytes % (auto) 20.3 %; Mean Corpuscular Hemoglobin 30.7 pg (25.0-34.0); Mean Corpuscular Hgb Conc 32.1 g/dL (32.0-36.0); Mean Corpuscular Volume 95.7 fL (80.0-100.0); Mean Platelet Volume 11.4 fL (9.4-12.4); Monocytes # (auto) 0.68 K/uL (0.11-0.59); Monocytes % (auto) 10.5 %; Neutrophils # (auto) 4.03 K/uL (1.40-6.50); Neutrophils % (auto) 62.1 %; Platelet Count 168 K/uL (130-400); RDW Coefficient of Variation 14.7 % (11.5-14.5); RDW Standard Deviation 51.2 fL (36.4-46.3); White Blood Count 6.49 K/ul (4.8-10.8)
[2024-03-12 07:17] LABS: BUN Creatinine Ratio 12.1 (10-20); Calcium 7.3 mg/dl (8.6-10.3); Creatinine Clr Calc Pharmacy 43.2 ml/min; Est GFR (African American) 43.8 ml/min; Est GFR (Non-African American) 37.8 ml/min; Potassium 3.8 mmol/L (3.5-5.1)
--- NOTE | 2024-03-12 07:17 | XRay Report ---
XR chest 1V portable HISTORY: 83 years-old Male chf, ffup acute shortness of breath COMPARISON: 03/11/2024 TECHNIQUE: AP view of the chest FINDINGS: Cardiac silhouette is enlarged. Dual-lead left subclavian pacer. Mild right hemidiaphragmatic elevati on. Pulmonary vascular congestion with interstitial coarsening and hypoinflation. Bones appear grossl y intact. IMPRESSION: Cardiomegaly with unchanged pulmonary vascular congestion and possible mild pulmonary magdy ma. ACT 112: Negative or not required by law. The above report was generated using voice recognition software. It may contain grammatical, syntax o r spelling errors. Electronically signed by: Luis M Mortensen M.D. 03/12/2024 7:14 AM
[2024-03-12] MEDS: ATORVASTATIN 10 MG TAB PO SCH (08:09)
[2024-03-12] MEDS: DULoxetine HCL 60 MG CAP PO SCH (08:10)
[2024-03-12] MEDS: CYANOCOBALAMIN (B-12) 500 MCG TABLET PO SCH (08:10)
[2024-03-12] MEDS: allopurinoL 300 MG TAB PO SCH (08:10)
[2024-03-12] MEDS: MONTELUKAST SODIUM 10 MG TABLET PO SCH (08:11)
--- NOTE | 2024-03-12 08:53 | Electrocardiogram Report ---
Test Reason : Blood Pressure : */* mmHG Vent. Rate : 75 BPM Atrial Rate : * BPM P-R Int : * ms QRS Dur : 138 ms QT Int : 434 ms P-R-T Axes : * -37 133 degrees QTcB Int : 484 ms Atrial fibrillation with occasional ventricular-paced complexes Left axis deviation Left bundle branch block Abnormal ECG When compared with ECG of 29-Dec-2023 10:13, Vent. rate has decreased by 34 bpm Confirmed by Wade London ([id number]) on 03/12/2024 8:52:59 AM Referred By: REFERRED SELF Confirmed By: Wade London
--- NOTE | 2024-03-12 08:55 | Cardiology Consultation ---
Date of Consultation March 12, 2024 Assessment & Plan (1) Acute hypoxemic respiratory failure: (2) Acute on chronic diastolic heart failure with preserved ejection fraction: (3) Atrial fibrillation: (4) Cardiac pacemaker in situ: Plan Assessment: 83 year old male with complex past medical history presents with slowly progressive shortness of breath and dyspnea on exertion with acute hypoxemia. Imaging studies consistent with CHF. Cardiology requested for further evaluation/recommendations. Plan: 1. Acute hypoxemic resp. failure 2. Acute on Chronic diastolic heart failure with preserved ejection fraction: -Patient exhibits hypervolemia, confirmed also with chest xray. -Possibly related to CPAP non-compliance. patient reports compliance on all medications and dietary compliance. -Most recent echocardiogram demonstrates preserved LVEF, and no significant valvular disease. -Patient received a one time dose of Furosemide 40mg IV in the ED, no output recorded. -Start Furosemide 40mg IV twice daily. -Strict I and O's, daily weights (prefer a standing scale or chair scale) -Close monitoring of renal function and electrolytes. -Maintain a serum K> 4.0 and Serum Mag > 2.0. current serum K 3.8. Start supplemental Potassium Chloride 20meq PO Daily. -CHF teaching. -Assess fluid status in the AM 3. Atrial fibrillation 4. History of SSS s/p dual chamber PPM: -A-fib on telemetry, chronic left BBB with history of LHC 2009 demonstrating non-obstructive disease. -Rates controlled. Continue Toprol xl 50mg PO BID and Eliquis 2.5mg PO BID (reduced s/t age and renal function) BP well controlled. Continue torpol xl, and Terzosin Continue Atorvastatin as per home regimen for history of HLD. Case has been discussed with Dr. Barlow. Further recommendations regarding plan of care as per his assessment. I spent a total of 40 minutes on the date of service in preparation, delivery, documentation of the care provided to the patient excluding any time spent in the performance of separately billed services. [facility] Cardiology [facility] Supervising Physician Co-Signing Physician Notes I have personally performed a history and physical examination on the patient. I have reviewed the advance practitioner's documentation, and I agree with, and take responsibility for the plan of care. 83-year-old male admitted secondary to acute respiratory insufficiency with acute on chronic heart failure with preserved ejection fraction. ABG on admission demonstrating hypoxia with chronic hypercapnia. Admits to noncompliance with CPAP over the past few weeks. Clinical status improved with IV diuresis. Continue IV furosemide. Monitor fluid balance, daily weight, GFR, and electrolytes. CKD stage III noted with stable GFR/Creatinine. Discussed importance of compliance with CPAP and current medications. Telemetry reveals rate controlled atrial fibrillation. Continue Toprol-XL and Eliquis as ordered. I spent a total of 30 minutes on the date of service in preparation, delivery, and documentation of the care provided to this patient, excluding any time spent in the performance of separately billed services. Shakir Barlow DO, [facility] History of Present Illness Reason for Consultation: CHF Requesting Physician: Sanjay Baca Attending Physician: Jevon Hawkins DO History of Present Illness HPI:Patient is a 83 year-old male with PMHx as listed below that presents with shortness of breath x1 week. Reports that he checked his home SPO2 saturation wh ich was in the 80's prompting him to present. Denies any home supplemental O2, and is non-compliant with his CPAP for the past several weeks. patient admits that he had a head cold approx a month or so ago and stopped wearing his CPAP because he was congested. Since then he has fallen out of habit. Patient does not typically weight himself on a regular basis, but states that his daughter manages his meds, goes to his appointments and monitors his diet closely. Denies chest pain, pressure or palpitations. Reports mild improvement in breathing, but is currently receiving supplemental O2 1lpm via nasal cannula. Problem List: 1. Moderate nonobstructive CAD by May 2010 catheterization 2. Chronic left bundle branch block 3. Diastolic congestive heart failure felt to be secondary to hypertension, hypertensive heart disease 4. History of pericardial effusion. 5. Asymptomatic ventricular ectopy 6. Paroxysmal atrial fibrillation diagnosed in May 2021, s/p BENJIE guided DCCV on 05/08/2021 at [facility]. 7. [id number] score of 5 (age 2, CHF, hypertension, CAD)- on Eliquis 8. 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 John. This is a MR conditional device. 1. Pulse generator: eYeka Sylvia XT DMR SureScan [id number], serial number [id number]. 2. Right atrial lead: Medtronic 5076-52 cm, serial number [id number]. 3. Left bundle lead: Medtronic 3830-69 seconds, serial number [id number]. 9. Bilateral internal carotid artery disease. 10. Dyslipidemia 11. Stage III CKD 12. Anemia 13. Lambda light chain multiple myeloma 14. History of left pleural effusion related to heart failure versus other. Status post left PleurX catheter placement with removal on July 27, 2019 15. NAHEED treated with CPAP 16. Hypothyroidism 17. Hypoalbuminemia 18. GERD 19. Obesity 20. Depression 21. Gout 22. RLS 23. DJD 24. Osteoarthritis 25. BPH. Elevated PSA. Followed by Dr. Burnette. 26. History of pancreatitis. 27. Hospitalization in May 2020 with right lower extremity DVT and extensive PEs. Course complicated by C difficile infection. Typically follows with Amadeo Gomez PA-C, last visit 11/19/23. EKG on admission A-fib with Ventricular pacing, chronic Left BBB. Rate 75bpm. chest xray on admission FINDINGS: Cardiac silhouette is enlarged. Dual-lead left subclavian pacer. Mild right hemidiaphragmatic elevation. Pulmonary vascular congestion with interstitial coarsening and hypoinflation. Bones appear grossly intact. IMPRESSION: Cardiomegaly with pulmonary vascular congestion and possible mild pulmonary edema. Repeat CXR this morning, unchanged. Troponin negative x1 BNP 110 Received Lasix 40mg IV x1 dose, awaiting cardiology recommendations for further diuresis. Review of telemetry demonstrates A-fib, rates controlled in the 70's. no acute events overnight. Known dual chamber PPM. Allergies Allergy/AdvReac Type Severity Reaction Status Date / Time COVID-19 vaccine, mRNA, AdvReac Unknown probable Verified 03/11/24 20:00 [id number], L reaction: [From [place] (PF)] throat swelling Home Medications Medication Instructions Recorded Confirmed Type allopurinol 300 mg tablet 300 mg PO QAM 04/30/18 03/11/24 History atorvastatin 10 mg tablet 5 mg PO QAM 04/30/18 03/11/24 History cholecalciferol (vitamin D3) 50 2,000 unit PO QAM 04/30/18 03/11/24 History mcg (2,000 unit) capsule (Vitamin D3) omeprazole 40 mg capsule,delayed 40 mg PO HS 04/30/18 03/11/24 History release terazosin 5 mg capsule 5 mg PO HS 04/30/18 03/11/24 History montelukast 10 mg tablet 10 mg PO QAM 05/07/21 03/11/24 History apixaban 2.5 mg tablet (Eliquis) 2.5 mg PO BID #60 tabs 07/13/21 03/11/24 Rx diphenoxylate-atropine 2.5 1 tab PO QID PRN Diarrhea 07/10/22 03/11/24 History mg-0.025 mg tablet (Lomotil) magnesium oxide 400 mg PO BID #60 caps 12/01/22 03/11/24 Rx cyanocobalamin (vitamin B-12) 1,000 mcg PO Q2D 01/23/23 03/11/24 History 1,000 mcg tablet triamcinolone acetonide 0.1 % 1 applic topical BID PRN flare up 01/23/23 03/11/24 History topical cream acyclovir 400 mg tablet 400 mg PO BID 03/28/23 03/11/24 History albuterol sulfate 90 mcg/actuation 2 puff inhalation QID PRN 03/28/23 03/11/24 History aerosol inhaler Shortness Of Breath Or Wheezing potassium chloride 20 mEq 20 meq PO QAM 10/10/23 03/11/24 History tablet,extended release levothyroxine 75 mcg tablet 75 mcg PO QAM 12/08/23 03/11/24 History metoprolol succinate 50 mg 50 mg PO BID 12/08/23 03/11/24 History tablet,extended release 24 hr torsemide 20 mg tablet 40 mg PO QAM 12/08/23 03/11/24 History lorazepam 0.5 mg tablet (Ativan) 0.25 mg (1/2 x 0.5 mg) PO DAILY 01/01/24 03/11/24 Rx PRN anxiety #10 tabs duloxetine 60 mg capsule,delayed 60 mg PO QAM 03/11/24 03/11/24 History release trazodone 100 mg tablet 100 mg PO HS 03/11/24 03/11/24 History Patient History Medical History Poor historian Hx of respiratory failure Osteoarthritis LBBB (left bundle branch block) Hypertension History of dysphagia CKD (chronic kidney disease), stage III Chronic retention of urine Cardiac pacemaker in situ Bladder calculi History of anemia Hx of gout Sleep apnea Confusion Chronic diarrhea Anxiety and depression Multiple myeloma (2018) SOB (shortness of breath) History of pulmonary embolism History of DVT (deep vein thrombosis) Thrombocytopenia Pneumonia due to COVID-19 virus Atrial fibrillation with rapid ventricular response (05/2021) 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 Chronic diastolic CHF (congestive heart failure) Chronic sinusitis Hypothyroidism CAD (coronary artery disease) Klebsiella infection Escherichia coli infection Nonobstructive atherosclerosis of coronary artery (05/2010) Neuralgia Hyperlipidemia History of paroxysmal supraventricular tachycardia Prolonged QT interval GERD (gastroesophageal reflux disease) BPH without obstruction/lower urinary tract symptoms Carpal tunnel syndrome Restless leg syndrome Surgical History History of cystoscopy (12/14/23) History of surgery (07/2019) History of cardiac cath (2009) History of revision of total knee arthroplasty History of pacemaker (06/2021) History of thoracentesis (07/2019) History of appendectomy (05/2019) History of esophagogastroduodenoscopy (EGD) (07/2022) History of colonoscopy (07/2022) History of tooth extraction History of cataract surgery History of total right hip arthroplasty H/O sinus surgery History of bilateral knee arthroplasty Hx of cholecystectomy Family History Father Heart disease Mother Diabetes Hypertension Brother Family hx of colon cancer Brother Family hx of colon cancer Social History Smoking Status: Never smoker Second Hand Exposure: No; Do You Dip or Chew Tobacco: No; Tobacco Cessation Education Requested by Patient: No Hx Alcohol Use: No Hx Substance Use: No Preferred Language: French Communication Ability: Effective Communication Ability Comment: PT DAUGHTER SHADY DAY, SIGNS CONSENTS (PT LIMIT ED COMPREHENSION) 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 [employer]er Required: No Beliefs That Will Affect Care: None marital status: Current Living Situation: Spouse and Family Current Living Situation Comment: pt lives with and daughter How many Children do You have: 2 Other Information That Helps Us Care for You: No Feels Safe at Home: Yes Safety Concerns: Feels Safe At This Time Assistive Devices: CPAP, Denture - Upper and Walker Review of Systems Review of Systems: All systems reviewed & are unremarkable except as noted in HPI & below Physical Exam Constitutional: well developed, well nourished and + overweight Neck: normal visual inspection and trachea midline Respiratory: normal respiratory effort; no respiratory distress, no labored breathing and no cough Auscultation: + diminished lung sounds (bilateral bases ); no crackles, no rales, no rhonchi and no wheezes Cardiovascular: Rate/Rhythm: + irregularly irregular Heart Sounds: normal S1 and normal S2; no murmur Vessels: dorsalis pedis pulses present; no JVD Extremities: + edema (Trace BLE) Skin: no rashes, warm and dry Psychiatric: A+Ox3, euthymic affect Results & Data Vital Signs (Past 12 Hours) Vital Signs Temp Pulse Pulse Resp BP Pulse Ox Pulse Ox 03/12/24 08:00 03/12/24 07:57 03/12/24 07:28 36.9 C 78 18 121/72 97 03/12/24 03:07 36.7 C 98 H 18 107/66 98 03/12/24 00:00 96 03/11/24 22:55 76 03/11/24 22:55 03/11/24 22:55 36.5 C 77 20 151/81 H 99 03/11/24 22:02 03/11/24 21:30 76 O2 Del Method O2 Del Method O2 Flow Rate O2 Flow Rate 03/12/24 08:00 Nasal Cannula 03/12/24 07:57 Nasal Cannula 03/12/24 07:28 Nasal Cannula 2 03/12/24 03:07 Nasal Cannula 3 03/12/24 00:00 Nasal Cannula 3 03/11/24 22:55 03/11/24 22:55 Nasal Cannula 3 03/11/24 22:55 Nasal Cannula 3 03/11/24 22:02 Nasal Cannula 3 03/11/24 21:30 Laboratory Results Cardiac Enzymes 03/11/24 Range/Units 15:35 AST 20 (13-39) U/L Troponin I High Sens 9.4 (0-20) pg/ml B-Natriuretic Peptide 110 H (0-100) pg/ml Coagulation 03/11/24 Range/Units 15:35 PT 10.2 (9.0-12.0) Seconds B-Natriuretic Peptide 110 H (0-100) pg/ml CBC 03/11/24 03/12/24 Range/Units 15:35 06:12 WBC 5.54 6.49 (4.8-10.8) K/ul RBC 4.05 L 4.20 L (4.70-6.10) M/uL Hgb 12.9 L 12.9 L (14.0-18.0) g/dl Hct 38.3 L 40.2 L (42.0-52.0) % Plt Count 168 168 (130-400) K/uL Neut # (Auto) 3.06 4.03 (1.40-6.50) K/uL Lymph # (Auto) 1.37 1.32 (1.20-3.40) K/uL Winkler # (Auto) 0.64 H 0.68 H (0.11-0.59) K/uL Eos # (Auto) 0.40 0.38 (0.00-0.50) K/uL Baso # (Auto) 0.06 0.06 (0.00-0.20) K/uL Comprehensive Metabolic Panel 03/11/24 03/12/24 Range/Units 15:35 06:12 Sodium 144 143 (136-145) mmol/L Potassium 4.2 3.8 (3.5-5.1) mmol/L Chloride 101 100 (98-107) mmol/L Carbon Dioxide 36 H 35 H (21-32) mmol/L BUN 23 20 (6-23) mg/dl Creatinine 1.72 H 1.65 H (0.6-1.4) mg/dl Glucose 126 H 107 H (70-99(Fasting)) mg/dl Calcium 7.4 L 7.3 L (8.6-10.3) mg/dl AST 20 (13-39) U/L ALT 11 (7-52) U/L Alkaline Phosphatase 71 (34-104) U/L Total Protein 6.2 (6.0-8.3) gm/dl Albumin 3.8 (3.4-5.0) gm/dl Intake and Output 03/11/24 03/12/24 03/12/24 22:59 06:59 14:59 Intake Total 100 / 250 150 / 250 Balance 100 / 250 150 / 250 Intake: IV 100 / 100 Magnesium Sulfate / D5w 1 gm In 100 / 100 100 ml @ 50 mls/hr IV ONE ONE Rx#:[id number] Oral 150 / 150 Other: # Unmeasured Voids 3 Weight 125.7 kg 125.7 kg Weight Measurement Method [facility] Diagnostic Findings Echocardiogram 01/01/2024: Mild concentric LVH LVEF 55-60% LV wall motion is normal No significant valvular disease (3) Atrial fibrillation Atrial fibrillation type: paroxysmal Qualified Code(s): I48.0 - Paroxysmal atrial fibrillation
[2024-03-12] MEDS: POTASSIUM CHLORIDE CRTAB 20 MEQ TABCR PO SCH (12:11)
[2024-03-12] MEDS: FUROSEMIDE 40 MG/4 ML VIAL IV SCH (12:11)
--- NOTE | 2024-03-12 12:38 | Hospitalist Progress Note ---
Date of Service March 12, 2024 Assessment & Plan (1) Acute on chronic diastolic heart failure with preserved ejection fraction: (2) Acute hypoxemic respiratory failure: (3) Sleep apnea treated with continuous positive airway pressure (CPAP): (4) Chronic atrial fibrillation: (5) CKD (chronic kidney disease), stage III: (6) Hypothyroidism: (7) Cardiac pacemaker in situ: Plan Patient 83-year-old gentleman who presents with acute hypoxic respiratory failure due to decompensated diastolic heart failure with preserved ejection fraction noncompliance with CPAP. Communication with cardiology team, will increase IV diuresis with Lasix today Replace electrolytes Monitor laboratory studies Monitor intake and output as well as daily weight Continue chronic anticoagulation with atrial fibrillation dosed appropriately for age and renal function Continue beta-shannon for rate control of atrial fibrillation Titrate oxygen off as able, patient may need to be considered for home oxygen Conversation with patient and his use of CPAP. He states that he had been using at home but when he had a upper respiratory infection he had stopped using it and then never really restarted. I stressed to him the importance of wearing the CPAP I explained to him how not wearing the CPAP causes his heart to work harder while he is sleeping and overnight increasing his risk for heart attack, stroke and heart failure. With this new added knowledge patient is agreeable to continuing and restarting the use of his CPAP at home. 52 minutes coordinating care, communication with specialist, review of records, education and care patient at bedside Admission and Anticipated Discharge Date Admission Date: March 11, 2024 Subjective Patient feeling better. Less short of breath. Reports that he did have significant amount of urine output, Physical Exam Physical Exam: Constitutional: Alert, sitting in chair HEENT: Mucous membranes moist. Lungs: Decreased breath sounds with fine crackles and rales throughout CV: S1-S2, irregular irregular Abdomen: Soft, nontender, nondistended Extremities: Trace pretibial edema Neuro: No focal deficits Psych: Cooperative, normal mood Results & Data Results & Data Vital Signs (Past 12 Hours) Vital Signs Temp Pulse Resp BP Pulse Ox Pulse Ox O2 Del Method 03/12/24 11:11 36.7 C 72 18 107/70 96 Nasal Cannula 03/12/24 10:44 92 03/12/24 10:43 83 L 03/12/24 08:00 03/12/24 07:57 Nasal Cannula 03/12/24 07:28 36.9 C 78 18 121/72 97 Nasal Cannula 03/12/24 03:07 36.7 C 98 H 18 107/66 98 Nasal Cannula O2 Del Method O2 Flow Rate O2 Flow Rate 03/12/24 11:11 1 03/12/24 10:44 Nasal Cannula 1 03/12/24 10:43 Room Air 03/12/24 08:00 Nasal Cannula 03/12/24 07:57 03/12/24 07:28 2 03/12/24 03:07 3 Diagnostic Findings Reviewed imaging, laboratory and diagnostic studies. Pertinent findings as below. Creatinine 1.65, baseline Potassium 3.4 Personally reviewed EKG, atrial fibrillation controlled ventricular response Personally reviewed chest x-ray imaging from today, mild pulmonary congestion
[2024-03-12] MEDS: CALCIUM GLUCONATE 1,000 MG/60 ML BAG IV SCH (13:15)
[2024-03-12] MEDS: POTASSIUM CHLORIDE CRTAB 20 MEQ TABCR PO ONE ×2 (13:16→21:05)
[2024-03-12] MEDS: TERAZOSIN HCL 5 MG CAP PO SCH (21:05)
[2024-03-12] MEDS: traZODone HCL 100 MG TAB PO SCH (21:05)
[2024-03-12] MEDS: PANTOprazole 40 MG TAB PO SCH (21:06)
[2024-03-13 06:45] LABS: BUN Creatinine Ratio 14.1 (10-20); Calcium 7.4 mg/dl (8.6-10.3); Creatinine Clr Calc Pharmacy 35.8 ml/min; Est GFR (Non-African American) 30.2 ml/min; Magnesium 1.8 mg/dl (1.7-2.4); Potassium 3.8 mmol/L (3.5-5.1)
--- NOTE | 2024-03-13 11:00 | Cardiology Progress Note ---
<Statement entered by Gilma John, - 03/13/24 16:17> I have reviewed the advanced practitioner's documentation and agree with the plan of care. I accept the responsibility for the associated risk. Pt seen in cardiology follow up due to acute on chronic heart failure with preserved EF-NYHA Class III in the setting of acute respiratory from non- compliance with CPAP He feels much better; did respond to IV diuretics; his Cr did jump today so I would hold off on further IV diuretics; if Cr is better tomorrow then start his home torsemide but at a higher dose of 60mg daily continue other home cardiac medications he will need close CHF f/u in our office No further in patient cardiac recommendation or testing at this juncture Please re-consult as necessary I discussed the patient with the hospitalist via tiger text and he agreed with my recommendations. Date of Service March 13, 2024 Assessment & Plan (1) Chronic atrial fibrillation: (2) Cardiac pacemaker in situ: (3) Acute on chronic diastolic heart failure with preserved ejection fraction: (4) CKD (chronic kidney disease), stage III: (5) LBBB (left bundle branch block): (6) Obstructive sleep apnea on CPAP: Plan -HR and BP currently well controlled -renal function increase with IV Lasix, would hold IV diuresis for today - can be transitioned back to oral diuretics starting tomorrow as long as renal function improves - would recommend increasing home dose of torsemide to 60 mg daily -Strict I and O's, daily weights (prefer a standing scale or chair scale) -Close monitoring of renal function and electrolytes. -Maintain a serum K> 4.0 and Serum Mag > 2.0. -continue apixaban, atorvastatin, Toprol, case discussed with Dr. John, see her attestation for additional recommendations [facility] Admission and Anticipated Discharge Date Admission Date: March 11, 2024 Subjective 83 year old male seen in cardiology follow up in regard to acute on chronic CHF exacerbation. reported significant urine output with IV diuretics yesterday. He is feeling better than his typical today. sitting up in a chair resting comfortably. Remains on supplemental oxygen which he reports he does not typically wear at home. denies chest pain, shortness of breath, palpitations, dizziness, edema, syncope. Review of Systems Review of Systems: All systems reviewed & are unremarkable except as noted in Subjective Physical Exam Constitutional: WD/WN, vitals as above well developed and well nourished; no acute distress Respiratory: normal respiratory effort; no respiratory distress Auscultation: + diminished lung sounds Cardiovascular: Rate/Rhythm: regular rate and + irregularly irregular Vessels: no JVD and no carotid bruit Extremities: normal capillary refill Gastrointestinal (Abdomen): normal bowel sounds, soft, nontender, no hepatosplenomegaly Psychiatric: A+Ox3, euthymic affect Results & Data Vital Signs (Past 12 Hours) Vital Signs Temp Pulse Resp BP BP Pulse Ox Pulse Ox 03/13/24 08:26 36.8 C 87 15 128/75 94 03/13/24 05:10 36.5 C 79 17 101/61 90 03/13/24 00:00 95 03/12/24 23:53 36.6 C 78 19 101/61 96 O2 Del Method O2 Del Method O2 Flow Rate O2 Flow Rate 03/13/24 08:26 Nasal Cannula 1 03/13/24 05:10 Nasal Cannula 1 03/13/24 00:00 Nasal Cannula 1 03/12/24 23:53 Nasal Cannula 1
--- NOTE | 2024-03-13 15:25 | Hospitalist Progress Note ---
Date of Service March 13, 2024 Assessment & Plan (1) Acute on chronic diastolic heart failure with preserved ejection fraction: Plan: Patient 83-year-old gentleman who presents with acute hypoxic respiratory failure due to decompensated diastolic heart failure with preserved ejection fraction noncompliance with CPAP. Has been diuresing enough with intravenous furosemide Restrict her fluid intake of 2000 mL/day Appreciate cardiology input and recommendation Echo of the heart showed mild concentric LVH, LV systolic function is normal, LVEF is 55 to 60%, LV wall motion is normal and Doppler assessment of left ventricular diastolic function is intermediate due to the underlying irregular rhythm Kidney function is slightly worse today with creatinine went up to 1.9 We will hold intravenous diuretics now and start oral from tomorrow at an increasing dose of 60 mg as per the window sash installer Monitor and replace electrolytes (2) Acute hypoxemic respiratory failure: Plan: Secondary to above Requiring 2 L to maintain saturation Titrate oxygen off as able, patient may need to be considered for home oxygen (3) Sleep apnea treated with continuous positive airway pressure (CPAP): Plan: Strongly advised to use CPAP as advised to avoid complications (4) Chronic atrial fibrillation: Plan: Continue chronic anticoagulation with atrial fibrillation dosed appropriately for age and renal function Continue beta-shannon for rate control of atrial fibrillation (5) CKD (chronic kidney disease), stage III: (6) Hypothyroidism: Plan: Continue supplement DVT prophylaxis On Eliquis CODE STATUS Full (7) Cardiac pacemaker in situ: Admission and Anticipated Discharge Date Admission Date: March 11, 2024 Subjective 03/13/2024 Patient was seen and examined in telemetry unit He has been feeling much better today Still has shortness of breath with minimal exertion Denies any chest pain, palpitation, any fever and or chills, no nausea no vomiting He has been saturating normally on 2 L via nasal cannula Review of Systems Review of Systems: All systems reviewed and are unremarkable except as noted below Physical Exam Physical Exam: Sitting on a chair without any acute distress. Constitutional: well developed, well nourished, + ill appearing and + obese Eyes: PERRL, conjunctivae normal, anicteric sclerae ENMT: external ear and nose normal, oropharynx normal Neck: trachea midline, no thyromegaly Respiratory: no respiratory distress Auscultation: + diminished lung sounds and + crackles (Occasional crackles at the bases) Cardiovascular: Rate/Rhythm: regular rate and regular rhythm; not tachycardic Heart Sounds: normal S1 and normal S2; no murmur Extremities: + edema (1+ edema bilateral) Gastrointestinal (Abdomen): Inspection/Auscultation: normal bowel sounds; abdomen not distended Percussion/Palpation: abdomen soft; abdomen nontender Musculoskeletal: No acute arthritis involving any of the joint Neurologic: normal touch/pain/proprioception and moves all extremities; no focal motor deficits Psychiatric: A+Ox3, euthymic affect Lymphatic: no cervical or axillary lymphadenopathy Results & Data Results & Data Vital Signs (Past 12 Hours) Vital Signs Temp Pulse Pulse Resp BP BP Pulse Ox 03/13/24 13:23 80 03/13/24 11:08 36.6 C 75 18 133/80 94 03/13/24 08:26 36.8 C 87 15 128/75 94 03/13/24 08:00 03/13/24 05:10 36.5 C 79 17 101/61 90 O2 Del Method O2 Del Method O2 Flow Rate 03/13/24 13:23 03/13/24 11:08 Nasal Cannula 2 03/13/24 08:26 Nasal Cannula 1 03/13/24 08:00 Nasal Cannula 03/13/24 05:10 Nasal Cannula 1 Laboratory Results BMP 03/13/24 06:07 Sodium 141 Potassium 3.8 Chloride 99 Carbon Dioxide 35 H BUN 28 H Creatinine 1.99 H D Glucose 112 H Calcium 7.4 L Medications Administered Current Inpatient Medications Acetaminophen (Acetaminophen 325 Mg Tab) 650 mg PO Q4H PRN PRN Reason: Pain or Fever Stop: 04/10/24 22:54 Allopurinol (Allop[facility]ol 300 Mg Tab) [facility] Stop: 04/11/24 08:59 Last Admin: 03/13/24 09:44 Dose: 300 mg Apixaban (Apixaban 2.5 Mg Tab) 2.5 mg PO BID [facility] Stop: 04/10/24 22:54 Last Admin: 03/13/24 09:44 Dose: 2.5 mg Atorvastatin Calcium (Atorvastatin 10 Mg Tab) 5 mg PO QAM [facility] Stop: 04/11/24 08:59 Last Admin: 03/13/24 09:45 Dose: 5 mg Cyanocobalamin (Cyanocobalamin (B-12) 500 Mcg Tablet) 1,000 mcg PO Q48H [facility] Stop: 04/11/24 08:59 Last Admin: 09/06/24 08:10 Dose: 1,000 mcg Duloxetine HCl (Duloxetine Hcl 60 Mg Cap) 60 mg [facility] [place] Stop: 04/11/24 08:59 Last Admin: 03/13/24 09:44 Dose: 60 mg Levothyroxine Sodium (Levothyroxine Sodium 75 Mcg Tablet) 75 mcg PO DAILYBB [facility] Stop: 04/11/24 06:29 Last Admin: 03/13/24 09:47 Dose: 75 mcg Lorazepam (Lorazepam 0.5 Mg Tab) 0.25 mg PO DAILY PRN PRN Reason: anxiety Stop: 04/10/24 22:54 Metoprolol Succinate (Metoprolol Succ 50mg Ext Rel Tab) 50 mg PO BID [facility] Stop: 04/10/24 22:54 Last Admin: 03/13/24 09:44 Dose: 50 mg Montelukast Sodium (Montelukast Sodium 10 Mg Tablet) 10 mg PO [facility] Stop: 04/11/24 08:59 Last Admin: 03/13/24 10:12 Dose: 10 mg Pantoprazole Sodium (Pantoprazole 40 Mg Tab) 40 mg PO [facility] Stop: 04/11/24 20:59 Last Admin: 03/12/24 21:06 Dose: 40 mg Potassium Chloride (Potassium Chloride Crtab 20 Meq Tabcr) 20 meq PO [facility] Stop: 04/11/24 11:29 Last Admin: 03/13/24 10:12 Dose: 20 meq Terazosin HCl (Terazosin Hcl 5 Mg Cap) 5 mg PO [facility] Stop: 04/11/24 20:59 Last Admin: 03/12/24 21:05 Dose: 5 mg Trazodone HCl (Trazodone Hcl 100 Mg Tab) 100 mg PO [facility] Stop: 04/11/24 20:59 Last Admin: 03/12/24 21:05 Dose: 100 mg Triamcinolone Acetonide (Triamcinolone Acet 0.1% Cr 15 Gm Tube) 1 appln TOP BID PRN PRN Reason: flare up Stop: 04/10/24 22:54
[2024-03-14 09:30] LABS: BUN Creatinine Ratio 18.6 (10-20); Calcium 7.5 mg/dl (8.6-10.3); Creatinine Clr Calc Pharmacy 42.7 ml/min; Est GFR (African American) 43.2 ml/min; Est GFR (Non-African American) 37.3 ml/min; Magnesium 1.8 mg/dl (1.7-2.4)
[2024-03-14 09:36] LABS: Potassium 3.3 mmol/L (3.5-5.1)
[2024-03-14] MEDS: FUROSEMIDE 20 MG TAB PO SCH (10:53)
--- NOTE | 2024-03-14 13:47 | Hospitalist Progress Note ---
Date of Service March 14, 2024 Assessment & Plan (1) Acute on chronic diastolic heart failure with preserved ejection fraction: Plan: Patient 83-year-old gentleman who presents with acute hypoxic respiratory failure due to decompensated diastolic heart failure with preserved ejection fraction noncompliance with CPAP. Has been diuresing enough with intravenous furosemide Restrict her fluid intake of 2000 mL/day Appreciate cardiology input and recommendation Echo of the heart showed mild concentric LVH, LV systolic function is normal, LVEF is 55 to 60%, LV wall motion is normal and Doppler assessment of left ventricular diastolic function is intermediate due to the underlying irregular rhythm Kidney function is slightly worse today with creatinine went up to 1.9 We will hold intravenous diuretics now and start oral from tomorrow at an increasing dose of 60 mg as per the stack supervisor Monitor and replace electrolytes Clinically much better without any acute distress and no shortness of breath Will start oral furosemide at a dose of 60 mg/day Will monitor PRP and also chest x-ray tomorrow PT OT evaluation and possible discharge tomorrow (2) Acute hypoxemic respiratory failure: Plan: Secondary to above Requiring 2 L to maintain saturation Titrate oxygen off as able, patient may need to be considered for home oxygen Will need to have a 2 steps O2 saturation test prior to discharge (3) Sleep apnea treated with continuous positive airway pressure (CPAP): Plan: Strongly advised to use CPAP as advised to avoid complications (4) Chronic atrial fibrillation: Plan: Continue chronic anticoagulation with atrial fibrillation dosed appropriately for age and renal function Continue beta-shannon for rate control of atrial fibrillation (5) CKD (chronic kidney disease), stage III: (6) Hypothyroidism: Plan: Continue supplement DVT prophylaxis On Eliquis CODE STATUS Full (7) Cardiac pacemaker in situ: Admission and Anticipated Discharge Date Admission Date: March 11, 2024 Subjective 03/13/2024 Patient was seen and examined in telemetry unit He has been feeling much better today Still has shortness of breath with minimal exertion Denies any chest pain, palpitation, any fever and or chills, no nausea no vomiting He has been saturating normally on 2 L via nasal cannula 03/14/2024 The patient was seen and examined in telemetry unit He has been feeling much better denies any significant symptoms Has been saturating normally on room air Review of Systems Review of Systems: All systems reviewed and are unremarkable except as noted below Physical Exam Physical Exam: Sitting on a chair without any acute distress. Constitutional: well developed, well nourished, + ill appearing and + obese Eyes: PERRL, conjunctivae normal, anicteric sclerae ENMT: external ear and nose normal, oropharynx normal Neck: trachea midline, no thyromegaly Respiratory: no respiratory distress Auscultation: + diminished lung sounds and + crackles (Occasional crackles at the bases) Cardiovascular: Rate/Rhythm: regular rate and regular rhythm; not tachycardic Heart Sounds: normal S1 and normal S2; no murmur Extremities: + edema (1+ edema bilateral) Gastrointestinal (Abdomen): Inspection/Auscultation: normal bowel sounds; abdomen not distended Percussion/Palpation: abdomen soft; abdomen nontender Neurologic: normal touch/pain/proprioception and moves all extremities; no focal motor deficits Psychiatric: A+Ox3, euthymic affect Lymphatic: no cervical or axillary lymphadenopathy Results & Data Results & Data Vital Signs (Past 12 Hours) Vital Signs Temp Pulse Pulse Resp BP Pulse Ox O2 Del Method 03/14/24 12:36 84 03/14/24 12:36 Room Air 03/14/24 11:33 36.4 C L 83 15 127/78 94 Room Air 03/14/24 08:00 03/14/24 07:20 36.8 C 80 16 114/68 94 Nasal Cannula 03/14/24 03:35 36.9 C 79 17 99/64 L 93 Nasal Cannula O2 Del Method O2 Flow Rate 03/14/24 12:36 03/14/24 12:36 03/14/24 11:33 03/14/24 08:00 Room Air 03/14/24 07:20 1 03/14/24 03:35 1 Laboratory Results [facility] 03/14/24 07:30 Sodium 142 Potassium 3.3 L Chloride 100 Carbon Dioxide 32 BUN 31 H Creatinine 1.67 H D Glucose 116 H Calcium 7.5 L Medications Administered Current Inpatient Medications Acetaminophen (Acetaminophen 325 Mg Tab) 650 mg PO Q4H PRN PRN Reason: Pain or Fever Stop: 04/10/24 22:54 Allopurinol (Allopurinol 300 Mg Tab) 300 mg PO QAM [facility] Stop: 04/11/24 08:59 Last Admin: 03/14/24 09:48 Dose: 300 mg Apixaban (Apixaban 2.5 Mg Tab) 2.5 mg PO BID [facility] Stop: 04/10/24 22:54 Last Admin: 03/14/24 09:47 Dose: 2.5 mg Atorvastatin Calcium (Atorvastatin 10 Mg Tab) 5 mg PO QAM [facility] Stop: 04/11/24 08:59 Last Admin: 03/14/24 09:49 Dose: 5 mg Cyanocobalamin (Cyanocobalamin (B-12) 500 Mcg Tablet) 1,000 mcg PO Q48H [facility] Stop: 04/11/24 08:59 Last Admin: 03/14/24 09:48 Dose: 1,000 mcg Duloxetine HCl (Duloxetine Hcl 60 Mg Cap) [facility] [place] Stop: 04/11/24 08:59 Last Admin: 03/14/24 09:49 Dose: 60 mg Furosemide (Furosemide 20 Mg Tab) [facility] [place] Stop: 04/13/24 09:44 Last Admin: 03/14/24 10:53 Dose: 60 mg Levothyroxine Sodium (Levothyroxine Sodium 75 Mcg Tablet) 75 mcg PO DAILYBB [facility] Stop: 04/11/24 06:29 Last Admin: 03/14/24 06:28 Dose: 75 mcg Lorazepam (Lorazepam 0.5 Mg Tab) 0.25 mg PO DAILY PRN PRN Reason: anxiety Stop: 04/10/24 22:54 Metoprolol Succinate (Metoprolol Succ 50mg Ext Rel Tab) 50 mg PO BID [facility] Stop: 04/10/24 22:54 Last Admin: 03/14/24 09:48 Dose: 50 mg Montelukast Sodium (Montelukast Sodium 10 Mg Tablet) 10 mg PO [facility] Stop: 04/11/24 08:59 Last Admin: 03/14/24 09:50 Dose: 10 mg Pantoprazole Sodium (Pantoprazole 40 Mg Tab) 40 mg PO [facility] Stop: 04/11/24 20:59 Last Admin: 03/13/24 20:40 Dose: 40 mg Potassium Chloride (Potassium Chloride Crtab 20 Meq Tabcr) [facility] meq [facility] [place] Stop: 04/11/24 11:29 Last Admin: 03/14/24 10:14 Dose: 20 meq Terazosin HCl (Terazosin Hcl 5 Mg Cap) 5 mg PO [facility] Stop: 04/11/24 20:59 Last Admin: 03/13/24 20:40 Dose: 5 mg Trazodone HCl (Trazodone Hcl 100 Mg Tab) 100 mg PO HS [facility] Stop: 04/11/24 20:59 Last Admin: 03/13/24 20:40 Dose: 100 mg Triamcinolone Acetonide (Triamcinolone Acet 0.1% Cr 15 Gm Tube) 1 appln TOP BID PRN PRN Reason: flare up Stop: 04/10/24 22:54
[2024-03-15 06:52] LABS: BUN Creatinine Ratio 17.4 (10-20); Calcium 7.5 mg/dl (8.6-10.3); Creatinine Clr Calc Pharmacy 41.6 ml/min; Est GFR (African American) 41.7 ml/min; Potassium 3.5 mmol/L (3.5-5.1)
--- NOTE | 2024-03-15 11:24 | Hospitalist Progress Note ---
Date of Service March 15, 2024 Assessment & Plan (1) Acute on chronic diastolic heart failure with preserved ejection fraction: Plan: Patient 83-year-old gentleman who presents with acute hypoxic respiratory failure due to decompensated diastolic heart failure with preserved ejection fraction noncompliance with CPAP. Has been diuresing enough with intravenous furosemide Restrict her fluid intake of 2000 mL/day Appreciate cardiology input and recommendation Echo of the heart showed mild concentric LVH, LV systolic function is normal, LVEF is 55 to 60%, LV wall motion is normal and Doppler assessment of left ventricular diastolic function is intermediate due to the underlying irregular rhythm Kidney function is slightly worse today with creatinine went up to 1.9 We will hold intravenous diuretics now and start oral from tomorrow at an increasing dose of 60 mg as per the program engagement director Monitor and replace electrolytes Clinically much better without any acute distress and no shortness of breath Will start oral furosemide at a dose of 60 mg/day Will monitor PRP and also chest x-ray tomorrow PT OT evaluation and possible discharge tomorrow Remains medically stable Chest x-ray showing improvement of CHF Following PT and OT he will be discharged home (2) Acute hypoxemic respiratory failure: Plan: Secondary to above Requiring 2 L to maintain saturation Titrate oxygen off as able, patient may need to be considered for home oxygen Will need to have a 2 steps O2 saturation test prior to discharge Will get 2 steps O2 saturation test prior to discharge (3) Sleep apnea treated with continuous positive airway pressure (CPAP): Plan: Strongly advised to use CPAP as advised to avoid complications (4) Chronic atrial fibrillation: Plan: Continue chronic anticoagulation with atrial fibrillation dosed appropriately for age and renal function Continue beta-shannon for rate control of atrial fibrillation (5) CKD (chronic kidney disease), stage III: (6) Hypothyroidism: Plan: Continue supplement DVT prophylaxis On Eliquis CODE STATUS Full (7) Cardiac pacemaker in situ: Admission and Anticipated Discharge Date Admission Date: March 11, 2024 Subjective 03/13/2024 Patient was seen and examined in telemetry unit He has been feeling much better today Still has shortness of breath with minimal exertion Denies any chest pain, palpitation, any fever and or chills, no nausea no vomiting He has been saturating normally on 2 L via nasal cannula 03/14/2024 The patient was seen and examined in telemetry unit He has been feeling much better denies any significant symptoms Has been saturating normally on room air 03/15/2024 The patient was seen and examined in telemetry unit He has been feeling much better and does not have any shortness of breath, palpitation, chest pain, nausea or vomiting He will have PT and OT evaluation prior to discharge home this afternoon Review of Systems Review of Systems: All systems reviewed and are unremarkable except as noted below Physical Exam Physical Exam: Sitting on a chair without any acute distress. Constitutional: well developed, well nourished, + ill appearing and + obese Eyes: PERRL, conjunctivae normal, anicteric sclerae ENMT: external ear and nose normal, oropharynx normal Neck: trachea midline, no thyromegaly Respiratory: no respiratory distress Auscultation: + diminished lung sounds and + crackles (Occasional crackles at the bases) Cardiovascular: Rate/Rhythm: regular rate and regular rhythm; not tachycardic Heart Sounds: normal S1 and normal S2; no murmur Extremities: + edema (1+ edema bilateral) Gastrointestinal (Abdomen): Inspection/Auscultation: normal bowel sounds; abdomen not distended Percussion/Palpation: abdomen soft; abdomen nontender Neurologic: normal touch/pain/proprioception and moves all extremities; no focal motor deficits Psychiatric: A+Ox3, euthymic affect Lymphatic: no cervical or axillary lymphadenopathy Results & Data Results & Data Vital Signs (Past 12 Hours) Vital Signs Temp Pulse Pulse Resp BP Pulse Ox Pulse Ox 03/15/24 10:58 36.5 C 68 17 148/85 H 94 03/15/24 08:00 03/15/24 08:00 94 03/15/24 07:16 36.6 C 76 19 130/84 97 03/15/24 03:47 36.7 C 78 18 93/60 L 97 03/15/24 00:46 78 03/15/24 00:00 94 03/14/24 23:46 36.7 C 81 20 117/75 94 O2 Del Method O2 Del Method O2 Flow Rate 03/15/24 10:58 Room Air 03/15/24 08:00 Room Air 03/15/24 08:00 Room Air 03/15/24 07:16 Nasal Cannula 1 03/15/24 03:47 Nasal Cannula 2 03/15/24 00:46 03/15/24 00:00 Room Air 03/14/24 23:46 Room Air Laboratory Results BMP 03/15/24 06:09 Sodium 142 Potassium 3.5 Chloride 102 Carbon Dioxide 33 H BUN 30 H Creatinine 1.72 H Glucose 110 H Calcium 7.5 L Medications Administered Current Inpatient Medications Acetaminophen (Acetaminophen 325 Mg Tab) 650 mg PO Q4H PRN PRN Reason: Pain or Fever Stop: 04/10/24 22:54 Allopurinol (Allopurinol 300 Mg Tab) 300 mg PO QAM [facility] Stop: 04/11/24 08:59 Last Admin: 03/15/24 07:49 Dose: 300 mg Apixaban (Apixaban 2.5 Mg Tab) 2.5 mg PO BID [facility] Stop: 04/10/24 22:54 Last Admin: 03/15/24 07:48 Dose: 2.5 mg Atorvastatin Calcium (Atorvastatin 10 Mg Tab) [facility] [place] [place] Stop: 04/11/24 08:59 Last Admin: 03/15/24 07:49 Dose: 5 mg Cyanocobalamin (Cyanocobalamin (B-12) 500 Mcg Tablet) 1,000 mcg PO Q48H [facility] Stop: 04/11/24 08:59 Last Admin: 03/14/24 09:48 Dose: 1,000 mcg Duloxetine HCl (Duloxetine Hcl 60 Mg Cap) [facility] [place] [place] Stop: 04/11/24 08:59 Last Admin: 03/15/24 07:49 Dose: 60 mg Furosemide (Furosemide 20 Mg Tab) 60 mg PO QAM [facility] Stop: 04/13/24 09:44 Last Admin: 03/15/24 07:49 Dose: 60 mg Levothyroxine Sodium (Levothyroxine Sodium 75 Mcg Tablet) 75 mcg PO DAILYBB [facility] Stop: 04/11/24 06:29 Last Admin: 03/15/24 05:41 Dose: 75 mcg Lorazepam (Lorazepam 0.5 Mg Tab) 0.25 mg PO DAILY PRN PRN Reason: anxiety Stop: 04/10/24 22:54 Metoprolol Succinate (Metoprolol Succ 50mg Ext Rel Tab) 50 mg PO BID [facility] Stop: 04/10/24 22:54 Last Admin: 03/15/24 07:47 Dose: 50 mg Montelukast Sodium (Montelukast Sodium 10 Mg Tablet) 10 mg PO QAM [facility] Stop: 04/11/24 08:59 Last Admin: 09/09/24 07:49 Dose: 10 mg Pantoprazole Sodium (Pantoprazole 40 Mg Tab) 40 mg PO HS [facility] Stop: 04/11/24 20:59 Last Admin: 03/14/24 20:12 Dose: 40 mg Potassium Chloride (Potassium Chloride Crtab 20 Meq Tabcr) 20 meq PO QAM [facility] Stop: 04/11/24 11:29 Last Admin: 03/15/24 07:53 Dose: 20 meq Terazosin HCl (Terazosin Hcl 5 Mg Cap) 5 mg PO HS [facility] Stop: 04/11/24 20:59 Last Admin: 03/14/24 20:12 Dose: 5 mg Trazodone HCl (Trazodone Hcl 100 Mg Tab) 100 mg PO HS [facility] Stop: 04/11/24 20:59 Last Admin: 03/14/24 20:12 Dose: 100 mg Triamcinolone Acetonide (Triamcinolone Acet 0.1% Cr 15 Gm Tube) 1 appln TOP BID PRN PRN Reason: flare up Stop: 04/10/24 22:54
--- NOTE | 2024-03-15 12:00 | XRay Report ---
XR chest 2V PA/lateral CLINICAL HISTORY: Congestive heart failure. COMPARISON STUDY: Chest radiograph March 12, 2024. FINDINGS: Left subclavian pacer is in place. There is no pneumothorax or pleural effusion. Mild eleva tion/eventration of the right hemidiaphragm is unchanged. Mild cardiomegaly is again noted. Mediastin al contours are stable. Mild pulmonary edema similar to prior exam. IMPRESSION: Cardiomegaly. No change in mild pulmonary edema. ACT 112: Negative or not required by law. Electronically signed by: Kyler Lim M.D. 03/15/2024 11:59 AM
[2024-03-15 15:49] VITALS: BP 151/90; PULSE 72; RESP 19; TEMP 97.3
[2024-03-15 16:52] VITALS: O2SAT 96
--- NOTE | 2024-03-16 07:30 | Discharge Summary ---
Date of Service March 16, 2024 Admission HPI Per Admitting Provider History obtained from patient and records. Medical history significant for chronic diastolic heart failure (EF 60 to 60% TTE 2023), nonobstructive CAD as per records, chronic LBBB, hypertension, hyperlipidemia, recurrent AF, SSS status post PPM, pulmonary embolism on Eliquis, NAHEED (currently CPAP noncompliant), CRI (baseline creatinine 1.7), chronic anemia (baseline hemoglobin 12-13), multiple myeloma status post Rx, hypothyroidism, prediabetes, immunoglobulin deficiency, GERD, RLS, mood disorder, history recurrent C. difficile. 2 admissions in December 2023. Recent confinement last week of December for encephalopathy in the setting of complicated UTI, following prostate surgery. 1 week history of intermittent shortness of breath somewhat worse on exertion. No chest pain, no cough. Compliant with home meds. Not sure about weight gain or fluid retention at home. Denies headache or abdominal pain. Not compliant with CPAP the last 6 months. Home pulse ox 60s to 70s. Patient seen at PCP's office today. Pulse ox noted to be 70s at the office. EMS called to PCPs office. IV Lasix administered at the ER. 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 Admission Exam Per Admitting Provider Physical Exam: GENERAL: Comfortable, pleasant, morbidly obese, no respiratory distress SKIN: Pallor, warm HEENT: Alopecia, pale palpebral conjunctivae, no ptosis, moist buccal mucosa, nasal cannula in place NECK : Supple, short neck, no tenderness CHEST : Decreased breath sounds, no tenderness HEART : Irregular, systolic murmur ABDOMEN: Some distention, nontender EXTREMITIES : Minimal LE swelling, no LE tenderness, no other conspicuous deformities noted NEUROLOGIC : Coherent, no facial asymmetry, no other gross focality Principal Diagnosis Acute on chronic diastolic heart failure Discharge Exam Sitting on a chair without any acute distress. Constitutional well developed, well nourished, + ill appearing and + obese Eyes PERRL, conjunctivae normal, anicteric sclerae ENMT external ear and nose normal, oropharynx normal Neck trachea midline, no thyromegaly Respiratory no respiratory distress Auscultation: + diminished lung sounds and + crackles (Occasional crackles at the bases) Cardiovascular Rate/Rhythm: regular rate and regular rhythm; not tachycardic Heart Sounds: normal S1 and normal S2; no murmur Extremities: + edema (1+ edema bilateral) Gastrointestinal (Abdomen) Inspection/Auscultation: normal bowel sounds; abdomen not distended Percussion/Palpation: abdomen soft; abdomen nontender Neurologic normal touch/pain/proprioception and moves all extremities; no focal motor deficits Psychiatric A+Ox3, euthymic affect Lymphatic no cervical or axillary lymphadenopathy Discharge Data Allergies Allergy/AdvReac Type Severity Reaction Status Date / Time COVID-19 vaccine, mRNA, AdvReac Unknown probable Verified 03/11/24 20:00 [id number], L reaction: [From [place] (PF)] throat swelling Consultations 03/11/24 19:29 ED Decision to Admit Stat 03/11/24 22:55 Consult Cardiology Routine Hospital Course (1) Acute on chronic diastolic heart failure with preserved ejection fraction: Patient 83-year-old gentleman who presents with acute hypoxic respiratory failure due to decompensated diastolic heart failure with preserved ejection fraction noncompliance with CPAP. Has been diuresing enough with intravenous furosemide Restrict her fluid intake of 2000 mL/day Appreciate cardiology input and recommendation Echo of the heart showed mild concentric LVH, LV systolic function is normal, LVEF is 55 to 60%, LV wall motion is normal and Doppler assessment of left ventricular diastolic function is intermediate due to the underlying irregular rhythm Kidney function is slightly worse today with creatinine went up to 1.9 We will hold intravenous diuretics now and start oral from tomorrow at an increasing dose of 60 mg as per the chairman of the board Monitor and replace electrolytes Clinically much better without any acute distress and no shortness of breath Will start oral furosemide at a dose of 60 mg/day Will monitor PRP and also chest x-ray tomorrow PT OT evaluation and possible discharge tomorrow Remains medically stable Chest x-ray showing improvement of CHF Following PT and OT he will be discharged home (2) Acute hypoxemic respiratory failure: Secondary to above Requiring 2 L to maintain saturation Titrate oxygen off as able, patient may need to be considered for home oxygen Will need to have a 2 steps O2 saturation test prior to discharge Will get 2 steps O2 saturation test prior to discharge (3) Sleep apnea treated with continuous positive airway pressure (CPAP): Strongly advised to use CPAP as advised to avoid complications (4) Chronic atrial fibrillation: Continue chronic anticoagulation with atrial fibrillation dosed appropriately for age and renal function Continue beta-shannon for rate control of atrial fibrillation (5) CKD (chronic kidney disease), stage III: (6) Hypothyroidism: Continue supplement DVT prophylaxis On Eliquis CODE STATUS Full (7) Cardiac pacemaker in situ: Total Time Total Time Spent Total Time Spent (In Minutes): 40 minutes Discharge Plan Discharge Items Patient Disposition: Home - Home Health Services Reason For Visit: RESP FAILURE Discharge Diagnosis: Acute on chronic diastolic heart failure Condition on Discharge: Fair Activity: As commented below Activity Comment: Continue with home PT and OT Non-emergency contact: Primary Care Provider Call non-emergency contact if: you have any medication questions and your symptoms worsen Follow-up/Referrals: Telma Jacobs CRNP [Primary Care Provider] - (Date & Time 03/16/2024 10:00 AM Provider Telma Jacobs CRNP Department Family Practice [facility] ) Anna Rojas CRNP [Nurse Practitioner] - (Date & Time 04/27/2024 10:30 AM Provider Anna Rojas CRNP Department Cardiology, [facility] ) Diet: Heart Healthy Fluids: 2000ml (8 cups) Addtl Attending Provider Instructions: Please take precautions to avoid falls Take your medications as advised Your furosemide has been increased to 60 mg once a day Please keep appointments with your healthcare providers Pending Studies at Discharge: No Stand-Alone Forms: My [employer], Smoking Cessation Medications and DC Order Prescriptions: New torsemide 60 mg tablet 60 mg PO DAILY Qty: 30 0RF Continued albuterol sulfate 90 mcg/actuation HFA aerosol inhaler 2 puff inhalation QID PRN (Reason: Shortness Of Breath Or Wheezing) Rx Instructions: Unable to verify medication at this date/time acyclovir 400 mg tablet 400 mg PO BID terazosin 5 mg Capsule 5 mg PO HS atorvastatin 10 mg Tablet 5 mg PO QAM Rx Instructions: TAKE HALF A TABLET DAILY omeprazole 40 mg Capsule,Delayed Release(Dr/Ec) 40 mg PO HS allopurinol 300 mg Tablet 300 mg PO QAM cholecalciferol (vitamin D3) [Vitamin D3] 2,000 unit Capsule 2,000 unit PO QAM Rx Instructions: Unable to verify OTC meds at this date/time. magnesium oxide 400 mg magnesium capsule 400 mg PO BID Qty: 60 0RF Rx Instructions: Unable to verify OTC meds at this date/time. potassium chloride 20 mEq tablet extended release 20 meq PO QAM cyanocobalamin (vitamin B-12) 1,000 mcg Tablet 1,000 mcg PO Q2D Rx Instructions: Unable to verify OTC meds at this date/time. triamcinolone acetonide 0.1 % cream 1 applic TOPICAL BID PRN (Reason: flare up) montelukast 10 mg tablet 10 mg PO QAM Eliquis 2.5 mg Tablet 2.5 mg PO BID Qty: 60 0RF diphenoxylate-atropine [Lomotil] 2.5-0.025 mg Tablet 1 tab PO QID PRN (Reason: Diarrhea) metoprolol succinate 50 mg tablet extended release 24 hr 50 mg PO BID levothyroxine 75 mcg tablet 75 mcg PO QAM lorazepam [Ativan] 0.5 mg tablet 0.25 mg PO DAILY PRN (Reason: anxiety) Qty: 10 0RF duloxetine 60 mg capsule,delayed release(DR/EC) 60 mg PO QAM trazodone 100 mg Tablet 100 mg PO HS Discontinued torsemide 20 mg tablet 40 mg PO QAM Discharge Orders: Discharge Order (Routine); Ordered 03/15/24 Ordered By: Erick Parker Discharge Order- CHF (Routine); Ordered 03/16/24 Ordered By: Erick Parker Admission Data Admit Date/Time: 03/11/24 21:41 Attending Provider: Erick Parker Admit Provider: Will Pineda Primary Care Provider: Telma Jacobs Other Providers: Will Pineda; Cassandra Tamez; Kvng Galindo; Dago Forrest; Shakir Barlow; Octavio Bell; Amadeo Gomez Rebecca K; Gilma John; Lulu Flores Ashley M.; Robe Nagel; Gonzalez Montoya; Selina Baker; Lanny Olivo; Anna Rojas; Carlos Velázquez; Cesar Cobian; Sandi Delarosa; Jevon Hawkins Other Interventions: Discharge Summary Assessment (RN) Last Done: 03/15/24 16:50
== END 2024-03-15 17:27 | disposition home health service (06) | DRG 291 ==
LOC: ED 16:44 → 2S 21:41 → SUATTDRO 21:41 → 2S 22:02

== ENCOUNTER 2024-03-25 10:16 | Inpatient (IN) ==
--- NOTE | 2024-03-25 10:43 | Emergency Department Note ---
Impression & Plan COVID-19, Hypoxia ED Provider Note Name: VANESSA CURTIS Age: 83 Sex: Male Arrives Via: Ambulance Informant: Patient, EMS, nursing staff ED Provider: Saman Leyva MD Chief Complaint: Shortness of breath Impression: As per impressions above Medical Decision Making: Pleasant 83-year-old gentleman with a long history of CHF COPD arrives for evaluation of worsening shortness of breath and hypoxia since this morning. On arrival patient is really no distress. His sats are in the 80s on room air. He does not routinely use oxygen. Some crackles bilateral lung foster. Patient tested positive for COVID 5 days ago. He was given IV Decadron as per protocol. He does not have any evidence of significant secondary infection at this time. He is not septic. Patient is already anticoagulated I do not feel that CT PE is necessary at this time. Hospitalist consulted for further management. Triage/Nursing Notes reviewed by Me External Chart Review by me: I reviewed discharge summary from 03/16/2024 discussing reason for recent hospitalization CHF exacerbation with pulmonary edema. Differential:Reactive airway disease, pneumonia, pneumothorax, COPD, CHF, infections, cardiac ischemia, pulmonary embolism, musculoskeletal, gastrointestinal, as well as other pathologies. Vital Signs: reviewed and remarkable for hypoxia Interventions: Decadron 10mg IV, NC O2 Labs:ED labs Reviewed by me and remarkable for no significant abnormalities Imaging:X ray results are stated below per my interpretation: Chest: 1 view: No infiltrate, no effusion, normal cardiac border. EKG:As per my interpretation. Indication shortness of breath. Ventricularly paced at 76 bpm with a QTc of 426. There is no ectopy nor ischemia. Compared to EKG of March 11, 2024 there is no significant change. Cardiac/Tele Monitoring: Cardiac Monitoring: An Order was placed for continuous cardiac monitoring. The monitor shows a rate of 70 with a paced rhythm. Consults:Discussed with [facility] hospitalist service who will further evaluate for hospitalization. Plan: Disposition:Hospitalization. Condition: Good History of Present Illness: 83-year-old gentleman arrives for evaluation of hypoxia. Patient notes he has a long history of lung and heart issues with recent hospitalization about 10 days ago for congestive failure. About 5 days ago was diagnosed with COVID and is currently on an anti-COVID medication. Patient states that he had been feeling well other than maybe a bit tired congested and fatigued. This morning home health nurse evaluated him and noted oxygen in the 80s. EMS was called. Patient was placed on nasal cannula O2 and transferred to ER. Patient states he feels well he denies any chest pain, shortness of breath, back pain, abdominal pain, nausea, vomiting, other concerning signs or symptoms. Denies any falls, trauma, injuries. No known sick contacts. Past Medical History:See Below Home Medications:See Below Allergies:See Below Vitals:Blood Pressure: 120/70, Pulse 70, RR 21, T 36.7 C, O2 85% on RA Physical Exam: GENERAL: Patient is chronically unwell appearing and in no acute distress. RESPIRATORY: Mild dyspnea, crackles throughout CARDIOVASCULAR: Irregular GASTROINTESTINAL: Abdomen soft, non-tender, no peritonitis. EXTREMITIES: Normal motion all extremities, no cyanosis, mild edema. NEUROLOGIC: Alert and oriented. No focal neurologic deficits appreciated SKIN: No rash, no jaundice, no diaphoresis. PSYCH: Appropriate GCS: 15 ED Course: Times/Reassessments: Patient breathing comfortably on 3 L nasal cannula agreeable to hospitalization. Saman Leyva MD Past Med/Surg History Problem List (Updated 03/25/24 @ 11:53 by Saman Leyva MD) Hypoxia (Acute) COVID-19 (Acute) Sleep apnea treated with continuous positive airway pressure (CPAP) Chronic atrial fibrillation Acute respiratory acidosis (Acute) Elevated brain natriuretic peptide (BNP) level (Acute) Pulmonary edema (Acute) Acute exacerbation of CHF (congestive heart failure) (Acute) Acute hypoxemic respiratory failure (Acute) Acute dyspnea (Acute) Acute delirium (Acute) 12/29/23 Altered mental status 12/29/23 Chronic retention of urine (Chronic) Multiple myeloma (Acute) Bladder calculi (Acute) Lower abdominal pain (Acute) 12/12/23 Confusion (Acute) 12/12/23 Cardiac pacemaker in situ Nausea (Acute) 01/28/23 Abdominal pain (Acute) 01/28/23 Breathlessness (Acute) 01/28/23 Confusion 01/23/23 Hypoxia (Acute) 01/23/23 Acute on chronic diastolic heart failure with preserved ejection fraction 01/23/23 Monoclonal paraproteinemia Hypomagnesemia Exertional shortness of breath 11/29/22 Atrial fibrillation with rapid ventricular response (Acute) Anemia duplicate Encounter for pre-operative examination DVT prophylaxis Dysphagia Respiratory failure with hypoxia 07/15/21 Pneumonia due to COVID-19 virus 07/15/21 UTI (urinary tract infection) (Acute) 07/15/21 Anemia (Acute) Acute on chronic diastolic CHF (congestive heart failure) 05/07/21 History of pulmonary embolism Pleural effusion, left 05/07/21 Pericardial effusion 05/07/21 Monoclonal B-cell lymphocytosis Atrial fibrillation BPH (benign prostatic hyperplasia) History of hip surgery H/O knee surgery Morbid (severe) obesity due to excess calories CKD (chronic kidney disease), stage III LBBB (left bundle branch block) ? 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 Bladder calculi History of anemia Hx of gout Sleep apnea Confusion Chronic diarrhea Anxiety and depression Multiple myeloma (2018) SOB (shortness of breath) History of pulmonary embolism History of DVT (deep vein thrombosis) Thrombocytopenia Pneumonia due to COVID-19 virus Atrial fibrillation with rapid ventricular response (05/2021) 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 Chronic diastolic CHF (congestive heart failure) Chronic sinusitis Hypothyroidism CAD (coronary artery disease) Klebsiella infection Escherichia coli infection Nonobstructive atherosclerosis of coronary artery (05/2010) Neuralgia Hyperlipidemia History of paroxysmal supraventricular tachycardia Prolonged QT interval GERD (gastroesophageal reflux disease) BPH without obstruction/lower urinary tract symptoms Carpal tunnel syndrome Restless leg syndrome Surgical History History of cystoscopy (12/14/23) History of surgery (07/2019) History of cardiac cath (2009) History of revision of total knee arthroplasty History of pacemaker (06/2021) History of thoracentesis (07/2019) History of appendectomy (05/2019) History of esophagogastroduodenoscopy (EGD) (07/2022) History of colonoscopy (07/2022) History of tooth extraction History of cataract surgery History of total right hip arthroplasty H/O sinus surgery History of bilateral knee arthroplasty Hx of cholecystectomy Family History Father Heart disease Mother Diabetes Hypertension Brother Family hx of colon cancer Brother Family hx of colon cancer Social History Smoking Status: Never smoker Second Hand Exposure: No; Do You Dip or Chew Tobacco: No; Hx Alcohol Use: No Hx Substance Use: No Preferred Language: [place] Communication Ability: Effective Communication Ability Comment: PT DAUGHTER SHADY DAY, SIGNS CONSENTS (PT LIMITED COMPREHENSION) Medical Office Supervisor Required: No Beliefs That Will Affect Care: None marital status: Current Living Situation: Spouse and Family Current Living Situation Comment: pt lives with and daughter How many Children do You have: 2 Feels Safe at Home: Yes Assistive Devices: Cane, CPAP and Walker Allergies Allergies Allergy/AdvReac Type Severity Reaction Status Date / Time COVID-19 vaccine, mRNA, AdvReac Unknown probable Verified 03/11/24 20:00 [id number], L reaction: [From Bradford (PF)] throat swelling Home Meds Home Medications Medication Instructions Recorded Confirmed allopurinol 300 mg tablet 300 mg PO QAM 04/30/18 03/11/24 atorvastatin 10 mg tablet 5 mg PO QAM 04/30/18 03/11/24 cholecalciferol (vitamin D3) 50 2,000 unit PO QAM 04/30/18 03/11/24 mcg (2,000 unit) capsule (Vitamin D3) omeprazole 40 mg capsule,delayed 40 mg PO HS 04/30/18 03/11/24 release terazosin 5 mg capsule 5 mg PO HS 04/30/18 03/11/24 montelukast 10 mg tablet 10 mg PO QAM 05/07/21 03/11/24 diphenoxylate-atropine 2.5 1 tab PO QID PRN Diarrhea 07/10/22 03/11/24 mg-0.025 mg tablet (Lomotil) cyanocobalamin (vitamin B-12) 1,000 mcg PO Q2D 01/23/23 03/11/24 1,000 mcg tablet triamcinolone acetonide 0.1 % 1 applic topical BID PRN flare up 01/23/23 03/11/24 topical cream acyclovir 400 mg tablet 400 mg PO BID 03/28/23 03/11/24 albuterol sulfate 90 mcg/actuation 2 puff inhalation QID PRN 03/28/23 03/11/24 aerosol inhaler Shortness Of Breath Or Wheezing potassium chloride 20 mEq 20 meq PO QAM 10/10/23 03/11/24 tablet,extended release levothyroxine 75 mcg tablet 75 mcg PO QAM 12/08/23 03/11/24 metoprolol succinate 50 mg 50 mg PO BID 12/08/23 03/11/24 tablet,extended release 24 hr duloxetine 60 mg capsule,delayed 60 mg PO QAM 03/11/24 03/11/24 release trazodone 100 mg tablet 100 mg PO HS 03/11/24 03/11/24 Previous Rx's Medication Instructions Recorded apixaban 2.5 mg tablet (Eliquis) 2.5 mg PO BID #60 tabs 07/13/21 magnesium oxide 400 mg PO BID #60 caps 12/01/22 lorazepam 0.5 mg tablet (Ativan) 0.25 mg (1/2 x 0.5 mg) PO DAILY 01/01/24 PRN anxiety #10 tabs torsemide 60 mg tablet 60 mg PO DAILY #30 tabs 03/15/24 Results & Data (ED) Vital Signs Vital Signs - 24 hr 03/25/24 10:16 03/25/24 10:45 03/25/24 11:30 Temperature 37 C Temperature Source Oral Pulse Rate 81 69 Pulse Rate from SpO2 Sensor 69 Respiratory Rate 19 21 Respiratory Effort / Characteristics Non-Labored Respiratory Depth Normal Respiratory Pattern Regular Blood Pressure 120/76 110/74 Blood Pressure Mean 90 80 Pulse Oximetry 90 86 L 99 Oxygen Delivery Method Room Air Nasal Cannula Nasal Cannula Oxygen Flow Rate 0 3 Sepsis Recent Fever Within 48 Hours No Sepsis New/Unexplained Change in Mental Status N/A Sepsis Action Taken by Nursing No Action Required Oxygen Flow Rate - Titration 3 Pulse Oximetry Post Tiitration 100 Laboratory Data 03/25/24 10:40 03/25/24 10:40 Lab Results 03/25/24 Range/Units 10:40 WBC 6.86 (4.8-10.8) K/ul RBC 4.09 L (4.70-6.10) M/uL Hgb 12.8 L (14.0-18.0) g/dl Hct 37.5 L (42.0-52.0) % MCV 91.7 (80.0-100.0) fL MCH 31.3 (25.0-34.0) pg MCHC 34.1 (32.0-36.0) g/dL RDW Std Deviation 48.6 H (36.4-46.3) fL RDW Coeff of [place]u 14.4 (11.5-14.5) % Plt Count 227 (130-400) K/uL MPV 10.9 (9.4-12.4) fL Immature Gran % (Auto) 0.4 % Neut % (Auto) 64.6 % Lymph % (Auto) 19.8 % Fountain % (Auto) 9.6 % Eos % (Auto) 4.7 % Baso % (Auto) 0.9 % Neut # (Auto) 4.43 (1.40-6.50) K/uL Lymph # (Auto) 1.36 (1.20-3.40) K/uL Fountain # (Auto) 0.66 H (0.11-0.59) K/uL Eos # (Auto) 0.32 (0.00-0.50) K/uL Baso # (Auto) 0.06 (0.00-0.20) K/uL Immature Gran # (Auto) 0.03 (0.01-0.20) K/uL Sodium 141 (136-145) mmol/L Potassium 3.5 (3.5-5.1) mmol/L Chloride 98 (98-107) mmol/L Carbon Dioxide 35 H (21-32) mmol/L Anion Gap 8 (3-11) BUN 26 H (6-23) mg/dl Creatinine 1.92 H (0.6-1.4) mg/dl Est Cr Clr Drug Dosing 37.1 ml/min Est GFR ( Amer) 36.5 ml/min Est GFR (Non-Af Amer) 31.5 ml/min BUN/Creatinine Ratio 13.5 (10-20) Glucose 117 H (70-99(Fasting)) mg/dl Calcium 7.6 L (8.6-10.3) mg/dl Magnesium 1.7 (1.7-2.4) mg/dl Total Bilirubin 0.7 (0.2-1.0) mg/dl Direct Bilirubin 0.2 (0-0.2) mg/dl AST 19 (13-39) U/L ALT 10 (7-52) U/L Alkaline Phosphatase 69 (34-104) U/L Troponin I High Sens 9.5 (0-20) pg/ml B-Natriuretic Peptide 124 H (0-100) pg/ml Total Protein 5.9 L (6.0-8.3) gm/dl Albumin 3.7 (3.4-5.0) gm/dl Procalcitonin 0.02 (0-0.5) ng/ml Administered Medications Discontinued Medications Dexamethasone Sodium Phosphate (DexamethasonePf 10 Mg/Ml Vial) 10 mg IV NOW ONE Stop: 03/25/24 10:45 Last Admin: 03/25/24 11:10 Dose: 10 mg Documented By: ERNESTO Imaging Data Radiologist's Impression: Chest X-Ray 03/25/24 10:40 XR chest 1V portable HISTORY: weakness COMPARISON: Chest 03/15/2024. FINDINGS: No pneumothorax. No pleural effusions. There are low lung volumes. No new focal lung consolidations to suggest a pneumonia. Is mild central pulmonary vascular congestion without overt edema. This has slightly improved. There is left-sided dual-chamber pacemaker. No acute fractures. IMPRESSION: Cardiomegaly with mild central pulmonary vascular congestion. This has slightly improved. ACT 112: Negative or not required by law. Electronically signed by: Ang Hurley M.D. 03/25/2024 11:20 AM Discharge Plan Visit Data Chief Complaint: Respiratory Problems Stated Complaint: HYPOXIA ED Provider: Saman Leyva Discharge Problem: COVID-19, Hypoxia Forms Stand Alone Forms: My [facility] Prescriptions Prescriptions: No Action albuterol sulfate 90 mcg/actuation HFA aerosol inhaler 2 puff inhalation QID PRN (Reason: Shortness Of Breath Or Wheezing) Rx Instructions: Unable to verify medication at this date/time acyclovir 400 mg tablet 400 mg PO BID terazosin 5 mg Capsule 5 mg PO HS atorvastatin 10 mg Tablet 5 mg PO QAM Rx Instructions: TAKE HALF A TABLET DAILY omeprazole 40 mg Capsule,Delayed Release(Dr/Ec) 40 mg PO HS allopurinol 300 mg Tablet 300 mg PO QAM cholecalciferol (vitamin D3) [Vitamin D3] 2,000 unit Capsule 2,000 unit PO QAM Rx Instructions: Unable to verify OTC meds at this date/time. magnesium oxide 400 mg magnesium capsule 400 mg PO BID Qty: 60 0RF Rx Instructions: Unable to verify OTC meds at this date/time. potassium chloride 20 mEq tablet extended release 20 meq PO QAM cyanocobalamin (vitamin B-12) 1,000 mcg Tablet 1,000 mcg PO Q2D Rx Instructions: Unable to verify OTC meds at this date/time. triamcinolone acetonide 0.1 % cream 1 applic TOPICAL BID PRN (Reason: flare up) montelukast 10 mg tablet 10 mg PO QAM Eliquis 2.5 mg Tablet 2.5 mg PO BID Qty: 60 0RF diphenoxylate-atropine [Lomotil] 2.5-0.025 mg Tablet 1 tab PO QID PRN (Reason: Diarrhea) metoprolol succinate 50 mg tablet extended release 24 hr 50 mg PO BID levothyroxine 75 mcg tablet 75 mcg PO QAM lorazepam [Ativan] 0.5 mg tablet 0.25 mg PO DAILY PRN (Reason: anxiety) Qty: 10 0RF duloxetine 60 mg capsule,delayed release(DR/EC) 60 mg PO QAM trazodone 100 mg Tablet 100 mg PO HS torsemide 60 mg tablet 60 mg PO DAILY Qty: 30 0RF Referrals Referrals: Telma Jacobs CRNP [Primary Care Provider] -
[2024-03-25 10:59] LABS: Basophils # (auto) 0.06 K/uL (0.00-0.20); Basophils % (auto) 0.9 %; Eosinophils # (auto) 0.32 K/uL (0.00-0.50); Eosinophils % (auto) 4.7 %; Hematocrit (blood only) 37.5 % (42.0-52.0); Hemoglobin 12.8 g/dl (14.0-18.0); Immature Granulocytes # (auto) 0.03 K/uL (0.01-0.20); Immature Granulocytes % (auto) 0.4 %; Lymphocytes # (auto) 1.36 K/uL (1.20-3.40); Lymphocytes % (auto) 19.8 %; Mean Corpuscular Hemoglobin 31.3 pg (25.0-34.0); Mean Corpuscular Hgb Conc 34.1 g/dL (32.0-36.0); Mean Corpuscular Volume 91.7 fL (80.0-100.0); Mean Platelet Volume 10.9 fL (9.4-12.4); Monocytes # (auto) 0.66 K/uL (0.11-0.59); Monocytes % (auto) 9.6 %; Neutrophils # (auto) 4.43 K/uL (1.40-6.50); Neutrophils % (auto) 64.6 %; Platelet Count 227 K/uL (130-400); RDW Coefficient of Variation 14.4 % (11.5-14.5); RDW Standard Deviation 48.6 fL (36.4-46.3); Red Blood Count 4.09 M/uL (4.70-6.10); White Blood Count 6.86 K/ul (4.8-10.8)
[2024-03-25] MEDS: dexAMETHasone**PF** 10 MG/ML VIAL IV ONE (11:10)
[2024-03-25 11:11] LABS: Albumin Level 3.7 gm/dl (3.4-5.0); BUN Creatinine Ratio 13.5 (10-20); Bilirubin Direct 0.2 mg/dl (0-0.2); Bilirubin,Total 0.7 mg/dl (0.2-1.0); Calcium 7.6 mg/dl (8.6-10.3); Creatinine Clr Calc Pharmacy 37.1 ml/min; Est GFR (African American) 36.5 ml/min; Est GFR (Non-African American) 31.5 ml/min; Magnesium 1.7 mg/dl (1.7-2.4); Potassium 3.5 mmol/L (3.5-5.1); Total Protein 5.9 gm/dl (6.0-8.3)
[2024-03-25 11:19] LABS: Troponin I High Sensitivity 9.5 pg/ml (0-20)
--- NOTE | 2024-03-25 11:21 | XRay Report ---
XR chest 1V portable HISTORY: weakness COMPARISON: Chest 03/15/2024. FINDINGS: No pneumothorax. No pleural effusions. There are low lung volumes. No new focal lung consol idations to suggest a pneumonia. Is mild central pulmonary vascular congestion without overt edema. T his has slightly improved. There is left-sided dual-chamber pacemaker. No acute fractures. IMPRESSION: Cardiomegaly with mild central pulmonary vascular congestion. This has slightly improved. ACT 112: Negative or not required by law. Electronically signed by: Ang Hurley M.D. 03/25/2024 11:20 AM
--- NOTE | 2024-03-25 11:43 | History & Physical Report ---
Date of Service March 25, 2024 Assessment & Plan (1) Acute hypoxemic respiratory failure due to COVID-19: Plan: This is an 83 y/o male with chronic HFpEF, nonobstructive CAD, chronic LBBB, HTN, dyslipidemia, recurrent atrial fibrillation, SSS s/p PPM, PE, chronic AC with Eliquis, NAHEED (has been CPAP noncompliant more recently), CKD (baseline creatinine around 1.7), multiple myeloma s/p treatment, hypothyroidism, immunoglobulin deficiency, and other history as outlined below who presented to the ED today with hypoxia. Pt dveloped upper respiratory symptoms six days ago and had a positive test for COVID (known exposure), completed five day course of molnupiravir. This morning, home health came and noted his pulseox was in the 80s on room air so he was referred to the ED for evaluation. - Admit to med telemetry - Continue supplemental O2 - wean as able - IV decadron given in the ED, will continue daily - Pt declined remdesivir, completed the course of molnupiravir - CT chest (non-contrast) for further evaluation - Check VBG, baseline CRP. Initial procal was 0.02 so will hold antibiotics as clinical picture does not seem c/w bacterial infection - BioFire respiratory panel to rule out other potential causes of respiratory failure (2) Chronic heart failure with preserved ejection fraction (HFpEF): Plan: Chronic, stable, without acute exacerbation Continue torsemide but will need to monitor renal function as creatinine bumped from baseline today (3) Chronic atrial fibrillation: Plan: Chronic, stable Continue chronic anticoagulation with Eliquis, rate control with beta shannon (4) CKD (chronic kidney disease), stage III: Plan: Creatinine appears slightly elevated from baseline of 1.7. Will recheck BMP in the AM (5) ASCVD (arteriosclerotic cardiovascular disease): Plan: Chronic, stable Continue outpatient regimen (6) Hypertension: Plan: Chronic, stable Continue outpatient regimen - BPs in the ED have been in the 110s systolic (7) Sleep apnea treated with continuous positive airway pressure (CPAP): Plan: Pt has been intermittently compliant with CPAP - had a follow-up with sleep medicine scheduled yesterday but was unable to attend appointment due to illness CPAP at while admitted, outpatient sleep medicine follow-up Plan Pt seen and reviewed with collaborating physician, Dr. Bloom. Plan of care discussed and as outlined above. Code status: full code DVT prophylaxis: on Eliquis Admit to med telemetry. PT/OT evaluations ordered. Santana Jeff PA-C History of Present Illness Chief Complaint: hypoxia Primary Care Provider: ASHER Eddy This is an 83 y/o male with chronic HFpEF, nonobstructive CAD, chronic LBBB, HTN, dyslipidemia, recurrent atrial fibrillation, SSS s/p PPM, PE, chronic AC with Eliquis, NAHEED (has been CPAP noncompliant more recently), CKD (baseline creatinine around 1.7), multiple myeloma s/p treatment, hypothyroidism, immunoglobulin deficiency, and other history as outlined below who presented to the ED today with hypoxia. Pt was admitted to [facility] 03/11-03/16/24 with acute hyp oxemic respiratory failure and acute on chronic HFpEF. He improved with IV diuresis and was transitioned to po diuretic regimen. He was able to be successfully weaned off O2 and discharged home. He reports doing well initially at home. However, around 03/19, he developed URI symptoms and tested COVID positive. He reports that his entire family has had COVID, specifically that his developed symptoms first. He called his PCP office, who called in a five day course of molnupiravir which patient completed. This morning, home health came to see patient and found his oxygen sats were in the 80s on room air so he was referred to the ED for evaluation. Pt's main complaint at present is fatigue and generalized weakness. He has also had a cough, but he reports that this is improving. He denies feeling more short of breath than baseline. He denies chest pain, palpitations, syncope, N/V/D, sore throat, congestion. Allergies Allergy/AdvReac Type Severity Reaction Status Date / Time COVID-19 vaccine, mRNA, AdvReac Unknown probable Verified 03/11/24 20:00 [id number], L reaction: [From [place] (PF)] throat swelling Home Medications Medication Instructions Recorded Confirmed Type allopurinol 300 mg tablet 300 mg PO QAM 04/30/18 03/25/24 History atorvastatin 10 mg tablet 5 mg PO QAM 04/30/18 03/25/24 History cholecalciferol (vitamin D3) 50 2,000 unit PO QAM 04/30/18 03/25/24 History mcg (2,000 unit) capsule (Vitamin D3) omeprazole 40 mg capsule,delayed 40 mg PO HS 04/30/18 03/25/24 History release terazosin 5 mg capsule 5 mg PO HS 04/30/18 03/25/24 History montelukast 10 mg tablet 10 mg PO QAM 05/07/21 03/25/24 History apixaban 2.5 mg tablet (Eliquis) 2.5 mg PO BID #60 tabs 07/13/21 03/25/24 Rx diphenoxylate-atropine 2.5 1 tab PO QID PRN Diarrhea 07/10/22 03/25/24 History mg-0.025 mg tablet (Lomotil) magnesium oxide 400 mg PO BID #60 caps 12/01/22 03/25/24 Rx cyanocobalamin (vitamin B-12) 1,000 mcg PO Q2D 01/23/23 03/25/24 History 1,000 mcg tablet triamcinolone acetonide 0.1 % 1 applic topical BID PRN flare up 01/23/23 03/25/24 History topical cream acyclovir 400 mg tablet 400 mg PO BID 03/28/23 03/25/24 History albuterol sulfate 90 mcg/actuation 2 puff inhalation QID PRN 03/28/23 03/25/24 History aerosol inhaler Shortness Of Breath Or Wheezing potassium chloride 20 mEq 20 meq PO QAM 10/10/23 03/25/24 History tablet,extended release levothyroxine 75 mcg tablet 75 mcg PO QAM 12/08/23 03/25/24 History metoprolol succinate 50 mg 50 mg PO BID 12/08/23 03/25/24 History tablet,extended release 24 hr lorazepam 0.5 mg tablet (Ativan) 0.25 mg (1/2 x 0.5 mg) PO DAILY 01/01/24 03/25/24 Rx PRN anxiety #10 tabs duloxetine 60 mg capsule,delayed 60 mg PO QAM 03/11/24 03/25/24 History release trazodone 100 mg tablet 100 mg PO HS 03/11/24 03/25/24 History torsemide 60 mg tablet 60 mg PO DAILY #30 tabs 03/15/24 03/25/24 Rx Past Med/Surg History Problem List (Updated 03/25/24 @ 13:39 by Daja Jeff PA-C) Chronic heart failure with preserved ejection fraction (HFpEF) Acute hypoxemic respiratory failure due to COVID-19 Hypoxia (Acute) COVID-19 (Acute) Sleep apnea treated with continuous positive airway pressure (CPAP) Chronic atrial fibrillation Acute respiratory acidosis (Acute) Elevated brain natriuretic peptide (BNP) level (Acute) Pulmonary edema (Acute) Chronic retention of urine (Chronic) Multiple myeloma (Acute) Bladder calculi (Acute) Cardiac pacemaker in situ Monoclonal paraproteinemia Respiratory failure with hypoxia 07/15/21 Anemia (Acute) History of pulmonary embolism Pleural effusion, left 05/07/21 Pericardial effusion 05/07/21 Monoclonal B-cell lymphocytosis Atrial fibrillation BPH (benign prostatic hyperplasia) Morbid (severe) obesity due to excess calories CKD (chronic kidney disease), stage III ASCVD (arteriosclerotic cardiovascular disease) (Chronic) cardiac cath 2009 - non obstructive disease Osteoarthrosis (Chronic) Hypertension Major depression (Chronic) Obstructive sleep apnea on CPAP Insomnia (Chronic) Medical History (Updated 03/25/24 @ 13:39 by Daja Jeff PA-C) Poor historian pt with periods of confusion, daughter Shady completed PAT interview - unaware of dates or many details of surgical history Hx of respiratory failure Osteoarthritis LBBB (left bundle branch block) Hypertension CKD (chronic kidney disease), stage III Chronic retention of urine Cardiac pacemaker in situ Bladder calculi History of anemia Hx of gout Sleep apnea cpap Chronic diarrhea Anxiety and depression Multiple myeloma (2018) current chemo tx monthly- IgG History of pulmonary embolism History of DVT (deep vein thrombosis) Pneumonia due to COVID-19 virus hx Atrial fibrillation with rapid ventricular response (05/2021) hx cardioversion [id number] placed jun 2021 Recurrent Clostridioides difficile infection no current problems Lambda light chain myeloma Chronic diastolic CHF (congestive heart failure) Chronic sinusitis Hypothyroidism CAD (coronary artery disease) Nonobstructive per cardiac cath 05/2010 Klebsiella infection hx Escherichia coli infection hx Nonobstructive atherosclerosis of coronary artery (05/2010) By 05/2010 catheterization Neuralgia face Hyperlipidemia History of paroxysmal supraventricular tachycardia hx Prolonged QT interval ? HX GERD (gastroesophageal reflux disease) BPH without obstruction/lower urinary tract symptoms Carpal tunnel syndrome Restless leg syndrome Surgical History (Updated 03/25/24 @ 13:12 by Daja Jeff PA-C) History of cystoscopy (12/14/23) wtih fulguration of prostate History of surgery (07/2019) Pleurx Catheter History of cardiac cath (2009) ? 2009 - unable to verify - no known hx stent(s)- unsure why History of revision of total knee arthroplasty x 4-5 additional surgeries ? side...d/t infection History of pacemaker (06/2021) ? type- checked January 07, 2024- follows with Patricia (11/19/23) History of thoracentesis (07/2019) No bacterial growth or malignancy Pleurx catheter placed July 2019. Removed September 2019 History of appendectomy (05/2019) History of esophagogastroduodenoscopy (EGD) (07/2022) History of colonoscopy (07/2022) History of tooth extraction ?date History of cataract surgery R/L - ?date History of total right hip arthroplasty x 2, left and right, ? date H/O sinus surgery unknown History of bilateral knee arthroplasty unk date Hx of cholecystectomy ? date Family History Father Heart disease Mother Diabetes Hypertension Brother Family hx of colon cancer Brother Family hx of colon cancer Social History Smoking Status: Never smoker Second Hand Exposure: No; Do You Dip or Chew Tobacco: No; Hx Alcohol Use: No Hx Substance Use: No Preferred Language: [place] Communication Ability: Effective Communication Ability Comment: PT DAUGHTER SHADY DAY, SIGNS CONSENTS (PT LIMITED COMPREHENSION) Clinical Account Executive Required: No Beliefs That Will Affect Care: None marital status: Current Living Situation: Spouse and Family Current Living Situation Comment: pt lives with and daughter How many Children do You have: 2 Feels Safe at Home: Yes Assistive Devices: Cane, CPAP and Walker Review of Systems Review of Systems: All systems reviewed & are unremarkable except as noted in Subjective Physical Exam Physical Exam: General: awake, alert, resting comfortably HEENT: no scleral icterus, moist oral mucosa Heart: irregularly irregular Lungs: mildly diminished at bases but otherwise clear Abdomen: soft, +BS Extremities: no significant pedal edema Skin: warm, dry, no jaundice Neurologic: no confusion or dysarthria, moving all extremities Results & Data Results & Data Vital Signs (Past 12 Hours) Vital Signs Temp Pulse Resp BP Pulse Ox O2 Del Method O2 Flow Rate 03/25/24 10:45 86 L Nasal Cannula 0 03/25/24 10:16 37 C 81 19 120/76 90 Room Air Laboratory Results Lab Results 03/25/24 Range/Units 10:40 WBC 6.86 (4.8-10.8) K/ul RBC 4.09 L (4.70-6.10) M/uL Hgb 12.8 L (14.0-18.0) g/dl Hct 37.5 L (42.0-52.0) % MCV 91.7 (80.0-100.0) fL MCH 31.3 (25.0-34.0) pg MCHC 34.1 (32.0-36.0) g/dL RDW Std Deviation 48.6 H (36.4-46.3) fL RDW Coeff of [place] 14.4 (11.5-14.5) % Plt Count 227 (130-400) K/uL MPV 10.9 (9.4-12.4) fL Immature Gran % (Auto) 0.4 % Neut % (Auto) 64.6 % Lymph % (Auto) 19.8 % [place] % (Auto) 9.6 % Eos % (Auto) 4.7 % Baso % (Auto) 0.9 % Neut # (Auto) 4.43 (1.40-6.50) K/uL Lymph # (Auto) 1.36 (1.20-3.40) K/uL [place] # (Auto) 0.66 H (0.11-0.59) K/uL Eos # (Auto) 0.32 (0.00-0.50) K/uL Baso # (Auto) 0.06 (0.00-0.20) K/uL Immature Gran # (Auto) 0.03 (0.01-0.20) K/uL Sodium 141 (136-145) mmol/L Potassium 3.5 (3.5-5.1) mmol/L Chloride 98 (98-107) mmol/L Carbon Dioxide 35 H (21-32) mmol/L Anion Gap 8 (3-11) BUN 26 H (6-23) mg/dl Creatinine 1.92 H (0.6-1.4) mg/dl Est Cr Clr Drug Dosing 37.1 ml/min Est GFR ( Amer) 36.5 ml/min Est GFR (Non-Af Amer) 31.5 ml/min BUN/Creatinine Ratio 13.5 (10-20) Glucose 117 H (70-99(Fasting)) mg/dl Calcium 7.6 L (8.6-10.3) mg/dl Magnesium 1.7 (1.7-2.4) mg/dl Total Bilirubin 0.7 (0.2-1.0) mg/dl Direct Bilirubin 0.2 (0-0.2) mg/dl AST 19 (13-39) U/L ALT 10 (7-52) U/L Alkaline Phosphatase 69 (34-104) U/L Troponin I High Sens 9.5 (0-20) pg/ml B-Natriuretic Peptide 124 H (0-100) pg/ml Total Protein 5.9 L (6.0-8.3) gm/dl Albumin 3.7 (3.4-5.0) gm/dl Procalcitonin 0.02 (0-0.5) ng/ml Diagnostic Findings Chest X-Ray 03/25/24 10:40 XR chest 1V portable HISTORY: weakness COMPARISON: Chest 03/15/2024. FINDINGS: No pneumothorax. No pleural effusions. There are low lung volumes. No new focal lung consolidations to suggest a pneumonia. Is mild central pulmonary vascular congestion without overt edema. This has slightly improved. There is left-sided dual-chamber pacemaker. No acute fractures. IMPRESSION: Cardiomegaly with mild central pulmonary vascular congestion. This has slightly improved. ACT 112: Negative or not required by law. Electronically signed by: Ang Hurley M.D. 03/25/2024 11:20 AM Medications Administered Discontinued Medications Dexamethasone Sodium Phosphate (DexamethasonePf 10 Mg/Ml Vial) 10 mg IV NOW ONE Stop: 03/25/24 10:45 Last Admin: 03/25/24 11:10 Dose: 10 mg Documented By: ERNESTO Supervising Physician Co-Signing Physician Notes Pt was seen and examined by myself, Shirin Bloom MD on the day of service. Care was coordinated with Laure Jeff PA-C. Pt is an 83yoM with PMHx significant for chronic diastolic heart failure, nonobstructive CAD , chronic LBBB, hypertension, hyperlipidemia, recurrent AF, SSS status post PPM, pulmonary embolism on Eliquis, NAHEED (currently CPAP noncompliant), CKD (baseline creatinine 1.7), chronic anemia (baseline hemoglobin 12-13), multiple myeloma status post Rx, hypothyroidism, prediabetes, immunoglobulin deficiency, GERD, RLS, mood disorder, history recurrent C. difficile who presents for noted hypoxia at home by home health nursing. Patient was discharged about 9 days ago after hospitalization for CHF Acute hypoxic respiratory failure COVID Infection Patient presenting with oxygen saturation in the 80s, likely in setting of COVID infection. Does not appear to be in acute CHF exacerbation States he recently tested positive for COVID at home, was prescribed Molnupiravir for 5 days by his PCP which he completed. BioFire positive for COVID Chest x-ray with improved pulmonary vascular changes CT chest with no noted pneumonia Procalcitonin negative, CRP elevated at 2 VBG noting normal pH, however pCO2 mildly elevated at 59. Patient with known sleep apnea, not always compliant with CPAP Oxygen supplementation as needed, wean as tolerated Given patient recently completed course of molnupiravir we will hold off on remdesivir. Patient declining remdesivir as well. Continue Decadron CPAP nightly Continue to monitor Acute on chronic kidney disease Patient with ckd, baseline creatinine approximately 1.7 Creatinine on presentation 1.9 Given history of CHF and mild elevation we will hold off on fluids at this time Avoid nephrotoxic medications as able Continue to monitor CHF Patient does not appear to be in acute exacerbation Continue home torsemide Daily weights, I's and O's Continue to monitor volume status Otherwise as above. I spent a total [id number] coordinating, documenting, and providing care for this patient excluding time spent in the performance of separately billed services (4) CKD (chronic kidney disease), stage III Chronic kidney disease stage 3 subtype: stage 3b (GFR 30-44) Qualified Code(s): N18.32 - Chronic kidney disease, stage 3b (6) Hypertension Hypertension type: unspecified Qualified Code(s): I10 - Essential (primary) hypertension
[2024-03-25 12:49] LABS: Base Excess VBG 10.4 mEq/L; HCO3 VBG 37 mmol/L; Oxygen Saturation VBG 92.3 %; PCO2 VBG 59 mmHg (38-50); PO2 VBG 64 mmHg; pH VBG 7.41 (7.36-7.41)
[2024-03-25 13:45] LABS: Adenovirus PCR Not Detected (NotDetected); Bordetella parapertussis PCR Not Detected (NotDetected); Bordetella pertussis PCR Not Detected (NotDetected); Chlamydia pneumoniae PCR Not Detected (NotDetected); Coronavirus 229E PCR Not Detected (NotDetected); Coronavirus CoV-2 (COVID19)PCR DETECTED (NotDetected); Coronavirus HKU1 PCR Not Detected (NotDetected); Coronavirus NL63 PCR Not Detected (NotDetected); Coronavirus OC43PCR Not Detected (NotDetected); Human Metapneumovirus PCR Not Detected (NotDetected); Influenza A PCR Not Detected (NotDetected); Influenza B PCR Not Detected (NotDetected); Mycoplasma pneumoniae PCR Not Detected (NotDetected); Parainfluenza Virus 1 PCR Not Detected (NotDetected); Parainfluenza Virus 2 PCR Not Detected (NotDetected); Parainfluenza Virus 3 PCR Not Detected (NotDetected); Parainfluenza Virus 4 PCR Not Detected (NotDetected); Respiratory Syncytial VirusPCR Not Detected (NotDetected); Rhinovirus/Enterovirus PCR Not Detected (NotDetected)
--- NOTE | 2024-03-25 13:45 | CT Scan Report ---
CT chest diagnostic wo con CT DOSE: 984.07 mGy.cm HISTORY: covid, hypoxia TECHNIQUE: Multiaxial CT images of the chest were performed without contrast. A dose lowering techni que was utilized adhering to the principles of ALARA. COMPARISON: Chest CTA 05/14/2022. FINDINGS: Small amount of mucoid material within the trachea. No pneumothorax. No pleural effusions. Stable 4 mm nodule within the left upper lobe on image 46. Stable 2 mm nodule within the left upper l obe on image 51. These are considered to be benign given the long-term stability. No new or suspiciou s pulmonary nodules. There is a punctate calcified granuloma within the left lower lobe. Scattered ar eas of interstitial thickening and a few patchy groundglass densities are similar to the prior study. This is most pronounced within the periphery and suggest chronic change/scarring. This could be due to a post viral pneumonitis. No new focal lung consolidations to suggest a pneumonia. No evidence for pulmonary edema. No acute fractures. There is a left-sided pacemaker. Limited views of the upper abd omen demonstrate a normal liver, spleen, and adrenal glands. Prior cholecystectomy. Normal thyroid gl and. Normal esophagus. The heart remains mildly enlarged. Minimal pericardial fluid, unchanged. Moder ate to severe coronary artery calcifications again noted. No hilar lymphadenopathy. A few calcified p rominent mediastinal lymph nodes remain stable. No progressive lymphadenopathy within the chest. Mild calcified plaque within the normal caliber thoracic aorta. IMPRESSION: 1. A few scattered areas of interstitial thickening with patchy groundglass densities most pronounced within the periphery. This is similar to the prior study and suggests chronic change/scarring. This could be due to post bilateral pneumonitis. 2. No new focal lung consolidations to suggest a pneumonia. 3. Stable mild cardiomegaly. 4. Additional findings as described above. ACT 112: Negative or not required by law. Electronically signed by: Ang Hurley M.D. 03/25/2024 1:44 PM
--- NOTE | 2024-03-25 14:46 | Electrocardiogram Report ---
Test Reason : Blood Pressure : */* mmHG Vent. Rate : 76 BPM Atrial Rate : 76 BPM P-R Int : * ms QRS Dur : 160 ms QT Int : 426 ms P-R-T Axes : * -8 266 degrees QTcB Int : 479 ms Ventricular-paced rhythm Underlying rhythm probably atrial fibrillation Abnormal ECG When compared with ECG of 11-Mar-2024 16:59, No significant change was found Confirmed by Akash Freire ([id number]) on 03/25/2024 2:46:38 PM Referred By: REFERRED SELF Confirmed By: Akash Freire
[2024-03-25] MEDS ORDERED: ACETAMINOPHEN 325 MG TAB PO PRN (15:55)
[2024-03-25] MEDS ORDERED: LORazepam 0.5 MG TAB PO PRN (15:55)
[2024-03-25] MEDS ORDERED: ALBUTEROL HFA 8 GM INHALER INH PRN (15:55)
[2024-03-25] MEDS: TORSEMIDE 20 MG TAB PO SCH (17:05)
--- OUTSIDE RECORDS SUMMARY | 2024-03-25 17:40 | External Medical Summary | Summary of Care ---
Author Name Unknown Organization [facility] Address [address] [facility] [place] [address] Phone [phone] Care Team Providers Care Kennel Staff Member Name Role Phone Telma Jacobs Primary Care Provider Reason for Visit * Reason Onset Date Comments Advice 03/19/2024 Hosp. D/C on 03/15 (CHF) ~ Pt tested POS COVID today Encounter Details Date Type Department Care Team (Late st Contact Info) Description 03/19/2024 Telephone Family Practice [facility] [address] [place] [phone] Telma Jacobs CRNP [address] [place] [phone] Advice (Hosp. D/C on 03/15/24 (CHF) ~ Pt hammad... Allergies Active Allergy Reactions Criticality Noted Date Comments Covid-19 (Mrna) Vaccine 01/29/2024 Other Reaction(s): probable reaction: throat swelling documented as of this encounter (statuses as of 03/20/2024) Medications Medication Sig Dispensed Refills Start Date End Date Status acyclovir (ZOVIRAX) 400 MG Tablet Take 1 Tablet by mouth in the morning and 1 Tablet before bedtime. Active Meclizine HCl 12.5 MG Oral Tablet (ANTIVERT)Indication s:Dizziness Take 1 Tab by mouth 3 times a day as needed for Dizziness. 30 Tab 04/12/2020 Active Apixaban 2.5 MG Oral Tablet (Eliquis) Take 1 Tablet by mouth 2 times a day. 180 Tablet 3 07/27/2021 Active home oxygen/equipment IN GAS CPAP 07/13/2021 Active Albuterol Sulfate HFA 108 (90 Base) MCG/ACT Inhalation Aerosol Solution INHALE 2 PUFFS BY MOUTH EVERY 4 HOURS NEEDED FOR COUGH FOR SHORTNESS OF BREATH OR WHEEZE 18 g 1 03/20/2023 Active Allopurinol 300 MG Oral Tablet (Zyloprim) [...] the morning. 90 Tablet 3 05/08/2023 Active Additional Information Patient taking differently: 60 mgOral Daily(AM), Reported on 03/16/2024 Terazosin HCl 5 MG Oral Capsule (Hytrin) TAKE 1 CAPSULE BY MOUTH EVERYDAY AT BEDTIME 90 Capsule 3 08/20/2023 Active B-12 1000 MCG Oral Capsule TAKE 1 TABLET ORALLY EVERY 48 HOURS. 30 Capsule 5 08/26/2023 Active Magnesium Oxide -Mg Supplement 400 (240 Mg) MG Oral Tablet (Mag-Ox) Take 1 Tablet by mouth in the morning and 1 Tablet before bedtime. 180 Tablet 3 10/08/2023 Active Potassium Chloride ER 20 MEQ Oral Tablet Extended Release Take 30 MEQ by mouth daily. 10/09/2023 Active Atorvastatin Calcium 10 MG Oral Tablet [...] (toPROL XL)Indications:PAF (paroxysmal atrial fibrillation) ([facility]) Take 1 Tablet by mouth 2 times a day. 60 Tablet 5 11/19/2023 Active Eplerenone 25 MG Oral Tablet (Inspra)Indications: Chronic diastolic CHF (congestive heart failure), NYHA class 3 ([facility]) Take 0.5 Tablets by mouth in the morning. 45 Tablet 3 12/05/2023 Active DULoxetine HCl 60 MG Oral Capsule Delayed Release Particles (Cymbalta) Take 1 Capsule by mouth in the morning. Do not cut, crush or chew. 30 Capsule 3 01/02/2024 Active Triamcinolone Acetonide 0.5 % External Cream (Aristocort) Apply topically to affected area 2 times a day. To affected area. 60 g 1 01/27/2024 Active hydrALAZINE HCl 25 MG Oral Tablet (Apresoline)Indicati ons:HTN, goal below 140/90 TAKE 1 TABLET BY MOUTH IN THE MORNING AND 1 TABLET AT AT NOON AND 1 TABLET AT BEDTIME 270 Tablet 3 02/05/2024 Active Diphenoxylate-Atropi ne 2.5-0.025 MG Oral Tablet (Lomotil) TAKE 1 TABLET BY MOUTH 4 TIMES A DAY NEEDED FOR DIARRHEA 120 Tablet 1 02/26/2024 Active Potassium Chloride Deedee ER 20 MEQ Oral Tablet Extended Release Take 1 Tablet by mouth in the morning. 90 Tablet 3 03/17/2024 Active traZODone HCl 50 MG Oral Tablet (Desyrel) Take 2 Tablets by mouth at bedtime. 1 tablet 60 minutes before bedtime 180 Tablet 1 03/17/2024 Active Molnupiravir 200 MG Oral Capsule Take 4 Capsules by mouth in the morning and 4 Capsules before bedtime. 40 Capsule 03/19/2024 Active Hospital, Clinic, or Other Facility Administered Medication Ordered Dose Route Frequency Start Date End Date Status albuterol sulfate (PROVENTIL) (2.5 MG/3ML) 0.083% inhalation solution 2.5 mgIndications:SOB (shortness of breath) 2.5 mg NEBULIZER Q4H PRN 10/27/2017 Act leonela documented as of this encounter (statuses as of 03/20/2024) Active Problems Problem Noted Date Diagnosed Date Acute respiratory failure 03/16/2024 Hypocalcemia 01/27/2024 Prediabetes 01/02/2024 Bladder stones 12/10/2023 Adjustment disorder with mix ed disturbance of emotions and conduct 10/08/2023 Chronic pulmonary embolism 01/15/2023 Hospital discharge follow-up 12/05/2022 Persistent atrial fibrillation 12/05/2022 Hypomagnesemia 12/05/2022 Pulmonary embolus 07/04/2022 Scarring of lung 07/04/2022 Vitamin D deficiency 05/07/2022 B12 deficiency 05/07/2022 Tachy-deborah syndrome 05/27/2021 LBBB (left bundle branch block) 05/27/2021 Coronary artery disease invo lving [place] coronary artery of [place] heart without angina pectoris 05/27/2021 Chronic heart failure with preserved ejection fr action 05/27/2021 Major depressive disorder, recurrent episode, mo derate 01/03/2021 History of 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 (PE) 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 0 10/22/2020 History of Clostridium difficile infection 10/22 Stage 3b chronic kidney disease 10/22/2020 Body mass index (BMI) of 40.0 to 44.9 in adult 1 Overview: Per Obesity protocol Hypoalbuminemia 04/12/2020 Acute heart failure with normal ejection fractio n 04/12/2020 Multiple myeloma not having achieved remission [...] stive heart failure), NYHA class 3 03/04/2018 Gout 12/10/2016 Dyslipidemia, goal LDL below 70 11/20/2015 Elevated prostate specific antigen (PSA) 015 HTN, goal below 140/90 09/13/2014 NAHEED (obstructive sleep apnea) 12/09/2013 Overview: on bipap ASCVD (arteriosclerotic cardiovascular disease) 10/22/2012 Restless legs syndrome 04/10/2010 BPH with obstruction/lower urinary tract symptom s 11/06/2009 Hypothyroidism (acquired) documented as of this encounter (statuses as of 03/20/2024) Resolved Problems Problem Noted Date Diagnosed Date Resolved Date Rash and nonspecific skin eruption 01/27/2024 02/20/2024 Urinary retention 01/02/2024 02/20/2024 Dysuria 12/26/2023 02/20/2024 Sore throat 12/26/2023 02/20/2024 Thrush 12/26/2023 02/20/[address] 12/19/202302/04 Abdominal pain, generalized 12/10/2023 02/20/2024 Nausea without vomiting 12/10/202302/04 Left foot pain 10/22/2023 02/20/2024 Memory changes 10/08/2023 02/20/2024 Abrasion 10/08/2023 02/20/2024 Nostril infection 02/12/2022 02/20/2024 Tachy-deborah syndrome 06/25/2021 022 PAF (paroxysmal atrial fibrillation) 05/27/2021 02/20/2024 Poison annabelle dermatitis 02/03/20212023 Major depressive disorder, r ecurrent episode, moderate 11/06/2020 11/06/2020 Class 2 severe obesity due t o excess calories with serious comorbidity and body mass index (BMI) of 38.0 to 38.9 in adult 11/06/2020 4 Angio-edema 10/25/2020 02/20/2024 Class 2 severe obesity due t o excess calories with serious comorbidity and body mass index (BMI) of 38.0 to 38.9 in adult 07/22/2019 0 Overview: Per Obesity protocol Hypertensive heart disease w ith diastolic heart failure and stage 3 chronic kidney disease 03/04/2018 11/10/2018 Gastroesophageal reflux disease 03/04/2018 02/20/2024 Hyperparathyroidism 07/17/2016 11/11/19 19 Kidney disease, chronic, [...] 11/01/2010 09/09/2011 VENOUS THROMBOSIS PROPHYLAXIS 10/10/2010 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 icoagulant therapy 10/10/2010 12/25/2010 Overview: ICD-10 update of inactive term Preoperative general physical examination 10/10/2010 02/20/2024 Joint effusion, knee 08/15/2010 017 Obstructive sleep apnea 12/19/2009 06/08/2016 MORBID OBESITY 12/19/2009 12/25/2010 MORBID OBESITY, BMI= 41.82 11/06/09 11/06/2009 12/06/2016 Loss of height 11/06/2009 12/25/2010 Screening for prostate cancer 11/06/2009 12/25/2010 Generalized osteoarthritis 11/06/2009 0 02/20/2024 Anticoagulation management encounter 07/27/2009 11/06/2009 Venous thrombosis [...] as of this encounter (statuses as of 03/20/2024) Immunizations Name Administration Dates Next Due COVID-19 mRNA, LNP-s, No Pre serve, 2-Dose Series (M[place]oa) 09/04/2020 H1N1 2009 Influenza, IM 08/11/2009 Pneumococcal Conjugate Vacc, 13 Valent (Prevnar) 11/20/2015 Pneumococcal Polysaccharide PPV23 (Pneumovax) 11/04/2012,01/16/2006 RSV Vac., Bivalent, Perfusio n F, Pf,0.5 Ml (Abrysvo) 08/13/2023 Seasonal Influenza Virus Vac cine, Unspecified Formulation 04/27/2021,03/27/2020,03/17/2019,03/2018,05/22/2017,04/03/2016,04/28/20 15,04/14/2014,03/24/2013,03/11/2012,1 ,05/11/2010,05/01/2009,05/11,04/17/2006,05/03/2003 Seasonal Influenza, High Dos e, Trivalent, PF, IM (Fluzone HD) 03/16/2024 Seasonal Influenza, PF, 6 M & above, IM , (FluLaval or Fluzone) 03/27/2020,03/17/2019,05/15/2018,05/0705/22/2018 Seasonal Influenza, Quadriva lent Hd (Fluzone Hd) 03/15/2022,04/27/2021 Seasonal Influenza, Quadriva lent Hd, 65+ Yrs 04/01/2023 Seasonal Influenza, Quadriva lent, No Preserve, IM 04/03/2016,04/28/2015 Seasonal Influenza, Trivalen t, (IIV3), with Preserv, (Fluzone) 04/14/2014,03/24/2013,03/11/2012,04/08,05/11/2010,05/01/2009,05/11/20 07,04/17/2006 TD, Preservative Free 06/23/2007 TDAP [...] encounter Miscellaneous Notes * Telephone Encounter - Marina Phipps LPN - 03/20/2024 3:09 PM EDT Called and spoke with pt's daughter. They had already picked up the medication and started it. Daughter voiced understanding. * Telephone Encounter - Telma Jacobs CRNP - 03/19/2024 9:49 AM EDT Had to sent mulnupiravir due to kidney function and on blood thinner. This is emergency use only approved by FDA. OF note- does not make them better just prevents severe covid. Hold statin while taking this drug Isael, MSN, [facility] * Telephone Encounter - Dianne Downey OSA - 03/19/2024 9:02 AM EDT Brandon's daughter (Kate) called stating patient has tested POS for COVID today. Patient patientwas hospital D/C for CHF on 03/15/24. Requesting treatment plan and return call. Kate can be contacted at [phone] documented in this encounter Plan of Treatment Upcoming Encounters Date Type Department Care Team (Late st Contact Info) Description 03/24/2024 10:00 AM EDT Office Visit [facility] Disorders [facility] [address] [place] [phone] Yaneth Eduardo, [address] [place] [phone] 04/06/2024 2:20 PM EDT Office Visit Family [facility] [address] [place] [phone] Telma Jacobs CRNP [address] [place] [phone] 04/20/2024 10:00 AM EDT Office Visit Family Practice [facility] [address] [place] [phone] Telma Jacobs CRNP [address] [place] [phone] 04/27/2024 10:30 AM EDT Office Visit Cardiology, [facility] [address] [place] [phone] Anna Rojas CRNP [address] [place] [phone] 06/08/2024 2:00 PM EST Office Visit [facility] [address] [place] [address] Telma Jacobs CRNP [address] [place] [phone] 07/28/2024 3:00 PM EST Office Visit [facility] [address] [place] [address] Telma Jacobs CRNP [address] [place] [phone] Health Maintenance Due Date Last Done Comments HbA1c 01/23/2010 01/23/2009, 02/04, 11/23/1997, Additional history exists Zoster Vaccines (1 of 2) 09/18/2013 07/24/2013, 03/09 Adult Wellness Visit 02/23/2020 02/22/2019 COVID-19 Vaccine (2 - Pfizer risk series) 09/25/2020 09/04/2020 Albumin/Creatinine Ratio 01/11/2022 021, 01/28/2011, 11/20/2009, Additional history exists Depression Monitoring 05/14/2022 05/14/2021 CKD PHOS USE SMARTSET 88662 05/02/202304/07, 12/20/2020, 10/29/2020, Additional history exists GFR 09/13/2024 03/16/2024, 01/05, 12/11/2023, Additional history exists TSH 11/18/2024 11/19/2023, 07/07, 04/15/2023, Additional history exists CKD HGB USE SMARTSET 51233 01/25/202501/25, 01/26/2024, 12/11/2023, Additional history exists DTap/Tdap Vaccines (2 - Td or Tdap) 10/07/2033 10/08/2023, 06/23/2007 Pneumococcal Vaccine: 65+ Years Completed 11/20/2015, 11/04/2012, 01/16/2006 Influenza Vaccine (FLU shot) Completed 04/2024, 04/01/2023, 03/15/2022, Additional history exists HPV (Gardasil) Vaccine Aged Out No lo nger eligible based on patient's age to complete this topic Hepatitis B Vaccine Aged Out No longe r eligible based on patient's age to complete this topic MENINGOCOCCAL (MENACTRA/MENVEO) Aged Out No longer eligible based on patient's age to complete this topic documented as of this encounter Medical Devices Implanted Type Area Relay Checker Device Identifier Shelf Expiration Date Model / Serial / Lot Cement Antibiotic Bone - [id number] Implanted:Qty: 5 on 10/10/2010 at OR [facility] Right: Knee [employer] : [employer] 03/06/2012 6197-9-01 0 / / [id number] Surface Articular - [id number] Implanted:Qty: 1 on 10/10/2010 at OR [facility] Right: Knee [employer] 10/04/2018 00-5994-0 32-14 / / [id number] Augment Blk Dist Fem F 10mm - [id number] Implanted:Qty: 2 on 10/10/2010 at OR [facility] Right: Knee [employer] 09/03/2015 00-5490-0 36-20 / / [id number] Augment Blk Post Fem F 10mm - [id number] Implanted:Qty: 1 on 10/10/2010 at OR [facility] Right: Knee [employer] 06/05/2015-5490-0 36-02 / / [id number] Patella Poly Nexgen - [id number] Implanted:Qty: 1 on 10/10/2010 at OR [facility] Right: Knee [employer] 07/06/2018 00-5972-0 65-32 / / [id number] Cement Antibiotic Bone - [id number] Implanted:Qty: 1 on 10/10/2010 at OR [facility] [employer] : OR[employer] 6197-9-01 0 / / Plug 20/24mm Insert - [id number] Implanted:Qty: 1 on 10/10/2010 at OR [facility] Right: Knee [employer] 00-8011-0 20 [id number] Stem Extension 5988-04-18 - [id number] Implanted:Qty: 1 on 10/10/2010 at OR [facility] Right: Knee [employer] 09/03/2020 00-5988-0 10 / [id number] Femur Porous Lcck - [id number] Implanted:Qty: 1 on 10/10/2010 at OR [facility] Right: Knee [employer] 12/04/2019 00-5994-0 16- / [id number] Augment Blk Trab Knee Tib 10mm - [id number] Implanted:Qty: 1 on 10/10/2010 at OR [facility] Right: Knee [employer] 05/06/2015 00-5448-0 03 [id number] Augment Blk Dist Fem F 10mm - [id number] Implanted:Qty: 1 on 10/10/2010 at OR [facility] Right: Knee [employer] 09/03/2015-5490-0 36 / [id number] Augment Blk Post Fem F 5mm - [id number] Implanted:Qty: 1 on 10/10/2010 at OR [facility] Right: Knee [employer] 09/03/2015 00-5490-0 36 / [id number] Plate Tibial Nexgen - [id number] Implanted:Qty: 1 on 10/10/2010 at OR [facility] Right: Knee [employer] 09/03/2020 00-5980-0 37 [id number] Stem Extension 5988-04-18 - [id number] Implanted:Qty: 1 on 10/10/2010 at OR [facility] Right: Knee [employer] 06/05/2020 00-5988-0 10- / [id number] Lead Pace Selectsecure 3830-69 - [id number] - [id number] Implanted:Qty: 1 on 06/25/2021 by Gilma John DO at OR [facility] Left: Heart [employer] : ARAVIND 05/16/2023 [id number] / [id number] / Description: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 - [id number] - [id number] Implanted:Qty: 1 on 06/25/2021 by Gilma John, at OR [facility] Left: Heart [employer] : CRM 04/12/2023 5076-52 / [id number] / Description:Right Atrial Jayleen d Pacemaker Sylvia Xt Dr Smith Wrls - [id number] - [id number] Implanted:Qty: 1 on 06/25/2021 by Gilma John DO at OR [facility] Left: Chest [employer] 12/01/2022 [id number] / [id number] / Envelope Antibacterial Tyrx - [id number] Implanted:Qty: 1 on 06/25/2021 by Gilma John DO at OR [facility] Left: Chest [employer] : [facility] [id number] 02/16/2022 [id number] / / [id number] documented as of this encounter Advance Directives * Full Code (Latest Code Status on File) Date Activated Date Inactivated Comments 10/10/2010 10:23 AM 10/12/2010 3:38 PM This order re flects the patients wishes and were consensually agreed upon. Care Teams Kennel Staff Member Relationship Specialty Start Date End Date Telma Jacobs CRNP [address] [place] [id number] PCP - General Nurse Practitioner 02/12/22 documented as of this encounter
--- OUTSIDE RECORDS SUMMARY | 2024-03-25 17:40 | External Medical Summary | Summary of Care ---
Author Name Unknown Organization [facility] Address [address] [facility] [place] [address] Phone [phone] Care Team Providers Care Chemistry Associate Name Role Phone Telma Jacobs Primary Care Provider Reason for Visit * Reason Onset Date Comments Med Request 12/17/2023 Encounter Details Date Type Department Care Team (Late st Contact Info) Description 12/17/2023 Telephone Family Practice [facility] [address] [place] [address] Telma Jacobs CRNP [address] [place] [address] Med Request Allergies Active Allergy Reactions Criticality Noted Date Comments Covid-19 (Mrna) Vaccine 01/29/2024 Other Reaction(s): probable reaction: throat swelling documented as of this encounter (statuses as of 03/17/2024) Medications Medication Sig Dispensed Refills Start Date End Date Status acyclovir (ZOVIRAX) 400 MG Tablet Take 1 Tablet by mouth in the morning and 1 Tablet before bedtime. Active Meclizine HCl 12.5 MG Oral Tablet (ANTIVERT)Indicati ons:Dizziness Take 1 Tab by mouth 3 times a day as needed for Dizziness. 30 Tab 0 Active Apixaban 2.5 MG Oral Tablet (Eliquis) Take 1 Tablet by mouth 2 times a day. 180 Tablet 3 2 Active home oxygen/equipment IN GAS CPAP 2 Active Albuterol Sulfate HFA 108 (90 Base) MCG/ACT Inhalation Aerosol Solution INHALE 2 PUFFS BY MOUTH EVERY 4 HOURS NEEDED FOR COUGH FOR SHORTNESS OF BREATH OR WHEEZE 18 g 1 3 Active Allopurinol 300 MG Oral Tablet [...] the morning. 90 Tablet 3 3 Active Additional Information Patient taking differently: 60 mgOral Daily(AM), Reported on 03/16/2024 Terazosin HCl 5 MG Oral Capsule (Hytrin) TAKE 1 CAPSULE BY MOUTH EVERYDAY AT BEDTIME 90 Capsule 3 4 Active B-12 1000 MCG Oral Capsule TAKE 1 TABLET ORALLY EVERY 48 HOURS. 30 Capsule 5 4 Active Magnesium Oxide -Mg Supplement 400 (240 Mg) MG Oral Tablet (Mag-Ox) Take 1 Tablet by mouth in the morning and 1 Tablet before bedtime. 180 Tablet 3 4 Active Potassium Chloride ER 20 MEQ Oral Tablet Extended Release Take 30 MEQ by mouth daily. 4 Active Atorvastatin Calcium 10 MG Oral [...] 24 Hour (toPROL XL)Indications:PAF (paroxysmal atrial fibrillation) (HCC) Take 1 Tablet by mouth 2 times a day. 60 Tablet 5 4 Active Eplerenone 25 MG Oral Tablet (Inspra)Indication s:Chronic diastolic CHF (congestive heart failure), NYHA class 3 (HCC) Take 0.5 Tablets by mouth in the morning. 45 Tablet 3 4 Active hydrOXYzine Pamoate 25 MG Oral Capsule (Vistaril) Take 1 Cap by mouth 3 times a day as needed for Itching. 30 Cap 1 024 Discontinued(Re fill) Hydrocortisone 2.5 % External Cream Apply topically to affected area 2 times a day. To affected area. 30 g 1 024 Discontinued Calcium Carbonate 1500 (600 Ca) MG Oral Tablet Take 2 Tablets by mouth in the morning and 2 Tablets before bedtime. 3 024 Discontinued hydrALAZINE HCl 25 MG Oral Tablet (Apresoline)Indica tions:HTN, goal below 140/90 TAKE 1 TABLET BY MOUTH IN THE MORNING AND 1 TABLET AT AT NOON AND 1 TABLET AT BEDTIME 270 Tablet 3 3 024 Discontinued Diphenoxylate-Atro pine 2.5-0.025 MG Oral Tablet (Lomotil) Take 1 Tablet by mouth 4 times a day as needed for Diarrhea. 120 Tablet 1 4 024 Discontinued DULoxetine HCl 30 MG Oral Capsule Delayed Release Particles (Cymbalta) Take 1 Capsule by mouth in the morning. Do not cut, crush or chew. 30 Capsule 3 4 024 Discontinued(Re fill) D3 Super Strength 50 MCG (2000 UT) Oral Capsule (Cholecalciferol)I ndications:Hypocal cemia TAKE 1 CAPSULE BY MOUTH EVERY DAY IN THE MORNING 90 Capsule 1 4 024 Discontinued Ondansetron HCl 8 MG Oral Tablet (Zofran) Take 1 Tablet by mouth every 8 hours as needed for Nausea. 120 Tablet 4 024 Discontinued Sucralfate 1 GM Oral Tablet (Carafate) Take 1 Tablet by mouth in the morning and 1 Tablet before bedtime. 120 Tablet 1 4 024 Discontinued Ciprofloxacin HCl 500 MG Oral Tablet (Cipro) Take 1 Tablet by mouth in the morning and 1 Tablet before bedtime. 4 024 oxyBUTYnin Chloride 5 MG Oral Tablet (Ditropan) Take 1 Tablet by mouth 2 times a day as needed. 4 024 Discontinued oxyCODONE HCl 5 MG Oral Tablet (Oxy IR) Take 1 Tablet by mouth every 6 hours as needed for Pain, Severe. 4 024 Discontinued hydrOXYzine Pamoate 25 MG Oral Capsule (Vistaril) Take 1 Capsule by mouth 3 times a day as needed for Anxiety. 30 Capsule 4 024 Discontinued Hospital, Clinic, or Other Facility Administered Medication Ordered Dose Route Frequency Start Date End Date Status albuterol sulfate (PROVENTIL) (2.5 MG/3ML) 0.083% inhalation solution 2.5 mgIndications:SOB (shortness of breath) 2.5 mg NEBULIZER Q4H PRN 10/27/2017 Act leonela Albuterol Sulfate (Proventil) (2.5 MG/3ML) 0.083% inhalation solution 2.5 mgIndications:FARAH (dyspnea on exertion) 2.5 mg NEBULIZER ONCE PRN 01/15/2023 01/15/2024 End ed documented as of this encounter (statuses as of 03/17/2024) Active Problems Problem Noted Date Diagnosed Date [...] block) 05/27/2021 Coronary artery disease invo lving [place] coronary artery of [place] heart without angina pectoris 05/27/2021 Chronic heart failure with preserved ejection fr action 05/27/2021 Major depressive disorder, recurrent episode, mo derate 01/03/2021 History of 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 (PE) 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 0 [...] as of this encounter (statuses as of 03/17/2024) Resolved Problems Problem Noted Date Diagnosed Date Resolved Date Rash and nonspecific skin eruption 01/27/2024 02/20/2024 Urinary retention 01/02/2024 02/20/2024 Dysuria 12/26/2023 02/20/2024 Sore throat 12/26/2023 02/20/2024 Thrush 12/26/2023 02/20/[address] 12/19/202302/04 Abdominal pain, generalized [...] to 38.9 in adult 11/06/2020 Angio-edema 10/25/2020 02/20/2024 Class 2 severe obesity [...] pneumonia 09/23/2012 CARPAL TUNNEL SYNDROME S/P CTR 9/11 05/06/2011 12/06/2016 Pain in limb 01/28/2011 12/06/2016 RIGHT KNEE JOINT REPLACEMENT STATUS 12/25/2010 12/06/2016 Heart failure, diastolic, due to HTN 12/25/2010 07/21/2019 Overview: duplicate Persistent insomnia 12/25/2010 11/11/19 19 Venous thrombosis 11/01/2010 09/09/2011 VENOUS THROMBOSIS PROPHYLAXIS 10/10/2010 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 Isael, MSN, [facility] * Telephone Encounter - Cecile Easton RN - 12/17/2023 2:38 PM EDT Telma Esmeamosdarion was dc'd from [facility] yesterday afternoon with a Fowler. He is having problems with the fowler (Kate is going to call Urology) that is causing him quite a bit of anxiety. She is wondering if there is something you can prescribe for him to take until he gets it removed on the . documented in this encounter Plan of Treatment Upcoming Encounters Date Type Department Care Team (Late st Contact Info) Description 03/24/2024 10:00 AM EDT Office Visit Sleep Disorders Ctr [facility] [address] [place] [address] Yaneth Eduardo, [address] [facility] [place] [id number] 04/06/2024 2:20 PM EDT Office Visit Family [facility] [address] [place] [address] Telma Jacobs CRNP [address] [place] [address] 04/20/2024 10:00 AM EDT Office Visit [facility] [address] [facility] [place] [address] Telma Jacobs CRNP [address] [place] [address] 04/27/2024 10:30 AM EDT Office Visit Cardiology, [facility] [address] [place] [address] Anna Rojas CRNP [address] [place] [address] 06/08/2024 2:00 PM EST Office Visit [facility] [address] [place] [address] Telma Jacobs CRNP [address] [place], [place] [address] 07/28/2024 3:00 PM EST Office Visit [facility] [address] [facility] [place] [address] Telma Jacobs CRNP [address] [place] [address] Health Maintenance Due Date Last Done Comments HbA1c 01/23/2010 01/23/2009, 02/04, 11/23/1997, Additional history exists Zoster Vaccines (1 of 2) 09/18/2013 07/24/2013, 03/09 Adult Wellness Visit 02/23/2020 02/22/2019 COVID-19 Vaccine (2 - Pfizer risk series) 09/25/2020 09/04/2020 Albumin/Creatinine Ratio 01/11/2022 021, 01/28/2011, 11/20/2009, Additional history exists Depression Monitoring 05/14/2022 05/14/2021 CKD PHOS USE SMARTSET 54179 05/02/202304/07, 12/20/2020, 10/29/2020, Additional history exists GFR 09/13/2024 03/16/2024, 01/05, 12/11/2023, Additional history exists TSH 11/18/2024 11/19/2023, 07/07, 04/15/2023, Additional history exists CKD HGB USE SMARTSET 35568 01/25/202501/25, 01/26/2024, 12/11/2023, Additional history exists DTap/Tdap [...] this encounter Medical Devices Implanted Type Area Assistant Office Manager Device Identifier Shelf Expiration Date Model / Serial / Lot Cement Antibiotic Bone - [id number] Implanted:Qty: 5 on 10/10/2010 at [place] [facility] Right: Knee [employer] : OR[employer] 03/06/2012 6197-9-01 0 / / [id number] Surface Articular - [id number] Implanted:Qty: 1 on 10/10/2010 at [place] [facility] Right: Knee [employer] 10/04/2018-5994-0 32-14 / [id number] Augment Blk Dist Fem F 10mm - [id number] Implanted:Qty: 2 on 10/10/2010 at [place] [facility] Right: Knee [employer] 09/03/2015-5490-0 36-20 / / [id number] Augment Blk Post Fem F 10mm - [id number] Implanted:Qty: 1 on 10/10/2010 at [place] [facility] Right: Knee [employer] 06/05/2015-5490-0 36- / [id number] Patella Poly Nexgen - [id number] Implanted:Qty: 1 on 10/10/2010 at OR [facility] Right: Knee [employer] 07/06/2018-5972-0 65-32 / / [id number] Cement Antibiotic Bone - [id number] Implanted:Qty: 1 on 10/10/2010 at [place] [facility] [employer] : ORTHOPAEDICS 6197-9-01 0 / / Plug 20/24mm Insert - [id number] Implanted:Qty: 1 on 10/10/2010 at [place] [facility] Right: Knee [employer] 00-8011-0 20- / / [id number] Stem Extension 5988-04-18 - [id number] Implanted:Qty: 1 on 10/10/2010 at [place] [facility] Right: Knee [employer] 09/03/2020-5988-0 10-13 / / [id number] Femur Porous Lcck - [id number] Implanted:Qty: 1 on 10/10/2010 at [place] [facility] Right: Knee [employer] 12/04/2019-5994-0 16-92 / / [id number] Augment Blk Trab Knee Tib 10mm - [id number] Implanted:Qty: 1 on 10/10/2010 at [place] [facility] Right: Knee [employer] 05/06/2015-5448-0 03- [id number] Augment Blk Dist Fem F 10mm - [id number] Implanted:Qty: 1 on 10/10/2010 at [place] [facility] Right: Knee [employer] 09/03/2015-5490-0 36-20 / / [id number] Augment Blk Post Fem F 5mm - [id number] Implanted:Qty: 1 on 10/10/2010 at [place] [facility] Right: Knee [employer] 09/03/2015 00-5490-0 36- / [id number] Plate Tibial Nexgen - [id number] Implanted:Qty: 1 on 10/10/2010 at [place] [facility] Right: Knee [employer] 09/03/2020-5980-0 - / [id number] Stem Extension 5988-04-18 - [id number] Implanted:Qty: 1 on 10/10/2010 at [place] [facility] Right: Knee [employer] 06/05/2020-5988-0 04-18 [id number] Lead Pace Selectsecure 3830-69 - [id number] - [id number] Implanted:Qty: 1 on 06/25/2021 by Gilma John DO at OR [facility] Left: Heart [employer] : [facility] 05/16/2023 [id number] / [id number] / Description: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 - [id number] - [id number] Implanted:Qty: 1 on 06/25/2021 by Gilma John DO at OR [facility] Left: Heart [employer] : [facility] 04/12/2023 5076-52 / [id number] / Description:Right Atrial Jayleen d Pacemaker Sylvia Xt [facility] - [id number] - [id number] Implanted:Qty: 1 on 06/25/2021 by Gilma John DO at OR [facility] Left: Chest [employer] 12/01/2022 [id number] / [id number] / Envelope Antibacterial Tyrx - [id number] Implanted:Qty: 1 on 06/25/2021 by Gilma John DO at OR [facility] Left: Chest [employer] : [facility] [id number] 02/16/2022 [id number] / / [id number] documented as of this encounter Advance Directives * Full Code (Latest Code Status on File) Date Activated Date Inactivated Comments 10/10/2010 10:23 AM 10/12/2010 3:38 PM This order re flects the patients wishes and were consensually agreed upon. Care Teams Chemistry Associate Relationship Specialty Start Date End Date Telma Jacobs CRNP [address] [place] [address] PCP - General Nurse Practitioner 02/12/22 documented as of this encounter
--- OUTSIDE RECORDS SUMMARY | 2024-03-25 17:40 | External Medical Summary | Summary of Care ---
Author Name Unknown Organization [facility] Address [address] [facility] [place] [address] Phone [phone] Care Team Providers Care Arc Cutter Name Role Phone Telma Jacobs Primary Care Provider Reason for Visit * Reason Onset Date Comments Advice 03/17/2024 Encounter Details Date Type Department Care Team (Late st Contact Info) Description 03/17/2024 Telephone Family Practice [facility] [address] [place] [address] Telma Jacobs CRNP [address] [place] [address] Advice Allergies Active Allergy Reactions Criticality Noted Date Comments Covid-19 (Mrna) Vaccine 01/29/2024 Other Reaction(s): probable reaction: throat swelling documented as of this encounter (statuses as of 03/18/2024) Medications Medication Sig Dispensed Refills Start Date [...] before bedtime 180 Tablet 1 03/17/2024 Active Hospital, Clinic, or Other Facility Administered Medication Ordered Dose Route Frequency Start Date End Date Status albuterol sulfate (PROVENTIL) (2.5 MG/3ML) 0.083% inhalation solution 2.5 mgIndications:SOB (shortness of breath) 2.5 mg NEBULIZER Q4H PRN 10/27/2017 Act leonela documented as of this encounter (statuses as of 03/18/2024) Active Problems Problem Noted Date Diagnosed Date [...] block) 05/27/2021 Coronary artery disease invo lving [place] coronary artery of [place] heart without angina pectoris 05/27/2021 Chronic heart failure with preserved ejection fr action 05/27/2021 Major depressive disorder, recurrent episode, mo derate 01/03/2021 History of 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 (PE) 10/22/2020 prison current use of anticoagulant therapy 0 10/22/2020 [...] as of this encounter (statuses as of 03/18/2024) Resolved Problems Problem Noted Date Diagnosed Date [...] 11/01/2010 09/09/2011 VENOUS THROMBOSIS PROPHYLAXIS 10/10/2010 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 Viviane returns call, faxing OV notes now. Thinks she already requested OT, PT and those orders will be coming to us. * Telephone Encounter - Margaret Villavicencio LPN - 03/18/2024 7:41 AM EDT Printed OV notes, need fax number. Called and left VM message for Viviane that we need fax number andneed to know what orders are needed. Asked that she call us back at nurse station number. [phone] * Telephone Encounter - Gabbi West OSA - 03/17/2024 2:29 PM EDT Reason for patient's call: Viviane from [facility] calling asking for the office to give her a call as she needs new orders placed for the patient and requesting the office notes from his 03/16 appointment. Caller was transferred to No answer at the nurse line. documented in this encounter Plan of Treatment Upcoming Encounters Date Type Department Care Team (Late st Contact Info) Description 03/24/2024 10:00 AM EDT Office Visit Sleep Disorders Ctr [facility] [address] [place] [phone] Yaneth Eduardo, [address] [place] [address] 04/06/2024 2:20 PM EDT Office Visit [facility] [address] [place] [address] Telma Jacobs CRNP [address] [place] [address] 04/20/2024 10:00 AM EDT Office Visit [facility] [address] [place] [address] Telma Jacobs CRNP [address] [place] [address] 04/27/2024 10:30 AM EDT Office Visit Cardiology, [facility] [address] [place] [address] Anna Rojas CRNP [address] [place] [address] 06/08/2024 2:00 PM EST Office Visit [facility] [address] [place] [address] Telma Jacobs CRNP [address] [place] [address] 07/28/2024 3:00 PM EST Office Visit Family Practice [facility] [address] [place] [address] Telma Jacobs CRNP [address] [place] [address] Health Maintenance Due Date Last Done Comments HbA1c 01/23/2010 01/23/2009, 02/04, 11/23/1997, Additional history exists Zoster Vaccines (1 of 2) 09/18/2013 07/24/2013, 03/09 Adult Wellness Visit 02/23/2020 02/22/2019 COVID-19 Vaccine (2 - Pfizer risk series) 09/25/2020 09/04/2020 Albumin/Creatinine Ratio 01/11/2022 021, 01/28/2011, 11/20/2009, Additional history exists Depression Monitoring 05/14/2022 05/14/2021 CKD PHOS USE SMARTSET 34510 05/02/202304/07, 12/20/2020, 10/29/2020, Additional history exists GFR 09/13/2024 03/16/2024, 01/05, 12/11/2023, Additional history exists TSH 11/18/2024 11/19/2023, 07/07, 04/15/2023, Additional history exists CKD HGB USE SMARTSET 09140 01/25/202501/25, 01/26/2024, 12/11/2023, Additional history exists DTap/Tdap [...] this encounter Medical Devices Implanted Type Area Cell Biology Scientist Device Identifier Shelf Expiration Date Model / Serial / Lot Cement Antibiotic Bone - [id number] Implanted:Qty: 5 on 10/10/2010 [place] [facility] [place] Knee [employer] : ORTHOPAEDICS 03/06/2012 6197-9-01 0 / / [id number] Surface Articular - [id number] Implanted:Qty: 1 on 10/10/2010 [place] [facility]: Knee [employer] 10/04/2018 00-5994-0 32-14 / / [id number] Augment Blk Dist Fem F 10mm - [id number] Implanted:Qty: 2 on 10/10/2010 [place] [facility] [place]: Knee [employer] 09/03/2015 00-5490-0 36-20 / / [id number] Augment Blk Post Fem F 10mm - [id number] Implanted:Qty: 1 on 10/10/2010 [place] [facility]: Knee [employer] 06/05/2015 00-5490-0 36-02 / / [id number] Patella Poly Nexgen - [id number] Implanted:Qty: 1 on 10/10/2010 [place] [facility]: Knee [employer] 07/06/2018 00-5972-0 65-32 / / [id number] Cement Antibiotic Bone - [id number] Implanted:Qty: 1 on 10/10/2010 [place] [facility] [employer] : ORTHOPAEDICS 6197-9-01 0 / / Plug 20/24mm Insert - [id number] Implanted:Qty: 1 on 10/10/2010 [place] [facility] Right: Knee [employer] 00-8011-0 20- / / [id number] Stem Extension 5988-04-18 - [id number] Implanted:Qty: 1 on 10/10/2010 [place] [facility] [place]: Knee [employer] 09/03/2020 00-5988-0 10-13 / / [id number] Femur Porous Lcck - [id number] Implanted:Qty: 1 on 10/10/2010 [place] [facility]: Knee [employer] 12/04/2019 00-5994-0 16- / / [id number] Augment Blk Trab Knee Tib 10mm - [id number] Implanted:Qty: 1 on 10/10/2010 [place] [facility] [place]: Knee [employer] 05/06/2015 00-5448-0 03- / [id number] Augment Blk Dist Fem F 10mm - [id number] Implanted:Qty: 1 on 10/10/2010 [place] [facility] Right: Knee [employer] 09/03/2015 00-5490-0 36-20 / / [id number] Augment Blk Post Fem F 5mm - [id number] Implanted:Qty: 1 on 10/10/2010 [place] [facility] Right: Knee [employer] 09/03/2015 00-5490-0 36- / / [id number] Plate Tibial Nexgen - [id number] Implanted:Qty: 1 on 10/10/2010 [place] [facility] Right: Knee [employer] 09/03/2020 00-5980-0 37- / [id number] Stem Extension 5988-04-18 - [id number] Implanted:Qty: 1 on 10/10/2010 [place] [facility] [place]: Knee [employer] 06/05/2020-5988-0 10- / / [id number] Lead Pace Selectsecure 3830-69 - [id number] - [id number] Implanted:Qty: 1 on 06/25/2021 by Gilma John DO at OR [facility] Left: Heart [employer] : [facility] 05/16/2023 [id number] / [id number] / Description: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 - [id number] - [id number] Implanted:Qty: 1 on 06/25/2021 by Gilma John DO at OR [facility] Left: Heart [employer] : [facility] 04/12/2023 5076-52 / [id number] / Description:Right Atrial Jayleen d Pacemaker Chacra Xt Dr Mri Wrls - [id number] - [id number] Implanted:Qty: 1 on 06/25/2021 by Gilma John DO at OR [facility] Left: Chest [employer] 12/01/2022 W1DR01 / [id number] / Envelope Antibacterial Tyrx - [id number] Implanted:Qty: 1 on 06/25/2021 by Gilma John, at OR [facility] Left: Chest [employer] : CRM [id number] 02/16/2022 [id number] / / [id number] documented as of this encounter Advance Directives * Full Code (Latest Code Status on File) Date Activated Date Inactivated Comments 10/10/2010 10:23 AM 10/12/2010 3:38 PM This order re flects the patients wishes and were consensually agreed upon. Care Teams Arc Cutter Relationship Specialty Start Date End Date Telma Jacobs CRNP [address] [place] [address] PCP - General Nurse Practitioner 02/12/22 documented as of this encounter
--- OUTSIDE RECORDS SUMMARY | 2024-03-25 17:41 | External Medical Summary | Summary of Care ---
Author Name Unknown Organization [facility] Address [address] [facility] [place] [address] Phone [phone] Care Team Providers Care Brazing Machine Tender Name Role Phone Telma Jacobs Primary Care Provider Reason for Visit * Reason Comments Outpatient Testing Encounter Details Date Type Department Care Team (Late st Contact Info) Description 03/16/2024 11:10 AM EDT Laboratory Laboratory, [facility] [address] [place] [id number] [facility] [address] [place] [address] Acute heart failure with normal ejection fraction (HCC); Hypomagnesemia; Hypocalcemia Allergies Active Allergy Reactions Criticality Noted Date Comments Covid-19 (Mrna) Vaccine 01/29/2024 Other Reaction(s): probable reaction: throat swelling documented as of this encounter (statuses as of 03/16/2024) Medications Medication Sig Dispensed Refills Start Date [...] AT BEDTIME 270 Tablet 3 02/05/2024 Active traZODone HCl 50 MG Oral Tablet (Desyrel) 1 tablet 60 minutes before bedtime 30 Tablet 02/18/2024 Active Diphenoxylate-Atropi ne 2.5-0.025 MG Oral Tablet (Lomotil) TAKE 1 TABLET BY MOUTH 4 TIMES A DAY NEEDED FOR DIARRHEA 120 Tablet 1 02/26/2024 Active Hospital, Clinic, or Other Facility Administered Medication Ordered Dose Route Frequency Start Date End Date Status albuterol sulfate (PROVENTIL) (2.5 MG/3ML) 0.083% inhalation solution 2.5 mgIndications:SOB (shortness of breath) 2.5 mg NEBULIZER Q4H PRN 10/27/2017 Act leonela documented as of this encounter (statuses as of 03/16/2024) Active Problems Problem Noted Date Diagnosed Date [...] block) 05/27/2021 Coronary artery disease invo lving curyung 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 05/27/2021 Chronic heart failure with preserved ejection fr action 05/27/2021 Major depressive disorder, recurrent episode, mo derate 01/03/2021 History of 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 (PE) 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 0 10/22/2020 [...] as of this encounter (statuses as of 03/16/2024) Resolved Problems Problem Noted Date Diagnosed Date [...] of 38.0 to 38.9 in adult 07/22/2019 Overview: Per Obesity protocol Hypertensive heart disease [...] 11/01/2010 09/09/2011 VENOUS THROMBOSIS PROPHYLAXIS 10/10/2010 10/25/2010 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 current 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 of ant icoagulant therapy 10/10/2010 [...] as of this encounter (statuses as of 03/16/2024) Immunizations Name Administration Dates Next Due COVID-19 [...] AM EDT Office Visit [facility] [address] [place] [phone] Yaneth Eduardo DO [address] [place] [address] 04/06/2024 2:20 PM EDT Office Visit Family Practice [facility] [address] [place] [address] Telma Jacobs CRNP [address] [place] [address] 04/20/2024 10:00 AM EDT Office Visit Family [facility] [address] [place] [address] Telma Jacobs CRNP [address] [place] [address] 04/27/2024 10:30 AM EDT Office Visit Cardiology, [facility] [address] [place] [address] Anna Rojas CRNP [address] [place] [address] 06/08/2024 2:00 PM EST Office Visit [facility] [address] [place] [address] Telma Jacobs CRNP [address] [place] [address] 07/28/2024 3:00 PM EST Office Visit [facility] [address] [place] [address] Telma Jacobs CRNP [address] [place] [address] Pending Results Name Type Priority Associated Diagnoses Date /Time BASIC METABOLIC PANEL Lab Routine Acute heart failure with normal ejection fraction (HCC) Hypomagnesemia Hypocalcemia 03/16/2024 11:01 AM EDT MAGNESIUM Lab Routine Acute heart failure with normal ejection fraction (HCC) Hypomagnesemia Hypocalcemia 03/16/2024 11:01 AM EDT Health Maintenance Due Date Last Done Comments HbA1c 01/23/2010 01/23/2009, 02/04, 11/23/1997, Additional history exists Zoster Vaccines (1 of 2) 09/18/2013 07/24/2013, 03/09 Adult Wellness Visit 02/23/2020 02/22/2019 COVID-19 Vaccine (2 - Pfizer risk series) 09/25/2020 09/04/2020 Albumin/Creatinine Ratio 01/11/2022 021, 01/28/2011, 11/20/2009, Additional history exists Depression Monitoring 05/14/2022 05/14/2021 CKD PHOS USE SMARTSET 02717 05/02/202304/07, 12/20/2020, 10/29/2020, Additional history exists GFR 07/28/2024 01/26/2024, 06/12/2023, 11/19/2023, Additional history exists TSH 11/18/2024 11/19/2023, 07/07, 04/15/2023, Additional history exists CKD HGB USE SMARTSET 43000 01/25/202501/25, 01/26/2024, 12/11/2023, Additional history exists DTap/Tdap [...] this encounter Medical Devices Implanted Type Area Fisheries Manager Device Identifier Shelf Expiration Date Model / Serial / Lot Cement Antibiotic Bone - [id number] Implanted:Qty: 5 on 10/10/2010 at [place] [facility] [place] Right: Knee [employer] 03/06/2012 6197-9-01 0 / / [id number] Surface Articular - [id number] Implanted:Qty: 1 on 10/10/2010 at [place] [facility] [place] Right: Knee [employer] 10/04/2018 00-5994-0 32-14 / / [id number] Augment Blk Dist Fem F 10mm - [id number] Implanted:Qty: 2 on 10/10/2010 at [place] [facility] [place] Right: Knee [employer] 09/03/2015 00-5490-0 36-20 / / [id number] Augment Blk Post Fem F 10mm - [id number] Implanted:Qty: 1 on 10/10/2010 at [place] [facility] [place] Right: Knee [employer] 06/05/2015 00-5490-0 36-02 / / [id number] Patella Poly Nexgen - [id number] Implanted:Qty: 1 on 10/10/2010 at [place] [facility] [place] Right: Knee [employer] 07/06/2018 00-5972-0 65-32 / / [id number] Cement Antibiotic Bone - [id number] Implanted:Qty: 1 on 10/10/2010 at [place] [facility] [place] [employer] 6197-9-01 0 / / Plug 20/24mm Insert - [id number] Implanted:Qty: 1 on 10/10/2010 at [place] [facility] [place] Right: Knee [employer] 00-8011-0 20- / / [id number] Stem Extension 5988-04-18 - [id number] Implanted:Qty: 1 on 10/10/2010 at [place] [facility] [place] Right: Knee [employer] 09/03/2020 00-5988-0 10- / / [id number] Femur Porous Lcck - [id number] Implanted:Qty: 1 on 10/10/2010 at [place] [facility] [place] Right: Knee [employer] 12/04/2019 00-5994-0 16-92 / / [id number] Augment Blk Trab Knee Tib 10mm - [id number] Implanted:Qty: 1 on 10/10/2010 at [place] [facility] [place] Right: Knee [employer] 05/06/2015 00-5448-0 03-10 / / [id number] Augment Blk Dist Fem F 10mm - [id number] Implanted:Qty: 1 on 10/10/2010 at [place] [facility] [place] Right: Knee [employer] 09/03/2015 00-5490-0 36-20 / / [id number] Augment Blk Post Fem F 5mm - [id number] Implanted:Qty: 1 on 10/10/2010 at [place] [facility] [place] Right: Knee [employer] 09/03/2015 00-5490-0 36-01 / / [id number] Plate Tibial Nexgen - [id number] Implanted:Qty: 1 on 10/10/2010 at [place] [facility] [place] Right: Knee [employer] 09/03/2020 00-5980-0 37- / / [id number] Stem Extension 5988-04-18 - [id number] Implanted:Qty: 1 on 10/10/2010 at [place] [facility] [place] Right: Knee [employer] 06/05/2020 00-5988-0 10-13 / / [id number] Lead Pace Selectsecure 3830-69 - [id number] - [id number] Implanted:Qty: 1 on 06/25/2021 by Gilma John, DO at OR [facility] Left: Heart [employer] : [facility] 05/16/2023 [id number] / [id number] / Description: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 - [id number] - [id number] Implanted:Qty: 1 on 06/25/2021 by Gilma John, DO at OR [facility] Left: Heart [employer] : [facility] 04/12/2023 5076-52 / [id number] / Description:Right Atrial Jayleen d Pacemaker [place] [facility] - [id number] - [id number] Implanted:Qty: 1 on 06/25/2021 by Gilma John, at OR [facility] Left: Chest [employer] 12/01/2022 [id number] / [id number] / Envelope Antibacterial Tyrx - [id number] Implanted:Qty: 1 on 06/25/2021 by Gilma John DO at OR [facility] Left: Chest [employer] : [facility] [id number] 02/16/2022 [id number] / / [id number] documented as of this encounter Visit Diagnoses Diagnosis Acute heart failure with normal ejection fraction (HCC) Hypomagnesemia Disorders of magnesium metabolism Hypocalcemia documented in this encounter Advance Directives * Full Code (Latest Code Status on File) Date Activated Date Inactivated Comments 10/10/2010 10:23 AM 10/12/2010 3:38 PM This order re flects the patients wishes and were consensually agreed upon. Care Teams Brazing Machine Tender Relationship Specialty Start Date End Date Telma Jacobs CRNP [address] [place] [address] PCP - General Nurse Practitioner 02/12/22 documented as of this encounter
--- OUTSIDE RECORDS SUMMARY | 2024-03-25 17:41 | External Medical Summary ---
Author Name Unknown Address Unknown Organization K01:[facility] [address] [place] [address] Laboratory Report Ordering Provider Test Date Status TYESHA COPE 03/16/2024 11:01:57 Final Observation Date Value Abnormality Reference (Units ) Status Magnesium 03/16/2024 11:01:57 2.0 1.5-2.6 (m g/dL) Final Performing Location [facility] [address] [place] [address]
--- OUTSIDE RECORDS SUMMARY | 2024-03-25 17:41 | External Medical Summary | Summary of Care ---
Author Name Unknown Organization [facility] Address [address] [place] [address] Phone [phone] Care Team Providers Care Heater Helper Name Role Phone Telma Jacobs Primary Care Provider Reason for Visit * Reason Comments Acute Pt here today due to being short of breath and his oxygen levels are all over the place.Pt stated he had a stomach issue (felt sick in the stomach) Encounter Details Date Type Department Care Team (Late st Contact Info) Description 03/11/2024 3:40 PM EDT Office Visit [facility] [address] [place] [address] Shayne Azar MD [address] [place] [address] Hypoxia*; Risk and functional assessment; SOB (shortness of breath); Abdominal pain, generalized; Persistent atrial fibrillation (HCC); History of 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 (PE); Tachy-deborah syndrome (HCC); Stage 3b chronic kidney disease (HCC); Other chronic pulmonary embolism without acute cor pulmonale (HCC); 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, unspecified whether stage 3a or 3b CKD (HCC); Chronic diastolic CHF (congestive heart failure), NYHA class 3 (HCC); Chronic heart failure with preserved ejection fraction (HCC) Allergies Active Allergy Reactions Criticality Noted Date Comments Covid-19 (Mrna) Vaccine 01/29/2024 Other Reaction(s): probable reaction: throat swelling documented as of this encounter (statuses as of 03/11/2024) Medications Medication Sig Dispensed Refills Start Date [...] the morning. 90 Tablet 3 05/08/2023 Active Terazosin HCl 5 MG Oral Capsule [...] Hour (toPROL XL)Indications:PAF (paroxysmal atrial fibrillation) ([facility]) Take 1 Tablet by mouth 2 times a day. 60 Tablet 5 11/19/2023 Active Eplerenone 25 MG Oral Tablet (Inspra)Indications:C hronic diastolic CHF (congestive heart failure), NYHA class 3 ([facility]) Take 0.5 Tablets by mouth in the [...] minutes before bedtime 30 Tablet 02/18/2024 Active Diphenoxylate-Atropin e 2.5-0.025 MG Oral Tablet (Lomotil) TAKE 1 [...] as of this encounter (statuses as of 03/11/2024) Active Problems Problem Noted Date Diagnosed Date Hypocalcemia 01/27/2024 Prediabetes 01/02/2024 Bladder stones 12/10/2023 Adjustment disorder with mix ed disturbance of emotions and conduct 10/08/2023 Chronic pulmonary embolism 01/15/2023 Persistent atrial fibrillation 12/05/2022 Hypomagnesemia 12/05/2022 Pulmonary embolus 07/04/2022 Scarring of lung 07/04/2022 Vitamin D deficiency 05/07/2022 B12 deficiency 05/07/2022 Tachy-deborah syndrome 05/27/2021 LBBB (left bundle branch block) 05/27/2021 Coronary artery disease invo lving [place] coronary artery of [place] heart without angina pectoris 05/27/2021 Chronic heart failure with preserved ejection fr action 05/27/2021 Major depressive disorder, recurrent episode, mo derate 01/03/2021 History of 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 (PE) 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 0 10/22/2020 History of Clostridium difficile infection 10/22 Stage 3b chronic kidney disease 10/22/2020 Body mass index (BMI) of 40.0 to 44.9 in adult 1 Overview: Per Obesity protocol Hypoalbuminemia 04/12/2020 Multiple myeloma not having achieved remission [...] as of this encounter (statuses as of 03/11/2024) Resolved Problems Problem Noted Date Diagnosed Date Resolved Date Rash and nonspecific skin eruption 01/27/2024 02/20/2024 Urinary retention 01/02/2024 02/20/2024 Dysuria 12/26/2023 02/20/2024 Sore throat 12/26/2023 02/20/2024 Thrush 12/26/2023 02/20/[address] 12/19/202302/04 Abdominal pain, generalized 12/10/2023 02/20/2024 Nausea without vomiting 12/10/202302/04 Left foot pain 10/22/2023 02/20/2024 Memory changes 10/08/2023 02/20/2024 Abrasion 10/08/2023 02/20/2024 Hospital discharge follow-up 12/05/2022 02/20/2024 Nostril infection 02/12/2022 02/20/2024 Tachy-deborah syndrome 06/25/2021 022 PAF (paroxysmal atrial fibrillation) 05/27/2021 02/20/2024 Poison annabelle dermatitis 02/03/20212023 Major depressive disorder, r ecurrent episode, moderate 11/06/2020 11/06/2020 Class 2 severe obesity due t o excess calories with serious comorbidity and body mass index (BMI) of 38.0 to 38.9 in adult 11/06/2020 Angio-edema 10/25/2020 02/20/2024 Acute decompensated heart failure 04/12/2020 02/20/2024 Class 2 severe obesity due t [...] 11/01/2010 09/09/2011 VENOUS THROMBOSIS PROPHYLAXIS 10/10/2010 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/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 10/10/2010 [...] as of this encounter (statuses as of 03/11/2024) Immunizations Name Administration Dates Next Due COVID-19 mRNA, LNP-s, No Pre serve, 2-Dose Series (Pfizer) 09/04/2020 H1N1 2009 Influenza, IM 08/11/2009 Pneumococcal Conjugate Vacc, 13 Valent (Prevnar) 11/20/2015 Pneumococcal Polysaccharide PPV23 (Pneumovax) 11/04/2012,01/16/2006 RSV Vac., Bivalent, Perfusio n F, Pf,0.5 Ml (Abrysvo) 08/13/2023 Seasonal Influenza Virus Vac cine, Unspecified Formulation 04/27/2021,03/27/2020,03/17/2019,11/03/2018,05/22/2017,04/03/2016,04/28/20 15,04/14/2014,03/24/2013,03/11/2012,1 ,05/11/2010,05/01/2009,05/11,04/17/2006,05/03/2003 Seasonal Influenza, PF, 6 M [...] Sign Reading Time Taken Comments Blood Pressure 112/70 03/11/2024 3:42 PM EDT Pulse 84 03/11/2024 3:42 PM EDT Temperature 36.6 C (97.9 F) 03/11/2024 3:42 PM ED T Respiratory Rate 18 03/11/2024 3:42 PM EDT Oxygen Saturation 93% 03/11/2024 3:42 PM EDT Inhaled Oxygen Concentration - - Weight 126.1 kg (278 lb) 03/11/2024 3:42 PM EDT Height - - Body Mass Index 43.54 02/20/2024 3:22 PM EDT documented in this encounter Patient Instructions * Patient Instructions* Shasha Godinez LPN - 03/11/2024 3:47 PM EDT Patient Instructions - Fall Prevention (This education is for all patients over 65 regardless of symptoms) Remember to take your current medications as prescribed. In order to prevent falls, you are encouraged to: Exercise Utilize assistive/adaptive devices Avoid multifocal lenses when walking Avoid hazards in home Maintain a regular toileting schedule Any questions please contact our office. Preventing Falls in the Home (This education is for all patients over 65 regardless of symptoms) As you get older, falls are more likely. Thats because your reaction time slows. Your muscles and joints may also get stiffer, making them less flexible. Illness, medications, and vision changes can also affect your balance. A fall could leave you unable to live on your own. To make your home safer, follow these tips: Floors Put nonskid pads under area rugs Remove throw rugs Replace worn floor coverings Tack carpets firmly to each step on carpeted stairs. Put nonskid strips on the edges of uncarpeted stairs Keep floors and stairs free of clutter and cords Arrange furniture so there are clear pathways Clean up any spills right away Bathrooms Install grab bars in the tub or shower Apply nonskid strips or put a nonskid rubber mat in the tub or shower Sit on a bath chair to bathe Use bathmats with nonskid backing Lighting Keep a flashlight in each room Put a nightlight along the pathway between the bedroom and the bathroom [facility] Patient Education Copyright 2008 - 2010 [employer] except where otherwise noted Preventing Falls: Exercises to Improve Balance, Flexibility, Strength, and Staying Power (This education is for all patients over 65 regardless of symptoms) Certain types of exercises may help make you less likely to fall. Try the ones below. Or do other exercises that your healthcare provider suggests. Depending on your health, you may need to start slowly. Dont let that stop you. Even small amounts of exercise can help you. Be sure to talk to yourhealthcare provider before starting any exercise program. Improve Balance Many types of exercise can help improve balance. Oneal chi and yoga are good examples. Heres another one to try. You can do it anytime and almost anywhere. Stand next to a counter or solid support. Push yourself up onto your tiptoes. Hold for 5 seconds. If you start to lose your balance, hold on to the counter. Rest and repeat 5 times. Work up to holding for 20 to 30 seconds, if you can. Increase Flexibility Being more flexible makes it easier for you to move around safely. Try exercises like the seated hamstring stretch. Sit in a chair and put one foot on a stool. Straighten your leg and reach with both hands down either side of your leg. Reach as far down your leg as you can. Hold for about 20 seconds. Go back to the starting position. Then repeat 5 times. Switch legs. Build Strength Resistance exercises help build strength. You can do them without equipment. Or you can use weights, elastic bands, or special machines. One such exercise is called the biceps curl. You can hold a 1 pound weight or even a can of soup. Do this exercise at least 3 times a week. Strive for everyday. Sit up straight in a chair. Keep your elbow close to your body and your wrist straight. Bend your arm, moving your hand up to your shoulder. Then slowly lower your arm. Repeat 5 times. Switch to the other arm. Build Your Staying Power Aerobic exercises make your heart and lungs stronger so you can keep moving longer. Walking and swimming are two of the best types of exercises you can do. Using a stationary bike is great, too. Find an aerobic exercise that you enjoy. Start slowly and build up. Even 5 minutes is helpful. Aimfor a goal of 30 minutes, at least 3 times a week. You dont have to do 30 minutes in one session. Break it up and walk a little throughout the day. More Helpful Tips Start easy. Slowly work up to doing more. Talk with your healthcare provider about the best exercises for you. Call senior centers or health clubs about exercise programs. If needed, have a family member watch you walk every so often to check your stability. Exercise with a friend. Choose an activity you both enjoy. Try exercises that you can do anytime, anywhere. Here are two examples. Have someone with you when you first try these: Practice walking by placing one foot right in front of the other. Stand up and sit down 10 times. Repeat this throughout the day. [employer] Patient Education Copyright 2009 - 2010 [employer] except where otherwise noted. Preventing Falls: Moving Safely Using a Cane or Walker (This education is for all patients over 65 regardless of symptoms) Keep the cane away from your feet so you dont trip. A walking aid, such as a cane or walker, can help you stay more independent and avoid falls. Remember to keep your walking aid within easy reach when youre in a chair or in bed. And learn how to use it safely so you dont injure yourself. Using a Cane If you have a stronger side, hold the cane on that side. Get your balance. Move the cane and your weaker leg forward. Support your weight on both the cane and your weaker side. Step with your stronger leg. Start again from step 1. If youre using a folding walker, be sure you know how to lock it open. Check that its locked open before each use. Using a Walker Roll the walker (or lift it, if youre using one without wheels) forward about 12 inches. Step forward with your weaker leg first. Use the walker to help keep your balance. Bring your other foot forward to the center of the walker. Start again from step 1. Helpful Tips Check with your healthcare provider about the right walking aid to use. Ask about a walker with a seat attached. Check the tips of your cane or walker to make sure they have nonskid covers. Move slowly from room to room. Dont izaguirre. Sit down to get dressed. Use a tone pack or backpack to keep your hands free. Get help for jobs that mean climbing, even on a stepstool. [employer] Patient Education Copyright 2009 - 2010 [employer] except where otherwise noted. Treating Urinary Incontinence in Men (This education is for all patients over 65 regardless of symptoms) You can't always control the release of urine. You may leak urine. Or you may not be able to hold your urine until you can get to a bathroom. This is called urinary incontinence. The problem can be managed. Talk to your doctor about your treatment options. Taking Medications Prescription medications may help you. They may: Help the sphincter to work better. (This is the muscle that closes to keep urine from leaking out of the bladder.) Help stop the bladder from [place] too often to push urine out. Help the bladder muscles contract with more force. Help relax the sphincter muscle and allow urine to flow more freely. Making Changes to Your Routine Certain changes in your daily routine may help. These include: Avoiding caffeine and alcohol. Using timed voiding. This is following a schedule for drinking fluids and urinating. Doing Kegel exercises daily. These exercises involve tightening the muscles in your sphincter and around your bladder to help strengthen them. Your doctor can explain how to do them. Using a Catheter A catheter is a narrow tube that is inserted through the urethra into the bladder. It drains urine.A condom catheter covers the penis. It channels urine into a collection bag. It is worn most of thetime. Intermittent catheterization means inserting a catheter to drain the bladder, then removing it. This is done on a regular schedule. Having Surgery If other options don't work, surgery may be recommended. If surgery is an option, your healthcare provider can discuss it with you and explain its risks and benefits. Healing After Prostate Surgery Surgery on the prostate gland can cause incontinence. Most often, the incontinence is only for a short time. It clears up when healing is complete. Very rarely, prostate surgery can result in permanent incontinence. documented in this encounter Progress Notes * Shayne Azar MD - 03/11/2024 4:30 PM EDT Subjective Corwin Dolan is a 83 year old male. Chief Complaint Patient presents with Acute Pt here today due to being short of breath and his oxygen levels are all over the place. Pt stated he had a stomach issue (felt sick in the stomach) HPI: Here for acute hypoxia with SOB since this morning He just took out his dog this morning, ( not walking ) showed severe SOB , checked O2 sat which showed 70s -60s Abd pain last 2 hours Denies CP, palpitation Known afib, PE, on eliquis, known CKD stage 3b, CHF , HTN, CAD Looks pale on any minor activity Still showed 70s O2 on just standing up Called EMS PMH: Patient Active Problem List Diagnosis BPH with obstruction/lower urinary tract symptoms Restless legs syndrome ASCVD (arteriosclerotic cardiovascular disease) NAHEED (obstructive sleep apnea) HTN, goal below 140/90 Elevated prostate specific antigen (PSA) Dyslipidemia, goal LDL below 70 Chronic diastolic CHF (congestive heart failure), NYHA class 3 (HCC) Hypothyroidism (acquired) Gout 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 (HCC) Multiple myeloma not having achieved remission (HCC) Gastroesophageal reflux disease without esophagitis 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) Hypoalbuminemia Body mass index (BMI) of 40.0 to 44.9 in adult (HCC) History of 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 (PE) 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 History of Clostridium difficile infection Stage 3b chronic kidney disease (HCC) Major depressive disorder, recurrent episode, moderate (HCC) Tachy-deborah syndrome (HCC) LBBB (left bundle branch block) Coronary artery disease involving [place] coronary artery of [place] heart without angina pectoris Chronic heart failure with preserved ejection fraction (HCC) Vitamin D deficiency B12 deficiency Pulmonary embolus (HCC) Scarring of lung Persistent atrial fibrillation (HCC) Hypomagnesemia Chronic pulmonary embolism (HCC) Adjustment disorder with mixed disturbance of emotions and conduct Bladder stones Prediabetes Hypocalcemia Current Outpatient Medications Medication Sig Dispense Refill acyclovir (ZOVIRAX) 400 MG Tablet Take 1 Tablet by mouth in the morning and 1 Tablet before bedtime. Meclizine HCl 12.5 MG Oral Tablet (ANTIVERT) Take 1 Tab by mouth 3 times a day as needed for Dizziness. 30 Tab 0 Apixaban 2.5 MG Oral Tablet (Eliquis) Take 1 Tablet by mouth 2 times a day. 180 Tablet 3 home oxygen/equipment IN GAS CPAP Albuterol Sulfate HFA 108 (90 Base) MCG/ACT Inhalation Aerosol Solution INHALE 2 PUFFS BY MOUTH EVERY 4 HOURS NEEDED FOR COUGH FOR SHORTNESS OF BREATH OR WHEEZE 18 g 1 Allopurinol 300 MG Oral Tablet (Zyloprim) TAKE 1 TABLET BY MOUTH EVERY DAY 90 Tablet 1 Levothyroxine Sodium 75 MCG Oral Tablet (Levoxyl) Take 1 Tablet by mouth in the morning. (at least 30 min prior to breakfast or other meds). 30 Tablet 11 Torsemide 40 MG Oral Tablet Take 40 mg by mouth in the morning. 90 Tablet 3 Terazosin HCl 5 MG Oral Capsule (Hytrin) TAKE 1 CAPSULE BY MOUTH EVERYDAY AT BEDTIME 90 Capsule 3 B-12 1000 MCG Oral Capsule TAKE 1 TABLET ORALLY EVERY 48 HOURS. 30 Capsule 5 Magnesium Oxide -Mg Supplement 400 (240 Mg) MG Oral Tablet (Mag-Ox) Take 1 Tablet by mouth in the morning and 1 Tablet before bedtime. 180 Tablet 3 Potassium Chloride ER 20 MEQ Oral Tablet Extended Release Take 30 MEQ by mouth daily. Atorvastatin Calcium 10 MG Oral Tablet (Lipitor) TAKE 1/2 TABLET BY MOUTH DAILY 45 Tablet 3 Montelukast Sodium 10 MG Oral Tablet (Singulair) Take 1 Tablet by mouth in the morning. 90 Tablet 1 Omeprazole 40 MG Oral Capsule Delayed Release (PriLOSEC) TAKE 1 CAPSULE BY MOUTH EVERY DAY 1 HOUR BEFORE THE FIRST MEAL OF THE DAY 90 Capsule 1 Metoprolol Succinate ER 50 MG Oral Tablet Extended Release 24 Hour (toPROL XL) Take 1 Tablet by mouth 2 times a day. 60 Tablet 5 Eplerenone 25 MG Oral Tablet (Inspra) Take 0.5 Tablets by mouth in the morning. 45 Tablet 3 DULoxetine HCl 60 MG Oral Capsule Delayed Release Particles (Cymbalta) Take 1 Capsule by mouth in the morning. Do not cut, crush or chew. 30 Capsule 3 Triamcinolone Acetonide 0.5 % External Cream (Aristocort) Apply topically to affected area 2 times a day. To affected area. 60 g 1 hydrALAZINE HCl 25 MG Oral Tablet (Apresoline) TAKE 1 TABLET BY MOUTH IN THE MORNING AND 1 TABLET AT AT NOON AND 1 TABLET AT BEDTIME 270 Tablet 3 traZODone HCl 50 MG Oral Tablet (Desyrel) 1 tablet 60 minutes before bedtime 30 Tablet 0 Diphenoxylate-Atropine 2.5-0.025 MG Oral Tablet (Lomotil) TAKE 1 TABLET BY MOUTH 4 TIMES A DAY NEEDED FOR DIARRHEA 120 Tablet 1 Abrysvo 120 MCG/0.5ML Intramuscular Solution Reconstituted (RSV Pre-Fusion F A&B Vac Rcmb) Inject into a large muscle. (Patient not taking: Reported on 11/19/2023) 1 Each 0 Current Facility-Administered Medications Medication Dose Route Frequency Provider Last Rate Last Admin albuterol sulfate (PROVENTIL) (2.5 MG/3ML) 0.083% inhalation solution 2.5 mg 2.5 mg Nebulizer Q4H PRN Musa Stout MD 2.5 mg at 11/14/17 1006 Past Medical History: Diagnosis Date Anemia ASCVD (arteriosclerotic cardiovascular disease) 10/22/2012 Benign neoplasm of colon colonoscopy 2002 Body mass index (BMI) of 40.0 to 44.9 in adult (HCC) 04/17/2020 Per Obesity protocol BPH without obstruction/lower urinary tract symptoms 11/06/2009 Chronic diastolic congestive heart failure (HCC) 03/04/2018 Diastolic heart failure (HCC) Diplopia 4.15.02 Dyslipidemia, goal LDL below 70 11/20/2015 Gastroesophageal reflux disease 03/04/2018 Generalized osteoarthritis 11/06/2009 Gout History of Clostridium difficile infection 10/22/2020 History of 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 (PE) 10/22/2020 HTN, goal below 140/80 Hyperparathyroidism (HCC) 07/17/2016 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 (HCC) 06/10/2019 Hypoalbuminemia 04/12/2020 Hypothyroidism (acquired) Kidney disease, chronic, stage III (GFR 30-59 ml/min) (HCC) 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 10/22/2020 Major depressive disorder, recurrent episode, moderate (HCC) Monoclonal paraproteinemia 03/17/2019 Multiple myeloma not having achieved remission ([facility]) 07/22/2019 Organic sleep disorder NAHEED (obstructive sleep apnea) 12/09/2013 on bipap Restless legs syndrome 04/10/2010 Selective deficiency of immunoglobulin a (iga) ([facility]) 07/22/2019 Selective deficiency of immunoglobulin m (igm) ([facility]) 07/22/2019 Past Surgical History: Procedure Laterality Date ARTHROCENT ASP &/OR INJ MAJOR JX/BURSA W/O US 06/11/2018 ARTHROCENTESIS OR INJECTION MAJOR JOINT performed by Chilango Mckeon DO at OR [facility] ARTHROPLASTY KNEE TOTAL 09/14/2009 Knee replacement - right- Dr duran (4 times since june) ARTHROPLASTY KNEE TOTAL 12/15/2008 Knee replacement - left- Dr duran COLONOSCOPY, DIAGNOSTIC (RECTUM) 04/08/2012 COLONOSCOPY FLEXIBLE PROXIMAL DIAGNOSTIC performed by Kvng Jeffers MD at ENDOSCOPY [facility] COLONOSCOPY, DIAGNOSTIC (RECTUM) 07/23/2017 adenomatous polyp/COLONOSCOPY FLEXIBLE PROXIMAL DIAGNOSTIC performed by Kvng Jeffers MD at ENDOSCOPY [facility] COLORECTAL CANCER SCREEN; COLON 05/19/2002 free of residual or metachronous neoplasia. repeat in 3 years COLORECTAL CANCER SCREEN; NOT AT RISK 03/2007 repeat 5 yrs, normal DEXA SCAN/BONE MINERAL AXIAL 11/2009 repeat only if symptomatic EGD, FLEXIBLE, DIAGNOSTIC 02/13/2015 mild-mod inflammation, erosive gastropathy, repeat 6 mo/ESOPHAGOGASTRODUODENOSCOPY (EGD), FLEXIBLE,TRANSORAL, DIAGNOSTIC performed by Coy Hugo MD at ENDOSCOPY [facility] EGD, FLEXIBLE, DIAGNOSTIC 08/16/2015 mild-mod inflammation, Schatzki ring/ESOPHAGOGASTRODUODENOSCOPY (EGD), FLEXIBLE, TRANSORAL, DIAGNOSTIC performed by Coy Hugo MD at ENDOSCOPY [facility] EXPLORATION OF MAXILLARY SINUS 03/02/1999 right endoscopic bx, and right endoscopic maxillary sinus bx by dr. sueor INFORMATION 1979 right facial numbness post nerve cut for tic fayeoreux INFORMATION 05/2019 appendix INSERT/REPLACE PACEMAKER,ATRIAL/VENTRICULAR Left 06/25/2021 NEW DDD PACEMAKER IMPLANT performed by Gilma John DO at OR [facility] LUMBAR / SACRAL EPIDURAL, SINGLE LEVEL 04/02/2018 INJECTION TRANSFORAMINAL EPIDURAL LUMBAR OR SACRAL performed by Chilango Mckeon, at OR [facility] REMOVE CATARACT, INSERT LENS PROSTH 05/2015, 07/2015 Bilateral REMOVE GALLBLADDER 1993 Cholecystectomy REVISE KNEE JOINT REPLACEMENT 10/10/2010 TOTAL KNEE REVISION FEMUR AND TIBIA performed by LASHAE BRONSON at [place] [facility] TOTAL HIP REPLACEMENT & PROSTHESIS Right 11/11/2013 Hip Replacement TOTAL HIP REPLACEMENT & PROSTHESIS Left 10/2018 Dr Tamayo Review of patient's allergies indicates: Allergen Reactions Covid-19 (Mrna) Vaccine Other Reaction(s): probable reaction: throat swelling Family History Problem Relation Name Age of Onset Diabetes Mother Hypertension Mother Hypertension Brother Diabetes Brother Diabetes Brother Heart Disorder Father mi Cancer Brother colon @70 Cancer Brother colon Mental Disorder None Stroke None No Known Problems Sister No Known Problems Sister Family Status Relation Status Mo Bro Bro Bro Fa Bro (Not Specified) Bro (Not Specified) NONE (Not Specified) NONE (Not Specified) Sis Alive MGMA MGFA PGMA Sis PGFA Social History Socioeconomic History Marital status: Spouse [...] 2 pints 2009 exercise: no diet: no bahai/catholic: faith marital status: 1976 children: 1/2 gc: 9 ggc: + pets: [...] Never true Transportation Needs: Not on file Social Connections: Unknown (03/11/2024) Social Connections How often do you feel lonely or isolated from those around you? (Adult - for ages 18 years and over): Not on file Housing Stability: Not on file Review of Systems Constitutional: Positive for activity change and fatigue. Negative for appetite change, chills, diaphoresis, fever and unexpected weight change. Respiratory: Positive for shortness of breath. Negative for cough, chest tightness and wheezing. Cardiovascular: Positive for leg swelling (mild chronic). Negative for chest pain and palpitations. Gastrointestinal: Positive for abdominal pain. Negative for abdominal distention, blood in stool, nausea and vomiting. Endocrine: Negative. Musculoskeletal: Positive for gait problem. Neurological: Positive for weakness (general). Negative for dizziness and light-headedness. Psychiatric/Behavioral: Negative for agitation and behavioral problems. Objective BP 112/70 | Pulse 84 | Temp 36.6 C (97.9 F) (Tympanic) | Resp 18 | Wt 126.1 kg (278 lb) | SpO2 93% | BMI 43.54 kg/m | BSA 2.44 m Physical Exam Constitutional: General: He is in acute distress (on standing). Appearance: Normal appearance. He is obese. He is not ill-appearing, toxic- appearing or diaphoretic. HENT: Head: Normocephalic and atraumatic. Eyes: Extraocular Movements: Extraocular movements intact. Cardiovascular: Rate and Rhythm: Normal rate. Rhythm irregular. Pulmonary: Effort: Respiratory distress (on just standing up) present. Breath sounds: No stridor. No wheezing, rhonchi or rales. Chest: Chest wall: No tenderness. Musculoskeletal: Right lower leg: Edema (trace) present. Left lower leg: Edema (trace) present. Neurological: General: No focal deficit present. Mental Status: He is alert and oriented to person, place, and time. Cranial Nerves: No cranial nerve deficit. Psychiatric: Behavior: Behavior normal. ASSESSMENT/PLAN: Hypoxia (Primary) Risk and functional assessment SOB (shortness of breath) Abdominal pain, generalized Persistent atrial fibrillation (HCC) History of 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 (PE) Tachy-deborah syndrome (HCC) Stage 3b chronic kidney disease (HCC) Other chronic pulmonary embolism without acute cor pulmonale (HCC) 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, unspecified whether stage 3a or 3b CKD (HCC) Chronic diastolic CHF (congestive heart failure), NYHA class 3 (HCC) Chronic heart failure with preserved ejection fraction (HCC) Called EMS , sending to ER Shayne Azar MD documented in this encounter Nursing Notes * Shasha Godinez LPN - 03/11/2024 3:38 PM EDT Chief Complaint Patient presents with Acute Pt here today due to being short of breath and his oxygen levels are all over the place. Pt stated he had a stomach issue (felt sick in the stomach) documented in this encounter Plan of Treatment Upcoming Encounters Date Type Department Care Team (Late st Contact Info) Description 03/16/2024 10:00 AM EDT Office Visit [facility] [address] [id number] Telma Jacobs CRNP [address] [place] [place] [phone] 04/06/2024 2:20 PM EDT Office Visit [facility] [address] [address] Telma Jacobs CRNP [address] [address] 06/08/2024 2:00 PM EST Office Visit [facility] [address] [address] Telma Jacobs CRNP [address] [address] 07/28/2024 3:00 PM EST Office Visit Family Practice [facility] [address] [place] [address] Telma Jacobs CRNP [address] [place] [address] Health Maintenance Due Date Last Done Comments HbA1c 01/23/2010 01/23/2009, 02/04, 11/23/1997, Additional history exists Zoster Vaccines (1 of 2) 09/18/2013 07/24/2013, 03/09 Adult Wellness Visit 02/23/2020 02/22/2019 COVID-19 Vaccine (2 - Pfizer risk series) 09/25/2020 09/04/2020 Albumin/Creatinine Ratio 01/11/2022 021, 01/28/2011, 11/20/2009, Additional history exists Depression Monitoring 05/14/2022 05/14/2021 CKD PHOS USE SMARTSET 19700 05/02/202304/07, 12/20/2020, 10/29/2020, Additional history exists Influenza Vaccine (FLU shot) (#1) 2024 04/01/2023, 03/15/2022, 04/27/2021, Additional history exists GFR 07/28/2024 01/26/2024, 06/12/2023, 11/19/2023, Additional history exists TSH 11/18/2024 11/19/2023, 07/07, 04/15/2023, Additional history exists CKD HGB USE SMARTSET 04912 01/25/202501/25, 01/26/2024, 12/11/2023, Additional history exists DTap/Tdap Vaccines (2 - Td or Tdap) 10/07/2033 10/08/2023, 06/23/2007 Pneumococcal Vaccine: 65+ Years Completed 11/20/2015, 11/04/2012, 01/16/2006 HPV (Gardasil) Vaccine Aged Out No lo nger eligible based on patient's age to complete this topic Hepatitis B Vaccine Aged Out No longe r eligible based on patient's age to complete this topic MENINGOCOCCAL (MENACTRA/MENVEO) Aged Out No longer eligible based on patient's age to complete this topic documented as of this encounter Medical Devices Implanted Type Area Management Associate Device Identifier Shelf Expiration Date Model / Serial / Lot Cement Antibiotic Bone - [id number] Implanted:Qty: 5 on 10/10/2010 at [place] [facility] Right: Knee [employer] 03/06/2012 6197-9-01 0 / / [id number] Surface Articular - [id number] Implanted:Qty: 1 on 10/10/2010 at [place] [facility] Right: Knee [employer] 10/04/2018 00-5994-0 32-14 / / [id number] Augment Blk Dist Fem F 10mm - [id number] Implanted:Qty: 2 on 10/10/2010 at [place] [facility] Right: Knee [employer] 09/03/2015 00-5490-0 36-20 / / [id number] Augment Blk Post Fem F 10mm - [id number] Implanted:Qty: 1 on 10/10/2010 at [place] [facility] Right: Knee [employer] 06/05/2015 00-5490-0 36-02 / / [id number] Patella Poly Nexgen - [id number] Implanted:Qty: 1 on 10/10/2010 at [place] [facility] Right: Knee [employer] 07/06/2018 00-5972-0 65-32 / / [id number] Cement Antibiotic Bone - [id number] Implanted:Qty: 1 on 10/10/2010 at [place] [facility] [employer] 6197-9-01 0 / / Plug 20/24mm Insert - [id number] Implanted:Qty: 1 on 10/10/2010 at [place] [facility] Right: Knee [employer] 00-8011-0 20-01 / / [id number] Stem Extension 5988-04-18 - [id number] Implanted:Qty: 1 on 10/10/2010 at [place] [facility] Right: Knee [employer] 09/03/2020 00-5988-0 10-13 / / [id number] Femur Porous Lcck - [id number] Implanted:Qty: 1 on 10/10/2010 at [place] [facility] Right: Knee [employer] 12/04/2019 00-5994-0 16-92 / / [id number] Augment Blk Trab Knee Tib 10mm - [id number] Implanted:Qty: 1 on 10/10/2010 at [place] [facility] Right: Knee [employer] 05/06/2015 00-5448-0 03- / / [id number] Augment Blk Dist Fem F 10mm - [id number] Implanted:Qty: 1 on 10/10/2010 at [place] [facility] Right: Knee [employer] 09/03/2015-5490-0 36-20 / / [id number] Augment Blk Post Fem F 5mm - [id number] Implanted:Qty: 1 on 10/10/2010 at [place] [facility] Right: Knee [employer] 09/03/2015-5490-0 36- / / [id number] Plate Tibial Nexgen - [id number] Implanted:Qty: 1 on 10/10/2010 at [place] [facility] Right: Knee [employer] 09/03/2020-5980-0 37- / [id number] Stem Extension 5988-04-18 - [id number] Implanted:Qty: 1 on 10/10/2010 at [place] [facility] Right: Knee [employer] 06/05/2020-5988-0 10- / [id number] Lead Pace Selectsecure 3830-69 - [id number] - [id number] Implanted:Qty: 1 on 06/25/2021 by Gilma John DO at OR [facility] Left: Heart [employer] : [employer] 05/16/2023 [id number] / [id number] / Description: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 - [id number] - [id number] Implanted:Qty: 1 on 06/25/2021 by Gilma John DO at OR [facility] Left: Heart [employer] : [facility] 04/12/2023 5076-52 / [id number] / Description:Right Atrial Jayleen d Pacemaker [place] Xt Dr Mri Wrls - [id number] - [id number] Implanted:Qty: 1 on 06/25/2021 by Gilma John DO at OR [facility] Left: Chest [employer] 12/01/2022 [id number] / [id number] / Envelope Antibacterial Tyrx - [id number] Implanted:Qty: 1 on 06/25/2021 by Gilma John DO at OR [facility] Left: Chest [employer] : [id number] 02/16/2022 [id number] / / [id number] documented as of this encounter Visit Diagnoses Diagnosis Hypoxia- Primary Hypoxemia Risk and functional assessment Screening for unspecified condition SOB (shortness of breath) Shortness of breath Abdominal pain, generalized Persistent atrial fibrillation (HCC) Atrial fibrillation History of 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 (PE) Personal history of pulmonary embolism Tachy-deborah syndrome (HCC) Sinoatrial node dysfunction Stage 3b chronic kidney disease (HCC) Other chronic pulmonary embolism without acute cor pulmonale (HCC) 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, unspecified whether stage 3a or 3b CKD (HCC) Chronic diastolic CHF (congestive heart failure), NYHA class 3 (HCC) Chronic diastolic heart failure Chronic heart failure with preserved ejection fraction (HCC) documented in this encounter Advance Directives * Full Code (Latest Code Status on File) Date Activated Date Inactivated Comments 10/10/2010 10:23 AM 10/12/2010 3:38 PM This order re flects the patients wishes and were consensually agreed upon. Care Teams Heater Helper Relationship Specialty Start Date End Date Telma Jacobs CRNP [address] [place] [phone] PCP - General Nurse Practitioner 02/12/22 documented as of this encounter"
--- OUTSIDE RECORDS SUMMARY | 2024-03-25 17:41 | External Medical Summary | Summary of Care ---
Author Name Unknown Organization [facility] Address [address] [place] [address] Phone [phone] Care Team Providers Care Brazing Machine Setter Name Role Phone Telma Jacobs Primary Care Provider Reason for Referral * Evaluate & Treat - Unlimited Visits (Within 3 days (urgent)) - Pending Review Specialty Diagnoses / Procedures Referred By Gunjan brooks Referred To Contact Sleep Medicine / Sleep Disorders Diagnoses Acute respiratory failure, unspecified whether with hypoxia or hypercapnia (HCC) NAHEED (obstructive sleep apnea) Telma Jacobs CRNP [address] [place] [address] Referral ID Status Reason Start Date Expiration Date Visits Requested Visits Authorized [id number] Pending Review Specialty Services Required 03/16/2024 2 2 Question Answer CAD SLEEP MED ADULT REFERRAL Sleep Apnea Testing and Management Does the patient snore and/or gasp at night or has been told they stop breathing at night? Yes, document patient's symptoms in progress note Referral Priority Within 3 days (urgent) Where should this appointment be scheduled? Sanjay Comments CPAP MANAGEMENT Reason for Visit * Reason Onset Date Comments Hospital Follow-Up AT HOME WITH NASRINID, THEY ARE ON SEPARATE FLOORS. Hospital Follow-Up 03/16/2024 Medication Administration 03/16/2024 Flu an d/or Pneumo Inj Encounter Details Date Type Department Care Team (Late st Contact Info) Description 03/16/2024 10:00 AM EDT Office Visit Family [facility] [address] [place] [address] Telma Jacobs CRNP [address] [place] [address] Hospital discharge follow-up*; Acute heart failure with normal ejection fraction (HCC); Acute respiratory failure, unspecified whether with hypoxia or hypercapnia (HCC); Chronic heart failure with preserved ejection fraction (HCC); NAHEED (obstructive sleep apnea); Hypomagnesemia; Hypocalcemia; Need for prophylactic vaccination and inoculation against influenza Allergies Active Allergy Reactions Criticality Noted Date [...] 24 Hour (toPROL XL)Indications:PAF (paroxysmal atrial fibrillation) ([facility]) Take 1 Tablet by mouth 2 times a day. 60 Tablet 5 11/19/2023 Active Eplerenone 25 MG Oral Tablet (Inspra)Indications: Chronic diastolic CHF (congestive heart failure), NYHA class 3 ([facility]) Take 0.5 Tablets by mouth in the [...] block) 05/27/2021 Coronary artery disease invo lving chickaloon coronary artery of chickaloon heart without angina pectoris 05/27/2021 Chronic heart failure with preserved ejection fr action 05/27/2021 Major depressive disorder, recurrent episode, mo derate 01/03/2021 History of 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 (PE) 10/22/2020 [facility] current use of anticoagulant therapy 0 10/22/2020 [...] pain, generalized 12/10/2023 02/20/2024 Nausea without vomiting 12/10/2023 0812/2023 Left foot pain 10/22/2023 02/20/2024 Memory changes [...] 11/01/2010 09/09/2011 VENOUS THROMBOSIS PROPHYLAXIS 10/10/2010 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/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 current use of ant icoagulant therapy 10/10/2010 [...] Seasonal Influenza Virus Vac cine, Unspecified Formulation 04/27/2021,03/27/2020,03/17/2019,110 03/2018,05/22/2017,04/03/2016,04/28/20 15,04/14/2014,03/24/2013,03/11/2012,1 ,05/11/2010,05/01/2009,05/11,04/17/2006,05/03/2003 Seasonal Influenza, High Dos e, [...] Sign Reading Time Taken Comments Blood Pressure 104/62 03/16/2024 10:10 AM EDT Pulse 78 03/16/2024 10:10 AM EDT Temperature - - Respiratory Rate - - Oxygen Saturation 96% 03/16/2024 10:10 AM EDT Inhaled Oxygen Concentration - - Weight 127.1 kg (280 lb 2 oz) 03/16/2024 10:10 A M EDT Height - - Body Mass Index 43.87 02/20/2024 3:22 PM EDT documented in this encounter Progress Notes * Margaret Villavicencio LPN - 03/16/2024 10:49 AM EDT PRE - ADMINISTRATION DOCUMENTATION Are you experiencing any cold symptoms or fever? No Have you had Guillain-Saint Marys Syndrome (an illness that causes paralysis) within the last 6 weeks? No Have you had the flu shot in the past? YES Have you ever had a reaction to the flu shot? No Margaret Villavicencio LPN, 03/16/2024 10:49 AM Immunization Administration Documentation Time Out Procedure Performed: Yes Patient Identified (Ask Name/Date of ): Yes Does the patient have a fever greater than 101 degrees today? No Patient allergic to latex? No VFC Stock: No Injection(s) verified: Yes, Injection Name: FLUZONE HD Verified Side and Site: Yes Verified Shot(s) with Parent(s)/Patient: Yes * Tlema Jacobs CRNP - 03/16/2024 10:18 AM EDT SUBJECTIVE: Corwin Dolan is a 83 year old male. Chief Complaint Patient presents with Hospital Follow-Up AT HOME WITH COVID, THEY ARE ON SEPARATE FLOORS. Hospital Follow-Up Recent Admission: Patient was recently admitted to Hospital discharged on 03/15/2024. He was admitted to [facility]. The dateof discharge was 03/15/2024. Discharge report received and reviewed. He was diuresed with IV lasix. He was discharged on lasix 60 mg He had 2 step oxygen testing. HPI: Mr. Dolan presents for hospital followup. Recently admitted for acute on chronic CHF. He was discharged on lasix 60 mg daily. Overall he is feeling less sob. Weight is improved. Calcium remains low off of calcium supplement. He is trying to consume more calcium in diet for thelast 4 weeks. Recheck was 8.4 in hospital. 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 (Patient taking differently: Take 60 mg by mouth in the morning.) 90 Tablet 3 Abrysvo 120 MCG/0.5ML Intramuscular Solution Reconstituted (RSV Pre-Fusion F A&B Vac Rcmb) Inject into a large muscle. (Patient not taking: Reported on 11/19/2023) 1 Each 0 Terazosin HCl 5 MG Oral Capsule (Hytrin) [...] DAY NEEDED FOR DIARRHEA 120 Tablet 1 Current Facility-Administered Medications Medication Dose Route Frequency Provider Last Rate Last Admin albuterol sulfate (PROVENTIL) (2.5 MG/3ML) 0.083% inhalation solution 2.5 mg 2.5 mg Nebulizer Q4H PRN Musa Stout MD 2.5 mg at 11/14/17 1006 Current and discharge medications have been reconciled. Review of patient's allergies indicates: Allergen Reactions Covid-19 (Mrna) Vaccine Other Reaction(s): probable reaction: throat swelling OBJECTIVE: BP 104/62 | Pulse 78 | Wt 127.1 kg (280 lb 2 oz) | SpO2 96% | BMI 43.87 kg/m | BSA 2.45 m REVIEW OF SYSTEMS: Review of Systems Constitutional: Negative for fatigue and fever. Respiratory: Negative for shortness of breath and wheezing. Cardiovascular: Negative for chest pain, palpitations and leg swelling. Gastrointestinal: Negative for abdominal pain. Neurological: Negative for dizziness and syncope. Psychiatric/Behavioral: Positive for sleep disturbance. Negative for dysphoric mood. The patient isnervous/anxious. PHYSICAL EXAM: BP 104/62 | Pulse 78 | Wt 127.1 kg (280 lb 2 oz) | SpO2 96% | BMI 43.87 kg/m | BSA 2.45 m Physical Exam HENT: Head: Normocephalic. Cardiovascular: Rate and Rhythm: Normal rate. Pulmonary: Effort: Pulmonary effort is normal. Breath sounds: Normal breath sounds. Abdominal: General: Bowel sounds are normal. Palpations: Abdomen is soft. Tenderness: There is no abdominal tenderness. Musculoskeletal: Right lower leg: Edema present. Left lower leg: Edema present. Neurological: General: No focal deficit present. Mental Status: He is alert and oriented to person, place, and time. Psychiatric: Mood and Affect: Mood normal. Behavior: Behavior normal. Thought Content: Thought content normal. Judgment: Judgment normal. ASSESSMENT: 1. Hospital discharge follow-up - DISCH MED RECON CUR MED LIS 2. Acute heart failure with normal ejection fraction (HCC) With elevated bnp Discharged home on 60 mg furosemide Recheck lytes and renal function - BASIC METABOLIC PANEL; Future - MAGNESIUM; Future 3. Acute respiratory failure, unspecified whether with hypoxia or hypercapnia (HCC) Secondary to chf 2 step before discharge was normal - SLEEP MEDICINE REFERRAL OP 4. Chronic heart failure with preserved ejection fraction (HCC) 5. NAHEED (obstructive sleep apnea) Restart cpap - SLEEP MEDICINE REFERRAL OP 6. Hypomagnesemia - BASIC METABOLIC PANEL; Future - MAGNESIUM; Future 7. Hypocalcemia HE HAS HAD INCREASED CALCIUM IN DIET FOR 4 WEEKS RECHECK IN HOSPITAL AT 8.4 up from 7s. - BASIC METABOLIC PANEL; Future - MAGNESIUM; Future I spent a total of 40-54 minutes (exact time 40 mins) on the date of service in preparation, delivery, and documentation of the care provided to Corwin Dolan excluding any time spent in the performance of separately billed services or time spent by another provider/QHP. ASHER Mota documented in this encounter Plan of Treatment Upcoming Encounters Date Type Department Care Team (Late st Contact Info) Description 03/24/2024 10:00 AM EDT Office Visit [facility] [address] [place] [phone] Yaneth Eduardo DO [address] [place] [address] 04/06/2024 2:20 PM EDT Office Visit [facility] [address] [place] [address] [address] Telma Jacobs CRNP [address] [place] [address] 04/20/2024 10:00 AM EDT Office Visit [facility] [address] [place] [address] Telma Jacobs CRNP [address] [place] [address] 04/27/2024 10:30 AM EDT Office Visit Cardiology, [facility] [address] [place] [address] Anna Rojas CRNP [address] [place], [place] [address] 06/08/2024 2:00 PM EST Office Visit [facility] [address] [place] [address] Telma Jacobs CRNP [address] [place] [address] 07/28/2024 3:00 PM EST Office Visit [facility] [address] [place] [address] Telma Jacobs CRNP [address] [place] [address] Pending Results Name Type Priority Associated Diagnoses Date /Time MAGNESIUM Lab Routine Acute heart failure with normal ejection fraction (HCC) Hypomagnesemia Hypocalcemia 03/16/2024 11:01 AM EDT Scheduled Orders Name Type Priority Associated Diagnoses Orde r Schedule MAGNESIUM Lab Routine Acute heart failure with normal ejection fraction (HCC) Hypomagnesemia Hypocalcemia Expected: 03/16/2024 (Approximate), Expires: 03/16/2025 Scheduled Referrals Name Type Priority Associated Diagnoses Orde r Schedule SLEEP MEDICINE REFERRAL OP Referral Within 3 days (urgent) Acute respiratory failure, unspecified whether with hypoxia or hypercapnia (HCC) NAHEED (obstructive sleep apnea) Ordered: 03/16/2024 Health Maintenance Due Date Last Done Comments HbA1c 01/23/2010 01/23/2009, 02/04, 11/23/1997, Additional history exists Zoster Vaccines (1 of 2) 09/18/2013 07/24/2013, 03/09 Adult Wellness Visit 02/23/2020 02/22/2019 COVID-19 Vaccine (2 - Pfizer risk series) 09/25/2020 09/04/2020 Albumin/Creatinine Ratio 01/11/2022 021, 01/28/2011, 11/20/2009, Additional history exists Depression Monitoring 05/14/2022 05/14/2021 CKD PHOS USE SMARTSET 41143 05/02/202304/07, 12/20/2020, 10/29/2020, Additional history exists GFR 09/13/2024 03/16/2024, 01/05, 12/11/2023, Additional history exists TSH 11/18/2024 11/19/2023, 07/07, 04/15/2023, Additional history exists CKD HGB USE SMARTSET 04009 01/25/202501/25, 01/26/2024, 12/11/2023, Additional history exists DTap/Tdap [...] this encounter Medical Devices Implanted Type Area Painter Foreman Device Identifier Shelf Expiration Date Model / Serial / Lot Cement Antibiotic Bone - [id number] [place] 5 [place] [facility] [place] Knee [employer] : [employer] 03/06/2012 6197-9-01 0 / / [id number] Surface Articular - [id number] Implanted:Qty: 1 on 10/10/2010 [place] [facility] [place]: Knee [employer] 10/04/2018 00-5994-0 32-14 / / [id number] Augment Blk Dist Fem F 10mm - [id number] Implanted:Qty: 2 on 10/10/2010 [place] [facility] [place]: Knee [employer] 09/03/2015 00-5490-0 36-20 / [id number] Augment Blk Post Fem F 10mm - [id number] Implanted:Qty: 1 on 10/10/2010 [place] [facility] [place]: Knee [employer] 06/05/2015-5490-0 36- / [id number] Patella Poly Nexgen - [id number] Implanted:Qty: 1 on 10/10/2010 [place] [facility] [place]: Knee [employer] 07/06/2018-5972-0 65-32 / / [id number] Cement Antibiotic Bone - [id number] Implanted:Qty: 1 on 10/10/2010 [place] [facility] [place] [employer] : OR[employer] 6197-9-01 0 / / Plug 20/24mm Insert - [id number] Implanted:Qty: 1 on 10/10/2010 [place] [facility] [place]: Knee [employer] 00-8011-0 20- / [id number] Stem Extension 5988-04-18 - [id number] Implanted:Qty: 1 on 10/10/2010 [place] [facility] [place]: Knee [employer] 09/03/2020 00-5988-0 10-13 / / [id number] Femur Porous Lcck - [id number] Implanted:Qty: 1 on 10/10/2010 [place] [facility] [place]: Knee [employer] 12/04/2019 00-5994-0 16-92 / / [id number] Augment Blk Trab Knee Tib 10mm - [id number] Implanted:Qty: 1 on 10/10/2010 [place] [facility] [place]: Knee [employer] 05/06/2015-5448-0 03 [id number] Augment Blk Dist Fem F 10mm - [id number] Implanted:Qty: 1 on 10/10/2010 [place] [facility] [place]: Knee [employer] 09/03/2015-5490-0 36 / [id number] Augment Blk Post Fem F 5mm - [id number] Implanted:Qty: 1 on 10/10/2010 [place] [facility] [place]: Knee [employer] 09/03/2015-5490-0 36- / [id number] Plate Tibial Nexgen - [id number] Implanted:Qty: 1 on 10/10/2010 [place] [facility] [place]: Knee [employer] 09/03/2020-5980-0 [id number] Stem Extension 5988-04-18 - [id number] Implanted:Qty: 1 on 10/10/2010 [place] [facility] [place]: Knee [employer] 06/05/2020-5988-0 04-18 [id number] Lead Pace Selectsecure 3830-69 - [id number] - [id number] Implanted:Qty: 1 on 06/25/2021 by Gilma John DO at OR [facility] Left: Heart [employer] : [facility] 05/16/2023 [id number] / [id number] / Description: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 - [id number] - [id number] Implanted:Qty: 1 on 06/25/2021 by Gilma John DO at OR [facility] Left: Heart [employer] : [facility] 04/12/2023 5076-52 / [id number] / Description:Right Atrial Jayleen d Pacemaker Sylvia Xt Dr Smith [email or web address]] - [id number] - [id number] Implanted:Qty: 1 on 06/25/2021 by Gilma John DO at OR [facility] Left: Chest [employer] 12/01/2022 [id number] / [id number] / Envelope Antibacterial Tyrx - [id number] Implanted:Qty: 1 on 06/25/2021 by Gilma John DO at OR [facility] Left: Chest [employer] : [facility] [id number] 02/16/2022 [id number] / / [id number] documented as of this encounter Results * (ABNORMAL) BASIC METABOLIC PANEL (03/16/2024 11:01 AM EDT) BUN 31(H) 6 - 20 mg/dL 03/16/2024 1:41 PM EDT [facility] Creatinine 1.7(H) 0.6 - 1.2 mg/dL 03/16/2024 1:41 PM EDT [facility] Estimated Glomerular Filtration Rate 41(L) >=60 mL/min 03/16/2024 1:41 PM EDT [facility] Comment:eGFR is calculated b ased on the CKD-EPI 2020 equation. Sodium 144 135 - 146 mmol/L 03/16/2024 1:41 PM EDT [facility] Potassium 3.9 3.5 - 5.1 mmol/L 03/16/2024 1:41 PM EDT [facility] Chloride 102 98 - 107 mmol/L 03/16/2024 1:41 PM EDT [facility] CO2 31 22 - 32 mmol/L 03/16/2024 1:41 PM EDT [facility] Anion Gap 11 7 - 15 mmol/L 03/16/2024 1:41 PM EDT [facility] Glucose 113 70 - 120 mg/dL 03/16/2024 1:41 PM EDT [facility] Calcium 8.3(L) 8.4 - 10.2 mg/dL 03/16/2024 1:41 PM EDT [facility] Blood Venous blood specimen / Unknown Venipuncture / Unknown 03/16/2024 11:01 AM EDT 03/16/2024 11:01 AM EDT Telma STERLING LAB BLOOD ORDE YARA [facility] Organization Address City/State/[facility] Co de Phone Number [facility] [address] [facility] [address] documented in this encounter Visit Diagnoses Diagnosis Hospital discharge follow-up- Primary Other follow-up examination Acute heart failure with normal ejection fraction (HCC) Acute respiratory failure, unspecified whether with hypoxia or hypercapnia (HCC) Chronic heart failure with preserved ejection fraction (HCC) NAHEED (obstructive sleep apnea) Obstructive sleep apnea (adult) (pediatric) Hypomagnesemia Disorders of magnesium metabolism Hypocalcemia Need for prophylactic vaccination and inoculation against influenza documented in this encounter Advance Directives * Full Code (Latest Code Status on File) Date Activated Date Inactivated Comments 10/10/2010 10:23 AM 10/12/2010 3:38 PM This order re flects the patients wishes and were consensually agreed upon. Care Teams Brazing Machine Setter Relationship Specialty Start Date End Date Telma Jacobs CRNP [address] [place] [address] PCP - General Nurse Practitioner 02/12/22 documented as of this encounter"
--- OUTSIDE RECORDS SUMMARY | 2024-03-25 17:41 | External Medical Summary ---
Author Name Unknown Address Unknown Organization [id number] [address] [place] [id number] Laboratory Report Ordering Provider Test Date Status TYESHA COPE 03/16/2024 11:01:57 Final Observation Date Value Abnormality Reference (Units ) Status BUN 03/16/2024 11:01:57 31 Above high normal 6-20 (mg/dL) Final Creatinine 03/16/2024 11:01:57 1.7 Above high normal 0.6-1.2 (mg/dL) Final Glomerular filtration rate/1.73 sq M.predicted [Volume Rate/Area] in Serum, Plasma or Blood by Creatinine-based formula (CKD-EPI) 03/16/2024 11:01:57 41 Below low normal >=60 (mL/min) Final eGFR is calculated based on the CKD-EPI 2020 equation. Sodium 03/16/2024 11:01:57 144 135-146 (m mol/L) Final Potassium 03/16/2024 11:01:57 3.9 3.5-5.1 (m mol/L) Final Cl 03/16/2024 11:01:57 102 98-107 (mm ol/L) Final CO2 03/16/2024 11:01:57 31 22-32 (mmo l/L) Final Anion gap 03/16/2024 11:01:57 11 7-15 (mmol /L) Final Glucose 03/16/2024 11:01:57 113 70-120 (mg /dL) Final Calcium 03/16/2024 11:01:57 8.3 Below low normal 8.4 -10.2 (mg/dL) Final Performing Location [facility] [place] [facility] [place] [address]
--- OUTSIDE RECORDS SUMMARY | 2024-03-25 17:41 | External Medical Summary | Summary of Care ---
Author Name Unknown Organization [facility] Address [address] [facility] [place] [address] Phone [phone] Care Team Providers Care Systems Coordinator Name Role Phone Telma Jacobs Primary Care Provider Encounter Details Date Type Department Care Team (Late st Contact Info) Description 03/15/2024 Telephone Cardiology, [facility] [address] [place] [address] Gilma John, DO [address] [facility] [place] [address] Allergies Active Allergy Reactions Criticality Noted Date [...] (congestive heart failure), NYHA class 3 ([facility]) Take 0.5 Tablets by mouth in the [...] block) 05/27/2021 Coronary artery disease invo lving [place] coronary artery of [place] heart without angina pectoris 05/27/2021 Chronic heart failure with preserved ejection fr action 05/27/2021 Major depressive disorder, recurrent episode, mo derate 01/03/2021 History of 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 (PE) 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 Thank you * Telephone Encounter - Ang Obando OSA - 03/16/2024 9:22 AM EDT Called patient, spoke with daughter, and confirmed appt for April for the [facility] . * Telephone Encounter - Ang Obando OSA - 03/15/2024 8:37 AM EDT Patient has been scheduled on: RETURN CARDIOLOGY at 10:30 AM (30 min)Arrive by 10:15 AM Saturday April 27, 2024 Appointment Provider:Anna Rojas CRNP in CARDIOLOGY [facility] * Telephone Encounter - Gilma John DO - 03/15/2024 8:31 AM EDT Pt was admitted to [facility] due to acute on chronic heart failure; he needs a follow up with general cardiology post discharge; Pt typically sees Amadeo Gomez Please assist with scheduling follow up Thank you Dr. John documented in this encounter Plan of Treatment Upcoming Encounters Date Type Department Care Team (Late st Contact Info) Description 03/24/2024 10:00 AM EDT Office Visit [facility] [address] [place] [phone] Yaneth Eduardo, DO [address] [place] [address] 04/06/2024 2:20 PM EDT [facility] [address] [place] [address] Telma Jacobs CRNP [address] [place] [address] 04/20/2024 10:00 AM EDT [facility] [address] [place] [address] Telma Jacobs CRNP [address] [place] [address] 04/27/2024 10:30 AM EDT Office Visit Cardiology, [facility] [address] [place] [address] Anna Rojas CRNP [address] [place] [address] 06/08/2024 2:00 PM EST [facility] [address] [place] [address] Telma Jacobs CRNP [address] [place] [id number] 07/28/2024 3:00 PM EST [facility] [address] [place] [address] Telma Jacobs CRNP [address] [place] [address] Health Maintenance Due Date Last Done Comments HbA1c 01/23/2010 01/23/2009, 02/04, 11/23/1997, Additional history exists Zoster Vaccines (1 of 2) 09/18/2013 07/24/2013, 03/09 Adult Wellness Visit 02/23/2020 02/22/2019 COVID-19 Vaccine (2 - Pfizer risk series) 09/25/2020 09/04/2020 Albumin/Creatinine Ratio 01/11/2022 021, 01/28/2011, 11/20/2009, Additional history exists Depression Monitoring 05/14/2022 05/14/2021 CKD PHOS USE SMARTSET 43295 05/02/202304/07, 12/20/2020, 10/29/2020, Additional history exists GFR 07/28/2024 01/26/2024, 06/0 12/2023, 11/19/2023, Additional history exists TSH 11/18/2024 11/19/2023, 07/07, 04/15/2023, Additional history exists CKD HGB USE SMARTSET 36301 01/25/202501/25, 01/26/2024, 12/11/2023, Additional history exists DTap/Tdap [...] this encounter Medical Devices Implanted Type Area Envelope Machine Adjuster Device Identifier Shelf Expiration Date Model / Serial / Lot Cement Antibiotic Bone - [id number] Implanted:Qty: 5 on 10/10/2010 at OR [facility] Right: Knee [employer] : [employer] 03/06/2012 6197-9-01 0 / / [id number] Surface Articular - [id number] Implanted:Qty: 1 on 10/10/2010 at OR [facility] Right: Knee [employer] 10/04/2018 00-5994-0 32-14 / / [id number] Augment Blk Dist Fem F 10mm - [id number] Implanted:Qty: 2 on 10/10/2010 at OR [facility] Right: Knee [employer] 09/03/2015 00-5490-0 36-20 / / [id number] Augment Blk Post Fem F 10mm - [id number] Implanted:Qty: 1 on 10/10/2010 at OR [facility] Right: Knee [employer] 06/05/2015 00-5490-0 36-02 / / [id number] Patella Poly Nexgen - [id number] Implanted:Qty: 1 on 10/10/2010 at OR [facility] Right: Knee [employer] 07/06/2018 00-5972-0 65-32 / / [id number] Cement Antibiotic Bone - [id number] Implanted:Qty: 1 on 10/10/2010 at OR [facility] [employer] : OR[employer] 6197-9-01 0 / / Plug 20/24mm Insert - [id number] Implanted:Qty: 1 on 10/10/2010 at OR [facility] Right: Knee [employer] 00-8011-0 20- / / [id number] Stem Extension 5988-04-18 - [id number] Implanted:Qty: 1 on 10/10/2010 at OR [facility] Right: Knee [employer] 09/03/2020 00-5988-0 10-13 / / [id number] Femur Porous Lcck - [id number] Implanted:Qty: 1 on 10/10/2010 at OR [facility] Right: Knee [employer] 12/04/2019 00-5994-0 16-92 / / [id number] Augment Blk Trab Knee Tib 10mm - [id number] Implanted:Qty: 1 on 10/10/2010 at [place] [facility] Right: Knee [employer] 05/06/2015 00-5448-0 09-13 [id number] Augment Blk Dist Fem F 10mm - [id number] Implanted:Qty: 1 on 10/10/2010 at [place] [facility] Right: Knee [employer] 09/03/2015-5490-0 36-20 / / [id number] Augment Blk Post Fem F 5mm - [id number] Implanted:Qty: 1 on 10/10/2010 at [place] [facility] Right: Knee [employer] 09/03/2015-5490-0 36- / / [id number] Plate Tibial Nexgen - [id number] Implanted:Qty: 1 on 10/10/2010 at [place] [facility] Right: Knee [employer] 09/03/2020-5980-0 / [id number] Stem Extension 5988-04-18 - [id number] Implanted:Qty: 1 on 10/10/2010 at OR [facility] Right: Knee [employer] 06/05/2020-5988-0 04-18 / [id number] Lead Pace Selectsecure 3830-69 - [id number] - [id number] Implanted:Qty: 1 on 06/25/2021 by Gilma John DO at OR [facility] Left: Heart [employer] : [facility] 05/16/2023 [id number] / [id number] / Description: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 - [id number] - [id number] Implanted:Qty: 1 on 06/25/2021 by Gilma John DO at OR [facility] Left: Heart [employer] : [facility] 04/12/2023 5076-52 / [id number] / Description:Right Atrial Jayleen d Pacemaker [place] Xt Dr Smith Wrls - [id number] - [id number] Implanted:Qty: 1 on 06/25/2021 by Gilma John DO at OR [facility] Left: Chest [employer] 12/01/2022 [id number] / [id number] / Envelope Antibacterial Tyrx - [id number] Implanted:Qty: 1 on 06/25/2021 by Gilma John DO at OR [facility] Left: Chest [employer] : CRM [id number] 02/16/2022 [id number] / / [id number] documented as of this encounter Advance Directives * Full Code (Latest Code Status on File) Date Activated Date Inactivated Comments 10/10/2010 10:23 AM 10/12/2010 3:38 PM This order re flects the patients wishes and were consensually agreed upon. Care Teams Systems Coordinator Relationship Specialty Start Date End Date Telma Jacobs CRNP [address] [place] [id number] PCP - General Nurse Practitioner 02/12/22 documented as of this encounter
[2024-03-25] MEDS: METOPROLOL SUCC 50MG EXT REL TAB PO SCH (20:18)
[2024-03-25] MEDS: APIXABAN 2.5 MG TAB PO SCH (20:18)
[2024-03-25] MEDS: TERAZOSIN HCL 5 MG CAP PO SCH (20:18)
[2024-03-25] MEDS: PANTOprazole 40 MG TAB PO SCH (20:18)
[2024-03-25] MEDS: traZODone HCL 100 MG TAB PO SCH (20:18)
[2024-03-25] MEDS: ACYCLOVIR 400 MG TAB PO SCH (20:18)
[2024-03-25] MEDS: MAGNESIUM OXIDE 400 MG TAB PO SCH (20:18)
[2024-03-26] MEDS: LEVOTHYROXINE SODIUM 75 MCG TABLET PO SCH (05:55)
[2024-03-26 07:08] LABS: BUN Creatinine Ratio 15.9 (10-20); Calcium 7.3 mg/dl (8.6-10.3); Creatinine Clr Calc Pharmacy 36.1 ml/min; Est GFR (African American) 38.9 ml/min; Est GFR (Non-African American) 33.6 ml/min; Magnesium 1.8 mg/dl (1.7-2.4)
[2024-03-26 07:39] LABS: Basophils # (auto) 0.02 K/uL (0.00-0.20); Basophils % (auto) 0.2 %; Hematocrit (blood only) 38.6 % (42.0-52.0); Hemoglobin 12.6 g/dl (14.0-18.0); Immature Granulocytes # (auto) 0.05 K/uL (0.01-0.20); Immature Granulocytes % (auto) 0.4 %; Lymphocytes # (auto) 1.56 K/uL (1.20-3.40); Mean Corpuscular Hemoglobin 30.6 pg (25.0-34.0); Mean Corpuscular Hgb Conc 32.6 g/dL (32.0-36.0); Mean Corpuscular Volume 93.7 fL (80.0-100.0); Mean Platelet Volume 11.5 fL (9.4-12.4); Monocytes # (auto) 0.34 K/uL (0.11-0.59); Monocytes % (auto) 2.8 %; Neutrophils # (auto) 10.07 K/uL (1.40-6.50); Neutrophils % (auto) 83.6 %; Platelet Count 259 K/uL (130-400); RDW Coefficient of Variation 14.3 % (11.5-14.5); RDW Standard Deviation 49.2 fL (36.4-46.3); Red Blood Count 4.12 M/uL (4.70-6.10); White Blood Count 12.04 K/ul (4.8-10.8)
[2024-03-26 08:05] VITALS: BP 128/83; TEMP 98.1; O2SAT 96
[2024-03-26] MEDS: allopurinoL 300 MG TAB PO SCH (08:07)
[2024-03-26] MEDS: ATORVASTATIN 10 MG TAB PO SCH (08:07)
[2024-03-26] MEDS: DULoxetine HCL 60 MG CAP PO SCH (08:07)
[2024-03-26] MEDS: dexAMETHasone 6 MG in SYRINGE 0 ML IV SCH (08:08)
[2024-03-26] MEDS: MONTELUKAST SODIUM 10 MG TABLET PO SCH (08:08)
[2024-03-26] MEDS: CHOLECALCIFEROL 25 MCG (1000 UNITS) TAB PO SCH (08:08)
[2024-03-26] MEDS: CYANOCOBALAMIN (B-12) 500 MCG TABLET PO SCH (08:08)
[2024-03-26] MEDS: POTASSIUM CHLORIDE CRTAB 20 MEQ TABCR PO SCH (08:09)
[2024-03-26 11:21] VITALS: PULSE 86; RESP 16
--- NOTE | 2024-03-26 11:43 | Discharge Summary ---
<Statement entered by Jevon Hawkins, DO - 03/26/24 15:13> I have seen and examined the patient and have discussed the case with the provider above. I have reviewed the advanced practitioner's documentation, and I agree with, and take responsibility for that plan of care. 12 minutes spent at the bedside evaluation of patient and coordination of care. Patient up and ambulating in his room. States he feels great. Denies any shortness of breath. O2 sat greater than 90% on room air. Discharge plans as outlined below Date of Service March 26, 2024 Admission HPI Per Admitting Provider This is an 83 y/o male with chronic HFpEF, nonobstructive CAD, chronic LBBB, HTN, dyslipidemia, recurrent atrial fibrillation, SSS s/p PPM, PE, chronic AC with Eliquis, NAHEED (has been CPAP noncompliant more recently), CKD (baseline creatinine around 1.7), multiple myeloma s/p treatment, hypothyroidism, immunoglobulin deficiency, and other history as outlined below who presented to the ED today with hypoxia. Pt was admitted to [facility] 03/11-03/16/24 with acute hypox emic respiratory failure and acute on chronic HFpEF. He improved with IV diuresis and was transitioned to po diuretic regimen. He was able to be successfully weaned off O2 and discharged home. He reports doing well initially at home. However, around 03/19, he developed URI symptoms and tested COVID positive. He reports that his entire family has had COVID, specifically that his developed symptoms first. He called his PCP office, who called in a five day course of molnupiravir which patient completed. This morning, home health came to see patient and found his oxygen sats were in the 80s on room air so he was referred to the ED for evaluation. Pt's main complaint at present is fatigue and generalized weakness. He has also had a cough, but he reports that this is improving. He denies feeling more short of breath than baseline. He denies chest pain, palpitations, syncope, N/V/D, sore throat, congestion. Admission Exam Per Admitting Provider Physical Exam: General: awake, alert, resting comfortably HEENT: no scleral icterus, moist oral mucosa Heart: irregularly irregular Lungs: mildly diminished at bases but otherwise clear Abdomen: soft, +BS Extremities: no significant pedal edema Skin: warm, dry, no jaundice Neurologic: no confusion or dysarthria, moving all extremities Principal Diagnosis Covid 19 with hypoxia Discharge Exam General: awake, alert, no apparent distress, obese white male Head: Normocephalic, atraumatic ENT: PERRL, EOMI, no pharyngeal exudate, mucous membranes moist Chest: Clear to auscultation, no adventitious breath sounds, O2 sats are 96% on RA Cardiac: Regular rate and rhythm, no murmur, no JVD, normal peripheral pulses, good capillary refill Abdominal: NABS x 4 quadrants, soft, nondistended, nontender to palpation, no rebound or guarding Extremities: Normal inspection, no peripheral edema or erythema, calfs nontender to palpation Psych: Normal mood and affect Neuro: AAO x 3, strength intact bilaterally and rated 5/5, no motor deficits, speech is clear, no peripheral sensory deficits Discharge Data Allergies Allergy/AdvReac Type Severity Reaction Status Date / Time COVID-19 vaccine, mRNA, AdvReac Unknown probable Verified 03/11/24 20:00 [id number], L reaction: [From [place] (PF)] throat swelling Consultations 03/25/24 11:36 ED Decision to Admit Stat Ordered Studies 03/25/24 12:26 CT chest diagnostic wo con Urgent Hospital Course (1) Acute hypoxemic respiratory failure due to COVID-19: This is an 83 y/o male with chronic HFpEF, nonobstructive CAD, chronic LBBB, HTN, dyslipidemia, recurrent atrial fibrillation, SSS s/p PPM, PE, chronic AC with Eliquis, NAHEED (has been CPAP noncompliant more recently), CKD (baseline creatinine around 1.7), multiple myeloma s/p treatment, hypothyroidism, immunoglobulin deficiency, and other history as outlined below who presented to the ED today with hypoxia. Pt dveloped upper respiratory symptoms six days ago and had a positive test for COVID (known exposure), completed five day course of molnupiravir. This morning, home health came and noted his pulseox was in the 80s on room air so he was referred to the ED for evaluation. - Admit to med telemetry - Continue supplemental O2 - wean as able - IV decadron given in the ED, again given today. Will switch to prednisone 40 mg x 3 more days to complete a 5d course of steroids - Pt declined remdesivir, completed the course of molnupiravir as outpt prior to hospitalization - CT chest (non-contrast) 1. A few scattered areas of interstitial thickening with patchy groundglass densities most pronounced within the periphery. This is similar to the prior study and suggests chronic change/scarring. This could be due to post bilateral pneumonitis. - CXR reviewed IMPRESSION: Cardiomegaly with mild central pulmonary vascular congestion. This has slightly improved. - VBG showed CO2 retention, baseline CR was 2.0. Initial procal was 0.02 so will hold antibiotics as clinical picture does not seem c/w bacterial infection - [employer] respiratory panel only positive for COVID-19 (2) Chronic heart failure with preserved ejection fraction (HFpEF): Chronic, stable, without acute exacerbation Continue torsemide but will need to monitor renal function as creatinine bumped from baseline today (3) Chronic atrial fibrillation: Chronic, stable Continue chronic anticoagulation with Eliquis, rate control with beta shannon (4) CKD (chronic kidney disease), stage III: Creatinine appears slightly elevated from baseline of 1.7. Slightly downtrended to 1.8 (5) ASCVD (arteriosclerotic cardiovascular disease): Chronic, stable Continue outpatient regimen (6) Hypertension: Chronic, stable Continue outpatient regimen - BPs in the ED have been in the 110s systolic, (7) Sleep apnea treated with continuous positive airway pressure (CPAP): Pt has been intermittently compliant with CPAP - had a follow-up with sleep medicine scheduled yesterday but was unable to attend appointment due to illness CPAP at while admitted, outpatient sleep medicine follow-up (8) Bladder calculi: Hx of such, follow up with [place] [facility] as scheduled. KUB to be performed as an outpatient as per their orders. Total Time Total Time Spent Total Time Spent (In Minutes): 35 Discharge Plan Discharge Items Patient Disposition: Home - Self-Care Reason For Visit: COVID WITH HYPOXIA Discharge Diagnosis: Covid-19 with hypoxia Condition on Discharge: Good Activity: Resume your previous activity Lifting: Gradually increase as tolerated Bathing: No limitations Exercise/Sports: Gradually increase as tolerated Weightbearing: Full weightbearing Non-emergency contact: Primary Care Provider Call non-emergency contact if: you have any medication questions, your symptoms worsen and your temperature is above 101 Follow-up/Referrals: Telma Jacobs CRNP [Primary Care Provider] - (Date & Time 03/31/2024 3:20 PM Provider Telma Jacobs CRNP Department [facility] ) Diet: Heart Healthy Addtl Attending Provider Instructions: You were admitted to [facility] due to shortness of breath and low oxygen on pulse oximeter reading and diagnosed with COVID-19 with acute hypoxia. During your stay here you were treated with supportive care, medications including steroids and supportive care for COVID-19 and your symptoms improved. You did not get an antiviral as inpatient during your hospital stay as you recently completed a course of antiviral therapy x 5 days as an outpatient with molnupiravir. Imaging studies which were completed include CXR and chest CT which showed findings consistent with inflammation in the lungs, but not infection (ie. not pneumonia.) You required supportive oxygen during the first day you were admitted but passed a 2-step oxygen test and did not need oxygen on discharge. Medications: Continue taking your home medications as prescribed New Prescriptions: Prednisone 40 mg daily x 3 more days for antiinflammatory effects startinng on 03/27, finish on 03/29. Appointments: Follow up with PCP within 1 week, an appointment has been requested for you. Pending Studies at Discharge: No Stand-Alone Forms: My [facility] [email or web address], Smoking Cessation Medications and DC Order Prescriptions: New prednisone 20 mg tablet 40 mg PO DAILY 3 Days Qty: 6 0RF Continued albuterol sulfate 90 mcg/actuation HFA aerosol inhaler 2 puff inhalation QID PRN (Reason: Shortness Of Breath Or Wheezing) acyclovir 400 mg tablet 400 mg PO BID terazosin 5 mg Capsule 5 mg PO HS atorvastatin 10 mg Tablet 5 mg PO QAM Rx Instructions: TAKE HALF A TABLET DAILY omeprazole 40 mg Capsule,Delayed Release(Dr/Ec) 40 mg PO HS allopurinol 300 mg Tablet 300 mg PO QAM cholecalciferol (vitamin D3) [Vitamin D3] 2,000 unit Capsule 2,000 unit PO QAM Rx Instructions: Unable to verify OTC meds at this date/time. magnesium oxide 400 mg magnesium capsule 400 mg PO BID Qty: 60 0RF potassium chloride 20 mEq tablet extended release 20 meq PO QAM cyanocobalamin (vitamin B-12) 1,000 mcg Tablet 1,000 mcg PO Q2D Rx Instructions: Unable to verify OTC meds at this date/time. triamcinolone acetonide 0.1 % cream 1 applic TOPICAL BID PRN (Reason: flare up) montelukast 10 mg tablet 10 mg PO QAM Eliquis 2.5 mg Tablet 2.5 mg PO BID Qty: 60 0RF diphenoxylate-atropine [Lomotil] 2.5-0.025 mg Tablet 1 tab PO QID PRN (Reason: Diarrhea) metoprolol succinate 50 mg tablet extended release 24 hr 50 mg PO BID levothyroxine 75 mcg tablet 75 mcg PO QAM lorazepam [Ativan] 0.5 mg tablet 0.25 mg PO DAILY PRN (Reason: anxiety) Qty: 10 0RF duloxetine 60 mg capsule,delayed release(DR/EC) 60 mg PO QAM trazodone 100 mg Tablet 100 mg PO HS torsemide 60 mg tablet 60 mg PO DAILY Qty: 30 0RF Discharge Orders: Discharge Order (Routine); Ordered 03/26/24 Ordered By: Meenu Estrada Admission Data Admit Date/Time: 03/25/24 12:26 Attending Provider: Jevon Hawkins Admit Provider: Shirin Bloom Primary Care Provider: Telma Jacobs Other Providers: Shirin Bloom
== END 2024-03-26 12:04 | disposition home or self-care (01) | DRG 177 ==
LOC: ED 10:16 → SUATTDRO 12:26 → EDINP 12:26 → 2N 15:56

== ENCOUNTER 2025-01-05 14:58 | Inpatient (IN) ==
[2025-01-05] MEDS: ACETAMINOPHEN 1,000 MG/100 ML VIAL IV STA (15:29)
--- NOTE | 2025-01-05 15:35 | XRay Report ---
XR chest 1V portable CLINICAL HISTORY: Sepsis COMPARISON STUDY: 03/25/2024 FINDINGS: Stable pacemaker. Stable cardiomegaly with increased pulmonary vascular congestion. Inspira tion is shallow. No lobar consolidation or pleural effusion seen. No pneumothorax. IMPRESSION: 1. Increased CHF. 2. Shallow inspiration limits evaluation of the lungs. No lobar pneumonia seen. ACT 112: Negative or not required by law. Electronically signed by: Raul Garcia M.D. 01/05/2025 3:33 PM
[2025-01-05 15:37] LABS: Base Excess VBG 4.0 mEq/L; HCO3 VBG 29 mmol/L; Oxygen Saturation VBG 88.9 %; PCO2 VBG 45 mmHg (38-50); PO2 VBG 55 mmHg; pH VBG 7.42 (7.36-7.41)
[2025-01-05 15:39] LABS: Hematocrit (blood only) 40.6 % (42.0-52.0); Hemoglobin 13.7 g/dl (14.0-18.0); Immature Granulocytes # (auto) 0.03 K/uL (0.01-0.20); Immature Granulocytes % (auto) 0.4 %; Mean Corpuscular Hemoglobin 29.7 pg (25.0-34.0); Mean Corpuscular Volume 88.1 fL (80.0-100.0); Platelet Count 161 K/uL (130-400); RDW Standard Deviation 43.4 fL (36.4-46.3); Red Blood Count 4.61 M/uL (4.70-6.10); White Blood Count 7.83 K/ul (4.8-10.8)
--- NOTE | 2025-01-05 15:42 | Electrocardiogram Report ---
Test Reason : Blood Pressure : */* mmHG Vent. Rate : 94 BPM Atrial Rate : * BPM P-R Int : * ms QRS Dur : 136 ms QT Int : 392 ms P-R-T Axes : * -47 115 degrees QTcB Int : 490 ms Atrial fibrillation with premature ventricular or aberrantly conducted complexes Left axis deviation Non-specific intra-ventricular conduction block Inferior infarct , age undetermined Anterolateral infarct , age undetermined Abnormal ECG When compared with ECG of 25-Mar-2024 10:23, Electronic ventricular pacemaker no longer present Confirmed by Kvng Cain ([id number]) on 01/05/2025 3:42:23 PM Referred By: Confirmed By: Kvng Cain
[2025-01-05 16:07] LABS: Alanine Aminotransferase 15.0 U/L (7-52); Alkaline Phosphatase 61.0 U/L (34-104); Anion Gap 9.0 (3-11); Bilirubin,Total 0.9 mg/dl (0.2-1.0); Blood Urea Nitrogen 29.0 mg/dl (6-23); Calcium 6.9 mg/dl (8.6-10.3); Carbon Dioxide 30.0 mmol/L (21-32); Chloride 100.0 mmol/L (98-107); Creatine Kinase 52.0 U/L (30-223); Creatinine Clr Calc Pharmacy 37.1 ml/min; Glucose 123.0 mg/dl (70-99(Fasting)); Magnesium 1.3 mg/dl (1.7-2.4); Potassium 4.0 mmol/L (3.5-5.1); Sodium 139.0 mmol/L (136-145); Total Protein 6.4 gm/dl (6.0-8.3)
[2025-01-05 16:26] LABS: Chlamydia pneumoniae PCR Not Detected (NotDetected); Coronavirus 229E PCR Not Detected (NotDetected); Coronavirus CoV-2 (COVID19)PCR Not Detected (NotDetected); Coronavirus HKU1 PCR Not Detected (NotDetected); Coronavirus NL63 PCR Not Detected (NotDetected); Coronavirus OC43PCR Not Detected (NotDetected); Human Metapneumovirus PCR Not Detected (NotDetected); Parainfluenza Virus 1 PCR Not Detected (NotDetected); Parainfluenza Virus 2 PCR Not Detected (NotDetected); Parainfluenza Virus 3 PCR Not Detected (NotDetected); Parainfluenza Virus 4 PCR Not Detected (NotDetected); Respiratory Syncytial VirusPCR Not Detected (NotDetected); Rhinovirus/Enterovirus PCR Not Detected (NotDetected)
[2025-01-05] MEDS: SODIUM CHLORIDE 0.9% 500 ML IV ONE (16:32)
[2025-01-05] MEDS: CALCIUM GLUCONATE 1,000 MG/60 ML BAG IV STA (16:38)
[2025-01-05] MEDS: MAGNESIUM SULFATE / D5W 1 GM/100 ML BAG IV SCH (16:38)
[2025-01-05] MEDS: CEFEPIME 2000MG 2,000 MG/20 ML SYR IV STA (16:38)
[2025-01-05 16:43] LABS: Appearance Urine Clear (Clear); Bacteria Urine Automated None Seen (None Seen); Cast Urine Automated 0-2 /lpf (0-2); Epithelial Cell Urine Auto 0-2 /hpf (0-2); Glucose Urine UA Negative (Negative); RBC Urine Automated 0-2 /hpf (0-2); WBC Urine Automated 0-5 /hpf (0-5)
--- NOTE | 2025-01-05 17:09 | CT Scan Report ---
CT head without contrast History: AMS Comparison: 12/29/2023 Technique: Using multidetector thin collimation helical acquisition technique, axial, coronal and sagittal CT images from the skull base to the vertex were obtained without intravenous contrast. Dose reduction techniques were achieved by using automatic exposure control and/or adjustment of mA and/or kV according to patient size and/or use of iterative reconstruction technique. Findings: No intracranial hemorrhage, mass-effect, or midline shift. The ventricles are proportionate to the cerebral sulci. The sullivan to white matter differentiation of the cerebral hemispheres is preserved. The basal cisterns are patent. The visualized paranasal sinuses are clear. Mastoid air cells are clear. Right suboccipital craniectomy change. Small area of encephalomalacia at the inferior right cerebellum. Impression: No acute intracranial pathology. Electronically signed by Wade Parker 01-05-2025 5:09 PM
--- NOTE | 2025-01-05 17:17 | Emergency Department Note ---
History of Present Illness General Chief complaint: Shortness of Breath/Dyspnea Time Seen by Provider: 01/05/25 15:06 History of Present Illness Provider complaint: Shortness of breath 84-year-old male presents emergency department for shortness of breath. Reportedly the patient was in his car and around 1230 he started developing extreme shortness of breath. This occurred after getting IVIG treatment for cancer. Patient was very confused. He is brought to the emergency department. No recent falls or traumas. Home Medications Medication Instructions Recorded Confirmed Type allopurinol 300 mg tablet 300 mg PO QAM 04/30/18 01/05/25 History omeprazole 40 mg capsule,delayed 40 mg PO DAILYBB 04/30/18 01/05/25 History release montelukast 10 mg tablet 10 mg PO QAM 05/07/21 01/05/25 History diphenoxylate-atropine 2.5 1 tab PO QID PRN Diarrhea 07/10/22 01/05/25 History mg-0.025 mg tablet (Lomotil) cyanocobalamin (vitamin B-12) 1,000 mcg PO Q2D 01/23/23 01/05/25 History 1,000 mcg tablet triamcinolone acetonide 0.1 % 1 applic topical BID PRN flare up 01/23/23 01/05/25 History topical cream acyclovir 400 mg tablet 400 mg PO BID 03/28/23 01/05/25 History albuterol sulfate 90 mcg/actuation 2 puff inhalation QID PRN 03/28/23 01/05/25 History aerosol inhaler Shortness Of Breath Or Wheezing potassium chloride 20 mEq 40 meq PO QAM 10/10/23 01/05/25 History tablet,extended release levothyroxine 75 mcg tablet 75 mcg PO DAILYBB 12/08/23 01/05/25 History metoprolol succinate 50 mg 50 mg PO BID 12/08/23 01/05/25 History tablet,extended release 24 hr duloxetine 60 mg capsule,delayed 60 mg PO QAM 03/11/24 01/05/25 History release trazodone 100 mg tablet 200 mg PO HS 03/11/24 01/05/25 History atorvastatin 10 mg tablet 5 mg PO QAM 11/17/24 01/05/25 History calcitriol 0.25 mcg capsule 0.25 mcg PO .COMPLEX #36 caps 12/22/24 01/05/25 Rx eplerenone 25 mg tablet 12.5 mg PO .COMPLEX 12/22/24 01/05/25 History terazosin 2 mg capsule 2 mg PO HS 12/22/24 01/05/25 History apixaban 2.5 mg tablet (Eliquis) 2.5 mg PO AMHS 01/05/25 01/05/25 History calcium citrate 250 mg PO AMHS 01/05/25 01/05/25 History duloxetine 30 mg capsule,delayed 30 mg PO QAM 01/05/25 01/05/25 History release magnesium oxide 400 mg PO AMHS 01/05/25 01/05/25 History torsemide 20 mg tablet 40 mg PO QAM 01/05/25 01/05/25 History Allergies Allergy/AdvReac Type Severity Reaction Status Date / Time colchicine AdvReac Unknown contraindicated Verified 01/05/25 16:09 due to kidney disease COVID-19 vaccine, mRNA, AdvReac Unknown probable Verified 12/22/24 14:09 [id number], L reaction: [From [place] (PF)] throat swelling Past Med/Surg History Problem List (Updated 01/05/25 @ 18:54 by Rickey Curran MD) Hypocalcemia (Acute) Hypomagnesemia (Acute) Hypoxia (Acute) Chronic heart failure with preserved ejection fraction (HFpEF) Acute hypoxemic respiratory failure due to COVID-19 Hypoxia (Acute) COVID-19 (Acute) Sleep apnea treated with continuous positive airway pressure (CPAP) Chronic atrial fibrillation Acute respiratory acidosis (Acute) Elevated brain natriuretic peptide (BNP) level (Acute) Pulmonary edema (Acute) Chronic retention of urine (Chronic) Multiple myeloma (Acute) Bladder calculi (Acute) Cardiac pacemaker in situ Monoclonal paraproteinemia Respiratory failure with hypoxia 07/15/21 Anemia (Acute) History of pulmonary embolism Pleural effusion, left 05/07/21 Pericardial effusion 05/07/21 Monoclonal B-cell lymphocytosis Atrial fibrillation BPH (benign prostatic hyperplasia) Morbid (severe) obesity due to excess calories CKD (chronic kidney disease), stage III ASCVD (arteriosclerotic cardiovascular disease) (Chronic) cardiac cath 2009 - non obstructive disease Osteoarthrosis (Chronic) Hypertension Major depression (Chronic) Obstructive sleep apnea on CPAP Insomnia (Chronic) Medical History Poor historian pt with periods of confusion, daughter Shady completed PAT interview - unaware of dates or many details of surgical history Hx of respiratory failure Osteoarthritis LBBB (left bundle branch block) Hypertension CKD (chronic kidney disease), stage III Chronic retention of urine Cardiac pacemaker in situ Bladder calculi History of anemia Hx of gout Sleep apnea cpap Chronic diarrhea Anxiety and depression Multiple myeloma (2018) current chemo tx monthly- IgG History of pulmonary embolism History of DVT (deep vein thrombosis) Pneumonia due to COVID-19 virus hx Atrial fibrillation with rapid ventricular response (05/2021) hx cardioversion [id number] placed jun 2021 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 HX GERD (gastroesophageal reflux disease) BPH without obstruction/lower urinary tract symptoms Carpal tunnel syndrome Restless leg syndrome Surgical History History of cystoscopy (12/14/23) wtih fulguration of prostate History of surgery (07/2019) Pleurx Catheter History of cardiac cath (2009) ? 2009 - unable to verify - no known hx stent(s)- unsure why History of revision of total knee arthroplasty x 4-5 additional surgeries ? side...d/t infection History of pacemaker (06/2021) ? type- checked January 07, 2024- follows with Patricia (11/19/23) History of thoracentesis (07/2019) No bacterial growth or malignancy Pleurx catheter placed July 2019. Removed September 2019 History of appendectomy (05/2019) History of esophagogastroduodenoscopy (EGD) (07/2022) History of colonoscopy (07/2022) History of tooth extraction ?date History of cataract surgery R/L - ?date History of total right hip arthroplasty x 2, left and right, ? date H/O sinus surgery unknown History of bilateral knee arthroplasty unk date Hx of cholecystectomy ? 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 Required: No Beliefs That Will Affect Care: None marital status: Current Living Situation: Spouse and Family Current Living Situation Comment: lives with and daughter How many Children do You have: 2 Feels Safe at Home: Yes Assistive Devices: Walker Physical Exam Vital Signs Vital Signs - 24 hr 01/05/25 14:58 01/05/25 15:15 01/05/25 15:22 Temperature 38.2 C H Temperature Source Oral Pulse Rate 107 H 104 H Pulse Rate [Apical] Pulse Rate from SpO2 Sensor 101 H Respiratory Rate 20 38 H Respiratory Effort / Characteristics Blood Pressure 114/73 107/67 Blood Pressure [Left Arm] Blood Pressure Mean 86 80 Blood Pressure Mean [Left Arm] Blood Pressure Position Semi-fowlers Pulse Oximetry 95 90 Oxygen Delivery Method Room Air Room Air Oxygen Flow Rate Sepsis Recent Fever Within 48 Hours Yes Sepsis New/Unexplained Change in Mental Status Yes Sepsis Action Taken by Nursing Physician Notified 01/05/25 15:25 01/05/25 15:26 01/05/25 15:32 Temperature Temperature Source Pulse Rate 94 H Pulse Rate [Apical] 100 H Pulse Rate from SpO2 Sensor 96 H Respiratory Rate 36 H 28 H Respiratory Effort / Characteristics Short of Breath Blood Pressure 114/77 Blood Pressure [Left Arm] 114/77 Blood Pressure Mean 89 Blood Pressure Mean [Left Arm] 89 Blood Pressure Position Pulse Oximetry 97 94 Oxygen Delivery Method Nasal Cannula Nasal Cannula Oxygen Flow Rate 2 2 Sepsis Recent Fever Within 48 Hours Sepsis New/Unexplained Change in Mental Status Sepsis Action Taken by Nursing 01/05/25 15:40 01/05/25 15:45 01/05/25 15:49 Temperature Temperature Source Pulse Rate 102 H Pulse Rate [Apical] Pulse Rate from SpO2 Sensor Respiratory Rate Respiratory Effort / Characteristics Blood Pressure 105/75 Blood Pressure [Left Arm] Blood Pressure Mean 80 Blood Pressure Mean [Left Arm] Blood Pressure Position Pulse Oximetry 86 L Oxygen Delivery Method Room Air Oxygen Flow Rate Sepsis Recent Fever Within 48 Hours Sepsis New/Unexplained Change in Mental Status Sepsis Action Taken by Nursing 01/05/25 16:17 01/05/25 16:17 01/05/25 16:30 Temperature Temperature Source Pulse Rate 91 H 99 H 94 H Pulse Rate [Apical] Pulse Rate from SpO2 Sensor Respiratory Rate 21 29 H 36 H Respiratory Effort / Characteristics Blood Pressure 92/65 L 92/65 L 100/57 L Blood Pressure [Left Arm] Blood Pressure Mean 82 82 59 Blood Pressure Mean [Left Arm] Blood Pressure Position Pulse Oximetry 96 93 95 Oxygen Delivery Method Nasal Cannula Oxygen Flow Rate 2 Sepsis Recent Fever Within 48 Hours Sepsis New/Unexplained Change in Mental Status Sepsis Action Taken by Nursing 01/05/25 16:47 01/05/25 16:56 01/05/25 17:27 Temperature Temperature Source Pulse Rate 95 H 91 H 95 H Pulse Rate [Apical] Pulse Rate from SpO2 Sensor 88 85 91 H Respiratory Rate 20 32 H 19 Respiratory Effort / Characteristics Blood Pressure 100/61 97/65 L 100/68 Blood Pressure [Left Arm] Blood Pressure Mean 74 75 78 Blood Pressure Mean [Left Arm] Blood Pressure Position Pulse Oximetry 95 95 93 Oxygen Delivery Method Nasal Cannula Nasal Cannula Nasal Cannula Oxygen Flow Rate 2 2 2 Sepsis Recent Fever Within 48 Hours Sepsis New/Unexplained Change in Mental Status Sepsis Action Taken by Nursing 01/05/25 17:45 01/05/25 17:50 01/05/25 18:00 Temperature 37.1 C Temperature Source Oral Pulse Rate 102 H 97 H Pulse Rate [Apical] Pulse Rate from SpO2 Sensor 92 H 88 Respiratory Rate 24 30 H Respiratory Effort / Characteristics Blood Pressure 98/70 L Blood Pressure [Left Arm] Blood Pressure Mean 79 Blood Pressure Mean [Left Arm] Blood Pressure Position Pulse Oximetry 93 96 Oxygen Delivery Method Nasal Cannula Nasal Cannula Oxygen Flow Rate 4 4 Sepsis Recent Fever Within 48 Hours Sepsis New/Unexplained Change in Mental Status Sepsis Action Taken by Nursing 01/05/25 18:15 01/05/25 18:24 01/05/25 18:33 Temperature Temperature Source Pulse Rate 92 H 87 Pulse Rate [Apical] Pulse Rate from SpO2 Sensor 84 95 H Respiratory Rate 26 H 21 Respiratory Effort / Characteristics Blood Pressure 95/72 L 94/64 L Blood Pressure [Left Arm] Blood Pressure Mean 76 74 Blood Pressure Mean [Left Arm] Blood Pressure Position Pulse Oximetry 95 95 Oxygen Delivery Method Nasal Cannula Nasal Cannula Oxygen Flow Rate 4 2 Sepsis Recent Fever Within 48 Hours Sepsis New/Unexplained Change in Mental Status Sepsis Action Taken by Nursing 01/05/25 18:42 Temperature Temperature Source Pulse Rate 91 H Pulse Rate [Apical] Pulse Rate from SpO2 Sensor 95 H Respiratory Rate 25 H Respiratory Effort / Characteristics Blood Pressure 106/70 Blood Pressure [Left Arm] Blood Pressure Mean 82 Blood Pressure Mean [Left Arm] Blood Pressure Position Pulse Oximetry 96 Oxygen Delivery Method Nasal Cannula Oxygen Flow Rate 2 Sepsis Recent Fever Within 48 Hours Sepsis New/Unexplained Change in Mental Status Sepsis Action Taken by Nursing Physical Exam HENT: Exam performed. - Head: Normocephalic and atraumatic. EYES: Conjunctivae and EOM are normal. Right eye exhibits no discharge. Left eye exhibits no discharge. No scleral icterus. NECK: Normal range of motion. Neck supple. No JVD present. CV: Tachycardic rate, irregular rhythm, normal heart sounds and intact distal pulses. There is no peripheral edema. Palpable radial pulses bue. PULM/CHEST: Rhonchi bilaterally. ABD: The abdomen is soft. There is no tenderness. NEURO: Patient is lethargic and slow to answer questions however is alert and oriented. Motor and sensation grossly intact. Course Course 1506: The patient was evaluated in room C10. A complete history and physical exam was performed Cardiac monitoring: An order was placed for continuous cardiac monitoring. The monitor shows a rate of 90 with atrial fibrilation rhythm interpreted by me Patient hypoxic and febrile. Supplemental oxygen was applied via nasal cannula. Sepsis protocols were initiated. 1745: Vital signs stable on supplemental oxygen. Patient's initial lactic acid was 2.2. Patient does has a history of CHF and chest x-ray is concerning for fluid overload. Patient was given 500 cc bolus given his history of CHF and chest x-ray findings. Blood pressure normalized. Cefepime given empirically for any chance of infection. White blood cell count hemoglobin VBG procalcitonin are unremarkable. Magnesium 1.3 calcium 6.9. Calcium and magnesium repletion started in the emergency department. Patient will be admitted to the [facility] team given his hypoxia and electrolyte abnormalities. Administered Medications Discontinued Medications Acetaminophen (Ofirmev) 1,000 mg in 100 mls @ 400 mls/hr IV NOW STA Stop: 01/05/25 15:25 Last Infusion: 01/05/25 15:53 Dose: Infused Documented By: Admin: 01/05/25 15:29 Dose: 400 mls/hr Documented By: KANA Sodium Chloride (Nss) 500 mls @ 999 mls/hr IV .Q31M ONE Stop: 01/05/25 16:56 Last Infusion: 01/05/25 17:31 Dose: Infused Documented By: Admin: 01/05/25 16:32 Dose: 999 mls/hr Documented By: KETURAH Calcium Gluconate () 1,000 mg in 60 mls @ 240 mls/hr IV NOW STA Stop: 01/05/25 16:44 Last Infusion: 01/05/25 17:30 Dose: Infused Documented By: Admin: 01/05/25 16:38 Dose: 240 mls/hr Documented By: KANA Magnesium Sulfate/Dextrose (Magnesium Sulfate / D5w) 1 gm in 100 mls @ 100 mls/hr IV Q1H VINCENT Stop: 01/05/25 18:29 Last Admin: 01/05/25 17:42 Dose: 100 mls/hr Documented By: Infusion: 01/05/25 17:38 Dose: Infused Documented By: Admin: 01/05/25 16:38 Dose: 100 mls/hr Documented By: KANA Cefepime HCl (Maxipime 2000mg) 2,000 mg in 20 mls @ 5 mls/min IV NOW STA; Protocol Stop: 01/05/25 16:33 Last Admin: 01/05/25 16:38 Dose: 5 mls/min Documented By: KANA Critical Care Time Critical Care Time: Yes Total Critical Care Time: 48 I have personally spent greater than 48 minutes of critical care time in the direct management of this patient. This includes bedside care, interpretation of diagnostic studies, and testing, discussion with consultants, patient, and family members, and other required patient management activities. This 48 minutes is in excess of all separately billable procedures. Medical Decision Making Laboratory Data Attestation: I reviewed the patient's lab results. 01/05/25 15:22 01/05/25 15:22 Lab Results 01/05/25 01/05/25 01/05/25 Range/Units 15:22 15:37 15:39 WBC 7.83 (4.8-10.8) K/ul RBC 4.61 L (4.70-6.10) M/uL Hgb 13.7 L (14.0-18.0) g/dl POC Hgb 13.6 L (14.0-18.0) g/dl Hct 40.6 L (42.0-52.0) % POC Hct 40 L (42-52) % MCV 88.1 (80.0-100.0) fL MCH 29.7 (25.0-34.0) pg MCHC 33.7 (32.0-36.0) g/dL RDW Std Deviation 43.4 (36.4-46.3) fL RDW Coeff of Nunu 13.6 (11.5-14.5) % Plt Count 161 (130-400) K/uL MPV 11.1 (9.4-12.4) fL Immature Gran % (Auto) 0.4 % Neut % (Auto) 83.6 % Lymph % (Auto) 12.6 % Hamblen % (Auto) 2.2 % Eos % (Auto) 0.8 % Baso % (Auto) 0.4 % Neut # (Auto) 6.55 H (1.40-6.50) K/uL Lymph # (Auto) 0.99 L (1.20-3.40) K/uL Hamblen # (Auto) 0.17 (0.11-0.59) K/uL Eos # (Auto) 0.06 (0.00-0.50) K/uL Baso # (Auto) 0.03 (0.00-0.20) K/uL Immature Gran # (Auto) 0.03 (0.01-0.20) K/uL PT Cancelled INR Cancelled APTT Cancelled PTT Ratio Cancelled VBG pH 7.42 H (7.36-7.41) VBG pCO2 45 (38-50) mmHg VBG pO2 55 mmHg VBG HCO3 29 mmol/L VBG O2 Saturation 88.9 % VBG Base Excess 4.0 mEq/L Carboxyhemoglobin 2.0 % THgb POC Sodium 138 (135-144) mmol/L Sodium 139 (136-145) mmol/L POC Potassium 4.6 (3.3-5.0) mmol/L Potassium 4.0 (3.5-5.1) mmol/L POC Chloride 99 L (101-112) mmol/L Chloride 100 (98-107) mmol/L Carbon Dioxide 30 (21-32) mmol/L POC Total CO2 30 (24-31) mmol/L Anion Gap 9 (3-11) POC Anion Gap 14.0 L (16-25) mmol/L POC BUN 41 H (7-18) mg/dl BUN 29 H (6-23) mg/dl Creatinine 1.97 H (0.6-1.4) mg/dl POC Creatinine 2.1 H (0.6-1.3) mg/dl Est Cr Clr Drug Dosing 37.1 ml/min eGFR 32.90 BUN/Creatinine Ratio 14.7 (10-20) Glucose 123 H (70-99(Fasting)) mg/dl POC Glucose (other) 127 H (70-99) mg/dl Lactate 2.2 H* (0.4-2.0) mmol/L Calcium 6.9 L (8.6-10.3) mg/dl POC Ioniz Calcium Frances 0.85 L (1.12-1.32) mmol/l Magnesium 1.3 L (1.7-2.4) mg/dl Total Bilirubin 0.9 (0.2-1.0) mg/dl Direct Bilirubin 0.1 (0-0.2) mg/dl AST 20 (13-39) U/L ALT 15 (7-52) U/L Alkaline Phosphatase 61 (34-104) U/L Total Creatine Kinase 52 (30-223) U/L Troponin I High Sens 7.6 (0-20) pg/ml B-Natriuretic Peptide 71 (0-100) pg/ml Total Protein 6.4 (6.0-8.3) gm/dl Albumin 3.6 (3.4-5.0) gm/dl Procalcitonin 0.28 (0-0.5) ng/ml Urine Color Urine Appearance (Clear) Urine pH (4.5-7.5) Ur Specific [place] (1.000-1.030) Urine Protein (Negative) Urine Glucose (UA) (Negative) Urine Ketones (Negative) Urine Blood (Negative) Urine Nitrite (Negative) Urine Bilirubin (Negative) Urine Urobilinogen (Negative) Ur Leukocyte Esterase (Negative) Urine WBC (Auto) (0-5) /hpf Urine RBC (Auto) (0-2) /hpf U Hyaline Cast (Auto) (0-2) /lpf U Epithel Cells (Auto) (0-2) /hpf Urine Bacteria (Auto) (None Seen) Urine Comment Adenovirus (PCR) Not Detected (NotDetected) B. pertussis DNA (PCR) Not Detected (NotDetected) B.parapertussis DNA PCR Not Detected (NotDetected) C. pneumoniae DNA (PCR) Not Detected (NotDetected) Coronavirus OC43 (PCR) Not Detected (NotDetected) Coronavirus HKU1 (PCR) Not Detected (NotDetected) Coronavirus 229E (PCR) Not Detected (NotDetected) SARS-CoV-2 (PCR) Not Detected (NotDetected) Coronavirus NL63 (PCR) Not Detected (NotDetected) Human Metapneumovir PCR Not Detected (NotDetected) Influenza Type A (PCR) Not Detected (NotDetected) Influenza Type B (PCR) Not Detected (NotDetected) M. pneumoniae (PCR) Not Detected (NotDetected) Parainfluenza 1 (PCR) Not Detected (NotDetected) Parainfluenza 2 (PCR) Not Detected (NotDetected) Parainfluenza 3 (PCR) Not Detected (NotDetected) Parainfluenza 4 (PCR) Not Detected (NotDetected) RSV (PCR) Not Detected (NotDetected) Entero/Rhino (PCR) Not Detected (NotDetected) 01/05/25 01/05/25 Range/Units 16:17 17:11 WBC (4.8-10.8) K/ul RBC (4.70-6.10) M/uL Hgb (14.0-18.0) g/dl POC Hgb (14.0-18.0) g/dl Hct (42.0-52.0) % POC Hct (42-52) % MCV (80.0-100.0) fL MCH (25.0-34.0) pg MCHC (32.0-36.0) g/dL RDW Std Deviation (36.4-46.3) fL RDW Coeff of Nunu (11.5-14.5) % Plt Count (130-400) K/uL MPV (9.4-12.4) fL Immature Gran % (Auto) % Neut % (Auto) % Lymph % (Auto) % Hamb[place] % (Auto) % Eos % (Auto) % Baso % (Auto) % Neut # (Auto) (1.40-6.50) K/uL Lymph # (Auto) (1.20-3.40) K/uL Hamblen # (Auto) (0.11-0.59) K/uL Eos # (Auto) (0.00-0.50) K/uL Baso # (Auto) (0.00-0.20) K/uL Immature Gran # (Auto) (0.01-0.20) K/uL PT 11.2 INR 1.0 APTT 23 PTT Ratio 0.9 VBG pH (7.36-7.41) VBG pCO2 (38-50) mmHg VBG pO2 mmHg VBG HCO3 mmol/L VBG O2 Saturation % VBG Base Excess mEq/L Carboxyhemoglobin % THgb POC Sodium (135-144) mmol/L Sodium (136-145) mmol/L POC Potassium (3.3-5.0) mmol/L Potassium (3.5-5.1) mmol/L POC Chloride (101-112) mmol/L Chloride (98-107) mmol/L Carbon Dioxide (21-32) mmol/L POC Total CO2 (24-31) mmol/L Anion Gap (3-11) POC Anion Gap (16-25) mmol/L POC BUN (7-18) mg/dl BUN (6-23) mg/dl Creatinine (0.6-1.4) mg/dl POC Creatinine (0.6-1.3) mg/dl Est Cr Clr Drug Dosing ml/min eGFR BUN/Creatinine Ratio (10-20) Glucose (70-99(Fasting)) mg/dl POC Glucose (other) (70-99) mg/dl Lactate 2.4 H* (0.4-2.0) mmol/L Calcium (8.6-10.3) mg/dl POC Ioniz Calcium Frances (1.12-1.32) mmol/l Magnesium (1.7-2.4) mg/dl Total Bilirubin (0.2-1.0) mg/dl Direct Bilirubin (0-0.2) mg/dl AST (13-39) U/L ALT (7-52) U/L Alkaline Phosphatase (34-104) U/L Total Creatine Kinase (30-223) U/L Troponin I High Sens (0-20) pg/ml B-Natriuretic Peptide (0-100) pg/ml Total Protein (6.0-8.3) gm/dl Albumin (3.4-5.0) gm/dl Procalcitonin (0-0.5) ng/ml Urine Color Yellow Urine Appearance Clear (Clear) Urine pH 5.5 (4.5-7.5) Ur Specific [place] 1.018 (1.000-1.030) Urine Protein Trace H (Negative) Urine Glucose (UA) Negative (Negative) Urine Ketones Trace H (Negative) Urine Blood Negative (Negative) Urine Nitrite Negative (Negative) Urine Bilirubin Negative (Negative) Urine Urobilinogen Negative (Negative) Ur Leukocyte Esterase Trace H (Negative) Urine WBC (Auto) 0-5 (0-5) /hpf Urine RBC (Auto) 0-2 (0-2) /hpf U Hyaline Cast (Auto) 0-2 (0-2) /lpf U Epithel Cells (Auto) 0-2 (0-2) /hpf Urine Bacteria (Auto) None Seen (None Seen) Urine Comment Adenovirus (PCR) (NotDetected) B. pertussis DNA (PCR) (NotDetected) B.parapertussis DNA PCR (NotDetected) C. pneumoniae DNA (PCR) (NotDetected) Coronavirus OC43 (PCR) (NotDetected) Coronavirus HKU1 (PCR) (NotDetected) Coronavirus 229E (PCR) (NotDetected) SARS-CoV-2 (PCR) (NotDetected) Coronavirus NL63 (PCR) (NotDetected) Human Metapneumovir PCR (NotDetected) Influenza Type A (PCR) (NotDetected) Influenza Type B (PCR) (NotDetected) M. pneumoniae (PCR) (NotDetected) Parainfluenza 1 (PCR) (NotDetected) Parainfluenza 2 (PCR) (NotDetected) Parainfluenza 3 (PCR) (NotDetected) Parainfluenza 4 (PCR) (NotDetected) RSV (PCR) (NotDetected) Entero/Rhino (PCR) (NotDetected) Imaging Data Attestation: I personally reviewed and interpreted this imaging study as follows: My Impression: Chest x-ray: Pulmonary edema Radiologist's Impression: Chest X-Ray 01/05/25 15:11 XR chest 1V portable CLINICAL HISTORY: Sepsis COMPARISON STUDY: 03/25/2024 FINDINGS: Stable pacemaker. Stable cardiomegaly with increased pulmonary vascular congestion. Inspiration is shallow. No lobar consolidation or pleural effusion seen. No pneumothorax. IMPRESSION: 1. Increased CHF. 2. Shallow inspiration limits evaluation of the lungs. No lobar pneumonia seen. ACT 112: Negative or not required by law. Electronically signed by: Raul Garcia M.D. 01/05/2025 3:[address] 01/05/25 15:12 CT head without contrast History: AMS Comparison: 12/29/2023 Technique: Using multidetector thin collimation helical acquisition technique, axial, coronal and sagittal CT images from the skull base to the vertex were obtained without intravenous contrast. Dose reduction techniques were achieved by using automatic exposure control and/or adjustment of mA and/or kV according to patient size and/or use of iterative reconstruction technique. Findings: No intracranial hemorrhage, mass-effect, or midline shift. The ventricles are proportionate to the cerebral sulci. The sullivan to white matter differentiation of the cerebral hemispheres is preserved. The basal cisterns are patent. The visualized paranasal sinuses are clear. Mastoid air cells are clear. Right suboccipital craniectomy change. Small area of encephalomalacia at the inferior right cerebellum. Impression: No acute intracranial pathology. Electronically signed by Wade Parker 01-05-2025 5:09 PM Abdomen/Pelvis CT 01/05/25 15:40 Clinical History: Abdominal pain Technique: Axial computed tomography images were obtained of the abdomen and pelvis without intravenous contrast. Comparison is made to the prior CT dated 12/27/2023 Findings: The liver is overall of normal size, attenuation, and contour with no sign of cirrhosis or significant fatty infiltration. No definite liver mass lesion is seen on this noncontrast study. The gallbladder has been removed. No bile duct dilatation is noted. The spleen is mildly enlarged measuring 14.1 cm. No focal splenic lesion is evident. The pancreas appears normal with no sign of acute or chronic pancreatitis and no mass lesion noted. The pancreatic duct is of normal caliber. The adrenal glands appear unremarkable. No renal or proximal ureteral calculi are seen. There is no hydronephrosis or perinephric stranding. There is an unchanged 1.9 cm hyperdense lesion in the mid left kidney The aorta is of normal caliber. No abdominal adenopathy is seen. The stomach appears normal. There is no sign of small bowel obstruction. The colon appears unremarkable. The appendix appears to have been removed. No free intraperitoneal fluid or air is identified. No distal ureteral or bladder calculi are seen. There is a small 1.3 cm diverticulum of the left aspect of the urinary bladder. The iliac arteries are of normal caliber. No pelvic adenopathy is noted. The prostate is mildly enlarged measuring 4.5 cm There is mild subsegmental atelectasis in the lung bases. Pacemaker leads are present. There is coronary arthrosclerosis There are bilateral hip replacements, resulting in surrounding artifact. There is lumbar scoliosis and degenerative disc disease. No fracture is identified. No focal osseous lesion is seen Impression: 1. Unchanged hyperdense left renal lesion, likely a proteinaceous or hemorrhagic cyst 2. Mild splenomegaly 3. Small bladder diverticulum 4. Enlarged prostate. Correlation with PSA levels may be useful ACT 112: Positive. There are findings on this exam that require communication between the performing entity and the patient following Patient Test Result Information Act ([place] ACT 112) guidelines. Electronically signed by Gregg Eduardo 01-05-2025 5:35 PM ECG Data Attestation: I personally reviewed and interpreted this ECG as follows: Rate (beats per minute): 94 Rhythm: + atrial fibrillation ECG Intervals/blocks: + Normal QT-c ECG ST segments: + Normal ST segments Additional Comments: QRS 136 MDM Narrative 1506: The patient was evaluated in room C10. A complete history and physical exam was performed Cardiac monitoring: An order was placed for continuous cardiac monitoring. The monitor shows a rate of 90 with atrial fibrilation rhythm interpreted by me Patient hypoxic and febrile. Supplemental oxygen was applied via nasal cannula. Sepsis protocols were initiated. 174: Vital signs stable on supplemental oxygen. Patient's initial lactic acid was 2.2. Patient does has a history of CHF and chest x-ray is concerning for fluid overload. Patient was given 500 cc bolus given his history of CHF and chest x-ray findings. Blood pressure normalized. Cefepime given empirically for any chance of infection. White blood cell count hemoglobin VBG procalcitonin are unremarkable. Magnesium 1.3 calcium 6.9. Calcium and magnesium repletion started in the emergency department. Patient will be admitted to the [facility] hospitalist team given his hypoxia and electrolyte abnormalities. Impression & Plan Hypoxia, Hypomagnesemia, Hypocalcemia Discharge Plan Visit Data Chief Complaint: Shortness of Breath/Dyspnea ED Provider: Rickey Curran Discharge Problem: Hypoxia, Hypomagnesemia, Hypocalcemia Patient Disposition: Admitted As Inpatient Condition: Serious Forms Stand Alone Forms: My [facility] Prescriptions Prescriptions: No Action albuterol sulfate 90 mcg/actuation HFA aerosol inhaler 2 puff inhalation QID PRN (Reason: Shortness Of Breath Or Wheezing) acyclovir 400 mg tablet 400 mg PO BID terazosin 2 mg capsule 2 mg PO HS eplerenone 25 mg tablet 12.5 mg PO .COMPLEX Rx Instructions: 12.5 mg orally; Take on Fri/Fri/Fri calcitriol 0.25 mcg capsule 0.25 mcg PO .COMPLEX Qty: 36 2RF Rx Instructions: 0.25 mcg orally every friday, friday, and friday; omeprazole 40 mg Capsule,Delayed Release(Dr/Ec) 40 mg PO DAILYBB allopurinol 300 mg Tablet 300 mg PO QAM atorvastatin 10 mg tablet 5 mg PO QAM Rx Instructions: TAKE HALF A TABLET DAILY potassium chloride 20 mEq tablet extended release 40 meq PO QAM Rx Instructions: take 2 tablet dose cyanocobalamin (vitamin B-12) 1,000 mcg Tablet 1,000 mcg PO Q2D triamcinolone acetonide 0.1 % cream 1 applic TOPICAL BID PRN (Reason: flare up) montelukast 10 mg tablet 10 mg PO QAM diphenoxylate-atropine [Lomotil] 2.5-0.025 mg Tablet 1 tab PO QID PRN (Reason: Diarrhea) metoprolol succinate 50 mg tablet extended release 24 hr 50 mg PO BID levothyroxine 75 mcg tablet 75 mcg PO DAILYBB duloxetine 60 mg capsule,delayed release(DR/EC) 60 mg PO QAM trazodone 100 mg Tablet 200 mg PO HS torsemide 20 mg tablet 40 mg PO QAM magnesium oxide 400 mg magnesium capsule 400 mg PO AMHS duloxetine 30 mg capsule,delayed release(DR/EC) 30 mg PO QAM Eliquis 2.5 mg tablet 2.5 mg PO AMHS calcium citrate 250 mg calcium tablet 250 mg PO AMHS Referrals Referrals: Telma Jacobs CRNP [Primary Care Provider] -
--- NOTE | 2025-01-05 17:36 | CT Scan Report ---
Clinical History: Abdominal pain Technique: Axial computed tomography images were obtained of the abdomen and pelvis without intravenous contrast. Comparison is made to the prior CT dated 12/27/2023 Findings: The liver is overall of normal size, attenuation, and contour with no sign of cirrhosis or significant fatty infiltration. No definite liver mass lesion is seen on this noncontrast study. The gallbladder has been removed. No bile duct dilatation is noted. The spleen is mildly enlarged measuring 14.1 cm. No focal splenic lesion is evident. The pancreas appears normal with no sign of acute or chronic pancreatitis and no mass lesion noted. The pancreatic duct is of normal caliber. The adrenal glands appear unremarkable. No renal or proximal ureteral calculi are seen. There is no hydronephrosis or perinephric stranding. There is an unchanged 1.9 cm hyperdense lesion in the mid left kidney The aorta is of normal caliber. No abdominal adenopathy is seen. The stomach appears normal. There is no sign of small bowel obstruction. The colon appears unremarkable. The appendix appears to have been removed. No free intraperitoneal fluid or air is identified. No distal ureteral or bladder calculi are seen. There is a small 1.3 cm diverticulum of the left aspect of the urinary bladder. The iliac arteries are of normal caliber. No pelvic adenopathy is noted. The prostate is mildly enlarged measuring 4.5 cm There is mild subsegmental atelectasis in the lung bases. Pacemaker leads are present. There is coronary arthrosclerosis There are bilateral hip replacements, resulting in surrounding artifact. There is lumbar scoliosis and degenerative disc disease. No fracture is identified. No focal osseous lesion is seen Impression: 1. Unchanged hyperdense left renal lesion, likely a proteinaceous or hemorrhagic cyst 2. Mild splenomegaly 3. Small bladder diverticulum 4. Enlarged prostate. Correlation with PSA levels may be useful ACT 112: Positive. There are findings on this exam that require communication between the performing entity and the patient following Patient Test Result Information Act ([place] ACT 112) guidelines. Electronically signed by Gregg Eduardo 01-05-2025 5:35 PM
[2025-01-05 17:54] LABS: INR 1.0 (0.9-1.1); Partial Thromboplastin Time 23 Seconds (21-31); Prothrombin Time 11.2 Seconds (9.0-12.0)
--- NOTE | 2025-01-05 18:16 | History & Physical Report ---
Date of Service January 05, 2025 Assessment & Plan (1) Hypoxia: (2) Dyspnea: (3) Hypomagnesemia: Plan Corwin is a 84-year-old man with extensive past medical history including chronic diastolic heart failure, nonobstructive CAD, chronic LBBB, hypertension, hyperlipidemia, atrial fibrillation, sick sinus syndrome s/p permanent pacemaker, history of PE on Eliquis, NAHEED (noncompliant with CPAP), CKD, chronic anemia, multiple myeloma s/p treatment, hypothyroidism, prediabetes, immunogl obulin deficiency, GERD, restless legs, mood disorder, history of recurrent C. difficile. He presented with acute onset of dyspnea and hypoxia he presented with acute onset of dyspnea and hypoxia after IVIG infusion. This was his 16th IVIG infusion and he has not had an adverse reaction previously. He was in his usual state of health up until about 30-60 minutes following his infusion. He was admitted for hypoxia and and further monitoring. #Hypoxia/dyspneasuspect this is secondary to a transient IVIG infusion reaction. No infectious signs or symptoms or recent sick contacts. - CXR did note increased CHF. BNP was normal at 71. No leukocytosis. Lactate elevated at 2.4 but procalcitonin normal at 0.28. CRP is pending - Wean supplemental oxygen as able to maintain O2 sat > 90% - If this is IVIG related, would anticipate improvement without significant intervention - Mild fever on presentation to ED at 100.8 F, now afebrile. Tylenol available as needed for fever/pain #Hypomagnesemia - Mag low at 1.3. Repleted with 1 g IV mag x 2 - Repeat mag with a.m. labs #Permanent A-fib/HFpEF/CAD/hypertension - Cautious use of IV fluids given heart failure history and increased heart failure noted on admission CXR - Otherwise continue usual regimen #CKD stage IIIcreatinine at baseline. Avoid nephrotoxic agents when possible #OSACPAP at bedtime Dispo: Med telemetry VTE PPx: Eliquis CODE STATUS: Full code Updated patient's and daughter at bedside History of Present Illness Chief Complaint: Shortness of breath/dyspnea Primary Care Provider: ASHER Eddy Corwin is a 84-year-old man with extensive past medical history including chronic diastolic heart failure, nonobstructive CAD, chronic LBBB, hypertension, hyperlipidemia, atrial fibrillation, sick sinus syndrome s/p permanent pacemaker, history of PE on Eliquis, NAHEED (noncompliant with CPAP), CKD, chronic anemia, multiple myeloma s/p treatment, hypothyroidism, prediabetes, immunoglobulin deficiency, GERD, restless legs, mood disorder, history of recurrent C. difficile. He presented from home via EMS with dyspnea and altered mental status. At the time of my exam, the patient was lying in bed in no acute distress with his and daughter present at bedside. He states he was in his normal state of health the past few days and this morning. He had an IVIG infusion today and initially tolerated this well. His daughter was driving him home from his infusion and stopped at the grocery store, Corwin remained in t he car. He went his daughter returned, she found Corwin extremely dyspneic, diaphoretic, and somewhat altered. He remained in the state upon returning home and family called for EMS. He was found to be hypoxic upon arrival to the ED and was placed on supplemental O2. He reports feeling much better at time of admission. Patient reports that he took all of his regular morning medications today.only recent medication change was clearance starting calcitriol on 12/31. This was his 16th IVIG infusion and he has never experienced a reaction to prior infusions. He does not use supplemental oxygen at baseline, aside from CPAP at night. Vitals on admission significant for hypoxia at 86% on room air now improved to 96% on 2L NC, intermittent tachypnea, mild tachycardia in [id number], and low- grade fever at 100.8 F; vitals otherwise stable. Labs on admission are significant for elevated lactate at 2.4, hypomagnesemia at 1.3. BNP normal at 71, procalcitonin WNL at 0.28, UA negative, respiratory panel negative. CXR on admission reveals increased CHF. Head CT with no acute intracranial pathology. CT A/P overall unremarkable. We discussed code status, patient wishes to be a full code. Allergies Allergy/AdvReac Type Severity Reaction Status Date / Time colchicine AdvReac Unknown contraindicated Verified 01/05/25 16:09 due to kidney disease COVID-19 vaccine, mRNA, AdvReac Unknown probable Verified 12/22/24 14:09 [id number], L reaction: [From [place] ([facility])] throat swelling Home Medications Medication Instructions Recorded Confirmed Type allopurinol 300 mg tablet 300 mg PO QAM 04/30/18 01/05/25 History omeprazole 40 mg capsule,delayed 40 mg PO DAILYBB 04/30/18 01/05/25 History release montelukast 10 mg tablet 10 mg PO QAM 05/07/21 01/05/25 History diphenoxylate-atropine 2.5 1 tab PO QID PRN Diarrhea 07/10/22 01/05/25 History mg-0.025 mg tablet (Lomotil) cyanocobalamin (vitamin B-12) 1,000 mcg PO Q2D 01/23/23 01/05/25 History 1,000 mcg tablet triamcinolone acetonide 0.1 % 1 applic topical BID PRN flare up 01/23/23 01/05/25 History topical cream acyclovir 400 mg tablet 400 mg PO BID 03/28/23 01/05/25 History albuterol sulfate 90 mcg/actuation 2 puff inhalation QID PRN 03/28/23 01/05/25 History aerosol inhaler Shortness Of Breath Or Wheezing potassium chloride 20 mEq 40 meq PO QAM 10/10/23 01/05/25 History tablet,extended release levothyroxine 75 mcg tablet 75 mcg PO DAILYBB 12/08/23 01/05/25 History metoprolol succinate 50 mg 50 mg PO BID 12/08/23 01/05/25 History tablet,extended release 24 hr duloxetine 60 mg capsule,delayed 60 mg PO QAM 03/11/24 01/05/25 History release trazodone 100 mg tablet 200 mg PO HS 03/11/24 01/05/25 History atorvastatin 10 mg tablet 5 mg PO QAM 11/17/24 01/05/25 History calcitriol 0.25 mcg capsule 0.25 mcg PO .COMPLEX #36 caps 12/22/24 01/05/25 Rx eplerenone 25 mg tablet 12.5 mg PO .COMPLEX 12/22/24 01/05/25 History terazosin 2 mg capsule 2 mg PO HS 12/22/24 01/05/25 History apixaban 2.5 mg tablet (Eliquis) 2.5 mg PO AMHS 01/05/25 01/05/25 History calcium citrate 250 mg PO AMHS 01/05/25 01/05/25 History duloxetine 30 mg capsule,delayed 30 mg PO QAM 01/05/25 01/05/25 History release magnesium oxide 400 mg PO AMHS 01/05/25 01/05/25 History torsemide 20 mg tablet 40 mg PO QAM 01/05/25 01/05/25 History Past Med/Surg History Problem List (Updated 01/05/25 @ 19:14 by Diana Warner PA-C) Dyspnea Hypocalcemia (Acute) Hypomagnesemia (Acute) Hypoxia (Acute) Chronic heart failure with preserved ejection fraction (HFpEF) Acute hypoxemic respiratory failure due to COVID-19 Hypoxia (Acute) COVID-19 (Acute) Sleep apnea treated with continuous positive airway pressure (CPAP) Chronic atrial fibrillation Acute respiratory acidosis (Acute) Elevated brain natriuretic peptide (BNP) level (Acute) Pulmonary edema (Acute) Chronic retention of urine (Chronic) Multiple myeloma (Acute) Bladder calculi (Acute) Cardiac pacemaker in situ Monoclonal paraproteinemia Respiratory failure with hypoxia 07/15/21 Anemia (Acute) History of pulmonary embolism Pleural effusion, left 05/07/21 Pericardial effusion 05/07/21 Monoclonal B-cell lymphocytosis Atrial fibrillation BPH (benign prostatic hyperplasia) Morbid (severe) obesity due to excess calories CKD (chronic kidney disease), stage III ASCVD (arteriosclerotic cardiovascular disease) (Chronic) cardiac cath 2009 - non obstructive disease Osteoarthrosis (Chronic) Hypertension Major depression (Chronic) Obstructive sleep apnea on CPAP Insomnia (Chronic) Medical History Poor historian pt with periods of confusion, daughter Shady completed PAT interview - unaware of dates or many details of surgical history Hx of respiratory failure Osteoarthritis LBBB (left bundle branch block) Hypertension CKD (chronic kidney disease), stage III Chronic retention of urine Cardiac pacemaker in situ Bladder calculi History of anemia Hx of gout Sleep apnea cpap Chronic diarrhea Anxiety and depression Multiple myeloma (2018) current chemo tx monthly- IgG History of pulmonary embolism History of DVT (deep vein thrombosis) Pneumonia due to COVID-19 virus hx Atrial fibrillation with rapid ventricular response (05/2021) hx cardioversion [id number] placed jun 2021 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 HX GERD (gastroesophageal reflux disease) BPH without obstruction/lower urinary tract symptoms Carpal tunnel syndrome Restless leg syndrome Surgical History History of cystoscopy (12/14/23) wtih fulguration of prostate History of surgery (07/2019) Pleurx Catheter History of cardiac cath (2009) ? 2009 - unable to verify - no known hx stent(s)- unsure why History of revision of total knee arthroplasty x 4-5 additional surgeries ? side...d/t infection History of pacemaker (06/2021) ? type- checked January 07, 2024- follows with Patricia (11/19/23) History of thoracentesis (07/2019) No bacterial growth or malignancy Pleurx catheter placed July 2019. Removed September 2019 History of appendectomy (05/2019) History of esophagogastroduodenoscopy (EGD) (07/2022) History of colonoscopy (07/2022) History of tooth extraction ?date History of cataract surgery R/L - ?date History of total right hip arthroplasty x 2, left and right, ? date H/O sinus surgery unknown History of bilateral knee arthroplasty unk date Hx of cholecystectomy ? date Family History Father Heart disease Mother Diabetes Hypertension Brother Family hx of colon cancer Brother Family hx of colon cancer Social History Smoking Status: Never smoker Second Hand Exposure: No; Do You Dip or Chew Tobacco: No; Hx Alcohol Use: No Hx Substance Use: No Preferred Language: Russian Communication Ability: Effective Communication Ability Comment: PT DAUGHTER SHADY DAY, SIGNS CONSENTS (PT LIMITED COMPREHENSION) Disability Rater Required: No Beliefs That Will Affect Care: None marital status: Current Living Situation: Spouse and Family Current Living Situation Comment: lives with and daughter How many Children do You have: 2 Feels Safe at Home: Yes Assistive Devices: Walker Review of Systems Review of Systems: All systems reviewed & are unremarkable except as noted in HPI & below Physical Exam Physical Exam: General: No acute distress, nondiaphoretic, well-developed, well-nourished. Class III obesity. Skin: Warm, dry. Generalized pallor. Cardiac: Mildly tachycardic in 90s, irregularly irregular rhythm. No murmur appreciated. Pulm: Mild rales in right lung base. Otherwise diminished but clear throughout. Normal respiratory effort. 96% on 2 L NC. Abdominal: Soft, nontender, distended secondary to body habitus. Bowel sounds present. Neuro: A&O x3. No focal neurological deficits. Results & Data Results & Data Vital Signs (Past 12 Hours) Vital Signs Temp Pulse Pulse Resp BP BP Pulse Ox 01/05/25 17:50 98.8 F 01/05/25 17:27 95 H 19 100/68 93 01/05/25 16:56 91 H 32 H 97/65 L 95 01/05/25 16:47 95 H 20 100/61 95 01/05/25 16:30 94 H 36 H 100/57 L 95 01/05/25 16:17 99 H 29 H 92/65 L 93 01/05/25 16:17 91 H 21 92/65 L 96 01/05/25 15:49 102 H 01/05/25 15:45 105/75 01/05/25 15:40 86 L 01/05/25 15:32 94 H 28 H 114/77 94 01/05/25 15:26 100 H 36 H 114/77 97 01/05/25 15:22 01/05/25 15:15 104 H 38 H 107/67 90 01/05/25 14:58 100.8 F H 107 H 20 114/73 95 O2 Del Method O2 Flow Rate 01/05/25 17:50 01/05/25 17:27 Nasal Cannula 2 01/05/25 16:56 Nasal Cannula 2 01/05/25 16:47 Nasal Cannula 2 01/05/25 16:30 01/05/25 16:17 01/05/25 16:17 Nasal Cannula 2 01/05/25 15:49 01/05/25 15:45 01/05/25 15:40 Room Air 01/05/25 15:32 Nasal Cannula 2 01/05/25 15:26 Nasal Cannula 2 01/05/25 15:22 Room Air 01/05/25 15:15 01/05/25 14:58 Room Air Laboratory Results Reviewed CBC with differential Reviewed coags Reviewed VBG Reviewed CMP, chemistries Reviewed UA Reviewed respiratory panel Diagnostic Findings Reviewed CXR, head CT, CT A/P, EKG Chest X-Ray 01/05/25 15:11 XR chest 1V portable CLINICAL HISTORY: Sepsis COMPARISON STUDY: 03/25/2024 FINDINGS: Stable pacemaker. Stable cardiomegaly with increased pulmonary vascular congestion. Inspiration is shallow. No lobar consolidation or pleural effusion seen. No pneumothorax. IMPRESSION: 1. Increased CHF. 2. Shallow inspiration limits evaluation of the lungs. No lobar pneumonia seen. ACT 112: Negative or not required by law. Electronically signed by: Raul Garcia M.D. 01/05/2025 3:[address] 01/05/25 15:12 CT head without contrast History: AMS Comparison: 12/29/2023 Technique: Using multidetector thin collimation helical acquisition technique, axial, coronal and sagittal CT images from the skull base to the vertex were obtained without intravenous contrast. Dose reduction techniques were achieved by using automatic exposure control and/or adjustment of mA and/or kV according to patient size and/or use of iterative reconstruction technique. Findings: No intracranial hemorrhage, mass-effect, or midline shift. The ventricles are proportionate to the cerebral sulci. The sullivan to white matter differentiation of the cerebral hemispheres is preserved. The basal cisterns are patent. The visualized paranasal sinuses are clear. Mastoid air cells are clear. Right suboccipital craniectomy change. Small area of encephalomalacia at the inferior right cerebellum. Impression: No acute intracranial pathology. Electronically signed by Wade Parker 01-05-2025 5:09 PM Abdomen/Pelvis CT 01/05/25 15:40 Clinical History: Abdominal pain Technique: Axial computed tomography images were obtained of the abdomen and pelvis without intravenous contrast. Comparison is made to the prior CT dated 12/27/2023 Findings: The liver is overall of normal size, attenuation, and contour with no sign of cirrhosis or significant fatty infiltration. No definite liver mass lesion is seen on this noncontrast study. The gallbladder has been removed. No bile duct dilatation is noted. The spleen is mildly enlarged measuring 14.1 cm. No focal splenic lesion is evident. The pancreas appears normal with no sign of acute or chronic pancreatitis and no mass lesion noted. The pancreatic duct is of normal caliber. The adrenal glands appear unremarkable. No renal or proximal ureteral calculi are seen. There is no hydronephrosis or perinephric stranding. There is an unchanged 1.9 cm hyperdense lesion in the mid left kidney The aorta is of normal caliber. No abdominal adenopathy is seen. The stomach appears normal. There is no sign of small bowel obstruction. The colon appears unremarkable. The appendix appears to have been removed. No free intraperitoneal fluid or air is identified. No distal ureteral or bladder calculi are seen. There is a small 1.3 cm diverticulum of the left aspect of the urinary bladder. The iliac arteries are of normal caliber. No pelvic adenopathy is noted. The prostate is mildly enlarged measuring 4.5 cm There is mild subsegmental atelectasis in the lung bases. Pacemaker leads are present. There is coronary arthrosclerosis There are bilateral hip replacements, resulting in surrounding artifact. There is lumbar scoliosis and degenerative disc disease. No fracture is identified. No focal osseous lesion is seen Impression: 1. Unchanged hyperdense left renal lesion, likely a proteinaceous or hemorrhagic cyst 2. Mild splenomegaly 3. Small bladder diverticulum 4. Enlarged prostate. Correlation with PSA levels may be useful ACT 112: Positive. There are findings on this exam that require communication between the performing entity and the patient following Patient Test Result Information Act ([place] ACT 112) guidelines. Electronically signed by Gregg Eduardo 01-05-2025 5:35 PM Code Status & VTE Plan VTE Prophylaxis Plan VTE Prophylaxis will be ordered: Yes Supervising Physician Co-Signing Physician Notes I personally examined the patient and verified all miller points of history and exam, discussed case, and agree with decision making with S Gross PAC felt bad, febrile, sob. now almost all better, feeling normal breathing feels good down to 1L O2 vitals noted nad heent nc at mmm lungs very faint rales barely audible even with amplifier no rhonchi no wheeze good effort fever, hypoxia - ?transient IVIG reaction -nothing c/w pneumonia, as far as fever - also nothing c/w other infectious sources (bacterial, viral, tick borne) ---seems most c/w IVIG reaction except that he's had ~15 treatments (i'm not sure if we'd be able to reliably find if this was a different brand/etc) - observe overnight, serial exams, serial labs - if everything continues to normalize, then with ruling out infection and his situation getting better with no intervention -most likley transient IVIG related. obviously if new sx unfold then would manage appropriately otherwise as above PG Care Time/CCT Total # of Minutes Spent Total Time Spent with Patient: Total time spent is greater than 50% in coordination of care (as documented) at patient's floor/unit and/or counseling patient: Coding Level of Care Code 41008 INT INP/OBS CARE 3/75MIN Diagnoses Hypoxia R09.02 Dyspnea R06.00 Hypomagnesemia E83.42
[2025-01-05] MEDS ORDERED: POLYETHYLENE (MIRALAX) 17 GM PACK PO PRN (21:00)
[2025-01-05] MEDS ORDERED: ONDANSETRON INJ 2 MG/ML 2 ML VIAL IV PRN (21:00)
[2025-01-05] MEDS ORDERED: ALBUTEROL HFA 8 GM INHALER INH PRN (21:00)
[2025-01-05] MEDS ORDERED: ACETAMINOPHEN 325 MG TAB PO PRN (21:00)
[2025-01-05] MEDS: CALCIUM CITRATE 950 MG TAB PO SCH (22:02)
[2025-01-05] MEDS: ACYCLOVIR 400 MG TAB PO SCH (22:02)
[2025-01-05] MEDS: METOPROLOL SUCC 50MG EXT REL TAB PO SCH (22:02)
[2025-01-05] MEDS: APIXABAN 2.5 MG TAB PO SCH (22:02)
[2025-01-05] MEDS: TERAZOSIN HCL 1 MG CAP PO SCH (22:02)
[2025-01-06] MEDS: LEVOTHYROXINE SODIUM 75 MCG TABLET PO SCH (05:27)
[2025-01-06 06:29] LABS: Hematocrit (blood only) 39.1 % (42.0-52.0); Hemoglobin 13.2 g/dl (14.0-18.0); Immature Granulocytes # (auto) 0.03 K/uL (0.01-0.20); Immature Granulocytes % (auto) 0.4 %; Mean Corpuscular Hemoglobin 30.1 pg (25.0-34.0); Mean Corpuscular Volume 89.3 fL (80.0-100.0); Platelet Count 144 K/uL (130-400); RDW Standard Deviation 44.7 fL (36.4-46.3); Red Blood Count 4.38 M/uL (4.70-6.10); White Blood Count 7.90 K/ul (4.8-10.8)
[2025-01-06 06:47] LABS: Anion Gap 7 (3-11); Blood Urea Nitrogen 30 mg/dl (6-23); Calcium 6.8 mg/dl (8.6-10.3); Carbon Dioxide 32 mmol/L (21-32); Chloride 98 mmol/L (98-107); Creatinine Clr Calc Pharmacy 35.7 ml/min; Glucose 116 mg/dl (70-99(Fasting)); Magnesium 1.9 mg/dl (1.7-2.4); Sodium 137 mmol/L (136-145)
--- NOTE | 2025-01-06 07:20 | Hospitalist Progress Note ---
Date of Service January 06, 2025 Assessment & Plan Plan Corwin is a 84-year-old man with extensive past medical history including chronic diastolic heart failure, nonobstructive CAD, chronic LBBB, hypertension, hyperlipidemia, atrial fibrillation, sick sinus syndrome s/p permanent pacemaker, history of PE on Eliquis, NAHEED (noncompliant with CPAP), CKD, chronic anemia, multiple myeloma s/p treatment, hypothyroidism, prediabetes, immunoglobulin deficiency, GERD, restless legs, mood disorder, history of recurrent C. difficile. He presented with acute onset of dyspnea and hypoxia he presented with acute onset of dyspnea and hypoxia after IVIG infusion. This was his 16th IVIG infusion and he has not had an adverse reaction previously. He was in his usual state of health up until about 30-60 minutes following his infusion. He was admitted for hypoxia and and further monitoring. #Hypoxia/dyspneasuspect this is secondary to a transient IVIG infusion reaction. No infectious signs or symptoms or recent sick contacts. - CXR did note increased CHF. BNP was normal at 71. No leukocytosis. Lactate elevated at 2.4 but procalcitonin normal at 0.28. CRP is pending - Wean supplemental oxygen as able to maintain O2 sat > 90% - If this is IVIG related, would anticipate improvement without significant intervention - Mild fever on presentation to ED at 100.8 F, now afebrile. Tylenol available as needed for fever/pain #Hypomagnesemia - Mag low at 1.3. Repleted with 1 g IV mag x 2 - Repeat mag with a.m. labs #Permanent A-fib/HFpEF/CAD/hypertension - Cautious use of IV fluids given heart failure history and increased heart failure noted on admission CXR - Otherwise continue usual regimen #CKD stage IIIcreatinine at baseline. Avoid nephrotoxic agents when possible #OSACPAP at bedtime Dispo: Med telemetry VTE PPx: Eliquis CODE STATUS: Full code Admission and Anticipated Discharge Date Admission Date: January 05, 2025 Subjective Overnight events: Ongoing symptoms: New concerns: Review of Systems Review of Systems: As per HPI Physical Exam Physical Exam: General: No acute distress, nondiaphoretic, well-developed, well-nourished. Class III obesity. Skin: Warm, dry. Generalized pallor. Cardiac: Mildly tachycardic in 90s, irregularly irregular rhythm. No murmur appreciated. Pulm: Mild rales in right lung base. Otherwise diminished but clear throughout. Normal respiratory effort. 96% on 2 L NC. Abdominal: Soft, nontender, distended secondary to body habitus. Bowel sounds present. Neuro: A&O x3. No focal neurological deficits. Results & Data Results & Data Vital Signs (Past 12 Hours) Vital Signs Temp Pulse Pulse Resp BP BP Pulse Ox 01/06/25 05:52 76 01/06/25 04:00 36.8 C 79 18 107/57 L 98 01/05/25 23:42 36.7 C 83 18 105/68 96 01/05/25 21:05 78 01/05/25 21:00 01/05/25 21:00 36.7 C 94 H 18 107/66 99 01/05/25 20:30 88 24 95 01/05/25 20:15 89 22 96/67 L 96 01/05/25 20:00 85 20 113/66 92 01/05/25 19:45 101 H 25 H 109/69 96 01/05/25 19:31 87 25 H 90/68 L 95 O2 Del Method O2 Flow Rate 01/06/25 05:52 01/06/25 04:00 Nasal Cannula 2 01/05/25 23:42 Nasal Cannula 2 01/05/25 21:05 01/05/25 21:00 Nasal Cannula 2 01/05/25 21:00 Nasal Cannula 2 01/05/25 20:30 Nasal Cannula 2 01/05/25 20:15 Nasal Cannula 2 01/05/25 20:00 Nasal Cannula 2 01/05/25 19:45 Nasal Cannula 2 01/05/25 19:31 Nasal Cannula 2
[2025-01-06] MEDS: ATORVASTATIN 10 MG TAB PO SCH (07:50)
[2025-01-06] MEDS: MONTELUKAST SODIUM 10 MG TABLET PO SCH (07:51)
[2025-01-06] MEDS: TORSEMIDE 20 MG TAB PO SCH (07:51)
[2025-01-06] MEDS: POTASSIUM CHLORIDE CRTAB 20 MEQ TABCR PO SCH (08:24)
[2025-01-06 09:08] VITALS: O2SAT 93
[2025-01-06 11:18] VITALS: BP 119/63; PULSE 72; RESP 20; TEMP 97.9
--- NOTE | 2025-01-06 17:01 | Discharge Summary ---
Discharge Summary Date of Service January 06, 2025 Principal Dx & Hospital Course #1 = Principal Diagnosis (1) Hypoxia: (2) Dyspnea: (3) Hypomagnesemia: Plan continues to feel better today, no sob. 90-93% on RA at rest, then 95% on RA with ambulation #Hypoxia/dyspneasuspect this is secondary to a transient IVIG infusion reaction. No infectious signs or symptoms or recent sick contacts. - CXR did note increased CHF. BNP was normal at 71. No leukocytosis. Lactate elevated at 2.4 but procalcitonin normal at 0.28. CRP was 0.79 - improved without any intervention - safe/stable for home -updated oncology Notes For Next Care Provider Medication Changes From Visit none Admission HPI Per Admitting Provider Corwin is a 84-year-old man with extensive past medical history including chronic diastolic heart failure, nonobstructive CAD, chronic LBBB, hypertension, hyperlipidemia, atrial fibrillation, sick sinus syndrome s/p permanent pacemaker, history of PE on Eliquis, NAHEED (noncompliant with CPAP), CKD, chronic anemia, multiple myeloma s/p treatment, hypothyroidism, prediabetes, immunoglobulin deficiency, GERD, restless legs, mood disorder, history of recurrent C. difficile. He presented from home via EMS with dyspnea and altered mental status. At the time of my exam, the patient was lying in bed in no acute distress with his and daughter present at bedside. He states he was in his normal state of health the past few days and this morning. He had an IVIG infusion today and initially tolerated this well. His daughter was driving him home from his infusion and stopped at the grocery store, Corwin remained in the car. He went his daughter returned, she found Corwin extremely dyspneic, diaphoretic, and somewhat altered. He remained in the state upon returning home and family called for EMS. He was found to be hypoxic upon arrival to the ED and was placed on supplemental O2. He reports feeling much better at time of admission. Patient reports that he took all of his regular morning medications today.only r ecent medication change was clearance starting calcitriol on 12/31. This was his 16th IVIG infusion and he has never experienced a reaction to prior infusions. He does not use supplemental oxygen at baseline, aside from CPAP at night. Vitals on admission significant for hypoxia at 86% on room air now improved to 96% on 2L NC, intermittent tachypnea, mild tachycardia in [id number], and low- grade fever at 100.8 F; vitals otherwise stable. Labs on admission are significant for elevated lactate at 2.4, hypomagnesemia at 1.3. BNP normal at 71, procalcitonin WNL at 0.28, UA negative, respiratory pa elisabet negative. CXR on admission reveals increased CHF. Head CT with no acute intracranial pathology. CT A/P overall unremarkable. We discussed code status, patient wishes to be a full code. Discharge Exam In general he is awake and alert pleasant no distress. HEENT normocephalic atraumatic mucous membranes moist. Lungs are clear to auscultation bilaterally no rales rhonchi or wheeze with good effort. He is 90-93% on room air at rest, later walking with nursing he was 95% on room air. Neuro without focal deficits. Updated Medication List Medication Instructions Recorded Confirmed Type allopurinol 300 mg tablet 300 mg PO QAM 04/30/18 01/05/25 History omeprazole 40 mg capsule,delayed 40 mg PO DAILYBB 04/30/18 01/05/25 History release montelukast 10 mg tablet 10 mg PO QAM 05/07/21 01/05/25 History cyanocobalamin (vitamin B-12) 1,000 mcg PO Q2D 01/23/23 01/05/25 History 1,000 mcg tablet triamcinolone acetonide 0.1 % 1 applic topical BID PRN flare up 01/23/23 01/05/25 History topical cream acyclovir 400 mg tablet 400 mg PO BID 03/28/23 01/05/25 History albuterol sulfate 90 mcg/actuation 2 puff inhalation QID PRN 03/28/23 01/05/25 History aerosol inhaler Shortness Of Breath Or Wheezing potassium chloride 20 mEq 40 meq PO QAM 10/10/23 01/05/25 History tablet,extended release levothyroxine 75 mcg tablet 75 mcg PO DAILYBB 12/08/23 01/05/25 History metoprolol succinate 50 mg 50 mg PO BID 12/08/23 01/05/25 History tablet,extended release 24 hr duloxetine 60 mg capsule,delayed 60 mg PO QAM 03/11/24 01/05/25 History release trazodone 100 mg tablet 200 mg PO HS 03/11/24 01/05/25 History atorvastatin 10 mg tablet 5 mg PO QAM 11/17/24 01/05/25 History calcitriol 0.25 mcg capsule 0.25 mcg PO .COMPLEX #36 caps 12/22/24 01/05/25 Rx eplerenone 25 mg tablet 12.5 mg PO .COMPLEX 12/22/24 01/05/25 History terazosin 2 mg capsule 2 mg PO HS 12/22/24 01/05/25 History apixaban 2.5 mg tablet (Eliquis) 2.5 mg PO AMHS 01/05/25 01/05/25 History calcium citrate 250 mg PO AMHS 01/05/25 01/05/25 History duloxetine 30 mg capsule,delayed 30 mg PO QAM 01/05/25 01/05/25 History release magnesium oxide 400 mg PO AMHS 01/05/25 01/05/25 History torsemide 20 mg tablet 40 mg PO QAM 01/05/25 01/05/25 History Hospital Stay Data Consultations 01/05/25 17:45 ED Decision to Admit Stat Diagnostic Imagining Performed 01/05/25 15:12 CT head/brain wo con Stat 01/05/25 15:40 CT abd pelvis wo con Stat Pending Results Patient Have Any Pending Studies at Discharge: No Discharge Instructions Given to Patient (Per Discharging Provider) You were admitted to the hospital for due to hypoxia/difficulty in breathing. Imaging including CT Brain and Chest Xray was Normal. You required o2 but we are able to wean you off oxygen and ready to be discharged back home today A discharge summary will be sent to your primary care physician to ensure continuity of care. Please bring this discharge summary with you to your next office appointment so that your provider can review it at that time. Follow-up appointments: Make a follow-up appointment with your PCP within the next week. It is very important that you follow up with them shortly after discharge from the hospital. Keep all your follow-up appointments as already scheduled. If you cannot make an appointment, notify your provider. Make sure all of your doctors know every medicine you are taking (including [id number] medicines, vitamins, and supplements). Call your primary care provider before taking any new medicines (including over the-counter medicines, vitamins, and supplements), because some of these may interact with your current medications, or may make your symptoms worse. Tell your primary care provider if you cannot afford your medications. CONTACT YOUR PRIMARY CARE PROVIDER if you experience any of the following: Shortness of breath, chest pain Difficulty following your treatment plan, or difficulty taking medications CALL 911 OR GO TO THE EMERGENCY DEPARTMENT if you experience any of the following: Sudden, severe abdominal pain or nausea/vomiting Severe chest pain, or chest pain that radiates (moves) to your jaw or arm Sudden, severe shortness of breath or difficulty breathing Thank you for allowing us to participate in your care. . Total Time Total Time Spent Total Time Spent (In Minutes): <30
--- NOTE | 2025-01-06 17:03 | Discharge Summary ---
Date of Service January 06, 2025 Admission HPI Per Admitting Provider Corwin is a 84-year-old man with extensive past medical history including chronic diastolic heart failure, nonobstructive CAD, chronic LBBB, hypertension, hyperlipidemia, atrial fibrillation, sick sinus syndrome s/p permanent pacemaker, history of PE on Eliquis, NAHEED (noncompliant with CPAP), CKD, chronic anemia, multiple myeloma s/p treatment, hypothyroidism, prediabetes, immunoglobulin deficiency, GERD, restless legs, mood disorder, history of recurrent C. difficile. He presented from home via EMS with dyspnea and altered mental status. At the time of my exam, the patient was lying in bed in no acute distress with his and daughter present at bedside. He states he was in his normal state of health the past few days and this morning. He had an IVIG infusion today and initially tolerated this well. His daughter was driving him home from his infusion and stopped at the grocery store, Corwin remained in the car. He went his daughter returned, she found Corwin extremely dyspneic, diaphoretic, and somewhat altered. He remained in the state upon returning home and family called for EMS. He was found to be hypoxic upon arrival to the ED and was placed on supplemental O2. He reports feeling much better at time of admission. Patient reports that he took all of his regular morning medications today.only recent medication change was clearance starting calcitriol on 12/31. This was his 16th IVIG infusion and he has never experienced a reaction to prior infusions. He does not use supplemental oxygen at baseline, aside from CPAP at night. Vitals on admission significant for hypoxia at 86% on room air now improved to 96% on 2L NC, intermittent tachypnea, mild tachycardia in [id number], and low- grade fever at 100.8 F; vitals otherwise stable. Labs on admission are significant for elevated lactate at 2.4, hypomagnesemia at 1.3. BNP normal at 71, procalcitonin WNL at 0.28, UA negative, respiratory panel negative. CXR on admission reveals increased CHF. Head CT with no acute intracranial pathology. CT A/P overall unremarkable. We discussed code status, patient wishes to be a full code. Admission Exam Per Admitting Provider General: No acute distress, nondiaphoretic, well-developed, well-nourished. Class III obesity. Skin: Warm, dry. Generalized pallor. Cardiac: Mildly tachycardic in 90s, irregularly irregular rhythm. No murmur appreciated. Pulm: Mild rales in right lung base. Otherwise diminished but clear throughout. Normal respiratory effort. 96% on 2 L NC. Abdominal: Soft, nontender, distended secondary to body habitus. Bowel sounds present. Neuro: A&O x3. No focal neurological deficits. Principal Diagnosis Transient reaction to IVIG Discharge Exam General: No acute distress, nondiaphoretic, well-developed, well-nourished. Class III obesity. Skin: Warm, dry. Generalized pallor. Cardiac: Mildly tachycardic in 90s, irregularly irregular rhythm. No murmur appreciated. Pulm: Mild rales in right lung base. Otherwise diminished but clear throughout. Normal respiratory effort. 96% on 2 L NC. Abdominal: Soft, nontender, distended secondary to body habitus. Bowel sounds present. Neuro: A&O x3. No focal neurological deficits. Discharge Data Allergies Allergy/AdvReac Type Severity Reaction Status Date / Time colchicine AdvReac Unknown contraindicated Verified 01/05/25 16:09 due to kidney disease COVID-19 vaccine, mRNA, AdvReac Unknown probable Verified 12/22/24 14:09 [id number], L reaction: [From [place] (PF)] throat swelling Consultations 01/05/25 17:45 ED Decision to Admit Stat Ordered Studies 01/05/25 15:12 CT head/brain wo con Stat 01/05/25 15:40 CT abd pelvis wo con Stat Hospital Course (1) Dyspnea: (2) Hypoxia: Plan Corwin is a 84-year-old man with extensive past medical history including chronic diastolic heart failure, nonobstructive CAD, chronic LBBB, hypertension, hyperlipidemia, atrial fibrillation, sick sinus syndrome s/p permanent pacemaker, history of PE on Eliquis, NAHEED (noncompliant with CPAP), CKD, chronic anemia, multiple myeloma s/p treatment, hypothyroidism, prediabetes, immunoglobulin deficiency, GERD, restless legs, mood disorder, history of recurrent C. difficile. He presented with acute onset of dyspnea and hypoxia he presented with acute onset of dyspnea and hypoxia after IVIG infusion. This was his 16th IVIG infusion and he has not had an adverse reaction previously. He was in his usual state of health up until about 30-60 minutes following his infusion. He was admitted for hypoxia and and further monitoring. #Hypoxia/dyspnea suspect this is secondary to a transient IVIG infusion reaction. No infectious signs or symptoms or recent sick contacts. -Able to maintain oxygen in RA -Discharge today #Hypomagnesemia(Resolved) - #Permanent A-fib/HFpEF/CAD/hypertension - Cautious use of IV fluids given heart failure history and increased heart failure noted on admission CXR - Otherwise continue usual regimen #CKD stage IIIcreatinine at baseline. Avoid nephrotoxic agents when possible #OSACPAP at bedtime Total Time Total Time Spent Total Time Spent (In Minutes): See attending attestation Discharge Plan Discharge Items Patient Disposition: Home - Self-Care Reason For Visit: HYPOXIA, SHORTNESS OF BREATH Discharge Diagnosis: 1. Hypoxia/ Transient IVIG reaction Condition on Discharge: Serious Activity: Resume your previous activity Non-emergency contact: Primary Care Provider Call non-emergency contact if: you have any medication questions and your symptoms worsen Follow-up/Referrals: Telma Jacobs CRNP [Primary Care Provider] - Diet: Heart Healthy Addtl Attending Provider Instructions: You were admitted to the hospital for due to hypoxia/difficulty in breathing. Imaging including CT Brain and Chest Xray was Normal. You required o2 but we are able to wean you off oxygen and ready to be discharged back home today A discharge summary will be sent to your primary care physician to ensure continuity of care. Please bring this discharge summary with you to your next office appointment so that your provider can review it at that time. Follow-up appointments: Make a follow-up appointment with your PCP within the next week. It is very important that you follow up with them shortly after discharge from the hospital. Keep all your follow-up appointments as already scheduled. If you cannot make an appointment, notify your provider. Make sure all of your doctors know every medicine you are taking (including [id number] medicines, vitamins, and supplements). Call your primary care provider before taking any new medicines (including over the-counter medicines, vitamins, and supplements), because some of these may interact with your current medications, or may make your symptoms worse. Tell your primary care provider if you cannot afford your medications. CONTACT YOUR PRIMARY CARE PROVIDER if you experience any of the following: Shortness of breath, chest pain Difficulty following your treatment plan, or difficulty taking medications CALL 911 OR GO TO THE EMERGENCY DEPARTMENT if you experience any of the following: Sudden, severe abdominal pain or nausea/vomiting Severe chest pain, or chest pain that radiates (moves) to your jaw or arm Sudden, severe shortness of breath or difficulty breathing Thank you for allowing us to participate in your care. . Pending Studies at Discharge: No Stand-Alone Forms: My [facility], Smoking Cessation Medications and DC Order Prescriptions: Continued albuterol sulfate 90 mcg/actuation HFA aerosol inhaler 2 puff inhalation QID PRN (Reason: Shortness Of Breath Or Wheezing) acyclovir 400 mg tablet 400 mg PO BID terazosin 2 mg capsule 2 mg PO HS eplerenone 25 mg tablet 12.5 mg PO .COMPLEX Rx Instructions: 12.5 mg orally; Take on Fri/Fri/Fri calcitriol 0.25 mcg capsule 0.25 mcg PO .COMPLEX Qty: 36 2RF Rx Instructions: 0.25 mcg orally every friday, friday, and friday; omeprazole 40 mg Capsule,Delayed Release(Dr/Ec) 40 mg PO DAILYBB allopurinol 300 mg Tablet 300 mg PO QAM atorvastatin 10 mg tablet 5 mg PO QAM Rx Instructions: TAKE HALF A TABLET DAILY potassium chloride 20 mEq tablet extended release 40 meq PO QAM Rx Instructions: take 2 tablet dose cyanocobalamin (vitamin B-12) 1,000 mcg Tablet 1,000 mcg PO Q2D triamcinolone acetonide 0.1 % cream 1 applic TOPICAL BID PRN (Reason: flare up) montelukast 10 mg tablet 10 mg PO QAM metoprolol succinate 50 mg tablet extended release 24 hr 50 mg PO BID levothyroxine 75 mcg tablet 75 mcg PO DAILYBB duloxetine 60 mg capsule,delayed release(DR/EC) 60 mg PO QAM trazodone 100 mg Tablet 200 mg PO HS torsemide 20 mg tablet 40 mg PO QAM magnesium oxide 400 mg magnesium capsule 400 mg PO AMHS duloxetine 30 mg capsule,delayed release(DR/EC) 30 mg PO QAM Eliquis 2.5 mg tablet 2.5 mg PO AMHS calcium citrate 250 mg calcium tablet 250 mg PO AMHS Discontinued diphenoxylate-atropine [Lomotil] 2.5-0.025 mg Tablet 1 tab PO QID PRN (Reason: Diarrhea) Discharge Orders: Discharge Order (Routine); Ordered 01/06/25 Ordered By: Chace Christie/Other Patient Handouts: ED Shortness of Breath (Dyspnea) Admission Data Admit Date/Time: 01/05/25 18:11 Attending Provider: Saúl Almaraz Admit Provider: Saúl Almaraz Primary Care Provider: Telma Jacobs Other Providers: Shakir Friedman Other Interventions: Discharge Summary Assessment (RN) Last Done: 01/06/25 10:26
--- NOTE | 2025-01-06 17:04 | Billing Data ---
Date of Service January 06, 2025 Coding Level of Care Code 25056 IN/OBS DISCH 30 MIN/LESS
[2025-01-07] MEDS ORDERED: CALCITRIOL 0.25 MCG CAPSULE PO SCH (09:00)
== END 2025-01-06 13:13 | disposition home or self-care (01) | DRG 206 ==
LOC: ED 14:58 → 2N 18:11

== ENCOUNTER 2025-06-16 09:34 | Observation (INO) ==
--- NOTE | 2025-06-16 09:46 | Emergency Department Note ---
Impression & Plan CHF (congestive heart failure), Atrial fibrillation, Shortness of breath at rest, Pulmonary edema ED Provider Note NAME: VANESSA CURTIS AGE: 85 SEX: M : 1940 ARRIVES VIA: Ambulance INFORMANT: Patient ED PROVIDER(S): Niraj Mahmood MD CHIEF COMPLAINT: Shortness of breath PLAN: Disposition: Admit MEDICAL DECISION MAKING: The patient is a pleasant 85-year-old gentleman with a past medical history of chronic diastolic heart failure, nonobstructive CAD, chronic LBBB, hypertension, hyperlipidemia, atrial fibrillation on Eliquis, sick sinus syndrome s/p permanent pacemaker, history of PE on Eliquis, NAHEED (noncompliant with CPAP), CKD, chronic anemia, multiple myeloma s/p treatment, hypothyroidism, prediabetes, immunoglobulin deficiency, GERD, restless legs, mood disorder, history of recurrent C. difficile who presents to the emergency department via EMS for worsening shortness of breath and fluid retention in setting of being managed for this by his outpatient provider. Patient denies fevers, productive cough, nausea, vomiting, diarrhea or symptoms. He denies chest pain. On my evaluation the patient is no acute distress, afebrile with O2 saturation low 90s on room air with mild dyspnea with vital signs otherwise stable. He appears hypervolemic. Lungs are diminished at the bases bilaterally. 1+ bilateral lower extremity edema. EKG without overt acute ischemia. CXR demonstrates pulmonary edema and small pleural effusions. WBC and platelets within normal limits. H/H similar to prior. Chemistry without metabolic acidosis. Creatinine 2.02, similar to prior in setting of CKD. Electrolytes unremarkable. High-sensitivity troponin 9.5, within normal limits. BNP 1 awake, marginally above hyperlipidemia normal but in setting of BMI of 50.2. Lipase is normal. TSH 6.3 with free T4 within normal limits. Given the patient's persistent dyspnea which has been worsening despite outpatient management the patient does agree plan for admission for further management. IV Bumex ordered. Case was discussed with admitting resident Dr. Young, with Dr. Vidal, [facility] hospitalist. Further management per admitting team. Triage Nursing notes reviewed and agree them. Prior/external medical records reviewed Vital Signs: reviewed Differential diagnosis: Reactive airway disease, pneumonia, pneumothorax, COPD, CHF, infections, cardiac ischemia, pulmonary embolism, musculoskeletal, gastrointestinal, as well as other pathologies. ER treatment provided: See below. Diagnostics interpreted by me: ECG: Atrial fibrillation, frequent PVCs, 71 bpm, nonspecific intraventricular conduction block, no overt ST ovation or depression, QTc 497, QRS 146. Similar to prior. Cardiac Monitoring: An order for continuous cardiac monitoring was placed and demonstrated atrial fibrillation, frequent PVCs, 71 bpm Laboratory studies: See below Imaging studies: See below Consultation(s): Admitting resident Dr. Young, with Dr. Vidal, [facility] hospitalist HPI: Per MDM. ROS: See above HPI for pertinent positives & negatives. A total of 10 systems reviewed and were otherwise negative. VITALS:See Below PHYSICAL EXAMINATION: GENERAL: Awake, alert, mildly dyspneic-appearing, in no distress HENT: Normocephalic, atraumatic. Oropharynx unremarkable. EYES: Normal conjunctiva. Sclera non-icteric. NECK: Supple. No nuchal rigidity. FROM. No JVD. RESPIRATORY: Diminished at the bases and otherwise clear to auscultation. CARDIAC: Regular rate, irregular rhythm. Extremities warm and well perfused. Pulses equal. ABDOMEN: Soft, non-distended. No tenderness to palpation. No rebound or guarding. No masses. MUSCULOSKELETAL: Chest examination reveals no tenderness. The back is symmetrical on inspection without obvious abnormality. There is no CVA tenderness to palpation. No joint edema. LOWER EXTREMITIES: Calves are equal size bilaterally and non-tender. 1+ bilateral lower extremity pitting edema. No discoloration. NEURO: Normal sensorium. No sensory or motor deficits noted. SKIN: No rash or jaundice noted. Niraj Mahmood MD Past Med/Surg History Problem List (Updated 06/17/25 @ 15:40 by Niraj Mahmood MD) Pulmonary edema (Acute) Shortness of breath at rest (Acute) Atrial fibrillation (Acute) CHF (congestive heart failure) (Acute) Acute exacerbation of chronic heart failure Dyspnea Hypocalcemia (Acute) Hypomagnesemia (Acute) Chronic heart failure with preserved ejection fraction (HFpEF) Sleep apnea treated with continuous positive airway pressure (CPAP) Elevated brain natriuretic peptide (BNP) level (Acute) Multiple myeloma (Acute) Cardiac pacemaker in situ Monoclonal paraproteinemia Monoclonal B-cell lymphocytosis Atrial fibrillation BPH (benign prostatic hyperplasia) Morbid (severe) obesity due to excess calories CKD (chronic kidney disease), stage III ASCVD (arteriosclerotic cardiovascular disease) (Chronic) cardiac cath 2009 - non obstructive disease Osteoarthrosis (Chronic) Hypertension Major depression (Chronic) Obstructive sleep apnea on CPAP Insomnia (Chronic) Medical History (Updated 06/17/25 @ 15:40 by Niraj Mahmood MD) Chronic atrial fibrillation Pericardial effusion 05/07/21 Pleural effusion, left 05/07/21 History of pulmonary embolism Bladder calculi Chronic retention of urine Poor historian pt with periods of confusion, daughter Eloise completed PAT interview - unaware of dates or many details of surgical history Hx of respiratory failure Osteoarthritis LBBB (left bundle branch block) Hypertension CKD (chronic kidney disease), stage III Chronic retention of urine Cardiac pacemaker in situ Bladder calculi History of anemia Hx of gout Sleep apnea cpap Chronic diarrhea Anxiety and depression Multiple myeloma (2018) current chemo tx monthly- IgG History of pulmonary embolism History of DVT (deep vein thrombosis) Pneumonia due to COVID-19 virus hx Atrial fibrillation with rapid ventricular response (05/2021) hx cardioversion [id number] placed jun 2021 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 HX GERD (gastroesophageal reflux disease) BPH without obstruction/lower urinary tract symptoms Carpal tunnel syndrome Restless leg syndrome Surgical History History of cystoscopy (12/14/23) wtih fulguration of prostate History of surgery (07/2019) Pleurx Catheter History of cardiac cath (2009) ? 2009 - unable to verify - no known hx stent(s)- unsure why History of revision of total knee arthroplasty x 4-5 additional surgeries ? side...d/t infection History of pacemaker (06/2021) ? type- checked January 07, 2024- follows with Patricia (11/19/23) History of thoracentesis (07/2019) No bacterial growth or malignancy Pleurx catheter placed July 2019. Removed September 2019 History of appendectomy (05/2019) History of esophagogastroduodenoscopy (EGD) (07/2022) History of colonoscopy (07/2022) History of tooth extraction ?date History of cataract surgery R/L - ?date History of total right hip arthroplasty x 2, left and right, ? date H/O sinus surgery unknown History of bilateral knee arthroplasty unk date Hx of cholecystectomy ? date Family History Father Heart disease Mother Diabetes Hypertension Brother Family hx of colon cancer Brother Family hx of colon cancer Social History Smoking Status: Never smoker Tobacco Type: Declines Second Hand Exposure: No; Do You Dip or Chew Tobacco: No; Tobacco Cessation Education Requested by Patient: No Hx Alcohol Use: No Hx Substance Use: No Preferred Language: Uzbek Communication Ability: Effective Communication Ability Comment: PT DAUGHTER FLO HE CONSENTS (PT LIMITED COMPREHENSION) Ophthalmic Surgeon Required: No Beliefs That Will Affect Care: None marital status: Current Living Situation: Spouse and Other Current Living Situation Comment: pt lives with and daughter How many Children do You have: 2 Other Information That Helps Us Care for You: No Feels Safe at Home: Yes Safety Concerns: Feels Safe At This Time Assistive Devices: CPAP and Walker Allergies Allergies Allergy/AdvReac Type Severity Reaction Status Date / Time colchicine AdvReac Unknown contraindicated Verified 04/19/25 10:55 due to kidney disease COVID-19 vaccine, mRNA, AdvReac Unknown probable Verified 04/19/25 10:55 [id number], L reaction: [From [place] ([facility])] throat swelling Home Meds Home Medications Medication Instructions Recorded Confirmed allopurinol 300 mg tablet 0 mg PO QAM 04/30/18 06/16/25 omeprazole 40 mg capsule,delayed 40 mg PO DAILYBB 04/30/18 06/16/25 release montelukast 10 mg tablet 10 mg PO QAM 05/07/21 06/16/25 cyanocobalamin (vitamin B-12) 1,000 mcg PO Q2D 01/23/23 06/16/25 1,000 mcg tablet triamcinolone acetonide 0.1 % 1 applic topical BID PRN flare up 01/23/23 06/16/25 topical cream acyclovir 400 mg tablet 400 mg PO BID 03/28/23 06/16/25 albuterol sulfate 90 mcg/actuation 2 puff inhalation QID PRN 03/28/23 06/16/25 aerosol inhaler Shortness Of Breath Or Wheezing potassium chloride 20 mEq 40 meq PO QAM 10/10/23 06/16/25 tablet,extended release levothyroxine 75 mcg tablet 75 mcg PO DAILYBB 12/08/23 06/16/25 metoprolol succinate 50 mg 50 mg PO BID 12/08/23 06/16/25 tablet,extended release 24 hr duloxetine 60 mg capsule,delayed 60 mg PO QAM 03/11/24 06/16/25 release trazodone 100 mg tablet 200 mg PO HS 03/11/24 06/16/25 atorvastatin 10 mg tablet 0 mg PO QAM 11/17/24 06/16/25 eplerenone 25 mg tablet 12.5 mg PO 3XWK 12/22/24 06/16/25 terazosin 2 mg capsule 2 mg PO HS 12/22/24 06/16/25 apixaban 2.5 mg tablet (Eliquis) 2.5 mg PO [facility] 01/05/25 06/16/25 calcium citrate 250 mg PO [facility] 01/05/25 06/16/25 duloxetine 30 mg capsule,delayed 30 mg PO QAM 01/05/25 06/16/25 release magnesium oxide 400 mg PO [facility] 01/05/25 06/16/25 torsemide 20 mg tablet 40 mg PO QAM 01/05/25 06/16/25 Previous Rx's Medication Instructions Recorded calcitriol 0.25 mcg capsule 0.25 mcg PO DAILY #90 caps 04/19/25 Results & Data (ED) Vital Signs Vital Signs - 24 hr 06/16/25 09:24 06/16/25 09:44 06/16/25 09:44 Temperature 37 C Temperature Source Oral Pulse Rate 90 Pulse Rate from SpO2 Sensor Respiratory Rate 24 Respiratory Effort / Characteristics Non-Labored Spontaneous Non-Labored Spontaneous Respiratory Depth Normal Normal Respiratory Pattern Regular Regular Blood Pressure 136/85 Blood Pressure Mean 102 Pulse Oximetry 93 Oxygen Delivery Method Room Air Room Air Room Air Sepsis Recent Fever Within 48 Hours No Sepsis New/Unexplained Change in Mental Status No Sepsis Action Taken by Nursing No Action Required 06/16/25 10:20 06/16/25 10:29 06/16/25 10:30 Temperature Temperature Source Pulse Rate 66 68 Pulse Rate from SpO2 Sensor 72 Respiratory Rate 19 19 Respiratory Effort / Characteristics Respiratory Depth Respiratory Pattern Blood Pressure 134/86 Blood Pressure Mean 110 Pulse Oximetry Oxygen Delivery Method Sepsis Recent Fever Within 48 Hours Sepsis New/Unexplained Change in Mental Status Sepsis Action Taken by Nursing 06/16/25 10:30 06/16/25 10:30 06/16/25 10:30 Temperature Temperature Source Pulse Rate Pulse Rate from SpO2 Sensor Respiratory Rate Respiratory Effort / Characteristics Respiratory Depth Respiratory Pattern Blood Pressure 134/86 134/86 134/86 Blood Pressure Mean 110 110 110 Pulse Oximetry Oxygen Delivery Method Sepsis Recent Fever Within 48 Hours Sepsis New/Unexplained Change in Mental Status Sepsis Action Taken by Nursing 06/16/25 10:30 06/16/25 10:32 06/16/25 10:41 Temperature Temperature Source Pulse Rate 66 60 Pulse Rate from SpO2 Sensor 63 62 Respiratory Rate 18 15 Respiratory Effort / Characteristics Respiratory Depth Respiratory Pattern Blood Pressure 134/86 Blood Pressure Mean 110 Pulse Oximetry 92 94 Oxygen Delivery Method Sepsis Recent Fever Within 48 Hours Sepsis New/Unexplained Change in Mental Status Sepsis Action Taken by Nursing 06/16/25 10:50 06/16/25 10:59 06/16/25 11:00 Temperature Temperature Source Pulse Rate 67 65 Pulse Rate from SpO2 Sensor Respiratory Rate 17 18 Respiratory Effort / Characteristics Respiratory Depth Respiratory Pattern Blood Pressure 135/76 Blood Pressure Mean 101 Pulse Oximetry Oxygen Delivery Method Sepsis Recent Fever Within 48 Hours Sepsis New/Unexplained Change in Mental Status Sepsis Action Taken by Nursing 06/16/25 11:00 06/16/25 11:00 06/16/25 11:00 Temperature Temperature Source Pulse Rate Pulse Rate from SpO2 Sensor Respiratory Rate Respiratory Effort / Characteristics Respiratory Depth Respiratory Pattern Blood Pressure 135/76 135/76 135/76 Blood Pressure Mean 101 101 101 Pulse Oximetry Oxygen Delivery Method Sepsis Recent Fever Within 48 Hours Sepsis New/Unexplained Change in Mental Status Sepsis Action Taken by Nursing 06/16/25 11:00 06/16/25 11:02 06/16/25 11:12 Temperature Temperature Source Pulse Rate 63 62 Pulse Rate from SpO2 Sensor 64 62 Respiratory Rate 21 Respiratory Effort / Characteristics Respiratory Depth Respiratory Pattern Blood Pressure 135/76 Blood Pressure Mean 101 Pulse Oximetry 90 93 Oxygen Delivery Method Sepsis Recent Fever Within 48 Hours Sepsis New/Unexplained Change in Mental Status Sepsis Action Taken by Nursing 06/16/25 11:21 06/16/25 11:28 06/16/25 11:30 Temperature Temperature Source Pulse Rate 63 64 67 Pulse Rate from SpO2 Sensor 63 64 Respiratory Rate 18 13 Respiratory Effort / Characteristics Respiratory Depth Respiratory Pattern Blood Pressure Blood Pressure Mean Pulse Oximetry 90 92 Oxygen Delivery Method Sepsis Recent Fever Within 48 Hours Sepsis New/Unexplained Change in Mental Status Sepsis Action Taken by Nursing 06/16/25 11:30 06/16/25 11:30 06/16/25 11:30 Temperature Temperature Source Pulse Rate Pulse Rate from SpO2 Sensor Respiratory Rate Respiratory Effort / Characteristics Respiratory Depth Respiratory Pattern Blood Pressure 119/74 119/74 119/74 Blood Pressure Mean 87 87 87 Pulse Oximetry Oxygen Delivery Method Sepsis Recent Fever Within 48 Hours Sepsis New/Unexplained Change in Mental Status Sepsis Action Taken by Nursing 06/16/25 11:30 06/16/25 11:30 06/16/25 11:42 Temperature Temperature Source Pulse Rate 69 Pulse Rate from SpO2 Sensor 68 Respiratory Rate Respiratory Effort / Characteristics Respiratory Depth Respiratory Pattern Blood Pressure 119/74 119/74 Blood Pressure Mean 87 87 Pulse Oximetry 91 Oxygen Delivery Method Sepsis Recent Fever Within 48 Hours Sepsis New/Unexplained Change in Mental Status Sepsis Action Taken by Nursing 06/16/25 11:51 06/16/25 12:00 06/16/25 12:00 Temperature Temperature Source Pulse Rate 70 Pulse Rate from SpO2 Sensor 69 Respiratory Rate 19 Respiratory Effort / Characteristics Respiratory Depth Respiratory Pattern Blood Pressure 126/75 126/75 Blood Pressure Mean 82 82 Pulse Oximetry Oxygen Delivery Method Sepsis Recent Fever Within 48 Hours Sepsis New/Unexplained Change in Mental Status Sepsis Action Taken by Nursing 06/16/25 12:00 06/16/25 12:00 06/16/25 12:00 Temperature Temperature Source Pulse Rate Pulse Rate from SpO2 Sensor Respiratory Rate Respiratory Effort / Characteristics Respiratory Depth Respiratory Pattern Blood Pressure 126/75 126/75 126/75 Blood Pressure Mean 82 82 82 Pulse Oximetry Oxygen Delivery Method Sepsis Recent Fever Within 48 Hours Sepsis New/Unexplained Change in Mental Status Sepsis Action Taken by Nursing 06/16/25 12:00 06/16/25 12:27 06/16/25 12:30 Temperature Temperature Source Pulse Rate 68 81 71 Pulse Rate from SpO2 Sensor 64 Respiratory Rate 20 22 23 Respiratory Effort / Characteristics Respiratory Depth Respiratory Pattern Blood Pressure Blood Pressure Mean Pulse Oximetry 90 Oxygen Delivery Method Sepsis Recent Fever Within 48 Hours Sepsis New/Unexplained Change in Mental Status Sepsis Action Taken by Nursing 06/16/25 15:26 Temperature Temperature Source Pulse Rate 67 Pulse Rate from SpO2 Sensor Respiratory Rate Respiratory Effort / Characteristics Respiratory Depth Respiratory Pattern Blood Pressure Blood Pressure Mean Pulse Oximetry Oxygen Delivery Method Sepsis Recent Fever Within 48 Hours Sepsis New/Unexplained Change in Mental Status Sepsis Action Taken by Nursing Laboratory Data Attestation: I reviewed the patient's lab results. 06/17/25 06:37 06/17/25 06:37 Lab Results 06/16/25 06/16/25 Range/Units 10:16 14:10 WBC 7.45 (4.8-10.8) K/ul RBC 4.44 L (4.70-6.10) M/uL Hgb 13.1 L (14.0-18.0) g/dL Hct 39.2 L (42.0-52.0) % MCV 88.3 (80.0-100.0) fL MCH 29.5 (25.0-34.0) pg MCHC 33.4 (32.0-36.0) g/dL RDW Std Deviation 49.4 H (36.4-46.3) fL RDW Coeff of [place] 15.2 H (11.5-14.5) % Plt Count 191 (130-400) K/uL MPV 11.4 (9.4-12.4) fL Immature Gran % (Auto) 0.3 % Neut % (Auto) 63.4 % Lymph % (Auto) 22.0 % [place] % (Auto) 9.4 % Eos % (Auto) 4.2 % Baso % (Auto) 0.7 % Neut # (Auto) 4.73 (1.40-6.50) K/uL Lymph # (Auto) 1.64 (1.20-3.40) K/uL [place] # (Auto) 0.70 H (0.11-0.59) K/uL Eos # (Auto) 0.31 (0.00-0.50) K/uL Baso # (Auto) 0.05 (0.00-0.20) K/uL Immature Gran # (Auto) 0.02 (0.01-0.20) K/uL PT 10.9 (9.0-12.0) Seconds INR 1.0 (0.9-1.1) Sodium 141 (136-145) mmol/L Potassium 3.3 L (3.5-5.1) mmol/L Chloride 97 L (98-107) mmol/L Carbon Dioxide 34 H (21-32) mmol/L Anion Gap 10 (3-11) BUN 24 H (6-23) mg/dl Creatinine 2.02 H (0.6-1.4) mg/dl Est Cr Clr Drug Dosing 37.0 ml/min eGFR 31.72 BUN/Creatinine Ratio 11.9 (10-20) Glucose 120 H (70-99(Fasting)) mg/dl Calcium 7.5 L (8.6-10.3) mg/dl Phosphorus 4.4 (2.5-4.9) mg/dl Magnesium 1.7 (1.7-2.4) mg/dl Total Bilirubin 0.8 (0.2-1.0) mg/dl AST 16 (13-39) U/L ALT 12 (7-52) U/L Alkaline Phosphatase 66 (34-104) U/L Troponin I High Sens 9.5 (0-20) pg/ml B-Natriuretic Peptide 108 H (0-100) pg/ml Total Protein 5.7 L (6.0-8.3) gm/dl Albumin 3.5 (3.4-5.0) gm/dl Globulin 2.2 L (2.5-4.0) gm/dl Albumin/Globulin Ratio 1.6 (0.9-2) Lipase 16 (11-82) U/L TSH 6.373 H (0.300-4.500) uIu/ml Free T4 1.08 (0.61-1.60) ng/dl Urine Color Yellow Urine Appearance Clear (Clear) Urine pH 5.5 (4.5-7.5) Ur Specific [place] 1.010 (1.000-1.030) Urine Protein Negative (Negative) Urine Glucose (UA) Negative (Negative) Urine Ketones Negative (Negative) Urine Blood Negative (Negative) Urine Nitrite Negative (Negative) Urine Bilirubin Negative (Negative) Urine Urobilinogen Negative (Negative) Ur Leukocyte Esterase Negative (Negative) Urine Comment Administered Medications [facility] ([facility]ol 300 Mg Tab) [facility] [place]: 07/17/25 08:59 Last Admin: 06/17/25 07:54 Dose: 300 mg Documented By: ijw Apixaban (Apixaban 2.5 Mg Tab) 2.5 mg PO [facility] Stop: 07/16/25 20:59 Last Admin: 06/17/25 07:54 Dose: 2.5 mg Documented By: alton Admin: 06/16/25 20:14 Dose: 2.5 mg Documented By: SAAD Atorvastatin Calcium (Atorvastatin 10 Mg Tab) 5 mg PO [facility] Stop: 07/17/25 08:59 Last Admin: 06/17/25 07:54 Dose: 5 mg Documented By: alton Duloxetine HCl (Duloxetine Hcl 30 Mg Cap) 30 mg PO [facility] Stop: 07/17/25 08:59 Last Admin: 06/17/25 07:53 Dose: 30 mg Documented By: alton Duloxetine HCl (Duloxetine Hcl 60 Mg Cap) 60 mg PO [facility] Stop: 07/17/25 08:59 Last Admin: 06/17/25 07:53 Dose: 60 mg Documented By: alton Levothyroxine Sodium (Levothyroxine Sodium 75 Mcg Tablet) [facility]: 07/17/25 06:29 Last Admin: 06/17/25 05:45 Dose: 75 mcg Documented By: BEBETO Metoprolol Succinate (Metoprolol Succ 50mg Ext Rel Tab) 50 mg PO BID COUNT INCLUDES THE [facility] Stop: 07/16/25 20:59 Last Admin: 06/17/25 07:53 Dose: 50 mg Documented By: alton Admin: 06/16/25 20:14 Dose: 50 mg Documented By: SAAD Miscellaneous (Order Awaiting Action--(Eplerenone 25 Mg Tablet)) 1 each N/A QS COUNT INCLUDES THE [facility] Stop: 07/17/25 00:00 Last Admin: 06/17/25 10:40 Dose: Not Given Documented By: alton Admin: 06/17/25 00:37 Dose: Not Given Documented By: SAAD Montelukast Sodium (Montelukast Sodium 10 Mg Tablet) 10 mg PO [facility] Stop: 07/17/25 08:59 Last Admin: 06/17/25 07:54 Dose: 10 mg Documented By: alton Pantoprazole Sodium (Pantoprazole 40 Mg Tab) [facility]; Protocol Stop: 07/17/25 06:29 Last Admin: 06/17/25 05:45 Dose: 40 mg Documented By: BEBETO Potassium Chloride (Potassium Chloride Crtab 20 Meq Tabcr) 40 meq PO QAM COUNT INCLUDES THE [facility] Stop: 07/17/25 08:59 Last Admin: 06/17/25 10:40 Dose: 40 meq Documented By: alton Terazosin HCl (Terazosin Hcl 1 Mg Cap) 2 mg PO HS COUNT INCLUDES THE [facility] Stop: 07/16/25 20:59 Last Admin: 06/16/25 20:14 Dose: 2 mg Documented By: BR Trazodone HCl (Trazodone Hcl 100 Mg Tab) 200 mg PO HS COUNT INCLUDES THE [facility] Stop: 07/16/25 20:59 Last Admin: 06/16/25 20:14 Dose: 200 mg Documented By: BR Discontinued Medications Bumetanide 2 mg/ Syringe 8 mls @ 4 mls/min IV ONE ONE Stop: 06/16/25 11:51 Last Admin: 06/16/25 12:32 Dose: 4 mls/min Documented By: sak Imaging Data Radiologist's Impression: Chest X-Ray 06/16/25 09:45 SINGLE VIEW CHEST CLINICAL HISTORY: Chest pain FINDINGS: An AP, portable, upright chest radiograph is compared to study dated 01/05/2025 and correlated with chest CT dated 03/25/2024. A 2-lead cardiac pacemaker is unchanged in position. The heart is enlarged. There is pulmonary vascular congestion with mild interstitial edema. Small pleural effusions are suspected. There is bibasilar atelectasis. No pneumothorax is seen. The skeletal structures are osteopenic. The bony thorax is grossly intact. Degenerative change is seen in the shoulders. IMPRESSION: 1. Cardiomegaly with evidence of congestive failure and mild pulmonary edema. Radiographic follow-up to resolution is recommended. 2. Suspect small pleural effusions. ACT 112: Negative or not required by law. Electronically signed by: Shahram Hastings M.D. 06/16/2025 10:12 AM Discharge Plan Visit Data Chief Complaint: Shortness of Breath/Dyspnea Stated Complaint: SOB ED Provider: Niraj Mahmood Discharge Problem: CHF (congestive heart failure), Atrial fibrillation, Shortness of breath at rest, Pulmonary edema Patient Disposition: Admitted As Inpatient Condition: Fair Discharge Instructions Interventions: ED Discharge Assessment Last Done: 06/16/25 18:32 Discharge Problem: CHF (congestive heart failure) Qualifiers: Heart failure type: unspecified Heart failure chronicity: acute on chronic Q ualified Code(s): I50.9 - Heart failure, unspecified Atrial fibrillation Qualifiers: Atrial fibrillation type: unspecified Qualified Code(s): I48.91 - Unspecified atrial fibrillation Pulmonary edema Qualifiers: Chronicity: acute Qualified Code(s): J81.0 - Acute pulmonary edema
--- NOTE | 2025-06-16 10:13 | XRay Report ---
SINGLE VIEW CHEST CLINICAL HISTORY: Chest pain FINDINGS: An AP, portable, upright chest radiograph is compared to study dated 01/05/2025 and correlate d with chest CT dated 03/25/2024. A 2-lead cardiac pacemaker is unchanged in position. The heart is en larged. There is pulmonary vascular congestion with mild interstitial edema. Small pleural effusions are suspected. There is bibasilar atelectasis. No pneumothorax is seen. The skeletal structures are o steopenic. The bony thorax is grossly intact. Degenerative change is seen in the shoulders. IMPRESSION: 1. Cardiomegaly with evidence of congestive failure and mild pulmonary edema. Radiographic follow-up to resolution is recommended. 2. Suspect small pleural effusions. ACT 112: Negative or not required by law. Electronically signed by: Shahram Hastings M.D. 06/16/2025 10:12 AM
[2025-06-16 10:43] LABS: Hematocrit (blood only) 39.2 % (42.0-52.0); Hemoglobin 13.1 g/dL (14.0-18.0); Immature Granulocytes # (auto) 0.02 K/uL (0.01-0.20); Immature Granulocytes % (auto) 0.3 %; Mean Corpuscular Hemoglobin 29.5 pg (25.0-34.0); Mean Corpuscular Volume 88.3 fL (80.0-100.0); Platelet Count 191 K/uL (130-400); RDW Standard Deviation 49.4 fL (36.4-46.3); Red Blood Count 4.44 M/uL (4.70-6.10); White Blood Count 7.45 K/ul (4.8-10.8)
[2025-06-16 10:53] LABS: INR 1.0 (0.9-1.1); Prothrombin Time 10.9 Seconds (9.0-12.0)
[2025-06-16 11:14] LABS: Alanine Aminotransferase 12.0 U/L (7-52); Albumin Globulin Ratio 1.6 (0.9-2); Albumin Level 3.5 gm/dl (3.4-5.0); Alkaline Phosphatase 66.0 U/L (34-104); Anion Gap 10.0 (3-11); Bilirubin,Total 0.8 mg/dl (0.2-1.0); Blood Urea Nitrogen 24.0 mg/dl (6-23); Calcium 7.5 mg/dl (8.6-10.3); Carbon Dioxide 34.0 mmol/L (21-32); Chloride 97.0 mmol/L (98-107); Creatinine Clr Calc Pharmacy 37.0 ml/min; Globulin 2.2 gm/dl (2.5-4.0); Glucose 120.0 mg/dl (70-99(Fasting)); Lipase 16.0 U/L (11-82); Magnesium 1.7 mg/dl (1.7-2.4); Potassium 3.3 mmol/L (3.5-5.1); Sodium 141.0 mmol/L (136-145); Total Protein 5.7 gm/dl (6.0-8.3)
[2025-06-16 11:29] LABS: Thyroid Stimulating Hormone 6.373 uIu/ml (0.300-4.500)
--- NOTE | 2025-06-16 12:00 | Electrocardiogram Report ---
Test Reason : Blood Pressure : */* mmHG Vent. Rate : 71 BPM Atrial Rate : * BPM P-R Int : * ms QRS Dur : 146 ms QT Int : 458 ms P-R-T Axes : * -52 120 degrees QTcB Int : 497 ms Atrial fibrillation with frequent ventricular-paced complexes Left axis deviation Left bundle branch block Abnormal ECG When compared with ECG of 05-Jan-2025 15:04, Electronic ventricular pacemaker is now Present Confirmed by Garcia Burgess ([id number]) on 06/16/2025 12:00:25 PM Referred By: Confirmed By: Garcia Burgess
[2025-06-16 12:05] LABS: T4 Free Thyroxine 1.08 ng/dl (0.61-1.60)
[2025-06-16] MEDS: BUMETANIDE 2 MG in SYRINGE 0 ML IV ONE (12:32)
--- NOTE | 2025-06-16 13:34 | History & Physical Report ---
Date of Service June 16, 2025 Assessment & Plan (1) Acute exacerbation of chronic heart failure: (2) Chronic heart failure with preserved ejection fraction (HFpEF): (3) Dyspnea: (4) Sleep apnea treated with continuous positive airway pressure (CPAP): (5) Cardiac pacemaker in situ: (6) Atrial fibrillation: (7) CKD (chronic kidney disease), stage III: (8) ASCVD (arteriosclerotic cardiovascular disease): Plan Mr. Dolan is an 85yo gentleman with PMH of HFpEF, A-fib, NAHEED on CPAP, sick sinus syndrome with pacemaker, chronic LBBB, CKD stage III, HTN, HLD who presents to the emergency department for shortness of breath. S/p IV Bumex in ED and notes improvement of breathing. He is currently being managed for acute heart failure exacerbation. #Heart Failure Exacerbation #HFpEF #Dyspnea EKG without overt acute ischemia. CXR demonstrates pulmonary edema and small pleural effusions. BNP 108 (BMI may lower BNP), Trop 9 -hold diuretic this evening as pt took home dose of torsemide this AM -continue eplerenone 12.5mg q72h -continue metoprolol succinate 50mg bid -JOSE R/ARB deferred due to recurrent FELI as per outpatient nephrology note -additional GDMT held due to soft BPs -check AM labs #Chronic Atrial Fibrillation currently rate controlled -continue Eliquis bid for anticoagulation -continue rate control with metoprolol #NAHEED -continue CPAP at night #HTN -continue meds as above #HLD -continue home atorvastatin #Hypothyroidism -TSH 6.3, T4 wnl -continue levothyroxine 75mcg daily #CKD -construction controller 2 (baseline 1.8-2) -will monitor -morning labs Dispo: med tele Diet: heart healthy, low sodium Code status: Pt requests full code DVT prophylaxis: eliquis History of Present Illness Chief Complaint: SOB Primary Care Provider: ASHER Eddy Mr. Dolan is an 85yo gentleman with PMH of HFpEF, A-fib, NAHEED on CPAP, sick sinus syndrome with pacemaker, CKD stage III, HTN, HLD who presents to the emergency department for shortness of breath. He was apparently well until two days ago when he noticed that he was more short of breath during exertion than usual. His , who is at bedside, state she noticed that his hand and legs were swelling during that time as well. His shortness of breath also occurs when laying flat. He received IV Bumex in the ED and noticed improvement of his dyspnea. He denies any fever, chills, cough, sick contacts, wheezing, CP, PND, bendopnea, generalized pain, trauma/falls, N/V, abdominal pain, or complaints. Allergies Allergy/AdvReac Type Severity Reaction Status Date / Time colchicine AdvReac Unknown contraindicated Verified 04/19/25 10:55 due to kidney disease COVID-19 vaccine, mRNA, AdvReac Unknown probable Verified 04/19/25 10:55 [id number], L reaction: [From [facility] ([facility])] throat swelling Home Medications Medication Instructions Recorded Confirmed Type allopurinol 300 mg tablet 0 mg PO QAM 04/30/18 06/16/25 History omeprazole 40 mg capsule,delayed 40 mg PO DAILYBB 04/30/18 06/16/25 History release montelukast 10 mg tablet 10 mg PO QAM 05/07/21 06/16/25 History cyanocobalamin (vitamin B-12) 1,000 mcg PO Q2D 01/23/23 06/16/25 History 1,000 mcg tablet triamcinolone acetonide 0.1 % 1 applic topical BID PRN flare up 01/23/23 06/16/25 History topical cream acyclovir 400 mg tablet 400 mg PO BID 03/28/23 06/16/25 History albuterol sulfate 90 mcg/actuation 2 puff inhalation QID PRN 03/28/23 06/16/25 History aerosol inhaler Shortness Of Breath Or Wheezing potassium chloride 20 mEq 40 meq PO QAM 10/10/23 06/16/25 History tablet,extended release levothyroxine 75 mcg tablet 75 mcg PO DAILYBB 12/08/23 06/16/25 History metoprolol succinate 50 mg 50 mg PO BID 12/08/23 06/16/25 History tablet,extended release 24 hr duloxetine 60 mg capsule,delayed 60 mg PO QAM 03/11/24 06/16/25 History release trazodone 100 mg tablet 200 mg PO HS 03/11/24 06/16/25 History atorvastatin 10 mg tablet 0 mg PO QAM 11/17/24 06/16/25 History eplerenone 25 mg tablet 12.5 mg PO 3XWK 12/22/24 06/16/25 History terazosin 2 mg capsule 2 mg PO HS 12/22/24 06/16/25 History apixaban 2.5 mg tablet (Eliquis) 2.5 mg PO AMHS 01/05/25 06/16/25 History calcium citrate 250 mg PO AMHS 01/05/25 06/16/25 History duloxetine 30 mg capsule,delayed 30 mg PO QAM 01/05/25 06/16/25 History release magnesium oxide 400 mg PO AMHS 01/05/25 06/16/25 History torsemide 20 mg tablet 40 mg PO QAM 01/05/25 06/16/25 History calcitriol 0.25 mcg capsule 0.25 mcg PO DAILY #90 caps 04/19/25 06/16/25 Rx Past Med/Surg History Problem List (Updated 06/16/25 @ 14:47 by Wade Young MD) Acute exacerbation of chronic heart failure Dyspnea Hypocalcemia (Acute) Hypomagnesemia (Acute) Hypoxia (Acute) Chronic heart failure with preserved ejection fraction (HFpEF) Acute hypoxemic respiratory failure due to COVID-19 Hypoxia (Acute) COVID-19 (Acute) Sleep apnea treated with continuous positive airway pressure (CPAP) Chronic atrial fibrillation Acute respiratory acidosis (Acute) Elevated brain natriuretic peptide (BNP) level (Acute) Pulmonary edema (Acute) Chronic retention of urine (Chronic) Multiple myeloma (Acute) Bladder calculi (Acute) Cardiac pacemaker in situ Monoclonal paraproteinemia Respiratory failure with hypoxia 07/15/21 Anemia (Acute) History of pulmonary embolism Pleural effusion, left 05/07/21 Pericardial effusion 05/07/21 Monoclonal B-cell lymphocytosis Atrial fibrillation BPH (benign prostatic hyperplasia) Morbid (severe) obesity due to excess calories CKD (chronic kidney disease), stage III ASCVD (arteriosclerotic cardiovascular disease) (Chronic) cardiac cath 2009 - non obstructive disease Osteoarthrosis (Chronic) Hypertension Major depression (Chronic) Obstructive sleep apnea on CPAP Insomnia (Chronic) Medical History Poor historian pt with periods of confusion, daughter Shady completed PAT interview - unaware of dates or many details of surgical history Hx of respiratory failure Osteoarthritis LBBB (left bundle branch block) Hypertension CKD (chronic kidney disease), stage III Chronic retention of urine Cardiac pacemaker in situ Bladder calculi History of anemia Hx of gout Sleep apnea cpap Chronic diarrhea Anxiety and depression Multiple myeloma (2018) current chemo tx monthly- IgG History of pulmonary embolism History of DVT (deep vein thrombosis) Pneumonia due to COVID-19 virus hx Atrial fibrillation with rapid ventricular response (05/2021) hx cardioversion [id number] placed jun 2021 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 HX GERD (gastroesophageal reflux disease) BPH without obstruction/lower urinary tract symptoms Carpal tunnel syndrome Restless leg syndrome Surgical History History of cystoscopy (12/14/23) wtih fulguration of prostate History of surgery (07/2019) Pleurx Catheter History of cardiac cath (2009) ? 2009 - unable to verify - no known hx stent(s)- unsure why History of revision of total knee arthroplasty x 4-5 additional surgeries ? side...d/t infection History of pacemaker (06/2021) ? type- checked January 07, 2024- follows with Patricia (11/19/23) History of thoracentesis (07/2019) No bacterial growth or malignancy Pleurx catheter placed July 2019. Removed September 2019 History of appendectomy (05/2019) History of esophagogastroduodenoscopy (EGD) (07/2022) History of colonoscopy (07/2022) History of tooth extraction ?date History of cataract surgery R/L - ?date History of total right hip arthroplasty x 2, left and right, ? date H/O sinus surgery unknown History of bilateral knee arthroplasty unk date Hx of cholecystectomy ? date Family History Father Heart disease Mother Diabetes Hypertension Brother Family hx of colon cancer Brother Family hx of colon cancer Social History Smoking Status: Never smoker Second Hand Exposure: No; Do You Dip or Chew Tobacco: No; Hx Alcohol Use: No Hx Substance Use: No Preferred Language: German Communication Ability: Effective Communication Ability Comment: PT DAUGHTER SHADY DAY, SIGNS CONSENTS (PT LIMITED COMPREHENSION) Receptionist Nurse Required: No Beliefs That Will Affect Care: None marital status: Current Living Situation: Family Current Living Situation Comment: Zoë and daughter Carolyn How many Children do You have: 2 Feels Safe at Home: Yes Assistive Devices: CPAP, Denture - Upper and Walker Review of Systems Review of Systems: per HPI Physical Exam Physical Exam: GA: well groomed, well nourished in no apparent distress. Obese habitus. AAOx3 HEENT: head normocephalic, atraumatic. EOMI RESP: no tachypnea, normal chest wall mechanics, minor rales b/l left worse than right CARDIOVASCULAR: S1 and S2 heard. No murmurs, rubs, or gallops. Radial pulses 2+ b/l irregularly irregular GI: Normoactive bowel sounds, no tenderness or masses felt to palpation MSK: no gross abnormalities or focal deficits SKIN: warm, dry, 2+ edema on legs at shins PSYCH: appropriate mood and affect NEURO: no focal deficits. speech fluent Results & Data Results & Data Vital Signs (Past 12 Hours) Vital Signs Temp Pulse Resp BP Pulse Ox O2 Del Method 06/16/25 12:30 71 23 06/16/25 12:27 81 22 06/16/25 12:00 68 20 90 06/16/25 12:00 126/75 06/16/25 12:00 126/75 06/16/25 12:00 126/75 06/16/25 12:00 126/75 06/16/25 12:00 126/75 06/16/25 11:51 70 19 06/16/25 11:42 69 91 06/16/25 11:30 119/74 06/16/25 11:30 119/74 06/16/25 11:30 119/74 06/16/25 11:30 119/74 06/16/25 11:30 119/74 06/16/25 11:30 67 13 92 06/16/25 11:28 64 06/16/25 11:21 63 18 90 06/16/25 11:12 62 21 93 06/16/25 11:02 63 90 06/16/25 11:00 135/76 06/16/25 11:00 135/76 06/16/25 11:00 135/76 06/16/25 11:00 135/76 06/16/25 11:00 135/76 06/16/25 10:59 65 18 06/16/25 10:50 67 17 06/16/25 10:41 60 15 94 06/16/25 10:32 66 18 92 06/16/25 10:30 134/86 06/16/25 10:30 134/86 06/16/25 10:30 134/86 06/16/25 10:30 134/86 06/16/25 10:30 134/86 06/16/25 10:29 68 19 06/16/25 10:20 66 19 06/16/25 09:44 Room Air 06/16/25 09:44 Room Air 06/16/25 09:24 37 C 90 24 136/85 93 Room Air Supervising Physician Co-Signing Physician Notes I personally examined the patient and verified miller points of history and exam, discussed case, and agree with decision making and plan documented by Dr. Young. Patient is an 85-year-old male with complex past medical history pertinent for CAD, congestive heart failure, left bundle branch block, atrial fibrillation, sick sinus syndrome s/p pacemaker, pulmonary embolism, immunoglobulin deficiency, multiple myeloma, NAHEED, CKDIII, hypothyroidism, prediabetes, and morbid obesity presenting to hospital for worsening dyspnea and admitted for suspected heart failure exacerbation. Patient does not check weights at home reliably, last weight on file 134 kg currently 145.4 kg. Patient does report that he is compliant with his CPAP. Patient is obese, non diaphoretic, conjunctiva clear, mucosa moist, shallow breathing diminished breath sounds bilaterally with trace rales bilateral lower foster, heart with distant sounds but appear regular rate and rhythm, no murmur appreciated, bowel sounds present and no tenderness in the abdomen, bilateral lower extremities +2 edema mid tibial surface. CXR with evidence CHF and mild pulmonary edema with suspicion of small pleural effusions. Patient intermittently hypoxic to 80s but this improves with deep breathing, suspect component of obesity hypoventilation, incentive spirometer provided to patient, supplement O2 as needed. Troponin negative, BNP elevated. Agree with diuresis, daily weights, monitoring I's and O's. Resident Activity Tracking Resident Involvement: Resident Care Provided Care Provided: Adult Hospital Medicine (6) Atrial fibrillation Atrial fibrillation type: paroxysmal Qualified Code(s): I48.0 - Paroxysmal atrial fibrillation (7) CKD (chronic kidney disease), stage III Chronic kidney disease stage 3 subtype: stage 3b (GFR 30-44) Qualified Code(s): N18.32 - Chronic kidney disease, stage 3b
[2025-06-16 14:23] LABS: Appearance Urine Clear (Clear); Glucose Urine UA Negative (Negative)
[2025-06-16] MEDS ORDERED: ACETAMINOPHEN 325 MG TAB PO PRN (19:16)
[2025-06-16] MEDS ORDERED: MELATONIN 3 MG TAB PO PRN (19:16)
[2025-06-16] MEDS ORDERED: ALUMINUM/MAGNESIUM SUSP 30 ML UDC PO PRN (19:16)
[2025-06-16] MEDS ORDERED: ONDANSETRON INJ 2 MG/ML 2 ML VIAL IV PRN (19:16)
[2025-06-16] MEDS ORDERED: POLYETHYLENE (MIRALAX) 17 GM PACK PO PRN (19:16)
[2025-06-16] MEDS ORDERED: ALBUTEROL HFA 8 GM INHALER INH PRN (19:16)
[2025-06-16] MEDS: APIXABAN 2.5 MG TAB PO SCH (20:14)
[2025-06-16] MEDS: TERAZOSIN HCL 1 MG CAP PO SCH (20:14)
[2025-06-16] MEDS: METOPROLOL SUCC 50MG EXT REL TAB PO SCH (20:14)
[2025-06-17 02:22] VITALS: RESP 18
[2025-06-17] MEDS: LEVOTHYROXINE SODIUM 75 MCG TABLET PO SCH (05:45)
--- NOTE | 2025-06-17 06:48 | Hospitalist Progress Note ---
Date of Service June 17, 2025 Assessment & Plan (1) Acute exacerbation of chronic heart failure: (2) Chronic heart failure with preserved ejection fraction (HFpEF): (3) Dyspnea: (4) Sleep apnea treated with continuous positive airway pressure (CPAP): (5) Cardiac pacemaker in situ: (6) Atrial fibrillation: (7) CKD (chronic kidney disease), stage III: (8) ASCVD (arteriosclerotic cardiovascular disease): Plan Mr. Dolan is an 85yo gentleman with PMH of HFpEF, A-fib, NAHEED on CPAP, sick sinus syndrome with pacemaker, chronic LBBB, CKD stage III, HTN, HLD who presents to the emergency department for shortness of breath. S/p IV Bumex in ED and notes improvement of breathing. He is currently being managed for acute heart failure exacerbation. #Heart Failure Exacerbation #HFpEF #Dyspnea EKG without overt acute ischemia. CXR demonstrates pulmonary edema and small pleural effusions. BNP 108 (BMI may lower BNP), Trop 9 -hold diuretic this evening as pt took home dose of torsemide this AM -continue eplerenone 12.5mg q72h -continue metoprolol succinate 50mg bid -JOSE R/ARB deferred due to recurrent FELI as per outpatient nephrology note -additional GDMT held due to soft BPs -check AM labs #Chronic Atrial Fibrillation currently rate controlled -continue Eliquis bid for anticoagulation -continue rate control with metoprolol #NAHEED -continue CPAP at night #HTN -continue meds as above #HLD -continue home atorvastatin #Hypothyroidism -TSH 6.3, T4 wnl -continue levothyroxine 75mcg daily #CKD -cigarette roller 2 (baseline 1.8-2) -will monitor -morning labs Dispo: med tele Diet: heart healthy, low sodium Code status: Pt requests full code DVT prophylaxis: eliquis Admission and Anticipated Discharge Date Admission Date: June 16, 2025 Subjective No overnight events. Pt seen and examined today at bedside. He feels a lot better today. States his breathing and swelling resolved. Denies fever, chills, CP, SOB, N/V, abdominal, or trouble urinating. Review of Systems Review of Systems: per HPI Physical Exam Physical Exam: GA: well groomed, well nourished in no apparent distress. Obese habitus. AAOx3 HEENT: head normocephalic, atraumatic. EOMI RESP: no tachypnea, normal chest wall mechanics, minor rales b/l left worse than right CARDIOVASCULAR: S1 and S2 heard. No murmurs, rubs, or gallops. Radial pulses 2+ b/l irregularly irregular GI: Normoactive bowel sounds, no tenderness or masses felt to palpation MSK: no gross abnormalities or focal deficits SKIN: warm, dry, 2+ edema on legs at shins PSYCH: appropriate mood and affect NEURO: no focal deficits. speech fluent Results & Data Results & Data Vital Signs (Past 12 Hours) Vital Signs Temp Pulse Pulse Pulse Resp BP Pulse Ox 06/17/25 02:21 36.4 C L 65 18 99/62 L 94 06/16/25 22:04 36.6 C 69 16 125/80 95 06/16/25 21:30 66 19 92 06/16/25 19:25 36.4 C L 82 18 124/64 94 06/16/25 19:10 06/16/25 19:10 36.4 C L 82 18 124/64 94 O2 Del Method FiO2 06/17/25 02:21 Room Air 06/16/25 22:04 Room Air 06/16/25 21:30 21 06/16/25 19:25 Room Air 06/16/25 19:10 Room Air 06/16/25 19:10 Room Air (6) Atrial fibrillation Atrial fibrillation type: paroxysmal Qualified Code(s): I48.0 - Paroxysmal atrial fibrillation (7) CKD (chronic kidney disease), stage III Chronic kidney disease stage 3 subtype: stage 3b (GFR 30-44) Qualified Code(s): N18.32 - Chronic kidney disease, stage 3b
[2025-06-17 07:22] LABS: Hematocrit (blood only) 42.3 % (42.0-52.0); Hemoglobin 13.8 g/dL (14.0-18.0); Immature Granulocytes # (auto) 0.03 K/uL (0.01-0.20); Immature Granulocytes % (auto) 0.4 %; Mean Corpuscular Hemoglobin 29.6 pg (25.0-34.0); Mean Corpuscular Volume 90.6 fL (80.0-100.0); Platelet Count 205 K/uL (130-400); RDW Standard Deviation 50.4 fL (36.4-46.3); Red Blood Count 4.67 M/uL (4.70-6.10); White Blood Count 7.09 K/ul (4.8-10.8)
[2025-06-17 07:42] LABS: Alanine Aminotransferase 12.0 U/L (7-52); Albumin Globulin Ratio 1.7 (0.9-2); Albumin Level 3.9 gm/dl (3.4-5.0); Alkaline Phosphatase 72.0 U/L (34-104); Anion Gap 11.0 (3-11); Bilirubin,Total 0.8 mg/dl (0.2-1.0); Blood Urea Nitrogen 24.0 mg/dl (6-23); Calcium 7.9 mg/dl (8.6-10.3); Carbon Dioxide 34.0 mmol/L (21-32); Chloride 97.0 mmol/L (98-107); Creatinine Clr Calc Pharmacy 34.3 ml/min; Globulin 2.3 gm/dl (2.5-4.0); Glucose 141.0 mg/dl (70-99(Fasting)); Potassium 3.2 mmol/L (3.5-5.1); Sodium 142.0 mmol/L (136-145); Total Protein 6.2 gm/dl (6.0-8.3)
[2025-06-17] MEDS: MONTELUKAST SODIUM 10 MG TABLET PO SCH (07:54)
[2025-06-17] MEDS: ATORVASTATIN 10 MG TAB PO SCH (07:54)
[2025-06-17] MEDS ORDERED: ATORVASTATIN 10 MG TAB PO SCH (09:00)
[2025-06-17] MEDS: POTASSIUM CHLORIDE CRTAB 20 MEQ TABCR PO SCH (10:40)
[2025-06-17 11:16] VITALS: BP 149/84; TEMP 97.3; O2SAT 96
[2025-06-17 12:48] VITALS: PULSE 65
--- NOTE | 2025-06-17 14:31 | Discharge Summary ---
Date of Service June 17, 2025 Admission HPI Per Admitting Provider Mr. Dolan is an 85yo gentleman with PMH of HFpEF, A-fib, NAHEED on CPAP, sick sinus syndrome with pacemaker, CKD stage III, HTN, HLD who presents to the emergency department for shortness of breath. He was apparently well until two days ago when he noticed that he was more short of breath during exertion than usual. His , who is at bedside, state she noticed that his hand and legs were swelling during that time as well. His shortness of breath also occurs when laying flat. He received IV Bumex in the ED and noticed improvement of his dyspnea. He denies any fever, chills, cough, sick contacts, wheezing, CP, PND, bendopnea, generalized pain, trauma/falls, N/V, abdominal pain, or complaints. Principal Diagnosis Heart Failure Exacerbation Discharge Exam GA: well groomed, well nourished in no apparent distress sitting upright in chair. AAOx3 HEENT: head normocephalic, atraumatic. EOMI RESP: no tachypnea, normal chest wall mechanics, clear lung sounds CARDIOVASCULAR: S1 and S2 heard. No murmurs, rubs, or gallops. Radial pulses 2+ b/l irregularly irregular MSK: no gross abnormalities or focal deficits SKIN: warm, dry, trace leg edema PSYCH: appropriate mood and affect NEURO: no focal deficits. speech fluent Discharge Data Allergies Allergy/AdvReac Type Severity Reaction Status Date / Time colchicine AdvReac Unknown contraindicated Verified 04/19/25 10:55 due to kidney disease COVID-19 vaccine, mRNA, AdvReac Unknown probable Verified 04/19/25 10:55 [id number], L reaction: [From [place] (PF)] throat swelling Consultations 06/16/25 11:55 ED Decision to Admit Stat Hospital Course (1) Acute exacerbation of chronic heart failure: (2) Chronic heart failure with preserved ejection fraction (HFpEF): (3) Dyspnea: (4) Sleep apnea treated with continuous positive airway pressure (CPAP): (5) Cardiac pacemaker in situ: (6) Atrial fibrillation: (7) CKD (chronic kidney disease), stage III: (8) ASCVD (arteriosclerotic cardiovascular disease): Plan Mr. Dolan is an 85yo gentleman with PMH of HFpEF, A-fib, NAHEED on CPAP, sick si nus syndrome with pacemaker, chronic LBBB, CKD stage III, HTN, HLD who presents to the emergency department for shortness of breath. S/p IV Bumex in ED and notes improvement of breathing. He is currently being managed for acute heart failure exacerbation. #Heart Failure Exacerbation #HFpEF #Dyspnea EKG without overt acute ischemia. CXR demonstrates pulmonary edema and small pleural effusions. BNP 108 (BMI may lower BNP), Trop 9 Pt adamant he feels like his baseline today, his sx fully resolved, and wants to go home. Denies fever, cough, SOB, CP, abdominal, or complaints. -continue home dose torsemide 80mg daily -continue home eplerenone 12.5mg q72h -continue home metoprolol succinate 50mg bid -JOSE R/ARB deferred due to recurrent FELI as per outpatient nephrology note -additional GDMT held due to soft BPs -pt admits to inconsistently checking daily weights, encourage keeping daily log and notifying PCP if weight increases more than 2lbs in 24hrs. pt stated his weight has been about his baseline over the last couple weeks -encourage heart healthy, low sodium diet -encourage weight loss and ambulation with walker as tolerated #Hypokalemia K 3.2 -s/p 40mEq of PO KCl this admission -continue daily 40mEq PO of KCl as previous prescribed -should be monitored as outpatient #Chronic Atrial Fibrillation currently rate controlled -continue Eliquis bid for anticoagulation -continue rate control with metoprolol #NAHEED -continue CPAP at night #HTN -continue meds as above #HLD -continue home atorvastatin #Hypothyroidism -TSH 6.3, T4 wnl -continue levothyroxine 75mcg daily #CKD -card processing clerk 2.08 (baseline 1.8-2) Plan to discharge home. Continue ambulation with walker. Close follow-up with PCP outpatient. Total Time Total Time Spent Total Time Spent (In Minutes): please see attending attestation Discharge Plan Discharge Items Patient Disposition: Home - Self-Care Reason For Visit: SHORTNESS OF BREATH Discharge Diagnosis: Heart Failure Exacerbation Condition on Discharge: Fair Activity: Resume your previous activity Non-emergency contact: Primary Care Provider Call non-emergency contact if: your symptoms worsen and you have a fever Follow-up/Referrals: Telma Jacobs CRNP [Primary Care Provider] - Diet: Heart Healthy and Low Sodium (2gm) Addtl Attending Provider Instructions: You were admitted to the hospital for shortness of breath and hand/leg swelling associated with heart failure exacerbation. You were treated with a water pill called bumex and your symptoms resolved. Your potassium was also a little low and you were given potassium while here in the hospital to help replete your numbers. You were deemed safe for discharge when your symptoms resolved and your status was at your baseline.. Medications Your medication list has been reviewed and reconciled. An updated list is included with your discharge paperwork; please review this list closely and make note of any changes. We have not made any changes to your home medications, please continue them as prescribed. * Please monitor your weights frequently and write them down in a log to provide to your doctors. If you weight increases by more than 2lbs in 24hrs then please call your PCP. * Please adhere to a heart healthy, low salt diet unless instructed by another doctor * Please continue to take your potassium supplement as prescribed Take your medications as instructed; do not skip a dose. Make sure all of your doctors know every medicine you are taking (including [id number] medicines, vitamins, and supplements). Call your PCP before taking any new medicines because some of these may interact with your current medications, or may make your symptoms worse. Follow-up appointments: Make a follow-up appointment with your PCP within the next week. It is very important that you follow up with them shortly after discharge from the hospital. Keep all your follow-up appointments as already scheduled. If you cannot make an appointment, notify your provider. Please bring a copy of this discharge summary with you to your next office appointment so that your provider can review it at that time and stay updated on your hospitalization and potential changes in your care. Contact your PCP if your symptoms return or worsen. Call 911 or go to the ER if you experience any of the following: Sudden, severe abdominal pain or nausea/vomiting Severe chest pain, or chest pain that radiates (moves) to your jaw or arm Sudden, severe shortness of breath or difficulty breathing Thank you for allowing us to participate in your care. Pending Studies at Discharge: No Stand-Alone Forms: My [facility], Smoking Cessation Medications and DC Order Prescriptions: Continued albuterol sulfate 90 mcg/actuation HFA aerosol inhaler 2 puff inhalation QID PRN (Reason: Shortness Of Breath Or Wheezing) acyclovir 400 mg tablet 400 mg PO BID calcitriol 0.25 mcg capsule 0.25 mcg PO DAILY Qty: 90 2RF terazosin 2 mg capsule 2 mg PO HS eplerenone 25 mg tablet 12.5 mg PO [id number] Rx Instructions: 12.5 mg orally; Take on Mon/Wed/Fri omeprazole 40 mg Capsule,Delayed Release(Dr/Ec) 40 mg PO DAILYBB allopurinol 300 mg Tablet 0 mg PO QAM Rx Instructions: UNABLE TO CONFIRM atorvastatin 10 mg tablet 0 mg PO QAM Rx Instructions: TAKE HALF A TABLET DAILY, UNABLE TO CONFIRM potassium chloride 20 mEq tablet extended release 40 meq PO QAM Rx Instructions: take 2 tablet dose cyanocobalamin (vitamin B-12) 1,000 mcg Tablet 1,000 mcg PO Q2D triamcinolone acetonide 0.1 % cream 1 applic TOPICAL BID PRN (Reason: flare up) montelukast 10 mg tablet 10 mg PO QAM metoprolol succinate 50 mg tablet extended release 24 hr 50 mg PO BID levothyroxine 75 mcg tablet 75 mcg PO DAILYBB duloxetine 60 mg capsule,delayed release(DR/EC) 60 mg PO QAM trazodone 100 mg Tablet 200 mg PO HS torsemide 20 mg tablet 40 mg PO QAM magnesium oxide 400 mg magnesium capsule 400 mg PO AMHS duloxetine 30 mg capsule,delayed release(DR/EC) 30 mg PO QAM Eliquis 2.5 mg tablet 2.5 mg PO AMHS calcium citrate 250 mg calcium tablet 250 mg PO AMHS Discharge Orders: Discharge Order (Routine); Ordered 06/17/25 Ordered By: Wade Christie/Other Patient Handouts: Torsemide Oral Tablet Admission Data Admit Date/Time: 06/16/25 14:29 Attending Provider: Wade Michaels Admit Provider: Wade Young Primary Care Provider: Telma Jacobs Other Providers: Aleida Perez Other Interventions: Discharge Summary Assessment (RN) Last Done: 06/17/25 15:17 Supervising Physician Co-Signing Physician Notes Attending attestation Pt seen and examined in concert with Dr. Young. In agreement with the documented findings as noted in the resident documentation with any exceptions or additions as noted here. Sitting in chair at bedside at subjective baseline per patient. Able to ambulate to restroom using walker without symptoms, which is similar to home. VS as noted. On examination, S1/S2 nl RRR no MCG. CTAB. Abd NT/ND BS+ve. minimal b/l LE edema while seated for 1 hour. HFpEF with dyspnea - return to clinical baseline overnight. Continue home torsemide, eplerenone, metoprolol. Strongly encourage daily weights with precuations for changes and contact care team. Else see resident documentation as noted. Total attending physician time spent with this patient's care on the day of discharge: 39 minutes Resident Activity Tracking Resident Involvement: Resident Care Provided Care Provided: Adult Hospital Medicine
== END 2025-06-17 15:44 | disposition home or self-care (01) | DRG 291 ==
LOC: ED 09:34 → 2W 14:29 → INTOOBSV 14:29 → SUATTDRO 14:29 → 2W 18:32